=== PATIENT | female | born 1960 | race Caucasian/White ===

== ENCOUNTER 2017-04-22 14:30 | Outpatient (RCR) | payer MEDICARE, SELFPAY ==
[2017-03-31 00:57] VITALS: BP 109/81; PULSE 81; RESP 18; TEMP 36.2; BMI 41.1
[2017-04-01 14:43] VITALS: BP 139/79; PULSE 80; RESP 18; TEMP 36.9; BMI 41.1
--- NOTE | 2017-04-01 16:13 | PCM.WC.PN ---
(1) Non-pressure chronic ulcer of other part of right foot with necrosis of bone Status: Acute Current Visit: Yes Code(s): L97.514 - Non-pressure chronic ulcer of other part of right foot with necrosis of bone (2) Type 2 diabetes mellitus with foot ulcer Status: Acute Current Visit: Yes Qualifiers: Diabetes mellitus equipment operator intermodal yard insulin use: unspecified equipment operator intermodal yard insulin use status Code(s): E11.621 - Type 2 diabetes mellitus with foot ulcer; L97.509 - Non-pressure chronic ulcer of other part of unspecified foot with unspecified severity (3) Type 2 diabetes mellitus with diabetic peripheral angiopathy with gangrene Status: Chronic Current Visit: Yes Qualifiers: Diabetes mellitus equipment operator intermodal yard insulin use: unspecified equipment operator intermodal yard insulin use status Code(s): E11.52 - Type 2 diabetes mellitus with diabetic peripheral angiopathy with gangrene (4) Type 2 diabetes mellitus with diabetic polyneuropathy Status: Acute Current Visit: Yes Qualifiers: Diabetes mellitus half-way insulin use: unspecified equipment operator intermodal yard insulin use status Qualified Code(s): E11.42 - Type 2 diabetes mellitus with diabetic polyneuropathy Code(s): E11.42 - Type 2 diabetes mellitus with diabetic polyneuropathy Type of Wound Date of Service: 04/01/17 Chief Complaint: Ulcer R 5th toe, Arizmendi grade 4 History of Wound: Has been applying collagen hydrogel BID. Had angiogram with intervention by Dr. Robbins on , 01/09. She continues to smoke >1 pack of cigarettes per day, but states she is trying to reduce how much she smokes. Will not wear an open-toed shoe, but states she is offloading with a loose-fitting moccasin. Notes improvement. Saw infectious disease physician, he started her on clindamycin, but she has stopped taking it due to yeast infection. She has not yet followed up with vascular surgery or ID--vascular surgery f/u scheduled for March. Still did not notify ID that she stopped taking clindamycin, and states she is not going back to his office. Cultures from last visit revealed staph epi only--no atbx given. Improved with no s/s of acute bacterial infection noted today. Progress of Wound: Improved. - Physical Exam Vital Signs Temp Pulse Resp BP 98.4 F 80 18 139/79 H 04/01/17 14:43 04/01/17 14:43 04/01/17 14:43 04/01/17 14:43 General: Alert, Oriented x3, Cooperative, No apparent distress Skin: Ulcer/ Wound - Tip of R 5th toe with no erythema, no malodor, no pus, no calor, no TTP. No clinical signs of acute bacterial infection noted. See nurse's wound assessment. Wound Measurements and Assessment - Nurse 1 - General Ulcer Measurement Start: 04/01/17 14:43 Freq: Status: Active Protocol: Activity Type Activity Date Activity User E-Sign Co-Sign Detail Recorded Client Recorded Date Recorded By Document 04/01/17 14:43 DL [id number] 04/01/17 14:47 DL 04/01/17 14:43 Wound Center Nurse 1 [Ulcer Assessment Protocol: WC.WD.LOC] #1 Right 5th Toe -Current Size (cm) - Length 0.2 -Current Size (cm) - Width 0.2 -Current Size (cm) - Depth 0.1 -Total Square Cm 0.04 -Photo Taken No -Exudate Amt None Present (0 %) -Wound Margin Thickened -Granulation Amt Small (1-33%) -Granulation Quality [place] -Necrosis Amt Large (67-100%) -Necrotic Tissue Type Adherent Slough -Structure Exposed N/A -Texture (Loly-wound Skin Appearance) No Abnormality -Moisture (Loly-wound Skin Appearance No Abnormality ) Dry/Scaly -Color (Loly-wound Skin Appearance) No Abnormality -Temperature (Loly-wound Skin No Abnormality Appearance) (Pt Warm) -Ulcer Cleansing Rinsed/ Irrigated with Saline -Foul Odor after Cleansing No -Anesthetic Used 4% Lidocaine Solution - Nurse 2 - General Ulcer CM Notes Start: 04/01/17 14:43 Freq: Status: Active Protocol: Activity Type Activity Date Activity User E-Sign Co-Sign Detail Recorded Client Recorded Date Recorded By Document 04/01/17 15:23 MW [id number] 04/01/17 15:25 MW 04/01/17 15:23 Wound Center Nurse 2 [Procedure/Treatment] -Time 15:23 -Correct Patient Yes -Correct Side, Site, Position Yes -Correct Procedure Yes -Procedure Performed Yes -Type of Procedure Debridement -Clinical Debridement Subcutaneous -Post Debridement Size (cm) - Length 0.3 -Post Debridement Size (cm) - Width 0.3 -Post Debridement Size (cm) - Depth 0.1 -Total Square Cm 0.09 -Wound/Ulcer Outcome Not Healed -Ulcer Cleansing Rinsed/ Irrigated with Saline -Foul Odor after Cleansing No -Bioengineered Tissue No -Cetacaine [place] No -Bleeding Controlled with Pressure -Treatment Response Procedure Tolerated Well [See Physician Procedure note for Specifics] Pain Scale: 0-10 Numeric [Pain] -Is Patient Pain Free? Yes Debridement Note Post-Debridement Measurements/Treatment WC - Nurse 2 - General Ulcer CM Notes Start: 04/01/17 14:43 Freq: Status: Active Protocol: Activity Type Activity Date Activity User E-Sign Co-Sign Detail Recorded Client Recorded Date Recorded By Document 04/01/17 15:23 MW [id number] 04/01/17 15:25 MW 04/01/17 15:23 Wound Center Nurse 2 #1 Right 5th Toe -Time 15:23 -Correct Patient Yes -Correct Side, Site, Position Yes -Correct Procedure Yes -Procedure Performed Yes -Type of Procedure Debridement -Clinical Debridement Subcutaneous -Post Debridement Size (cm) - Length 0.3 -Post Debridement Size (cm) - Width 0.3 -Post Debridement Size (cm) - Depth 0.1 -Total Square Cm 0.09 -Wound/Ulcer Outcome Not Healed -Ulcer Cleansing Rinsed/ Irrigated with Saline -Foul Odor after Cleansing No -Bioengineered Tissue No -Cetacaine [place] No -Bleeding Controlled with Pressure -Treatment Response Procedure Tolerated Well Pain Scale: 0-10 Numeric Is Patient Pain Free? Yes Wound debrided: R 5th toe Laterality: Right Wound Grade/Stage: Arizmendi grade 4 DFU Type of Debridement: Excisional debridement Anesthesia Used: 4% Lidocaine Solution Depth: Down to and including healthy tissue, in the subcutaneous layer Percentage of wound debrided: 100 Instrument Used: #15 blade Tissue Removed: fibrous slough, hyperkeratotic tissue Severity: Fat Layer Exposed Amount of bleeding with debridement: Mild Bleeding Controlled with: Pressure, Compression and gauze Patient tolerated procedure well Assessment/Plan Active Problems 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) Type 2 diabetes mellitus with foot ulcer (Acute) Non-pressure chronic ulcer of other part of right foot with necrosis of bone (Acute) Type 2 diabetes mellitus with diabetic polyneuropathy (Acute) Assessment: See diagnoses. Plan: SQ/Excisional debridement R 5th toe ulcer performed today as above. Advised that she notify Dr. Trammell's office that she stopped taking atbx. Smoking cessation has been recommended. Weight loss has been recommended. She has been advised to collaborate with her primary care physician to discuss weight loss options as well as quitting smoking. Referral to rotary cutter/dietitan provided previously--pt has heard from them, but states she did not schedule an appointment yet due to money concerns. Underwent revascularization procedure by Dr. Robbins (01/09). Improved. Cont collagen hydrogel BID followed by dry gauze dressing. Recommend offloading with open-toed surgical shoe, but pt refuses to do this.
--- NOTE | 2017-04-01 16:18 | PN.PCM_ITS ---
(1) Non-pressure chronic ulcer of other part of right foot with necrosis of bone Status: Acute Current Visit: Yes Code(s): L97.514 - Non-pressure chronic ulcer of other part of right foot with necrosis of bone (2) Type 2 diabetes mellitus with foot ulcer Status: Acute Current Visit: Yes Qualifiers: Diabetes mellitus ferry terminal agent insulin use: unspecified [place] insulin use status Code(s): E11.621 - Type 2 diabetes mellitus with foot ulcer; L97.509 - Non- pressure chronic ulcer of other part of unspecified foot with unspecified severity (3) Type 2 diabetes mellitus with diabetic peripheral angiopathy with gangrene Status: Chronic Current Visit: Yes Qualifiers: Diabetes mellitus detention insulin use: unspecified detention insulin use status Code(s): E11.52 - Type 2 diabetes mellitus with diabetic peripheral angiopathy with gangrene (4) Type 2 diabetes mellitus with diabetic polyneuropathy Status: Acute Current Visit: Yes Qualifiers: Diabetes mellitus ferry terminal agent insulin use: unspecified detention insulin use status Qualified Code(s): E11.42 - Type 2 diabetes mellitus with diabetic polyneuropathy Code(s): E11.42 - Type 2 diabetes mellitus with diabetic polyneuropathy Type of Wound Date of Service: 04/01/17 Chief Complaint: Ulcer R 5th toe, Arizmendi grade 4 History of Wound: Has been applying collagen hydrogel BID. Had angiogram with intervention by Dr. Robbins on , 01/09. She continues to smoke >1 pack of cigarettes per day, but states she is trying to reduce how much she smokes. Will not wear an open-toed shoe, but states she is offloading with a loose- fitting moccasin. Notes improvement. Saw infectious disease physician, he started her on clindamycin, but she has stopped taking it due to yeast infection. She has not yet followed up with vascular surgery or ID--vascular surgery f/u scheduled for March. Still did not notify ID that she stopped taking clindamycin, and states she is not going back to his office. Cultures from last visit revealed staph epi only--no atbx given. Improved with no s/s of acute bacterial infection noted today. Progress of Wound: Improved. - Physical Exam Vital Signs Temp Pulse Resp BP 98.4 F 80 18 139/79 H 04/01/17 14:43 04/01/17 14:43 04/01/17 14:43 04/01/17 14:43 General: Alert, Oriented x3, Cooperative, No apparent distress Skin: Ulcer/ Wound - Tip of R 5th toe with no erythema, no malodor, no pus, no calor, no TTP. No clinical signs of acute bacterial infection noted. See nurse 's wound assessment. Wound Measurements and Assessment - Nurse 1 - General Ulcer Measurement Start: 04/01/17 14:43 Freq: Status: Active Protocol: Activity Type Activity Date Activity User E-Sign Co-Sign Detail Recorded Client Recorded Date Recorded By Document 04/01/17 14:43 DL [id number] 04/01/17 14:47 DL 04/01/17 14:43 Wound Center Nurse 1 [Ulcer Assessment Protocol: WC.WD.LOC] #1 Right 5th Toe -Current Size (cm) - Length 0.2 -Current Size (cm) - Width 0.2 -Current Size (cm) - Depth 0.1 -Total Square Cm 0.04 -Photo Taken No -Exudate Amt None Present (0 %) -Wound Margin Thickened -Granulation Amt Small (1-33%) -Granulation Quality [place] -Necrosis Amt Large (67-100%) -Necrotic Tissue Type Adherent Slough -Structure Exposed N/A -Texture (Loly-wound Skin Appearance) No Abnormality -Moisture (Loly-wound Skin Appearance No Abnormality ) Dry/Scaly -Color (Loly-wound Skin Appearance) No Abnormality -Temperature (Loly-wound Skin No Abnormality Appearance) (Pt Warm) -Ulcer Cleansing Rinsed/ Irrigated with Saline -Foul Odor after Cleansing No -Anesthetic Used 4% Lidocaine Solution - Nurse 2 - General Ulcer CM Notes Start: 04/01/17 14:43 Freq: Status: Active Protocol: Activity Type Activity Date Activity User E-Sign Co-Sign Detail Recorded Client Recorded Date Recorded By Document 04/01/17 15:23 MW [id number] 04/01/17 15:25 MW 04/01/17 15:23 Wound Center Nurse 2 [Procedure/Treatment] -Time 15:23 -Correct Patient Yes -Correct Side, Site, Position Yes -Correct Procedure Yes -Procedure Performed Yes -Type of Procedure Debridement -Clinical Debridement Subcutaneous -Post Debridement Size (cm) - Length 0.3 -Post Debridement Size (cm) - Width 0.3 -Post Debridement Size (cm) - Depth 0.1 -Total Square Cm 0.09 -Wound/Ulcer Outcome Not Healed -Ulcer Cleansing Rinsed/ Irrigated with Saline -Foul Odor after Cleansing No -Bioengineered Tissue No -Cetacaine [place] No -Bleeding Controlled with Pressure -Treatment Response Procedure Tolerated Well [See Physician Procedure note for Specifics] Pain Scale: 0-10 Numeric [Pain] -Is Patient Pain Free? Yes Debridement Note Post-Debridement Measurements/Treatment WC - Nurse 2 - General Ulcer CM Notes Start: 04/01/17 14:43 Freq: Status: Active Protocol: Activity Type Activity Date Activity User E-Sign Co-Sign Detail Recorded Client Recorded Date Recorded By Document 04/01/17 15:23 MW [id number] 04/01/17 15:25 MW 04/01/17 15:23 Wound Center Nurse 2 #1 Right 5th Toe -Time 15:23 -Correct Patient Yes -Correct Side, Site, Position Yes -Correct Procedure Yes -Procedure Performed Yes -Type of Procedure Debridement -Clinical Debridement Subcutaneous -Post Debridement Size (cm) - Length 0.3 -Post Debridement Size (cm) - Width 0.3 -Post Debridement Size (cm) - Depth 0.1 -Total Square Cm 0.09 -Wound/Ulcer Outcome Not Healed -Ulcer Cleansing Rinsed/ Irrigated with Saline -Foul Odor after Cleansing No -Bioengineered Tissue No -Cetacaine [place] No -Bleeding Controlled with Pressure -Treatment Response Procedure Tolerated Well Pain Scale: 0-10 Numeric Is Patient Pain Free? Yes Wound debrided: R 5th toe Laterality: Right Wound Grade/Stage: Arizmendi grade 4 DFU Type of Debridement: Excisional debridement Anesthesia Used: 4% Lidocaine Solution Depth: Down to and including healthy tissue, in the subcutaneous layer Percentage of wound debrided: 100 Instrument Used: #15 blade Tissue Removed: fibrous slough, hyperkeratotic tissue Severity: Fat Layer Exposed Amount of bleeding with debridement: Mild Bleeding Controlled with: Pressure, Compression and gauze Patient tolerated procedure well Assessment/Plan Active Problems Type 2 diabetes mellitus with diabetic peripheral angiopathy with gangrene ( Chronic) Type 2 diabetes mellitus with foot ulcer (Acute) Non-pressure chronic ulcer of other part of right foot with necrosis of bone ( Acute) Type 2 diabetes mellitus with diabetic polyneuropathy (Acute) Assessment: See diagnoses. Plan: SQ/Excisional debridement R 5th toe ulcer performed today as above. Advised that she notify Dr. Trammell's office that she stopped taking atbx. Smoking cessation has been recommended. Weight loss has been recommended. She has been advised to collaborate with her primary care physician to discuss weight loss options as well as quitting smoking. Referral to safety technician/ [facility]itan provided previously--pt has heard from them, but states she did not schedule an appointment yet due to money concerns. Underwent revascularization procedure by Dr. Robbins (01/09). Improved. Cont collagen hydrogel BID followed by dry gauze dressing. Recommend offloading with open-toed surgical shoe, but pt refuses to do this.
[2017-04-08 14:18] VITALS: BP 109/74; PULSE 90; RESP 16; TEMP 36; BMI 41.1
--- NOTE | 2017-04-08 16:07 | PCM.WC.PN ---
(1) Non-pressure chronic ulcer of other part of right foot with necrosis of bone Status: Acute Current Visit: Yes Code(s): L97.514 - Non-pressure chronic ulcer of other part of right foot with necrosis of bone (2) Type 2 diabetes mellitus with foot ulcer Status: Acute Current Visit: Yes Qualifiers: Diabetes mellitus intermodal truck driver insulin use: unspecified intermodal truck driver insulin use status Code(s): E11.621 - Type 2 diabetes mellitus with foot ulcer; L97.509 - Non-pressure chronic ulcer of other part of unspecified foot with unspecified severity (3) Type 2 diabetes mellitus with diabetic peripheral angiopathy with gangrene Status: Chronic Current Visit: Yes Qualifiers: Diabetes mellitus intermodal truck driver insulin use: unspecified intermodal truck driver insulin use status Code(s): E11.52 - Type 2 diabetes mellitus with diabetic peripheral angiopathy with gangrene (4) Type 2 diabetes mellitus with diabetic polyneuropathy Status: Acute Current Visit: Yes Qualifiers: Diabetes mellitus penitentiary insulin use: unspecified intermodal truck driver insulin use status Qualified Code(s): E11.42 - Type 2 diabetes mellitus with diabetic polyneuropathy Code(s): E11.42 - Type 2 diabetes mellitus with diabetic polyneuropathy Type of Wound Date of Service: 04/08/17 Chief Complaint: Ulcer R 5th toe, Arizmendi grade 4 History of Wound: Has been applying collagen hydrogel BID. Had angiogram with intervention by Dr. Robbins on , 01/09. She continues to smoke >1 pack of cigarettes per day, but states she is trying to reduce how much she smokes. Will not wear an open-toed shoe, but states she is offloading with a loose-fitting moccasin. Notes no improvement this week. Saw infectious disease physician, he started her on clindamycin, but she has stopped taking it due to yeast infection. She has not yet followed up with vascular surgery or ID--vascular surgery f/u scheduled for March. Still did not notify ID that she stopped taking clindamycin, and states she is not going back to his office. Re-apply jaden, gently pack into wound, change 3 times weekly. Continue to apply collagen hydrogel BID. Progress of Wound: Stable. - Physical Exam Vital Signs Temp Pulse Resp BP 96.8 F L 90 16 109/74 04/08/17 14:18 04/08/17 14:18 04/08/17 14:18 04/08/17 14:18 Wound Measurements and Assessment - Nurse 1 - General Ulcer Measurement Start: 04/01/17 14:43 Freq: Status: Active Protocol: Activity Type Activity Date Activity User E-Sign Co-Sign Detail Recorded Client Recorded Date Recorded By Document 04/08/17 14:18 JF [id number] 04/08/17 14:19 JF 04/08/17 14:18 Wound Center Nurse 1 [Ulcer Assessment Protocol: IRON.WD.LOC] #1 Right 5th Toe -Combined with other wound No -Current Size (cm) - Length 0.3 -Current Size (cm) - Width 0.5 -Current Size (cm) - Depth 0.2 -Total Square Cm 0.15 -Photo Taken No -Epithelialization Medium 34-66% -Tunneling No -Undermining/Tunneling No -Circular Undermining No -Exudate Amt None Present (0 %) -Wound Margin Flat & Intact -Granulation Amt Medium (34-66%) -Granulation Quality [place] -Slough/Fibrin Yes -Necrosis Amt Small (1-33%) -Necrotic Tissue Type Adherent Slough -Structure Exposed N/A -Texture (Loly-wound Skin Appearance) Assessed Scarring -Moisture (Loly-wound Skin Appearance Assessed ) Dry/Scaly -Color (Loly-wound Skin Appearance) Assessed -Temperature (Loly-wound Skin No Abnormality Appearance) (Pt Warm) -Tenderness on Palpation (Loly-wound No Skin Appearance) -Ulcer Cleansing Rinsed/ Irrigated with Saline -Foul Odor after Cleansing No -Anesthetic Used 4% Lidocaine Solution [Edema Assessment] -Lower Limb Edema Present NA - Nurse 2 - General Ulcer CM Notes Start: 04/01/17 14:43 Freq: Status: Active Protocol: Activity Type Activity Date Activity User E-Sign Co-Sign Detail Recorded Client Recorded Date Recorded By Document 04/08/17 14:55 MW [id number] 04/08/17 14:56 MW 04/08/17 14:55 Wound Center Nurse 2 [Procedure/Treatment] #1 Right 5th Toe -Time 14:55 -Correct Patient Yes -Correct Side, Site, Position Yes -Correct Procedure Yes -Procedure Performed Yes -Type of Procedure Debridement -Clinical Debridement Subcutaneous -Post Debridement Size (cm) - Length 0.3 -Post Debridement Size (cm) - Width 0.3 -Post Debridement Size (cm) - Depth 0.1 -Total Square Cm 0.09 -Wound/Ulcer Outcome Not Healed -Ulcer Cleansing Rinsed/ Irrigated with Saline -Foul Odor after Cleansing No -Bioengineered Tissue No -Cetacaine [place] No -Bleeding Controlled with Pressure -Treatment Response Procedure Tolerated Well [See Physician Procedure note for Specifics] Pain Scale: 0-10 Numeric [Pain] -Is Patient Pain Free? No Debridement Note Post-Debridement Measurements/Treatment WC - Nurse 2 - General Ulcer CM Notes Start: 04/01/17 14:43 Freq: Status: Active Protocol: Activity Type Activity Date Activity User E-Sign Co-Sign Detail Recorded Client Recorded Date Recorded By Document 04/01/17 15:23 MW [id number] 04/01/17 15:25 MW Document 04/08/17 14:55 MW [id number] 04/08/17 14:56 MW 04/01/17 04/08/17 15:23 14:55 Wound Center Nurse 2 #1 Right 5th Toe -Time 15:23 14:55 -Correct Patient Yes Yes -Correct Side, Site, Position Yes Yes -Correct Procedure Yes Yes -Procedure Performed Yes Yes -Type of Procedure Debridement Debridement -Clinical Debridement Subcutaneous Subcutaneous -Post Debridement Size (cm) - Length 0.3 0.3 -Post Debridement Size (cm) - Width 0.3 0.3 -Post Debridement Size (cm) - Depth 0.1 0.1 -Total Square Cm 0.09 0.09 -Wound/Ulcer Outcome Not Healed Not Healed -Ulcer Cleansing Rinsed/ Rinsed/ Irrigated with Irrigated with Saline Saline -Foul Odor after Cleansing No No -Bioengineered Tissue No No -Cetacaine [place] No No -Bleeding Controlled with Pressure Pressure -Treatment Response Procedure Procedure Tolerated Well Tolerated Well Pain Scale: 0-10 Numeric Is Patient Pain Free? Yes No Assessment/Plan Active Problems 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) Type 2 diabetes mellitus with foot ulcer (Acute) Non-pressure chronic ulcer of other part of right foot with necrosis of bone (Acute) Type 2 diabetes mellitus with diabetic polyneuropathy (Acute) Assessment: See diagnoses. Plan: SQ/Excisional debridement R 5th toe ulcer performed today as above. Advised that she notify Dr. Trammell's office that she stopped taking atbx. Smoking cessation has been recommended. Weight loss has been recommended. She has been advised to collaborate with her primary care physician to discuss weight loss options as well as quitting smoking. Referral to screen vent binder/dietitan provided previously--pt has heard from them, but states she did not schedule an appointment yet due to money concerns. Underwent revascularization procedure by Dr. Robbins (01/09). Improved. Cont collagen hydrogel BID followed by dry gauze dressing. Recommend offloading with open-toed surgical shoe, but pt refuses to do this.
[2017-04-15 14:35] VITALS: BP 127/69; PULSE 79; RESP 20; TEMP 36.3; BMI 41.1
--- NOTE | 2017-04-15 15:31 | PN.PCM_ITS ---
(1) Non-pressure chronic ulcer of other part of right foot with necrosis of bone Status: Acute Current Visit: Yes Code(s): L97.514 - Non-pressure chronic ulcer of other part of right foot with necrosis of bone (2) Type 2 diabetes mellitus with foot ulcer Status: Acute Current Visit: Yes Qualifiers: Diabetes mellitus exterminator helper insulin use: unspecified half-way insulin use status Code(s): E11.621 - Type 2 diabetes mellitus with foot ulcer; L97.509 - Non- pressure chronic ulcer of other part of unspecified foot with unspecified severity (3) Type 2 diabetes mellitus with diabetic peripheral angiopathy with gangrene Status: Chronic Current Visit: Yes Qualifiers: Diabetes mellitus half-way insulin use: unspecified half-way insulin use status Code(s): E11.52 - Type 2 diabetes mellitus with diabetic peripheral angiopathy with gangrene (4) Type 2 diabetes mellitus with diabetic polyneuropathy Status: Acute Current Visit: Yes Qualifiers: Diabetes mellitus exterminator helper insulin use: unspecified half-way insulin use status Qualified Code(s): E11.42 - Type 2 diabetes mellitus with diabetic polyneuropathy Code(s): E11.42 - Type 2 diabetes mellitus with diabetic polyneuropathy Type of Wound Date of Service: 04/15/17 Chief Complaint: Ulcer R 5th toe, Arizmendi grade 4 History of Wound: Has been applying collagen hydrogel BID. Had angiogram with intervention by Dr. Robbins on , 01/09. She continues to smoke >1 pack of cigarettes per day, but states she is trying to reduce how much she smokes. Will not wear an open-toed shoe, but states she is offloading with a loose- fitting moccasin. Notes improvement this week. Saw infectious disease physician, he started her on clindamycin, but she has stopped taking it due to yeast infection. She has not yet followed up with vascular surgery or ID-- vascular surgery f/u scheduled for March. Still did not notify ID that she stopped taking clindamycin, and states she is not going back to his office despite my advice to do so. Re-apply jaden, gently pack into wound, change 3 times weekly. Continue to apply collagen hydrogel BID. Progress of Wound: Improved. - Physical Exam Vital Signs Temp Pulse Resp BP 97.3 F L 79 20 H 127/69 H 04/15/17 14:35 04/15/17 14:35 04/15/17 14:35 04/15/17 14:35 General: Alert, Oriented x3, Cooperative, No apparent distress Skin: Ulcer/ Wound - R 5th toe with no erythema, no calor, no purulent drainage , no malodor, no TTP of ulcer or rick-ulcer area. No clinical signs of acute bacterial infection noted. See wound/edema assessment below. Wound Measurements and Assessment WC - Nurse 1 - General Ulcer Measurement Start: 04/01/17 14:43 Freq: Status: Active Protocol: Activity Type Activity Date Activity User E-Sign Co-Sign Detail Recorded Client Recorded Date Recorded By Document 04/15/17 14:35 JF [id number] 04/15/17 14:42 JF 04/15/17 14:35 Wound Center Nurse 1 [Ulcer Assessment Protocol: IRON.WD.LOC] #1 Right 5th Toe -Combined with other wound No -Current Size (cm) - Length 0.1 -Current Size (cm) - Width 0.1 -Current Size (cm) - Depth 0.1 -Total Square Cm 0.01 -Photo Taken No -Epithelialization Large 67-100% -Tunneling No -Undermining/Tunneling No -Circular Undermining No -Exudate Amt None Present (0 %) -Wound Margin Flat & Intact -Granulation Amt Medium (34-66%) -Granulation Quality Red -Slough/Fibrin Yes -Necrosis Amt Small (1-33%) -Necrotic Tissue Type Adherent Slough -Structure Exposed N/A -Texture (Rick-wound Skin Appearance) Assessed -Moisture (Rick-wound Skin Appearance Assessed ) Dry/Scaly -Color (Rick-wound Skin Appearance) Not Assessed -Temperature (Rick-wound Skin No Abnormality Appearance) (Pt Warm) -Tenderness on Palpation (Rick-wound No Skin Appearance) -Ulcer Cleansing Rinsed/ Irrigated with Saline -Foul Odor after Cleansing No -Anesthetic Used 4% Lidocaine Solution [Edema Assessment] -Lower Limb Edema Present Yes -Right Calf (cm) 39.3 -Right Ankle (cm) 23.6 - Nurse 2 - General Ulcer CM Notes Start: 04/01/17 14:43 Freq: Status: Active Protocol: Activity Type Activity Date Activity User E-Sign Co-Sign Detail Recorded Client Recorded Date Recorded By Document 04/15/17 15:07 MW [id number] 04/15/17 15:08 MW 04/15/17 15:07 Wound Center Nurse 2 [Procedure/Treatment] #1 Right 5th Toe -Time 15:07 -Correct Patient Yes -Correct Side, Site, Position Yes -Correct Procedure Yes -Procedure Performed Yes -Type of Procedure Debridement -Clinical Debridement Subcutaneous -Post Debridement Size (cm) - Length 0.2 -Post Debridement Size (cm) - Width 0.2 -Post Debridement Size (cm) - Depth 0.1 -Total Square Cm 0.04 -Wound/Ulcer Outcome Not Healed -Ulcer Cleansing Rinsed/ Irrigated with Saline -Foul Odor after Cleansing No -Bioengineered Tissue No -Cetacaine [place] No -Bleeding Controlled with Pressure -Treatment Response Procedure Tolerated Well [See Physician Procedure note for Specifics] Pain Scale: 0-10 Numeric [Pain] -Is Patient Pain Free? Yes Debridement Note Post-Debridement Measurements/Treatment WC - Nurse 2 - General Ulcer CM Notes Start: 04/01/17 14:43 Freq: Status: Active Protocol: Activity Type Activity Date Activity User E-Sign Co-Sign Detail Recorded Client Recorded Date Recorded By Document 04/01/17 15:23 MW [id number] 04/01/17 15:25 MW Document 04/08/17 14:55 MW [id number] 04/08/17 14:56 MW Document 04/15/17 15:07 MW [id number] 04/15/17 15:08 MW 04/01/17 04/08/17 04/15/17 15:23 14:55 15:07 Wound Center Nurse 2 #1 Right 5th Toe -Time 15:23 14:55 15:07 -Correct Patient Yes Yes Yes -Correct Side, Site, Position Yes Yes Yes -Correct Procedure Yes Yes Yes -Procedure Performed Yes Yes Yes -Type of Procedure Debridement Debridement Debridement -Clinical Debridement Subcutaneous Subcutaneous Subcutaneous -Post Debridement Size (cm) - Length 0.3 0.3 0.2 -Post Debridement Size (cm) - Width 0.3 0.3 0.2 -Post Debridement Size (cm) - Depth 0.1 0.1 0.1 -Total Square Cm 0.09 0.09 0.04 -Wound/Ulcer Outcome Not Healed Not Healed Not Healed -Ulcer Cleansing Rinsed/ Rinsed/ Rinsed/ Irrigated with Irrigated with Irrigated with Saline Saline Saline -Foul Odor after Cleansing No No No -Bioengineered Tissue No No No -Cetacaine [place] No No No -Bleeding Controlled with Pressure Pressure Pressure -Treatment Response Procedure Procedure Procedure Tolerated Well Tolerated Well Tolerated Well Pain Scale: 0-10 Numeric Is Patient Pain Free? Yes No Yes Wound debrided: R 5th toe Laterality: Right Wound Grade/Stage: Arizmendi grade 4 DFU Type of Debridement: Selective debridement Anesthesia Used: 4% Lidocaine Solution Depth: Down to and including healthy tissue Percentage of wound debrided: 100 Instrument Used: 3mm curette Tissue Removed: fibrous slough Severity: Limited To Skin Breakdown Amount of bleeding with debridement: None Bleeding Controlled with: Pressure, Compression and gauze Patient tolerated procedure well Assessment/Plan Active Problems Type 2 diabetes mellitus with diabetic peripheral angiopathy with gangrene ( Chronic) Type 2 diabetes mellitus with foot ulcer (Acute) Non-pressure chronic ulcer of other part of right foot with necrosis of bone ( Acute) Type 2 diabetes mellitus with diabetic polyneuropathy (Acute) Assessment: See diagnoses. Plan: Selective/medical debridement R 5th toe ulcer performed today as above. Advised that she notify Dr. Trammell's office that she stopped taking atbx. Smoking cessation has been recommended. Weight loss has been recommended. She has been advised to collaborate with her primary care physician to discuss weight loss options as well as quitting smoking. Referral to auditor tax/ dietitan provided previously--pt has heard from them, but states she did not schedule an appointment yet due to money concerns. Underwent revascularization procedure by Dr. Robbins (01/09). Improved overall and improved this week. Cont collagen hydrogel BID followed by dry gauze dressing. Cont jaden to wound bed 3x/week as able. Recommend offloading with open-toed surgical shoe, but pt refuses to do this.
[2017-04-22 14:33] VITALS: BP 137/70; PULSE 77; RESP 20; TEMP 36.3; BMI 41.1
--- NOTE | 2017-04-22 15:45 | PCM.WC.PN ---
(1) Non-pressure chronic ulcer of other part of right foot with necrosis of bone Status: Acute Current Visit: Yes Code(s): L97.514 - Non-pressure chronic ulcer of other part of right foot with necrosis of bone (2) Type 2 diabetes mellitus with foot ulcer Status: Acute Current Visit: Yes Qualifiers: Diabetes mellitus care home insulin use: unspecified care home insulin use status Code(s): E11.621 - Type 2 diabetes mellitus with foot ulcer; L97.509 - Non-pressure chronic ulcer of other part of unspecified foot with unspecified severity (3) Type 2 diabetes mellitus with diabetic peripheral angiopathy with gangrene Status: Chronic Current Visit: Yes Qualifiers: Diabetes mellitus care home insulin use: unspecified intermediate card tender insulin use status Code(s): E11.52 - Type 2 diabetes mellitus with diabetic peripheral angiopathy with gangrene (4) Type 2 diabetes mellitus with diabetic polyneuropathy Status: Acute Current Visit: Yes Qualifiers: Diabetes mellitus care home insulin use: unspecified intermediate card tender insulin use status Qualified Code(s): E11.42 - Type 2 diabetes mellitus with diabetic polyneuropathy Code(s): E11.42 - Type 2 diabetes mellitus with diabetic polyneuropathy Type of Wound Date of Service: 04/22/17 Chief Complaint: Ulcer R 5th toe, Arizmendi grade 4 History of Wound: Has been applying collagen hydrogel BID. Had angiogram with intervention by Dr. Robbins on , 01/09. She continues to smoke >1 pack of cigarettes per day, but states she is trying to reduce how much she smokes. Will not wear an open-toed shoe, but states she is offloading with a loose-fitting moccasin. Notes ulcer appears to have healed this week. Saw infectious disease physician, he started her on clindamycin, but she has stopped taking it due to yeast infection. She has not yet followed up with ID--did see Dr. Robbins last week and he is not going to see her for 6 months, and noted at that time that her toe appeared healed. Still did not notify ID that she stopped taking clindamycin, and states she is not going back to his office despite my advice to do so. Progress of Wound: Healed. - Physical Exam Vital Signs Temp Pulse Resp BP 97.3 F L 77 20 H 137/70 H 04/22/17 14:33 04/22/17 14:33 04/22/17 14:33 04/22/17 14:33 General: Alert, Oriented x3, Cooperative, No apparent distress Skin: No breakdown, Ulcer/ Wound - previous ulceration R 5th toe covered with epithelial tissue and has healed. No redness, drainage, malodor, warmth, pain, or swelling. Wound Measurements and Assessment - Nurse 1 - General Ulcer Measurement Start: 04/01/17 14:43 Freq: Status: Active Protocol: Activity Type Activity Date Activity User E-Sign Co-Sign Detail Recorded Client Recorded Date Recorded By Document 04/22/17 14:33 DL [id number] 04/22/17 14:42 DL 04/22/17 14:33 Wound Center Nurse 1 [Ulcer Assessment Protocol: IRON.WD.LOC] #1 Right 5th Toe -Current Size (cm) - Length 0 -Current Size (cm) - Width 0 -Current Size (cm) - Depth 0 -Total Square Cm 0 -Photo Taken Yes -Exudate Amt None Present (0 %) -Wound Margin Flat & Intact -Granulation Amt Large (67-100%) -Granulation Quality Pale [place] -Necrosis Amt None Present (0 %) -Structure Exposed N/A -Texture (Loly-wound Skin Appearance) Scarring -Moisture (Loly-wound Skin Appearance Dry/Scaly ) -Color (Loly-wound Skin Appearance) No Abnormality -Temperature (Loly-wound Skin No Abnormality Appearance) (Pt Warm) -Tenderness on Palpation (Loly-wound No Skin Appearance) -Ulcer Cleansing Wound Cleanser -Foul Odor after Cleansing No -Anesthetic Used 4% Lidocaine Solution - Nurse 2 - General Ulcer CM Notes Start: 04/01/17 14:43 Freq: Status: Active Protocol: Activity Type Activity Date Activity User E-Sign Co-Sign Detail Recorded Client Recorded Date Recorded By Document 04/22/17 15:14 MW [id number] 04/22/17 15:16 MW 04/22/17 15:14 Wound Center Nurse 2 [Procedure/Treatment] -Time 15:14 -Correct Patient Yes -Correct Side, Site, Position Yes -Correct Procedure Yes -Procedure Performed No -Post Debridement Size (cm) - Length 0 -Post Debridement Size (cm) - Width 0 -Post Debridement Size (cm) - Depth 0 -Total Square Cm 0 -Wound/Ulcer Outcome Healed- Epithelialized -Ulcer Cleansing Not Cleansed -Foul Odor after Cleansing No -Bioengineered Tissue No -Cetacaine [place] No -Bleeding Controlled with NA -Treatment Response Procedure Tolerated Well [See Physician Procedure note for Specifics] Pain Scale: 0-10 Numeric [Pain] -Is Patient Pain Free? Yes Debridement Note Post-Debridement Measurements/Treatment WC - Nurse 2 - General Ulcer CM Notes Start: 04/01/17 14:43 Freq: Status: Active Protocol: Activity Type Activity Date Activity User E-Sign Co-Sign Detail Recorded Client Recorded Date Recorded By Document 04/01/17 15:23 MW [id number] 04/01/17 15:25 MW Document 04/08/17 14:55 MW [id number] 04/08/17 14:56 MW Document 04/15/17 15:07 MW [id number] 04/15/17 15:08 MW Document 04/22/17 15:14 MW [id number] 04/22/17 15:16 MW 04/01/17 04/08/17 04/15/17 15:23 14:55 15:07 Wound Center Nurse 2 #1 Right 5th Toe -Time 15:23 14:55 15:07 -Correct Patient Yes Yes Yes -Correct Side, Site, Position Yes Yes Yes -Correct Procedure Yes Yes Yes -Procedure Performed Yes Yes Yes -Type of Procedure Debridement Debridement Debridement -Clinical Debridement Subcutaneous Subcutaneous Subcutaneous -Post Debridement Size (cm) - Length 0.3 0.3 0.2 -Post Debridement Size (cm) - Width 0.3 0.3 0.2 -Post Debridement Size (cm) - Depth 0.1 0.1 0.1 -Total Square Cm 0.09 0.09 0.04 -Wound/Ulcer Outcome Not Healed Not Healed Not Healed -Ulcer Cleansing Rinsed/ Rinsed/ Rinsed/ Irrigated with Irrigated with Irrigated with Saline Saline Saline -Foul Odor after Cleansing No No No -Bioengineered Tissue No No No -Cetacaine [place] No No No -Bleeding Controlled with Pressure Pressure Pressure -Treatment Response Procedure Procedure Procedure Tolerated Well Tolerated Well Tolerated Well Pain Scale: 0-10 Numeric Is Patient Pain Free? Yes No Yes 04/22/17 15:14 Wound Center Nurse 2 #1 Right 5th Toe -Time 15:14 -Correct Patient Yes -Correct Side, Site, Position Yes -Correct Procedure Yes -Procedure Performed No -Type of Procedure -Clinical Debridement -Post Debridement Size (cm) - Length 0 -Post Debridement Size (cm) - Width 0 -Post Debridement Size (cm) - Depth 0 -Total Square Cm 0 -Wound/Ulcer Outcome Healed- Epithelialized -Ulcer Cleansing Not Cleansed -Foul Odor after Cleansing No -Bioengineered Tissue No -Cetacaine [place] No -Bleeding Controlled with NA -Treatment Response Procedure Tolerated Well Pain Scale: 0-10 Numeric Is Patient Pain Free? Yes No debridement was completed today Assessment/Plan Active Problems 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) Type 2 diabetes mellitus with foot ulcer (Acute) Non-pressure chronic ulcer of other part of right foot with necrosis of bone (Acute) Type 2 diabetes mellitus with diabetic polyneuropathy (Acute) Assessment: See diagnoses. Plan: Exam. A total of 15 minutes was spent [id number] with the patient, and over half of that time was spent on counseling, coordination of care, and discussing her diagnoses. Smoking cessation has been recommended. Weight loss has been recommended. She has been advised to collaborate with her primary care physician to discuss weight loss options as well as quitting smoking. Referral to railroad car cleaning supervisor/dietitan provided previously--pt has heard from them, but states she will no schedule an appointment due to money concerns. Underwent revascularization procedure by Dr. Robbins (01/09). Ulcer has healed. Stop previous dressings. Start protective ointment such as aquaphor BID to healed ulcer indefinitely. D/w pt that healed ulcers are fragile and prone to re-ulceration so she needs to protect the area well. F/u with community veterinary laboratory diagnostician for periodic diabetic foot exams, pt states she is going to see Dr. Weldon or Fascichristy. No wounds on the lower extremities, return here prn. Call wound center with questions regarding this healed ulcer.
--- NOTE | 2017-04-22 15:51 | PN.PCM_ITS ---
(1) Non-pressure chronic ulcer of other part of right foot with necrosis of bone Status: Acute Current Visit: Yes Code(s): L97.514 - Non-pressure chronic ulcer of other part of right foot with necrosis of bone (2) Type 2 diabetes mellitus with foot ulcer Status: Acute Current Visit: Yes Qualifiers: Diabetes mellitus jail insulin use: unspecified jail insulin use status Code(s): E11.621 - Type 2 diabetes mellitus with foot ulcer; L97.509 - Non- pressure chronic ulcer of other part of unspecified foot with unspecified severity (3) Type 2 diabetes mellitus with diabetic peripheral angiopathy with gangrene Status: Chronic Current Visit: Yes Qualifiers: Diabetes mellitus jail insulin use: unspecified jail insulin use status Code(s): E11.52 - Type 2 diabetes mellitus with diabetic peripheral angiopathy with gangrene (4) Type 2 diabetes mellitus with diabetic polyneuropathy Status: Acute Current Visit: Yes Qualifiers: Diabetes mellitus jail insulin use: unspecified jail insulin use status Qualified Code(s): E11.42 - Type 2 diabetes mellitus with diabetic polyneuropathy Code(s): E11.42 - Type 2 diabetes mellitus with diabetic polyneuropathy Type of Wound Date of Service: 04/22/17 Chief Complaint: Ulcer R 5th toe, Arizmendi grade 4 History of Wound: Has been applying collagen hydrogel BID. Had angiogram with intervention by Dr. Robbins on , 01/09. She continues to smoke >1 pack of cigarettes per day, but states she is trying to reduce how much she smokes. Will not wear an open-toed shoe, but states she is offloading with a loose- fitting moccasin. Notes ulcer appears to have healed this week. Saw infectious disease physician, he started her on clindamycin, but she has stopped taking it due to yeast infection. She has not yet followed up with ID-- did see Dr. Robbins last week and he is not going to see her for 6 months, and noted at that time that her toe appeared healed. Still did not notify ID that she stopped taking clindamycin, and states she is not going back to his office despite my advice to do so. Progress of Wound: Healed. - Physical Exam Vital Signs Temp Pulse Resp BP 97.3 F L 77 20 H 137/70 H 04/22/17 14:33 04/22/17 14:33 04/22/17 14:33 04/22/17 14:33 General: Alert, Oriented x3, Cooperative, No apparent distress Skin: No breakdown, Ulcer/ Wound - previous ulceration R 5th toe covered with epithelial tissue and has healed. No redness, drainage, malodor, warmth, pain, or swelling. Wound Measurements and Assessment - Nurse 1 - General Ulcer Measurement Start: 04/01/17 14:43 Freq: Status: Active Protocol: Activity Type Activity Date Activity User E-Sign Co-Sign Detail Recorded Client Recorded Date Recorded By Document 04/22/17 14:33 DL [id number] 04/22/17 14:42 DL 04/22/17 14:33 Wound Center Nurse 1 [Ulcer Assessment Protocol: IRON.WD.LOC] #1 Right 5th Toe -Current Size (cm) - Length 0 -Current Size (cm) - Width 0 -Current Size (cm) - Depth 0 -Total Square Cm 0 -Photo Taken Yes -Exudate Amt None Present (0 %) -Wound Margin Flat & Intact -Granulation Amt Large (67-100%) -Granulation Quality Pale [place] -Necrosis Amt None Present (0 %) -Structure Exposed N/A -Texture (Loly-wound Skin Appearance) Scarring -Moisture (Loly-wound Skin Appearance Dry/Scaly ) -Color (Loly-wound Skin Appearance) No Abnormality -Temperature (Loly-wound Skin No Abnormality Appearance) (Pt Warm) -Tenderness on Palpation (Loly-wound No Skin Appearance) -Ulcer Cleansing Wound Cleanser -Foul Odor after Cleansing No -Anesthetic Used 4% Lidocaine Solution - Nurse 2 - General Ulcer CM Notes Start: 04/01/17 14:43 Freq: Status: Active Protocol: Activity Type Activity Date Activity User E-Sign Co-Sign Detail Recorded Client Recorded Date Recorded By Document 04/22/17 15:14 MW [id number] 04/22/17 15:16 MW 04/22/17 15:14 Wound Center Nurse 2 [Procedure/Treatment] -Time 15:14 -Correct Patient Yes -Correct Side, Site, Position Yes -Correct Procedure Yes -Procedure Performed No -Post Debridement Size (cm) - Length 0 -Post Debridement Size (cm) - Width 0 -Post Debridement Size (cm) - Depth 0 -Total Square Cm 0 -Wound/Ulcer Outcome Healed- Epithelialized -Ulcer Cleansing Not Cleansed -Foul Odor after Cleansing No -Bioengineered Tissue No -Cetacaine [place] No -Bleeding Controlled with NA -Treatment Response Procedure Tolerated Well [See Physician Procedure note for Specifics] Pain Scale: 0-10 Numeric [Pain] -Is Patient Pain Free? Yes Debridement Note Post-Debridement Measurements/Treatment WC - Nurse 2 - General Ulcer CM Notes Start: 04/01/17 14:43 Freq: Status: Active Protocol: Activity Type Activity Date Activity User E-Sign Co-Sign Detail Recorded Client Recorded Date Recorded By Document 04/01/17 15:23 MW [id number] 04/01/17 15:25 MW Document 04/08/17 14:55 MW [id number] 04/08/17 14:56 MW Document 04/15/17 15:07 MW [id number] 04/15/17 15:08 MW Document 04/22/17 15:14 MW [id number] 04/22/17 15:16 MW 04/01/17 04/08/17 04/15/17 15:23 14:55 15:07 Wound Center Nurse 2 #1 Right 5th Toe -Time 15:23 14:55 15:07 -Correct Patient Yes Yes Yes -Correct Side, Site, Position Yes Yes Yes -Correct Procedure Yes Yes Yes -Procedure Performed Yes Yes Yes -Type of Procedure Debridement Debridement Debridement -Clinical Debridement Subcutaneous Subcutaneous Subcutaneous -Post Debridement Size (cm) - Length 0.3 0.3 0.2 -Post Debridement Size (cm) - Width 0.3 0.3 0.2 -Post Debridement Size (cm) - Depth 0.1 0.1 0.1 -Total Square Cm 0.09 0.09 0.04 -Wound/Ulcer Outcome Not Healed Not Healed Not Healed -Ulcer Cleansing Rinsed/ Rinsed/ Rinsed/ Irrigated with Irrigated with Irrigated with Saline Saline Saline -Foul Odor after Cleansing No No No -Bioengineered Tissue No No No -Cetacaine [place] No No No -Bleeding Controlled with Pressure Pressure Pressure -Treatment Response Procedure Procedure Procedure Tolerated Well Tolerated Well Tolerated Well Pain Scale: 0-10 Numeric Is Patient Pain Free? Yes No Yes 04/22/17 15:14 Wound Center Nurse 2 #1 Right 5th Toe -Time 15:14 -Correct Patient Yes -Correct Side, Site, Position Yes -Correct Procedure Yes -Procedure Performed No -Type of Procedure -Clinical Debridement -Post Debridement Size (cm) - Length 0 -Post Debridement Size (cm) - Width 0 -Post Debridement Size (cm) - Depth 0 -Total Square Cm 0 -Wound/Ulcer Outcome Healed- Epithelialized -Ulcer Cleansing Not Cleansed -Foul Odor after Cleansing No -Bioengineered Tissue No -Cetacaine [place] No -Bleeding Controlled with NA -Treatment Response Procedure Tolerated Well Pain Scale: 0-10 Numeric Is Patient Pain Free? Yes No debridement was completed today Assessment/Plan Active Problems Type 2 diabetes mellitus with diabetic peripheral angiopathy with gangrene ( Chronic) Type 2 diabetes mellitus with foot ulcer (Acute) Non-pressure chronic ulcer of other part of right foot with necrosis of bone ( Acute) Type 2 diabetes mellitus with diabetic polyneuropathy (Acute) Assessment: See diagnoses. Plan: Exam. A total of 15 minutes was spent [id number] with the patient, and over half of that time was spent on counseling, coordination of care, and discussing her diagnoses. Smoking cessation has been recommended. Weight loss has been recommended. She has been advised to collaborate with her primary care physician to discuss weight loss options as well as quitting smoking. Referral to insole tacker/dietitan provided previously--pt has heard from them, but states she will no schedule an appointment due to money concerns. Underwent revascularization procedure by Dr. Robbins (01/09). Ulcer has healed. Stop previous dressings. Start protective ointment such as aquaphor BID to healed ulcer indefinitely. D/w pt that healed ulcers are fragile and prone to re-ulceration so she needs to protect the area well. F/u with community advertising assistant for periodic diabetic foot exams, pt states she is going to see Dr. Weldon or Fascichristy. No wounds on the lower extremities, return here prn. Call wound center with questions regarding this healed ulcer.
== END 2017-04-30 23:59 ==
LOC: WC 14:30
PROVIDERS: Family Provider Internal Medicine; PCP Internal Medicine; Visit Provider Podiatrist Foot & Ankle Surgery
DX: E11.621 Type 2 diabetes mellitus with foot ulcer (principal); E11.52 Type 2 diabetes mellitus with diabetic peripheral angiopathy with gangrene; E11.42 Type 2 diabetes mellitus with diabetic polyneuropathy; F17.210 Nicotine dependence, cigarettes, uncomplicated; L97.511 Non-pressure chronic ulcer of other part of right foot limited to breakdown of skin
CPT/HCPCS: 11042; 97597; 99212; G0463

== ENCOUNTER → 2017-05-06 14:03 | Outpatient (CLI) | payer MEDICARE, SELFPAY ==
[2017-04-22 14:33] VITALS: BP 137/70; BMI 41.1
[2017-05-06 15:29] LABS: Absolute Lymphocyte Count 2.31 X10^3/ul (0.83-4.51); Absolute Neutrophil Count 5.4 X10^3/uL (2.0-7.7); Basophil# 0.03 X10^3/uL; Basophil% 0.3 % (0-1); Eosinophil# 0.23 X10^3/uL; Eosinophils% 2.6 % (0-5); Hemoglobin 13.6 g/dl (12.0-15.0); Lymphocyte # 2.31 X10^3/ul (4.0); Lymphocyte % 26.1 % (19-41); Mean Corp Hgb Conc 33.2 g/gl (32-36); Mean Corpuscular Hgb 29.6 pg (27.0-32.0); Mean Corpuscular Volume 89.1 fL (81-99); Mean Platelet Vol. 10.1 fl (6.2-12.0); Monocyte# 0.75 X10^3/uL; Monocyte% 8.5 % (0-10); Neutrophil # 5.44 X10^3/uL (2.7-7.7); Neutrophil % 61.6 % (47-70); Platelet Count 216 K/mm3 (150-450); RBC Distribution Width CV 14.7 % (11.6-14.6); RBC Distribution Width SD 47.6 fl (35.1-43.9); White Blood Count 8.8 K/mm3 (4.4-11.0)
[2017-05-06 15:30] LABS: POSITIVE COUNT NO; POSITIVE DIFFERENTIAL NO; POSITIVE MORPHOLOGY NO
[2017-05-06 15:43] LABS: ALB/GLOB Ratio 0.8 RATIO (0.9-2.4); AST(SGOT) 19 U/L (15-37); Alanine Aminotransfer ALT/SGPT 25 U/L (13-56); Albumin, Serum 3.5 g/dL (3.2-5.0); Alkaline Phosphatase 106 U/L (45-117); Anion Gap 11 (5-15); BUN 58 mg/dL (7-18); BUN/Creat Ratio 27.1 RATIO (10-20); Chloride 103 mmol/L (98-107); Creatinine, Serum 2.14 mg/dL (0.55-1.02); EST Glomerular Filtration Rate 25 mL/min (>60); Est Glom Filt Rate - Afr Amer 30 mL/min (>60); Globulin 4.2 g/dL (2.2-4.2); Glucose 193 mg/dL (74-106); Potassium 4.9 mmol/L (3.5-5.1); Protein, Total 7.7 g/dL (6.4-8.2); Sodium Level 133 mmol/L (136-145); Uric Acid 5.3 mg/dL (2.6-6.0)
== END ==
PROVIDERS: Family Provider Internal Medicine; PCP Internal Medicine; Visit Provider Internal Medicine Rheumatology
DX: M06.4 Inflammatory polyarthropathy (principal); M79.7 Fibromyalgia; M32.9 Systemic lupus erythematosus, unspecified; M10.9 Gout, unspecified; K76.0 Fatty (change of) liver, not elsewhere classified; I12.9 Hypertensive chronic kidney disease with stage 1 through stage 4 chronic kidney disease, or unspecified chronic kidney disease; E11.22 Type 2 diabetes mellitus with diabetic chronic kidney disease; N18.9 Chronic kidney disease, unspecified; G47.33 Obstructive sleep apnea (adult) (pediatric); I10 Essential (primary) hypertension; E78.5 Hyperlipidemia, unspecified; J44.9 Chronic obstructive pulmonary disease, unspecified
CPT/HCPCS: 36415; 80053; 84550; 85025

== ENCOUNTER → 2017-05-29 08:43 | Outpatient (CLI) | payer MEDICARE, SELFPAY ==
[2017-05-29 10:54] LABS: Cholesterol 266 mg/dL (200); High Density Lipoprotein 32 mg/dL; Triglycerides 650 mg/dL
[2017-05-29 11:07] LABS: Hemoglobin A1c 7.6 % (4.2-6.3)
== END ==
PROVIDERS: Family Provider Internal Medicine; PCP Internal Medicine; Visit Provider Internal Medicine
DX: E11.42 Type 2 diabetes mellitus with diabetic polyneuropathy (principal); E11.52 Type 2 diabetes mellitus with diabetic peripheral angiopathy with gangrene
CPT/HCPCS: 36415; 80061; 82043; 82570; 83036

== ENCOUNTER → 2017-06-09 14:25 | Outpatient (CLI) | payer MEDICARE, SELFPAY ==
[2017-06-09 15:57] LABS: Albumin, Serum 3.2 g/dL (3.2-5.0); BUN 42 mg/dL (7-18); BUN/Creat Ratio 23.2 RATIO (10-20); Chloride 106 mmol/L (98-107); Creatinine, Serum 1.81 mg/dL (0.55-1.02); EST Glomerular Filtration Rate 30 mL/min (>60); Est Glom Filt Rate - Afr Amer 37 mL/min (>60); Glucose 209 mg/dL (74-106); Magnesium 1.9 mg/dL (1.6-2.6); Phosphorus 4.3 mg/dL (2.5-4.9); Potassium 4.9 mmol/L (3.5-5.1); Sodium Level 138 mmol/L (136-145)
[2017-06-09 15:59] LABS: Hemoglobin A1c 7.7 % (4.2-6.3)
[2017-06-09 16:02] LABS: Vitamin D,25 Hydroxy 7.9 ng/mL (29.95-100.01)
[2017-06-09 16:17] LABS: PTHIN 127.6 pg/mL (18.4-80.1)
== END ==
PROVIDERS: Family Provider Internal Medicine; PCP Internal Medicine; Visit Provider Internal Medicine Nephrology
DX: E11.22 Type 2 diabetes mellitus with diabetic chronic kidney disease (principal); N18.3 Chronic kidney disease, stage 3 (moderate); E55.9 Vitamin D deficiency, unspecified
CPT/HCPCS: 36415; 80069; 82306; 83036; 83735; 83970

== ENCOUNTER → 2017-06-10 11:24 | Outpatient (CLI) | payer MEDICARE, SELFPAY ==
[2017-06-10 12:56] LABS: Protein, Urine (Random) 125.5 mg/dL (<11.9); Protein:Creat Ratio 2577 mg/g CRE (0-200)
== END ==
PROVIDERS: Family Provider Internal Medicine; PCP Internal Medicine; Visit Provider Internal Medicine Nephrology
DX: N18.3 Chronic kidney disease, stage 3 (moderate) (principal)
CPT/HCPCS: 82570; 84156

== ENCOUNTER 2017-06-24 13:30 | Outpatient (RCR) | payer MEDICARE, SELFPAY ==
[2017-06-10 15:28] VITALS: BP 133/70; PULSE 81; RESP 18; TEMP 37; BMI 38.7
--- NOTE | 2017-06-10 16:56 | PCM.WC.PN ---
(1) Non-pressure chronic ulcer of right heel and midfoot with fat layer exposed Status: Acute Current Visit: Yes Code(s): L97.412 - Non-pressure chronic ulcer of right heel and midfoot with fat layer exposed (2) Non-pressure chronic ulcer of left heel and midfoot with fat layer exposed Status: Acute Current Visit: Yes Code(s): L97.422 - Non-pressure chronic ulcer of left heel and midfoot with fat layer exposed (3) Diabetic foot ulcer associated with type 2 diabetes mellitus Status: Acute Current Visit: Yes Code(s): E11.621 - Type 2 diabetes mellitus with foot ulcer; L97.509 - Non-pressure chronic ulcer of other part of unspecified foot with unspecified severity (4) Type 2 diabetes mellitus with diabetic polyneuropathy Status: Chronic Current Visit: Yes Qualifiers: Diabetes mellitus group home insulin use: unspecified group home insulin use status Qualified Code(s): E11.42 - Type 2 diabetes mellitus with diabetic polyneuropathy Code(s): E11.42 - Type 2 diabetes mellitus with diabetic polyneuropathy Type of Wound Date of Service: 06/10/17 Chief Complaint: Bilateral heel ulcers History of Wound: 57 year old woman with recently healed R 5th toe ulceration presents with new ulcerations on both heels present for about 3 weeks. She is unsure how they started. She has avoided coming here due to medical bills. Denies pus, malodor, warmth, pain, swelling. Admits to peeling skin off of her right heel after the ulcer started. Denies N/V/F/C. C/o chest pain today, and we recommended an ambulance, but the patient adamately refused. She states she has been having similar chest pain since last night, and she will go to the ED after she leaves here. Progress of Wound: new ulcers - Physical Exam Vital Signs Temp Pulse Resp BP 98.6 F 81 18 133/70 H 06/10/17 15:28 06/10/17 15:28 06/10/17 15:28 06/10/17 15:28 General: Alert, Oriented x3, Cooperative, No apparent distress Abdomen: Obese Extremities: No clubbing, No cyanosis, No edema, Capillary Refill Less than 3 Seconds, No Calf Tenderness, Diminished Peripheral Pulses Skin: Ulcer/ Wound - R plantar and posterior heel and L plantar midfoot just distal to the heel with no erythema, no malodor, no pus, no calor. No clinical signs of acute bacterial infection noted. See nurses wound/edema assessment below. Wound Measurements and Assessment WC - Nurse 1 - General Ulcer Measurement Start: 06/10/17 15:28 Freq: Status: Active Protocol: Activity Type Activity Date Activity User E-Sign Co-Sign Detail Recorded Client Recorded Date Recorded By Document 06/10/17 15:28 DV [id number] 06/10/17 15:39 DV 06/10/17 15:28 Wound Center Nurse 1 [Ulcer Assessment] #4 LEFT MEDIAL HEEL -Combined with other wound No -Current Size (cm) - Length 0.5 -Current Size (cm) - Width 1.0 -Current Size (cm) - Depth 0.4 -Total Square Cm 0.50 -Date of Last Picture (Recall this 06/10/17 field) -Photo Taken Yes -Epithelialization None Present -Tunneling No -Undermining/Tunneling No -Circular Undermining No -Classification - Arizmendi Grading ( Grade 1 Diabetic Ulcer) -Change in Wound Grade/Stage No Query Text:If change please identify the Stage/Grade in the comment (ie. S2 G3) -Exudate Amt None Present (0 %) -Wound Margin Distinct, Outline Attached -Granulation Amt None Present (0 %) -Granulation Quality N/A -Slough/Fibrin Yes -Necrosis Amt Large (67-100%) -Necrotic Tissue Type Adherent Slough -Structure Exposed None/Limited to Skin Breakdown -Texture (Loly-wound Skin Appearance) Assessed Callus Scarring -Moisture (Loly-wound Skin Appearance No Abnormality ) Assessed -Color (Loly-wound Skin Appearance) Assessed -Temperature (Loly-wound Skin No Abnormality Appearance) (Pt Warm) -Tenderness on Palpation (Loly-wound No Skin Appearance) -Ulcer Cleansing Wound Cleanser -Foul Odor after Cleansing No -Anesthetic Used 4% Lidocaine Solution #3 RIGHT HEEL -Combined with other wound No -Current Size (cm) - Length 3.0 -Current Size (cm) - Width 3.0 -Current Size (cm) - Depth 0.2 -Total Square Cm 9.00 -Date of Last Picture (Recall this 06/10/17 field) -Photo Taken Yes -Epithelialization None Present -Tunneling No -Undermining/Tunneling No -Circular Undermining No -Classification - Arizmendi Grading ( Grade 1 Diabetic Ulcer) -Exudate Amt None Present (0 %) -Wound Margin Distinct, Outline Attached -Granulation Amt None Present (0 %) -Granulation Quality N/A -Slough/Fibrin Yes -Necrosis Amt Large (67-100%) -Necrotic Tissue Type Adherent Slough -Structure Exposed None/Limited to Skin Breakdown -Texture (Loly-wound Skin Appearance) Assessed Scarring -Moisture (Loly-wound Skin Appearance Assessed ) Dry/Scaly -Color (Loly-wound Skin Appearance) Assessed Erythema -Temperature (Loly-wound Skin No Abnormality Appearance) (Pt Warm) -Tenderness on Palpation (Loly-wound No Skin Appearance) -Ulcer Cleansing Wound Cleanser -Foul Odor after Cleansing No -Anesthetic Used 4% Lidocaine Solution [Edema Assessment] -Lower Limb Edema Present No WC - Nurse 2 - General Ulcer CM Notes Start: 06/10/17 15:28 Freq: Status: Active Protocol: Activity Type Activity Date Activity User E-Sign Co-Sign Detail Recorded Client Recorded Date Recorded By Document 06/10/17 16:11 MW [id number] 06/10/17 16:19 MW 06/10/17 16:11 Wound Center Nurse 2 [Procedure/Treatment] #4 LEFT MEDIAL HEEL -Time 16:12 -Correct Patient Yes -Correct Side, Site, Position Yes -Correct Procedure Yes -Procedure Performed Yes -Type of Procedure Debridement -Clinical Debridement Subcutaneous -Post Debridement Size (cm) - Length 0.7 -Post Debridement Size (cm) - Width 1.0 -Post Debridement Size (cm) - Depth 0.2 -Total Square Cm 0.70 -Wound/Ulcer Outcome Not Healed -Ulcer Cleansing Rinsed/ Irrigated with Saline -Foul Odor after Cleansing No -Bioengineered Tissue No -Bleeding Controlled with Pressure -Treatment Response Procedure Tolerated Well #3 RIGHT HEEL -Time 16:13 -Correct Patient Yes -Correct Side, Site, Position Yes -Correct Procedure Yes -Procedure Performed Yes -Type of Procedure Debridement -Clinical Debridement Subcutaneous -Post Debridement Size (cm) - Length 5.5 -Post Debridement Size (cm) - Width 3.0 -Post Debridement Size (cm) - Depth 0.2 -Total Square Cm 16.50 -Wound/Ulcer Outcome Not Healed -Ulcer Cleansing Rinsed/ Irrigated with Saline -Foul Odor after Cleansing No -Bioengineered Tissue No -Bleeding Controlled with Pressure -Treatment Response Procedure Tolerated Well [See Physician Procedure note for Specifics] Pain Scale: 0-10 Numeric [Pain] -Is Patient Pain Free? No Debridement Note Post-Debridement Measurements/Treatment WC - Nurse 2 - General Ulcer CM Notes Start: 06/10/17 15:28 Freq: Status: Active Protocol: Activity Type Activity Date Activity User E-Sign Co-Sign Detail Recorded Client Recorded Date Recorded By Document 06/10/17 16:11 MW [id number] 06/10/17 16:19 MW 06/10/17 16:11 Wound Center Nurse 2 #4 LEFT MEDIAL HEEL -Time 16:12 -Correct Patient Yes -Correct Side, Site, Position Yes -Correct Procedure Yes -Procedure Performed Yes -Type of Procedure Debridement -Clinical Debridement Subcutaneous -Post Debridement Size (cm) - Length 0.7 -Post Debridement Size (cm) - Width 1.0 -Post Debridement Size (cm) - Depth 0.2 -Total Square Cm 0.70 -Wound/Ulcer Outcome Not Healed -Ulcer Cleansing Rinsed/ Irrigated with Saline -Foul Odor after Cleansing No -Bioengineered Tissue No -Bleeding Controlled with Pressure -Treatment Response Procedure Tolerated Well #3 RIGHT HEEL -Time 16:13 -Correct Patient Yes -Correct Side, Site, Position Yes -Correct Procedure Yes -Procedure Performed Yes -Type of Procedure Debridement -Clinical Debridement Subcutaneous -Post Debridement Size (cm) - Length 5.5 -Post Debridement Size (cm) - Width 3.0 -Post Debridement Size (cm) - Depth 0.2 -Total Square Cm 16.50 -Wound/Ulcer Outcome Not Healed -Ulcer Cleansing Rinsed/ Irrigated with Saline -Foul Odor after Cleansing No -Bioengineered Tissue No -Bleeding Controlled with Pressure -Treatment Response Procedure Tolerated Well Pain Scale: 0-10 Numeric Is Patient Pain Free? No Wound debrided: R heel Laterality: Right Wound Grade/Stage: Arizmendi grade 1 DFU Type of Debridement: Excisional debridement Anesthesia Used: 4% Lidocaine Solution Depth: Down to and including healthy tissue, in the subcutaneous layer Percentage of wound debrided: 100 Instrument Used: #15 blade Tissue Removed: fibrous slough, surrouding hyperkeratotic tissue Severity: Fat Layer Exposed Amount of bleeding with debridement: Mild Bleeding Controlled with: Pressure, Compression and gauze Patient tolerated procedure well - Additional Wound Wound debrided: Plantar L heel ulcer Laterality: Left Wound Grade/Stage: Arizmendi grade 1 DFU Type of Debridement: Excisional debridement Anesthesia Used: 4% Lidocaine Solution Depth: Down to and including healthy tissue, in the subcutaneous layer Percentage of wound debrided: 100 Instrument Used: #15 blade Tissue Removed: fibrous slough, surrouding hyperkeratotic tissue Severity: Fat Layer Exposed Amount of bleeding with debridement: Mild Bleeding Controlled with: Pressure, Compression and gauze Patient tolerated procedure: Patient tolerated procedure well Assessment/Plan Active Problems (Last Updated 05/27/17 @ 11:14 by Pamela Cantu) Non-pressure chronic ulcer of right heel and midfoot with fat layer exposed (Acute) Non-pressure chronic ulcer of left heel and midfoot with fat layer exposed (Acute) Diabetic foot ulcer associated with type 2 diabetes mellitus (Acute) Type 2 diabetes mellitus with diabetic polyneuropathy (Chronic) Assessment: See diagnoses. Plan: Exam. A total of 25 minutes was spent [id number] with the patient, and over half of that time was spent on counseling, coordination of care, and discussing her diagnoses. Smoking cessation has been recommended. Weight loss has been recommended. She has been advised to collaborate with her primary care physician to discuss weight loss options as well as quitting smoking. Referral to lock and dam equipment repairer/dietitan provided previously--pt has heard from them, but states she will no schedule an appointment due to money concerns. Underwent revascularization procedure by Dr. Robbins (01/09). Has new ulcerations on both heels. Pt states she will not pay for Santyl. Did well with jaden to the 5th toe previously--start jaden moistened with saline and gauze 3x/week. Rx rearfoot offloading shoe to be worn on RLE during ambulation, Rx prevalon heel offloading boot for RLE to be worn while resting or sleeping. Monitor for redness, pus, malodor, warmth, pain, swelling as well as N/V/F/C and go to the ED with these. Pt is going to the ED for chest pain after leaving wound care today. Discussed risk of infection which could lead to amputation in diabetics with open wounds on the lower extremities--pt states she is aware of this risk.
--- NOTE | 2017-06-10 17:03 | PN.PCM_ITS ---
(1) Non-pressure chronic ulcer of right heel and midfoot with fat layer exposed Status: Acute Current Visit: Yes Code(s): L97.412 - Non-pressure chronic ulcer of right heel and midfoot with fat layer exposed (2) Non-pressure chronic ulcer of left heel and midfoot with fat layer exposed Status: Acute Current Visit: Yes Code(s): L97.422 - Non-pressure chronic ulcer of left heel and midfoot with fat layer exposed (3) Diabetic foot ulcer associated with type 2 diabetes mellitus Status: Acute Current Visit: Yes Code(s): E11.621 - Type 2 diabetes mellitus with foot ulcer; L97.509 - Non-pressure chronic ulcer of other part of unspecified foot with unspecified severity (4) Type 2 diabetes mellitus with diabetic polyneuropathy Status: Chronic Current Visit: Yes Qualifiers: Diabetes mellitus correction insulin use: unspecified correction insulin use status Qualified Code(s): E11.42 - Type 2 diabetes mellitus with diabetic polyneuropathy Code(s): E11.42 - Type 2 diabetes mellitus with diabetic polyneuropathy Type of Wound Date of Service: 06/10/17 Chief Complaint: Bilateral heel ulcers History of Wound: 57 year old woman with recently healed R 5th toe ulceration presents with new ulcerations on both heels present for about 3 weeks. She is unsure how they started. She has avoided coming here due to medical bills. Denies pus, malodor, warmth, pain, swelling. Admits to peeling skin off of her right heel after the ulcer started. Denies N/V/F/C. C/o chest pain today, and we recommended an ambulance, but the patient adamately refused. She states she has been having similar chest pain since last night, and she will go to the ED after she leaves here. Progress of Wound: new ulcers - Physical Exam Vital Signs Temp Pulse Resp BP 98.6 F 81 18 133/70 H 06/10/17 15:28 06/10/17 15:28 06/10/17 15:28 06/10/17 15:28 General: Alert, Oriented x3, Cooperative, No apparent distress Abdomen: Obese Extremities: No clubbing, No cyanosis, No edema, Capillary Refill Less than 3 Seconds, No Calf Tenderness, Diminished Peripheral Pulses Skin: Ulcer/ Wound - R plantar and posterior heel and L plantar midfoot just distal to the heel with no erythema, no malodor, no pus, no calor. No clinical signs of acute bacterial infection noted. See nurse?s wound/edema assessment below. Wound Measurements and Assessment WC - Nurse 1 - General Ulcer Measurement Start: 06/10/17 15:28 Freq: Status: Active Protocol: Activity Type Activity Date Activity User E-Sign Co-Sign Detail Recorded Client Recorded Date Recorded By Document 06/10/17 15:28 DV [id number] 06/10/17 15:39 DV 06/10/17 15:28 Wound Center Nurse 1 [Ulcer Assessment] #4 LEFT MEDIAL HEEL -Combined with other wound No -Current Size (cm) - Length 0.5 -Current Size (cm) - Width 1.0 -Current Size (cm) - Depth 0.4 -Total Square Cm 0.50 -Date of Last Picture (Recall this 06/10/17 field) -Photo Taken Yes -Epithelialization None Present -Tunneling No -Undermining/Tunneling No -Circular Undermining No -Classification - Arizmendi Grading ( Grade 1 Diabetic Ulcer) -Change in Wound Grade/Stage No Query Text:If change please identify the Stage/Grade in the comment (ie. S2 G3) -Exudate Amt None Present (0 %) -Wound Margin Distinct, Outline Attached -Granulation Amt None Present (0 %) -Granulation Quality N/A -Slough/Fibrin Yes -Necrosis Amt Large (67-100%) -Necrotic Tissue Type Adherent Slough -Structure Exposed None/Limited to Skin Breakdown -Texture (Loly-wound Skin Appearance) Assessed Callus Scarring -Moisture (Loly-wound Skin Appearance No Abnormality ) Assessed -Color (Loly-wound Skin Appearance) Assessed -Temperature (Loly-wound Skin No Abnormality Appearance) (Pt Warm) -Tenderness on Palpation (Loly-wound No Skin Appearance) -Ulcer Cleansing Wound Cleanser -Foul Odor after Cleansing No -Anesthetic Used 4% Lidocaine Solution #3 RIGHT HEEL -Combined with other wound No -Current Size (cm) - Length 3.0 -Current Size (cm) - Width 3.0 -Current Size (cm) - Depth 0.2 -Total Square Cm 9.00 -Date of Last Picture (Recall this 06/10/17 field) -Photo Taken Yes -Epithelialization None Present -Tunneling No -Undermining/Tunneling No -Circular Undermining No -Classification - Arizmendi Grading ( Grade 1 Diabetic Ulcer) -Exudate Amt None Present (0 %) -Wound Margin Distinct, Outline Attached -Granulation Amt None Present (0 %) -Granulation Quality N/A -Slough/Fibrin Yes -Necrosis Amt Large (67-100%) -Necrotic Tissue Type Adherent Slough -Structure Exposed None/Limited to Skin Breakdown -Texture (Loly-wound Skin Appearance) Assessed Scarring -Moisture (Loly-wound Skin Appearance Assessed ) Dry/Scaly -Color (Loly-wound Skin Appearance) Assessed Erythema -Temperature (Loly-wound Skin No Abnormality Appearance) (Pt Warm) -Tenderness on Palpation (Loly-wound No Skin Appearance) -Ulcer Cleansing Wound Cleanser -Foul Odor after Cleansing No -Anesthetic Used 4% Lidocaine Solution [Edema Assessment] -Lower Limb Edema Present No WC - Nurse 2 - General Ulcer CM Notes Start: 06/10/17 15:28 Freq: Status: Active Protocol: Activity Type Activity Date Activity User E-Sign Co-Sign Detail Recorded Client Recorded Date Recorded By Document 06/10/17 16:11 MW [id number] 06/10/17 16:19 MW 06/10/17 16:11 Wound Center Nurse 2 [Procedure/Treatment] #4 LEFT MEDIAL HEEL -Time 16:12 -Correct Patient Yes -Correct Side, Site, Position Yes -Correct Procedure Yes -Procedure Performed Yes -Type of Procedure Debridement -Clinical Debridement Subcutaneous -Post Debridement Size (cm) - Length 0.7 -Post Debridement Size (cm) - Width 1.0 -Post Debridement Size (cm) - Depth 0.2 -Total Square Cm 0.70 -Wound/Ulcer Outcome Not Healed -Ulcer Cleansing Rinsed/ Irrigated with Saline -Foul Odor after Cleansing No -Bioengineered Tissue No -Bleeding Controlled with Pressure -Treatment Response Procedure Tolerated Well #3 RIGHT HEEL -Time 16:13 -Correct Patient Yes -Correct Side, Site, Position Yes -Correct Procedure Yes -Procedure Performed Yes -Type of Procedure Debridement -Clinical Debridement Subcutaneous -Post Debridement Size (cm) - Length 5.5 -Post Debridement Size (cm) - Width 3.0 -Post Debridement Size (cm) - Depth 0.2 -Total Square Cm 16.50 -Wound/Ulcer Outcome Not Healed -Ulcer Cleansing Rinsed/ Irrigated with Saline -Foul Odor after Cleansing No -Bioengineered Tissue No -Bleeding Controlled with Pressure -Treatment Response Procedure Tolerated Well [See Physician Procedure note for Specifics] Pain Scale: 0-10 Numeric [Pain] -Is Patient Pain Free? No Debridement Note Post-Debridement Measurements/Treatment WC - Nurse 2 - General Ulcer CM Notes Start: 06/10/17 15:28 Freq: Status: Active Protocol: Activity Type Activity Date Activity User E-Sign Co-Sign Detail Recorded Client Recorded Date Recorded By Document 06/10/17 16:11 MW [id number] 06/10/17 16:19 MW 06/10/17 16:11 Wound Center Nurse 2 #4 LEFT MEDIAL HEEL -Time 16:12 -Correct Patient Yes -Correct Side, Site, Position Yes -Correct Procedure Yes -Procedure Performed Yes -Type of Procedure Debridement -Clinical Debridement Subcutaneous -Post Debridement Size (cm) - Length 0.7 -Post Debridement Size (cm) - Width 1.0 -Post Debridement Size (cm) - Depth 0.2 -Total Square Cm 0.70 -Wound/Ulcer Outcome Not Healed -Ulcer Cleansing Rinsed/ Irrigated with Saline -Foul Odor after Cleansing No -Bioengineered Tissue No -Bleeding Controlled with Pressure -Treatment Response Procedure Tolerated Well #3 RIGHT HEEL -Time 16:13 -Correct Patient Yes -Correct Side, Site, Position Yes -Correct Procedure Yes -Procedure Performed Yes -Type of Procedure Debridement -Clinical Debridement Subcutaneous -Post Debridement Size (cm) - Length 5.5 -Post Debridement Size (cm) - Width 3.0 -Post Debridement Size (cm) - Depth 0.2 -Total Square Cm 16.50 -Wound/Ulcer Outcome Not Healed -Ulcer Cleansing Rinsed/ Irrigated with Saline -Foul Odor after Cleansing No -Bioengineered Tissue No -Bleeding Controlled with Pressure -Treatment Response Procedure Tolerated Well Pain Scale: 0-10 Numeric Is Patient Pain Free? No Wound debrided: R heel Laterality: Right Wound Grade/Stage: Arizmendi grade 1 DFU Type of Debridement: Excisional debridement Anesthesia Used: 4% Lidocaine Solution Depth: Down to and including healthy tissue, in the subcutaneous layer Percentage of wound debrided: 100 Instrument Used: #15 blade Tissue Removed: fibrous slough, surrouding hyperkeratotic tissue Severity: Fat Layer Exposed Amount of bleeding with debridement: Mild Bleeding Controlled with: Pressure, Compression and gauze Patient tolerated procedure well - Additional Wound Wound debrided: Plantar L heel ulcer Laterality: Left Wound Grade/Stage: Arizmendi grade 1 DFU Type of Debridement: Excisional debridement Anesthesia Used: 4% Lidocaine Solution Depth: Down to and including healthy tissue, in the subcutaneous layer Percentage of wound debrided: 100 Instrument Used: #15 blade Tissue Removed: fibrous slough, surrouding hyperkeratotic tissue Severity: Fat Layer Exposed Amount of bleeding with debridement: Mild Bleeding Controlled with: Pressure, Compression and gauze Patient tolerated procedure: Patient tolerated procedure well Assessment/Plan Active Problems (Last Updated 05/27/17 @ 11:14 by Pamela Cantu) Non-pressure chronic ulcer of right heel and midfoot with fat layer exposed ( Acute) Non-pressure chronic ulcer of left heel and midfoot with fat layer exposed ( Acute) Diabetic foot ulcer associated with type 2 diabetes mellitus (Acute) Type 2 diabetes mellitus with diabetic polyneuropathy (Chronic) Assessment: See diagnoses. Plan: Exam. A total of 25 minutes was spent [id number] with the patient, and over half of that time was spent on counseling, coordination of care, and discussing her diagnoses. Smoking cessation has been recommended. Weight loss has been recommended. She has been advised to collaborate with her primary care physician to discuss weight loss options as well as quitting smoking. Referral to program technician/dietitan provided previously--pt has heard from them, but states she will no schedule an appointment due to money concerns. Underwent revascularization procedure by Dr. Robbins (01/09). Has new ulcerations on both heels. Pt states she will not pay for Santyl. Did well with jaden to the 5th toe previously--start jaden moistened with saline and gauze 3x/week. Rx rearfoot offloading shoe to be worn on RLE during ambulation, Rx prevalon heel offloading boot for RLE to be worn while resting or sleeping. Monitor for redness, pus, malodor, warmth, pain, swelling as well as N/V/F/C and go to the ED with these. Pt is going to the ED for chest pain after leaving wound care today. Discussed risk of infection which could lead to amputation in diabetics with open wounds on the lower extremities--pt states she is aware of this risk.
[2017-06-17 13:27] VITALS: BP 122/69; PULSE 74; RESP 18; TEMP 37; BMI 38.7
--- NOTE | 2017-06-17 14:10 | PCM.WC.PN ---
(1) Non-pressure chronic ulcer of right heel and midfoot with fat layer exposed Status: Acute Current Visit: Yes Code(s): L97.412 - Non-pressure chronic ulcer of right heel and midfoot with fat layer exposed (2) Non-pressure chronic ulcer of left heel and midfoot with fat layer exposed Status: Acute Current Visit: Yes Code(s): L97.422 - Non-pressure chronic ulcer of left heel and midfoot with fat layer exposed (3) Diabetic foot ulcer associated with type 2 diabetes mellitus Status: Acute Current Visit: Yes Code(s): E11.621 - Type 2 diabetes mellitus with foot ulcer; L97.509 - Non-pressure chronic ulcer of other part of unspecified foot with unspecified severity (4) Type 2 diabetes mellitus with diabetic polyneuropathy Status: Chronic Current Visit: Yes Qualifiers: Diabetes mellitus senior care insulin use: unspecified senior care insulin use status Qualified Code(s): E11.42 - Type 2 diabetes mellitus with diabetic polyneuropathy Code(s): E11.42 - Type 2 diabetes mellitus with diabetic polyneuropathy Type of Wound Date of Service: 06/17/17 Chief Complaint: Bilateral heel ulcers History of Wound: 57 year old woman with recently healed R 5th toe ulceration presents with new ulcerations on both heels present for about 3 weeks. She is unsure how they started. She has avoided coming here due to medical bills. Denies pus, malodor, warmth, pain, swelling. Admits to peeling skin off of her right heel after the ulcer started. Denies N/V/F/C. C/o chest pain today, and we recommended an ambulance, but the patient adamately refused. She states she has been having similar chest pain since last night, and she will go to the ED after she leaves here. 06/17--Applying jaden and dry dressing every other day. Denies pus, malodor, warmth, pain. Denies N/V/F/C. Did not yet get CAM boot due to cost. She is wearing slippers, so we will fashion an offloading shoe made out of a surgical shoe today for her to wear until she is able to get the CAM boot. She continues to smoke tobacco against advice. Progress of Wound: R heel improved, L heel slightly larger - Physical Exam Vital Signs Temp Pulse Resp BP 98.6 F 74 18 122/69 H 06/17/17 13:27 06/17/17 13:27 06/17/17 13:27 06/17/17 13:27 General: Alert, Oriented x3, Cooperative, No apparent distress Skin: Ulcer/ Wound - R and L heels with no erythema, no malodor, no pus, no calor. No clinical signs of acute bacterial infection noted. See nurses wound/edema assessment below. Wound Measurements and Assessment WC - Nurse 1 - General Ulcer Measurement Start: 06/10/17 15:28 Freq: Status: Active Protocol: Activity Type Activity Date Activity User E-Sign Co-Sign Detail Recorded Client Recorded Date Recorded By Document 06/17/17 13:27 DL [id number] 06/17/17 13:37 DL 06/17/17 13:27 Wound Center Nurse 1 [Ulcer Assessment] #4 LEFT MEDIAL HEEL -Current Size (cm) - Length 0.9 -Current Size (cm) - Width 0.8 -Current Size (cm) - Depth 0.2 -Total Square Cm 0.72 -Photo Taken No -Exudate Amt None Present (0 %) -Wound Margin Thickened -Granulation Amt None Present (0 %) -Necrosis Amt Large (67-100%) -Necrotic Tissue Type Eschar -Structure Exposed N/A -Texture (Loly-wound Skin Appearance) Callus -Moisture (Loly-wound Skin Appearance Dry/Scaly ) -Color (Loly-wound Skin Appearance) No Abnormality -Temperature (Loly-wound Skin No Abnormality Appearance) (Pt Warm) -Ulcer Cleansing Wound Cleanser -Foul Odor after Cleansing No -Anesthetic Used 4% Lidocaine Solution #3 RIGHT HEEL -Current Size (cm) - Length 2.9 -Current Size (cm) - Width 2.8 -Current Size (cm) - Depth 0.1 -Total Square Cm 8.12 -Photo Taken No -Exudate Amt Medium (34-66%) -Exudate Type Serosanguineous -Wound Margin Thickened -Granulation Amt Small (1-33%) -Granulation Quality [place] -Necrosis Amt Large (67-100%) -Necrotic Tissue Type Adherent Slough -Structure Exposed N/A -Texture (Loly-wound Skin Appearance) Callus -Moisture (Loly-wound Skin Appearance Dry/Scaly ) -Color (Loly-wound Skin Appearance) No Abnormality -Temperature (Loly-wound Skin No Abnormality Appearance) (Pt Warm) -Ulcer Cleansing Wound Cleanser -Foul Odor after Cleansing No -Anesthetic Used 4% Lidocaine Solution [Edema Assessment] -Right Calf (cm) 39.6 -Right Ankle (cm) 25.2 -Left Calf (cm) 40 -Left Ankle (cm) 22.7 WC - Nurse 2 - General Ulcer CM Notes Start: 06/10/17 15:28 Freq: Status: Active Protocol: Activity Type Activity Date Activity User E-Sign Co-Sign Detail Recorded Client Recorded Date Recorded By Document 06/17/17 13:48 MW [id number] 06/17/17 13:53 MW 06/17/17 13:48 Wound Center Nurse 2 [Procedure/Treatment] #4 LEFT MEDIAL HEEL -Time 13:49 -Correct Patient Yes -Correct Side, Site, Position Yes -Correct Procedure Yes -Procedure Performed Yes -Type of Procedure Debridement -Clinical Debridement Subcutaneous -Post Debridement Size (cm) - Length 1.0 -Post Debridement Size (cm) - Width 1.1 -Post Debridement Size (cm) - Depth 0.2 -Total Square Cm 1.10 -Wound/Ulcer Outcome Not Healed -Ulcer Cleansing Rinsed/ Irrigated with Saline -Foul Odor after Cleansing No -Bioengineered Tissue No -Bleeding Controlled with Pressure -Treatment Response Procedure Tolerated Well #3 RIGHT HEEL -Time 13:49 -Correct Patient Yes -Correct Side, Site, Position Yes -Correct Procedure Yes -Procedure Performed Yes -Type of Procedure Debridement -Clinical Debridement Subcutaneous -Post Debridement Size (cm) - Length 2.1 -Post Debridement Size (cm) - Width 2.4 -Post Debridement Size (cm) - Depth 0.1 -Total Square Cm 5.04 -Wound/Ulcer Outcome Not Healed -Ulcer Cleansing Rinsed/ Irrigated with Saline -Foul Odor after Cleansing No -Bioengineered Tissue No -Bleeding Controlled with Pressure -Treatment Response Procedure Tolerated Well [See Physician Procedure note for Specifics] Pain Scale: 0-10 Numeric [Pain] -Is Patient Pain Free? Yes Debridement Note Post-Debridement Measurements/Treatment WC - Nurse 2 - General Ulcer CM Notes Start: 06/10/17 15:28 Freq: Status: Active Protocol: Activity Type Activity Date Activity User E-Sign Co-Sign Detail Recorded Client Recorded Date Recorded By Document 06/10/17 16:11 MW [id number] 06/10/17 16:19 MW Document 06/17/17 13:48 MW [id number] 06/17/17 13:53 MW 06/10/17 06/17/17 16:11 13:48 Wound Center Nurse 2 #4 LEFT MEDIAL HEEL -Time 16:12 13:49 -Correct Patient Yes Yes -Correct Side, Site, Position Yes Yes -Correct Procedure Yes Yes -Procedure Performed Yes Yes -Type of Procedure Debridement Debridement -Clinical Debridement Subcutaneous Subcutaneous -Post Debridement Size (cm) - Length 0.7 1.0 -Post Debridement Size (cm) - Width 1.0 1.1 -Post Debridement Size (cm) - Depth 0.2 0.2 -Total Square Cm 0.70 1.10 -Wound/Ulcer Outcome Not Healed Not Healed -Ulcer Cleansing Rinsed/ Rinsed/ Irrigated with Irrigated with Saline Saline -Foul Odor after Cleansing No No -Bioengineered Tissue No No -Bleeding Controlled with Pressure Pressure -Treatment Response Procedure Procedure Tolerated Well Tolerated Well #3 RIGHT HEEL -Time 16:13 13:49 -Correct Patient Yes Yes -Correct Side, Site, Position Yes Yes -Correct Procedure Yes Yes -Procedure Performed Yes Yes -Type of Procedure Debridement Debridement -Clinical Debridement Subcutaneous Subcutaneous -Post Debridement Size (cm) - Length 5.5 2.1 -Post Debridement Size (cm) - Width 3.0 2.4 -Post Debridement Size (cm) - Depth 0.2 0.1 -Total Square Cm 16.50 5.04 -Wound/Ulcer Outcome Not Healed Not Healed -Ulcer Cleansing Rinsed/ Rinsed/ Irrigated with Irrigated with Saline Saline -Foul Odor after Cleansing No No -Bioengineered Tissue No No -Bleeding Controlled with Pressure Pressure -Treatment Response Procedure Procedure Tolerated Well Tolerated Well Pain Scale: 0-10 Numeric Is Patient Pain Free? No Yes Wound debrided: R heel ulcer Laterality: Right Wound Grade/Stage: Arizmendi grade 1 full thickness DFU Type of Debridement: Excisional debridement Anesthesia Used: 4% Lidocaine Solution Depth: Down to and including healthy tissue, in the subcutaneous layer Percentage of wound debrided: 100 Instrument Used: 3mm curette Tissue Removed: fibrous slough, surrounding hyperkeratotic rim Severity: Fat Layer Exposed Amount of bleeding with debridement: Mild Bleeding Controlled with: Pressure, Compression and gauze Patient tolerated procedure well - Additional Wound Wound debrided: L heel Laterality: Left Wound Grade/Stage: Arizmendi grade 1 full thickness DFU Type of Debridement: Excisional debridement Anesthesia Used: 4% Lidocaine Solution Depth: Down to and including healthy tissue, in the subcutaneous layer Percentage of wound debrided: 100 Instrument Used: 3mm curette Tissue Removed: fibrous slough, surrounding hyperkeratotic rim Severity: Fat Layer Exposed Amount of bleeding with debridement: Mild Bleeding Controlled with: Pressure, Compression and gauze Patient tolerated procedure: Patient tolerated procedure well Assessment/Plan Active Problems (Last Updated 05/27/17 @ 11:14 by Pamela Cantu) Non-pressure chronic ulcer of right heel and midfoot with fat layer exposed (Acute) Non-pressure chronic ulcer of left heel and midfoot with fat layer exposed (Acute) Diabetic foot ulcer associated with type 2 diabetes mellitus (Acute) Type 2 diabetes mellitus with diabetic polyneuropathy (Chronic) Assessment: See diagnoses. Plan: SQ/excisional debridement of L and R heel ulcers as above. Smoking cessation has been recommended. Weight loss has been recommended. She has been advised to collaborate with her primary care physician to discuss weight loss options as well as quitting smoking. Referral to [facility] provided previously--pt has heard from them, but states she will no schedule an appointment due to money concerns. Underwent revascularization procedure by Dr. Robbins (01/09). Has new ulcerations on both heels. Pt states she will not pay for [facility]. Did well with jaden to the 5th toe previously--cont jaden moistened with saline and gauze 3x/week. Rx rearfoot offloading shoe to be worn on RLE during ambulation, Rx prevalon heel offloading boot for RLE to be worn while resting or sleeping. Made an offloading shoe for her today out of a regular surgical shoe with padding to be worn until she can get the offloading shoe or CAM boot. Monitor for redness, pus, malodor, warmth, pain, swelling as well as N/V/F/C and go to the ED with these. Pt is going to the ED for chest pain after leaving wound care today. Discussed risk of infection which could lead to amputation in diabetics with open wounds on the lower extremities--pt states she is aware of this risk.
--- NOTE | 2017-06-17 14:15 | PN.PCM_ITS ---
(1) Non-pressure chronic ulcer of right heel and midfoot with fat layer exposed Status: Acute Current Visit: Yes Code(s): L97.412 - Non-pressure chronic ulcer of right heel and midfoot with fat layer exposed (2) Non-pressure chronic ulcer of left heel and midfoot with fat layer exposed Status: Acute Current Visit: Yes Code(s): L97.422 - Non-pressure chronic ulcer of left heel and midfoot with fat layer exposed (3) Diabetic foot ulcer associated with type 2 diabetes mellitus Status: Acute Current Visit: Yes Code(s): E11.621 - Type 2 diabetes mellitus with foot ulcer; L97.509 - Non-pressure chronic ulcer of other part of unspecified foot with unspecified severity (4) Type 2 diabetes mellitus with diabetic polyneuropathy Status: Chronic Current Visit: Yes Qualifiers: Diabetes mellitus assisted insulin use: unspecified assisted insulin use status Qualified Code(s): E11.42 - Type 2 diabetes mellitus with diabetic polyneuropathy Code(s): E11.42 - Type 2 diabetes mellitus with diabetic polyneuropathy Type of Wound Date of Service: 06/17/17 Chief Complaint: Bilateral heel ulcers History of Wound: 57 year old woman with recently healed R 5th toe ulceration presents with new ulcerations on both heels present for about 3 weeks. She is unsure how they started. She has avoided coming here due to medical bills. Denies pus, malodor, warmth, pain, swelling. Admits to peeling skin off of her right heel after the ulcer started. Denies N/V/F/C. C/o chest pain today, and we recommended an ambulance, but the patient adamately refused. She states she has been having similar chest pain since last night, and she will go to the ED after she leaves here. 06/17--Applying jaden and dry dressing every other day. Denies pus, malodor, warmth, pain. Denies N/V/F/C. Did not yet get CAM boot due to cost. She is wearing slippers, so we will fashion an offloading shoe made out of a surgical shoe today for her to wear until she is able to get the CAM boot. She continues to smoke tobacco against advice. Progress of Wound: R heel improved, L heel slightly larger - Physical Exam Vital Signs Temp Pulse Resp BP 98.6 F 74 18 122/69 H 06/17/17 13:27 06/17/17 13:27 06/17/17 13:27 06/17/17 13:27 General: Alert, Oriented x3, Cooperative, No apparent distress Skin: Ulcer/ Wound - R and L heels with no erythema, no malodor, no pus, no calor. No clinical signs of acute bacterial infection noted. See nurse?s wound /edema assessment below. Wound Measurements and Assessment WC - Nurse 1 - General Ulcer Measurement Start: 06/10/17 15:28 Freq: Status: Active Protocol: Activity Type Activity Date Activity User E-Sign Co-Sign Detail Recorded Client Recorded Date Recorded By Document 06/17/17 13:27 DL [id number] 06/17/17 13:37 DL 06/17/17 13:27 Wound Center Nurse 1 [Ulcer Assessment] #4 LEFT MEDIAL HEEL -Current Size (cm) - Length 0.9 -Current Size (cm) - Width 0.8 -Current Size (cm) - Depth 0.2 -Total Square Cm 0.72 -Photo Taken No -Exudate Amt None Present (0 %) -Wound Margin Thickened -Granulation Amt None Present (0 %) -Necrosis Amt Large (67-100%) -Necrotic Tissue Type Eschar -Structure Exposed N/A -Texture (Loly-wound Skin Appearance) Callus -Moisture (Loly-wound Skin Appearance Dry/Scaly ) -Color (Loly-wound Skin Appearance) No Abnormality -Temperature (Loly-wound Skin No Abnormality Appearance) (Pt Warm) -Ulcer Cleansing Wound Cleanser -Foul Odor after Cleansing No -Anesthetic Used 4% Lidocaine Solution #3 RIGHT HEEL -Current Size (cm) - Length 2.9 -Current Size (cm) - Width 2.8 -Current Size (cm) - Depth 0.1 -Total Square Cm 8.12 -Photo Taken No -Exudate Amt Medium (34-66%) -Exudate Type Serosanguineous -Wound Margin Thickened -Granulation Amt Small (1-33%) -Granulation Quality [place] -Necrosis Amt Large (67-100%) -Necrotic Tissue Type Adherent Slough -Structure Exposed N/A -Texture (Loly-wound Skin Appearance) Callus -Moisture (Loly-wound Skin Appearance Dry/Scaly ) -Color (Loly-wound Skin Appearance) No Abnormality -Temperature (Loly-wound Skin No Abnormality Appearance) (Pt Warm) -Ulcer Cleansing Wound Cleanser -Foul Odor after Cleansing No -Anesthetic Used 4% Lidocaine Solution [Edema Assessment] -Right Calf (cm) 39.6 -Right Ankle (cm) 25.2 -Left Calf (cm) 40 -Left Ankle (cm) 22.7 IRON - Nurse 2 - General Ulcer CM Notes Start: 06/10/17 15:28 Freq: Status: Active Protocol: Activity Type Activity Date Activity User E-Sign Co-Sign Detail Recorded Client Recorded Date Recorded By Document 06/17/17 13:48 MW [id number] 06/17/17 13:53 MW 06/17/17 13:48 Wound Center Nurse 2 [Procedure/Treatment] #4 LEFT MEDIAL HEEL -Time 13:49 -Correct Patient Yes -Correct Side, Site, Position Yes -Correct Procedure Yes -Procedure Performed Yes -Type of Procedure Debridement -Clinical Debridement Subcutaneous -Post Debridement Size (cm) - Length 1.0 -Post Debridement Size (cm) - Width 1.1 -Post Debridement Size (cm) - Depth 0.2 -Total Square Cm 1.10 -Wound/Ulcer Outcome Not Healed -Ulcer Cleansing Rinsed/ Irrigated with Saline -Foul Odor after Cleansing No -Bioengineered Tissue No -Bleeding Controlled with Pressure -Treatment Response Procedure Tolerated Well #3 RIGHT HEEL -Time 13:49 -Correct Patient Yes -Correct Side, Site, Position Yes -Correct Procedure Yes -Procedure Performed Yes -Type of Procedure Debridement -Clinical Debridement Subcutaneous -Post Debridement Size (cm) - Length 2.1 -Post Debridement Size (cm) - Width 2.4 -Post Debridement Size (cm) - Depth 0.1 -Total Square Cm 5.04 -Wound/Ulcer Outcome Not Healed -Ulcer Cleansing Rinsed/ Irrigated with Saline -Foul Odor after Cleansing No -Bioengineered Tissue No -Bleeding Controlled with Pressure -Treatment Response Procedure Tolerated Well [See Physician Procedure note for Specifics] Pain Scale: 0-10 Numeric [Pain] -Is Patient Pain Free? Yes Debridement Note Post-Debridement Measurements/Treatment WC - Nurse 2 - General Ulcer CM Notes Start: 06/10/17 15:28 Freq: Status: Active Protocol: Activity Type Activity Date Activity User E-Sign Co-Sign Detail Recorded Client Recorded Date Recorded By Document 06/10/17 16:11 MW [id number] 06/10/17 16:19 MW Document 06/17/17 13:48 MW [id number] 06/17/17 13:53 MW 06/10/17 06/17/17 16:11 13:48 Wound Center Nurse 2 #4 LEFT MEDIAL HEEL -Time 16:12 13:49 -Correct Patient Yes Yes -Correct Side, Site, Position Yes Yes -Correct Procedure Yes Yes -Procedure Performed Yes Yes -Type of Procedure Debridement Debridement -Clinical Debridement Subcutaneous Subcutaneous -Post Debridement Size (cm) - Length 0.7 1.0 -Post Debridement Size (cm) - Width 1.0 1.1 -Post Debridement Size (cm) - Depth 0.2 0.2 -Total Square Cm 0.70 1.10 -Wound/Ulcer Outcome Not Healed Not Healed -Ulcer Cleansing Rinsed/ Rinsed/ Irrigated with Irrigated with Saline Saline -Foul Odor after Cleansing No No -Bioengineered Tissue No No -Bleeding Controlled with Pressure Pressure -Treatment Response Procedure Procedure Tolerated Well Tolerated Well #3 RIGHT HEEL -Time 16:13 13:49 -Correct Patient Yes Yes -Correct Side, Site, Position Yes Yes -Correct Procedure Yes Yes -Procedure Performed Yes Yes -Type of Procedure Debridement Debridement -Clinical Debridement Subcutaneous Subcutaneous -Post Debridement Size (cm) - Length 5.5 2.1 -Post Debridement Size (cm) - Width 3.0 2.4 -Post Debridement Size (cm) - Depth 0.2 0.1 -Total Square Cm 16.50 5.04 -Wound/Ulcer Outcome Not Healed Not Healed -Ulcer Cleansing Rinsed/ Rinsed/ Irrigated with Irrigated with Saline Saline -Foul Odor after Cleansing No No -Bioengineered Tissue No No -Bleeding Controlled with Pressure Pressure -Treatment Response Procedure Procedure Tolerated Well Tolerated Well Pain Scale: 0-10 Numeric Is Patient Pain Free? No Yes Wound debrided: R heel ulcer Laterality: Right Wound Grade/Stage: Arizmendi grade 1 full thickness DFU Type of Debridement: Excisional debridement Anesthesia Used: 4% Lidocaine Solution Depth: Down to and including healthy tissue, in the subcutaneous layer Percentage of wound debrided: 100 Instrument Used: 3mm curette Tissue Removed: fibrous slough, surrounding hyperkeratotic rim Severity: Fat Layer Exposed Amount of bleeding with debridement: Mild Bleeding Controlled with: Pressure, Compression and gauze Patient tolerated procedure well - Additional Wound Wound debrided: L heel Laterality: Left Wound Grade/Stage: Arizmendi grade 1 full thickness DFU Type of Debridement: Excisional debridement Anesthesia Used: 4% Lidocaine Solution Depth: Down to and including healthy tissue, in the subcutaneous layer Percentage of wound debrided: 100 Instrument Used: 3mm curette Tissue Removed: fibrous slough, surrounding hyperkeratotic rim Severity: Fat Layer Exposed Amount of bleeding with debridement: Mild Bleeding Controlled with: Pressure, Compression and gauze Patient tolerated procedure: Patient tolerated procedure well Assessment/Plan Active Problems (Last Updated 05/27/17 @ 11:14 by Pamela Cantu) Non-pressure chronic ulcer of right heel and midfoot with fat layer exposed ( Acute) Non-pressure chronic ulcer of left heel and midfoot with fat layer exposed ( Acute) Diabetic foot ulcer associated with type 2 diabetes mellitus (Acute) Type 2 diabetes mellitus with diabetic polyneuropathy (Chronic) Assessment: See diagnoses. Plan: SQ/excisional debridement of L and R heel ulcers as above. Smoking cessation has been recommended. Weight loss has been recommended. She has been advised to collaborate with her primary care physician to discuss weight loss options as well as quitting smoking. Referral to [facility] provided previously--pt has heard from them, but states she will no schedule an appointment due to money concerns. Underwent revascularization procedure by Dr. Robbins (01/09). Has new ulcerations on both heels. Pt states she will not pay for [place]. Did well with jaden to the 5th toe previously--cont jaden moistened with saline and gauze 3x/week. Rx rearfoot offloading shoe to be worn on RLE during ambulation, Rx prevalon heel offloading boot for RLE to be worn while resting or sleeping. Made an offloading shoe for her today out of a regular surgical shoe with padding to be worn until she can get the offloading shoe or CAM boot. Monitor for redness, pus, malodor, warmth, pain, swelling as well as N/V/F/C and go to the ED with these. Pt is going to the ED for chest pain after leaving wound care today. Discussed risk of infection which could lead to amputation in diabetics with open wounds on the lower extremities--pt states she is aware of this risk.
[2017-06-24 13:48] VITALS: BP 124/70; PULSE 74; RESP 18; TEMP 36.1; BMI 38.7
--- NOTE | 2017-06-24 15:19 | PCM.WC.PN ---
(1) Non-pressure chronic ulcer of right heel and midfoot with fat layer exposed Status: Acute Current Visit: Yes Code(s): L97.412 - Non-pressure chronic ulcer of right heel and midfoot with fat layer exposed (2) Non-pressure chronic ulcer of left heel and midfoot with fat layer exposed Status: Acute Current Visit: Yes Code(s): L97.422 - Non-pressure chronic ulcer of left heel and midfoot with fat layer exposed (3) Diabetic foot ulcer associated with type 2 diabetes mellitus Status: Acute Current Visit: Yes Code(s): E11.621 - Type 2 diabetes mellitus with foot ulcer; L97.509 - Non-pressure chronic ulcer of other part of unspecified foot with unspecified severity (4) Type 2 diabetes mellitus with diabetic polyneuropathy Status: Chronic Current Visit: Yes Qualifiers: Diabetes mellitus assisted insulin use: unspecified assisted insulin use status Qualified Code(s): E11.42 - Type 2 diabetes mellitus with diabetic polyneuropathy Code(s): E11.42 - Type 2 diabetes mellitus with diabetic polyneuropathy Type of Wound Date of Service: 06/24/17 Chief Complaint: Bilateral heel ulcers History of Wound: 57 year old woman with recently healed R 5th toe ulceration presents with new ulcerations on both heels present for about 3 weeks. She is unsure how they started. She has avoided coming here due to medical bills. Denies pus, malodor, warmth, pain, swelling. Admits to peeling skin off of her right heel after the ulcer started. Denies N/V/F/C. C/o chest pain today, and we recommended an ambulance, but the patient adamately refused. She states she has been having similar chest pain since last night, and she will go to the ED after she leaves here. 06/17--Applying jaden and dry dressing every other day. Denies pus, malodor, warmth, pain. Denies N/V/F/C. Did not yet get CAM boot due to cost. She is wearing slippers, so we will fashion an offloading shoe made out of a surgical shoe today for her to wear until she is able to get the CAM boot. She continues to smoke tobacco against advice. 06/24--Applying jaden and dry dressing every other day. Denies pus, malodor, warmth, pain. Denies N/V/F/C. Did not yet get CAM boot due to cost. She is wearing slippers with cutout paddin she made herself until she is able to get the CAM boot. She continues to smoke tobacco against advice. Progress of Wound: R heel improved in appearance, though measuring longer but narrower, L heel improved - Physical Exam Vital Signs Temp Pulse Resp BP 96.9 F L 74 18 124/70 H 06/24/17 13:48 06/24/17 13:48 06/24/17 13:48 06/24/17 13:48 General: Alert, Oriented x3, Cooperative, No apparent distress Skin: Ulcer/ Wound - R and L heels with no erythema, no pus, no malodor, no calor, no pain. No clinical signs of acute bacterial infection noted. See wound/edema assessment below. Wound Measurements and Assessment WC - Nurse 1 - General Ulcer Measurement Start: 06/10/17 15:28 Freq: Status: Active Protocol: Activity Type Activity Date Activity User E-Sign Co-Sign Detail Recorded Client Recorded Date Recorded By Document 06/24/17 13:48 [id number] 06/24/17 13:50 TM 06/24/17 13:48 Wound Center Nurse 1 [Ulcer Assessment] #4 LEFT MEDIAL HEEL -Combined with other wound No -Current Size (cm) - Length 0.5 -Current Size (cm) - Width 0.5 -Current Size (cm) - Depth 0.2 -Total Square Cm 0.25 -Photo Taken No -Epithelialization None Present -Tunneling No -Undermining/Tunneling No -Circular Undermining No -Classification - Thickness Full Thickness without Exposed Support Structure -Exudate Amt Small (1-33%) -Exudate Type Serosanguineous -Wound Margin Distinct, Outline Attached -Granulation Amt Large (67-100%) -Granulation Quality Pale -Slough/Fibrin Yes -Necrosis Amt Small (1-33%) -Necrotic Tissue Type Adherent Slough -Structure Exposed Fascia Fat Layer Exposed -Texture (Loly-wound Skin Appearance) Callus -Moisture (Loly-wound Skin Appearance Maceration ) -Color (Loly-wound Skin Appearance) Erythema -Temperature (Loly-wound Skin No Abnormality Appearance) (Pt Warm) -Tenderness on Palpation (Loly-wound No Skin Appearance) -Ulcer Cleansing Rinsed/ Irrigated with Saline -Foul Odor after Cleansing No -Anesthetic Used 4% Lidocaine Solution #3 RIGHT HEEL -Combined with other wound No -Current Size (cm) - Length 3.0 -Current Size (cm) - Width 2.6 -Current Size (cm) - Depth 0.2 -Total Square Cm 7.80 -Photo Taken No -Epithelialization None Present -Undermining/Tunneling No -Circular Undermining No -Classification - Thickness Full Thickness without Exposed Support Structure -Exudate Amt Medium (34-66%) -Exudate Type Serosanguineous -Wound Margin Distinct, Outline Attached -Granulation Amt Large (67-100%) -Granulation Quality Pale -Slough/Fibrin Yes -Necrosis Amt Small (1-33%) -Necrotic Tissue Type Adherent Slough -Structure Exposed Fascia Fat Layer Exposed -Texture (Loly-wound Skin Appearance) Callus Scarring -Moisture (Loly-wound Skin Appearance Maceration ) -Color (Loly-wound Skin Appearance) Erythema -Temperature (Loly-wound Skin No Abnormality Appearance) (Pt Warm) -Tenderness on Palpation (Loly-wound No Skin Appearance) -Ulcer Cleansing Rinsed/ Irrigated with Saline -Foul Odor after Cleansing No -Anesthetic Used 4% Lidocaine Solution [Edema Assessment] -Lower Limb Edema Present Yes -Right Calf (cm) 39.5 -Right Ankle (cm) 25.0 -Left Calf (cm) 39.0 -Left Ankle (cm) 22.0 WC - Nurse 2 - General Ulcer CM Notes Start: 06/10/17 15:28 Freq: Status: Active Protocol: Activity Type Activity Date Activity User E-Sign Co-Sign Detail Recorded Client Recorded Date Recorded By Document 06/24/17 14:07 MW [id number] 06/24/17 14:10 MW 06/24/17 14:07 Wound Center Nurse 2 [Procedure/Treatment] #4 LEFT MEDIAL HEEL -Time 14:07 -Correct Patient Yes -Correct Side, Site, Position Yes -Correct Procedure Yes -Procedure Performed Yes -Type of Procedure Debridement -Clinical Debridement Subcutaneous -Post Debridement Size (cm) - Length 0.6 -Post Debridement Size (cm) - Width 0.6 -Post Debridement Size (cm) - Depth 0.2 -Total Square Cm 0.36 -Wound/Ulcer Outcome Not Healed -Ulcer Cleansing Rinsed/ Irrigated with Saline -Foul Odor after Cleansing No -Bioengineered Tissue No -Bleeding Controlled with Pressure -Treatment Response Procedure Tolerated Well #3 RIGHT HEEL -Time 14:08 -Correct Patient Yes -Correct Side, Site, Position Yes -Correct Procedure Yes -Procedure Performed Yes -Type of Procedure Debridement -Clinical Debridement Subcutaneous -Post Debridement Size (cm) - Length 2.8 -Post Debridement Size (cm) - Width 2.3 -Post Debridement Size (cm) - Depth 0.1 -Total Square Cm 6.44 -Wound/Ulcer Outcome Not Healed -Ulcer Cleansing Rinsed/ Irrigated with Saline -Foul Odor after Cleansing No -Bioengineered Tissue No -Bleeding Controlled with Pressure -Treatment Response Procedure Tolerated Well [See Physician Procedure note for Specifics] Pain Scale: 0-10 Numeric [Pain] -Is Patient Pain Free? Yes Debridement Note Post-Debridement Measurements/Treatment WC - Nurse 2 - General Ulcer CM Notes Start: 06/10/17 15:28 Freq: Status: Active Protocol: Activity Type Activity Date Activity User E-Sign Co-Sign Detail Recorded Client Recorded Date Recorded By Document 06/10/17 16:11 MW [id number] 06/10/17 16:19 MW Document 06/17/17 13:48 MW [id number] 06/17/17 13:53 MW Document 06/24/17 14:07 MW [id number] 06/24/17 14:10 MW 06/10/17 06/17/17 06/24/17 16:11 13:48 14:07 Wound Center Nurse 2 #4 LEFT MEDIAL HEEL -Time 16:12 13:49 14:07 -Correct Patient Yes Yes Yes -Correct Side, Site, Position Yes Yes Yes -Correct Procedure Yes Yes Yes -Procedure Performed Yes Yes Yes -Type of Procedure Debridement Debridement Debridement -Clinical Debridement Subcutaneous Subcutaneous Subcutaneous -Post Debridement Size (cm) - Length 0.7 1.0 0.6 -Post Debridement Size (cm) - Width 1.0 1.1 0.6 -Post Debridement Size (cm) - Depth 0.2 0.2 0.2 -Total Square Cm 0.70 1.10 0.36 -Wound/Ulcer Outcome Not Healed Not Healed Not Healed -Ulcer Cleansing Rinsed/ Rinsed/ Rinsed/ Irrigated with Irrigated with Irrigated with Saline Saline Saline -Foul Odor after Cleansing No No No -Bioengineered Tissue No No No -Bleeding Controlled with Pressure Pressure Pressure -Treatment Response Procedure Procedure Procedure Tolerated Well Tolerated Well Tolerated Well #3 RIGHT HEEL -Time 16:13 13:49 14:08 -Correct Patient Yes Yes Yes -Correct Side, Site, Position Yes Yes Yes -Correct Procedure Yes Yes Yes -Procedure Performed Yes Yes Yes -Type of Procedure Debridement Debridement Debridement -Clinical Debridement Subcutaneous Subcutaneous Subcutaneous -Post Debridement Size (cm) - Length 5.5 2.1 2.8 -Post Debridement Size (cm) - Width 3.0 2.4 2.3 -Post Debridement Size (cm) - Depth 0.2 0.1 0.1 -Total Square Cm 16.50 5.04 6.44 -Wound/Ulcer Outcome Not Healed Not Healed Not Healed -Ulcer Cleansing Rinsed/ Rinsed/ Rinsed/ Irrigated with Irrigated with Irrigated with Saline Saline Saline -Foul Odor after Cleansing No No No -Bioengineered Tissue No No No -Bleeding Controlled with Pressure Pressure Pressure -Treatment Response Procedure Procedure Procedure Tolerated Well Tolerated Well Tolerated Well Pain Scale: 0-10 Numeric Is Patient Pain Free? No Yes Yes Wound debrided: R heel Laterality: Right Wound Grade/Stage: arizmendi grade 1 full thickness DFU Type of Debridement: Excisional debridement Anesthesia Used: 4% Lidocaine Solution Depth: Down to and including healthy tissue, in the subcutaneous layer Percentage of wound debrided: 100 Instrument Used: #15 blade Tissue Removed: fibrous slough, surrounding hyperkeratotic tissue Severity: Fat Layer Exposed Amount of bleeding with debridement: Mild Bleeding Controlled with: Pressure, Compression and gauze Patient tolerated procedure well - Additional Wound Wound debrided: L heel Laterality: Left Wound Grade/Stage: Arizmendi grade 1 full thickness DFU Type of Debridement: Excisional debridement Anesthesia Used: 4% Lidocaine Solution Depth: Down to and including healthy tissue, in the subcutaneous layer Percentage of wound debrided: 100 Instrument Used: #15 blade Tissue Removed: fibrous slough, surrounding hyperkeratotic tissue Severity: Fat Layer Exposed Amount of bleeding with debridement: Mild Bleeding Controlled with: Pressure, Compression and gauze Patient tolerated procedure: Patient tolerated procedure well Assessment/Plan Active Problems (Last Reviewed 06/24/17 @ 11:41 by Pamela Cantu) Non-pressure chronic ulcer of right heel and midfoot with fat layer exposed (Acute) Non-pressure chronic ulcer of left heel and midfoot with fat layer exposed (Acute) Diabetic foot ulcer associated with type 2 diabetes mellitus (Acute) Type 2 diabetes mellitus with diabetic polyneuropathy (Chronic) Assessment: See diagnoses. Plan: SQ/excisional debridement of L and R heel ulcers as above. Smoking cessation has been recommended. Weight loss has been recommended. She has been advised to collaborate with her primary care physician to discuss weight loss options as well as quitting smoking. Referral to [facility] provided previously--pt has heard from them, but states she will no schedule an appointment due to money concerns. Underwent revascularization procedure by Dr. Robbins (01/09). Has new ulcerations on both heels. Pt states she will not pay for [employer]. Did well with jaden to the 5th toe previously--cont jaden moistened with saline and gauze 3x/week. Rx rearfoot offloading shoe as well as CAM boot previously (whichever is less expensive) to be worn on RLE during ambulation, Rx prevalon heel offloading boot for RLE to be worn while resting or sleeping. Made an offloading shoe for her today out of a regular surgical shoe with padding to be worn until she can get the offloading shoe or CAM boot. Monitor for redness, pus, malodor, warmth, pain, swelling as well as N/V/F/C and go to the ED with these. Pt is going to the ED for chest pain after leaving wound care today. Discussed risk of infection which could lead to amputation in diabetics with open wounds on the lower extremities--pt states she is aware of this risk.
--- NOTE | 2017-06-24 15:29 | PN.PCM_ITS ---
(1) Non-pressure chronic ulcer of right heel and midfoot with fat layer exposed Status: Acute Current Visit: Yes Code(s): L97.412 - Non-pressure chronic ulcer of right heel and midfoot with fat layer exposed (2) Non-pressure chronic ulcer of left heel and midfoot with fat layer exposed Status: Acute Current Visit: Yes Code(s): L97.422 - Non-pressure chronic ulcer of left heel and midfoot with fat layer exposed (3) Diabetic foot ulcer associated with type 2 diabetes mellitus Status: Acute Current Visit: Yes Code(s): E11.621 - Type 2 diabetes mellitus with foot ulcer; L97.509 - Non-pressure chronic ulcer of other part of unspecified foot with unspecified severity (4) Type 2 diabetes mellitus with diabetic polyneuropathy Status: Chronic Current Visit: Yes Qualifiers: Diabetes mellitus fci insulin use: unspecified fci insulin use status Qualified Code(s): E11.42 - Type 2 diabetes mellitus with diabetic polyneuropathy Code(s): E11.42 - Type 2 diabetes mellitus with diabetic polyneuropathy Type of Wound Date of Service: 06/24/17 Chief Complaint: Bilateral heel ulcers History of Wound: 57 year old woman with recently healed R 5th toe ulceration presents with new ulcerations on both heels present for about 3 weeks. She is unsure how they started. She has avoided coming here due to medical bills. Denies pus, malodor, warmth, pain, swelling. Admits to peeling skin off of her right heel after the ulcer started. Denies N/V/F/C. C/o chest pain today, and we recommended an ambulance, but the patient adamately refused. She states she has been having similar chest pain since last night, and she will go to the ED after she leaves here. 06/17--Applying jaden and dry dressing every other day. Denies pus, malodor, warmth, pain. Denies N/V/F/C. Did not yet get CAM boot due to cost. She is wearing slippers, so we will fashion an offloading shoe made out of a surgical shoe today for her to wear until she is able to get the CAM boot. She continues to smoke tobacco against advice. 06/24--Applying jaden and dry dressing every other day. Denies pus, malodor, warmth, pain. Denies N/V/F/C. Did not yet get CAM boot due to cost. She is wearing slippers with cutout paddin she made herself until she is able to get the CAM boot. She continues to smoke tobacco against advice. Progress of Wound: R heel improved in appearance, though measuring longer but narrower, L heel improved - Physical Exam Vital Signs Temp Pulse Resp BP 96.9 F L 74 18 124/70 H 06/24/17 13:48 06/24/17 13:48 06/24/17 13:48 06/24/17 13:48 General: Alert, Oriented x3, Cooperative, No apparent distress Skin: Ulcer/ Wound - R and L heels with no erythema, no pus, no malodor, no calor, no pain. No clinical signs of acute bacterial infection noted. See wound/edema assessment below. Wound Measurements and Assessment WC - Nurse 1 - General Ulcer Measurement Start: 06/10/17 15:28 Freq: Status: Active Protocol: Activity Type Activity Date Activity User E-Sign Co-Sign Detail Recorded Client Recorded Date Recorded By Document 06/24/17 13:48 [id number] 06/24/17 13:50 TM 06/24/17 13:48 Wound Center Nurse 1 [Ulcer Assessment] #4 LEFT MEDIAL HEEL -Combined with other wound No -Current Size (cm) - Length 0.5 -Current Size (cm) - Width 0.5 -Current Size (cm) - Depth 0.2 -Total Square Cm 0.25 -Photo Taken No -Epithelialization None Present -Tunneling No -Undermining/Tunneling No -Circular Undermining No -Classification - Thickness Full Thickness without Exposed Support Structure -Exudate Amt Small (1-33%) -Exudate Type Serosanguineous -Wound Margin Distinct, Outline Attached -Granulation Amt Large (67-100%) -Granulation Quality Pale -Slough/Fibrin Yes -Necrosis Amt Small (1-33%) -Necrotic Tissue Type Adherent Slough -Structure Exposed Fascia Fat Layer Exposed -Texture (Loly-wound Skin Appearance) Callus -Moisture (Loly-wound Skin Appearance Maceration ) -Color (Loly-wound Skin Appearance) Erythema -Temperature (Loly-wound Skin No Abnormality Appearance) (Pt Warm) -Tenderness on Palpation (Loly-wound No Skin Appearance) -Ulcer Cleansing Rinsed/ Irrigated with Saline -Foul Odor after Cleansing No -Anesthetic Used 4% Lidocaine Solution #3 RIGHT HEEL -Combined with other wound No -Current Size (cm) - Length 3.0 -Current Size (cm) - Width 2.6 -Current Size (cm) - Depth 0.2 -Total Square Cm 7.80 -Photo Taken No -Epithelialization None Present -Undermining/Tunneling No -Circular Undermining No -Classification - Thickness Full Thickness without Exposed Support Structure -Exudate Amt Medium (34-66%) -Exudate Type Serosanguineous -Wound Margin Distinct, Outline Attached -Granulation Amt Large (67-100%) -Granulation Quality Pale -Slough/Fibrin Yes -Necrosis Amt Small (1-33%) -Necrotic Tissue Type Adherent Slough -Structure Exposed Fascia Fat Layer Exposed -Texture (Loly-wound Skin Appearance) Callus Scarring -Moisture (Loly-wound Skin Appearance Maceration ) -Color (Loly-wound Skin Appearance) Erythema -Temperature (Loly-wound Skin No Abnormality Appearance) (Pt Warm) -Tenderness on Palpation (Loly-wound No Skin Appearance) -Ulcer Cleansing Rinsed/ Irrigated with Saline -Foul Odor after Cleansing No -Anesthetic Used 4% Lidocaine Solution [Edema Assessment] -Lower Limb Edema Present Yes -Right Calf (cm) 39.5 -Right Ankle (cm) 25.0 -Left Calf (cm) 39.0 -Left Ankle (cm) 22.0 WC - Nurse 2 - General Ulcer CM Notes Start: 06/10/17 15:28 Freq: Status: Active Protocol: Activity Type Activity Date Activity User E-Sign Co-Sign Detail Recorded Client Recorded Date Recorded By Document 06/24/17 14:07 MW [id number] 06/24/17 14:10 MW 06/24/17 14:07 Wound Center Nurse 2 [Procedure/Treatment] #4 LEFT MEDIAL HEEL -Time 14:07 -Correct Patient Yes -Correct Side, Site, Position Yes -Correct Procedure Yes -Procedure Performed Yes -Type of Procedure Debridement -Clinical Debridement Subcutaneous -Post Debridement Size (cm) - Length 0.6 -Post Debridement Size (cm) - Width 0.6 -Post Debridement Size (cm) - Depth 0.2 -Total Square Cm 0.36 -Wound/Ulcer Outcome Not Healed -Ulcer Cleansing Rinsed/ Irrigated with Saline -Foul Odor after Cleansing No -Bioengineered Tissue No -Bleeding Controlled with Pressure -Treatment Response Procedure Tolerated Well #3 RIGHT HEEL -Time 14:08 -Correct Patient Yes -Correct Side, Site, Position Yes -Correct Procedure Yes -Procedure Performed Yes -Type of Procedure Debridement -Clinical Debridement Subcutaneous -Post Debridement Size (cm) - Length 2.8 -Post Debridement Size (cm) - Width 2.3 -Post Debridement Size (cm) - Depth 0.1 -Total Square Cm 6.44 -Wound/Ulcer Outcome Not Healed -Ulcer Cleansing Rinsed/ Irrigated with Saline -Foul Odor after Cleansing No -Bioengineered Tissue No -Bleeding Controlled with Pressure -Treatment Response Procedure Tolerated Well [See Physician Procedure note for Specifics] Pain Scale: 0-10 Numeric [Pain] -Is Patient Pain Free? Yes Debridement Note Post-Debridement Measurements/Treatment WC - Nurse 2 - General Ulcer CM Notes Start: 06/10/17 15:28 Freq: Status: Active Protocol: Activity Type Activity Date Activity User E-Sign Co-Sign Detail Recorded Client Recorded Date Recorded By Document 06/10/17 16:11 MW [id number] 06/10/17 16:19 MW Document 06/17/17 13:48 MW [id number] 06/17/17 13:53 MW Document 06/24/17 14:07 MW [id number] 06/24/17 14:10 MW 06/10/17 06/17/17 06/24/17 16:11 13:48 14:07 Wound Center Nurse 2 #4 LEFT MEDIAL HEEL -Time 16:12 13:49 14:07 -Correct Patient Yes Yes Yes -Correct Side, Site, Position Yes Yes Yes -Correct Procedure Yes Yes Yes -Procedure Performed Yes Yes Yes -Type of Procedure Debridement Debridement Debridement -Clinical Debridement Subcutaneous Subcutaneous Subcutaneous -Post Debridement Size (cm) - Length 0.7 1.0 0.6 -Post Debridement Size (cm) - Width 1.0 1.1 0.6 -Post Debridement Size (cm) - Depth 0.2 0.2 0.2 -Total Square Cm 0.70 1.10 0.36 -Wound/Ulcer Outcome Not Healed Not Healed Not Healed -Ulcer Cleansing Rinsed/ Rinsed/ Rinsed/ Irrigated with Irrigated with Irrigated with Saline Saline Saline -Foul Odor after Cleansing No No No -Bioengineered Tissue No No No -Bleeding Controlled with Pressure Pressure Pressure -Treatment Response Procedure Procedure Procedure Tolerated Well Tolerated Well Tolerated Well #3 RIGHT HEEL -Time 16:13 13:49 14:08 -Correct Patient Yes Yes Yes -Correct Side, Site, Position Yes Yes Yes -Correct Procedure Yes Yes Yes -Procedure Performed Yes Yes Yes -Type of Procedure Debridement Debridement Debridement -Clinical Debridement Subcutaneous Subcutaneous Subcutaneous -Post Debridement Size (cm) - Length 5.5 2.1 2.8 -Post Debridement Size (cm) - Width 3.0 2.4 2.3 -Post Debridement Size (cm) - Depth 0.2 0.1 0.1 -Total Square Cm 16.50 5.04 6.44 -Wound/Ulcer Outcome Not Healed Not Healed Not Healed -Ulcer Cleansing Rinsed/ Rinsed/ Rinsed/ Irrigated with Irrigated with Irrigated with Saline Saline Saline -Foul Odor after Cleansing No No No -Bioengineered Tissue No No No -Bleeding Controlled with Pressure Pressure Pressure -Treatment Response Procedure Procedure Procedure Tolerated Well Tolerated Well Tolerated Well Pain Scale: 0-10 Numeric Is Patient Pain Free? No Yes Yes Wound debrided: R heel Laterality: Right Wound Grade/Stage: arizmendi grade 1 full thickness DFU Type of Debridement: Excisional debridement Anesthesia Used: 4% Lidocaine Solution Depth: Down to and including healthy tissue, in the subcutaneous layer Percentage of wound debrided: 100 Instrument Used: #15 blade Tissue Removed: fibrous slough, surrounding hyperkeratotic tissue Severity: Fat Layer Exposed Amount of bleeding with debridement: Mild Bleeding Controlled with: Pressure, Compression and gauze Patient tolerated procedure well - Additional Wound Wound debrided: L heel Laterality: Left Wound Grade/Stage: Arizmendi grade 1 full thickness DFU Type of Debridement: Excisional debridement Anesthesia Used: 4% Lidocaine Solution Depth: Down to and including healthy tissue, in the subcutaneous layer Percentage of wound debrided: 100 Instrument Used: #15 blade Tissue Removed: fibrous slough, surrounding hyperkeratotic tissue Severity: Fat Layer Exposed Amount of bleeding with debridement: Mild Bleeding Controlled with: Pressure, Compression and gauze Patient tolerated procedure: Patient tolerated procedure well Assessment/Plan Active Problems (Last Reviewed 06/24/17 @ 11:41 by Pamela Cantu) Non-pressure chronic ulcer of right heel and midfoot with fat layer exposed ( Acute) Non-pressure chronic ulcer of left heel and midfoot with fat layer exposed ( Acute) Diabetic foot ulcer associated with type 2 diabetes mellitus (Acute) Type 2 diabetes mellitus with diabetic polyneuropathy (Chronic) Assessment: See diagnoses. Plan: SQ/excisional debridement of L and R heel ulcers as above. Smoking cessation has been recommended. Weight loss has been recommended. She has been advised to collaborate with her primary care physician to discuss weight loss options as well as quitting smoking. Referral to [facility] provided previously--pt has heard from them, but states she will no schedule an appointment due to money concerns. Underwent revascularization procedure by Dr. Robbins (01/09). Has new ulcerations on both heels. Pt states she will not pay for [employer]. Did well with jaden to the 5th toe previously--cont jaden moistened with saline and gauze 3x/week. Rx rearfoot offloading shoe as well as CAM boot previously (whichever is less expensive) to be worn on RLE during ambulation, Rx prevalon heel offloading boot for RLE to be worn while resting or sleeping. Made an offloading shoe for her today out of a regular surgical shoe with padding to be worn until she can get the offloading shoe or CAM boot. Monitor for redness, pus, malodor, warmth, pain, swelling as well as N/V/F/C and go to the ED with these. Pt is going to the ED for chest pain after leaving wound care today. Discussed risk of infection which could lead to amputation in diabetics with open wounds on the lower extremities--pt states she is aware of this risk.
== END 2017-06-28 23:59 ==
LOC: WC 13:30
PROVIDERS: Family Provider Internal Medicine; PCP Internal Medicine; Visit Provider Podiatrist Foot & Ankle Surgery
DX: E11.621 Type 2 diabetes mellitus with foot ulcer (principal); L97.422 Non-pressure chronic ulcer of left heel and midfoot with fat layer exposed; L97.412 Non-pressure chronic ulcer of right heel and midfoot with fat layer exposed; E11.42 Type 2 diabetes mellitus with diabetic polyneuropathy; F17.200 Nicotine dependence, unspecified, uncomplicated
CPT/HCPCS: 11042; 82570; 84156

== ENCOUNTER 2017-07-22 14:00 | Outpatient (RCR) | payer MEDICARE, SELFPAY ==
[2017-06-29 01:15] VITALS: PULSE 74; RESP 18; TEMP 36.1
[2017-07-01 14:14] VITALS: BP 123/72; PULSE 80; RESP 19; TEMP 35.8
--- NOTE | 2017-07-01 14:46 | PCM.WC.PN ---
(1) Non-pressure chronic ulcer of right heel and midfoot with fat layer exposed Status: Acute Current Visit: Yes Code(s): L97.412 - Non-pressure chronic ulcer of right heel and midfoot with fat layer exposed (2) Non-pressure chronic ulcer of left heel and midfoot with fat layer exposed Status: Acute Current Visit: Yes Code(s): L97.422 - Non-pressure chronic ulcer of left heel and midfoot with fat layer exposed (3) Diabetic foot ulcer associated with type 2 diabetes mellitus Status: Acute Current Visit: Yes Code(s): E11.621 - Type 2 diabetes mellitus with foot ulcer; L97.509 - Non-pressure chronic ulcer of other part of unspecified foot with unspecified severity (4) Type 2 diabetes mellitus with diabetic polyneuropathy Status: Chronic Current Visit: Yes Qualifiers: Diabetes mellitus custodial insulin use: unspecified custodial insulin use status Code(s): E11.42 - Type 2 diabetes mellitus with diabetic polyneuropathy Type of Wound Date of Service: 07/01/17 Chief Complaint: Bilateral heel ulcers History of Wound: 57 year old woman with recently healed R 5th toe ulceration presents with new ulcerations on both heels present for about 3 weeks. She is unsure how they started. She has avoided coming here due to medical bills. Denies pus, malodor, warmth, pain, swelling. Admits to peeling skin off of her right heel after the ulcer started. Denies N/V/F/C. C/o chest pain today, and we recommended an ambulance, but the patient adamately refused. She states she has been having similar chest pain since last night, and she will go to the ED after she leaves here. 06/17--Applying jaden and dry dressing every other day. Denies pus, malodor, warmth, pain. Denies N/V/F/C. Did not yet get CAM boot due to cost. She is wearing slippers, so we will fashion an offloading shoe made out of a surgical shoe today for her to wear until she is able to get the CAM boot. She continues to smoke tobacco against advice. 06/24--Applying jaden and dry dressing every other day. Denies pus, malodor, warmth, pain. Denies N/V/F/C. Did not yet get CAM boot due to cost. She is wearing slippers with cutout paddin she made herself until she is able to get the CAM boot. She continues to smoke tobacco against advice. 07/01--Applying jaden and dry dressing every other day. Denies pus, malodor, warmth, pain. Denies N/V/F/C. Still did not yet get CAM boot due to cost. She is wearing slippers with cutout padding she made herself until she is able to get the CAM boot. She continues to smoke tobacco against advice. Progress of Wound: R heel improved, L heel improved - Physical Exam Vital Signs Temp Pulse Resp BP 96.5 F L 80 19 H 123/72 H 07/01/17 14:14 07/01/17 14:14 07/01/17 14:14 07/01/17 14:14 General: Alert, Oriented x3, Cooperative, No apparent distress Skin: Ulcer/ Wound - R and L heel with no erythema, no pus, no malodor, no warmth, no pain. No clinical signs of acute bacterial infection noted. See wound/edema assessment below. Wound Measurements and Assessment WC - Nurse 1 - General Ulcer Measurement Start: 07/01/17 13:59 Freq: Status: Active Protocol: Activity Type Activity Date Activity User E-Sign Co-Sign Detail Recorded Client Recorded Date Recorded By Document 07/01/17 14:14 ROCIO [id number] 07/01/17 14:17 TN 07/01/17 14:14 Wound Center Nurse 1 [Ulcer Assessment] #4 LEFT MEDIAL HEEL -Combined with other wound No -Current Size (cm) - Length 1.7 -Current Size (cm) - Width 0.5 -Current Size (cm) - Depth 0.2 -Total Square Cm 0.85 -Photo Taken No -Epithelialization None Present -Tunneling No -Undermining/Tunneling No -Circular Undermining No -Classification - Thickness Full Thickness without Exposed Support Structure -Change in Wound Grade/Stage No Query Text:If change please identify the Stage/Grade in the comment (ie. S2 G3) -Exudate Amt None Present (0 %) -Wound Margin Thickened -Granulation Amt None Present (0 %) -Slough/Fibrin Yes -Necrosis Amt Medium (34-66%) -Necrotic Tissue Type Eschar -Structure Exposed None/Limited to Skin Breakdown -Texture (Loly-wound Skin Appearance) Assessed Callus Scarring -Moisture (Loly-wound Skin Appearance Assessed ) Dry/Scaly -Color (Loly-wound Skin Appearance) Assessed Palor -Temperature (Loly-wound Skin No Abnormality Appearance) (Pt Warm) -Tenderness on Palpation (Loly-wound No Skin Appearance) -Ulcer Cleansing Wound Cleanser -Foul Odor after Cleansing No -Anesthetic Used 5% Lidocaine Gel #3 RIGHT HEEL -Combined with other wound No -Current Size (cm) - Length 2.2 -Current Size (cm) - Width 2.5 -Current Size (cm) - Depth 0.2 -Total Square Cm 5.50 -Photo Taken No -Epithelialization None Present -Tunneling No -Undermining/Tunneling No -Circular Undermining No -Classification - Thickness Full Thickness without Exposed Support Structure -Change in Wound Grade/Stage No Query Text:If change please identify the Stage/Grade in the comment (ie. S2 G3) -Exudate Amt Small (1-33%) -Exudate Type Yellow/Green -Wound Margin Thickened -Granulation Amt Medium (34-66%) -Granulation Quality [place] -Slough/Fibrin Yes -Necrosis Amt Small (1-33%) -Necrotic Tissue Type Adherent Slough -Structure Exposed None/Limited to Skin Breakdown -Texture (Loly-wound Skin Appearance) Assessed Callus -Moisture (Loly-wound Skin Appearance Assessed ) Dry/Scaly -Color (Loly-wound Skin Appearance) Assessed Palor -Temperature (Loly-wound Skin No Abnormality Appearance) (Pt Warm) -Tenderness on Palpation (Loly-wound No Skin Appearance) -Ulcer Cleansing Wound Cleanser -Foul Odor after Cleansing No -Anesthetic Used 5% Lidocaine Gel [Edema Assessment] -Lower Limb Edema Present No Debridement Note Wound debrided: R heel Laterality: Right Wound Grade/Stage: amaya grade 1 DFU Type of Debridement: Excisional debridement Anesthesia Used: 4% Lidocaine Solution Depth: Down to and including healthy tissue, in the subcutaneous layer Percentage of wound debrided: 100 Instrument Used: 3mm curette Tissue Removed: fibrous slough, surrounding hyperkeratotic tissue Severity: Fat Layer Exposed Amount of bleeding with debridement: Mild Bleeding Controlled with: Pressure, Compression and gauze Patient tolerated procedure well - Additional Wound Wound debrided: L heel Laterality: Left Wound Grade/Stage: amaya grade 1 DFU Type of Debridement: Excisional debridement Anesthesia Used: 4% Lidocaine Solution Depth: Down to and including healthy tissue, in the subcutaneous layer Percentage of wound debrided: 100 Instrument Used: 3mm curette Tissue Removed: fibrous slough, surrounding hyperkeratotic tissue Severity: Fat Layer Exposed Amount of bleeding with debridement: Mild Bleeding Controlled with: Pressure, Compression and gauze Patient tolerated procedure: Patient tolerated procedure well Assessment/Plan Active Problems (Last Reviewed 06/24/17 @ 11:41 by Pamela Cantu) Non-pressure chronic ulcer of right heel and midfoot with fat layer exposed (Acute) Non-pressure chronic ulcer of left heel and midfoot with fat layer exposed (Acute) Diabetic foot ulcer associated with type 2 diabetes mellitus (Acute) Type 2 diabetes mellitus with diabetic polyneuropathy (Chronic) Assessment: See diagnoses. Plan: SQ/excisional debridement of L and R heel ulcers as above. Smoking cessation has been recommended. Weight loss has been recommended. She has been advised to collaborate with her primary care physician to discuss weight loss options as well as quitting smoking. Referral to supervisor public health nursing/dietitan provided previously--pt states she will not schedule an appointment due to money concerns. Underwent revascularization procedure by Dr. Robbins (01/09). Has new ulcerations on both heels. Pt states she will not pay for [facility]. Did well with jaden to the 5th toe previously--cont jaden moistened with saline and gauze 3x/week. Rx rearfoot offloading shoe as well as CAM boot previously (whichever is less expensive) to be worn on RLE during ambulation, Rx prevalon heel offloading boot for RLE to be worn while resting or sleeping. Monitor for redness, pus, malodor, warmth, pain, swelling as well as N/V/F/C and go to the ED with these. Discussed risk of infection which could lead to amputation in diabetics with open wounds on the lower extremities--pt states she is aware of this risk. Ulcers continue to slowly improve, so continue current treatment for now--except I did reiterate the importance of offloading and advised her to get either the rearfoot offloading shoe or CAM boot JAIMIE.
--- NOTE | 2017-07-01 14:50 | PN.PCM_ITS ---
(1) Non-pressure chronic ulcer of right heel and midfoot with fat layer exposed Status: Acute Current Visit: Yes Code(s): L97.412 - Non-pressure chronic ulcer of right heel and midfoot with fat layer exposed (2) Non-pressure chronic ulcer of left heel and midfoot with fat layer exposed Status: Acute Current Visit: Yes Code(s): L97.422 - Non-pressure chronic ulcer of left heel and midfoot with fat layer exposed (3) Diabetic foot ulcer associated with type 2 diabetes mellitus Status: Acute Current Visit: Yes Code(s): E11.621 - Type 2 diabetes mellitus with foot ulcer; L97.509 - Non-pressure chronic ulcer of other part of unspecified foot with unspecified severity (4) Type 2 diabetes mellitus with diabetic polyneuropathy Status: Chronic Current Visit: Yes Qualifiers: Diabetes mellitus senior care insulin use: unspecified senior care insulin use status Code(s): E11.42 - Type 2 diabetes mellitus with diabetic polyneuropathy Type of Wound Date of Service: 07/01/17 Chief Complaint: Bilateral heel ulcers History of Wound: 57 year old woman with recently healed R 5th toe ulceration presents with new ulcerations on both heels present for about 3 weeks. She is unsure how they started. She has avoided coming here due to medical bills. Denies pus, malodor, warmth, pain, swelling. Admits to peeling skin off of her right heel after the ulcer started. Denies N/V/F/C. C/o chest pain today, and we recommended an ambulance, but the patient adamately refused. She states she has been having similar chest pain since last night, and she will go to the ED after she leaves here. 06/17--Applying jaden and dry dressing every other day. Denies pus, malodor, warmth, pain. Denies N/V/F/C. Did not yet get CAM boot due to cost. She is wearing slippers, so we will fashion an offloading shoe made out of a surgical shoe today for her to wear until she is able to get the CAM boot. She continues to smoke tobacco against advice. 06/24--Applying jaden and dry dressing every other day. Denies pus, malodor, warmth, pain. Denies N/V/F/C. Did not yet get CAM boot due to cost. She is wearing slippers with cutout paddin she made herself until she is able to get the CAM boot. She continues to smoke tobacco against advice. 07/01--Applying jaden and dry dressing every other day. Denies pus, malodor, warmth, pain. Denies N/V/F/C. Still did not yet get CAM boot due to cost. She is wearing slippers with cutout padding she made herself until she is able to get the CAM boot. She continues to smoke tobacco against advice. Progress of Wound: R heel improved, L heel improved - Physical Exam Vital Signs Temp Pulse Resp BP 96.5 F L 80 19 H 123/72 H 07/01/17 14:14 07/01/17 14:14 07/01/17 14:14 07/01/17 14:14 General: Alert, Oriented x3, Cooperative, No apparent distress Skin: Ulcer/ Wound - R and L heel with no erythema, no pus, no malodor, no warmth, no pain. No clinical signs of acute bacterial infection noted. See wound/edema assessment below. Wound Measurements and Assessment WC - Nurse 1 - General Ulcer Measurement Start: 07/01/17 13:59 Freq: Status: Active Protocol: Activity Type Activity Date Activity User E-Sign Co-Sign Detail Recorded Client Recorded Date Recorded By Document 07/01/17 14:14 ROCIO [id number] 07/01/17 14:17 TN 07/01/17 14:14 Wound Center Nurse 1 [Ulcer Assessment] #4 LEFT MEDIAL HEEL -Combined with other wound No -Current Size (cm) - Length 1.7 -Current Size (cm) - Width 0.5 -Current Size (cm) - Depth 0.2 -Total Square Cm 0.85 -Photo Taken No -Epithelialization None Present -Tunneling No -Undermining/Tunneling No -Circular Undermining No -Classification - Thickness Full Thickness without Exposed Support Structure -Change in Wound Grade/Stage No Query Text:If change please identify the Stage/Grade in the comment (ie. S2 G3) -Exudate Amt None Present (0 %) -Wound Margin Thickened -Granulation Amt None Present (0 %) -Slough/Fibrin Yes -Necrosis Amt Medium (34-66%) -Necrotic Tissue Type Eschar -Structure Exposed None/Limited to Skin Breakdown -Texture (Loly-wound Skin Appearance) Assessed Callus Scarring -Moisture (Loly-wound Skin Appearance Assessed ) Dry/Scaly -Color (Loly-wound Skin Appearance) Assessed Palor -Temperature (Loly-wound Skin No Abnormality Appearance) (Pt Warm) -Tenderness on Palpation (Loly-wound No Skin Appearance) -Ulcer Cleansing Wound Cleanser -Foul Odor after Cleansing No -Anesthetic Used 5% Lidocaine Gel #3 RIGHT HEEL -Combined with other wound No -Current Size (cm) - Length 2.2 -Current Size (cm) - Width 2.5 -Current Size (cm) - Depth 0.2 -Total Square Cm 5.50 -Photo Taken No -Epithelialization None Present -Tunneling No -Undermining/Tunneling No -Circular Undermining No -Classification - Thickness Full Thickness without Exposed Support Structure -Change in Wound Grade/Stage No Query Text:If change please identify the Stage/Grade in the comment (ie. S2 G3) -Exudate Amt Small (1-33%) -Exudate Type Yellow/Green -Wound Margin Thickened -Granulation Amt Medium (34-66%) -Granulation Quality [place] -Slough/Fibrin Yes -Necrosis Amt Small (1-33%) -Necrotic Tissue Type Adherent Slough -Structure Exposed None/Limited to Skin Breakdown -Texture (Loly-wound Skin Appearance) Assessed Callus -Moisture (Loly-wound Skin Appearance Assessed ) Dry/Scaly -Color (Loly-wound Skin Appearance) Assessed Palor -Temperature (Loly-wound Skin No Abnormality Appearance) (Pt Warm) -Tenderness on Palpation (Loly-wound No Skin Appearance) -Ulcer Cleansing Wound Cleanser -Foul Odor after Cleansing No -Anesthetic Used 5% Lidocaine Gel [Edema Assessment] -Lower Limb Edema Present No Debridement Note Wound debrided: R heel Laterality: Right Wound Grade/Stage: amaya grade 1 DFU Type of Debridement: Excisional debridement Anesthesia Used: 4% Lidocaine Solution Depth: Down to and including healthy tissue, in the subcutaneous layer Percentage of wound debrided: 100 Instrument Used: 3mm curette Tissue Removed: fibrous slough, surrounding hyperkeratotic tissue Severity: Fat Layer Exposed Amount of bleeding with debridement: Mild Bleeding Controlled with: Pressure, Compression and gauze Patient tolerated procedure well - Additional Wound Wound debrided: L heel Laterality: Left Wound Grade/Stage: amaya grade 1 DFU Type of Debridement: Excisional debridement Anesthesia Used: 4% Lidocaine Solution Depth: Down to and including healthy tissue, in the subcutaneous layer Percentage of wound debrided: 100 Instrument Used: 3mm curette Tissue Removed: fibrous slough, surrounding hyperkeratotic tissue Severity: Fat Layer Exposed Amount of bleeding with debridement: Mild Bleeding Controlled with: Pressure, Compression and gauze Patient tolerated procedure: Patient tolerated procedure well Assessment/Plan Active Problems (Last Reviewed 06/24/17 @ 11:41 by Pamela Cantu) Non-pressure chronic ulcer of right heel and midfoot with fat layer exposed ( Acute) Non-pressure chronic ulcer of left heel and midfoot with fat layer exposed ( Acute) Diabetic foot ulcer associated with type 2 diabetes mellitus (Acute) Type 2 diabetes mellitus with diabetic polyneuropathy (Chronic) Assessment: See diagnoses. Plan: SQ/excisional debridement of L and R heel ulcers as above. Smoking cessation has been recommended. Weight loss has been recommended. She has been advised to collaborate with her primary care physician to discuss weight loss options as well as quitting smoking. Referral to street vendor/dietitan provided previously--pt states she will not schedule an appointment due to money concerns. Underwent revascularization procedure by Dr. Robbins (01/09). Has new ulcerations on both heels. Pt states she will not pay for [facility]. Did well with jaden to the 5th toe previously--cont jaden moistened with saline and gauze 3x/week. Rx rearfoot offloading shoe as well as CAM boot previously ( whichever is less expensive) to be worn on RLE during ambulation, Rx prevalon heel offloading boot for RLE to be worn while resting or sleeping. Monitor for redness, pus, malodor, warmth, pain, swelling as well as N/V/F/C and go to the ED with these. Discussed risk of infection which could lead to amputation in diabetics with open wounds on the lower extremities--pt states she is aware of this risk. Ulcers continue to slowly improve, so continue current treatment for now--except I did reiterate the importance of offloading and advised her to get either the rearfoot offloading shoe or CAM boot JAIMIE.
[2017-07-08 13:54] VITALS: BP 139/76; PULSE 78; RESP 20; TEMP 36.3
--- NOTE | 2017-07-08 15:08 | PCM.WC.PN ---
(1) Non-pressure chronic ulcer of right heel and midfoot with fat layer exposed Status: Acute Current Visit: Yes Code(s): L97.412 - Non-pressure chronic ulcer of right heel and midfoot with fat layer exposed (2) Non-pressure chronic ulcer of left heel and midfoot with fat layer exposed Status: Acute Current Visit: Yes Code(s): L97.422 - Non-pressure chronic ulcer of left heel and midfoot with fat layer exposed (3) Diabetic foot ulcer associated with type 2 diabetes mellitus Status: Acute Current Visit: Yes Code(s): E11.621 - Type 2 diabetes mellitus with foot ulcer; L97.509 - Non-pressure chronic ulcer of other part of unspecified foot with unspecified severity (4) Type 2 diabetes mellitus with diabetic polyneuropathy Status: Chronic Current Visit: Yes Qualifiers: Diabetes mellitus long-term insulin use: unspecified long-term insulin use status Code(s): E11.42 - Type 2 diabetes mellitus with diabetic polyneuropathy Type of Wound Date of Service: 07/08/17 Chief Complaint: Bilateral heel ulcers History of Wound: 57 year old woman with recently healed R 5th toe ulceration presents with new ulcerations on both heels present for about 3 weeks. She is unsure how they started. She has avoided coming here due to medical bills. Denies pus, malodor, warmth, pain, swelling. Admits to peeling skin off of her right heel after the ulcer started. Denies N/V/F/C. C/o chest pain today, and we recommended an ambulance, but the patient adamately refused. She states she has been having similar chest pain since last night, and she will go to the ED after she leaves here. 06/17--Applying jaden and dry dressing every other day. Denies pus, malodor, warmth, pain. Denies N/V/F/C. Did not yet get CAM boot due to cost. She is wearing slippers, so we will fashion an offloading shoe made out of a surgical shoe today for her to wear until she is able to get the CAM boot. She continues to smoke tobacco against advice. 06/24--Applying jaden and dry dressing every other day. Denies pus, malodor, warmth, pain. Denies N/V/F/C. Did not yet get CAM boot due to cost. She is wearing slippers with cutout paddin she made herself until she is able to get the CAM boot. She continues to smoke tobacco against advice. 07/01--Applying jaden and dry dressing every other day. Denies pus, malodor, warmth, pain. Denies N/V/F/C. Still did not yet get CAM boot due to cost. She is wearing slippers with cutout padding she made herself until she is able to get the CAM boot. She continues to smoke tobacco against advice. 07/08--Applying jaden and dry dressing every other day. Denies pus, malodor, warmth, pain. Denies N/V/F/C. Still did not yet get CAM boot due to cost. She is wearing slippers with cutout padding she made herself until she is able to get the CAM boot. Conitnues to improve, but she continues to smoke tobacco against advice. Progress of Wound: R heel improved, L heel improved - Physical Exam Vital Signs Temp Pulse Resp BP 97.3 F L 78 20 H 139/76 H 07/08/17 13:54 07/08/17 13:54 07/08/17 13:54 07/08/17 13:54 General: Alert, Oriented x3, Cooperative, No apparent distress Skin: Ulcer/ Wound - R and L heel with no erythema, no pus, no malodor, no increased warmth. No clinical signs of acute bacterial infection noted. See wound/edema assessment below. Wound Measurements and Assessment WC - Nurse 1 - General Ulcer Measurement Start: 07/01/17 13:59 Freq: Status: Active Protocol: Activity Type Activity Date Activity User E-Sign Co-Sign Detail Recorded Client Recorded Date Recorded By Document 07/08/17 13:54 DL [id number] 07/08/17 14:02 DL 07/08/17 13:54 Wound Center Nurse 1 [Ulcer Assessment] #4 LEFT MEDIAL HEEL -Current Size (cm) - Length 0.5 -Current Size (cm) - Width 0.5 -Current Size (cm) - Depth 0.3 -Total Square Cm 0.25 -Photo Taken No -Exudate Amt None Present (0 %) -Wound Margin Thickened -Granulation Amt Small (1-33%) -Granulation Quality Pale -Necrosis Amt Small (1-33%) -Necrotic Tissue Type Adherent Slough -Structure Exposed N/A -Moisture (Loly-wound Skin Appearance Dry/Scaly ) -Color (Loly-wound Skin Appearance) No Abnormality -Temperature (Loly-wound Skin No Abnormality Appearance) (Pt Warm) -Tenderness on Palpation (Loly-wound Yes Skin Appearance) -Ulcer Cleansing Rinsed/ Irrigated with Saline -Foul Odor after Cleansing No -Anesthetic Used 4% Lidocaine Solution #3 RIGHT HEEL -Current Size (cm) - Length 2.6 -Current Size (cm) - Width 1.8 -Current Size (cm) - Depth 0.2 -Total Square Cm 4.68 -Photo Taken No -Exudate Amt None Present (0 %) -Wound Margin Thickened -Granulation Amt Medium (34-66%) -Granulation Quality [place] -Necrosis Amt Medium (34-66%) -Necrotic Tissue Type Adherent Slough -Structure Exposed N/A -Texture (Loly-wound Skin Appearance) Callus -Moisture (Loly-wound Skin Appearance Dry/Scaly ) -Color (Loly-wound Skin Appearance) Rubor -Temperature (Loly-wound Skin No Abnormality Appearance) (Pt Warm) -Tenderness on Palpation (Loly-wound Yes Skin Appearance) -Ulcer Cleansing Wound Cleanser -Foul Odor after Cleansing No -Anesthetic Used 4% Lidocaine Solution [Edema Assessment] -Right Calf (cm) 38 -Right Ankle (cm) 22.5 -Left Calf (cm) 38 -Left Ankle (cm) 21.5 WC - Nurse 2 - General Ulcer CM Notes Start: 07/01/17 13:59 Freq: Status: Active Protocol: Activity Type Activity Date Activity User E-Sign Co-Sign Detail Recorded Client Recorded Date Recorded By Document 07/08/17 14:22 MW [id number] 07/08/17 14:26 MW 07/08/17 14:22 Wound Center Nurse 2 [Procedure/Treatment] #4 LEFT MEDIAL HEEL -Time 14:23 -Correct Patient Yes -Correct Side, Site, Position Yes -Correct Procedure Yes -Procedure Performed Yes -Type of Procedure Debridement -Clinical Debridement Subcutaneous -Post Debridement Size (cm) - Length 0.6 -Post Debridement Size (cm) - Width 0.6 -Post Debridement Size (cm) - Depth 0.3 -Total Square Cm 0.36 -Wound/Ulcer Outcome Not Healed -Ulcer Cleansing Rinsed/ Irrigated with Saline -Foul Odor after Cleansing No -Bioengineered Tissue No -Bleeding Controlled with Pressure -Treatment Response Procedure Tolerated Well #3 RIGHT HEEL -Time 14:23 -Correct Patient Yes -Correct Side, Site, Position Yes -Correct Procedure Yes -Procedure Performed Yes -Type of Procedure Debridement -Clinical Debridement Subcutaneous -Post Debridement Size (cm) - Length 2.7 -Post Debridement Size (cm) - Width 1.8 -Post Debridement Size (cm) - Depth 0.2 -Total Square Cm 4.86 -Wound/Ulcer Outcome Not Healed -Ulcer Cleansing Rinsed/ Irrigated with Saline -Foul Odor after Cleansing No -Bioengineered Tissue No -Bleeding Controlled with Pressure -Treatment Response Procedure Tolerated Well [See Physician Procedure note for Specifics] Pain Scale: 0-10 Numeric [Pain] -Is Patient Pain Free? Yes Debridement Note Post-Debridement Measurements/Treatment WC - Nurse 2 - General Ulcer CM Notes Start: 07/01/17 13:59 Freq: Status: Active Protocol: Activity Type Activity Date Activity User E-Sign Co-Sign Detail Recorded Client Recorded Date Recorded By Document 07/01/17 14:42 MW [id number] 07/01/17 14:47 MW Document 07/08/17 14:22 MW [id number] 07/08/17 14:26 MW 07/01/17 07/08/17 14:42 14:22 Wound Center Nurse 2 #4 LEFT MEDIAL HEEL -Time 14:42 14:23 -Correct Patient Yes Yes -Correct Side, Site, Position Yes Yes -Correct Procedure Yes Yes -Procedure Performed Yes Yes -Type of Procedure Debridement Debridement -Clinical Debridement Subcutaneous Subcutaneous -Post Debridement Size (cm) - Length 0.5 0.6 -Post Debridement Size (cm) - Width 0.7 0.6 -Post Debridement Size (cm) - Depth 0.2 0.3 -Total Square Cm 0.35 0.36 -Wound/Ulcer Outcome Not Healed Not Healed -Ulcer Cleansing Rinsed/ Rinsed/ Irrigated with Irrigated with Saline Saline -Foul Odor after Cleansing No No -Bioengineered Tissue No No -Bleeding Controlled with Pressure Pressure -Treatment Response Procedure Procedure Tolerated Well Tolerated Well #3 RIGHT HEEL -Time 14:43 14:23 -Correct Patient Yes Yes -Correct Side, Site, Position Yes Yes -Correct Procedure Yes Yes -Procedure Performed Yes Yes -Type of Procedure Debridement Debridement -Clinical Debridement Subcutaneous Subcutaneous -Post Debridement Size (cm) - Length 2.5 2.7 -Post Debridement Size (cm) - Width 2.2 1.8 -Post Debridement Size (cm) - Depth 0.2 0.2 -Total Square Cm 5.50 4.86 -Wound/Ulcer Outcome Not Healed Not Healed -Ulcer Cleansing Rinsed/ Rinsed/ Irrigated with Irrigated with Saline Saline -Foul Odor after Cleansing No No -Bioengineered Tissue No No -Bleeding Controlled with Pressure Pressure -Treatment Response Procedure Not Procedure Tolerated Well Tolerated Well Pain Scale: 0-10 Numeric Is Patient Pain Free? Yes Yes Wound debrided: R heel Laterality: Right Wound Grade/Stage: Arizmendi grade 1 full thickness DFU Type of Debridement: Excisional debridement Anesthesia Used: 4% Lidocaine Solution Depth: Down to and including healthy tissue, in the subcutaneous layer Percentage of wound debrided: 100 Instrument Used: 5mm curette Tissue Removed: fibrous slough, surrounding hyperkeratotic tissue Severity: Fat Layer Exposed Amount of bleeding with debridement: Mild Bleeding Controlled with: Pressure, Compression and gauze Patient tolerated procedure well - Additional Wound Wound debrided: L heel Laterality: Left Wound Grade/Stage: fibrous slough Type of Debridement: Excisional debridement Anesthesia Used: 4% Lidocaine Solution Depth: Down to and including healthy tissue, in the subcutaneous layer Percentage of wound debrided: 100 Instrument Used: 5mm curette Tissue Removed: fibrous slough, surrounding hyperkeratotic tissue Severity: Fat Layer Exposed Amount of bleeding with debridement: Mild Bleeding Controlled with: Pressure, Compression and gauze Patient tolerated procedure: Patient tolerated procedure well Assessment/Plan Active Problems (Last Reviewed 06/24/17 @ 11:41 by Pamela Cantu) Non-pressure chronic ulcer of right heel and midfoot with fat layer exposed (Acute) Non-pressure chronic ulcer of left heel and midfoot with fat layer exposed (Acute) Diabetic foot ulcer associated with type 2 diabetes mellitus (Acute) Type 2 diabetes mellitus with diabetic polyneuropathy (Chronic) Assessment: See diagnoses. Plan: SQ/excisional debridement of L and R heel ulcers as above. Smoking cessation has been recommended. Weight loss has been recommended. She has been advised to collaborate with her primary care physician to discuss weight loss options as well as quitting smoking. Referral to airport utility worker/dietitan provided previously--pt states she will not schedule an appointment due to money concerns. Underwent revascularization procedure by Dr. Robbins (01/09). Has new ulcerations on both heels. Pt states she will not pay for [employer]. Did well with jaden to the 5th toe previously--cont jaden moistened with saline and gauze 3x/week. Rx rearfoot offloading shoe as well as CAM boot previously (whichever is less expensive) to be worn on RLE during ambulation, Rx prevalon heel offloading boot for RLE to be worn while resting or sleeping. Monitor for redness, pus, malodor, warmth, pain, swelling as well as N/V/F/C and go to the ED with these. Discussed risk of infection which could lead to amputation in diabetics with open wounds on the lower extremities--pt states she is aware of this risk. Ulcers continue to slowly improve, so continue current treatment for now--except I did reiterate the importance of offloading and advised her to get either the rearfoot offloading shoe or CAM boot JAIMIE.
--- NOTE | 2017-07-08 15:13 | PN.PCM_ITS ---
(1) Non-pressure chronic ulcer of right heel and midfoot with fat layer exposed Status: Acute Current Visit: Yes Code(s): L97.412 - Non-pressure chronic ulcer of right heel and midfoot with fat layer exposed (2) Non-pressure chronic ulcer of left heel and midfoot with fat layer exposed Status: Acute Current Visit: Yes Code(s): L97.422 - Non-pressure chronic ulcer of left heel and midfoot with fat layer exposed (3) Diabetic foot ulcer associated with type 2 diabetes mellitus Status: Acute Current Visit: Yes Code(s): E11.621 - Type 2 diabetes mellitus with foot ulcer; L97.509 - Non-pressure chronic ulcer of other part of unspecified foot with unspecified severity (4) Type 2 diabetes mellitus with diabetic polyneuropathy Status: Chronic Current Visit: Yes Qualifiers: Diabetes mellitus retirement insulin use: unspecified retirement insulin use status Code(s): E11.42 - Type 2 diabetes mellitus with diabetic polyneuropathy Type of Wound Date of Service: 07/08/17 Chief Complaint: Bilateral heel ulcers History of Wound: 57 year old woman with recently healed R 5th toe ulceration presents with new ulcerations on both heels present for about 3 weeks. She is unsure how they started. She has avoided coming here due to medical bills. Denies pus, malodor, warmth, pain, swelling. Admits to peeling skin off of her right heel after the ulcer started. Denies N/V/F/C. C/o chest pain today, and we recommended an ambulance, but the patient adamately refused. She states she has been having similar chest pain since last night, and she will go to the ED after she leaves here. 06/17--Applying jaden and dry dressing every other day. Denies pus, malodor, warmth, pain. Denies N/V/F/C. Did not yet get CAM boot due to cost. She is wearing slippers, so we will fashion an offloading shoe made out of a surgical shoe today for her to wear until she is able to get the CAM boot. She continues to smoke tobacco against advice. 06/24--Applying jaden and dry dressing every other day. Denies pus, malodor, warmth, pain. Denies N/V/F/C. Did not yet get CAM boot due to cost. She is wearing slippers with cutout paddin she made herself until she is able to get the CAM boot. She continues to smoke tobacco against advice. 07/01--Applying jaden and dry dressing every other day. Denies pus, malodor, warmth, pain. Denies N/V/F/C. Still did not yet get CAM boot due to cost. She is wearing slippers with cutout padding she made herself until she is able to get the CAM boot. She continues to smoke tobacco against advice. 07/08--Applying jaden and dry dressing every other day. Denies pus, malodor, warmth, pain. Denies N/V/F/C. Still did not yet get CAM boot due to cost. She is wearing slippers with cutout padding she made herself until she is able to get the CAM boot. Conitnues to improve, but she continues to smoke tobacco against advice. Progress of Wound: R heel improved, L heel improved - Physical Exam Vital Signs Temp Pulse Resp BP 97.3 F L 78 20 H 139/76 H 07/08/17 13:54 07/08/17 13:54 07/08/17 13:54 07/08/17 13:54 General: Alert, Oriented x3, Cooperative, No apparent distress Skin: Ulcer/ Wound - R and L heel with no erythema, no pus, no malodor, no increased warmth. No clinical signs of acute bacterial infection noted. See wound/edema assessment below. Wound Measurements and Assessment WC - Nurse 1 - General Ulcer Measurement Start: 07/01/17 13:59 Freq: Status: Active Protocol: Activity Type Activity Date Activity User E-Sign Co-Sign Detail Recorded Client Recorded Date Recorded By Document 07/08/17 13:54 DL [id number] 07/08/17 14:02 DL 07/08/17 13:54 Wound Center Nurse 1 [Ulcer Assessment] #4 LEFT MEDIAL HEEL -Current Size (cm) - Length 0.5 -Current Size (cm) - Width 0.5 -Current Size (cm) - Depth 0.3 -Total Square Cm 0.25 -Photo Taken No -Exudate Amt None Present (0 %) -Wound Margin Thickened -Granulation Amt Small (1-33%) -Granulation Quality Pale -Necrosis Amt Small (1-33%) -Necrotic Tissue Type Adherent Slough -Structure Exposed N/A -Moisture (Loly-wound Skin Appearance Dry/Scaly ) -Color (Loly-wound Skin Appearance) No Abnormality -Temperature (Loly-wound Skin No Abnormality Appearance) (Pt Warm) -Tenderness on Palpation (Loly-wound Yes Skin Appearance) -Ulcer Cleansing Rinsed/ Irrigated with Saline -Foul Odor after Cleansing No -Anesthetic Used 4% Lidocaine Solution #3 RIGHT HEEL -Current Size (cm) - Length 2.6 -Current Size (cm) - Width 1.8 -Current Size (cm) - Depth 0.2 -Total Square Cm 4.68 -Photo Taken No -Exudate Amt None Present (0 %) -Wound Margin Thickened -Granulation Amt Medium (34-66%) -Granulation Quality [place] -Necrosis Amt Medium (34-66%) -Necrotic Tissue Type Adherent Slough -Structure Exposed N/A -Texture (Loly-wound Skin Appearance) Callus -Moisture (Loly-wound Skin Appearance Dry/Scaly ) -Color (Loly-wound Skin Appearance) Rubor -Temperature (Loly-wound Skin No Abnormality Appearance) (Pt Warm) -Tenderness on Palpation (Loly-wound Yes Skin Appearance) -Ulcer Cleansing Wound Cleanser -Foul Odor after Cleansing No -Anesthetic Used 4% Lidocaine Solution [Edema Assessment] -Right Calf (cm) 38 -Right Ankle (cm) 22.5 -Left Calf (cm) 38 -Left Ankle (cm) 21.5 WC - Nurse 2 - General Ulcer CM Notes Start: 07/01/17 13:59 Freq: Status: Active Protocol: Activity Type Activity Date Activity User E-Sign Co-Sign Detail Recorded Client Recorded Date Recorded By Document 07/08/17 14:22 MW [id number] 07/08/17 14:26 MW 07/08/17 14:22 Wound Center Nurse 2 [Procedure/Treatment] #4 LEFT MEDIAL HEEL -Time 14:23 -Correct Patient Yes -Correct Side, Site, Position Yes -Correct Procedure Yes -Procedure Performed Yes -Type of Procedure Debridement -Clinical Debridement Subcutaneous -Post Debridement Size (cm) - Length 0.6 -Post Debridement Size (cm) - Width 0.6 -Post Debridement Size (cm) - Depth 0.3 -Total Square Cm 0.36 -Wound/Ulcer Outcome Not Healed -Ulcer Cleansing Rinsed/ Irrigated with Saline -Foul Odor after Cleansing No -Bioengineered Tissue No -Bleeding Controlled with Pressure -Treatment Response Procedure Tolerated Well #3 RIGHT HEEL -Time 14:23 -Correct Patient Yes -Correct Side, Site, Position Yes -Correct Procedure Yes -Procedure Performed Yes -Type of Procedure Debridement -Clinical Debridement Subcutaneous -Post Debridement Size (cm) - Length 2.7 -Post Debridement Size (cm) - Width 1.8 -Post Debridement Size (cm) - Depth 0.2 -Total Square Cm 4.86 -Wound/Ulcer Outcome Not Healed -Ulcer Cleansing Rinsed/ Irrigated with Saline -Foul Odor after Cleansing No -Bioengineered Tissue No -Bleeding Controlled with Pressure -Treatment Response Procedure Tolerated Well [See Physician Procedure note for Specifics] Pain Scale: 0-10 Numeric [Pain] -Is Patient Pain Free? Yes Debridement Note Post-Debridement Measurements/Treatment WC - Nurse 2 - General Ulcer CM Notes Start: 07/01/17 13:59 Freq: Status: Active Protocol: Activity Type Activity Date Activity User E-Sign Co-Sign Detail Recorded Client Recorded Date Recorded By Document 07/01/17 14:42 MW [id number] 07/01/17 14:47 MW Document 07/08/17 14:22 MW [id number] 07/08/17 14:26 MW 07/01/17 07/08/17 14:42 14:22 Wound Center Nurse 2 #4 LEFT MEDIAL HEEL -Time 14:42 14:23 -Correct Patient Yes Yes -Correct Side, Site, Position Yes Yes -Correct Procedure Yes Yes -Procedure Performed Yes Yes -Type of Procedure Debridement Debridement -Clinical Debridement Subcutaneous Subcutaneous -Post Debridement Size (cm) - Length 0.5 0.6 -Post Debridement Size (cm) - Width 0.7 0.6 -Post Debridement Size (cm) - Depth 0.2 0.3 -Total Square Cm 0.35 0.36 -Wound/Ulcer Outcome Not Healed Not Healed -Ulcer Cleansing Rinsed/ Rinsed/ Irrigated with Irrigated with Saline Saline -Foul Odor after Cleansing No No -Bioengineered Tissue No No -Bleeding Controlled with Pressure Pressure -Treatment Response Procedure Procedure Tolerated Well Tolerated Well #3 RIGHT HEEL -Time 14:43 14:23 -Correct Patient Yes Yes -Correct Side, Site, Position Yes Yes -Correct Procedure Yes Yes -Procedure Performed Yes Yes -Type of Procedure Debridement Debridement -Clinical Debridement Subcutaneous Subcutaneous -Post Debridement Size (cm) - Length 2.5 2.7 -Post Debridement Size (cm) - Width 2.2 1.8 -Post Debridement Size (cm) - Depth 0.2 0.2 -Total Square Cm 5.50 4.86 -Wound/Ulcer Outcome Not Healed Not Healed -Ulcer Cleansing Rinsed/ Rinsed/ Irrigated with Irrigated with Saline Saline -Foul Odor after Cleansing No No -Bioengineered Tissue No No -Bleeding Controlled with Pressure Pressure -Treatment Response Procedure Not Procedure Tolerated Well Tolerated Well Pain Scale: 0-10 Numeric Is Patient Pain Free? Yes Yes Wound debrided: R heel Laterality: Right Wound Grade/Stage: Arizmendi grade 1 full thickness DFU Type of Debridement: Excisional debridement Anesthesia Used: 4% Lidocaine Solution Depth: Down to and including healthy tissue, in the subcutaneous layer Percentage of wound debrided: 100 Instrument Used: 5mm curette Tissue Removed: fibrous slough, surrounding hyperkeratotic tissue Severity: Fat Layer Exposed Amount of bleeding with debridement: Mild Bleeding Controlled with: Pressure, Compression and gauze Patient tolerated procedure well - Additional Wound Wound debrided: L heel Laterality: Left Wound Grade/Stage: fibrous slough Type of Debridement: Excisional debridement Anesthesia Used: 4% Lidocaine Solution Depth: Down to and including healthy tissue, in the subcutaneous layer Percentage of wound debrided: 100 Instrument Used: 5mm curette Tissue Removed: fibrous slough, surrounding hyperkeratotic tissue Severity: Fat Layer Exposed Amount of bleeding with debridement: Mild Bleeding Controlled with: Pressure, Compression and gauze Patient tolerated procedure: Patient tolerated procedure well Assessment/Plan Active Problems (Last Reviewed 06/24/17 @ 11:41 by Pamela Cantu) Non-pressure chronic ulcer of right heel and midfoot with fat layer exposed ( Acute) Non-pressure chronic ulcer of left heel and midfoot with fat layer exposed ( Acute) Diabetic foot ulcer associated with type 2 diabetes mellitus (Acute) Type 2 diabetes mellitus with diabetic polyneuropathy (Chronic) Assessment: See diagnoses. Plan: SQ/excisional debridement of L and R heel ulcers as above. Smoking cessation has been recommended. Weight loss has been recommended. She has been advised to collaborate with her primary care physician to discuss weight loss options as well as quitting smoking. Referral to ladies attendant/dietitan provided previously--pt states she will not schedule an appointment due to money concerns. Underwent revascularization procedure by Dr. Robbins (01/09). Has new ulcerations on both heels. Pt states she will not pay for [employer]. Did well with jaden to the 5th toe previously--cont jaden moistened with saline and gauze 3x/week. Rx rearfoot offloading shoe as well as CAM boot previously ( whichever is less expensive) to be worn on RLE during ambulation, Rx prevalon heel offloading boot for RLE to be worn while resting or sleeping. Monitor for redness, pus, malodor, warmth, pain, swelling as well as N/V/F/C and go to the ED with these. Discussed risk of infection which could lead to amputation in diabetics with open wounds on the lower extremities--pt states she is aware of this risk. Ulcers continue to slowly improve, so continue current treatment for now--except I did reiterate the importance of offloading and advised her to get either the rearfoot offloading shoe or CAM boot JAIMIE.
[2017-07-22 13:51] VITALS: BP 140/81; PULSE 81; RESP 18; TEMP 36.2
--- NOTE | 2017-07-22 14:52 | PCM.WC.PN ---
(1) Non-pressure chronic ulcer of right heel and midfoot with fat layer exposed Status: Acute Current Visit: Yes Code(s): L97.412 - Non-pressure chronic ulcer of right heel and midfoot with fat layer exposed (2) Non-pressure chronic ulcer of left heel and midfoot with fat layer exposed Status: Resolved Current Visit: No Code(s): L97.422 - Non-pressure chronic ulcer of left heel and midfoot with fat layer exposed (3) Diabetic foot ulcer associated with type 2 diabetes mellitus Status: Acute Current Visit: Yes Code(s): E11.621 - Type 2 diabetes mellitus with foot ulcer; L97.509 - Non-pressure chronic ulcer of other part of unspecified foot with unspecified severity (4) Type 2 diabetes mellitus with diabetic polyneuropathy Status: Chronic Current Visit: Yes 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 She is unsure how they started. She has avoided coming here due to medical bills. Denies pus, malodor, warmth, pain, swelling. Admits to peeling skin off of her right heel after the ulcer started. Denies N/V/F/C. C/o chest pain today, and we recommended an ambulance, but the patient adamately refused. She states she has been having similar chest pain since last night, and she will go to the ED after she leaves here. 06/17--Applying jaden and dry dressing every other day. Denies pus, malodor, warmth, pain. Denies N/V/F/C. Did not yet get CAM boot due to cost. She is wearing slippers, so we will fashion an offloading shoe made out of a surgical shoe today for her to wear until she is able to get the CAM boot. She continues to smoke tobacco against advice. 06/24--Applying jaden and dry dressing every other day. Denies pus, malodor, warmth, pain. Denies N/V/F/C. Did not yet get CAM boot due to cost. She is wearing slippers with cutout paddin she made herself until she is able to get the CAM boot. She continues to smoke tobacco against advice. 07/01--Applying jaden and dry dressing every other day. Denies pus, malodor, warmth, pain. Denies N/V/F/C. Still did not yet get CAM boot due to cost. She is wearing slippers with cutout padding she made herself until she is able to get the CAM boot. She continues to smoke tobacco against advice. 07/08--Applying jaden and dry dressing every other day. Denies pus, malodor, warmth, pain. Denies N/V/F/C. Still did not yet get CAM boot due to cost. She is wearing slippers with cutout padding she made herself until she is able to get the CAM boot. Conitnues to improve, but she continues to smoke tobacco against advice. 07/22--Applying jaden and dry dressing every other day. Denies pus, malodor, warmth, pain. Denies N/V/F/C. Still did not yet get CAM boot due to cost. She is wearing slippers with cutout padding she made herself until she is able to get the CAM boot. Ulcers continue to improve, but she also continues to smoke tobacco against advice. Her left heel ulceration is covered with epithelial tissue and has healed today. Progress of Wound: R heel improved, L heel healed - Physical Exam Vital Signs Temp Pulse Resp BP 97.1 F L 81 18 140/81 H 07/22/17 13:51 07/22/17 13:51 07/22/17 13:51 07/22/17 13:51 General: Alert, Oriented x3, Cooperative, No apparent distress Skin: Ulcer/ Wound - R plantar heel with no erythema, no calor, no purulent drainage, no malodor, minimal pain. No clinical signs of acute bacterial infection noted. See wound/edema assessment below. Left heel ulcer covered with epithelial tissue and has healed. Wound Measurements and Assessment WC - Nurse 1 - General Ulcer Measurement Start: 07/01/17 13:59 Freq: Status: Active Protocol: Activity Type Activity Date Activity User E-Sign Co-Sign Detail Recorded Client Recorded Date Recorded By Document 07/22/17 13:51 [id number] 07/22/17 14:00 07/22/17 13:51 Wound Center Nurse 1 [Ulcer Assessment] #4 LEFT MEDIAL HEEL -Combined with other wound No -Current Size (cm) - Length 0.1 -Current Size (cm) - Width 0.1 -Current Size (cm) - Depth 0.1 -Total Square Cm 0.01 -Photo Taken Yes -Epithelialization Small 1-33% -Tunneling No -Undermining/Tunneling No -Circular Undermining No -Exudate Amt None Present (0 %) -Wound Margin Flat & Intact -Granulation Amt None Present (0 %) -Slough/Fibrin Yes -Necrosis Amt Large (67-100%) -Necrotic Tissue Type Adherent Slough -Structure Exposed N/A -Texture (Loly-wound Skin Appearance) Assessed Callus -Moisture (Loly-wound Skin Appearance Assessed ) Dry/Scaly -Color (Loly-wound Skin Appearance) Assessed -Temperature (Loly-wound Skin No Abnormality Appearance) (Pt Warm) -Tenderness on Palpation (Loly-wound No Skin Appearance) -Ulcer Cleansing Rinsed/ Irrigated with Saline -Foul Odor after Cleansing No -Anesthetic Used 4% Lidocaine Solution #3 RIGHT HEEL -Combined with other wound No -Current Size (cm) - Length 1.8 -Current Size (cm) - Width 2.0 -Current Size (cm) - Depth 0.2 -Total Square Cm 3.60 -Photo Taken Yes -Epithelialization None Present -Tunneling No -Undermining/Tunneling No -Circular Undermining No -Exudate Amt Medium (34-66%) -Exudate Type Serosanguineous -Wound Margin Flat & Intact -Granulation Amt Medium (34-66%) -Granulation Quality Red -Slough/Fibrin Yes -Necrosis Amt Small (1-33%) -Necrotic Tissue Type Adherent Slough -Structure Exposed N/A -Texture (Loly-wound Skin Appearance) Assessed Callus -Moisture (Loly-wound Skin Appearance Assessed ) Dry/Scaly -Color (Loly-wound Skin Appearance) Assessed -Temperature (Loly-wound Skin No Abnormality Appearance) (Pt Warm) -Tenderness on Palpation (Loly-wound No Skin Appearance) -Ulcer Cleansing Rinsed/ Irrigated with Saline -Foul Odor after Cleansing No -Anesthetic Used 4% Lidocaine Solution [Edema Assessment] -Lower Limb Edema Present Yes -Right Calf (cm) 38.5 -Right Ankle (cm) 23.6 -Left Calf (cm) 39.4 -Left Ankle (cm) 21.7 WC - Nurse 2 - General Ulcer CM Notes Start: 07/01/17 13:59 Freq: Status: Active Protocol: Activity Type Activity Date Activity User E-Sign Co-Sign Detail Recorded Client Recorded Date Recorded By Document 07/22/17 14:40 [id number] 07/22/17 14:44 07/22/17 14:40 Wound Center Nurse 2 [Procedure/Treatment] #4 LEFT MEDIAL HEEL -Correct Patient No -Correct Side, Site, Position No -Correct Procedure No -Procedure Performed No -Post Debridement Size (cm) - Length 0 -Post Debridement Size (cm) - Width 0 -Post Debridement Size (cm) - Depth 0 -Total Square Cm 0 -Wound/Ulcer Outcome Healed- Epithelialized #3 RIGHT HEEL -Time 14:41 -Correct Patient Yes -Correct Side, Site, Position Yes -Correct Procedure Yes -Procedure Performed Yes -Type of Procedure Debridement -Clinical Debridement Subcutaneous -Post Debridement Size (cm) - Length 1.8 -Post Debridement Size (cm) - Width 2.1 -Post Debridement Size (cm) - Depth 0.2 -Total Square Cm 3.78 -Wound/Ulcer Outcome Not Healed -Ulcer Cleansing Rinsed/ Irrigated with Saline -Foul Odor after Cleansing No -Bioengineered Tissue No -Bleeding Controlled with Pressure -Treatment Response Procedure Tolerated Well [See Physician Procedure note for Specifics] Pain Scale: 0-10 Numeric [Pain] -Is Patient Pain Free? Yes Debridement Note Post-Debridement Measurements/Treatment IRON - Nurse 2 - General Ulcer CM Notes Start: 07/01/17 13:59 Freq: Status: Active Protocol: Activity Type Activity Date Activity User E-Sign Co-Sign Detail Recorded Client Recorded Date Recorded By Document 07/01/17 14:42 MW [id number] 07/01/17 14:47 MW Document 07/08/17 14:22 MW [id number] 07/08/17 14:26 MW Document 07/22/17 14:40 [id number] 07/22/17 14:44 07/01/17 07/08/17 07/22/17 14:42 14:22 14:40 Wound Center Nurse 2 #4 LEFT MEDIAL HEEL -Time 14:42 14:23 -Correct Patient Yes Yes No -Correct Side, Site, Position Yes Yes No -Correct Procedure Yes Yes No -Procedure Performed Yes Yes No -Type of Procedure Debridement Debridement -Clinical Debridement Subcutaneous Subcutaneous -Post Debridement Size (cm) - Length 0.5 0.6 0 -Post Debridement Size (cm) - Width 0.7 0.6 0 -Post Debridement Size (cm) - Depth 0.2 0.3 0 -Total Square Cm 0.35 0.36 0 -Wound/Ulcer Outcome Not Healed Not Healed Healed- Epithelialized -Ulcer Cleansing Rinsed/ Rinsed/ Irrigated with Irrigated with Saline Saline -Foul Odor after Cleansing No No -Bioengineered Tissue No No -Bleeding Controlled with Pressure Pressure -Treatment Response Procedure Procedure Tolerated Well Tolerated Well #3 RIGHT HEEL -Time 14:43 14:23 14:41 -Correct Patient Yes Yes Yes -Correct Side, Site, Position Yes Yes Yes -Correct Procedure Yes Yes Yes -Procedure Performed Yes Yes Yes -Type of Procedure Debridement Debridement Debridement -Clinical Debridement Subcutaneous Subcutaneous Subcutaneous -Post Debridement Size (cm) - Length 2.5 2.7 1.8 -Post Debridement Size (cm) - Width 2.2 1.8 2.1 -Post Debridement Size (cm) - Depth 0.2 0.2 0.2 -Total Square Cm 5.50 4.86 3.78 -Wound/Ulcer Outcome Not Healed Not Healed Not Healed -Ulcer Cleansing Rinsed/ Rinsed/ Rinsed/ Irrigated with Irrigated with Irrigated with Saline Saline Saline -Foul Odor after Cleansing No No No -Bioengineered Tissue No No No -Bleeding Controlled with Pressure Pressure Pressure -Treatment Response Procedure Not Procedure Procedure Tolerated Well Tolerated Well Tolerated Well Pain Scale: 0-10 Numeric Is Patient Pain Free? Yes Yes Yes Wound debrided: R heel Laterality: Right Wound Grade/Stage: Arizmendi grade 1 full thickness DFU Type of Debridement: Excisional debridement Anesthesia Used: 4% Lidocaine Solution Depth: Down to and including healthy tissue, in the subcutaneous layer Percentage of wound debrided: 100 Instrument Used: #15 blade Tissue Removed: fibrous slough, surrounding hyperkeratotic rim Severity: Fat Layer Exposed Amount of bleeding with debridement: Mild Bleeding Controlled with: Pressure, Compression and gauze Patient tolerated procedure well Assessment/Plan Active Problems (Last Reviewed 06/24/17 @ 11:41 by Velvet Cantu) Non-pressure chronic ulcer of right heel and midfoot with fat layer exposed (Acute) Diabetic foot ulcer associated with type 2 diabetes mellitus (Acute) Type 2 diabetes mellitus with diabetic polyneuropathy (Chronic) Assessment: See diagnoses. Plan: SQ/excisional debridement of R heel ulcer as above. L heel has healed. Smoking cessation has been recommended. Weight loss has been recommended. She has been advised to collaborate with her primary care physician to discuss weight loss options as well as quitting smoking. Referral to life insurance underwriter/dietitan provided previously--pt states she will not schedule an appointment due to money concerns. Underwent revascularization procedure by Dr. Robbins (01/09). Improving--cont jaden moistened with saline and gauze 3x/week. Rx rearfoot offloading shoe as well as CAM boot previously (whichever is less expensive) to be worn on RLE during ambulation, Rx (previously) prevalon heel offloading boot for RLE to be worn while resting or sleeping. Monitor for redness, pus, malodor, warmth, pain, swelling as well as N/V/F/C and go to the ED with these. Discussed risk of infection which could lead to amputation in diabetics with open wounds on the lower extremities--pt states she is aware of this risk. Ulcers continue to slowly improve, so continue current treatment for now--except I did reiterate the importance of offloading and advised her to get either the rearfoot offloading shoe or CAM boot JAIMIE. Pt is aware today is my last day at the wound center. Return in 1 week. Call wound center with questions or problems prior to f/u appt.
--- NOTE | 2017-07-22 14:57 | PN.PCM_ITS ---
(1) Non-pressure chronic ulcer of right heel and midfoot with fat layer exposed Status: Acute Current Visit: Yes Code(s): L97.412 - Non-pressure chronic ulcer of right heel and midfoot with fat layer exposed (2) Non-pressure chronic ulcer of left heel and midfoot with fat layer exposed Status: Resolved Current Visit: No Code(s): L97.422 - Non-pressure chronic ulcer of left heel and midfoot with fat layer exposed (3) Diabetic foot ulcer associated with type 2 diabetes mellitus Status: Acute Current Visit: Yes Code(s): E11.621 - Type 2 diabetes mellitus with foot ulcer; L97.509 - Non-pressure chronic ulcer of other part of unspecified foot with unspecified severity (4) Type 2 diabetes mellitus with diabetic polyneuropathy Status: Chronic Current Visit: Yes 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 She is unsure how they started. She has avoided coming here due to medical bills. Denies pus, malodor, warmth, pain, swelling. Admits to peeling skin off of her right heel after the ulcer started. Denies N/V/F/C. C/o chest pain today, and we recommended an ambulance, but the patient adamately refused. She states she has been having similar chest pain since last night, and she will go to the ED after she leaves here. 06/17--Applying jaden and dry dressing every other day. Denies pus, malodor, warmth, pain. Denies N/V/F/C. Did not yet get CAM boot due to cost. She is wearing slippers, so we will fashion an offloading shoe made out of a surgical shoe today for her to wear until she is able to get the CAM boot. She continues to smoke tobacco against advice. 06/24--Applying jaden and dry dressing every other day. Denies pus, malodor, warmth, pain. Denies N/V/F/C. Did not yet get CAM boot due to cost. She is wearing slippers with cutout paddin she made herself until she is able to get the CAM boot. She continues to smoke tobacco against advice. 07/01--Applying jaden and dry dressing every other day. Denies pus, malodor, warmth, pain. Denies N/V/F/C. Still did not yet get CAM boot due to cost. She is wearing slippers with cutout padding she made herself until she is able to get the CAM boot. She continues to smoke tobacco against advice. 07/08--Applying jaden and dry dressing every other day. Denies pus, malodor, warmth, pain. Denies N/V/F/C. Still did not yet get CAM boot due to cost. She is wearing slippers with cutout padding she made herself until she is able to get the CAM boot. Conitnues to improve, but she continues to smoke tobacco against advice. 07/22-- Applying jaden and dry dressing every other day. Denies pus, malodor, warmth, pain. Denies N/V/F/C. Still did not yet get CAM boot due to cost. She is wearing slippers with cutout padding she made herself until she is able to get the CAM boot. Ulcers continue to improve, but she also continues to smoke tobacco against advice. Her left heel ulceration is covered with epithelial tissue and has healed today. Progress of Wound: R heel improved, L heel healed - Physical Exam Vital Signs Temp Pulse Resp BP 97.1 F L 81 18 140/81 H 07/22/17 13:51 07/22/17 13:51 07/22/17 13:51 07/22/17 13:51 General: Alert, Oriented x3, Cooperative, No apparent distress Skin: Ulcer/ Wound - R plantar heel with no erythema, no calor, no purulent drainage, no malodor, minimal pain. No clinical signs of acute bacterial infection noted. See wound/edema assessment below. Left heel ulcer covered with epithelial tissue and has healed. Wound Measurements and Assessment WC - Nurse 1 - General Ulcer Measurement Start: 07/01/17 13:59 Freq: Status: Active Protocol: Activity Type Activity Date Activity User E-Sign Co-Sign Detail Recorded Client Recorded Date Recorded By Document 07/22/17 13:51 [id number] 07/22/17 14:00 07/22/17 13:51 Wound Center Nurse 1 [Ulcer Assessment] #4 LEFT MEDIAL HEEL -Combined with other wound No -Current Size (cm) - Length 0.1 -Current Size (cm) - Width 0.1 -Current Size (cm) - Depth 0.1 -Total Square Cm 0.01 -Photo Taken Yes -Epithelialization Small 1-33% -Tunneling No -Undermining/Tunneling No -Circular Undermining No -Exudate Amt None Present (0 %) -Wound Margin Flat & Intact -Granulation Amt None Present (0 %) -Slough/Fibrin Yes -Necrosis Amt Large (67-100%) -Necrotic Tissue Type Adherent Slough -Structure Exposed N/A -Texture (Loly-wound Skin Appearance) Assessed Callus -Moisture (Loly-wound Skin Appearance Assessed ) Dry/Scaly -Color (Loly-wound Skin Appearance) Assessed -Temperature (Loly-wound Skin No Abnormality Appearance) (Pt Warm) -Tenderness on Palpation (Loly-wound No Skin Appearance) -Ulcer Cleansing Rinsed/ Irrigated with Saline -Foul Odor after Cleansing No -Anesthetic Used 4% Lidocaine Solution #3 RIGHT HEEL -Combined with other wound No -Current Size (cm) - Length 1.8 -Current Size (cm) - Width 2.0 -Current Size (cm) - Depth 0.2 -Total Square Cm 3.60 -Photo Taken Yes -Epithelialization None Present -Tunneling No -Undermining/Tunneling No -Circular Undermining No -Exudate Amt Medium (34-66%) -Exudate Type Serosanguineous -Wound Margin Flat & Intact -Granulation Amt Medium (34-66%) -Granulation Quality Red -Slough/Fibrin Yes -Necrosis Amt Small (1-33%) -Necrotic Tissue Type Adherent Slough -Structure Exposed N/A -Texture (Loly-wound Skin Appearance) Assessed Callus -Moisture (Loly-wound Skin Appearance Assessed ) Dry/Scaly -Color (Loly-wound Skin Appearance) Assessed -Temperature (Loly-wound Skin No Abnormality Appearance) (Pt Warm) -Tenderness on Palpation (Loly-wound No Skin Appearance) -Ulcer Cleansing Rinsed/ Irrigated with Saline -Foul Odor after Cleansing No -Anesthetic Used 4% Lidocaine Solution [Edema Assessment] -Lower Limb Edema Present Yes -Right Calf (cm) 38.5 -Right Ankle (cm) 23.6 -Left Calf (cm) 39.4 -Left Ankle (cm) 21.7 WC - Nurse 2 - General Ulcer CM Notes Start: 07/01/17 13:59 Freq: Status: Active Protocol: Activity Type Activity Date Activity User E-Sign Co-Sign Detail Recorded Client Recorded Date Recorded By Document 07/22/17 14:40 [id number] 07/22/17 14:44 07/22/17 14:40 Wound Center Nurse 2 [Procedure/Treatment] #4 LEFT MEDIAL HEEL -Correct Patient No -Correct Side, Site, Position No -Correct Procedure No -Procedure Performed No -Post Debridement Size (cm) - Length 0 -Post Debridement Size (cm) - Width 0 -Post Debridement Size (cm) - Depth 0 -Total Square Cm 0 -Wound/Ulcer Outcome Healed- Epithelialized #3 RIGHT HEEL -Time 14:41 -Correct Patient Yes -Correct Side, Site, Position Yes -Correct Procedure Yes -Procedure Performed Yes -Type of Procedure Debridement -Clinical Debridement Subcutaneous -Post Debridement Size (cm) - Length 1.8 -Post Debridement Size (cm) - Width 2.1 -Post Debridement Size (cm) - Depth 0.2 -Total Square Cm 3.78 -Wound/Ulcer Outcome Not Healed -Ulcer Cleansing Rinsed/ Irrigated with Saline -Foul Odor after Cleansing No -Bioengineered Tissue No -Bleeding Controlled with Pressure -Treatment Response Procedure Tolerated Well [See Physician Procedure note for Specifics] Pain Scale: 0-10 Numeric [Pain] -Is Patient Pain Free? Yes Debridement Note Post-Debridement Measurements/Treatment IRON - Nurse 2 - General Ulcer CM Notes Start: 07/01/17 13:59 Freq: Status: Active Protocol: Activity Type Activity Date Activity User E-Sign Co-Sign Detail Recorded Client Recorded Date Recorded By Document 07/01/17 14:42 MW [id number] 07/01/17 14:47 MW Document 07/08/17 14:22 MW [id number] 07/08/17 14:26 MW Document 07/22/17 14:40 [id number] 07/22/17 14:44 07/01/17 07/08/17 07/22/17 14:42 14:22 14:40 Wound Center Nurse 2 #4 LEFT MEDIAL HEEL -Time 14:42 14:23 -Correct Patient Yes Yes No -Correct Side, Site, Position Yes Yes No -Correct Procedure Yes Yes No -Procedure Performed Yes Yes No -Type of Procedure Debridement Debridement -Clinical Debridement Subcutaneous Subcutaneous -Post Debridement Size (cm) - Length 0.5 0.6 0 -Post Debridement Size (cm) - Width 0.7 0.6 0 -Post Debridement Size (cm) - Depth 0.2 0.3 0 -Total Square Cm 0.35 0.36 0 -Wound/Ulcer Outcome Not Healed Not Healed Healed- Epithelialized -Ulcer Cleansing Rinsed/ Rinsed/ Irrigated with Irrigated with Saline Saline -Foul Odor after Cleansing No No -Bioengineered Tissue No No -Bleeding Controlled with Pressure Pressure -Treatment Response Procedure Procedure Tolerated Well Tolerated Well #3 RIGHT HEEL -Time 14:43 14:23 14:41 -Correct Patient Yes Yes Yes -Correct Side, Site, Position Yes Yes Yes -Correct Procedure Yes Yes Yes -Procedure Performed Yes Yes Yes -Type of Procedure Debridement Debridement Debridement -Clinical Debridement Subcutaneous Subcutaneous Subcutaneous -Post Debridement Size (cm) - Length 2.5 2.7 1.8 -Post Debridement Size (cm) - Width 2.2 1.8 2.1 -Post Debridement Size (cm) - Depth 0.2 0.2 0.2 -Total Square Cm 5.50 4.86 3.78 -Wound/Ulcer Outcome Not Healed Not Healed Not Healed -Ulcer Cleansing Rinsed/ Rinsed/ Rinsed/ Irrigated with Irrigated with Irrigated with Saline Saline Saline -Foul Odor after Cleansing No No No -Bioengineered Tissue No No No -Bleeding Controlled with Pressure Pressure Pressure -Treatment Response Procedure Not Procedure Procedure Tolerated Well Tolerated Well Tolerated Well Pain Scale: 0-10 Numeric Is Patient Pain Free? Yes Yes Yes Wound debrided: R heel Laterality: Right Wound Grade/Stage: Arizmendi grade 1 full thickness DFU Type of Debridement: Excisional debridement Anesthesia Used: 4% Lidocaine Solution Depth: Down to and including healthy tissue, in the subcutaneous layer Percentage of wound debrided: 100 Instrument Used: #15 blade Tissue Removed: fibrous slough, surrounding hyperkeratotic rim Severity: Fat Layer Exposed Amount of bleeding with debridement: Mild Bleeding Controlled with: Pressure, Compression and gauze Patient tolerated procedure well Assessment/Plan Active Problems (Last Reviewed 06/24/17 @ 11:41 by Velvet Cantu) Non-pressure chronic ulcer of right heel and midfoot with fat layer exposed ( Acute) Diabetic foot ulcer associated with type 2 diabetes mellitus (Acute) Type 2 diabetes mellitus with diabetic polyneuropathy (Chronic) Assessment: See diagnoses. Plan: SQ/excisional debridement of R heel ulcer as above. L heel has healed. Smoking cessation has been recommended. Weight loss has been recommended. She has been advised to collaborate with her primary care physician to discuss weight loss options as well as quitting smoking. Referral to senior master scheduler/ dietitan provided previously--pt states she will not schedule an appointment due to money concerns. Underwent revascularization procedure by Dr. Robbins (). Improving--cont jaden moistened with saline and gauze 3x/week. Rx rearfoot offloading shoe as well as CAM boot previously (whichever is less expensive) to be worn on RLE during ambulation, Rx (previously) prevalon heel offloading boot for RLE to be worn while resting or sleeping. Monitor for redness, pus, malodor, warmth, pain, swelling as well as N/V/F/C and go to the ED with these. Discussed risk of infection which could lead to amputation in diabetics with open wounds on the lower extremities--pt states she is aware of this risk. Ulcers continue to slowly improve, so continue current treatment for now--except I did reiterate the importance of offloading and advised her to get either the rearfoot offloading shoe or CAM boot JAIMIE. Pt is aware today is my last day at the wound center. Return in 1 week. Call wound center with questions or problems prior to f/u appt.
== END 2017-07-28 23:59 ==
LOC: WC 14:00
PROVIDERS: Family Provider Internal Medicine; PCP Internal Medicine; Visit Provider Nurse Practitioner
DX: E11.621 Type 2 diabetes mellitus with foot ulcer (principal); L97.422 Non-pressure chronic ulcer of left heel and midfoot with fat layer exposed; L97.412 Non-pressure chronic ulcer of right heel and midfoot with fat layer exposed; E11.42 Type 2 diabetes mellitus with diabetic polyneuropathy; F17.200 Nicotine dependence, unspecified, uncomplicated
CPT/HCPCS: 11042

== ENCOUNTER → 2017-08-12 12:52 | Outpatient (CLI) | payer MEDICARE, SELFPAY ==
--- NOTE | 2017-08-12 12:56 | ADUL_ITS ---
Reason For Study: atherosclerosis with gangrene Right Velocities Common Femoral Artery, dist = 151 cm./sec. Supf Femoral Artery, prox = 107 cm./sec. Supf Femoral Artery, mid = 171 cm./sec. Supf Femoral Artery, dist. = 95.3 cm./sec. Profunda Femoral Artery = 134 cm./sec. Popliteal Artery, mid = 77.8 cm./sec. Popliteal Artery, dist = 135 cm./sec. Post. Tibial Artery, prox = 116 cm./sec. Post. Tibial Artery, mid = 84.9 cm./sec. Post. Tibial Artery, dist = 105 cm./sec. Peroneal Artery,dist = 30.5 cm./sec. Ant. Tibial Artery, prox = 62.1 cm./sec. Ant. Tibial Artery, mid = 62.1 cm./sec. Ant. Tibial Artery, dist = 111 cm./sec. Interpretation Summary 1. right leg patent with no significant stenosis seen. Triphasic flow through anterior tibial and more biphasic on posterior tibial and near mono in peroneal. Ordering Physician: Arslan Robbins Referring Physician: Arslan Robbins Performed By: Abdoul Porter, RVT
--- NOTE | 2017-08-13 08:06 | LEAS ---
Arterial Study - Arterial Study Arterial Study: Date of scan 08/12/[address] Robbins History: Patient with history gangrene and atherosclerosis Interpretation: Right lower extremity with normal pulsatile flow down from the ankle up through the digits ankle-brachial pressure with 1.18 of the posterior tibial 0.99 of the dorsalis pedis with both having triphasic flow. Digital brachial index of 1.04. Left lower extremity again also with normal pulsatile flow from the ankle out through the digits ROSETTA 1.16 of the posterior tibial 1.1 to the dorsalis pedis. Both vessels again with triphasic flow noted. Impression: 1. Bilateral lower extremities with no evidence of significant arterial occlusive disease at rest with an ROSETTA 1.18 on the right 1.16 on the left with triphasic flow
== END ==
PROVIDERS: Family Provider Internal Medicine; PCP Internal Medicine; Visit Provider Surgery Vascular Surgery
DX: I70.261 Atherosclerosis of native arteries of extremities with gangrene, right leg (principal); N28.9 Disorder of kidney and ureter, unspecified; E78.00 Pure hypercholesterolemia, unspecified; I10 Essential (primary) hypertension; E11.9 Type 2 diabetes mellitus without complications; M35.9 Systemic involvement of connective tissue, unspecified; J45.909 Unspecified asthma, uncomplicated; M19.90 Unspecified osteoarthritis, unspecified site; F41.9 Anxiety disorder, unspecified
CPT/HCPCS: 93922; 93926

== ENCOUNTER 2017-08-15 10:45 | Outpatient (RCR) | payer MEDICARE, SELFPAY ==
[2017-07-29 00:56] VITALS: PULSE 81; RESP 18; TEMP 36.2
[2017-08-01 10:24] VITALS: BP 117/64; PULSE 76; RESP 18; TEMP 35.9
--- NOTE | 2017-08-04 14:15 | PCM.WC.PN ---
(1) Diabetic foot ulcer associated with type 2 diabetes mellitus Status: Acute Current Visit: No Qualifiers: Diabetic foot ulcer location: heel Laterality: right Non-pressure ulcer stage: limited to breakdown of skin Qualified Code(s): E11.621 - Type 2 diabetes mellitus with foot ulcer; L97.411 - Non-pressure chronic ulcer of right heel and midfoot limited to breakdown of skin Code(s): E11.621 - Type 2 diabetes mellitus with foot ulcer; L97.509 - Non-pressure chronic ulcer of other part of unspecified foot with unspecified severity (2) Type 2 diabetes mellitus with foot ulcer Status: Chronic Current Visit: No Code(s): E11.621 - Type 2 diabetes mellitus with foot ulcer; L97.509 - Non-pressure chronic ulcer of other part of unspecified foot with unspecified severity (3) COPD (chronic obstructive pulmonary disease) Status: Chronic Current Visit: No Code(s): J44.9 - Chronic obstructive pulmonary disease, unspecified (4) History of gout Status: Chronic Current Visit: No Code(s): Z87.39 - Personal history of other diseases of the musculoskeletal system and connective tissue (5) Type 2 diabetes mellitus with diabetic polyneuropathy Status: Chronic Current Visit: No Qualifiers: Code(s): E11.42 - Type 2 diabetes mellitus with diabetic polyneuropathy Type of Wound Date of Service: 08/15/17 Chief Complaint: R foot DFU History of Wound: 57 year old woman with r DFU heel willy 1. Hx of many feet ulcers that heal well Progress of Wound: today the DFU is small than last seen by Dr Worley in July 22 - Physical Exam Vital Signs Temp Pulse Resp BP 96.6 F L 76 18 117/64 08/01/17 10:24 08/01/17 10:24 08/01/17 10:24 08/01/17 10:24 General: Oriented x3, Cooperative, Well developed HEENT: Atraumatic, PERRLA Oral: Moist Mucosa Neck: Supple, No JVD Lungs: Clear to auscultation, Normal air movement Cardiovascular: Regular rate, Regular Rhythm Abdomen: Bowel Sounds Present, Soft, Non Tender, No Hepato-splenomegaly Extremities: No clubbing, No edema, - - r heel ulcer Skin: Ulcer/ Wound - R Musculoskeletal: No Tenderness to Palpation of Joints or Extremities Lymphatic: No Cervical, Supraclavicular, or Inguinal Adenopathy Neurological: Cranial nerves II-XII grossly intact, Neuro grossly intact Psych/Mental Status: Normal Affect, Appropriate Debridement Note Post-Debridement Measurements/Treatment WC - Nurse 2 - General Ulcer CM Notes Start: 08/01/17 10:24 Freq: Status: Active Protocol: Activity Type Activity Date Activity User E-Sign Co-Sign Detail Recorded Client Recorded Date Recorded By Document 08/01/17 11:53 [id number] 08/01/17 12:09 08/01/17 11:53 Wound Center Nurse 2 #3 RIGHT HEEL -Time 11:53 -Correct Patient Yes -Correct Side, Site, Position Yes -Correct Procedure Yes -Procedure Performed Yes -Type of Procedure Debridement -Clinical Debridement Subcutaneous -Post Debridement Size (cm) - Length 1.8 -Post Debridement Size (cm) - Width 1.8 -Post Debridement Size (cm) - Depth 0.2 -Total Square Cm 3.24 -Wound/Ulcer Outcome Not Healed -Ulcer Cleansing Rinsed/ Irrigated with Saline -Foul Odor after Cleansing No -Bioengineered Tissue No -Topical Lidocaine (%) 5 -Bleeding Controlled with Pressure -Treatment Response Procedure Tolerated Well Pain Scale: 0-10 Numeric Is Patient Pain Free? Yes Wound debrided: r hel ulcer Type of Debridement: Excisional debridement Anesthesia Used: 5% Lidocaine Gel Depth: Down to and including healthy tissue, in the subcutaneous layer Instrument Used: 5mm curette, #15 blade, Forceps Tissue Removed: fibrin and callus Severity: Limited To Skin Breakdown Amount of bleeding with debridement: Moderate Bleeding Controlled with: Compression and gauze Patient tolerated procedure well Assessment/Plan Assessment: See diagnoses. Plan: SQ/excisional debridement of R heel ulcer as above. L heel has healed. Smoking cessation has been recommended. Weight loss has been recommended. She has been advised to collaborate with her primary care physician to discuss weight loss options as well as quitting smoking. Referral to developer programmer analyst/dietitan provided previously--pt states she will not schedule an appointment due to money concerns. Underwent revascularization procedure by Dr. Robbins (01/09). Improving--cont jaden moistened with saline and gauze 3x/week. Rx rearfoot offloading shoe as well as CAM boot previously (whichever is less expensive) to be worn on RLE during ambulation, Rx (previously) prevalon heel offloading boot for RLE to be worn while resting or sleeping. Monitor for redness, pus, malodor, warmth, pain, swelling as well as N/V/F/C and go to the ED with these. Discussed risk of infection which could lead to amputation in diabetics with open wounds on the lower extremities--pt states she is aware of this risk. Ulcers continue to slowly improve, so continue current treatment for now--except I did reiterate the importance of offloading and advised her to get either the rearfoot offloading shoe or CAM boot JAIMIE. Return in 1 week. Call wound center with questions or problems prior to f/u appt.
--- NOTE | 2017-08-04 14:24 | PN.PCM_ITS ---
(1) Diabetic foot ulcer associated with type 2 diabetes mellitus Status: Acute Current Visit: No Qualifiers: Diabetic foot ulcer location: heel Laterality: right Non-pressure ulcer stage: limited to breakdown of skin Qualified Code(s): E11.621 - Type 2 diabetes mellitus with foot ulcer; L97.411 - Non-pressure chronic ulcer of right heel and midfoot limited to breakdown of skin Code(s): E11.621 - Type 2 diabetes mellitus with foot ulcer; L97.509 - Non- pressure chronic ulcer of other part of unspecified foot with unspecified severity (2) Type 2 diabetes mellitus with foot ulcer Status: Chronic Current Visit: No Code(s): E11.621 - Type 2 diabetes mellitus with foot ulcer; L97.509 - Non-pressure chronic ulcer of other part of unspecified foot with unspecified severity (3) COPD (chronic obstructive pulmonary disease) Status: Chronic Current Visit: No Code(s): J44.9 - Chronic obstructive pulmonary disease, unspecified (4) History of gout Status: Chronic Current Visit: No Code(s): Z87.39 - Personal history of other diseases of the musculoskeletal system and connective tissue (5) Type 2 diabetes mellitus with diabetic polyneuropathy Status: Chronic Current Visit: No Qualifiers: Code(s): E11.42 - Type 2 diabetes mellitus with diabetic polyneuropathy Type of Wound Date of Service: 08/15/17 Chief Complaint: R foot DFU History of Wound: 57 year old woman with r DFU heel willy 1. Hx of many feet ulcers that heal well Progress of Wound: today the DFU is small than last seen by Dr Worley in July 22 - Physical Exam Vital Signs Temp Pulse Resp BP 96.6 F L 76 18 117/64 08/01/17 10:24 08/01/17 10:24 08/01/17 10:24 08/01/17 10:24 General: Oriented x3, Cooperative, Well developed HEENT: Atraumatic, PERRLA Oral: Moist Mucosa Neck: Supple, No JVD Lungs: Clear to auscultation, Normal air movement Cardiovascular: Regular rate, Regular Rhythm Abdomen: Bowel Sounds Present, Soft, Non Tender, No Hepato-splenomegaly Extremities: No clubbing, No edema, - - r heel ulcer Skin: Ulcer/ Wound - R Musculoskeletal: No Tenderness to Palpation of Joints or Extremities Lymphatic: No Cervical, Supraclavicular, or Inguinal Adenopathy Neurological: Cranial nerves II-XII grossly intact, Neuro grossly intact Psych/Mental Status: Normal Affect, Appropriate Debridement Note Post-Debridement Measurements/Treatment WC - Nurse 2 - General Ulcer CM Notes Start: 08/01/17 10:24 Freq: Status: Active Protocol: Activity Type Activity Date Activity User E-Sign Co-Sign Detail Recorded Client Recorded Date Recorded By Document 08/01/17 11:53 [id number] 08/01/17 12:09 08/01/17 11:53 Wound Center Nurse 2 #3 RIGHT HEEL -Time 11:53 -Correct Patient Yes -Correct Side, Site, Position Yes -Correct Procedure Yes -Procedure Performed Yes -Type of Procedure Debridement -Clinical Debridement Subcutaneous -Post Debridement Size (cm) - Length 1.8 -Post Debridement Size (cm) - Width 1.8 -Post Debridement Size (cm) - Depth 0.2 -Total Square Cm 3.24 -Wound/Ulcer Outcome Not Healed -Ulcer Cleansing Rinsed/ Irrigated with Saline -Foul Odor after Cleansing No -Bioengineered Tissue No -Topical Lidocaine (%) 5 -Bleeding Controlled with Pressure -Treatment Response Procedure Tolerated Well Pain Scale: 0-10 Numeric Is Patient Pain Free? Yes Wound debrided: r hel ulcer Type of Debridement: Excisional debridement Anesthesia Used: 5% Lidocaine Gel Depth: Down to and including healthy tissue, in the subcutaneous layer Instrument Used: 5mm curette, #15 blade, Forceps Tissue Removed: fibrin and callus Severity: Limited To Skin Breakdown Amount of bleeding with debridement: Moderate Bleeding Controlled with: Compression and gauze Patient tolerated procedure well Assessment/Plan Assessment: See diagnoses. Plan: SQ/excisional debridement of R heel ulcer as above. L heel has healed. Smoking cessation has been recommended. Weight loss has been recommended. She has been advised to collaborate with her primary care physician to discuss weight loss options as well as quitting smoking. Referral to x ray physician/ dietitan provided previously--pt states she will not schedule an appointment due to money concerns. Underwent revascularization procedure by Dr. Robbins (). Improving--cont jaden moistened with saline and gauze 3x/week. Rx rearfoot offloading shoe as well as CAM boot previously (whichever is less expensive) to be worn on RLE during ambulation, Rx (previously) prevalon heel offloading boot for RLE to be worn while resting or sleeping. Monitor for redness, pus, malodor, warmth, pain, swelling as well as N/V/F/C and go to the ED with these. Discussed risk of infection which could lead to amputation in diabetics with open wounds on the lower extremities--pt states she is aware of this risk. Ulcers continue to slowly improve, so continue current treatment for now--except I did reiterate the importance of offloading and advised her to get either the rearfoot offloading shoe or CAM boot JAIMIE. Return in 1 week. Call wound center with questions or problems prior to f/u appt.
[2017-08-15 11:20] VITALS: BP 118/71; PULSE 68; RESP 20; TEMP 36
--- NOTE | 2017-08-15 13:55 | PCM.WC.PN ---
(1) Diabetic foot ulcer associated with type 2 diabetes mellitus Status: Acute Current Visit: No Qualifiers: Diabetic foot ulcer location: heel Laterality: right Non-pressure ulcer stage: limited to breakdown of skin Qualified Code(s): E11.621 - Type 2 diabetes mellitus with foot ulcer; L97.411 - Non-pressure chronic ulcer of right heel and midfoot limited to breakdown of skin Code(s): E11.621 - Type 2 diabetes mellitus with foot ulcer; L97.509 - Non-pressure chronic ulcer of other part of unspecified foot with unspecified severity (2) Type 2 diabetes mellitus with foot ulcer Status: Chronic Current Visit: No Code(s): E11.621 - Type 2 diabetes mellitus with foot ulcer; L97.509 - Non-pressure chronic ulcer of other part of unspecified foot with unspecified severity (3) COPD (chronic obstructive pulmonary disease) Status: Chronic Current Visit: Yes Code(s): J44.9 - Chronic obstructive pulmonary disease, unspecified (4) History of gout Status: Chronic Current Visit: Yes Code(s): Z87.39 - Personal history of other diseases of the musculoskeletal system and connective tissue (5) Type 2 diabetes mellitus with diabetic polyneuropathy Status: Chronic Current Visit: Yes Qualifiers: Code(s): E11.42 - Type 2 diabetes mellitus with diabetic polyneuropathy Type of Wound Date of Service: 08/15/17 Chief Complaint: R foot DFU History of Wound: 57 year old woman with r DFU heel willy 1. Hx of many feet ulcers that heal well Progress of Wound: today the DFU is sllightly smaller. still has alot of callus around the edge that is debrided weekly with sharps. Patient still not real compliant with off loading and has refused anything like a special shoe or cast or anything because of her balance - Physical Exam Vital Signs Temp Pulse Resp BP 96.8 F L 68 20 H 118/71 08/15/17 11:20 08/15/17 11:20 08/15/17 11:20 08/15/17 11:20 General: Oriented x3, Cooperative, Well developed HEENT: Atraumatic, PERRLA Oral: Moist Mucosa Neck: Supple, No JVD Lungs: Clear to auscultation, Normal air movement Cardiovascular: Regular rate, Regular Rhythm Abdomen: Bowel Sounds Present, Soft, Non Tender, No Hepato-splenomegaly Extremities: No clubbing, No edema, Edema - Right heel DFU Wound Measurements and Assessment WC - Nurse 1 - General Ulcer Measurement Start: 08/01/17 10:24 Freq: Status: Active Protocol: Activity Type Activity Date Activity User E-Sign Co-Sign Detail Recorded Client Recorded Date Recorded By Document 08/15/17 11:20 DL [id number] 08/15/17 11:26 DL 08/15/17 11:20 Wound Center Nurse 1 [Ulcer Assessment] #3 RIGHT HEEL -Current Size (cm) - Length 1.3 -Current Size (cm) - Width 1.6 -Current Size (cm) - Depth 0.2 -Total Square Cm 2.08 -Photo Taken No -Undermining/Tunneling Starts (O' 10 clock) -Undermining/Tunneling Ends (O'clock) 2 -Maximum Distance (cm) 0.2 -Exudate Amt Small (1-33%) -Exudate Type Serosanguineous -Wound Margin Thickened -Granulation Amt Large (67-100%) -Granulation Quality [place] -Necrosis Amt Small (1-33%) -Necrotic Tissue Type Adherent Slough -Structure Exposed N/A -Texture (Loly-wound Skin Appearance) Callus -Moisture (Loly-wound Skin Appearance Dry/Scaly ) -Color (Loly-wound Skin Appearance) No Abnormality -Temperature (Loly-wound Skin No Abnormality Appearance) (Pt Warm) -Ulcer Cleansing Rinsed/ Irrigated with Saline -Foul Odor after Cleansing No -Anesthetic Used 4% Lidocaine Solution [Edema Assessment] -Right Calf (cm) 38.5 -Right Ankle (cm) 23 WC - Nurse 2 - General Ulcer CM Notes Start: 08/01/17 10:24 Freq: Status: Active Protocol: Activity Type Activity Date Activity User E-Sign Co-Sign Detail Recorded Client Recorded Date Recorded By Document 08/15/17 11:55 [email or web address] [id number] 08/15/17 12:10 08/15/17 11:55 Wound Center Nurse 2 [Procedure/Treatment] #3 RIGHT HEEL -Time 11:55 -Correct Patient Yes -Correct Side, Site, Position Yes -Correct Procedure Yes -Procedure Performed Yes -Type of Procedure Debridement -Clinical Debridement Subcutaneous -Post Debridement Size (cm) - Length 1.5 -Post Debridement Size (cm) - Width 1.7 -Post Debridement Size (cm) - Depth 0.3 -Total Square Cm 2.55 -Wound/Ulcer Outcome Converted -Ulcer Cleansing Rinsed/ Irrigated with Saline -Foul Odor after Cleansing No -Bioengineered Tissue No -Topical Lidocaine (%) 4 -Lidocaine (ml) 5 -Bleeding Controlled with NA -Treatment Response Procedure Tolerated Well [See Physician Procedure note for Specifics] Pain Scale: 0-10 Numeric [Pain] -Is Patient Pain Free? Yes Musculoskeletal: No Tenderness to Palpation of Joints or Extremities Lymphatic: No Cervical, Supraclavicular, or Inguinal Adenopathy Neurological: Cranial nerves II-XII grossly intact, Neuro grossly intact Psych/Mental Status: Normal Affect, Appropriate, Alert and oriented to time, place, person, mood and affect Debridement Note Post-Debridement Measurements/Treatment WC - Nurse 2 - General Ulcer CM Notes Start: 08/01/17 10:24 Freq: Status: Active Protocol: Activity Type Activity Date Activity User E-Sign Co-Sign Detail Recorded Client Recorded Date Recorded By Document 08/01/17 11:53 [id number] 08/01/17 12:09 Document 08/15/17 11:55 [id number] 08/15/17 12:10 08/01/17 08/15/17 11:53 11:55 Wound Center Nurse 2 #3 RIGHT HEEL -Time 11:53 11:55 -Correct Patient Yes Yes -Correct Side, Site, Position Yes Yes -Correct Procedure Yes Yes -Procedure Performed Yes Yes -Type of Procedure Debridement Debridement -Clinical Debridement Subcutaneous Subcutaneous -Post Debridement Size (cm) - Length 1.8 1.5 -Post Debridement Size (cm) - Width 1.8 1.7 -Post Debridement Size (cm) - Depth 0.2 0.3 -Total Square Cm 3.24 2.55 -Wound/Ulcer Outcome Not Healed Converted -Ulcer Cleansing Rinsed/ Rinsed/ Irrigated with Irrigated with Saline Saline -Foul Odor after Cleansing No No -Bioengineered Tissue No No -Topical Lidocaine (%) 5 4 -Lidocaine (ml) 5 -Bleeding Controlled with Pressure NA -Treatment Response Procedure Procedure Tolerated Well Tolerated Well Pain Scale: 0-10 Numeric Is Patient Pain Free? Yes Yes Wound debrided: Right heel DFU Wound Grade/Stage: Scott 2 Type of Debridement: Excisional debridement Anesthesia Used: 5% Lidocaine Gel Depth: Down to and including healthy tissue, in the subcutaneous layer, to muscle Percentage of wound debrided: 100 Instrument Used: 5mm curette, #15 blade Tissue Removed: Callus and fibrin Amount of bleeding with debridement: Moderate Bleeding Controlled with: Compression and gauze Patient tolerated procedure well Assessment/Plan Active Problems (Last Reviewed 06/24/17 @ 11:41 by Pamela Cantu) Type 2 diabetes mellitus with diabetic polyneuropathy (Chronic) History of gout (Chronic) COPD (chronic obstructive pulmonary disease) (Chronic) Assessment: Type II diabetic. Tobacco abuser. DFU Scott to right foot heel Plan: Wash the foot with Hibiclens continue to apply Kim moistened with Adaptic gauze and tape. Offload as much as possible. Follow up in 1 week
--- NOTE | 2017-08-15 15:26 | PN.PCM_ITS ---
(1) Diabetic foot ulcer associated with type 2 diabetes mellitus Status: Acute Current Visit: No Qualifiers: Diabetic foot ulcer location: heel Laterality: right Non-pressure ulcer stage: limited to breakdown of skin Qualified Code(s): E11.621 - Type 2 diabetes mellitus with foot ulcer; L97.411 - Non-pressure chronic ulcer of right heel and midfoot limited to breakdown of skin Code(s): E11.621 - Type 2 diabetes mellitus with foot ulcer; L97.509 - Non- pressure chronic ulcer of other part of unspecified foot with unspecified severity (2) Type 2 diabetes mellitus with foot ulcer Status: Chronic Current Visit: No Code(s): E11.621 - Type 2 diabetes mellitus with foot ulcer; L97.509 - Non-pressure chronic ulcer of other part of unspecified foot with unspecified severity (3) COPD (chronic obstructive pulmonary disease) Status: Chronic Current Visit: Yes Code(s): J44.9 - Chronic obstructive pulmonary disease, unspecified (4) History of gout Status: Chronic Current Visit: Yes Code(s): Z87.39 - Personal history of other diseases of the musculoskeletal system and connective tissue (5) Type 2 diabetes mellitus with diabetic polyneuropathy Status: Chronic Current Visit: Yes Qualifiers: Code(s): E11.42 - Type 2 diabetes mellitus with diabetic polyneuropathy Type of Wound Date of Service: 08/15/17 Chief Complaint: R foot DFU History of Wound: 57 year old woman with r DFU heel willy 1. Hx of many feet ulcers that heal well Progress of Wound: today the DFU is sllightly smaller. still has alot of callus around the edge that is debrided weekly with sharps. Patient still not real compliant with off loading and has refused anything like a special shoe or cast or anything because of her balance - Physical Exam Vital Signs Temp Pulse Resp BP 96.8 F L 68 20 H 118/71 08/15/17 11:20 08/15/17 11:20 08/15/17 11:20 08/15/17 11:20 General: Oriented x3, Cooperative, Well developed HEENT: Atraumatic, PERRLA Oral: Moist Mucosa Neck: Supple, No JVD Lungs: Clear to auscultation, Normal air movement Cardiovascular: Regular rate, Regular Rhythm Abdomen: Bowel Sounds Present, Soft, Non Tender, No Hepato-splenomegaly Extremities: No clubbing, No edema, Edema - Right heel DFU Wound Measurements and Assessment WC - Nurse 1 - General Ulcer Measurement Start: 08/01/17 10:24 Freq: Status: Active Protocol: Activity Type Activity Date Activity User E-Sign Co-Sign Detail Recorded Client Recorded Date Recorded By Document 08/15/17 11:20 DL [id number] 08/15/17 11:26 DL 08/15/17 11:20 Wound Center Nurse 1 [Ulcer Assessment] #3 RIGHT HEEL -Current Size (cm) - Length 1.3 -Current Size (cm) - Width 1.6 -Current Size (cm) - Depth 0.2 -Total Square Cm 2.08 -Photo Taken No -Undermining/Tunneling Starts (O' 10 clock) -Undermining/Tunneling Ends (O'clock) 2 -Maximum Distance (cm) 0.2 -Exudate Amt Small (1-33%) -Exudate Type Serosanguineous -Wound Margin Thickened -Granulation Amt Large (67-100%) -Granulation Quality Retsof -Necrosis Amt Small (1-33%) -Necrotic Tissue Type Adherent Slough -Structure Exposed N/A -Texture (Loly-wound Skin Appearance) Callus -Moisture (Loly-wound Skin Appearance Dry/Scaly ) -Color (Loly-wound Skin Appearance) No Abnormality -Temperature (Loly-wound Skin No Abnormality Appearance) (Pt Warm) -Ulcer Cleansing Rinsed/ Irrigated with Saline -Foul Odor after Cleansing No -Anesthetic Used 4% Lidocaine Solution [Edema Assessment] -Right Calf (cm) 38.5 -Right Ankle (cm) 23 WC - Nurse 2 - General Ulcer CM Notes Start: 08/01/17 10:24 Freq: Status: Active Protocol: Activity Type Activity Date Activity User E-Sign Co-Sign Detail Recorded Client Recorded Date Recorded By Document 08/15/17 11:55 DESTINEY [id number] 08/15/17 12:10 08/15/17 11:55 Wound Center Nurse 2 [Procedure/Treatment] #3 RIGHT HEEL -Time 11:55 -Correct Patient Yes -Correct Side, Site, Position Yes -Correct Procedure Yes -Procedure Performed Yes -Type of Procedure Debridement -Clinical Debridement Subcutaneous -Post Debridement Size (cm) - Length 1.5 -Post Debridement Size (cm) - Width 1.7 -Post Debridement Size (cm) - Depth 0.3 -Total Square Cm 2.55 -Wound/Ulcer Outcome Converted -Ulcer Cleansing Rinsed/ Irrigated with Saline -Foul Odor after Cleansing No -Bioengineered Tissue No -Topical Lidocaine (%) 4 -Lidocaine (ml) 5 -Bleeding Controlled with NA -Treatment Response Procedure Tolerated Well [See Physician Procedure note for Specifics] Pain Scale: 0-10 Numeric [Pain] -Is Patient Pain Free? Yes Musculoskeletal: No Tenderness to Palpation of Joints or Extremities Lymphatic: No Cervical, Supraclavicular, or Inguinal Adenopathy Neurological: Cranial nerves II-XII grossly intact, Neuro grossly intact Psych/Mental Status: Normal Affect, Appropriate, Alert and oriented to time, place, person, mood and affect Debridement Note Post-Debridement Measurements/Treatment WC - Nurse 2 - General Ulcer CM Notes Start: 08/01/17 10:24 Freq: Status: Active Protocol: Activity Type Activity Date Activity User E-Sign Co-Sign Detail Recorded Client Recorded Date Recorded By Document 08/01/17 11:53 [email or web address] 08/01/17 12:09 Document 08/15/17 11:55 [id number] 08/15/17 12:10 08/01/17 08/15/17 11:53 11:55 Wound Center Nurse 2 #3 RIGHT HEEL -Time 11:53 11:55 -Correct Patient Yes Yes -Correct Side, Site, Position Yes Yes -Correct Procedure Yes Yes -Procedure Performed Yes Yes -Type of Procedure Debridement Debridement -Clinical Debridement Subcutaneous Subcutaneous -Post Debridement Size (cm) - Length 1.8 1.5 -Post Debridement Size (cm) - Width 1.8 1.7 -Post Debridement Size (cm) - Depth 0.2 0.3 -Total Square Cm 3.24 2.55 -Wound/Ulcer Outcome Not Healed Converted -Ulcer Cleansing Rinsed/ Rinsed/ Irrigated with Irrigated with Saline Saline -Foul Odor after Cleansing No No -Bioengineered Tissue No No -Topical Lidocaine (%) 5 4 -Lidocaine (ml) 5 -Bleeding Controlled with Pressure NA -Treatment Response Procedure Procedure Tolerated Well Tolerated Well Pain Scale: 0-10 Numeric Is Patient Pain Free? Yes Yes Wound debrided: Right heel DFU Wound Grade/Stage: Scott 2 Type of Debridement: Excisional debridement Anesthesia Used: 5% Lidocaine Gel Depth: Down to and including healthy tissue, in the subcutaneous layer, to muscle Percentage of wound debrided: 100 Instrument Used: 5mm curette, #15 blade Tissue Removed: Callus and fibrin Amount of bleeding with debridement: Moderate Bleeding Controlled with: Compression and gauze Patient tolerated procedure well Assessment/Plan Active Problems (Last Reviewed 06/24/17 @ 11:41 by Pamela Cantu) Type 2 diabetes mellitus with diabetic polyneuropathy (Chronic) History of gout (Chronic) COPD (chronic obstructive pulmonary disease) (Chronic) Assessment: Type II diabetic. Tobacco abuser. DFU Scott to right foot heel Plan: Wash the foot with Hibiclens continue to apply Kim moistened with Adaptic gauze and tape. Offload as much as possible. Follow up in 1 week
== END 2017-08-28 23:59 ==
LOC: WC 10:45
PROVIDERS: Family Provider Internal Medicine; PCP Internal Medicine; Visit Provider Nurse Practitioner
DX: E11.621 Type 2 diabetes mellitus with foot ulcer (principal); L97.411 Non-pressure chronic ulcer of right heel and midfoot limited to breakdown of skin; J44.9 Chronic obstructive pulmonary disease, unspecified; Z87.39 Personal history of other diseases of the musculoskeletal system and connective tissue; E11.42 Type 2 diabetes mellitus with diabetic polyneuropathy
CPT/HCPCS: 11042; 87070; 87075; 87077; 87186; 87205

== ENCOUNTER 2017-09-01 15:00 | Outpatient (RCR) | payer MEDICARE, SELFPAY ==
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
--- NOTE | 2017-09-01 15:00 | DT_ITS ---
This patient was seen during an EMR downtime September 01, 2017 - September 08, 2017. This patient may have a combination of paper and electronic documentation or all paper documentation. All documentation is viewable within the e-chart portion of [facility] for each patient visit.
--- NOTE | 2017-09-27 17:39 | HP.PTDCNRP_ITS ---
HP - Discharge Summary (1) - Patient Information ALEAH BARKER was seen in my office for initial evaluation on 08/27/17. The following Plan of Care was established for this patient: Initial Frequency: 2-3x /Week Initial Duration: 4-6 Weeks - Anticipated Interventions Patient/Client Instruction: Educate patient on: Condition, Plan of Care, Risk Factors, Benefits of Fitness Program For the Purpose of:: To improve self management Therapeutic Exercise to Include: Strength training, Endurance training, Balance training, Body mechanics, Postural training, Flexibilty training, Gait and locomotor training, Active ROM, Dynamic Lumbar Stabilization For the Purpose of:: To improve muscle performance and motor function, To increase tolerance to activity/condition/position, To improve performance and independence with ADL's, To improve ability of physical actions for home/ community/work/leisure, To improve gait and locomotor functions, To improve safety with gait This patient was last seen in our office 09/01/17. Pertinent comments regarding their Physical therapy will appear below: This patient has not returned to Physical Therapy and is appropriate to return to MD for further follow-up as needed. At this point I will be discontinuing this patient from physical therapy. I would be happy to see this patient again in the future if found appropriate by the physician. Thank you! Meghan Pruett
== END 2017-09-01 19:00 | disposition home or self-care (01) ==
LOC: PT 15:00
PROVIDERS: Family Provider Internal Medicine; PCP Internal Medicine; Visit Provider Internal Medicine
DX: M54.17 Radiculopathy, lumbosacral region (principal)
CPT/HCPCS: 97110; 97163

== ENCOUNTER 2017-09-26 09:30 | Outpatient (RCR) | payer MEDICARE, SELFPAY ==
[2017-08-29 00:48] VITALS: BP 118/71; PULSE 68; RESP 20; TEMP 36
[2017-08-29 08:37] VITALS: BP 143/80; PULSE 62; RESP 18; TEMP 36
--- NOTE | 2017-08-29 10:01 | PN.PCM_ITS ---
(1) Decubitus ulcer of right heel, stage 3 Status: Acute Current Visit: Yes Code(s): L89.613 - Pressure ulcer of right heel, stage 3 (2) Diabetic foot ulcer associated with type 2 diabetes mellitus Status: Acute Current Visit: No Qualifiers: Diabetic foot ulcer location: midfoot Non-pressure ulcer stage: limited to breakdown of skin Code(s): E11.621 - Type 2 diabetes mellitus with foot ulcer; L97.509 - Non- pressure chronic ulcer of other part of unspecified foot with unspecified severity (3) Tobacco abuse counseling Status: Acute Current Visit: No Code(s): Z71.6 - Tobacco abuse counseling (4) Arthritis Status: Chronic Current Visit: No Code(s): M19.90 - Unspecified osteoarthritis, unspecified site (5) Hypertension Status: Chronic Current Visit: No Code(s): I10 - Essential (primary) hypertension (6) Non-pressure chronic ulcer of other part of right foot limited to breakdown of skin Status: Chronic Current Visit: Yes Code(s): L97.511 - Non-pressure chronic ulcer of other part of right foot limited to breakdown of skin Type of Wound Date of Service: 08/29/17 Chief Complaint: R foot DFU History of Wound: 57 year old woman with r DFU heel willy 1. Hx of many feet ulcers that heal well Progress of Wound: today the first metatarsal ulcer of the left foot DFU is sllightly smaller . Still has alot of callus around the edge that is debrided weekly with sharps. Patient still not real compliant with off loading and has refused anything like a special shoe or cast or anything because of her balance and money. She still refuses to stop smoking. Today patient developed a new ulcer on her right heel. Again a lot of callus that had to be debrided around the ulcer which made it a little bit bigger. Patient's left leg infection goes redness with cellulitis up the mid calf patient is currently taking clindamycin 300 mg 3 times daily and will leave her on it continuously for now. She develops a lot of yeast infections and cannot afford a good probiotics so Diflucan was given to her 100 mg p.o. daily. Patient was also encouraged to eat Dannon yogurt. - Physical Exam Vital Signs Temp Pulse Resp BP 96.8 F L 62 18 143/80 H 08/29/17 08:37 06/01/18 08:37 08/29/17 08:37 08/29/17 08:37 General: Oriented x3, Cooperative, Well developed HEENT: Atraumatic, PERRLA Oral: Moist Mucosa Neck: Supple, No JVD Lungs: Clear to auscultation, Normal air movement Cardiovascular: Regular rate, Regular Rhythm Abdomen: Bowel Sounds Present, Soft, Non Tender, No Hepato-splenomegaly Extremities: No clubbing, No edema Skin: Ulcer/ Wound - Right heel ulcer stage III and left foot first metatarsal head ulcer on foot Wound Measurements and Assessment WC - Nurse 1 - General Ulcer Measurement Start: 08/29/17 08:36 Freq: Status: Active Protocol: Activity Type Activity Date Activity User E-Sign Co-Sign Detail Recorded Client Recorded Date Recorded By Document 08/29/17 08:37 DESTINEY [id number] 08/29/17 08:53 DESTINEY 08/29/17 08:37 Wound Center Nurse 1 [Ulcer Assessment] #5 LEFT PLANTAR GREAT TOE (Base) -Combined with other wound No -Current Size (cm) - Length 1.3 -Current Size (cm) - Width 2.5 -Current Size (cm) - Depth 0.3 -Total Square Cm 3.25 -Date of Last Picture (Recall this 08/29/17 field) -Photo Taken Yes -Epithelialization None Present -Tunneling No -Undermining/Tunneling No -Circular Undermining No -Classification - Thickness Full Thickness without Exposed Support Structure -Classification - Arizmendi Grading ( Grade 1 Diabetic Ulcer) -Exudate Amt Medium (34-66%) -Exudate Type Serosanguineous -Wound Margin Distinct, Outline Attached -Granulation Amt None Present (0 %) -Granulation Quality N/A -Slough/Fibrin Yes -Necrosis Amt None Present (0 %) -Necrotic Tissue Type Adherent Slough -Structure Exposed None/Limited to Skin Breakdown -Texture (Loly-wound Skin Appearance) Callus -Moisture (Loly-wound Skin Appearance No Abnormality ) -Color (Loly-wound Skin Appearance) No Abnormality -Temperature (Loly-wound Skin No Abnormality Appearance) (Pt Warm) -Tenderness on Palpation (Loly-wound No Skin Appearance) -Ulcer Cleansing Rinsed/ Irrigated with Saline -Foul Odor after Cleansing No -Anesthetic Used 4% Lidocaine Solution #3 RIGHT HEEL -Combined with other wound No -Current Size (cm) - Length 1.4 -Current Size (cm) - Width 1.3 -Current Size (cm) - Depth 0.3 -Total Square Cm 1.82 -Date of Last Picture (Recall this 08/29/17 field) -Photo Taken Yes -Epithelialization None Present -Tunneling No -Undermining/Tunneling No -Circular Undermining No -Classification - Thickness Full Thickness without Exposed Support Structure -Classification - Arizmendi Grading ( Grade 1 Diabetic Ulcer) -Change in Wound Grade/Stage No Query Text:If change please identify the Stage/Grade in the comment (ie. S2 G3) -Exudate Amt None Present (0 %) -Wound Margin Distinct, Outline Attached -Granulation Amt None Present (0 %) -Granulation Quality N/A -Slough/Fibrin Yes -Necrosis Amt None Present (0 %) -Necrotic Tissue Type Adherent Slough -Structure Exposed N/A -Texture (Loly-wound Skin Appearance) Callus -Moisture (Loly-wound Skin Appearance No Abnormality ) -Color (Loly-wound Skin Appearance) No Abnormality -Temperature (Loly-wound Skin No Abnormality Appearance) (Pt Warm) -Tenderness on Palpation (Loly-wound No Skin Appearance) -Ulcer Cleansing Rinsed/ Irrigated with Saline -Foul Odor after Cleansing No -Anesthetic Used 4% Lidocaine Solution [Edema Assessment] -Lower Limb Edema Present Yes -Right Calf (cm) 40.0 -Right Ankle (cm) 25.5 -Left Calf (cm) 41.0 -Left Ankle (cm) 27.0 WC - Nurse 2 - General Ulcer CM Notes Start: 08/29/17 08:36 Freq: Status: Active Protocol: Activity Type Activity Date Activity User E-Sign Co-Sign Detail Recorded Client Recorded Date Recorded By Document 08/29/17 09:07 SHAREE [id number] 08/29/17 09:16 SHAREE 08/29/17 09:07 Wound Center Nurse 2 [Procedure/Treatment] #5 LEFT PLANTAR GREAT TOE (Base) -Time 09:08 -Correct Patient Yes -Correct Side, Site, Position Yes -Correct Procedure Yes -Procedure Performed Yes -Type of Procedure Debridement -Clinical Debridement Subcutaneous -Post Debridement Size (cm) - Length 1.2 -Post Debridement Size (cm) - Width 1.6 -Post Debridement Size (cm) - Depth 0.2 -Total Square Cm 1.92 -Wound/Ulcer Outcome Not Healed -Ulcer Cleansing Rinsed/ Irrigated with Saline -Foul Odor after Cleansing No -Bioengineered Tissue No -Bleeding Controlled with Pressure -Treatment Response Procedure Tolerated Well #3 RIGHT HEEL -Time 09:08 -Correct Patient Yes -Correct Side, Site, Position Yes -Correct Procedure Yes -Procedure Performed Yes -Type of Procedure Debridement -Clinical Debridement Subcutaneous -Post Debridement Size (cm) - Length 1.9 -Post Debridement Size (cm) - Width 1.9 -Post Debridement Size (cm) - Depth 0.2 -Total Square Cm 3.61 -Wound/Ulcer Outcome Not Healed -Ulcer Cleansing Rinsed/ Irrigated with Saline -Foul Odor after Cleansing No -Bioengineered Tissue No -Bleeding Controlled with Pressure -Treatment Response Procedure Tolerated Well [See Physician Procedure note for Specifics] Pain Scale: 0-10 Numeric [Pain] -Is Patient Pain Free? Yes Musculoskeletal: No Tenderness to Palpation of Joints or Extremities Lymphatic: No Cervical, Supraclavicular, or Inguinal Adenopathy Neurological: Cranial nerves II-XII grossly intact, Neuro grossly intact Psych/Mental Status: Normal Affect, Appropriate Debridement Note Post-Debridement Measurements/Treatment WC - Nurse 2 - General Ulcer CM Notes Start: 08/29/17 08:36 Freq: Status: Active Protocol: Activity Type Activity Date Activity User E-Sign Co-Sign Detail Recorded Client Recorded Date Recorded By Document 18 09:07 SHAREE [id number] 08/29/17 09:16 SHAREE 08/29/17 09:07 Wound Center Nurse 2 #5 LEFT PLANTAR GREAT TOE (Base) -Time 09:08 -Correct Patient Yes -Correct Side, Site, Position Yes -Correct Procedure Yes -Procedure Performed Yes -Type of Procedure Debridement -Clinical Debridement Subcutaneous -Post Debridement Size (cm) - Length 1.2 -Post Debridement Size (cm) - Width 1.6 -Post Debridement Size (cm) - Depth 0.2 -Total Square Cm 1.92 -Wound/Ulcer Outcome Not Healed -Ulcer Cleansing Rinsed/ Irrigated with Saline -Foul Odor after Cleansing No -Bioengineered Tissue No -Bleeding Controlled with Pressure -Treatment Response Procedure Tolerated Well #3 RIGHT HEEL -Time 09:08 -Correct Patient Yes -Correct Side, Site, Position Yes -Correct Procedure Yes -Procedure Performed Yes -Type of Procedure Debridement -Clinical Debridement Subcutaneous -Post Debridement Size (cm) - Length 1.9 -Post Debridement Size (cm) - Width 1.9 -Post Debridement Size (cm) - Depth 0.2 -Total Square Cm 3.61 -Wound/Ulcer Outcome Not Healed -Ulcer Cleansing Rinsed/ Irrigated with Saline -Foul Odor after Cleansing No -Bioengineered Tissue No -Bleeding Controlled with Pressure -Treatment Response Procedure Tolerated Well Pain Scale: 0-10 Numeric Is Patient Pain Free? Yes Wound debrided: Left first metatarsal head Type of Debridement: Excisional debridement Anesthesia Used: 5% Lidocaine Gel Depth: in the subcutaneous layer Percentage of wound debrided: 100 Instrument Used: 7mm curette, - - scissors Tissue Removed: Callus and fibrin Amount of bleeding with debridement: Mild Bleeding Controlled with: Compression and gauze Patient tolerated procedure well - Additional Wound Wound debrided: Right heel ulcer Wound Grade/Stage: Stage III Type of Debridement: Excisional debridement Anesthesia Used: 5% Lidocaine Gel Depth: Down to and including healthy tissue, in the subcutaneous layer Percentage of wound debrided: 100 Instrument Used: 7mm curette, - - Scissors Tissue Removed: Callus and fibrin Severity: Limited To Skin Breakdown Amount of bleeding with debridement: Mild Bleeding Controlled with: Compression and gauze Patient tolerated procedure: Patient tolerated procedure well Assessment/Plan Active Problems (Last Updated 08/19/17 @ 09:45 by Patricia Hanks) Decubitus ulcer of right heel, stage 3 (Acute) Non-pressure chronic ulcer of other part of right foot limited to breakdown of skin (Chronic) Assessment: Type II diabetic. Tobacco abuser. DFU Scott 2 to right foot heel Plan: Wash the foot with Hibiclens continue to apply Kim moistened with Adaptic gauze and tape qd dressijng changes. Offload as much as possible. continue the clindamycin 300 mg orally tid continuously. Follow up in 1 week
[2017-09-12 08:39] VITALS: BP 129/68; PULSE 69; RESP 22; TEMP 36.6
--- NOTE | 2017-09-12 09:36 | PN.PCM_ITS ---
(1) Decubitus ulcer of right heel, stage 3 Status: Acute Current Visit: Yes Code(s): L89.613 - Pressure ulcer of right heel, stage 3 (2) Diabetic foot ulcer associated with type 2 diabetes mellitus Status: Acute Current Visit: No Qualifiers: Diabetic foot ulcer location: midfoot Non-pressure ulcer stage: limited to breakdown of skin Code(s): E11.621 - Type 2 diabetes mellitus with foot ulcer; L97.509 - Non- pressure chronic ulcer of other part of unspecified foot with unspecified severity (3) Tobacco abuse counseling Status: Acute Current Visit: No Code(s): Z71.6 - Tobacco abuse counseling (4) Arthritis Status: Chronic Current Visit: No Code(s): M19.90 - Unspecified osteoarthritis, unspecified site (5) Hypertension Status: Chronic Current Visit: No Code(s): I10 - Essential (primary) hypertension (6) Non-pressure chronic ulcer of other part of right foot limited to breakdown of skin Status: Chronic Current Visit: Yes Code(s): L97.511 - Non-pressure chronic ulcer of other part of right foot limited to breakdown of skin Type of Wound Date of Service: 09/12/17 Chief Complaint: R foot DFU History of Wound: 57 year old woman with r DFU heel willy 1. Hx of many feet ulcers that heal well Progress of Wound: today the first metatarsal ulcer of the left foot DFU is sllightly smaller . Still has alot of callus around the edge that is debrided weekly with sharps. 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 She has refused anything like a special shoe or cast or anything because of her balance and money. She still refuses to stop smoking. Today patient developed a new ulcer on her right heel. Again a lot of callus that had to be debrided around the ulcer which made it a little bit bigger. Patient's left leg infection goes redness with cellulitis up the mid calf patient is currently taking clindamycin 300 mg 3 times daily and will leave her on it continuously for now. She develops a lot of yeast infections and cannot afford a good probiotics so Diflucan was given to her 100 mg p.o. daily. Patient was also encouraged to eat Dannon yogurt. Patient continues to take clindamycin 3 times a day has a few days left. We will week culture her next week. Order antibiotic for a Velcro shoe without a heel to offload that right foot. - Physical Exam Vital Signs Temp Pulse Resp BP 98 F 69 22 H 129/68 H 09/12/17 08:39 09/12/17 08:39 09/12/17 08:39 09/12/17 08:39 General: Oriented x3, Cooperative, Well developed HEENT: Atraumatic, PERRLA Oral: Moist Mucosa Neck: Supple, No JVD Lungs: Clear to auscultation, Normal air movement Cardiovascular: Regular rate, Regular Rhythm Abdomen: Bowel Sounds Present, Soft, Non Tender, No Hepato-splenomegaly Extremities: No clubbing, No edema, - - Left foot first metatarsal head ulcer and right heel decubitus ulcer Wound Measurements and Assessment WC - Nurse 1 - General Ulcer Measurement Start: 08/29/17 08:36 Freq: Status: Active Protocol: Activity Type Activity Date Activity User E-Sign Co-Sign Detail Recorded Client Recorded Date Recorded By Document 09/12/17 08:39 DL [id number] 09/12/17 08:49 DL 09/12/17 08:39 Wound Center Nurse 1 [Ulcer Assessment] #5 LEFT PLANTAR GREAT TOE (Base) -Current Size (cm) - Length 0.8 -Current Size (cm) - Width 1.2 -Current Size (cm) - Depth 0.1 -Total Square Cm 0.96 -Photo Taken No -Exudate Amt Small (1-33%) -Exudate Type Serosanguineous -Wound Margin Thickened -Granulation Amt Medium (34-66%) -Granulation Quality [place] [facility] [place] -Necrosis Amt Medium (34-66%) -Necrotic Tissue Type Adherent Slough -Structure Exposed N/A -Texture (Loly-wound Skin Appearance) Callus -Moisture (Loly-wound Skin Appearance Maceration ) -Color (Loly-wound Skin Appearance) No Abnormality -Temperature (Loly-wound Skin No Abnormality Appearance) (Pt Warm) -Tenderness on Palpation (Loly-wound No Skin Appearance) -Ulcer Cleansing Rinsed/ Irrigated with Saline -Foul Odor after Cleansing No -Anesthetic Used 4% Lidocaine Solution #3 RIGHT HEEL -Current Size (cm) - Length 1.3 -Current Size (cm) - Width 1.3 -Current Size (cm) - Depth 0.5 -Total Square Cm 1.69 -Photo Taken No -Exudate Amt Small (1-33%) -Exudate Type Serosanguineous -Wound Margin Thickened & Rolled Under -Granulation Amt Small (1-33%) -Granulation Quality [place] [facility] [place] -Necrosis Amt Large (67-100%) -Necrotic Tissue Type Adherent Slough -Structure Exposed N/A -Texture (Loly-wound Skin Appearance) Callus -Moisture (Loly-wound Skin Appearance Maceration ) -Color (Loly-wound Skin Appearance) No Abnormality -Temperature (Loly-wound Skin No Abnormality Appearance) (Pt Warm) -Tenderness on Palpation (Loly-wound No Skin Appearance) -Ulcer Cleansing Rinsed/ Irrigated with Saline -Foul Odor after Cleansing No -Anesthetic Used 4% Lidocaine Solution [Edema Assessment] -Right Calf (cm) 37.5 -Right Ankle (cm) 23.4 -Left Calf (cm) 37.7 -Left Ankle (cm) 23 WC - Nurse 2 - General Ulcer CM Notes Start: 08/29/17 08:36 Freq: Status: Active Protocol: Activity Type Activity Date Activity User E-Sign Co-Sign Detail Recorded Client Recorded Date Recorded By Document 09/12/17 09:13 DV [id number] 09/12/17 09:18 DV 09/12/17 09:13 Wound Center Nurse 2 [Procedure/Treatment] #5 LEFT PLANTAR GREAT TOE (Base) -Time 09:14 -Correct Patient Yes -Correct Side, Site, Position Yes -Correct Procedure Yes -Procedure Performed Yes -Type of Procedure Debridement -Clinical Debridement Subcutaneous -Post Debridement Size (cm) - Length 1.2 -Post Debridement Size (cm) - Width 1.5 -Post Debridement Size (cm) - Depth 0.2 -Total Square Cm 1.80 -Wound/Ulcer Outcome Not Healed -Ulcer Cleansing Rinsed/ Irrigated with Saline -Foul Odor after Cleansing No -Bioengineered Tissue No -Bleeding Controlled with Pressure -Treatment Response Procedure Tolerated Well #3 RIGHT HEEL -Time 09:15 -Correct Patient Yes -Correct Side, Site, Position Yes -Correct Procedure Yes -Procedure Performed Yes -Type of Procedure Debridement -Clinical Debridement Subcutaneous -Post Debridement Size (cm) - Length 1.8 -Post Debridement Size (cm) - Width 2.0 -Post Debridement Size (cm) - Depth 0.3 -Total Square Cm 3.60 -Wound/Ulcer Outcome Not Healed -Ulcer Cleansing Rinsed/ Irrigated with Saline -Foul Odor after Cleansing No -Bioengineered Tissue No -Bleeding Controlled with Pressure -Treatment Response Procedure Tolerated Well [See Physician Procedure note for Specifics] Pain Scale: 0-10 Numeric [Pain] -Is Patient Pain Free? Yes Musculoskeletal: No Tenderness to Palpation of Joints or Extremities Lymphatic: No Cervical, Supraclavicular, or Inguinal Adenopathy Neurological: Cranial nerves II-XII grossly intact, Neuro grossly intact Psych/Mental Status: Normal Affect, Appropriate Debridement Note Post-Debridement Measurements/Treatment WC - Nurse 2 - General Ulcer CM Notes Start: 08/29/17 08:36 Freq: Status: Active Protocol: Activity Type Activity Date Activity User E-Sign Co-Sign Detail Recorded Client Recorded Date Recorded By Document 08/29/17 09:07 SHAREE [id number] 08/29/17 09:16 JF Document 09/12/17 09:13 DV [id number] 09/12/17 09:18 DV 08/29/17 09/12/17 09:07 09:13 Wound Center Nurse 2 #5 LEFT PLANTAR GREAT TOE (Base) -Time 09:08 09:14 -Correct Patient Yes Yes -Correct Side, Site, Position Yes Yes -Correct Procedure Yes Yes -Procedure Performed Yes Yes -Type of Procedure Debridement Debridement -Clinical Debridement Subcutaneous Subcutaneous -Post Debridement Size (cm) - Length 1.2 1.2 -Post Debridement Size (cm) - Width 1.6 1.5 -Post Debridement Size (cm) - Depth 0.2 0.2 -Total Square Cm 1.92 1.80 -Wound/Ulcer Outcome Not Healed Not Healed -Ulcer Cleansing Rinsed/ Rinsed/ Irrigated with Irrigated with Saline Saline -Foul Odor after Cleansing No No -Bioengineered Tissue No No -Bleeding Controlled with Pressure Pressure -Treatment Response Procedure Procedure Tolerated Well Tolerated Well #3 RIGHT HEEL -Time 09:08 09:15 -Correct Patient Yes Yes -Correct Side, Site, Position Yes Yes -Correct Procedure Yes Yes -Procedure Performed Yes Yes -Type of Procedure Debridement Debridement -Clinical Debridement Subcutaneous Subcutaneous -Post Debridement Size (cm) - Length 1.9 1.8 -Post Debridement Size (cm) - Width 1.9 2.0 -Post Debridement Size (cm) - Depth 0.2 0.3 -Total Square Cm 3.61 3.60 -Wound/Ulcer Outcome Not Healed Not Healed -Ulcer Cleansing Rinsed/ Rinsed/ Irrigated with Irrigated with Saline Saline -Foul Odor after Cleansing No No -Bioengineered Tissue No No -Bleeding Controlled with Pressure Pressure -Treatment Response Procedure Procedure Tolerated Well Tolerated Well Pain Scale: 0-10 Numeric Is Patient Pain Free? Yes Yes Wound debrided: Left foot first metatarsal head ulcer Type of Debridement: Excisional debridement Anesthesia Used: 5% Lidocaine Gel Depth: Down to and including healthy tissue, in the subcutaneous layer Percentage of wound debrided: 100 Instrument Used: 7mm curette, #10 blade Tissue Removed: Callus fibrin Severity: Limited To Skin Breakdown Amount of bleeding with debridement: Mild Bleeding Controlled with: Compression and gauze Patient tolerated procedure well - Additional Wound Wound debrided: Right DFU ulcer Type of Debridement: Excisional debridement Anesthesia Used: 5% Lidocaine Gel Depth: Down to and including healthy tissue, in the subcutaneous layer Percentage of wound debrided: 100 Instrument Used: 7mm curette, #10 blade Tissue Removed: Fibrin callus Severity: Limited To Skin Breakdown Amount of bleeding with debridement: Mild Bleeding Controlled with: Compression and gauze Patient tolerated procedure: Patient tolerated procedure well Assessment/Plan Active Problems (Last Updated 08/19/17 @ 09:45 by Patricia Hanks) Decubitus ulcer of right heel, stage 3 (Acute) Non-pressure chronic ulcer of other part of right foot limited to breakdown of skin (Chronic) Assessment: Type II diabetic. Tobacco abuser. DFU Scott 2 to right foot heel Plan: Wash the right and left foot with Hibiclens continue to apply fibricol moistened with Adaptic gauze and tape qd dressijng changes. Offload as much as possible follow-up with you and keep bionics for new shoe. continue the clindamycin 300 mg orally tid continuously. Follow up in 1 week
[2017-09-19 09:23] VITALS: BP 126/64; PULSE 68; RESP 18; TEMP 36.1
--- NOTE | 2017-09-19 13:29 | PCM.WC.PN ---
(1) Decubitus ulcer of right heel, stage 3 Status: Acute Current Visit: Yes Code(s): L89.613 - Pressure ulcer of right heel, stage 3 (2) Diabetic foot ulcer associated with type 2 diabetes mellitus Status: Acute Current Visit: Yes Qualifiers: Diabetic foot ulcer location: midfoot Non-pressure ulcer stage: limited to breakdown of skin Code(s): E11.621 - Type 2 diabetes mellitus with foot ulcer; L97.509 - Non-pressure chronic ulcer of other part of unspecified foot with unspecified severity (3) Tobacco abuse counseling Status: Acute Current Visit: Yes Code(s): Z71.6 - Tobacco abuse counseling (4) Arthritis Status: Chronic Current Visit: Yes Code(s): M19.90 - Unspecified osteoarthritis, unspecified site (5) Hypertension Status: Chronic Current Visit: Yes Code(s): I10 - Essential (primary) hypertension (6) Non-pressure chronic ulcer of other part of right foot limited to breakdown of skin Status: Chronic Current Visit: Yes Code(s): L97.511 - Non-pressure chronic ulcer of other part of right foot limited to breakdown of skin (7) Infected decubitus ulcer Status: Acute Current Visit: Yes Code(s): L89.90 - Pressure ulcer of unspecified site, unspecified stage; L08.9 - Local infection of the skin and subcutaneous tissue, unspecified Type of Wound Date of Service: 09/19/17 Chief Complaint: R foot DFU History of Wound: 57 year old woman with r DFU heel willy 1. Hx of many feet ulcers that heal well Progress of Wound: today the first metatarsal ulcer of the left foot DFU is sllightly smaller . Still has alot of callus around the edge that is debrided weekly with sharps. 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 She has refused anything like a special shoe or cast or anything because of her balance and money. She still refuses to stop smoking. Patient other ulcer on her right heel has slightly increased in size are about the same and appears infected we will reculture today. Patient was approved for epi fix and we split epi fix between the toe and the heel today #1 applied. Again a lot of callus that had to be debrided around the ulcer which made it a little bit bigger. Patient was also encouraged to eat Dannon yogurt. We cultured today the right heel. Patient has an appointment with [facility] September 23 for new shoes offload that right foot and left foot. - Physical Exam Vital Signs Temp Pulse Resp BP 97 F L 68 18 126/64 H 09/19/17 09:23 09/19/17 09:23 09/19/17 09:23 09/19/17 09:23 General: Oriented x3, Cooperative, Well developed HEENT: Atraumatic, PERRLA Oral: Moist Mucosa Neck: Supple, No JVD Lungs: Clear to auscultation, Normal air movement Cardiovascular: Regular rate, Regular Rhythm Abdomen: Bowel Sounds Present, Soft, Non Tender, No Hepato-splenomegaly Extremities: No clubbing, No edema Skin: Ulcer/ Wound - Left foot first metatarsal head right heel ulcer Wound Measurements and Assessment WC - Nurse 1 - General Ulcer Measurement Start: 08/29/17 08:36 Freq: Status: Active Protocol: Activity Type Activity Date Activity User E-Sign Co-Sign Detail Recorded Client Recorded Date Recorded By Document 09/19/17 09:23 [id number] 09/19/17 09:27 DL 09/19/17 09:23 Wound Center Nurse 1 [Ulcer Assessment] #5 LEFT PLANTAR GREAT TOE (Base) -Current Size (cm) - Length 0.8 -Current Size (cm) - Width 0.7 -Current Size (cm) - Depth 0.2 -Total Square Cm 0.56 -Photo Taken No -Exudate Amt Small (1-33%) -Exudate Type Serosanguineous -Wound Margin Thickened -Granulation Amt Large (67-100%) -Granulation Quality [place] -Necrosis Amt Small (1-33%) -Necrotic Tissue Type Adherent Slough -Structure Exposed N/A -Texture (Loly-wound Skin Appearance) Callus -Moisture (Loly-wound Skin Appearance Maceration ) -Color (Loly-wound Skin Appearance) No Abnormality -Temperature (Loly-wound Skin No Abnormality Appearance) (Pt Warm) -Ulcer Cleansing Wound Cleanser -Foul Odor after Cleansing No -Anesthetic Used 4% Lidocaine Solution #3 RIGHT HEEL -Current Size (cm) - Length 1.2 -Current Size (cm) - Width 1.4 -Current Size (cm) - Depth 0.5 -Total Square Cm 1.68 -Photo Taken No -Undermining/Tunneling Starts (O' 10 clock) -Undermining/Tunneling Ends (O'clock) 3 -Maximum Distance (cm) 0.2 -Exudate Amt Medium (34-66%) -Exudate Type Serosanguineous -Wound Margin Thickened -Granulation Amt Medium (34-66%) -Granulation Quality Pale [place] -Necrosis Amt Medium (34-66%) -Necrotic Tissue Type Adherent Slough -Structure Exposed N/A -Texture (Loly-wound Skin Appearance) Callus -Moisture (Loly-wound Skin Appearance Maceration ) -Color (Loly-wound Skin Appearance) No Abnormality -Temperature (Loly-wound Skin No Abnormality Appearance) (Pt Warm) -Tenderness on Palpation (Loly-wound No Skin Appearance) -Ulcer Cleansing Wound Cleanser -Foul Odor after Cleansing No -Anesthetic Used 4% Lidocaine Solution [Edema Assessment] -Right Calf (cm) 36 -Right Ankle (cm) 22.2 -Left Calf (cm) 37 -Left Ankle (cm) 21.8 WC - Nurse 2 - General Ulcer CM Notes Start: 08/29/17 08:36 Freq: Status: Active Protocol: Activity Type Activity Date Activity User E-Sign Co-Sign Detail Recorded Client Recorded Date Recorded By Document 09/19/17 10:49 [id number] 09/19/17 11:08 09/19/17 10:49 Wound Center Nurse 2 [Procedure/Treatment] #5 LEFT PLANTAR GREAT TOE (Base) -Time 10:49 -Correct Patient Yes -Correct Side, Site, Position Yes -Correct Procedure Yes -Procedure Performed Yes -Type of Procedure Debridement -Clinical Debridement Subcutaneous -Post Debridement Size (cm) - Length 1.5 -Post Debridement Size (cm) - Width 1.4 -Post Debridement Size (cm) - Depth 0.2 -Total Square Cm 2.10 -Wound/Ulcer Outcome Not Healed -Ulcer Cleansing Rinsed/ Irrigated with Saline -Foul Odor after Cleansing No -Bioengineered Tissue Yes -Type of bioengineered Tissue EPIFIX -Expiration Date 05/29/22 -Product Lot Number [id number] -Percent Used 50 -Topical Lidocaine (%) 4 -Bleeding Controlled with NA -Other HYDROGEL -Treatment Response Procedure Tolerated Well #3 RIGHT HEEL -Time 10:55 -Correct Patient Yes -Correct Side, Site, Position Yes -Correct Procedure Yes -Procedure Performed Yes -Type of Procedure Debridement -Clinical Debridement Subcutaneous -Post Debridement Size (cm) - Length 1.7 -Post Debridement Size (cm) - Width 1.7 -Post Debridement Size (cm) - Depth 0.3 -Total Square Cm 2.89 -Wound/Ulcer Outcome Not Healed -Ulcer Cleansing Rinsed/ Irrigated with Saline -Foul Odor after Cleansing No -Bioengineered Tissue Yes -Type of bioengineered Tissue EPIFIX -Expiration Date 05/29/22 -Product Lot Number [id number] -Percent Used 50 -Topical Lidocaine (%) 4 -Bleeding Controlled with NA -Other HYDROGEL -Treatment Response Procedure Tolerated Well [See Physician Procedure note for Specifics] Pain Scale: 0-10 Numeric [Pain] -Is Patient Pain Free? Yes Musculoskeletal: No Tenderness to Palpation of Joints or Extremities Lymphatic: No Cervical, Supraclavicular, or Inguinal Adenopathy Neurological: Cranial nerves II-XII grossly intact, Neuro grossly intact Psych/Mental Status: Normal Affect, Appropriate Debridement Note Post-Debridement Measurements/Treatment WC - Nurse 2 - General Ulcer CM Notes Start: 08/29/17 08:36 Freq: Status: Active Protocol: Activity Type Activity Date Activity User E-Sign Co-Sign Detail Recorded Client Recorded Date Recorded By Document 08/29/17 09:07 [id number] 08/29/17 09:16 Document 09/12/17 09:13 DV [id number] 09/12/17 09:18 DV Document 09/19/17 10:49 [id number] 09/19/17 11:08 08/29/17 09/12/17 09/19/17 09:07 09:13 10:49 Wound Center Nurse 2 #5 LEFT PLANTAR GREAT TOE (Base) -Time 09:08 09:14 10:49 -Correct Patient Yes Yes Yes -Correct Side, Site, Position Yes Yes Yes -Correct Procedure Yes Yes Yes -Procedure Performed Yes Yes Yes -Type of Procedure Debridement Debridement Debridement -Clinical Debridement Subcutaneous Subcutaneous Subcutaneous -Post Debridement Size (cm) - Length 1.2 1.2 1.5 -Post Debridement Size (cm) - Width 1.6 1.5 1.4 -Post Debridement Size (cm) - Depth 0.2 0.2 0.2 -Total Square Cm 1.92 1.80 2.10 -Wound/Ulcer Outcome Not Healed Not Healed Not Healed -Ulcer Cleansing Rinsed/ Rinsed/ Rinsed/ Irrigated with Irrigated with Irrigated with Saline Saline Saline -Foul Odor after Cleansing No No No -Bioengineered Tissue No No Yes -Type of bioengineered Tissue EPIFIX -Expiration Date 05/29/22 -Product Lot Number [id number] -Percent Used 50 -Topical Lidocaine (%) 4 -Bleeding Controlled with Pressure Pressure NA -Other HYDROGEL -Treatment Response Procedure Procedure Procedure Tolerated Well Tolerated Well Tolerated Well #3 RIGHT HEEL -Time 09:08 09:15 10:55 -Correct Patient Yes Yes Yes -Correct Side, Site, Position Yes Yes Yes -Correct Procedure Yes Yes Yes -Procedure Performed Yes Yes Yes -Type of Procedure Debridement Debridement Debridement -Clinical Debridement Subcutaneous Subcutaneous Subcutaneous -Post Debridement Size (cm) - Length 1.9 1.8 1.7 -Post Debridement Size (cm) - Width 1.9 2.0 1.7 -Post Debridement Size (cm) - Depth 0.2 0.3 0.3 -Total Square Cm 3.61 3.60 2.89 -Wound/Ulcer Outcome Not Healed Not Healed Not Healed -Ulcer Cleansing Rinsed/ Rinsed/ Rinsed/ Irrigated with Irrigated with Irrigated with Saline Saline Saline -Foul Odor after Cleansing No No No -Bioengineered Tissue No No Yes -Type of bioengineered Tissue EPIFIX -Expiration Date 05/29/22 -Product Lot Number [id number] -Percent Used 50 -Topical Lidocaine (%) 4 -Bleeding Controlled with Pressure Pressure NA -Other HYDROGEL -Treatment Response Procedure Procedure Procedure Tolerated Well Tolerated Well Tolerated Well Pain Scale: 0-10 Numeric Is Patient Pain Free? Yes Yes Yes Wound debrided: First metatarsal head left foot Type of Debridement: Excisional debridement Anesthesia Used: 5% Lidocaine Gel Depth: Down to and including healthy tissue, in the subcutaneous layer Percentage of wound debrided: 100 Instrument Used: 5mm curette, #15 blade Tissue Removed: Fibrin callus Severity: Limited To Skin Breakdown Amount of bleeding with debridement: Moderate Bleeding Controlled with: Compression and gauze Patient tolerated procedure well - Additional Wound Wound debrided: Right heel Type of Debridement: Excisional debridement Anesthesia Used: 5% Lidocaine Gel Depth: Down to and including healthy tissue, in the subcutaneous layer Percentage of wound debrided: 100 Instrument Used: 5mm curette Tissue Removed: Callus fibrin slough Severity: Limited To Skin Breakdown Amount of bleeding with debridement: Moderate Bleeding Controlled with: Compression and gauze Patient tolerated procedure: Patient tolerated procedure well Assessment/Plan Active Problems (Last Updated 08/19/17 @ 09:45 by Patricia Hanks) Decubitus ulcer of right heel, stage 3 (Acute) Infected decubitus ulcer (Acute) Arthritis (Chronic) Hypertension (Chronic) Diabetic foot ulcer associated with type 2 diabetes mellitus (Acute) Non-pressure chronic ulcer of other part of right foot limited to breakdown of skin (Chronic) Tobacco abuse counseling (Acute) Assessment: Type II diabetic. Tobacco abuser. DFU Scott 2 to right foot heel. First metatarsal head ulcer left foot Plan: Applied #1 epi fix between the 2 ulcers covered with hydrogel veil Steri-Strips and protective padded gauze dressings. Offload as much as possible follow-up with you and keep bionics for new shoe. All with culture results. Follow up in 1 week
--- NOTE | 2017-09-19 13:39 | PN.PCM_ITS ---
(1) Decubitus ulcer of right heel, stage 3 Status: Acute Current Visit: Yes Code(s): L89.613 - Pressure ulcer of right heel, stage 3 (2) Diabetic foot ulcer associated with type 2 diabetes mellitus Status: Acute Current Visit: Yes Qualifiers: Diabetic foot ulcer location: midfoot Non-pressure ulcer stage: limited to breakdown of skin Code(s): E11.621 - Type 2 diabetes mellitus with foot ulcer; L97.509 - Non- pressure chronic ulcer of other part of unspecified foot with unspecified severity (3) Tobacco abuse counseling Status: Acute Current Visit: Yes Code(s): Z71.6 - Tobacco abuse counseling (4) Arthritis Status: Chronic Current Visit: Yes Code(s): M19.90 - Unspecified osteoarthritis, unspecified site (5) Hypertension Status: Chronic Current Visit: Yes Code(s): I10 - Essential (primary) hypertension (6) Non-pressure chronic ulcer of other part of right foot limited to breakdown of skin Status: Chronic Current Visit: Yes Code(s): L97.511 - Non-pressure chronic ulcer of other part of right foot limited to breakdown of skin (7) Infected decubitus ulcer Status: Acute Current Visit: Yes Code(s): L89.90 - Pressure ulcer of unspecified site, unspecified stage; L08.9 - Local infection of the skin and subcutaneous tissue, unspecified Type of Wound Date of Service: 09/19/17 Chief Complaint: R foot DFU History of Wound: 57 year old woman with r DFU heel willy 1. Hx of many feet ulcers that heal well Progress of Wound: today the first metatarsal ulcer of the left foot DFU is sllightly smaller . Still has alot of callus around the edge that is debrided weekly with sharps. 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 She has refused anything like a special shoe or cast or anything because of her balance and money. She still refuses to stop smoking. Patient other ulcer on her right heel has slightly increased in size are about the same and appears infected we will reculture today. Patient was approved for epi fix and we split epi fix between the toe and the heel today #1 applied. Again a lot of callus that had to be debrided around the ulcer which made it a little bit bigger. Patient was also encouraged to eat Dannon yogurt. We cultured today the right heel. Patient has an appointment with [facility] September 23 for new shoes offload that right foot and left foot. - Physical Exam Vital Signs Temp Pulse Resp BP 97 F L 68 18 126/64 H 09/19/17 09:23 09/19/17 09:23 09/19/17 09:23 09/19/17 09:23 General: Oriented x3, Cooperative, Well developed HEENT: Atraumatic, PERRLA Oral: Moist Mucosa Neck: Supple, No JVD Lungs: Clear to auscultation, Normal air movement Cardiovascular: Regular rate, Regular Rhythm Abdomen: Bowel Sounds Present, Soft, Non Tender, No Hepato-splenomegaly Extremities: No clubbing, No edema Skin: Ulcer/ Wound - Left foot first metatarsal head right heel ulcer Wound Measurements and Assessment WC - Nurse 1 - General Ulcer Measurement Start: 08/29/17 08:36 Freq: Status: Active Protocol: Activity Type Activity Date Activity User E-Sign Co-Sign Detail Recorded Client Recorded Date Recorded By Document 09/19/17 09:23 [id number] 09/19/17 09:27 DL 09/19/17 09:23 Wound Center Nurse 1 [Ulcer Assessment] #5 LEFT PLANTAR GREAT TOE (Base) -Current Size (cm) - Length 0.8 -Current Size (cm) - Width 0.7 -Current Size (cm) - Depth 0.2 -Total Square Cm 0.56 -Photo Taken No -Exudate Amt Small (1-33%) -Exudate Type Serosanguineous -Wound Margin Thickened -Granulation Amt Large (67-100%) -Granulation Quality Lorton -Necrosis Amt Small (1-33%) -Necrotic Tissue Type Adherent Slough -Structure Exposed N/A -Texture (Loly-wound Skin Appearance) Callus -Moisture (Loly-wound Skin Appearance Maceration ) -Color (Loly-wound Skin Appearance) No Abnormality -Temperature (Loly-wound Skin No Abnormality Appearance) (Pt Warm) -Ulcer Cleansing Wound Cleanser -Foul Odor after Cleansing No -Anesthetic Used 4% Lidocaine Solution #3 RIGHT HEEL -Current Size (cm) - Length 1.2 -Current Size (cm) - Width 1.4 -Current Size (cm) - Depth 0.5 -Total Square Cm 1.68 -Photo Taken No -Undermining/Tunneling Starts (O' 10 clock) -Undermining/Tunneling Ends (O'clock) 3 -Maximum Distance (cm) 0.2 -Exudate Amt Medium (34-66%) -Exudate Type Serosanguineous -Wound Margin Thickened -Granulation Amt Medium (34-66%) -Granulation Quality Pale Lorton -Necrosis Amt Medium (34-66%) -Necrotic Tissue Type Adherent Slough -Structure Exposed N/A -Texture (Loly-wound Skin Appearance) Callus -Moisture (Loly-wound Skin Appearance Maceration ) -Color (Loly-wound Skin Appearance) No Abnormality -Temperature (Loly-wound Skin No Abnormality Appearance) (Pt Warm) -Tenderness on Palpation (Loly-wound No Skin Appearance) -Ulcer Cleansing Wound Cleanser -Foul Odor after Cleansing No -Anesthetic Used 4% Lidocaine Solution [Edema Assessment] -Right Calf (cm) 36 -Right Ankle (cm) 22.2 -Left Calf (cm) 37 -Left Ankle (cm) 21.8 WC - Nurse 2 - General Ulcer CM Notes Start: 08/29/17 08:36 Freq: Status: Active Protocol: Activity Type Activity Date Activity User E-Sign Co-Sign Detail Recorded Client Recorded Date Recorded By Document 09/19/17 10:49 [id number] 09/19/17 11:08 09/19/17 10:49 Wound Center Nurse 2 [Procedure/Treatment] #5 LEFT PLANTAR GREAT TOE (Base) -Time 10:49 -Correct Patient Yes -Correct Side, Site, Position Yes -Correct Procedure Yes -Procedure Performed Yes -Type of Procedure Debridement -Clinical Debridement Subcutaneous -Post Debridement Size (cm) - Length 1.5 -Post Debridement Size (cm) - Width 1.4 -Post Debridement Size (cm) - Depth 0.2 -Total Square Cm 2.10 -Wound/Ulcer Outcome Not Healed -Ulcer Cleansing Rinsed/ Irrigated with Saline -Foul Odor after Cleansing No -Bioengineered Tissue Yes -Type of bioengineered Tissue EPIFIX -Expiration Date 05/29/22 -Product Lot Number [id number] -Percent Used 50 -Topical Lidocaine (%) 4 -Bleeding Controlled with NA -Other HYDROGEL -Treatment Response Procedure Tolerated Well #3 RIGHT HEEL -Time 10:55 -Correct Patient Yes -Correct Side, Site, Position Yes -Correct Procedure Yes -Procedure Performed Yes -Type of Procedure Debridement -Clinical Debridement Subcutaneous -Post Debridement Size (cm) - Length 1.7 -Post Debridement Size (cm) - Width 1.7 -Post Debridement Size (cm) - Depth 0.3 -Total Square Cm 2.89 -Wound/Ulcer Outcome Not Healed -Ulcer Cleansing Rinsed/ Irrigated with Saline -Foul Odor after Cleansing No -Bioengineered Tissue Yes -Type of bioengineered Tissue EPIFIX -Expiration Date 05/29/22 -Product Lot Number [id number] -Percent Used 50 -Topical Lidocaine (%) 4 -Bleeding Controlled with NA -Other HYDROGEL -Treatment Response Procedure Tolerated Well [See Physician Procedure note for Specifics] Pain Scale: 0-10 Numeric [Pain] -Is Patient Pain Free? Yes Musculoskeletal: No Tenderness to Palpation of Joints or Extremities Lymphatic: No Cervical, Supraclavicular, or Inguinal Adenopathy Neurological: Cranial nerves II-XII grossly intact, Neuro grossly intact Psych/Mental Status: Normal Affect, Appropriate Debridement Note Post-Debridement Measurements/Treatment WC - Nurse 2 - General Ulcer CM Notes Start: 08/29/17 08:36 Freq: Status: Active Protocol: Activity Type Activity Date Activity User E-Sign Co-Sign Detail Recorded Client Recorded Date Recorded By Document 08/29/17 09:07 [id number] 08/29/17 09:16 Document 09/12/17 09:13 DV [id number] 09/12/17 09:18 DV Document 09/19/17 10:49 [id number] 09/19/17 11:08 08/29/17 09/12/17 09/19/17 09:07 09:13 10:49 Wound Center Nurse 2 #5 LEFT PLANTAR GREAT TOE (Base) -Time 09:08 09:14 10:49 -Correct Patient Yes Yes Yes -Correct Side, Site, Position Yes Yes Yes -Correct Procedure Yes Yes Yes -Procedure Performed Yes Yes Yes -Type of Procedure Debridement Debridement Debridement -Clinical Debridement Subcutaneous Subcutaneous Subcutaneous -Post Debridement Size (cm) - Length 1.2 1.2 1.5 -Post Debridement Size (cm) - Width 1.6 1.5 1.4 -Post Debridement Size (cm) - Depth 0.2 0.2 0.2 -Total Square Cm 1.92 1.80 2.10 -Wound/Ulcer Outcome Not Healed Not Healed Not Healed -Ulcer Cleansing Rinsed/ Rinsed/ Rinsed/ Irrigated with Irrigated with Irrigated with Saline Saline Saline -Foul Odor after Cleansing No No No -Bioengineered Tissue No No Yes -Type of bioengineered Tissue EPIFIX -Expiration Date 05/29/22 -Product Lot Number [id number] -Percent Used 50 -Topical Lidocaine (%) 4 -Bleeding Controlled with Pressure Pressure NA -Other HYDROGEL -Treatment Response Procedure Procedure Procedure Tolerated Well Tolerated Well Tolerated Well #3 RIGHT HEEL -Time 09:08 09:15 10:55 -Correct Patient Yes Yes Yes -Correct Side, Site, Position Yes Yes Yes -Correct Procedure Yes Yes Yes -Procedure Performed Yes Yes Yes -Type of Procedure Debridement Debridement Debridement -Clinical Debridement Subcutaneous Subcutaneous Subcutaneous -Post Debridement Size (cm) - Length 1.9 1.8 1.7 -Post Debridement Size (cm) - Width 1.9 2.0 1.7 -Post Debridement Size (cm) - Depth 0.2 0.3 0.3 -Total Square Cm 3.61 3.60 2.89 -Wound/Ulcer Outcome Not Healed Not Healed Not Healed -Ulcer Cleansing Rinsed/ Rinsed/ Rinsed/ Irrigated with Irrigated with Irrigated with Saline Saline Saline -Foul Odor after Cleansing No No No -Bioengineered Tissue No No Yes -Type of bioengineered Tissue EPIFIX -Expiration Date 05/29/22 -Product Lot Number [id number] -Percent Used 50 -Topical Lidocaine (%) 4 -Bleeding Controlled with Pressure Pressure NA -Other HYDROGEL -Treatment Response Procedure Procedure Procedure Tolerated Well Tolerated Well Tolerated Well Pain Scale: 0-10 Numeric Is Patient Pain Free? Yes Yes Yes Wound debrided: First metatarsal head left foot Type of Debridement: Excisional debridement Anesthesia Used: 5% Lidocaine Gel Depth: Down to and including healthy tissue, in the subcutaneous layer Percentage of wound debrided: 100 Instrument Used: 5mm curette, #15 blade Tissue Removed: Fibrin callus Severity: Limited To Skin Breakdown Amount of bleeding with debridement: Moderate Bleeding Controlled with: Compression and gauze Patient tolerated procedure well - Additional Wound Wound debrided: Right heel Type of Debridement: Excisional debridement Anesthesia Used: 5% Lidocaine Gel Depth: Down to and including healthy tissue, in the subcutaneous layer Percentage of wound debrided: 100 Instrument Used: 5mm curette Tissue Removed: Callus fibrin slough Severity: Limited To Skin Breakdown Amount of bleeding with debridement: Moderate Bleeding Controlled with: Compression and gauze Patient tolerated procedure: Patient tolerated procedure well Assessment/Plan Active Problems (Last Updated 08/19/17 @ 09:45 by Patricia Hanks) Decubitus ulcer of right heel, stage 3 (Acute) Infected decubitus ulcer (Acute) Arthritis (Chronic) Hypertension (Chronic) Diabetic foot ulcer associated with type 2 diabetes mellitus (Acute) Non-pressure chronic ulcer of other part of right foot limited to breakdown of skin (Chronic) Tobacco abuse counseling (Acute) Assessment: Type II diabetic. Tobacco abuser. DFU Scott 2 to right foot heel. First metatarsal head ulcer left foot Plan: Applied #1 epi fix between the 2 ulcers covered with hydrogel veil Steri- Strips and protective padded gauze dressings. Offload as much as possible follow-up with you and keep [employer] for new shoe. All with culture results. Follow up in 1 week
[2017-09-26 09:34] VITALS: BP 101/49; PULSE 75; RESP 18; TEMP 36.5
--- NOTE | 2017-09-26 11:46 | PCM.WC.PN ---
(1) Decubitus ulcer of right heel, stage 3 Status: Acute Current Visit: Yes Code(s): L89.613 - Pressure ulcer of right heel, stage 3 (2) Diabetic foot ulcer associated with type 2 diabetes mellitus Status: Acute Current Visit: Yes Qualifiers: Diabetic foot ulcer location: midfoot Non-pressure ulcer stage: limited to breakdown of skin Code(s): E11.621 - Type 2 diabetes mellitus with foot ulcer; L97.509 - Non-pressure chronic ulcer of other part of unspecified foot with unspecified severity (3) Tobacco abuse counseling Status: Acute Current Visit: Yes Code(s): Z71.6 - Tobacco abuse counseling (4) Arthritis Status: Chronic Current Visit: Yes Code(s): M19.90 - Unspecified osteoarthritis, unspecified site (5) Hypertension Status: Chronic Current Visit: Yes Code(s): I10 - Essential (primary) hypertension (6) Non-pressure chronic ulcer of other part of right foot limited to breakdown of skin Status: Chronic Current Visit: Yes Code(s): L97.511 - Non-pressure chronic ulcer of other part of right foot limited to breakdown of skin (7) Infected decubitus ulcer Status: Acute Current Visit: Yes Code(s): L89.90 - Pressure ulcer of unspecified site, unspecified stage; L08.9 - Local infection of the skin and subcutaneous tissue, unspecified Type of Wound Date of Service: 09/26/17 Chief Complaint: R foot DFU History of Wound: 57 year old woman with r DFU heel willy 1. Hx of many feet ulcers that heal well Progress of Wound: today the first metatarsal ulcer of the left foot DFU is sllightly smaller . Still has alot of maceration around the edge that is debrided weekly with sharps. 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 Patient states cannot afford the antibiotics. She has refused anything like a special shoe or cast or anything because of her balance and money. She still refuses to stop smoking. Patient other ulcer on her right heel has slightly increased in size culture came back positive and patient will be started on ciprofloxacin today 500 mg twice a day. Patient was approved for epi fix and we split epi fix between the toe and the heel today #2 applied. The epi fix is medically necessary because of poor noncompliance with usual treatment patterns has really increase the ability to heal this ulcer on her metatarsal head and her heel .Patient is falling more and more because she states she has low blood pressure and cannot get in to see her regular doctor. Again a lot of callus that had to be debrided around the ulcer which made it a little bit bigger. Patient was also encouraged to eat Dannon yogurt. We cultured today the right heel. Patient has an appointment with [facility] September 23 for new shoes offload that right foot and left foot. - Physical Exam Vital Signs Temp Pulse Resp BP 97.7 F L 75 18 101/49 L 09/26/17 09:34 09/26/17 09:34 09/26/17 09:34 09/26/17 09:34 General: Oriented x3, Cooperative, Well developed HEENT: Atraumatic, PERRLA Oral: Moist Mucosa Neck: Supple, No JVD Lungs: Clear to auscultation, Normal air movement Cardiovascular: Regular rate, Regular Rhythm Abdomen: Bowel Sounds Present, Soft, Non Tender, No Hepato-splenomegaly Extremities: No clubbing, No edema Skin: Ulcer/ Wound - Left metatarsal head right heel Wound Measurements and Assessment WC - Nurse 1 - General Ulcer Measurement Start: 08/29/17 08:36 Freq: Status: Active Protocol: Activity Type Activity Date Activity User E-Sign Co-Sign Detail Recorded Client Recorded Date Recorded By Document 09/26/17 09:34 [id number] 09/26/17 09:44 09/26/17 09:34 Wound Center Nurse 1 [Ulcer Assessment] #5 LEFT PLANTAR GREAT TOE (Base) -Combined with other wound No -Current Size (cm) - Length 0.5 -Current Size (cm) - Width 0.8 -Current Size (cm) - Depth 0.2 -Total Square Cm 0.40 -Photo Taken No -Exudate Amt Small (1-33%) -Exudate Type Serous -Wound Margin Distinct, Outline Attached -Granulation Amt Small (1-33%) -Granulation Quality N/A [place] -Slough/Fibrin No -Texture (Loly-wound Skin Appearance) Callus -Moisture (Loly-wound Skin Appearance Maceration ) Dry/Scaly -Color (Loly-wound Skin Appearance) No Abnormality Assessed -Temperature (Loly-wound Skin No Abnormality Appearance) (Pt Warm) -Tenderness on Palpation (Loly-wound No Skin Appearance) -Ulcer Cleansing soap/water -Foul Odor after Cleansing No -Anesthetic Used 4% Lidocaine Solution #3 RIGHT HEEL -Combined with other wound No -Current Size (cm) - Length 1.3 -Current Size (cm) - Width 1.4 -Current Size (cm) - Depth 0.2 -Total Square Cm 1.82 -Photo Taken No -Epithelialization None Present -Exudate Amt Small (1-33%) -Exudate Type Serous -Wound Margin Distinct, Outline Attached -Granulation Amt Small (1-33%) -Granulation Quality [place] -Slough/Fibrin No -Necrosis Amt None Present (0 %) -Necrotic Tissue Type Adherent Slough -Structure Exposed None/Limited to Skin Breakdown -Texture (Loly-wound Skin Appearance) Callus -Moisture (Loly-wound Skin Appearance Maceration ) Dry/Scaly -Color (Loly-wound Skin Appearance) No Abnormality Assessed -Temperature (Loly-wound Skin No Abnormality Appearance) (Pt Warm) -Tenderness on Palpation (Loly-wound No Skin Appearance) -Ulcer Cleansing soap/water -Foul Odor after Cleansing Yes, Due to Product Use -Anesthetic Used 4% Lidocaine Solution [Edema Assessment] -Lower Limb Edema Present Yes -Right Calf (cm) 37.2 -Right Ankle (cm) 23.1 -Left Calf (cm) 37.4 -Left Ankle (cm) 23.3 WC - Nurse 2 - General Ulcer CM Notes Start: 08/29/17 08:36 Freq: Status: Active Protocol: Activity Type Activity Date Activity User E-Sign Co-Sign Detail Recorded Client Recorded Date Recorded By Document 09/26/17 10:03 DESTINEY [id number] 09/26/17 10:26 DESTINEY 09/26/17 10:03 Wound Center Nurse 2 [Procedure/Treatment] #5 LEFT PLANTAR GREAT TOE (Base) -Time 10:04 -Correct Patient Yes -Correct Side, Site, Position Yes -Correct Procedure Yes -Procedure Performed Yes -Type of Procedure Debridement -Clinical Debridement Subcutaneous -Post Debridement Size (cm) - Length 0.7 -Post Debridement Size (cm) - Width 0.8 -Post Debridement Size (cm) - Depth 0.2 -Total Square Cm 0.56 -Wound/Ulcer Outcome Not Healed -Ulcer Cleansing Rinsed/ Irrigated with Saline -Foul Odor after Cleansing No -Bioengineered Tissue Yes -Type of bioengineered Tissue EPIFIX -Expiration Date 06/29/22 -Product Lot Number [id number] -Percent Used 100 -Saline Lot Number HYDROG -Topical Lidocaine (%) 4 -Lidocaine (ml) 10 -Bleeding Controlled with NA -Treatment Response Procedure Tolerated Well #3 RIGHT HEEL -Time 10:04 -Correct Patient Yes -Correct Side, Site, Position Yes -Correct Procedure Yes -Procedure Performed Yes -Type of Procedure Debridement -Clinical Debridement Subcutaneous -Post Debridement Size (cm) - Length 1.5 -Post Debridement Size (cm) - Width 1.4 -Post Debridement Size (cm) - Depth 0.3 -Total Square Cm 2.10 -Wound/Ulcer Outcome Not Healed -Ulcer Cleansing Rinsed/ Irrigated with Saline -Foul Odor after Cleansing No -Expiration Date 06/29/22 -Product Lot Number [id number] -Percent Used 100 -Saline Lot Number HYDROG -Topical Lidocaine (%) 4 -Lidocaine (ml) 10 -Bleeding Controlled with NA -Treatment Response Procedure Tolerated Well [See Physician Procedure note for Specifics] Pain Scale: 0-10 Numeric [Pain] -Is Patient Pain Free? Yes Musculoskeletal: No Tenderness to Palpation of Joints or Extremities Lymphatic: No Cervical, Supraclavicular, or Inguinal Adenopathy Neurological: Cranial nerves II-XII grossly intact, Neuro grossly intact Psych/Mental Status: Normal Affect, Appropriate, Alert and oriented to time, place, person, mood and affect Debridement Note Post-Debridement Measurements/Treatment WC - Nurse 2 - General Ulcer CM Notes Start: 08/29/17 08:36 Freq: Status: Active Protocol: Activity Type Activity Date Activity User E-Sign Co-Sign Detail Recorded Client Recorded Date Recorded By Document 08/29/17 09:07 JF [id number] 08/29/17 09:16 JF Document 09/12/17 09:13 DV [id number] 09/12/17 09:18 DV Document 09/19/17 10:49 CS [id number] 09/19/17 11:08 CS Document 09/26/17 10:03 JS [id number] 09/26/17 10:26 JS 08/29/17 09/12/17 09/19/17 09:07 09:13 10:49 Wound Center Nurse 2 #5 LEFT PLANTAR GREAT TOE (Base) -Time 09:08 09:14 10:49 -Correct Patient Yes Yes Yes -Correct Side, Site, Position Yes Yes Yes -Correct Procedure Yes Yes Yes -Procedure Performed Yes Yes Yes -Type of Procedure Debridement Debridement Debridement -Clinical Debridement Subcutaneous Subcutaneous Subcutaneous -Post Debridement Size (cm) - Length 1.2 1.2 1.5 -Post Debridement Size (cm) - Width 1.6 1.5 1.4 -Post Debridement Size (cm) - Depth 0.2 0.2 0.2 -Total Square Cm 1.92 1.80 2.10 -Wound/Ulcer Outcome Not Healed Not Healed Not Healed -Ulcer Cleansing Rinsed/ Rinsed/ Rinsed/ Irrigated with Irrigated with Irrigated with Saline Saline Saline -Foul Odor after Cleansing No No No -Bioengineered Tissue No No Yes -Type of bioengineered Tissue EPIFIX -Expiration Date 05/29/22 -Product Lot Number [id number] -Percent Used 50 -Saline Lot Number -Topical Lidocaine (%) 4 -Lidocaine (ml) -Bleeding Controlled with Pressure Pressure NA -Other HYDROGEL -Treatment Response Procedure Procedure Procedure Tolerated Well Tolerated Well Tolerated Well #3 RIGHT HEEL -Time 09:08 09:15 10:55 -Correct Patient Yes Yes Yes -Correct Side, Site, Position Yes Yes Yes -Correct Procedure Yes Yes Yes -Procedure Performed Yes Yes Yes -Type of Procedure Debridement Debridement Debridement -Clinical Debridement Subcutaneous Subcutaneous Subcutaneous -Post Debridement Size (cm) - Length 1.9 1.8 1.7 -Post Debridement Size (cm) - Width 1.9 2.0 1.7 -Post Debridement Size (cm) - Depth 0.2 0.3 0.3 -Total Square Cm 3.61 3.60 2.89 -Wound/Ulcer Outcome Not Healed Not Healed Not Healed -Ulcer Cleansing Rinsed/ Rinsed/ Rinsed/ Irrigated with Irrigated with Irrigated with Saline Saline Saline -Foul Odor after Cleansing No No No -Bioengineered Tissue No No Yes -Type of bioengineered Tissue EPIFIX -Expiration Date 05/29/22 -Product Lot Number [id number] -Percent Used 50 -Saline Lot Number -Topical Lidocaine (%) 4 -Lidocaine (ml) -Bleeding Controlled with Pressure Pressure NA -Other HYDROGEL -Treatment Response Procedure Procedure Procedure Tolerated Well Tolerated Well Tolerated Well Pain Scale: 0-10 Numeric Is Patient Pain Free? Yes Yes Yes 09/26/17 10:03 Wound Center Nurse 2 #5 LEFT PLANTAR GREAT TOE (Base) -Time 10:04 -Correct Patient Yes -Correct Side, Site, Position Yes -Correct Procedure Yes -Procedure Performed Yes -Type of Procedure Debridement -Clinical Debridement Subcutaneous -Post Debridement Size (cm) - Length 0.7 -Post Debridement Size (cm) - Width 0.8 -Post Debridement Size (cm) - Depth 0.2 -Total Square Cm 0.56 -Wound/Ulcer Outcome Not Healed -Ulcer Cleansing Rinsed/ Irrigated with Saline -Foul Odor after Cleansing No -Bioengineered Tissue Yes -Type of bioengineered Tissue EPIFIX -Expiration Date 06/29/22 -Product Lot Number [id number] -Percent Used 100 -Saline Lot Number HYDROG -Topical Lidocaine (%) 4 -Lidocaine (ml) 10 -Bleeding Controlled with NA -Other -Treatment Response Procedure Tolerated Well #3 RIGHT HEEL -Time 10:04 -Correct Patient Yes -Correct Side, Site, Position Yes -Correct Procedure Yes -Procedure Performed Yes -Type of Procedure Debridement -Clinical Debridement Subcutaneous -Post Debridement Size (cm) - Length 1.5 -Post Debridement Size (cm) - Width 1.4 -Post Debridement Size (cm) - Depth 0.3 -Total Square Cm 2.10 -Wound/Ulcer Outcome Not Healed -Ulcer Cleansing Rinsed/ Irrigated with Saline -Foul Odor after Cleansing No -Bioengineered Tissue -Type of bioengineered Tissue -Expiration Date 06/29/22 -Product Lot Number [id number] -Percent Used 100 -Saline Lot Number HYDROG -Topical Lidocaine (%) 4 -Lidocaine (ml) 10 -Bleeding Controlled with NA -Other -Treatment Response Procedure Tolerated Well Pain Scale: 0-10 Numeric Is Patient Pain Free? Yes Wound debrided: First metatarsal head left foot Type of Debridement: Excisional debridement Anesthesia Used: 5% Lidocaine Gel Depth: Down to and including healthy tissue, in the subcutaneous layer, to muscle Instrument Used: 5mm curette Tissue Removed: Fibrin and some devitalized tissue Severity: Limited To Skin Breakdown Amount of bleeding with debridement: None Bleeding Controlled with: Pressure Patient tolerated procedure well - Additional Wound Wound debrided: Right heel ulcer Type of Debridement: Excisional debridement Anesthesia Used: 5% Lidocaine Gel Depth: Down to and including healthy tissue, in the subcutaneous layer Percentage of wound debrided: 100 Instrument Used: 7mm curette, #15 blade Tissue Removed: Callus and fibrin Amount of bleeding with debridement: Mild Bleeding Controlled with: Pressure Patient tolerated procedure: Patient tolerated procedure well Assessment/Plan Active Problems (Last Updated 08/19/17 @ 09:45 by Patricia Hanks) Decubitus ulcer of right heel, stage 3 (Acute) Infected decubitus ulcer (Acute) Arthritis (Chronic) Hypertension (Chronic) Diabetic foot ulcer associated with type 2 diabetes mellitus (Acute) Non-pressure chronic ulcer of other part of right foot limited to breakdown of skin (Chronic) Tobacco abuse counseling (Acute) Assessment: Type II diabetic. Tobacco abuser. DFU Scott 2 to right foot heel. First metatarsal head ulcer left foot Plan: Applied #2 epi fix between the 2 ulcers covered with hydrogel veil Steri-Strips and protective padded gauze dressings. Offload as much as possible follow-up with you and keep bionics for new shoe. Start ciprofloxacin 500 mg 1 p.o. twice daily for 14 days #28. Also start Diflucan 100 mg 1 p.o. daily for 30 days. Follow up in 1 week
--- NOTE | 2017-09-26 11:52 | PN.PCM_ITS ---
(1) Decubitus ulcer of right heel, stage 3 Status: Acute Current Visit: Yes Code(s): L89.613 - Pressure ulcer of right heel, stage 3 (2) Diabetic foot ulcer associated with type 2 diabetes mellitus Status: Acute Current Visit: Yes Qualifiers: Diabetic foot ulcer location: midfoot Non-pressure ulcer stage: limited to breakdown of skin Code(s): E11.621 - Type 2 diabetes mellitus with foot ulcer; L97.509 - Non- pressure chronic ulcer of other part of unspecified foot with unspecified severity (3) Tobacco abuse counseling Status: Acute Current Visit: Yes Code(s): Z71.6 - Tobacco abuse counseling (4) Arthritis Status: Chronic Current Visit: Yes Code(s): M19.90 - Unspecified osteoarthritis, unspecified site (5) Hypertension Status: Chronic Current Visit: Yes Code(s): I10 - Essential (primary) hypertension (6) Non-pressure chronic ulcer of other part of right foot limited to breakdown of skin Status: Chronic Current Visit: Yes Code(s): L97.511 - Non-pressure chronic ulcer of other part of right foot limited to breakdown of skin (7) Infected decubitus ulcer Status: Acute Current Visit: Yes Code(s): L89.90 - Pressure ulcer of unspecified site, unspecified stage; L08.9 - Local infection of the skin and subcutaneous tissue, unspecified Type of Wound Date of Service: 09/26/17 Chief Complaint: R foot DFU History of Wound: 57 year old woman with r DFU heel willy 1. Hx of many feet ulcers that heal well Progress of Wound: today the first metatarsal ulcer of the left foot DFU is sllightly smaller . Still has alot of maceration around the edge that is debrided weekly with sharps. 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 Patient states cannot afford the antibiotics. She has refused anything like a special shoe or cast or anything because of her balance and money. She still refuses to stop smoking. Patient other ulcer on her right heel has slightly increased in size culture came back positive and patient will be started on ciprofloxacin today 500 mg twice a day. Patient was approved for epi fix and we split epi fix between the toe and the heel today #2 applied. The epi fix is medically necessary because of poor noncompliance with usual treatment patterns has really increase the ability to heal this ulcer on her metatarsal head and her heel .Patient is falling more and more because she states she has low blood pressure and cannot get in to see her regular doctor. Again a lot of callus that had to be debrided around the ulcer which made it a little bit bigger. Patient was also encouraged to eat Dannon yogurt. We cultured today the right heel. Patient has an appointment with [employer] September 23 for new shoes offload that right foot and left foot. - Physical Exam Vital Signs Temp Pulse Resp BP 97.7 F L 75 18 101/49 L 09/26/17 09:34 09/26/17 09:34 09/26/17 09:34 09/26/17 09:34 General: Oriented x3, Cooperative, Well developed HEENT: Atraumatic, PERRLA Oral: Moist Mucosa Neck: Supple, No JVD Lungs: Clear to auscultation, Normal air movement Cardiovascular: Regular rate, Regular Rhythm Abdomen: Bowel Sounds Present, Soft, Non Tender, No Hepato-splenomegaly Extremities: No clubbing, No edema Skin: Ulcer/ Wound - Left metatarsal head right heel Wound Measurements and Assessment WC - Nurse 1 - General Ulcer Measurement Start: 08/29/17 08:36 Freq: Status: Active Protocol: Activity Type Activity Date Activity User E-Sign Co-Sign Detail Recorded Client Recorded Date Recorded By Document 09/26/17 09:34 [id number] 09/26/17 09:44 09/26/17 09:34 Wound Center Nurse 1 [Ulcer Assessment] #5 LEFT PLANTAR GREAT TOE (Base) -Combined with other wound No -Current Size (cm) - Length 0.5 -Current Size (cm) - Width 0.8 -Current Size (cm) - Depth 0.2 -Total Square Cm 0.40 -Photo Taken No -Exudate Amt Small (1-33%) -Exudate Type Serous -Wound Margin Distinct, Outline Attached -Granulation Amt Small (1-33%) -Granulation Quality N/A Pale [place] -Slough/Fibrin No -Texture (Loly-wound Skin Appearance) Callus -Moisture (Loly-wound Skin Appearance Maceration ) Dry/Scaly -Color (Loly-wound Skin Appearance) No Abnormality Assessed -Temperature (Loly-wound Skin No Abnormality Appearance) (Pt Warm) -Tenderness on Palpation (Loly-wound No Skin Appearance) -Ulcer Cleansing soap/water -Foul Odor after Cleansing No -Anesthetic Used 4% Lidocaine Solution #3 RIGHT HEEL -Combined with other wound No -Current Size (cm) - Length 1.3 -Current Size (cm) - Width 1.4 -Current Size (cm) - Depth 0.2 -Total Square Cm 1.82 -Photo Taken No -Epithelialization None Present -Exudate Amt Small (1-33%) -Exudate Type Serous -Wound Margin Distinct, Outline Attached -Granulation Amt Small (1-33%) -Granulation Quality Pale [place] -Slough/Fibrin No -Necrosis Amt None Present (0 %) -Necrotic Tissue Type Adherent Slough -Structure Exposed None/Limited to Skin Breakdown -Texture (Loly-wound Skin Appearance) Callus -Moisture (Loly-wound Skin Appearance Maceration ) Dry/Scaly -Color (Loly-wound Skin Appearance) No Abnormality Assessed -Temperature (Loly-wound Skin No Abnormality Appearance) (Pt Warm) -Tenderness on Palpation (Loly-wound No Skin Appearance) -Ulcer Cleansing soap/water -Foul Odor after Cleansing Yes, Due to Product Use -Anesthetic Used 4% Lidocaine Solution [Edema Assessment] -Lower Limb Edema Present Yes -Right Calf (cm) 37.2 -Right Ankle (cm) 23.1 -Left Calf (cm) 37.4 -Left Ankle (cm) 23.3 WC - Nurse 2 - General Ulcer CM Notes Start: 08/29/17 08:36 Freq: Status: Active Protocol: Activity Type Activity Date Activity User E-Sign Co-Sign Detail Recorded Client Recorded Date Recorded By Document 09/26/17 10:03 DESTINEY [id number] 09/26/17 10:26 DESTINEY 09/26/17 10:03 Wound Center Nurse 2 [Procedure/Treatment] #5 LEFT PLANTAR GREAT TOE (Base) -Time 10:04 -Correct Patient Yes -Correct Side, Site, Position Yes -Correct Procedure Yes -Procedure Performed Yes -Type of Procedure Debridement -Clinical Debridement Subcutaneous -Post Debridement Size (cm) - Length 0.7 -Post Debridement Size (cm) - Width 0.8 -Post Debridement Size (cm) - Depth 0.2 -Total Square Cm 0.56 -Wound/Ulcer Outcome Not Healed -Ulcer Cleansing Rinsed/ Irrigated with Saline -Foul Odor after Cleansing No -Bioengineered Tissue Yes -Type of bioengineered Tissue EPIFIX -Expiration Date 06/29/22 -Product Lot Number [id number] -Percent Used 100 -Saline Lot Number HYDROG -Topical Lidocaine (%) 4 -Lidocaine (ml) 10 -Bleeding Controlled with NA -Treatment Response Procedure Tolerated Well #3 RIGHT HEEL -Time 10:04 -Correct Patient Yes -Correct Side, Site, Position Yes -Correct Procedure Yes -Procedure Performed Yes -Type of Procedure Debridement -Clinical Debridement Subcutaneous -Post Debridement Size (cm) - Length 1.5 -Post Debridement Size (cm) - Width 1.4 -Post Debridement Size (cm) - Depth 0.3 -Total Square Cm 2.10 -Wound/Ulcer Outcome Not Healed -Ulcer Cleansing Rinsed/ Irrigated with Saline -Foul Odor after Cleansing No -Expiration Date 06/29/22 -Product Lot Number [id number] -Percent Used 100 -Saline Lot Number HYDROG -Topical Lidocaine (%) 4 -Lidocaine (ml) 10 -Bleeding Controlled with NA -Treatment Response Procedure Tolerated Well [See Physician Procedure note for Specifics] Pain Scale: 0-10 Numeric [Pain] -Is Patient Pain Free? Yes Musculoskeletal: No Tenderness to Palpation of Joints or Extremities Lymphatic: No Cervical, Supraclavicular, or Inguinal Adenopathy Neurological: Cranial nerves II-XII grossly intact, Neuro grossly intact Psych/Mental Status: Normal Affect, Appropriate, Alert and oriented to time, place, person, mood and affect Debridement Note Post-Debridement Measurements/Treatment WC - Nurse 2 - General Ulcer CM Notes Start: 08/29/17 08:36 Freq: Status: Active Protocol: Activity Type Activity Date Activity User E-Sign Co-Sign Detail Recorded Client Recorded Date Recorded By Document 08/29/17 09:07 JF [id number] 08/29/17 09:16 JF Document 09/12/17 09:13 DV [id number] 09/12/17 09:18 DV Document 09/19/17 10:49 CS [id number] 09/19/17 11:08 CS Document 09/26/17 10:03 JS [id number] 09/26/17 10:26 JS 08/29/17 09/12/17 09/19/17 09:07 09:13 10:49 Wound Center Nurse 2 #5 LEFT PLANTAR GREAT TOE (Base) -Time 09:08 09:14 10:49 -Correct Patient Yes Yes Yes -Correct Side, Site, Position Yes Yes Yes -Correct Procedure Yes Yes Yes -Procedure Performed Yes Yes Yes -Type of Procedure Debridement Debridement Debridement -Clinical Debridement Subcutaneous Subcutaneous Subcutaneous -Post Debridement Size (cm) - Length 1.2 1.2 1.5 -Post Debridement Size (cm) - Width 1.6 1.5 1.4 -Post Debridement Size (cm) - Depth 0.2 0.2 0.2 -Total Square Cm 1.92 1.80 2.10 -Wound/Ulcer Outcome Not Healed Not Healed Not Healed -Ulcer Cleansing Rinsed/ Rinsed/ Rinsed/ Irrigated with Irrigated with Irrigated with Saline Saline Saline -Foul Odor after Cleansing No No No -Bioengineered Tissue No No Yes -Type of bioengineered Tissue EPIFIX -Expiration Date 05/29/22 -Product Lot Number [id number] -Percent Used 50 -Saline Lot Number -Topical Lidocaine (%) 4 -Lidocaine (ml) -Bleeding Controlled with Pressure Pressure NA -Other HYDROGEL -Treatment Response Procedure Procedure Procedure Tolerated Well Tolerated Well Tolerated Well #3 RIGHT HEEL -Time 09:08 09:15 10:55 -Correct Patient Yes Yes Yes -Correct Side, Site, Position Yes Yes Yes -Correct Procedure Yes Yes Yes -Procedure Performed Yes Yes Yes -Type of Procedure Debridement Debridement Debridement -Clinical Debridement Subcutaneous Subcutaneous Subcutaneous -Post Debridement Size (cm) - Length 1.9 1.8 1.7 -Post Debridement Size (cm) - Width 1.9 2.0 1.7 -Post Debridement Size (cm) - Depth 0.2 0.3 0.3 -Total Square Cm 3.61 3.60 2.89 -Wound/Ulcer Outcome Not Healed Not Healed Not Healed -Ulcer Cleansing Rinsed/ Rinsed/ Rinsed/ Irrigated with Irrigated with Irrigated with Saline Saline Saline -Foul Odor after Cleansing No No No -Bioengineered Tissue No No Yes -Type of bioengineered Tissue EPIFIX -Expiration Date 05/29/22 -Product Lot Number [id number] -Percent Used 50 -Saline Lot Number -Topical Lidocaine (%) 4 -Lidocaine (ml) -Bleeding Controlled with Pressure Pressure NA -Other HYDROGEL -Treatment Response Procedure Procedure Procedure Tolerated Well Tolerated Well Tolerated Well Pain Scale: 0-10 Numeric Is Patient Pain Free? Yes Yes Yes 09/26/17 10:03 Wound Center Nurse 2 #5 LEFT PLANTAR GREAT TOE (Base) -Time 10:04 -Correct Patient Yes -Correct Side, Site, Position Yes -Correct Procedure Yes -Procedure Performed Yes -Type of Procedure Debridement -Clinical Debridement Subcutaneous -Post Debridement Size (cm) - Length 0.7 -Post Debridement Size (cm) - Width 0.8 -Post Debridement Size (cm) - Depth 0.2 -Total Square Cm 0.56 -Wound/Ulcer Outcome Not Healed -Ulcer Cleansing Rinsed/ Irrigated with Saline -Foul Odor after Cleansing No -Bioengineered Tissue Yes -Type of bioengineered Tissue EPIFIX -Expiration Date 06/29/22 -Product Lot Number [id number] -Percent Used 100 -Saline Lot Number HYDROG -Topical Lidocaine (%) 4 -Lidocaine (ml) 10 -Bleeding Controlled with NA -Other -Treatment Response Procedure Tolerated Well #3 RIGHT HEEL -Time 10:04 -Correct Patient Yes -Correct Side, Site, Position Yes -Correct Procedure Yes -Procedure Performed Yes -Type of Procedure Debridement -Clinical Debridement Subcutaneous -Post Debridement Size (cm) - Length 1.5 -Post Debridement Size (cm) - Width 1.4 -Post Debridement Size (cm) - Depth 0.3 -Total Square Cm 2.10 -Wound/Ulcer Outcome Not Healed -Ulcer Cleansing Rinsed/ Irrigated with Saline -Foul Odor after Cleansing No -Bioengineered Tissue -Type of bioengineered Tissue -Expiration Date 06/29/22 -Product Lot Number [id number] -Percent Used 100 -Saline Lot Number HYDROG -Topical Lidocaine (%) 4 -Lidocaine (ml) 10 -Bleeding Controlled with NA -Other -Treatment Response Procedure Tolerated Well Pain Scale: 0-10 Numeric Is Patient Pain Free? Yes Wound debrided: First metatarsal head left foot Type of Debridement: Excisional debridement Anesthesia Used: 5% Lidocaine Gel Depth: Down to and including healthy tissue, in the subcutaneous layer, to muscle Instrument Used: 5mm curette Tissue Removed: Fibrin and some devitalized tissue Severity: Limited To Skin Breakdown Amount of bleeding with debridement: None Bleeding Controlled with: Pressure Patient tolerated procedure well - Additional Wound Wound debrided: Right heel ulcer Type of Debridement: Excisional debridement Anesthesia Used: 5% Lidocaine Gel Depth: Down to and including healthy tissue, in the subcutaneous layer Percentage of wound debrided: 100 Instrument Used: 7mm curette, #15 blade Tissue Removed: Callus and fibrin Amount of bleeding with debridement: Mild Bleeding Controlled with: Pressure Patient tolerated procedure: Patient tolerated procedure well Assessment/Plan Active Problems (Last Updated 08/19/17 @ 09:45 by Patricia Hanks) Decubitus ulcer of right heel, stage 3 (Acute) Infected decubitus ulcer (Acute) Arthritis (Chronic) Hypertension (Chronic) Diabetic foot ulcer associated with type 2 diabetes mellitus (Acute) Non-pressure chronic ulcer of other part of right foot limited to breakdown of skin (Chronic) Tobacco abuse counseling (Acute) Assessment: Type II diabetic. Tobacco abuser. DFU Scott 2 to right foot heel. First metatarsal head ulcer left foot Plan: Applied #2 epi fix between the 2 ulcers covered with hydrogel veil Steri- Strips and protective padded gauze dressings. Offload as much as possible follow-up with you and keep [employer] for new shoe. Start ciprofloxacin 500 mg 1 p.o. twice daily for 14 days #28. Also start Diflucan 100 mg 1 p.o. daily for 30 days. Follow up in 1 week
== END 2017-09-27 23:59 ==
LOC: WC 09:30
PROVIDERS: Family Provider Internal Medicine; PCP Internal Medicine; Visit Provider Nurse Practitioner
DX: E11.621 Type 2 diabetes mellitus with foot ulcer (principal); L89.613 Pressure ulcer of right heel, stage 3; M19.90 Unspecified osteoarthritis, unspecified site; I10 Essential (primary) hypertension; L97.521 Non-pressure chronic ulcer of other part of left foot limited to breakdown of skin; Z72.0 Tobacco use; L84 Corns and callosities; Z91.19 Patient's noncompliance with other medical treatment and regimen
CPT/HCPCS: 11042; 15271; 15275; 87070; 87075; 87077; 87186; 87205; 99212; Q4131; G0463

== ENCOUNTER → 2017-10-23 14:32 | Outpatient (CLI) | payer MEDICARE, SELFPAY ==
[2017-10-23 15:44] LABS: Absolute Lymphocyte Count 2.05 X10^3/ul (0.83-4.51); Absolute Neutrophil Count 5.4 X10^3/uL (2.0-7.7); Basophil# 0.04 X10^3/uL; Basophil% 0.5 % (0-1); Eosinophil# 0.27 X10^3/uL; Eosinophils% 3.2 % (0-5); Hematocrit 36.4 % (37-47); Hemoglobin 11.7 g/dl (12.0-15.0); Lymphocyte # 2.05 X10^3/ul (4.0); Lymphocyte % 24.1 % (19-41); Mean Corp Hgb Conc 32.1 g/gl (32-36); Mean Corpuscular Hgb 29.1 pg (27.0-32.0); Mean Corpuscular Volume 90.5 fL (81-99); Mean Platelet Vol. 9.8 fl (6.2-12.0); Monocyte# 0.65 X10^3/uL; Monocyte% 7.7 % (0-10); Neutrophil % 63.6 % (47-70); Platelet Count 271 K/mm3 (150-450); RBC Distribution Width CV 16.1 % (11.6-14.6); RBC Distribution Width SD 52.6 fl (35.1-43.9); Red Blood Count 4.02 M/mm3 (4.2-5.4); White Blood Count 8.5 K/mm3 (4.4-11.0)
[2017-10-23 15:55] LABS: POSITIVE COUNT NO; POSITIVE DIFFERENTIAL NO; POSITIVE MORPHOLOGY NO
[2017-10-23 16:18] LABS: Color, Urine Yellow (Yellow); Glucose, Dipstick Normal (Normal); Ketone-Dipstick Negative (Negative); Leukocyte Esterase-Dipstick 100 /ul (Negative); Nitrite-Dipstick Negative (Negative); Occult Blood-Urine 10 /ul (Negative); Protein-Dipstick 100 mg/dl (Negative); Specific Gravity, Urine 1.015 (1.002-1.030); Urine Bilirubin Dipstick Negative (Negative); Urine Clarity Clear (Clear); Urine Urobilinogen Normal (Normal)
[2017-10-23 16:26] LABS: ALB/GLOB Ratio 0.8 RATIO (0.9-2.4); AST(SGOT) 13 U/L (15-37); Alanine Aminotransfer ALT/SGPT 23 U/L (13-56); Albumin, Serum 3.5 g/dL (3.2-5.0); Alkaline Phosphatase 113 U/L (45-117); Anion Gap 10 (5-15); BUN 61 mg/dL (7-18); BUN/Creat Ratio 23.8 RATIO (10-20); Calcium,Total 9.2 mg/dL (8.5-10.1); Chloride 107 mmol/L (98-107); Creatinine, Serum 2.56 mg/dL (0.55-1.02); EST Glomerular Filtration Rate 20 mL/min (>60); Est Glom Filt Rate - Afr Amer 25 mL/min (>60); Globulin 4.2 g/dL (2.2-4.2); Glucose 149 mg/dL (74-106); Potassium 5.2 mmol/L (3.5-5.1); Protein, Total 7.7 g/dL (6.4-8.2); Sodium Level 137 mmol/L (136-145); Uric Acid 4.9 mg/dL (2.6-6.0)
[2017-10-23 16:27] LABS: Protein, Urine (Random) 103.8 mg/dL (<11.9); Protein:Creat Ratio 1622 mg/g CRE (0-200)
== END ==
PROVIDERS: Family Provider Internal Medicine; PCP Internal Medicine; Visit Provider Internal Medicine Rheumatology
DX: M06.4 Inflammatory polyarthropathy (principal); M79.7 Fibromyalgia; M32.9 Systemic lupus erythematosus, unspecified; M10.9 Gout, unspecified; K76.0 Fatty (change of) liver, not elsewhere classified; G47.33 Obstructive sleep apnea (adult) (pediatric); E11.22 Type 2 diabetes mellitus with diabetic chronic kidney disease; I12.9 Hypertensive chronic kidney disease with stage 1 through stage 4 chronic kidney disease, or unspecified chronic kidney disease; N18.9 Chronic kidney disease, unspecified; E78.5 Hyperlipidemia, unspecified; J44.9 Chronic obstructive pulmonary disease, unspecified
CPT/HCPCS: 36415; 80053; 81002; 82570; 84156; 84550; 85025

== ENCOUNTER 2017-10-24 10:00 | Outpatient (RCR) | payer MEDICARE, SELFPAY ==
[2017-09-28 00:42] VITALS: BP 101/49; PULSE 75; RESP 18; TEMP 36.5
[2017-10-03 09:30] VITALS: BP 104/64; PULSE 78; RESP 20; TEMP 36.4
--- NOTE | 2017-10-03 14:20 | PCM.WC.PN ---
(1) Decubitus ulcer of right heel, stage 3 Status: Acute Current Visit: Yes Code(s): L89.613 - Pressure ulcer of right heel, stage 3 (2) Tobacco abuse counseling Status: Acute Current Visit: Yes Code(s): Z71.6 - Tobacco abuse counseling (3) History of diabetes mellitus, type II Status: Chronic Current Visit: Yes Code(s): Z86.39 - Personal history of other endocrine, nutritional and metabolic disease (4) Hypertension Status: Chronic Current Visit: Yes Code(s): I10 - Essential (primary) hypertension (5) Non-pressure chronic ulcer of other part of right foot limited to breakdown of skin Status: Chronic Current Visit: Yes Code(s): L97.511 - Non-pressure chronic ulcer of other part of right foot limited to breakdown of skin Type of Wound Date of Service: 10/03/17 Chief Complaint: R foot DFU History of Wound: 57 year old woman with r DFU heel willy 1. Hx of many feet ulcers that heal well Progress of Wound: today the first metatarsal ulcer of the left foot DFU is most healed on epi fix #2. 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 She has been taking her Levaquin antibiotic and tolerating it well. She has refused anything like a special shoe or cast or anything because of her balance and money. She still refuses to stop smoking. Patient was approved for epi fix and we split epi fix between the toe and the heel today #3 applied. The epi fix is medically necessary because of poor noncompliance with usual treatment patterns has really increase the ability to heal this ulcer on her metatarsal head and her heel .Patient is falling more and more because she states she has low blood pressure and cannot get in to see her regular doctor. Again a lot of callus that had to be debrided around the ulcer which made it a little bit bigger. Patient was also encouraged to eat Dannon yogurt. We cultured today the right heel. - Physical Exam Vital Signs Temp Pulse Resp BP 97.5 F L 78 20 H 104/64 10/03/17 09:30 10/03/17 09:30 10/03/17 09:30 10/03/17 09:30 General: Oriented x3, Cooperative, Well developed HEENT: Atraumatic, PERRLA Oral: Moist Mucosa Neck: Supple, No JVD Lungs: Clear to auscultation, Normal air movement Cardiovascular: Regular rate, Regular Rhythm Abdomen: Bowel Sounds Present, Soft, Non Tender, No Hepato-splenomegaly Extremities: No clubbing, No edema Skin: Ulcer/ Wound - Right heel ulcer stage III and left first metatarsal head ulcer Wound Measurements and Assessment WC - Nurse 1 - General Ulcer Measurement Start: 10/03/17 09:29 Freq: Status: Active Protocol: Activity Type Activity Date Activity User E-Sign Co-Sign Detail Recorded Client Recorded Date Recorded By Document 10/03/17 09:30 TN [id number] 10/03/17 09:47 TN 10/03/17 09:30 Wound Center Nurse 1 [Ulcer Assessment] #5 LEFT PLANTAR GREAT TOE (Base) -Combined with other wound No -Current Size (cm) - Length 0.5 -Current Size (cm) - Width 1.1 -Current Size (cm) - Depth 0.2 -Total Square Cm 0.55 -Date of Last Picture (Recall this 10/03/17 field) -Photo Taken Yes -Tunneling No -Undermining/Tunneling No -Circular Undermining No -Classification - Thickness Full Thickness without Exposed Support Structure -Change in Wound Grade/Stage No Query Text:If change please identify the Stage/Grade in the comment (ie. S2 G3) -Exudate Amt Small (1-33%) -Exudate Type Serous -Wound Margin Distinct, Outline Attached -Granulation Amt Small (1-33%) -Granulation Quality [place] -Slough/Fibrin Yes -Necrotic Tissue Type Adherent Slough -Structure Exposed None/Limited to Skin Breakdown -Texture (Loly-wound Skin Appearance) Assessed Callus -Color (Loly-wound Skin Appearance) No Abnormality Assessed -Temperature (Loly-wound Skin No Abnormality Appearance) (Pt Warm) -Tenderness on Palpation (Loly-wound No Skin Appearance) -Ulcer Cleansing Wound Cleanser -Foul Odor after Cleansing No -Anesthetic Used 5% Lidocaine Gel #3 RIGHT HEEL -Combined with other wound No -Current Size (cm) - Length 1.2 -Current Size (cm) - Width 1.3 -Current Size (cm) - Depth 0.3 -Total Square Cm 1.56 -Date of Last Picture (Recall this 10/03/17 field) -Photo Taken Yes -Epithelialization None Present -Tunneling No -Undermining/Tunneling No -Circular Undermining No -Classification - Thickness Full Thickness without Exposed Support Structure -Change in Wound Grade/Stage No Query Text:If change please identify the Stage/Grade in the comment (ie. S2 G3) -Exudate Amt Small (1-33%) -Exudate Type Serous -Wound Margin Distinct, Outline Attached -Granulation Amt Medium (34-66%) -Granulation Quality [place] -Slough/Fibrin Yes -Necrosis Amt Small (1-33%) -Necrotic Tissue Type Adherent Slough -Structure Exposed None/Limited to Skin Breakdown -Texture (Loly-wound Skin Appearance) Assessed Callus -Moisture (Loly-wound Skin Appearance Assessed ) Dry/Scaly -Color (Loly-wound Skin Appearance) No Abnormality Assessed -Temperature (Loly-wound Skin No Abnormality Appearance) (Pt Warm) -Tenderness on Palpation (Loly-wound No Skin Appearance) -Ulcer Cleansing Wound Cleanser -Foul Odor after Cleansing No -Anesthetic Used 5% Lidocaine Gel [Edema Assessment] -Lower Limb Edema Present No -Right Calf (cm) 38.9 -Right Ankle (cm) 23.6 -Left Calf (cm) 39.8 -Left Ankle (cm) 22.6 WC - Nurse 2 - General Ulcer CM Notes Start: 10/03/17 09:29 Freq: Status: Active Protocol: Activity Type Activity Date Activity User E-Sign Co-Sign Detail Recorded Client Recorded Date Recorded By Document 10/03/17 11:12 DESTINEY [id number] 10/03/17 11:22 DESTINEY 10/03/17 11:12 Wound Center Nurse 2 [Procedure/Treatment] #5 LEFT PLANTAR GREAT TOE (Base) -Time 11:12 -Correct Patient Yes -Correct Side, Site, Position Yes -Correct Procedure Yes -Procedure Performed Yes -Type of Procedure Debridement -Clinical Debridement Subcutaneous -Post Debridement Size (cm) - Length 0.3 -Post Debridement Size (cm) - Width 0.3 -Post Debridement Size (cm) - Depth 0.1 -Total Square Cm 0.09 -Wound/Ulcer Outcome Not Healed -Ulcer Cleansing Rinsed/ Irrigated with Saline -Foul Odor after Cleansing No -Bioengineered Tissue Yes -Type of bioengineered Tissue EPIFIX -Expiration Date 06/29/22 -Product Lot Number [id number] -Percent Used 100 -Saline Lot Number [id number] -Topical Lidocaine (%) 4 -Lidocaine (ml) 5 -Bleeding Controlled with NA -Treatment Response Procedure Tolerated Well #3 RIGHT HEEL -Time 11:13 -Correct Patient Yes -Correct Side, Site, Position Yes -Correct Procedure Yes -Procedure Performed Yes -Type of Procedure Debridement -Clinical Debridement Subcutaneous -Post Debridement Size (cm) - Length 1.0 -Post Debridement Size (cm) - Width 1.3 -Post Debridement Size (cm) - Depth 0.3 -Total Square Cm 1.30 -Wound/Ulcer Outcome Not Healed -Ulcer Cleansing Rinsed/ Irrigated with Saline -Foul Odor after Cleansing No -Bioengineered Tissue Yes -Type of bioengineered Tissue EPIFIX -Expiration Date 06/29/22 -Product Lot Number [id number] -Percent Used 100 -Saline Lot Number [id number] -Topical Lidocaine (%) 4 -Lidocaine (ml) 5 -Bleeding Controlled with NA -Treatment Response Procedure Tolerated Well [See Physician Procedure note for Specifics] Pain Scale: 0-10 Numeric [Pain] -Is Patient Pain Free? Yes Musculoskeletal: No Tenderness to Palpation of Joints or Extremities Lymphatic: No Cervical, Supraclavicular, or Inguinal Adenopathy Neurological: Cranial nerves II-XII grossly intact, Neuro grossly intact Psych/Mental Status: Normal Affect, Appropriate Debridement Note Post-Debridement Measurements/Treatment WC - Nurse 2 - General Ulcer CM Notes Start: 10/03/17 09:29 Freq: Status: Active Protocol: Activity Type Activity Date Activity User E-Sign Co-Sign Detail Recorded Client Recorded Date Recorded By Document 10/03/17 11:12 [email or web address] 10/03/17 11:22 DESTINEY 10/03/17 11:12 Wound Center Nurse 2 #5 LEFT PLANTAR GREAT TOE (Base) -Time 11:12 -Correct Patient Yes -Correct Side, Site, Position Yes -Correct Procedure Yes -Procedure Performed Yes -Type of Procedure Debridement -Clinical Debridement Subcutaneous -Post Debridement Size (cm) - Length 0.3 -Post Debridement Size (cm) - Width 0.3 -Post Debridement Size (cm) - Depth 0.1 -Total Square Cm 0.09 -Wound/Ulcer Outcome Not Healed -Ulcer Cleansing Rinsed/ Irrigated with Saline -Foul Odor after Cleansing No -Bioengineered Tissue Yes -Type of bioengineered Tissue EPIFIX -Expiration Date 06/29/22 -Product Lot Number [id number] -Percent Used 100 -Saline Lot Number [id number] -Topical Lidocaine (%) 4 -Lidocaine (ml) 5 -Bleeding Controlled with NA -Treatment Response Procedure Tolerated Well #3 RIGHT HEEL -Time 11:13 -Correct Patient Yes -Correct Side, Site, Position Yes -Correct Procedure Yes -Procedure Performed Yes -Type of Procedure Debridement -Clinical Debridement Subcutaneous -Post Debridement Size (cm) - Length 1.0 -Post Debridement Size (cm) - Width 1.3 -Post Debridement Size (cm) - Depth 0.3 -Total Square Cm 1.30 -Wound/Ulcer Outcome Not Healed -Ulcer Cleansing Rinsed/ Irrigated with Saline -Foul Odor after Cleansing No -Bioengineered Tissue Yes -Type of bioengineered Tissue EPIFIX -Expiration Date 06/29/22 -Product Lot Number [id number] -Percent Used 100 -Saline Lot Number [id number] -Topical Lidocaine (%) 4 -Lidocaine (ml) 5 -Bleeding Controlled with NA -Treatment Response Procedure Tolerated Well Pain Scale: 0-10 Numeric Is Patient Pain Free? Yes Wound debrided: Heel ulcer Wound Grade/Stage: Stage III Type of Debridement: Excisional debridement Anesthesia Used: 5% Lidocaine Gel Depth: Down to and including healthy tissue, in the subcutaneous layer Instrument Used: 7mm curette, - - Nippers Tissue Removed: Callus and fibrin Severity: Limited To Skin Breakdown Amount of bleeding with debridement: Mild Bleeding Controlled with: Pressure, Compression and gauze Patient tolerated procedure well - Additional Wound Wound debrided: Left first metatarsal head Type of Debridement: Excisional debridement Anesthesia Used: 5% Lidocaine Gel Depth: Down to and including healthy tissue, in the subcutaneous layer Instrument Used: 5mm curette Tissue Removed: Fibrin Severity: Limited To Skin Breakdown Assessment/Plan Active Problems (Last Updated 08/19/17 @ 09:45 by Patricia Hanks) Decubitus ulcer of right heel, stage 3 (Acute) Hypertension (Chronic) Non-pressure chronic ulcer of other part of right foot limited to breakdown of skin (Chronic) Tobacco abuse counseling (Acute) History of diabetes mellitus, type II (Chronic) Assessment: Type II diabetic. Tobacco abuser. DFU Scott 2 to right foot heel. First metatarsal head ulcer left foot Plan: Applied #3 epi fix between the 2 ulcers covered with hydrogel veil Steri-Strips and protective padded gauze dressings. Offload as much as possible follow-up with you and keep bionics for new shoe. Finish ciprofloxacin 500 mg 1 p.o. twice daily for 14 days #28. Also start Diflucan 100 mg 1 p.o. daily for 30 days. Follow up in 1 week
--- NOTE | 2017-10-03 14:25 | PN.PCM_ITS ---
(1) Decubitus ulcer of right heel, stage 3 Status: Acute Current Visit: Yes Code(s): L89.613 - Pressure ulcer of right heel, stage 3 (2) Tobacco abuse counseling Status: Acute Current Visit: Yes Code(s): Z71.6 - Tobacco abuse counseling (3) History of diabetes mellitus, type II Status: Chronic Current Visit: Yes Code(s): Z86.39 - Personal history of other endocrine, nutritional and metabolic disease (4) Hypertension Status: Chronic Current Visit: Yes Code(s): I10 - Essential (primary) hypertension (5) Non-pressure chronic ulcer of other part of right foot limited to breakdown of skin Status: Chronic Current Visit: Yes Code(s): L97.511 - Non-pressure chronic ulcer of other part of right foot limited to breakdown of skin Type of Wound Date of Service: 10/03/17 Chief Complaint: R foot DFU History of Wound: 57 year old woman with r DFU heel willy 1. Hx of many feet ulcers that heal well Progress of Wound: today the first metatarsal ulcer of the left foot DFU is most healed on epi fix #2. 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 She has been taking her Levaquin antibiotic and tolerating it well. She has refused anything like a special shoe or cast or anything because of her balance and money. She still refuses to stop smoking. Patient was approved for epi fix and we split epi fix between the toe and the heel today #3 applied. The epi fix is medically necessary because of poor noncompliance with usual treatment patterns has really increase the ability to heal this ulcer on her metatarsal head and her heel .Patient is falling more and more because she states she has low blood pressure and cannot get in to see her regular doctor. Again a lot of callus that had to be debrided around the ulcer which made it a little bit bigger. Patient was also encouraged to eat Dannon yogurt. We cultured today the right heel. - Physical Exam Vital Signs Temp Pulse Resp BP 97.5 F L 78 20 H 104/64 10/03/17 09:30 10/03/17 09:30 10/03/17 09:30 10/03/17 09:30 General: Oriented x3, Cooperative, Well developed HEENT: Atraumatic, PERRLA Oral: Moist Mucosa Neck: Supple, No JVD Lungs: Clear to auscultation, Normal air movement Cardiovascular: Regular rate, Regular Rhythm Abdomen: Bowel Sounds Present, Soft, Non Tender, No Hepato-splenomegaly Extremities: No clubbing, No edema Skin: Ulcer/ Wound - Right heel ulcer stage III and left first metatarsal head ulcer Wound Measurements and Assessment WC - Nurse 1 - General Ulcer Measurement Start: 10/03/17 09:29 Freq: Status: Active Protocol: Activity Type Activity Date Activity User E-Sign Co-Sign Detail Recorded Client Recorded Date Recorded By Document 10/03/17 09:30 TN [id number] 10/03/17 09:47 TN 10/03/17 09:30 Wound Center Nurse 1 [Ulcer Assessment] #5 LEFT PLANTAR GREAT TOE (Base) -Combined with other wound No -Current Size (cm) - Length 0.5 -Current Size (cm) - Width 1.1 -Current Size (cm) - Depth 0.2 -Total Square Cm 0.55 -Date of Last Picture (Recall this 10/03/17 field) -Photo Taken Yes -Tunneling No -Undermining/Tunneling No -Circular Undermining No -Classification - Thickness Full Thickness without Exposed Support Structure -Change in Wound Grade/Stage No Query Text:If change please identify the Stage/Grade in the comment (ie. S2 G3) -Exudate Amt Small (1-33%) -Exudate Type Serous -Wound Margin Distinct, Outline Attached -Granulation Amt Small (1-33%) -Granulation Quality [place] -Slough/Fibrin Yes -Necrotic Tissue Type Adherent Slough -Structure Exposed None/Limited to Skin Breakdown -Texture (Loly-wound Skin Appearance) Assessed Callus -Color (Loly-wound Skin Appearance) No Abnormality Assessed -Temperature (Loly-wound Skin No Abnormality Appearance) (Pt Warm) -Tenderness on Palpation (Loly-wound No Skin Appearance) -Ulcer Cleansing Wound Cleanser -Foul Odor after Cleansing No -Anesthetic Used 5% Lidocaine Gel #3 RIGHT HEEL -Combined with other wound No -Current Size (cm) - Length 1.2 -Current Size (cm) - Width 1.3 -Current Size (cm) - Depth 0.3 -Total Square Cm 1.56 -Date of Last Picture (Recall this 10/03/17 field) -Photo Taken Yes -Epithelialization None Present -Tunneling No -Undermining/Tunneling No -Circular Undermining No -Classification - Thickness Full Thickness without Exposed Support Structure -Change in Wound Grade/Stage No Query Text:If change please identify the Stage/Grade in the comment (ie. S2 G3) -Exudate Amt Small (1-33%) -Exudate Type Serous -Wound Margin Distinct, Outline Attached -Granulation Amt Medium (34-66%) -Granulation Quality [place] -Slough/Fibrin Yes -Necrosis Amt Small (1-33%) -Necrotic Tissue Type Adherent Slough -Structure Exposed None/Limited to Skin Breakdown -Texture (Loly-wound Skin Appearance) Assessed Callus -Moisture (Loly-wound Skin Appearance Assessed ) Dry/Scaly -Color (Loly-wound Skin Appearance) No Abnormality Assessed -Temperature (Loly-wound Skin No Abnormality Appearance) (Pt Warm) -Tenderness on Palpation (Loly-wound No Skin Appearance) -Ulcer Cleansing Wound Cleanser -Foul Odor after Cleansing No -Anesthetic Used 5% Lidocaine Gel [Edema Assessment] -Lower Limb Edema Present No -Right Calf (cm) 38.9 -Right Ankle (cm) 23.6 -Left Calf (cm) 39.8 -Left Ankle (cm) 22.6 WC - Nurse 2 - General Ulcer CM Notes Start: 10/03/17 09:29 Freq: Status: Active Protocol: Activity Type Activity Date Activity User E-Sign Co-Sign Detail Recorded Client Recorded Date Recorded By Document 10/03/17 11:12 DESTINEY [id number] 10/03/17 11:22 DESTINEY 10/03/17 11:12 Wound Center Nurse 2 [Procedure/Treatment] #5 LEFT PLANTAR GREAT TOE (Base) -Time 11:12 -Correct Patient Yes -Correct Side, Site, Position Yes -Correct Procedure Yes -Procedure Performed Yes -Type of Procedure Debridement -Clinical Debridement Subcutaneous -Post Debridement Size (cm) - Length 0.3 -Post Debridement Size (cm) - Width 0.3 -Post Debridement Size (cm) - Depth 0.1 -Total Square Cm 0.09 -Wound/Ulcer Outcome Not Healed -Ulcer Cleansing Rinsed/ Irrigated with Saline -Foul Odor after Cleansing No -Bioengineered Tissue Yes -Type of bioengineered Tissue EPIFIX -Expiration Date 06/29/22 -Product Lot Number [id number] -Percent Used 100 -Saline Lot Number [id number] -Topical Lidocaine (%) 4 -Lidocaine (ml) 5 -Bleeding Controlled with NA -Treatment Response Procedure Tolerated Well #3 RIGHT HEEL -Time 11:13 -Correct Patient Yes -Correct Side, Site, Position Yes -Correct Procedure Yes -Procedure Performed Yes -Type of Procedure Debridement -Clinical Debridement Subcutaneous -Post Debridement Size (cm) - Length 1.0 -Post Debridement Size (cm) - Width 1.3 -Post Debridement Size (cm) - Depth 0.3 -Total Square Cm 1.30 -Wound/Ulcer Outcome Not Healed -Ulcer Cleansing Rinsed/ Irrigated with Saline -Foul Odor after Cleansing No -Bioengineered Tissue Yes -Type of bioengineered Tissue EPIFIX -Expiration Date 06/29/22 -Product Lot Number [id number] -Percent Used 100 -Saline Lot Number [id number] -Topical Lidocaine (%) 4 -Lidocaine (ml) 5 -Bleeding Controlled with NA -Treatment Response Procedure Tolerated Well [See Physician Procedure note for Specifics] Pain Scale: 0-10 Numeric [Pain] -Is Patient Pain Free? Yes Musculoskeletal: No Tenderness to Palpation of Joints or Extremities Lymphatic: No Cervical, Supraclavicular, or Inguinal Adenopathy Neurological: Cranial nerves II-XII grossly intact, Neuro grossly intact Psych/Mental Status: Normal Affect, Appropriate Debridement Note Post-Debridement Measurements/Treatment WC - Nurse 2 - General Ulcer CM Notes Start: 10/03/17 09:29 Freq: Status: Active Protocol: Activity Type Activity Date Activity User E-Sign Co-Sign Detail Recorded Client Recorded Date Recorded By Document 10/03/17 11:12 [id number] 10/03/17 11:22 DESTINEY 10/03/17 11:12 Wound Center Nurse 2 #5 LEFT PLANTAR GREAT TOE (Base) -Time 11:12 -Correct Patient Yes -Correct Side, Site, Position Yes -Correct Procedure Yes -Procedure Performed Yes -Type of Procedure Debridement -Clinical Debridement Subcutaneous -Post Debridement Size (cm) - Length 0.3 -Post Debridement Size (cm) - Width 0.3 -Post Debridement Size (cm) - Depth 0.1 -Total Square Cm 0.09 -Wound/Ulcer Outcome Not Healed -Ulcer Cleansing Rinsed/ Irrigated with Saline -Foul Odor after Cleansing No -Bioengineered Tissue Yes -Type of bioengineered Tissue EPIFIX -Expiration Date 06/29/22 -Product Lot Number [id number] -Percent Used 100 -Saline Lot Number [id number] -Topical Lidocaine (%) 4 -Lidocaine (ml) 5 -Bleeding Controlled with NA -Treatment Response Procedure Tolerated Well #3 RIGHT HEEL -Time 11:13 -Correct Patient Yes -Correct Side, Site, Position Yes -Correct Procedure Yes -Procedure Performed Yes -Type of Procedure Debridement -Clinical Debridement Subcutaneous -Post Debridement Size (cm) - Length 1.0 -Post Debridement Size (cm) - Width 1.3 -Post Debridement Size (cm) - Depth 0.3 -Total Square Cm 1.30 -Wound/Ulcer Outcome Not Healed -Ulcer Cleansing Rinsed/ Irrigated with Saline -Foul Odor after Cleansing No -Bioengineered Tissue Yes -Type of bioengineered Tissue EPIFIX -Expiration Date 06/29/22 -Product Lot Number [id number] -Percent Used 100 -Saline Lot Number [id number] -Topical Lidocaine (%) 4 -Lidocaine (ml) 5 -Bleeding Controlled with NA -Treatment Response Procedure Tolerated Well Pain Scale: 0-10 Numeric Is Patient Pain Free? Yes Wound debrided: Heel ulcer Wound Grade/Stage: Stage III Type of Debridement: Excisional debridement Anesthesia Used: 5% Lidocaine Gel Depth: Down to and including healthy tissue, in the subcutaneous layer Instrument Used: 7mm curette, - - Nippers Tissue Removed: Callus and fibrin Severity: Limited To Skin Breakdown Amount of bleeding with debridement: Mild Bleeding Controlled with: Pressure, Compression and gauze Patient tolerated procedure well - Additional Wound Wound debrided: Left first metatarsal head Type of Debridement: Excisional debridement Anesthesia Used: 5% Lidocaine Gel Depth: Down to and including healthy tissue, in the subcutaneous layer Instrument Used: 5mm curette Tissue Removed: Fibrin Severity: Limited To Skin Breakdown Assessment/Plan Active Problems (Last Updated 08/19/17 @ 09:45 by Patricia Hanks) Decubitus ulcer of right heel, stage 3 (Acute) Hypertension (Chronic) Non-pressure chronic ulcer of other part of right foot limited to breakdown of skin (Chronic) Tobacco abuse counseling (Acute) History of diabetes mellitus, type II (Chronic) Assessment: Type II diabetic. Tobacco abuser. DFU Scott 2 to right foot heel. First metatarsal head ulcer left foot Plan: Applied #3 epi fix between the 2 ulcers covered with hydrogel veil Steri- Strips and protective padded gauze dressings. Offload as much as possible follow-up with you and keep bionics for new shoe. Finish ciprofloxacin 500 mg 1 p.o. twice daily for 14 days #28. Also start Diflucan 100 mg 1 p.o. daily for 30 days. Follow up in 1 week
[2017-10-10 10:05] VITALS: BP 100/63; PULSE 74; RESP 18; TEMP 36.3
--- NOTE | 2017-10-10 11:03 | PCM.WC.PN ---
(1) Decubitus ulcer of right heel, stage 3 Status: Acute Current Visit: Yes Code(s): L89.613 - Pressure ulcer of right heel, stage 3 (2) Tobacco abuse counseling Status: Acute Current Visit: Yes Code(s): Z71.6 - Tobacco abuse counseling (3) History of diabetes mellitus, type II Status: Chronic Current Visit: Yes Code(s): Z86.39 - Personal history of other endocrine, nutritional and metabolic disease (4) Hypertension Status: Chronic Current Visit: Yes Code(s): I10 - Essential (primary) hypertension (5) Non-pressure chronic ulcer of other part of right foot limited to breakdown of skin Status: Chronic Current Visit: Yes Code(s): L97.511 - Non-pressure chronic ulcer of other part of right foot limited to breakdown of skin Type of Wound Date of Service: 10/10/17 Chief Complaint: R foot DFU History of Wound: 57 year old woman with r DFU heel willy 1. Hx of many feet ulcers that heal well Progress of Wound: today the first metatarsal ulcer of the left foot DFU is healed on epi fix #3. 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 She has finished taking her Levaquin antibiotic . She has refused anything like a special shoe or cast or anything because of her balance and money. She still refuses to stop smoking. The epi fix is medically necessary because of poor noncompliance with usual treatment patterns has healed ulcer on her metatarsal head and her heel is improving.Patient is falling more and more because she states she has low blood pressure and cannot get in to see her regular doctor. Again a lot of callus that had to be debrided around the ulcer which made it a little bit bigger. Patient was also encouraged to eat Dannon yogurt. - Physical Exam Vital Signs Temp Pulse Resp BP 97.3 F L 74 18 100/63 10/10/17 10:05 10/10/17 10:05 10/10/17 10:05 10/10/17 10:05 General: Oriented x3, Cooperative, Well developed HEENT: Atraumatic, PERRLA Oral: Moist Mucosa Neck: Supple, No JVD Lungs: Clear to auscultation, Normal air movement Cardiovascular: Regular rate, Regular Rhythm Abdomen: Bowel Sounds Present, Soft, Non Tender, No Hepato-splenomegaly Extremities: No clubbing, No edema Skin: Ulcer/ Wound - DFU first metatarsal head left foot and right heel Wound Measurements and Assessment WC - Nurse 1 - General Ulcer Measurement Start: 10/03/17 09:29 Freq: Status: Active Protocol: Activity Type Activity Date Activity User E-Sign Co-Sign Detail Recorded Client Recorded Date Recorded By Document 10/10/17 10:05 DL [id number] 10/10/17 10:11 DL 10/10/17 10:05 Wound Center Nurse 1 [Ulcer Assessment] #5 LEFT PLANTAR GREAT TOE (Base) -Current Size (cm) - Length 0.2 -Current Size (cm) - Width 0.2 -Current Size (cm) - Depth 0.1 -Total Square Cm 0.04 -Photo Taken No -Exudate Amt Small (1-33%) -Exudate Type Serosanguineous -Wound Margin Thickened -Granulation Amt Large (67-100%) -Granulation Quality Pale [place] -Necrosis Amt None Present (0 %) -Structure Exposed N/A -Texture (Loly-wound Skin Appearance) Callus -Moisture (Lloy-wound Skin Appearance Dry/Scaly ) -Color (Loly-wound Skin Appearance) Hemosiderin Staining -Temperature (Loly-wound Skin No Abnormality Appearance) (Pt Warm) -Tenderness on Palpation (Loly-wound No Skin Appearance) -Ulcer Cleansing Rinsed/ Irrigated with Saline -Foul Odor after Cleansing No -Anesthetic Used 4% Lidocaine Solution #3 RIGHT HEEL -Current Size (cm) - Length 1 -Current Size (cm) - Width 1.4 -Current Size (cm) - Depth 0.2 -Total Square Cm 1.4 -Photo Taken No -Exudate Amt Small (1-33%) -Exudate Type Serosanguineous -Wound Margin Thickened -Granulation Amt Medium (34-66%) -Granulation Quality [place] -Necrosis Amt Medium (34-66%) -Necrotic Tissue Type Adherent Slough -Structure Exposed N/A -Texture (Loly-wound Skin Appearance) Callus -Moisture (Loly-wound Skin Appearance Dry/Scaly ) -Color (Loly-wound Skin Appearance) No Abnormality Hemosiderin Staining -Temperature (Loly-wound Skin No Abnormality Appearance) (Pt Warm) -Tenderness on Palpation (Loly-wound No Skin Appearance) -Ulcer Cleansing Wound Cleanser -Foul Odor after Cleansing No -Anesthetic Used 4% Lidocaine Solution [Edema Assessment] -Right Calf (cm) 36.5 -Right Ankle (cm) 21.7 Musculoskeletal: No Tenderness to Palpation of Joints or Extremities Lymphatic: No Cervical, Supraclavicular, or Inguinal Adenopathy Neurological: Cranial nerves II-XII grossly intact, Neuro grossly intact Psych/Mental Status: Normal Affect, Appropriate Debridement Note Post-Debridement Measurements/Treatment WC - Nurse 2 - General Ulcer CM Notes Start: 10/03/17 09:29 Freq: Status: Active Protocol: Activity Type Activity Date Activity User E-Sign Co-Sign Detail Recorded Client Recorded Date Recorded By Document 10/03/17 11:12 DESTINEY [id number] 10/03/17 11:22 DESTINEY 10/03/17 11:12 Wound Center Nurse 2 #5 LEFT PLANTAR GREAT TOE (Base) -Time 11:12 -Correct Patient Yes -Correct Side, Site, Position Yes -Correct Procedure Yes -Procedure Performed Yes -Type of Procedure Debridement -Clinical Debridement Subcutaneous -Post Debridement Size (cm) - Length 0.3 -Post Debridement Size (cm) - Width 0.3 -Post Debridement Size (cm) - Depth 0.1 -Total Square Cm 0.09 -Wound/Ulcer Outcome Not Healed -Ulcer Cleansing Rinsed/ Irrigated with Saline -Foul Odor after Cleansing No -Bioengineered Tissue Yes -Type of bioengineered Tissue EPIFIX -Expiration Date 06/29/22 -Product Lot Number [id number] -Percent Used 100 -Saline Lot Number [id number] -Topical Lidocaine (%) 4 -Lidocaine (ml) 5 -Bleeding Controlled with NA -Treatment Response Procedure Tolerated Well #3 RIGHT HEEL -Time 11:13 -Correct Patient Yes -Correct Side, Site, Position Yes -Correct Procedure Yes -Procedure Performed Yes -Type of Procedure Debridement -Clinical Debridement Subcutaneous -Post Debridement Size (cm) - Length 1.0 -Post Debridement Size (cm) - Width 1.3 -Post Debridement Size (cm) - Depth 0.3 -Total Square Cm 1.30 -Wound/Ulcer Outcome Not Healed -Ulcer Cleansing Rinsed/ Irrigated with Saline -Foul Odor after Cleansing No -Bioengineered Tissue Yes -Type of bioengineered Tissue EPIFIX -Expiration Date 06/29/22 -Product Lot Number [id number] -Percent Used 100 -Saline Lot Number [id number] -Topical Lidocaine (%) 4 -Lidocaine (ml) 5 -Bleeding Controlled with NA -Treatment Response Procedure Tolerated Well Pain Scale: 0-10 Numeric Is Patient Pain Free? Yes Wound debrided: Right heel ulcer Type of Debridement: Excisional debridement Anesthesia Used: 5% Lidocaine Gel Depth: Down to and including healthy tissue, in the subcutaneous layer, to muscle Percentage of wound debrided: 100 Instrument Used: 5mm curette Tissue Removed: Callus and fibrin Severity: Limited To Skin Breakdown Amount of bleeding with debridement: Mild Bleeding Controlled with: Compression and gauze Patient tolerated procedure well Assessment/Plan Active Problems (Last Updated 08/19/17 @ 09:45 by Patricia Hanks) Decubitus ulcer of right heel, stage 3 (Acute) Hypertension (Chronic) Non-pressure chronic ulcer of other part of right foot limited to breakdown of skin (Chronic) Tobacco abuse counseling (Acute) History of diabetes mellitus, type II (Chronic) Assessment: Type II diabetic. Tobacco abuser. DFU Scott 2 to right foot heel. First metatarsal head ulcer left foot resolved Plan: Applied #4 epi fix between the 1 heel ulcers covered with hydrogel Adaptic Steri-Strips and protective padded gauze dressings. Offload as much as possible follow-up with you and keep bionics for new shoe. Also start Diflucan 100 mg 1 p.o. daily for 30 days. Follow up in 1 week
--- NOTE | 2017-10-10 11:08 | PN.PCM_ITS ---
(1) Decubitus ulcer of right heel, stage 3 Status: Acute Current Visit: Yes Code(s): L89.613 - Pressure ulcer of right heel, stage 3 (2) Tobacco abuse counseling Status: Acute Current Visit: Yes Code(s): Z71.6 - Tobacco abuse counseling (3) History of diabetes mellitus, type II Status: Chronic Current Visit: Yes Code(s): Z86.39 - Personal history of other endocrine, nutritional and metabolic disease (4) Hypertension Status: Chronic Current Visit: Yes Code(s): I10 - Essential (primary) hypertension (5) Non-pressure chronic ulcer of other part of right foot limited to breakdown of skin Status: Chronic Current Visit: Yes Code(s): L97.511 - Non-pressure chronic ulcer of other part of right foot limited to breakdown of skin Type of Wound Date of Service: 10/10/17 Chief Complaint: R foot DFU History of Wound: 57 year old woman with r DFU heel willy 1. Hx of many feet ulcers that heal well Progress of Wound: today the first metatarsal ulcer of the left foot DFU is healed on epi fix #3. 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 She has finished taking her Levaquin antibiotic . She has refused anything like a special shoe or cast or anything because of her balance and money. She still refuses to stop smoking. The epi fix is medically necessary because of poor noncompliance with usual treatment patterns has healed ulcer on her metatarsal head and her heel is improving.Patient is falling more and more because she states she has low blood pressure and cannot get in to see her regular doctor. Again a lot of callus that had to be debrided around the ulcer which made it a little bit bigger. Patient was also encouraged to eat Dannon yogurt. - Physical Exam Vital Signs Temp Pulse Resp BP 97.3 F L 74 18 100/63 10/10/17 10:05 10/10/17 10:05 10/10/17 10:05 10/10/17 10:05 General: Oriented x3, Cooperative, Well developed HEENT: Atraumatic, PERRLA Oral: Moist Mucosa Neck: Supple, No JVD Lungs: Clear to auscultation, Normal air movement Cardiovascular: Regular rate, Regular Rhythm Abdomen: Bowel Sounds Present, Soft, Non Tender, No Hepato-splenomegaly Extremities: No clubbing, No edema Skin: Ulcer/ Wound - DFU first metatarsal head left foot and right heel Wound Measurements and Assessment WC - Nurse 1 - General Ulcer Measurement Start: 10/03/17 09:29 Freq: Status: Active Protocol: Activity Type Activity Date Activity User E-Sign Co-Sign Detail Recorded Client Recorded Date Recorded By Document 10/10/17 10:05 DL [id number] 10/10/17 10:11 DL 10/10/17 10:05 Wound Center Nurse 1 [Ulcer Assessment] #5 LEFT PLANTAR GREAT TOE (Base) -Current Size (cm) - Length 0.2 -Current Size (cm) - Width 0.2 -Current Size (cm) - Depth 0.1 -Total Square Cm 0.04 -Photo Taken No -Exudate Amt Small (1-33%) -Exudate Type Serosanguineous -Wound Margin Thickened -Granulation Amt Large (67-100%) -Granulation Quality Pale [place] -Necrosis Amt None Present (0 %) -Structure Exposed N/A -Texture (Loly-wound Skin Appearance) Callus -Moisture (Loly-wound Skin Appearance Dry/Scaly ) -Color (Loly-wound Skin Appearance) Hemosiderin Staining -Temperature (Loly-wound Skin No Abnormality Appearance) (Pt Warm) -Tenderness on Palpation (Loly-wound No Skin Appearance) -Ulcer Cleansing Rinsed/ Irrigated with Saline -Foul Odor after Cleansing No -Anesthetic Used 4% Lidocaine Solution #3 RIGHT HEEL -Current Size (cm) - Length 1 -Current Size (cm) - Width 1.4 -Current Size (cm) - Depth 0.2 -Total Square Cm 1.4 -Photo Taken No -Exudate Amt Small (1-33%) -Exudate Type Serosanguineous -Wound Margin Thickened -Granulation Amt Medium (34-66%) -Granulation Quality [place] -Necrosis Amt Medium (34-66%) -Necrotic Tissue Type Adherent Slough -Structure Exposed N/A -Texture (Loly-wound Skin Appearance) Callus -Moisture (Loly-wound Skin Appearance Dry/Scaly ) -Color (Loly-wound Skin Appearance) No Abnormality Hemosiderin Staining -Temperature (Loly-wound Skin No Abnormality Appearance) (Pt Warm) -Tenderness on Palpation (Loly-wound No Skin Appearance) -Ulcer Cleansing Wound Cleanser -Foul Odor after Cleansing No -Anesthetic Used 4% Lidocaine Solution [Edema Assessment] -Right Calf (cm) 36.5 -Right Ankle (cm) 21.7 Musculoskeletal: No Tenderness to Palpation of Joints or Extremities Lymphatic: No Cervical, Supraclavicular, or Inguinal Adenopathy Neurological: Cranial nerves II-XII grossly intact, Neuro grossly intact Psych/Mental Status: Normal Affect, Appropriate Debridement Note Post-Debridement Measurements/Treatment WC - Nurse 2 - General Ulcer CM Notes Start: 10/03/17 09:29 Freq: Status: Active Protocol: Activity Type Activity Date Activity User E-Sign Co-Sign Detail Recorded Client Recorded Date Recorded By Document 10/03/17 11:12 DESTINEY [id number] 10/03/17 11:22 DESTINEY 10/03/17 11:12 Wound Center Nurse 2 #5 LEFT PLANTAR GREAT TOE (Base) -Time 11:12 -Correct Patient Yes -Correct Side, Site, Position Yes -Correct Procedure Yes -Procedure Performed Yes -Type of Procedure Debridement -Clinical Debridement Subcutaneous -Post Debridement Size (cm) - Length 0.3 -Post Debridement Size (cm) - Width 0.3 -Post Debridement Size (cm) - Depth 0.1 -Total Square Cm 0.09 -Wound/Ulcer Outcome Not Healed -Ulcer Cleansing Rinsed/ Irrigated with Saline -Foul Odor after Cleansing No -Bioengineered Tissue Yes -Type of bioengineered Tissue EPIFIX -Expiration Date 06/29/22 -Product Lot Number [id number] -Percent Used 100 -Saline Lot Number [id number] -Topical Lidocaine (%) 4 -Lidocaine (ml) 5 -Bleeding Controlled with NA -Treatment Response Procedure Tolerated Well #3 RIGHT HEEL -Time 11:13 -Correct Patient Yes -Correct Side, Site, Position Yes -Correct Procedure Yes -Procedure Performed Yes -Type of Procedure Debridement -Clinical Debridement Subcutaneous -Post Debridement Size (cm) - Length 1.0 -Post Debridement Size (cm) - Width 1.3 -Post Debridement Size (cm) - Depth 0.3 -Total Square Cm 1.30 -Wound/Ulcer Outcome Not Healed -Ulcer Cleansing Rinsed/ Irrigated with Saline -Foul Odor after Cleansing No -Bioengineered Tissue Yes -Type of bioengineered Tissue EPIFIX -Expiration Date 06/29/22 -Product Lot Number [id number] -Percent Used 100 -Saline Lot Number [id number] -Topical Lidocaine (%) 4 -Lidocaine (ml) 5 -Bleeding Controlled with NA -Treatment Response Procedure Tolerated Well Pain Scale: 0-10 Numeric Is Patient Pain Free? Yes Wound debrided: Right heel ulcer Type of Debridement: Excisional debridement Anesthesia Used: 5% Lidocaine Gel Depth: Down to and including healthy tissue, in the subcutaneous layer, to muscle Percentage of wound debrided: 100 Instrument Used: 5mm curette Tissue Removed: Callus and fibrin Severity: Limited To Skin Breakdown Amount of bleeding with debridement: Mild Bleeding Controlled with: Compression and gauze Patient tolerated procedure well Assessment/Plan Active Problems (Last Updated 08/19/17 @ 09:45 by Patricia Hanks) Decubitus ulcer of right heel, stage 3 (Acute) Hypertension (Chronic) Non-pressure chronic ulcer of other part of right foot limited to breakdown of skin (Chronic) Tobacco abuse counseling (Acute) History of diabetes mellitus, type II (Chronic) Assessment: Type II diabetic. Tobacco abuser. DFU Scott 2 to right foot heel. First metatarsal head ulcer left foot resolved Plan: Applied #4 epi fix between the 1 heel ulcers covered with hydrogel Adaptic Steri-Strips and protective padded gauze dressings. Offload as much as possible follow-up with you and keep bionics for new shoe. Also start Diflucan 100 mg 1 p.o. daily for 30 days. Follow up in 1 week
[2017-10-17 10:37] VITALS: BP 111/65; PULSE 72; RESP 18; TEMP 36.4
--- NOTE | 2017-10-17 11:46 | PCM.WC.PN ---
(1) Decubitus ulcer of right heel, stage 3 Status: Acute Current Visit: Yes Code(s): L89.613 - Pressure ulcer of right heel, stage 3 (2) Tobacco abuse counseling Status: Acute Current Visit: Yes Code(s): Z71.6 - Tobacco abuse counseling (3) History of diabetes mellitus, type II Status: Chronic Current Visit: Yes Code(s): Z86.39 - Personal history of other endocrine, nutritional and metabolic disease (4) Hypertension Status: Chronic Current Visit: Yes Code(s): I10 - Essential (primary) hypertension (5) Non-pressure chronic ulcer of other part of right foot limited to breakdown of skin Status: Chronic Current Visit: No Code(s): L97.511 - Non-pressure chronic ulcer of other part of right foot limited to breakdown of skin Type of Wound Date of Service: 10/17/17 Chief Complaint: R foot DFU History of Wound: 57 year old woman with r DFU heel willy 1. Hx of many feet ulcers that heal well Progress of Wound: The right heel ulcer is open but filling in with new tissue. Epi fix #5 applied to the ulcer base. 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 She has finished taking her Levaquin antibiotic . She has refused anything like a special shoe or cast or anything because of her balance and money. She still refuses to stop smoking. The epi fix is medically necessary because of poor noncompliance with usual treatment patterns has healed ulcer on her metatarsal head and her heel is improving.Patient is falling more and more because she states she has low blood pressure and cannot get in to see her regular doctor. Again a lot of callus that had to be debrided around the ulcer which made it a little bit bigger. Patient was also encouraged to eat Dannon yogurt. - Physical Exam Vital Signs Temp Pulse Resp BP 97.5 F L 72 18 111/65 10/17/17 10:37 10/17/17 10:37 10/17/17 10:37 10/17/17 10:37 General: Oriented x3, Cooperative, Well developed HEENT: Atraumatic, PERRLA Oral: Moist Mucosa Neck: Supple, No JVD Lungs: Clear to auscultation, Normal air movement Cardiovascular: Regular rate, Regular Rhythm Abdomen: Bowel Sounds Present, Soft, Non Tender, No Hepato-splenomegaly Extremities: No clubbing, No edema Skin: Ulcer/ Wound - Right heel ulcer Wound Measurements and Assessment WC - Nurse 1 - General Ulcer Measurement Start: 10/03/17 09:29 Freq: Status: Active Protocol: Activity Type Activity Date Activity User E-Sign Co-Sign Detail Recorded Client Recorded Date Recorded By Document 10/17/17 10:37 [id number] 10/17/17 10:42 10/17/17 10:37 Wound Center Nurse 1 [Ulcer Assessment] #3 RIGHT HEEL -Combined with other wound No -Current Size (cm) - Length 0.9 -Current Size (cm) - Width 1.4 -Current Size (cm) - Depth 0.3 -Total Square Cm 1.26 -Photo Taken No -Epithelialization None Present -Tunneling No -Undermining/Tunneling No -Circular Undermining No -Classification - Thickness Full Thickness without Exposed Support Structure -Exudate Amt Small (1-33%) -Exudate Type Serosanguineous -Wound Margin Distinct, Outline Attached -Granulation Amt Large (67-100%) -Granulation Quality [place] -Slough/Fibrin Yes -Necrosis Amt Small (1-33%) -Necrotic Tissue Type Adherent Slough -Structure Exposed Fascia Fat Layer Exposed -Texture (Loly-wound Skin Appearance) Assessed Callus -Moisture (Loly-wound Skin Appearance No Abnormality ) -Color (Loly-wound Skin Appearance) No Abnormality Assessed -Temperature (Loly-wound Skin No Abnormality Appearance) (Pt Warm) -Tenderness on Palpation (Loly-wound No Skin Appearance) -Ulcer Cleansing Rinsed/ Irrigated with Saline -Foul Odor after Cleansing No -Anesthetic Used 5% Lidocaine Gel [Edema Assessment] -Lower Limb Edema Present Yes -Right Calf (cm) 39.0 -Right Ankle (cm) 23.5 WC - Nurse 2 - General Ulcer CM Notes Start: 10/03/17 09:29 Freq: Status: Active Protocol: Activity Type Activity Date Activity User E-Sign Co-Sign Detail Recorded Client Recorded Date Recorded By Document 10/17/17 11:28 [id number] 10/17/17 11:30 10/17/17 11:28 Wound Center Nurse 2 [Procedure/Treatment] #3 RIGHT HEEL -Time 11:28 -Correct Patient Yes -Correct Side, Site, Position Yes -Correct Procedure Yes -Procedure Performed Yes -Type of Procedure Debridement -Clinical Debridement Subcutaneous -Post Debridement Size (cm) - Length 1.0 -Post Debridement Size (cm) - Width 1.1 -Post Debridement Size (cm) - Depth 0.3 -Total Square Cm 1.10 -Wound/Ulcer Outcome Not Healed -Ulcer Cleansing Rinsed/ Irrigated with Saline -Foul Odor after Cleansing No -Bioengineered Tissue Yes -Type of bioengineered Tissue EPIFIX -Expiration Date 07/29/22 -Product Lot Number [id number] -Percent Used 100 -Saline Lot Number [id number] -Topical Lidocaine (%) 4 -Lidocaine (ml) 5 -Bleeding Controlled with NA [See Physician Procedure note for Specifics] Pain Scale: 0-10 Numeric [Pain] -Is Patient Pain Free? Yes Musculoskeletal: No Tenderness to Palpation of Joints or Extremities Lymphatic: No Cervical, Supraclavicular, or Inguinal Adenopathy Neurological: Cranial nerves II-XII grossly intact, Neuro grossly intact Psych/Mental Status: Normal Affect, Appropriate Debridement Note Post-Debridement Measurements/Treatment WC - Nurse 2 - General Ulcer CM Notes Start: 10/03/17 09:29 Freq: Status: Active Protocol: Activity Type Activity Date Activity User E-Sign Co-Sign Detail Recorded Client Recorded Date Recorded By Document 10/03/17 11:12 [id number] 10/03/17 11:22 Document 10/10/17 11:02 [id number] 10/10/17 11:05 Document 10/17/17 11:28 [id number] 10/17/17 11:30 10/03/17 10/10/17 10/17/17 11:12 11:02 11:28 Wound Center Nurse 2 #5 LEFT PLANTAR GREAT TOE (Base) -Time 11:12 11:03 -Correct Patient Yes Yes -Correct Side, Site, Position Yes Yes -Correct Procedure Yes Yes -Procedure Performed Yes No -Type of Procedure Debridement -Clinical Debridement Subcutaneous -Post Debridement Size (cm) - Length 0.3 0 -Post Debridement Size (cm) - Width 0.3 0 -Post Debridement Size (cm) - Depth 0.1 0 -Total Square Cm 0.09 0 -Wound/Ulcer Outcome Not Healed Healed- Epithelialized -Ulcer Cleansing Rinsed/ Irrigated with Saline -Foul Odor after Cleansing No -Bioengineered Tissue Yes -Type of bioengineered Tissue EPIFIX -Expiration Date 06/29/22 -Product Lot Number [id number] -Percent Used 100 -Saline Lot Number [id number] -Topical Lidocaine (%) 4 -Lidocaine (ml) 5 -Bleeding Controlled with NA -Treatment Response Procedure Tolerated Well #3 RIGHT HEEL -Time 11:13 11:03 11:28 -Correct Patient Yes Yes Yes -Correct Side, Site, Position Yes Yes Yes -Correct Procedure Yes Yes Yes -Procedure Performed Yes Yes Yes -Type of Procedure Debridement Debridement Debridement -Clinical Debridement Subcutaneous Subcutaneous Subcutaneous -Post Debridement Size (cm) - Length 1.0 1.0 1.0 -Post Debridement Size (cm) - Width 1.3 1.4 1.1 -Post Debridement Size (cm) - Depth 0.3 0.3 0.3 -Total Square Cm 1.30 1.40 1.10 -Wound/Ulcer Outcome Not Healed Not Healed Not Healed -Ulcer Cleansing Rinsed/ Rinsed/ Rinsed/ Irrigated with Irrigated with Irrigated with Saline Saline Saline -Foul Odor after Cleansing No No No -Bioengineered Tissue Yes Yes Yes -Type of bioengineered Tissue EPIFIX EPIFIX EPIFIX -Expiration Date 06/29/22 07/29/22 07/29/22 -Product Lot Number [id number] -Percent Used 100 100 100 -Saline Lot Number [id number] -Topical Lidocaine (%) 4 4 4 -Lidocaine (ml) 5 5 5 -Bleeding Controlled with NA NA NA -Treatment Response Procedure Procedure Tolerated Well Tolerated Well Pain Scale: 0-10 Numeric Is Patient Pain Free? Yes Yes Yes Wound debrided: Right heel ulcer Type of Debridement: Excisional debridement Anesthesia Used: 5% Lidocaine Gel Depth: Down to and including healthy tissue, in the subcutaneous layer Percentage of wound debrided: 100 Instrument Used: 5mm curette Tissue Removed: Callus and fibrin Severity: Limited To Skin Breakdown Amount of bleeding with debridement: None Bleeding Controlled with: Pressure Patient tolerated procedure well Assessment/Plan Active Problems (Last Updated 08/19/17 @ 09:45 by aPtricia Hanks) Decubitus ulcer of right heel, stage 3 (Acute) Hypertension (Chronic) Tobacco abuse counseling (Acute) History of diabetes mellitus, type II (Chronic) Assessment: Type II diabetic. Tobacco abuser. DFU Scott 2 to right foot heel. First metatarsal head ulcer left foot resolved Plan: Applied #5 epi fix between the 1 heel ulcers covered with hydrogel Adaptic Steri-Strips and protective padded gauze dressings. Offload as much as possible follow-up with you and keep bionics for new shoe. Also start Diflucan 100 mg 1 p.o. daily for 30 days. Follow up in 1 week
--- NOTE | 2017-10-24 12:07 | PCM.WC.PN ---
(1) Decubitus ulcer of right heel, stage 3 Status: Acute Current Visit: Yes Code(s): L89.613 - Pressure ulcer of right heel, stage 3 (2) Tobacco abuse counseling Status: Acute Current Visit: Yes Code(s): Z71.6 - Tobacco abuse counseling (3) History of diabetes mellitus, type II Status: Chronic Current Visit: Yes Code(s): Z86.39 - Personal history of other endocrine, nutritional and metabolic disease (4) Hypertension Status: Chronic Current Visit: Yes Code(s): I10 - Essential (primary) hypertension (5) Non-pressure chronic ulcer of other part of right foot limited to breakdown of skin Status: Chronic Current Visit: No Code(s): L97.511 - Non-pressure chronic ulcer of other part of right foot limited to breakdown of skin Type of Wound Date of Service: 10/24/17 Chief Complaint: R foot DFU History of Wound: 57 year old woman with r DFU heel willy 1. Hx of many feet ulcers that heal well Progress of Wound: The right heel ulcer is open but filling in with new tissue. Epi fix #6 applied to the ulcer base. 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 She has finished taking her Levaquin antibiotic . She has refused anything like a special shoe or cast or anything because of her balance and money. She still refuses to stop smoking. The epi fix is medically necessary because of poor noncompliance with usual treatment patterns has healed ulcer on her metatarsal head and her heel is improving.Patient is falling more and more because she states she has low blood pressure and cannot get in to see her regular doctor. Again a lot of callus that had to be debrided around the ulcer which made it a little bit bigger. Patient was also encouraged to eat Dannon yogurt. - Physical Exam Vital Signs Temp Pulse Resp BP 97.5 F L 72 18 111/65 10/17/17 10:37 10/17/17 10:37 10/17/17 10:37 10/17/17 10:37 General: Oriented x3, Cooperative, Well developed HEENT: Atraumatic, PERRLA Oral: Moist Mucosa Neck: Supple, No JVD Lungs: Clear to auscultation, Normal air movement Cardiovascular: Regular rate, Regular Rhythm Abdomen: Bowel Sounds Present, Soft, Non Tender, No Hepato-splenomegaly Extremities: No clubbing, No edema Skin: Ulcer/ Wound - Right heel ulcer Wound Measurements and Assessment - Nurse 2 - General Ulcer CM Notes Start: 10/03/17 09:29 Freq: Status: Active Protocol: Activity Type Activity Date Activity User E-Sign Co-Sign Detail Recorded Client Recorded Date Recorded By Document 10/24/17 10:54 [id number] 10/24/17 11:01 10/24/17 10:54 Wound Center Nurse 2 [Procedure/Treatment] #3 RIGHT HEEL -Time 10:54 -Correct Patient Yes -Correct Side, Site, Position Yes -Correct Procedure Yes -Procedure Performed Yes -Type of Procedure Debridement -Clinical Debridement Subcutaneous -Post Debridement Size (cm) - Length 0.9 -Post Debridement Size (cm) - Width 1.0 -Post Debridement Size (cm) - Depth 0.3 -Total Square Cm 0.90 -Wound/Ulcer Outcome Not Healed -Ulcer Cleansing Rinsed/ Irrigated with Saline -Foul Odor after Cleansing No -Bioengineered Tissue Yes -Type of bioengineered Tissue EPIFIX -Expiration Date 06/29/22 -Product Lot Number [id number] -Percent Used 100 -Saline Lot Number [id number] -Topical Lidocaine (%) 4 -Lidocaine (ml) 5 -Bleeding Controlled with NA -Treatment Response Procedure Tolerated Well [See Physician Procedure note for Specifics] Musculoskeletal: No Tenderness to Palpation of Joints or Extremities Lymphatic: No Cervical, Supraclavicular, or Inguinal Adenopathy Neurological: Cranial nerves II-XII grossly intact, Neuro grossly intact Psych/Mental Status: Normal Affect, Appropriate, Alert and oriented to time, place, person, mood and affect Debridement Note Post-Debridement Measurements/Treatment - Nurse 2 - General Ulcer CM Notes Start: 10/03/17 09:29 Freq: Status: Active Protocol: Activity Type Activity Date Activity User E-Sign Co-Sign Detail Recorded Client Recorded Date Recorded By Document 10/03/17 11:12 [id number] 10/03/17 11:22 JS Document 10/10/17 11:02 [id number] 10/10/17 11:05 JS Document 10/17/17 11:28 JS [id number] 10/17/17 11:30 JS Document 10/24/17 10:54 [id number] 10/24/17 11:01 JS 10/03/17 10/10/17 10/17/17 11:12 11:02 11:28 Wound Center Nurse 2 #5 LEFT PLANTAR GREAT TOE (Base) -Time 11:12 11:03 -Correct Patient Yes Yes -Correct Side, Site, Position Yes Yes -Correct Procedure Yes Yes -Procedure Performed Yes No -Type of Procedure Debridement -Clinical Debridement Subcutaneous -Post Debridement Size (cm) - Length 0.3 0 -Post Debridement Size (cm) - Width 0.3 0 -Post Debridement Size (cm) - Depth 0.1 0 -Total Square Cm 0.09 0 -Wound/Ulcer Outcome Not Healed Healed- Epithelialized -Ulcer Cleansing Rinsed/ Irrigated with Saline -Foul Odor after Cleansing No -Bioengineered Tissue Yes -Type of bioengineered Tissue EPIFIX -Expiration Date 06/29/22 -Product Lot Number [id number] -Percent Used 100 -Saline Lot Number [id number] -Topical Lidocaine (%) 4 -Lidocaine (ml) 5 -Bleeding Controlled with NA -Treatment Response Procedure Tolerated Well #3 RIGHT HEEL -Time 11:13 11:03 11:28 -Correct Patient Yes Yes Yes -Correct Side, Site, Position Yes Yes Yes -Correct Procedure Yes Yes Yes -Procedure Performed Yes Yes Yes -Type of Procedure Debridement Debridement Debridement -Clinical Debridement Subcutaneous Subcutaneous Subcutaneous -Post Debridement Size (cm) - Length 1.0 1.0 1.0 -Post Debridement Size (cm) - Width 1.3 1.4 1.1 -Post Debridement Size (cm) - Depth 0.3 0.3 0.3 -Total Square Cm 1.30 1.40 1.10 -Wound/Ulcer Outcome Not Healed Not Healed Not Healed -Ulcer Cleansing Rinsed/ Rinsed/ Rinsed/ Irrigated with Irrigated with Irrigated with Saline Saline Saline -Foul Odor after Cleansing No No No -Bioengineered Tissue Yes Yes Yes -Type of bioengineered Tissue EPIFIX EPIFIX EPIFIX -Expiration Date 06/29/22 07/29/22 07/29/22 -Product Lot Number [id number] -Percent Used 100 100 100 -Saline Lot Number [id number] [id number] -Topical Lidocaine (%) 4 4 4 -Lidocaine (ml) 5 5 5 -Bleeding Controlled with NA NA NA -Treatment Response Procedure Procedure Tolerated Well Tolerated Well Pain Scale: 0-10 Numeric Is Patient Pain Free? Yes Yes Yes 10/24/17 10:54 Wound Center Nurse 2 #5 LEFT PLANTAR GREAT TOE (Base) -Time -Correct Patient -Correct Side, Site, Position -Correct Procedure -Procedure Performed -Type of Procedure -Clinical Debridement -Post Debridement Size (cm) - Length -Post Debridement Size (cm) - Width -Post Debridement Size (cm) - Depth -Total Square Cm -Wound/Ulcer Outcome -Ulcer Cleansing -Foul Odor after Cleansing -Bioengineered Tissue -Type of bioengineered Tissue -Expiration Date -Product Lot Number -Percent Used -Saline Lot Number -Topical Lidocaine (%) -Lidocaine (ml) -Bleeding Controlled with -Treatment Response #3 RIGHT HEEL -Time 10:54 -Correct Patient Yes -Correct Side, Site, Position Yes -Correct Procedure Yes -Procedure Performed Yes -Type of Procedure Debridement -Clinical Debridement Subcutaneous -Post Debridement Size (cm) - Length 0.9 -Post Debridement Size (cm) - Width 1.0 -Post Debridement Size (cm) - Depth 0.3 -Total Square Cm 0.90 -Wound/Ulcer Outcome Not Healed -Ulcer Cleansing Rinsed/ Irrigated with Saline -Foul Odor after Cleansing No -Bioengineered Tissue Yes -Type of bioengineered Tissue EPIFIX -Expiration Date 06/29/22 -Product Lot Number [id number] -Percent Used 100 -Saline Lot Number [id number] -Topical Lidocaine (%) 4 -Lidocaine (ml) 5 -Bleeding Controlled with NA -Treatment Response Procedure Tolerated Well Pain Scale: 0-10 Numeric Is Patient Pain Free? Wound debrided: Right heel ulcer Wound Grade/Stage: Stage III Type of Debridement: Excisional debridement Depth: Down to and including healthy tissue, in the subcutaneous layer Instrument Used: 7mm curette Tissue Removed: Callus and fibrin Severity: Limited To Skin Breakdown Amount of bleeding with debridement: Mild Bleeding Controlled with: Compression and gauze Patient tolerated procedure well Assessment/Plan Active Problems (Last Updated 08/19/17 @ 09:45 by Patricia Hanks) Decubitus ulcer of right heel, stage 3 (Acute) Hypertension (Chronic) Tobacco abuse counseling (Acute) History of diabetes mellitus, type II (Chronic) Assessment: Type II diabetic. Tobacco abuser. DFU Scott 2 to right foot heel. First metatarsal head ulcer left foot resolved Plan: Applied #6 epi fix between the 1 heel ulcers covered with hydrogel Adaptic Steri-Strips and protective padded gauze dressings. Offload as much as possible follow-up with you and keep bionics for new shoe. Follow up in 1 week
--- NOTE | 2017-10-24 12:10 | PN.PCM_ITS ---
(1) Decubitus ulcer of right heel, stage 3 Status: Acute Current Visit: Yes Code(s): L89.613 - Pressure ulcer of right heel, stage 3 (2) Tobacco abuse counseling Status: Acute Current Visit: Yes Code(s): Z71.6 - Tobacco abuse counseling (3) History of diabetes mellitus, type II Status: Chronic Current Visit: Yes Code(s): Z86.39 - Personal history of other endocrine, nutritional and metabolic disease (4) Hypertension Status: Chronic Current Visit: Yes Code(s): I10 - Essential (primary) hypertension (5) Non-pressure chronic ulcer of other part of right foot limited to breakdown of skin Status: Chronic Current Visit: No Code(s): L97.511 - Non-pressure chronic ulcer of other part of right foot limited to breakdown of skin Type of Wound Date of Service: 10/24/17 Chief Complaint: R foot DFU History of Wound: 57 year old woman with r DFU heel willy 1. Hx of many feet ulcers that heal well Progress of Wound: The right heel ulcer is open but filling in with new tissue. Epi fix #6 applied to the ulcer base. 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 She has finished taking her Levaquin antibiotic . She has refused anything like a special shoe or cast or anything because of her balance and money. She still refuses to stop smoking. The epi fix is medically necessary because of poor noncompliance with usual treatment patterns has healed ulcer on her metatarsal head and her heel is improving.Patient is falling more and more because she states she has low blood pressure and cannot get in to see her regular doctor. Again a lot of callus that had to be debrided around the ulcer which made it a little bit bigger. Patient was also encouraged to eat Dannon yogurt. - Physical Exam Vital Signs Temp Pulse Resp BP 97.5 F L 72 18 111/65 10/17/17 10:37 10/17/17 10:37 10/17/17 10:37 10/17/17 10:37 General: Oriented x3, Cooperative, Well developed HEENT: Atraumatic, PERRLA Oral: Moist Mucosa Neck: Supple, No JVD Lungs: Clear to auscultation, Normal air movement Cardiovascular: Regular rate, Regular Rhythm Abdomen: Bowel Sounds Present, Soft, Non Tender, No Hepato-splenomegaly Extremities: No clubbing, No edema Skin: Ulcer/ Wound - Right heel ulcer Wound Measurements and Assessment - Nurse 2 - General Ulcer CM Notes Start: 10/03/17 09:29 Freq: Status: Active Protocol: Activity Type Activity Date Activity User E-Sign Co-Sign Detail Recorded Client Recorded Date Recorded By Document 10/24/17 10:54 [id number] 10/24/17 11:01 10/24/17 10:54 Wound Center Nurse 2 [Procedure/Treatment] #3 RIGHT HEEL -Time 10:54 -Correct Patient Yes -Correct Side, Site, Position Yes -Correct Procedure Yes -Procedure Performed Yes -Type of Procedure Debridement -Clinical Debridement Subcutaneous -Post Debridement Size (cm) - Length 0.9 -Post Debridement Size (cm) - Width 1.0 -Post Debridement Size (cm) - Depth 0.3 -Total Square Cm 0.90 -Wound/Ulcer Outcome Not Healed -Ulcer Cleansing Rinsed/ Irrigated with Saline -Foul Odor after Cleansing No -Bioengineered Tissue Yes -Type of bioengineered Tissue EPIFIX -Expiration Date 06/29/22 -Product Lot Number [id number] -Percent Used 100 -Saline Lot Number [id number] -Topical Lidocaine (%) 4 -Lidocaine (ml) 5 -Bleeding Controlled with NA -Treatment Response Procedure Tolerated Well [See Physician Procedure note for Specifics] Musculoskeletal: No Tenderness to Palpation of Joints or Extremities Lymphatic: No Cervical, Supraclavicular, or Inguinal Adenopathy Neurological: Cranial nerves II-XII grossly intact, Neuro grossly intact Psych/Mental Status: Normal Affect, Appropriate, Alert and oriented to time, place, person, mood and affect Debridement Note Post-Debridement Measurements/Treatment - Nurse 2 - General Ulcer CM Notes Start: 10/03/17 09:29 Freq: Status: Active Protocol: Activity Type Activity Date Activity User E-Sign Co-Sign Detail Recorded Client Recorded Date Recorded By Document 10/03/17 11:12 [id number] 10/03/17 11:22 JS Document 10/10/17 11:02 [id number] 10/10/17 11:05 JS Document 10/17/17 11:28 JS [id number] 10/17/17 11:30 JS Document 10/24/17 10:54 [id number] 10/24/17 11:01 JS 10/03/17 10/10/17 10/17/17 11:12 11:02 11:28 Wound Center Nurse 2 #5 LEFT PLANTAR GREAT TOE (Base) -Time 11:12 11:03 -Correct Patient Yes Yes -Correct Side, Site, Position Yes Yes -Correct Procedure Yes Yes -Procedure Performed Yes No -Type of Procedure Debridement -Clinical Debridement Subcutaneous -Post Debridement Size (cm) - Length 0.3 0 -Post Debridement Size (cm) - Width 0.3 0 -Post Debridement Size (cm) - Depth 0.1 0 -Total Square Cm 0.09 0 -Wound/Ulcer Outcome Not Healed Healed- Epithelialized -Ulcer Cleansing Rinsed/ Irrigated with Saline -Foul Odor after Cleansing No -Bioengineered Tissue Yes -Type of bioengineered Tissue EPIFIX -Expiration Date 06/29/22 -Product Lot Number [id number] -Percent Used 100 -Saline Lot Number [id number] -Topical Lidocaine (%) 4 -Lidocaine (ml) 5 -Bleeding Controlled with NA -Treatment Response Procedure Tolerated Well #3 RIGHT HEEL -Time 11:13 11:03 11:28 -Correct Patient Yes Yes Yes -Correct Side, Site, Position Yes Yes Yes -Correct Procedure Yes Yes Yes -Procedure Performed Yes Yes Yes -Type of Procedure Debridement Debridement Debridement -Clinical Debridement Subcutaneous Subcutaneous Subcutaneous -Post Debridement Size (cm) - Length 1.0 1.0 1.0 -Post Debridement Size (cm) - Width 1.3 1.4 1.1 -Post Debridement Size (cm) - Depth 0.3 0.3 0.3 -Total Square Cm 1.30 1.40 1.10 -Wound/Ulcer Outcome Not Healed Not Healed Not Healed -Ulcer Cleansing Rinsed/ Rinsed/ Rinsed/ Irrigated with Irrigated with Irrigated with Saline Saline Saline -Foul Odor after Cleansing No No No -Bioengineered Tissue Yes Yes Yes -Type of bioengineered Tissue EPIFIX EPIFIX EPIFIX -Expiration Date 06/29/22 07/29/22 07/29/22 -Product Lot Number [id number] -Percent Used 100 100 100 -Saline Lot Number [id number] HYDROG [id number] -Topical Lidocaine (%) 4 4 4 -Lidocaine (ml) 5 5 5 -Bleeding Controlled with NA NA NA -Treatment Response Procedure Procedure Tolerated Well Tolerated Well Pain Scale: 0-10 Numeric Is Patient Pain Free? Yes Yes Yes 10/24/17 10:54 Wound Center Nurse 2 #5 LEFT PLANTAR GREAT TOE (Base) -Time -Correct Patient -Correct Side, Site, Position -Correct Procedure -Procedure Performed -Type of Procedure -Clinical Debridement -Post Debridement Size (cm) - Length -Post Debridement Size (cm) - Width -Post Debridement Size (cm) - Depth -Total Square Cm -Wound/Ulcer Outcome -Ulcer Cleansing -Foul Odor after Cleansing -Bioengineered Tissue -Type of bioengineered Tissue -Expiration Date -Product Lot Number -Percent Used -Saline Lot Number -Topical Lidocaine (%) -Lidocaine (ml) -Bleeding Controlled with -Treatment Response #3 RIGHT HEEL -Time 10:54 -Correct Patient Yes -Correct Side, Site, Position Yes -Correct Procedure Yes -Procedure Performed Yes -Type of Procedure Debridement -Clinical Debridement Subcutaneous -Post Debridement Size (cm) - Length 0.9 -Post Debridement Size (cm) - Width 1.0 -Post Debridement Size (cm) - Depth 0.3 -Total Square Cm 0.90 -Wound/Ulcer Outcome Not Healed -Ulcer Cleansing Rinsed/ Irrigated with Saline -Foul Odor after Cleansing No -Bioengineered Tissue Yes -Type of bioengineered Tissue EPIFIX -Expiration Date 06/29/22 -Product Lot Number [id number] -Percent Used 100 -Saline Lot Number [id number] -Topical Lidocaine (%) 4 -Lidocaine (ml) 5 -Bleeding Controlled with NA -Treatment Response Procedure Tolerated Well Pain Scale: 0-10 Numeric Is Patient Pain Free? Wound debrided: Right heel ulcer Wound Grade/Stage: Stage III Type of Debridement: Excisional debridement Depth: Down to and including healthy tissue, in the subcutaneous layer Instrument Used: 7mm curette Tissue Removed: Callus and fibrin Severity: Limited To Skin Breakdown Amount of bleeding with debridement: Mild Bleeding Controlled with: Compression and gauze Patient tolerated procedure well Assessment/Plan Active Problems (Last Updated 08/19/17 @ 09:45 by Patricia Hanks) Decubitus ulcer of right heel, stage 3 (Acute) Hypertension (Chronic) Tobacco abuse counseling (Acute) History of diabetes mellitus, type II (Chronic) Assessment: Type II diabetic. Tobacco abuser. DFU Scott 2 to right foot heel. First metatarsal head ulcer left foot resolved Plan: Applied #6 epi fix between the 1 heel ulcers covered with hydrogel Adaptic Steri-Strips and protective padded gauze dressings. Offload as much as possible follow-up with you and keep bionics for new shoe. Follow up in 1 week
== END 2017-10-28 23:59 ==
LOC: WC 10:00
PROVIDERS: Family Provider Internal Medicine; PCP Internal Medicine; Visit Provider Nurse Practitioner
DX: E11.621 Type 2 diabetes mellitus with foot ulcer (principal); L89.613 Pressure ulcer of right heel, stage 3; I10 Essential (primary) hypertension; L97.511 Non-pressure chronic ulcer of other part of right foot limited to breakdown of skin; Z72.0 Tobacco use; Z91.19 Patient's noncompliance with other medical treatment and regimen
CPT/HCPCS: 11042; 15275; Q4131

== ENCOUNTER 2017-10-31 09:00 | Outpatient (RCR) | payer MEDICARE, MEDICAID, SELFPAY ==
[2017-10-29 00:44] VITALS: BP 111/65; PULSE 72; RESP 18; TEMP 36.4
[2017-10-31 09:21] VITALS: BP 122/71; PULSE 76; RESP 18; TEMP 36.4
--- NOTE | 2017-10-31 09:56 | PCM.WC.PN ---
(1) Decubitus ulcer of right heel, stage 3 Status: Acute Current Visit: No Code(s): L89.613 - Pressure ulcer of right heel, stage 3 (2) Diabetic foot ulcer associated with type 2 diabetes mellitus Status: Acute Current Visit: No Code(s): E11.621 - Type 2 diabetes mellitus with foot ulcer; L97.509 - Non-pressure chronic ulcer of other part of unspecified foot with unspecified severity (3) Non-pressure chronic ulcer of other part of right foot with fat layer exposed Status: Acute Current Visit: No Code(s): L97.512 - Non-pressure chronic ulcer of other part of right foot with fat layer exposed (4) Blister (nonthermal), right great toe, initial encounter Status: Acute Current Visit: Yes Code(s): S90.421A - Blister (nonthermal), right great toe, initial encounter Type of Wound Date of Service: 10/31/17 Chief Complaint: R foot DFU History of Wound: 57 year old woman with r DFU heel willy 1. Hx of many feet ulcers that heal well Progress of Wound: The right heel ulcer is open but filling in with new tissue. Epi fix #7 applied to the ulcer base. Patient developed a blood blister on right great toe. Removed skin and fluid has a big contusion on the lateral inner aspect of the right toe Heel is getting smaller despite no offloading or anything on it. 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 She has finished taking her Levaquin antibiotic . She has refused anything like a special shoe or cast or anything because of her balance and money. She still refuses to stop smoking. The epi fix is medically necessary because of poor noncompliance with usual treatment patterns has healed ulcer on her metatarsal head and her heel is improving.Patient is falling more and more because she states she has low blood pressure and cannot get in to see her regular doctor. Again a lot of callus that had to be debrided around the ulcer which made it a little bit bigger. Patient was also encouraged to eat Dannon yogurt. - Physical Exam Vital Signs Temp Pulse Resp BP 97.5 F L 76 18 122/71 H 10/31/17 09:21 10/31/17 09:21 10/31/17 09:21 10/31/17 09:21 General: Oriented x3, Cooperative, Well developed HEENT: Atraumatic, PERRLA Oral: Moist Mucosa Neck: Supple, No JVD Lungs: Clear to auscultation, Normal air movement Cardiovascular: Regular rate, Regular Rhythm Abdomen: Bowel Sounds Present, Soft, Non Tender, No Hepato-splenomegaly Extremities: No clubbing, No edema Skin: Ulcer/ Wound - Right heel and right great toe blister Wound Measurements and Assessment WC - Nurse 1 - General Ulcer Measurement Start: 10/31/17 09:13 Freq: Status: Active Protocol: Activity Type Activity Date Activity User E-Sign Co-Sign Detail Recorded Client Recorded Date Recorded By Document 10/31/17 09:14 [id number] 10/31/17 09:19 10/31/17 09:14 Wound Center Nurse 1 [Ulcer Assessment] #6 RIGHT GREAT TOE -Combined with other wound No -Current Size (cm) - Length 0.1 -Current Size (cm) - Width 0.1 -Current Size (cm) - Depth 0.1 -Total Square Cm 0.01 -Date of Last Picture (Recall this 10/31/17 field) -Photo Taken Yes -Epithelialization None Present -Tunneling No -Undermining/Tunneling No -Circular Undermining No -Exudate Amt None Present (0 %) -Wound Margin Thickened -Slough/Fibrin Yes -Necrosis Amt None Present (0 %) -Necrotic Tissue Type Adherent Slough -Texture (Loly-wound Skin Appearance) Callus -Moisture (Loly-wound Skin Appearance No Abnormality ) Assessed -Color (Loly-wound Skin Appearance) No Abnormality Assessed -Temperature (Loly-wound Skin No Abnormality Appearance) (Pt Warm) -Tenderness on Palpation (Loly-wound No Skin Appearance) -Ulcer Cleansing Rinsed/ Irrigated with Saline -Foul Odor after Cleansing No -Anesthetic Used 4% Lidocaine Solution #3 RIGHT HEEL -Combined with other wound No -Current Size (cm) - Length 0.7 -Current Size (cm) - Width 0.9 -Current Size (cm) - Depth 0.2 -Total Square Cm 0.63 -Date of Last Picture (Recall this 10/31/17 field) -Photo Taken Yes -Epithelialization None Present -Tunneling No -Undermining/Tunneling No -Circular Undermining No -Exudate Amt Small (1-33%) -Exudate Type Serosanguineous -Wound Margin Distinct, Outline Attached -Granulation Amt Small (1-33%) -Granulation Quality [place] Red -Slough/Fibrin Yes -Necrosis Amt None Present (0 %) -Necrotic Tissue Type Adherent Slough -Structure Exposed None/Limited to Skin Breakdown -Texture (Loly-wound Skin Appearance) No Abnormality Assessed -Moisture (Loly-wound Skin Appearance No Abnormality ) Assessed -Color (Loly-wound Skin Appearance) No Abnormality Assessed -Temperature (Loly-wound Skin No Abnormality Appearance) (Pt Warm) -Tenderness on Palpation (Loly-wound No Skin Appearance) -Ulcer Cleansing Rinsed/ Irrigated with Saline -Foul Odor after Cleansing No -Anesthetic Used 4% Lidocaine Solution [Edema Assessment] -Lower Limb Edema Present No -Right Calf (cm) 38.5 -Right Ankle (cm) 29.9 -Left Calf (cm) 39.2 -Left Ankle (cm) 29.2 WC - Nurse 2 - General Ulcer CM Notes Start: 10/31/17 09:13 Freq: Status: Active Protocol: Activity Type Activity Date Activity User E-Sign Co-Sign Detail Recorded Client Recorded Date Recorded By Document 10/31/17 09:27 MW [id number] 10/31/17 09:44 MW 10/31/17 09:27 Wound Center Nurse 2 [Procedure/Treatment] #6 RIGHT GREAT TOE -Time 09:29 -Correct Patient Yes -Correct Side, Site, Position Yes -Correct Procedure Yes -Procedure Performed Yes -Type of Procedure Debridement -Clinical Debridement Subcutaneous -Post Debridement Size (cm) - Length 1.0 -Post Debridement Size (cm) - Width 3.0 -Post Debridement Size (cm) - Depth 0.1 -Total Square Cm 3.00 -Wound/Ulcer Outcome Not Healed -Ulcer Cleansing Rinsed/ Irrigated with Saline -Foul Odor after Cleansing No -Bioengineered Tissue No -Bleeding Controlled with Pressure -Treatment Response Procedure Tolerated Well #3 RIGHT HEEL -Time 09:27 -Correct Patient Yes -Correct Side, Site, Position Yes -Correct Procedure Yes -Procedure Performed Yes -Type of Procedure Debridement -Clinical Debridement Subcutaneous -Post Debridement Size (cm) - Length 0.9 -Post Debridement Size (cm) - Width 0.9 -Post Debridement Size (cm) - Depth 0.2 -Total Square Cm 0.81 -Wound/Ulcer Outcome Not Healed -Ulcer Cleansing Rinsed/ Irrigated with Saline -Foul Odor after Cleansing No -Bioengineered Tissue Yes -Type of bioengineered Tissue EPIFIX -Expiration Date 07/29/22 -Product Lot Number [id number] -Percent Used 100 -Saline Lot Number [id number] -Bleeding Controlled with Pressure -Treatment Response Procedure Tolerated Well [See Physician Procedure note for Specifics] Pain Scale: 0-10 Numeric [Pain] -Is Patient Pain Free? Yes Musculoskeletal: No Tenderness to Palpation of Joints or Extremities Lymphatic: No Cervical, Supraclavicular, or Inguinal Adenopathy Neurological: Cranial nerves II-XII grossly intact, Neuro grossly intact Psych/Mental Status: Normal Affect, Appropriate Debridement Note Post-Debridement Measurements/Treatment WC - Nurse 2 - General Ulcer CM Notes Start: 10/31/17 09:13 Freq: Status: Active Protocol: Activity Type Activity Date Activity User E-Sign Co-Sign Detail Recorded Client Recorded Date Recorded By Document 10/31/17 09:27 MW [id number] 10/31/17 09:44 MW 10/31/17 09:27 Wound Center Nurse 2 #6 RIGHT GREAT TOE -Time 09:29 -Correct Patient Yes -Correct Side, Site, Position Yes -Correct Procedure Yes -Procedure Performed Yes -Type of Procedure Debridement -Clinical Debridement Subcutaneous -Post Debridement Size (cm) - Length 1.0 -Post Debridement Size (cm) - Width 3.0 -Post Debridement Size (cm) - Depth 0.1 -Total Square Cm 3.00 -Wound/Ulcer Outcome Not Healed -Ulcer Cleansing Rinsed/ Irrigated with Saline -Foul Odor after Cleansing No -Bioengineered Tissue No -Bleeding Controlled with Pressure -Treatment Response Procedure Tolerated Well #3 RIGHT HEEL -Time 09:27 -Correct Patient Yes -Correct Side, Site, Position Yes -Correct Procedure Yes -Procedure Performed Yes -Type of Procedure Debridement -Clinical Debridement Subcutaneous -Post Debridement Size (cm) - Length 0.9 -Post Debridement Size (cm) - Width 0.9 -Post Debridement Size (cm) - Depth 0.2 -Total Square Cm 0.81 -Wound/Ulcer Outcome Not Healed -Ulcer Cleansing Rinsed/ Irrigated with Saline -Foul Odor after Cleansing No -Bioengineered Tissue Yes -Type of bioengineered Tissue EPIFIX -Expiration Date 07/29/22 -Product Lot Number [id number] -Percent Used 100 -Saline Lot Number [id number] -Bleeding Controlled with Pressure -Treatment Response Procedure Tolerated Well Pain Scale: 0-10 Numeric Is Patient Pain Free? Yes Wound debrided: Right heel Type of Debridement: Excisional debridement Anesthesia Used: 5% Lidocaine Gel Depth: Down to and including healthy tissue, in the subcutaneous layer Percentage of wound debrided: 100 Instrument Used: 5mm curette Tissue Removed: Fibrin Severity: Limited To Skin Breakdown Amount of bleeding with debridement: Mild - Additional Wound Wound debrided: Right great toe Type of Debridement: Excisional debridement Anesthesia Used: 5% Lidocaine Gel Depth: Down to and including healthy tissue Percentage of wound debrided: 100 Instrument Used: 5mm curette Tissue Removed: Fibrin Amount of bleeding with debridement: None Bleeding Controlled with: Compression and gauze Patient tolerated procedure: Patient tolerated procedure well Assessment/Plan Active Problems (Last Updated 08/19/17 @ 09:45 by Patricia Hanks) Blister (nonthermal), right great toe, initial encounter (Acute) Assessment: Type II diabetic. Tobacco abuser. DFU Scott 2 to right foot heel. First metatarsal head ulcer left foot resolved. Blister right great toe Plan: Applied #7 epi fix between the right heel ulcers covered with hydrogel [place] Steri-Strips and protective padded gauze dressings. Gauze dressing to right great toe. Offload as much as possible follow-up with you and keep bionics for new shoe. Follow up in 1 week
--- NOTE | 2017-10-31 10:00 | PN.PCM_ITS ---
(1) Decubitus ulcer of right heel, stage 3 Status: Acute Current Visit: No Code(s): L89.613 - Pressure ulcer of right heel, stage 3 (2) Diabetic foot ulcer associated with type 2 diabetes mellitus Status: Acute Current Visit: No Code(s): E11.621 - Type 2 diabetes mellitus with foot ulcer; L97.509 - Non-pressure chronic ulcer of other part of unspecified foot with unspecified severity (3) Non-pressure chronic ulcer of other part of right foot with fat layer exposed Status: Acute Current Visit: No Code(s): L97.512 - Non-pressure chronic ulcer of other part of right foot with fat layer exposed (4) Blister (nonthermal), right great toe, initial encounter Status: Acute Current Visit: Yes Code(s): S90.421A - Blister (nonthermal), right great toe, initial encounter Type of Wound Date of Service: 10/31/17 Chief Complaint: R foot DFU History of Wound: 57 year old woman with r DFU heel willy 1. Hx of many feet ulcers that heal well Progress of Wound: The right heel ulcer is open but filling in with new tissue. Epi fix #7 applied to the ulcer base. Patient developed a blood blister on right great toe. Removed skin and fluid has a big contusion on the lateral inner aspect of the right toe Heel is getting smaller despite no offloading or anything on it. 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 She has finished taking her Levaquin antibiotic . She has refused anything like a special shoe or cast or anything because of her balance and money. She still refuses to stop smoking. The epi fix is medically necessary because of poor noncompliance with usual treatment patterns has healed ulcer on her metatarsal head and her heel is improving.Patient is falling more and more because she states she has low blood pressure and cannot get in to see her regular doctor. Again a lot of callus that had to be debrided around the ulcer which made it a little bit bigger. Patient was also encouraged to eat Dannon yogurt. - Physical Exam Vital Signs Temp Pulse Resp BP 97.5 F L 76 18 122/71 H 10/31/17 09:21 10/31/17 09:21 10/31/17 09:21 10/31/17 09:21 General: Oriented x3, Cooperative, Well developed HEENT: Atraumatic, PERRLA Oral: Moist Mucosa Neck: Supple, No JVD Lungs: Clear to auscultation, Normal air movement Cardiovascular: Regular rate, Regular Rhythm Abdomen: Bowel Sounds Present, Soft, Non Tender, No Hepato-splenomegaly Extremities: No clubbing, No edema Skin: Ulcer/ Wound - Right heel and right great toe blister Wound Measurements and Assessment WC - Nurse 1 - General Ulcer Measurement Start: 10/31/17 09:13 Freq: Status: Active Protocol: Activity Type Activity Date Activity User E-Sign Co-Sign Detail Recorded Client Recorded Date Recorded By Document 10/31/17 09:14 [id number] 10/31/17 09:19 10/31/17 09:14 Wound Center Nurse 1 [Ulcer Assessment] #6 RIGHT GREAT TOE -Combined with other wound No -Current Size (cm) - Length 0.1 -Current Size (cm) - Width 0.1 -Current Size (cm) - Depth 0.1 -Total Square Cm 0.01 -Date of Last Picture (Recall this 10/31/17 field) -Photo Taken Yes -Epithelialization None Present -Tunneling No -Undermining/Tunneling No -Circular Undermining No -Exudate Amt None Present (0 %) -Wound Margin Thickened -Slough/Fibrin Yes -Necrosis Amt None Present (0 %) -Necrotic Tissue Type Adherent Slough -Texture (Loly-wound Skin Appearance) Callus -Moisture (Loly-wound Skin Appearance No Abnormality ) Assessed -Color (Loly-wound Skin Appearance) No Abnormality Assessed -Temperature (Loly-wound Skin No Abnormality Appearance) (Pt Warm) -Tenderness on Palpation (Loly-wound No Skin Appearance) -Ulcer Cleansing Rinsed/ Irrigated with Saline -Foul Odor after Cleansing No -Anesthetic Used 4% Lidocaine Solution #3 RIGHT HEEL -Combined with other wound No -Current Size (cm) - Length 0.7 -Current Size (cm) - Width 0.9 -Current Size (cm) - Depth 0.2 -Total Square Cm 0.63 -Date of Last Picture (Recall this 10/31/17 field) -Photo Taken Yes -Epithelialization None Present -Tunneling No -Undermining/Tunneling No -Circular Undermining No -Exudate Amt Small (1-33%) -Exudate Type Serosanguineous -Wound Margin Distinct, Outline Attached -Granulation Amt Small (1-33%) -Granulation Quality [place] Red -Slough/Fibrin Yes -Necrosis Amt None Present (0 %) -Necrotic Tissue Type Adherent Slough -Structure Exposed None/Limited to Skin Breakdown -Texture (Loly-wound Skin Appearance) No Abnormality Assessed -Moisture (Loly-wound Skin Appearance No Abnormality ) Assessed -Color (Loly-wound Skin Appearance) No Abnormality Assessed -Temperature (Loly-wound Skin No Abnormality Appearance) (Pt Warm) -Tenderness on Palpation (Loly-wound No Skin Appearance) -Ulcer Cleansing Rinsed/ Irrigated with Saline -Foul Odor after Cleansing No -Anesthetic Used 4% Lidocaine Solution [Edema Assessment] -Lower Limb Edema Present No -Right Calf (cm) 38.5 -Right Ankle (cm) 29.9 -Left Calf (cm) 39.2 -Left Ankle (cm) 29.2 WC - Nurse 2 - General Ulcer CM Notes Start: 10/31/17 09:13 Freq: Status: Active Protocol: Activity Type Activity Date Activity User E-Sign Co-Sign Detail Recorded Client Recorded Date Recorded By Document 10/31/17 09:27 MW [id number] 10/31/17 09:44 MW 10/31/17 09:27 Wound Center Nurse 2 [Procedure/Treatment] #6 RIGHT GREAT TOE -Time 09:29 -Correct Patient Yes -Correct Side, Site, Position Yes -Correct Procedure Yes -Procedure Performed Yes -Type of Procedure Debridement -Clinical Debridement Subcutaneous -Post Debridement Size (cm) - Length 1.0 -Post Debridement Size (cm) - Width 3.0 -Post Debridement Size (cm) - Depth 0.1 -Total Square Cm 3.00 -Wound/Ulcer Outcome Not Healed -Ulcer Cleansing Rinsed/ Irrigated with Saline -Foul Odor after Cleansing No -Bioengineered Tissue No -Bleeding Controlled with Pressure -Treatment Response Procedure Tolerated Well #3 RIGHT HEEL -Time 09:27 -Correct Patient Yes -Correct Side, Site, Position Yes -Correct Procedure Yes -Procedure Performed Yes -Type of Procedure Debridement -Clinical Debridement Subcutaneous -Post Debridement Size (cm) - Length 0.9 -Post Debridement Size (cm) - Width 0.9 -Post Debridement Size (cm) - Depth 0.2 -Total Square Cm 0.81 -Wound/Ulcer Outcome Not Healed -Ulcer Cleansing Rinsed/ Irrigated with Saline -Foul Odor after Cleansing No -Bioengineered Tissue Yes -Type of bioengineered Tissue EPIFIX -Expiration Date 07/29/22 -Product Lot Number [id number] -Percent Used 100 -Saline Lot Number [id number] -Bleeding Controlled with Pressure -Treatment Response Procedure Tolerated Well [See Physician Procedure note for Specifics] Pain Scale: 0-10 Numeric [Pain] -Is Patient Pain Free? Yes Musculoskeletal: No Tenderness to Palpation of Joints or Extremities Lymphatic: No Cervical, Supraclavicular, or Inguinal Adenopathy Neurological: Cranial nerves II-XII grossly intact, Neuro grossly intact Psych/Mental Status: Normal Affect, Appropriate Debridement Note Post-Debridement Measurements/Treatment WC - Nurse 2 - General Ulcer CM Notes Start: 10/31/17 09:13 Freq: Status: Active Protocol: Activity Type Activity Date Activity User E-Sign Co-Sign Detail Recorded Client Recorded Date Recorded By Document 10/31/17 09:27 MW [id number] 10/31/17 09:44 MW 10/31/17 09:27 Wound Center Nurse 2 #6 RIGHT GREAT TOE -Time 09:29 -Correct Patient Yes -Correct Side, Site, Position Yes -Correct Procedure Yes -Procedure Performed Yes -Type of Procedure Debridement -Clinical Debridement Subcutaneous -Post Debridement Size (cm) - Length 1.0 -Post Debridement Size (cm) - Width 3.0 -Post Debridement Size (cm) - Depth 0.1 -Total Square Cm 3.00 -Wound/Ulcer Outcome Not Healed -Ulcer Cleansing Rinsed/ Irrigated with Saline -Foul Odor after Cleansing No -Bioengineered Tissue No -Bleeding Controlled with Pressure -Treatment Response Procedure Tolerated Well #3 RIGHT HEEL -Time 09:27 -Correct Patient Yes -Correct Side, Site, Position Yes -Correct Procedure Yes -Procedure Performed Yes -Type of Procedure Debridement -Clinical Debridement Subcutaneous -Post Debridement Size (cm) - Length 0.9 -Post Debridement Size (cm) - Width 0.9 -Post Debridement Size (cm) - Depth 0.2 -Total Square Cm 0.81 -Wound/Ulcer Outcome Not Healed -Ulcer Cleansing Rinsed/ Irrigated with Saline -Foul Odor after Cleansing No -Bioengineered Tissue Yes -Type of bioengineered Tissue EPIFIX -Expiration Date 07/29/22 -Product Lot Number [id number] -Percent Used 100 -Saline Lot Number [id number] -Bleeding Controlled with Pressure -Treatment Response Procedure Tolerated Well Pain Scale: 0-10 Numeric Is Patient Pain Free? Yes Wound debrided: Right heel Type of Debridement: Excisional debridement Anesthesia Used: 5% Lidocaine Gel Depth: Down to and including healthy tissue, in the subcutaneous layer Percentage of wound debrided: 100 Instrument Used: 5mm curette Tissue Removed: Fibrin Severity: Limited To Skin Breakdown Amount of bleeding with debridement: Mild - Additional Wound Wound debrided: Right great toe Type of Debridement: Excisional debridement Anesthesia Used: 5% Lidocaine Gel Depth: Down to and including healthy tissue Percentage of wound debrided: 100 Instrument Used: 5mm curette Tissue Removed: Fibrin Amount of bleeding with debridement: None Bleeding Controlled with: Compression and gauze Patient tolerated procedure: Patient tolerated procedure well Assessment/Plan Active Problems (Last Updated 08/19/17 @ 09:45 by Patricia Hanks) Blister (nonthermal), right great toe, initial encounter (Acute) Assessment: Type II diabetic. Tobacco abuser. DFU Scott 2 to right foot heel. First metatarsal head ulcer left foot resolved. Blister right great toe Plan: Applied #7 epi fix between the right heel ulcers covered with hydrogel [place] Steri-Strips and protective padded gauze dressings. Gauze dressing to right great toe. Offload as much as possible follow-up with you and keep bionics for new shoe. Follow up in 1 week
== END 2017-11-28 23:59 ==
LOC: WC 09:00
PROVIDERS: Family Provider Internal Medicine; PCP Internal Medicine; Visit Provider Nurse Practitioner
DX: E11.621 Type 2 diabetes mellitus with foot ulcer (principal); L89.613 Pressure ulcer of right heel, stage 3; Z91.19 Patient's noncompliance with other medical treatment and regimen; L84 Corns and callosities; F17.200 Nicotine dependence, unspecified, uncomplicated; S90.421A Blister (nonthermal), right great toe, initial encounter; X58.XXXA Exposure to other specified factors, initial encounter
CPT/HCPCS: 11042; 15275; Q4131

== ENCOUNTER 2017-11-05 12:16 | Emergency (ER) | payer MEDICARE, MEDICAID, SELFPAY ==
[2017-11-05 12:17] VITALS: BP 122/110; PULSE 82; RESP 18; TEMP 36.8; O2SAT 97; BMI 37.8
[2017-11-05] MEDS: Diphth,Pertuss(Acell),Tet Vac 0.5 ML Vial IM (12:58)
[2017-11-05] MEDS: Cefazolin 1 GM/50 ML BAG IV (12:58)
[2017-11-05] MEDS: Morphine 4 MG/ML Syringe IV (12:59)
[2017-11-05 13:04] VITALS: BP 120/63; PULSE 84; RESP 14; O2SAT 98
[2017-11-05 13:12] LABS: Absolute Lymphocyte Count 2.08 X10^3/ul (0.83-4.51); Absolute Neutrophil Count 20.4 X10^3/uL (2.0-7.7); Basophil# 0.03 X10^3/uL; Basophil% 0.1 % (0-1); Eosinophil# 0.02 X10^3/uL; Eosinophils% 0.1 % (0-5); Hematocrit 39.8 % (37-47); Hemoglobin 12.6 g/dl (12.0-15.0); Lymphocyte # 2.08 X10^3/ul (4.0); Lymphocyte % 8.9 % (19-41); Mean Corp Hgb Conc 31.7 g/gl (32-36); Mean Corpuscular Volume 91.5 fL (81-99); Mean Platelet Vol. 9.9 fl (6.2-12.0); Monocyte# 0.78 X10^3/uL; Monocyte% 3.3 % (0-10); Neutrophil # 20.38 X10^3/uL (2.7-7.7); Platelet Count 217 K/mm3 (150-450); RBC Distribution Width CV 16.4 % (11.6-14.6); RBC Distribution Width SD 55.1 fl (35.1-43.9); Red Blood Count 4.35 M/mm3 (4.2-5.4); White Blood Count 23.4 K/mm3 (4.4-11.0)
[2017-11-05 13:14] LABS: Differential Indicated SCAN CRITERIA MET; POSITIVE COUNT NO; POSITIVE DIFFERENTIAL YES; POSITIVE MORPHOLOGY YES
--- NOTE | 2017-11-05 13:18 | RAD_ITS ---
STUDY: X-RAY - LEFT ANKLE REASON FOR EXAM: Fall. TECHNIQUE: 2 view(s) of the ankle. COMPARISON: None. FINDINGS: There is a displaced fracture of the distal fibula, a displaced fracture of the medial malleolus and lateral dislocation of the tibiotalar articulation. Normal visualized talus and calcaneus. There is a soft tissue defect of the medial aspect of the ankle. RAD/Ankle 2 Views IMPRESSION: Left ankle fracture dislocation. Electronically Signed: Jason Fernandez MD at 14:07 EDT Tel , Service support ,
[2017-11-05 13:19] LABS: Anion Gap 13 (5-15); BUN 71 mg/dL (7-18); BUN/Creat Ratio 19.1 RATIO (10-20); Calcium,Total 9.5 mg/dL (8.5-10.1); Chloride 106 mmol/L (98-107); Creatinine, Serum 3.72 mg/dL (0.55-1.02); EST Glomerular Filtration Rate 13 mL/min (>60); Est Glom Filt Rate - Afr Amer 16 mL/min (>60); Estimated Creatinine Clearance 15.24 ml/min; Glucose 195 mg/dL (74-106); Potassium 5.8 mmol/L (3.5-5.1); Sodium Level 136 mmol/L (136-145)
[2017-11-05 13:21] LABS: International Normalized Ratio 1.2; Prothrombin Time (Protime)PT. 14.7 SECONDS (11.7-14.9)
[2017-11-05] MEDS: 0.9% Normal Saline 1,000 ML 999 ML IV (13:43)
--- NOTE | 2017-11-05 13:50 | ED.DCSUM_ITS ---
- ER Visit Summary Date of Service: 11/05/17 Chief Complaint: Left ankle injury History of Present Illness: The patient is a 57 F who presents with a left ankle injury. She had a fall at home. She states he has been having diarrhea all night and she may have slipped in some diarrhea on the floor. She sustained an open fracture per EMS. She has a history of neuropathy and did not realize that she had a bone sticking out of her skin. She has a history of rheumatoid arthritis. EMS cover the open fracture. She had good pulses in the left foot during transport. Physical Examination: Signs reviewed. Heart is regular rate and rhythm. Lungs are clear. Abdomen soft. Left ankle exam reveals an open dislocation of the left ankle with the distal tibia exposed. There is hair located on the distal tibia, likely from a PET. Pulses in the foot are palpable. Her foot is warm. She is able to move her toes. Test Results: White blood cell count 23.4. Hemoglobin 12.6. Potassium 5.8, BUN 41, creatinine 3.72. FOBT negative. Left ankle x-ray reveals an open fracture dislocation Emergency Department Course and Treatment: Patient had Ancef and tetanus updated. She is given morphine and normal saline. Patient is dehydrated along with her open fracture dislocation. Patient will require transferred due to the open fracture. She requested to go to [place]. I spoke with Dr. Robbins in the emergency department there and the patient will be transferred did I did not relocate the ankle because she has good distal pulses and the fact that she has gross contamination of the distal tibia that I do not want to introduce into the joint space. We will put a wet-to-dry bulky dressing before transport. Treatment Plan: [] Disposition: Transfer Impression: Open fracture dislocation left ankle Acute kidney injury, dehydration This note was generated with [employer] dictation software. It may contain incorrect words, spelling, and punctuation that were not noted in review of the chart prior to signing ED Disposition - Plan for ED Patient: Chief Complaint: Fall Referrals: Pia Newton MD [Primary Care Provider] -
[2017-11-05 14:05] VITALS: BP 137/64; PULSE 81; RESP 16; O2SAT 94
[2017-11-05 14:10] VITALS: BP 137/64; PULSE 80; RESP 16; O2SAT 96
== END 2017-11-05 14:42 | disposition short-term general hospital (02) ==
PROVIDERS: Emergency Provider Emergency Medicine; Family Provider Internal Medicine; PCP Internal Medicine
DX: S82.892B Other fracture of left lower leg, initial encounter for open fracture type I or II (principal); W19.XXXA Unspecified fall, initial encounter; Y93.9 Activity, unspecified; Y92.009 Unspecified place in unspecified non-institutional (private) residence as the place of occurrence of the external cause; N17.9 Acute kidney failure, unspecified; E86.0 Dehydration; R19.7 Diarrhea, unspecified; J44.9 Chronic obstructive pulmonary disease, unspecified; E11.40 Type 2 diabetes mellitus with diabetic neuropathy, unspecified; M06.9 Rheumatoid arthritis, unspecified; Z79.84 Long term (current) use of oral hypoglycemic drugs; Z79.899 Other long term (current) drug therapy; Z72.0 Tobacco use
CPT/HCPCS: 73600; 80048; 82274; 85025; 85610; 90715; 96365; 96375; 99284

== ENCOUNTER → 2017-12-25 08:29 | Outpatient (CLI) | payer SELFPAY ==
[2017-12-25 08:41] VITALS: BP 90/45; PULSE 76; RESP 15; TEMP 36.4; O2SAT 100; BMI 34.0
[2017-12-25 10:21] VITALS: BP 105/58; PULSE 62; RESP 14; TEMP 36.6; O2SAT 100
[2017-12-25 11:21] VITALS: BP 136/72; PULSE 80; RESP 16; TEMP 36.2; O2SAT 100
[2017-12-25 12:06] VITALS: BP 128/75; PULSE 80; RESP 16; TEMP 36.2; O2SAT 100
[2017-12-25] MEDS: Furosemide 20 MG/2 ML VIAL IV (12:08)
[2017-12-25 12:33] VITALS: BP 120/62; PULSE 81; RESP 16; TEMP 36.4; O2SAT 99
[2017-12-25 13:33] VITALS: BP 111/63; PULSE 76; RESP 16; TEMP 36.7; O2SAT 100
== END ==
PROVIDERS: Family Provider Internal Medicine; PCP Internal Medicine; Referring Provider Nurse Practitioner Adult Health; Visit Provider Nurse Practitioner Adult Health
DX: D64.9 Anemia, unspecified (principal)
CPT/HCPCS: 36415; 36430; 86850; 86900; 86920; 86922; J7040; P9016; A4216; J1940

== ENCOUNTER 2018-01-13 15:20 | Emergency (ER) | payer MEDICARE, MEDICAID, SELFPAY ==
[2018-01-13 15:21] VITALS: BP 163/77; PULSE 114; RESP 16; TEMP 37.9; O2SAT 96; BMI 35.0
--- NOTE | 2018-01-13 15:44 | ED.VISSUMM ---
- ER Visit Summary Date of Service: 01/13/18 Chief Complaint: Left ankle and foot wound History of Present Illness: The patient is a 57 F presenting with left ankle and foot infection. Patient states that she was discharged from rehab a week ago. When she was in rehab she had a wound VAC. She was sent home without a wound VAC and she has been unable to obtain this. She finished antibiotics yesterday. She states she had surgery at [facility] she believes in October for fracture dislocation left ankle. She states she was admitted to [facility] for 1 month and had multiple surgeries. She was sent to rehab. She developed C. difficile. She was sent back to [place]. She was then discharged again to rehab. Her C. difficile has cleared. She was discharged from rehab 1 week ago. She is a poor historian. Physical Examination: Vitals are stable. Temperature 100.3 Alert no acute distress. HEENT exam is unremarkable. Neck is supple. Lungs are clear and equal bilaterally. Heart is regular rate and rhythm. Abdomen is soft nontender nondistended. Extremities deep wound to medial and lateral left ankle with bone exposed. Foul smelling, purlunet discharge. Dopplerable pulse Skin is warm and dry. No focal neurologic deficit. Remainder of exam is unremarkable. Emergency Department Course and Treatment: CBC showed a white count of 14.0, hemoglobin 8.2, platelets 459. Chemistry shows sodium 135, glucose 135, BUN 50, creatinine 2.16. Lactic acid is normal. Wound culture was sent. ESR 92, CRP 359. Patient was given morphine, Zofran. She was given vancomycin and Zosyn IV. Left ankle x-ray shows patient has undergone ORIF of the distal tibia/fibular fractures since previous study with a lateral metal sideplate along the distal fibula, secured by numerous screws. A few of these screws passed across into the tibia, but have since become disengaged and/or displaced, as described. A persistent fracture at the base of the medial malleolus shows significant displacement, and there is one half shaft widths anterolateral displacement of the dome of the talus relative to the distal tibial plafond, as well as widening of the space between the distal tibia and fibula. The anteromedial margin of the distal tibial metaphysis appears to extend through an open wound, and there is loss of cortical integrity consistent with osteomyelitis. There are additional osseous changes of osteomyelitis involving the distal fibular diaphysis, as described. There is notable anterolateral soft tissue swelling at the ankle, consistent with concomitant cellulitis. Patient was discussed with Dr. Douglas from [facility] and will be transferred to [facility]. Disposition: Transfer at [facility] Impression: Left ankle wound with bone exposure with osteomyelitis/cellulitis This note was generated with [employer] dictation software. It may contain incorrect words, spelling, and punctuation that were not noted in review of the chart prior to signing ED Disposition - Plan for ED Patient: Chief Complaint: Lower Extremity Injury Referrals: Pia Newton MD [Primary Care Provider] -
--- NOTE | 2018-01-13 15:48 | RAD_ITS ---
STUDY: X-RAY - LEFT FOOT CLINICAL: Female, 57 years old. Left foot infection. TECHNIQUE: 3 view(s) of the foot. COMPARISON: None. FINDINGS: The patient has undergone ORIF of distal tibial and talar fractures with metal hardware along the lateral margin of the distal fibula. However, there are additional changes of osteomyelitis, and a few of the fixation screws that extend across into the distal tibia have become dislodged. See report of ankle films also done today. There is mottled density at the mid body of the calcaneus, but no discrete destructive lesion to indicate osteomyelitis. On the oblique view, the inferolateral cortical margin of the talus is indistinct. Focal areas of decreased density also noted in the cuneiforms, and it is difficult to exclude the presence of osteomyelitis at these sites. There is an enthesophyte involving the posterior superior calcaneus at the site of insertion of the Achilles tendon. There is a plantar calcaneal spur. There is anterior periventricular spurring at the distal margin of the navicular. Normal remaining tarsal bones. Normal visualized subtalar, talonavicular, calcaneocuboid, tarsal and tarsometatarsal articulations. There is a 1 cm erosive lesion in the medial mid diaphysis of the first metatarsal, consistent with the site of osteomyelitis. Body demineralization in the bases of the second and third metatarsals raise question of additional infectious foci at these sites. Normal metatarsophalangeal joint of the great toe. Normal tibial and fibular sesamoid bones. Normal interphalangeal joint of the great toe. Normal phalanges of the great toe. Normal second through fifth metatarsophalangeal joints. Normal interphalangeal joints and phalanges of the lesser toes. There is a soft tissue defect at the medial aspect of ankle, and the medial cortical margin of the distal tibia protrudes into this site. There is anteromedial soft tissue swelling of the foot. Focal soft tissue ulceration seen in the medial aspect of the foot at the level of the lytic defect in the first metatarsal. RAD/Foot min 3 Views IMPRESSION: 1. See report of ankle films also done today regarding chronic fracture deformities and changes of osteomyelitis involving the distal tibia and fibula, now status post attempted ORIF with metal hardware. 2. There is an open wound at the medial aspect of the ankle, and the distal tibial metaphysis protrudes into this site. Soft tissue swelling also noted in the foot, and there is ulceration in the medial aspect of the midfoot. 3. There is a lytic defect in the medial cortical margin of the mid diaphysis of the first metatarsal at the level of the soft tissue ulceration, consistent with osteomyelitis. 4. The inferolateral cortical margin of the talus is not well seen in the oblique view, and there is patchy demineralization in the mid body of the calcaneus. Spotty demineralization seen and a few other tarsal bones as well as the bases of the second and third metatarsals. Other foci of active osteomyelitis difficult to exclude. 5. There are plantar and Achilles spurs of the calcaneus. Electronically Signed: Parrish Morillo MD at 17:34 EDT , Service support ,
[2018-01-13] MEDS: Morphine 4 MG/ML Syringe IV (15:56)
[2018-01-13] MEDS: Ondansetron 4 MG/2 ML Vial IV (15:56)
--- NOTE | 2018-01-13 16:10 | RAD_ITS ---
STUDY: X-RAY - LEFT ANKLE REASON FOR EXAM: Female, 57 years old. Left ankle infection. TECHNIQUE: 3 view(s) of the ankle. COMPARISON: 2 views of the left ankle November 05, 2017 FINDINGS: Since the prior study, the patient has undergone ORIF of the distal fibular and tibial fractures. A metal sideplate with an 18.5 degree bend at its midpoint seen along the lateral margin of the distal fibula, fixed by numerous screws. The third screw from the bottom extends across to pass into the distal tibia, but also projects 5-6 mm lateral to the metal plate. The screw just above this extend 14 mm lateral to the metal plate. Its distal and may have been engaged in the tibia at some point as well -a faint tract is visualized - but is not today. Similarly, the second screw from the bottom extends 5 mm from the metal plate. Its tip abuts the lateral cortical margin of the distal tibia, but is not engaged in the tibia itself. There is a mildly moth-eaten appearance of the distal tibial diaphysis surrounding the 3 mildly displaced screws as noted above with additional loss of the medial cortical margin. The distal fibula has an angulated contour that matches that of a metal plate, but a discrete fracture line is no longer apparent. Fracture through the base of the medial malleolus persists, and there is 10-12 mm medial displacement of the medial malleolar fracture fragment relative to the distal tibia. There is one half shaft widths anterolateral subluxation of the dome of the talus relative to the distal tibial plafond, as well as 13.5 mm distance between the distal tibia and fibula. The anteromedial margin of the distal tibial metaphysis appears to extend through an open wound at the ankle, and there is corresponding loss of cortical integrity consistent with active osteomyelitis. Serial reaction noted along the medial distal diaphysis of the tibia. There is cortical irregularity at the lateral margin of the tibial plafond and neck could reflect a small cortical avulsion fracture fragment, site of cortical healing, or other soft tissue calcification. Normal visualized talus. Mildly mottled density at the plantar mid body of the calcaneus, but no discrete destructive lesion. There is an enthesophyte involving the posterior superior calcaneus at the site of insertion of the Achilles tendon. There is a plantar calcaneal spur. There is anterior periarticular cortical spurring at the distal margin of the navicular. The visualized subtalar, talonavicular, calcaneocuboid and tarsal articulations are normal. There is anterolateral soft tissue swelling. Atherosclerotic vascular calcifications again identified. RAD/Ankle min 3 Views IMPRESSION: 1. Patient has undergone ORIF of the distal tibia/fibular fractures since previous study with a lateral metal sideplate along the distal fibula, secured by numerous screws. A few of these screws passed across into the tibia, but have since become disengaged and/or displaced, as described. A persistent fracture at the base of the medial malleolus shows significant displacement, and there is one half shaft widths anterolateral displacement of the dome of the talus relative to the distal tibial plafond, as well as widening of the space between the distal tibia and fibula. 2. The anteromedial margin of the distal tibial metaphysis appears to extend through an open wound, and there is loss of cortical integrity consistent with osteomyelitis. There are additional osseous changes of osteomyelitis involving the distal fibular diaphysis, as described. There is notable anterolateral soft tissue swelling at the ankle, consistent with concomitant cellulitis. 3. Atherosclerotic vascular calcifications present. 4. There are plantar and Achilles spurs of the calcaneus. There is mottled density at the mid body of the calcaneus, but no discrete destructive lesion. The talus also appears intact. Electronically Signed: Parrish Morillo MD at 17:26 EDT , Service support ,
[2018-01-13 16:13] LABS: Absolute Lymphocyte Count 1.86 X10^3/ul (0.83-4.51); Absolute Neutrophil Count 10.4 X10^3/uL (2.0-7.7); Basophil# 0.04 X10^3/uL; Basophil% 0.3 % (0-1); Eosinophil# 0.07 X10^3/uL; Eosinophils% 0.5 % (0-5); Hematocrit 26.2 % (37-47); Hemoglobin 8.2 g/dl (12.0-15.0); Lymphocyte # 1.86 X10^3/ul (4.0); Lymphocyte % 13.3 % (19-41); Mean Corp Hgb Conc 31.3 g/gl (32-36); Mean Corpuscular Hgb 27.2 pg (27.0-32.0); Monocyte# 1.48 X10^3/uL; Monocyte% 10.6 % (0-10); Neutrophil # 10.39 X10^3/uL (2.7-7.7); Neutrophil % 74.5 % (47-70); Platelet Count 459 K/mm3 (150-450); RBC Distribution Width CV 15.7 % (11.6-14.6); RBC Distribution Width SD 48.9 fl (35.1-43.9); Red Blood Count 3.01 M/mm3 (4.2-5.4)
[2018-01-13 16:18] LABS: POSITIVE COUNT NO; POSITIVE DIFFERENTIAL NO; POSITIVE MORPHOLOGY NO
[2018-01-13 16:24] LABS: Erythrocyte Sedimentation Rate 92 mm/hr (0-30)
[2018-01-13 16:37] LABS: Lactic Acid 1.2 mmol/L (0.4-2.0)
--- NOTE | 2018-01-13 16:43 | CHAPLAIN ---
Type of Pastoral Visit ___ Initial Visit ___ Follow-up Visit ___ On-call Visit ___ General Patient Visit ___ Spiritual Assessment ___ Family Conference ___ Bereavement ___ Rapid Response ___ Code Blue _x__ Other (describe below) Pastoral Care Referral From _x__ Patient ___ Family _x__ Nurse ___ Physician ___ Social Service Manager ___ Acid Tender ___ Other (describe below) Sacrament/Intervention _x__ Active listening ___ Anointing ___ Oriental Orthodox ___ Bereavement ___ Communion _x__ Kaylie exploration ___ _x__ Life review _x__ Prayer ___ Reconciliation ___ Sacrament of Sick _x__ Supportive presence ___ Wedding ___ Other (describe below) Pastoral Comments rounding in ED and was asked by RN to talk with this patient after she gave consent
[2018-01-13 17:21] LABS: Anion Gap 10 (5-15); BUN 50 mg/dL (7-18); BUN/Creat Ratio 23.1 RATIO (10-20); Calcium,Total 8.9 mg/dL (8.5-10.1); Chloride 104 mmol/L (98-107); Creatinine, Serum 2.16 mg/dL (0.55-1.02); EST Glomerular Filtration Rate 25 mL/min (>60); Est Glom Filt Rate - Afr Amer 30 mL/min (>60); Estimated Creatinine Clearance 26.25 ml/min; Glucose 135 mg/dL (74-106); Potassium 4.9 mmol/L (3.5-5.1); Sodium Level 135 mmol/L (136-145)
[2018-01-13 18:01] VITALS: BP 118/58; PULSE 101; RESP 12; O2SAT 95
[2018-01-13] MEDS: Piperacil/Tazobactam 3.375 GM/50 ML ML IV (18:01)
[2018-01-13 19:50] VITALS: BP 124/64; PULSE 94; RESP 19; TEMP 37.3; O2SAT 96
[2018-01-13 21:05] VITALS: BP 112/60; PULSE 94; RESP 24; O2SAT 99
--- NOTE | 2018-01-14 13:31 | ED.RN ---
Faxed prelim blood culture results to Charlene at [facility]. [phone]
== END 2018-01-13 21:05 | disposition short-term general hospital (02) ==
LOC: ED 16:03
PROVIDERS: Emergency Provider Emergency Medicine; Family Provider Internal Medicine; PCP Internal Medicine
DX: S91.002A Unspecified open wound, left ankle, initial encounter (principal); M86.8X7 Other osteomyelitis, ankle and foot; L03.116 Cellulitis of left lower limb; X58.XXXA Exposure to other specified factors, initial encounter; Y93.9 Activity, unspecified; Y92.9 Unspecified place or not applicable; I25.10 Atherosclerotic heart disease of native coronary artery without angina pectoris; E11.9 Type 2 diabetes mellitus without complications; I10 Essential (primary) hypertension; E78.00 Pure hypercholesterolemia, unspecified; M19.90 Unspecified osteoarthritis, unspecified site; M06.9 Rheumatoid arthritis, unspecified; Z86.19 Personal history of other infectious and parasitic diseases; Z96.9 Presence of functional implant, unspecified; Z79.899 Other long term (current) drug therapy; Z72.0 Tobacco use
CPT/HCPCS: 73610; 73630; 80048; 83605; 85025; 85652; 86140; 87040; 87070; 87077; 87186; 87205; 96365; 96366; 96367; 96374; 96375; 99285; J7030; J7040; J7050; A4216; J2405

== ENCOUNTER 2018-01-16 17:45 | Inpatient (IN) | payer MEDICARE, MEDICAID, SELFPAY ==
[2018-01-16 17:46] VITALS: BP 127/55; PULSE 101; RESP 18; TEMP 37.2; O2SAT 98; BMI 35.5
--- NOTE | 2018-01-16 18:23 | EKG12_ITS ---
Test Reason : LOWER EXTREM PAIN Blood Pressure : / mmHG Vent. Rate : 094 BPM Atrial Rate : 094 BPM P-R Int : 152 ms QRS Dur : 098 ms QT Int : 380 ms P-R-T Axes : 021 031 057 degrees QTc Int : 475 ms Sinus rhythm with occasional Premature ventricular complexes Low voltage QRS Nonspecific T wave abnormality Prolonged QT Abnormal ECG Confirmed by TOÑA SKINNER, RODGER ([id number]), editor sound ANA ROSA BAEZA ([id number]) on 01/19/2018 12:25:21 PM Referred By: Juan Tavarez Confirmed By:RODGER DING MD
--- NOTE | 2018-01-16 18:23 | RAD_ITS ---
STUDY: X-RAY CHEST REASON FOR EXAM: Female, 57 years old. Cough. TECHNIQUE: PA and lateral views of the chest. # of Images: 2 COMPARISON: 10/19/2012 FINDINGS: Interstitial prominence is noted throughout suggesting pulmonary edema. There is no demonstrated pleural abnormality. There is mild cardiac enlargement. Normal mediastinum and josie. Normal visualized pulmonary arteries. Normal visualized aortic arch and descending thoracic aorta. Normal visualized thoracic spine. Normal visualized ribs, clavicles, and shoulders. There is no demonstrated abnormality of the visualized soft tissue structures of the upper abdomen. RAD/Chest PA and Lateral IMPRESSION: Mild cardiomegaly and probable early pulmonary edema/CHF Electronically Signed: Rodger Torres DO at 19:20 EDT Tel , Service support ,
--- NOTE | 2018-01-16 18:58 | RAD_ITS ---
STUDY: X-RAY - LEFT ANKLE REASON FOR EXAM: Female, 57 years old. Left ankle pain. Possible skin infection TECHNIQUE: 3 view(s) of the ankle. # of Images: 3 COMPARISON: None. FINDINGS: Extensive plate and screw fixation of the ankle is noted. However, there is ankle mortise dislocation with medial malleolus fracture. Hardware appears intact. There is some healing of distal fibular fracture however, there appears to be osseous destruction which could represent infectious process such as osteomyelitis. This appears to involve the distal fibula as well as the lateral aspect of the distal tibia. Extensive soft tissue swelling. Soft tissue ulceration is noted. RAD/Ankle min 3 Views IMPRESSION: Medial malleolus fracture with ankle mortise dislocation. Osseous destruction suggesting osteomyelitis. Extensive soft tissue swelling with soft tissue ulceration. Electronically Signed: Rodger Torres DO at 19:21 EDT Tel , Service support ,
[2018-01-16 20:00] LABS: Absolute Lymphocyte Count 2.26 X10^3/ul (0.83-4.51); Absolute Neutrophil Count 7.6 X10^3/uL (2.0-7.7); Basophil# 0.04 X10^3/uL; Basophil% 0.4 % (0-1); Eosinophil# 0.12 X10^3/uL; Eosinophils% 1.1 % (0-5); Hematocrit 23.5 % (37-47); Hemoglobin 7.3 g/dl (12.0-15.0); Lymphocyte # 2.26 X10^3/ul (4.0); Mean Corp Hgb Conc 31.1 g/gl (32-36); Mean Corpuscular Hgb 26.4 pg (27.0-32.0); Mean Corpuscular Volume 85.1 fL (81-99); Monocyte# 1.17 X10^3/uL; Monocyte% 10.3 % (0-10); Neutrophil # 7.61 X10^3/uL (2.7-7.7); Neutrophil % 67.2 % (47-70); Platelet Count 400 K/mm3 (150-450); RBC Distribution Width CV 16.1 % (11.6-14.6); RBC Distribution Width SD 49.8 fl (35.1-43.9); Red Blood Count 2.76 M/mm3 (4.2-5.4); White Blood Count 11.3 K/mm3 (4.4-11.0)
[2018-01-16 20:02] LABS: POSITIVE COUNT NO; POSITIVE DIFFERENTIAL NO; POSITIVE MORPHOLOGY NO
[2018-01-16 20:21] LABS: Erythrocyte Sedimentation Rate 69 mm/hr (0-30)
[2018-01-16 20:34] LABS: Anion Gap 8 (5-15); BUN 36 mg/dL (7-18); BUN/Creat Ratio 20.5 RATIO (10-20); Calcium,Total 8.6 mg/dL (8.5-10.1); Chloride 106 mmol/L (98-107); Creatinine, Serum 1.76 mg/dL (0.55-1.02); EST Glomerular Filtration Rate 31 mL/min (>60); Est Glom Filt Rate - Afr Amer 38 mL/min (>60); Estimated Creatinine Clearance 32.22 ml/min; Glucose 141 mg/dL (74-106); Potassium 4.2 mmol/L (3.5-5.1); Sodium Level 137 mmol/L (136-145)
[2018-01-16 20:46] VITALS: BP 133/55; PULSE 94; RESP 18; O2SAT 97
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
[2018-01-16 23:26] VITALS: PULSE 101
[2018-01-16 23:31] VITALS: BMI 35.2
[2018-01-16 23:35] VITALS: O2SAT 98
--- NOTE | 2018-01-16 23:46 | ECHOCS_ITS ---
Reason For Study: Pre Op Procedure This was a 2D Doppler, Color Flow transthoracic echocardiogram. Techncially difficult study, patient was sitting upright in bed due to pain. The study was technically difficult. Contrast injection was performed. Exam performed portable in patient room. Left Ventricle Normal LV size. Left ventricular systolic function is normal. The estimated ejection fraction is 55 %. Unable to assess diastolic dysfunction. No regional wall motion abnormalities noted. Right Ventricle Normal RV size. Normal systolic function. Atria The left atrium is mildly enlarged. Normal right atrium. No doppler evidence for ASD. Mitral Valve There is moderate mitral annular calcification. Extension of the mitral annular calcification onto the posterior mitral valve leaflet. The mitral valve chordae are thickened and/or calcified. Trivial mitral valve insufficiency. Tricuspid Valve Normal tricuspid valve. Trivial tricuspid valve insufficiency. Unable to estimate RV systolic pressure/pulmonary artery pressure due to technically difficult study. Aortic Valve Trisinus/trileaflet aortic valve. Mild diffuse aortic valve thickening. Pulmonic Valve The pulmonic valve is not well visualized. Trivial pulmonic valve insufficiency. Great Vessels Normal sized aortic root. Pericardium/Pleural No pericardial effusion. Medication Diluted definity 2ml given slow IV push to enhance endocardial definition. MMode/2D Measurements & Calculations LVIDd: 5.5 cm IVSd: 1.2 cm LVOT diam: 2.0 cm LVIDs: 4.0 cm LVPWd: 1.1 cm LVOT area: 3.0 cm2 FS: 27.3 % Ao root diam: 3.5 cm LAV(MOD-sp4): 67.6 ml LA A4 area: 21.0 cm2 ACS: 1.7 cm RA A4 area: 16.1 cm2 Doppler Measurements & Calculations MV E max leonor: 161.5 cm/sec Ao V2 max: 194.1 cm/sec LV V1 max: 110.8 cm/sec Ao max P.1 mmHg LV V1 max P.9 mmHg Ao V2 mean: 115.7 cm/sec LV V1 mean P.1 mmHg Ao mean P.5 mmHg LV V1 mean: 65.1 cm/sec Ao V2 VTI: 41.3 cm LV V1 VTI: 25.6 cm BONNIE(I,D): 1.9 cm2 BONNIE(V,D): 1.7 cm2 SV(LVOT): 76.5 ml PA V2 max: 102.1 cm/sec Interpretation Summary The study was technically difficult. Contrast injection was performed. Left ventricular systolic function is normal. The estimated ejection fraction is 55 %. The left atrium is mildly enlarged. There is moderate mitral annular calcification. Extension of the mitral annular calcification onto the posterior mitral valve leaflet. The mitral valve chordae are thickened and/or calcified. Trivial mitral valve insufficiency. Trivial tricuspid valve insufficiency. Mild diffuse aortic valve thickening. Trivial pulmonic valve insufficiency. Unable to estimate RV systolic pressure/pulmonary artery pressure due to technically difficult study. Unable to assess diastolic dysfunction. Ordering Physician: Darwin Lema Referring Physician: Juan Tavarez Performed By: Pa Pennington RCS
[2018-01-16 23:51] VITALS: BMI 35.2
[2018-01-17] VITALS (18 sets, daily range): BP systolic 121–146; BP diastolic 56–96; PULSE 74–102; RESP 14–18; TEMP 36.6–37.1; O2SAT 94–98
[2018-01-17 00:34] LABS: Lactic Acid 0.8 mmol/L (0.4-2.0)
[2018-01-17] MEDS: Heparin Injection (Vial) 5,000 UNIT/ML VIAL 5000 UNIT SC ×4 (00:38→22:41)
[2018-01-17 00:57] LABS: Ferritin 1009 ng/mL (8-252); Iron 12 ug/dL (50-170); Iron Binding Capacity,Total 111 ug/dL (250-450); LDH 132 U/L (84-246); PERCENT IRON SATURATION 10.8 % (15.0-55.0)
--- NOTE | 2018-01-17 01:19 | PCM.RX.CS ---
Consult Pharmacy has been consulted to manage selected antiobiotic: Vancomycin Type of Consult: New start Suspected Infection: Osteomyelitis Prior Doses of Antibiotics Received/Current Regimen: Medications Vancomycin HCl 1,500 mg/ (Dextrose) 530 mls @ 250 mls/hr IV Q24H [place] Vancomycin HCl 1,500 mg/ (Dextrose) 530 mls @ 250 mls/hr IV X1 ONE Stop: 01/17/18 01:37 Last Admin: 01/17/18 01:12 Dose: 250 mls/hr Labs: Sodium 137 mmol/L (136-145) 01/16/18 19:40 Potassium 4.2 mmol/L (3.5-5.1) 01/16/18 19:40 Chloride 106 mmol/L (98-107) 01/16/18 19:40 Carbon Dioxide 23.0 mmol/L (21.0-32.0) 01/16/18 19:40 Anion Gap 8 (5-15) 01/16/18 19:40 BUN 36 mg/dL (7-18) H 01/16/18 19:40 Creatinine 1.76 mg/dL (0.55-1.02) H 01/16/18 19:40 Est GFR (MDRD) Af Amer 38 mL/min (>60) L 01/16/18 19:40 Est GFR (MDRD) Non-Af 31 mL/min (>60) L 01/16/18 19:40 BUN/Creatinine Ratio 20.5 RATIO (10-20) H 01/16/18 19:40 Glucose 141 mg/dL (74-106) H 01/16/18 19:40 Weight used for dosin.8 kg Estimated Creatinine Clearance: 32 Goal Trough: 15-20 mcg/mL Pharmacy Plan for Drug Dosing: Pharmacy Service will continue to monitor and adjust dosing as required. Follow-Up Labs: Trough Vancomycin Labs to be done on [date and time ordered]: 01/19/18 @0030
[2018-01-17 03:09] LABS: Absolute Lymphocyte Count 2.26 X10^3/ul (0.83-4.51); Absolute Neutrophil Count 6.7 X10^3/uL (2.0-7.7); Basophil# 0.04 X10^3/uL; Basophil% 0.4 % (0-1); Eosinophil# 0.16 X10^3/uL; Eosinophils% 1.6 % (0-5); Hematocrit 24.3 % (37-47); Hemoglobin 7.5 g/dl (12.0-15.0); Lymphocyte # 2.26 X10^3/ul (4.0); Lymphocyte % 22.2 % (19-41); Mean Corp Hgb Conc 30.9 g/gl (32-36); Mean Corpuscular Hgb 26.5 pg (27.0-32.0); Mean Corpuscular Volume 85.9 fL (81-99); Mean Platelet Vol. 8.3 fl (6.2-12.0); Monocyte# 0.89 X10^3/uL; Monocyte% 8.7 % (0-10); Neutrophil # 6.72 X10^3/uL (2.7-7.7); Neutrophil % 65.9 % (47-70); Platelet Count 411 K/mm3 (150-450); RBC Distribution Width CV 15.9 % (11.6-14.6); RBC Distribution Width SD 50.2 fl (35.1-43.9); Red Blood Count 2.83 M/mm3 (4.2-5.4); White Blood Count 10.2 K/mm3 (4.4-11.0)
[2018-01-17 03:42] LABS: Anion Gap 11 (5-15); BUN 34 mg/dL (7-18); Calcium,Total 8.8 mg/dL (8.5-10.1); Chloride 104 mmol/L (98-107); Creatinine, Serum 1.62 mg/dL (0.55-1.02); EST Glomerular Filtration Rate 35 mL/min (>60); Est Glom Filt Rate - Afr Amer 42 mL/min (>60); Glucose 167 mg/dL (74-106); Potassium 4.1 mmol/L (3.5-5.1); Sodium Level 137 mmol/L (136-145)
[2018-01-17 04:01] LABS: POSITIVE COUNT NO; POSITIVE DIFFERENTIAL NO; POSITIVE MORPHOLOGY NO
[2018-01-17 06:56] LABS: Hematocrit 27.3 % (37-47); Hemoglobin 8.5 g/dl (12.0-15.0)
[2018-01-17 07:06] LABS: Bedside Glucose 120 mg/dL (70-110)
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
[2018-01-17 08:44] LABS: Hemoglobin A1c 6.1 % (4.2-6.3)
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
[2018-01-17] MEDS: Omega-3 Acid Ethyl Esters 1 GM Capsule PO (09:18)
[2018-01-17] MEDS: Multivitamins,Ther W-Minerals Tablet 1 TABLET PO (09:18)
[2018-01-17] MEDS: Atenolol 50 MG Tablet PO (09:19)
[2018-01-17] MEDS: Allopurinol 300 MG Tablet PO (09:19)
[2018-01-17] MEDS: Gabapentin 300 MG Capsule PO ×3 (09:19→16:51)
[2018-01-17] MEDS: Lisinopril 40 MG Tablet PO ×2 (09:24→22:42)
[2018-01-17] MEDS: Hydroxychloroquine 200 MG Tablet PO (09:24)
[2018-01-17] MEDS: Fluticasone 0.05% 1 SPRAY NASAL.SRY 2 SPRAY NASAL (09:25)
[2018-01-17] MEDS: dilTIAZem CD 180 MG Capsule PO (09:26)
[2018-01-17] MEDS: 0.9% NaCl Peripheral Flush Adult/Peds IV ×3 (09:34→20:00)
[2018-01-17] MEDS: Morphine 2 MG/ML Syringe IV ×2 (10:36→20:00)
[2018-01-17 11:56] LABS: Bedside Glucose 163 mg/dL (70-110)
[2018-01-17] MEDS: Insulin Lispro 100 UNIT/ML INSULN.PEN SQ ×2 (12:21→16:51)
--- NOTE | 2018-01-17 13:02 | CASEMGMT ---
Social Work Note Referral Date: 01/17/18 Date of Intervention: 01/17/18 Informant: Self-Referral; PUJA Reason for Consult: Foot injury Dual insurance; Medicare and Medicaid Information obtained from: Medical record and pt. Pt was alert and oriented. Pt had a blunted affect throughout assessment with very short range of emotions expressed, and no change in tone of voice throughout conversation. Living Arrangements: Pt is presently residing with her mother in one-story handicap accessible home. DME consists of a walker, cane, wheelchair, transfer chair and hospital bed. She reports to be independent with ADLs and is still able to drive. Reports that her son comes out daily to check on her and her mother and assists them with packaging line attendant such as mowing, taking the trash out, grabbing the mail, and changing the cat litter box. Financial: Pt declines financial insecurity and denies needs for education or resources. Education: Pt reports ability to read and write and denies comprehension issues. Social and/or Family Stressors: Presently denies stressors. Makes mention of her son having schizophrenia, but states he is helpful. She would like to return home, but understands she may need to go somewhere at discharge depending on needs. She has been to [facility] and [facility] in the past and does not want to return to either. Would prefer to return home if able. Supports: Pt identifies her mother and her son has her primary supports. Mental Health Hx: Denies diagnoses or symptoms of anxiety/depression. Substance Use Hx: Denies substance use. ASSESSMENT: Pt was pleasant and coherent during assessment. Able to provide necessary information to aid in discharge planning. Confirmed that her PCP is Dr. Newton. She also sees Dr. Diaz and Dr. Martin. Her preferred pharmacy is [facility] in [place]. She has been in SNFs in the past and would prefer to go home at discharge if able. If she needs placement she requested TCU. Placed pt's name on list in the event that this will be needed. SW on Friday to f/ with pt and TCU to confirm. No further needs at this time. PLAN: HANSEL Chow, MANAGER PLAN, LICENSED MENTAL HEALTH COUNSELOR
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
[2018-01-17 17:06] LABS: Bedside Glucose 168 mg/dL (70-110)
[2018-01-17] MEDS: Amitriptyline 25 MG Tablet 75 MG PO (22:40)
[2018-01-17] MEDS: Atorvastatin Calcium 40 MG Tablet PO (22:42)
[2018-01-17] MEDS: traMADol 50 MG Tablet PO (22:48)
[2018-01-17] MEDS: Acetaminophen 325 MG Tablet 650 MG PO (22:48)
[2018-01-17 22:56] LABS: Bedside Glucose 133 mg/dL (70-110)
[2018-01-18] VITALS (12 sets, daily range): BP systolic 117–126; BP diastolic 62–83; PULSE 70–81; RESP 14–20; TEMP 36.7–37; O2SAT 97–100
[2018-01-18 05:51] LABS: Absolute Lymphocyte Count 2.12 X10^3/ul (0.83-4.51); Absolute Neutrophil Count 5.2 X10^3/uL (2.0-7.7); Basophil% 1.1 % (0-1); Eosinophil# 0.25 X10^3/uL; Eosinophils% 2.8 % (0-5); Hematocrit 28.4 % (37-47); Hemoglobin 8.9 g/dl (12.0-15.0); Lymphocyte # 2.12 X10^3/ul (4.0); Lymphocyte % 23.4 % (19-41); Mean Corp Hgb Conc 31.3 g/gl (32-36); Mean Corpuscular Hgb 27.1 pg (27.0-32.0); Mean Corpuscular Volume 86.6 fL (81-99); Mean Platelet Vol. 8.7 fl (6.2-12.0); Monocyte# 1.11 X10^3/uL; Monocyte% 12.3 % (0-10); Neutrophil # 5.22 X10^3/uL (2.7-7.7); Neutrophil % 57.6 % (47-70); Platelet Count 387 K/mm3 (150-450); RBC Distribution Width CV 15.8 % (11.6-14.6); RBC Distribution Width SD 50.3 fl (35.1-43.9); Red Blood Count 3.28 M/mm3 (4.2-5.4); White Blood Count 9.1 K/mm3 (4.4-11.0)
[2018-01-18 06:06] LABS: Anion Gap 11 (5-15); BUN 28 mg/dL (7-18); BUN/Creat Ratio 18.8 RATIO (10-20); Calcium,Total 8.5 mg/dL (8.5-10.1); Chloride 107 mmol/L (98-107); Creatinine, Serum 1.49 mg/dL (0.55-1.02); EST Glomerular Filtration Rate 38 mL/min (>60); Est Glom Filt Rate - Afr Amer 46 mL/min (>60); Estimated Creatinine Clearance 38.06 ml/min; Glucose 111 mg/dL (74-106); Potassium 4.5 mmol/L (3.5-5.1); Sodium Level 136 mmol/L (136-145)
[2018-01-18 06:07] LABS: POSITIVE COUNT NO; POSITIVE DIFFERENTIAL NO; POSITIVE MORPHOLOGY NO
[2018-01-18] MEDS: Heparin Injection (Vial) 5,000 UNIT/ML VIAL 5000 UNIT SC ×3 (06:39→22:19)
[2018-01-18 07:00] LABS: Bedside Glucose 111 mg/dL (70-110)
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
[2018-01-18 08:27] LABS: Haptoglobin 557 mg/dL (34-200)
[2018-01-18] MEDS: Gabapentin 300 MG Capsule PO ×3 (08:57→16:26)
[2018-01-18] MEDS: Allopurinol 300 MG Tablet PO (08:57)
[2018-01-18] MEDS: Multivitamins,Ther W-Minerals Tablet 1 TABLET PO (08:58)
[2018-01-18] MEDS: Omega-3 Acid Ethyl Esters 1 GM Capsule PO (08:58)
[2018-01-18] MEDS: Atenolol 50 MG Tablet PO (08:59)
[2018-01-18] MEDS: dilTIAZem CD 180 MG Capsule PO (08:59)
[2018-01-18] MEDS: Lisinopril 40 MG Tablet PO ×2 (09:00→22:20)
[2018-01-18] MEDS: Hydroxychloroquine 200 MG Tablet PO (09:00)
[2018-01-18] MEDS: Fluticasone 0.05% 1 SPRAY NASAL.SRY 2 SPRAY NASAL (09:00)
[2018-01-18] MEDS: 0.9% NaCl Peripheral Flush Adult/Peds IV ×2 (09:06→22:25)
[2018-01-18 11:31] LABS: Bedside Glucose 110 mg/dL (70-110)
[2018-01-18] MEDS: traMADol 50 MG Tablet PO (12:35)
[2018-01-18 16:31] LABS: Bedside Glucose 117 mg/dL (70-110)
[2018-01-18] MEDS: Amitriptyline 25 MG Tablet 75 MG PO (22:18)
[2018-01-18] MEDS: Atorvastatin Calcium 40 MG Tablet PO (22:19)
[2018-01-18] MEDS: Insulin Lispro 100 UNIT/ML INSULN.PEN SQ (22:19)
[2018-01-19] VITALS (10 sets, daily range): BP systolic 127–135; BP diastolic 61–69; PULSE 68–76; RESP 16–18; TEMP 36.6–36.9; O2SAT 95–97
[2018-01-19 00:31] LABS: Bedside Glucose 158 mg/dL (70-110)
[2018-01-19 01:22] LABS: Vancomycin, Trough Level 18.2 ug/mL (5.0-15.0)
--- NOTE | 2018-01-19 01:49 | PCM.RX.CS ---
Consult Pharmacy has been consulted to manage selected antiobiotic: Vancomycin Type of Consult: Follow-up Suspected Infection: Osteomyelitis Prior Doses of Antibiotics Received/Current Regimen: Medications Vancomycin HCl 1,500 mg/ (Dextrose) 530 mls @ 250 mls/hr IV Q24H [facility] Last Admin: 01/18/18 01:25 Dose: 250 mls/hr Labs: Sodium 136 mmol/L (136-145) 01/18/18 05:15 Potassium 4.5 mmol/L (3.5-5.1) 01/18/18 05:15 Chloride 107 mmol/L (98-107) 01/18/18 05:15 Carbon Dioxide 18.0 mmol/L (21.0-32.0) L 01/18/18 05:15 Anion Gap 11 (5-15) 01/18/18 05:15 BUN 28 mg/dL (7-18) H 01/18/18 05:15 Creatinine 1.49 mg/dL (0.55-1.02) H 01/18/18 05:15 Est GFR (MDRD) Af Amer 46 mL/min (>60) L 01/18/18 05:15 Est GFR (MDRD) Non-Af 38 mL/min (>60) L 01/18/18 05:15 BUN/Creatinine Ratio 18.8 RATIO (10-20) 01/18/18 05:15 Glucose 111 mg/dL (74-106) H 01/18/18 05:15 Vancomycin Trough 18.2 ug/mL (5.0-15.0) H 01/19/18 00:22 Microbiology: Microbiology 01/16/18 23:15 Wound - Ankle Gram Stain - Final 01/16/18 23:15 Wound - Ankle Wound Culture - Preliminary Staphylococcus aureus 01/17/18 11:40 Stool Stool Occult Blood (KHARI) - Final Occult Blood Positive Weight used for dosin.8 kg Estimated Creatinine Clearance: 38 Goal Trough: 15-20 mcg/mL Pharmacy Plan for Drug Dosing: Trough level was 18.2, within target range of 15-20. Continuing with current order, and will redraw trough in four days. Pharmacy Service will continue to monitor and adjust dosing as required. Follow-Up Labs: Trough Vancomycin Labs to be done on [date and time ordered]: 01/23/18 @0030
[2018-01-19] MEDS: traMADol 50 MG Tablet PO ×3 (02:31→21:49)
[2018-01-19] MEDS: 0.9% NaCl Peripheral Flush Adult/Peds IV (02:31)
[2018-01-19] MEDS: Heparin Injection (Vial) 5,000 UNIT/ML VIAL 5000 UNIT SC ×2 (05:32→21:51)
[2018-01-19 06:58] LABS: Anion Gap 8 (5-15); BUN 29 mg/dL (7-18); BUN/Creat Ratio 18.1 RATIO (10-20); Calcium,Total 8.5 mg/dL (8.5-10.1); Chloride 105 mmol/L (98-107); EST Glomerular Filtration Rate 35 mL/min (>60); Est Glom Filt Rate - Afr Amer 42 mL/min (>60); Estimated Creatinine Clearance 35.44 ml/min; Glucose 133 mg/dL (74-106); Potassium 4.6 mmol/L (3.5-5.1); Sodium Level 137 mmol/L (136-145)
[2018-01-19 07:00] LABS: Magnesium 1.6 mg/dL (1.6-2.6)
[2018-01-19 07:06] LABS: Bedside Glucose 127 mg/dL (70-110)
[2018-01-19] MEDS: Allopurinol 300 MG Tablet PO (08:30)
[2018-01-19] MEDS: Gabapentin 300 MG Capsule PO ×3 (08:30→16:53)
[2018-01-19] MEDS: Multivitamins,Ther W-Minerals Tablet 1 TABLET PO (08:30)
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
[2018-01-19] MEDS: dilTIAZem CD 180 MG Capsule PO (10:00)
[2018-01-19] MEDS: Omega-3 Acid Ethyl Esters 1 GM Capsule PO (10:01)
[2018-01-19] MEDS: Hydroxychloroquine 200 MG Tablet PO (10:01)
[2018-01-19] MEDS: Atenolol 50 MG Tablet PO (10:02)
[2018-01-19] MEDS: Lisinopril 40 MG Tablet PO ×2 (10:02→21:50)
[2018-01-19] MEDS: Acetaminophen 325 MG Tablet 650 MG PO (10:03)
[2018-01-19 10:56] LABS: Vitamin B12 578 pg/mL (211-911)
--- NOTE | 2018-01-19 10:57 | CASEMGMT ---
Social Work Phone call to [facility] and they do have a bed available and can accept pt when medically ready. Pt scheduled for surgery today. SW met with pt in room and informed pt that TCU can accept pt. Pt is agreeable to TCU when medically ready. SW to follow for SNF placement. Plan: TCU, when medically ready JULIA Shane
[2018-01-19 11:20] LABS: Bedside Glucose 136 mg/dL (70-110)
--- NOTE | 2018-01-19 12:32 | CON.PCM_ITS ---
Problem List (1) Acute osteomyelitis involving ankle and foot Status: Acute Reason for Consult: osteo Consulted by: Dr. Lema History of Present Illness: The patient is a 57 year old F with DM, had L ankle fracture in October, taken to OR 10/2017, required multiple surgeries after that, now hardware in place. Treated by ID at [facility] 11/2017 for PsA infection with cipro and for cdiff, treated with po vanc. Has been off abx for a few weeks now. Came to hospital with 1-2 weeks of increased LLE pain, redness, swelling, and purulent discharge. Admitted back to [facility], refused BKA. Had Bcx done 01/13, now (+) for MRSA. Admitted here 01/16, surgery planned. Some chills. Full ROS performed and neg except as noted above. - Medical History Past Medical History (Chronic Problems): Chronic Problems (Last Reviewed 01/16/18 @ 23:21 by Darwin Lema MD) Peripheral neuropathy (Chronic) Arthritis (Chronic) Hypertension (Chronic) High cholesterol (Chronic) Hypertension (Chronic) Hyperlipidemia (Chronic) Type 2 diabetes mellitus (Chronic) 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) Uncontrolled type 2 diabetes mellitus (Chronic) Non-pressure chronic ulcer of other part of right foot limited to breakdown of skin (Chronic) Tobacco use disorder (Chronic) Pure hypercholesterolemia (Chronic) History of hypertension (Chronic) Type 2 diabetes mellitus with diabetic polyneuropathy (Chronic) History of gout (Chronic) Obesity (Chronic) COPD (chronic obstructive pulmonary disease) (Chronic) Chronic renal insufficiency, stage III (moderate) (Chronic) Type 2 diabetes mellitus with foot ulcer (Chronic) History of diabetes mellitus, type II (Chronic) Allergies/Adverse Reactions: Allergies aspirin Allergy (Verified 01/13/18 15:24) Hives latex Allergy (Verified 01/13/18 15:24) Hives Penicillins Allergy (Verified 01/16/18 17:49) Hives naproxen [From Aleve] Adverse Reaction (Severe, Verified 01/13/18 15:24) Kidney disease Stage 3 Home Medications: Ambulatory Orders Medication Instructions Recorded Allopurinol 300 mg PO DAILY 12/03/16 Amitriptyline HCl 75 mg PO QHS 12/03/16 Atenolol 50 mg PO DAILY 12/03/16 liraglutide 0.6 mg/0.1 mL (18 mg/3 1.2 mg SC QDAY #9 ml 03/13/ mL) subcutaneous pen injector cholecalciferol (vitamin D3) 2,000 2,000 unit PO DAILY 05/27/17 unit capsule diltiazem CD 180 mg 180 mg PO ONCE 05/27/17 capsule,extended release 24 hr hydroxychloroquine 200 mg tablet 200 mg PO QDAY 05/27/17 lisinopril 40 mg tablet 40 mg PO BID 05/27/17 omega-3 fatty acids 1,000 mg 1,000 mg PO QDAY 05/27/17 capsule sitagliptin 100 mg tablet 100 mg PO QDAY 05/27/17 gabapentin 300 mg capsule 300 mg PO TID cap 08/19/17 ipratropium 20 mcg-albuterol 100 1 inh INHALATION Q6H PRN #4 g 08/22/17 mcg/actuation mist for inhalation mometasone 50 mcg/actuation nasal 2 spray INTRANASAL QDAY #17 g 09/23/17 spray Acetaminophen [Tylenol Arthritis] 1,300 mg PO PRN PRN 01/13/18 Atorvastatin Calcium [Lipitor] 40 mg PO QDAY 01/13/18 Cyclobenzaprine HCl 10 mg PO TID PRN PRN 01/13/18 Multivit-Min/Iron/Folic/Lutein 1 tab PO DAILY 01/13/18 [Centrum Silver Women Tablet] traMADol [Ultram] 50 mg PO TID PRN PRN 01/13/18 - Social History SMOKING STATUS:: Former smoker Vital Signs Temp Pulse Resp BP Pulse Ox 97.8 F 74 16 135/64 H 97 01/19/18 09:52 01/19/18 09:52 01/19/18 09:52 01/19/18 09:52 01/19/18 09:52 Oxygen Delivery Method Room Air Weight: 99 kg Body Mass Index (BMI) 35.2 Microbiology Past 72 Hours 01/16/18 23:15 Gram Stain - Final Wound - Ankle Wound Culture - Final Meth. resistant Staph. aureus 01/16/18 23:45 Blood Culture - Preliminary Blood Culture (Wb) - Left Hand No growth in 48 hours. 01/17/18 11:40 Stool Occult Blood (KHARI) - Final Stool Occult Blood Positive Laboratory Tests Past 24 Hrs 01/16/18 01/19/18 01/19/18 07:15 00:22 05:55 Sodium 137 Potassium 4.6 Chloride 105 Carbon Dioxide 24.0 Anion Gap 8 BUN 29 H Creatinine 1.60 H Estim Creat Clear Calc 35.44 Est GFR (MDRD) Af Amer 42 L Est GFR (MDRD) Non-Af 35 L BUN/Creatinine Ratio 18.1 Glucose 133 H Calcium 8.5 Magnesium Vitamin B12 578 Vancomycin Trough 18.2 H 01/19/18 05:55 Sodium Potassium Chloride Carbon Dioxide Anion Gap BUN Creatinine Estim Creat Clear Calc Est GFR (MDRD) Af Amer Est GFR (MDRD) Non-Af BUN/Creatinine Ratio Glucose Calcium Magnesium 1.6 Vitamin B12 Vancomycin Trough - Other Studies Radiology: [] reviewed Other Studies: [] Route of nutrition/ use of supplements: [] Nutritional Intake: [] IV Site: [] Gardner Catheter: [] - Physical Exam General: Alert, Oriented x3, Cooperative, No apparent distress HEENT: Atraumatic, PERRLA, EOMI Neck: Supple, No Nodes Lungs: Clear to auscultation, Normal air movement Cardiovascular: Regular rate, Regular Rhythm Abdomen: Soft, Non Tender, Non-Distended Extremities: Edema Skin: Incision - foot wrapped IV Site: Peripheral, without redness Musculoskeletal: No Tenderness to Palpation of Joints or Extremities - other than ankle Neurological: Cranial nerves II-XII grossly intact - Assessment/Plan Antibiotics: [] Assessment/Plan: [] Active and Suspected Problems (Last Reviewed 01/16/18 @ 23:21 by Darwin Lema MD) Acute osteomyelitis involving ankle and foot (Acute) 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 No sign of endocarditis on finger/toenails. No spine tenderness. Bcx from 01/16 is neg. Repeat bcx today. Question if anemia could be explained by endocarditis. TTE was done, likely will need YEIMY. Surgery consulted and planning on extensive surgery. BKA may be necessary. Continue vanc. Has nausea with PCN, tolerates cefazolin, amoxicillin with no issue. Narrow meropenem to cefepime given past cx here and at [facility] with Pseudomonas spp. Cr at baseline. Will follow, thank you.
[2018-01-19 17:41] LABS: Bedside Glucose 126 mg/dL (70-110)
[2018-01-19] MEDS: Amitriptyline 25 MG Tablet 75 MG PO (21:50)
[2018-01-19] MEDS: Atorvastatin Calcium 40 MG Tablet PO (21:50)
[2018-01-19] MEDS: Insulin Lispro 100 UNIT/ML INSULN.PEN SQ (22:01)
[2018-01-19 22:16] LABS: Bedside Glucose 160 mg/dL (70-110)
[2018-01-20] VITALS (16 sets, daily range): BP systolic 115–133; BP diastolic 49–91; PULSE 66–87; RESP 16–18; TEMP 36.3–37; O2SAT 94–100; BMI 35.2
--- NOTE | 2018-01-20 | BON_PTH ---
PATIENT: ALEAH BARKER LOC: [facility]#:[id number] AGE/SX: 57/F ROOM: [facility] RE01/16/[address]: Dr. Everett Hillman MD : 1960 BED: 1 DIS: 01/21/2018 SPEC #: [id number] RECD: 01/20/18 14:18 STATUS: ENRICO REPawan #: [id number] ELIAS: 01/20/18 00:[address]: Candi Covington DEPT: SURGICAL PATHOLOGY RECD BY: Demetrius Sparks ENTERED: 01/20/18 14:22 SP TYPE: Bone OTHR DR: Dr. Candi Covington, DPM MD Dr. Pia Barroso MD Dr. Joseph Agyepong, MD Dr. Joshua Blanton, MD Dr. Nicholas F Kotsonis, MD Dr. Robert Leininger, MD Tissues: A - Tibia, NOS B - Bone of ankle, NOS C - Bone of ankle, NOS D - Leg, NOS Procedures: Decalcification bone/plaque Surgery Specimen Level III Comments: @ Ordering doctor for DEC edited from to @ by MARILEE at 01/21/18911 @ Ordering doctor for SUIII edited from to @ bridget HUNT at 01/21/18911 @ Submitting doctor edited from to @ bridget HUNT at 01/21/18911 HEADER OPERATION: Wash out, bone debridement, bone biopsy, left ankle PRE-OP DIAGNOSIS: Acute osteomyelitis, left ankle open fracture status post failed EX FIX and ORIF TISSUE SUBMITTED: A - Bone biopsy left distal tibia, B - Bone biopsy left talus, C - Bone biopsy left medial malleolus, D - Bone biopsy left distal fibula MICROSCOPIC DIAGNOSIS A. Left distal tibia bone, core biopsy: A piece of bone, negative for acute osteomyelitis. B. Left talus bone, core biopsy: A piece of bone, negative for acute osteomyelitis. C. Left medial malleolus bone, biopsy: Pieces of bone with chronic inflammation and reactive changes. Negative for acute osteomyelitis. D. Left distal fibula bone, core biopsy: A piece of bone with acute osteomyelitis. JOSE LUIS:jason 01/23/18 MICROSCOPIC DESCRIPTION Slides are reviewed. GROSS DESCRIPTION A - Received in fixative is one container labeled with the patient's name and designated left distal tibia bone biopsy. The specimen consists of a core biopsy of pérez bone measuring 0.4 cm in length and 0.1 cm in diameter. The specimen is totally submitted in one cassette after decalcification. B - Received in fixative is one container labeled with the patient's name and designated left talus bone biopsy. The specimen consists of a core biopsy of pérez bone measuring 0.5 cm in length and 0.1 cm in diameter. The specimen is totally submitted in one cassette after decalcification. C - Received in fixative is one container labeled with the patient's name and designated bone biopsy left medial malleolus. The specimen consists of two pieces of pérez-pink bone that in aggregate measure 1 x 0.7 x 0.3 cm. The entire specimen is submitted in one cassette after decalcification. D - Received in fixative is one container labeled with the patient's name and designated bone biopsy left distal fibula. The specimen consists of a core biopsy of pérez-white bone measuring 0.5 cm in length and 0.1 cm in diameter. The entire specimen is submitted in one cassette after decalcification. / SJ:rg 01/20/18 TC:2 CPT: 13016 x4, 59597 x4
[2018-01-20 05:45] LABS: Hematocrit 26.6 % (37-47); Hemoglobin 8.4 g/dl (12.0-15.0); Mean Corp Hgb Conc 31.6 g/gl (32-36); Mean Corpuscular Hgb 27.5 pg (27.0-32.0); Mean Corpuscular Volume 87.2 fL (81-99); Mean Platelet Vol. 8.5 fl (6.2-12.0); Platelet Count 465 K/mm3 (150-450); RBC Distribution Width CV 15.4 % (11.6-14.6); RBC Distribution Width SD 47.7 fl (35.1-43.9); Red Blood Count 3.05 M/mm3 (4.2-5.4); White Blood Count 10.2 K/mm3 (4.4-11.0)
--- NOTE | 2018-01-20 05:55 | EKG12_ITS ---
Test Reason : AM EKG Blood Pressure : / mmHG Vent. Rate : 075 BPM Atrial Rate : 075 BPM P-R Int : 166 ms QRS Dur : 100 ms QT Int : 418 ms P-R-T Axes : 027 046 064 degrees QTc Int : 466 ms Sinus rhythm with occasional Premature ventricular complexes Cannot rule out Anterior infarct , age undetermined Abnormal ECG When compared with ECG of 16-JAN-2018 18:44, No significant change was found Confirmed by DAVID HUMPHREY ([id number]), assignment editor BUTCH PATTERSON ([id number]) on 01/27/2018 11:43:54 AM Referred By: Juan Tavarez Confirmed By:DAVID HUMPHREY
[2018-01-20 06:07] LABS: International Normalized Ratio 1.1; Prothrombin Time (Protime)PT. 14.1 SECONDS (11.7-14.9)
[2018-01-20 06:09] LABS: Partial Thromboplast Time 45.6 Seconds (24.1-36.2)
[2018-01-20 06:12] LABS: Anion Gap 9 (5-15); BUN 33 mg/dL (7-18); Calcium,Total 8.7 mg/dL (8.5-10.1); Chloride 105 mmol/L (98-107); Creatinine, Serum 1.74 mg/dL (0.55-1.02); EST Glomerular Filtration Rate 32 mL/min (>60); Est Glom Filt Rate - Afr Amer 38 mL/min (>60); Estimated Creatinine Clearance 32.59 ml/min; Glucose 117 mg/dL (74-106); Sodium Level 137 mmol/L (136-145)
[2018-01-20 06:25] LABS: Scan Indicated on CBC? Y/N NO
[2018-01-20 06:56] LABS: Bedside Glucose 120 mg/dL (70-110)
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
[2018-01-20] MEDS: Atenolol 50 MG Tablet PO (08:29)
--- NOTE | 2018-01-20 09:15 | RAD_ITS ---
STUDY: X-RAY - LEFT ANKLE REASON FOR EXAM: Female, 57 years old. Intraoperative ankle debridement. TECHNIQUE: 1 coned-down intraoperative view(s) of the ankle. COMPARISON: None. FINDINGS: A single view was obtained intraoperatively for debridement. RAD/Ankle 2 Views IMPRESSION: Intraoperative imaging. Electronically Signed: Mahesh Olivia MD at 14:53 EDT Tel [phone], Service support ,
--- NOTE | 2018-01-20 10:55 | PCM.IMDPSTOP ---
Immediate Post-Op Note Date of Procedure: 01/20/18 Primary Surgeon/Physician: Candi Covington DPM policy checker: None Pre-Operative Diagnosis: L ankle open fracture, nonunion, Osteomyelitis vs Charcot Post-Operative Diagnosis: L ankle open fracture, nonunion, Osteomyelitis vs Charcot Surgery/Procedure Performed:: Left ankle wound sharp debridement, excisional to bone. Left tibia bone biopsy. Left talus bone biopsy. Left fibula bone biopsy. Left medial malleolus bone biopsy, debridement Description of Surgical Findings:: see dictation Estimated Blood Loss: minimal Specimen's removed: Left ankle soft tissue and bone - Admit VTE Documentation VTE Present on Admission: No VTE Pharm Prophylaxis ordered?: Yes
--- NOTE | 2018-01-20 10:58 | OP.PN_ITS ---
Immediate Post-Op Note Date of Procedure: 01/20/18 Primary Surgeon/Physician: Candi Covington DPM lay up operator: None Pre-Operative Diagnosis: L ankle open fracture, nonunion, Osteomyelitis vs Charcot Post-Operative Diagnosis: L ankle open fracture, nonunion, Osteomyelitis vs Charcot Surgery/Procedure Performed:: Left ankle wound sharp debridement, excisional to bone. Left tibia bone biopsy. Left talus bone biopsy. Left fibula bone biopsy. Left medial malleolus bone biopsy, debridement Description of Surgical Findings:: see dictation Estimated Blood Loss: minimal Specimen's removed: Left ankle soft tissue and bone - Admit VTE Documentation VTE Present on Admission: No VTE Pharm Prophylaxis ordered?: Yes
--- NOTE | 2018-01-20 11:00 | PCM.OPRPT ---
Report of Operation Date of Procedure: 01/20/18 Pre-Operative Diagnosis: L ankle open fracture, nonunion, Osteomyelitis vs Charcot Post-Operative Diagnosis: L ankle open fracture, nonunion, Osteomyelitis vs Charcot Surgery/Procedure Performed:: Left ankle wound sharp debridement, excisional to bone. Left tibia bone biopsy. Left talus bone biopsy. Left fibula bone biopsy. Left medial malleolus bone biopsy, debridement Description of Surgical Findings:: see dictation Specimen's removed: Left ankle soft tissue and bone Estimated Blood Loss (mL): minimal Description of Procedure: PT is a 57 yo F with multiple medical problems who fell in early October and sustained an open ankle fracture. At an OSH she underwent several washouts, external fixation and ORIF. Her anteromedial wound has not healed. She has had a difficult post operative course that was complicated by c diff and inability to remain NWB LLE. She presented to my office last Friday for a second opinion of BKA vs Limb salvage. After extensive discussion with the patient about the high risk she is for limb loss and what the potential course of limb salvage would be. She agreeed to proceed with limb salvage. She was sent from my office to the ER at [facility] for medical evaluation as she was febrile and shivering in clinic. She was admitted and after informed consent was given we proceeded to the the OR today for Left ankle washout, debridement of soft tissue and bone biopsy. Patient was again seen in the pre-operative area. All risks, complications and alternatives were discussed with the patient. sHe wishes to proceed with the proposed surgery. On December patient was visually and verbally identified in the pre operative holding area. Consent was again reviewed.The left lower extremity was marked as the correct operative leg. The patient was brought to the operating roomand placed on the operating table in normal supine position. After the patient was comfortably sedated by anesthesia a time out was performed and all present were in agreement. The Left lower leg was prepped in the normal sterile fashion. At this time attention was directed to the left anteromedial wound, it was noted to be 9 cm x 6 cm and deep to exposed tibia. The TA tendon was exposed and intact, and surrounded by hypergranular tissue and slight maceration to the wound edges. the erythema and edema had mildly improved since clinic. Using a combination of #15 blade and curettes the wound was sharply excisionally debrided to remove on non-viable and necrotic tissue. Good bleeding tissue was observed. 3L of NSS was used as pulse lavage in the ankle joint and wound. Using a jamshidi needle a bone biopsy was obtained of the left distal tibia of bone that was not exposed and instead accessed through the ankle joint. This was sent for both pathology and micro. Using a fresh jamshidi bone biopsy was then obtained of the left talus and again sent for pathology and micro. Under fluoroscopy the distal fibula fracture fragment was noted as it has loosened hardware and a bent plate., a fresh jamshidi needle was again used for a bone biopsy and sent to pathology and micro. This alllowed for no cross contamination of the specimens. Next the medial malleolar fragment was located on fluoroscopy, using a #15 blade and ronguers this piece was partially excised and sent for pathology and micro. The ankle was then again flushed with NSS. Electrocautery was used to control all bleeders. the wound was dressed with betadine soaked guaze, DSD with a well padded anterior ankle, kerlix and light compression with an macario bandage. The patient's pneumatic cam walker was reapplied. Pt tolerated the procedure and anesthesia well. She was transported by myself and a member of the anesthesia team to the PACU with AVSS and cap refill to all digits of the LLE < 3 seconds. PT will remain in-house for further medical evaluation and iv abx as we await the intraoperative pathology and cultures. PT is to remain in cam walker at all times with strict NWB LLE. Continue QD to BID dressings changes of betadine soaked 4x4, DSD, kerlix and light compression. At the end of the case all needle, sponge and instrument counts were found to be correct. - Admit VTE Documentation VTE Present on Admission: No VTE Pharm Prophylaxis ordered?: Yes
--- NOTE | 2018-01-20 11:35 | CASEMGMT ---
PUJA spoke with Cami in TCU and patient cannot take Victoza while in TCU due to cost. PUJA spoke with physician and patient does not have to be on Victoza and her blood sugars can be monitored with insulin. PUJA left a message for Cami letting her know this information. Plan: TCU when ready. Amanda MONTALVO MSW
[2018-01-20] MEDS: Allopurinol 300 MG Tablet PO (11:36)
[2018-01-20] MEDS: dilTIAZem CD 180 MG Capsule PO (11:36)
[2018-01-20] MEDS: Gabapentin 300 MG Capsule PO ×2 (11:36→16:21)
[2018-01-20] MEDS: Multivitamins,Ther W-Minerals Tablet 1 TABLET PO (11:36)
[2018-01-20] MEDS: Hydroxychloroquine 200 MG Tablet PO (11:36)
[2018-01-20] MEDS: 0.9% Normal Saline 1,000 ML 125 ML IV ×2 (11:37→22:29)
[2018-01-20] MEDS: Omega-3 Acid Ethyl Esters 1 GM Capsule PO (11:38)
[2018-01-20] MEDS: Bupivacaine 0.5% PF 10 ML VIAL (11:49)
[2018-01-20 11:56] LABS: Bedside Glucose 110 mg/dL (70-110)
[2018-01-20] MEDS: traMADol 50 MG Tablet PO ×2 (12:10→20:38)
[2018-01-20 15:09] LABS: Pathologist Review Reviewed
[2018-01-20 15:10] LABS: Pathologist Review Reviewed
[2018-01-20] MEDS: Morphine 2 MG/ML Syringe IV (16:15)
[2018-01-20] MEDS: Insulin Lispro 100 UNIT/ML INSULN.PEN SQ ×2 (16:18→20:44)
[2018-01-20 16:31] LABS: Bedside Glucose 153 mg/dL (70-110)
[2018-01-20] MEDS: Heparin Injection (Vial) 5,000 UNIT/ML VIAL 5000 UNIT SC (20:37)
[2018-01-20] MEDS: Atorvastatin Calcium 40 MG Tablet PO (20:38)
[2018-01-20] MEDS: Amitriptyline 25 MG Tablet 75 MG PO (20:38)
[2018-01-20 20:55] LABS: Bedside Glucose 178 mg/dL (70-110)
[2018-01-21] VITALS (7 sets, daily range): BP systolic 116–142; BP diastolic 59–98; PULSE 74–78; RESP 16–18; TEMP 35.9–36.3; O2SAT 96–98
[2018-01-21 06:54] LABS: Anion Gap 9 (5-15); BUN 30 mg/dL (7-18); Calcium,Total 8.6 mg/dL (8.5-10.1); Chloride 106 mmol/L (98-107); Creatinine, Serum 1.67 mg/dL (0.55-1.02); EST Glomerular Filtration Rate 33 mL/min (>60); Est Glom Filt Rate - Afr Amer 40 mL/min (>60); Estimated Creatinine Clearance 33.96 ml/min; Glucose 133 mg/dL (74-106); Potassium 4.9 mmol/L (3.5-5.1); Sodium Level 135 mmol/L (136-145)
[2018-01-21] MEDS: Heparin Injection (Vial) 5,000 UNIT/ML VIAL 5000 UNIT SC (06:58)
[2018-01-21 07:01] LABS: Hemoglobin 8.6 g/dl (12.0-15.0); Mean Corp Hgb Conc 30.7 g/gl (32-36); Mean Corpuscular Hgb 26.9 pg (27.0-32.0); Mean Corpuscular Volume 87.5 fL (81-99); Mean Platelet Vol. 8.5 fl (6.2-12.0); Platelet Count 456 K/mm3 (150-450); RBC Distribution Width CV 15.4 % (11.6-14.6); RBC Distribution Width SD 48.2 fl (35.1-43.9); White Blood Count 10.6 K/mm3 (4.4-11.0)
[2018-01-21 07:03] LABS: Differential Indicated MANUAL DIFF; POSITIVE COUNT YES; POSITIVE DIFFERENTIAL NO; POSITIVE MORPHOLOGY YES
[2018-01-21 07:05] LABS: Bedside Glucose 137 mg/dL (70-110)
[2018-01-21 07:43] LABS: Basophil 1 % (0-1); Eosinophil 1 % (0-5); Lymphocyte 10 % (19-41); Monocyte 8 % (0-10); Neutrophil-Segmented 80 % (47-70); Platelet Estimate SLT INC (ADEQ); Red Cell Morphology NORM C+C NORMAL (NORM C&C); Total Cells Counted 100 (MANUAL DIFF)
[2018-01-21 07:44] LABS: Absolute Lymphocyte Count 1.06 X10^3/ul (0.83-4.51); Absolute Neutrophil Count 8.5 X10^3/uL (2.0-7.7); Lymphocyte # 1.06 X10^3/ul (4.0); Neutrophil # 8.48 X10^3/uL (2.7-7.7)
[2018-01-21] MEDS: 0.9% Normal Saline 1,000 ML 125 ML IV (08:19)
[2018-01-21] MEDS: traMADol 50 MG Tablet PO (08:39)
[2018-01-21] MEDS: Allopurinol 300 MG Tablet PO (08:41)
[2018-01-21] MEDS: Multivitamins,Ther W-Minerals Tablet 1 TABLET PO (08:41)
[2018-01-21] MEDS: Gabapentin 300 MG Capsule PO ×2 (08:41→13:36)
--- NOTE | 2018-01-21 09:43 | CASEMGMT ---
Patient is ready for d/c to TCU today. SW called Cami and notified her of plan. Amanda MONTALVO MSW
[2018-01-21] MEDS: dilTIAZem CD 180 MG Capsule PO (10:25)
[2018-01-21] MEDS: Atenolol 50 MG Tablet PO (10:25)
[2018-01-21] MEDS: Hydroxychloroquine 200 MG Tablet PO (10:25)
[2018-01-21] MEDS: Morphine 2 MG/ML Syringe IV (10:31)
[2018-01-21] MEDS: 0.9% NaCl Peripheral Flush Adult/Peds IV (10:32)
--- NOTE | 2018-01-21 11:22 | DCINST_ITS ---
- Discharge Diagnoses Current Active Problems: Current Active and Chronic Problems (Last Reviewed 01/16/18 @ 23:21 by Darwin Lema MD) Acute osteomyelitis involving ankle and foot (Acute) You will use the following diet at home:: Calorie/Carbohydrate Controlled (specify 1200, 1400, etc) - 1800 castillo / day, Cardiac Allergies/Adverse Reactions: Allergies aspirin Allergy (Verified 01/13/18 15:24) Hives latex Allergy (Verified 01/13/18 15:24) Hives Penicillins Allergy (Verified 01/16/18 17:49) Hives naproxen [From Aleve] Adverse Reaction (Severe, Verified 01/13/18 15:24) Kidney disease Stage 3 Medications to take at Discharge Allopurinol 300 mg PO DAILY 12/03/16 Amitriptyline HCl 75 mg PO QHS 12/03/16 Atenolol 50 mg PO DAILY 12/03/16 cholecalciferol (vitamin D3) 2,000 unit capsule 2,000 unit PO DAILY 05/27/17 diltiazem CD 180 mg capsule,extended release 24 hr 180 mg PO ONCE 05/27/17 hydroxychloroquine 200 mg tablet 200 mg PO QDAY 05/27/17 lisinopril 40 mg tablet 40 mg PO BID 05/27/17 omega-3 fatty acids 1,000 mg capsule 1,000 mg PO QDAY 05/27/17 sitagliptin 100 mg tablet 100 mg PO QDAY 05/27/17 gabapentin 300 mg capsule 300 mg PO TID cap 08/19/17 ipratropium 20 mcg-albuterol 100 mcg/actuation mist for inhalation 1 inh INHALATION Q6H PRN #4 g 08/22/17 mometasone 50 mcg/actuation nasal spray 2 spray INTRANASAL QDAY #17 g 09/23/17 Atorvastatin Calcium [Lipitor] 40 mg PO QDAY 01/13/18 Cyclobenzaprine HCl 10 mg PO TID PRN PRN 01/13/18 Multivit-Min/Iron/Folic/Lutein [Centrum Silver Women Tablet] 1 tab PO DAILY 01/13/18 Acetaminophen [Tylenol Tablet] 650 mg PO Q6H PRN PRN tablet 01/21/18 Cefepime HCl [Maxipime] 2 gm IV Q12 vial 01/21/18 Insulin Lispro [Humalog KwikPen] See Protocol SQ ACHS #1 insuln.pen 01/21/18 Magnesium Hydroxide [Milk Of Magnesia] 30 ml PO DAILY PRN PRN udc 01/21/18 Vancomycin IV 1,500 mg IV Q24H vial 01/21/18 traMADol [Ultram] 50 mg PO TID PRN PRN 3 Days #9 tab 01/21/18 The following prescriptions were given: Insulin Lispro [Humalog KwikPen] See Protocol SQ ACHS #1 insuln.pen traMADol [Ultram] 50 mg PO TID PRN PRN 3 Days #9 tab PRN Reason: Pain Primary Care Physician: Pia Newton MD [Primary Care Provider] - Please follow up with your Primary Care Physician in: 1-2 weeks Test Results: Test results from this visit will be discussed in further detail at your follow- up appointment, if applicable. Please Follow Up With: Candi Covington DPM When: as directed Please Follow Up With: Leny Jimenez MD When: 3-4 weeks
--- NOTE | 2018-01-21 11:25 | TREXTCAR_ITS ---
Addendum entered and electronically signed by YANIRA ePres 01/21/18 11:38: Code Visit Discharge Diagnoses/Problem List: 1. 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 T2DM, obesity 3. Anemia 4. RA/Lupus 5. HGN 6. Depression 7. Gout 8. COPD 9. CKDIII Original Note: - Diet 01/20/18 11:27 Diet: Calorie Controlled, cardiac Is pt able to select menu?: Yes Diet Comments: No concentrated sweets How many daily calories?: 1800 calorie - Routine Orders/Code Status Suppository Type: Dulcolax 10mg Suppository Frequency: Daily PRN Routine Lab Work: CBC - 3 days, BMP - 3 days Code Status: Full Code - Wound(s) LEFT ANKLE Wound Type: Surgical Incision - Therapies Weight Bearing: Per Podiatry: PT is to remain in cam walker at all times with strict NWB LLE. Continue QD to BID dressings changes of betadine soaked 4x4, DSD, kerlix and light compression. Physical Therapy: Eval and Treat Occupational Therapy: Eval and Treat - Allergies/Procedures Done in Hospital Allergies/Adverse Reactions: Allergies aspirin Allergy (Verified 01/13/18 15:24) Hives latex Allergy (Verified 01/13/18 15:24) Hives Penicillins Allergy (Verified 01/16/18 17:49) Hives naproxen [From Aleve] Adverse Reaction (Severe, Verified 01/13/18 15:24) Kidney disease Stage 3 - Type of Care/Length of Stay Estimated LOS: Convalescent Care Less Than 30 days Type of Care Needed: Skilled Rehab Potential: Fair Prognosis: Fair - Additional Orders/Day of Discharge Day of Discharge: 01/21/18 - Dietary and Speech Recommendations Dietitian Recommendations/Changes: Rec 1 packet Pancho BID for wound healing- order from pharmacy. Continue 1800 calorie controlled diet. Encourage intake of protein at meals. Will add 120 mL Glucerna w/ trays for additional protein. - Follow Up Care Primary Care Physician: Pia Newton MD [Primary Care Provider] - Please follow up with your Primary Care Physician in: 2 weeks Please Follow Up With: Candi Covington DPM When: as directed Please Follow Up With: Leny Jimenez MD When: 2-3 weeks Please Follow Up With: Shimon Bejarano MD When: 1 week
[2018-01-21] MEDS: Omega-3 Acid Ethyl Esters 1 GM Capsule PO (11:38)
[2018-01-21 11:46] LABS: Bedside Glucose 114 mg/dL (70-110)
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
--- NOTE | 2018-01-21 12:53 | PCM.PN.ID ---
Patient Problems: Active and Suspected Problems (Last Reviewed 01/21/18 @ 12:13 by Arslan Robbins MD) Acute osteomyelitis involving ankle and foot (Acute) Subjective: Feeling ok s/p OR. No fever, no n/v/d. - Physical Exam General: Alert, Cooperative, No apparent distress Lungs: Clear to auscultation, Normal air movement Cardiovascular: Regular rate, Regular Rhythm Abdomen: Soft, Non Tender, Non-Distended Skin: Ulcer/ Wound - L ankle, exposed bone Vital Signs Temp Pulse Resp BP Pulse Ox 96.6 F L 75 18 136/98 H 98 01/21/18 10:20 01/21/18 11:13 01/21/18 10:20 01/21/18 10:20 01/21/18 10:20 Oxygen Delivery Method Room Air Weight: 99 kg Body Mass Index (BMI) 35.2 Intake and Output for Last 24 Hours 01/19/18 01/20/18 01/21/18 23:59 23:59 23:59 Intake Total 2047 / 2047 2642 / 2642 1190 / 1190 Output Total 1002 / 1002 1125 / 1125 1100 / 1100 Balance 1045 / 1045 1517 / 1517 90 / 90 Microbiology Past 72 Hours 01/20/18 10:56 Gram Stain - Final Biopsy - Ankle Wound Culture - Preliminary Staphylococcus aureus 01/20/18 10:55 Gram Stain - Final Biopsy - Ankle Wound Culture - Preliminary Gram positive organism 01/20/18 10:53 Gram Stain - Final Biopsy - Ankle Wound Culture - Preliminary No growth-Final to follow 01/20/18 10:51 Gram Stain - Final Biopsy - Ankle Wound Culture - Preliminary Gram Positive Cocci 01/19/18 12:55 Blood Culture - Preliminary Blood Culture (Wb) - Right Hand No growth in 48 hours. 01/16/18 23:15 Gram Stain - Final Wound - Ankle Wound Culture - Final Meth. resistant Staph. aureus 01/16/18 23:45 Blood Culture - Preliminary Blood Culture (Wb) - Left Hand No growth in 48 hours. Laboratory Tests Past 24 Hrs 01/17/18 01/18/18 01/21/18 02:58 05:15 05:10 WBC 10.6 RBC 3.20 L Hgb 8.6 L Hct 28.0 L MCV 87.5 MCH 26.9 L MCHC 30.7 L RDW 15.4 H RDW Differential 48.2 H Plt Count 456 H MPV 8.5 Neut % (Auto) Not Reportable Absolute Neuts (auto) 8.5 H Absolute Lymphs (auto) 1.06 Total Counted 100 Neutrophils % (Manual) 80 H Lymphocytes % (Manual) 10 L Monocytes % (Manual) 8 Eosinophils % (Manual) 1 Basophils % (Manual) 1 Diff Path Review Reviewed Reviewed July foll Platelet Estimate SLT INC RBC Morphology NORM C+C Sodium Potassium Chloride Carbon Dioxide Anion Gap BUN Creatinine Estim Creat Clear Calc Est GFR (MDRD) Af Amer Est GFR (MDRD) Non-Af BUN/Creatinine Ratio Glucose Calcium 01/21/18 05:10 WBC RBC Hgb Hct MCV MCH MCHC RDW RDW Differential Plt Count MPV Neut % (Auto) Absolute Neuts (auto) Absolute Lymphs (auto) Total Counted Neutrophils % (Manual) Lymphocytes % (Manual) Monocytes % (Manual) Eosinophils % (Manual) Basophils % (Manual) Diff Path Review Platelet Estimate RBC Morphology Sodium 135 L Potassium 4.9 Chloride 106 Carbon Dioxide 20.0 L Anion Gap 9 BUN 30 H Creatinine 1.67 H Estim Creat Clear Calc 33.96 Est GFR (MDRD) Af Amer 40 L Est GFR (MDRD) Non-Af 33 L BUN/Creatinine Ratio 18.0 Glucose 133 H Calcium 8.6 POC Glucose 01/21/18 01/21/18 01/20/18 11:37 06:55 20:43 POC Glucose 114 H 137 H 178 H 01/20/18 16:18 POC Glucose 153 H Medical Necessity - Tobacco Use Smoking Status: Former smoker Route of nutrition/ use of supplements: [] Nutritional Intake: [] IV Site: [] Gardner Catheter: [] - Assessment/Plan Antibiotics: [] Assessment/Plan: [] Active and Suspected Problems (Last Reviewed 01/16/18 @ 23:21 by Darwin Lema MD) Acute osteomyelitis involving ankle and foot (Acute) 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 No sign of endocarditis on finger/toenails. No spine tenderness. Bcx from 01/16 is neg. TTE done, no need for YEIMY at this time. Taken to OR for debridement by Dr. Covington 01/20. BKA may be necessary. Continue vanc. Has nausea with PCN, tolerates cefazolin, amoxicillin with no issue. Narrowed meropenem to cefepime given past cx here and at [place] with Pseudomonas spp. Cr at baseline. Plan on at least 6 week course of abx. Will follow.
--- NOTE | 2018-01-21 13:04 | CASEMGMT ---
Patient is ready for d/c to [facility]. SW copied orders. SW spoke with patient and she did not need SW to call anyone for her. Plan: [facility] under skilled level of care. Amanda PATTERSON
--- NOTE | 2018-01-21 13:09 | NURSING ---
student nurse charting reviewed by this rn.
--- NOTE | 2018-01-21 13:41 | DS.PCM_ITS ---
<Cuco Webber - Last Filed: 01/21/18 13:50> Discharge Date and Diagnosis - Problem List Patient Problems: Active and Suspected Problems (Last Reviewed 01/21/18 @ 12:13 by Arslan Robbins MD) Acute osteomyelitis involving ankle and foot (Acute) Date of Admission: 01/16/18 Date of Discharge: 01/21/18 - Primary Discharge Diagnosis Active and Suspected Problems (Last Reviewed 01/21/18 @ 12:13 by Arslan Robbins MD) Acute osteomyelitis involving ankle and foot (Acute) s/p excision/debridement/biopsy 01.20.2018 Charot foot T2DM COPD chronic pain syndrome RA/Lupus HTN HLD Obesity Gout - Secondary Discharge Diagnosis Chronic Problems (Last Reviewed 01/21/18 @ 12:13 by Arslan Robbins MD) Peripheral neuropathy (Chronic) Arthritis (Chronic) Hypertension (Chronic) High cholesterol (Chronic) Hypertension (Chronic) Hyperlipidemia (Chronic) Type 2 diabetes mellitus (Chronic) 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) Uncontrolled type 2 diabetes mellitus (Chronic) Non-pressure chronic ulcer of other part of right foot limited to breakdown of skin (Chronic) Tobacco use disorder (Chronic) Pure hypercholesterolemia (Chronic) History of hypertension (Chronic) Type 2 diabetes mellitus with diabetic polyneuropathy (Chronic) History of gout (Chronic) Obesity (Chronic) COPD (chronic obstructive pulmonary disease) (Chronic) Chronic renal insufficiency, stage III (moderate) (Chronic) Type 2 diabetes mellitus with foot ulcer (Chronic) History of diabetes mellitus, type II (Chronic) Hospital Course and Treatment Imaging Results: RAD/Chest PA and Lateral IMPRESSION: Mild cardiomegaly and probable early pulmonary edema/CHF RAD/Ankle min 3 Views IMPRESSION: Medial malleolus fracture with ankle mortise dislocation. Osseous destruction suggesting osteomyelitis. Extensive soft tissue swelling with soft tissue ulceration. Echo: Interpretation Summary The study was technically difficult. Contrast injection was performed. Left ventricular systolic function is normal. The estimated ejection fraction is 55 %. The left atrium is mildly enlarged. There is moderate mitral annular calcification. Extension of the mitral annular calcification onto the posterior mitral valve leaflet. The mitral valve chordae are thickened and/or calcified. Trivial mitral valve insufficiency. Trivial tricuspid valve insufficiency. Mild diffuse aortic valve thickening. Trivial pulmonic valve insufficiency. Unable to estimate RV systolic pressure/pulmonary artery pressure due to technically difficult study. Unable to assess diastolic dysfunction. RAD/Ankle 2 Views IMPRESSION: Intraoperative imaging. Left leg arterial study: Left leg with no stenosis but mild elevated velocities throughout and all appears to be biphasic flow. Consultations 01/16/18 23:13 Consult: Onc/Wound/associate juvenile court judge Routine Comment: Operations: - - Left ankle excision, debridement, biopsy Procedures: 2-D Echocardiogram Summary of Care Provided: Hospital course: The patient is a 57 year old F past medical history of type 2 diabetes, hypertension, PAD prior right leg stent, hyperlipidemia who presents to the ER with worsening of left lower extremity wound located at the fracture site of the medial malleolus where there was subsequent hardware placement. She presented to podiatry and was sent to the hospital. Patient was reportedly weightbearing in the leg that was she was not supposed to be. The patient had initially gone [facility] and an amputation had been recommended and the patient refused. Podiatry-Dr. Covington was consulted for management of suspected osteomyelitis. She had known history of Pseudomonas and MRSA. She was placed on vancomycin and meropenem. She is admitted to the PCU. Dr. Robbins was consulted for peripheral artery disease, and arterial study was done with findings as above. Patient then underwent a excision, debridement, and biopsy of the affected extremity.Meropenem was narrowed to cefepime. Preliminary cultures show MRSA. Vascular surgery does not recommend any intervention at this time. Following surgery she was advised to be nonweightbearing in her boot. podiatry recommended PT is to remain in cam walker at all times with strict NWB LLE. Continue QD to BID dressings changes of betadine soaked 4x4, DSD, kerlix and light compression. She will continue Vanco and cefepime. She will likely need 6 weeks of antibiotic therapy. She needs shelter for rehabilitation. Infectious disease will follow the patient and as final cultures are obtained antibiotics can be further narrowed. At this time the toes is held and she is placed on sliding scale insulin instead as she cannot have this at shelter facility. Blood cultures are negative. She will need close follow-up with podiatry, and infectious disease. She should also follow-up with her global creative chairman Dr. Rivas. She was discharged to shelter in stable condition. This patient was seen by Cuco Webber PA-C under the supervision of Doctor Rafy. [] Patient Problems: Active and Suspected Problems (Last Reviewed 01/21/18 @ 12:13 by Arslan Robbins MD) Acute osteomyelitis involving ankle and foot (Acute) - Physical Exam General: Alert, Oriented x3, Cooperative HEENT: Atraumatic, PERRLA, EOMI, Normocephalic Neck: Supple, No JVD, Negative Carotid Bruits Lungs: Clear to auscultation, Normal air movement Cardiovascular: Regular rate, No murmurs Abdomen: Bowel Sounds Present, Soft, Non Tender, Obese Extremities: No edema, Capillary Refill Less than 3 Seconds, - - in boot, wound photos reviewed. Skin: No rashes, No breakdown Musculoskeletal: No Tenderness to Palpation of Joints or Extremities Neurological: Cranial nerves II-XII grossly intact Psych/Mental Status: Normal Affect, Appropriate, Alert and oriented to time, place, person, mood and affect Vital Signs Temp Pulse Resp BP Pulse Ox 96.6 F L 75 18 136/98 H 98 01/21/18 10:20 01/21/18 11:13 01/21/18 10:20 01/21/18 10:20 01/21/18 10:20 Oxygen Delivery Method Room Air Weight: 218 lb 4.122 oz Body Mass Index (BMI) 35.2 Intake and Output for Last 24 Hours 01/19/18 01/20/18 01/21/18 23:59 23:59 23:59 Intake Total 7 / 2047 2642 / 2642 2618 / 2618 Output Total 1002 / 1002 1125 / 1125 2024 / 202 Balance 1045 / 1045 1517 / 1517 593 / 593 Microbiology Past 72 Hours 01/20/18 10:56 Gram Stain - Final Biopsy - Ankle Wound Culture - Preliminary Staphylococcus aureus 01/20/18 10:55 Gram Stain - Final Biopsy - Ankle Wound Culture - Preliminary Gram positive organism 01/20/18 10:53 Gram Stain - Final Biopsy - Ankle Wound Culture - Preliminary No growth-Final to follow 01/20/18 10:51 Gram Stain - Final Biopsy - Ankle Wound Culture - Preliminary Gram Positive Cocci 01/19/18 12:55 Blood Culture - Preliminary Blood Culture (Wb) - Right Hand No growth in 48 hours. 01/16/18 23:15 Gram Stain - Final Wound - Ankle Wound Culture - Final Meth. resistant Staph. aureus 01/16/18 23:45 Blood Culture - Preliminary Blood Culture (Wb) - Left Hand No growth in 48 hours. Laboratory Tests Past 24 Hrs 01/17/18 01/18/18 01/21/18 02:58 05:15 05:10 WBC 10.6 RBC 3.20 L Hgb 8.6 L Hct 28.0 L MCV 87.5 MCH 26.9 L MCHC 30.7 L RDW 15.4 H RDW Differential 48.2 H Plt Count 456 H MPV 8.5 Neut % (Auto) Not Reportable Absolute Neuts (auto) 8.5 H Absolute Lymphs (auto) 1.06 Total Counted 100 Neutrophils % (Manual) 80 H Lymphocytes % (Manual) 10 L Monocytes % (Manual) 8 Eosinophils % (Manual) 1 Basophils % (Manual) 1 Diff Path Review Reviewed Reviewed July foll Platelet Estimate SLT INC RBC Morphology NORM C+C Sodium Potassium Chloride Carbon Dioxide Anion Gap BUN Creatinine Estim Creat Clear Calc Est GFR (MDRD) Af Amer Est GFR (MDRD) Non-Af BUN/Creatinine Ratio Glucose Calcium 01/21/18 05:10 WBC RBC Hgb Hct MCV MCH MCHC RDW RDW Differential Plt Count MPV Neut % (Auto) Absolute Neuts (auto) Absolute Lymphs (auto) Total Counted Neutrophils % (Manual) Lymphocytes % (Manual) Monocytes % (Manual) Eosinophils % (Manual) Basophils % (Manual) Diff Path Review Platelet Estimate RBC Morphology Sodium 135 L Potassium 4.9 Chloride 106 Carbon Dioxide 20.0 L Anion Gap 9 BUN 30 H Creatinine 1.67 H Estim Creat Clear Calc 33.96 Est GFR (MDRD) Af Amer 40 L Est GFR (MDRD) Non-Af 33 L BUN/Creatinine Ratio 18.0 Glucose 133 H Calcium 8.6 POC Glucose 01/21/18 01/21/18 01/20/18 11:37 06:55 20:43 POC Glucose 114 H 137 H 178 H 01/20/18 16:18 POC Glucose 153 H Discharge Diet: 1800 Calorie Control Diet Discharge Activity: Use Walker, - - PT is to remain in cam walker at all times with strict NWB LLE. Continue QD to BID dressings changes of betadine soaked 4x4, DSD, kerlix and light compression. Home Medications: Medications to take at Discharge Allopurinol 300 mg PO DAILY 12/03/16 Amitriptyline HCl 75 mg PO QHS 12/03/16 Atenolol 50 mg PO DAILY 12/03/16 cholecalciferol (vitamin D3) 2,000 unit capsule 2,000 unit PO DAILY 05/27/17 diltiazem CD 180 mg capsule,extended release 24 hr 180 mg PO ONCE 05/27/17 hydroxychloroquine 200 mg tablet 200 mg PO QDAY 05/27/17 omega-3 fatty acids 1,000 mg capsule 1,000 mg PO QDAY 05/27/17 sitagliptin 100 mg tablet 100 mg PO QDAY 05/27/17 gabapentin 300 mg capsule 300 mg PO TID cap 08/19/17 ipratropium 20 mcg-albuterol 100 mcg/actuation mist for inhalation 1 inh INHALATION Q6H PRN #4 g 08/22/17 mometasone 50 mcg/actuation nasal spray 2 spray INTRANASAL QDAY #17 g 09/23/17 Atorvastatin Calcium [Lipitor] 40 mg PO QDAY 01/13/18 Cyclobenzaprine HCl 10 mg PO TID PRN PRN 01/13/18 Multivit-Min/Iron/Folic/Lutein [Centrum Silver Women Tablet] 1 tab PO DAILY 01/13/18 Acetaminophen [Tylenol Tablet] 650 mg PO Q6H PRN PRN tablet 01/21/18 Cefepime HCl [Maxipime] 2 gm IV Q12 vial 01/21/18 Insulin Lispro [Humalog KwikPen] See Protocol SQ ACHS #1 insuln.pen 01/21/18 Magnesium Hydroxide [Milk Of Magnesia] 30 ml PO DAILY PRN PRN udc 01/21/18 Vancomycin IV 1,500 mg IV Q24H vial 01/21/18 traMADol [Ultram] 50 mg PO TID PRN PRN 3 Days #9 tab 01/21/18 Following Prescrptions Were Given to Patient: Insulin Lispro [Humalog KwikPen] See Protocol SQ ACHS #1 insuln.pen traMADol [Ultram] 50 mg PO TID PRN PRN 3 Days #9 tab PRN Reason: Pain Primary Care Physician: Pia Newton MD [Primary Care Provider] - Please follow up with your Primary Care Physician in: 2 weeks Please Follow Up With: Candi Covington DPM When: as directed Please Follow Up With: Leny Jimenez MD When: 2-3 weeks Please Follow Up With: Shimon Bejarano MD When: 1 week Disposition: Alf facility Minutes spent on discharge:: 35 Patient Condition:: Stable Medical Necessity - Tobacco Use Smoking Status: Former smoker Meaningful Use Info Meaningful Use Diagnoses (Choose all that apply): None applicable <WendyhilaryEverett Martinez - Last Filed: 01/21/18 15:09> Discharge Date and Diagnosis - Primary Discharge Diagnosis Active and Suspected Problems (Last Reviewed 01/21/18 @ 12:13 by Arslan Robbins MD) Acute osteomyelitis involving ankle and foot (Acute) - Secondary Discharge Diagnosis Chronic Problems (Last Reviewed 01/21/18 @ 12:13 by Arslan Robbins MD) Peripheral neuropathy (Chronic) Arthritis (Chronic) Hypertension (Chronic) High cholesterol (Chronic) Hypertension (Chronic) Hyperlipidemia (Chronic) Type 2 diabetes mellitus (Chronic) 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) Uncontrolled type 2 diabetes mellitus (Chronic) Non-pressure chronic ulcer of other part of right foot limited to breakdown of skin (Chronic) Tobacco use disorder (Chronic) Pure hypercholesterolemia (Chronic) History of hypertension (Chronic) Type 2 diabetes mellitus with diabetic polyneuropathy (Chronic) History of gout (Chronic) Obesity (Chronic) COPD (chronic obstructive pulmonary disease) (Chronic) Chronic renal insufficiency, stage III (moderate) (Chronic) Type 2 diabetes mellitus with foot ulcer (Chronic) History of diabetes mellitus, type II (Chronic) Hospital Course and Treatment Consultations 01/16/18 23:13 Consult: Onc/Wound/associate juvenile court judge Routine Comment: Summary of Care Provided: The patient is a 57 year old F [] - Physical Exam Vital Signs Temp Pulse Resp BP Pulse Ox 96.6 F L 75 18 136/98 H 98 01/21/18 10:20 01/21/18 11:13 01/21/18 10:20 01/21/18 10:20 01/21/18 10:20 Oxygen Delivery Method Room Air Weight: 218 lb 4.122 oz Body Mass Index (BMI) 35.2 Intake and Output for Last 24 Hours 01/19/18 01/20/18 01/21/18 23:59 23:59 23:59 Intake Total 2046 2642 / 2642 2618 / 2618 Output Total 1002 / 1002 1125 / 1125 2024 Balance 1045 / 1045 1517 / 1517 593 / 593 Microbiology Past 72 Hours 01/20/18 10:56 Gram Stain - Final Biopsy - Ankle Wound Culture - Preliminary Staphylococcus aureus 01/20/18 10:55 Gram Stain - Final Biopsy - Ankle Wound Culture - Preliminary Gram positive organism 01/20/18 10:53 Gram Stain - Final Biopsy - Ankle Wound Culture - Preliminary No growth-Final to follow 01/20/18 10:51 Gram Stain - Final Biopsy - Ankle Wound Culture - Preliminary Gram Positive Cocci 01/19/18 12:55 Blood Culture - Preliminary Blood Culture (Wb) - Right Hand No growth in 48 hours. 01/16/18 23:15 Gram Stain - Final Wound - Ankle Wound Culture - Final Meth. resistant Staph. aureus 01/16/18 23:45 Blood Culture - Preliminary Blood Culture (Wb) - Left Hand No growth in 48 hours. Laboratory Tests Past 24 Hrs 01/17/18 01/18/18 01/21/18 02:58 05:15 05:10 WBC 10.6 RBC 3.20 L Hgb 8.6 L Hct 28.0 L MCV 87.5 MCH 26.9 L MCHC 30.7 L RDW 15.4 H RDW Differential 48.2 H Plt Count 456 H MPV 8.5 Neut % (Auto) Not Reportable Absolute Neuts (auto) 8.5 H Absolute Lymphs (auto) 1.06 Total Counted 100 Neutrophils % (Manual) 80 H Lymphocytes % (Manual) 10 L Monocytes % (Manual) 8 Eosinophils % (Manual) 1 Basophils % (Manual) 1 Diff Path Review Reviewed Reviewed July Platelet Estimate SLT INC RBC Morphology NORM C+C Sodium Potassium Chloride Carbon Dioxide Anion Gap BUN Creatinine Estim Creat Clear Calc Est GFR (MDRD) Af Amer Est GFR (MDRD) Non-Af BUN/Creatinine Ratio Glucose Calcium 01/21/18 05:10 WBC RBC Hgb Hct MCV MCH MCHC RDW RDW Differential Plt Count MPV Neut % (Auto) Absolute Neuts (auto) Absolute Lymphs (auto) Total Counted Neutrophils % (Manual) Lymphocytes % (Manual) Monocytes % (Manual) Eosinophils % (Manual) Basophils % (Manual) Diff Path Review Platelet Estimate RBC Morphology Sodium 135 L Potassium 4.9 Chloride 106 Carbon Dioxide 20.0 L Anion Gap 9 BUN 30 H Creatinine 1.67 H Estim Creat Clear Calc 33.96 Est GFR (MDRD) Af Amer 40 L Est GFR (MDRD) Non-Af 33 L BUN/Creatinine Ratio 18.0 Glucose 133 H Calcium 8.6 POC Glucose 01/21/18 01/21/18 01/20/18 11:37 06:55 20:43 POC Glucose 114 H 137 H 178 H 01/20/18 16:18 POC Glucose 153 H Code Visit Addendum: Dr. Hillman I personally examined the patient and reviewed the chart. I agree with the above. 57-year-old female has medical history significant for diabetes, hypertension, and hyperlipidemia presenting with worsening of her left ankle wound which she had fractured about a month and a half prior and had hardware placed. On admission she was found to have osteomyelitis based on ankle x-ray. Wound cultures were growing MRSA and she was started on Vanco and Zosyn on admission. She is disease was consulted and changed antibiotics to vancomycin and cefepime pending further culture data from intraoperative biopsies. She did have surgery on Friday for washout and biopsy. She is to be discharged to the transitional care unit for further physical therapy. Per Dr. Covington, she is to remain in cam walker at all times and strict nonweightbearing of left lower extremity. She is to continue daily to twice daily dressing changes of Betadine soaked 4 x 4's, DST, Kerlix and light compression. Inpatient E&M: [id number] Disch Hosp
--- NOTE | 2018-01-21 15:25 | NURSING ---
wound photo: left medial ankle
[2018-01-22 13:25] LABS: Pathologist Review Reviewed
== END 2018-01-21 15:26 | disposition skilled nursing facility (03) | DRG 463 ==
LOC: ED 21:52 → MS3 22:00 → PCU 01-17 07:22
PROVIDERS: Anesthesiology; Podiatrist Foot & Ankle Surgery; Admitting Provider Hospitalist; Emergency Provider Emergency Medicine; Family Provider Internal Medicine; PCP Internal Medicine; Referring Provider Emergency Medicine; Visit Provider Family Medicine
PROC: 0JBR0ZZ Excision of Left Foot Subcutaneous Tissue and Fascia, Open Approach (ICD-10-PCS; principal; 2018-01-20 09:00)
DX: M86.172 Other acute osteomyelitis, left ankle and foot (principal); L89.613 Pressure ulcer of right heel, stage 3; S82.52XB Displaced fracture of medial malleolus of left tibia, initial encounter for open fracture type I or II; T84.127A Displacement of internal fixation device of bone of left lower leg, initial encounter; L03.116 Cellulitis of left lower limb; E11.69 Type 2 diabetes mellitus with other specified complication; B95.62 Methicillin resistant Staphylococcus aureus infection as the cause of diseases classified elsewhere; E78.5 Hyperlipidemia, unspecified; W19.XXXA Unspecified fall, initial encounter; E11.22 Type 2 diabetes mellitus with diabetic chronic kidney disease; I12.9 Hypertensive chronic kidney disease with stage 1 through stage 4 chronic kidney disease, or unspecified chronic kidney disease; N18.3 Chronic kidney disease, stage 3 (moderate); E66.9 Obesity, unspecified; D64.9 Anemia, unspecified; E11.42 Type 2 diabetes mellitus with diabetic polyneuropathy; J44.9 Chronic obstructive pulmonary disease, unspecified; M10.9 Gout, unspecified; G89.4 Chronic pain syndrome; M06.9 Rheumatoid arthritis, unspecified; F32.9 Major depressive disorder, single episode, unspecified; M14.672 Charcot's joint, left ankle and foot; E11.610 Type 2 diabetes mellitus with diabetic neuropathic arthropathy; E11.51 Type 2 diabetes mellitus with diabetic peripheral angiopathy without gangrene; Z87.891 Personal history of nicotine dependence; Z89.421 Acquired absence of other right toe(s); Z68.35 Body mass index [BMI] 35.0-35.9, adult; Z95.828 Presence of other vascular implants and grafts; Z79.899 Other long term (current) drug therapy; S91.002A Unspecified open wound, left ankle, initial encounter; I25.10 Atherosclerotic heart disease of native coronary artery without angina pectoris; E11.9 Type 2 diabetes mellitus without complications; E78.00 Pure hypercholesterolemia, unspecified; M19.90 Unspecified osteoarthritis, unspecified site; Z86.19 Personal history of other infectious and parasitic diseases; Z96.9 Presence of functional implant, unspecified; X58.XXXA Exposure to other specified factors, initial encounter
CPT/HCPCS: 36415; 71046; 73600; 73610; 73630; 76000; 80048; 80202; 82274; 82607; 82728; 82746; 82962; 83010; 83036; 83540; 83550; 83605; 83615; 83735; 84484; 85014; 85018; 85025; 85027; 85610; 85652; 85730; 86140; 86850; 86900; 86920; 86922; 87015; 87040; 87070; 87075; 87077; 87102; 87116; 87186; 87205; 87206; 88304; 88311; 93005; 93306; 93926; 96365; 96366; 96367; 96374; 96375; 97162; 97165; 97530; 97803; 99281; 99285; J2185; J7030; J7040; P9016; Q9957; A4216; C8929; J2405

== ENCOUNTER 2018-01-21 15:28 | Inpatient (IN) | payer MEDICARE, MEDICAID, SELFPAY ==
[2018-01-21 15:32] VITALS: BP 141/69; PULSE 78; RESP 16; RESP 20; TEMP 36.8; O2SAT 99; BMI 37.3; BMI 37.4
--- NOTE | 2018-01-21 15:32 | NURSING ---
pt arrived from PCU via bed
[2018-01-21 17:00] LABS: Bedside Glucose 112 mg/dL (70-110)
[2018-01-21] MEDS: traMADol 50 MG Tablet PO (18:56)
[2018-01-21 19:35] VITALS: O2SAT 97
[2018-01-21] MEDS: Gabapentin 300 MG Capsule PO (20:00)
[2018-01-21] MEDS: Amitriptyline 25 MG Tablet 75 MG PO (20:00)
[2018-01-21] MEDS: Atorvastatin Calcium 40 MG Tablet PO (20:00)
--- NOTE | 2018-01-21 20:18 | NURSING ---
Pt stating dressing change to Lt foot was only changed once a day on the acute side and it was already changed by wound nurse today. Order states to be changed BID. Pt not wanting dressing changed again this evening d/t being to painful. Dressing remains intact with boot on. Pt resting in bed with call light in reach.
[2018-01-21 20:51] LABS: Bedside Glucose 184 mg/dL (70-110)
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
[2018-01-21] MEDS: 0.9% NaCl PICC Flush 10 ML IV (21:21)
[2018-01-21] MEDS: 0.9% NaCl IVPB Med Flush (250 mL) 15 ML IV (21:22)
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
[2018-01-21] MEDS: Insulin Lispro 100 UNIT/ML INSULN.PEN SC (21:38)
[2018-01-21] MEDS: oxyCODONE 5 MG Tablet PO (23:01)
[2018-01-22] MEDS: dilTIAZem CD 180 MG Capsule PO (05:23)
[2018-01-22] MEDS: Menthol/Lanolin/Calamine/Znox 113 GM Tube 1 APPLIC TOPICAL ×2 (05:23→21:20)
[2018-01-22] MEDS: Atenolol 50 MG Tablet PO (05:23)
[2018-01-22] MEDS: Omega-3 Acid Ethyl Esters 1 GM Capsule PO (05:23)
[2018-01-22] MEDS: LINAGLIPTIN 5 MG TABLET PO (05:23)
[2018-01-22] MEDS: Enoxaparin 30 MG/0.3 ML Syringe SC (05:24)
[2018-01-22] MEDS: oxyCODONE 5 MG Tablet PO ×4 (05:33→23:05)
[2018-01-22] MEDS: Nystatin Powder 15gm Bottle 1 APPLIC TOPICAL ×2 (05:58→21:21)
[2018-01-22 06:12] LABS: Absolute Lymphocyte Count 2.44 X10^3/ul (0.83-4.51); Absolute Neutrophil Count 6.8 X10^3/uL (2.0-7.7); Basophil# 0.06 X10^3/uL; Basophil% 0.5 % (0-1); Eosinophil# 0.28 X10^3/uL; Eosinophils% 2.6 % (0-5); Hematocrit 26.1 % (37-47); Hemoglobin 8.2 g/dl (12.0-15.0); Lymphocyte # 2.44 X10^3/ul (4.0); Lymphocyte % 22.2 % (19-41); Mean Corp Hgb Conc 31.4 g/gl (32-36); Mean Corpuscular Volume 85.9 fL (81-99); Mean Platelet Vol. 8.2 fl (6.2-12.0); Monocyte# 1.19 X10^3/uL; Monocyte% 10.8 % (0-10); Neutrophil # 6.77 X10^3/uL (2.7-7.7); Neutrophil % 61.7 % (47-70); Platelet Count 395 K/mm3 (150-450); RBC Distribution Width CV 15.7 % (11.6-14.6); RBC Distribution Width SD 49.5 fl (35.1-43.9); Red Blood Count 3.04 M/mm3 (4.2-5.4)
[2018-01-22 06:26] LABS: POSITIVE COUNT YES; POSITIVE DIFFERENTIAL NO; POSITIVE MORPHOLOGY YES
[2018-01-22 06:34] LABS: Anion Gap 10 (5-15); BUN 39 mg/dL (7-18); BUN/Creat Ratio 23.2 RATIO (10-20); Calcium,Total 8.7 mg/dL (8.5-10.1); Chloride 107 mmol/L (98-107); Creatinine, Serum 1.68 mg/dL (0.55-1.02); EST Glomerular Filtration Rate 33 mL/min (>60); Est Glom Filt Rate - Afr Amer 40 mL/min (>60); Estimated Creatinine Clearance 33.75 ml/min; Glucose 122 mg/dL (74-106); Potassium 5.2 mmol/L (3.5-5.1); Sodium Level 137 mmol/L (136-145)
[2018-01-22 07:01] LABS: Bedside Glucose 108 mg/dL (70-110)
[2018-01-22] MEDS: Glucerna Shake 120 ML LIQUID PO ×3 (09:24→16:49)
[2018-01-22] MEDS: Multivitamins,Ther W-Minerals Tablet 1 TABLET PO (09:33)
[2018-01-22] MEDS: Hydroxychloroquine 200 MG Tablet PO (09:33)
[2018-01-22] MEDS: Allopurinol 300 MG Tablet PO (09:33)
[2018-01-22] MEDS: Gabapentin 300 MG Capsule PO ×3 (09:33→16:49)
--- NOTE | 2018-01-22 11:01 | PN.ID_ITS ---
Patient Problems: Active and Suspected Problems (Last Reviewed 01/21/18 @ 12:13 by Arslan Robbins MD) Open left ankle fracture (Acute) Anemia (Acute) Subjective: Pt with new severe L shoulder and elbow pain. No trauma. Has h/o inflammatory arthritis but not in shoulder. No fever. - Physical Exam General: Alert, Cooperative, - - in pain Lungs: Clear to auscultation, Normal air movement Cardiovascular: Tachycardic Abdomen: Soft, Non Tender, Non-Distended Extremities: - - Moderate L shoulder and elbow pain, mild swelling/warmth. Very limited ability to move LUE due to pain. Skin: Ulcer/ Wound - L ankle wrapped Vital Signs Temp Pulse Resp BP Pulse Ox 98.3 F 78 16 141/69 H 97 01/21/18 15:32 01/21/18 15:32 01/21/18 15:32 01/21/18 15:32 01/21/18 19:35 Oxygen Delivery Method Room Air Weight: 105.1 kg Body Mass Index (BMI) 37.3 Intake and Output for Last 24 Hours 01/20/18 01/21/18 01/22/18 23:59 23:59 23:59 Intake Total 360 / 360 240 / 240 Balance 360 / 360 240 / 240 Laboratory Tests Past 24 Hrs 01/22/18 01/22/18 05:20 05:20 WBC 11.0 RBC 3.04 L Hgb 8.2 L Hct 26.1 L MCV 85.9 MCH 27.0 MCHC 31.4 L RDW 15.7 H RDW Differential 49.5 H Plt Count 395 MPV 8.2 Immature Gran % (Auto) 2.200 H Neut % (Auto) 61.7 Lymph % (Auto) 22.2 Metcalfe % (Auto) 10.8 H Eos % (Auto) 2.6 Baso % (Auto) 0.5 Absolute Neuts (auto) 6.8 Absolute Lymphs (auto) 2.44 Total Counted Not Reportable Diff Path Review July Sodium 137 Potassium 5.2 H Chloride 107 Carbon Dioxide 20.0 L Anion Gap 10 BUN 39 H Creatinine 1.68 H Estim Creat Clear Calc 33.75 Est GFR (MDRD) Af Amer 40 L Est GFR (MDRD) Non-Af 33 L BUN/Creatinine Ratio 23.2 H Glucose 122 H Calcium 8.7 POC Glucose 01/22/18 01/21/18 01/21/18 06:31 20:43 16:51 POC Glucose 108 184 H 112 H Medical Necessity - Tobacco Use Smoking Status: Former smoker Tobacco Use: Non-smoker Route of nutrition/ use of supplements: [] Nutritional Intake: [] IV Site: [] Gardner Catheter: [] - Assessment/Plan Antibiotics: [] Assessment/Plan: [] Active and Suspected Problems (Last Reviewed 01/21/18 @ 12:13 by Arslan Robbins MD) Open left ankle fracture (Acute) Anemia (Acute) 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 No sign of endocarditis on finger/toenails. No spine tenderness. Bcx from 01/16 is neg. TTE done, no need for YEIMY at this time. Taken to OR for debridement by Dr. Covington 01/20. BKA may be necessary. Continue vanc. Has nausea with PCN, tolerates cefazolin, amoxicillin with no issue. Narrowed meropenem to cefepime given past cx here and at [place] with Pseudomonas spp. Cr at baseline. Plan on at least 6 week course of abx. Could consider adding rifampin, but it would interact with several of her medications. She will need picc, will order for RUE. New severe L shoulder and elbow pain - septic arthritis would seem less likely to develop after almost a week of negative bcx. Will order xrays and consult ortho for eval. Will follow. D/w nursing.
[2018-01-22 11:16] LABS: Bedside Glucose 209 mg/dL (70-110)
[2018-01-22] MEDS: Tuberculin,Purif.prot.deriv. 50 TU/ML Vial 5 ML ID (11:26)
--- NOTE | 2018-01-22 12:01 | RAD_ITS ---
STUDY: X-RAY - LEFT ELBOW REASON FOR EXAM: Female, 57 years old. Elbow pain. TECHNIQUE: AP and lateral view(s) of the elbow. COMPARISON: None. FINDINGS: Normal visualized humerus, radius and ulna. Normal radiocapitellar and ulnotrochlear articulations. Joint effusion. RAD/Elbow 2 Views IMPRESSION: Joint effusion. Electronically Signed: Mahesh Olivia MD at 14:40 EDT Tel [phone], Service support ,
--- NOTE | 2018-01-22 12:01 | RAD_ITS ---
STUDY: X-RAY - LEFT SHOULDER REASON FOR EXAM: Female, 57 years old. Pain. Limited range of motion. TECHNIQUE: 2 view(s) of the shoulder. COMPARISON: None. FINDINGS: Normal glenohumeral articulation. There is degenerative arthrosis of the acromioclavicular joint without inferior osseous spur formation. Normal acromion. Normal humeral head and visualized proximal humerus. The soft tissue structures are unremarkable. Normal visualized pulmonary apex. RAD/Shoulder min 2 Views IMPRESSION: Arthrosis of the acromioclavicular joint. Electronically Signed: Mahesh Olivia MD at 14:40 EDT Tel [phone], Service support ,
[2018-01-22 13:32] LABS: Pathologist Review Reviewed
[2018-01-22] MEDS: Sodium Polystyrene Sulfonate 15 GM/60 ML UDC 30 GM PO (14:38)
[2018-01-22 15:38] VITALS: BP 109/72; PULSE 76; RESP 14; TEMP 36.9; O2SAT 94
--- NOTE | 2018-01-22 16:19 | NURSING ---
wound photo: left medial ankle
[2018-01-22] MEDS: Senna/Docusate Sodium 1 Tablet 2 TABLET PO (16:50)
[2018-01-22 17:16] LABS: Bedside Glucose 164 mg/dL (70-110)
[2018-01-22 21:16] LABS: Bedside Glucose 166 mg/dL (70-110)
[2018-01-22] MEDS: Amitriptyline 25 MG Tablet 75 MG PO (21:20)
[2018-01-22] MEDS: Atorvastatin Calcium 40 MG Tablet PO (21:20)
[2018-01-22] MEDS: 0.9% NaCl IVPB Med Flush (250 mL) 15 ML IV (23:10)
[2018-01-22] MEDS: 0.9% NaCl PICC Flush 10 ML IV (23:10)
--- NOTE | 2018-01-23 02:08 | NURSING ---
Pt remains in contact precautions this shift due to MRSA in wound. All care provided in room.
[2018-01-23] MEDS: Menthol/Lanolin/Calamine/Znox 113 GM Tube 1 APPLIC TOPICAL ×2 (05:53→21:24)
[2018-01-23] MEDS: dilTIAZem CD 180 MG Capsule PO (05:53)
[2018-01-23] MEDS: Omega-3 Acid Ethyl Esters 1 GM Capsule PO (05:54)
[2018-01-23] MEDS: Nystatin Powder 15gm Bottle 1 APPLIC TOPICAL ×2 (05:54→21:24)
[2018-01-23] MEDS: LINAGLIPTIN 5 MG TABLET PO (05:55)
[2018-01-23] MEDS: Atenolol 50 MG Tablet PO (05:55)
[2018-01-23] MEDS: Enoxaparin 30 MG/0.3 ML Syringe SC (05:57)
[2018-01-23 06:24] LABS: Anion Gap 11 (5-15); BUN 48 mg/dL (7-18); BUN/Creat Ratio 28.2 RATIO (10-20); Calcium,Total 8.7 mg/dL (8.5-10.1); Chloride 105 mmol/L (98-107); EST Glomerular Filtration Rate 33 mL/min (>60); Est Glom Filt Rate - Afr Amer 39 mL/min (>60); Estimated Creatinine Clearance 33.36 ml/min; Glucose 111 mg/dL (74-106); Potassium 4.5 mmol/L (3.5-5.1); Sodium Level 136 mmol/L (136-145)
[2018-01-23 06:35] LABS: Bedside Glucose 119 mg/dL (70-110)
[2018-01-23] MEDS: traMADol 50 MG Tablet PO ×2 (09:18→17:14)
[2018-01-23] MEDS: Acetaminophen 500 MG Tablet 1000 MG PO (09:19)
[2018-01-23] MEDS: Gabapentin 300 MG Capsule PO ×3 (09:20→17:14)
[2018-01-23] MEDS: Multivitamins,Ther W-Minerals Tablet 1 TABLET PO (09:20)
[2018-01-23] MEDS: Iron Polysaccharide Complex 150 MG CAPSULE PO (09:20)
[2018-01-23] MEDS: Hydroxychloroquine 200 MG Tablet PO (09:21)
[2018-01-23] MEDS: Allopurinol 300 MG Tablet PO (09:22)
[2018-01-23] MEDS: Glucerna Shake 120 ML LIQUID PO ×3 (09:25→17:14)
[2018-01-23] MEDS: 0.9% NaCl PICC Flush 10 ML IV ×2 (11:15→21:27)
[2018-01-23 11:26] LABS: Bedside Glucose 113 mg/dL (70-110)
--- NOTE | 2018-01-23 13:02 | PN.ID_ITS ---
Patient Problems: Active and Suspected Problems (Last Reviewed 01/21/18 @ 12:13 by Arslan Robbins MD) Open left ankle fracture (Acute) Anemia (Acute) Subjective: LUE feeling better back on colchicine. Overall doing well, no fever. - Physical Exam General: Alert, Cooperative, No apparent distress Lungs: Clear to auscultation, Normal air movement Cardiovascular: Regular rate, Regular Rhythm Abdomen: Soft, Non Tender, Non-Distended Extremities: - - Much improved L shoulder and elbow pain Skin: Ulcer/ Wound - L ankle wrapped Vital Signs Temp Pulse Resp BP Pulse Ox 98.4 F 76 14 109/72 94 01/22/18 15:38 01/22/18 15:38 01/22/18 15:38 01/22/18 15:38 01/22/18 15:38 Oxygen Delivery Method Room Air Weight: 105.1 kg Body Mass Index (BMI) 37.3 Intake and Output for Last 24 Hours 01/21/18 01/22/18 01/23/18 23:59 23:59 23:59 Intake Total 360 / 360 900 / 900 440 / 440 Balance 360 / 360 900 / 900 440 / 440 Laboratory Tests Past 24 Hrs 01/22/18 01/23/18 05:20 05:42 Diff Path Review Reviewed Sodium 136 Potassium 4.5 Chloride 105 Carbon Dioxide 20.0 L Anion Gap 11 BUN 48 H Creatinine 1.70 H Estim Creat Clear Calc 33.36 Est GFR (MDRD) Af Amer 39 L Est GFR (MDRD) Non-Af 33 L BUN/Creatinine Ratio 28.2 H Glucose 111 H Calcium 8.7 POC Glucose 01/23/18 01/23/18 01/22/18 11:19 06:29 21:03 POC Glucose 113 H 119 H 166 H 01/22/18 16:55 POC Glucose 164 H Medical Necessity - Tobacco Use Smoking Status: Former smoker Tobacco Use: Non-smoker Route of nutrition/ use of supplements: [] Nutritional Intake: [] IV Site: [] Gardner Catheter: [] - Assessment/Plan Antibiotics: [] Assessment/Plan: [] Active and Suspected Problems (Last Reviewed 01/21/18 @ 12:13 by Arslan Robbins MD) Open left ankle fracture (Acute) Anemia (Acute) 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 No sign of endocarditis on finger/toenails. No spine tenderness. Bcx from 01/16 is neg. TTE done, no need for YEIMY at this time. Taken to OR for debridement by Dr. Covington 01/20. BKA may be necessary. Continue vanc. Has nausea with PCN, tolerates cefazolin, amoxicillin with no issue. Narrowed jonathan penem to cefepime given past cx here and at [place] with Pseudomonas spp. Cr at baseline. Plan on at least 6 week course of iv abx and then indefinite course with po given infected hardware. Could consider adding rifampin, but it would interact with several of her medications. New severe L shoulder and elbow pain - septic arthritis would seem less likely to develop after almost a week of negative bcx. Reviewed xrays. Much improved today with colchicine. Will cancel ortho eval for now. Will follow.
[2018-01-23 16:00] VITALS: BP 152/79; PULSE 62; RESP 20; TEMP 36; O2SAT 99
[2018-01-23 17:11] LABS: Bedside Glucose 99 mg/dL (70-110)
[2018-01-23] MEDS: Senna/Docusate Sodium 1 Tablet 2 TABLET PO (17:15)
[2018-01-23] MEDS: 0.9% NaCl IVPB Med Flush (250 mL) 15 ML IV (21:26)
[2018-01-23] MEDS: Amitriptyline 25 MG Tablet 75 MG PO (21:26)
[2018-01-23] MEDS: Atorvastatin Calcium 40 MG Tablet PO (21:26)
[2018-01-23 21:56] LABS: Bedside Glucose 150 mg/dL (70-110)
[2018-01-24 00:24] LABS: Vancomycin, Trough Level 33.9 ug/mL (5.0-15.0)
--- NOTE | 2018-01-24 01:39 | NURSING ---
Pt remains in contact precautions this shift due to MRSA in wound. All care provided in room.
--- NOTE | 2018-01-24 04:54 | PCM.RX.CS ---
Consult Pharmacy has been consulted to manage selected antiobiotic: Vancomycin Type of Consult: Follow-up Suspected Infection: Skin/Soft tissue Labs: Sodium 136 mmol/L (136-145) 01/23/18 05:42 Potassium 4.5 mmol/L (3.5-5.1) 01/23/18 05:42 Chloride 105 mmol/L (98-107) 01/23/18 05:42 Carbon Dioxide 20.0 mmol/L (21.0-32.0) L 01/23/18 05:42 Anion Gap 11 (5-15) 01/23/18 05:42 BUN 48 mg/dL (7-18) H 01/23/18 05:42 Creatinine 1.70 mg/dL (0.55-1.02) H 01/23/18 05:42 Est GFR (MDRD) Af Amer 39 mL/min (>60) L 01/23/18 05:42 Est GFR (MDRD) Non-Af 33 mL/min (>60) L 01/23/18 05:42 BUN/Creatinine Ratio 28.2 RATIO (10-20) H 01/23/18 05:42 Glucose 111 mg/dL (74-106) H 01/23/18 05:42 Vancomycin Trough 33.9 ug/mL (5.0-15.0) H 01/23/18 23:38 Goal Trough: 15-20 mcg/mL Pharmacy Plan for Drug Dosing: Pharmacy Service will continue to monitor and adjust dosing as required. TROUGH 33.9, HOLD DOSE AND DRAW RANDOM TROUGH ON 01/24 AND REVIEW BY PHARMACY AT THAT TIME Follow-Up Labs: Trough Vancomycin Labs to be done on [date and time ordered]: 01/24 @ 7525
[2018-01-24] MEDS: Menthol/Lanolin/Calamine/Znox 113 GM Tube 1 APPLIC TOPICAL ×2 (06:01→20:12)
[2018-01-24] MEDS: Nystatin Powder 15gm Bottle 1 APPLIC TOPICAL ×2 (06:03→20:12)
[2018-01-24] MEDS: Omega-3 Acid Ethyl Esters 1 GM Capsule PO (06:05)
[2018-01-24] MEDS: LINAGLIPTIN 5 MG TABLET PO (06:05)
[2018-01-24] MEDS: Atenolol 50 MG Tablet PO (06:05)
[2018-01-24] MEDS: dilTIAZem CD 180 MG Capsule PO (06:05)
[2018-01-24] MEDS: Enoxaparin 30 MG/0.3 ML Syringe SC (06:05)
[2018-01-24 07:06] LABS: Bedside Glucose 101 mg/dL (70-110)
[2018-01-24] MEDS: Glucerna Shake 120 ML LIQUID PO ×3 (08:31→17:10)
[2018-01-24] MEDS: Multivitamins,Ther W-Minerals Tablet 1 TABLET PO (08:35)
[2018-01-24] MEDS: Iron Polysaccharide Complex 150 MG CAPSULE PO (08:35)
[2018-01-24] MEDS: Gabapentin 300 MG Capsule PO ×3 (08:35→17:11)
[2018-01-24] MEDS: Hydroxychloroquine 200 MG Tablet PO (08:35)
[2018-01-24] MEDS: Allopurinol 300 MG Tablet PO (08:35)
[2018-01-24] MEDS: 0.9% NaCl PICC Flush 10 ML IV ×3 (09:30→21:00)
--- NOTE | 2018-01-24 09:31 | NURSING ---
pt remains in isolation for MRSA in wound, all treatments provided in room
[2018-01-24 09:53] VITALS: PULSE 66; O2SAT 97
[2018-01-24] MEDS: oxyCODONE 5 MG Tablet PO ×2 (10:16→20:20)
[2018-01-24 11:21] LABS: Bedside Glucose 118 mg/dL (70-110)
[2018-01-24 15:24] VITALS: BP 120/72; PULSE 74; RESP 20; TEMP 35.6; O2SAT 100
[2018-01-24 16:55] LABS: Bedside Glucose 124 mg/dL (70-110)
[2018-01-24] MEDS: Senna/Docusate Sodium 1 Tablet 2 TABLET PO (17:12)
[2018-01-24] MEDS: Atorvastatin Calcium 40 MG Tablet PO (20:11)
[2018-01-24] MEDS: Amitriptyline 25 MG Tablet 75 MG PO (20:11)
[2018-01-24 20:41] LABS: Bedside Glucose 152 mg/dL (70-110)
[2018-01-24] MEDS: 0.9% NaCl IVPB Med Flush (250 mL) 15 ML IV (21:01)
--- NOTE | 2018-01-24 23:31 | NURSING ---
All care provided in room d/t pt remains in precautions.
[2018-01-25 00:01] LABS: Vancomycin, Random Level 27.1 ug/mL (0.0-15.0)
[2018-01-25] MEDS: Enoxaparin 30 MG/0.3 ML Syringe SC (05:29)
[2018-01-25] MEDS: Omega-3 Acid Ethyl Esters 1 GM Capsule PO (05:29)
[2018-01-25] MEDS: dilTIAZem CD 180 MG Capsule PO (05:30)
[2018-01-25] MEDS: Atenolol 50 MG Tablet PO (05:30)
[2018-01-25] MEDS: LINAGLIPTIN 5 MG TABLET PO (05:30)
[2018-01-25] MEDS: oxyCODONE 5 MG Tablet PO ×2 (05:32→17:47)
[2018-01-25] MEDS: Menthol/Lanolin/Calamine/Znox 113 GM Tube 1 APPLIC TOPICAL ×2 (05:36→19:55)
[2018-01-25] MEDS: Nystatin Powder 15gm Bottle 1 APPLIC TOPICAL ×2 (05:36→19:55)
[2018-01-25 06:55] LABS: Bedside Glucose 110 mg/dL (70-110)
[2018-01-25] MEDS: Allopurinol 300 MG Tablet PO (07:54)
[2018-01-25] MEDS: Multivitamins,Ther W-Minerals Tablet 1 TABLET PO (07:55)
[2018-01-25] MEDS: Gabapentin 300 MG Capsule PO ×3 (07:55→16:38)
[2018-01-25] MEDS: Hydroxychloroquine 200 MG Tablet PO (07:55)
[2018-01-25] MEDS: Iron Polysaccharide Complex 150 MG CAPSULE PO (07:55)
[2018-01-25] MEDS: Glucerna Shake 120 ML LIQUID PO ×3 (07:56→16:39)
[2018-01-25] MEDS: 0.9% NaCl PICC Flush 10 ML IV ×3 (09:37→21:21)
--- NOTE | 2018-01-25 09:38 | NURSING ---
Pt remains in isolation, all treatments provided in room
[2018-01-25 09:58] VITALS: PULSE 68; RESP 18
[2018-01-25 15:50] VITALS: BP 134/62; PULSE 70; RESP 20; TEMP 36.4; O2SAT 99
[2018-01-25] MEDS: Atorvastatin Calcium 40 MG Tablet PO (19:53)
[2018-01-25] MEDS: Amitriptyline 25 MG Tablet 75 MG PO (19:53)
[2018-01-25] MEDS: 0.9% NaCl IVPB Med Flush (250 mL) 15 ML IV (21:21)
[2018-01-25 23:43] LABS: Vancomycin, Random Level 21.2 ug/mL (0.0-15.0)
[2018-01-26] MEDS: Atenolol 50 MG Tablet PO (04:38)
[2018-01-26] MEDS: Omega-3 Acid Ethyl Esters 1 GM Capsule PO (04:38)
[2018-01-26] MEDS: dilTIAZem CD 180 MG Capsule PO (04:38)
[2018-01-26] MEDS: LINAGLIPTIN 5 MG TABLET PO (04:38)
[2018-01-26] MEDS: Enoxaparin 30 MG/0.3 ML Syringe SC (04:38)
[2018-01-26] MEDS: Menthol/Lanolin/Calamine/Znox 113 GM Tube 1 APPLIC TOPICAL ×2 (04:39→21:18)
[2018-01-26] MEDS: Nystatin Powder 15gm Bottle 1 APPLIC TOPICAL ×2 (04:39→21:18)
[2018-01-26 06:36] LABS: Bedside Glucose 108 mg/dL (70-110)
[2018-01-26] MEDS: Gabapentin 300 MG Capsule PO ×3 (09:09→17:41)
[2018-01-26] MEDS: Hydroxychloroquine 200 MG Tablet PO (09:10)
[2018-01-26] MEDS: Multivitamins,Ther W-Minerals Tablet 1 TABLET PO (09:10)
[2018-01-26] MEDS: Iron Polysaccharide Complex 150 MG CAPSULE PO (09:10)
[2018-01-26] MEDS: Allopurinol 300 MG Tablet PO (09:11)
[2018-01-26] MEDS: Glucerna Shake 120 ML LIQUID PO ×3 (09:14→17:40)
[2018-01-26] MEDS: oxyCODONE 5 MG Tablet PO (09:19)
--- NOTE | 2018-01-26 09:48 | NURSING ---
Per Infection control, okay for patient to be in modified contact precautions. Housekeeping notified to deep clean room.
--- NOTE | 2018-01-26 09:56 | NURSING ---
NO for podiatry consult.
--- NOTE | 2018-01-26 13:39 | NURSING ---
wound photo: left medial ankle
--- NOTE | 2018-01-26 15:02 | NURSING ---
Appt with Dr. Covington at [facility] rescheduled for Tuesday 01/30 at 1045, patient to find own transportation.
--- NOTE | 2018-01-26 15:07 | PN.ID_ITS ---
Patient Problems: Active and Suspected Problems (Last Reviewed 01/21/18 @ 12:13 by Arslan Robbins MD) Open left ankle fracture (Acute) Anemia (Acute) Subjective: LUE feeling better. L ankle sore, no fever, no n/v/d - Physical Exam General: Alert, Cooperative, No apparent distress Lungs: Clear to auscultation, Normal air movement Cardiovascular: Regular rate, Regular Rhythm Abdomen: Soft, Non Tender, Non-Distended Skin: Ulcer/ Wound - L ankle, reviewed photo Vital Signs Temp Pulse Resp BP Pulse Ox 97.5 F L 70 20 H 134/62 H 99 01/25/18 15:50 01/25/18 15:50 01/25/18 15:50 01/25/18 15:50 01/25/18 15:50 Oxygen Delivery Method Room Air Weight: 105.1 kg Body Mass Index (BMI) 37.3 Intake and Output for Last 24 Hours 01/24/18 01/25/18 01/26/18 23:59 23:59 23:59 Intake Total 880 / 880 840 / 840 480 / 480 Balance 880 / 880 840 / 840 480 / 480 Laboratory Tests Past 24 Hrs 01/25/18 22:47 Random Vancomycin 21.2 H POC Glucose 01/26/18 06:18 POC Glucose 108 Medical Necessity - Tobacco Use Smoking Status: Former smoker Tobacco Use: Non-smoker Route of nutrition/ use of supplements: [] Nutritional Intake: [] IV Site: [] Gardner Catheter: [] - Assessment/Plan Antibiotics: [] Assessment/Plan: [] Active and Suspected Problems (Last Reviewed 01/21/18 @ 12:13 by Arslan Robbins MD) Open left ankle fracture (Acute) Anemia (Acute) 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 No sign of endocarditis on finger/toenails. No spine tenderness. Bcx from 01/16 is neg. TTE done, no need for YEIMY at this time. Taken to OR for debridement by Dr. Covington 01/20. BKA may be necessary. Continue vanc. Has nausea with PCN, tolerates cefazolin, amoxicillin with no issue. Narrowed meropenem to cefepime given past cx here and at [place] with Pseudomonas spp. Cr at baseline. Plan on at least 6 week course of iv abx and then indefinite course with po given infected hardware. Could consider adding rifampin, but it would interact with several of her medications. Will follow.
--- NOTE | 2018-01-26 15:11 | NURSING ---
Linens changed at this time and pt assisted onto BSC. Pt made phone call to family to see about transport for appointment on Friday.
[2018-01-26 15:12] VITALS: BP 123/61; PULSE 77; RESP 18; TEMP 35.2; O2SAT 94
--- NOTE | 2018-01-26 18:39 | NURSING ---
Pt has c/o RLS, Dr. Elziondo notified, NO for requip 0.5mg PO daily PRN.
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
[2018-01-26] MEDS: Amitriptyline 25 MG Tablet 75 MG PO (21:17)
[2018-01-26] MEDS: Atorvastatin Calcium 40 MG Tablet PO (21:17)
[2018-01-26] MEDS: 0.9% NaCl IVPB Med Flush (250 mL) 15 ML IV (21:19)
[2018-01-26] MEDS: 0.9% NaCl PICC Flush 10 ML IV (21:19)
[2018-01-26 23:45] LABS: Vancomycin, Random Level 14.7 ug/mL (0.0-15.0)
--- NOTE | 2018-01-27 00:18 | PCM.RX.CS ---
Consult Pharmacy has been consulted to manage selected antiobiotic: Vancomycin Type of Consult: Follow-up Suspected Infection: Skin/Soft tissue Labs: Sodium 136 mmol/L (136-145) 01/23/18 05:42 Potassium 4.5 mmol/L (3.5-5.1) 01/23/18 05:42 Chloride 105 mmol/L (98-107) 01/23/18 05:42 Carbon Dioxide 20.0 mmol/L (21.0-32.0) L 01/23/18 05:42 Anion Gap 11 (5-15) 01/23/18 05:42 BUN 48 mg/dL (7-18) H 01/23/18 05:42 Creatinine 1.70 mg/dL (0.55-1.02) H 01/23/18 05:42 Est GFR (MDRD) Af Amer 39 mL/min (>60) L 01/23/18 05:42 Est GFR (MDRD) Non-Af 33 mL/min (>60) L 01/23/18 05:42 BUN/Creatinine Ratio 28.2 RATIO (10-20) H 01/23/18 05:42 Glucose 111 mg/dL (74-106) H 01/23/18 05:42 Vancomycin Trough 33.9 ug/mL (5.0-15.0) H 01/23/18 23:38 Random Vancomycin 14.7 ug/mL (0.0-15.0) 01/26/18 23:00 Goal Trough: 15-20 mcg/mL Pharmacy Plan for Drug Dosing: Pharmacy Service will continue to monitor and adjust dosing as required. START NEW DOSE 750MG Q24 HOURS BASED ON RANDOM VANCO LEVEL OF 14.7 Follow-Up Labs: Trough Vancomycin Labs to be done on [date and time ordered]: 01/29 @ 7959
[2018-01-27] MEDS: oxyCODONE 5 MG Tablet PO (00:41)
[2018-01-27] MEDS: dilTIAZem CD 180 MG Capsule PO (05:45)
[2018-01-27] MEDS: Enoxaparin 30 MG/0.3 ML Syringe SC (05:45)
[2018-01-27] MEDS: LINAGLIPTIN 5 MG TABLET PO (05:45)
[2018-01-27] MEDS: Omega-3 Acid Ethyl Esters 1 GM Capsule PO (05:45)
[2018-01-27] MEDS: Atenolol 50 MG Tablet PO (05:45)
[2018-01-27] MEDS: Nystatin Powder 15gm Bottle 1 APPLIC TOPICAL ×2 (05:47→21:27)
[2018-01-27] MEDS: Menthol/Lanolin/Calamine/Znox 113 GM Tube 1 APPLIC TOPICAL ×2 (05:48→21:25)
[2018-01-27 06:45] LABS: Bedside Glucose 138 mg/dL (70-110)
[2018-01-27] MEDS: Gabapentin 300 MG Capsule PO ×3 (07:43→17:17)
[2018-01-27] MEDS: Glucerna Shake 120 ML LIQUID PO ×3 (07:43→17:17)
[2018-01-27] MEDS: Allopurinol 300 MG Tablet PO (07:43)
[2018-01-27] MEDS: Hydroxychloroquine 200 MG Tablet PO (07:43)
[2018-01-27] MEDS: Iron Polysaccharide Complex 150 MG CAPSULE PO (07:43)
[2018-01-27] MEDS: Multivitamins,Ther W-Minerals Tablet 1 TABLET PO (07:43)
--- NOTE | 2018-01-27 09:12 | PCM.RX.CS ---
Consult Pharmacy has been consulted to manage selected antiobiotic: Vancomycin Type of Consult: Follow-up Suspected Infection: Osteomyelitis Prior Doses of Antibiotics Received/Current Regimen: vancomycin 750mg given at 01/27/18 at 0036 Labs: Sodium 136 mmol/L (136-145) 01/23/18 05:42 Potassium 4.5 mmol/L (3.5-5.1) 01/23/18 05:42 Chloride 105 mmol/L (98-107) 01/23/18 05:42 Carbon Dioxide 20.0 mmol/L (21.0-32.0) L 01/23/18 05:42 Anion Gap 11 (5-15) 01/23/18 05:42 BUN 48 mg/dL (7-18) H 01/23/18 05:42 Creatinine 1.70 mg/dL (0.55-1.02) H 01/23/18 05:42 Est GFR (MDRD) Af Amer 39 mL/min (>60) L 01/23/18 05:42 Est GFR (MDRD) Non-Af 33 mL/min (>60) L 01/23/18 05:42 BUN/Creatinine Ratio 28.2 RATIO (10-20) H 01/23/18 05:42 Glucose 111 mg/dL (74-106) H 01/23/18 05:42 Vancomycin Trough 33.9 ug/mL (5.0-15.0) H 01/23/18 23:38 Random Vancomycin 14.7 ug/mL (0.0-15.0) 01/26/18 23:00 Goal Trough: 15-20 mcg/mL Pharmacy Plan for Drug Dosing: Vancomycin levels were elevated with random level down to 14.7 mg/L on 01/26 at 2300. Given that elevated vancomycin level took several days to return to therapeutic range, will d/c q24 hour vancomycin order and dose based on random levels for now. Will check random vanc level 01/28 at 0030 (~24 hours after dose given on 01/27) to determine if dose needed at 24 hours. Will also check BMP with random vanc level. Since vancomycin level took several days to come down to therapeutic range, will check status of renal function as last serum creatinine is from 01/23/18. Pharmacy Service will continue to monitor and adjust dosing as required. Follow-Up Labs: Trough Vancomycin - random level 01/28 0030, Trough Other - BMP
[2018-01-27 16:00] VITALS: BP 130/67; PULSE 72; RESP 20; TEMP 36.3; O2SAT 98
--- NOTE | 2018-01-27 17:04 | CHAPLAIN ---
Type of Pastoral Visit ___ Initial Visit _x__ Follow-up Visit ___ On-call Visit ___ General Patient Visit ___ Spiritual Assessment ___ Family Conference ___ Bereavement ___ Rapid Response ___ Code Blue ___ Other (describe below) Pastoral Care Referral From _x__ Patient ___ Family ___ Nurse ___ Physician ___ Field Geologist ___ Order Clerk ___ Other (describe below) Sacrament/Intervention _x__ Active listening ___ Anointing ___ Scientologist ___ Bereavement ___ Communion _x__ Kaylie exploration ___ _x__ Life review _x__ Prayer ___ Reconciliation ___ Sacrament of Sick _x__ Supportive presence ___ Wedding ___ Other (describe below) Pastoral Comments patient has concerns for her son with mental health issues; pt is also concerned about an elderly mother; pt has some hope for improvement in her foot but is also considering what she might have to undergo with an amputation; pt was expressive and talkative; pt given time to talk, process, and consider her needs and options for care
[2018-01-27] MEDS: 0.9% NaCl PICC Flush 10 ML IV (21:27)
[2018-01-27] MEDS: Amitriptyline 25 MG Tablet 75 MG PO (21:27)
[2018-01-27] MEDS: Atorvastatin Calcium 40 MG Tablet PO (21:27)
[2018-01-28 01:27] LABS: Vancomycin, Trough Level 18.5 ug/mL (5.0-15.0)
[2018-01-28 05:08] LABS: Anion Gap 11 (5-15); BUN 74 mg/dL (7-18); BUN/Creat Ratio 43.8 RATIO (10-20); Calcium,Total 8.9 mg/dL (8.5-10.1); Chloride 107 mmol/L (98-107); Creatinine, Serum 1.69 mg/dL (0.55-1.02); EST Glomerular Filtration Rate 33 mL/min (>60); Est Glom Filt Rate - Afr Amer 40 mL/min (>60); Estimated Creatinine Clearance 33.55 ml/min; Glucose 141 mg/dL (74-106); Potassium 5.1 mmol/L (3.5-5.1); Sodium Level 139 mmol/L (136-145)
[2018-01-28] MEDS: Atenolol 50 MG Tablet PO (05:51)
[2018-01-28] MEDS: dilTIAZem CD 180 MG Capsule PO (05:51)
[2018-01-28] MEDS: LINAGLIPTIN 5 MG TABLET PO (05:51)
[2018-01-28] MEDS: Omega-3 Acid Ethyl Esters 1 GM Capsule PO (05:51)
[2018-01-28] MEDS: Nystatin Powder 15gm Bottle 1 APPLIC TOPICAL ×2 (05:51→20:52)
[2018-01-28] MEDS: Menthol/Lanolin/Calamine/Znox 113 GM Tube 1 APPLIC TOPICAL ×2 (05:51→20:51)
[2018-01-28] MEDS: Enoxaparin 30 MG/0.3 ML Syringe SC (05:52)
[2018-01-28] MEDS: Senna/Docusate Sodium 1 Tablet 2 TABLET PO ×2 (05:52→17:45)
[2018-01-28] MEDS: Polyethylene Glycol 3350 17 GM PACKET PO (05:52)
[2018-01-28 06:31] LABS: Bedside Glucose 130 mg/dL (70-110)
[2018-01-28] MEDS: oxyCODONE 5 MG Tablet PO (06:40)
[2018-01-28] MEDS: Allopurinol 300 MG Tablet PO (07:53)
[2018-01-28] MEDS: Multivitamins,Ther W-Minerals Tablet 1 TABLET PO (07:53)
[2018-01-28] MEDS: Hydroxychloroquine 200 MG Tablet PO (07:53)
[2018-01-28] MEDS: Gabapentin 300 MG Capsule PO ×3 (07:54→17:45)
[2018-01-28] MEDS: Iron Polysaccharide Complex 150 MG CAPSULE PO (07:54)
[2018-01-28] MEDS: Glucerna Shake 120 ML LIQUID PO ×3 (07:54→17:45)
--- NOTE | 2018-01-28 08:37 | PCM.RX.CS ---
Consult Pharmacy has been consulted to manage selected antiobiotic: Vancomycin Type of Consult: Follow-up Suspected Infection: Osteomyelitis Prior Doses of Antibiotics Received/Current Regimen: 8 Labs: Sodium 139 mmol/L (136-145) 01/28/18 00:40 Potassium 5.1 mmol/L (3.5-5.1) 01/28/18 00:40 Chloride 107 mmol/L (98-107) 01/28/18 00:40 Carbon Dioxide 21.0 mmol/L (21.0-32.0) 01/28/18 00:40 Anion Gap 11 (5-15) 01/28/18 00:40 BUN 74 mg/dL (7-18) H 01/28/18 00:40 Creatinine 1.69 mg/dL (0.55-1.02) H 01/28/18 00:40 Est GFR (MDRD) Af Amer 40 mL/min (>60) L 01/28/18 00:40 Est GFR (MDRD) Non-Af 33 mL/min (>60) L 01/28/18 00:40 BUN/Creatinine Ratio 43.8 RATIO (10-20) H 01/28/18 00:40 Glucose 141 mg/dL (74-106) H 01/28/18 00:40 Vancomycin Trough 18.5 ug/mL (5.0-15.0) H 01/28/18 00:40 Random Vancomycin 14.7 ug/mL (0.0-15.0) 01/26/18 23:00 Weight used for dosin.4 kg Estimated Creatinine Clearance: 33.5 Goal Trough: 15-20 mcg/mL - BASED ON TROUGH OF 18.5, 1X DOSE OF 750MG AND REDRAW RANDOM LEVEL IN 24HRS Pharmacy Plan for Drug Dosing: Pharmacy Service will continue to monitor and adjust dosing as required.
[2018-01-28] MEDS: 0.9% NaCl PICC Flush 10 ML IV ×2 (08:51→10:21)
--- NOTE | 2018-01-28 09:22 | CASEMGMT ---
Addendum entered by Diana Cantu 01/28/18 09:29: Resident also currently pending PASSPORT approval. Original Note: Plan of care meeting held. Resident present, no support person present at this time. Resident plans to discharge to home with mother and son at time of discharge. No discharge date set at this time. Resident to continue with further care and treatment on the Transitional Care Unit at this time. Resident declining for this child protective services social worker to contact resident family in regards to team meeting. Support given. Will continue to follow. Diana DUMONT, CAR RUNNER
[2018-01-28 10:27] VITALS: PULSE 62
[2018-01-28 10:51] LABS: Hemoglobin A1c 5.6 % (4.2-6.3)
[2018-01-28 15:53] VITALS: BP 143/70; PULSE 74; RESP 20; TEMP 36; O2SAT 99
--- NOTE | 2018-01-28 16:37 | PCM.PN.ID ---
Patient Problems: Active and Suspected Problems (Last Reviewed 01/21/18 @ 12:13 by Arslan Robbins MD) Open left ankle fracture (Acute) Anemia (Acute) Subjective: Feeling ok, no fever, pain controlled - Physical Exam General: Alert, Cooperative, No apparent distress Lungs: Normal air movement Cardiovascular: Regular rate, Regular Rhythm Abdomen: Soft, Non-Distended Skin: Ulcer/ Wound - L ankle wrapped Vital Signs Temp Pulse Resp BP Pulse Ox 96.8 F L 74 20 H 143/70 H 99 01/28/18 15:53 01/28/18 15:53 01/28/18 15:53 01/28/18 15:53 01/28/18 15:53 Oxygen Delivery Method Room Air Weight: 105.4 kg Body Mass Index (BMI) 37.3 Intake and Output for Last 24 Hours 01/26/18 01/27/18 01/28/18 23:59 23:59 23:59 Intake Total 1320 / 1320 360 / 360 480 / 480 Balance 1320 / 1320 360 / 360 480 / 480 Laboratory Tests Past 24 Hrs 01/22/18 01/28/18 01/28/18 05:20 00:40 00:40 Sodium 139 Potassium 5.1 Chloride 107 Carbon Dioxide 21.0 Anion Gap 11 BUN 74 H Creatinine 1.69 H Estim Creat Clear Calc 33.55 Est GFR (MDRD) Af Amer 40 L Est GFR (MDRD) Non-Af 33 L BUN/Creatinine Ratio 43.8 H Glucose 141 H Hemoglobin A1c 5.6 Calcium 8.9 Vancomycin Trough 18.5 H Blood Type Antibody Screen 01/28/18 13:10 Sodium Potassium Chloride Carbon Dioxide Anion Gap BUN Creatinine Estim Creat Clear Calc Est GFR (MDRD) Af Amer Est GFR (MDRD) Non-Af BUN/Creatinine Ratio Glucose Hemoglobin A1c Calcium Vancomycin Trough Blood Type O NEGATIVE Antibody Screen NEGATIVE POC Glucose 01/28/18 06:15 POC Glucose 130 H Medical Necessity - Tobacco Use Smoking Status: Former smoker Tobacco Use: Non-smoker Route of nutrition/ use of supplements: [] Nutritional Intake: [] IV Site: [] Gardner Catheter: [] - Assessment/Plan Antibiotics: [] Assessment/Plan: [] Active and Suspected Problems (Last Reviewed 01/21/18 @ 12:13 by Arslan Robbins MD) Open left ankle fracture (Acute) Anemia (Acute) 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 No sign of endocarditis on finger/toenails. No spine tenderness. Bcx from 01/16 is neg. TTE done, no need for YEIMY at this time. Taken to OR for debridement by Dr. Covington 01/20. BKA may be necessary. Continue vanc. Has nausea with PCN, tolerates cefazolin, amoxicillin with no issue. Narrowed meropenem to cefepime given past cx here and at [place] with Pseudomonas spp. Cr at baseline. Plan on at least 6 week course of iv abx and then indefinite course with po given infected hardware. Stop date for vanc/cefepime planned for 03/03/18. Weekly bmp, cbc, esr, and vanc trough while on iv abx. After finishing iv abx, plan will be for indefinite course of po doxy 100mg bid. Will follow.
--- NOTE | 2018-01-28 16:53 | CASEMGMT ---
Brief interview for mental status (BIMS) and resident mood interview (PHQ-9) completed on this day. BIMS score 14/15. PHQ-9 score 09/24
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
[2018-01-28] MEDS: Amitriptyline 25 MG Tablet 75 MG PO (20:51)
[2018-01-28] MEDS: Atorvastatin Calcium 40 MG Tablet PO (20:51)
[2018-01-28] MEDS: Pramipexole Di-HCl 0.25 MG Tablet PO (20:52)
--- NOTE | 2018-01-28 20:55 | NURSING ---
Pt given prn mirapex 0.25mg per request for c/o restless legs. Dr. Goode in this evening and spoke to pt for awhile. Pt very pleased with this and with care received. Continuing to monitor.
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
--- NOTE | 2018-01-28 21:19 | NURSING ---
Dr Covington on unit at this time. Labs ordered for morning at this time.
--- NOTE | 2018-01-28 22:07 | NURSING ---
Addendum entered by Kathy Turk 01/29/18 01:33: Cathflo unsuccessful. Glassworker Dayami RN started IV to R william. Original Note: This RN entered to give evening IV maxipime. PICC line unable to flush. Dr Elizondo notified. N.O. for cathflo. Okay per Dr Elizondo to repeat if first dose ineffective.
[2018-01-28] MEDS: Alteplase 2 MG/2 ML Vial IV (22:44)
[2018-01-29] MEDS: 0.9% NaCl PICC Flush 10 ML IV (01:21)
[2018-01-29] MEDS: Atenolol 50 MG Tablet PO (04:32)
[2018-01-29] MEDS: dilTIAZem CD 180 MG Capsule PO (04:32)
[2018-01-29 06:12] LABS: Anion Gap 9 (5-15); BUN 74 mg/dL (7-18); BUN/Creat Ratio 43.3 RATIO (10-20); Calcium,Total 9.1 mg/dL (8.5-10.1); Chloride 108 mmol/L (98-107); Creatinine, Serum 1.71 mg/dL (0.55-1.02); EST Glomerular Filtration Rate 32 mL/min (>60); Est Glom Filt Rate - Afr Amer 39 mL/min (>60); Estimated Creatinine Clearance 33.16 ml/min; Glucose 115 mg/dL (74-106); Potassium 5.1 mmol/L (3.5-5.1); Sodium Level 139 mmol/L (136-145)
[2018-01-29 06:16] LABS: International Normalized Ratio 1.2; Prothrombin Time (Protime)PT. 15.2 SECONDS (11.7-14.9)
[2018-01-29 06:25] LABS: Absolute Lymphocyte Count 2.28 X10^3/ul (0.83-4.51); Absolute Neutrophil Count 4.4 X10^3/uL (2.0-7.7); Basophil# 0.08 X10^3/uL; Eosinophil# 0.27 X10^3/uL; Eosinophils% 3.4 % (0-5); Hematocrit 25.3 % (37-47); Hemoglobin 7.7 g/dl (12.0-15.0); Lymphocyte # 2.28 X10^3/ul (4.0); Lymphocyte % 28.6 % (19-41); Mean Corp Hgb Conc 30.4 g/gl (32-36); Mean Corpuscular Hgb 26.1 pg (27.0-32.0); Mean Corpuscular Volume 85.8 fL (81-99); Mean Platelet Vol. 8.7 fl (6.2-12.0); Monocyte# 0.83 X10^3/uL; Monocyte% 10.4 % (0-10); Neutrophil # 4.42 X10^3/uL (2.7-7.7); Neutrophil % 55.3 % (47-70); Platelet Count 305 K/mm3 (150-450); RBC Distribution Width CV 15.5 % (11.6-14.6); RBC Distribution Width SD 48.2 fl (35.1-43.9); Red Blood Count 2.95 M/mm3 (4.2-5.4)
[2018-01-29 06:34] LABS: POSITIVE COUNT NO; POSITIVE DIFFERENTIAL NO; POSITIVE MORPHOLOGY NO
[2018-01-29 06:56] LABS: Bedside Glucose 136 mg/dL (70-110)
--- NOTE | 2018-01-29 07:30 | NURSING ---
pt taken to surgery
[2018-01-29 08:37] LABS: Vancomycin, Random Level 19.2 ug/mL (0.0-15.0)
--- NOTE | 2018-01-29 10:18 | PCM.RX.CS ---
Consult Pharmacy has been consulted to manage selected antiobiotic: Vancomycin Type of Consult: Follow-up Suspected Infection: Osteomyelitis Prior Doses of Antibiotics Received/Current Regimen: VANCOMYCIN 750MG IV X1 01/28/18 @0851 Labs: Sodium 139 mmol/L (136-145) 01/29/18 05:30 Potassium 5.1 mmol/L (3.5-5.1) 01/29/18 05:30 Chloride 108 mmol/L (98-107) H 01/29/18 05:30 Carbon Dioxide 22.0 mmol/L (21.0-32.0) 01/29/18 05:30 Anion Gap 9 (5-15) 01/29/18 05:30 BUN 74 mg/dL (7-18) H 01/29/18 05:30 Creatinine 1.71 mg/dL (0.55-1.02) H 01/29/18 05:30 Est GFR (MDRD) Af Amer 39 mL/min (>60) L 01/29/18 05:30 Est GFR (MDRD) Non-Af 32 mL/min (>60) L 01/29/18 05:30 BUN/Creatinine Ratio 43.3 RATIO (10-20) H 01/29/18 05:30 Glucose 115 mg/dL (74-106) H 01/29/18 05:30 Vancomycin Trough 18.5 ug/mL (5.0-15.0) H 01/28/18 00:40 Random Vancomycin 19.2 ug/mL (0.0-15.0) H 01/29/18 08:00 Goal Trough: 15-20 mcg/mL Pharmacy Plan for Drug Dosing: A random vancomycin trough was drawn 01/29/18 @0800, which resulted in a value of 19.2 (23hrs from last dose given). Since the patient had a random trough <20, will plan on a 1x dose of vancomycin today. Although the random level is <20, it is on the upper end, likely the patient is beginning to accumulate again. Will give a reduced dose of 500mg x1 today, and assess the level tomorrow. The patient may qualify for 500mg Q24hrs depending on her trough trends. For now, will continue to dose vancomycin based on random levels. PLAN/RECOMMENDATIONS 1. Vancomycin 500mg IV x1 2. Random trough scheduled for 01/30/18 @1100 3. Pharmacy Service will continue to monitor and adjust dosing as required.
--- NOTE | 2018-01-29 15:51 | PCM.IMDPSTOP ---
Immediate Post-Op Note Date of Procedure: 01/29/18 Primary Surgeon/Physician: Candi Covington DPM finishing operator: Ashutosh Gutierrez Pre-Operative Diagnosis: Left ankle open fracture; painful/broken hardware; acute osteomyelitis left distal fibula Post-Operative Diagnosis: same Surgery/Procedure Performed:: Left ankle hardware removal, debridement of soft tissue to bone, debridement fibula bone, bone biopsy fibula, debridement and bone biopsy of medial tibia, application of external fixation Description of Surgical Findings:: see dictation Estimated Blood Loss: 300mL Specimen's removed: L distal fibula (path and cx); L fibula clearing fragment (path and cx); L exposed medial tibia (path and cx); hardware explanted in total Drains: daniel L lateral ankle Type of Anesthesia:: Spinal General Anesthesia - Spinal converted to LMA - Admit VTE Documentation VTE Present on Admission: No VTE Mechan Device Prophylaxis: SCD's, Knee High MARLYS Velasquez
--- NOTE | 2018-01-29 15:55 | OP.PN_ITS ---
Immediate Post-Op Note Date of Procedure: 01/29/18 Primary Surgeon/Physician: Candi Covington DPM voice over artist: Ashutosh Gutierrez Pre-Operative Diagnosis: Left ankle open fracture; painful/broken hardware; acute osteomyelitis left distal fibula Post-Operative Diagnosis: same Surgery/Procedure Performed:: Left ankle hardware removal, debridement of soft tissue to bone, debridement fibula bone, bone biopsy fibula, debridement and bone biopsy of medial tibia, application of external fixation Description of Surgical Findings:: see dictation Estimated Blood Loss: 300mL Specimen's removed: L distal fibula (path and cx); L fibula clearing fragment (path and cx); L exposed medial tibia (path and cx); hardware explanted in total Drains: daniel L lateral ankle Type of Anesthesia:: Spinal General Anesthesia - Spinal converted to LMA - Admit VTE Documentation VTE Present on Admission: No VTE Mechan Device Prophylaxis: SCD's, Knee High MARLYS Velasquez
[2018-01-29 17:34] VITALS: BP 160/72; PULSE 64; RESP 20; TEMP 36.6; O2SAT 100
--- NOTE | 2018-01-29 17:41 | NURSING ---
PT BACK FROM SURGERY AT 1730. GROGGY, ABLE TO ANSWER QUESTIONS APPROP. EXTERNAL FIXATOR INTACT, WRAPPED WITH MIGUEL WRAP. PT RESTING IN BED, CALL LIGHT IN REACH.
[2018-01-29] MEDS: oxyCODONE 5 MG Tablet PO (17:53)
[2018-01-29] MEDS: Senna/Docusate Sodium 1 Tablet 2 TABLET PO (18:19)
[2018-01-29] MEDS: Gabapentin 300 MG Capsule PO (18:19)
--- NOTE | 2018-01-29 18:42 | NURSING ---
LLE wit external fixator in place, acewrap D/I. [place] drain under wrap
[2018-01-29 21:30] VITALS: BP 150/71; PULSE 75; RESP 20; TEMP 37.1; O2SAT 95
[2018-01-29] MEDS: Tuberculin,Purif.prot.deriv. 50 TU/ML Vial 5 ML ID (21:59)
[2018-01-29] MEDS: Amitriptyline 25 MG Tablet 75 MG PO (22:09)
[2018-01-29] MEDS: Menthol/Lanolin/Calamine/Znox 113 GM Tube 1 APPLIC TOPICAL (22:10)
[2018-01-29] MEDS: Nystatin Powder 15gm Bottle 1 APPLIC TOPICAL (22:10)
[2018-01-29] MEDS: Atorvastatin Calcium 40 MG Tablet PO (22:10)
[2018-01-30 01:30] VITALS: BP 155/80; PULSE 78; TEMP 36.5; O2SAT 98
[2018-01-30] MEDS: oxyCODONE 5 MG Tablet PO ×3 (04:54→16:30)
[2018-01-30] MEDS: LINAGLIPTIN 5 MG TABLET PO (04:56)
[2018-01-30] MEDS: Senna/Docusate Sodium 1 Tablet 2 TABLET PO (04:56)
[2018-01-30] MEDS: Atenolol 50 MG Tablet PO (04:56)
[2018-01-30] MEDS: Enoxaparin 30 MG/0.3 ML Syringe SC (04:57)
[2018-01-30] MEDS: Omega-3 Acid Ethyl Esters 1 GM Capsule PO (04:57)
[2018-01-30] MEDS: Polyethylene Glycol 3350 17 GM PACKET PO (04:57)
[2018-01-30] MEDS: dilTIAZem CD 180 MG Capsule PO (04:57)
[2018-01-30] MEDS: Menthol/Lanolin/Calamine/Znox 113 GM Tube 1 APPLIC TOPICAL ×2 (04:58→21:24)
[2018-01-30] MEDS: Nystatin Powder 15gm Bottle 1 APPLIC TOPICAL ×2 (04:58→21:24)
[2018-01-30] MEDS: 0.9% NaCl PICC Flush 10 ML IV ×3 (04:58→22:36)
[2018-01-30 05:30] VITALS: BP 144/81; PULSE 77; RESP 20; TEMP 37; O2SAT 98
[2018-01-30 05:34] LABS: Hematocrit 25.6 % (37-47); Hemoglobin 7.9 g/dl (12.0-15.0)
--- NOTE | 2018-01-30 07:15 | NURSING ---
PER DAY SHIFT RNS (BEA) ON 01/29, VANC AND MAXIPINE WERE TRANSFERRED TO AC W/PT. PER WRITTEN OR/PACU CHARTING, MAXIPIME WAS GIVEN AT 0937. THERE IS NO DOCUMENTATION TO INDICATE VANC WAS GIVEN. EMAR DOES NOT INDICATE VANC WAS ADMINISTERED. WILL CONTINUE TO RESEARCH AND MONITOR PT'S CONDITION VIA VANC TROUGHS.
[2018-01-30] MEDS: traMADol 50 MG Tablet PO (08:36)
[2018-01-30] MEDS: Gabapentin 300 MG Capsule PO ×3 (08:37→17:18)
[2018-01-30] MEDS: Multivitamins,Ther W-Minerals Tablet 1 TABLET PO (08:37)
[2018-01-30] MEDS: Allopurinol 300 MG Tablet PO (08:38)
[2018-01-30] MEDS: Iron Polysaccharide Complex 150 MG CAPSULE PO (08:38)
[2018-01-30] MEDS: Hydroxychloroquine 200 MG Tablet PO (08:38)
[2018-01-30] MEDS: Glucerna Shake 120 ML LIQUID PO ×3 (08:40→17:17)
[2018-01-30] MEDS: Vancomycin IV 500 MG/100 ML BAG 100 MG IV (08:45)
--- NOTE | 2018-01-30 08:56 | NURSING ---
Pt sitting up in bed eating breakfast. Vitals 160/84, 77, 98% RA, 18, 98.1. Circ checks WNL, pulse 2+ to BL feet. Lower extremities pink and warm. Pt medicated for pain of 8/10 to surgical site. Will continue to monitor.
--- NOTE | 2018-01-30 13:17 | NURSING ---
Wound culture from surgery positive for MRSA, per Christian in infection control, okay to remain in modified contact precautions.
[2018-01-30 13:58] VITALS: BP 130/78; PULSE 80; RESP 16; TEMP 37; O2SAT 94
--- NOTE | 2018-01-30 14:05 | NURSING ---
Dr Mcintyre in to see resident. Toes to Rt leg with no N/T voiced by patient. [place] and warm. Able to wiggle toes.
--- NOTE | 2018-01-30 15:04 | PN.ID_ITS ---
Patient Problems: Active and Suspected Problems (Last Reviewed 01/21/18 @ 12:13 by Arslan Robbins MD) Open left ankle fracture (Acute) Anemia (Acute) Subjective: Feeling ok, now s/p OR yesterday. Pain controlled, no fever. - Physical Exam General: Alert, Cooperative, No apparent distress Lungs: Clear to auscultation, Normal air movement Cardiovascular: Regular rate, Regular Rhythm Abdomen: Soft, Non Tender, Non-Distended Skin: Incision - LLE with external fixator in place Vital Signs Temp Pulse Resp BP Pulse Ox 98.6 F 80 16 130/78 H 94 01/30/18 13:58 01/30/18 13:58 01/30/18 13:58 01/30/18 13:58 01/30/18 13:58 Oxygen Delivery Method Room Air Weight: 105.4 kg Body Mass Index (BMI) 37.3 Intake and Output for Last 24 Hours 01/28/18 01/29/18 01/30/18 23:59 23:59 23:59 Intake Total 660 / 660 240 / 240 600 / 600 Output Total 700 / 700 1000 / 1000 Balance 660 / 660 -460 / -460 -400 / -400 Laboratory Tests Past 24 Hrs 01/30/18 04:40 Hgb 7.9 L Hct 25.6 L Medical Necessity - Tobacco Use Smoking Status: Former smoker Tobacco Use: Non-smoker Route of nutrition/ use of supplements: [] Nutritional Intake: [] IV Site: [] Gardner Catheter: [] - Assessment/Plan Antibiotics: [] Assessment/Plan: [] Active and Suspected Problems (Last Reviewed 01/21/18 @ 12:13 by Arslan Robbins MD) Open left ankle fracture (Acute) Anemia (Acute) 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 No sign of endocarditis on finger/toenails. No spine tenderness. Bcx from 01/16 is neg. TTE done, no need for YEIMY at this time. Taken to OR for debridement by Dr. Covington 01/20. BKA may be necessary. Continue vanc. Has nausea with PCN, tolerates cefazolin, amoxicillin with no issue. Narrowed meropenem to cefepime given past cx here and at [facility] with Pseudomonas spp. Cr at baseline. Plan on at least 6 week course of iv abx and then indefinite course with po given infected hardware. Stop date for vanc/cefepime planned for 03/03/18. Weekly bmp, cbc, esr, and vanc trough while on iv abx. After finishi ng iv abx, plan will be for indefinite course of po doxy 100mg bid. Now taken to OR 01/29 for hardware removal and external fixator placement. Will follow.
[2018-01-30] MEDS: Acetaminophen 500 MG Tablet 1000 MG PO (16:30)
[2018-01-30 22:00] VITALS: BP 149/78; PULSE 66; RESP 20; TEMP 36.1; O2SAT 93
[2018-01-30] MEDS: Amitriptyline 25 MG Tablet 75 MG PO (22:36)
[2018-01-30] MEDS: Atorvastatin Calcium 40 MG Tablet PO (22:36)
[2018-01-31] MEDS: Polyethylene Glycol 3350 17 GM PACKET PO (05:06)
[2018-01-31] MEDS: LINAGLIPTIN 5 MG TABLET PO (05:09)
[2018-01-31] MEDS: Atenolol 50 MG Tablet PO (05:09)
[2018-01-31] MEDS: Omega-3 Acid Ethyl Esters 1 GM Capsule PO (05:10)
[2018-01-31] MEDS: dilTIAZem CD 180 MG Capsule PO (05:10)
[2018-01-31] MEDS: Enoxaparin 30 MG/0.3 ML Syringe SC (05:10)
[2018-01-31] MEDS: Senna/Docusate Sodium 1 Tablet 2 TABLET PO (05:10)
[2018-01-31] MEDS: Nystatin Powder 15gm Bottle 1 APPLIC TOPICAL ×2 (05:13→21:04)
[2018-01-31] MEDS: Menthol/Lanolin/Calamine/Znox 113 GM Tube 1 APPLIC TOPICAL ×2 (05:13→21:03)
[2018-01-31 05:15] VITALS: BP 146/91; PULSE 70; RESP 16; TEMP 36.5; O2SAT 100
[2018-01-31] MEDS: oxyCODONE 5 MG Tablet PO ×3 (06:06→21:08)
[2018-01-31 08:45] LABS: Anion Gap 8 (5-15); BUN 67 mg/dL (7-18); BUN/Creat Ratio 39.6 RATIO (10-20); Calcium,Total 8.4 mg/dL (8.5-10.1); Chloride 109 mmol/L (98-107); Creatinine, Serum 1.69 mg/dL (0.55-1.02); EST Glomerular Filtration Rate 33 mL/min (>60); Est Glom Filt Rate - Afr Amer 40 mL/min (>60); Estimated Creatinine Clearance 33.55 ml/min; Glucose 98 mg/dL (74-106); Potassium 4.3 mmol/L (3.5-5.1); Sodium Level 140 mmol/L (136-145)
[2018-01-31] MEDS: Iron Polysaccharide Complex 150 MG CAPSULE PO (08:58)
[2018-01-31] MEDS: traMADol 50 MG Tablet PO (08:58)
[2018-01-31] MEDS: Allopurinol 300 MG Tablet PO (08:59)
[2018-01-31] MEDS: Glucerna Shake 120 ML LIQUID PO ×3 (08:59→16:11)
[2018-01-31] MEDS: Gabapentin 300 MG Capsule PO ×3 (08:59→16:11)
[2018-01-31] MEDS: Acetaminophen 500 MG Tablet 1000 MG PO (08:59)
[2018-01-31] MEDS: Hydroxychloroquine 200 MG Tablet PO (08:59)
[2018-01-31] MEDS: Multivitamins,Ther W-Minerals Tablet 1 TABLET PO (08:59)
[2018-01-31 09:09] LABS: Vancomycin, Random Level 15.1 ug/mL (0.0-15.0)
[2018-01-31 15:45] VITALS: BP 147/67; PULSE 41; RESP 16; TEMP 36.2; O2SAT 97
--- NOTE | 2018-01-31 16:09 | PCM.RX.CS ---
Consult Pharmacy has been consulted to manage selected antiobiotic: Vancomycin Type of Consult: Follow-up Suspected Infection: Osteomyelitis Prior Doses of Antibiotics Received/Current Regimen: Patient received 500mg iv x 1 on 01.31.18 @0845. Labs: Sodium 140 mmol/L (136-145) 01/31/18 08:00 Potassium 4.3 mmol/L (3.5-5.1) 01/31/18 08:00 Chloride 109 mmol/L (98-107) H 01/31/18 08:00 Carbon Dioxide 23.0 mmol/L (21.0-32.0) 01/31/18 08:00 Anion Gap 8 (5-15) 01/31/18 08:00 BUN 67 mg/dL (7-18) H 01/31/18 08:00 Creatinine 1.69 mg/dL (0.55-1.02) H 01/31/18 08:00 Est GFR (MDRD) Af Amer 40 mL/min (>60) L 01/31/18 08:00 Est GFR (MDRD) Non-Af 33 mL/min (>60) L 01/31/18 08:00 BUN/Creatinine Ratio 39.6 RATIO (10-20) H 01/31/18 08:00 Glucose 98 mg/dL (74-106) 01/31/18 08:00 Vancomycin Trough 18.5 ug/mL (5.0-15.0) H 01/28/18 00:40 Random Vancomycin 15.1 ug/mL (0.0-15.0) H 01/31/18 08:00 Weight used for dosin.4 kg Estimated Creatinine Clearance: 34 ml/min Goal Trough: 15-20 mcg/mL Pharmacy Plan for Drug Dosing: Random level prior to this AM dose 01.31.18 was 15.1 (within goal range of 15-20 mcg/ml). Will order 1 x dose of 750mg iv for AM 02.01.18 and get repeat random level on 02.02.18 @0800. Renal function today Cr 1.69 with CrCl ~34 ml/min, roughly unchanged from 01.29.18. Pharmacy Service will continue to monitor and adjust dosing as required. Follow-Up Labs: Trough Other - vancomycin random level 02.02.18 @0800
[2018-01-31] MEDS: Amitriptyline 25 MG Tablet 75 MG PO (21:04)
[2018-01-31] MEDS: Atorvastatin Calcium 40 MG Tablet PO (21:04)
[2018-01-31] MEDS: 0.9% NaCl IVPB Med Flush (250 mL) 15 ML IV (22:01)
[2018-01-31] MEDS: 0.9% NaCl PICC Flush 10 ML IV (22:02)
[2018-02-01] MEDS: Menthol/Lanolin/Calamine/Znox 113 GM Tube 1 APPLIC TOPICAL ×2 (04:57→20:41)
[2018-02-01] MEDS: dilTIAZem CD 180 MG Capsule PO (04:59)
[2018-02-01] MEDS: Omega-3 Acid Ethyl Esters 1 GM Capsule PO (04:59)
[2018-02-01] MEDS: Enoxaparin 30 MG/0.3 ML Syringe SC (04:59)
[2018-02-01] MEDS: Nystatin Powder 15gm Bottle 1 APPLIC TOPICAL ×2 (04:59→20:42)
[2018-02-01] MEDS: Atenolol 50 MG Tablet PO (04:59)
[2018-02-01] MEDS: LINAGLIPTIN 5 MG TABLET PO (04:59)
[2018-02-01 05:08] LABS: Hematocrit 23.2 % (37-47); Hemoglobin 7.3 g/dl (12.0-15.0)
[2018-02-01] MEDS: Iron Polysaccharide Complex 150 MG CAPSULE PO (09:49)
[2018-02-01] MEDS: Acetaminophen 500 MG Tablet 1000 MG PO ×2 (09:49→22:11)
[2018-02-01] MEDS: Gabapentin 300 MG Capsule PO ×3 (09:49→20:41)
[2018-02-01] MEDS: Multivitamins,Ther W-Minerals Tablet 1 TABLET PO (09:49)
[2018-02-01] MEDS: Allopurinol 300 MG Tablet PO (09:49)
[2018-02-01] MEDS: oxyCODONE 5 MG Tablet PO (09:49)
[2018-02-01] MEDS: Hydroxychloroquine 200 MG Tablet PO (09:49)
[2018-02-01] MEDS: Glucerna Shake 120 ML LIQUID PO ×2 (09:54→10:41)
[2018-02-01] MEDS: traMADol 50 MG Tablet PO (13:35)
[2018-02-01] MEDS: 0.9% NaCl PICC Flush 10 ML IV ×2 (13:40→22:09)
[2018-02-01 16:00] VITALS: BP 148/67; PULSE 73; RESP 16; TEMP 36.7; O2SAT 99
--- NOTE | 2018-02-01 16:24 | NURSING ---
trouble lineman informed this RN that the pt complained that she was left on the bedpan for over 50 minutes during 1&2 shift change. this RN went to the pt, she states she hit the call button 3 times before anyone came to take her off of the bedpan. I apologized and pt accepted apology, stating I know things happen, but it is just uncomfortable. she was very pleasant and cooperative during the whole exchange. her buttocks did show a slight redness from the bedpan but no other skin breakdown. will continue to monitor
--- NOTE | 2018-02-01 19:31 | OP.PCM_ITS ---
Report of Operation Date of Procedure: 01/29/18 Pre-Operative Diagnosis: Left ankle open fracture; painful/broken hardware; acute osteomyelitis left distal fibula Post-Operative Diagnosis: same Surgery/Procedure Performed:: Left ankle hardware removal, debridement of soft tissue to bone, debridement fibula bone, bone biopsy fibula, debridement and bone biopsy of medial tibia, application of external fixation Description of Surgical Findings:: see dictation shift mgr: Ashutosh Gutierrez Type of Anesthesia:: Spinal General Anesthesia - Spinal converted to LMA Specimen's removed: L distal fibula (path and cx); L fibula clearing fragment (path and cx); L exposed medial tibia (path and cx); hardware explanted in total Drains: daniel L lateral ankle Estimated Blood Loss (mL): 300mL Description of Procedure: Indications: Pt is a 57 yo F left limb salvage candidate 2/2 an open ankle fracture that subsequently became infected. She is s/p bone biopsies of L open ankle fracture on 01/20/2018. She presents today for the next step in her limb salvage: explant of hardware, soft tissue and bone debridement and biopsies, application of multiplanar external fixation device. All risks, complications, and alternatives were discussed with the patient, and the patient signed an informed consent. No guarantees were given. Procedure: On January 29, 2018, melida lauren was visually and verbally identified in the preoperative holding area. The consent form was again reviewed with the patient, as were all risks, complications, and alternatives and the patient wished to proceed with the proposed surgery. The left lower leg was marked as the correct operative extremity. Anesthesia elected to proceed with spinal anesthesia given her COPD hx. This was done successfully The patient was brought to the operating room and placed on the operating room table in the normal SUPINE position. A time out was performed and all present were in agreement. a pneumatic thigh tourniquet was then placed. At this time the left lower extremity was prepped and draped in the usual sterile fashion. At this time attention was directed to the left lateral ankle. Using a #15 blade, a longitudinal incision was made along the previous surgical scar. The incision was bluntly carried deep through the subcutaneous tissues with careful attention paid to all bleeders, which were clamped and tied or bovied as necessary. All vital neurovascular structures were retracted. The loosened, b roken and bent hardware was visualized. Given the blood in the field I decided at this time to elevate her left lower extremity and inflate the tourniquet to 300mmHg. We then returned to the left lateral ankle and the screws and plate were removed in total without incident using intra-operative fluoroscopy. The distal fibula fracture fragments were then excised using a #15 blade and sent for pathology and culture. It was noted to be soft. The soft tissues were debrided with a #15 blade and currette. The distal fibular fragment was then debrided using ronguers and noted to still be soft. All soft bone was removed and using a combination of osteotomes and ronguers bone biopsies of the distal residual fibula were taken. This was sent for separate pathology and culture as the distal clearing fragment of the fibula. Attention was then directed to the medial ankle wound. Using a fresh #15 blade and currettes the soft tissue was excisionally debrided of all non-viable and necrotic and fibrotic tissue until bleeding granular tissue was noted. No purulence was noted. Using a fresh osteotome and ronguers the exposed distal medial tibia was debrided and sent for pathology and culture. Bleeding bone was noted and the bone was not noted to be soft. At this time 3L of NSS was used via pulse lavage to irrigate the medial and lateral wounds. The medial ankle wound measured 9 cm x 6.5 cm deep to bone/ankle joint after sharp, excisional debridement. At this time we began application of the Orthofix multiplanar external fixation. Intra operative fluoroscopy was utilized throughout the application which took greater than one hour of the total case time. Two tibial half pins were placed for the most proximal ring which measured 160mm. These were bicortical and confirmed on fluoroscopy. The next circular ring was placed proximal to the ankle joint with 2 opposing olive wires under intra operative fluoroscopy. care was taken to place the lateral to medial olive wire without placing it in the residual fibula as we are awaiting distal fibula clearing fragment results, a 5/8th ring was placed at the level of talus with two opposing olives wires for stability and intra operative fluoroscopy was used to guide this placement as well as direct visualized of the lateral talus, a foot plate was then placed with two opposing olive wires in the calcaneus and two opposing olive wires in the forefoot. All wires in the foot plate were placed with intra operative fluoroscopy guidance. Patient's previous pin/wire placement from her initial external fixation device were noted on intra operative fluoroscopy at both the tibia and in the metatarsals and care was taken to avoid previous sites. All wires were tensioned per deputy sheriff building guard guidelines. The medial and lateral wounds were then again flushed with NSS. The lateral incision was then closed with 2-0 prolene distally and proximally leaving the central incision open and a 1/4 inch daniel drain was placed. The medial wound was dressed with adaptic and DSD. The pin and wires sites were each dressed with xeroform and DSD. An macario bandage was then applied to the LLE. Total tourniquet time was 120minutes. Immediate capillary refill was noted to all digits upon deflation of the tourniquet. The patient tolerated the procedure and anesthesia well. Of note the patient was converted to an LMA as the spinal anesthesia wore off during the procedure. The patient was then transported to the postanesthesia care unit by a member of the anesthesia team and myself with all vital signs stable and neurovascular status of the left lower extremity equal to pre-operative levels. A intra operative Hemoglobin was obtained as the patient was 7.7 prior to surgery and subsequently transfused 1 upRBCs. The intraoperative hemoglobin result was >8 so no further transfusion was done. It will be closely monitored by the medical team in the TCU. PT will likely return to the operating room in one week for further washout and debridement with possible application of skin substitute. Until then, pt will remain in the TCU NWB LLE at all times. At the end of the case all sponge, needle and instrument counts were found to be correct. Intraoperative fluoroscopy was utilized for the majority of the operating room time, > 1 hour. It was essential to my decision making for hardware removal and external fixation application. Grafts/Implants Used: Orthofix External fixation, daniel drain - Complications none - Admit VTE Documentation VTE Present on Admission: No VTE Mechan Device Prophylaxis: SCD's, Knee High MARLYS Hose VTE Pharm Prophylaxis ordered?: Yes
[2018-02-01] MEDS: Amitriptyline 25 MG Tablet 75 MG PO (20:41)
[2018-02-01] MEDS: Atorvastatin Calcium 40 MG Tablet PO (20:41)
[2018-02-01] MEDS: 0.9% NaCl IVPB Med Flush (250 mL) 15 ML IV (22:27)
--- NOTE | 2018-02-02 05:16 | NURSING ---
Addendum entered by Kathy Turk 02/02/18 06:30: Dr Elizondo notified of hgb 7.2. N.O. for type and cross and 2 units PRBCs with 40mg Lasix IV between. Original Note: Pt c/o of SOB this morning. 99% on room air, BP 150/80, T 97.7 temporal, HR 73. Hbg noted to be 7.3. Dr Elizondo notified. N.O. for CBC and duoneb.
[2018-02-02] MEDS: Menthol/Lanolin/Calamine/Znox 113 GM Tube 1 APPLIC TOPICAL ×2 (05:20→22:00)
[2018-02-02] MEDS: Atenolol 50 MG Tablet PO (05:21)
[2018-02-02] MEDS: Omega-3 Acid Ethyl Esters 1 GM Capsule PO (05:21)
[2018-02-02] MEDS: dilTIAZem CD 180 MG Capsule PO (05:21)
[2018-02-02] MEDS: Nystatin Powder 15gm Bottle 1 APPLIC TOPICAL ×2 (05:21→22:10)
[2018-02-02] MEDS: LINAGLIPTIN 5 MG TABLET PO (05:22)
[2018-02-02] MEDS: Ipratropium/Albuterol Sulfate 3 ML AMPUL.NEB INHALATION (05:50)
[2018-02-02 05:52] LABS: Absolute Lymphocyte Count 2.46 X10^3/ul (0.83-4.51); Absolute Neutrophil Count 3.7 X10^3/uL (2.0-7.7); Basophil# 0.06 X10^3/uL; Basophil% 0.8 % (0-1); Eosinophil# 0.25 X10^3/uL; Eosinophils% 3.4 % (0-5); Hematocrit 23.3 % (37-47); Hemoglobin 7.2 g/dl (12.0-15.0); Lymphocyte # 2.46 X10^3/ul (4.0); Lymphocyte % 33.4 % (19-41); Mean Corp Hgb Conc 30.9 g/gl (32-36); Mean Corpuscular Hgb 27.4 pg (27.0-32.0); Mean Corpuscular Volume 88.6 fL (81-99); Mean Platelet Vol. 9.4 fl (6.2-12.0); Monocyte# 0.83 X10^3/uL; Monocyte% 11.3 % (0-10); Neutrophil # 3.68 X10^3/uL (2.7-7.7); Platelet Count 255 K/mm3 (150-450); RBC Distribution Width CV 15.9 % (11.6-14.6); RBC Distribution Width SD 48.8 fl (35.1-43.9); Red Blood Count 2.63 M/mm3 (4.2-5.4); White Blood Count 7.4 K/mm3 (4.4-11.0)
[2018-02-02 05:54] LABS: POSITIVE COUNT NO; POSITIVE DIFFERENTIAL NO; POSITIVE MORPHOLOGY NO
[2018-02-02 06:09] VITALS: PULSE 74; RESP 18
[2018-02-02] MEDS: Enoxaparin 30 MG/0.3 ML Syringe SC (07:06)
[2018-02-02 07:57] LABS: Vancomycin, Random Level 15.9 ug/mL (0.0-15.0)
[2018-02-02] MEDS: Gabapentin 300 MG Capsule PO ×2 (08:07→16:50)
[2018-02-02] MEDS: Multivitamins,Ther W-Minerals Tablet 1 TABLET PO (08:07)
[2018-02-02] MEDS: Allopurinol 300 MG Tablet PO (08:07)
[2018-02-02] MEDS: Hydroxychloroquine 200 MG Tablet PO (08:07)
[2018-02-02] MEDS: Iron Polysaccharide Complex 150 MG CAPSULE PO (08:11)
[2018-02-02] MEDS: oxyCODONE 5 MG Tablet PO ×2 (08:13→22:15)
[2018-02-02 08:17] VITALS: PULSE 73; O2SAT 97
[2018-02-02] MEDS: 0.9% NaCl PICC Flush 10 ML IV ×2 (09:11→22:00)
[2018-02-02] MEDS: Ondansetron ODT 4 MG Tablet PO (10:15)
--- NOTE | 2018-02-02 10:18 | NURSING ---
pt off unit to infusion suite for blood. zofran given for nausea. Pt going down in bed d/t external fixator device on LLE
--- NOTE | 2018-02-02 10:39 | PCM.RX.CS ---
Consult Pharmacy has been consulted to manage selected antiobiotic: Vancomycin Type of Consult: Follow-up Suspected Infection: Osteomyelitis Prior Doses of Antibiotics Received/Current Regimen: VANCOMYCIN 750MG IV X1 02/01/18 @1038 Labs: Sodium 140 mmol/L (136-145) 01/31/18 08:00 Potassium 4.3 mmol/L (3.5-5.1) 01/31/18 08:00 Chloride 109 mmol/L (98-107) H 01/31/18 08:00 Carbon Dioxide 23.0 mmol/L (21.0-32.0) 01/31/18 08:00 Anion Gap 8 (5-15) 01/31/18 08:00 BUN 67 mg/dL (7-18) H 01/31/18 08:00 Creatinine 1.69 mg/dL (0.55-1.02) H 01/31/18 08:00 Est GFR (MDRD) Af Amer 40 mL/min (>60) L 01/31/18 08:00 Est GFR (MDRD) Non-Af 33 mL/min (>60) L 01/31/18 08:00 BUN/Creatinine Ratio 39.6 RATIO (10-20) H 01/31/18 08:00 Glucose 98 mg/dL (74-106) 01/31/18 08:00 Vancomycin Trough 18.5 ug/mL (5.0-15.0) H 01/28/18 00:40 Random Vancomycin 15.9 ug/mL (0.0-15.0) H 02/02/18 07:04 Goal Trough: 15-20 mcg/mL Pharmacy Plan for Drug Dosing: The patient had a random level 02/02/18 @0704 which resulted in a value of 15.9 (~21hrs from last administered dose). The patient has been dosed based on random levels, and has not been on a normalized dosing schedule due to renal function/ surgeries/ etc. Will plan on getting the patient on Vancomycin 1g IV Q48hrs. Will give 1g IV x1 today, check one more random level on 02/04. If the patient is within therapeutic range of 15-20 after the 1g dose, will plan on putting the patient on a Q48hr schedule. Stop date 03/03/18 per ID progress notes. PLAN/RECOMMENDATIONS 1. Vancomycin 1g IV x1 11/8/18 @1100 2. Random vancomycin level ordered 02/04/18 @1030 3.Pharmacy Service will continue to monitor and adjust dosing as required.
--- NOTE | 2018-02-02 11:39 | PCM.PN.RX ---
<Jose Luis Quinones D - Last Filed: 02/02/18 11:39> Progress Note - Pharmacy Subjective: TCU Admission Objective: Allergies aspirin Allergy (Verified 01/28/18 09:07) Hives latex Allergy (Verified 01/28/18 09:07) Hives Penicillins Allergy (Verified 01/28/18 09:07) Hives naproxen [From Aleve] Adverse Reaction (Severe, Verified 01/28/18 09:07) Kidney disease Stage 3 Current Medications Generic Name Dose Route Start Last Admin Trade Name Freq PRN Reason Stop Dose Admin Acetaminophen 1,000 mg 01/21/18 21:46 02/01/18 22:11 Tylenol PO 1,000 mg Q6H PRN PRN Administration MILD PAIN (1-310) Albuterol Sulfate 2.5 mg 01/23/18 07:09 Ventolin Aerosols INHALATION Q4H PRN PRN WHEEZING Allopurinol 300 mg 01/22/18 08:00 02/02/18 08:07 Zyloprim PO 300 mg DAILYCM [facility] Administration Amitriptyline HCl 75 mg 01/21/18 22:00 02/01/18 20:41 Elavil PO 75 mg QHS [facility] Administration Atenolol 50 mg 01/22/18 06:00 02/02/18 05:21 Tenormin (Beta Jona) PO 50 mg DAILY [facility] Administration Atorvastatin Calcium 40 mg 01/21/18 22:00 02/01/18 20:41 Lipitor PO 40 mg QHS [facility] Administration Bisacodyl 10 mg 01/21/18 21:45 Dulcolax PO DAILY PRN Constipation Calamine/Phenol 1 applic 01/22/18 06:00 02/02/18 05:20 Calmoseptine Ointment TOPICAL 1 applicatio 0600,2200 [facility] Administration Protocol Cholecalciferol 2,000 unit 01/22/18 06:00 02/02/18 05:22 Vitamin D PO 2,000 unit DAILY [facility] Administration Colchicine 0.6 mg 01/22/18 14:00 02/01/18 09:49 Colchicine PO 0.6 mg QODAY@0800 [facility] Administration Cyclobenzaprine HCl 10 mg 01/21/18 15:45 01/31/18 08:59 Flexeril PO 10 mg TID PRN PRN Administration muscle spasm Diltiazem HCl 180 mg 01/22/18 06:00 02/02/18 05:21 Cardizem Cd PO 180 mg DAILY [facility] Administration Enoxaparin Sodium 30 mg 01/22/18 06:00 02/02/18 07:06 Lovenox SC 30 mg DAILY@0600 [facility] Administration Fluticasone Propionate 2 spray 01/27/18 05:34 Flonase Nasal [place] NASAL DAILY PRN PRN NASAL DRYNESS Gabapentin 300 mg 01/21/18 17:45 02/02/18 08:07 Neurontin PO 300 mg TIDCM [facility] Administration Hydroxychloroquine Sulfate 200 mg 01/22/18 08:00 02/02/18 08:07 Plaquenil PO 200 mg DAILYCM [facility] Administration Cefepime HCl 2 gm/ Sodium 100 mls @ 200 mls/hr 01/21/18 22:00 02/02/18 09:11 Chloride IV 200 mls/hr Q12@1000,2200 [facility] Administration Vancomycin IV Pharmacy to Dose 500 mls @ 250 mls/hr 01/22/18 10:00 1,250 ea/ Sodium Chloride IV PRN PRN Protocol Sodium Chloride 250 mls @ 15 mls/hr 01/21/18 19:55 02/01/18 22:27 IV 15 mls/hr .[id number] PRN Administration SALINE FLUSH Vancomycin HCl 1,000 mg in 200 mls @ 200 mls/hr 02/02/18 11:00 Vancomycin IV 02/02/18 11:59 X1 ONE Linagliptin 5 mg 01/22/18 06:00 02/02/18 05:22 Tradjenta PO 5 mg DAILY [facility] Administration Multivitamins/Minerals 1 tablet 01/22/18 08:00 02/02/18 08:07 Multivitamin With Minerals PO 1 tablet DAILY@0800 [facility] Administration Nutritional Formula 1 packet 01/21/18 17:00 02/02/18 08:07 Pancho - [place] Flavor PO 1 packet BIDCM [facility] Administration Nutritional Formula (Lactose Free) 120 ml 01/22/18 07:45 02/02/18 08:07 Glucerna Shake PO Not Given TIDCM [facility] Nystatin 1 applic 01/22/18 06:00 02/02/18 05:21 Mycostatin Powder TOPICAL 1 applicatio 0600,2200 [facility] Administration Protocol [id number] Ethyl Esters 1 gm 01/22/18 06:00 11/05/18 05:21 Lovaza PO 1 gm DAILY [facility] Administration Ondansetron HCl 4 mg 02/02/18 09:44 02/02/18 10:15 Zofran Odt PO 4 mg Q6H PRN PRN Administration NAUSEA Oxycodone HCl 5 mg 01/21/18 21:45 02/02/18 08:13 Oxyir PO 5 mg Q4H PRN PRN Administration SEVERE PAIN (6-10/10) Polyethylene Glycol 17 gm 01/22/18 06:00 02/02/18 05:21 Miralax PO Not Given DAILY [facility] Polysaccharide Iron Complex 150 mg 01/23/18 08:00 02/02/18 08:11 Ferrex 150 PO 150 mg DAILYCM [facility] Administration Pramipexole Dihydrochloride 0.25 mg 01/26/18 18:38 01/28/18 20:52 Mirapex PO 0.25 mg DAILY PRN Administration RESTLESSNESS Senna/Docusate Sodium 2 tablet 01/22/18 06:00 02/02/18 05:21 Senokot-S, Loly-Colace PO Not Given BID [facility] Sodium Chloride 10 ml 01/21/18 19:55 02/02/18 09:11 IV 10 ml UD PRN Administration PICC FLUSH Tramadol HCl 50 mg 01/21/18 21:46 02/01/18 13:35 Ultram PO 50 mg TID PRN PRN Administration MODERATE PAIN (4-5/10) Problem List (Last Reviewed 01/21/18 @ 12:13 by Arslan Robbins MD) Open left ankle fracture (Acute) Anemia (Acute) Rheumatoid arthritis (Chronic) Gout (Chronic) Tinea unguium (Chronic) Type 2 diabetes mellitus with diabetic polyneuropathy (Chronic) Vital Signs Temp Pulse Resp BP Pulse Ox 98.0 F 73 18 148/67 H 97 02/01/18 16:00 02/02/18 08:17 02/02/18 06:09 02/01/18 16:00 02/02/18 08:17 Oxygen Delivery Method Room Air Weight: 105.4 kg Body Mass Index (BMI) 37.3 Sodium 140 mmol/L (136-145) 01/31/18 08:00 Potassium 4.3 mmol/L (3.5-5.1) 01/31/18 08:00 Chloride 109 mmol/L (98-107) H 01/31/18 08:00 Carbon Dioxide 23.0 mmol/L (21.0-32.0) 01/31/18 08:00 Anion Gap 8 (5-15) 01/31/18 08:00 BUN 67 mg/dL (7-18) H 01/31/18 08:00 Creatinine 1.69 mg/dL (0.55-1.02) H 01/31/18 08:00 Est GFR (MDRD) Af Amer 40 mL/min (>60) L 01/31/18 08:00 Est GFR (MDRD) Non-Af 33 mL/min (>60) L 01/31/18 08:00 BUN/Creatinine Ratio 39.6 RATIO (10-20) H 01/31/18 08:00 Glucose 98 mg/dL (74-106) 01/31/18 08:00 Vancomycin Trough 18.5 ug/mL (5.0-15.0) H 01/28/18 00:40 Random Vancomycin 15.9 ug/mL (0.0-15.0) H 02/02/18 07:04 Assessment/Plan: 1) Pain APAP for mild pain, tramadol for moderate pain, oxycodone for severe pain, cyclobenzaprine for spasm, gabapentin, hydroxychloroquine, amitriptyline art class model use at current dose with effective relief of neuropathy. Continue to monitor daily pain scores, prn medication use. 2) ID Vancomycin & cefepime for osteomyelitis until 03/03. Pharmacy monitoring and dosing vancomycin for 15-20 goal trough. Continue to monitor renal function, vanc levels, s/s infection. 3) HTN Atenolol diltiazem. Continue to monitor BP/HR. 4) HLD Atorvastatin daily. Continue to monitor lipids. 5) DM2 Linagliptin daily. Continue to monitor BGT. 6) RLS Pramipexole as needed. Continue to monitor prn medication use. 7) DVT PPx Enoxaparin daily. Continue to monitor s/s bleeding/clot. 8) Gout Colchicine, allopurinol. Continue to monitor for gout symptoms. 9) Nutrition D, Glucerna, multivitamin, Pancho, Fe, omega 3. Continue to monitor clinically. Psychotropic Medications: None Unnecessary Medications: None Bowel Regimen: 10) Senna/s, PEG, prn bisacodyl. Continue to monitor prn medication use, for constipation/diarrhea. Date of Note:: 02/02/18 - Provider Comments Provider responsibility: Provider responsible to enter orders to implement recommendations <Gerson Elizondo Chi - Last Filed: 02/02/18 12:57> Progress Note - Pharmacy Subjective: [] Objective: Allergies aspirin Allergy (Verified 01/28/18 09:07) Hives latex Allergy (Verified 01/28/18 09:07) Hives Penicillins Allergy (Verified 01/28/18 09:07) Hives naproxen [From Aleve] Adverse Reaction (Severe, Verified 01/28/18 09:07) Kidney disease Stage 3 Current Medications Generic Name Dose Route Start Last Admin Trade Name Freq PRN Reason Stop Dose Admin Acetaminophen 1,000 mg 01/21/18 21:46 02/01/18 22:11 Tylenol PO 1,000 mg Q6H PRN PRN Administration MILD PAIN (1-3/10) Albuterol Sulfate 2.5 mg 01/23/18 07:09 Ventolin Aerosols INHALATION Q4H PRN PRN WHEEZING Allopurinol 300 mg 01/22/18 08:00 02/02/18 08:07 Zyloprim PO 300 mg DAILYCM [facility] Administration Amitriptyline HCl 75 mg 01/21/18 22:00 02/01/18 20:41 Elavil PO 75 mg QHS [facility] Administration Atenolol 50 mg 01/22/18 06:00 02/02/18 05:21 Tenormin (Beta Jona) PO 50 mg DAILY [facility] Administration Atorvastatin Calcium 40 mg 01/21/18 22:00 02/01/18 20:41 Lipitor PO 40 mg QHS [facility] Administration Bisacodyl 10 mg 01/21/18 21:45 Dulcolax PO DAILY PRN Constipation Calamine/Phenol 1 applic 01/22/18 06:00 02/02/18 05:20 Calmoseptine Ointment TOPICAL 1 applicatio 0600,2200 [facility] Administration Protocol Cholecalciferol 2,000 unit 01/22/18 06:00 02/02/18 05:22 Vitamin D PO 2,000 unit DAILY [facility] Administration Colchicine 0.6 mg 01/22/18 14:00 02/01/18 09:49 Colchicine PO 0.6 mg QODAY@0800 [facility] Administration Cyclobenzaprine HCl 10 mg 01/21/18 15:45 01/31/18 08:59 Flexeril PO 10 mg TID PRN PRN Administration muscle spasm Diltiazem HCl 180 mg 01/22/18 06:00 02/02/18 05:21 Cardizem Cd PO 180 mg DAILY [facility] Administration Enoxaparin Sodium 30 mg 01/22/18 06:00 02/02/18 07:06 Lovenox SC 30 mg DAILY@0600 [facility] Administration Fluticasone Propionate 2 spray 01/27/18 05:34 Flonase Nasal [place] NASAL DAILY PRN PRN NASAL DRYNESS Gabapentin 300 mg 01/21/18 17:45 02/02/18 08:07 Neurontin PO 300 mg TIDCM [facility] Administration Hydroxychloroquine Sulfate 200 mg 01/22/18 08:00 02/02/18 08:07 Plaquenil PO 200 mg DAILYCM [facility] Administration Cefepime HCl 2 gm/ Sodium 100 mls @ 200 mls/hr 01/21/18 22:00 02/02/18 09:11 Chloride IV 200 mls/hr Q12@1000,2200 [facility] Administration Vancomycin IV Pharmacy to Dose 500 mls @ 250 mls/hr 01/22/18 10:00 1,250 ea/ Sodium Chloride IV PRN PRN Protocol Sodium Chloride 250 mls @ 15 mls/hr 01/21/18 19:55 02/01/18 22:27 IV 15 mls/hr .[id number] PRN Administration SALINE FLUSH Linagliptin 5 mg 01/22/18 06:00 02/02/18 05:22 Tradjenta PO 5 mg DAILY [facility] Administration Multivitamins/Minerals 1 tablet 01/22/18 08:00 02/02/18 08:07 Multivitamin With Minerals PO 1 tablet DAILY@0800 [facility] Administration Nutritional Formula 1 packet 01/21/18 17:00 02/02/18 08:07 Pancho - [place] Flavor PO 1 packet BIDCM [facility] Administration Nutritional Formula (Lactose Free) 120 ml 01/22/18 07:45 02/02/18 08:07 Glucerna Shake PO Not Given TIDCM [facility] Nystatin 1 applic 01/22/18 06:00 02/02/18 05:21 Mycostatin Powder TOPICAL 1 applicatio 0600,2200 [facility] Administration Protocol [id number] Ethyl Esters 1 gm 01/22/18 06:00 02/02/18 05:21 Lovaza PO 1 gm DAILY [facility] Administration Ondansetron HCl 4 mg 02/02/18 09:44 02/02/18 10:15 Zofran Odt PO 4 mg Q6H PRN PRN Administration NAUSEA Oxycodone HCl 5 mg 01/21/18 21:45 02/02/18 08:13 Oxyir PO 5 mg Q4H PRN PRN Administration SEVERE PAIN (6-10/10) Polyethylene Glycol 17 gm 01/22/18 06:00 02/02/18 05:21 Miralax PO Not Given DAILY [facility] Polysaccharide Iron Complex 150 mg 01/23/18 08:00 02/02/18 08:11 Ferrex 150 PO 150 mg DAILYCM [facility] Administration Pramipexole Dihydrochloride 0.25 mg 01/26/18 18:38 01/28/18 20:52 Mirapex PO 0.25 mg DAILY PRN Administration RESTLESSNESS Senna/Docusate Sodium 2 tablet 01/22/18 06:00 02/02/18 05:21 Senokot-S, Loly-Colace PO Not Given BID [facility] Sodium Chloride 10 ml 01/21/18 19:55 02/02/18 09:11 IV 10 ml UD PRN Administration PICC FLUSH Tramadol HCl 50 mg 01/21/18 21:46 02/01/18 13:35 Ultram PO 50 mg TID PRN PRN Administration MODERATE PAIN (4-5/10) Problem List (Last Reviewed 01/21/18 @ 12:13 by Arslan Robbins MD) Open left ankle fracture (Acute) Anemia (Acute) Rheumatoid arthritis (Chronic) Gout (Chronic) Tinea unguium (Chronic) Type 2 diabetes mellitus with diabetic polyneuropathy (Chronic) Vital Signs Temp Pulse Resp BP Pulse Ox 98.0 F 73 18 148/67 H 97 02/01/18 16:00 02/02/18 08:17 02/02/18 06:09 02/01/18 16:00 02/02/18 08:17 Oxygen Delivery Method Room Air Weight: 105.4 kg Body Mass Index (BMI) 37.3 Sodium 140 mmol/L (136-145) 01/31/18 08:00 Potassium 4.3 mmol/L (3.5-5.1) 01/31/18 08:00 Chloride 109 mmol/L (98-107) H 01/31/18 08:00 Carbon Dioxide 23.0 mmol/L (21.0-32.0) 01/31/18 08:00 Anion Gap 8 (5-15) 01/31/18 08:00 BUN 67 mg/dL (7-18) H 01/31/18 08:00 Creatinine 1.69 mg/dL (0.55-1.02) H 01/31/18 08:00 Est GFR (MDRD) Af Amer 40 mL/min (>60) L 01/31/18 08:00 Est GFR (MDRD) Non-Af 33 mL/min (>60) L 01/31/18 08:00 BUN/Creatinine Ratio 39.6 RATIO (10-20) H 01/31/18 08:00 Glucose 98 mg/dL (74-106) 01/31/18 08:00 Vancomycin Trough 18.5 ug/mL (5.0-15.0) H 01/28/18 00:40 Random Vancomycin 15.9 ug/mL (0.0-15.0) H 02/02/18 07:04 Assessment/Plan: Psychotropic Medications: Unnecessary Medications: Bowel Regimen: - Provider Comments Provider responsibility: Provider responsible to enter orders to implement recommendations Provider Comments to Recommendations by Pharmacy: Agree
--- NOTE | 2018-02-02 11:49 | PHA.CONS_ITS ---
<Jose Luis Quinones D - Last Filed: 02/02/18 11:39> Progress Note - Pharmacy Subjective: [facility]CU Admission Objective: Allergies aspirin Allergy (Verified 01/28/18 09:07) Hives latex Allergy (Verified 01/28/18 09:07) Hives Penicillins Allergy (Verified 01/28/18 09:07) Hives naproxen [From Aleve] Adverse Reaction (Severe, Verified 01/28/18 09:07) Kidney disease Stage 3 Current Medications Generic Name Dose Route Start Last Admin Trade Name Freq PRN Reason Stop Dose Admin Acetaminophen 1,000 mg 01/21/18 21:46 02/01/18 22:11 Tylenol PO 1,000 mg Q6H PRN PRN Administration MILD PAIN (1-310) Albuterol Sulfate 2.5 mg 01/23/18 07:09 Ventolin Aerosols INHALATION Q4H PRN PRN WHEEZING Allopurinol 300 mg 01/22/18 08:00 02/02/18 08:07 Zyloprim PO 300 mg DAILYCM [facility] Administration Amitriptyline HCl 75 mg 01/21/18 22:00 02/01/18 20:41 Elavil PO 75 mg QHS [facility] Administration Atenolol 50 mg 01/22/18 06:00 02/02/18 05:21 Tenormin (Beta Jona) PO 50 mg DAILY [facility] Administration Atorvastatin Calcium 40 mg 01/21/18 22:00 02/01/18 20:41 Lipitor PO 40 mg QHS [facility] Administration Bisacodyl 10 mg 01/21/18 21:45 Dulcolax PO DAILY PRN Constipation Calamine/Phenol 1 applic 01/22/18 06:00 02/02/18 05:20 Calmoseptine Ointment TOPICAL 1 applicatio 0600,2200 [facility] Administration Protocol Cholecalciferol 2,000 unit 01/22/18 06:00 02/02/18 05:22 Vitamin D PO 2,000 unit DAILY [facility] Administration Colchicine 0.6 mg 01/22/18 14:00 02/01/18 09:49 Colchicine PO 0.6 mg QODAY@0800 [facility] Administration Cyclobenzaprine HCl 10 mg 01/21/18 15:45 01/31/18 08:59 Flexeril PO 10 mg TID PRN PRN Administration muscle spasm Diltiazem HCl 180 mg 01/22/18 06:00 02/02/18 05:21 Cardizem Cd PO 180 mg DAILY [facility] Administration Enoxaparin Sodium 30 mg 01/22/18 06:00 02/02/18 07:06 Lovenox SC 30 mg DAILY@0600 [facility] Administration Fluticasone Propionate 2 spray 01/27/18 05:34 Flonase Nasal [place] NASAL DAILY PRN PRN NASAL DRYNESS Gabapentin 300 mg 01/21/18 17:45 02/02/18 08:07 Neurontin PO 300 mg TIDCM [facility] Administration Hydroxychloroquine Sulfate 200 mg 01/22/18 08:00 02/02/18 08:07 Plaquenil PO 200 mg DAILYCM [facility] Administration Cefepime HCl 2 gm/ Sodium 100 mls @ 200 mls/hr 01/21/18 22:00 02/02/18 09:11 Chloride IV 200 mls/hr Q12@1000,2200 [facility] Administration Vancomycin IV Pharmacy to Dose 500 mls @ 250 mls/hr 01/22/18 10:00 1,250 ea/ Sodium Chloride IV PRN PRN Protocol Sodium Chloride 250 mls @ 15 mls/hr 01/21/18 19:55 02/01/18 22:27 IV 15 mls/hr .[id number] PRN Administration SALINE FLUSH Vancomycin HCl 1,000 mg in 200 mls @ 200 mls/hr 02/02/18 11:00 Vancomycin IV 02/02/18 11:59 X1 ONE Linagliptin 5 mg 01/22/18 06:00 02/02/18 05:22 Tradjenta PO 5 mg DAILY [facility] Administration Multivitamins/Minerals 1 tablet 01/22/18 08:00 02/02/18 08:07 Multivitamin With Minerals PO 1 tablet DAILY@0800 [facility] Administration Nutritional Formula 1 packet 01/21/18 17:00 02/02/18 08:07 Pancho - [place] Flavor PO 1 packet BIDCM [facility] Administration Nutritional Formula (Lactose Free) 120 ml 01/22/18 07:45 02/02/18 08:07 Glucerna Shake PO Not Given TIDCM [facility] Nystatin 1 applic 01/22/18 06:00 02/02/18 05:21 Mycostatin Powder TOPICAL 1 applicatio 0600,2200 [facility] Administration Protocol [id number] Ethyl Esters 1 gm 01/22/18 06:00 11/05/18 05:21 Lovaza PO 1 gm DAILY [facility] Administration Ondansetron HCl 4 mg 02/02/18 09:44 02/02/18 10:15 Zofran Odt PO 4 mg Q6H PRN PRN Administration NAUSEA Oxycodone HCl 5 mg 01/21/18 21:45 02/02/18 08:13 Oxyir PO 5 mg Q4H PRN PRN Administration SEVERE PAIN (6-10/10) Polyethylene Glycol 17 gm 01/22/18 06:00 02/02/18 05:21 Miralax PO Not Given DAILY [facility] Polysaccharide Iron Complex 150 mg 01/23/18 08:00 02/02/18 08:11 Ferrex 150 PO 150 mg DAILYCM [facility] Administration Pramipexole Dihydrochloride 0.25 mg 01/26/18 18:38 01/28/18 20:52 Mirapex PO 0.25 mg DAILY PRN Administration RESTLESSNESS Senna/Docusate Sodium 2 tablet 01/22/18 06:00 02/02/18 05:21 Senokot-S, Loly-Colace PO Not Given BID [facility] Sodium Chloride 10 ml 01/21/18 19:55 02/02/18 09:11 IV 10 ml UD PRN Administration PICC FLUSH Tramadol HCl 50 mg 01/21/18 21:46 02/01/18 13:35 Ultram PO 50 mg TID PRN PRN Administration MODERATE PAIN (4-5/10) Problem List (Last Reviewed 01/21/18 @ 12:13 by Arslan Robbins MD) Open left ankle fracture (Acute) Anemia (Acute) Rheumatoid arthritis (Chronic) Gout (Chronic) Tinea unguium (Chronic) Type 2 diabetes mellitus with diabetic polyneuropathy (Chronic) Vital Signs Temp Pulse Resp BP Pulse Ox 98.0 F 73 18 148/67 H 97 02/01/18 16:00 02/02/18 08:17 02/02/18 06:09 02/01/18 16:00 02/02/18 08:17 Oxygen Delivery Method Room Air Weight: 105.4 kg Body Mass Index (BMI) 37.3 Sodium 140 mmol/L (136-145) 01/31/18 08:00 Potassium 4.3 mmol/L (3.5-5.1) 01/31/18 08:00 Chloride 109 mmol/L (98-107) H 01/31/18 08:00 Carbon Dioxide 23.0 mmol/L (21.0-32.0) 01/31/18 08:00 Anion Gap 8 (5-15) 01/31/18 08:00 BUN 67 mg/dL (7-18) H 01/31/18 08:00 Creatinine 1.69 mg/dL (0.55-1.02) H 01/31/18 08:00 Est GFR (MDRD) Af Amer 40 mL/min (>60) L 01/31/18 08:00 Est GFR (MDRD) Non-Af 33 mL/min (>60) L 01/31/18 08:00 BUN/Creatinine Ratio 39.6 RATIO (10-20) H 01/31/18 08:00 Glucose 98 mg/dL (74-106) 01/31/18 08:00 Vancomycin Trough 18.5 ug/mL (5.0-15.0) H 01/28/18 00:40 Random Vancomycin 15.9 ug/mL (0.0-15.0) H 02/02/18 07:04 Assessment/Plan: 1) Pain APAP for mild pain, tramadol for moderate pain, oxycodone for severe pain, cyclobenzaprine for spasm, gabapentin, hydroxychloroquine, 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 Continue to monitor daily pain scores, prn medication use. 2) ID Vancomycin & cefepime for osteomyelitis until 03/03. Pharmacy monitoring and dosing vancomycin for 15-20 goal trough. Continue to monitor renal function, vanc levels, s/s infection. 3) HTN Atenolol diltiazem. Continue to monitor BP/HR. 4) HLD Atorvastatin daily. Continue to monitor lipids. 5) DM2 Linagliptin daily. Continue to monitor BGT. 6) RLS Pramipexole as needed. Continue to monitor prn medication use. 7) DVT PPx Enoxaparin daily. Continue to monitor s/s bleeding/clot. 8) Gout Colchicine, allopurinol. Continue to monitor for gout symptoms. 9) Nutrition D, Glucerna, multivitamin, Pancho, Fe, omega 3. Continue to monitor clinically. Psychotropic Medications: None Unnecessary Medications: None Bowel Regimen: 10) Senna/s, PEG, prn bisacodyl. Continue to monitor prn medication use, for constipation/diarrhea. Date of Note:: 02/02/18 - Provider Comments Provider responsibility: Provider responsible to enter orders to implement recommendations <Gerson Elizondo Chi - Last Filed: 02/02/18 12:57> Progress Note - Pharmacy Subjective: [] Objective: Allergies aspirin Allergy (Verified 01/28/18 09:07) Hives latex Allergy (Verified 01/28/18 09:07) Hives Penicillins Allergy (Verified 01/28/18 09:07) Hives naproxen [From Aleve] Adverse Reaction (Severe, Verified 01/28/18 09:07) Kidney disease Stage 3 Current Medications Generic Name Dose Route Start Last Admin Trade Name Freq PRN Reason Stop Dose Admin Acetaminophen 1,000 mg 01/21/18 21:46 02/01/18 22:11 Tylenol PO 1,000 mg Q6H PRN PRN Administration MILD PAIN (1-3/10) Albuterol Sulfate 2.5 mg 01/23/18 07:09 Ventolin Aerosols INHALATION Q4H PRN PRN WHEEZING Allopurinol 300 mg 01/22/18 08:00 02/02/18 08:07 Zyloprim PO 300 mg DAILYCM [facility] Administration Amitriptyline HCl 75 mg 01/21/18 22:00 02/01/18 20:41 Elavil PO 75 mg QHS [facility] Administration Atenolol 50 mg 01/22/18 06:00 02/02/18 05:21 Tenormin (Beta Jona) PO 50 mg DAILY [facility] Administration Atorvastatin Calcium 40 mg 01/21/18 22:00 02/01/18 20:41 Lipitor PO 40 mg QHS [facility] Administration Bisacodyl 10 mg 01/21/18 21:45 Dulcolax PO DAILY PRN Constipation Calamine/Phenol 1 applic 01/22/18 06:00 02/02/18 05:20 Calmoseptine Ointment TOPICAL 1 applicatio 0600,2200 [facility] Administration Protocol Cholecalciferol 2,000 unit 01/22/18 06:00 02/02/18 05:22 Vitamin D PO 2,000 unit DAILY [facility] Administration Colchicine 0.6 mg 01/22/18 14:00 02/01/18 09:49 Colchicine PO 0.6 mg QODAY@0800 [facility] Administration Cyclobenzaprine HCl 10 mg 01/21/18 15:45 01/31/18 08:59 Flexeril PO 10 mg TID PRN PRN Administration muscle spasm Diltiazem HCl 180 mg 01/22/18 06:00 02/02/18 05:21 Cardizem Cd PO 180 mg DAILY [facility] Administration Enoxaparin Sodium 30 mg 01/22/18 06:00 02/02/18 07:06 Lovenox SC 30 mg DAILY@0600 [facility] Administration Fluticasone Propionate 2 spray 01/27/18 05:34 Flonase Nasal [place] NASAL DAILY PRN PRN NASAL DRYNESS Gabapentin 300 mg 01/21/18 17:45 02/02/18 08:07 Neurontin PO 300 mg TIDCM [facility] Administration Hydroxychloroquine Sulfate 200 mg 01/22/18 08:00 02/02/18 08:07 Plaquenil PO 200 mg DAILYCM [facility] Administration Cefepime HCl 2 gm/ Sodium 100 mls @ 200 mls/hr 01/21/18 22:00 02/02/18 09:11 Chloride IV 200 mls/hr Q12@1000,2200 [facility] Administration Vancomycin IV Pharmacy to Dose 500 mls @ 250 mls/hr 01/22/18 10:00 1,250 ea/ Sodium Chloride IV PRN PRN Protocol Sodium Chloride 250 mls @ 15 mls/hr 01/21/18 19:55 02/01/18 22:27 IV 15 mls/hr .[id number] PRN Administration SALINE FLUSH Linagliptin 5 mg 01/22/18 06:00 02/02/18 05:22 Tradjenta PO 5 mg DAILY [facility] Administration Multivitamins/Minerals 1 tablet 01/22/18 08:00 02/02/18 08:07 Multivitamin With Minerals PO 1 tablet DAILY@0800 [facility] Administration Nutritional Formula 1 packet 01/21/18 17:00 02/02/18 08:07 Pancho - [place] Flavor PO 1 packet BIDCM [facility] Administration Nutritional Formula (Lactose Free) 120 ml 01/22/18 07:45 02/02/18 08:07 Glucerna Shake PO Not Given TIDCM [facility] Nystatin 1 applic 01/22/18 06:00 02/02/18 05:21 Mycostatin Powder TOPICAL 1 applicatio 0600,2200 [facility] Administration Protocol [id number] Ethyl Esters 1 gm 01/22/18 06:00 02/02/18 05:21 Lovaza PO 1 gm DAILY [facility] Administration Ondansetron HCl 4 mg 02/02/18 09:44 02/02/18 10:15 Zofran Odt PO 4 mg Q6H PRN PRN Administration NAUSEA Oxycodone HCl 5 mg 01/21/18 21:45 02/02/18 08:13 Oxyir PO 5 mg Q4H PRN PRN Administration SEVERE PAIN (6-10/10) Polyethylene Glycol 17 gm 01/22/18 06:00 02/02/18 05:21 Miralax PO Not Given DAILY [facility] Polysaccharide Iron Complex 150 mg 01/23/18 08:00 02/02/18 08:11 Ferrex 150 PO 150 mg DAILYCM [facility] Administration Pramipexole Dihydrochloride 0.25 mg 01/26/18 18:38 01/28/18 20:52 Mirapex PO 0.25 mg DAILY PRN Administration RESTLESSNESS Senna/Docusate Sodium 2 tablet 01/22/18 06:00 02/02/18 05:21 Senokot-S, Loly-Colace PO Not Given BID [facility] Sodium Chloride 10 ml 01/21/18 19:55 02/02/18 09:11 IV 10 ml UD PRN Administration PICC FLUSH Tramadol HCl 50 mg 01/21/18 21:46 02/01/18 13:35 Ultram PO 50 mg TID PRN PRN Administration MODERATE PAIN (4-5/10) Problem List (Last Reviewed 01/21/18 @ 12:13 by Arslan Robbins MD) Open left ankle fracture (Acute) Anemia (Acute) Rheumatoid arthritis (Chronic) Gout (Chronic) Tinea unguium (Chronic) Type 2 diabetes mellitus with diabetic polyneuropathy (Chronic) Vital Signs Temp Pulse Resp BP Pulse Ox 98.0 F 73 18 148/67 H 97 02/01/18 16:00 02/02/18 08:17 02/02/18 06:09 02/01/18 16:00 02/02/18 08:17 Oxygen Delivery Method Room Air Weight: 105.4 kg Body Mass Index (BMI) 37.3 Sodium 140 mmol/L (136-145) 01/31/18 08:00 Potassium 4.3 mmol/L (3.5-5.1) 01/31/18 08:00 Chloride 109 mmol/L (98-107) H 01/31/18 08:00 Carbon Dioxide 23.0 mmol/L (21.0-32.0) 01/31/18 08:00 Anion Gap 8 (5-15) 01/31/18 08:00 BUN 67 mg/dL (7-18) H 01/31/18 08:00 Creatinine 1.69 mg/dL (0.55-1.02) H 01/31/18 08:00 Est GFR (MDRD) Af Amer 40 mL/min (>60) L 01/31/18 08:00 Est GFR (MDRD) Non-Af 33 mL/min (>60) L 01/31/18 08:00 BUN/Creatinine Ratio 39.6 RATIO (10-20) H 01/31/18 08:00 Glucose 98 mg/dL (74-106) 01/31/18 08:00 Vancomycin Trough 18.5 ug/mL (5.0-15.0) H 01/28/18 00:40 Random Vancomycin 15.9 ug/mL (0.0-15.0) H 02/02/18 07:04 Assessment/Plan: Psychotropic Medications: Unnecessary Medications: Bowel Regimen: - Provider Comments Provider responsibility: Provider responsible to enter orders to implement recommendations Provider Comments to Recommendations by Pharmacy: Agree
[2018-02-02 16:00] VITALS: BP 170/74; PULSE 69; RESP 20; TEMP 35.7; O2SAT 99
--- NOTE | 2018-02-02 16:04 | NURSING ---
pt back from infusion center at this time. will administer vanc as ordered.
[2018-02-02] MEDS: Vancomycin IV 1,000 MG/200 ML BAG 200 MG IV (16:48)
[2018-02-02] MEDS: Acetaminophen 500 MG Tablet 1000 MG PO (16:49)
[2018-02-02] MEDS: Glucerna Shake 120 ML LIQUID PO (16:49)
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
[2018-02-02] MEDS: 0.9% NaCl IVPB Med Flush (250 mL) 15 ML IV (21:59)
[2018-02-02] MEDS: Amitriptyline 25 MG Tablet 75 MG PO (22:15)
[2018-02-02] MEDS: Atorvastatin Calcium 40 MG Tablet PO (22:15)
[2018-02-03] MEDS: Enoxaparin 30 MG/0.3 ML Syringe SC (05:52)
[2018-02-03] MEDS: dilTIAZem CD 180 MG Capsule PO (05:52)
[2018-02-03] MEDS: Omega-3 Acid Ethyl Esters 1 GM Capsule PO (05:52)
[2018-02-03] MEDS: Atenolol 50 MG Tablet PO (05:52)
[2018-02-03] MEDS: LINAGLIPTIN 5 MG TABLET PO (05:52)
[2018-02-03] MEDS: traMADol 50 MG Tablet PO ×2 (05:56→21:36)
[2018-02-03] MEDS: Acetaminophen 500 MG Tablet 1000 MG PO (05:56)
[2018-02-03] MEDS: Menthol/Lanolin/Calamine/Znox 113 GM Tube 1 APPLIC TOPICAL ×2 (05:59→21:38)
[2018-02-03] MEDS: Nystatin Powder 15gm Bottle 1 APPLIC TOPICAL ×2 (05:59→21:37)
[2018-02-03] MEDS: Glucerna Shake 120 ML LIQUID PO ×3 (08:23→17:02)
[2018-02-03] MEDS: Gabapentin 300 MG Capsule PO ×3 (08:25→17:00)
[2018-02-03] MEDS: Allopurinol 300 MG Tablet PO (08:25)
[2018-02-03] MEDS: Multivitamins,Ther W-Minerals Tablet 1 TABLET PO (08:25)
[2018-02-03] MEDS: Hydroxychloroquine 200 MG Tablet PO (08:25)
[2018-02-03] MEDS: Iron Polysaccharide Complex 150 MG CAPSULE PO (08:25)
[2018-02-03] MEDS: 0.9% NaCl PICC Flush 10 ML IV (09:42)
--- NOTE | 2018-02-03 11:01 | PN.ID_ITS ---
Patient Problems: Active and Suspected Problems (Last Reviewed 01/21/18 @ 12:13 by Arslan Robbins MD) Open left ankle fracture (Acute) Anemia (Acute) Subjective: Feeling good, no fever, no n/v/d. - Physical Exam General: Alert, Cooperative, No apparent distress Lungs: Clear to auscultation, Normal air movement Cardiovascular: Regular rate, Regular Rhythm Abdomen: Soft, Non Tender, Non-Distended Skin: Ulcer/ Wound - LLE wrapped, external hardware in place Vital Signs Temp Pulse Resp BP Pulse Ox 96.2 F L 69 20 H 170/74 H 99 02/02/18 16:00 02/02/18 16:00 02/02/18 16:00 02/02/18 16:00 02/02/18 16:00 Oxygen Delivery Method Room Air Weight: 105.4 kg Body Mass Index (BMI) 37.3 Intake and Output for Last 24 Hours 02/01/18 02/02/18 02/03/18 23:59 23:59 23:59 Intake Total 800 / 800 340 / 340 Output Total 3700 / 3700 1850 / 1850 Balance -2900 / -2900 -1510 / -1510 Laboratory Tests Past 24 Hrs 02/02/18 07:04 Blood Type Cancelled Antibody Screen Cancelled Crossmatch See Detail Medical Necessity - Tobacco Use Smoking Status: Former smoker Tobacco Use: Non-smoker Route of nutrition/ use of supplements: [] Nutritional Intake: [] IV Site: [] [place] Catheter: [] - Assessment/Plan Antibiotics: [] Assessment/Plan: [] Active and Suspected Problems (Last Reviewed 01/21/18 @ 12:13 by Arslan Robbins MD) Open left ankle fracture (Acute) Anemia (Acute) 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 No sign of endocarditis on finger/toenails. No spine tenderness. Bcx from 01/16 is neg. TTE done, no need for YEIMY at this time. Taken to OR for debridement by Dr. Covington 01/20. BKA may be necessary. Continue vanc. Has nausea with PCN, tolerates cefazolin, amoxicillin with no issue. Narrowed meropenem to cefepime given past cx here and at [place] with Pseudomonas spp. Cr at baseline. Plan on at least 6 week course of iv abx and then indefinite course with po given infected hardware. Stop date for vanc/cefepime planned for 03/03/18. Weekly bmp, cbc, esr, and vanc trough while on iv abx. After finishing iv abx, plan will be for indefinite course of po doxy 100mg bid. Now taken to OR 01/29 for hardware removal and external fixator placement. Bone cx from that surgery (+) for mRSA. Repeat surgery planned for 01/05. Stop date will be pushed back based on need for ongoing debridement and ongoing infection. Will follow.
--- NOTE | 2018-02-03 11:38 | MDS.RN ---
Addendum entered by Mary Cummins 02/03/18 11:46: resident was non-ambulatory during lookback period d/t unable to maintain NWB status LLE Original Note: Information for the mds was obtained from review of the clinical record, interview of resident, staff, and direct observation of resident's care.
[2018-02-03] MEDS: oxyCODONE 5 MG Tablet PO (11:50)
--- NOTE | 2018-02-03 14:19 | NURSING ---
Dressing remains D&I to the LLE as ordered. Dr Covington performing dressing changes. external fixator in place. no breakthrough drainage noted. will monitor as needed.
[2018-02-03 16:00] VITALS: BP 143/99; PULSE 70; RESP 20; TEMP 36.6; O2SAT 100
--- NOTE | 2018-02-03 16:26 | CASEMGMT ---
Brief interview for mental status (BIMS) and resident mood interview (PHQ-9) completed on this day. BIMS score 13/15. PHQ-9 score 07/25
[2018-02-03] MEDS: 0.9% NaCl IVPB Med Flush (250 mL) 15 ML IV (21:24)
[2018-02-03] MEDS: Amitriptyline 25 MG Tablet 75 MG PO (21:36)
[2018-02-03] MEDS: Atorvastatin Calcium 40 MG Tablet PO (21:37)
[2018-02-04] MEDS: traMADol 50 MG Tablet PO ×2 (04:35→17:02)
[2018-02-04] MEDS: Atenolol 50 MG Tablet PO (04:36)
[2018-02-04] MEDS: Enoxaparin 30 MG/0.3 ML Syringe SC (04:36)
[2018-02-04] MEDS: LINAGLIPTIN 5 MG TABLET PO (04:36)
[2018-02-04] MEDS: Omega-3 Acid Ethyl Esters 1 GM Capsule PO (04:36)
[2018-02-04] MEDS: dilTIAZem CD 180 MG Capsule PO (04:37)
[2018-02-04 04:38] LABS: Hemoglobin 9.6 g/dl (12.0-15.0)
[2018-02-04] MEDS: Menthol/Lanolin/Calamine/Znox 113 GM Tube 1 APPLIC TOPICAL ×2 (04:41→22:43)
[2018-02-04] MEDS: Nystatin Powder 15gm Bottle 1 APPLIC TOPICAL ×2 (04:42→22:44)
[2018-02-04] MEDS: Glucerna Shake 120 ML LIQUID PO ×3 (09:06→16:58)
[2018-02-04] MEDS: Gabapentin 300 MG Capsule PO ×3 (09:07→16:58)
[2018-02-04] MEDS: Iron Polysaccharide Complex 150 MG CAPSULE PO (09:07)
[2018-02-04] MEDS: Hydroxychloroquine 200 MG Tablet PO (09:08)
[2018-02-04] MEDS: Allopurinol 300 MG Tablet PO (09:08)
[2018-02-04] MEDS: Multivitamins,Ther W-Minerals Tablet 1 TABLET PO (09:08)
[2018-02-04] MEDS: 0.9% NaCl PICC Flush 10 ML IV (09:58)
[2018-02-04] MEDS: 0.9% NaCl IVPB Med Flush (250 mL) 15 ML IV ×2 (09:58→20:50)
--- NOTE | 2018-02-04 10:52 | NURSING ---
Dressing is D&I to the left foot/ankle. pt is scheduled for further bone debridement and possible skin substitute on 02/05/[address] Covington. this nurse is available as needed to assist with wound care. Dr Covington has been changing dressings currently.
[2018-02-04] MEDS: oxyCODONE 5 MG Tablet PO ×2 (11:25→22:42)
[2018-02-04 16:00] VITALS: BP 155/81; PULSE 67; RESP 20; TEMP 36.6; O2SAT 98
[2018-02-04 17:18] LABS: Vancomycin, Random Level 13.7 ug/mL (0.0-15.0)
--- NOTE | 2018-02-04 19:28 | PCM.RX.CS ---
Consult Pharmacy has been consulted to manage selected antiobiotic: Vancomycin Type of Consult: Follow-up Suspected Infection: Osteomyelitis Prior Doses of Antibiotics Received/Current Regimen: Medications Discontinued Medications Vancomycin HCl () 500 mg in 100 mls @ 100 mls/hr IV X1 ONE Stop: 01/30/18 08:59 Last Admin: 01/30/18 08:45 Dose: 100 mls/hr Vancomycin HCl (Vancomycin) 1,000 mg in 200 mls @ 200 mls/hr IV X1 ONE Stop: 02/02/18 17:29 Last Admin: 02/02/18 16:48 Dose: 200 mls/hr Vancomycin HCl 750 mg/ Sodium (Chloride) 265 mls @ 250 mls/hr IV X1 ONE Stop: 02/01/18 09:33 Last Admin: 02/01/18 10:38 Dose: 250 mls/hr Labs: Sodium 140 mmol/L (136-145) 01/31/18 08:00 Potassium 4.3 mmol/L (3.5-5.1) 01/31/18 08:00 Chloride 109 mmol/L (98-107) H 01/31/18 08:00 Carbon Dioxide 23.0 mmol/L (21.0-32.0) 01/31/18 08:00 Anion Gap 8 (5-15) 01/31/18 08:00 BUN 67 mg/dL (7-18) H 01/31/18 08:00 Creatinine 1.69 mg/dL (0.55-1.02) H 01/31/18 08:00 Est GFR (MDRD) Af Amer 40 mL/min (>60) L 01/31/18 08:00 Est GFR (MDRD) Non-Af 33 mL/min (>60) L 01/31/18 08:00 BUN/Creatinine Ratio 39.6 RATIO (10-20) H 01/31/18 08:00 Glucose 98 mg/dL (74-106) 01/31/18 08:00 Vancomycin Trough 18.5 ug/mL (5.0-15.0) H 01/28/18 00:40 Random Vancomycin 13.7 ug/mL (0.0-15.0) 02/04/18 16:30 Weight used for dosin kg Goal Trough: 15-20 mcg/mL Pharmacy Plan for Drug Dosing: Patient likely at steady-state at this time. Recommend vancomycin 500mg IV q24h based on previous levels. With patient's large BMI and slowly improving renal function, may likely require further adjustments but q24h schedule will allow for quicker changes based on current trough being quite a bit lower than expected. 500mg q24h dosing estimated trough is 17 mcg/mL. Trough before the 3rd dose per nomogram. Pharmacy Service will continue to monitor and adjust dosing as required. Follow-Up Labs: Trough Vancomycin - 02/06 @ 1930
--- NOTE | 2018-02-04 20:11 | NURSING ---
Dr. Covington in to see pt. Pt to go to surgery at 10am 02/04.
[2018-02-04] MEDS: Vancomycin IV 500 MG/100 ML BAG 100 MG IV (20:50)
[2018-02-04] MEDS: Amitriptyline 25 MG Tablet 75 MG PO (22:40)
[2018-02-04] MEDS: Atorvastatin Calcium 40 MG Tablet PO (22:40)
[2018-02-05] MEDS: 0.9% NaCl PICC Flush 10 ML IV ×2 (05:13→20:05)
[2018-02-05] MEDS: dilTIAZem CD 180 MG Capsule PO (05:13)
[2018-02-05] MEDS: Omega-3 Acid Ethyl Esters 1 GM Capsule PO (05:13)
[2018-02-05] MEDS: Atenolol 50 MG Tablet PO (05:13)
[2018-02-05] MEDS: traMADol 50 MG Tablet PO ×2 (05:13→21:33)
[2018-02-05 05:23] LABS: Absolute Lymphocyte Count 2.63 X10^3/ul (0.83-4.51); Absolute Neutrophil Count 3.5 X10^3/uL (2.0-7.7); Basophil# 0.04 X10^3/uL; Basophil% 0.5 % (0-1); Eosinophil# 0.41 X10^3/uL; Eosinophils% 5.4 % (0-5); Hematocrit 31.1 % (37-47); Hemoglobin 9.8 g/dl (12.0-15.0); Lymphocyte # 2.63 X10^3/ul (4.0); Lymphocyte % 34.8 % (19-41); Mean Corp Hgb Conc 31.5 g/gl (32-36); Mean Corpuscular Hgb 27.4 pg (27.0-32.0); Mean Corpuscular Volume 86.9 fL (81-99); Mean Platelet Vol. 9.1 fl (6.2-12.0); Monocyte% 11.9 % (0-10); Neutrophil # 3.52 X10^3/uL (2.7-7.7); Neutrophil % 46.7 % (47-70); POSITIVE COUNT NO; POSITIVE DIFFERENTIAL NO; POSITIVE MORPHOLOGY NO; Platelet Count 202 K/mm3 (150-450); RBC Distribution Width CV 15.9 % (11.6-14.6); RBC Distribution Width SD 50.5 fl (35.1-43.9); Red Blood Count 3.58 M/mm3 (4.2-5.4); White Blood Count 7.6 K/mm3 (4.4-11.0)
[2018-02-05 05:27] LABS: Erythrocyte Sedimentation Rate 71 mm/hr (0-30)
[2018-02-05 05:32] LABS: Anion Gap 7 (5-15); BUN 70 mg/dL (7-18); BUN/Creat Ratio 42.9 RATIO (10-20); Calcium,Total 9.2 mg/dL (8.5-10.1); Chloride 105 mmol/L (98-107); Creatinine, Serum 1.63 mg/dL (0.55-1.02); EST Glomerular Filtration Rate 34 mL/min (>60); Est Glom Filt Rate - Afr Amer 41 mL/min (>60); Estimated Creatinine Clearance 34.79 ml/min; Glucose 108 mg/dL (74-106); Potassium 4.3 mmol/L (3.5-5.1); Sodium Level 139 mmol/L (136-145)
[2018-02-05 09:41] LABS: Bedside Glucose 97 mg/dL (70-110)
[2018-02-05 12:50] LABS: Bedside Glucose 132 mg/dL (70-110)
--- NOTE | 2018-02-05 13:01 | NURSING ---
recieved pt from PACU at this time. pt A+Ox3, VSS, see orders
[2018-02-05] MEDS: Gabapentin 300 MG Capsule PO ×2 (14:08→17:06)
[2018-02-05] MEDS: Glucerna Shake 120 ML LIQUID PO ×2 (14:08→17:06)
[2018-02-05 15:38] VITALS: BP 136/71; PULSE 68; RESP 16; TEMP 36.8; O2SAT 98
[2018-02-05] MEDS: Vancomycin IV 500 MG/100 ML BAG 100 MG IV (20:03)
[2018-02-05] MEDS: 0.9% NaCl IVPB Med Flush (250 mL) 15 ML IV (20:03)
[2018-02-05] MEDS: Amitriptyline 25 MG Tablet 75 MG PO (21:33)
[2018-02-05] MEDS: Atorvastatin Calcium 40 MG Tablet PO (21:33)
[2018-02-05] MEDS: Nystatin Powder 15gm Bottle 1 APPLIC TOPICAL (21:43)
[2018-02-05] MEDS: Menthol/Lanolin/Calamine/Znox 113 GM Tube 1 APPLIC TOPICAL (21:43)
[2018-02-05 21:53] LABS: Glucose, Dipstick 50 mg/dl (Normal); Ketone-Dipstick 5 mg/dl (Negative); Leukocyte Esterase-Dipstick 25 /ul (Negative); Nitrite-Dipstick Negative (Negative); Occult Blood-Urine 250 /ul (Negative); Protein-Dipstick 500 mg/dl (Negative); Specific Gravity, Urine 1.015 (1.002-1.030); Urine Bilirubin Dipstick Negative (Negative); Urine Urobilinogen Normal (Normal)
[2018-02-05 21:57] LABS: Color, Urine Yellow (Yellow); Urine Clarity Sl Cloudy (Clear)
[2018-02-05 22:02] LABS: Bacteria RARE /hpf (None Seen); Mucous, Urine RARE /hpf (<or=2+); Red Blood Cells-Urine > 100 SEEN /hpf (0-5); Squamous Epithelial Cells - UA 0-5 SEEN /hpf (5-10); White Blood Cells 0-5 SEEN /hpf (0-5)
[2018-02-06] MEDS: oxyCODONE 5 MG Tablet PO ×3 (03:07→16:49)
[2018-02-06] MEDS: Enoxaparin 30 MG/0.3 ML Syringe SC (04:55)
[2018-02-06] MEDS: LINAGLIPTIN 5 MG TABLET PO (04:55)
[2018-02-06] MEDS: Atenolol 50 MG Tablet PO (04:55)
[2018-02-06] MEDS: Omega-3 Acid Ethyl Esters 1 GM Capsule PO (04:55)
[2018-02-06] MEDS: dilTIAZem CD 180 MG Capsule PO (04:56)
[2018-02-06] MEDS: Menthol/Lanolin/Calamine/Znox 113 GM Tube 1 APPLIC TOPICAL ×2 (04:56→20:38)
[2018-02-06] MEDS: Nystatin Powder 15gm Bottle 1 APPLIC TOPICAL ×2 (04:57→20:38)
[2018-02-06] MEDS: Glucerna Shake 120 ML LIQUID PO ×3 (08:06→16:46)
[2018-02-06] MEDS: Multivitamins,Ther W-Minerals Tablet 1 TABLET PO (08:07)
[2018-02-06] MEDS: Gabapentin 300 MG Capsule PO ×3 (08:07→16:46)
[2018-02-06] MEDS: Hydroxychloroquine 200 MG Tablet PO (08:07)
[2018-02-06] MEDS: Allopurinol 300 MG Tablet PO (08:07)
[2018-02-06] MEDS: Iron Polysaccharide Complex 150 MG CAPSULE PO (08:07)
[2018-02-06 08:36] LABS: Bedside Glucose 182 mg/dL (70-110)
[2018-02-06] MEDS: 0.9% NaCl PICC Flush 10 ML IV ×2 (10:40→20:34)
--- NOTE | 2018-02-06 13:58 | PCM.PN.ID ---
Patient Problems: Active and Suspected Problems (Last Reviewed 01/21/18 @ 12:13 by Arslan Robbins MD) Open left ankle fracture (Acute) Anemia (Acute) Subjective: Feeling ok, pain controlled, no fever, no issues with picc, no n/v/d. - Physical Exam General: Alert, Cooperative, No apparent distress Lungs: Clear to auscultation, Normal air movement Cardiovascular: Regular rate, Regular Rhythm Abdomen: Soft, Non Tender, Non-Distended Skin: Ulcer/ Wound - leg wrapped Vital Signs Temp Pulse Resp BP Pulse Ox 98.2 F 68 16 136/71 H 98 02/05/18 15:38 02/05/18 15:38 02/05/18 15:38 02/05/18 15:38 02/05/18 15:38 Oxygen Delivery Method Room Air Weight: 105.4 kg Body Mass Index (BMI) 37.3 Intake and Output for Last 24 Hours 02/04/18 02/05/18 02/06/18 23:59 23:59 23:59 Intake Total 1592 / 1592 240 / 240 600 / 600 Output Total 4000 / 4000 1775 / 1775 1700 / 1700 Balance -2408 / -2408 -1535 / -1535 -1100 / -1100 Laboratory Tests Past 24 Hrs 02/05/18 21:35 Urine Color Yellow Urine Clarity Sl Cloudy Urine pH 6.0 Ur Specific [place] 1.015 Urine Protein 500 H Urine Glucose (UA) 50 H Urine Ketones 5 H Urine Occult Blood 250 H Urine Nitrite Negative Urine Bilirubin Negative Urine Urobilinogen Normal Ur Leukocyte Esterase 25 H Urine RBC > 100 SEEN Urine WBC 0-5 SEEN Ur Squamous Epith Cells 0-5 SEEN Urine Bacteria RARE Urine Mucus RARE POC Glucose 02/06/18 06:46 POC Glucose 182 H Medical Necessity - Tobacco Use Smoking Status: Former smoker Tobacco Use: Non-smoker Route of nutrition/ use of supplements: [] Nutritional Intake: [] IV Site: [] Gardner Catheter: [] - Assessment/Plan Antibiotics: [] Assessment/Plan: [] Active and Suspected Problems (Last Reviewed 01/21/18 @ 12:13 by Arslan Robbins MD) Open left ankle fracture (Acute) Anemia (Acute) 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 No sign of endocarditis on finger/toenails. No spine tenderness. Bcx from 01/16 is neg. TTE done, no need for YEIMY at this time. Taken to OR for debridement by Dr. Covington 01/20. BKA may be necessary. Continue vanc. Has nausea with PCN, tolerates cefazolin, amoxicillin with no issue. Narrowed meropenem to cefepime given past cx here and at [place] with Pseudomonas spp. Cr at baseline. Plan on at least 6 week course of iv abx and then indefinite course with po given infected hardware. Stop date for vanc/cefepime planned for 03/03/18. Weekly bmp, cbc, esr, and vanc trough while on iv abx. After finishing iv abx, plan will be for indefinite course of po doxy 100mg bid. Taken to OR 01/29 for hardware removal and external fixator placement. Bone cx from that surgery (+) for mRSA. Repeat surgery again on 01/05. Stop date will be pushed back based on need for ongoing debridement and ongoing infection. Will follow.
--- NOTE | 2018-02-06 15:16 | NURSING ---
Dr Covington had taken patient back to surgery on 02/05/18. orders to leave dressing in place and just reinforce as needed. Podiatry has been changing the dressings. will assist with wound care as needed.
[2018-02-06 16:00] VITALS: BP 140/75; PULSE 72; RESP 20; TEMP 36.6; O2SAT 95
[2018-02-06] MEDS: Acetaminophen 500 MG Tablet 1000 MG PO (16:50)
[2018-02-06] MEDS: Vancomycin IV 500 MG/100 ML BAG 100 MG IV (20:31)
[2018-02-06] MEDS: 0.9% NaCl IVPB Med Flush (250 mL) 15 ML IV (20:31)
--- NOTE | 2018-02-06 21:14 | PCM.RX.CS ---
Consult Pharmacy has been consulted to manage selected antiobiotic: Vancomycin Type of Consult: Follow-up Prior Doses of Antibiotics Received/Current Regimen: Vancomycin 500mg IV q24h Labs: Sodium 139 mmol/L (136-145) 02/05/18 05:05 Potassium 4.3 mmol/L (3.5-5.1) 02/05/18 05:05 Chloride 105 mmol/L (98-107) 02/05/18 05:05 Carbon Dioxide 27.0 mmol/L (21.0-32.0) 02/05/18 05:05 Anion Gap 7 (5-15) 02/05/18 05:05 BUN 70 mg/dL (7-18) H 02/05/18 05:05 Creatinine 1.63 mg/dL (0.55-1.02) H 02/05/18 05:05 Est GFR (MDRD) Af Amer 41 mL/min (>60) L 02/05/18 05:05 Est GFR (MDRD) Non-Af 34 mL/min (>60) L 02/05/18 05:05 BUN/Creatinine Ratio 42.9 RATIO (10-20) H 02/05/18 05:05 Glucose 108 mg/dL (74-106) H 02/05/18 05:05 Vancomycin Trough 13.0 ug/mL (5.0-15.0) 02/06/18 19:57 Random Vancomycin 13.7 ug/mL (0.0-15.0) 02/04/18 16:30 Estimated Creatinine Clearance: 34ml/min Goal Trough: 15-20 mcg/mL Pharmacy Plan for Drug Dosing: Pt's trough resulted at 13.0. Recommend continuing current dose of Vancomycin 500mg q24h and rechecking trough before the 3rd dose due to recent high lab values. Pharmacy Service will continue to monitor and adjust dosing as required. Follow-Up Labs: Trough Vancomycin - 02/09/18 at 1930 Labs to be done on [date and time ordered]: trough level 02/09/18 at 1930
--- NOTE | 2018-02-06 21:43 | NURSING ---
Dr Covington here to see pt
[2018-02-06] MEDS: Atorvastatin Calcium 40 MG Tablet PO (22:00)
[2018-02-06] MEDS: Amitriptyline 25 MG Tablet 75 MG PO (22:00)
[2018-02-07] MEDS: Atenolol 50 MG Tablet PO (05:31)
[2018-02-07] MEDS: Omega-3 Acid Ethyl Esters 1 GM Capsule PO (05:31)
[2018-02-07] MEDS: LINAGLIPTIN 5 MG TABLET PO (05:31)
[2018-02-07] MEDS: Menthol/Lanolin/Calamine/Znox 113 GM Tube 1 APPLIC TOPICAL ×2 (05:32→20:08)
[2018-02-07] MEDS: Nystatin Powder 15gm Bottle 1 APPLIC TOPICAL ×2 (05:32→20:11)
[2018-02-07] MEDS: dilTIAZem CD 180 MG Capsule PO (05:32)
[2018-02-07] MEDS: Enoxaparin 30 MG/0.3 ML Syringe SC (05:33)
[2018-02-07] MEDS: Hydroxychloroquine 200 MG Tablet PO (09:35)
[2018-02-07] MEDS: Gabapentin 300 MG Capsule PO ×3 (09:35→17:32)
[2018-02-07] MEDS: Multivitamins,Ther W-Minerals Tablet 1 TABLET PO (09:35)
[2018-02-07] MEDS: Allopurinol 300 MG Tablet PO (09:35)
[2018-02-07] MEDS: Iron Polysaccharide Complex 150 MG CAPSULE PO (09:35)
[2018-02-07] MEDS: oxyCODONE 5 MG Tablet PO ×2 (09:39→20:26)
[2018-02-07] MEDS: Glucerna Shake 120 ML LIQUID PO ×2 (11:55→17:32)
[2018-02-07] MEDS: traMADol 50 MG Tablet PO (15:36)
[2018-02-07 16:00] VITALS: BP 142/76; PULSE 69; RESP 22; TEMP 36.9; O2SAT 99
[2018-02-07] MEDS: Senna/Docusate Sodium 1 Tablet 2 TABLET PO (17:33)
[2018-02-07] MEDS: 0.9% NaCl PICC Flush 10 ML IV ×2 (20:19→23:22)
[2018-02-07] MEDS: Vancomycin IV 500 MG/100 ML BAG 100 MG IV (20:19)
[2018-02-07] MEDS: Amitriptyline 25 MG Tablet 75 MG PO (21:15)
[2018-02-07] MEDS: Atorvastatin Calcium 40 MG Tablet PO (21:15)
[2018-02-07] MEDS: Pramipexole Di-HCl 0.25 MG Tablet PO (21:16)
[2018-02-07] MEDS: 0.9% NaCl IVPB Med Flush (250 mL) 15 ML IV (23:22)
[2018-02-08] MEDS: Menthol/Lanolin/Calamine/Znox 113 GM Tube 1 APPLIC TOPICAL ×2 (05:28→21:18)
[2018-02-08] MEDS: dilTIAZem CD 180 MG Capsule PO (05:29)
[2018-02-08] MEDS: Atenolol 50 MG Tablet PO (05:30)
[2018-02-08] MEDS: Omega-3 Acid Ethyl Esters 1 GM Capsule PO (05:30)
[2018-02-08] MEDS: Enoxaparin 30 MG/0.3 ML Syringe SC (05:30)
[2018-02-08] MEDS: Nystatin Powder 15gm Bottle 1 APPLIC TOPICAL ×2 (05:30→21:19)
[2018-02-08] MEDS: LINAGLIPTIN 5 MG TABLET PO (05:31)
[2018-02-08] MEDS: Iron Polysaccharide Complex 150 MG CAPSULE PO (07:46)
[2018-02-08] MEDS: Glucerna Shake 120 ML LIQUID PO ×3 (07:46→17:00)
[2018-02-08] MEDS: Allopurinol 300 MG Tablet PO (07:47)
[2018-02-08] MEDS: Multivitamins,Ther W-Minerals Tablet 1 TABLET PO (07:47)
[2018-02-08] MEDS: Gabapentin 300 MG Capsule PO ×3 (07:47→16:58)
[2018-02-08] MEDS: Hydroxychloroquine 200 MG Tablet PO (07:47)
[2018-02-08] MEDS: 0.9% NaCl PICC Flush 10 ML IV ×3 (09:01→22:31)
[2018-02-08 12:05] LABS: Bedside Glucose 126 mg/dL (70-110)
--- NOTE | 2018-02-08 12:21 | EKG12_ITS ---
Test Reason : ANXIETY Blood Pressure : / mmHG Vent. Rate : 066 BPM Atrial Rate : 066 BPM P-R Int : 154 ms QRS Dur : 096 ms QT Int : 422 ms P-R-T Axes : 026 035 046 degrees QTc Int : 442 ms Normal sinus rhythm Normal ECG When compared with ECG of 20-JAN-2018 04:45, Premature ventricular complexes are no longer Present Confirmed by SIMIN SKINNER, ERIN ([id number]), state editor BUTCH PATTERSON ([id number] on 02/11/2018 11:40:17 AM Referred By: Gerson Elizondo Confirmed By:ERIN DUVAL MD
--- NOTE | 2018-02-08 12:23 | NURSING ---
Addendum entered by Diandra Aviles 02/08/18 13:57: Dr. Elizondo reviewed EKG and labs, NO for 1 liter bolus of NS. BP down to 145/80, patient's states she feels better. Will continue to monitor. Original Note: Pt has c/o something not feeling right states she feels anxious. LSCTA, HR irregular, bowel sounds active, abdomen nontender, pulses 2+ to BL feet, circ checks WNL, small, hard, nontender lump to fold of left leg, behind knee, no bruising, PERRL. BLLE warm and pink. Vitals 186/88, 66, 99% RA, 20, 97.2. Denies increased pain, SOB or chest pain. Dr. Elizondo updated, NO for EKG, CBC, BMP and apply warm compress to lump qshift.
[2018-02-08 12:46] LABS: Absolute Lymphocyte Count 2.14 X10^3/ul (0.83-4.51); Absolute Neutrophil Count 3.2 X10^3/uL (2.0-7.7); Basophil# 0.04 X10^3/uL; Basophil% 0.6 % (0-1); Eosinophil# 0.35 X10^3/uL; Eosinophils% 5.2 % (0-5); Hematocrit 32.4 % (37-47); Hemoglobin 10.1 g/dl (12.0-15.0); Lymphocyte # 2.14 X10^3/ul (4.0); Lymphocyte % 31.8 % (19-41); Mean Corp Hgb Conc 31.2 g/gl (32-36); Mean Corpuscular Hgb 27.5 pg (27.0-32.0); Mean Corpuscular Volume 88.3 fL (81-99); Mean Platelet Vol. 9.3 fl (6.2-12.0); Monocyte# 0.98 X10^3/uL; Monocyte% 14.5 % (0-10); Neutrophil # 3.18 X10^3/uL (2.7-7.7); Neutrophil % 47.2 % (47-70); Platelet Count 190 K/mm3 (150-450); RBC Distribution Width CV 16.5 % (11.6-14.6); RBC Distribution Width SD 52.9 fl (35.1-43.9); Red Blood Count 3.67 M/mm3 (4.2-5.4); White Blood Count 6.7 K/mm3 (4.4-11.0)
[2018-02-08 12:47] LABS: POSITIVE COUNT NO; POSITIVE DIFFERENTIAL NO; POSITIVE MORPHOLOGY NO
[2018-02-08 12:55] LABS: Anion Gap 6 (5-15); BUN 69 mg/dL (7-18); BUN/Creat Ratio 50.4 RATIO (10-20); Calcium,Total 9.2 mg/dL (8.5-10.1); Chloride 104 mmol/L (98-107); Creatinine, Serum 1.37 mg/dL (0.55-1.02); EST Glomerular Filtration Rate 42 mL/min (>60); Est Glom Filt Rate - Afr Amer 51 mL/min (>60); Estimated Creatinine Clearance 41.39 ml/min; Glucose 163 mg/dL (74-106); Potassium 4.8 mmol/L (3.5-5.1); Sodium Level 137 mmol/L (136-145)
[2018-02-08] MEDS: 0.9% Normal Saline 1,000 ML 999 ML IV (14:45)
[2018-02-08 15:37] VITALS: BP 156/87; PULSE 67; RESP 18; TEMP 36.9; O2SAT 99
[2018-02-08] MEDS: traMADol 50 MG Tablet PO (17:03)
[2018-02-08 19:40] VITALS: BP 142/77; PULSE 74; RESP 18; TEMP 37.2; O2SAT 98
--- NOTE | 2018-02-08 19:46 | NURSING ---
Addendum entered by Kathy Turk 02/08/18 22:50: Dr Elizondo aware of pt still c/o not feeling right this evening, and c/o ^numbness to bilateral hands. NNO, continue to monitor. Original Note: Addendum entered by Kathy Turk 02/08/18 20:53: Dr Elizondo updated on pt's chest heaviness going away and pain to chest coming down with nitro and Milk of Magnesia. N.O. for dose of Protonix 40mg now, then make daily. Original Note: Pt continues to c/o chest pain and heaviness this evening, rating it 7/10. BP 142/77, pulse ox 98%, HR 74, T 98.9. Chest pain does not hurt with palpation. Dr Elizondo notified. N.O. for x1 dose Nitro 0.4mg.
[2018-02-08 20:10] VITALS: BP 140/73; PULSE 75
[2018-02-08] MEDS: Magnesium Hydroxide 30 ML UDC PO (20:11)
[2018-02-08] MEDS: 0.9% NaCl IVPB Med Flush (250 mL) 15 ML IV (20:17)
[2018-02-08] MEDS: Vancomycin IV 500 MG/100 ML BAG 100 MG IV (20:17)
[2018-02-08] MEDS: Pantoprazole Sodium 40 MG Tablet PO (21:18)
[2018-02-08] MEDS: Amitriptyline 25 MG Tablet 75 MG PO (21:19)
[2018-02-08] MEDS: Atorvastatin Calcium 40 MG Tablet PO (21:19)
[2018-02-09] MEDS: Menthol/Lanolin/Calamine/Znox 113 GM Tube 1 APPLIC TOPICAL ×2 (05:22→22:26)
[2018-02-09] MEDS: Enoxaparin 30 MG/0.3 ML Syringe SC (05:24)
[2018-02-09] MEDS: Nystatin Powder 15gm Bottle 1 APPLIC TOPICAL ×2 (05:24→22:26)
[2018-02-09] MEDS: dilTIAZem CD 180 MG Capsule PO (05:24)
[2018-02-09] MEDS: Omega-3 Acid Ethyl Esters 1 GM Capsule PO (05:24)
[2018-02-09] MEDS: LINAGLIPTIN 5 MG TABLET PO (05:25)
[2018-02-09] MEDS: Pantoprazole Sodium 40 MG Tablet PO (05:25)
[2018-02-09] MEDS: Atenolol 50 MG Tablet PO (05:25)
[2018-02-09] MEDS: Iron Polysaccharide Complex 150 MG CAPSULE PO (09:31)
[2018-02-09] MEDS: Gabapentin 300 MG Capsule PO ×3 (09:31→17:14)
[2018-02-09] MEDS: Hydroxychloroquine 200 MG Tablet PO (09:31)
[2018-02-09] MEDS: Multivitamins,Ther W-Minerals Tablet 1 TABLET PO (09:31)
[2018-02-09] MEDS: Allopurinol 300 MG Tablet PO (09:31)
[2018-02-09] MEDS: Glucerna Shake 120 ML LIQUID PO ×3 (09:32→17:13)
[2018-02-09] MEDS: Acetaminophen 500 MG Tablet 1000 MG PO ×2 (09:39→20:54)
[2018-02-09] MEDS: 0.9% NaCl PICC Flush 10 ML IV ×2 (09:44→20:58)
--- NOTE | 2018-02-09 13:49 | PN.ID_ITS ---
Patient Problems: Active and Suspected Problems (Last Reviewed 01/21/18 @ 12:13 by Arslan Robbins MD) Open left ankle fracture (Acute) Anemia (Acute) Subjective: Feeling ok but c/o anxiety. No fever, no n/v. - Physical Exam General: Alert, Cooperative, No apparent distress Lungs: Clear to auscultation, Normal air movement Cardiovascular: Regular rate, Regular Rhythm Abdomen: Soft, Non Tender, Non-Distended Skin: Ulcer/ Wound - LLE with external fixation Vital Signs Temp Pulse Resp BP Pulse Ox 98.9 F 75 18 140/73 H 98 02/08/18 19:40 02/08/18 20:10 02/08/18 19:40 02/08/18 20:10 02/08/18 19:40 Oxygen Delivery Method Room Air Weight: 105.4 kg Body Mass Index (BMI) 37.3 Intake and Output for Last 24 Hours 02/07/18 02/08/18 02/09/18 23:59 23:59 23:59 Intake Total 960 / 960 800 / 800 600 / 600 Output Total 5450 / 5450 4100 / 4100 2400 / 2400 Balance -4490 / -4490 -3300 / -3300 -1800 / -1800 Microbiology Past 72 Hours 02/05/18 21:35 Urine Culture - Final Urine Catheter - Gardner Culture exhibits no growth. 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 No sign of endocarditis on finger/toenails. No spine tenderness. Bcx from 01/16 is neg. TTE done, no need for YEIMY at this time. Taken to OR for debridement by Dr. Covington 01/20. BKA may be necessary. Continue vanc. Has nausea with PCN, tolerates cefazolin, amoxicillin with no issue. Narrowed meropenem to cefepime given past cx here and at [employer] with Pseudomonas spp. Cr at baseline. Plan on at least 6 week course of iv abx and then indefinite course with po given infected hardware. Stop date for vanc/cefepime planned for 03/03/18. Weekly bmp, cbc, esr, and vanc trough while on iv abx. After finishing iv abx, plan will be for indefinite course of po doxy 100mg bid. Taken to OR 01/29 for hardware removal and external fixator placement. Bone cx from that surgery (+) for mRSA. Repeat surgery again on 01/05. Stop date will be pushed back based on need for ongoing debridement and ongoing infection. Will follow.
[2018-02-09 16:00] VITALS: BP 146/78; PULSE 74; RESP 16; TEMP 35.5; O2SAT 99
[2018-02-09] MEDS: traMADol 50 MG Tablet PO (20:54)
[2018-02-09] MEDS: Amitriptyline 25 MG Tablet 75 MG PO (20:54)
[2018-02-09] MEDS: Atorvastatin Calcium 40 MG Tablet PO (20:56)
[2018-02-09] MEDS: 0.9% NaCl IVPB Med Flush (250 mL) 15 ML IV (20:58)
[2018-02-09] MEDS: Vancomycin IV 500 MG/100 ML BAG 100 MG IV (20:58)
[2018-02-09 20:59] LABS: Vancomycin, Trough Level 13.4 ug/mL (5.0-15.0)
[2018-02-09] MEDS: oxyCODONE 5 MG Tablet PO (23:35)
[2018-02-10] MEDS: Nystatin Powder 15gm Bottle 1 APPLIC TOPICAL ×2 (04:53→21:33)
[2018-02-10] MEDS: Hydroxychloroquine 200 MG Tablet PO (04:53)
[2018-02-10] MEDS: Omega-3 Acid Ethyl Esters 1 GM Capsule PO (04:53)
[2018-02-10] MEDS: Atenolol 50 MG Tablet PO (04:53)
[2018-02-10] MEDS: Pantoprazole Sodium 40 MG Tablet PO (04:53)
[2018-02-10] MEDS: dilTIAZem CD 180 MG Capsule PO (04:53)
[2018-02-10] MEDS: LINAGLIPTIN 5 MG TABLET PO (04:53)
[2018-02-10] MEDS: traMADol 50 MG Tablet PO ×2 (04:53→17:03)
[2018-02-10] MEDS: Enoxaparin 30 MG/0.3 ML Syringe SC (04:53)
[2018-02-10] MEDS: Menthol/Lanolin/Calamine/Znox 113 GM Tube 1 APPLIC TOPICAL ×2 (04:54→21:33)
[2018-02-10 05:00] VITALS: PULSE 75; O2SAT 98
[2018-02-10] MEDS: Glucerna Shake 120 ML LIQUID PO ×3 (07:53→17:09)
[2018-02-10] MEDS: Gabapentin 300 MG Capsule PO ×4 (07:54→21:32)
[2018-02-10] MEDS: Iron Polysaccharide Complex 150 MG CAPSULE PO (07:54)
[2018-02-10] MEDS: Allopurinol 300 MG Tablet PO (07:54)
[2018-02-10] MEDS: Multivitamins,Ther W-Minerals Tablet 1 TABLET PO (07:54)
--- NOTE | 2018-02-10 08:09 | PCM.RX.CS ---
Consult Pharmacy has been consulted to manage selected antiobiotic: Vancomycin Type of Consult: Follow-up Suspected Infection: Osteomyelitis Prior Doses of Antibiotics Received/Current Regimen: Medications Vancomycin HCl () 500 mg in 100 mls @ 100 mls/hr IV Q24H [facility] Last Admin: 02/09/18 20:58 Dose: 100 mls/hr Labs: Sodium 137 mmol/L (136-145) 02/08/18 12:33 Potassium 4.8 mmol/L (3.5-5.1) 02/08/18 12:33 Chloride 104 mmol/L (98-107) 02/08/18 12:33 Carbon Dioxide 27.0 mmol/L (21.0-32.0) 02/08/18 12:33 Anion Gap 6 (5-15) 02/08/18 12:33 BUN 69 mg/dL (7-18) H 02/08/18 12:33 Creatinine 1.37 mg/dL (0.55-1.02) H 02/08/18 12:33 Est GFR (MDRD) Af Amer 51 mL/min (>60) L 02/08/18 12:33 Est GFR (MDRD) Non-Af 42 mL/min (>60) L 02/08/18 12:33 BUN/Creatinine Ratio 50.4 RATIO (10-20) H 02/08/18 12:33 Glucose 163 mg/dL (74-106) H 02/08/18 12:33 Vancomycin Trough 13.4 ug/mL (5.0-15.0) 02/09/18 19:35 Random Vancomycin 13.7 ug/mL (0.0-15.0) 02/04/18 16:30 Microbiology: Microbiology 02/05/18 21:35 Urine Catheter - Gardner Urine Culture - Final Culture exhibits no growth. Weight used for dosin kg Goal Trough: 15-20 mcg/mL Pharmacy Plan for Drug Dosing: Patient with 2 consecutive levels similarly below goal. Recommend to increase vancomycin to 750mg IV q24h with trough prior to 3rd dose per nomogram. Pharmacy Service will continue to monitor and adjust dosing as required. Follow-Up Labs: Trough Vancomycin - 02/12 @ 1730
[2018-02-10] MEDS: 0.9% NaCl PICC Flush 10 ML IV (10:35)
[2018-02-10 16:00] VITALS: BP 160/76; PULSE 73; RESP 20; TEMP 36.9; O2SAT 98
[2018-02-10] MEDS: Senna/Docusate Sodium 1 Tablet 2 TABLET PO (17:00)
[2018-02-10] MEDS: Acetaminophen 500 MG Tablet 1000 MG PO (17:03)
[2018-02-10] MEDS: 0.9% Saline Lock 10 ML Syringe IV ×2 (17:05→21:28)
[2018-02-10] MEDS: 0.9% NaCl IVPB Med Flush (250 mL) 15 ML IV (21:27)
[2018-02-10] MEDS: Amitriptyline 25 MG Tablet 75 MG PO (21:32)
[2018-02-10] MEDS: Atorvastatin Calcium 40 MG Tablet PO (21:32)
[2018-02-11] MEDS: dilTIAZem CD 180 MG Capsule PO (04:11)
[2018-02-11] MEDS: LINAGLIPTIN 5 MG TABLET PO (04:11)
[2018-02-11] MEDS: Omega-3 Acid Ethyl Esters 1 GM Capsule PO (04:11)
[2018-02-11] MEDS: Pantoprazole Sodium 40 MG Tablet PO (04:11)
[2018-02-11] MEDS: oxyCODONE 5 MG Tablet PO ×2 (04:11→18:15)
[2018-02-11] MEDS: Enoxaparin 30 MG/0.3 ML Syringe SC (04:12)
[2018-02-11] MEDS: Atenolol 50 MG Tablet PO (04:12)
[2018-02-11] MEDS: Menthol/Lanolin/Calamine/Znox 113 GM Tube 1 APPLIC TOPICAL ×2 (04:16→22:02)
[2018-02-11] MEDS: Nystatin Powder 15gm Bottle 1 APPLIC TOPICAL ×2 (04:16→22:02)
[2018-02-11 06:46] LABS: Bedside Glucose 131 mg/dL (70-110)
[2018-02-11] MEDS: Iron Polysaccharide Complex 150 MG CAPSULE PO (07:51)
[2018-02-11] MEDS: Glucerna Shake 120 ML LIQUID PO ×3 (07:51→16:49)
[2018-02-11] MEDS: Hydroxychloroquine 200 MG Tablet PO (07:52)
[2018-02-11] MEDS: Allopurinol 300 MG Tablet PO (07:52)
[2018-02-11] MEDS: Multivitamins,Ther W-Minerals Tablet 1 TABLET PO (07:52)
[2018-02-11] MEDS: Gabapentin 300 MG Capsule PO ×4 (07:52→21:59)
[2018-02-11] MEDS: 0.9% Saline Lock 10 ML Syringe IV ×2 (10:18→21:58)
[2018-02-11 10:22] VITALS: PULSE 72; RESP 20; O2SAT 97
--- NOTE | 2018-02-11 11:02 | CASEMGMT ---
Brief interview for mental status (BIMS) and resident mood interview (PHQ-9) completed on this day. BIMS score 15/15. PHQ-9 score 09/24.
[2018-02-11 15:54] VITALS: BP 142/70; PULSE 74; RESP 20; TEMP 35.8; O2SAT 99
[2018-02-11] MEDS: 0.9% NaCl PICC Flush IV (16:55)
[2018-02-11] MEDS: 0.9% NaCl IVPB Med Flush (250 mL) 15 ML IV (21:51)
[2018-02-11] MEDS: Atorvastatin Calcium 40 MG Tablet PO (21:59)
[2018-02-11] MEDS: Amitriptyline 25 MG Tablet 75 MG PO (22:00)
[2018-02-12] MEDS: oxyCODONE 5 MG Tablet PO ×3 (00:01→21:25)
--- NOTE | 2018-02-12 00:04 | NURSING ---
Patient rang for nursing. Patient found to be agitated and upset because patient states that her leg hurts and that the dressings are too tight. Patient had partially unwrapped dressing to right leg demanding that scissors be given so she can cut off the rest of dressing. This nurse explained to patient the importance of her dressing and that patient does not want to get an infection by unwrapping dressing. Also explained to patient that Dr. Covington will be in tomorrow for see her. Patient much more calm and allowed this nurse to reinforce dressing. Patient medicated with pain meds at this time as well.
[2018-02-12 05:47] VITALS: BP 158/77; PULSE 83
[2018-02-12] MEDS: dilTIAZem CD 180 MG Capsule PO ×2 (05:47→08:34)
[2018-02-12] MEDS: Pantoprazole Sodium 40 MG Tablet PO (05:48)
[2018-02-12] MEDS: Omega-3 Acid Ethyl Esters 1 GM Capsule PO (05:48)
[2018-02-12] MEDS: Atenolol 50 MG Tablet PO (05:48)
[2018-02-12] MEDS: Enoxaparin 30 MG/0.3 ML Syringe SC (05:48)
[2018-02-12] MEDS: LINAGLIPTIN 5 MG TABLET PO (05:49)
[2018-02-12] MEDS: Menthol/Lanolin/Calamine/Znox 113 GM Tube 1 APPLIC TOPICAL ×2 (05:59→21:22)
[2018-02-12] MEDS: Nystatin Powder 15gm Bottle 1 APPLIC TOPICAL ×2 (05:59→21:22)
[2018-02-12 06:51] LABS: Bedside Glucose 124 mg/dL (70-110)
[2018-02-12 06:57] LABS: Absolute Lymphocyte Count 1.22 X10^3/ul (0.83-4.51); Absolute Neutrophil Count 0.1 X10^3/uL (2.0-7.7); Basophil# 0.04 X10^3/uL; Basophil% 1.8 % (0-1); Eosinophil# 0.12 X10^3/uL; Eosinophils% 5.4 % (0-5); Hematocrit 29.8 % (37-47); Hemoglobin 9.4 g/dl (12.0-15.0); Lymphocyte # 1.22 X10^3/ul (4.0); Lymphocyte % 55.2 % (19-41); Mean Corp Hgb Conc 31.5 g/gl (32-36); Mean Corpuscular Hgb 27.6 pg (27.0-32.0); Mean Corpuscular Volume 87.6 fL (81-99); Mean Platelet Vol. 9.3 fl (6.2-12.0); Monocyte# 0.72 X10^3/uL; Monocyte% 32.6 % (0-10); Neutrophil % 4.5 % (47-70); Platelet Count 139 K/mm3 (150-450); RBC Distribution Width CV 16.9 % (11.6-14.6); RBC Distribution Width SD 52.7 fl (35.1-43.9); White Blood Count 2.2 K/mm3 (4.4-11.0)
[2018-02-12 07:00] LABS: Differential Indicated SCAN CRITERIA MET; POSITIVE COUNT NO; POSITIVE DIFFERENTIAL YES; POSITIVE MORPHOLOGY NO
[2018-02-12 07:09] LABS: Anion Gap 9 (5-15); BUN 73 mg/dL (7-18); BUN/Creat Ratio 45.3 RATIO (10-20); Calcium,Total 8.7 mg/dL (8.5-10.1); Chloride 105 mmol/L (98-107); Creatinine, Serum 1.61 mg/dL (0.55-1.02); EST Glomerular Filtration Rate 35 mL/min (>60); Est Glom Filt Rate - Afr Amer 42 mL/min (>60); Estimated Creatinine Clearance 35.22 ml/min; Glucose 130 mg/dL (74-106); Potassium 4.3 mmol/L (3.5-5.1); Sodium Level 137 mmol/L (136-145)
[2018-02-12 07:18] LABS: Erythrocyte Sedimentation Rate 91 mm/hr (0-30)
[2018-02-12] MEDS: Allopurinol 300 MG Tablet PO (08:34)
[2018-02-12] MEDS: Iron Polysaccharide Complex 150 MG CAPSULE PO (08:34)
[2018-02-12] MEDS: Multivitamins,Ther W-Minerals Tablet 1 TABLET PO (08:34)
[2018-02-12] MEDS: Hydroxychloroquine 200 MG Tablet PO (08:34)
[2018-02-12] MEDS: Gabapentin 300 MG Capsule PO ×4 (08:34→21:26)
[2018-02-12] MEDS: Glucerna Shake 120 ML LIQUID PO ×3 (08:37→17:21)
--- NOTE | 2018-02-12 08:57 | NURSING ---
No blood return noted to PICC. Heparin not effective. Dr Mikhail mcgarry N.Geoff diaz.
--- NOTE | 2018-02-12 08:59 | NURSING ---
Dr Elizondo reviewed labs N.N.O.
[2018-02-12] MEDS: traMADol 50 MG Tablet PO (10:23)
[2018-02-12] MEDS: Acetaminophen 500 MG Tablet 1000 MG PO (10:23)
[2018-02-12] MEDS: 0.9% Saline Lock 10 ML Syringe IV ×2 (10:25→21:21)
[2018-02-12] MEDS: Alteplase 2 MG/2 ML Vial IV (11:27)
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
--- NOTE | 2018-02-12 13:12 | RAD_ITS ---
STUDY: X-RAY - LEFT TIBIA AND FIBULA REASON FOR EXAM: Female, 57 years old. Pain. No new injury. TECHNIQUE: Frontal and lateral view(s) of the tibia and fibula were obtained. COMPARISON: Frontal and lateral views of the left lower leg January 29, 2018. FINDINGS: External fixation device is again seen connected to metal pins entering the mid tibial diaphysis. There are also old pin tracts in the mid and distal diaphysis of the tibia. Prior resection of the distal fibula metaphysis is unchanged. Angulated, mildly displaced fracture of the medial malleolus seen on previous exams is not fully included in the [id number] tear. There is persistent 50% lateral subluxation and moderate lateral angulation of the tibiotalar articulation. New skin cristian project along the anterior and medial aspect of the left ankle. There is slightly worsened superficial soft tissue swelling in the mid to distal third of the lower leg. Atherosclerotic vascular calcifications also again noted. RAD/Tibia & Fibula 2 Views IMPRESSION: Closely stable x-ray examination of the left tibia and fibula, including prior resection of the distal fibula, displaced, angulated fracture of medial malleolus, and lateral subluxation of the ankle joint. Fixation pins in the mid tibial diaphysis are again seen connected to an external fixation device. There is mild increased superficial soft tissue swelling of the mid to distal third of the lower leg. Atherosclerotic vascular calcifications again noted. Electronically Signed: Parrish Morillo MD at 17:54 EST , Service support ,
--- NOTE | 2018-02-12 13:12 | RAD_ITS ---
STUDY: X-RAY - LEFT ANKLE REASON FOR EXAM: Female, 57 years old. Pain, no new injury. TECHNIQUE: 2 view(s) of the ankle. COMPARISON: 3 views of the left ankle January 29, 2018. FINDINGS: The lower leg and foot are secured by an external fixation device which extends across and moderately obscures detail of the ankle. Again seen is resection of the distal fibular metadiaphysis. There is an angulated, mildly displaced transverse intra-articular fracture at the base of the medial malleolus. Additional lucencies in the distal tibial metaphysis may reflect fracture or old pin tracks. There is 50% lateral subluxation of the tibiotalar articulation, slightly worsened from prior study. The talus and calcaneus are poorly visualized. Limited visualization of the subtalar, talonavicular, calcaneocuboid and tarsal articulations. There is persistent soft tissue swelling at the ankle. A number of metal skin cristian now project along the anteromedial aspect of the ankle. RAD/Ankle 2 Views IMPRESSION: X-ray examination of the ankle limited by the presence of a large metal external fixation device. Grossly, resection of the distal fibula as well as angulated, displaced fracture of the medial malleolus again noted. There is slight worsened lateral subluxation of the tibiotalar articulation. Electronically Signed: Parrish Morillo MD at 17:47 EST , Service support ,
--- NOTE | 2018-02-12 13:13 | RAD_ITS ---
STUDY: X-RAY - LEFT FOOT CLINICAL: Female, 57 years old. Pain, no known injury. TECHNIQUE: 3 view(s) of the foot. COMPARISON: 2 views of the left foot January 29, 2018 FINDINGS: Again seen is an external fixation device connected to the metal rods passing through the posterior calcaneus, anterior talus, and bases of one or more metatarsals. This significantly obscures detail. Limited visualization of the talus, calcaneus, and tarsal bones. Mostly normal visualized talonavicular, calcaneocuboid, tarsal and tarsometatarsal articulations. Subtalar articulations are not well seen Again seen is a moderately defined, rounded cortical defect in the medial proximal diaphysis of the first metatarsal. The 2-5 metatarsals are grossly unremarkable. Normal metatarsophalangeal joint of the great toe. Normal tibial and fibular sesamoid bones. Normal interphalangeal joint of the great toe. Deformity of the proximal to midportion of the fifth proximal phalanx may be an old healed fracture but otherwise, normal phalanges of the great toe. Normal second through fifth metatarsophalangeal joints. Normal interphalangeal joints and phalanges of the lesser toes. There is stable soft tissue swelling of the left foot. There is no demonstrated acute osseous abnormality from the prior study. RAD/Foot min 3 Views IMPRESSION: Stable, limited x-ray examination of the foot, as described above. Electronically Signed: Parrish Morillo MD at 17:51 EST , Service support ,
[2018-02-12 16:00] VITALS: BP 125/71; PULSE 75; RESP 20; TEMP 36.3; O2SAT 97
--- NOTE | 2018-02-12 16:43 | NURSING ---
Patient had positive blood return from PICC line after cathflo.
[2018-02-12] MEDS: Senna/Docusate Sodium 1 Tablet 2 TABLET PO (17:22)
[2018-02-12 18:57] LABS: Vancomycin, Trough Level 15.7 ug/mL (5.0-15.0)
--- NOTE | 2018-02-12 20:09 | PCM.RX.CS ---
Consult Pharmacy has been consulted to manage selected antiobiotic: Vancomycin Type of Consult: Follow-up Suspected Infection: Osteomyelitis Prior Doses of Antibiotics Received/Current Regimen: Medications Vancomycin HCl 750 mg/ Sodium (Chloride) 265 mls @ 250 mls/hr IV Q24H [facility] Stop: 03/12/18 23:59 Last Admin: 02/12/18 19:04 Dose: 250 mls/hr Labs: Sodium 137 mmol/L (136-145) 02/12/18 06:40 Potassium 4.3 mmol/L (3.5-5.1) 02/12/18 06:40 Chloride 105 mmol/L (98-107) 02/12/18 06:40 Carbon Dioxide 23.0 mmol/L (21.0-32.0) 02/12/18 06:40 Anion Gap 9 (5-15) 02/12/18 06:40 BUN 73 mg/dL (7-18) H 02/12/18 06:40 Creatinine 1.61 mg/dL (0.55-1.02) H 02/12/18 06:40 Est GFR (MDRD) Af Amer 42 mL/min (>60) L 02/12/18 06:40 Est GFR (MDRD) Non-Af 35 mL/min (>60) L 02/12/18 06:40 BUN/Creatinine Ratio 45.3 RATIO (10-20) H 02/12/18 06:40 Glucose 130 mg/dL (74-106) H 02/12/18 06:40 Vancomycin Trough 15.7 ug/mL (5.0-15.0) H 02/12/18 18:05 Random Vancomycin 13.7 ug/mL (0.0-15.0) 02/04/18 16:30 Microbiology: Microbiology 02/05/18 21:35 Urine Catheter - Gardner Urine Culture - Final Culture exhibits no growth. Weight used for dosin.8 kg Estimated Creatinine Clearance: 35.22 ml/m Goal Trough: 15-20 mcg/mL Pharmacy Plan for Drug Dosing: Vancomycin trough reported 02/12/18 1800 is 15.7 and within goal range. Current regimen will be continued. Pharmacy Service will continue to monitor and adjust dosing as required. Follow-Up Labs: Trough Vancomycin - 02/14/181729 Labs to be done on [date and time ordered]: 02/14/181729
[2018-02-12] MEDS: 0.9% NaCl IVPB Med Flush (250 mL) 15 ML IV (21:16)
[2018-02-12] MEDS: Amitriptyline 25 MG Tablet 75 MG PO (21:22)
[2018-02-12] MEDS: Atorvastatin Calcium 40 MG Tablet PO (21:26)
[2018-02-12] MEDS: Pramipexole Di-HCl 0.25 MG Tablet PO (21:27)
[2018-02-13] MEDS: oxyCODONE 5 MG Tablet PO (01:27)
[2018-02-13] MEDS: Senna/Docusate Sodium 1 Tablet 2 TABLET PO ×2 (06:26→17:29)
[2018-02-13] MEDS: Enoxaparin 30 MG/0.3 ML Syringe SC (06:27)
[2018-02-13] MEDS: dilTIAZem CD 180 MG Capsule PO (06:27)
[2018-02-13] MEDS: Pantoprazole Sodium 40 MG Tablet PO (06:27)
[2018-02-13] MEDS: Omega-3 Acid Ethyl Esters 1 GM Capsule PO (06:28)
[2018-02-13] MEDS: LINAGLIPTIN 5 MG TABLET PO (06:28)
[2018-02-13] MEDS: Atenolol 50 MG Tablet PO (06:28)
[2018-02-13] MEDS: Menthol/Lanolin/Calamine/Znox 113 GM Tube 1 APPLIC TOPICAL ×2 (06:30→21:16)
[2018-02-13] MEDS: Nystatin Powder 15gm Bottle 1 APPLIC TOPICAL ×2 (06:32→21:23)
[2018-02-13 06:56] LABS: Bedside Glucose 150 mg/dL (70-110)
--- NOTE | 2018-02-13 09:13 | RAD_ITS ---
STUDY: X-RAY CHEST REASON FOR EXAM: Female, 57 years old. Mental status change. TECHNIQUE: Single AP portable upright view of the chest. COMPARISON: PA and lateral chest x-ray January 16, 2018. FINDINGS: Right PICC line tip is at the confluence of the brachiocephalic and azygos veins to the superior vena cava. The lungs are clear, although not as fully expanded today. There is no demonstrated pleural abnormality. Normal size heart. Normal mediastinum and josie. Normal visualized pulmonary arteries. There is stable atherosclerotic calcification of the aortic arch. There are stable multilevel degenerative changes of the visualized thoracic spine. There is stable degenerative osteoarthritis of the bilateral shoulders. Stable tapered deformity of the distal right clavicle, which may represent postsurgical change. There is no demonstrated abnormality of the visualized soft tissue structures of the upper abdomen. RAD/Chest 1 View (Portable) IMPRESSION: No acute cardiopulmonary disease. Right PICC line tip is in the upper superior vena cava. Electronically Signed: Parrish Morillo MD at 11:01 EST , Service support ,
--- NOTE | 2018-02-13 09:13 | RAD_ITS ---
STUDY: X-RAY - ABDOMEN/PELVIS REASON FOR EXAM: Female, 57 years old. Mental status change. TECHNIQUE: AP supine view of the abdomen / pelvis on 5 films. COMPARISON: None. FINDINGS: Normal visualized lung bases. There is a nonspecific pattern of gas in nondistended segments of small bowel and colon. There is moderate fecal material in the colon.. There is no demonstrated free abdominal air. The visualized liver, spleen and kidneys are grossly normal in size and morphology. There is atherosclerotic calcific plaquing of the abdominal aorta and proximal femoral arteries. There are a few calcified phleboliths in the pelvis. There are diffuse degenerative changes of the visualized spine and degenerative arthrosis of right sacroiliac joint. RAD/Abdomen Single View (Portable) IMPRESSION: 1. Nonspecific bowel gas pattern. No free gas. 2. Atherosclerotic calcific plaquing of the abdominal aorta without overt aneurysm. However, this portends moderately significant risk for future cardiovascular event, Abdominal Aortic Calcific Deposits Are an Important Predictor of Vascular Morbidity and Mortality; José Miguel Mcmullen et al. Circulation, May 2000;[id number]. 3. 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 Electronically Signed: Parrish Morillo MD at 11:17 EST , Service support ,
[2018-02-13 10:02] LABS: Basophil# 0.04 X10^3/uL; Eosinophil# 0.07 X10^3/uL; Hematocrit 28.1 % (37-47); Hemoglobin 8.8 g/dl (12.0-15.0); Mean Corp Hgb Conc 31.3 g/gl (32-36); Mean Corpuscular Hgb 27.2 pg (27.0-32.0); Mean Corpuscular Volume 86.7 fL (81-99); Mean Platelet Vol. 9.3 fl (6.2-12.0); Monocyte# 1.47 X10^3/uL; Platelet Count 150 K/mm3 (150-450); RBC Distribution Width SD 53.9 fl (35.1-43.9); Red Blood Count 3.24 M/mm3 (4.2-5.4)
[2018-02-13 10:03] LABS: Differential Indicated SCAN CRITERIA MET; POSITIVE COUNT NO; POSITIVE DIFFERENTIAL YES; POSITIVE MORPHOLOGY YES
[2018-02-13 10:23] LABS: ALB/GLOB Ratio 0.4 RATIO (0.9-2.4); AST(SGOT) 10 U/L (15-37); Alanine Aminotransfer ALT/SGPT 15 U/L (13-56); Albumin, Serum 2.2 g/dL (3.2-5.0); Alkaline Phosphatase 100 U/L (45-117); Anion Gap 9 (5-15); BUN 71 mg/dL (7-18); BUN/Creat Ratio 44.1 RATIO (10-20); Calcium,Total 8.6 mg/dL (8.5-10.1); Chloride 104 mmol/L (98-107); Creatinine, Serum 1.61 mg/dL (0.55-1.02); EST Glomerular Filtration Rate 35 mL/min (>60); Est Glom Filt Rate - Afr Amer 42 mL/min (>60); Estimated Creatinine Clearance 35.22 ml/min; Globulin 5.3 g/dL (2.2-4.2); Glucose 212 mg/dL (74-106); Potassium 4.2 mmol/L (3.5-5.1); Protein, Total 7.5 g/dL (6.4-8.2); Sodium Level 136 mmol/L (136-145)
[2018-02-13 11:31] LABS: Color, Urine Yellow (Yellow); Glucose, Dipstick Normal (Normal); Ketone-Dipstick Negative (Negative); Leukocyte Esterase-Dipstick Negative /ul (Negative); Mucous, Urine 0 SEEN /hpf (<or=2+); Nitrite-Dipstick Negative (Negative); Occult Blood-Urine 50 /ul (Negative); Protein-Dipstick 500 mg/dl (Negative); Urine Bilirubin Dipstick Negative (Negative); Urine Clarity Sl. Cloudy (Clear); Urine Urobilinogen Normal (Normal); White Blood Cells 0 SEEN /hpf (0-5)
[2018-02-13 11:47] LABS: Red Blood Cells-Urine 0-5 SEEN /hpf (0-5); Squamous Epithelial Cells - UA 0-5 SEEN /hpf (5-10)
[2018-02-13 11:48] LABS: Bacteria 1+ /hpf (None Seen); Yeast-Urine 1+ /hpf (None Seen)
--- NOTE | 2018-02-13 11:59 | PN.ID_ITS ---
Patient Problems: Active and Suspected Problems (Last Reviewed 01/21/18 @ 12:13 by Arslan Robbins MD) Open left ankle fracture (Acute) Anemia (Acute) Subjective: No events overnight, no fever - Physical Exam General: Cooperative, No apparent distress Lungs: Clear to auscultation, Normal air movement Cardiovascular: Regular rate, Regular Rhythm Skin: Ulcer/ Wound - LLE with external hardware Vital Signs Temp Pulse Resp BP Pulse Ox 97.4 F L 75 20 H 125/71 H 97 02/12/18 16:00 02/12/18 16:00 02/12/18 16:00 02/12/18 16:00 02/12/18 16:00 Oxygen Delivery Method Room Air Weight: 104.326 kg Body Mass Index (BMI) 37.3 Intake and Output for Last 24 Hours 02/11/18 02/12/18 02/13/18 23:59 23:59 23:59 Intake Total 720 / 720 780 / 780 Output Total 3650 / 3650 4050 / 4050 1200 / 1200 Balance -2930 / -2930 -3270 / -3270 -1200 / -1200 Laboratory Tests Past 24 Hrs 02/12/18 02/13/18 02/13/18 18:05 09:45 09:45 WBC 3.0 L RBC 3.24 L Hgb 8.8 L Hct 28.1 L MCV 86.7 MCH 27.2 MCHC 31.3 L RDW 17.0 H RDW Differential 53.9 H Plt Count 150 MPV 9.3 Immature Gran % (Auto) 0.000 Neut % (Auto) 0.0 L Lymph % (Auto) 47.6 H [place] % (Auto) 48.8 H Eos % (Auto) 2.3 Baso % (Auto) 1.3 H Absolute Neuts (auto) 0.0 L Absolute Lymphs (auto) 1.43 Total Counted Pending Sodium 136 Potassium 4.2 Chloride 104 Carbon Dioxide 23.0 Anion Gap 9 BUN 71 H Creatinine 1.61 H Estim Creat Clear Calc 35.22 Est GFR (MDRD) Af Amer 42 L Est GFR (MDRD) Non-Af 35 L BUN/Creatinine Ratio 44.1 H Glucose 212 H Calcium 8.6 Total Bilirubin 0.30 AST 10 L ALT 15 Alkaline Phosphatase 100 Ammonia Total Protein 7.5 Albumin 2.2 L Globulin 5.3 H Albumin/Globulin Ratio 0.4 L Urine Color Urine Clarity Urine pH Ur Specific [place] Urine Protein Urine Glucose (UA) Urine Ketones Urine Occult Blood Urine Nitrite Urine Bilirubin Urine Urobilinogen Ur Leukocyte Esterase Urine RBC Urine WBC Ur Squamous Epith Cells Urine Bacteria Urine Mucus Urine Yeast Vancomycin Trough 15.7 H 02/13/18 02/13/18 09:45 11:16 WBC RBC Hgb Hct MCV MCH MCHC RDW RDW Differential Plt Count MPV Immature Gran % (Auto) Neut % (Auto) Lymph % (Auto) [place] % (Auto) Eos % (Auto) Baso % (Auto) Absolute Neuts (auto) Absolute Lymphs (auto) Total Counted Sodium Potassium Chloride Carbon Dioxide Anion Gap BUN Creatinine Estim Creat Clear Calc Est GFR (MDRD) Af Amer Est GFR (MDRD) Non-Af BUN/Creatinine Ratio Glucose Calcium Total Bilirubin AST ALT Alkaline Phosphatase Ammonia 12.0 Total Protein Albumin Globulin Albumin/Globulin Ratio Urine Color Yellow Urine Clarity Sl. Cloudy Urine pH 6.0 Ur Specific [place] 1.010 Urine Protein 500 H Urine Glucose (UA) Normal Urine Ketones Negative Urine Occult Blood 50 H Urine Nitrite Negative Urine Bilirubin Negative Urine Urobilinogen Normal Ur Leukocyte Esterase Negative Urine RBC 0-5 SEEN Urine WBC 0 SEEN Ur Squamous Epith Cells 0-5 SEEN Urine Bacteria 1+ Urine Mucus 0 SEEN Urine Yeast 1+ Vancomycin Trough POC Glucose 02/13/18 06:30 POC Glucose 150 H Medical Necessity - Tobacco Use Smoking Status: Former smoker Tobacco Use: Non-smoker Route of nutrition/ use of supplements: [] Nutritional Intake: [] IV Site: [] Gardner Catheter: [] - Assessment/Plan Antibiotics: [] Assessment/Plan: [] Active and Suspected Problems (Last Reviewed 01/21/18 @ 12:13 by Arslan Robbins MD) Open left ankle fracture (Acute) Anemia (Acute) 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 No sign of endocarditis on finger/toenails. No spine tenderness. Bcx from 01/16 is neg. TTE done, no need for YEIMY at this time. Taken to OR for debridement by Dr. Covington 01/20. BKA may be necessary. Continue vanc. Has nausea with PCN, tolerates cefazolin, amoxicillin with no issue. Narrowed meropenem to cefepime given past cx here and at [facility] with Pseudomonas spp. Cr at baseline. Plan on at least 6 week course of iv abx and then indefinite course with po given infected hardware. Stop date for vanc/cefepime planned for 03/03/18. Weekly bmp, cbc, esr, and vanc trough while on iv abx. After finishing iv abx, plan will be for indefinite course of po doxy 100mg bid. Wbc improved today. Taken to OR 01/29 for hardware removal and external fixator placement. Bone cx from that surgery (+) for MRSA. Repeat surgery again on 01/05, again (+) for MRSA. Stop date will be pushed back based on need for ongoing debridement and ongoing infection. Will follow.
[2018-02-13 13:31] LABS: Atypical Lymphocyte 1+ %; Lymphocyte 48 % (19-41); Metamyelocyte 2 % (0-1); Monocyte 24 % (0-10); Myelocyte 2 (0-0); Neutrophil-Band 16 % (0-5); Neutrophil-Segmented 8 % (47-70); Total Cells Counted 100 (MANUAL DIFF)
[2018-02-13 13:32] LABS: Anisocytosis 1+; Platelet Estimate ADEQUATE (ADEQ); Red Cell Morphology N CHROM NORMAL (NORM C&C)
[2018-02-13] MEDS: Acetaminophen 500 MG Tablet 1000 MG PO ×2 (13:56→21:21)
[2018-02-13] MEDS: Gabapentin 300 MG Capsule PO ×2 (14:37→21:24)
[2018-02-13 16:00] VITALS: BP 122/62; PULSE 69; RESP 18; TEMP 35.6; O2SAT 96
[2018-02-13] MEDS: Glucerna Shake 120 ML LIQUID PO (17:32)
[2018-02-13] MEDS: traMADol 50 MG Tablet PO ×2 (17:33→22:37)
[2018-02-13] MEDS: 0.9% Saline Lock 10 ML Syringe IV ×3 (17:37→21:17)
[2018-02-13] MEDS: Atorvastatin Calcium 40 MG Tablet PO (21:16)
[2018-02-13] MEDS: Amitriptyline 25 MG Tablet 75 MG PO (21:16)
[2018-02-14] MEDS: Pantoprazole Sodium 40 MG Tablet PO (05:07)
[2018-02-14] MEDS: LINAGLIPTIN 5 MG TABLET PO (05:07)
[2018-02-14] MEDS: Enoxaparin 30 MG/0.3 ML Syringe SC (05:07)
[2018-02-14] MEDS: Atenolol 50 MG Tablet PO (05:07)
[2018-02-14] MEDS: Senna/Docusate Sodium 1 Tablet 2 TABLET PO ×2 (05:07→16:14)
[2018-02-14] MEDS: dilTIAZem CD 180 MG Capsule PO (05:08)
[2018-02-14] MEDS: Polyethylene Glycol 3350 17 GM PACKET PO (05:08)
[2018-02-14] MEDS: Gabapentin 300 MG Capsule PO ×3 (05:08→21:16)
[2018-02-14] MEDS: Menthol/Lanolin/Calamine/Znox 113 GM Tube 1 APPLIC TOPICAL ×2 (05:08→21:18)
[2018-02-14] MEDS: Nystatin Powder 15gm Bottle 1 APPLIC TOPICAL ×2 (05:08→21:18)
[2018-02-14] MEDS: Omega-3 Acid Ethyl Esters 1 GM Capsule PO (05:10)
[2018-02-14 06:51] LABS: Bedside Glucose 135 mg/dL (70-110)
[2018-02-14] MEDS: Iron Polysaccharide Complex 150 MG CAPSULE PO (08:05)
[2018-02-14] MEDS: Multivitamins,Ther W-Minerals Tablet 1 TABLET PO (08:05)
[2018-02-14] MEDS: Hydroxychloroquine 200 MG Tablet PO (08:05)
[2018-02-14] MEDS: Allopurinol 300 MG Tablet PO (08:05)
[2018-02-14] MEDS: Glucerna Shake 120 ML LIQUID PO ×3 (08:07→16:14)
[2018-02-14] MEDS: 0.9% NaCl IVPB Med Flush (250 mL) 15 ML IV ×2 (10:21→21:22)
[2018-02-14] MEDS: 0.9% NaCl PICC Flush IV (10:22)
[2018-02-14] MEDS: oxyCODONE 5 MG Tablet PO (12:13)
[2018-02-14 15:24] VITALS: BP 137/72; PULSE 88; RESP 18; TEMP 37.4; O2SAT 96
[2018-02-14] MEDS: 0.9% Saline Lock 10 ML Syringe IV ×2 (17:57→21:09)
[2018-02-14 18:40] LABS: Vancomycin, Trough Level 17.9 ug/mL (5.0-15.0)
--- NOTE | 2018-02-14 18:48 | PCM.RX.CS ---
Consult Pharmacy has been consulted to manage selected antiobiotic: Vancomycin Type of Consult: Follow-up Suspected Infection: Osteomyelitis Prior Doses of Antibiotics Received/Current Regimen: VANCOMYCIN 750MG IV q24HR: 02/13 @1737, 02/14 @1757 Labs: Sodium 136 mmol/L (136-145) 02/13/18 09:45 Potassium 4.2 mmol/L (3.5-5.1) 02/13/18 09:45 Chloride 104 mmol/L (98-107) 02/13/18 09:45 Carbon Dioxide 23.0 mmol/L (21.0-32.0) 02/13/18 09:45 Anion Gap 9 (5-15) 02/13/18 09:45 BUN 71 mg/dL (7-18) H 02/13/18 09:45 Creatinine 1.61 mg/dL (0.55-1.02) H 02/13/18 09:45 Est GFR (MDRD) Af Amer 42 mL/min (>60) L 02/13/18 09:45 Est GFR (MDRD) Non-Af 35 mL/min (>60) L 02/13/18 09:45 BUN/Creatinine Ratio 44.1 RATIO (10-20) H 02/13/18 09:45 Glucose 212 mg/dL (74-106) H 02/13/18 09:45 Vancomycin Trough 17.9 ug/mL (5.0-15.0) H 02/14/18 17:24 Random Vancomycin 13.7 ug/mL (0.0-15.0) 02/04/18 16:30 Microbiology: Microbiology 02/05/18 21:35 Urine Catheter - Gardner Urine Culture - Final Culture exhibits no growth. Goal Trough: 15-20 mcg/mL Pharmacy Plan for Drug Dosing: Trough drawn which resulted in a value of 17.9 (~24hrs from last administered dose). This is within goal range, will recheck in 4 more days to evaluate dosing. PLAN/RECOMMENDATIONS 1. Continue vancomycin 750mg IV Q24hrs 2. Trough ordered 02/18/18 @1730 3. Pharmacy Service will continue to monitor and adjust dosing as required.
[2018-02-14] MEDS: traMADol 50 MG Tablet PO (19:44)
[2018-02-14] MEDS: Amitriptyline 25 MG Tablet 75 MG PO (21:16)
[2018-02-14] MEDS: Atorvastatin Calcium 40 MG Tablet PO (21:16)
[2018-02-14] MEDS: Acetaminophen 500 MG Tablet 1000 MG PO (21:18)
[2018-02-15] MEDS: oxyCODONE 5 MG Tablet PO ×2 (00:12→18:12)
[2018-02-15] MEDS: traMADol 50 MG Tablet PO ×2 (06:48→23:17)
[2018-02-15] MEDS: Atenolol 50 MG Tablet PO (06:48)
[2018-02-15] MEDS: Pantoprazole Sodium 40 MG Tablet PO (06:48)
[2018-02-15] MEDS: Enoxaparin 30 MG/0.3 ML Syringe SC (06:48)
[2018-02-15] MEDS: Acetaminophen 500 MG Tablet 1000 MG PO ×3 (06:48→23:17)
[2018-02-15] MEDS: LINAGLIPTIN 5 MG TABLET PO (06:49)
[2018-02-15] MEDS: Senna/Docusate Sodium 1 Tablet 2 TABLET PO ×2 (06:49→18:08)
[2018-02-15] MEDS: Omega-3 Acid Ethyl Esters 1 GM Capsule PO (06:49)
[2018-02-15] MEDS: dilTIAZem CD 180 MG Capsule PO (06:51)
[2018-02-15] MEDS: Gabapentin 300 MG Capsule PO ×3 (06:51→22:10)
[2018-02-15] MEDS: Menthol/Lanolin/Calamine/Znox 113 GM Tube 1 APPLIC TOPICAL ×2 (06:52→22:09)
[2018-02-15] MEDS: Nystatin Powder 15gm Bottle 1 APPLIC TOPICAL ×2 (06:53→22:10)
[2018-02-15 06:55] LABS: Bedside Glucose 153 mg/dL (70-110)
[2018-02-15 06:59] VITALS: O2SAT 99
--- NOTE | 2018-02-15 07:06 | NURSING ---
Gardner cath removed this AM per order. Pt tolerated well.
[2018-02-15] MEDS: Glucerna Shake 120 ML LIQUID PO ×3 (08:31→19:07)
[2018-02-15] MEDS: Iron Polysaccharide Complex 150 MG CAPSULE PO (08:33)
[2018-02-15] MEDS: Multivitamins,Ther W-Minerals Tablet 1 TABLET PO (08:33)
[2018-02-15] MEDS: Allopurinol 300 MG Tablet PO (08:33)
[2018-02-15] MEDS: Hydroxychloroquine 200 MG Tablet PO (08:33)
[2018-02-15] MEDS: 0.9% Saline Lock 10 ML Syringe IV (09:46)
--- NOTE | 2018-02-15 15:24 | NURSING ---
Temp 99.7 c/o chills tylenol given, pt continues to void on BSC without difficulty
[2018-02-15 16:00] VITALS: BP 146/110; PULSE 79; RESP 18; TEMP 37.6; O2SAT 95
[2018-02-15] MEDS: Amitriptyline 25 MG Tablet 75 MG PO (22:09)
[2018-02-15] MEDS: Atorvastatin Calcium 40 MG Tablet PO (22:09)
[2018-02-15 23:22] VITALS: TEMP 38.1
--- NOTE | 2018-02-15 23:23 | NURSING ---
Addendum entered by Hue Mortensen 02/16/18 01:22: Temp rechecked orally 98.8. Original Note: Pt complaint of feeling cold with very vague symptoms. Temp 100.6 orally. Tylenol provided.
--- NOTE | 2018-02-16 00:07 | NURSING ---
PICC line dressing changed d/t peeling off around edges. Line observed at 1cm before dressing was removed. Dressing removed and PICC line migrated outward to 2cm immediately. Skin tear occurred proximal to site while removing dressing. Site observed to be red, edematous and slightly peeling from insertion site. Small amount of purulent drainage noted at insertion site and on PICC line. Site and line was cleansed with chloraprep, new stat lock applied with Tegaderm with CHG applied. Sterile technique maintained throughout dressing change. PICC line to be noted at 2cm after dressing was secured. PICC cap changed. Line flushed without difficulty and with positive blood return. Pt denied discomfort to site. Will continue to monitor. Will report at shift change and will update Dr. Elizondo.
[2018-02-16] MEDS: oxyCODONE 5 MG Tablet PO (01:20)
[2018-02-16 01:30] VITALS: TEMP 37.1
[2018-02-16] MEDS: Senna/Docusate Sodium 1 Tablet 2 TABLET PO ×2 (05:30→17:45)
[2018-02-16] MEDS: dilTIAZem CD 180 MG Capsule PO (05:30)
[2018-02-16] MEDS: Atenolol 50 MG Tablet PO (05:30)
[2018-02-16] MEDS: LINAGLIPTIN 5 MG TABLET PO (05:30)
[2018-02-16] MEDS: Omega-3 Acid Ethyl Esters 1 GM Capsule PO (05:30)
[2018-02-16] MEDS: Pantoprazole Sodium 40 MG Tablet PO (05:30)
[2018-02-16] MEDS: Gabapentin 300 MG Capsule PO ×3 (05:30→21:04)
[2018-02-16] MEDS: Enoxaparin 30 MG/0.3 ML Syringe SC (05:31)
[2018-02-16] MEDS: Nystatin Powder 15gm Bottle 1 APPLIC TOPICAL ×2 (05:31→21:14)
[2018-02-16] MEDS: Menthol/Lanolin/Calamine/Znox 113 GM Tube 1 APPLIC TOPICAL ×2 (05:36→21:10)
[2018-02-16] MEDS: traMADol 50 MG Tablet PO (05:40)
[2018-02-16] MEDS: Acetaminophen 500 MG Tablet 1000 MG PO ×2 (05:44→18:08)
[2018-02-16 06:46] LABS: Bedside Glucose 126 mg/dL (70-110)
[2018-02-16] MEDS: Glucerna Shake 120 ML LIQUID PO ×3 (08:15→17:45)
[2018-02-16] MEDS: Multivitamins,Ther W-Minerals Tablet 1 TABLET PO (08:16)
[2018-02-16] MEDS: Allopurinol 300 MG Tablet PO (08:16)
[2018-02-16] MEDS: Iron Polysaccharide Complex 150 MG CAPSULE PO (08:16)
[2018-02-16] MEDS: Hydroxychloroquine 200 MG Tablet PO (08:16)
[2018-02-16] MEDS: 0.9% NaCl PICC Flush IV (09:52)
--- NOTE | 2018-02-16 10:58 | NURSING ---
New order to change PICC line d/t redness and drainage, microwave engineer notified at this time.
--- NOTE | 2018-02-16 11:47 | NURSING ---
Dr. Bejarano updated on redness, drainage at PICC line site. NO for PICC blood culture and peripheral blood culture, culture of PICC catheter tip and MRSA culture of drainage from PICC line insertion site. Okay to insert peripheral line for 48 hours and then reinsert new PICC line.
[2018-02-16 12:56] LABS: Pathologist Review Reviewed
[2018-02-16 13:20] LABS: Scan Smear per Review Criteria MANUAL DIFF
[2018-02-16 13:23] LABS: Neutrophil # 0.72 X10^3/uL (2.7-7.7)
[2018-02-16 13:24] LABS: Absolute Lymphocyte Count 1.44 X10^3/ul (0.83-4.51); Absolute Neutrophil Count 0.7 X10^3/uL (2.0-7.7); Lymphocyte # 1.44 X10^3/ul (4.0)
--- NOTE | 2018-02-16 14:03 | PCM.PN.ID ---
Patient Problems: Active and Suspected Problems (Last Reviewed 01/21/18 @ 12:13 by Arslan Robbins MD) Open left ankle fracture (Acute) Anemia (Acute) Subjective: Some fever and chills last night. Picc site with some redness, nursing reports some drainage. Foot feels ok. - Physical Exam General: Alert, Cooperative, No apparent distress Lungs: Clear to auscultation, Normal air movement Cardiovascular: Regular rate, Regular Rhythm Abdomen: Soft, Non Tender, Non-Distended Skin: Ulcer/ Wound - foot wrapped, Rash Present - small redness at RUE picc site Vital Signs Temp Pulse Resp BP Pulse Ox 98.8 F 79 18 146/110 H 95 02/16/18 01:30 02/15/18 16:00 02/15/18 16:00 02/15/18 16:00 02/15/18 16:00 Oxygen Delivery Method Room Air Weight: 104.326 kg Body Mass Index (BMI) 37.3 Intake and Output for Last 24 Hours 02/14/18 02/15/18 02/16/18 23:59 23:59 23:59 Intake Total 840 / 840 1040 / 1040 780 / 780 Output Total 2250 / 2250 250 / 250 Balance -1410 / -1410 790 / 790 780 / 780 Laboratory Tests Past 24 Hrs 02/13/18 09:45 Immature Gran % (Auto) [employer]ER Neut % (Auto) [employer]ER Lymph % (Auto) [employer]ER [place] % (Auto) [employer]ARY [employer]YER Eos % (Auto) [employer]YER Baso % (Auto) [employer]ER Absolute Neuts (auto) 0.7 L Absolute Lymphs (auto) 1.44 Diff Path Review Reviewed POC Glucose 02/16/18 06:34 POC Glucose 126 H Medical Necessity - Tobacco Use Smoking Status: Former smoker Tobacco Use: Non-smoker Route of nutrition/ use of supplements: [] Nutritional Intake: [] IV Site: [] Gardner Catheter: [] - Assessment/Plan Antibiotics: [] Assessment/Plan: [] Active and Suspected Problems (Last Reviewed 01/21/18 @ 12:13 by Arslan Robbins MD) Open left ankle fracture (Acute) Anemia (Acute) 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 No sign of endocarditis on finger/toenails. No spine tenderness. Bcx from 01/16 is neg. TTE done, no need for YEIMY at this time. Taken to OR for debridement by Dr. Covington 01/20. BKA may be necessary. Continue vanc. Has nausea with PCN, tolerates cefazolin, amoxicillin with no issue. Narrowed meropenem to cefepime given past cx here and at [place] with Pseudomonas spp. Cr at baseline. Plan on at least 6 week course of iv abx and then indefinite course with po given infected hardware. Stop date for vanc/cefepime planned for 03/03/18. Weekly bmp, cbc, esr, and vanc trough while on iv abx. After finishing iv abx, plan will be for indefinite course of po doxy 100mg bid. Wbc improved today. Taken to OR 01/29 for hardware removal and external fixator placement. Bone cx from that surgery (+) for MRSA. Repeat surgery again on 01/05, again (+) for MRSA. Stop date will be pushed back based on need for ongoing debridement and ongoing infection. Chills with picc redness - send bcx of picc and periphery. Cx drainage and do mRSA pcr. Pull picc and send tip for cx. Will follow.
--- NOTE | 2018-02-16 14:18 | NURSING ---
PICC line d/c'd per order. Patient tolerated well. Instructed to stay in bed for 30 minutes. Pressure dressing applied. Will continue to monitor.
[2018-02-16 15:34] VITALS: BP 178/87; PULSE 94; RESP 20; TEMP 36.4; O2SAT 97
[2018-02-16 16:45] LABS: M R Staph aureus DNA By PCR Negative (Negative); Probe Check PASS; Specimen Processing Control PASS; Staph aureus DNA By PCR NEGATIVE (Negative)
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
--- NOTE | 2018-02-16 18:25 | NURSING ---
Patient having jerking like movements, restlessness and running temp of 101.3. Dr. Elizondo notified. Given PRN tylenol. Will continue to monitor.
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
--- NOTE | 2018-02-16 18:56 | NURSING ---
NO to consult Dr. Covington to discuss options for left leg, patient agreeable to having LBKA if necessary.
[2018-02-16 20:00] VITALS: TEMP 38.1
[2018-02-16 21:00] VITALS: TEMP 37.3
[2018-02-16] MEDS: Amitriptyline 25 MG Tablet 75 MG PO (21:04)
[2018-02-16] MEDS: Atorvastatin Calcium 40 MG Tablet PO (21:04)
[2018-02-17 05:35] VITALS: BP 140/76; PULSE 96; TEMP 37.5; O2SAT 95
[2018-02-17] MEDS: Acetaminophen 500 MG Tablet 1000 MG PO (05:39)
[2018-02-17] MEDS: Nystatin Powder 15gm Bottle 1 APPLIC TOPICAL ×2 (05:39→21:38)
[2018-02-17] MEDS: Gabapentin 300 MG Capsule PO ×2 (05:40→21:38)
[2018-02-17] MEDS: dilTIAZem CD 180 MG Capsule PO (05:40)
[2018-02-17] MEDS: LINAGLIPTIN 5 MG TABLET PO (05:40)
[2018-02-17] MEDS: Polyethylene Glycol 3350 17 GM PACKET PO (05:40)
[2018-02-17] MEDS: Pantoprazole Sodium 40 MG Tablet PO (05:41)
[2018-02-17] MEDS: Senna/Docusate Sodium 1 Tablet 2 TABLET PO (05:41)
[2018-02-17] MEDS: Omega-3 Acid Ethyl Esters 1 GM Capsule PO (05:42)
[2018-02-17] MEDS: Enoxaparin 30 MG/0.3 ML Syringe SC (05:42)
[2018-02-17] MEDS: Atenolol 50 MG Tablet PO (05:42)
[2018-02-17] MEDS: Menthol/Lanolin/Calamine/Znox 113 GM Tube 1 APPLIC TOPICAL ×2 (05:44→21:36)
[2018-02-17 06:45] LABS: Bedside Glucose 142 mg/dL (70-110)
[2018-02-17 07:53] VITALS: TEMP 37.1
[2018-02-17] MEDS: Glucerna Shake 120 ML LIQUID PO ×2 (07:56→11:59)
[2018-02-17] MEDS: Iron Polysaccharide Complex 150 MG CAPSULE PO (07:57)
[2018-02-17] MEDS: Multivitamins,Ther W-Minerals Tablet 1 TABLET PO (07:57)
[2018-02-17] MEDS: Hydroxychloroquine 200 MG Tablet PO (07:57)
[2018-02-17] MEDS: Allopurinol 300 MG Tablet PO (07:57)
[2018-02-17] MEDS: traMADol 50 MG Tablet PO (08:04)
[2018-02-17] MEDS: 0.9% Saline Lock 10 ML Syringe IV (10:26)
[2018-02-17] MEDS: 0.9% NaCl IVPB Med Flush (250 mL) 15 ML IV (10:30)
--- NOTE | 2018-02-17 10:33 | NURSING ---
Dr Bejarano here, this comic book writer asked pt about possible Urinary infection. pt did c/o difficulty voiding and some burning with urination. new order to check UA.
--- NOTE | 2018-02-17 10:41 | PN.ID_ITS ---
Patient Problems: Active and Suspected Problems (Last Reviewed 01/21/18 @ 12:13 by Arslan Robbins MD) Open left ankle fracture (Acute) Anemia (Acute) Subjective: Picc out, feeling sleepy, still some low grade temps. Gardner out since 02/15, having some trouble urinating, mild dysuria. - Physical Exam General: Alert, Cooperative, No apparent distress Lungs: Clear to auscultation, Normal air movement Cardiovascular: Regular rate, Regular Rhythm Abdomen: Soft, Non Tender, Non-Distended Skin: Incision - leg wrapped Vital Signs Temp Pulse Resp BP Pulse Ox 98.8 F 96 20 H 140/76 H 95 02/17/18 07:53 02/17/18 05:35 02/16/18 15:34 02/17/18 05:35 02/17/18 05:35 Oxygen Delivery Method Room Air Weight: 104.326 kg Body Mass Index (BMI) 37.3 Intake and Output for Last 24 Hours 02/15/18 02/16/18 02/17/18 23:59 23:59 23:59 Intake Total 1040 / 1040 1100 / 1100 120 / 120 Output Total 250 / 250 Balance 790 / 790 1100 / 1100 120 / 120 Microbiology Past 72 Hours 02/16/18 14:00 Body Fluid Culture - Preliminary Fluid - Other No growth-Final to follow Laboratory Tests Past 24 Hrs 02/13/18 02/16/18 09:45 14:00 Immature Gran % (Auto) FLASK CLEANER Neut % (Auto) FLASK CLEANER Lymph % (Auto) FLASK CLEANER [place] % (Auto) FLASK CLEANER Eos % (Auto) FLASK CLEANER Baso % (Auto) FLASK CLEANER Absolute Neuts (auto) 0.7 L Absolute Lymphs (auto) 1.44 Diff Path Review Reviewed S.aureus Protein A PCR NEGATIVE MRSA (PCR) Negative POC Glucose 02/17/18 06:28 POC Glucose 142 H Medical Necessity - Tobacco Use Smoking Status: Former smoker Tobacco Use: Non-smoker Route of nutrition/ use of supplements: [] Nutritional Intake: [] IV Site: [] Gardner Catheter: [] - Assessment/Plan Antibiotics: [] Assessment/Plan: [] Active and Suspected Problems (Last Reviewed 01/21/18 @ 12:13 by Arslan Robbins MD) Open left ankle fracture (Acute) Anemia (Acute) 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 No sign of endocarditis on finger/toenails. No spine tenderness. Bcx from 01/16 is neg. TTE done, no need for YEIMY at this time. Taken to OR for debridement by Dr. Covington 01/20. BKA may be necessary. Continue vanc. Has nausea with PCN, tolerates cefazolin, amoxicillin with no issue. Narrowed meropenem to cefepime given past cx here and at [place] with Pseudomonas spp. Cr at baseline. Plan on at least 6 week course of iv abx and then indefinite course with po given infected hardware. Stop date for vanc/cefepime planned for 03/03/18. Weekly bmp, cbc, esr, and vanc trough while on iv abx. After finishing iv abx, plan will be for indefinite course of po doxy 100mg bid. Taken to OR 01/29 for hardware removal and external fixator placement. Bone cx from that surgery (+) for MRSA. Repeat surgery again on 01/05, again (+) for MRSA. Stop date will be pushed back based on need for ongoing debridement and ongoing infection. Chills with picc redness - sent bcx of picc and periphery. Cx drainage and do mRSA pcr. Pulled picc 02/16 and pending tip for cx. Will also order UA/Ucx. Will follow.
--- NOTE | 2018-02-17 11:08 | NURSING ---
Jerky and sleeping. Awakens briefly to talk with this nurse and when care is provided. Urine specimen collected at this time per straight catheter specimen.
[2018-02-17 11:10] LABS: Mucous, Urine 0 SEEN /hpf (<or=2+); White Blood Cells 0 SEEN /hpf (0-5)
[2018-02-17 11:12] LABS: Color, Urine Yellow (Yellow); Glucose, Dipstick Normal (Normal); Ketone-Dipstick Negative (Negative); Leukocyte Esterase-Dipstick Negative /ul (Negative); Nitrite-Dipstick Negative (Negative); Occult Blood-Urine 10 /ul (Negative); Protein-Dipstick 100 mg/dl (Negative); Urine Bilirubin Dipstick Negative (Negative); Urine Clarity Sl. Cloudy (Clear); Urine Urobilinogen Normal (Normal)
[2018-02-17 11:21] LABS: Bacteria 1+ /hpf (None Seen); Red Blood Cells-Urine 0-5 SEEN /hpf (0-5); Squamous Epithelial Cells - UA 0-5 SEEN /hpf (5-10)
--- NOTE | 2018-02-17 12:36 | NURSING ---
Addendum entered by Katina Whyte 02/17/18 16:49: PT SENT TO SURGERY @ 1615 VIA BED. Original Note: Dr Houston calls in and orders received to this RN. Dr Houston states she will be in to see resident after her surgery is complete.
--- NOTE | 2018-02-17 12:38 | RAD_ITS ---
STUDY: X-RAY CHEST REASON FOR EXAM: Female, 58 years old. Fever. TECHNIQUE: AP and lateral views of the chest. COMPARISON: Comparison is made with prior examination dated February 13, 2018. FINDINGS: The PICC line catheter is not seen at this time. Mild degree of vascular congestion. There is no demonstrated pleural abnormality. There is mild cardiac enlargement. Normal mediastinum and josie. Normal visualized pulmonary arteries. There is atherosclerotic calcification of the aortic arch with tortuosity. There are diffuse degenerative changes of the visualized thoracic spine. There is degenerative osteoarthritis of the bilateral shoulders. There is no demonstrated abnormality of the visualized soft tissue structures of the upper abdomen. RAD/Chest PA and Lateral IMPRESSION: Mild cardiomegaly. Mild degree of vascular congestion. Electronically Signed: Mahesh Olivia MD at 13:36 EST Tel [phone], Service support ,
--- NOTE | 2018-02-17 12:39 | RAD_ITS ---
STUDY: X-RAY - LEFT TIBIA AND FIBULA REASON FOR EXAM: Female, 58 years old. Pain. External fixation device. TECHNIQUE: AP and lateral view(s) of the tibia and fibula were obtained. COMPARISON: Comparison is made with prior study February 12, 2018. FINDINGS: An external fixation device is seen. There is been essentially no change since prior study. RAD/Tibia & Fibula 2 Views IMPRESSION: Stable examination. Electronically Signed: Mahesh Olivia MD at 14:05 EST Tel [phone], Service support ,
--- NOTE | 2018-02-17 12:40 | RAD_ITS ---
STUDY: X-RAY - LEFT FOOT CLINICAL: Female, 58 years old. External fixation device. TECHNIQUE: 3 view(s) of the foot. COMPARISON: Comparison is made with prior study dated February 12, 2018. FINDINGS: An external fixation device is seen. Multiple metal rods and screws are seen. A new fixation device is seen at the base of the metatarsals. RAD/Foot min 3 Views IMPRESSION: External fixation device. Electronically Signed: Mahesh Olivia MD at 14:03 EST Tel [phone], Service support ,
--- NOTE | 2018-02-17 13:00 | RAD_ITS ---
STUDY: X-RAY - LEFT ANKLE REASON FOR EXAM: Female, 58 years old. An external fixation device. TECHNIQUE: 3 view(s) of the ankle. COMPARISON: Comparison is made with prior examination dated February 12, 2018. FINDINGS: Stable appearance of the external fixation device. There is evidence of resection of the distal fibula. There appears to be erosive changes of the dome of the talus. Stable avulsion fracture of the medial malleolus. Stable lateral subluxation of the tibial talar articulation. RAD/Ankle min 3 Views IMPRESSION: Stable examination. Electronically Signed: Mahesh Olivia MD at 14:04 EST Tel [phone], Service support ,
[2018-02-17 14:18] LABS: Absolute Lymphocyte Count 1.44 X10^3/ul (0.83-4.51); Absolute Neutrophil Count 0.9 X10^3/uL (2.0-7.7); Basophil# 0.05 X10^3/uL; Basophil% 1.1 % (0-1); Differential Indicated SCAN CRITERIA MET; Eosinophil# 0.15 X10^3/uL; Eosinophils% 3.3 % (0-5); Hematocrit 26.8 % (37-47); Hemoglobin 8.4 g/dl (12.0-15.0); Lymphocyte # 1.44 X10^3/ul (4.0); Lymphocyte % 32.1 % (19-41); Mean Corp Hgb Conc 31.3 g/gl (32-36); Mean Corpuscular Hgb 26.9 pg (27.0-32.0); Mean Corpuscular Volume 85.9 fL (81-99); Mean Platelet Vol. 9.4 fl (6.2-12.0); Monocyte# 1.92 X10^3/uL; Monocyte% 42.9 % (0-10); Neutrophil # 0.88 X10^3/uL (2.7-7.7); Neutrophil % 19.7 % (47-70); POSITIVE COUNT NO; POSITIVE DIFFERENTIAL YES; POSITIVE MORPHOLOGY NO; Platelet Count 233 K/mm3 (150-450); RBC Distribution Width CV 16.9 % (11.6-14.6); RBC Distribution Width SD 53.6 fl (35.1-43.9); Red Blood Count 3.12 M/mm3 (4.2-5.4); White Blood Count 4.5 K/mm3 (4.4-11.0)
--- NOTE | 2018-02-17 14:31 | MDS.RN ---
Information for the mds was obtained from review of the clinical record, interview of resident, staff, and direct observation of resident's care.
--- NOTE | 2018-02-17 15:41 | VDLE_ITS ---
Reason For Study: LEG SWELLING RIGHT LEFT CFV is compressible, spontaneous, phasic, GSV is normal. competent and demonstrates normal CFV is compressible, spontaneous, phasic, augmentation. competent, and demonstrates normal Procedure augmentation. Exam performed portable in patient room. FV is compressible, spontaneous, phasic, A preliminary report was called and/or faxed competent and demonstrates normal to Dr. Covington. augmentation. POP V is compressible, spontaneous, phasic, competent and demonstrates normal augmentation. T/P Trunk is compressible. PTV is compressible. LT PerV is compressible. <> Interpretation Summary Deep veins of the left lower extremity are patent and compressible segmentally. There is no evidence of left lower extremity deep vein thrombosis. Valvular competence appears intact within the proximal deep venous system on the left . The left greater saphenous vein appears patent and compressible segmentally. Ordering Physician: Candi Covington Referring Physician: Gerson Elizondo Chi Performed By: Fariha Akbar RVT
--- NOTE | 2018-02-17 17:10 | NURSING ---
off unit at this time in OR.
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
--- NOTE | 2018-02-17 18:14 | NURSING ---
dr moe notified of UA results, no new orders.
--- NOTE | 2018-02-17 21:00 | NURSING ---
Patient back on the unit at this time from OR. Per report from OR Dr. Covington pleased with how leg looks. Dr. Covington to take patient into surgery again in 1- 2 weeks. Dressing is to remain intact per Dr. Covington. Left lower extremity is supposed to be elevated at all times.
[2018-02-17] MEDS: Amitriptyline 25 MG Tablet 75 MG PO (21:38)
[2018-02-17] MEDS: Atorvastatin Calcium 40 MG Tablet PO (21:38)
[2018-02-17 21:41] VITALS: BP 99/53; PULSE 74; RESP 20; TEMP 36.4; O2SAT 98
[2018-02-17] MEDS: 0.9% NaCl PICC Flush IV (21:43)
[2018-02-17 23:30] VITALS: BP 136/62; PULSE 88; RESP 19; TEMP 37.5; O2SAT 95
[2018-02-18] MEDS: Acetaminophen 500 MG Tablet 1000 MG PO (00:35)
--- NOTE | 2018-02-18 01:38 | NURSING ---
Pt bladder scanned for 860cc. Dr Elizondo notified. N.O. for Flomax 0.4mg and reinsert Gardner catheter.
--- NOTE | 2018-02-18 01:50 | NURSING ---
Gardner catheter 18FR inserted at this time. 1000cc of clear, yellow urine flowed into Gardner catheter bag. Pt tolerated procedure well. Will continue to monitor.
[2018-02-18 05:10] LABS: Bedside Glucose 156 mg/dL (70-110)
[2018-02-18] MEDS: Menthol/Lanolin/Calamine/Znox 113 GM Tube 1 APPLIC TOPICAL ×2 (05:20→20:50)
[2018-02-18] MEDS: dilTIAZem CD 180 MG Capsule PO (05:24)
[2018-02-18] MEDS: Gabapentin 300 MG Capsule PO ×3 (05:25→20:47)
[2018-02-18] MEDS: Omega-3 Acid Ethyl Esters 1 GM Capsule PO (05:25)
[2018-02-18] MEDS: Senna/Docusate Sodium 1 Tablet 2 TABLET PO ×2 (05:25→17:38)
[2018-02-18] MEDS: Enoxaparin 30 MG/0.3 ML Syringe SC (05:25)
[2018-02-18] MEDS: Pantoprazole Sodium 40 MG Tablet PO (05:25)
[2018-02-18] MEDS: Atenolol 50 MG Tablet PO (05:25)
[2018-02-18] MEDS: Nystatin Powder 15gm Bottle 1 APPLIC TOPICAL ×2 (05:25→20:53)
[2018-02-18] MEDS: LINAGLIPTIN 5 MG TABLET PO (05:26)
[2018-02-18 06:50] LABS: Bedside Glucose 123 mg/dL (70-110)
[2018-02-18] MEDS: Allopurinol 300 MG Tablet PO (07:37)
[2018-02-18] MEDS: Glucerna Shake 120 ML LIQUID PO ×3 (07:37→17:37)
[2018-02-18] MEDS: Iron Polysaccharide Complex 150 MG CAPSULE PO (07:37)
[2018-02-18] MEDS: Multivitamins,Ther W-Minerals Tablet 1 TABLET PO (07:37)
[2018-02-18] MEDS: Hydroxychloroquine 200 MG Tablet PO (07:37)
[2018-02-18] MEDS: 0.9% Saline Lock 10 ML Syringe IV ×2 (11:00→21:33)
[2018-02-18] MEDS: 0.9% NaCl IVPB Med Flush (250 mL) 15 ML IV (11:01)
[2018-02-18 11:13] VITALS: PULSE 81; RESP 18; O2SAT 93
[2018-02-18] MEDS: traMADol 50 MG Tablet PO (13:06)
--- NOTE | 2018-02-18 13:39 | CASEMGMT ---
Addendum entered by Diana Cantu 02/18/18 13:39: Correction: PHQ-9 score is 09/24 Original Note: Brief interview for mental status (BIMS) and resident mood interview (PHQ-9) completed on this day. BIMS score . PHQ-9 score 06/24
--- NOTE | 2018-02-18 13:41 | PCM.PN.ID ---
Patient Problems: Active and Suspected Problems (Last Reviewed 01/21/18 @ 12:13 by Arslan Robbins MD) Open left ankle fracture (Acute) Anemia (Acute) Subjective: Not feeling well s/p OR last night. No fever. - Physical Exam General: Cooperative, No apparent distress Lungs: Clear to auscultation, Normal air movement Cardiovascular: Regular rate, Regular Rhythm Abdomen: Soft, Non Tender, Non-Distended Skin: Ulcer/ Wound - LLE external hardware Vital Signs Temp Pulse Resp BP Pulse Ox 99.5 F H 81 18 136/62 H 93 02/17/18 23:30 02/18/18 11:13 02/18/18 11:13 02/17/18 23:30 02/18/18 11:13 Oxygen Delivery Method Room Air Weight: 110.28 kg Body Mass Index (BMI) 37.3 Intake and Output for Last 24 Hours 02/16/18 02/17/18 02/18/18 23:59 23:59 23:59 Intake Total 1100 / 1100 360 / 360 360 / 360 Output Total 1700 / 1700 Balance 1100 / 1100 360 / 360 -1340 / -1340 Microbiology Past 72 Hours 02/17/18 11:00 Urine Culture - Preliminary Urine, Catheterized Culture exhibits no growth. 02/16/18 14:00 Gram Stain - Final Fluid - Other Body Fluid Culture - Preliminary No growth-Final to follow Anaerobic Culture - Preliminary No growth in 48 hours. 02/16/18 14:00 Gram Stain - Final Catheter tip - Iv Cath Tip Laboratory Tests Past 24 Hrs 02/17/18 13:45 WBC 4.5 RBC 3.12 L Hgb 8.4 L Hct 26.8 L MCV 85.9 MCH 26.9 L MCHC 31.3 L RDW 16.9 H RDW Differential 53.6 H Plt Count 233 MPV 9.4 Immature Gran % (Auto) 0.900 Neut % (Auto) 19.7 L Lymph % (Auto) 32.1 [place] % (Auto) 42.9 H Eos % (Auto) 3.3 Baso % (Auto) 1.1 H Absolute Neuts (auto) 0.9 L Absolute Lymphs (auto) 1.44 Total Counted Not Reportable Differential Comment COMMENT POC Glucose 02/18/18 02/17/18 06:27 16:56 POC Glucose 123 H 156 H Medical Necessity - Tobacco Use Smoking Status: Former smoker Tobacco Use: Non-smoker Route of nutrition/ use of supplements: [] Nutritional Intake: [] IV Site: [] Gardner Catheter: [] - Assessment/Plan Antibiotics: [] Assessment/Plan: [] Active and Suspected Problems (Last Reviewed 01/21/18 @ 12:13 by Arslan Robbins MD) Open left ankle fracture (Acute) Anemia (Acute) 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 No sign of endocarditis on finger/toenails. No spine tenderness. Bcx from 01/16 is neg. TTE done, no need for YEIMY at this time. Taken to OR for debridement by Dr. Covington 01/20. BKA may be necessary. Continue vanc. Has nausea with PCN, tolerates cefazolin, amoxicillin with no issue. Narrowed meropenem to cefepime given past cx here and at [place] with Pseudomonas spp. Cr at baseline. Plan on at least 6 week course of iv abx and then indefinite course with po given infected hardware. Stop date for vanc/cefepime planned for 03/03/18. Weekly bmp, cbc, esr, and vanc trough while on iv abx. After finishing iv abx, plan will be for indefinite course of po doxy 100mg bid. Taken to OR 01/29 for hardware removal and external fixator placement. Bone cx from that surgery (+) for MRSA. Repeat surgery again on 01/05, again (+) for MRSA. Stop date will be pushed back based on need for ongoing debridement and ongoing infection. Chills with picc redness - sent bcx of picc and periphery. Cx drainage and do mRSA pcr. Pulled picc 02/16 and tip for cx. UA and Ucx neg so far. Bcx, tip cx, and drainage cx also neg. Taken back to OR as foot is the other likely nidus of infection. Will follow.
[2018-02-18] MEDS: NYSTATIN 500,000 UNIT/5 ML UDC 500000 UNIT PO ×3 (14:44→20:47)
[2018-02-18] MEDS: oxyCODONE 5 MG Tablet PO ×2 (15:28→20:50)
[2018-02-18 16:00] VITALS: BP 147/79; PULSE 78; RESP 20; TEMP 36.9; O2SAT 98
--- NOTE | 2018-02-18 17:23 | NURSING ---
dr guillen here to see pt, no removal of rt side scalp cyst until 3 months after DC from TCU
--- NOTE | 2018-02-18 17:26 | NURSING ---
pt LT LE has been elevated most of day while resting in bed. tolerating pretty well.
[2018-02-18] MEDS: Tamsulosin HCl 0.4 MG Capsule PO (17:38)
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
[2018-02-18] MEDS: Atorvastatin Calcium 40 MG Tablet PO (20:47)
[2018-02-18] MEDS: Amitriptyline 25 MG Tablet 75 MG PO (20:47)
[2018-02-18 21:48] LABS: Vancomycin, Trough Level 21.6 ug/mL (5.0-15.0)
[2018-02-19] MEDS: traMADol 50 MG Tablet PO (02:02)
[2018-02-19] MEDS: Acetaminophen 500 MG Tablet 1000 MG PO (02:02)
[2018-02-19] MEDS: NYSTATIN 500,000 UNIT/5 ML UDC 500000 UNIT PO ×2 (05:05→11:53)
[2018-02-19] MEDS: dilTIAZem CD 180 MG Capsule PO (05:06)
[2018-02-19] MEDS: Pantoprazole Sodium 40 MG Tablet PO (05:06)
[2018-02-19] MEDS: Omega-3 Acid Ethyl Esters 1 GM Capsule PO (05:06)
[2018-02-19] MEDS: Atenolol 50 MG Tablet PO (05:06)
[2018-02-19] MEDS: LINAGLIPTIN 5 MG TABLET PO (05:06)
[2018-02-19] MEDS: Gabapentin 300 MG Capsule PO (05:06)
[2018-02-19] MEDS: Senna/Docusate Sodium 1 Tablet 2 TABLET PO (05:06)
[2018-02-19] MEDS: Nystatin Powder 15gm Bottle 1 APPLIC TOPICAL (05:08)
[2018-02-19] MEDS: Enoxaparin 30 MG/0.3 ML Syringe SC (05:09)
[2018-02-19] MEDS: Menthol/Lanolin/Calamine/Znox 113 GM Tube 1 APPLIC TOPICAL (05:12)
[2018-02-19 06:35] LABS: Bedside Glucose 121 mg/dL (70-110)
[2018-02-19 07:01] LABS: Absolute Lymphocyte Count 1.18 X10^3/ul (0.83-4.51); Absolute Neutrophil Count 2.9 X10^3/uL (2.0-7.7); Basophil# 0.03 X10^3/uL; Basophil% 0.5 % (0-1); Eosinophil# 0.15 X10^3/uL; Eosinophils% 2.6 % (0-5); Hematocrit 21.4 % (37-47); Hemoglobin 6.7 g/dl (12.0-15.0); Lymphocyte # 1.18 X10^3/ul (4.0); Lymphocyte % 20.8 % (19-41); Mean Corp Hgb Conc 31.3 g/gl (32-36); Mean Corpuscular Hgb 26.9 pg (27.0-32.0); Mean Corpuscular Volume 85.9 fL (81-99); Mean Platelet Vol. 9.5 fl (6.2-12.0); Monocyte# 1.35 X10^3/uL; Monocyte% 23.8 % (0-10); Neutrophil # 2.94 X10^3/uL (2.7-7.7); Neutrophil % 51.8 % (47-70); Platelet Count 232 K/mm3 (150-450); RBC Distribution Width CV 17.1 % (11.6-14.6); RBC Distribution Width SD 53.6 fl (35.1-43.9); Red Blood Count 2.49 M/mm3 (4.2-5.4); White Blood Count 5.7 K/mm3 (4.4-11.0)
[2018-02-19 07:06] LABS: Anion Gap 11 (5-15); BUN 83 mg/dL (7-18); BUN/Creat Ratio 42.1 RATIO (10-20); Calcium,Total 8.6 mg/dL (8.5-10.1); Chloride 108 mmol/L (98-107); Creatinine, Serum 1.97 mg/dL (0.55-1.02); EST Glomerular Filtration Rate 28 mL/min (>60); Est Glom Filt Rate - Afr Amer 33 mL/min (>60); Estimated Creatinine Clearance 28.43 ml/min; Glucose 125 mg/dL (74-106); Potassium 4.1 mmol/L (3.5-5.1); Sodium Level 140 mmol/L (136-145)
[2018-02-19 07:13] LABS: POSITIVE COUNT NO; POSITIVE DIFFERENTIAL NO; POSITIVE MORPHOLOGY NO
[2018-02-19 07:20] LABS: Erythrocyte Sedimentation Rate 58 mm/hr (0-30)
[2018-02-19] MEDS: Glucerna Shake 120 ML LIQUID PO ×2 (08:00→11:53)
[2018-02-19] MEDS: Multivitamins,Ther W-Minerals Tablet 1 TABLET PO (08:00)
[2018-02-19] MEDS: Allopurinol 300 MG Tablet PO (08:00)
[2018-02-19] MEDS: Hydroxychloroquine 200 MG Tablet PO (08:01)
[2018-02-19] MEDS: Iron Polysaccharide Complex 150 MG CAPSULE PO (08:01)
[2018-02-19] MEDS: oxyCODONE 5 MG Tablet PO (08:07)
--- NOTE | 2018-02-19 08:11 | NURSING ---
Pt very irritable this morning. States I am just so tired of being here and I want to go home. Support offered. Patient having pain to ankle, medicated with PRN oxyir. Will continue to monitor.
[2018-02-19] MEDS: 0.9% NaCl PICC Flush IV (09:11)
[2018-02-19] MEDS: 0.9% Normal Saline 1,000 ML 60 ML IV (10:56)
--- NOTE | 2018-02-19 14:58 | NURSING ---
Dr. Elizondo reviewed labs, NO for 2 u PRBC with 20mg lasix in between, recheck CBC and BMP tomorrow. d/c oxyir, ventolin, zofran, zyloprim, vitamin D, colchicine, flexeril, plaquinel, tradjenta, mvi, fish oil caps, mirapex, ultram, tylenol. Decrease elavil to 50mg x5 days then 25mg x 5 days, decrease neurontin to 300mg BID x 5 days then 300mg daily x 5 days. start melatonin 10mg PO QHS, norco , II tabs PO [id number] PRN, IV NS @ 60mL/hr. Patient made aware.
--- NOTE | 2018-02-19 21:15 | NURSING ---
Pt arrived back to floor via bed.
[2018-02-19] MEDS: HYDROcodone Bitartrate/Apap 5/325 Tablet PO (21:20)
[2018-02-19 21:34] VITALS: BP 136/85; PULSE 61; RESP 22; TEMP 36.9; O2SAT 91
--- NOTE | 2018-02-19 21:50 | NURSING ---
Addendum entered by Larissa Holman 02/20/18 02:06: Pt refused ativan along with all HS medications. IV DC'd d/t not flushing. Pt refusing new IV stating I want to wait a few days for my veins to heal. Dr. Elizondo aware. Original Note: Pt very anxious and restless since returning to floor. Dr. Elizondo aware, and new order for ativan 0.5mg X1.
[2018-02-19 22:27] LABS: Vancomycin, Trough Level 22.5 ug/mL (5.0-15.0)
[2018-02-20] MEDS: Menthol/Lanolin/Calamine/Znox 113 GM Tube 1 APPLIC TOPICAL (03:25)
[2018-02-20] MEDS: HYDROcodone Bitartrate/Apap 5/325 Tablet PO ×2 (03:25→09:55)
[2018-02-20] MEDS: Nystatin Powder 15gm Bottle 1 APPLIC TOPICAL (03:25)
--- NOTE | 2018-02-20 05:52 | PCM.RX.CS ---
Consult Pharmacy has been consulted to manage selected antiobiotic: Vancomycin Suspected Infection: Osteomyelitis Labs: Sodium 140 mmol/L (136-145) 02/19/18 05:52 Potassium 4.1 mmol/L (3.5-5.1) 02/19/18 05:52 Chloride 108 mmol/L (98-107) H 02/19/18 05:52 Carbon Dioxide 21.0 mmol/L (21.0-32.0) 02/19/18 05:52 Anion Gap 11 (5-15) 02/19/18 05:52 BUN 83 mg/dL (7-18) H 02/19/18 05:52 Creatinine 1.97 mg/dL (0.55-1.02) H 02/19/18 05:52 Est GFR (MDRD) Af Amer 33 mL/min (>60) L 02/19/18 05:52 Est GFR (MDRD) Non-Af 28 mL/min (>60) L 02/19/18 05:52 BUN/Creatinine Ratio 42.1 RATIO (10-20) H 02/19/18 05:52 Glucose 125 mg/dL (74-106) H 02/19/18 05:52 Vancomycin Trough 22.5 ug/mL (5.0-15.0) H 02/19/18 21:15 Random Vancomycin 13.7 ug/mL (0.0-15.0) 02/04/18 16:30 Microbiology: Microbiology 02/17/18 11:00 Urine, Catheterized Urine Culture - Final Culture exhibits no growth. 02/16/18 14:00 Fluid - Other Gram Stain - Final 02/16/18 14:00 Fluid - Other Body Fluid Culture - Final No growth aerobically. 02/16/18 14:00 Fluid - Other Anaerobic Culture - Preliminary No growth in 48 hours. 02/16/18 14:00 Catheter tip - Iv Cath Tip Gram Stain - Final 02/16/18 14:00 Catheter tip - Iv Cath Tip Wound Culture - Final Staphylococcus epidermidis 02/16/18 14:00 Blood Culture (Wb) - Pic Blood Culture - Preliminary No growth in 48 hours. 02/16/18 12:15 Blood Culture (Wb) - Anticubital Left Blood Culture - Preliminary No growth in 48 hours. 02/05/18 21:35 Urine Catheter - [place] Urine Culture - Final Culture exhibits no growth. Goal Trough: 15-20 mcg/mL Pharmacy Plan for Drug Dosing: Pharmacy Service will continue to monitor and adjust dosing as required. TROUGH 22.5 HOLD DOSE AND DRAW RANDOM VANCO LEVEL 02/20 @ 1100 Follow-Up Labs: Trough Vancomycin Labs to be done on [date and time ordered]: 02/20 @ 1100
[2018-02-20] MEDS: Atenolol 50 MG Tablet PO (05:53)
[2018-02-20] MEDS: dilTIAZem CD 180 MG Capsule PO (05:53)
[2018-02-20] MEDS: Pantoprazole Sodium 40 MG Tablet PO (05:53)
[2018-02-20] MEDS: Enoxaparin 30 MG/0.3 ML Syringe SC (05:53)
[2018-02-20 06:05] LABS: Absolute Lymphocyte Count 1.32 X10^3/ul (0.83-4.51); Absolute Neutrophil Count 4.1 X10^3/uL (2.0-7.7); Basophil# 0.03 X10^3/uL; Basophil% 0.4 % (0-1); Eosinophil# 0.19 X10^3/uL; Eosinophils% 2.7 % (0-5); Hematocrit 26.9 % (37-47); Hemoglobin 8.6 g/dl (12.0-15.0); Lymphocyte # 1.32 X10^3/ul (4.0); Lymphocyte % 19.1 % (19-41); Mean Corpuscular Hgb 27.1 pg (27.0-32.0); Mean Corpuscular Volume 84.9 fL (81-99); Mean Platelet Vol. 9.7 fl (6.2-12.0); Monocyte# 1.25 X10^3/uL; Monocyte% 18.1 % (0-10); Neutrophil # 4.06 X10^3/uL (2.7-7.7); Neutrophil % 58.8 % (47-70); Platelet Count 272 K/mm3 (150-450); RBC Distribution Width CV 16.2 % (11.6-14.6); RBC Distribution Width SD 48.4 fl (35.1-43.9); Red Blood Count 3.17 M/mm3 (4.2-5.4); White Blood Count 6.9 K/mm3 (4.4-11.0)
[2018-02-20 06:13] LABS: POSITIVE COUNT NO; POSITIVE DIFFERENTIAL NO; POSITIVE MORPHOLOGY NO
[2018-02-20 06:50] LABS: Anion Gap 13 (5-15); BUN 80 mg/dL (7-18); BUN/Creat Ratio 38.3 RATIO (10-20); Calcium,Total 9.1 mg/dL (8.5-10.1); Chloride 105 mmol/L (98-107); Creatinine, Serum 2.09 mg/dL (0.55-1.02); EST Glomerular Filtration Rate 26 mL/min (>60); Est Glom Filt Rate - Afr Amer 31 mL/min (>60); Glucose 123 mg/dL (74-106); Potassium 3.8 mmol/L (3.5-5.1); Sodium Level 136 mmol/L (136-145)
[2018-02-20 07:51] LABS: Bedside Glucose 121 mg/dL (70-110)
[2018-02-20] MEDS: Glucerna Shake 120 ML LIQUID PO ×2 (09:34→12:33)
[2018-02-20] MEDS: Iron Polysaccharide Complex 150 MG CAPSULE PO (09:35)
[2018-02-20] MEDS: NYSTATIN 500,000 UNIT/5 ML UDC 500000 UNIT PO ×2 (09:36→12:32)
[2018-02-20 11:51] LABS: Vancomycin, Random Level 19.3 ug/mL (0.0-15.0)
[2018-02-20 15:38] VITALS: BP 131/79; PULSE 61; RESP 18; TEMP 35.8; O2SAT 98
--- NOTE | 2018-02-20 16:44 | PCM.RX.CS ---
Consult Pharmacy has been consulted to manage selected antiobiotic: Vancomycin Type of Consult: Follow-up Suspected Infection: Osteomyelitis Labs: Sodium 136 mmol/L (136-145) 02/20/18 05:30 Potassium 3.8 mmol/L (3.5-5.1) 02/20/18 05:30 Chloride 105 mmol/L (98-107) 02/20/18 05:30 Carbon Dioxide 18.0 mmol/L (21.0-32.0) L 02/20/18 05:30 Anion Gap 13 (5-15) 02/20/18 05:30 BUN 80 mg/dL (7-18) H 02/20/18 05:30 Creatinine 2.09 mg/dL (0.55-1.02) H 02/20/18 05:30 Est GFR (MDRD) Af Amer 31 mL/min (>60) L 02/20/18 05:30 Est GFR (MDRD) Non-Af 26 mL/min (>60) L 02/20/18 05:30 BUN/Creatinine Ratio 38.3 RATIO (10-20) H 02/20/18 05:30 Glucose 123 mg/dL (74-106) H 02/20/18 05:30 Vancomycin Trough 22.5 ug/mL (5.0-15.0) H 02/19/18 21:15 Random Vancomycin 19.3 ug/mL (0.0-15.0) H 02/20/18 11:00 Microbiology: Microbiology 02/17/18 11:00 Urine, Catheterized Urine Culture - Final Culture exhibits no growth. 02/16/18 14:00 Fluid - Other Gram Stain - Final 02/16/18 14:00 Fluid - Other Body Fluid Culture - Final No growth aerobically. 02/16/18 14:00 Fluid - Other Anaerobic Culture - Preliminary No growth in 48 hours. 02/16/18 14:00 Catheter tip - Iv Cath Tip Gram Stain - Final 02/16/18 14:00 Catheter tip - Iv Cath Tip Wound Culture - Final Staphylococcus epidermidis 02/16/18 14:00 Blood Culture (Wb) - Pic Blood Culture - Preliminary No growth in 48 hours. 02/16/18 12:15 Blood Culture (Wb) - Anticubital Left Blood Culture - Preliminary No growth in 48 hours. 02/05/18 21:35 Urine Catheter - Gardner Urine Culture - Final Culture exhibits no growth. Goal Trough: 15-20 mcg/mL Pharmacy Plan for Drug Dosing: Pt has had several doses held due to having a trough above 20. Current trough came back 02/20/18 at 19.7. Recommend holding dose 02/20/18 and drawing a random level at 0600 on 02/21/18. Pharmacy Service will continue to monitor and adjust dosing as required. Follow-Up Labs: Trough Vancomycin - random Labs to be done on [date and time ordered]: random vanc level 0600 02/21/18
[2018-02-20] MEDS: Acetaminophen 500 MG Tablet 1000 MG PO (18:32)
--- NOTE | 2018-02-20 19:50 | NURSING ---
pt states I wish i was I should just . and gesturing holding a gun to her head, pt placed in suicide precautions, physician notified, nursing belt and link assembly supervisor notified, crisis notified, but pt must be more medically stable per crisis counselor
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
--- NOTE | 2018-02-20 21:24 | NURSING ---
Pt yelling out, screaming and cussing. Refusing any meds and stating You guys are going to treat me like shit Im going to treat you like shit and act fucking crazy! Sitter present in room. 1:1 provided. Education provided on importance of meds and why they are ordered. Pt stating Im sick of listening to this shit and Im not listening to your fucking lecture. Pt complaint of mouth being sore. This nurse tried to explain that BMX solution was ordered. Pt interrupting this nurse numerous times cussing and stating I don't trust this [facility] and those [facility]! Pt remains in suicide precautions with sitter at bedside.
[2018-02-20] MEDS: BMX LIQUID 180 ML 10 ML PO (22:30)
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
[2018-02-21] MEDS: Acetaminophen 500 MG Tablet 1000 MG PO ×3 (02:24→20:56)
--- NOTE | 2018-02-21 03:51 | NURSING ---
Pt sitting on the edge of the bed with rt leg hanging down over the edge refusing for side rail to be up. Lt leg elevated on bed. Pt drifting off to sleep while sitting up and leaning off to the right. Pt refusing to slide over in the bed or lie down. Pt drifting off numerous times almost falling out of the bed. Pt stating Just tie a God damn rope around my neck and then tie to the bed. I wont fall out then!' Numerous interventions were attempted. This nurse and sitter attempted to redirected pt but were not able. Pt drowsy, restless and agitated. Sitter remains in room.
[2018-02-21 04:36] LABS: Bedside Glucose 102 mg/dL (70-110)
[2018-02-21] MEDS: dilTIAZem CD 180 MG Capsule PO (06:50)
[2018-02-21] MEDS: Atenolol 50 MG Tablet PO (06:50)
[2018-02-21] MEDS: Iron Polysaccharide Complex 150 MG CAPSULE PO (06:51)
[2018-02-21] MEDS: Gabapentin 300 MG Capsule PO ×2 (06:51→17:37)
[2018-02-21] MEDS: Pantoprazole Sodium 40 MG Tablet PO (06:54)
[2018-02-21 07:01] LABS: Bedside Glucose 117 mg/dL (70-110)
[2018-02-21 07:53] LABS: Vancomycin, Random Level 17.5 ug/mL (0.0-15.0)
--- NOTE | 2018-02-21 09:17 | PCM.RX.CS ---
Consult Pharmacy has been consulted to manage selected antiobiotic: Vancomycin Type of Consult: Follow-up Suspected Infection: Osteomyelitis Labs: Sodium 136 mmol/L (136-145) 02/20/18 05:30 Potassium 3.8 mmol/L (3.5-5.1) 02/20/18 05:30 Chloride 105 mmol/L (98-107) 02/20/18 05:30 Carbon Dioxide 18.0 mmol/L (21.0-32.0) L 02/20/18 05:30 Anion Gap 13 (5-15) 02/20/18 05:30 BUN 80 mg/dL (7-18) H 02/20/18 05:30 Creatinine 2.09 mg/dL (0.55-1.02) H 02/20/18 05:30 Est GFR (MDRD) Af Amer 31 mL/min (>60) L 02/20/18 05:30 Est GFR (MDRD) Non-Af 26 mL/min (>60) L 02/20/18 05:30 BUN/Creatinine Ratio 38.3 RATIO (10-20) H 02/20/18 05:30 Glucose 123 mg/dL (74-106) H 02/20/18 05:30 Vancomycin Trough 22.5 ug/mL (5.0-15.0) H 02/19/18 21:15 Random Vancomycin 17.5 ug/mL (0.0-15.0) H 02/21/18 07:00 Microbiology: Microbiology 02/16/18 14:00 Fluid - Other Gram Stain - Final 02/16/18 14:00 Fluid - Other Body Fluid Culture - Final No growth aerobically. 02/16/18 14:00 Fluid - Other Anaerobic Culture - Final No growth in 5 days. 02/17/18 11:00 Urine, Catheterized Urine Culture - Final Culture exhibits no growth. 02/16/18 14:00 Catheter tip - Iv Cath Tip Gram Stain - Final 02/16/18 14:00 Catheter tip - Iv Cath Tip Wound Culture - Final Staphylococcus epidermidis 02/16/18 14:00 Blood Culture (Wb) - Pic Blood Culture - Preliminary No growth in 48 hours. 02/16/18 12:15 Blood Culture (Wb) - Anticubital Left Blood Culture - Preliminary No growth in 48 hours. 02/05/18 21:35 Urine Catheter - Gardner Urine Culture - Final Culture exhibits no growth. Weight used for dosin.2 kg Estimated Creatinine Clearance: ~27 ml/min Goal Trough: 15-20 mcg/mL Pharmacy Plan for Drug Dosing: Vancomycin random level this am 17.5 (goal range 15-20 mcg/ml). Cr 2.09 and CrCl ~27 ml/min. Will repeat random level 02.22.18 for follow up dosing. Pharmacy Service will continue to monitor and adjust dosing as required. Follow-Up Labs: Trough Other - vanco random level 02.22.18 @0600
[2018-02-21] MEDS: Glucerna Shake 120 ML LIQUID PO ×3 (09:23→17:36)
[2018-02-21] MEDS: Divalproex Sodium 250 MG Tablet 500 MG PO ×3 (09:23→17:36)
[2018-02-21] MEDS: Bisacodyl 5 MG Tablet 10 MG PO (12:48)
[2018-02-21 16:00] VITALS: BP 166/81; PULSE 63; RESP 22; TEMP 36.9; O2SAT 98
[2018-02-21] MEDS: Tamsulosin HCl 0.4 MG Capsule PO (17:36)
--- NOTE | 2018-02-21 20:23 | NURSING ---
Pt requesting Flexeril at this time for restless legs. Dr Elizondo notified. N.O. for x1 dose Flexeril 10mg ordered.
[2018-02-21] MEDS: Amitriptyline 25 MG Tablet 50 MG PO (20:51)
[2018-02-21] MEDS: Atorvastatin Calcium 40 MG Tablet PO (20:51)
[2018-02-21] MEDS: MELATONIN 10 MG TABLET PO (20:52)
[2018-02-21 21:00] VITALS: PULSE 69; O2SAT 96
--- NOTE | 2018-02-21 22:28 | NURSING ---
Attempted to flush IV this evening for IV medication administration. IV infiltrated. Attempted to insert new IV; unsuccessful. Mine Motor Operator notified; also unsuccessful with venipuncture. Dr Elizondo notified; per Dr Elizondo IV medication not given. poultry veterinarian to be notified tomorrow for PICC line insertion.
--- NOTE | 2018-02-21 22:49 | NURSING ---
Addendum entered by Kathy Turk 02/21/18 23:41: Pt LLE elevated at this time. Original Note: Pt encouraged many times this evening to keep LLE elevated in chair per order. Pt attempted to keep LLE up, but c/o spasms to bilateral legs. x1 dose of Flexeril previously given. Rosita ZULETA at bedside as sitter, pt continues to refuse to keep LLE elevated. Pt swatted at sitter. Pt left alone at this time. Will continue to monitor.
--- NOTE | 2018-02-21 23:51 | NURSING ---
Dr. Elizondo notified of patient's increased pain and that she is requesting ultram. New order given for tramadol 100 mg x 1.
[2018-02-22] MEDS: traMADol 50 MG Tablet 100 MG PO (00:07)
[2018-02-22 04:59] VITALS: BP 139/75; PULSE 56
[2018-02-22] MEDS: Atenolol 50 MG Tablet PO (05:00)
[2018-02-22] MEDS: Pantoprazole Sodium 40 MG Tablet PO (05:00)
[2018-02-22] MEDS: Gabapentin 300 MG Capsule PO ×2 (05:01→16:15)
[2018-02-22] MEDS: dilTIAZem CD 180 MG Capsule PO (05:01)
[2018-02-22 06:40] LABS: Vancomycin, Random Level 13.5 ug/mL (0.0-15.0)
[2018-02-22 06:45] LABS: Bedside Glucose 86 mg/dL (70-110)
--- NOTE | 2018-02-22 07:23 | PHA.PHARE_ITS ---
Consult Pharmacy has been consulted to manage selected antiobiotic: Vancomycin Type of Consult: Follow-up Suspected Infection: Other Prior Doses of Antibiotics Received/Current Regimen: Medications Discontinued Medications Vancomycin HCl 750 mg/ Sodium (Chloride) 265 mls @ 250 mls/hr IV Q24H COLUMBA Stop: 03/12/18 22:35 Last Admin: 02/19/18 23:13 Dose: Not Given Labs: Sodium 136 mmol/L (136-145) 02/20/18 05:30 Potassium 3.8 mmol/L (3.5-5.1) 02/20/18 05:30 Chloride 105 mmol/L (98-107) 02/20/18 05:30 Carbon Dioxide 18.0 mmol/L (21.0-32.0) L 02/20/18 05:30 Anion Gap 13 (5-15) 02/20/18 05:30 BUN 80 mg/dL (7-18) H 02/20/18 05:30 Creatinine 2.09 mg/dL (0.55-1.02) H 02/20/18 05:30 Est GFR (MDRD) Af Amer 31 mL/min (>60) L 02/20/18 05:30 Est GFR (MDRD) Non-Af 26 mL/min (>60) L 02/20/18 05:30 BUN/Creatinine Ratio 38.3 RATIO (10-20) H 02/20/18 05:30 Glucose 123 mg/dL (74-106) H 02/20/18 05:30 Vancomycin Trough 22.5 ug/mL (5.0-15.0) H 02/19/18 21:15 Random Vancomycin 13.5 ug/mL (0.0-15.0) 02/22/18 06:00 Microbiology: Microbiology 02/16/18 14:00 Blood Culture (Wb) - Pic Blood Culture - Final No growth in 5 days. 02/16/18 12:15 Blood Culture (Wb) - Anticubital Left Blood Culture - Final No growth in 5 days. 02/16/18 14:00 Fluid - Other Gram Stain - Final 02/16/18 14:00 Fluid - Other Body Fluid Culture - Final No growth aerobically. 02/16/18 14:00 Fluid - Other Anaerobic Culture - Final No growth in 5 days. 02/17/18 11:00 Urine, Catheterized Urine Culture - Final Culture exhibits no growth. 02/16/18 14:00 Catheter tip - Iv Cath Tip Gram Stain - Final 02/16/18 14:00 Catheter tip - Iv Cath Tip Wound Culture - Final Staphylococcus epidermidis 02/05/18 21:35 Urine Catheter - Gardner Urine Culture - Final Culture exhibits no growth. Weight used for dosin kg Estimated Creatinine Clearance: 26 mL/min Goal Trough: 15-20 mcg/mL Pharmacy Plan for Drug Dosing: Patient's kinetics mostly unchanged for past few days, has been stable with a calculated recommend dose of 750mg IV q24h or 1250mg IV q36h. Patient likely just needed time to clear vanco after being on q12h dosing. Recommend to re- start vancomycin 1250mg IV q36h to allow for adequate dosing at 110kg as well as sufficient time for clearance. Trough prior to next dose. Pharmacy Service will continue to monitor and adjust dosing as required. Follow-Up Labs: Trough Vancomycin - 02/23 @ 2100
[2018-02-22] MEDS: Iron Polysaccharide Complex 150 MG CAPSULE PO (09:10)
[2018-02-22] MEDS: Glucerna Shake 120 ML LIQUID PO ×3 (09:10→16:14)
[2018-02-22] MEDS: Divalproex Sodium 250 MG Tablet 500 MG PO ×2 (09:10→12:35)
[2018-02-22] MEDS: Acetaminophen 500 MG Tablet 1000 MG PO ×3 (09:45→22:18)
[2018-02-22 15:56] VITALS: BP 171/81; PULSE 63; RESP 18; TEMP 36.9; O2SAT 98
[2018-02-22] MEDS: Tamsulosin HCl 0.4 MG Capsule PO (16:12)
--- NOTE | 2018-02-22 20:00 | NURSING ---
credit or loans officer in room
--- NOTE | 2018-02-22 21:00 | NURSING ---
Pt c/o pain and upset her flexeril was DC'd. Pt requesting flexeril at this time. Dr. Elizondo aware, and new order for 10mg flexeril X1.
[2018-02-22] MEDS: Atorvastatin Calcium 40 MG Tablet PO (21:08)
[2018-02-22] MEDS: Amitriptyline 25 MG Tablet 50 MG PO (21:08)
[2018-02-22] MEDS: 0.9% NaCl PICC Flush IV (21:29)
--- NOTE | 2018-02-22 22:00 | NURSING ---
IV DC'd from left hand per pts request.
[2018-02-23] MEDS: Acetaminophen 500 MG Tablet 1000 MG PO ×3 (05:14→22:11)
[2018-02-23] MEDS: Polyethylene Glycol 3350 17 GM PACKET PO (05:17)
[2018-02-23] MEDS: Enoxaparin 30 MG/0.3 ML Syringe SC (05:17)
[2018-02-23] MEDS: Gabapentin 300 MG Capsule PO ×2 (05:17→16:34)
[2018-02-23] MEDS: dilTIAZem CD 180 MG Capsule PO (05:17)
[2018-02-23 06:51] LABS: Bedside Glucose 120 mg/dL (70-110)
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
[2018-02-23] MEDS: Glucerna Shake 120 ML LIQUID PO ×3 (09:11→16:33)
[2018-02-23] MEDS: Iron Polysaccharide Complex 150 MG CAPSULE PO (09:12)
[2018-02-23] MEDS: BMX LIQUID 180 ML 10 ML PO (09:14)
--- NOTE | 2018-02-23 09:44 | NURSING ---
Dr Elizondo in to speak with pt this AM. Ok to remove pt from suicide precautions. Cami, manager quality compliance notified. Pt resting in bed with eyes closed on lt side. Depakote dc'd and elavil increased at HS
[2018-02-23] MEDS: 0.9% NaCl PICC Flush IV ×3 (10:09→21:54)
--- NOTE | 2018-02-23 11:06 | NURSING ---
R' UPDATED ON ALL NEW ORDERS FROM THIS AM. R' AGREEABLE.
--- NOTE | 2018-02-23 11:20 | CASEMGMT ---
Social Work Nursing communicating that resident frustration with being in suicide precautions along with concerns of missing items. This web content & social media manager meeting with resident in room. When this web content & social media manager entered the room resident presented as physically upset as seen through rummaging through bags sitting on bed and voicing frustration with not having my stuff. This web content & social media manager clarifying with resident on what resident meant as stuff. Resident reporting to have been missing some mail items. This web content & social media manager inquiring if resident was agreeable to this web content & social media manager looking in resident draw and closet for the mail, resident is agreeable. This web content & social media manager noting that nothing was in the draws but found a bag of mail in the closet. This web content & social media manager giving the mail to the resident, resident reporting that that was what resident was looking for. Resident then went into frustration with why resident was put into suicide precautions over the weekend. This web content & social media manager communicating that resident stated suicidal thoughts, intentions and a plan. Resident then stating that resident has a sense of humor that clearly no one gets on this floor. This web content & social media manager educating resident on reasons why all statements of suicidal thoughts, intentions and plans must be taken seriously. Resident continues to state frustration with suicide precautions, this web content & social media manager attempting multiple times to communicate reasons for suicide concern in residents specific case, resident then changing subject to questions about medications and what medications resident is currently taking. This web content & social media manager referring to nursing/medical staff in regards to residents medication questions. Resident also reporting to not trust staff to provide resident with correct medication, this web content & social media manager empowering resident by communicating that resident is able to ask what medications resident is taking prior to resident taking them, resident voicing understanding. Resident denies any suicidal thoughts, ideations, or plans at this time. Dr. Covington then entering the room and discussing resident medical status with resident. Resident able to manage emotions while finishing speaking with this web content & social media manager and then talking further with Dr. Covington. Resident presenting as less frustrated at this time. Support given. Will continue to follow as needed. Diana Cantu, LEAD PHARMACY TECHNICIAN, J2EE SOFTWARE ENGINEER
--- NOTE | 2018-02-23 11:37 | NURSING ---
Addendum entered by Katina Whyte 02/23/18 16:29: JULIA Ortiz found rest of pts mail in pt closet. Original Note: pt c/o missing personal items, like hairbrush, checkbook, & mail. 2 bags of personal items returned to pt from locked med room. Shoe box with mail and checkbook in one bag and then personal items like toothbrush, hairbrush, basin, lotion etc in other bag returned to her. Pt stating that she is still missing mail, JULIA Ortiz notified and in speaking with pt now.
[2018-02-23 15:23] VITALS: BP 152/81; PULSE 69; RESP 14; TEMP 36.5; O2SAT 98
[2018-02-23] MEDS: Tamsulosin HCl 0.4 MG Capsule PO (16:34)
--- NOTE | 2018-02-23 16:39 | PN.ID_ITS ---
Patient Problems: Active and Suspected Problems (Last Reviewed 01/21/18 @ 12:13 by Arslan Robbins MD) Open left ankle fracture (Acute) Anemia (Acute) Subjective: Feeling ok, mouth slightly less sore, determined to get better. - Physical Exam General: Alert, Cooperative, No apparent distress Lungs: Clear to auscultation, Normal air movement Cardiovascular: Regular rate, Regular Rhythm Abdomen: Soft, Non Tender, Non-Distended Skin: Ulcer/ Wound - external hardware on LLE Vital Signs Temp Pulse Resp BP Pulse Ox 97.7 F L 69 14 152/81 H 98 02/23/18 15:23 02/23/18 15:23 02/23/18 15:23 02/23/18 15:23 02/23/18 15:23 Oxygen Flow Rate (L/min) 2 Oxygen Delivery Method Room Air Weight: 110.28 kg Body Mass Index (BMI) 37.3 Intake and Output for Last 24 Hours 02/21/18 02/22/18 02/23/18 23:59 23:59 23:59 Intake Total 360 / 360 970 / 970 Output Total 4750 / 4750 2650 / 2650 4025 / 4025 Balance -4750 / -4750 -2290 / -2290 -3055 / -3055 Microbiology Past 72 Hours 02/16/18 14:00 Blood Culture - Final Blood Culture (Wb) - Pic No growth in 5 days. 02/16/18 12:15 Blood Culture - Final Blood Culture (Wb) - Anticubital Left No growth in 5 days. 02/16/18 14:00 Gram Stain - Final Fluid - Other Body Fluid Culture - Final No growth aerobically. Anaerobic Culture - Final No growth in 5 days. 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 No sign of endocarditis on finger/toenails. No spine tenderness. Bcx from 01/16 is neg. TTE done, no need for YEIMY at this time. Taken to OR for lenny ridement by Dr. Covington 01/20. BKA may be necessary. Continue vanc. Has nausea with PCN, tolerates cefazolin, amoxicillin with no issue. Narrowed meropenem to cefepime given past cx here and at [place] with Pseudomonas spp. Cr at baseline. Plan on at least 6 week course of iv abx and then indefinite course with po given infected hardware. Stop date for vanc/cefepime planned for 03/03/18. Weekly bmp, cbc, esr, and vanc trough while on iv abx. After finishing iv abx, plan will be for indefinite course of po doxy 100mg bid. Taken to OR 01/29 for hardware removal and external fixator placement. Bone cx from that surgery (+) for MRSA. Repeat surgery again on 01/05, again (+) for MRSA. Stop date will be pushed back based on need for ongoing debridement and ongoing infection. Developed some fever and chills with picc redness - sent bcx of picc and periphery. Pulled picc 02/16 and tip for cx. UA and Ucx neg so far. Bcx, tip cx, and drainage cx also neg. Taken back to OR 02/17, and then again planned for 02/26. Has slight rise in Cr, monitoring while on iv abx. Will follow.
[2018-02-23] MEDS: Atorvastatin Calcium 40 MG Tablet PO (21:16)
[2018-02-23] MEDS: Amitriptyline 25 MG Tablet 50 MG PO (21:16)
[2018-02-23 21:27] LABS: Vancomycin, Trough Level 17.6 ug/mL (5.0-15.0)
--- NOTE | 2018-02-24 03:33 | PCM.RX.CS ---
Consult Pharmacy has been consulted to manage selected antiobiotic: Vancomycin Type of Consult: Follow-up Suspected Infection: Osteomyelitis Labs: Sodium 136 mmol/L (136-145) 02/20/18 05:30 Potassium 3.8 mmol/L (3.5-5.1) 02/20/18 05:30 Chloride 105 mmol/L (98-107) 02/20/18 05:30 Carbon Dioxide 18.0 mmol/L (21.0-32.0) L 02/20/18 05:30 Anion Gap 13 (5-15) 02/20/18 05:30 BUN 80 mg/dL (7-18) H 02/20/18 05:30 Creatinine 2.09 mg/dL (0.55-1.02) H 02/20/18 05:30 Est GFR (MDRD) Af Amer 31 mL/min (>60) L 02/20/18 05:30 Est GFR (MDRD) Non-Af 26 mL/min (>60) L 02/20/18 05:30 BUN/Creatinine Ratio 38.3 RATIO (10-20) H 02/20/18 05:30 Glucose 123 mg/dL (74-106) H 02/20/18 05:30 Vancomycin Trough 17.6 ug/mL (5.0-15.0) H 02/23/18 20:41 Random Vancomycin 13.5 ug/mL (0.0-15.0) 02/22/18 06:00 Microbiology: Microbiology 02/23/18 20:15 Interface Orders Stool Occult Blood (KHARI) - Final Occult Blood Positive 02/16/18 14:00 Blood Culture (Wb) - Pic Blood Culture - Final No growth in 5 days. 02/16/18 12:15 Blood Culture (Wb) - Anticubital Left Blood Culture - Final No growth in 5 days. 02/16/18 14:00 Fluid - Other Gram Stain - Final 02/16/18 14:00 Fluid - Other Body Fluid Culture - Final No growth aerobically. 02/16/18 14:00 Fluid - Other Anaerobic Culture - Final No growth in 5 days. 02/17/18 11:00 Urine, Catheterized Urine Culture - Final Culture exhibits no growth. 02/16/18 14:00 Catheter tip - Iv Cath Tip Gram Stain - Final 02/16/18 14:00 Catheter tip - Iv Cath Tip Wound Culture - Final Staphylococcus epidermidis 02/05/18 21:35 Urine Catheter - Gardner Urine Culture - Final Culture exhibits no growth. Estimated Creatinine Clearance: 26.8 Goal Trough: 15-20 mcg/mL Pharmacy Plan for Drug Dosing: Pharmacy Service will continue to monitor and adjust dosing as required. Medications Vancomycin HCl 1,250 mg/ (Sodium Chloride) 275 mls @ 167 mls/hr IV Q36H [facility] Stop: 03/12/18 10:39 Last Admin: 02/23/18 21:53 Dose: 167 mls/hr TROUGH 17.6 IN RANGE NO CHANGES. NEXT TROUGH 02/26 @ 2100 DUE TO RECENT CHANGES
[2018-02-24] MEDS: Polyethylene Glycol 3350 17 GM PACKET PO (04:58)
[2018-02-24] MEDS: dilTIAZem CD 180 MG Capsule PO (04:58)
[2018-02-24] MEDS: Enoxaparin 30 MG/0.3 ML Syringe SC (04:58)
[2018-02-24] MEDS: Gabapentin 300 MG Capsule PO ×2 (04:59→18:09)
[2018-02-24] MEDS: Acetaminophen 500 MG Tablet 1000 MG PO ×2 (05:29→18:11)
[2018-02-24] MEDS: Iron Polysaccharide Complex 150 MG CAPSULE PO (07:50)
[2018-02-24] MEDS: Glucerna Shake 120 ML LIQUID PO ×3 (07:51→18:07)
[2018-02-24] MEDS: 0.9% NaCl PICC Flush IV ×2 (10:21→21:23)
[2018-02-24 16:00] VITALS: BP 159/77; PULSE 77; RESP 20; TEMP 36.8; O2SAT 98
[2018-02-24] MEDS: Tamsulosin HCl 0.4 MG Capsule PO (18:09)
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
--- NOTE | 2018-02-24 20:31 | NURSING ---
Patient c/o muscle spasm and requesting flexril. States that she takes it at night when she gets muscle cramps really bad. Dr. Elizondo notified. New order given.
[2018-02-24] MEDS: Atorvastatin Calcium 40 MG Tablet PO (21:18)
[2018-02-24] MEDS: Amitriptyline 25 MG Tablet 50 MG PO (21:18)
[2018-02-25] MEDS: Acetaminophen 500 MG Tablet 1000 MG PO ×3 (02:48→21:12)
[2018-02-25] MEDS: Enoxaparin 30 MG/0.3 ML Syringe SC (05:29)
[2018-02-25] MEDS: dilTIAZem CD 180 MG Capsule PO (05:29)
[2018-02-25] MEDS: Gabapentin 300 MG Capsule PO (05:30)
[2018-02-25 06:09] LABS: International Normalized Ratio 1.2; Prothrombin Time (Protime)PT. 15.6 SECONDS (11.7-14.9)
[2018-02-25 06:14] LABS: Absolute Lymphocyte Count 2.24 X10^3/ul (0.83-4.51); Absolute Neutrophil Count 4.1 X10^3/uL (2.0-7.7); Basophil# 0.04 X10^3/uL; Basophil% 0.5 % (0-1); Eosinophil# 0.24 X10^3/uL; Eosinophils% 3.2 % (0-5); Hematocrit 33.2 % (37-47); Hemoglobin 10.4 g/dl (12.0-15.0); Lymphocyte # 2.24 X10^3/ul (4.0); Lymphocyte % 30.3 % (19-41); Mean Corp Hgb Conc 31.3 g/gl (32-36); Mean Corpuscular Hgb 26.7 pg (27.0-32.0); Mean Corpuscular Volume 85.1 fL (81-99); Mean Platelet Vol. 9.1 fl (6.2-12.0); Monocyte# 0.71 X10^3/uL; Monocyte% 9.6 % (0-10); Neutrophil # 4.14 X10^3/uL (2.7-7.7); Platelet Count 213 K/mm3 (150-450); RBC Distribution Width CV 16.3 % (11.6-14.6); RBC Distribution Width SD 50.2 fl (35.1-43.9); White Blood Count 7.4 K/mm3 (4.4-11.0)
[2018-02-25 06:25] LABS: POSITIVE COUNT NO; POSITIVE DIFFERENTIAL NO; POSITIVE MORPHOLOGY NO
[2018-02-25 06:27] LABS: ALB/GLOB Ratio 0.4 RATIO (0.9-2.4); AST(SGOT) 26 U/L (15-37); Alanine Aminotransfer ALT/SGPT 28 U/L (13-56); Albumin, Serum 2.2 g/dL (3.2-5.0); Alkaline Phosphatase 137 U/L (45-117); Anion Gap 8 (5-15); BUN 52 mg/dL (7-18); BUN/Creat Ratio 37.1 RATIO (10-20); Calcium,Total 9.1 mg/dL (8.5-10.1); Chloride 107 mmol/L (98-107); EST Glomerular Filtration Rate 41 mL/min (>60); Est Glom Filt Rate - Afr Amer 49 mL/min (>60); Globulin 5.1 g/dL (2.2-4.2); Glucose 104 mg/dL (74-106); Protein, Total 7.3 g/dL (6.4-8.2); Sodium Level 141 mmol/L (136-145)
[2018-02-25 07:40] LABS: Bedside Glucose 108 mg/dL (70-110)
[2018-02-25] MEDS: Iron Polysaccharide Complex 150 MG CAPSULE PO (09:00)
[2018-02-25] MEDS: Glucerna Shake 120 ML LIQUID PO (09:00)
--- NOTE | 2018-02-25 09:12 | NURSING ---
PA in from Dr. Ty's office, Patient to have EGD and colonoscopy possibly tomorrow. Will call unit with time and orders, have to discuss with Dr. Covington to see when ankle surgery scheduled.
--- NOTE | 2018-02-25 09:25 | CON.PCM_ITS ---
<Shimon Ty - Last Filed: 02/25/18 09:49> Reason for Consult History of Present Illness: The patient is a 58 year old F [] Past Medical History Past Medical History (Chronic Problems): Chronic Problems (Last Reviewed 02/25/18 @ 11:58 by Viviane Aranda PA-C) Alopecia (Chronic) alopecia overlying soft tissue mass right temporal parietal scalp Head mass (Chronic) 8 cm soft tissue mass right temporal parietal scalp with overlying alopecia Rheumatoid arthritis (Chronic) Gout (Chronic) Tinea unguium (Chronic) Type 2 diabetes mellitus with diabetic polyneuropathy (Chronic) Peripheral neuropathy (Chronic) Arthritis (Chronic) Hypertension (Chronic) High cholesterol (Chronic) Hypertension (Chronic) Hyperlipidemia (Chronic) Type 2 diabetes mellitus (Chronic) 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) Uncontrolled type 2 diabetes mellitus (Chronic) Non-pressure chronic ulcer of other part of right foot limited to breakdown of skin (Chronic) Tobacco use disorder (Chronic) Pure hypercholesterolemia (Chronic) History of hypertension (Chronic) Type 2 diabetes mellitus with diabetic polyneuropathy (Chronic) History of gout (Chronic) Obesity (Chronic) COPD (chronic obstructive pulmonary disease) (Chronic) Chronic renal insufficiency, stage III (moderate) (Chronic) Type 2 diabetes mellitus with foot ulcer (Chronic) History of diabetes mellitus, type II (Chronic) Medical History: Medical History (Last Reviewed 01/21/18 @ 12:13 by Arslan Robbins MD) Arthritis (Chronic) M19.90 Hypertension (Chronic) I10 High cholesterol (Chronic) E78.00 Clostridium difficile infection B96.89 Gout M10.9 Heart disease I51.9 Inflammatory arthritis M19.90 Lupus L93.0 Rheumatoid arthritis M06.9 Diabetes E11.9 Allergies aspirin Allergy (Verified 02/24/18 10:24) Hives latex Allergy (Verified 02/24/18 10:24) Hives Penicillins Allergy (Verified 02/24/18 10:24) Hives naproxen [From Aleve] Adverse Reaction (Severe, Verified 02/24/18 10:24) Kidney disease Stage 3 Home Medications: Ambulatory Orders Medication Instructions Recorded Allopurinol 300 mg PO DAILY 12/03/16 Amitriptyline HCl 75 mg PO QHS 12/03/16 Atenolol 50 mg PO DAILY 09/05/17 cholecalciferol (vitamin D3) 2,000 2,000 unit PO DAILY 05/27/17 unit capsule diltiazem CD 180 mg 180 mg PO DAILY 05/27/17 capsule,extended release 24 hr hydroxychloroquine 200 mg tablet 200 mg PO QDAY 05/27/17 omega-3 fatty acids 1,000 mg 1,000 mg PO QDAY 05/27/17 capsule sitagliptin 100 mg tablet 100 mg PO QDAY 05/27/17 gabapentin 300 mg capsule 300 mg PO TID cap 08/19/17 ipratropium 20 mcg-albuterol 100 1 inh INHALATION Q6H PRN #4 g 08/22/17 mcg/actuation mist for inhalation Atorvastatin Calcium [Lipitor] 40 mg PO QDAY 01/13/18 Cyclobenzaprine HCl 10 mg PO TID PRN PRN 01/13/18 Multivit-Min/Iron/Folic/Lutein 1 tab PO DAILY 01/13/18 [Centrum Silver Women Tablet] Acetaminophen [Tylenol Tablet] 650 mg PO Q6H PRN PRN tablet 01/21/18 Cefepime HCl [Maxipime] 2 gm IV Q12 01/21/18 Insulin Lispro [Humalog KwikPen] See Protocol SQ ACHS 01/21/18 Magnesium Hydroxide [Milk Of 30 ml PO DAILY PRN PRN udc 01/21/18 Magnesia] Mometasone Furoate [Nasonex] 2 spray INTRANASAL QDAY 01/21/18 Vancomycin IV 1,500 mg IV Q24H 01/21/18 Surgical History: Surgical History (Last Reviewed 01/21/18 @ 12:13 by Arslan Robbins MD) History of carpal tunnel release Z98.890 History of hysterectomy Z98.890, Z90.710 amputation of right pinke toe history of 2 back sugeries history of right femoral stent history of right shoulder surgery - *Family History Maternal Family History: Family History (Last Reviewed 01/21/18 @ 12:14 by Arslan Robbins MD) Mother Diabetes Hypertension CVA (cerebral vascular accident) Brother Alcoholism Sister Cancer Father Heart disease Respiratory disease Paternal Family History: Family History (Last Reviewed 01/21/18 @ 12:14 by Arslan Robbins MD) Mother Diabetes Hypertension CVA (cerebral vascular accident) Brother Alcoholism Sister Cancer Father Heart disease Respiratory disease Patient Problems: Active and Suspected Problems (Last Reviewed 02/25/18 @ 11:58 by Viviane bello PA-C) Open left ankle fracture (Acute) Anemia (Acute) - Physical Exam Vital Signs Temp Pulse Resp BP Pulse Ox 98.2 F 77 20 H 159/77 H 98 02/24/18 16:00 02/24/18 16:00 02/24/18 16:00 02/24/18 16:00 02/24/18 16:00 Oxygen Flow Rate (L/min) 2 Oxygen Delivery Method Room Air Weight: 220 lb 3 oz Body Mass Index (BMI) 37.3 Intake and Output for Last 24 Hours 02/23/18 02/24/18 02/25/18 23:59 23:59 23:59 Intake Total 1070 / 1070 1920 / 1920 120 / 120 Output Total 4825 / 4825 2600 / 2600 650 / 650 Balance -3755 / -3755 -680 / -680 -530 / -530 Microbiology Past 72 Hours 02/23/18 20:15 Stool Occult Blood (KHARI) - Final Interface Orders Occult Blood Positive 02/16/18 14:00 Blood Culture - Final Blood Culture (Wb) - Pic No growth in 5 days. Laboratory Tests Past 24 Hrs 02/25/18 02/25/18 02/25/18 05:30 05:30 05:30 WBC 7.4 RBC 3.90 L Hgb 10.4 L Hct 33.2 L MCV 85.1 MCH 26.7 L MCHC 31.3 L RDW 16.3 H RDW Differential 50.2 H Plt Count 213 MPV 9.1 Immature Gran % (Auto) 0.400 Neut % (Auto) 56.0 Lymph % (Auto) 30.3 [place] % (Auto) 9.6 Eos % (Auto) 3.2 Baso % (Auto) 0.5 Absolute Neuts (auto) 4.1 Absolute Lymphs (auto) 2.24 Total Counted Not Reportable PT 15.6 H INR 1.2 Sodium 141 Potassium 4.0 Chloride 107 Carbon Dioxide 26.0 Anion Gap 8 BUN 52 H Creatinine 1.40 H Estim Creat Clear Calc 40.00 Est GFR (MDRD) Af Amer 49 L Est GFR (MDRD) Non-Af 41 L BUN/Creatinine Ratio 37.1 H Glucose 104 Calcium 9.1 Total Bilirubin 0.40 AST 26 ALT 28 Alkaline Phosphatase 137 H Total Protein 7.3 Albumin 2.2 L Globulin 5.1 H Albumin/Globulin Ratio 0.4 L Vit D 1,25-Dihydroxy 02/25/18 05:30 WBC RBC Hgb Hct MCV MCH MCHC RDW RDW Differential Plt Count MPV Immature Gran % (Auto) Neut % (Auto) Lymph % (Auto) [place] % (Auto) Eos % (Auto) Baso % (Auto) Absolute Neuts (auto) Absolute Lymphs (auto) Total Counted PT INR Sodium Potassium Chloride Carbon Dioxide Anion Gap BUN Creatinine Estim Creat Clear Calc Est GFR (MDRD) Af Amer Est GFR (MDRD) Non-Af BUN/Creatinine Ratio Glucose Calcium Total Bilirubin AST ALT Alkaline Phosphatase Total Protein Albumin Globulin Albumin/Globulin Ratio Vit D 1,25-Dihydroxy Pending POC Glucose 02/25/18 07:31 POC Glucose 108 Assessment/Plan All Active Problems (Last Reviewed 02/25/18 @ 11:58 by Viviane Aranda PA-C) Acute osteomyelitis involving ankle and foot (Acute) Open left ankle fracture (Acute) Anemia (Acute) Decubitus ulcer of right heel, stage 3 (Acute) Infected decubitus ulcer (Acute) Blister (nonthermal), right great toe, initial encounter (Acute) Non-pressure chronic ulcer of right heel and midfoot with fat layer exposed (Acute) Non-pressure chronic ulcer of left heel and midfoot with fat layer exposed (Resolved) Diabetic foot ulcer associated with type 2 diabetes mellitus (Acute) Struck statnry object w/o fall (Acute) Non-pressure chronic ulcer of other part of right foot with fat layer exposed (Acute) Non-pressure chronic ulcer of other part of right foot with necrosis of bone (Acute) Visual disturbance (Acute) Gangrene of toe of right foot (Acute) Tobacco abuse counseling (Acute) 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 I believe that proceeding with a esophagogastroduodenoscopy and colonoscopy tomorrow under monitored anesthesia care with a bowel prep provided in a controlled setting would be the best opportunity to evaluate the patient's situation. She continues to describe ongoing need for blood transfusion with a source of blood loss as yet not identified. Pending the results of the endoscopy she might benefit from a small bowel follow-through. She might need future camera endoscopy of the small bowel. She is aware of the technique, benefits, risks, alternatives. She is at higher risk. I would anticipate utilizing an adult colonoscope. I will request monitored anesthesia care. Shimon Ty M.D., F.A.C.S. <Viviane Aranda - Last Filed: 02/25/18 12:10> Problem List (1) Anemia Status: Acute Reason for Consult Date of Consultation: 02/25/18 Reason for Consultation: Anemia. Positive occult blood test. History of Present Illness: The patient is a 58 year old F who had fallen in her bathroom in early October and had a compound fracture of the left distal tibia. Patient had initial surgery at [facility] which was complicated by an infected hardware which had to be removed. 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 She noted being discharged to a skilled nursing in [place] which then she developed C Diff and had fallen again at the skilled nursing. Patient was transferred back up to [place]. Where she was treated for the C Diff. She had a colonoscopy at that time which per patient there was no source of bleeding identified. Patient notes since this whole process started she has had 15 units of blood approximately. Patient states she was discharged to home for 1 week where yet again she fell. Patient has had multiple surgeries for this specific break. She was taken to surgery more recently by Dr. Covington. Patient notes she was taking large amounts of OxyContin at [facility]. She notes currently she is taking Tylenol. Patient notes the narcotic pain medication had made her sick to her stomach. She notes intermittent melanotic stools. She notes recent intentional weight loss. She notes occasional bright red blood per rectum however she notes hemorrhoids. She denies abdominal pain. She notes a sister with Crohn's. She denies personal history of inflammatory bowel disease, colon cancer. She denies family history of colon cancer. She has been receiving IV antibiotics. She is [facility] with Dr. Covington. She notes having panic attacks. Patient currently has a gaytan secondary to being bed bound. She is non-weight bearing on the left lower extremity. She notes history of multiple orthopedic surgeries, right femoral stent placement by Dr. Robbins, total hysterectomy. Today her hgb has increased to 10.4 which is her highest. Her lowest Hgb was 6.7. She has had 1 unit of red blood cells since being admitted to TCU. She denies previous myocardial infarction, stroke or blood clot. Past Medical History Medical History: Medical History (Last Reviewed 02/25/18 @ 11:58 by Viviane Aranda PA-C) Arthritis (Chronic) M19.90 Hypertension (Chronic) I10 High cholesterol (Chronic) E78.00 Clostridium difficile infection B96.89 Gout M10.9 Heart disease I51.9 Inflammatory arthritis M19.90 Lupus L93.0 Rheumatoid arthritis M06.9 Diabetes E11.9 Allergies aspirin Allergy (Verified 02/24/18 10:24) Hives latex Allergy (Verified 02/24/18 10:24) Hives Penicillins Allergy (Verified 02/24/18 10:24) Hives naproxen [From Aleve] Adverse Reaction (Severe, Verified 02/24/18 10:24) Kidney disease Stage 3 Surgical History: Surgical History (Last Reviewed 02/25/18 @ 11:58 by Viviane Aranda PA-C) History of carpal tunnel release Z98.890 History of hysterectomy Z98.890, Z90.710 amputation of right pinke toe history of 2 back sugeries history of right femoral stent history of right shoulder surgery Surgical History: - - The patient has a history of lumbar disc surgery ?2. She is undergone total abdominal hysterectomy. She is undergone right carpal tunnel release. She has had right shoulder surgery. Patient is a Ab2, having had 2 abortions. 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 Lives: Alone Smoking Status: Former smoker Tobacco Use: Non-smoker Alcohol: Rare Drugs: None - *Family History Maternal Family History: Family History (Last Reviewed 02/25/18 @ 11:58 by Viviane Aranda PA-C) Mother Diabetes Hypertension CVA (cerebral vascular accident) Brother Alcoholism Sister Cancer Father Heart disease Respiratory disease History Items: - - Patient's mother at the age of 80 with a history of myocardial infarction, cerebrovascular accident, and polio Paternal Family History: Family History (Last Reviewed 02/25/18 @ 11:58 by Viviane Aranda PA-C) Mother Diabetes Hypertension CVA (cerebral vascular accident) Brother Alcoholism Sister Cancer Father Heart disease Respiratory disease History Items: - - The patient's father at the age of 64 with a history of lung cancer. Review of Systems Constitutional: Reports: Anorexia, Weight Change - intentional, Fatigue HEENT: Denies: Head Aches, Sinus Congestion, Sinus Drainage Cardiovascular: Denies: Chest Pain, Palpitations Respiratory: Denies: Cough, Shortness of breath at rest, Sputum production Gastrointestinal: Reports: Hematochezia, Melena. Denies: Abdominal Pain, Hematemesis, Nausea, Vomiting Genitourinary: Denies: Dysuria Musculoskeletal: Reports: Foot Pain Skin: Reports: Wounds - decubitus ulcer Neurological: Denies: Numbness, Tingling, Focal weakness Psychiatric: Reports: Anxiety Hematologic/ Lymphatic: Reports: Anemia, Easy Bruising, Easy Bleeding, Hx of blood transfusion - Physical Exam General: Alert, Oriented x3, Cooperative HEENT: Atraumatic, PERRLA, EOMI, Normocephalic Neck: Supple, No JVD, Negative Carotid Bruits Lungs: Clear to auscultation, Normal air movement Cardiovascular: Regular rate, No murmurs Abdomen: Bowel Sounds Present, Soft, Non Tender, Non-Distended, Obese Extremities: - - Left lower extremity with external fixation brace intact. No swelling or pitting edema noted Skin: Ulcer/ Wound - buttock Musculoskeletal: Tenderness Neurological: Neuro grossly intact Psych/Mental Status: Appropriate, Anxious Vital Signs Temp Pulse Resp BP Pulse Ox 98.2 F 77 20 H 159/77 H 98 02/24/18 16:00 02/24/18 16:00 02/24/18 16:00 02/24/18 16:00 02/24/18 16:00 Oxygen Flow Rate (L/min) 2 Oxygen Delivery Method Room Air Weight: 220 lb 3 oz Body Mass Index (BMI) 37.3 Intake and Output for Last 24 Hours 02/23/18 02/24/18 02/25/18 23:59 23:59 23:59 Intake Total 1070 / 1070 1920 / 1920 120 / 120 Output Total 4825 / 4825 2600 / 2600 650 / 650 Balance -3755 / -3755 -680 / -680 -530 / -530 Microbiology Past 72 Hours 02/23/18 20:15 Stool Occult Blood (KHARI) - Final Interface Orders Occult Blood Positive 02/16/18 14:00 Blood Culture - Final Blood Culture (Wb) - Pic No growth in 5 days. Laboratory Tests Past 24 Hrs 02/25/18 02/25/18 02/25/18 05:30 05:30 05:30 WBC 7.4 RBC 3.90 L Hgb 10.4 L Hct 33.2 L MCV 85.1 MCH 26.7 L MCHC 31.3 L RDW 16.3 H RDW Differential 50.2 H Plt Count 213 MPV 9.1 Immature Gran % (Auto) 0.400 Neut % (Auto) 56.0 Lymph % (Auto) 30.3 [place] % (Auto) 9.6 Eos % (Auto) 3.2 Baso % (Auto) 0.5 Absolute Neuts (auto) 4.1 Absolute Lymphs (auto) 2.24 Total Counted Not Reportable PT 15.6 H INR 1.2 Sodium 141 Potassium 4.0 Chloride 107 Carbon Dioxide 26.0 Anion Gap 8 BUN 52 H Creatinine 1.40 H Estim Creat Clear Calc 40.00 Est GFR (MDRD) Af Amer 49 L Est GFR (MDRD) Non-Af 41 L BUN/Creatinine Ratio 37.1 H Glucose 104 Calcium 9.1 Total Bilirubin 0.40 AST 26 ALT 28 Alkaline Phosphatase 137 H Total Protein 7.3 Albumin 2.2 L Globulin 5.1 H Albumin/Globulin Ratio 0.4 L Vit D 1,25-Dihydroxy 02/25/18 05:30 WBC RBC Hgb Hct MCV MCH MCHC RDW RDW Differential Plt Count MPV Immature Gran % (Auto) Neut % (Auto) Lymph % (Auto) [place] % (Auto) Eos % (Auto) Baso % (Auto) Absolute Neuts (auto) Absolute Lymphs (auto) Total Counted PT INR Sodium Potassium Chloride Carbon Dioxide Anion Gap BUN Creatinine Estim Creat Clear Calc Est GFR (MDRD) Af Amer Est GFR (MDRD) Non-Af BUN/Creatinine Ratio Glucose Calcium Total Bilirubin AST ALT Alkaline Phosphatase Total Protein Albumin Globulin Albumin/Globulin Ratio Vit D 1,25-Dihydroxy Pending POC Glucose 02/25/18 07:31 POC Glucose 108 Assessment/Plan I have been consulted in conjunction with Dr. Ty. He will independently evaluate this patient. Impression: Anemia. Heme positive stools. Melena. Recent hx of left lower extremity compound fracture. Plan: Patient was discussed with Dr. Ty. Dr. Ty will plan to perform an upper and lower endoscopy with possible biopsies tomorrow under MAC. Procedure details, risks and benefits have been explained to the patient. Patient has had the opportunity to ask and have questions answered Patient verbally understands and agrees with the plan. Will plan for Golyt[place] for bowel prep. Clear liquids all day today. NPO after midnight tonight. Of note, patient has been refusing daily Protonix for her last 3 doses. Thank you for allowing us to participate in this patient's care. My recommendations will be available via electronic medical records. Code Visit Office Visits / Consults: [id number] IP Consult L3
--- NOTE | 2018-02-25 10:10 | NURSING ---
Dr. Ty in to see patient, NO for clear liquid diet today and start NPO status at midnight, alden bowel prep for scope, patient aware.
[2018-02-25] MEDS: 0.9% NaCl PICC Flush IV ×2 (11:05→22:13)
--- NOTE | 2018-02-25 14:16 | PN.ID_ITS ---
Patient Problems: Active and Suspected Problems (Last Reviewed 02/25/18 @ 11:58 by Viviane Aranda PA-C) Open left ankle fracture (Acute) Anemia (Acute) Subjective: Feeling ok, scope and surgery planned for tomorrow. No fever. - Physical Exam General: Alert, Cooperative, No apparent distress Lungs: Clear to auscultation, Normal air movement Cardiovascular: Regular rate, Regular Rhythm Abdomen: Soft, Non Tender, Non-Distended Skin: Ulcer/ Wound - wrapped Vital Signs Temp Pulse Resp BP Pulse Ox 98.2 F 77 20 H 159/77 H 98 02/24/18 16:00 02/24/18 16:00 02/24/18 16:00 02/24/18 16:00 02/24/18 16:00 Oxygen Flow Rate (L/min) 2 Oxygen Delivery Method Room Air Weight: 99.875 kg Body Mass Index (BMI) 37.3 Intake and Output for Last 24 Hours 02/23/18 02/24/18 02/25/18 23:59 23:59 23:59 Intake Total 1070 / 1070 1920 / 1920 120 / 120 Output Total 4825 / 4825 2600 / 2600 650 / 650 Balance -3755 / -3755 -680 / -680 -530 / -530 Microbiology Past 72 Hours 02/23/18 20:15 Stool Occult Blood (KHARI) - Final Interface Orders Occult Blood Positive Laboratory Tests Past 24 Hrs 02/25/18 02/25/18 02/25/18 05:30 05:30 05:30 WBC 7.4 RBC 3.90 L Hgb 10.4 L Hct 33.2 L MCV 85.1 MCH 26.7 L MCHC 31.3 L RDW 16.3 H RDW Differential 50.2 H Plt Count 213 MPV 9.1 Immature Gran % (Auto) 0.400 Neut % (Auto) 56.0 Lymph % (Auto) 30.3 [place] % (Auto) 9.6 Eos % (Auto) 3.2 Baso % (Auto) 0.5 Absolute Neuts (auto) 4.1 Absolute Lymphs (auto) 2.24 Total Counted Not Reportable PT 15.6 H INR 1.2 Sodium 141 Potassium 4.0 Chloride 107 Carbon Dioxide 26.0 Anion Gap 8 BUN 52 H Creatinine 1.40 H Estim Creat Clear Calc 40.00 Est GFR (MDRD) Af Amer 49 L Est GFR (MDRD) Non-Af 41 L BUN/Creatinine Ratio 37.1 H Glucose 104 Calcium 9.1 Total Bilirubin 0.40 AST 26 ALT 28 Alkaline Phosphatase 137 H Total Protein 7.3 Albumin 2.2 L Globulin 5.1 H Albumin/Globulin Ratio 0.4 L Vit D 1,25-Dihydroxy 02/25/18 05:30 WBC RBC Hgb Hct MCV MCH MCHC RDW RDW Differential Plt Count MPV Immature Gran % (Auto) Neut % (Auto) Lymph % (Auto) [place] % (Auto) Eos % (Auto) Baso % (Auto) Absolute Neuts (auto) Absolute Lymphs (auto) Total Counted PT INR Sodium Potassium Chloride Carbon Dioxide Anion Gap BUN Creatinine Estim Creat Clear Calc Est GFR (MDRD) Af Amer Est GFR (MDRD) Non-Af BUN/Creatinine Ratio Glucose Calcium Total Bilirubin AST ALT Alkaline Phosphatase Total Protein Albumin Globulin Albumin/Globulin Ratio Vit D 1,25-Dihydroxy Pending POC Glucose 02/25/18 07:31 POC Glucose 108 Medical Necessity - Tobacco Use Smoking Status: Former smoker Tobacco Use: Non-smoker Route of nutrition/ use of supplements: [] Nutritional Intake: [] IV Site: [] Gardner Catheter: [] - Assessment/Plan Antibiotics: [] Assessment/Plan: [] Active and Suspected Problems (Last Reviewed 01/21/18 @ 12:13 by Arslan Robbins MD) Open left ankle fracture (Acute) Anemia (Acute) 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 No sign of endocarditis on finger/toenails. No spine tenderness. Bcx from 01/16 is neg. TTE done, no need for YEIMY at this time. Taken to OR for debridement by Dr. Covington 01/20. BKA may be necessary. Continue vanc. Has nausea with PCN, tolerates cefazolin, amoxicillin with no issue. Narrowed meropenem to cefepime given past cx here and at [place] with Pseudomonas spp. Cr at baseline. Plan on at least 6 week course of iv abx and then indefinite course with po given infected hardware. Stop date for vanc/cefepime planned for 03/03/18. Weekly bmp, cbc, esr, and vanc trough while on iv abx. After finishing iv abx, plan will be for indefinite course of po doxy 100mg bid. Taken to OR 01/29 for hardware removal and external fixator placement. Bone cx from that surgery (+) for MRSA. Repeat surgery again on 01/05, again (+) for MRSA. Stop date will be pushed back based on need for ongoing debridement and ongoing infection. Developed some fever and chills with picc redness - sent bcx of picc and periphery. Pulled picc 02/16 and tip for cx. UA and Ucx neg so far. Bcx, tip cx, and drainage cx also neg. Taken back to OR 02/17, and then again planned for 02/26. Cr doing better now. Will follow.
--- NOTE | 2018-02-25 15:50 | CHAPLAIN ---
Type of Pastoral Visit ___ Initial Visit ___ Follow-up Visit ___ On-call Visit _x__ General Patient Visit ___ Spiritual Assessment ___ Family Conference ___ Bereavement ___ Rapid Response ___ Code Blue ___ Other (describe below) Pastoral Care Referral From _x__ Patient ___ Family ___ Nurse ___ Physician ___ Cake Icer ___ Director Digital Catalogue ___ Other (describe below) Sacrament/Intervention _x__ Active listening ___ Anointing ___ Congregation ___ Bereavement ___ Communion ___ Kaylie exploration ___ ___ Life review ___ Prayer ___ Reconciliation ___ Sacrament of Sick ___ Supportive presence ___ Wedding ___ Other (describe below) Pastoral Comments talked with the patient after the [employer] game in activity time; pt speaks of her surgery approaching tomorrow and how she is accepting that event; pt speaks of relief at having her health issues addressed;
[2018-02-25 16:00] VITALS: BP 142/83; PULSE 82; RESP 18; TEMP 36; O2SAT 98
[2018-02-25] MEDS: Electrolyte Solution/Peg's 4000 ML PO (17:46)
[2018-02-25] MEDS: Tamsulosin HCl 0.4 MG Capsule PO (21:01)
[2018-02-25] MEDS: Atorvastatin Calcium 40 MG Tablet PO (21:07)
[2018-02-25] MEDS: Amitriptyline 25 MG Tablet 50 MG PO (21:07)
[2018-02-25] MEDS: CHLORHEXIDINE GLUC 2% CLOTH 1 EACH TOWELETTE TOPICAL (22:41)
--- NOTE | 2018-02-25 23:50 | NURSING ---
Pt encouraged to drink bowel prep for EGD tomorrow throughout shift. Pt states I couldn't drink all that. Pt drank 700cc of bowel prep. Pt NPO at midnight.
[2018-02-26] MEDS: Sodium Chloride 0.65% 1 SPRAY SPRAY.BTL NASAL ×2 (04:06→22:01)
[2018-02-26] MEDS: dilTIAZem CD 180 MG Capsule PO (04:10)
[2018-02-26] MEDS: Pantoprazole Sodium 40 MG Tablet PO (04:10)
[2018-02-26] MEDS: Gabapentin 300 MG Capsule PO (04:10)
[2018-02-26 04:29] LABS: Erythrocyte Sedimentation Rate 89 mm/hr (0-30)
[2018-02-26 04:31] LABS: Absolute Lymphocyte Count 1.79 X10^3/ul (0.83-4.51); Basophil# 0.05 X10^3/uL; Basophil% 0.9 % (0-1); Eosinophil# 0.22 X10^3/uL; Eosinophils% 3.9 % (0-5); Hematocrit 32.6 % (37-47); Hemoglobin 10.4 g/dl (12.0-15.0); Lymphocyte # 1.79 X10^3/ul (4.0); Lymphocyte % 31.3 % (19-41); Mean Corp Hgb Conc 31.9 g/gl (32-36); Mean Corpuscular Hgb 27.7 pg (27.0-32.0); Mean Corpuscular Volume 86.7 fL (81-99); Mean Platelet Vol. 9.3 fl (6.2-12.0); Monocyte# 0.66 X10^3/uL; Monocyte% 11.6 % (0-10); Neutrophil # 2.96 X10^3/uL (2.7-7.7); Neutrophil % 51.8 % (47-70); Platelet Count 203 K/mm3 (150-450); RBC Distribution Width SD 49.1 fl (35.1-43.9); Red Blood Count 3.76 M/mm3 (4.2-5.4); White Blood Count 5.7 K/mm3 (4.4-11.0)
[2018-02-26 04:32] LABS: POSITIVE COUNT NO; POSITIVE DIFFERENTIAL NO; POSITIVE MORPHOLOGY NO
[2018-02-26 04:44] LABS: BUN 50 mg/dL (7-18); BUN/Creat Ratio 35.7 RATIO (10-20); EST Glomerular Filtration Rate 41 mL/min (>60); Est Glom Filt Rate - Afr Amer 49 mL/min (>60); Glucose 95 mg/dL (74-106)
[2018-02-26 04:45] LABS: Anion Gap 7 (5-15); Calcium,Total 9.2 mg/dL (8.5-10.1); Chloride 109 mmol/L (98-107); Potassium 3.8 mmol/L (3.5-5.1); Sodium Level 143 mmol/L (136-145)
[2018-02-26] MEDS: CHLORHEXIDINE GLUC 2% CLOTH 1 EACH TOWELETTE TOPICAL (05:44)
--- NOTE | 2018-02-26 05:55 | NURSING ---
Pt off unit for surgery at this time.
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
[2018-02-26 07:01] LABS: Bedside Glucose 102 mg/dL (70-110)
[2018-02-26] MEDS: Glucerna Shake 120 ML LIQUID PO (17:17)
[2018-02-26] MEDS: Tamsulosin HCl 0.4 MG Capsule PO (17:18)
[2018-02-26] MEDS: Acetaminophen 500 MG Tablet 1000 MG PO (17:27)
[2018-02-26 21:40] LABS: Vancomycin, Trough Level 22.2 ug/mL (5.0-15.0)
[2018-02-26] MEDS: 0.9% NaCl PICC Flush IV (21:53)
[2018-02-26] MEDS: Atorvastatin Calcium 40 MG Tablet PO (22:08)
[2018-02-26] MEDS: Amitriptyline 25 MG Tablet 50 MG PO (22:08)
[2018-02-26] MEDS: Nystatin Powder 15gm Bottle 1 APPLIC TOPICAL (22:11)
--- NOTE | 2018-02-26 22:29 | PCM.RX.CS ---
Consult Pharmacy has been consulted to manage selected antiobiotic: Vancomycin Type of Consult: Follow-up Suspected Infection: Osteomyelitis Prior Doses of Antibiotics Received/Current Regimen: Medications Discontinued Medications Vancomycin HCl 1,250 mg/ (Sodium Chloride) 275 mls @ 167 mls/hr IV Q36H [facility] Stop: 03/12/18 10:39 Last Admin: 02/26/18 21:46 Dose: Not Given Labs: Sodium 143 mmol/L (136-145) 02/26/18 04:05 Potassium 3.8 mmol/L (3.5-5.1) 02/26/18 04:05 Chloride 109 mmol/L (98-107) H 02/26/18 04:05 Carbon Dioxide 27.0 mmol/L (21.0-32.0) 02/26/18 04:05 Anion Gap 7 (5-15) 02/26/18 04:05 BUN 50 mg/dL (7-18) H 02/26/18 04:05 Creatinine 1.40 mg/dL (0.55-1.02) H 02/26/18 04:05 Est GFR (MDRD) Af Amer 49 mL/min (>60) L 02/26/18 04:05 Est GFR (MDRD) Non-Af 41 mL/min (>60) L 02/26/18 04:05 BUN/Creatinine Ratio 35.7 RATIO (10-20) H 02/26/18 04:05 Glucose 95 mg/dL (74-106) 02/26/18 04:05 Vancomycin Trough 22.2 ug/mL (5.0-15.0) H 02/26/18 20:39 Random Vancomycin 13.5 ug/mL (0.0-15.0) 02/22/18 06:00 Microbiology: Microbiology 02/23/18 20:15 Interface Orders Stool Occult Blood (KHARI) - Final Occult Blood Positive 02/16/18 14:00 Blood Culture (Wb) - Pic Blood Culture - Final No growth in 5 days. 02/16/18 12:15 Blood Culture (Wb) - Anticubital Left Blood Culture - Final No growth in 5 days. 02/16/18 14:00 Fluid - Other Gram Stain - Final 02/16/18 14:00 Fluid - Other Body Fluid Culture - Final No growth aerobically. 02/16/18 14:00 Fluid - Other Anaerobic Culture - Final No growth in 5 days. 02/17/18 11:00 Urine, Catheterized Urine Culture - Final Culture exhibits no growth. 02/16/18 14:00 Catheter tip - Iv Cath Tip Gram Stain - Final 02/16/18 14:00 Catheter tip - Iv Cath Tip Wound Culture - Final Staphylococcus epidermidis 02/05/18 21:35 Urine Catheter - Gardner Urine Culture - Final Culture exhibits no growth. Weight used for dosin.8 kg Estimated Creatinine Clearance: 40 Goal Trough: 15-20 mcg/mL Pharmacy Plan for Drug Dosing: Trough level was high (22.2), so held the scheduled 02/26/18 dose. Will re-draw a random trough level 02/27/18 @2100 and re-evaluate dosing at that point. Pharmacy Service will continue to monitor and adjust dosing as required. Follow-Up Labs: Trough Vancomycin - random Labs to be done on [date and time ordered]: 02/27/18 @2100
--- NOTE | 2018-02-26 22:34 | NURSING ---
Pt requesting Ultram back. Dr. Elizondo updated. Order entered and order to restart Lovenox.
[2018-02-27] MEDS: Acetaminophen 500 MG Tablet 1000 MG PO ×3 (01:09→16:22)
[2018-02-27] MEDS: traMADol 50 MG Tablet PO ×3 (01:10→22:30)
--- NOTE | 2018-02-27 01:11 | NURSING ---
Pt requesting pain medication. Ultram offered, pt accepted. Pt notified Ultram can alter pt's metal status, pt stated, I don't care. That is fine I am in a lot of pain. Pt' LLE elevated, ice applied. Will continue to monitor.
[2018-02-27] MEDS: 0.9% NaCl IVPB Med Flush (250 mL) 15 ML IV ×2 (02:40→10:52)
[2018-02-27] MEDS: dilTIAZem CD 180 MG Capsule PO (04:28)
[2018-02-27] MEDS: Pantoprazole Sodium 40 MG Tablet PO (04:29)
[2018-02-27] MEDS: Gabapentin 300 MG Capsule PO ×3 (04:29→22:19)
[2018-02-27] MEDS: Sodium Chloride 0.65% 1 SPRAY SPRAY.BTL NASAL (04:30)
[2018-02-27] MEDS: Enoxaparin 30 MG/0.3 ML Syringe SC (04:32)
--- NOTE | 2018-02-27 06:12 | PCM.PN.BLA ---
Progress Note Plan for EGD/colonoscopy on Friday Will start bowel prep on Friday and re-assess pt on Friday.
[2018-02-27 06:55] LABS: Bedside Glucose 95 mg/dL (70-110)
[2018-02-27] MEDS: Glucerna Shake 120 ML LIQUID PO ×3 (08:47→16:23)
[2018-02-27] MEDS: Iron Polysaccharide Complex 150 MG CAPSULE PO (08:47)
[2018-02-27] MEDS: 0.9% NaCl PICC Flush IV (10:02)
--- NOTE | 2018-02-27 11:51 | NURSING ---
Addendum entered by Katina Whyte 02/27/18 11:53: correction: LT leg and LT foot, not right as stated below. Original Note: pt tired of laying in bed, offered to assist pt to recliner chair so leg can be elevated. Pt agreeable. pt resting in recliner chair, rt leg elevated and secured in place with rolled up blankets to each side of rt foot and pillow under leg to prevent internal and external rotation. call [facility] and clinict in reach. eating lunch.
--- NOTE | 2018-02-27 13:02 | PN.ID_ITS ---
Patient Problems: Active and Suspected Problems (Last Reviewed 02/25/18 @ 11:58 by Viviane Aranda PA-C) Open left ankle fracture (Acute) Anemia (Acute) Subjective: Foot sore. Still a little groggy since OR last night. No fever. - Physical Exam General: Alert, Cooperative, No apparent distress Lungs: Clear to auscultation, Normal air movement Cardiovascular: Regular rate, Regular Rhythm Abdomen: Soft, Non Tender, Non-Distended Skin: Ulcer/ Wound - L foot external fixator Vital Signs Temp Pulse Resp BP Pulse Ox 96.8 F L 82 18 142/83 H 98 02/25/18 16:00 02/25/18 16:00 02/25/18 16:00 02/25/18 16:00 02/25/18 16:00 Oxygen Flow Rate (L/min) 2 Oxygen Delivery Method Room Air Weight: 99.875 kg Body Mass Index (BMI) 37.3 Intake and Output for Last 24 Hours 02/25/18 02/26/18 02/27/18 23:59 23:59 23:59 Intake Total 120 / 120 420 / 420 1228 / 1228 Output Total 2100 / 2100 2800 / 2800 1850 / 1850 Balance -1980 / -1980 -2380 / -2380 -622 / -622 Laboratory Tests Past 24 Hrs 02/26/18 20:39 Vancomycin Trough 22.2 H POC Glucose 02/27/18 06:49 POC Glucose 95 Medical Necessity - Tobacco Use Smoking Status: Former smoker Tobacco Use: Non-smoker Route of nutrition/ use of supplements: [] Nutritional Intake: [] IV Site: [] Gardner Catheter: [] - Assessment/Plan Antibiotics: [] Assessment/Plan: [] Active and Suspected Problems (Last Reviewed 01/21/18 @ 12:13 by Arslan Robbins MD) Open left ankle fracture (Acute) Anemia (Acute) 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 No sign of endocarditis on finger/toenails. No spine tenderness. Bcx from 01/16 is neg. TTE done, no need for YEIMY at this time. Taken to OR for debridement by Dr. Covington 01/20. BKA may be necessary. Continue vanc. Has nausea with PCN, tolerates cefazolin, amoxicillin with no issue. Narrowed meropenem to cefepime given past cx here and at [place] with Pseudomonas spp. Cr at baseline. Plan on at least 6 week course of iv abx and then indefinite course with po given infected hardware. Stop date for vanc/cefepime planned for 03/03/18. Weekly bmp, cbc, esr, and vanc trough while on iv abx. After finishing iv abx, plan will be for indefinite course of po doxy 100mg bid. Taken to OR 01/29 for hardware removal and external fixator placement. Bone cx from that surgery (+) for MRSA. Repeat surgery again on 01/05, again (+) for MRS A. Stop date will be pushed back based on need for ongoing debridement and ongoing infection. Developed some fever and chills with picc redness - sent bcx of picc and periphery. Pulled picc 02/16 and tip for cx. UA and Ucx neg so far. Bcx, tip cx, and drainage cx also neg. Taken back to OR 02/17, and again planned for 02/26. Cr doing better now. Surg cx from 02/26 pending. Will follow.
[2018-02-27 14:09] LABS: Vitamin D 1,25-Dihydroxy 7.9 pg/mL (19.9-79.3)
--- NOTE | 2018-02-27 14:20 | NURSING ---
R; UPDATED ON NEW ORDER FOR FLEXERIL TID PER HER REQUEST. AGREEABLE AND TAKEN AT THIS TIME.
[2018-02-27 15:33] VITALS: BP 135/84; PULSE 104; RESP 22; TEMP 36.9; O2SAT 98
[2018-02-27] MEDS: Tamsulosin HCl 0.4 MG Capsule PO (16:23)
[2018-02-27] MEDS: Amitriptyline 25 MG Tablet 50 MG PO (22:19)
[2018-02-27] MEDS: Atorvastatin Calcium 40 MG Tablet PO (22:19)
[2018-02-27] MEDS: MELATONIN 10 MG TABLET PO (22:20)
[2018-02-27 22:52] LABS: Vancomycin, Random Level 15.8 ug/mL (0.0-15.0)
--- NOTE | 2018-02-27 23:00 | NURSING ---
pt c/o left left leg hurting and the ultram was not helping w the pain, call placed to dr. moe and oxyir order obtained.
[2018-02-27] MEDS: oxyCODONE 5 MG Tablet PO (23:19)
[2018-02-28] MEDS: Acetaminophen 500 MG Tablet 1000 MG PO (05:23)
[2018-02-28] MEDS: Pantoprazole Sodium 40 MG Tablet PO (05:30)
[2018-02-28] MEDS: Gabapentin 300 MG Capsule PO ×3 (05:31→22:10)
[2018-02-28] MEDS: Enoxaparin 30 MG/0.3 ML Syringe SC (05:36)
[2018-02-28] MEDS: dilTIAZem CD 180 MG Capsule PO (05:42)
[2018-02-28 05:44] VITALS: BP 159/83; PULSE 84; RESP 16; O2SAT 96
[2018-02-28] MEDS: Glucerna Shake 120 ML LIQUID PO ×3 (09:36→16:46)
[2018-02-28] MEDS: Iron Polysaccharide Complex 150 MG CAPSULE PO (09:40)
[2018-02-28] MEDS: traMADol 50 MG Tablet PO (11:17)
[2018-02-28] MEDS: oxyCODONE 5 MG Tablet PO ×2 (14:52→20:07)
[2018-02-28 16:00] VITALS: BP 146/67; PULSE 92; RESP 16; TEMP 36.8; O2SAT 96
[2018-02-28] MEDS: Tamsulosin HCl 0.4 MG Capsule PO (16:43)
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
--- NOTE | 2018-02-28 19:36 | NURSING ---
Dr. Covington in to see patient today, NNO.
[2018-02-28] MEDS: Amitriptyline 25 MG Tablet 50 MG PO (22:09)
[2018-02-28] MEDS: Atorvastatin Calcium 40 MG Tablet PO (22:10)
[2018-02-28] MEDS: MELATONIN 10 MG TABLET PO (22:10)
[2018-02-28] MEDS: 0.9% NaCl IVPB Med Flush (250 mL) 15 ML IV (22:16)
[2018-02-28] MEDS: 0.9% NaCl PICC Flush IV (22:16)
[2018-03-01] MEDS: Enoxaparin 30 MG/0.3 ML Syringe SC (06:07)
[2018-03-01] MEDS: dilTIAZem CD 180 MG Capsule PO (06:07)
[2018-03-01] MEDS: Pantoprazole Sodium 40 MG Tablet PO (06:08)
[2018-03-01] MEDS: Gabapentin 300 MG Capsule PO ×3 (06:08→21:31)
[2018-03-01] MEDS: Glucerna Shake 120 ML LIQUID PO ×3 (07:47→17:43)
[2018-03-01] MEDS: Iron Polysaccharide Complex 150 MG CAPSULE PO (07:48)
[2018-03-01] MEDS: oxyCODONE 5 MG Tablet PO ×3 (07:53→23:37)
[2018-03-01 07:56] LABS: Bedside Glucose 99 mg/dL (70-110)
--- NOTE | 2018-03-01 10:55 | NURSING ---
pt voided around 10am this am and scanned for 0, no complaints of pain or discomfort
[2018-03-01] MEDS: 0.9% NaCl PICC Flush IV ×3 (11:39→22:33)
--- NOTE | 2018-03-01 13:27 | NURSING ---
Patient has c/o burning and discomfort r/t gaytan catheter. Requesting it be d/c'd. Gaytan removed, 10mL removed from ballon, gaytan removed, balloon intact. Patient tolerated well. Patient urinating without difficulty. Bladder scan showing no residual after urinating.
[2018-03-01] MEDS: Tamsulosin HCl 0.4 MG Capsule PO (15:54)
[2018-03-01 16:00] VITALS: BP 141/80; PULSE 99; RESP 16; TEMP 37.3; O2SAT 99
[2018-03-01 17:28] VITALS: PULSE 96; RESP 16
[2018-03-01] MEDS: 0.9% NaCl IVPB Med Flush (250 mL) 15 ML IV (20:07)
[2018-03-01] MEDS: Atorvastatin Calcium 40 MG Tablet PO (21:30)
[2018-03-01] MEDS: Amitriptyline 25 MG Tablet 50 MG PO (21:30)
[2018-03-01] MEDS: MELATONIN 10 MG TABLET PO (21:30)
--- NOTE | 2018-03-02 04:45 | NURSING ---
Pt bladder scanned at this time for 41cc. Void at 0400. Denies discomfort or difficulty urinating. Will continue to monitor.
[2018-03-02] MEDS: dilTIAZem CD 180 MG Capsule PO (06:41)
[2018-03-02] MEDS: Enoxaparin 30 MG/0.3 ML Syringe SC (06:41)
[2018-03-02] MEDS: Pantoprazole Sodium 40 MG Tablet PO (06:42)
[2018-03-02] MEDS: Gabapentin 300 MG Capsule PO ×3 (06:42→21:54)
[2018-03-02 06:46] LABS: Bedside Glucose 109 mg/dL (70-110)
[2018-03-02] MEDS: Iron Polysaccharide Complex 150 MG CAPSULE PO (07:48)
[2018-03-02] MEDS: Glucerna Shake 120 ML LIQUID PO (07:48)
--- NOTE | 2018-03-02 09:45 | PCM.PN.BLA ---
Progress Note Patient evaluated sitting on the side of the bed. She is recovering very well from recent ortho surgery. We will attempt a 2 day bowel prep with Golytely. Patient is scheduled for upper/lower scope on Friday. Code Visit Inpatient E&M: 49210 Subs Hosp L1
--- NOTE | 2018-03-02 09:48 | PN_ITS ---
Progress Note Patient evaluated sitting on the side of the bed. She is recovering very well from recent ortho surgery. We will attempt a 2 day bowel prep with Golytely. Patient is scheduled for upper/lower scope on Friday. Code Visit Inpatient E&M: 66019 Subs Hosp L1
[2018-03-02] MEDS: 0.9% NaCl PICC Flush IV ×2 (10:25→21:50)
--- NOTE | 2018-03-02 10:59 | NURSING ---
Bladder scanned for 0ml at this time. Denies any pain or pressure or urge to void at this time. Will continue to monitor.
[2018-03-02] MEDS: oxyCODONE 5 MG Tablet PO ×2 (11:04→21:57)
[2018-03-02] MEDS: Electrolyte Solution/Peg's 4000 ML 2000 ML PO (12:38)
[2018-03-02] MEDS: Acetaminophen 500 MG Tablet 1000 MG PO (13:21)
[2018-03-02] MEDS: Polyethylene Glycol 3350 17 GM PACKET PO (13:24)
--- NOTE | 2018-03-02 14:23 | MDS.RN ---
Addendum entered by [facility] Survey 2 04/03/18 08:03: Original Note: Information for the mds was obtained from review of the clinical record, interview of resident, staff, and direct observation of resident's care.
[2018-03-02 15:53] VITALS: BP 145/80; PULSE 74; RESP 14; TEMP 36.8; O2SAT 94
[2018-03-02] MEDS: Tamsulosin HCl 0.4 MG Capsule PO (17:44)
--- NOTE | 2018-03-02 18:08 | NURSING ---
Bladder scanned at this time for 0 ml of urine. Resident was just up to [facility] to urinate and have large BM. Taking clear liquids at this time.
--- NOTE | 2018-03-02 21:31 | PCA ---
Sarina patient expressed frustration about upcoming scope she is having on Friday. Patient expressed she feels like she is never going to go home and that she is going to fall behind on her bills because she is here. Patient is worried because she is having difficulty getting family members to bring her mails so she can keep on her payments. 1x1 time spent with patient listening to her concerns. Told patient I would let the social science research assistant know she would like to discuss plans for making her home ready for her when she is discharged. Patient in a better mood at the end of our conversation.
[2018-03-02] MEDS: 0.9% NaCl IVPB Med Flush (250 mL) 15 ML IV (21:44)
[2018-03-02] MEDS: Amitriptyline 25 MG Tablet 50 MG PO (21:51)
[2018-03-02] MEDS: Atorvastatin Calcium 40 MG Tablet PO (21:53)
[2018-03-03] MEDS: dilTIAZem CD 180 MG Capsule PO (06:11)
[2018-03-03] MEDS: Enoxaparin 30 MG/0.3 ML Syringe SC (06:12)
[2018-03-03] MEDS: Gabapentin 300 MG Capsule PO ×3 (06:13→21:21)
[2018-03-03] MEDS: Pantoprazole Sodium 40 MG Tablet PO (06:13)
[2018-03-03 06:46] LABS: Bedside Glucose 103 mg/dL (70-110)
[2018-03-03] MEDS: 0.9% NaCl PICC Flush IV ×3 (08:04→21:10)
[2018-03-03] MEDS: Iron Polysaccharide Complex 150 MG CAPSULE PO (08:06)
[2018-03-03 08:11] LABS: Vancomycin, Trough Level 18.9 ug/mL (5.0-15.0)
[2018-03-03] MEDS: Electrolyte Solution/Peg's 4000 ML 2000 ML PO (10:09)
[2018-03-03] MEDS: oxyCODONE 5 MG Tablet PO ×2 (10:20→14:19)
[2018-03-03] MEDS: Acetaminophen 500 MG Tablet 1000 MG PO ×2 (10:20→16:53)
[2018-03-03] MEDS: 0.9% NaCl IVPB Med Flush (250 mL) 15 ML IV ×2 (10:21→21:11)
[2018-03-03] MEDS: Bisacodyl 5 MG Tablet 40 MG PO (12:18)
--- NOTE | 2018-03-03 12:23 | NURSING ---
PVR 0cc AT THIS TIME. WILL CONTINUE TO MONITOR.
--- NOTE | 2018-03-03 13:16 | NURSING ---
CALLED YANIRA DAY TO VERIFY MIRALAX ORDER FOR BOWEL PREP. STATED SINCE NULYTLEY WAS ORDERED THERE IS NO NEED FOR THE MIRALAX THAT WAS TO BE GIVEN IN [facility]. MAY D/C MIRALAX FOR BOWEL PREP.
--- NOTE | 2018-03-03 15:27 | PCM.RX.CS ---
Consult Pharmacy has been consulted to manage selected antiobiotic: Vancomycin Type of Consult: Follow-up Suspected Infection: Sepsis Prior Doses of Antibiotics Received/Current Regimen: Vancomycin 1250mg IV q36h x3 doses Labs: Sodium 143 mmol/L (136-145) 02/26/18 04:05 Potassium 3.8 mmol/L (3.5-5.1) 02/26/18 04:05 Chloride 109 mmol/L (98-107) H 02/26/18 04:05 Carbon Dioxide 27.0 mmol/L (21.0-32.0) 02/26/18 04:05 Anion Gap 7 (5-15) 02/26/18 04:05 BUN 50 mg/dL (7-18) H 02/26/18 04:05 Creatinine 1.40 mg/dL (0.55-1.02) H 02/26/18 04:05 Est GFR (MDRD) Af Amer 49 mL/min (>60) L 02/26/18 04:05 Est GFR (MDRD) Non-Af 41 mL/min (>60) L 02/26/18 04:05 BUN/Creatinine Ratio 35.7 RATIO (10-20) H 02/26/18 04:05 Glucose 95 mg/dL (74-106) 02/26/18 04:05 Vancomycin Trough 18.9 ug/mL (5.0-15.0) H 03/03/18 07:15 Random Vancomycin 15.8 ug/mL (0.0-15.0) H 02/27/18 21:15 Microbiology: Microbiology 02/23/18 20:15 Interface Orders Stool Occult Blood (KHARI) - Final Occult Blood Positive 02/16/18 14:00 Blood Culture (Wb) - Pic Blood Culture - Final No growth in 5 days. 02/16/18 12:15 Blood Culture (Wb) - Anticubital Left Blood Culture - Final No growth in 5 days. 02/16/18 14:00 Fluid - Other Gram Stain - Final 02/16/18 14:00 Fluid - Other Body Fluid Culture - Final No growth aerobically. 02/16/18 14:00 Fluid - Other Anaerobic Culture - Final No growth in 5 days. 02/17/18 11:00 Urine, Catheterized Urine Culture - Final Culture exhibits no growth. 02/16/18 14:00 Catheter tip - Iv Cath Tip Gram Stain - Final 02/16/18 14:00 Catheter tip - Iv Cath Tip Wound Culture - Final Staphylococcus epidermidis 02/05/18 21:35 Urine Catheter - Gardner Urine Culture - Final Culture exhibits no growth. Goal Trough: 15-20 mcg/mL Pharmacy Plan for Drug Dosing: Recent trough level was 18.9. Recommend keeping same dose of Vancomycin 1250mg IV q36h and drawing another trough before the 3rd dose Pharmacy Service will continue to monitor and adjust dosing as required. Follow-Up Labs: Trough Vancomycin Labs to be done on [date and time ordered]: trough level 03/07/18 at 1930
[2018-03-03 16:00] VITALS: BP 171/84; PULSE 98; RESP 20; TEMP 36.7; O2SAT 98
[2018-03-03] MEDS: Tamsulosin HCl 0.4 MG Capsule PO (16:50)
[2018-03-03] MEDS: traMADol 50 MG Tablet PO (16:53)
--- NOTE | 2018-03-03 16:55 | NURSING ---
NULYTELY GIVEN AT 1000. R' FINISHED AT THIS TIME AFTER MUCH ENCOURAGEMENT T/O THE DAY. WILL ADMINISTER MIRALAX PER ORDER. ALL MIRALAX HAS BEEN BEEN MIXED IN [facility] BUT HALF IS DUE AT THIS TIME.
[2018-03-03] MEDS: Polyethylene Glycol 3350 17 GM PACKET 136 GM PO (17:01)
[2018-03-03] MEDS: Amitriptyline 25 MG Tablet 50 MG PO (21:21)
[2018-03-03] MEDS: Atorvastatin Calcium 40 MG Tablet PO (21:21)
[2018-03-04] MEDS: traMADol 50 MG Tablet PO ×2 (00:41→17:46)
[2018-03-04] MEDS: Acetaminophen 500 MG Tablet 1000 MG PO ×2 (00:41→17:46)
[2018-03-04 06:55] LABS: Bedside Glucose 87 mg/dL (70-110)
--- NOTE | 2018-03-04 07:22 | NURSING ---
Pt finished Miralax at this time. Stool clear with brown flakes.
--- NOTE | 2018-03-04 08:16 | MDS.RN ---
Information for the mds was obtained from review of the clinical record, interview of resident, staff, and direct observation of resident's care.
[2018-03-04] MEDS: Pantoprazole Sodium 40 MG Tablet PO (13:14)
[2018-03-04] MEDS: dilTIAZem CD 180 MG Capsule PO (13:14)
[2018-03-04] MEDS: Iron Polysaccharide Complex 150 MG CAPSULE PO (13:14)
[2018-03-04] MEDS: Enoxaparin 30 MG/0.3 ML Syringe SC (13:14)
[2018-03-04] MEDS: Gabapentin 300 MG Capsule PO ×2 (13:14→20:15)
[2018-03-04 16:00] VITALS: BP 162/91; PULSE 125; RESP 22; TEMP 37; O2SAT 99
[2018-03-04] MEDS: Glucerna Shake 120 ML LIQUID PO (16:37)
[2018-03-04] MEDS: Tamsulosin HCl 0.4 MG Capsule PO (16:38)
[2018-03-04] MEDS: oxyCODONE 5 MG Tablet PO (16:43)
[2018-03-04] MEDS: Atorvastatin Calcium 40 MG Tablet PO (20:15)
[2018-03-04] MEDS: Amitriptyline 25 MG Tablet 50 MG PO (20:15)
[2018-03-04] MEDS: Nystatin Powder 15gm Bottle 1 APPLIC TOPICAL (20:16)
[2018-03-05] MEDS: Acetaminophen 500 MG Tablet 1000 MG PO ×3 (02:08→21:37)
[2018-03-05] MEDS: traMADol 50 MG Tablet PO ×2 (02:08→21:38)
[2018-03-05] MEDS: Alteplase 2 MG/2 ML Vial IV (04:18)
[2018-03-05] MEDS: Pantoprazole Sodium 40 MG Tablet PO (04:26)
[2018-03-05] MEDS: Enoxaparin 30 MG/0.3 ML Syringe SC (04:26)
[2018-03-05] MEDS: dilTIAZem CD 180 MG Capsule PO (04:27)
[2018-03-05] MEDS: Gabapentin 300 MG Capsule PO ×3 (04:27→21:36)
[2018-03-05] MEDS: Fluconazole 100 MG Tablet PO (04:27)
[2018-03-05 05:50] LABS: Absolute Lymphocyte Count 1.61 X10^3/ul (0.83-4.51); Absolute Neutrophil Count 2.1 X10^3/uL (2.0-7.7); Basophil# 0.05 X10^3/uL; Eosinophil# 0.14 X10^3/uL; Eosinophils% 2.8 % (0-5); Hemoglobin 8.5 g/dl (12.0-15.0); Lymphocyte # 1.61 X10^3/ul (4.0); Lymphocyte % 32.3 % (19-41); Mean Corp Hgb Conc 31.5 g/gl (32-36); Mean Corpuscular Hgb 27.7 pg (27.0-32.0); Mean Corpuscular Volume 87.9 fL (81-99); Mean Platelet Vol. 9.9 fl (6.2-12.0); Monocyte# 1.12 X10^3/uL; Monocyte% 22.5 % (0-10); Neutrophil # 2.05 X10^3/uL (2.7-7.7); Neutrophil % 41.2 % (47-70); Platelet Count 173 K/mm3 (150-450); RBC Distribution Width CV 16.3 % (11.6-14.6); RBC Distribution Width SD 51.2 fl (35.1-43.9); Red Blood Count 3.07 M/mm3 (4.2-5.4)
[2018-03-05 05:51] LABS: POSITIVE COUNT NO; POSITIVE DIFFERENTIAL NO; POSITIVE MORPHOLOGY NO
[2018-03-05 05:52] LABS: Erythrocyte Sedimentation Rate 61 mm/hr (0-30)
[2018-03-05 05:53] LABS: Anion Gap 10 (5-15); BUN 57 mg/dL (7-18); BUN/Creat Ratio 34.3 RATIO (10-20); Calcium,Total 8.5 mg/dL (8.5-10.1); Chloride 110 mmol/L (98-107); Creatinine, Serum 1.66 mg/dL (0.55-1.02); EST Glomerular Filtration Rate 34 mL/min (>60); Est Glom Filt Rate - Afr Amer 41 mL/min (>60); Estimated Creatinine Clearance 33.74 ml/min; Glucose 130 mg/dL (74-106); Potassium 4.2 mmol/L (3.5-5.1); Sodium Level 142 mmol/L (136-145)
[2018-03-05 06:46] LABS: Bedside Glucose 131 mg/dL (70-110)
[2018-03-05] MEDS: oxyCODONE 5 MG Tablet PO (09:00)
[2018-03-05] MEDS: Iron Polysaccharide Complex 150 MG CAPSULE PO (09:00)
[2018-03-05] MEDS: Glucerna Shake 120 ML LIQUID PO ×3 (09:00→16:41)
[2018-03-05 16:00] VITALS: BP 178/83; PULSE 101; RESP 16; TEMP 36.4; O2SAT 95
[2018-03-05] MEDS: Tamsulosin HCl 0.4 MG Capsule PO (16:42)
--- NOTE | 2018-03-05 18:25 | NURSING ---
Dr. Atwood notified of increased bleeding through macario wrap to lower medial side of ankle, order for reinforce with abd and macario wrap and she will be in tomorrow to see pt.
[2018-03-05] MEDS: 0.9% NaCl PICC Flush IV (19:54)
[2018-03-05] MEDS: Atorvastatin Calcium 40 MG Tablet PO (21:36)
[2018-03-05] MEDS: Amitriptyline 25 MG Tablet 50 MG PO (21:36)
[2018-03-05] MEDS: Menthol/Lanolin/Calamine/Znox 113 GM Tube 1 APPLIC TOPICAL (21:38)
[2018-03-06] MEDS: Polyethylene Glycol 3350 17 GM PACKET PO (05:32)
[2018-03-06] MEDS: 0.9% NaCl PICC Flush IV (05:33)
[2018-03-06] MEDS: Fluconazole 100 MG Tablet PO (05:33)
[2018-03-06] MEDS: dilTIAZem CD 180 MG Capsule PO (05:33)
[2018-03-06] MEDS: Gabapentin 300 MG Capsule PO ×3 (05:33→21:53)
[2018-03-06] MEDS: Pantoprazole Sodium 40 MG Tablet PO (05:33)
[2018-03-06] MEDS: Enoxaparin 30 MG/0.3 ML Syringe SC (05:34)
[2018-03-06 06:16] LABS: Hematocrit 27.9 % (37-47); Hemoglobin 8.7 g/dl (12.0-15.0)
[2018-03-06 07:01] LABS: Bedside Glucose 129 mg/dL (70-110)
[2018-03-06] MEDS: Iron Polysaccharide Complex 150 MG CAPSULE PO (07:58)
[2018-03-06] MEDS: Glucerna Shake 120 ML LIQUID PO ×3 (07:58→17:28)
[2018-03-06] MEDS: traMADol 50 MG Tablet PO (08:02)
[2018-03-06] MEDS: Acetaminophen 500 MG Tablet 1000 MG PO (08:03)
[2018-03-06] MEDS: 0.9% NaCl IVPB Med Flush (250 mL) 15 ML IV (08:13)
[2018-03-06] MEDS: oxyCODONE 5 MG Tablet PO (13:05)
[2018-03-06 16:00] VITALS: BP 156/86; PULSE 96; RESP 20; TEMP 36.7; O2SAT 99
[2018-03-06] MEDS: Tamsulosin HCl 0.4 MG Capsule PO (17:30)
--- NOTE | 2018-03-06 19:45 | NURSING ---
Dr Covington in to see pt at this time.
--- NOTE | 2018-03-06 19:51 | RAD_ITS ---
STUDY: X-RAY - LEFT TIBIA AND FIBULA REASON FOR EXAM: Female, 58 years old. There is delayed with external fixator. May have reinjured leg. TECHNIQUE: 4 view(s) of the tibia and fibula were obtained. COMPARISON: Tibia-fibula, February 26, 2018 FINDINGS: There is markedly limited visualization of the ankle secondary to the overlying external fixator. Question lateral subluxation of the ankle. The tibia and fibula appear unchanged in appearance. No evidence of acute fracture. RAD/Tibia & Fibula 2 Views IMPRESSION: Certain numbering questionable lateral subluxation of the ankle. The remainder of the findings appear grossly unchanged. Electronically Signed: Indra Calhoun DO at 21:15 EST Tel [phone], Service support ,
--- NOTE | 2018-03-06 20:30 | RAD_ITS ---
STUDY: X-RAY - LEFT ANKLE REASON FOR EXAM: Female, 58 years old. Left ankle pain. Lifted leg with external fixator on a period may have reinjured leg. TECHNIQUE: 4 view(s) of the ankle. COMPARISON: Ankle, February 26, 2018. FINDINGS: Is limited visualization due to the surrounding external fixator. On the AP film there appears to be lateral subluxation of the talus in relationship to the tibia. This cannot be ascertained with complete certainty as positioning is not exactly when compared to the prior study. RAD/Ankle min 3 Views IMPRESSION: Questionable lateral subluxation of the ankle when compared to the prior exam. Electronically Signed: Indra Calhoun DO at 20:51 EST Tel [phone], Service support ,
[2018-03-06] MEDS: Amitriptyline 25 MG Tablet 50 MG PO (21:52)
[2018-03-06] MEDS: Atorvastatin Calcium 40 MG Tablet PO (21:53)
[2018-03-06] MEDS: MELATONIN 10 MG TABLET PO (21:53)
[2018-03-06 21:55] VITALS: PULSE 101; O2SAT 99
[2018-03-07] MEDS: oxyCODONE 5 MG Tablet PO ×3 (00:14→21:19)
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
[2018-03-07] MEDS: traMADol 50 MG Tablet PO ×3 (03:11→16:29)
--- NOTE | 2018-03-07 03:14 | NURSING ---
Addendum entered by Kathy Turk 03/07/18 04:10: In to pt's room for 0400 rounds. Noted that pt had tied ice pack around external fixator device; untied at this time and pt educated on importance of keeping halo device and pins free to keep them in place, keeping LLE elevated and bandage intact. Continue to monitor. Original Note: Pt c/o at this time of pain to Left [place] stating my bandage is too tight. Dr Covington in this earlier this evening and redressed LLE. Pt educated on importance of keeping bandage intact. Medicated with prn Ultram. Pt stating I can't promise you I won't rip this off. Again, pt educated on keeping dressing and MIGUEL wraps on. Ice pack applied to LLE. 1:1 given. Will continue to monitor.
[2018-03-07] MEDS: Enoxaparin 30 MG/0.3 ML Syringe SC (05:29)
[2018-03-07] MEDS: dilTIAZem CD 180 MG Capsule PO (05:29)
[2018-03-07] MEDS: Polyethylene Glycol 3350 17 GM PACKET PO (05:29)
[2018-03-07] MEDS: Fluconazole 100 MG Tablet PO (05:29)
[2018-03-07] MEDS: Gabapentin 300 MG Capsule PO ×3 (05:29→21:19)
[2018-03-07] MEDS: Pantoprazole Sodium 40 MG Tablet PO (05:29)
[2018-03-07] MEDS: 0.9% NaCl PICC Flush IV ×3 (05:32→21:18)
[2018-03-07 06:51] LABS: Bedside Glucose 135 mg/dL (70-110)
[2018-03-07] MEDS: Glucerna Shake 120 ML LIQUID PO ×3 (08:22→16:20)
[2018-03-07] MEDS: Iron Polysaccharide Complex 150 MG CAPSULE PO (08:23)
[2018-03-07] MEDS: Acetaminophen 500 MG Tablet 1000 MG PO ×2 (10:31→21:30)
--- NOTE | 2018-03-07 11:30 | NURSING ---
pt not maintaining WB status to LLE, When pt gets back in to bed, she flings her leg and grabs the fixator. hyperextension noted of knee when pt flings leg around in bed and up into bed or OOB. When assisting [place] back [place] [facility] [place] noted to have strikethrough bleeding at inner ankle, Dr Covington notified. New order to bedpan and pt to maintain bedrest for now. will try to have pt in surgery Friday evening. ABD applied and secured with soform gauze. pt also pointed out a nut laying on floor next to bed.
[2018-03-07 15:32] VITALS: BP 146/59; PULSE 87; RESP 20; TEMP 36.4; O2SAT 96
[2018-03-07] MEDS: Tamsulosin HCl 0.4 MG Capsule PO (16:21)
--- NOTE | 2018-03-07 18:52 | NURSING ---
Dr Covington here trying to adjust fixator until surgery.
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
[2018-03-07 20:55] VITALS: PULSE 98; O2SAT 95
[2018-03-07 21:15] LABS: Vancomycin, Trough Level 17.8 ug/mL (5.0-15.0)
[2018-03-07] MEDS: 0.9% NaCl IVPB Med Flush (250 mL) 15 ML IV (21:18)
[2018-03-07] MEDS: Amitriptyline 25 MG Tablet 50 MG PO (21:19)
[2018-03-07] MEDS: Bisacodyl 5 MG Tablet 10 MG PO (21:19)
[2018-03-07] MEDS: Atorvastatin Calcium 40 MG Tablet PO ×2 (21:19→21:20)
[2018-03-07] MEDS: Nystatin Powder 15gm Bottle 1 APPLIC TOPICAL (21:20)
[2018-03-08] MEDS: traMADol 50 MG Tablet PO ×3 (00:46→21:03)
[2018-03-08] MEDS: dilTIAZem CD 180 MG Capsule PO (05:02)
[2018-03-08] MEDS: Fluconazole 100 MG Tablet PO (05:02)
[2018-03-08] MEDS: Polyethylene Glycol 3350 17 GM PACKET PO (05:02)
[2018-03-08] MEDS: Pantoprazole Sodium 40 MG Tablet PO (05:02)
[2018-03-08] MEDS: Gabapentin 300 MG Capsule PO ×3 (05:02→21:06)
[2018-03-08] MEDS: Enoxaparin 30 MG/0.3 ML Syringe SC (05:03)
[2018-03-08] MEDS: oxyCODONE 5 MG Tablet PO (05:11)
[2018-03-08 06:51] LABS: Bedside Glucose 140 mg/dL (70-110)
[2018-03-08] MEDS: Iron Polysaccharide Complex 150 MG CAPSULE PO (08:17)
[2018-03-08] MEDS: Glucerna Shake 120 ML LIQUID PO ×3 (08:17→16:09)
[2018-03-08 15:39] VITALS: BP 129/77; PULSE 99; RESP 20; TEMP 36.4; O2SAT 93
[2018-03-08] MEDS: Bisacodyl 5 MG Tablet 10 MG PO (16:09)
[2018-03-08] MEDS: Tamsulosin HCl 0.4 MG Capsule PO (16:09)
[2018-03-08] MEDS: Acetaminophen 500 MG Tablet 1000 MG PO (21:03)
[2018-03-08] MEDS: 0.9% NaCl PICC Flush IV (21:04)
[2018-03-08] MEDS: Amitriptyline 25 MG Tablet 50 MG PO (21:06)
[2018-03-09 03:10] LABS: Basophil# 0.04 X10^3/uL; Eosinophil# 0.13 X10^3/uL; Eosinophils% 3.3 % (0-5); Hematocrit 25.5 % (37-47); Lymphocyte % 43.7 % (19-41); Mean Corp Hgb Conc 31.4 g/gl (32-36); Mean Corpuscular Hgb 27.7 pg (27.0-32.0); Mean Corpuscular Volume 88.2 fL (81-99); Mean Platelet Vol. 9.1 fl (6.2-12.0); Monocyte# 0.95 X10^3/uL; Monocyte% 24.4 % (0-10); Neutrophil # 1.04 X10^3/uL (2.7-7.7); Neutrophil % 26.8 % (47-70); Platelet Count 192 K/mm3 (150-450); RBC Distribution Width CV 16.6 % (11.6-14.6); RBC Distribution Width SD 52.4 fl (35.1-43.9); Red Blood Count 2.89 M/mm3 (4.2-5.4); White Blood Count 3.9 K/mm3 (4.4-11.0)
[2018-03-09 03:20] LABS: POSITIVE COUNT NO; POSITIVE DIFFERENTIAL NO; POSITIVE MORPHOLOGY NO
[2018-03-09 03:28] LABS: International Normalized Ratio 1.1; Prothrombin Time (Protime)PT. 14.1 SECONDS (11.7-14.9)
[2018-03-09 03:36] LABS: ALB/GLOB Ratio 0.4 RATIO (0.9-2.4); AST(SGOT) 10 U/L (15-37); Alanine Aminotransfer ALT/SGPT 11 U/L (13-56); Albumin, Serum 2.1 g/dL (3.2-5.0); Alkaline Phosphatase 116 U/L (45-117); Anion Gap 9 (5-15); BUN 62 mg/dL (7-18); BUN/Creat Ratio 37.6 RATIO (10-20); Calcium,Total 8.9 mg/dL (8.5-10.1); Chloride 106 mmol/L (98-107); Creatinine, Serum 1.65 mg/dL (0.55-1.02); EST Glomerular Filtration Rate 34 mL/min (>60); Est Glom Filt Rate - Afr Amer 41 mL/min (>60); Estimated Creatinine Clearance 33.94 ml/min; Globulin 4.9 g/dL (2.2-4.2); Glucose 147 mg/dL (74-106); Potassium 5.1 mmol/L (3.5-5.1); Sodium Level 141 mmol/L (136-145)
[2018-03-09] MEDS: dilTIAZem CD 180 MG Capsule PO (05:24)
[2018-03-09] MEDS: Pantoprazole Sodium 40 MG Tablet PO (05:24)
[2018-03-09] MEDS: Polyethylene Glycol 3350 17 GM PACKET PO (05:24)
[2018-03-09] MEDS: Enoxaparin 30 MG/0.3 ML Syringe SC (05:24)
[2018-03-09] MEDS: Gabapentin 300 MG Capsule PO ×3 (05:24→21:00)
[2018-03-09] MEDS: Bisacodyl 10 MG Suppository RECTAL (05:31)
[2018-03-09] MEDS: oxyCODONE 5 MG Tablet PO (05:32)
[2018-03-09 06:46] LABS: Bedside Glucose 128 mg/dL (70-110)
[2018-03-09] MEDS: Glucerna Shake 120 ML LIQUID PO ×3 (08:19→17:01)
[2018-03-09] MEDS: Iron Polysaccharide Complex 150 MG CAPSULE PO (08:20)
--- NOTE | 2018-03-09 12:16 | NURSING ---
Dr. Covington called, patient to have surgery tomorrow at 0710, to be taken down to OR at 0530. NPO after midnight. Dr. Covington would like patient to have 2 units of PRBC in OR. AC nurse called and notified. Patient updated.
--- NOTE | 2018-03-09 12:56 | NURSING ---
TERESITA CALLED FROM FOR PRE-SURGICAL ORDERS. R' MAY TAKE PROTONIX, CARDIZEM, AND PAIN MEDS IF NEEDED MORNING OF SURGERY. NO LOVENOX.
--- NOTE | 2018-03-09 13:24 | PN.ID_ITS ---
Patient Problems: Active and Suspected Problems (Last Reviewed 02/25/18 @ 11:58 by Viviane Arnada PA-C) Recurrent dislocation of left ankle (Acute) Localized edema (Acute) Breakdown (mechanical) of other bone devices, implants and grafts, initial encounter (Acute) Open left ankle fracture (Acute) Anemia (Acute) Subjective: Pt rewrapping some of her MIGUEL wrap. No fever, no further bleeding, no n/v/d. - Physical Exam General: Alert, Cooperative, No apparent distress Lungs: Clear to auscultation, Normal air movement Cardiovascular: Regular rate, Regular Rhythm Abdomen: Soft, Non Tender, Non-Distended Skin: - - external fixator on lower LLE Vital Signs Temp Pulse Resp BP Pulse Ox 97.5 F L 99 20 H 129/77 H 93 03/08/18 15:39 03/08/18 15:39 03/08/18 15:39 03/08/18 15:39 03/08/18 15:39 Oxygen Flow Rate (L/min) 2 Oxygen Delivery Method Room Air Weight: 104.837 kg Body Mass Index (BMI) 37.3 Intake and Output for Last 24 Hours 03/07/18 03/08/18 03/09/18 23:59 23:59 23:59 Intake Total 680 / 680 1320 / 1320 1236 / 1236 Output Total 550 / 550 Balance 680 / 680 770 / 770 1236 / 1236 Laboratory Tests Past 24 Hrs 03/09/18 03/09/18 03/09/18 02:55 02:55 02:55 WBC 3.9 L RBC 2.89 L Hgb 8.0 L Hct 25.5 L MCV 88.2 MCH 27.7 MCHC 31.4 L RDW 16.6 H RDW Differential 52.4 H Plt Count 192 MPV 9.1 Immature Gran % (Auto) 0.800 Neut % (Auto) 26.8 L Lymph % (Auto) 43.7 H [place] % (Auto) 24.4 H Eos % (Auto) 3.3 Baso % (Auto) 1.0 Absolute Neuts (auto) 1.0 L Absolute Lymphs (auto) 1.70 Total Counted Not Reportable PT 14.1 INR 1.1 Sodium 141 Potassium 5.1 Chloride 106 Carbon Dioxide 26.0 Anion Gap 9 BUN 62 H Creatinine 1.65 H Estim Creat Clear Calc 33.94 Est GFR (MDRD) Af Amer 41 L Est GFR (MDRD) Non-Af 34 L BUN/Creatinine Ratio 37.6 H Glucose 147 H Calcium 8.9 Total Bilirubin 0.30 AST 10 L ALT 11 L Alkaline Phosphatase 116 Total Protein 7.0 Albumin 2.1 L Globulin 4.9 H Albumin/Globulin Ratio 0.4 L Blood Type Antibody Screen 03/09/18 02:55 WBC RBC Hgb Hct MCV MCH MCHC RDW RDW Differential Plt Count MPV Immature Gran % (Auto) Neut % (Auto) Lymph % (Auto) [place] % (Auto) Eos % (Auto) Baso % (Auto) Absolute Neuts (auto) Absolute Lymphs (auto) Total Counted PT INR Sodium Potassium Chloride Carbon Dioxide Anion Gap BUN Creatinine Estim Creat Clear Calc Est GFR (MDRD) Af Amer Est GFR (MDRD) Non-Af BUN/Creatinine Ratio Glucose Calcium Total Bilirubin AST ALT Alkaline Phosphatase Total Protein Albumin Globulin Albumin/Globulin Ratio Blood Type O NEGATIVE Antibody Screen NEGATIVE POC Glucose 03/09/18 06:30 POC Glucose 128 H Medical Necessity - Tobacco Use Smoking Status: Former smoker Tobacco Use: Non-smoker Route of nutrition/ use of supplements: [] Nutritional Intake: [] IV Site: [] Gardner Catheter: [] - Assessment/Plan Antibiotics: [] Assessment/Plan: [] Active and Suspected Problems (Last Reviewed 01/21/18 @ 12:13 by Arslan Robbins MD) Open left ankle fracture (Acute) Anemia (Acute) 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 No sign of endocarditis on finger/toenails. No spine tenderness. Bcx from 01/16 is neg. TTE done, no need for YEIMY at this time. Taken to OR for debridement by Dr. Covington 01/20. BKA may be necessary. Continue vanc. Has nausea with PCN, tolerates cefazolin, amoxicillin with no issue. Narrowed meropenem to cefepime given past cx here and at [place] with Pseudomonas spp. Cr at baseline. Plan on at least 6 week course of iv abx and then indefinite course with po given infected hardware. Stop date for vanc/cefepime planned for 03/03/18. Weekly bmp, cbc, esr, and vanc trough while on iv abx. After finishi ng iv abx, plan will be for indefinite course of po doxy 100mg bid. Taken to OR 01/29 for hardware removal and external fixator placement. Bone cx from that surgery (+) for MRSA. Repeat surgery again on 01/05, again (+) for MRSA. Stop date will be pushed back based on need for ongoing debridement and ongoing infection. Developed some fever and chills with picc redness - sent bcx of picc and pe riphery. Pulled picc 02/16 and tip for cx. UA and Ucx neg so far. Bcx, tip cx, and drainage cx also neg. Taken back to OR 02/17 and 02/26. Surg cx from 02/26 with MRSA again. OR planned for tomorrow. Cr stable. Will follow.
--- NOTE | 2018-03-09 13:40 | NURSING ---
Addendum entered by Rissa Guzman 03/09/18 17:04: R' CONT' TO BE COMPLIANT T/O DAY. LE'S HAVE BEEN ELEVATED IN BED T/O SHIFT. Original Note: R' HAS BEEN COMPLIANT T/O SHIFT SO FAR WITH ELEVATING LE'S IN BED AND STAYING IN BED. HAVE NOT WITNESSED R' TOUCHING FIXATOR. HAS BEEN COMPLIANT WITH CALLING FOR ASSISTANCE TO USE BEDPAN. WILL CONT' TO MONITOR.
[2018-03-09 15:32] VITALS: BP 155/72; PULSE 97; RESP 20; TEMP 36.7; O2SAT 94
[2018-03-09 15:34] VITALS: BP 155/72; PULSE 97; RESP 20; TEMP 36.7; O2SAT 20
[2018-03-09] MEDS: Tamsulosin HCl 0.4 MG Capsule PO (17:01)
[2018-03-09] MEDS: CHLORHEXIDINE GLUC 2% CLOTH 1 EACH TOWELETTE TOPICAL (20:58)
[2018-03-09] MEDS: Atorvastatin Calcium 40 MG Tablet PO (21:00)
[2018-03-09] MEDS: Amitriptyline 25 MG Tablet 50 MG PO (21:00)
[2018-03-09] MEDS: 0.9% NaCl PICC Flush IV (21:01)
[2018-03-09] MEDS: traMADol 50 MG Tablet PO (21:08)
[2018-03-09] MEDS: Acetaminophen 500 MG Tablet 1000 MG PO (21:08)
[2018-03-10] MEDS: CHLORHEXIDINE GLUC 2% CLOTH 1 EACH TOWELETTE TOPICAL (04:26)
[2018-03-10] MEDS: Pantoprazole Sodium 40 MG Tablet PO (04:27)
[2018-03-10] MEDS: dilTIAZem CD 180 MG Capsule PO (04:27)
--- NOTE | 2018-03-10 05:40 | NURSING ---
Report provided to OR at this time
[2018-03-10] MEDS: oxyCODONE 5 MG Tablet PO ×2 (15:51→21:30)
--- NOTE | 2018-03-10 15:59 | NURSING ---
Patient returned from PACU via bed. Patient awake, alert and oriented. Vitals 146/78, 84, 98% RA, 18, 96.6. LSCTA, S1S2 present and normal. BL pedal pulses palpable. Circulation checks WNL. Lower extremities warm and pink. Bowel sounds active. Patient medicated for pain. Gardner catheter intact, draining yellow, clear urine. External fixator intact, patient educated on importance of keeping leg elevated in bed and not bearing weight to LLE. Will continue to monitor.
[2018-03-10 16:00] VITALS: BP 172/80; PULSE 59; RESP 18; TEMP 35.8; O2SAT 95
[2018-03-10] MEDS: Tamsulosin HCl 0.4 MG Capsule PO (17:35)
[2018-03-10] MEDS: Iron Polysaccharide Complex 150 MG CAPSULE PO (17:36)
[2018-03-10] MEDS: Glucerna Shake 120 ML LIQUID PO (17:38)
[2018-03-10] MEDS: Acetaminophen 500 MG Tablet 1000 MG PO (19:57)
[2018-03-10] MEDS: traMADol 50 MG Tablet PO (19:58)
[2018-03-10] MEDS: 0.9% NaCl PICC Flush IV (20:03)
[2018-03-10] MEDS: Amitriptyline 25 MG Tablet 50 MG PO (21:30)
[2018-03-10] MEDS: Atorvastatin Calcium 40 MG Tablet PO (21:30)
[2018-03-10] MEDS: Gabapentin 300 MG Capsule PO (21:30)
[2018-03-11] MEDS: traMADol 50 MG Tablet PO ×2 (03:35→20:16)
[2018-03-11] MEDS: Acetaminophen 500 MG Tablet 1000 MG PO ×2 (03:35→11:32)
[2018-03-11] MEDS: 0.9% NaCl PICC Flush IV ×2 (05:10→16:53)
[2018-03-11] MEDS: Polyethylene Glycol 3350 17 GM PACKET PO (05:15)
[2018-03-11] MEDS: oxyCODONE 5 MG Tablet PO ×3 (05:19→16:52)
[2018-03-11] MEDS: Pantoprazole Sodium 40 MG Tablet PO (05:19)
[2018-03-11] MEDS: Enoxaparin 30 MG/0.3 ML Syringe SC (05:19)
[2018-03-11] MEDS: dilTIAZem CD 180 MG Capsule PO (05:20)
[2018-03-11] MEDS: Gabapentin 300 MG Capsule PO ×3 (05:21→20:17)
[2018-03-11 05:28] LABS: Hematocrit 26.4 % (37-47); Hemoglobin 8.3 g/dl (12.0-15.0)
[2018-03-11 07:06] LABS: Bedside Glucose 133 mg/dL (70-110)
[2018-03-11] MEDS: Glucerna Shake 120 ML LIQUID PO ×3 (09:07→16:49)
[2018-03-11] MEDS: Iron Polysaccharide Complex 150 MG CAPSULE PO (09:08)
--- NOTE | 2018-03-11 12:56 | PN.ID_ITS ---
Patient Problems: Active and Suspected Problems (Last Reviewed 02/25/18 @ 11:58 by Viviane Aranda PA-C) Open left ankle fracture (Acute) Anemia (Acute) Subjective: Feeling ok s/p OR. Leg is sore. No fever. - Physical Exam General: Alert, Cooperative, No apparent distress Lungs: Clear to auscultation, Normal air movement Cardiovascular: Regular rate, Regular Rhythm Abdomen: Soft, Non Tender, Non-Distended Skin: No rashes Vital Signs Temp Pulse Resp BP Pulse Ox 96.5 F L 59 L 18 172/80 H 95 03/10/18 16:00 03/10/18 16:00 03/10/18 16:00 03/10/18 16:00 03/10/18 16:00 Oxygen Flow Rate (L/min) 2 Oxygen Delivery Method Room Air Weight: 104.837 kg Body Mass Index (BMI) 37.3 Intake and Output for Last 24 Hours 03/09/18 03/10/18 03/11/18 23:59 23:59 23:59 Intake Total 2075 240 / 240 400 / 400 Output Total 1999 1550 / 1550 Balance 2075 -1760 / -1760 -1150 / -1150 Laboratory Tests Past 24 Hrs 03/09/18 03/11/18 02:55 05:15 Hgb 8.3 L Hct 26.4 L Crossmatch See Detail POC Glucose 03/11/18 06:35 POC Glucose 133 H Medical Necessity - Tobacco Use Smoking Status: Former smoker Tobacco Use: Non-smoker Route of nutrition/ use of supplements: [] Nutritional Intake: [] IV Site: [] Gardner Catheter: [] - Assessment/Plan Antibiotics: [] Assessment/Plan: [] Active and Suspected Problems (Last Reviewed 01/21/18 @ 12:13 by Arslan Robbins MD) Open left ankle fracture (Acute) Anemia (Acute) 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 No sign of endocarditis on finger/toenails. No spine tenderness. Bcx from 01/16 is neg. TTE done, no need for YEIMY at this time. Taken to OR for debridement by Dr. Covington 01/20. BKA may be necessary. Continue vanc. Has nausea with PCN, tolerates cefazolin, amoxicillin with no issue. Narrowed meropenem to cefepime given past cx here and at [place] with Pseudomonas spp. Cr at baseline. Plan on at least 6 week course of iv abx and then indefinite course with po given infected hardware. Completed cefepime. Weekly bmp, cbc, esr, and vanc trough while on iv abx. After finishing iv abx, plan will be for indefinite course of po doxy 100mg bid starting 03/13. Taken to OR 01/29 for hardware removal and external fixator placement. Bone cx from that surgery (+) for MRSA. Repeat surgery again on 01/05, again (+) for MRSA. Stop date will be pushed back based on need for ongoing debridement and ongoing infection. Developed some fever and chills with picc redness - sent bcx of picc and periphery. Pulled picc 02/16 and tip for cx. UA and Ucx neg so far. Bcx, tip cx, and drainage cx also neg. Taken back to OR 02/17, 02/26, and 03/10. Surg cx from 02/26 with MRSA again. Cr stable. Will follow.
--- NOTE | 2018-03-11 14:55 | PCA ---
Brooke, the activities lady needs to start asking us who is allowed to go out of their rooms for activities, and not just go in and take them out. She has taken people that have been in isolation and now she has taken Tracy out and she is to be on strict bed rest. And the doctors are upset because this stuff is happening.
[2018-03-11 16:00] VITALS: BP 161/83; PULSE 97; RESP 20; TEMP 36.4; O2SAT 100
[2018-03-11] MEDS: Tamsulosin HCl 0.4 MG Capsule PO (16:47)
[2018-03-11] MEDS: Atorvastatin Calcium 40 MG Tablet PO (20:17)
[2018-03-11] MEDS: Amitriptyline 25 MG Tablet 50 MG PO (20:17)
[2018-03-12] MEDS: Polyethylene Glycol 3350 17 GM PACKET PO (05:15)
[2018-03-12] MEDS: Enoxaparin 30 MG/0.3 ML Syringe SC (05:15)
[2018-03-12] MEDS: Pantoprazole Sodium 40 MG Tablet PO (05:16)
[2018-03-12] MEDS: dilTIAZem CD 180 MG Capsule PO (05:16)
[2018-03-12] MEDS: Gabapentin 300 MG Capsule PO ×3 (05:16→20:37)
--- NOTE | 2018-03-12 06:20 | NURSING ---
unable to get any blood from picline. notified. cathflow ordered.
[2018-03-12] MEDS: Alteplase 2 MG/2 ML Vial IV (06:30)
[2018-03-12 06:56] LABS: Bedside Glucose 145 mg/dL (70-110)
[2018-03-12] MEDS: 0.9% NaCl PICC Flush IV ×3 (07:16→08:00)
[2018-03-12 07:31] LABS: Erythrocyte Sedimentation Rate 72 mm/hr (0-30)
[2018-03-12 07:32] LABS: Absolute Lymphocyte Count 1.51 X10^3/ul (0.83-4.51); Basophil# 0.04 X10^3/uL; Basophil% 1.1 % (0-1); Eosinophil# 0.13 X10^3/uL; Eosinophils% 3.5 % (0-5); Hematocrit 26.3 % (37-47); Hemoglobin 8.4 g/dl (12.0-15.0); Lymphocyte # 1.51 X10^3/ul (4.0); Lymphocyte % 40.6 % (19-41); Mean Corp Hgb Conc 31.9 g/gl (32-36); Mean Corpuscular Hgb 27.7 pg (27.0-32.0); Mean Corpuscular Volume 86.8 fL (81-99); Monocyte# 0.99 X10^3/uL; Monocyte% 26.6 % (0-10); Neutrophil # 1.01 X10^3/uL (2.7-7.7); Neutrophil % 27.1 % (47-70); Platelet Count 198 K/mm3 (150-450); Red Blood Count 3.03 M/mm3 (4.2-5.4); White Blood Count 3.7 K/mm3 (4.4-11.0)
[2018-03-12 07:33] LABS: POSITIVE COUNT NO; POSITIVE DIFFERENTIAL NO; POSITIVE MORPHOLOGY NO
[2018-03-12 07:36] LABS: Anion Gap 7 (5-15); BUN 55 mg/dL (7-18); BUN/Creat Ratio 29.1 RATIO (10-20); Calcium,Total 8.8 mg/dL (8.5-10.1); Chloride 104 mmol/L (98-107); Creatinine, Serum 1.89 mg/dL (0.55-1.02); EST Glomerular Filtration Rate 29 mL/min (>60); Est Glom Filt Rate - Afr Amer 35 mL/min (>60); Estimated Creatinine Clearance 29.63 ml/min; Glucose 142 mg/dL (74-106); Potassium 4.7 mmol/L (3.5-5.1); Sodium Level 136 mmol/L (136-145)
[2018-03-12] MEDS: Glucerna Shake 120 ML LIQUID PO ×3 (07:55→17:16)
[2018-03-12] MEDS: 0.9% NaCl IVPB Med Flush (250 mL) 15 ML IV (07:58)
[2018-03-12] MEDS: Iron Polysaccharide Complex 150 MG CAPSULE PO (07:59)
[2018-03-12] MEDS: oxyCODONE 5 MG Tablet PO ×2 (09:22→20:42)
[2018-03-12] MEDS: 0.9% Normal Saline 1,000 ML 60 ML IV (11:36)
--- NOTE | 2018-03-12 11:37 | NURSING ---
Per therapy request notified Dr Covington regarding therapy restrictions, pt is to be strict NWB to LLE.
[2018-03-12 15:41] VITALS: BP 148/75; PULSE 99; RESP 18; TEMP 36.6; O2SAT 96
[2018-03-12] MEDS: Tamsulosin HCl 0.4 MG Capsule PO (17:17)
[2018-03-12] MEDS: traMADol 50 MG Tablet PO (19:27)
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
[2018-03-12] MEDS: Amitriptyline 25 MG Tablet 50 MG PO (20:38)
[2018-03-12] MEDS: Atorvastatin Calcium 40 MG Tablet PO (20:38)
[2018-03-13] MEDS: 0.9% Normal Saline 1,000 ML 60 ML IV ×2 (01:33→17:58)
[2018-03-13] MEDS: oxyCODONE 5 MG Tablet PO ×2 (04:56→13:09)
[2018-03-13] MEDS: Gabapentin 300 MG Capsule PO ×3 (04:57→20:18)
[2018-03-13] MEDS: Pantoprazole Sodium 40 MG Tablet PO (04:57)
[2018-03-13] MEDS: dilTIAZem CD 180 MG Capsule PO (04:57)
[2018-03-13] MEDS: Polyethylene Glycol 3350 17 GM PACKET PO (04:57)
[2018-03-13] MEDS: Doxycycline 100 MG CAPSULE PO ×2 (04:57→16:53)
[2018-03-13] MEDS: Enoxaparin 30 MG/0.3 ML Syringe SC (04:58)
[2018-03-13] MEDS: 0.9% NaCl PICC Flush IV (05:00)
[2018-03-13 05:11] LABS: Anion Gap 9 (5-15); BUN 60 mg/dL (7-18); BUN/Creat Ratio 30.6 RATIO (10-20); Calcium,Total 8.6 mg/dL (8.5-10.1); Chloride 106 mmol/L (98-107); Creatinine, Serum 1.96 mg/dL (0.55-1.02); EST Glomerular Filtration Rate 28 mL/min (>60); Est Glom Filt Rate - Afr Amer 33 mL/min (>60); Estimated Creatinine Clearance 28.57 ml/min; Glucose 163 mg/dL (74-106); Potassium 4.6 mmol/L (3.5-5.1); Sodium Level 139 mmol/L (136-145)
[2018-03-13 06:51] LABS: Bedside Glucose 133 mg/dL (70-110)
--- NOTE | 2018-03-13 07:17 | MDS.RN ---
Information for the mds was obtained from review of the clinical record, interview of resident, staff, and direct observation of resident's care.
[2018-03-13] MEDS: Glucerna Shake 120 ML LIQUID PO ×3 (07:45→16:51)
[2018-03-13] MEDS: Iron Polysaccharide Complex 150 MG CAPSULE PO (07:45)
--- NOTE | 2018-03-13 11:08 | PN.ID_ITS ---
Patient Problems: Active and Suspected Problems (Last Reviewed 02/25/18 @ 11:58 by Viviane Aranda PA-C) Open left ankle fracture (Acute) Anemia (Acute) Subjective: No fever, no events overnight. - Physical Exam General: Cooperative, No apparent distress Lungs: Clear to auscultation, Normal air movement Cardiovascular: Regular rate, Regular Rhythm Abdomen: Soft, Non Tender, Non-Distended Skin: Ulcer/ Wound - leg wrapped with hardware in place Vital Signs Temp Pulse Resp BP Pulse Ox 97.8 F 99 18 148/75 H 96 03/12/18 15:41 03/12/18 15:41 03/12/18 15:41 03/12/18 15:41 03/12/18 15:41 Oxygen Flow Rate (L/min) 2 Oxygen Delivery Method Room Air Weight: 104.837 kg Body Mass Index (BMI) 37.3 Intake and Output for Last 24 Hours 03/11/18 03/12/18 03/13/18 23:59 23:59 23:59 Intake Total 1250 / 1250 1700 / 1700 480 / 480 Output Total 3000 / 3000 6600 / 6600 2200 / 2200 Balance -1750 / -1750 -4900 / -4900 -1720 / -1720 Laboratory Tests Past 24 Hrs 03/13/18 04:55 Sodium 139 Potassium 4.6 Chloride 106 Carbon Dioxide 24.0 Anion Gap 9 BUN 60 H Creatinine 1.96 H Estim Creat Clear Calc 28.57 Est GFR (MDRD) Af Amer 33 L Est GFR (MDRD) Non-Af 28 L BUN/Creatinine Ratio 30.6 H Glucose 163 H Calcium 8.6 POC Glucose 03/13/18 06:35 POC Glucose 133 H Medical Necessity - Tobacco Use Smoking Status: Former smoker Tobacco Use: Non-smoker Route of nutrition/ use of supplements: [] Nutritional Intake: [] IV Site: [] Gardner Catheter: [] - Assessment/Plan Antibiotics: [] Assessment/Plan: [] Active and Suspected Problems (Last Reviewed 01/21/18 @ 12:13 by Arslan Robbins MD) Open left ankle fracture (Acute) Anemia (Acute) 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 No sign of endocarditis on finger/toenails. No spine tenderness. Bcx from 01/16 is neg. TTE done, no need for YEIMY at this time. Taken to OR for debridement by Dr. Covington 01/20. BKA may be necessary. Has nausea with PCN, tolerates cefazolin, amoxicillin with no issue. Narrowed meropenem to cefepime given past cx here and at [place] with Pseudomonas spp. Cr at baseline. Given 6 week course of iv abx and then indefinite course with po given infected hardware. Completed cefepime. Completed vanc. Now on doxy. Taken to OR 01/29 for hardware removal and external fixator placement. Bone cx from that surgery (+) for MRSA. Repeat surgery again on 01/05, again (+) for MRSA. Stop date will be pushed back based on need for ongoing debridement and ongoing infection. Developed some fever and chills with picc redness - sent bcx of picc and periphery. Pulled picc 02/16 and tip for cx. UA and Ucx neg so far. Bcx, tip cx, and drainage cx also neg. Taken back to OR 02/17, 02/26, and 03/10. Surg cx from 02/26 with MRSA again. Cr stable. Now on po doxy. Will follow.
--- NOTE | 2018-03-13 14:13 | CASEMGMT ---
Social Work Spoke with resident in room. This social service assistant collaborating with resident on setting up ramp to enter the home. Resident agreeable to completing application for [facility]. Resident aware and agreeable to having a car sales representative from [facility] can look at the home for the ramp. Support given. Notified [facility] they plan to stop by and do an estimate on the ramp, then application can be completed. Will continue to follow. Dimitrios Cantu, LINE WELDER, ASSISTED LIVING HOME DIRECTOR
[2018-03-13 15:43] VITALS: BP 144/79; PULSE 94; RESP 16; TEMP 36.2; O2SAT 98
[2018-03-13] MEDS: Tamsulosin HCl 0.4 MG Capsule PO (16:51)
[2018-03-13] MEDS: Amitriptyline 25 MG Tablet 50 MG PO (20:18)
[2018-03-13] MEDS: Atorvastatin Calcium 40 MG Tablet PO (20:19)
[2018-03-13] MEDS: Acetaminophen 500 MG Tablet 1000 MG PO (20:22)
[2018-03-14] MEDS: 0.9% NaCl PICC Flush IV (05:05)
[2018-03-14] MEDS: Enoxaparin 30 MG/0.3 ML Syringe SC (05:12)
[2018-03-14] MEDS: dilTIAZem CD 180 MG Capsule PO (05:12)
[2018-03-14] MEDS: Pantoprazole Sodium 40 MG Tablet PO (05:12)
[2018-03-14] MEDS: Doxycycline 100 MG CAPSULE PO ×2 (05:12→16:49)
[2018-03-14] MEDS: Polyethylene Glycol 3350 17 GM PACKET PO (05:12)
[2018-03-14] MEDS: Gabapentin 300 MG Capsule PO ×3 (05:13→20:23)
[2018-03-14] MEDS: Acetaminophen 500 MG Tablet 1000 MG PO (05:17)
[2018-03-14] MEDS: traMADol 50 MG Tablet PO (05:19)
[2018-03-14 05:26] LABS: Anion Gap 7 (5-15); BUN 63 mg/dL (7-18); BUN/Creat Ratio 32.1 RATIO (10-20); Chloride 108 mmol/L (98-107); Creatinine, Serum 1.96 mg/dL (0.55-1.02); EST Glomerular Filtration Rate 28 mL/min (>60); Est Glom Filt Rate - Afr Amer 33 mL/min (>60); Estimated Creatinine Clearance 28.57 ml/min; Glucose 152 mg/dL (74-106); Potassium 4.7 mmol/L (3.5-5.1); Sodium Level 140 mmol/L (136-145)
[2018-03-14 06:51] LABS: Bedside Glucose 150 mg/dL (70-110)
[2018-03-14] MEDS: Glucerna Shake 120 ML LIQUID PO ×3 (07:56→16:50)
[2018-03-14] MEDS: Iron Polysaccharide Complex 150 MG CAPSULE PO (07:56)
[2018-03-14] MEDS: oxyCODONE 5 MG Tablet PO ×2 (10:33→20:28)
[2018-03-14] MEDS: 0.9% Normal Saline 1,000 ML 60 ML IV (10:33)
[2018-03-14 16:00] VITALS: BP 156/67; PULSE 88; RESP 18; TEMP 36.2; O2SAT 97
[2018-03-14] MEDS: Tamsulosin HCl 0.4 MG Capsule PO (16:48)
--- NOTE | 2018-03-14 18:02 | NURSING ---
dr moe notified of redness to PICC line, no new orders, will continue to monitor
[2018-03-14] MEDS: Amitriptyline 25 MG Tablet 50 MG PO (20:22)
[2018-03-14] MEDS: Atorvastatin Calcium 40 MG Tablet PO (20:23)
[2018-03-15] MEDS: 0.9% Normal Saline 1,000 ML 60 ML IV (03:05)
[2018-03-15 03:52] LABS: Anion Gap 8 (5-15); BUN 65 mg/dL (7-18); Chloride 108 mmol/L (98-107); Creatinine, Serum 2.03 mg/dL (0.55-1.02); EST Glomerular Filtration Rate 27 mL/min (>60); Est Glom Filt Rate - Afr Amer 32 mL/min (>60); Estimated Creatinine Clearance 27.59 ml/min; Glucose 120 mg/dL (74-106); Potassium 4.8 mmol/L (3.5-5.1); Sodium Level 141 mmol/L (136-145)
[2018-03-15] MEDS: oxyCODONE 5 MG Tablet PO ×2 (05:24→21:01)
[2018-03-15] MEDS: dilTIAZem CD 180 MG Capsule PO (05:25)
[2018-03-15] MEDS: Doxycycline 100 MG CAPSULE PO ×2 (05:25→16:53)
[2018-03-15] MEDS: Polyethylene Glycol 3350 17 GM PACKET PO (05:25)
[2018-03-15] MEDS: Enoxaparin 30 MG/0.3 ML Syringe SC (05:26)
[2018-03-15] MEDS: Pantoprazole Sodium 40 MG Tablet PO (05:26)
[2018-03-15] MEDS: Gabapentin 300 MG Capsule PO ×3 (05:26→21:01)
[2018-03-15 06:46] LABS: Bedside Glucose 150 mg/dL (70-110)
[2018-03-15] MEDS: Iron Polysaccharide Complex 150 MG CAPSULE PO (07:52)
[2018-03-15] MEDS: Glucerna Shake 120 ML LIQUID PO ×3 (07:52→16:56)
[2018-03-15] MEDS: traMADol 50 MG Tablet PO (15:05)
[2018-03-15] MEDS: Acetaminophen 500 MG Tablet 1000 MG PO (15:05)
[2018-03-15 16:00] VITALS: BP 183/93; PULSE 100; RESP 14; TEMP 37; O2SAT 98
[2018-03-15] MEDS: Tamsulosin HCl 0.4 MG Capsule PO (16:53)
[2018-03-15] MEDS: 0.9% Normal Saline 1,000 ML 125 ML IV (17:35)
[2018-03-15] MEDS: Amitriptyline 25 MG Tablet 50 MG PO (21:01)
[2018-03-15] MEDS: Atorvastatin Calcium 40 MG Tablet PO (21:01)
[2018-03-16] MEDS: 0.9% Normal Saline 1,000 ML 125 ML IV ×3 (02:57→19:54)
[2018-03-16] MEDS: Polyethylene Glycol 3350 17 GM PACKET PO (05:08)
[2018-03-16] MEDS: Doxycycline 100 MG CAPSULE PO ×2 (05:08→17:57)
[2018-03-16] MEDS: Gabapentin 300 MG Capsule PO ×3 (05:08→19:58)
[2018-03-16] MEDS: Pantoprazole Sodium 40 MG Tablet PO (05:08)
[2018-03-16] MEDS: dilTIAZem CD 180 MG Capsule PO (05:08)
[2018-03-16] MEDS: 0.9% NaCl PICC Flush IV ×2 (05:08→12:17)
[2018-03-16] MEDS: Enoxaparin 30 MG/0.3 ML Syringe SC (05:09)
[2018-03-16 05:15] VITALS: BP 194/78; PULSE 97
[2018-03-16 05:38] LABS: Anion Gap 10 (5-15); BUN 65 mg/dL (7-18); BUN/Creat Ratio 33.7 RATIO (10-20); Calcium,Total 8.9 mg/dL (8.5-10.1); Chloride 109 mmol/L (98-107); Creatinine, Serum 1.93 mg/dL (0.55-1.02); EST Glomerular Filtration Rate 28 mL/min (>60); Est Glom Filt Rate - Afr Amer 34 mL/min (>60); Estimated Creatinine Clearance 29.02 ml/min; Glucose 138 mg/dL (74-106); Potassium 4.4 mmol/L (3.5-5.1); Sodium Level 143 mmol/L (136-145)
[2018-03-16 06:51] VITALS: BP 189/88; PULSE 102
[2018-03-16 07:16] LABS: Bedside Glucose 131 mg/dL (70-110)
[2018-03-16] MEDS: Iron Polysaccharide Complex 150 MG CAPSULE PO (07:54)
[2018-03-16] MEDS: Glucerna Shake 120 ML LIQUID PO ×3 (07:54→17:56)
--- NOTE | 2018-03-16 09:00 | NURSING ---
pt BP's elevated, Dr moe reviewed, new order for vasopressor iv and lopressor 25mg BID d/t diabetes insipidus.
--- NOTE | 2018-03-16 10:31 | NURSING ---
patient was observed with her both legs off of the bed while eating breakfast pt states that she needed to wash and bed linens changed states that she wants to have gaytan put back in states that she gets the bed wet every time she uses bed escudero pt was observed putting weight on left leg while bed linens where being changed pt states that she wants to use BSC and not the bed escudero pt was also asked if she would like a green pad on her bed pt agreed to green pad but then stated that she was not able to move up in the bed pt has been observed mutiple times with her left leg down on the floor and standing up to adjust herself in the bed
[2018-03-16] MEDS: oxyCODONE 5 MG Tablet PO ×2 (11:33→20:00)
[2018-03-16 11:36] VITALS: BP 156/88; PULSE 98
[2018-03-16] MEDS: Metoprolol Tartrate 25 MG Tablet PO ×2 (11:36→18:00)
--- NOTE | 2018-03-16 11:38 | NURSING ---
Talked to pt about gaytan, pt insisting that her catheter be put back in, refusing to use bedpan anymore. Explained to pt the reason she is on bedrest and danger of putting any weight on her lt leg. Spoke to therapy about [place] [facility], pt unwilling to try. I asked her why her gaytan was taken out yesterday, she states because I wanted it out, because it was hurting me, but now I want it back in , I'll just deal with the pain before I use the bedpan all the time. Explained to pt we could try the slide board but pt refused. Pt tearing up, states she is about ready to check myself out of here, I want to go home. I asked her how she would get around at home and she stated that she has a wheelchair at home, she would get around just fine, stated I think I should have just cut my damn leg off, I'd be home by now. Sat with pt and listened to her talk, reassured her that we are here to help, if she wants the gaytan back in I can call the and ask but that it is her choice. Pt states put the catheter in. Dr. Elizondo notified, order obtained.
[2018-03-16] MEDS: Desmopressin Acetate 40 MCG/10 ML Vial IV (12:17)
[2018-03-16 13:11] VITALS: BP 143/75; PULSE 85
[2018-03-16 15:59] VITALS: BP 145/66; PULSE 84; RESP 16; TEMP 36.5; O2SAT 98
[2018-03-16] MEDS: Tamsulosin HCl 0.4 MG Capsule PO (17:57)
[2018-03-16 18:00] VITALS: BP 145/66; PULSE 84
[2018-03-16] MEDS: Amitriptyline 25 MG Tablet 50 MG PO (19:58)
[2018-03-16] MEDS: Atorvastatin Calcium 40 MG Tablet PO (19:58)
--- NOTE | 2018-03-16 20:49 | PN_ITS ---
Subjective: Resident seen in room. Kandy Anton has been having large volume polyuria, up to 6 liters per day, I asked her if the large volume urination is new, and she states she has urinated like this all of her life. Unfortunately, her diuresis is causing her to have prerenal azotemia with worsening renal function. She is now on NS 125ML/hour, and she was given one time dose of DDAVP 1MCG IV for treatment of diabetes insipidus, will monitor sodium closely. Vitals/I&O's: Vital Signs Temp Pulse Resp BP Pulse Ox 97.7 F L 84 16 145/66 H 98 03/16/18 15:59 03/16/18 18:00 03/16/18 15:59 03/16/18 18:00 03/16/18 15:59 Oxygen Flow Rate (L/min) 2 Oxygen Delivery Method Room Air Weight: 104.837 kg Body Mass Index (BMI) 37.3 Intake and Output for Last 24 Hours 03/14/18 03/15/18 03/16/18 23:59 23:59 23:59 Intake Total 2863 / 2863 2833 / 2833 2363 / 2363 Output Total 3350 / 3350 3950 / 3950 3000 / 3000 Balance -487 / -487 -1117 / -1117 -637 / -637 Laboratory Results 03/16/18 05:15: Sodium 143, Potassium 4.4, Chloride 109 H, Carbon Dioxide 24.0, Anion Gap 10, BUN 65 H, Creatinine 1.93 H, Estim Creat Clear Calc 29.02, Est GFR (MDRD) Af Amer 34 L, Est GFR (MDRD) Non-Af 28 L, BUN/Creatinine Ratio 33.7 H, Glucose 138 H, Calcium 8.9 03/16/18 06:57: POC Glucose 131 H Past Medical History Past Medical History (Chronic Problems): Chronic Problems (Last Reviewed 02/25/18 @ 11:58 by Viviane Aranda PA-C) Alopecia (Chronic) alopecia overlying soft tissue mass right temporal parietal scalp Head mass (Chronic) 8 cm soft tissue mass right temporal parietal scalp with overlying alopecia Rheumatoid arthritis (Chronic) Gout (Chronic) Tinea unguium (Chronic) Type 2 diabetes mellitus with diabetic polyneuropathy (Chronic) Peripheral neuropathy (Chronic) Arthritis (Chronic) Hypertension (Chronic) High cholesterol (Chronic) Hypertension (Chronic) Hyperlipidemia (Chronic) Type 2 diabetes mellitus (Chronic) 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) Uncontrolled type 2 diabetes mellitus (Chronic) Non-pressure chronic ulcer of other part of right foot limited to breakdown of skin (Chronic) Tobacco use disorder (Chronic) Pure hypercholesterolemia (Chronic) History of hypertension (Chronic) Type 2 diabetes mellitus with diabetic polyneuropathy (Chronic) History of gout (Chronic) Obesity (Chronic) COPD (chronic obstructive pulmonary disease) (Chronic) Chronic renal insufficiency, stage III (moderate) (Chronic) Type 2 diabetes mellitus with foot ulcer (Chronic) History of diabetes mellitus, type II (Chronic) Medical History: Medical History (Last Reviewed 02/25/18 @ 11:58 by Viviane Aranda PA-C) Arthritis (Chronic) M19.90 Hypertension (Chronic) I10 High cholesterol (Chronic) E78.00 Clostridium difficile infection B96.89 Gout M10.9 Heart disease I51.9 Inflammatory arthritis M19.90 Lupus L93.0 Rheumatoid arthritis M06.9 Diabetes E11.9 Allergies aspirin Allergy (Verified 03/09/18 09:34) Hives latex Allergy (Verified 03/09/18 09:34) Hives Penicillins Allergy (Verified 03/09/18 09:34) Hives naproxen [From Aleve] Adverse Reaction (Severe, Verified 03/09/18 09:34) Kidney disease Stage 3 Home Medications: Ambulatory Orders Medication Instructions Recorded Allopurinol 300 mg PO DAILY 12/03/16 Amitriptyline HCl 75 mg PO QHS 12/03/16 Atenolol 50 mg PO DAILY 12/03/16 cholecalciferol (vitamin D3) 2,000 2,000 unit PO DAILY 05/27/17 unit capsule diltiazem CD 180 mg 180 mg PO DAILY 05/27/17 capsule,extended release 24 hr hydroxychloroquine 200 mg tablet 200 mg PO QDAY 05/27/17 omega-3 fatty acids 1,000 mg 1,000 mg PO QDAY 05/27/17 capsule sitagliptin 100 mg tablet 100 mg PO QDAY 05/27/17 gabapentin 300 mg capsule 300 mg PO TID cap 08/19/17 ipratropium 20 mcg-albuterol 100 1 inh INHALATION Q6H PRN #4 g 08/22/17 mcg/actuation mist for inhalation Atorvastatin Calcium [Lipitor] 40 mg PO QDAY 01/13/18 Cyclobenzaprine HCl 10 mg PO TID PRN PRN 01/13/18 Multivit-Min/Iron/Folic/Lutein 1 tab PO DAILY 01/13/18 [Centrum Silver Women Tablet] Acetaminophen [Tylenol Tablet] 650 mg PO Q6H PRN PRN tablet 01/21/18 Cefepime HCl [Maxipime] 2 gm IV Q12 01/21/18 Insulin Lispro [Humalog KwikPen] See Protocol SQ ACHS 01/21/18 Magnesium Hydroxide [Milk Of 30 ml PO DAILY PRN PRN udc 01/21/18 Magnesia] Mometasone Furoate [Nasonex] 2 spray INTRANASAL QDAY 01/21/18 Vancomycin IV 1,500 mg IV Q24H 01/21/18 traMADol [Ultram (G)] 50 mg PO Q4H PRN PRN 03/04/18 Pantoprazole Sodium [Protonix] 40 mg PO DAILY 03/10/18 Surgical History: Surgical History (Last Reviewed 02/25/18 @ 11:58 by Viviane Aranda PA-C) History of carpal tunnel release Z98.890 History of hysterectomy Z98.890, Z90.710 amputation of right pinke toe history of 2 back sugeries history of right femoral stent history of right shoulder surgery Surgical History: - - The patient has a history of lumbar disc surgery ?2. She is undergone total abdominal hysterectomy. She is undergone right carpal tunnel release. She has had right shoulder surgery. Patient is a Ab2, having had 2 abortions. 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 Lives: Alone Smoking Status: Former smoker Tobacco Use: Non-smoker Alcohol: Rare Drugs: None - *Family History Maternal Family History: Family History (Last Reviewed 02/25/18 @ 11:58 by Viviane Aranda PA-C) Mother Diabetes Hypertension CVA (cerebral vascular accident) Brother Alcoholism Sister Cancer Father Heart disease Respiratory disease History Items: - - Patient's mother at the age of 80 with a history of myocardial infarction, cerebrovascular accident, and polio Paternal Family History: Family History (Last Reviewed 02/25/18 @ 11:58 by Viviane Aranda PA-C) Mother Diabetes Hypertension CVA (cerebral vascular accident) Brother Alcoholism Sister Cancer Father Heart disease Respiratory disease History Items: - - The patient's father at the age of 64 with a history of lung cancer. Review of Systems Constitutional: Denies: Chills, Fever, Weight Change HEENT: Denies: Head Aches, Sinus Congestion, Sinus Drainage Cardiovascular: Denies: Chest Pain, Palpitations Respiratory: Denies: Cough, Shortness of breath at rest, Sputum production Gastrointestinal: Denies: Abdominal Pain, Nausea, Vomiting Genitourinary: Reports: Frequency. Denies: Dysuria Musculoskeletal: Denies: Joint Pain, Joint Tenderness Skin: Denies: Rash, Wounds Neurological: Denies: Numbness, Tingling, Focal weakness Psychiatric: Denies: Anxiety, Depression, Homicidal Ideations, Suicidal Ideations Hematologic/ Lymphatic: Denies: Easy Bruising, Easy Bleeding Patient Problems: Active and Suspected Problems (Last Reviewed 02/25/18 @ 11:58 by Viviane Aranda PA-C) Open left ankle fracture (Acute) Anemia (Acute) - Physical Exam General: Alert, Oriented x3, Cooperative HEENT: Atraumatic, PERRLA, EOMI, Normocephalic Neck: Supple, No JVD, Negative Carotid Bruits Lungs: Clear to auscultation, Normal air movement Cardiovascular: Regular rate, No murmurs Abdomen: Bowel Sounds Present, Soft, Non Tender Extremities: No edema, Capillary Refill Less than 3 Seconds, - - Left lower extremity with external fixator. Skin: No rashes, No breakdown Musculoskeletal: No Tenderness to Palpation of Joints or Extremities Neurological: Cranial nerves II-XII grossly intact Psych/Mental Status: Normal Affect, Appropriate Vital Signs Temp Pulse Resp BP Pulse Ox 97.7 F L 84 16 145/66 H 98 03/16/18 15:59 03/16/18 18:00 03/16/18 15:59 03/16/18 18:00 03/16/18 15:59 Oxygen Flow Rate (L/min) 2 Oxygen Delivery Method Room Air Weight: 104.837 kg Body Mass Index (BMI) 37.3 Intake and Output for Last 24 Hours 03/14/18 03/15/18 03/16/18 23:59 23:59 23:59 Intake Total 2863 / 2863 2833 / 2833 2363 / 2363 Output Total 3350 / 3350 3950 / 3950 3000 / 3000 Balance -487 / -487 -1117 / -1117 -637 / -637 Laboratory Tests Past 24 Hrs 03/16/18 05:15 Sodium 143 Potassium 4.4 Chloride 109 H Carbon Dioxide 24.0 Anion Gap 10 BUN 65 H Creatinine 1.93 H Estim Creat Clear Calc 29.02 Est GFR (MDRD) Af Amer 34 L Est GFR (MDRD) Non-Af 28 L BUN/Creatinine Ratio 33.7 H Glucose 138 H Calcium 8.9 POC Glucose 03/16/18 06:57 POC Glucose 131 H Assessment/Plan All Active Problems (Last Reviewed 02/25/18 @ 11:58 by Viviane Aranda PA-C) Recurrent dislocation of left ankle (Acute) Localized edema (Acute) Breakdown (mechanical) of other bone devices, implants and grafts, initial encounter (Acute) Acute osteomyelitis involving ankle and foot (Acute) Open left ankle fracture (Acute) Anemia (Acute) Decubitus ulcer of right heel, stage 3 (Acute) Infected decubitus ulcer (Acute) Blister (nonthermal), right great toe, initial encounter (Acute) Non-pressure chronic ulcer of right heel and midfoot with fat layer exposed (Acute) Non-pressure chronic ulcer of left heel and midfoot with fat layer exposed (Resolved) Diabetic foot ulcer associated with type 2 diabetes mellitus (Acute) Struck statnry object w/o fall (Acute) Non-pressure chronic ulcer of other part of right foot with fat layer exposed (Acute) Non-pressure chronic ulcer of other part of right foot with necrosis of bone (Acute) Visual disturbance (Acute) Gangrene of toe of right foot (Acute) Tobacco abuse counseling (Acute) 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 Covington 01/20/2018, admitted to TCU with debility, here for rehabilitation, strengthening, intravenous antibiotics, prior to left below the knee amputation. Resident has pain all over, consistent with pain of subacute infection. 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
[2018-03-17] MEDS: 0.9% Normal Saline 1,000 ML 125 ML IV ×3 (03:37→20:09)
[2018-03-17 06:40] LABS: Bedside Glucose 122 mg/dL (70-110)
[2018-03-17 06:41] VITALS: BP 161/72; PULSE 87
[2018-03-17] MEDS: dilTIAZem CD 180 MG Capsule PO (06:41)
[2018-03-17] MEDS: Metoprolol Tartrate 25 MG Tablet PO ×2 (06:41→17:54)
[2018-03-17] MEDS: Pantoprazole Sodium 40 MG Tablet PO (06:41)
[2018-03-17] MEDS: Enoxaparin 30 MG/0.3 ML Syringe SC (06:41)
[2018-03-17] MEDS: Gabapentin 300 MG Capsule PO ×3 (06:41→20:12)
[2018-03-17] MEDS: Doxycycline 100 MG CAPSULE PO ×2 (06:41→17:54)
[2018-03-17] MEDS: Polyethylene Glycol 3350 17 GM PACKET PO (06:41)
[2018-03-17] MEDS: oxyCODONE 5 MG Tablet PO ×2 (06:42→12:17)
[2018-03-17 06:56] LABS: Anion Gap 11 (5-15); BUN 62 mg/dL (7-18); BUN/Creat Ratio 33.9 RATIO (10-20); Chloride 108 mmol/L (98-107); Creatinine, Serum 1.83 mg/dL (0.55-1.02); EST Glomerular Filtration Rate 30 mL/min (>60); Est Glom Filt Rate - Afr Amer 36 mL/min (>60); Glucose 125 mg/dL (74-106); Potassium 4.4 mmol/L (3.5-5.1); Sodium Level 142 mmol/L (136-145)
[2018-03-17] MEDS: Iron Polysaccharide Complex 150 MG CAPSULE PO (08:34)
[2018-03-17] MEDS: Glucerna Shake 120 ML LIQUID PO ×3 (08:35→17:53)
--- NOTE | 2018-03-17 12:05 | CASEMGMT ---
Social Work Met with resident in room. Resident expressing concerns of being able to qualify for PIPP program through [employer] as resident has not be able to reapply while on the skilled unit. Resident is open to this social welfare administrator contacting [employer] to see if something could be faxed to this skilled unit to have resident complete. Telephone call to [facility] Anh Estrada. Anh faxing application to this social welfare administrator. This social welfare administrator then meeting with resident and completing application, resident also had supportive documentation. This social welfare administrator faxing application back to [employer]. Anh to contact this social welfare administrator if any further information is needed. Resident now expressing less concern with PIPP and thanking this social welfare administrator. Support given. Pending response from Asher bradshaw on ramp estimate for the [facility] application. Will continue to follow. CHEYENNE HanW, ELEVATOR OPERATOR
--- NOTE | 2018-03-17 12:22 | VDLE_ITS ---
Reason For Study: pain Procedure LEFT Exam performed portable in patient room. GSV is normal. The exam was diagnostic. CFV is compressible, spontaneous, phasic, Limited views of calf veins due to external competent, and demonstrates normal fixation device. augmentation. A preliminary report was called and/or faxed FV is compressible, spontaneous, phasic, to the pt's RN. competent and demonstrates normal augmentation. POP V is compressible, spontaneous, phasic, competent and demonstrates normal augmentation. T/P Trunk is compressible. PTV is compressible. LT PerV is compressible. Interpretation Summary Deep veins of the left lower extremity are patent and compressible segmentally. There is no evidence of left lower extremity deep vein thrombosis. Valvular competence appears intact within the proximal deep venous system on the left . The left greater saphenous vein appears patent and compressible segmentally. Ordering Physician: Gerson Elizondo Performed By: Abdoul Porter RVT
--- NOTE | 2018-03-17 12:23 | RAD_ITS ---
STUDY: X-RAY - LEFT KNEE REASON FOR EXAM: Female, 58 years old. Lower leg pain. TECHNIQUE: 2 view(s) of the knee. COMPARISON: None. FINDINGS: Normal visualized distal femur. Normal visualized proximal tibia and fibula. Normal proximal tibiofibular articulation. There is no demonstrated fracture. Normal medial femorotibial compartment. Normal lateral femorotibial compartment. Normal patellofemoral articulation. There is a soft tissue prominence in the suprapatellar region suggesting a small volume joint effusion. There are atherosclerotic calcifications. RAD/Knee 1 or 2 Views IMPRESSION: Limited two-view study of the knee shows a small effusion and is otherwise negative. Electronically Signed: David Garcia MD at 17:16 EST , Service support ,
--- NOTE | 2018-03-17 12:25 | NURSING ---
Patient has c/o sharp, throbbing pain behind left knee that is new for her. pedal pulse palpable, popliteal pulse palpable. Extremity warm and pink, Dr. Elizondo updated. NO for LLE doppler and left knee xray. Dr. Covington also updated.
--- NOTE | 2018-03-17 13:01 | RAD_ITS ---
STUDY: X-RAY - LEFT TIBIA AND FIBULA REASON FOR EXAM: Female, 58 years old. Lower leg pain. TECHNIQUE: 2 view(s) of the tibia and fibula were obtained. COMPARISON: 03/10/2018. FINDINGS: Limited by marked overlying metal artifact. See separate report for discussion of the ankle. Proximal and mid tibial shafts show no acute abnormalities. Screw holes are seen of the mid tibial shaft. Postsurgical and fracture changes of the distal tibia and fibula as discussed separately. RAD/Tibia & Fibula 2 Views IMPRESSION: Extreme degree of overlying metal artifact. No acute abnormality of the proximal to mid tibial and fibular shafts. Electronically Signed: David Garcia MD at 17:19 EST , Service support ,
--- NOTE | 2018-03-17 13:02 | RAD_ITS ---
STUDY: X-RAY - LEFT ANKLE REASON FOR EXAM: Female, 58 years old. Lower leg pain. TECHNIQUE: 3 view(s) of the ankle. COMPARISON: 03/10/2018. FINDINGS: This exam is markedly limited because of an extreme degree of metal artifact from external fixator device. Grossly stable alignment of the tibial and fibular shafts with the foot. Stable displaced fracture of the medial malleolus. Stable appearance of what appears to be bone graft material around the distal tibia especially laterally, where there appears to have been resection of the lateral malleolus. It appears that since prior exam, a soft tissue drain has been removed from the lateral aspect of the ankle. No definite bony fusion is seen across the ankle joint. RAD/Ankle min 3 Views IMPRESSION: Extremely limited by marked overlying metal artifact. The alignment between the distal tibia and fibula and the foot remain satisfactory. However, no evidence for fusion as of yet. Electronically Signed: David Garcia MD at 16:52 EST , Service support ,
--- NOTE | 2018-03-17 13:03 | RAD_ITS ---
STUDY: X-RAY - LEFT FOOT CLINICAL: Female, 58 years old. Lower leg pain TECHNIQUE: 3 view(s) of the foot. COMPARISON: None. FINDINGS: Large external fixator device is noted about the lower leg and left foot. This limits detail evaluation. There is cortical irregularity of the medial aspect of the mid shaft first metatarsal, likely from prior partial fixator device. No evidence of left foot fracture otherwise. Soft tissue swelling is noted RAD/Foot min 3 Views IMPRESSION: Limited exam as above. Cortical irregularity of the medial aspect of the mid shaft first metatarsal, likely from prior fixator placement. Soft tissue swelling Electronically Signed: Rodger Torres DO at 13:35 EST Tel , Service support ,
--- NOTE | 2018-03-17 13:05 | NURSING ---
Dr. Covington in to see patient, dressing changed. Order for tib/fib, ankle and left foot xray.
--- NOTE | 2018-03-17 13:54 | CASEMGMT ---
Brief interview for mental status (BIMS) and resident mood interview (PHQ-9) completed on this day. BIMS score 15. PHQ-9 score 08/24
--- NOTE | 2018-03-17 14:24 | PN.ORTHO_ITS ---
Patient Problems: Active and Suspected Problems (Last Reviewed 02/25/18 @ 11:58 by Viviane Aranda PA-C) Open left ankle fracture (Acute) Anemia (Acute) Subjective: Pt evaluated at bedside. Has new c/o of medial calf pain that developed today. feels her edema is better, states she is getting antsy to go home but understands she is not ready. Denies f/c/n/v/sob/cp. no new injuries Objective: LLE: Vasc: mild edema diffusely to the LLE, improved in some areas; crf < 3 seconds, warm to warm, mild tenderness with medial calf compression Neuro: light touch sensation diminished MS: external fixator intact with all nuts/bolts firmly attached and covered, wires all appear appropriately tensioned Derm: pinsites no SOI; lateral incision with sutures intact-drain removed, central incision remained open 2 cm x 0.5 cm x 2 cm deep, no drainage; anteromedial ankle wound: fibrogranular base, mild maceration to the rim, no drainage, no hematoma, no purulence; red granular base after sharp debridement no bone exposed measures 7 cm x 3 cm x 1.5 cm at deepest LLE duplex: negative for dvt Radiographs: L tib fib, ankle and foot: hardware intact no broken wires or haloing of tibial pins, improved alignment and compression of the tibiotalar joint with residual bone graft in LLE, no new fractures - Physical Exam Vital Signs Temp Pulse Resp BP Pulse Ox 97.7 F L 87 16 161/72 H 98 03/16/18 15:59 03/17/18 06:41 03/16/18 15:59 03/17/18 06:41 03/16/18 15:59 Oxygen Flow Rate (L/min) 2 Oxygen Delivery Method Room Air Weight: 231 lb 2 oz Body Mass Index (BMI) 37.3 Intake and Output for Last 24 Hours 03/15/18 03/16/18 03/17/18 23:59 23:59 23:59 Intake Total 2833 / 2833 4138 / 4138 2481 / 2481 Output Total 3950 / 3950 3000 / 3000 2100 / 2100 Balance -1117 / -1117 1138 / 1138 381 / 381 Laboratory Tests Past 24 Hrs 03/17/18 06:30 Sodium 142 Potassium 4.4 Chloride 108 H Carbon Dioxide 23.0 Anion Gap 11 BUN 62 H Creatinine 1.83 H Estim Creat Clear Calc 30.60 Est GFR (MDRD) Af Amer 36 L Est GFR (MDRD) Non-Af 30 L BUN/Creatinine Ratio 33.9 H Glucose 125 H Calcium 9.0 POC Glucose 03/17/18 06:27 POC Glucose 122 H Medical Necessity - Tobacco Use Smoking Status: Former smoker Tobacco Use: Non-smoker Assessment/Plan All Active Problems (Last Reviewed 02/25/18 @ 11:58 by Viviane Aranda PA-C) Recurrent dislocation of left ankle (Acute) Localized edema (Acute) Breakdown (mechanical) of other bone devices, implants and grafts, initial encounter (Acute) Acute osteomyelitis involving ankle and foot (Acute) Open left ankle fracture (Acute) Anemia (Acute) Decubitus ulcer of right heel, stage 3 (Acute) Infected decubitus ulcer (Acute) Blister (nonthermal), right great toe, initial encounter (Acute) Non-pressure chronic ulcer of right heel and midfoot with fat layer exposed (Acute) Non-pressure chronic ulcer of left heel and midfoot with fat layer exposed (Resolved) Diabetic foot ulcer associated with type 2 diabetes mellitus (Acute) Struck statnry object w/o fall (Acute) Non-pressure chronic ulcer of other part of right foot with fat layer exposed (Acute) Non-pressure chronic ulcer of other part of right foot with necrosis of bone (Acute) Visual disturbance (Acute) Gangrene of toe of right foot (Acute) Tobacco abuse counseling (Acute) 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 Post strut adjustment radiographs confirm improved alignment and compression. -Sharp debridement of all nonviable, fibrotic tissue of the anteromedial wound was performed. Red granular base with bleeding tissue was noted, post debridement. Betadine was applied to the edge of the wound. No bone was exposed. Adaptic, [employer] extra double layer was applied to the wound. DSD and light compression applied. -Lateral incision: sutures left intact, light debridement with packing DSD and adaptic DSD applied. -Pin sites dressed with xeroform and DSD, light compression dressing to the LLE applied -Continue iv abx per ID and previous cultures. Would like to do Integra/STSG with wound vac application in 2 weeks pending progress of the fusion and ex fix and dressing changes -Strict NWB LLE, do not grab the ex fix from rings, may assist with lifting leg from posterior heel ring. Will advance weightbearing pending stability of ex fix and radiographs. -Continue dvt prophylaxis, transfuse prn Hgb < 8, Vitamin D and Ca++ supplementation, protein/nutrition support for healing. -t/c compression wrapping or eber hose for RLE if she continues to have swelling/abrasions/blisters. -Please call with questions or concerns.
[2018-03-17] MEDS: Acetaminophen 500 MG Tablet 1000 MG PO (14:34)
[2018-03-17 15:28] VITALS: BP 167/87; PULSE 88; RESP 18; TEMP 36.9; O2SAT 100
[2018-03-17 17:54] VITALS: PULSE 88
[2018-03-17] MEDS: Tamsulosin HCl 0.4 MG Capsule PO (17:54)
[2018-03-17] MEDS: Atorvastatin Calcium 40 MG Tablet PO (20:10)
[2018-03-17] MEDS: Amitriptyline 25 MG Tablet 50 MG PO (20:11)
[2018-03-18] MEDS: 0.9% Normal Saline 1,000 ML 125 ML IV ×3 (03:53→21:36)
[2018-03-18] MEDS: dilTIAZem CD 180 MG Capsule PO (05:54)
[2018-03-18] MEDS: Doxycycline 100 MG CAPSULE PO ×2 (05:54→16:40)
[2018-03-18 05:55] VITALS: BP 162/85; PULSE 97
[2018-03-18] MEDS: Enoxaparin 30 MG/0.3 ML Syringe SC (05:55)
[2018-03-18] MEDS: Metoprolol Tartrate 25 MG Tablet PO ×2 (05:55→16:41)
[2018-03-18] MEDS: Polyethylene Glycol 3350 17 GM PACKET PO (05:55)
[2018-03-18] MEDS: Gabapentin 300 MG Capsule PO ×3 (05:56→20:47)
[2018-03-18] MEDS: Pantoprazole Sodium 40 MG Tablet PO (05:56)
[2018-03-18] MEDS: Sodium Chloride 0.65% 1 SPRAY SPRAY.BTL NASAL (05:59)
[2018-03-18 06:23] LABS: Anion Gap 8 (5-15); BUN 62 mg/dL (7-18); BUN/Creat Ratio 34.3 RATIO (10-20); Calcium,Total 8.8 mg/dL (8.5-10.1); Chloride 111 mmol/L (98-107); Creatinine, Serum 1.81 mg/dL (0.55-1.02); EST Glomerular Filtration Rate 30 mL/min (>60); Est Glom Filt Rate - Afr Amer 37 mL/min (>60); Estimated Creatinine Clearance 30.94 ml/min; Glucose 144 mg/dL (74-106); Potassium 4.7 mmol/L (3.5-5.1); Sodium Level 144 mmol/L (136-145)
[2018-03-18 06:41] LABS: Bedside Glucose 141 mg/dL (70-110)
[2018-03-18] MEDS: Iron Polysaccharide Complex 150 MG CAPSULE PO (07:43)
[2018-03-18] MEDS: Glucerna Shake 120 ML LIQUID PO ×3 (07:43→16:39)
--- NOTE | 2018-03-18 09:11 | NURSING ---
dr moe order amiloride for elevated Bp's today. pharmacy notified.
--- NOTE | 2018-03-18 12:52 | PCM.PN.ID ---
Patient Problems: Active and Suspected Problems (Last Updated 03/17/18 @ 14:59 by Candi Covington DPM) Open left ankle fracture (Acute) Anemia (Acute) Subjective: Feeling better overall. No issues with po abx. No fever, no n/v/d. - Physical Exam General: Alert, Cooperative, No apparent distress Lungs: Clear to auscultation, Normal air movement Cardiovascular: Regular rate, Regular Rhythm Abdomen: Soft, Non Tender, Non-Distended Skin: Ulcer/ Wound - foot wrapped, external hardware in place Vital Signs Temp Pulse Resp BP Pulse Ox 98.4 F 97 18 162/85 H 100 03/17/18 15:28 03/18/18 05:55 03/17/18 15:28 03/18/18 05:55 03/17/18 15:28 Oxygen Flow Rate (L/min) 2 Oxygen Delivery Method Room Air Weight: 104.837 kg Body Mass Index (BMI) 37.3 Intake and Output for Last 24 Hours 03/16/18 03/17/18 03/18/18 23:59 23:59 23:59 Intake Total 4138 / 4138 2981 / 2981 480 / 480 Output Total 3000 / 3000 4875 / 4875 3100 / 3100 Balance 1138 / 1138 -1894 / -1894 -2620 / -2620 Laboratory Tests Past 24 Hrs 03/18/18 06:00 Sodium 144 Potassium 4.7 Chloride 111 H Carbon Dioxide 25.0 Anion Gap 8 BUN 62 H Creatinine 1.81 H Estim Creat Clear Calc 30.94 Est GFR (MDRD) Af Amer 37 L Est GFR (MDRD) Non-Af 30 L BUN/Creatinine Ratio 34.3 H Glucose 144 H Calcium 8.8 POC Glucose 03/18/18 06:20 POC Glucose 141 H Medical Necessity - Tobacco Use Smoking Status: Former smoker Tobacco Use: Non-smoker Route of nutrition/ use of supplements: [] Nutritional Intake: [] IV Site: [] Gardner Catheter: [] - Assessment/Plan Antibiotics: [] Assessment/Plan: [] Active and Suspected Problems (Last Reviewed 01/21/18 @ 12:13 by Arslan Robbins MD) Open left ankle fracture (Acute) Anemia (Acute) 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 No sign of endocarditis on finger/toenails. No spine tenderness. Bcx from 01/16 is neg. TTE done, no need for YEIMY at this time. Taken to OR for debridement by Dr. Covington 01/20. BKA may be necessary. Has nausea with PCN, tolerates cefazolin, amoxicillin with no issue. Narrowed meropenem to cefepime given past cx here and at [place] with Pseudomonas spp. Cr at baseline. Given 6 week course of iv abx and then indefinite course with po given infected hardware. Completed cefepime. Completed vanc. Now on doxy. Taken to OR 01/29 for hardware removal and external fixator placement. Bone cx from that surgery (+) for MRSA. Repeat surgery again on 01/05, again (+) for MRSA. Stop date will be pushed back based on need for ongoing debridement and ongoing infection. Developed some fever and chills with picc redness - sent bcx of picc and periphery. Pulled picc 02/16 and tip for cx. UA and Ucx neg so far. Bcx, tip cx, and drainage cx also neg. Taken back to OR 02/17, 02/26, and 03/10. Surg cx from 02/26 with MRSA again. Cr stable. Now on po doxy indefinitely. Will follow.
[2018-03-18] MEDS: oxyCODONE 5 MG Tablet PO ×2 (13:19→21:41)
[2018-03-18 15:15] VITALS: BP 148/78; PULSE 89; RESP 20; TEMP 35.6; O2SAT 99
[2018-03-18] MEDS: Tamsulosin HCl 0.4 MG Capsule PO (16:40)
[2018-03-18 16:41] VITALS: BP 148/78; PULSE 89
[2018-03-18] MEDS: Amitriptyline 25 MG Tablet 50 MG PO (20:45)
[2018-03-18] MEDS: Atorvastatin Calcium 40 MG Tablet PO (20:46)
[2018-03-18 20:50] VITALS: PULSE 87; O2SAT 97
[2018-03-19] MEDS: Polyethylene Glycol 3350 17 GM PACKET PO (04:56)
[2018-03-19 04:57] VITALS: BP 126/88; PULSE 98
[2018-03-19] MEDS: dilTIAZem CD 180 MG Capsule PO (04:57)
[2018-03-19] MEDS: Metoprolol Tartrate 25 MG Tablet PO ×2 (04:57→17:10)
[2018-03-19] MEDS: Doxycycline 100 MG CAPSULE PO ×2 (04:57→17:09)
[2018-03-19] MEDS: Enoxaparin 30 MG/0.3 ML Syringe SC (04:58)
[2018-03-19] MEDS: Pantoprazole Sodium 40 MG Tablet PO (04:58)
[2018-03-19] MEDS: Gabapentin 300 MG Capsule PO ×3 (04:58→20:42)
[2018-03-19] MEDS: 0.9% Normal Saline 1,000 ML 125 ML IV ×3 (05:30→20:55)
[2018-03-19] MEDS: Acetaminophen 500 MG Tablet 1000 MG PO (05:34)
[2018-03-19] MEDS: traMADol 50 MG Tablet PO (05:34)
[2018-03-19 06:41] LABS: Bedside Glucose 146 mg/dL (70-110)
[2018-03-19] MEDS: Iron Polysaccharide Complex 150 MG CAPSULE PO (08:42)
[2018-03-19] MEDS: Glucerna Shake 120 ML LIQUID PO ×3 (08:45→17:08)
[2018-03-19] MEDS: Desmopressin Acetate 40 MCG/10 ML Vial IV (10:34)
[2018-03-19] MEDS: oxyCODONE 5 MG Tablet PO (11:02)
[2018-03-19 12:59] VITALS: BP 137/71; PULSE 84
[2018-03-19] MEDS: AMILORIDE HCL 5 MG TABLET PO (13:25)
[2018-03-19 16:00] VITALS: BP 139/64; PULSE 78; RESP 16; TEMP 35.9; O2SAT 99
--- NOTE | 2018-03-19 16:05 | CASEMGMT ---
Social Work Spoke with resident in room. Resident reporting that resident mobile security architect would need to be contacted in regards to the ramp placement. manager background is Sh[facility] - [phone]. Park phone: [phone]. This social media content manager contacting park in regards to placement of ramp. Shlomo reporting to need the measurements, rough drawing of ramp placement and who would be putting in the ramp in order to approve the placement. Shlomo would need this information faxed to: [phone]. This social media content manager contacting Shimon Parks (who is getting measurements and making estimate for ramp through [facility]). This social media content manager communicating above information to Robert. Hernandez to get back to this social media content manager. Resident also inquiring about returning to home. This social media content manager collaborating with surgeon, Dr. Covington. Dr. Covington recommending for resident to continue with stay, at least until after the skin graph. Dr. Covington reporting to be planning on skin graft on 2018. Spoke with resident in room. This social media content manager communicating Dr. Covington recommendation. Resident planning to continue with stay at this time and is also concerned about returning to home too soon but wanted to see what the DrMed would recommend at this time. This social media content manager inquiring about resident current emotional status, resident becoming tearful and stating this is hard. This social media content manager offering emotional support and normalizing resident emotions. Resident reporting to know that it is a process. Resident not opening to moving to other room to help change the environment. Resident identifying no needs for emotional support. This social media content manager and team to keep offering resident support and continue to follow with resident. Support given. Will continue to follow. Dimitrios Cantu, SPRAY CEMENTER, COUNTERPERSON
[2018-03-19] MEDS: Tamsulosin HCl 0.4 MG Capsule PO (17:09)
[2018-03-19 17:10] VITALS: PULSE 78
[2018-03-19] MEDS: Atorvastatin Calcium 40 MG Tablet PO (20:42)
[2018-03-19] MEDS: Amitriptyline 25 MG Tablet 50 MG PO (20:42)
[2018-03-20] MEDS: Acetaminophen 500 MG Tablet 1000 MG PO (04:20)
[2018-03-20] MEDS: traMADol 50 MG Tablet PO (04:21)
--- NOTE | 2018-03-20 04:25 | RAD_ITS ---
STUDY: X-RAY - LEFT FOOT CLINICAL: Female, 58 years old. Increased drainage in the region of the ankle. TECHNIQUE: 3 view(s) of the foot. COMPARISON: Radiographs of the left ankle dated March 20, 2018. FINDINGS: There is limited visualization of the bones in general because of the external fixator. The visualized bones appear osteopenic. There are defects within the first metatarsal that may be the result of previous trauma and/or surgery. There is obscuration of several of the metatarsals. Normal metatarsophalangeal joint of the great toe. Normal tibial and fibular sesamoid bones. Normal interphalangeal joint of the great toe. Normal phalanges of the great toe. Normal second through fifth metatarsophalangeal joints. Normal interphalangeal joints and phalanges of the lesser toes. There is soft tissue swelling particularly at the ankle. RAD/Foot min 3 Views IMPRESSION: 1. Technically limited study due to external fixator. 2. Deformity of the first metatarsal is presumably related to previous surgery or trauma. Electronically Signed: Sunshine Lopez MD at 5:51 EST , Service support ,
--- NOTE | 2018-03-20 04:25 | RAD_ITS ---
STUDY: X-RAY - LEFT TIBIA AND FIBULA REASON FOR EXAM: Female, 58 years old. Increased drainage from left ankle. TECHNIQUE: 4 view(s) of the tibia and fibula were obtained. COMPARISON: 3 radiographs of the left ankle dated March 17, 2018. FINDINGS: There is limited visualization of the bones of the leg and ankle secondary to external fixator. There is osteolysis of the distal fibula and lateral malleolus. There is ununited fracture of the medial malleolus. There are lucencies within the tibia that are probably related to previous location of the external fixator. There is severe soft tissue swelling of the leg and ankle. Soft tissue emphysema is visible within the soft tissues of the ankle suggesting sequela of severe soft tissue infection. Vascular calcifications are visible at the knee and proximal calf. RAD/Tibia & Fibula 2 Views IMPRESSION: 1. Osteolysis of the distal fibula and possibly the medial malleolus as well may be the result of osteomyelitis. The appearance is similar to radiographs dated March 10, 2018. 2. Severe soft tissue swelling with soft tissue emphysema consistent with severe soft tissue infection. 3. Technically limited study due to external fixator. Electronically Signed: Sunshine Lopez MD at 6:04 EST , Service support ,
--- NOTE | 2018-03-20 04:27 | NURSING ---
RN entered room to find pt rolling left lower extremity back and forth in bed on external fixator. Increased drainage noted to medial ankle at pin site. Dr Covington notified immediately. N.O. xrays and reinforce dressing. Dr Covington informed this nurse she will be into see pt today. Pt educated on the importance on not rolling left lower extremity back and forth. Pt medicated for pain. Will continue to monitor and asses.
[2018-03-20] MEDS: 0.9% Normal Saline 1,000 ML 125 ML IV ×3 (04:50→21:51)
[2018-03-20] MEDS: 0.9% NaCl PICC Flush IV ×2 (04:55→13:15)
--- NOTE | 2018-03-20 05:05 | RAD_ITS ---
STUDY: X-RAY - LEFT ANKLE REASON FOR EXAM: Female, 58 years old. Increasing purulent drainage and left ankle, distal leg and foot. TECHNIQUE: 3 view(s) of the ankle. COMPARISON: Radiographs of the left ankle dated March 17, 2018. FINDINGS: There is significant limited visualization of the ankle secondary to the external fixator. The distal fibula appears to have undergone osteolysis and is not present. This may be the result of osteomyelitis. There is abnormal heterogeneous attenuation of distal tibia that may be the result of previous fracture. Appears to be ununited fracture of the medial malleolus with possible osteolysis. There is limited visualization of the tarsal bones. There is limited visualization metatarsals. There is severe soft tissue swelling at the ankle with soft tissue emphysema visible of the medial ankle presumably related to infection. RAD/Ankle min 3 Views IMPRESSION: 1. Severe soft tissue swelling of the ankle with soft tissue emphysema presumably related to known soft tissue infection. 2. There is questionable osteolysis of the medial malleolus as well as osteolysis of the distal fibula and lateral malleolus. These findings could be the result of osteomyelitis. 3. Technically limited study due to obscuration by external fixator. Electronically Signed: Sunshine Lopez MD at 5:55 EST , Service support ,
[2018-03-20 05:17] VITALS: BP 167/88; PULSE 98
[2018-03-20] MEDS: Doxycycline 100 MG CAPSULE PO ×2 (05:17→17:02)
[2018-03-20] MEDS: Gabapentin 300 MG Capsule PO ×3 (05:17→21:52)
[2018-03-20] MEDS: Metoprolol Tartrate 25 MG Tablet PO ×2 (05:17→17:02)
[2018-03-20] MEDS: dilTIAZem CD 180 MG Capsule PO (05:17)
[2018-03-20] MEDS: Polyethylene Glycol 3350 17 GM PACKET PO (05:18)
[2018-03-20] MEDS: Pantoprazole Sodium 40 MG Tablet PO (05:18)
[2018-03-20 05:22] LABS: Anion Gap 11 (5-15); BUN 58 mg/dL (7-18); BUN/Creat Ratio 31.4 RATIO (10-20); Calcium,Total 8.7 mg/dL (8.5-10.1); Chloride 107 mmol/L (98-107); Creatinine, Serum 1.85 mg/dL (0.55-1.02); EST Glomerular Filtration Rate 30 mL/min (>60); Est Glom Filt Rate - Afr Amer 36 mL/min (>60); Estimated Creatinine Clearance 30.27 ml/min; Glucose 139 mg/dL (74-106); Potassium 4.7 mmol/L (3.5-5.1); Sodium Level 140 mmol/L (136-145)
[2018-03-20] MEDS: AMILORIDE HCL 5 MG TABLET PO (05:26)
[2018-03-20 06:56] LABS: Bedside Glucose 132 mg/dL (70-110)
[2018-03-20] MEDS: Iron Polysaccharide Complex 150 MG CAPSULE PO (08:59)
[2018-03-20] MEDS: Glucerna Shake 120 ML LIQUID PO ×3 (08:59→17:04)
[2018-03-20] MEDS: oxyCODONE 5 MG Tablet PO ×2 (09:05→21:55)
[2018-03-20] MEDS: Desmopressin Acetate 40 MCG/10 ML Vial IV (13:12)
[2018-03-20 16:00] VITALS: BP 140/64; PULSE 81; RESP 18; TEMP 36.9; O2SAT 96
[2018-03-20 17:02] VITALS: BP 140/64; PULSE 81
[2018-03-20] MEDS: Tamsulosin HCl 0.4 MG Capsule PO (17:02)
--- NOTE | 2018-03-20 20:33 | RAD_ITS ---
STUDY: X-RAY - LEFT TIBIA AND FIBULA REASON FOR EXAM: Female, 58 years old. Documentation of adjustment of external fixator. TECHNIQUE: AP and lateral view(s) of the tibia and fibula were obtained. COMPARISON: Radiographs of the left leg dated March 20, 2018. FINDINGS: External fixator obscures much of the anatomy of the leg. The proximal prongs of the fixator are visible in the proximal tibial diaphysis. The patient apparently has had surgical resection of the distal fibula. There is some bone formation near the distal fibula. There is diffuse soft tissue swelling. RAD/Tibia & Fibula 2 Views IMPRESSION: Documentation of readjustment of the external fixator. Electronically Signed: Sunshine Lopez MD at 3:12 EST , Service support ,
--- NOTE | 2018-03-20 20:33 | RAD_ITS ---
STUDY: X-RAY - LEFT FOOT CLINICAL: Female, 58 years old. Documentation of strut adjustment of external fixator. TECHNIQUE: 3 view(s) of the foot. COMPARISON: Radiographs of the left foot dated March 20, 2018. FINDINGS: External fixator obscures most of the anatomy of the foot. There is a bipartite tibial sesamoid. There is deformity of the first metatarsal which may be the result of previous surgery or fracture. RAD/Foot min 3 Views IMPRESSION: Documentation of readjustment of the Ilizar[place] external fixator. Electronically Signed: Sunshine Lopez MD at 3:16 EST , Service support ,
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
--- NOTE | 2018-03-20 21:22 | RAD_ITS ---
STUDY: X-RAY - LEFT ANKLE REASON FOR EXAM: Female, 58 years old. Follow-up after readjustment of external fixator. TECHNIQUE: 4 view(s) of the ankle. COMPARISON: Radiographs of the left ankle dated March 20, 2018 time stamped 5:01 AM. FINDINGS: Anatomic detail is limited secondary to overlying external fixator. The patient apparently has had partial resection of the distal fibula. There is residual deformity of the distal tibia probably the sequela of fracture. There is a displaced medial malleolar fracture. There is soft tissue swelling. RAD/Ankle min 3 Views IMPRESSION: Documentation of adjustment of external fixator. Electronically Signed: Sunshine Lopez MD at 3:06 EST , Service support ,
[2018-03-20] MEDS: Amitriptyline 25 MG Tablet 50 MG PO (21:52)
[2018-03-20] MEDS: Atorvastatin Calcium 40 MG Tablet PO (21:52)
[2018-03-20] MEDS: Menthol/Lanolin/Calamine/Znox 113 GM Tube 1 APPLIC TOPICAL (21:56)
[2018-03-21] MEDS: 0.9% Normal Saline 1,000 ML 125 ML IV ×3 (06:11→23:12)
[2018-03-21 06:12] VITALS: BP 178/95; PULSE 100
[2018-03-21] MEDS: dilTIAZem CD 180 MG Capsule PO (06:12)
[2018-03-21] MEDS: Metoprolol Tartrate 25 MG Tablet PO ×2 (06:12→17:41)
[2018-03-21] MEDS: Doxycycline 100 MG CAPSULE PO ×2 (06:13→17:41)
[2018-03-21] MEDS: Enoxaparin 30 MG/0.3 ML Syringe SC (06:13)
[2018-03-21] MEDS: Pantoprazole Sodium 40 MG Tablet PO (06:13)
[2018-03-21] MEDS: Gabapentin 300 MG Capsule PO ×3 (06:13→21:22)
[2018-03-21] MEDS: oxyCODONE 5 MG Tablet PO ×2 (06:14→21:21)
[2018-03-21 07:16] LABS: Bedside Glucose 140 mg/dL (70-110)
[2018-03-21 10:17] LABS: Anion Gap 9 (5-15); BUN 51 mg/dL (7-18); BUN/Creat Ratio 37.2 RATIO (10-20); Calcium,Total 7.1 mg/dL (8.5-10.1); Chloride 116 mmol/L (98-107); Creatinine, Serum 1.37 mg/dL (0.55-1.02); EST Glomerular Filtration Rate 42 mL/min (>60); Est Glom Filt Rate - Afr Amer 51 mL/min (>60); Estimated Creatinine Clearance 40.88 ml/min; Glucose 161 mg/dL (74-106); Sodium Level 142 mmol/L (136-145)
[2018-03-21] MEDS: Glucerna Shake 120 ML LIQUID PO ×2 (11:11→17:40)
[2018-03-21] MEDS: Iron Polysaccharide Complex 150 MG CAPSULE PO (11:12)
[2018-03-21] MEDS: 0.9% NaCl PICC Flush IV (11:17)
[2018-03-21] MEDS: Desmopressin Acetate 40 MCG/10 ML Vial IV (11:17)
[2018-03-21] MEDS: Acetaminophen 500 MG Tablet 1000 MG PO (12:09)
[2018-03-21 16:00] VITALS: BP 148/71; PULSE 85; RESP 20; TEMP 36.6; O2SAT 98
[2018-03-21 17:41] VITALS: BP 148/71; PULSE 85
[2018-03-21] MEDS: Tamsulosin HCl 0.4 MG Capsule PO (17:41)
[2018-03-21] MEDS: Amitriptyline 25 MG Tablet 50 MG PO (21:21)
[2018-03-21] MEDS: Atorvastatin Calcium 40 MG Tablet PO (21:22)
[2018-03-21] MEDS: traMADol 50 MG Tablet PO (23:22)
[2018-03-22] MEDS: Doxycycline 100 MG CAPSULE PO ×2 (05:16→17:44)
[2018-03-22] MEDS: dilTIAZem CD 180 MG Capsule PO (05:16)
[2018-03-22 05:17] VITALS: BP 146/78; PULSE 87
[2018-03-22] MEDS: Pantoprazole Sodium 40 MG Tablet PO (05:17)
[2018-03-22] MEDS: Gabapentin 300 MG Capsule PO ×3 (05:17→21:12)
[2018-03-22] MEDS: Metoprolol Tartrate 25 MG Tablet PO ×2 (05:17→17:46)
[2018-03-22] MEDS: Enoxaparin 30 MG/0.3 ML Syringe SC (05:17)
[2018-03-22 06:50] LABS: Anion Gap 9 (5-15); BUN 60 mg/dL (7-18); BUN/Creat Ratio 33.9 RATIO (10-20); Calcium,Total 8.8 mg/dL (8.5-10.1); Chloride 108 mmol/L (98-107); Creatinine, Serum 1.77 mg/dL (0.55-1.02); EST Glomerular Filtration Rate 31 mL/min (>60); Est Glom Filt Rate - Afr Amer 38 mL/min (>60); Estimated Creatinine Clearance 31.64 ml/min; Glucose 135 mg/dL (74-106); Potassium 4.4 mmol/L (3.5-5.1); Sodium Level 138 mmol/L (136-145)
[2018-03-22 07:00] LABS: Bedside Glucose 106 mg/dL (70-110)
[2018-03-22] MEDS: 0.9% Normal Saline 1,000 ML 125 ML IV ×2 (07:14→15:52)
--- NOTE | 2018-03-22 07:57 | NURSING ---
Addendum entered by Diandra Aviles 03/22/18 12:30: NO for ambien 5mg Original Note: Pt has c/o not sleeping well. States she feels like she never gets into a deep sleep. and never feels rested. Requesting medication to help with sleep.
[2018-03-22] MEDS: Glucerna Shake 120 ML LIQUID PO ×3 (09:12→17:45)
[2018-03-22] MEDS: Iron Polysaccharide Complex 150 MG CAPSULE PO (09:13)
[2018-03-22] MEDS: oxyCODONE 5 MG Tablet PO ×2 (09:16→20:08)
--- NOTE | 2018-03-22 09:28 | NURSING ---
Pt very frustrated this morning. States she wants to take the dressing off of her leg because it is driving her crazy. Explained to patient that dressing needs to remain intact in order to protect the surgical site, patient understands. Patient moving left leg all over the bed, educated on importance of keeping leg still and when moving leg, to move slowly and gently to prevent displacement of external fixator. Patient upset about missing family Jesica and concerned about her pets. Support offered. Will continue to monitor.
[2018-03-22] MEDS: Desmopressin Acetate 40 MCG/10 ML Vial IV (13:55)
[2018-03-22 15:43] VITALS: BP 145/62; PULSE 80; RESP 20; TEMP 37.2; O2SAT 100
[2018-03-22] MEDS: Tamsulosin HCl 0.4 MG Capsule PO (17:44)
[2018-03-22 17:46] VITALS: BP 173/94; PULSE 97
[2018-03-22] MEDS: Zolpidem Tartrate 5 MG Tablet PO (21:11)
[2018-03-22] MEDS: Atorvastatin Calcium 40 MG Tablet PO (21:12)
[2018-03-22] MEDS: Amitriptyline 25 MG Tablet 50 MG PO (21:12)
[2018-03-23] MEDS: 0.9% Normal Saline 1,000 ML 125 ML IV ×3 (00:31→16:53)
[2018-03-23] MEDS: Doxycycline 100 MG CAPSULE PO ×2 (05:18→16:42)
[2018-03-23] MEDS: dilTIAZem CD 180 MG Capsule PO (05:18)
[2018-03-23] MEDS: Pantoprazole Sodium 40 MG Tablet PO (05:19)
[2018-03-23] MEDS: Enoxaparin 30 MG/0.3 ML Syringe SC (05:19)
[2018-03-23] MEDS: Gabapentin 300 MG Capsule PO ×3 (05:19→21:11)
[2018-03-23 05:20] VITALS: BP 148/68; PULSE 93
[2018-03-23] MEDS: Metoprolol Tartrate 25 MG Tablet PO ×2 (05:20→16:43)
[2018-03-23 05:35] LABS: Anion Gap 9 (5-15); BUN 61 mg/dL (7-18); BUN/Creat Ratio 35.5 RATIO (10-20); Calcium,Total 8.4 mg/dL (8.5-10.1); Chloride 110 mmol/L (98-107); Creatinine, Serum 1.72 mg/dL (0.55-1.02); EST Glomerular Filtration Rate 32 mL/min (>60); Est Glom Filt Rate - Afr Amer 39 mL/min (>60); Estimated Creatinine Clearance 32.56 ml/min; Glucose 127 mg/dL (74-106); Potassium 4.7 mmol/L (3.5-5.1); Sodium Level 140 mmol/L (136-145)
[2018-03-23 07:10] LABS: Bedside Glucose 125 mg/dL (70-110)
[2018-03-23] MEDS: Iron Polysaccharide Complex 150 MG CAPSULE PO (08:20)
[2018-03-23] MEDS: Glucerna Shake 120 ML LIQUID PO ×3 (08:22→16:41)
[2018-03-23] MEDS: 0.9% NaCl PICC Flush IV (12:06)
[2018-03-23] MEDS: Desmopressin Acetate 40 MCG/10 ML Vial IV (12:12)
[2018-03-23] MEDS: oxyCODONE 5 MG Tablet PO (15:11)
[2018-03-23 15:36] VITALS: BP 137/90; PULSE 89; RESP 18; TEMP 36.4; O2SAT 99
[2018-03-23 16:43] VITALS: BP 137/90; PULSE 89
[2018-03-23] MEDS: Tamsulosin HCl 0.4 MG Capsule PO (16:44)
--- NOTE | 2018-03-23 17:08 | CASEMGMT ---
Social Work Shimon Deleon from [facility] contacting this social service technician and inquiring in regards to placing an elevated lift versus a ramp. Spoke with resident in room, resident is agreeable to this. Shimon to get back to this social service technician on estimate. Will continue to follow. Dimitrios Cantu, CONSERVATION PLANNER, PIANO TEACHER
[2018-03-23] MEDS: Atorvastatin Calcium 40 MG Tablet PO (21:11)
[2018-03-23] MEDS: Amitriptyline 25 MG Tablet 50 MG PO (21:11)
[2018-03-24] MEDS: oxyCODONE 5 MG Tablet PO (00:57)
[2018-03-24] MEDS: 0.9% Normal Saline 1,000 ML 125 ML IV ×3 (00:59→19:50)
[2018-03-24 05:29] VITALS: PULSE 84
[2018-03-24] MEDS: Gabapentin 300 MG Capsule PO ×3 (05:29→21:56)
[2018-03-24] MEDS: Polyethylene Glycol 3350 17 GM PACKET PO (05:29)
[2018-03-24] MEDS: dilTIAZem CD 180 MG Capsule PO (05:29)
[2018-03-24] MEDS: Metoprolol Tartrate 25 MG Tablet PO ×2 (05:29→17:32)
[2018-03-24] MEDS: Doxycycline 100 MG CAPSULE PO ×2 (05:29→17:32)
[2018-03-24] MEDS: Pantoprazole Sodium 40 MG Tablet PO (05:29)
[2018-03-24] MEDS: Enoxaparin 30 MG/0.3 ML Syringe SC (05:30)
[2018-03-24 06:12] LABS: Anion Gap 10 (5-15); BUN 59 mg/dL (7-18); BUN/Creat Ratio 38.6 RATIO (10-20); Calcium,Total 8.5 mg/dL (8.5-10.1); Chloride 108 mmol/L (98-107); Creatinine, Serum 1.53 mg/dL (0.55-1.02); EST Glomerular Filtration Rate 37 mL/min (>60); Est Glom Filt Rate - Afr Amer 45 mL/min (>60); Glucose 129 mg/dL (74-106); Potassium 4.5 mmol/L (3.5-5.1); Sodium Level 138 mmol/L (136-145)
[2018-03-24 07:01] LABS: Bedside Glucose 132 mg/dL (70-110)
[2018-03-24] MEDS: Iron Polysaccharide Complex 150 MG CAPSULE PO (08:54)
[2018-03-24] MEDS: Glucerna Shake 120 ML LIQUID PO ×3 (08:54→17:30)
[2018-03-24] MEDS: Desmopressin Acetate 40 MCG/10 ML Vial IV (09:53)
[2018-03-24] MEDS: 0.9% NaCl PICC Flush IV (09:56)
[2018-03-24] MEDS: Acetaminophen 500 MG Tablet 1000 MG PO ×2 (14:12→23:29)
[2018-03-24 14:57] VITALS: BP 150/72; PULSE 83; RESP 16; TEMP 36.7; O2SAT 99
--- NOTE | 2018-03-24 16:29 | NURSING ---
Primary IV line unscrewed from PICC line and blood noted coming from line. New primary line in place. PICC insertion site ok. Resident complaining of feeling constipated. This RN offers dulcolax suppository but resident wanting to just drink prune juice at this time instead.
[2018-03-24 17:32] VITALS: PULSE 84
[2018-03-24] MEDS: Tamsulosin HCl 0.4 MG Capsule PO (17:32)
[2018-03-24] MEDS: Amitriptyline 25 MG Tablet 50 MG PO (21:56)
[2018-03-24] MEDS: Atorvastatin Calcium 40 MG Tablet PO (21:56)
[2018-03-24] MEDS: traMADol 50 MG Tablet PO (23:30)
[2018-03-25] MEDS: oxyCODONE 5 MG Tablet PO ×2 (01:06→20:27)
[2018-03-25] MEDS: 0.9% Normal Saline 1,000 ML 125 ML IV ×3 (03:55→20:23)
[2018-03-25] MEDS: Polyethylene Glycol 3350 17 GM PACKET PO (05:18)
[2018-03-25] MEDS: Pantoprazole Sodium 40 MG Tablet PO (05:18)
[2018-03-25] MEDS: dilTIAZem CD 180 MG Capsule PO (05:18)
[2018-03-25] MEDS: Doxycycline 100 MG CAPSULE PO ×2 (05:18→16:57)
[2018-03-25] MEDS: Enoxaparin 30 MG/0.3 ML Syringe SC (05:19)
[2018-03-25] MEDS: Gabapentin 300 MG Capsule PO ×3 (05:19→20:24)
[2018-03-25 05:21] VITALS: BP 166/87; PULSE 76
[2018-03-25] MEDS: Metoprolol Tartrate 25 MG Tablet PO ×2 (05:21→16:58)
[2018-03-25 05:40] LABS: Anion Gap 11 (5-15); BUN 65 mg/dL (7-18); BUN/Creat Ratio 30.5 RATIO (10-20); Calcium,Total 8.8 mg/dL (8.5-10.1); Chloride 110 mmol/L (98-107); Creatinine, Serum 2.13 mg/dL (0.55-1.02); EST Glomerular Filtration Rate 25 mL/min (>60); Est Glom Filt Rate - Afr Amer 30 mL/min (>60); Estimated Creatinine Clearance 26.29 ml/min; Glucose 127 mg/dL (74-106); Potassium 4.6 mmol/L (3.5-5.1); Sodium Level 142 mmol/L (136-145)
[2018-03-25 06:40] LABS: Bedside Glucose 136 mg/dL (70-110)
[2018-03-25] MEDS: Glucerna Shake 120 ML LIQUID PO ×3 (08:55→17:05)
[2018-03-25] MEDS: Iron Polysaccharide Complex 150 MG CAPSULE PO (08:55)
[2018-03-25 10:00] VITALS: PULSE 86; RESP 18
[2018-03-25] MEDS: Desmopressin Acetate 40 MCG/10 ML Vial IV (12:02)
[2018-03-25] MEDS: Acetaminophen 500 MG Tablet 1000 MG PO (12:17)
[2018-03-25 14:20] LABS: Absolute Lymphocyte Count 1.98 X10^3/ul (0.83-4.51); Absolute Neutrophil Count 8.1 X10^3/uL (2.0-7.7); Basophil# 0.02 X10^3/uL; Basophil% 0.2 % (0-1); Eosinophils% 1.8 % (0-5); Hematocrit 26.3 % (37-47); Hemoglobin 8.5 g/dl (12.0-15.0); Lymphocyte # 1.98 X10^3/ul (4.0); Lymphocyte % 17.6 % (19-41); Mean Corp Hgb Conc 32.3 g/gl (32-36); Mean Corpuscular Hgb 27.3 pg (27.0-32.0); Mean Corpuscular Volume 84.6 fL (81-99); Mean Platelet Vol. 8.7 fl (6.2-12.0); Monocyte# 0.96 X10^3/uL; Monocyte% 8.5 % (0-10); Neutrophil # 8.05 X10^3/uL (2.7-7.7); Neutrophil % 71.4 % (47-70); POSITIVE COUNT NO; POSITIVE DIFFERENTIAL NO; POSITIVE MORPHOLOGY NO; Platelet Count 211 K/mm3 (150-450); RBC Distribution Width CV 16.5 % (11.6-14.6); RBC Distribution Width SD 50.4 fl (35.1-43.9); Red Blood Count 3.11 M/mm3 (4.2-5.4); White Blood Count 11.3 K/mm3 (4.4-11.0)
--- NOTE | 2018-03-25 14:38 | PCM.PN.ID ---
Patient Problems: Active and Suspected Problems (Last Updated 03/17/18 @ 14:59 by Candi Covington DPM) Open left ankle fracture (Acute) Anemia (Acute) Subjective: Feeling well, no fever, no n/v/d. - Physical Exam General: Alert, Cooperative, No apparent distress Lungs: Clear to auscultation, Normal air movement Cardiovascular: Regular rate, Regular Rhythm Abdomen: Soft, Non Tender, Non-Distended Skin: No rashes Vital Signs Temp Pulse Resp BP Pulse Ox 98.1 F 86 18 166/87 H 99 03/24/18 14:57 03/25/18 10:00 03/25/18 10:00 03/25/18 05:21 03/24/18 14:57 Oxygen Flow Rate (L/min) 2 Oxygen Delivery Method Room Air Weight: 104.837 kg Body Mass Index (BMI) 37.3 Intake and Output for Last 24 Hours 03/23/18 03/24/18 03/25/18 23:59 23:59 23:59 Intake Total 1959 / 1959 4167 / 4167 840 / 840 Output Total 6850 / 6850 5400 / 5400 4000 / 4000 Balance -4891 / -4891 -1233 / -1233 -3160 / -3160 Laboratory Tests Past 24 Hrs 03/25/18 03/25/18 05:16 14:04 WBC 11.3 H RBC 3.11 L Hgb 8.5 L Hct 26.3 L MCV 84.6 MCH 27.3 MCHC 32.3 RDW 16.5 H RDW Differential 50.4 H Plt Count 211 MPV 8.7 Immature Gran % (Auto) 0.500 Neut % (Auto) 71.4 H Lymph % (Auto) 17.6 L [place] % (Auto) 8.5 Eos % (Auto) 1.8 Baso % (Auto) 0.2 Absolute Neuts (auto) 8.1 H Absolute Lymphs (auto) 1.98 Total Counted Not Reportable Sodium 142 Potassium 4.6 Chloride 110 H Carbon Dioxide 21.0 Anion Gap 11 BUN 65 H Creatinine 2.13 H Estim Creat Clear Calc 26.29 Est GFR (MDRD) Af Amer 30 L Est GFR (MDRD) Non-Af 25 L BUN/Creatinine Ratio 30.5 H Glucose 127 H Calcium 8.8 POC Glucose 03/25/18 06:30 POC Glucose 136 H Medical Necessity - Tobacco Use Smoking Status: Former smoker Tobacco Use: Non-smoker Route of nutrition/ use of supplements: [] Nutritional Intake: [] IV Site: [] Gardner Catheter: [] - Assessment/Plan Antibiotics: [] Assessment/Plan: [] Active and Suspected Problems (Last Reviewed 01/21/18 @ 12:13 by Arslan Robbins MD) Open left ankle fracture (Acute) Anemia (Acute) 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 No sign of endocarditis on finger/toenails. No spine tenderness. Bcx from 01/16 is neg. TTE done, no need for YEIMY at this time. Taken to OR for debridement by Dr. Covington 01/20. BKA may be necessary. Has nausea with PCN, tolerates cefazolin, amoxicillin with no issue. Narrowed meropenem to cefepime given past cx here and at [place] with Pseudomonas spp. Cr at baseline. Given 6 week course of iv abx and then indefinite course with po given infected hardware. Completed cefepime. Completed vanc. Now on doxy. Taken to OR 01/29 for hardware removal and external fixator placement. Bone cx from that surgery (+) for MRSA. Repeat surgery again on 01/05, again (+) for MRSA. Stop date will be pushed back based on need for ongoing debridement and ongoing infection. Developed some fever and chills with picc redness - sent bcx of picc and periphery. Pulled picc 02/16 and tip for cx. UA and Ucx neg so far. Bcx, tip cx, and drainage cx also neg. Taken back to OR 02/17, 02/26, and 03/10. Surg cx from 02/26 with MRSA again. Cr stable. Now on po doxy indefinitely. Will follow.
[2018-03-25 15:45] VITALS: BP 148/77; PULSE 89; RESP 20; TEMP 35.8; O2SAT 100
[2018-03-25] MEDS: Tamsulosin HCl 0.4 MG Capsule PO (16:57)
[2018-03-25 16:58] VITALS: BP 155/90; PULSE 92
[2018-03-25] MEDS: Senna Tablet 2 TABLET PO (17:05)
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
[2018-03-25] MEDS: Amitriptyline 25 MG Tablet 50 MG PO (20:24)
[2018-03-25] MEDS: Atorvastatin Calcium 40 MG Tablet PO (20:25)
[2018-03-25] MEDS: Sodium Chloride 0.65% 1 SPRAY SPRAY.BTL NASAL (20:28)
[2018-03-26] MEDS: 0.9% Normal Saline 1,000 ML 125 ML IV ×3 (03:58→20:18)
[2018-03-26 05:01] VITALS: BP 166/94; PULSE 96
[2018-03-26] MEDS: oxyCODONE 5 MG Tablet PO ×3 (05:01→20:19)
[2018-03-26] MEDS: Metoprolol Tartrate 25 MG Tablet PO ×2 (05:01→16:59)
[2018-03-26] MEDS: dilTIAZem CD 180 MG Capsule PO (05:02)
[2018-03-26] MEDS: Pantoprazole Sodium 40 MG Tablet PO (05:02)
[2018-03-26] MEDS: Senna Tablet 2 TABLET PO ×2 (05:02→16:59)
[2018-03-26] MEDS: Gabapentin 300 MG Capsule PO ×3 (05:03→20:19)
[2018-03-26] MEDS: Polyethylene Glycol 3350 17 GM PACKET PO (05:03)
[2018-03-26] MEDS: Enoxaparin 30 MG/0.3 ML Syringe SC (05:03)
[2018-03-26] MEDS: Doxycycline 100 MG CAPSULE PO ×2 (05:04→16:59)
[2018-03-26] MEDS: 0.9% NaCl PICC Flush IV (05:21)
[2018-03-26 05:45] LABS: Anion Gap 9 (5-15); BUN 62 mg/dL (7-18); BUN/Creat Ratio 34.4 RATIO (10-20); Calcium,Total 8.8 mg/dL (8.5-10.1); Chloride 108 mmol/L (98-107); EST Glomerular Filtration Rate 31 mL/min (>60); Est Glom Filt Rate - Afr Amer 37 mL/min (>60); Estimated Creatinine Clearance 31.11 ml/min; Glucose 139 mg/dL (74-106); Potassium 4.5 mmol/L (3.5-5.1); Sodium Level 138 mmol/L (136-145)
[2018-03-26 06:31] LABS: Bedside Glucose 133 mg/dL (70-110)
[2018-03-26] MEDS: Glucerna Shake 120 ML LIQUID PO ×3 (07:59→16:58)
[2018-03-26] MEDS: Iron Polysaccharide Complex 150 MG CAPSULE PO (08:00)
[2018-03-26] MEDS: Desmopressin Acetate 40 MCG/10 ML Vial IV (10:29)
[2018-03-26] MEDS: Sodium Chloride 0.65% 1 SPRAY SPRAY.BTL NASAL (10:41)
[2018-03-26 16:00] VITALS: BP 152/72; PULSE 90; RESP 18; TEMP 37.2; O2SAT 99
[2018-03-26 16:59] VITALS: BP 152/72; PULSE 90
[2018-03-26] MEDS: Tamsulosin HCl 0.4 MG Capsule PO (16:59)
[2018-03-26] MEDS: Amitriptyline 25 MG Tablet 50 MG PO (20:19)
[2018-03-26] MEDS: Atorvastatin Calcium 40 MG Tablet PO (20:20)
[2018-03-27] MEDS: oxyCODONE 5 MG Tablet PO ×3 (03:48→18:24)
[2018-03-27] MEDS: 0.9% Normal Saline 1,000 ML 125 ML IV ×3 (03:48→20:00)
[2018-03-27 03:52] VITALS: BP 146/84; PULSE 94
[2018-03-27] MEDS: Metoprolol Tartrate 25 MG Tablet PO ×2 (03:52→16:37)
[2018-03-27] MEDS: Pantoprazole Sodium 40 MG Tablet PO (03:52)
[2018-03-27] MEDS: Doxycycline 100 MG CAPSULE PO ×2 (03:52→16:38)
[2018-03-27] MEDS: Gabapentin 300 MG Capsule PO ×3 (03:53→20:01)
[2018-03-27] MEDS: Enoxaparin 30 MG/0.3 ML Syringe SC (03:53)
[2018-03-27] MEDS: Senna Tablet 2 TABLET PO ×2 (03:53→16:37)
[2018-03-27] MEDS: Polyethylene Glycol 3350 17 GM PACKET PO (03:53)
[2018-03-27] MEDS: dilTIAZem CD 180 MG Capsule PO (03:54)
[2018-03-27] MEDS: 0.9% NaCl PICC Flush IV ×2 (04:15→10:33)
[2018-03-27 04:52] LABS: Anion Gap 11 (5-15); BUN 61 mg/dL (7-18); BUN/Creat Ratio 39.1 RATIO (10-20); Calcium,Total 8.8 mg/dL (8.5-10.1); Chloride 106 mmol/L (98-107); Creatinine, Serum 1.56 mg/dL (0.55-1.02); EST Glomerular Filtration Rate 36 mL/min (>60); Est Glom Filt Rate - Afr Amer 44 mL/min (>60); Glucose 140 mg/dL (74-106); Potassium 4.5 mmol/L (3.5-5.1); Sodium Level 137 mmol/L (136-145)
[2018-03-27 06:40] LABS: Bedside Glucose 145 mg/dL (70-110)
[2018-03-27] MEDS: Glucerna Shake 120 ML LIQUID PO ×3 (07:37→16:36)
[2018-03-27] MEDS: Iron Polysaccharide Complex 150 MG CAPSULE PO (07:37)
[2018-03-27] MEDS: Acetaminophen 500 MG Tablet 1000 MG PO (07:41)
[2018-03-27] MEDS: Desmopressin Acetate 40 MCG/10 ML Vial IV (10:33)
--- NOTE | 2018-03-27 11:02 | MDS.RN ---
Information for the mds was obtained from review of the clinical record, interview of resident, staff, and direct observation of resident's care.
--- NOTE | 2018-03-27 13:11 | PHA.CONS_ITS ---
<JoniJose Luis Villaseñor - Last Filed: 03/27/18 13:03> Progress Note - Pharmacy Subjective: TCU Admission Objective: Allergies aspirin Allergy (Verified 03/09/18 09:34) Hives latex Allergy (Verified 03/09/18 09:34) Hives Penicillins Allergy (Verified 03/09/18 09:34) Hives naproxen [From Aleve] Adverse Reaction (Severe, Verified 03/09/18 09:34) Kidney disease Stage 3 Current Medications Generic Name Dose Route Start Last Admin Trade Name Freq PRN Reason Stop Dose Admin Acetaminophen 1,000 mg 02/20/18 18:20 03/27/18 07:41 Tylenol PO 1,000 mg Q6H PRN PRN Administration PAIN Amitriptyline HCl 50 mg 02/19/18 22:00 03/26/18 20:19 Elavil PO 50 mg QHS [facility] Administration Atorvastatin Calcium 40 mg 01/21/18 22:00 03/26/18 20:20 Lipitor PO 40 mg QHS [facility] Administration Bisacodyl 10 mg 03/09/18 00:13 03/09/18 05:31 Dulcolax RECTAL 10 mg DAILY PRN Administration Constipation Calamine/Phenol 1 applic 03/04/18 00:38 03/20/18 21:56 Calmoseptine Ointment TOPICAL 1 applicatio BID PRN PRN Administration Redness Protocol Cholecalciferol 2,000 unit 02/24/18 06:00 03/27/18 03:52 Vitamin D PO 2,000 unit DAILY [facility] Administration Cyclobenzaprine HCl 10 mg 02/27/18 14:15 03/27/18 03:52 Flexeril PO 10 mg TID [facility] Administration Desmopressin Acetate 1 mcg 03/19/18 10:00 03/27/18 10:33 Ddavp Md Vial IV 1 mcg QAM [facility] Administration Diltiazem HCl 180 mg 01/22/18 06:00 03/27/18 03:54 Cardizem Cd PO 180 mg DAILY [facility] Administration Doxycycline Monohydrate 100 mg 03/13/18 06:00 03/27/18 03:52 Doxycycline PO 100 mg BID [facility] Administration Enoxaparin Sodium 30 mg 02/27/18 06:00 03/27/18 03:53 Lovenox SC 30 mg DAILY [facility] Administration Gabapentin 300 mg 02/27/18 14:00 03/27/18 03:53 Neurontin PO 300 mg TID [facility] Administration Heparin Sodium (Beef Lung) 50 units 02/11/18 11:10 02/11/18 11:44 IV 50 units UD PRN Administration HEPARIN FLUSH Sodium Chloride 250 mls @ 15 mls/hr 02/27/18 02:35 03/12/18 07:58 IV 15 mls/hr .[id number] PRN Administration SALINE FLUSH Sodium Chloride 1,000 mls @ 125 mls/hr 03/15/18 17:25 03/27/18 12:00 IV 125 mls/hr .Q8H [facility] Administration Lidocaine/Diphenhydr/Alum/Mg/Simeth 10 ml 02/20/18 20:08 02/23/18 09:14 PO 10 ml Q3H PRN PRN Administration MOUTH IRRITATION Metoprolol Tartrate 25 mg 03/16/18 18:00 03/27/18 03:52 Lopressor (Beta Jona) PO 25 mg BID [facility] Administration Multi-Ingredient Cream 1 applic 02/05/18 22:00 03/27/18 03:56 Eucerin TOPICAL 1 applicatio 0600,2200 [facility] Administration Protocol Nutritional Formula 1 packet 01/21/18 17:00 03/27/18 07:37 Pancho - [place] Flavor PO 1 packet BIDCM [facility] Administration Nutritional Formula (Lactose Free) 120 ml 01/22/18 07:45 03/27/18 10:48 Glucerna Shake PO 120 ml TIDCM [facility] Administration Nystatin 1 applic 03/04/18 00:39 03/07/18 21:20 Mycostatin Powder TOPICAL 1 applicatio BID PRN PRN Administration Redness Protocol Oxycodone HCl 5 mg 02/27/18 23:02 03/27/18 07:42 Oxyir PO 5 mg Q4H PRN PRN Administration MOD-SEVERE PAIN (4-10/10) Pantoprazole Sodium 40 mg 02/09/18 06:00 03/27/18 03:52 Protonix PO 40 mg DAILY [facility] Administration Polyethylene Glycol 17 gm 01/22/18 06:00 03/27/18 03:53 Miralax PO 17 gm DAILY [facility] Administration Polysaccharide Iron Complex 150 mg 01/23/18 08:00 03/27/18 07:37 Ferrex 150 PO 150 mg DAILYCM [facility] Administration Senna 2 tablet 03/25/18 18:00 03/27/18 03:53 Senokot PO 2 tablet BID [facility] Administration Sodium Chloride 10 - 20 ml 02/11/18 11:10 03/27/18 10:33 IV 10 ml UD PRN Administration PICC FLUSH Sodium Chloride 1 spray 02/25/18 18:19 03/26/18 10:41 [place] Nasal [place] NASAL 1 spray TID PRN PRN Administration NASAL DRYNESS Tamsulosin HCl 0.4 mg 02/18/18 17:30 03/26/18 16:59 Flomax PO 0.4 mg DAILY@1730 [facility] Administration Tramadol HCl 50 mg 02/26/18 22:32 03/24/18 23:30 Ultram PO 50 mg TID PRN PRN Administration MODERATE PAIN (4-5/10) Zolpidem Tartrate 5 mg 03/22/18 12:29 03/22/18 21:11 Ambien (Generic) PO 5 mg QHS PRN PRN Administration sleep Problem List (Last Updated 03/17/18 @ 14:59 by Candi Covington DPM) Alopecia (Chronic) Head mass (Chronic) Open left ankle fracture (Acute) Anemia (Acute) Rheumatoid arthritis (Chronic) Gout (Chronic) Tinea unguium (Chronic) Type 2 diabetes mellitus with diabetic polyneuropathy (Chronic) Vital Signs Temp Pulse Resp BP Pulse Ox 98.9 F 94 18 146/84 H 99 03/26/18 16:00 03/27/18 03:52 03/26/18 16:00 03/27/18 03:52 03/26/18 16:00 Oxygen Flow Rate (L/min) 2 Oxygen Delivery Method Room Air Weight: 105.8 kg Body Mass Index (BMI) 37.3 Sodium 137 mmol/L (136-145) 03/27/18 04:18 Potassium 4.5 mmol/L (3.5-5.1) 03/27/18 04:18 Chloride 106 mmol/L (98-107) 03/27/18 04:18 Carbon Dioxide 20.0 mmol/L (21.0-32.0) L 03/27/18 04:18 Anion Gap 11 (5-15) 03/27/18 04:18 BUN 61 mg/dL (7-18) H 03/27/18 04:18 Creatinine 1.56 mg/dL (0.55-1.02) H 03/27/18 04:18 Est GFR (MDRD) Af Amer 44 mL/min (>60) L 03/27/18 04:18 Est GFR (MDRD) Non-Af 36 mL/min (>60) L 03/27/18 04:18 BUN/Creatinine Ratio 39.1 RATIO (10-20) H 03/27/18 04:18 Glucose 140 mg/dL (74-106) H 03/27/18 04:18 Vancomycin Trough 17.8 ug/mL (5.0-15.0) H 03/07/18 19:35 Random Vancomycin 15.8 ug/mL (0.0-15.0) H 02/27/18 21:15 Assessment/Plan: 1) Pain APAP for pain, tramadol for moderate pain, oxycodone for moderate-severe pain, cyclobenzaprine, gabapentin, BMX prn, hydroxychloroquine, 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 Continue to monitor daily pain scores, prn medication use. * Please update APAP and oxycodone instructions so as not to overlap with other pain medications. Thank you. 2) ID Doxycycline indefinitely for osteomyelitis. Continue to monitor s/s infection. 3) HTN Metoprolol, diltiazem. Continue to monitor BP/HR. 4) HLD Atorvastatin daily. Continue to monitor lipids. 5) DVT PPx Enoxaparin daily. Continue to monitor s/s bleeding/clot. 6) Nutrition D, Glucerna, multivitamin, Pancho, Fe, omega 3. Continue to monitor clinically. 7) Tamsulosin. Continue to monitor for symptoms. 8) GI Pantoprazole daily. Continue to monitor s/s GI distress. 9) DI Desmopressin daily. Continue to monitor electrolytes, urine output. Psychotropic Medications: 10) Insomnia Zolpidem as needed. Continue to monitor for insomnia. Unnecessary Medications: None Bowel Regimen: 11) Senna/s, PEG, prn bisacodyl. Continue to monitor prn medication use, for constipation/diarrhea. Date of Note:: 03/27/18 - Provider Comments Provider responsibility: Provider responsible to enter orders to implement recommendations <Gerson Elizondo Chi - Last Filed: 03/28/18 00:41> Progress Note - Pharmacy Subjective: [] Objective: Allergies aspirin Allergy (Verified 03/09/18 09:34) Hives latex Allergy (Verified 03/09/18 09:34) Hives Penicillins Allergy (Verified 03/09/18 09:34) Hives naproxen [From Aleve] Adverse Reaction (Severe, Verified 03/09/18 09:34) Kidney disease Stage 3 Current Medications Generic Name Dose Route Start Last Admin Trade Name Freq PRN Reason Stop Dose Admin Acetaminophen 1,000 mg 02/20/18 18:20 03/27/18 07:41 Tylenol PO 1,000 mg Q6H PRN PRN Administration PAIN Amitriptyline HCl 50 mg 02/19/18 22:00 03/27/18 20:04 Elavil PO 50 mg QHS [facility] Administration Atorvastatin Calcium 40 mg 01/21/18 22:00 03/27/18 20:02 Lipitor PO 40 mg QHS [facility] Administration Bisacodyl 10 mg 03/09/18 00:13 03/09/18 05:31 Dulcolax RECTAL 10 mg DAILY PRN Administration Constipation Calamine/Phenol 1 applic 03/04/18 00:38 03/20/18 21:56 Calmoseptine Ointment TOPICAL 1 applicatio BID PRN PRN Administration Redness Protocol Cholecalciferol 2,000 unit 02/24/18 06:00 03/27/18 03:52 Vitamin D PO 2,000 unit DAILY [facility] Administration Cyclobenzaprine HCl 10 mg 02/27/18 14:15 03/27/18 20:03 Flexeril PO 10 mg TID [facility] Administration Desmopressin Acetate 1 mcg 03/19/18 10:00 03/27/18 10:33 Ddavp Md Vial IV 1 mcg QAM [facility] Administration Diltiazem HCl 180 mg 01/22/18 06:00 03/27/18 03:54 Cardizem Cd PO 180 mg DAILY [facility] Administration Doxycycline Monohydrate 100 mg 03/13/18 06:00 03/27/18 16:38 Doxycycline PO 100 mg BID [facility] Administration Enoxaparin Sodium 30 mg 02/27/18 06:00 03/27/18 03:53 Lovenox SC 30 mg DAILY [facility] Administration Gabapentin 300 mg 02/27/18 14:00 03/27/18 20:01 Neurontin PO 300 mg TID [facility] Administration Heparin Sodium (Beef Lung) 50 units 02/11/18 11:10 02/11/18 11:44 IV 50 units UD PRN Administration HEPARIN FLUSH Sodium Chloride 250 mls @ 15 mls/hr 02/27/18 02:35 03/12/18 07:58 IV 15 mls/hr .[id number] PRN Administration SALINE FLUSH Sodium Chloride 1,000 mls @ 125 mls/hr 03/15/18 17:25 03/27/18 20:00 IV 125 mls/hr .Q8H [facility] Administration Lidocaine/Diphenhydr/Alum/Mg/Simeth 10 ml 02/20/18 20:08 02/23/18 09:14 PO 10 ml Q3H PRN PRN Administration MOUTH IRRITATION Metoprolol Tartrate 25 mg 03/16/18 18:00 03/27/18 16:37 Lopressor (Beta Jona) PO 25 mg BID [facility] Administration Multi-Ingredient Cream 1 applic 02/05/18 22:00 03/27/18 20:05 Eucerin TOPICAL 1 applicatio 0600,2200 [facility] Administration Protocol Nutritional Formula 1 packet 01/21/18 17:00 03/27/18 16:36 Panch[place] - [place] Flavor PO 1 packet BIDCM [facility] Administration Nutritional Formula (Lactose Free) 120 ml 01/22/18 07:45 03/27/18 16:36 Glucerna Shake PO 120 ml TIDCM [facility] Administration Nystatin 1 applic 03/04/18 00:39 03/07/18 21:20 Mycostatin Powder TOPICAL 1 applicatio BID PRN PRN Administration Redness Protocol Oxycodone HCl 5 mg 02/27/18 23:02 03/27/18 18:24 Oxyir PO 5 mg Q4H PRN PRN Administration MOD-SEVERE PAIN (4-10/10) Pantoprazole Sodium 40 mg 02/09/18 06:00 03/27/18 03:52 Protonix PO 40 mg DAILY [facility] Administration Polyethylene Glycol 17 gm 01/22/18 06:00 03/27/18 03:53 Miralax PO 17 gm DAILY [facility] Administration Polysaccharide Iron Complex 150 mg 01/23/18 08:00 03/27/18 07:37 Ferrex 150 PO 150 mg DAILYCM [facility] Administration Senna 2 tablet 03/25/18 18:00 03/27/18 16:37 Senokot PO 2 tablet BID [facility] Administration Sodium Chloride 10 - 20 ml 02/11/18 11:10 03/27/18 10:33 IV 10 ml UD PRN Administration PICC FLUSH Sodium Chloride 1 spray 02/25/18 18:19 03/26/18 10:41 [place] Nasal [place] NASAL 1 spray TID PRN PRN Administration NASAL DRYNESS Tamsulosin HCl 0.4 mg 02/18/18 17:30 03/27/18 16:38 Flomax PO 0.4 mg DAILY@1730 [facility] Administration Tramadol HCl 50 mg 02/26/18 22:32 03/24/18 23:30 Ultram PO 50 mg TID PRN PRN Administration MODERATE PAIN (4-5/10) Zolpidem Tartrate 5 mg 03/22/18 12:29 03/22/18 21:11 Ambien (Generic) PO 5 mg QHS PRN PRN Administration sleep Problem List (Last Updated 03/17/18 @ 14:59 by Candi Covington DPM) Alopecia (Chronic) Head mass (Chronic) Open left ankle fracture (Acute) Anemia (Acute) Rheumatoid arthritis (Chronic) Gout (Chronic) Tinea unguium (Chronic) Type 2 diabetes mellitus with diabetic polyneuropathy (Chronic) Vital Signs Temp Pulse Resp BP Pulse Ox 96.6 F L 88 14 137/72 H 99 03/27/18 15:11 03/27/18 16:37 03/27/18 15:11 03/27/18 16:37 03/27/18 15:11 Oxygen Flow Rate (L/min) 2 Oxygen Delivery Method Room Air Weight: 109.911 kg Body Mass Index (BMI) 37.3 Sodium 137 mmol/L (136-145) 03/27/18 04:18 Potassium 4.5 mmol/L (3.5-5.1) 03/27/18 04:18 Chloride 106 mmol/L (98-107) 03/27/18 04:18 Carbon Dioxide 20.0 mmol/L (21.0-32.0) L 03/27/18 04:18 Anion Gap 11 (5-15) 03/27/18 04:18 BUN 61 mg/dL (7-18) H 03/27/18 04:18 Creatinine 1.56 mg/dL (0.55-1.02) H 03/27/18 04:18 Est GFR (MDRD) Af Amer 44 mL/min (>60) L 03/27/18 04:18 Est GFR (MDRD) Non-Af 36 mL/min (>60) L 03/27/18 04:18 BUN/Creatinine Ratio 39.1 RATIO (10-20) H 03/27/18 04:18 Glucose 140 mg/dL (74-106) H 03/27/18 04:18 Vancomycin Trough 17.8 ug/mL (5.0-15.0) H 03/07/18 19:35 Random Vancomycin 15.8 ug/mL (0.0-15.0) H 02/27/18 21:15 Assessment/Plan: Psychotropic Medications: Unnecessary Medications: Bowel Regimen: - Provider Comments Provider responsibility: Provider responsible to enter orders to implement recommendations Provider Comments to Recommendations by Pharmacy: Agree
[2018-03-27 15:11] VITALS: BP 137/72; PULSE 88; RESP 14; TEMP 35.9; O2SAT 99
[2018-03-27 16:37] VITALS: BP 137/72; PULSE 88
[2018-03-27] MEDS: Tamsulosin HCl 0.4 MG Capsule PO (16:38)
[2018-03-27] MEDS: Atorvastatin Calcium 40 MG Tablet PO (20:02)
[2018-03-27] MEDS: Amitriptyline 25 MG Tablet 50 MG PO (20:04)
[2018-03-28] MEDS: 0.9% Normal Saline 1,000 ML 125 ML IV ×3 (03:55→20:19)
[2018-03-28] MEDS: oxyCODONE 5 MG Tablet PO ×2 (05:00→18:45)
[2018-03-28] MEDS: Enoxaparin 30 MG/0.3 ML Syringe SC (05:01)
[2018-03-28] MEDS: Gabapentin 300 MG Capsule PO ×3 (05:01→20:29)
[2018-03-28 05:02] VITALS: BP 160/88; PULSE 101
[2018-03-28] MEDS: Metoprolol Tartrate 25 MG Tablet PO ×2 (05:02→17:48)
[2018-03-28] MEDS: Senna Tablet 2 TABLET PO ×2 (05:02→17:48)
[2018-03-28] MEDS: Polyethylene Glycol 3350 17 GM PACKET PO (05:02)
[2018-03-28] MEDS: dilTIAZem CD 180 MG Capsule PO (05:03)
[2018-03-28] MEDS: Pantoprazole Sodium 40 MG Tablet PO (05:03)
[2018-03-28] MEDS: Doxycycline 100 MG CAPSULE PO ×2 (05:03→17:48)
[2018-03-28] MEDS: 0.9% NaCl PICC Flush IV (05:12)
[2018-03-28 05:39] LABS: Anion Gap 9 (5-15); BUN 61 mg/dL (7-18); Calcium,Total 8.9 mg/dL (8.5-10.1); Chloride 108 mmol/L (98-107); Creatinine, Serum 1.65 mg/dL (0.55-1.02); EST Glomerular Filtration Rate 34 mL/min (>60); Est Glom Filt Rate - Afr Amer 41 mL/min (>60); Estimated Creatinine Clearance 33.94 ml/min; Glucose 137 mg/dL (74-106); Potassium 4.4 mmol/L (3.5-5.1); Sodium Level 139 mmol/L (136-145)
[2018-03-28 06:50] LABS: Bedside Glucose 141 mg/dL (70-110)
[2018-03-28] MEDS: Glucerna Shake 120 ML LIQUID PO ×3 (07:45→17:47)
[2018-03-28] MEDS: Iron Polysaccharide Complex 150 MG CAPSULE PO (07:57)
[2018-03-28 10:00] VITALS: PULSE 83; RESP 18
[2018-03-28] MEDS: Desmopressin Acetate 40 MCG/10 ML Vial IV (10:54)
[2018-03-28 15:34] VITALS: BP 146/68; PULSE 81; RESP 16; TEMP 36.4; O2SAT 99
[2018-03-28 17:48] VITALS: PULSE 81
[2018-03-28] MEDS: Tamsulosin HCl 0.4 MG Capsule PO (17:48)
[2018-03-28] MEDS: Acetaminophen 500 MG Tablet 1000 MG PO (20:25)
[2018-03-28] MEDS: Atorvastatin Calcium 40 MG Tablet PO (20:29)
[2018-03-28] MEDS: Amitriptyline 25 MG Tablet 50 MG PO (20:30)
[2018-03-29] MEDS: 0.9% Normal Saline 1,000 ML 125 ML IV ×3 (04:45→21:29)
[2018-03-29] MEDS: dilTIAZem CD 180 MG Capsule PO (05:22)
[2018-03-29] MEDS: Doxycycline 100 MG CAPSULE PO ×2 (05:22→17:00)
[2018-03-29] MEDS: Pantoprazole Sodium 40 MG Tablet PO (05:22)
[2018-03-29] MEDS: Gabapentin 300 MG Capsule PO ×3 (05:22→21:29)
[2018-03-29] MEDS: Enoxaparin 30 MG/0.3 ML Syringe SC (05:23)
[2018-03-29] MEDS: Polyethylene Glycol 3350 17 GM PACKET PO (05:23)
[2018-03-29] MEDS: Senna Tablet 2 TABLET PO ×2 (05:23→17:05)
[2018-03-29 05:24] VITALS: BP 154/75; PULSE 87
[2018-03-29] MEDS: Metoprolol Tartrate 25 MG Tablet PO ×2 (05:24→17:13)
[2018-03-29 05:36] LABS: Anion Gap 9 (5-15); BUN 57 mg/dL (7-18); BUN/Creat Ratio 34.3 RATIO (10-20); Calcium,Total 8.7 mg/dL (8.5-10.1); Chloride 108 mmol/L (98-107); Creatinine, Serum 1.66 mg/dL (0.55-1.02); EST Glomerular Filtration Rate 34 mL/min (>60); Est Glom Filt Rate - Afr Amer 41 mL/min (>60); Estimated Creatinine Clearance 33.74 ml/min; Glucose 162 mg/dL (74-106); Potassium 4.4 mmol/L (3.5-5.1); Sodium Level 138 mmol/L (136-145)
[2018-03-29 06:46] LABS: Bedside Glucose 127 mg/dL (70-110)
[2018-03-29] MEDS: Iron Polysaccharide Complex 150 MG CAPSULE PO (07:46)
[2018-03-29] MEDS: Glucerna Shake 120 ML LIQUID PO ×3 (07:46→17:11)
[2018-03-29] MEDS: Desmopressin Acetate 40 MCG/10 ML Vial IV (11:26)
[2018-03-29] MEDS: oxyCODONE 5 MG Tablet PO ×2 (13:35→21:30)
[2018-03-29] MEDS: Acetaminophen 500 MG Tablet 1000 MG PO (13:36)
[2018-03-29 15:57] VITALS: BP 158/77; PULSE 90; RESP 16; TEMP 36.7; O2SAT 99
[2018-03-29] MEDS: Tamsulosin HCl 0.4 MG Capsule PO (17:00)
[2018-03-29 17:13] VITALS: BP 131/75; PULSE 86
[2018-03-29] MEDS: Amitriptyline 25 MG Tablet 50 MG PO (21:29)
[2018-03-29] MEDS: Atorvastatin Calcium 40 MG Tablet PO (21:29)
[2018-03-30 04:59] VITALS: BP 162/84; PULSE 99
[2018-03-30] MEDS: Metoprolol Tartrate 25 MG Tablet PO ×2 (04:59→16:37)
[2018-03-30] MEDS: Polyethylene Glycol 3350 17 GM PACKET PO (05:00)
[2018-03-30] MEDS: Senna Tablet 2 TABLET PO ×2 (05:00→16:38)
[2018-03-30] MEDS: Pantoprazole Sodium 40 MG Tablet PO (05:00)
[2018-03-30] MEDS: Gabapentin 300 MG Capsule PO ×3 (05:00→21:02)
[2018-03-30] MEDS: dilTIAZem CD 180 MG Capsule PO (05:00)
[2018-03-30] MEDS: Enoxaparin 30 MG/0.3 ML Syringe SC (05:01)
[2018-03-30] MEDS: 0.9% Normal Saline 1,000 ML 125 ML IV ×3 (05:01→21:56)
[2018-03-30] MEDS: Doxycycline 100 MG CAPSULE PO ×2 (05:01→16:38)
[2018-03-30 06:42] LABS: Bedside Glucose 122 mg/dL (70-110)
[2018-03-30] MEDS: Glucerna Shake 120 ML LIQUID PO ×3 (08:22→16:37)
[2018-03-30] MEDS: Iron Polysaccharide Complex 150 MG CAPSULE PO (08:23)
[2018-03-30] MEDS: Acetaminophen 500 MG Tablet 1000 MG PO ×2 (08:26→21:05)
[2018-03-30] MEDS: traMADol 50 MG Tablet PO ×2 (08:27→21:05)
[2018-03-30] MEDS: Desmopressin Acetate 40 MCG/10 ML Vial IV (11:00)
[2018-03-30] MEDS: 0.9% NaCl PICC Flush IV (11:03)
[2018-03-30 11:22] VITALS: RESP 16
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
[2018-03-30 16:00] VITALS: BP 148/87; PULSE 79; RESP 16; TEMP 35.3; O2SAT 98
[2018-03-30 16:37] VITALS: BP 148/87; PULSE 79
[2018-03-30] MEDS: Tamsulosin HCl 0.4 MG Capsule PO (16:38)
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
[2018-03-30] MEDS: Amitriptyline 25 MG Tablet 50 MG PO (21:02)
[2018-03-30] MEDS: Atorvastatin Calcium 40 MG Tablet PO (21:02)
[2018-03-31] MEDS: Polyethylene Glycol 3350 17 GM PACKET PO (05:20)
[2018-03-31] MEDS: 0.9% Normal Saline 1,000 ML 125 ML IV ×3 (05:20→20:51)
[2018-03-31] MEDS: Senna Tablet 2 TABLET PO ×2 (05:20→16:42)
[2018-03-31] MEDS: Gabapentin 300 MG Capsule PO ×3 (05:20→20:53)
[2018-03-31 05:21] VITALS: BP 160/79; PULSE 97
[2018-03-31] MEDS: Enoxaparin 30 MG/0.3 ML Syringe SC (05:21)
[2018-03-31] MEDS: Pantoprazole Sodium 40 MG Tablet PO (05:21)
[2018-03-31] MEDS: Metoprolol Tartrate 25 MG Tablet PO ×2 (05:21→16:42)
[2018-03-31] MEDS: dilTIAZem CD 180 MG Capsule PO (05:21)
[2018-03-31] MEDS: Doxycycline 100 MG CAPSULE PO ×2 (05:21→16:41)
[2018-03-31] MEDS: Sodium Chloride 0.65% 1 SPRAY SPRAY.BTL NASAL (05:23)
[2018-03-31] MEDS: traMADol 50 MG Tablet PO (05:26)
[2018-03-31 05:53] LABS: Absolute Lymphocyte Count 1.81 X10^3/ul (0.83-4.51); Absolute Neutrophil Count 3.6 X10^3/uL (2.0-7.7); Basophil# 0.02 X10^3/uL; Basophil% 0.3 % (0-1); Eosinophil# 0.23 X10^3/uL; Eosinophils% 3.7 % (0-5); Hematocrit 25.4 % (37-47); Hemoglobin 8.3 g/dl (12.0-15.0); Lymphocyte # 1.81 X10^3/ul (4.0); Mean Corp Hgb Conc 32.7 g/gl (32-36); Mean Corpuscular Hgb 27.9 pg (27.0-32.0); Mean Corpuscular Volume 85.5 fL (81-99); Mean Platelet Vol. 9.3 fl (6.2-12.0); Monocyte# 0.57 X10^3/uL; Monocyte% 9.1 % (0-10); Neutrophil # 3.57 X10^3/uL (2.7-7.7); Neutrophil % 57.1 % (47-70); Platelet Count 231 K/mm3 (150-450); RBC Distribution Width CV 15.9 % (11.6-14.6); RBC Distribution Width SD 48.2 fl (35.1-43.9); Red Blood Count 2.97 M/mm3 (4.2-5.4); White Blood Count 6.3 K/mm3 (4.4-11.0)
[2018-03-31 06:29] LABS: International Normalized Ratio 1.1; Prothrombin Time (Protime)PT. 13.8 SECONDS (11.7-14.9)
[2018-03-31 06:30] LABS: Partial Thromboplast Time 39.9 Seconds (24.1-36.2)
[2018-03-31 06:35] LABS: Anion Gap 12 (5-15); BUN 60 mg/dL (7-18); BUN/Creat Ratio 35.5 RATIO (10-20); Calcium,Total 8.7 mg/dL (8.5-10.1); Chloride 106 mmol/L (98-107); Creatinine, Serum 1.69 mg/dL (0.55-1.02); EST Glomerular Filtration Rate 33 mL/min (>60); Est Glom Filt Rate - Afr Amer 40 mL/min (>60); Estimated Creatinine Clearance 33.14 ml/min; Glucose 135 mg/dL (74-106); Potassium 4.2 mmol/L (3.5-5.1); Sodium Level 140 mmol/L (136-145)
[2018-03-31 06:36] LABS: Bedside Glucose 141 mg/dL (70-110)
[2018-03-31 07:01] LABS: POSITIVE COUNT NO; POSITIVE DIFFERENTIAL NO; POSITIVE MORPHOLOGY NO
[2018-03-31] MEDS: Glucerna Shake 120 ML LIQUID PO ×3 (07:49→16:41)
[2018-03-31] MEDS: Iron Polysaccharide Complex 150 MG CAPSULE PO (07:50)
--- NOTE | 2018-03-31 09:44 | NURSING ---
dr Elizondo aware of nephrology note, no new orders
[2018-03-31] MEDS: Desmopressin Acetate 40 MCG/10 ML Vial IV (10:38)
[2018-03-31] MEDS: 0.9% NaCl PICC Flush IV (10:38)
[2018-03-31 16:00] VITALS: BP 155/86; PULSE 82; RESP 20; TEMP 35.8; O2SAT 100
[2018-03-31 16:42] VITALS: BP 155/86; PULSE 82
[2018-03-31] MEDS: Tamsulosin HCl 0.4 MG Capsule PO (16:43)
[2018-03-31] MEDS: Amitriptyline 25 MG Tablet 50 MG PO (20:53)
[2018-03-31] MEDS: Atorvastatin Calcium 40 MG Tablet PO (20:53)
[2018-03-31] MEDS: oxyCODONE 5 MG Tablet PO (20:54)
[2018-04-01] MEDS: 0.9% Normal Saline 1,000 ML 125 ML IV ×3 (04:57→21:09)
[2018-04-01] MEDS: Senna Tablet 2 TABLET PO ×2 (06:24→17:34)
[2018-04-01] MEDS: Pantoprazole Sodium 40 MG Tablet PO (06:24)
[2018-04-01 06:25] VITALS: BP 170/84; PULSE 94
[2018-04-01] MEDS: dilTIAZem CD 180 MG Capsule PO (06:25)
[2018-04-01] MEDS: Gabapentin 300 MG Capsule PO ×3 (06:25→21:12)
[2018-04-01] MEDS: Metoprolol Tartrate 25 MG Tablet PO ×2 (06:25→17:33)
[2018-04-01] MEDS: Doxycycline 100 MG CAPSULE PO ×2 (06:25→17:34)
[2018-04-01] MEDS: Enoxaparin 30 MG/0.3 ML Syringe SC (06:25)
[2018-04-01 06:46] LABS: Bedside Glucose 133 mg/dL (70-110)
[2018-04-01] MEDS: Iron Polysaccharide Complex 150 MG CAPSULE PO (09:25)
[2018-04-01] MEDS: Acetaminophen 500 MG Tablet 1000 MG PO (09:35)
[2018-04-01] MEDS: oxyCODONE 5 MG Tablet PO ×2 (09:35→20:19)
[2018-04-01] MEDS: Sodium Chloride 0.65% 1 SPRAY SPRAY.BTL NASAL (09:38)
[2018-04-01] MEDS: Desmopressin Acetate 40 MCG/10 ML Vial IV (09:40)
[2018-04-01] MEDS: Glucerna Shake 120 ML LIQUID PO ×3 (09:46→17:32)
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
[2018-04-01 11:34] LABS: Mucous, Urine 0 SEEN /hpf (<or=2+); Squamous Epithelial Cells - UA 0 SEEN /hpf (5-10)
[2018-04-01 11:39] LABS: Color, Urine Yellow (Yellow); Glucose, Dipstick 100 mg/dl (Normal); Ketone-Dipstick Negative (Negative); Leukocyte Esterase-Dipstick 25 /ul (Negative); Nitrite-Dipstick Negative (Negative); Occult Blood-Urine 10 /ul (Negative); Protein-Dipstick 100 mg/dl (Negative); Urine Bilirubin Dipstick Negative (Negative); Urine Clarity Sl. Cloudy (Clear); Urine Urobilinogen Normal (Normal)
[2018-04-01 11:44] LABS: Bacteria 2+ /hpf (None Seen); Red Blood Cells-Urine 0-5 SEEN /hpf (0-5); White Blood Cells 0-5 SEEN /hpf (0-5); Yeast-Urine 2+ /hpf (None Seen)
[2018-04-01 11:52] LABS: Osmolality, Urine 385 mOsm/KG
[2018-04-01 11:55] LABS: Osmolality, Serum 301 mOsm/KG (275-295)
--- NOTE | 2018-04-01 15:12 | NURSING ---
Message left with Dr. Bejarano's clinical staff regarding redness, crusting to PICC site. Area with mild redness today, no crusting or drainage.
[2018-04-01 15:41] VITALS: BP 154/98; PULSE 91; RESP 20; TEMP 35.7; O2SAT 99
[2018-04-01 17:33] VITALS: BP 154/98; PULSE 91
[2018-04-01] MEDS: Tamsulosin HCl 0.4 MG Capsule PO (17:34)
[2018-04-01] MEDS: Amitriptyline 25 MG Tablet 50 MG PO (21:11)
[2018-04-01] MEDS: Atorvastatin Calcium 40 MG Tablet PO (21:12)
[2018-04-01] MEDS: 0.9% NaCl PICC Flush IV (21:33)
[2018-04-01] MEDS: traMADol 50 MG Tablet PO (23:51)
[2018-04-02 04:50] LABS: BUN 53 mg/dL (7-18); Creatinine, Serum 1.69 mg/dL (0.55-1.02); Glucose 124 mg/dL (74-106)
[2018-04-02 04:51] LABS: Anion Gap 10 (5-15); BUN/Creat Ratio 31.4 RATIO (10-20); Calcium,Total 8.8 mg/dL (8.5-10.1); Chloride 104 mmol/L (98-107); EST Glomerular Filtration Rate 33 mL/min (>60); Est Glom Filt Rate - Afr Amer 40 mL/min (>60); Estimated Creatinine Clearance 33.14 ml/min; Potassium 4.3 mmol/L (3.5-5.1); Sodium Level 137 mmol/L (136-145)
[2018-04-02 04:55] VITALS: BP 137/71; PULSE 90
[2018-04-02] MEDS: Pantoprazole Sodium 40 MG Tablet PO (04:55)
[2018-04-02] MEDS: Gabapentin 300 MG Capsule PO ×2 (04:55→21:57)
[2018-04-02] MEDS: Metoprolol Tartrate 25 MG Tablet PO ×2 (04:55→17:29)
[2018-04-02] MEDS: dilTIAZem CD 180 MG Capsule PO (04:55)
[2018-04-02] MEDS: 0.9% Normal Saline 1,000 ML 125 ML IV ×2 (05:36→18:34)
[2018-04-02 06:31] LABS: Bedside Glucose 117 mg/dL (70-110)
[2018-04-02] MEDS: CHLORHEXIDINE GLUC 2% CLOTH 1 EACH TOWELETTE TOPICAL (08:48)
--- NOTE | 2018-04-02 10:06 | NURSING ---
Addendum entered by Rissa Guzman 04/02/18 17:35: R' RESTING IN BED AT THIS TIME. WARM BLANKET PROVIDED. TOOK MEDS W/O DIFFICULTY. LLE ELEVATED IN BED. DENIES NEEDS AT THIS TIME. Original Note: Addendum entered by Rissa Guzman 04/02/18 16:38: R' BACK TO UNIT AT THIS TIME. Original Note: Pt taken down to AC by surgical staff at 0930, report called to MERLYN Rubio.
[2018-04-02 16:00] VITALS: BP 140/54; PULSE 70; RESP 14; TEMP 36.2; O2SAT 95
[2018-04-02] MEDS: Glucerna Shake 120 ML LIQUID PO (17:28)
[2018-04-02] MEDS: Doxycycline 100 MG CAPSULE PO (17:28)
[2018-04-02 17:29] VITALS: PULSE 70
[2018-04-02] MEDS: Senna Tablet 2 TABLET PO (17:29)
[2018-04-02] MEDS: Tamsulosin HCl 0.4 MG Capsule PO (17:30)
--- NOTE | 2018-04-02 18:06 | NURSING ---
ASKED DR. VERGARA IF IVF WERE TO BE CONTINUED. DR. VERGARA WANTS NS 125CC/HR TO BE CONTINUED.
[2018-04-02] MEDS: 0.9% NaCl PICC Flush IV (18:34)
[2018-04-02] MEDS: Amitriptyline 25 MG Tablet 50 MG PO (21:57)
[2018-04-02] MEDS: Atorvastatin Calcium 40 MG Tablet PO (21:57)
[2018-04-03] MEDS: 0.9% Normal Saline 1,000 ML 125 ML IV ×3 (02:25→18:22)
[2018-04-03 04:46] LABS: Absolute Lymphocyte Count 1.41 X10^3/ul (0.83-4.51); Basophil# 0.02 X10^3/uL; Basophil% 0.3 % (0-1); Eosinophil# 0.17 X10^3/uL; Eosinophils% 2.4 % (0-5); Hematocrit 25.3 % (37-47); Hemoglobin 8.2 g/dl (12.0-15.0); Lymphocyte # 1.41 X10^3/ul (4.0); Lymphocyte % 19.6 % (19-41); Mean Corp Hgb Conc 32.4 g/gl (32-36); Mean Corpuscular Hgb 27.7 pg (27.0-32.0); Mean Corpuscular Volume 85.5 fL (81-99); Mean Platelet Vol. 9.1 fl (6.2-12.0); Monocyte# 0.56 X10^3/uL; Monocyte% 7.8 % (0-10); Neutrophil # 4.99 X10^3/uL (2.7-7.7); Neutrophil % 69.3 % (47-70); POSITIVE COUNT NO; POSITIVE DIFFERENTIAL NO; POSITIVE MORPHOLOGY NO; Platelet Count 238 K/mm3 (150-450); RBC Distribution Width CV 15.9 % (11.6-14.6); RBC Distribution Width SD 47.6 fl (35.1-43.9); Red Blood Count 2.96 M/mm3 (4.2-5.4); White Blood Count 7.2 K/mm3 (4.4-11.0)
[2018-04-03 04:56] LABS: Anion Gap 10 (5-15); BUN 48 mg/dL (7-18); BUN/Creat Ratio 30.6 RATIO (10-20); Calcium,Total 8.7 mg/dL (8.5-10.1); Chloride 108 mmol/L (98-107); Creatinine, Serum 1.57 mg/dL (0.55-1.02); EST Glomerular Filtration Rate 36 mL/min (>60); Est Glom Filt Rate - Afr Amer 43 mL/min (>60); Estimated Creatinine Clearance 35.67 ml/min; Glucose 134 mg/dL (74-106); Potassium 4.5 mmol/L (3.5-5.1); Sodium Level 141 mmol/L (136-145)
[2018-04-03 06:25] VITALS: BP 174/91; PULSE 110
[2018-04-03] MEDS: Doxycycline 100 MG CAPSULE PO ×2 (06:25→16:38)
[2018-04-03] MEDS: Gabapentin 300 MG Capsule PO ×3 (06:25→21:19)
[2018-04-03] MEDS: Metoprolol Tartrate 25 MG Tablet PO ×2 (06:25→16:37)
[2018-04-03] MEDS: Senna Tablet 2 TABLET PO ×2 (06:25→16:37)
[2018-04-03] MEDS: Enoxaparin 30 MG/0.3 ML Syringe SC (06:26)
[2018-04-03] MEDS: Pantoprazole Sodium 40 MG Tablet PO (06:26)
[2018-04-03] MEDS: dilTIAZem CD 180 MG Capsule PO ×2 (06:26→16:38)
[2018-04-03 06:36] LABS: Bedside Glucose 146 mg/dL (70-110)
--- NOTE | 2018-04-03 06:45 | NURSING ---
Per pt request, gaytan was removed d/t pt c/o gaytan being irritating and uncomfortable.
[2018-04-03] MEDS: Iron Polysaccharide Complex 150 MG CAPSULE PO (07:37)
[2018-04-03] MEDS: Glucerna Shake 120 ML LIQUID PO ×3 (07:37→16:38)
[2018-04-03] MEDS: Acetaminophen 500 MG Tablet 1000 MG PO (13:16)
[2018-04-03 15:24] VITALS: BP 147/72; PULSE 59; RESP 16; TEMP 36.4; O2SAT 99
[2018-04-03 16:37] VITALS: BP 147/72; PULSE 59
[2018-04-03] MEDS: Tamsulosin HCl 0.4 MG Capsule PO (16:38)
[2018-04-03] MEDS: oxyCODONE 5 MG Tablet PO (16:41)
[2018-04-03] MEDS: Amitriptyline 25 MG Tablet 50 MG PO (21:19)
[2018-04-03] MEDS: Atorvastatin Calcium 40 MG Tablet PO (21:19)
[2018-04-03] MEDS: Menthol/Lanolin/Calamine/Znox 113 GM Tube 1 APPLIC TOPICAL (21:20)
[2018-04-03] MEDS: Nystatin Powder 15gm Bottle 1 APPLIC TOPICAL (21:20)
--- NOTE | 2018-04-03 23:35 | PCA ---
res to bsc, when assisting res. back to bed she lifted her leg with the external fixator, to put it into the bed, reported to rn
[2018-04-04] MEDS: oxyCODONE 5 MG Tablet PO ×2 (01:28→21:43)
--- NOTE | 2018-04-04 02:20 | NURSING ---
Pt refusing to have a new bag of NS hung at this time. Pt stating I have to sleep at sometime, I can't be up peeing all night. Educated pt on the importance of why they are ordered. Pt still refusing. Pt agreeable to have them hooked up in the AM after she gets some sleep. Pt assisted to the BSC with call light in reach.
[2018-04-04] MEDS: dilTIAZem CD 180 MG Capsule PO ×2 (05:26→18:18)
[2018-04-04] MEDS: Gabapentin 300 MG Capsule PO ×3 (05:26→21:40)
[2018-04-04] MEDS: Enoxaparin 30 MG/0.3 ML Syringe SC (05:26)
[2018-04-04] MEDS: Senna Tablet 2 TABLET PO ×2 (05:26→18:17)
[2018-04-04] MEDS: Pantoprazole Sodium 40 MG Tablet PO (05:26)
[2018-04-04] MEDS: Doxycycline 100 MG CAPSULE PO ×2 (05:26→18:17)
[2018-04-04 05:34] VITALS: BP 158/81; PULSE 96
[2018-04-04] MEDS: Metoprolol Tartrate 25 MG Tablet PO ×2 (05:34→18:17)
[2018-04-04] MEDS: Menthol/Lanolin/Calamine/Znox 113 GM Tube 1 APPLIC TOPICAL (05:35)
[2018-04-04] MEDS: Nystatin Powder 15gm Bottle 1 APPLIC TOPICAL (05:36)
[2018-04-04] MEDS: Polyethylene Glycol 3350 17 GM PACKET PO (05:37)
[2018-04-04 06:31] LABS: Bedside Glucose 190 mg/dL (70-110)
[2018-04-04] MEDS: 0.9% Normal Saline 1,000 ML 125 ML IV ×3 (07:00→23:15)
[2018-04-04] MEDS: Iron Polysaccharide Complex 150 MG CAPSULE PO (08:30)
[2018-04-04] MEDS: Glucerna Shake 120 ML LIQUID PO ×3 (08:30→18:17)
[2018-04-04] MEDS: traMADol 50 MG Tablet PO (14:44)
[2018-04-04] MEDS: Acetaminophen 500 MG Tablet 1000 MG PO (14:45)
[2018-04-04 16:00] VITALS: BP 154/72; PULSE 79; RESP 20; TEMP 35.8; O2SAT 98
[2018-04-04 18:17] VITALS: BP 154/72; PULSE 79
[2018-04-04] MEDS: Tamsulosin HCl 0.4 MG Capsule PO (18:18)
[2018-04-04] MEDS: Amitriptyline 25 MG Tablet 50 MG PO (21:40)
[2018-04-04] MEDS: Atorvastatin Calcium 40 MG Tablet PO (21:41)
[2018-04-05] MEDS: Senna Tablet 2 TABLET PO ×2 (06:09→17:03)
[2018-04-05] MEDS: Doxycycline 100 MG CAPSULE PO ×2 (06:09→17:04)
[2018-04-05] MEDS: dilTIAZem CD 180 MG Capsule PO ×2 (06:09→17:04)
[2018-04-05 06:10] VITALS: BP 144/78; PULSE 81
[2018-04-05] MEDS: Enoxaparin 30 MG/0.3 ML Syringe SC (06:10)
[2018-04-05] MEDS: Pantoprazole Sodium 40 MG Tablet PO (06:10)
[2018-04-05] MEDS: Gabapentin 300 MG Capsule PO ×3 (06:10→21:27)
[2018-04-05] MEDS: Metoprolol Tartrate 25 MG Tablet PO ×2 (06:10→17:03)
[2018-04-05] MEDS: Polyethylene Glycol 3350 17 GM PACKET PO (06:11)
[2018-04-05] MEDS: 0.9% NaCl PICC Flush IV (06:15)
[2018-04-05] MEDS: 0.9% Normal Saline 1,000 ML 125 ML IV ×3 (06:22→21:23)
[2018-04-05 06:46] LABS: Bedside Glucose 172 mg/dL (70-110)
[2018-04-05 07:08] LABS: Anion Gap 9 (5-15); BUN 50 mg/dL (7-18); BUN/Creat Ratio 30.5 RATIO (10-20); Calcium,Total 8.8 mg/dL (8.5-10.1); Chloride 108 mmol/L (98-107); Creatinine, Serum 1.64 mg/dL (0.55-1.02); EST Glomerular Filtration Rate 34 mL/min (>60); Est Glom Filt Rate - Afr Amer 41 mL/min (>60); Estimated Creatinine Clearance 34.15 ml/min; Glucose 138 mg/dL (74-106); Potassium 4.5 mmol/L (3.5-5.1); Sodium Level 140 mmol/L (136-145)
[2018-04-05] MEDS: Glucerna Shake 120 ML LIQUID PO ×3 (08:09→17:03)
[2018-04-05] MEDS: Iron Polysaccharide Complex 150 MG CAPSULE PO (08:10)
--- NOTE | 2018-04-05 09:57 | PCA ---
Patient was observed transfering from C without assist and baring weight to left foot and leg patient was also observed lifting left leg into bed by lifting leg by external fixator
--- NOTE | 2018-04-05 14:43 | NURSING ---
pt instructed and encouraged again not to put weight to LLE or pull on external fixator
[2018-04-05 15:35] VITALS: BP 147/68; PULSE 81; RESP 18; TEMP 35.6; O2SAT 99
[2018-04-05 17:03] VITALS: PULSE 81
[2018-04-05] MEDS: Tamsulosin HCl 0.4 MG Capsule PO (17:04)
[2018-04-05] MEDS: oxyCODONE 5 MG Tablet PO (21:26)
[2018-04-05] MEDS: Amitriptyline 25 MG Tablet 50 MG PO (21:27)
[2018-04-05] MEDS: Atorvastatin Calcium 40 MG Tablet PO (21:28)
[2018-04-06] MEDS: 0.9% Normal Saline 1,000 ML 125 ML IV (05:47)
[2018-04-06] MEDS: 0.9% NaCl PICC Flush IV ×2 (05:52→21:02)
[2018-04-06] MEDS: Gabapentin 300 MG Capsule PO ×3 (05:56→20:57)
[2018-04-06] MEDS: Senna Tablet 2 TABLET PO ×2 (05:56→17:23)
[2018-04-06] MEDS: Enoxaparin 30 MG/0.3 ML Syringe SC (05:56)
[2018-04-06 05:57] VITALS: BP 133/95; PULSE 88
[2018-04-06] MEDS: Pantoprazole Sodium 40 MG Tablet PO (05:57)
[2018-04-06] MEDS: Metoprolol Tartrate 25 MG Tablet PO ×2 (05:57→17:23)
[2018-04-06] MEDS: Doxycycline 100 MG CAPSULE PO ×2 (05:58→17:23)
[2018-04-06] MEDS: dilTIAZem CD 180 MG Capsule PO ×2 (05:58→17:23)
[2018-04-06] MEDS: Polyethylene Glycol 3350 17 GM PACKET PO (05:58)
[2018-04-06 06:33] LABS: Anion Gap 10 (5-15); BUN 50 mg/dL (7-18); BUN/Creat Ratio 29.6 RATIO (10-20); Calcium,Total 8.8 mg/dL (8.5-10.1); Chloride 108 mmol/L (98-107); Creatinine, Serum 1.69 mg/dL (0.55-1.02); EST Glomerular Filtration Rate 33 mL/min (>60); Est Glom Filt Rate - Afr Amer 40 mL/min (>60); Estimated Creatinine Clearance 33.14 ml/min; Glucose 143 mg/dL (74-106); Potassium 4.2 mmol/L (3.5-5.1); Sodium Level 140 mmol/L (136-145)
[2018-04-06 06:45] LABS: Bedside Glucose 130 mg/dL (70-110)
[2018-04-06] MEDS: Glucerna Shake 120 ML LIQUID PO ×3 (08:15→17:24)
[2018-04-06] MEDS: Acetaminophen 500 MG Tablet 1000 MG PO ×2 (08:20→21:02)
[2018-04-06] MEDS: Iron Polysaccharide Complex 150 MG CAPSULE PO (09:31)
[2018-04-06] MEDS: traMADol 50 MG Tablet PO ×2 (09:33→17:29)
--- NOTE | 2018-04-06 11:02 | NURSING ---
dressing to skin graft harvest site to right thigh coming loose. Dr. Covington updated. NO to cover site with ABD pad and cover with MIGUEL wrap. Dr. Covington will be in to patient tomorrow.
--- NOTE | 2018-04-06 13:13 | CASEMGMT ---
Social Work Spoke with resident in room. This social sciences chair communicating that discharge date has been set for 04/09/18. Resident is agreeable to discharge date and plans to discharge to home with mom at time of discharge. Team is recommending for patient to discharge to home with continued physical and occupational therapy as well as chcf and a social sciences chair. Resident requesting for home health care to be set up through [facility] ([facility]). Resident reporting to have a wheelchair, walker, and bedside commode already set up within the home. Resident requesting for transportation to be set up through a wheelchair van on day of discharge. Resident planning to notifying family in regards to discharge date/plan. Resident now current with [employer] services and has a meeting with Deyanira on 04/08/18. [facility] are meeting this month to discuss whether or not resident will be approved the vertical lift to enter resident's home. Resident becoming tearful while discussing discharge date, reporting I am just happy to be going home. Emotional support and active listening provided to resident during conversation. Support given. [facility] This socia worker making referral for physical and occupational therapy as well as chcf and a social sciences chair. Order to be completed. Telephone call to [facility]. Transportation set up for 04/09/18 at 12:30pm. Transportation form completed and placed with resident discharge information. Proposed discharge date: 04/09/18 PLAN: Discharge to home with family and home health care. JULIA Han, FAMILY CONSUMER SCIENCE TEACHER
--- NOTE | 2018-04-06 13:45 | CASEMGMT ---
Brief interview for mental status (BIMS) and resident mood interview (PHQ-9) completed on this day. BIMS score 15/15. PHQ-9 score .
[2018-04-06 16:00] VITALS: BP 152/96; PULSE 88; RESP 14; TEMP 36.6; O2SAT 99
[2018-04-06 17:23] VITALS: PULSE 88
[2018-04-06] MEDS: Tamsulosin HCl 0.4 MG Capsule PO (17:23)
--- NOTE | 2018-04-06 18:09 | NURSING ---
NO to d/c IVF.
--- NOTE | 2018-04-06 20:42 | PCM.DC ---
- Discharge Diagnoses Current Active Problems: Current Active and Chronic Problems (Last Updated 03/17/18 @ 14:59 by Candi Covington DPM) Alopecia (Chronic) alopecia overlying soft tissue mass right temporal parietal scalp Head mass (Chronic) 8 cm soft tissue mass right temporal parietal scalp with overlying alopecia Open left ankle fracture (Acute) Anemia (Acute) Rheumatoid arthritis (Chronic) Gout (Chronic) Tinea unguium (Chronic) Type 2 diabetes mellitus with diabetic polyneuropathy (Chronic) You will use the following diet at home:: No restrictions, Regular Your food should be the consistency of: Regular Your liquids should be the consistency of: Regular/Thin Weight Bearing Status: No weight bearing - Left lower extremity. Call your doctor if you observe: Fever of 101 or Higher, Inability to urinate, Inability to have a bowel movement, Shortness of breath, Chest pain, Uncontrolled pain Allergies/Adverse Reactions: Allergies aspirin Allergy (Verified 03/09/18 09:34) Hives latex Allergy (Verified 03/09/18 09:34) Hives Penicillins Allergy (Verified 03/09/18 09:34) Hives naproxen [From Aleve] Adverse Reaction (Severe, Verified 03/09/18 09:34) Kidney disease Stage 3 Medications to take at Discharge Amitriptyline HCl 75 mg PO QHS 12/03/16 cholecalciferol (vitamin D3) 2,000 unit capsule 2,000 unit PO DAILY 05/27/17 hydroxychloroquine 200 mg tablet 200 mg PO QDAY 05/27/17 omega-3 fatty acids 1,000 mg capsule 1,000 mg PO QDAY 05/27/17 gabapentin 300 mg capsule 300 mg PO TID cap 08/19/17 ipratropium 20 mcg-albuterol 100 mcg/actuation mist for inhalation 1 inh INHALATION Q6H PRN #4 g 08/22/17 Atorvastatin Calcium [Lipitor] 40 mg PO QDAY 01/13/18 Cyclobenzaprine HCl 10 mg PO TID PRN PRN 01/13/18 Multivit-Min/Iron/Folic/Lutein [Centrum Silver Women Tablet] 1 tab PO DAILY 01/13/18 traMADol [Ultram] 50 mg PO Q4H PRN PRN 03/04/18 Pantoprazole Sodium [Protonix] 40 mg PO DAILY 03/10/18 Acetaminophen [Tylenol] 1,000 mg PO Q6H PRN PRN tablet 04/06/18 Cholecalciferol (VIT D3) [Vitamin D3] 2,000 unit PO DAILY tablet 04/06/18 Cyclobenzaprine [Flexeril] 10 mg PO TID tablet 04/06/18 Diltiazem CD [Cardizem CD] 180 mg PO Q12 #60 capsule 04/06/18 Doxycycline 100 mg PO BID #60 capsule 04/06/18 Gabapentin [Neurontin] 300 mg PO TID capsule 04/06/18 Iron Polysaccharide Complex [Ferrex 150] 150 mg PO DAILYCM #30 capsule 04/06/18 Menthol/Lanolin/Calamine/Znox [Calmoseptine Ointment] 1 applic TOPICAL BID PRN PRN tube 04/06/18 Metoprolol Tartrate [Lopressor (beta feliberto)] 25 mg PO BID #60 tablet 04/06/18 Mineral Oil/Petrolatum,White [Eucerin] 1 applic TOPICAL 0600,2200 jar 04/06/18 Nutritional Supplement [Pancho - [place]ANGE FLAVOR] 1 packet PO BIDCM #60 packet 04/06/18 Nystatin Powder [Mycostatin Powder] 1 applic TOPICAL BID PRN PRN bottle 04/06/18 Oxycodone [Oxyir] 5 mg PO Q4H PRN PRN 5 Days #30 tab 04/06/18 Pantoprazole Sodium [Protonix] 40 mg PO DAILY #30 tablet 04/06/18 Polyethylene Glycol 3350 [Miralax] 17 gm PO DAILY #30 packet 04/06/18 Senna [Senokot] 2 tablet PO BID #120 tablet 04/06/18 Sodium Chloride 0.65% [[place] Nasal [place]] 1 spray NASAL TID PRN PRN spray.btl 04/06/18 Tamsulosin HCl [Flomax] 0.4 mg PO DAILY@1730 #30 capsule 04/06/18 Zolpidem Tartrate [Ambien] 5 mg PO QHS PRN PRN #30 tab 04/06/18 traMADol [Ultram] 50 mg PO TID PRN PRN 5 Days #30 tab 04/06/18 The following prescriptions were given: Oxycodone [Oxyir] 5 mg PO Q4H PRN PRN 5 Days #30 tab PRN Reason: Moderate Pain (4-5/10) Diltiazem CD [Cardizem CD] 180 mg PO Q12 #60 capsule Iron Polysaccharide Complex [Ferrex 150] 150 mg PO DAILYCM #30 capsule Pantoprazole Sodium [Protonix] 40 mg PO DAILY #30 tablet Polyethylene Glycol 3350 [Miralax] 17 gm PO DAILY #30 packet Tamsulosin HCl [Flomax] 0.4 mg PO DAILY@1730 #30 capsule traMADol [Ultram] 50 mg PO TID PRN PRN 5 Days #30 tab PRN Reason: Moderate Pain (4-08/07) Zolpidem Tartrate [Ambien] 5 mg PO QHS PRN PRN #30 tab PRN Reason: sleep Doxycycline 100 mg PO BID #60 capsule Metoprolol Tartrate [Lopressor (beta feliberto)] 25 mg PO BID #60 tablet Nutritional Supplement [Pancho - [place] FLAVOR] 1 packet PO BIDCM #60 packet Senna [Senokot] 2 tablet PO BID #120 tablet Orders to be completed after discharge: Ankle min 3 Views [RAD] Location: None Selected Foot 2 Views [RAD] Location: None Selected Tibia & Fibula 2 Views [RAD] Location: None Selected Primary Care Physician: Pia Newton MD [Primary Care Provider] - Please follow up with your Primary Care Physician in: 1 week. Test Results: Test results from this visit will be discussed in further detail at your follow-up appointment, if applicable. Please Follow Up With: Candi Covington DPM When: 1 week. Please Follow Up With: Leny Jimenez MD When: 1 week. Please Follow Up With: Dr Bejarano When: 1 week. Please Follow Up With: Tony Ray MD When: 1 week. Please Follow Up With: Milton Tompkins MD When: 1 week. Proposed Discharge Date: 04/09/18
--- NOTE | 2018-04-06 20:44 | PCM.DC.SUM ---
Discharge Date and Diagnosis - Problem List Patient Problems: Active and Suspected Problems (Last Updated 03/17/18 @ 14:59 by Candi Covington DPM) Open left ankle fracture (Acute) Anemia (Acute) Date of Admission: 01/21/18 Date of Discharge: 04/09/18 - Primary Discharge Diagnosis Active and Suspected Problems (Last Updated 03/17/18 @ 14:59 by Candi Covington DPM) Open left ankle fracture (Acute) Anemia (Acute) - Secondary Discharge Diagnosis Chronic Problems (Last Updated 03/17/18 @ 14:59 by Candi Covington DPM) Alopecia (Chronic) alopecia overlying soft tissue mass right temporal parietal scalp Head mass (Chronic) 8 cm soft tissue mass right temporal parietal scalp with overlying alopecia Rheumatoid arthritis (Chronic) Gout (Chronic) Tinea unguium (Chronic) Type 2 diabetes mellitus with diabetic polyneuropathy (Chronic) Peripheral neuropathy (Chronic) Arthritis (Chronic) Hypertension (Chronic) High cholesterol (Chronic) Hypertension (Chronic) Hyperlipidemia (Chronic) Type 2 diabetes mellitus (Chronic) 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) Uncontrolled type 2 diabetes mellitus (Chronic) Non-pressure chronic ulcer of other part of right foot limited to breakdown of skin (Chronic) Tobacco use disorder (Chronic) Pure hypercholesterolemia (Chronic) History of hypertension (Chronic) Type 2 diabetes mellitus with diabetic polyneuropathy (Chronic) History of gout (Chronic) Obesity (Chronic) COPD (chronic obstructive pulmonary disease) (Chronic) Chronic renal insufficiency, stage III (moderate) (Chronic) Type 2 diabetes mellitus with foot ulcer (Chronic) History of diabetes mellitus, type II (Chronic) Hospital Course and Treatment Imaging Results: 04/02/18 17:04 Diet: Regular Diet Is pt able to select menu?: Yes Clinical Impression(s) from Imaging Studies Elbow X-Ray 01/22/18 12:01 IMPRESSION: Joint effusion. Electronically Signed: Mahesh Olivia MD at 14:40 EDT Tel [phone], Service support , Shoulder X-Ray 01/22/18 12:01 IMPRESSION: Arthrosis of the acromioclavicular joint. Electronically Signed: Mahesh Olivia MD at 14:40 EDT Tel [phone], Service support , KUB X-Ray 02/13/18 09:13 IMPRESSION: 1. Nonspecific bowel gas pattern. No free gas. 2. Atherosclerotic calcific plaquing of the abdominal aorta without overt aneurysm. However, this portends moderately significant risk for future cardiovascular event, Abdominal Aortic Calcific Deposits Are an Important Predictor of Vascular Morbidity and Mortality; José Miguel Mcmullen, et al. Circulation, May 2000;103:0510-0468. 3. 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 Electronically Signed: Parrish Morillo MD at 11:17 EST , Service support , Chest X-Ray 02/17/18 12:38 IMPRESSION: Mild cardiomegaly. Mild degree of vascular congestion. Electronically Signed: Mahesh Olivia MD at 13:36 EST Tel [phone], Service support , Knee X-Ray 03/17/18 12:23 IMPRESSION: Limited two-view study of the knee shows a small effusion and is otherwise negative. Electronically Signed: David Garcia MD at 17:16 EST , Service support , Foot X-Ray 03/20/18 20:33 IMPRESSION: Documentation of readjustment of the Ilizarov external fixator. Electronically Signed: Sunshine Lopez MD at 3:16 EST , Service support , Tibia/Fibula X-Ray 03/20/18 20:33 IMPRESSION: Documentation of readjustment of the external fixator. Electronically Signed: Sunshine Lopez MD at 3:12 EST , Service support , Ankle X-Ray 03/20/18 21:22 IMPRESSION: Documentation of adjustment of external fixator. Electronically Signed: Sunshine Lopez MD at 3:06 EST , Service support , Labs (Last 48 Hours) 04/05/18 04/05/18 04/06/18 06:15 06:31 05:50 Sodium 140 140 Potassium 4.5 4.2 Chloride 108 H 108 H Carbon Dioxide 23.0 22.0 Anion Gap 9 10 BUN 50 H 50 H Creatinine 1.64 H 1.69 H Estim Creat Clear Calc 34.15 33.14 Est GFR (MDRD) Af Amer 41 L 40 L Est GFR (MDRD) Non-Af 34 L 33 L BUN/Creatinine Ratio 30.5 H 29.6 H Glucose 138 H 143 H Calcium 8.8 8.8 POC Glucose 172 H 04/06/18 06:32 Sodium Potassium Chloride Carbon Dioxide Anion Gap BUN Creatinine Estim Creat Clear Calc Est GFR (MDRD) Af Amer Est GFR (MDRD) Non-Af BUN/Creatinine Ratio Glucose Calcium POC Glucose 130 H Operations: - - See operative notes. Summary of Care Provided: The patient is a 58 year old Female with below past medical history hospitalized for osteomyelitis of left ankle after left ankle fracture, ORIF, underwent debridement per Dr. Covington 01/20/2018, admitted to TCU with debility, here for rehabilitation, strengthening, intravenous antibiotics, prior to discharge home. Discharge home with family, and Home Health Care. Patient Problems: Active and Suspected Problems (Last Updated 03/17/18 @ 14:59 by Candi Covington DPM) Open left ankle fracture (Acute) Anemia (Acute) - Physical Exam Vital Signs Temp Pulse Resp BP Pulse Ox 97.9 F 88 14 152/96 H 99 04/06/18 16:00 04/06/18 17:23 04/06/18 16:00 04/06/18 16:00 04/06/18 16:00 Oxygen Flow Rate (L/min) 2 Oxygen Delivery Method Room Air Weight: 109.032 kg Body Mass Index (BMI) 37.3 Intake and Output for Last 24 Hours 04/04/18 04/05/18 04/06/18 23:59 23:59 23:59 Intake Total 1959 / 1959 5005 / 5005 3841 / 3841 Output Total 4850 / 4850 6275 / 6275 3900 / 3900 Balance -2890 / -2890 -1270 / -1270 -59 / -59 Laboratory Tests Past 24 Hrs 04/06/18 05:50 Sodium 140 Potassium 4.2 Chloride 108 H Carbon Dioxide 22.0 Anion Gap 10 BUN 50 H Creatinine 1.69 H Estim Creat Clear Calc 33.14 Est GFR (MDRD) Af Amer 40 L Est GFR (MDRD) Non-Af 33 L BUN/Creatinine Ratio 29.6 H Glucose 143 H Calcium 8.8 POC Glucose 04/06/18 06:32 POC Glucose 130 H Discharge Diet: No Restrictions Weight Bearing Status: No weight bearing - Left lower extremity. Keep extremity elevated above heart level: Left Leg Call your doctor if you observe: Fever of 101 or Higher, Inability to urinate, Inability to have a bowel movement, Shortness of breath, Chest pain, Uncontrolled pain Home Medications: Medications to take at Discharge Amitriptyline HCl 75 mg PO QHS 12/03/16 cholecalciferol (vitamin D3) 2,000 unit capsule 2,000 unit PO DAILY 05/27/17 hydroxychloroquine 200 mg tablet 200 mg PO QDAY 05/27/17 omega-3 fatty acids 1,000 mg capsule 1,000 mg PO QDAY 05/27/17 gabapentin 300 mg capsule 300 mg PO TID cap 08/19/17 ipratropium 20 mcg-albuterol 100 mcg/actuation mist for inhalation 1 inh INHALATION Q6H PRN #4 g 08/22/17 Atorvastatin Calcium [Lipitor] 40 mg PO QDAY 01/13/18 Cyclobenzaprine HCl 10 mg PO TID PRN PRN 01/13/18 Multivit-Min/Iron/Folic/Lutein [Centrum Silver Women Tablet] 1 tab PO DAILY 01/13/18 traMADol [Ultram] 50 mg PO Q4H PRN PRN 03/04/18 Pantoprazole Sodium [Protonix] 40 mg PO DAILY 03/10/18 Acetaminophen [Tylenol] 1,000 mg PO Q6H PRN PRN tablet 04/06/18 Cholecalciferol (VIT D3) [Vitamin D3] 2,000 unit PO DAILY tablet 04/06/18 Cyclobenzaprine [Flexeril] 10 mg PO TID tablet 04/06/18 Diltiazem CD [Cardizem CD] 180 mg PO Q12 #60 capsule 04/06/18 Doxycycline 100 mg PO BID #60 capsule 04/06/18 Gabapentin [Neurontin] 300 mg PO TID capsule 04/06/18 Iron Polysaccharide Complex [Ferrex 150] 150 mg PO DAILYCM #30 capsule 04/06/18 Menthol/Lanolin/Calamine/Znox [Calmoseptine Ointment] 1 applic TOPICAL BID PRN PRN tube 04/06/18 Metoprolol Tartrate [Lopressor (beta feliberto)] 25 mg PO BID #60 tablet 04/06/18 Mineral Oil/Petrolatum,White [Eucerin] 1 applic TOPICAL 0600,2200 jar 04/06/18 Nutritional Supplement [Pancho - ORANGE FLAVOR] 1 packet PO BIDCM #60 packet 04/06/18 Nystatin Powder [Mycostatin Powder] 1 applic TOPICAL BID PRN PRN bottle 04/06/18 Oxycodone [Oxyir] 5 mg PO Q4H PRN PRN 5 Days #30 tab 04/06/18 Pantoprazole Sodium [Protonix] 40 mg PO DAILY #30 tablet 04/06/18 Polyethylene Glycol 3350 [Miralax] 17 gm PO DAILY #30 packet 04/06/18 Senna [Senokot] 2 tablet PO BID #120 tablet 04/06/18 Sodium Chloride 0.65% [[place] Nasal [place]] 1 spray NASAL TID PRN PRN spray.btl 04/06/18 Tamsulosin HCl [Flomax] 0.4 mg PO DAILY@1730 #30 capsule 04/06/18 Zolpidem Tartrate [Ambien] 5 mg PO QHS PRN PRN #30 tab 04/06/18 traMADol [Ultram] 50 mg PO TID PRN PRN 5 Days #30 tab 04/06/18 Following Prescrptions Were Given to Patient: Oxycodone [Oxyir] 5 mg PO Q4H PRN PRN 5 Days #30 tab PRN Reason: Moderate Pain (4-5/10) Diltiazem CD [Cardizem CD] 180 mg PO Q12 #60 capsule Iron Polysaccharide Complex [Ferrex 150] 150 mg PO DAILYCM #30 capsule Pantoprazole Sodium [Protonix] 40 mg PO DAILY #30 tablet Polyethylene Glycol 3350 [Miralax] 17 gm PO DAILY #30 packet Tamsulosin HCl [Flomax] 0.4 mg PO DAILY@1730 #30 capsule traMADol [Ultram] 50 mg PO TID PRN PRN 5 Days #30 tab PRN Reason: Moderate Pain (4-5/10) Zolpidem Tartrate [Ambien] 5 mg PO QHS PRN PRN #30 tab PRN Reason: sleep Doxycycline 100 mg PO BID #60 capsule Metoprolol Tartrate [Lopressor (beta feliberto)] 25 mg PO BID #60 tablet Nutritional Supplement [Pancho - ORANGE FLAVOR] 1 packet PO BIDCM #60 packet Senna [Senokot] 2 tablet PO BID #120 tablet Other Amb Orders: Ankle min 3 Views [RAD] Location: None Selected Foot 2 Views [RAD] Location: None Selected Tibia & Fibula 2 Views [RAD] Location: None Selected Primary Care Physician: Pia Newton MD [Primary Care Provider] - Please follow up with your Primary Care Physician in: 1 week. Please Follow Up With: Candi Covington DPM When: 1 week. Please Follow Up With: Leny Jimenez MD When: 1 week. Please Follow Up With: Dr Bejarano When: 1 week. Please Follow Up With: Tony Ray MD When: 1 week. Please Follow Up With: Milton Tompkins MD When: 1 week. Disposition: Home with Home Health Minutes spent on discharge:: 35 Patient Condition:: Stable Medical Necessity - Tobacco Use Smoking Status: Former smoker Tobacco Use: Non-smoker Meaningful Use Info Meaningful Use Diagnoses (Choose all that apply): None applicable
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
--- NOTE | 2018-04-06 20:47 | DS.PCM_ITS ---
Discharge Date and Diagnosis - Problem List Patient Problems: Active and Suspected Problems (Last Updated 03/17/18 @ 14:59 by Candi Covington DPM) Open left ankle fracture (Acute) Anemia (Acute) Date of Admission: 01/21/18 Date of Discharge: 04/09/18 - Primary Discharge Diagnosis Active and Suspected Problems (Last Updated 03/17/18 @ 14:59 by Candi Covington DPM) Open left ankle fracture (Acute) Anemia (Acute) - Secondary Discharge Diagnosis Chronic Problems (Last Updated 03/17/18 @ 14:59 by Candi Covington DPM) Alopecia (Chronic) alopecia overlying soft tissue mass right temporal parietal scalp Head mass (Chronic) 8 cm soft tissue mass right temporal parietal scalp with overlying alopecia Rheumatoid arthritis (Chronic) Gout (Chronic) Tinea unguium (Chronic) Type 2 diabetes mellitus with diabetic polyneuropathy (Chronic) Peripheral neuropathy (Chronic) Arthritis (Chronic) Hypertension (Chronic) High cholesterol (Chronic) Hypertension (Chronic) Hyperlipidemia (Chronic) Type 2 diabetes mellitus (Chronic) 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) Uncontrolled type 2 diabetes mellitus (Chronic) Non-pressure chronic ulcer of other part of right foot limited to breakdown of skin (Chronic) Tobacco use disorder (Chronic) Pure hypercholesterolemia (Chronic) History of hypertension (Chronic) Type 2 diabetes mellitus with diabetic polyneuropathy (Chronic) History of gout (Chronic) Obesity (Chronic) COPD (chronic obstructive pulmonary disease) (Chronic) Chronic renal insufficiency, stage III (moderate) (Chronic) Type 2 diabetes mellitus with foot ulcer (Chronic) History of diabetes mellitus, type II (Chronic) Hospital Course and Treatment Imaging Results: 04/02/18 17:04 Diet: Regular Diet Is pt able to select menu?: Yes Clinical Impression(s) from Imaging Studies Elbow X-Ray 01/22/18 12:01 IMPRESSION: Joint effusion. Electronically Signed: Mahesh Olivia MD at 14:40 EDT Tel [phone], Service support , Shoulder X-Ray 01/22/18 12:01 IMPRESSION: Arthrosis of the acromioclavicular joint. Electronically Signed: Mahesh Olivia MD at 14:40 EDT Tel [phone], Service support , KUB X-Ray 02/13/18 09:13 IMPRESSION: 1. Nonspecific bowel gas pattern. No free gas. 2. Atherosclerotic calcific plaquing of the abdominal aorta without overt aneurysm. However, this portends moderately significant risk for future cardiovascular event, Abdominal Aortic Calcific Deposits Are an Important Predictor of Vascular Morbidity and Mortality; José Miguel Mcmullen, et al. Circulation, May 2000;103:1351-0561. 3. 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 Electronically Signed: Parrish Morillo MD at 11:17 EST , Service support , Chest X-Ray 02/17/18 12:38 IMPRESSION: Mild cardiomegaly. Mild degree of vascular congestion. Electronically Signed: Mahesh Olivia MD at 13:36 EST Tel [phone], Service support , Knee X-Ray 03/17/18 12:23 IMPRESSION: Limited two-view study of the knee shows a small effusion and is otherwise negative. Electronically Signed: David Garcia MD at 17:16 EST , Service support , Foot X-Ray 03/20/18 20:33 IMPRESSION: Documentation of readjustment of the Ilizarov external fixator. Electronically Signed: Sunshine Lopez MD at 3:16 EST , Service support , Tibia/Fibula X-Ray 03/20/18 20:33 IMPRESSION: Documentation of readjustment of the external fixator. Electronically Signed: Sunshine Lopez MD at 3:12 EST , Service support , Ankle X-Ray 03/20/18 21:22 IMPRESSION: Documentation of adjustment of external fixator. Electronically Signed: Sunshine Lopez MD at 3:06 EST , Service support , Labs (Last 48 Hours) 04/05/18 04/05/18 04/06/18 06:15 06:31 05:50 Sodium 140 140 Potassium 4.5 4.2 Chloride 108 H 108 H Carbon Dioxide 23.0 22.0 Anion Gap 9 10 BUN 50 H 50 H Creatinine 1.64 H 1.69 H Estim Creat Clear Calc 34.15 33.14 Est GFR (MDRD) Af Amer 41 L 40 L Est GFR (MDRD) Non-Af 34 L 33 L BUN/Creatinine Ratio 30.5 H 29.6 H Glucose 138 H 143 H Calcium 8.8 8.8 POC Glucose 172 H 04/06/18 06:32 Sodium Potassium Chloride Carbon Dioxide Anion Gap BUN Creatinine Estim Creat Clear Calc Est GFR (MDRD) Af Amer Est GFR (MDRD) Non-Af BUN/Creatinine Ratio Glucose Calcium POC Glucose 130 H Operations: - - See operative notes. Summary of Care Provided: The patient is a 58 year old Female with below past medical history hospitalized for osteomyelitis of left ankle after left ankle fracture, ORIF, underwent debridement per Dr. Covington 01/20/2018, admitted to TCU with debility, here for rehabilitation, strengthening, intravenous antibiotics, prior to discharge home. Discharge home with family, and Home Health Care. Patient Problems: Active and Suspected Problems (Last Updated 03/17/18 @ 14:59 by Candi Covington DPM) Open left ankle fracture (Acute) Anemia (Acute) - Physical Exam Vital Signs Temp Pulse Resp BP Pulse Ox 97.9 F 88 14 152/96 H 99 04/06/18 16:00 04/06/18 17:23 04/06/18 16:00 04/06/18 16:00 04/06/18 16:00 Oxygen Flow Rate (L/min) 2 Oxygen Delivery Method Room Air Weight: 109.032 kg Body Mass Index (BMI) 37.3 Intake and Output for Last 24 Hours 04/04/18 04/05/18 04/06/18 23:59 23:59 23:59 Intake Total 1959 / 1959 5005 / 5005 3841 / 3841 Output Total 4850 / 4850 6275 / 6275 3900 / 3900 Balance -2890 / -2890 -1270 / -1270 -59 / -59 Laboratory Tests Past 24 Hrs 04/06/18 05:50 Sodium 140 Potassium 4.2 Chloride 108 H Carbon Dioxide 22.0 Anion Gap 10 BUN 50 H Creatinine 1.69 H Estim Creat Clear Calc 33.14 Est GFR (MDRD) Af Amer 40 L Est GFR (MDRD) Non-Af 33 L BUN/Creatinine Ratio 29.6 H Glucose 143 H Calcium 8.8 POC Glucose 04/06/18 06:32 POC Glucose 130 H Discharge Diet: No Restrictions Weight Bearing Status: No weight bearing - Left lower extremity. Keep extremity elevated above heart level: Left Leg Call your doctor if you observe: Fever of 101 or Higher, Inability to urinate, Inability to have a bowel movement, Shortness of breath, Chest pain, Uncontrolled pain Home Medications: Medications to take at Discharge Amitriptyline HCl 75 mg PO QHS 12/03/16 cholecalciferol (vitamin D3) 2,000 unit capsule 2,000 unit PO DAILY 05/27/17 hydroxychloroquine 200 mg tablet 200 mg PO QDAY 05/27/17 omega-3 fatty acids 1,000 mg capsule 1,000 mg PO QDAY 05/27/17 gabapentin 300 mg capsule 300 mg PO TID cap 08/19/17 ipratropium 20 mcg-albuterol 100 mcg/actuation mist for inhalation 1 inh INHALATION Q6H PRN #4 g 08/22/17 Atorvastatin Calcium [Lipitor] 40 mg PO QDAY 01/13/18 Cyclobenzaprine HCl 10 mg PO TID PRN PRN 01/13/18 Multivit-Min/Iron/Folic/Lutein [Centrum Silver Women Tablet] 1 tab PO DAILY 01/13/18 traMADol [Ultram] 50 mg PO Q4H PRN PRN 03/04/18 Pantoprazole Sodium [Protonix] 40 mg PO DAILY 03/10/18 Acetaminophen [Tylenol] 1,000 mg PO Q6H PRN PRN tablet 04/06/18 Cholecalciferol (VIT D3) [Vitamin D3] 2,000 unit PO DAILY tablet 04/06/18 Cyclobenzaprine [Flexeril] 10 mg PO TID tablet 04/06/18 Diltiazem CD [Cardizem CD] 180 mg PO Q12 #60 capsule 04/06/18 Doxycycline 100 mg PO BID #60 capsule 04/06/18 Gabapentin [Neurontin] 300 mg PO TID capsule 04/06/18 Iron Polysaccharide Complex [Ferrex 150] 150 mg PO DAILYCM #30 capsule 04/06/18 Menthol/Lanolin/Calamine/Znox [Calmoseptine Ointment] 1 applic TOPICAL BID PRN PRN tube 04/06/18 Metoprolol Tartrate [Lopressor (beta feliberto)] 25 mg PO BID #60 tablet 04/06/18 Mineral Oil/Petrolatum,White [Eucerin] 1 applic TOPICAL 0600,2200 jar 04/06/18 Nutritional Supplement [Pancho - ORANGE FLAVOR] 1 packet PO BIDCM #60 packet 04/06/18 Nystatin Powder [Mycostatin Powder] 1 applic TOPICAL BID PRN PRN bottle 04/06/18 Oxycodone [Oxyir] 5 mg PO Q4H PRN PRN 5 Days #30 tab 04/06/18 Pantoprazole Sodium [Protonix] 40 mg PO DAILY #30 tablet 04/06/18 Polyethylene Glycol 3350 [Miralax] 17 gm PO DAILY #30 packet 04/06/18 Senna [Senokot] 2 tablet PO BID #120 tablet 04/06/18 Sodium Chloride 0.65% [Rock Nasal [place]] 1 spray NASAL TID PRN PRN spray.btl 04/06/18 Tamsulosin HCl [Flomax] 0.4 mg PO DAILY@1730 #30 capsule 04/06/18 Zolpidem Tartrate [Ambien] 5 mg PO QHS PRN PRN #30 tab 04/06/18 traMADol [Ultram] 50 mg PO TID PRN PRN 5 Days #30 tab 04/06/18 Following Prescrptions Were Given to Patient: Oxycodone [Oxyir] 5 mg PO Q4H PRN PRN 5 Days #30 tab PRN Reason: Moderate Pain (4-5/10) Diltiazem CD [Cardizem CD] 180 mg PO Q12 #60 capsule Iron Polysaccharide Complex [Ferrex 150] 150 mg PO DAILYCM #30 capsule Pantoprazole Sodium [Protonix] 40 mg PO DAILY #30 tablet Polyethylene Glycol 3350 [Miralax] 17 gm PO DAILY #30 packet Tamsulosin HCl [Flomax] 0.4 mg PO DAILY@1730 #30 capsule traMADol [Ultram] 50 mg PO TID PRN PRN 5 Days #30 tab PRN Reason: Moderate Pain (4-5/10) Zolpidem Tartrate [Ambien] 5 mg PO QHS PRN PRN #30 tab PRN Reason: sleep Doxycycline 100 mg PO BID #60 capsule Metoprolol Tartrate [Lopressor (beta feliberto)] 25 mg PO BID #60 tablet Nutritional Supplement [Pancho - ORANGE FLAVOR] 1 packet PO BIDCM #60 packet Senna [Senokot] 2 tablet PO BID #120 tablet Other Amb Orders: Ankle min 3 Views [RAD] Location: None Selected Foot 2 Views [RAD] Location: None Selected Tibia & Fibula 2 Views [RAD] Location: None Selected Primary Care Physician: Pia Newton MD [Primary Care Provider] - Please follow up with your Primary Care Physician in: 1 week. Please Follow Up With: Candi Covington DPM When: 1 week. Please Follow Up With: Leny Jimenez MD When: 1 week. Please Follow Up With: Dr Bejarano When: 1 week. Please Follow Up With: Tony Ray MD When: 1 week. Please Follow Up With: Milton Tompkins MD When: 1 week. Disposition: Home with Home Health Minutes spent on discharge:: 35 Patient Condition:: Stable Medical Necessity - Tobacco Use Smoking Status: Former smoker Tobacco Use: Non-smoker Meaningful Use Info Meaningful Use Diagnoses (Choose all that apply): None applicable
[2018-04-06] MEDS: Amitriptyline 25 MG Tablet 50 MG PO (20:56)
[2018-04-06] MEDS: Atorvastatin Calcium 40 MG Tablet PO (20:56)
[2018-04-07] MEDS: dilTIAZem CD 180 MG Capsule PO ×2 (05:46→16:48)
[2018-04-07] MEDS: Gabapentin 300 MG Capsule PO ×3 (05:46→21:38)
[2018-04-07] MEDS: Enoxaparin 30 MG/0.3 ML Syringe SC (05:46)
[2018-04-07] MEDS: Doxycycline 100 MG CAPSULE PO ×2 (05:47→16:49)
[2018-04-07] MEDS: Pantoprazole Sodium 40 MG Tablet PO (05:47)
[2018-04-07] MEDS: Senna Tablet 2 TABLET PO ×2 (05:47→16:49)
[2018-04-07] MEDS: traMADol 50 MG Tablet PO ×2 (05:50→20:03)
[2018-04-07 05:52] VITALS: BP 168/90; PULSE 84
[2018-04-07] MEDS: Metoprolol Tartrate 25 MG Tablet PO ×2 (05:52→16:49)
[2018-04-07 06:09] LABS: Anion Gap 9 (5-15); BUN 56 mg/dL (7-18); BUN/Creat Ratio 31.5 RATIO (10-20); Calcium,Total 9.4 mg/dL (8.5-10.1); Chloride 106 mmol/L (98-107); Creatinine, Serum 1.78 mg/dL (0.55-1.02); EST Glomerular Filtration Rate 31 mL/min (>60); Est Glom Filt Rate - Afr Amer 37 mL/min (>60); Estimated Creatinine Clearance 31.46 ml/min; Glucose 130 mg/dL (74-106); Potassium 4.6 mmol/L (3.5-5.1); Sodium Level 139 mmol/L (136-145)
[2018-04-07 06:41] LABS: Bedside Glucose 136 mg/dL (70-110)
[2018-04-07] MEDS: Glucerna Shake 120 ML LIQUID PO ×3 (08:08→16:47)
[2018-04-07] MEDS: Iron Polysaccharide Complex 150 MG CAPSULE PO (08:08)
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
[2018-04-07 16:00] VITALS: BP 153/83; PULSE 85; RESP 20; TEMP 36.4; O2SAT 97
[2018-04-07] MEDS: Tamsulosin HCl 0.4 MG Capsule PO (16:48)
[2018-04-07 16:49] VITALS: BP 153/83; PULSE 85
[2018-04-07] MEDS: Atorvastatin Calcium 40 MG Tablet PO (21:38)
[2018-04-07] MEDS: Acetaminophen 500 MG Tablet 1000 MG PO (21:40)
[2018-04-07] MEDS: Amitriptyline 25 MG Tablet 50 MG PO (22:16)
[2018-04-07] MEDS: 0.9% NaCl PICC Flush IV (22:16)
[2018-04-08] MEDS: oxyCODONE 5 MG Tablet PO (01:41)
[2018-04-08] MEDS: Doxycycline 100 MG CAPSULE PO ×2 (05:22→17:04)
[2018-04-08] MEDS: dilTIAZem CD 180 MG Capsule PO ×2 (05:22→17:04)
[2018-04-08 05:23] VITALS: BP 140/67; PULSE 80
[2018-04-08] MEDS: Metoprolol Tartrate 25 MG Tablet PO ×2 (05:23→17:04)
[2018-04-08] MEDS: Enoxaparin 30 MG/0.3 ML Syringe SC (05:23)
[2018-04-08] MEDS: Pantoprazole Sodium 40 MG Tablet PO (05:24)
[2018-04-08] MEDS: Gabapentin 300 MG Capsule PO ×3 (05:24→21:00)
[2018-04-08] MEDS: Senna Tablet 2 TABLET PO ×2 (05:24→17:04)
[2018-04-08 06:31] LABS: Anion Gap 10 (5-15); BUN 65 mg/dL (7-18); BUN/Creat Ratio 30.4 RATIO (10-20); Chloride 105 mmol/L (98-107); Creatinine, Serum 2.14 mg/dL (0.55-1.02); EST Glomerular Filtration Rate 25 mL/min (>60); Est Glom Filt Rate - Afr Amer 30 mL/min (>60); Estimated Creatinine Clearance 26.17 ml/min; Glucose 128 mg/dL (74-106); Potassium 4.6 mmol/L (3.5-5.1); Sodium Level 140 mmol/L (136-145)
[2018-04-08 07:21] LABS: Bedside Glucose 138 mg/dL (70-110)
[2018-04-08] MEDS: Iron Polysaccharide Complex 150 MG CAPSULE PO (08:11)
[2018-04-08] MEDS: Glucerna Shake 120 ML LIQUID PO ×3 (08:11→17:04)
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
[2018-04-08 14:14] VITALS: RESP 16
[2018-04-08 15:53] VITALS: BP 140/66; PULSE 89; RESP 20; TEMP 36; O2SAT 97
[2018-04-08 17:04] VITALS: PULSE 89
[2018-04-08] MEDS: Tamsulosin HCl 0.4 MG Capsule PO (17:04)
[2018-04-08] MEDS: Amitriptyline 25 MG Tablet 50 MG PO (21:00)
[2018-04-08] MEDS: Atorvastatin Calcium 40 MG Tablet PO (21:00)
[2018-04-08] MEDS: Acetaminophen 500 MG Tablet 1000 MG PO (21:05)
[2018-04-08] MEDS: traMADol 50 MG Tablet PO (21:05)
[2018-04-09] MEDS: oxyCODONE 5 MG Tablet PO (00:04)
[2018-04-09] MEDS: Doxycycline 100 MG CAPSULE PO (05:17)
[2018-04-09] MEDS: dilTIAZem CD 180 MG Capsule PO (05:17)
[2018-04-09] MEDS: Senna Tablet 2 TABLET PO (05:17)
[2018-04-09] MEDS: Enoxaparin 30 MG/0.3 ML Syringe SC (05:17)
[2018-04-09] MEDS: Pantoprazole Sodium 40 MG Tablet PO (05:18)
[2018-04-09] MEDS: Gabapentin 300 MG Capsule PO ×2 (05:18→12:38)
[2018-04-09 05:21] VITALS: BP 131/82; PULSE 94
[2018-04-09] MEDS: Metoprolol Tartrate 25 MG Tablet PO (05:21)
[2018-04-09 06:37] LABS: Anion Gap 12 (5-15); BUN 74 mg/dL (7-18); BUN/Creat Ratio 33.3 RATIO (10-20); Calcium,Total 9.1 mg/dL (8.5-10.1); Chloride 105 mmol/L (98-107); Creatinine, Serum 2.22 mg/dL (0.55-1.02); EST Glomerular Filtration Rate 24 mL/min (>60); Est Glom Filt Rate - Afr Amer 29 mL/min (>60); Estimated Creatinine Clearance 25.23 ml/min; Glucose 133 mg/dL (74-106); Potassium 4.2 mmol/L (3.5-5.1); Sodium Level 139 mmol/L (136-145)
[2018-04-09 06:40] LABS: Bedside Glucose 142 mg/dL (70-110)
[2018-04-09] MEDS: Iron Polysaccharide Complex 150 MG CAPSULE PO (09:24)
[2018-04-09] MEDS: Glucerna Shake 120 ML LIQUID PO ×2 (09:24→12:38)
[2018-04-09 12:49] VITALS: BP 130/73; PULSE 67; RESP 15; TEMP 36.8; O2SAT 97
== END 2018-04-09 12:40 | disposition home health service (06) | DRG 949 ==
PROVIDERS: Internal Medicine Infectious Disease; Internal Medicine Nephrology; Podiatrist; Podiatrist Foot & Ankle Surgery; Admitting Provider Family Medicine Geriatric Medicine; Family Provider Internal Medicine; PCP Internal Medicine; Referring Provider Family Medicine Geriatric Medicine; Visit Provider Family Medicine Geriatric Medicine
DX: T84.69XD Infection and inflammatory reaction due to internal fixation device of other site, subsequent encounter (principal); L89.613 Pressure ulcer of right heel, stage 3; L89.223 Pressure ulcer of left hip, stage 3; M86.172 Other acute osteomyelitis, left ankle and foot; E11.52 Type 2 diabetes mellitus with diabetic peripheral angiopathy with gangrene; I96 Gangrene, not elsewhere classified; T82.898A Other specified complication of vascular prosthetic devices, implants and grafts, initial encounter; N17.9 Acute kidney failure, unspecified; S82.892E Other fracture of left lower leg, subsequent encounter for open fracture type I or II with routine healing; Y79.8 Miscellaneous orthopedic devices associated with adverse incidents, not elsewhere classified; E78.5 Hyperlipidemia, unspecified; B96.5 Pseudomonas (aeruginosa) (mallei) (pseudomallei) as the cause of diseases classified elsewhere; B95.62 Methicillin resistant Staphylococcus aureus infection as the cause of diseases classified elsewhere; J44.9 Chronic obstructive pulmonary disease, unspecified; M06.9 Rheumatoid arthritis, unspecified; E11.621 Type 2 diabetes mellitus with foot ulcer; E11.22 Type 2 diabetes mellitus with diabetic chronic kidney disease; I12.9 Hypertensive chronic kidney disease with stage 1 through stage 4 chronic kidney disease, or unspecified chronic kidney disease; N18.3 Chronic kidney disease, stage 3 (moderate); E11.42 Type 2 diabetes mellitus with diabetic polyneuropathy; E11.65 Type 2 diabetes mellitus with hyperglycemia; E66.9 Obesity, unspecified; Z68.37 Body mass index [BMI] 37.0-37.9, adult; Z71.3 Dietary counseling and surveillance; M10.9 Gout, unspecified; L97.511 Non-pressure chronic ulcer of other part of right foot limited to breakdown of skin; Z87.891 Personal history of nicotine dependence; Z23 Encounter for immunization; X58.XXXD Exposure to other specified factors, subsequent encounter; E11.622 Type 2 diabetes mellitus with other skin ulcer; B35.1 Tinea unguium; D64.9 Anemia, unspecified; Z89.421 Acquired absence of other right toe(s); R22.0 Localized swelling, mass and lump, head; L65.9 Nonscarring hair loss, unspecified; F32.9 Major depressive disorder, single episode, unspecified; M24.472 Recurrent dislocation, left ankle; Y82.8 Other medical devices associated with adverse incidents; Y92.129 Unspecified place in nursing home as the place of occurrence of the external cause; R35.8 Other polyuria
CPT/HCPCS: 36415; 36569; 71045; 71046; 73030; 73070; 73560; 73590; 73600; 73610; 73630; 74018; 80048; 80053; 80202; 81001; 82140; 82274; 82652; 82962; 83036; 83930; 83935; 85014; 85018; 85025; 85610; 85652; 85730; 86850; 86900; 86920; 86922; 87040; 87070; 87075; 87077; 87086; 87186; 87205; 87640; 93005; 93971; 94640; 97110; 97116; 97163; 97166; 97530; 97535; 97802; J2997; J7030; J7040; J7050; J7120; P9016; 90686; A4216; J1940; J2597

== ENCOUNTER → 2018-01-29 07:36 | Day surgery (SDC) | payer MEDICARE, MEDICAID, SELFPAY ==
[2018-01-29] VITALS (11 sets, daily range): BP systolic 108–153; BP diastolic 55–79; PULSE 58–73; RESP 16–18; TEMP 35.9–36.8; O2SAT 95–100; BMI 37.5
--- NOTE | 2018-01-29 08:45 | BON_PTH ---
PATIENT: ALEAH BARKER LOC: [facility] [place] U#:[id number] AGE/SX: 65/F ROOM: RE01/29/[address]: Dr. Candi Covington DPM : 1960 BED: DIS: SPEC #: [id number] RECD: 01/29/18 16:04 STATUS: ENRICO YANA #: [id number] ELIAS: 01/29/18 08:[address]: Candi Covington DEPT: SURGICAL PATHOLOGY RECD BY: Christopher Marcano ENTERED: 01/30/18 12:25 SP TYPE: Bone OTHR DR: Dr. Pia Newton MD Tissues: A - Bone of ankle, NOS B - Bone of ankle, NOS C - Tibia, NOS Procedures: Decalcification bone/plaque Surgery Specimen Level III HEADER OPERATION: Left ankle removal hardware, multiplanar external fixation PRE-OP DIAGNOSIS: Acute osteomyelitis involving left ankle and foot; open left ankle fracture; infected decubitus ulcer left ankle; diabetic foot ulcer associated with type 2 diabetes mellitus TISSUE SUBMITTED: A - Fibula bone, B - Distal fibula clearance fragment, C - Exposed tibial bone MICROSCOPIC DIAGNOSIS A. Fibula bone: A piece of bone with chronic inflammation and reactive changes. Adherent soft tissue with acute and chronic inflammation. B. Distal fibula bone clearance fragment: A piece of bone with chronic inflammation and reactive changes. Adherent soft tissue with acute and chronic inflammation and granulation tissue reaction. C. Exposed tibial bone: A piece of bone with acute osteomyelitis. SJ:jason 02/04/18 COMMENT Please make reference to previous specimen ([id number]) left distal tibia bone, core biopsy with diagnosis of negative for acute osteomyelitis, left talus bone, core biopsy with diagnosis of negative for acute osteomyelitis, left medial malleolus bone with diagnosis of pieces of bone with chronic inflammation and reactive changes and left distal fibula bone, core biopsy with diagnosis of a piece of bone with acute osteomyelitis. MICROSCOPIC DESCRIPTION Slides are reviewed. GROSS DESCRIPTION A - Received in fixative is one container labeled with the patient's name and designated fibula bone. The specimen consists of a fragment of bone with attached pérez soft tissue measuring 4 x 2.7 x 1.5 cm. [employer] Other Ranks sections are submitted in two cassettes after decalcification. B - Received in fixative is one container labeled with the patient's name and designated distal fibula clearance fragment. The specimen consists of multiple irregular fragments of pérez bone that in aggregate measure 2.5 x 2 x 0.2 cm. The specimen is totally submitted in one cassette after decalcification. C - Received in fixative is one container labeled with the patient's name and designated exposed tibial bone. The specimen consists of a discoid fragment of light pérez bone measuring 2.2 x 2 x 0.2 cm. The specimen is totally submitted in one cassette after decalcification. / AM:jason 01/30/18 TC:2 CPT: 50156 x3, 01584 x3
--- NOTE | 2018-01-29 08:45 | RAD_ITS ---
STUDY: X-RAY - LEFT ANKLE REASON FOR EXAM: Female, 57 years old. Fracture TECHNIQUE: 16 intraoperative spot view(s) of the ankle. COMPARISON: January 20, 2018 FINDINGS: Intraoperative fluoroscopy utilized for 117.9 SEC during hardware removal and external fixation placement. RAD/Ankle 2 Views IMPRESSION: Intraoperative fluoroscopy. Electronically Signed: Shahbaz Gtz MD at 23:40 EDT , Service support ,
[2018-01-29 14:15] LABS: Hemoglobin 8.3 g/dl (12.0-15.0)
[2018-01-29 15:51] LABS: Bedside Glucose 106 mg/dL (70-110)
--- NOTE | 2018-01-29 16:30 | RAD_ITS ---
STUDY: X-RAY - LEFT FOOT CLINICAL: Female, 57 years old. Postop left total TECHNIQUE: 2 view(s) of the foot. COMPARISON: 01/13/2018 FINDINGS: Significant superimposed metallic hardware limiting particularly lateral view. Generalized osteopenia. Obscured talus, calcaneus. Mild arthropathy of the visualized subtalar, talonavicular, calcaneocuboid, tarsal and tarsometatarsal articulations. Cortical thinning with a regular cortex and trabecular pattern involving the proximal first metatarsal metaphyses which appears larger when compared to previous examination and more indistinct. Otherwise normal metatarsi. There is degenerative arthrosis of the metatarsophalangeal joint of the hallux . Normal tibial and fibular sesamoid bones. Normal interphalangeal joint of the great toe. Normal phalanges of the great toe. Normal second through fifth metatarsophalangeal joints. Normal interphalangeal joints and phalanges of the lesser toes. The soft tissue structures are unremarkable. RAD/Foot 2 Views IMPRESSION: Osteoporosis, mild arthropathy. Extremely limited detail due to significant substantial superimposed hardware. Possible surgical intervention along the erosive destruction of the first proximal metatarsal metaphyses, ulceration is less well-defined on current exam. Osteomyelitis not excluded. Electronically Signed: Devika Lyons MD at 2:12 EDT , Service support ,
--- NOTE | 2018-01-29 16:30 | RAD_ITS ---
STUDY: X-RAY - LEFT TIBIA AND FIBULA REASON FOR EXAM: Female, 57 years old. Postop left leg TECHNIQUE: 2 view(s) of the tibia and fibula were obtained. Irritation limitation due to metallic densities/external fixator. COMPARISON: None. FINDINGS: Osseous defects most consistent with previous ORIF. There is osteopenia.. There is recent surgical resection of the distal fibula with adjacent soft tissue swelling and pockets of air. There is continued lateral subluxation of the tibiotalar joint. The surgical resection along the medial distal tibia noted on ankle views is obscured. There is atherosclerosis. RAD/Tibia & Fibula 2 Views IMPRESSION: Postsurgical resection of the distal fibula and side plate with recent surgical intervention, application of external fixator device. Electronically Signed: Devika Lyons MD at 2:27 EDT , Service support ,
--- NOTE | 2018-01-29 16:35 | RAD_ITS ---
STUDY: X-RAY - LEFT ANKLE REASON FOR EXAM: Female, 57 years old. Postop left ankle TECHNIQUE: 3 view(s) of the ankle. Possible superimposed metallic densities/external fixator limiting the detail. Interval removal distal fibular sideplates and screws. COMPARISON: 01/16/2018 FINDINGS: Resection of the distal fibula. Transverse fracture displacement of the medial malleolus, no acute fracture lines detected. Numerous osseous defect in the distal tibia and fibula from prior hardware. Likely surgical resection along the medial distal tibia/malleolus level.. There is subluxation laterally of the talus on the tibia, less pronounced when compared to previous exam. Intact dome of the talus and obscured calcaneus. Soft tissue lucency at the surgical site. RAD/Ankle min 3 Views IMPRESSION: Postsurgical changes status post resection distal fibula, medial distal tibia, continued lateral subluxation of the tibiotalar articulation. Soft tissue changes consistent with recent surgical intervention. Limited detail of calcaneus. Electronically Signed: Devika Lyons MD at 2:16 EDT , Service support ,
--- NOTE | 2018-01-29 16:40 | DCINST_ITS ---
Discharge Activity: May Not Drive, May Not Shower, Use Walker, Use Crutches Weight Bearing Status: No weight bearing - strict NWB LLE Keep extremity elevated above heart level: Operative Extremity Call your doctor if your incision/area has: Sudden Increased Bleeding, Increased Pain/ Swelling, Foul Smelling Discharge Call your doctor if you observe: Fever of 101 or Higher, Numbness or Tingling, Inability to urinate, Shortness of breath Cleanse incision/area with: Keep Dressing Clean & Dry Catheter: Gardner to leg bag - Remove in AM per RN protocol Additional Dressing/Incision Instructions:: Keep dressing clean and dry. If there is strikethrough you may reinforce with DSD. The proximal calf and the foot are wrapped separately to aid in dressing changes to the ankle. [place] drain to the lateral ankle incision, strikethrough is possible. Please call Dr. Covington if reinforcement x 1 fails. Xeroform is applied to the pinsites, adaptic to medial ankle wound and lateral ankle incision Allergies/Adverse Reactions: Allergies aspirin Allergy (Verified 01/28/18 09:07) Hives latex Allergy (Verified 01/28/18 09:07) Hives Penicillins Allergy (Verified 01/28/18 09:07) Hives naproxen [From Aleve] Adverse Reaction (Severe, Verified 01/28/18 09:07) Kidney disease Stage 3 Medications to take at Discharge Allopurinol 300 mg PO DAILY 12/03/16 Amitriptyline HCl 75 mg PO QHS 12/03/16 Atenolol 50 mg PO DAILY 12/03/16 cholecalciferol (vitamin D3) 2,000 unit capsule 2,000 unit PO DAILY 05/27/17 diltiazem CD 180 mg capsule,extended release 24 hr 180 mg PO DAILY 05/27/17 hydroxychloroquine 200 mg tablet 200 mg PO QDAY 05/27/17 omega-3 fatty acids 1,000 mg capsule 1,000 mg PO QDAY 05/27/17 sitagliptin 100 mg tablet 100 mg PO QDAY 05/27/17 gabapentin 300 mg capsule 300 mg PO TID cap 08/19/17 ipratropium 20 mcg-albuterol 100 mcg/actuation mist for inhalation 1 inh INHALATION Q6H PRN #4 g 08/22/17 Atorvastatin Calcium [Lipitor] 40 mg PO QDAY 01/13/18 Cyclobenzaprine HCl 10 mg PO TID PRN PRN 01/13/18 Multivit-Min/Iron/Folic/Lutein [Centrum Silver Women Tablet] 1 tab PO DAILY 01/13/18 Acetaminophen [Tylenol Tablet] 650 mg PO Q6H PRN PRN tablet 01/21/18 Cefepime HCl [Maxipime] 2 gm IV Q12 01/21/18 Insulin Lispro [Humalog KwikPen] See Protocol SQ ACHS 01/21/18 Magnesium Hydroxide [Milk Of Magnesia] 30 ml PO DAILY PRN PRN udc 01/21/18 Mometasone Furoate [Nasonex] 2 spray INTRANASAL QDAY 01/21/18 Vancomycin IV 1,500 mg IV Q24H 01/21/18 Primary Care Physician: Pia Newton MD [Primary Care Provider] - Test Results: Test results from this visit will be discussed in further detail at your follow- up appointment, if applicable. Proposed Discharge Date: 01/29/18 - Back to TCU, plan for OR next week
[2018-01-29 17:21] LABS: M R Staph aureus DNA By PCR Negative (Negative); M R Staph aureus DNA By PCR POSITIVE (Negative); Probe Check PASS; Specimen Processing Control PASS; Staph aureus DNA By PCR POSITIVE (Negative)
--- NOTE | 2018-02-04 18:56 | PCM.IMDPSTOP ---
Immediate Post-Op Note Date of Procedure: 01/29/18 Primary Surgeon/Physician: Candi Covington DPM dairy science teacher: Ashutosh Gutierrez Pre-Operative Diagnosis: left ankle open fracture; painful/broken hardware; acute osteomyelitis left distal fibula Post-Operative Diagnosis: same Surgery/Procedure Performed:: left ankle hardware removal, debridement of soft tissue to bone, debridement fibula bone, bone biopsy fibula, debridement and bone biopsy of medial tibia, application of external fixation Description of Surgical Findings:: see dictation Estimated Blood Loss: 300 mL Specimen's removed: L distal fibula (path and cx); L fibula clearing fragment (path and cx); L exposed medial tibia (path and cx); hardware explanted in total Drains: daniel left lateral ankle Type of Anesthesia:: Spinal General Anesthesia - spinal converted to LMA - Admit VTE Documentation VTE Present on Admission: No VTE Mechan Device Prophylaxis: SCD's, Knee High MARLYS Hose VTE Pharm Prophylaxis ordered?: Yes
--- NOTE | 2018-02-04 19:02 | OP.PN_ITS ---
Immediate Post-Op Note Date of Procedure: 01/29/18 Primary Surgeon/Physician: Candi Covington DPM clinical care manager: Ashutosh Gutierrez Pre-Operative Diagnosis: left ankle open fracture; painful/broken hardware; acute osteomyelitis left distal fibula Post-Operative Diagnosis: same Surgery/Procedure Performed:: left ankle hardware removal, debridement of soft tissue to bone, debridement fibula bone, bone biopsy fibula, debridement and bone biopsy of medial tibia, application of external fixation Description of Surgical Findings:: see dictation Estimated Blood Loss: 300 mL Specimen's removed: L distal fibula (path and cx); L fibula clearing fragment (path and cx); L exposed medial tibia (path and cx); hardware explanted in total Drains: daniel left lateral ankle Type of Anesthesia:: Spinal General Anesthesia - spinal converted to LMA - Admit VTE Documentation VTE Present on Admission: No VTE Mechan Device Prophylaxis: SCD's, Knee High MARLYS Hose VTE Pharm Prophylaxis ordered?: Yes
--- NOTE | 2018-02-04 19:02 | PCM.OPRPT ---
Report of Operation Date of Procedure: 01/29/18 Pre-Operative Diagnosis: left ankle open fracture; painful/broken hardware; acute osteomyelitis left distal fibula Post-Operative Diagnosis: same Surgery/Procedure Performed:: left ankle hardware removal, debridement of soft tissue to bone, debridement fibula bone, bone biopsy fibula, debridement and bone biopsy of medial tibia, application of external fixation Description of Surgical Findings:: see dictation community health counselor: Ashutosh Gutierrez Type of Anesthesia:: Spinal General Anesthesia - spinal converted to LMA Specimen's removed: L distal fibula (path and cx); L fibula clearing fragment (path and cx); L exposed medial tibia (path and cx); hardware explanted in total Drains: daniel left lateral ankle Estimated Blood Loss (mL): 300 mL Description of Procedure: Indications: Pt is a 57 yo F left limb salvage candidate 2/2 an open ankle fracture that subsequently became infected. She is s/p bone biopsies of L open ankle fracture on 01/20/2018. She presents today for the next step in her limb salvage: explant of hardware, soft tissue and bone debridement and biopsies, application of multiplanar external fixation device. All risks, complications, and alternatives were discussed with the patient, and the patient signed an informed consent. No guarantees were given. Procedure: On January 29, 2018, melida lauren was visually and verbally identified in the preoperative holding area. The consent form was again reviewed with the patient, as were all risks, complications, and alternatives and the patient wished to proceed with the proposed surgery. The left lower leg was marked as the correct operative extremity. Anesthesia elected to proceed with spinal anesthesia given her COPD hx. This was done successfully The patient was brought to the operating room and placed on the operating room table in the normal SUPINE position. A time out was performed and all present were in agreement. a pneumatic thigh tourniquet was then placed. At this time the left lower extremity was prepped and draped in the usual sterile fashion. At this time attention was directed to the left lateral ankle. Using a #15 blade, a longitudinal incision was made along the previous surgical scar. The incision was bluntly carried deep through the subcutaneous tissues with careful attention paid to all bleeders, which were clamped and tied or bovied as necessary. All vital neurovascular structures were retracted. The loosened, broken and bent hardware was visualized. Given the blood in the field I decided at this time to elevate her left lower extremity and inflate the tourniquet to 300mmHg. We then returned to the left lateral ankle and the screws and plate were removed in total without incident using intra-operative fluoroscopy. The distal fibula fracture fragments were then excised using a #15 blade and sent for pathology and culture. It was noted to be soft. The soft tissues were debrided with a #15 blade and currette. The distal fibular fragment was then debrided using ronguers and noted to still be soft. All soft bone was removed and using a combination of osteotomes and ronguers bone biopsies of the distal residual fibula were taken. This was sent for separate pathology and culture as the distal clearing fragment of the fibula. Attention was then directed to the medial ankle wound. Using a fresh #15 blade and currettes the soft tissue was excisionally debrided of all non-viable and necrotic and fibrotic tissue until bleeding granular tissue was noted. No purulence was noted. Using a fresh osteotome and ronguers the exposed distal medial tibia was debrided and sent for pathology and culture. Bleeding bone was noted and the bone was not noted to be soft. At this time 3L of NSS was used via pulse lavage to irrigate the medial and lateral wounds. The medial ankle wound measured 9 cm x 6.5 cm deep to bone/ankle joint after sharp, excisional debridement. At this time we began application of the Orthofix multiplanar external fixation. Intra operative fluoroscopy was utilized throughout the application which took greater than one hour of the total case time. Two tibial half pins were placed for the most proximal ring which measured 160mm. These were bicortical and confirmed on fluoroscopy. The next circular ring was placed proximal to the ankle joint with 2 opposing olive wires under intra operative fluoroscopy. care was taken to place the lateral to medial olive wire without placing it in the residual fibula as we are awaiting distal fibula clearing fragment results, a 5/8th ring was placed at the level of talus with two opposing olives wires for stability and intra operative fluoroscopy was used to guide this placement as well as direct visualized of the lateral talus, a foot plate was then placed with two opposing olive wires in the calcaneus and two opposing olive wires in the forefoot. All wires in the foot plate were placed with intra operative fluoroscopy guidance. Patient's previous pin/wire placement from her initial external fixation device were noted on intra operative fluoroscopy at both the tibia and in the metatarsals and care was taken to avoid previous sites. All wires were tensioned per software publisher guidelines. The medial and lateral wounds were then again flushed with NSS. The lateral incision was then closed with 2-0 prolene distally and proximally leaving the central incision open and a 1/4 inch daniel drain was placed. The medial wound was dressed with adaptic and DSD. The pin and wires sites were each dressed with xeroform and DSD. An macario bandage was then applied to the LLE. Total tourniquet time was 120minutes. Immediate capillary refill was noted to all digits upon deflation of the tourniquet. The patient tolerated the procedure and anesthesia well. Of note the patient was converted to an LMA as the spinal anesthesia wore off during the procedure. The patient was then transported to the postanesthesia care unit by a member of the anesthesia team and myself with all vital signs stable and neurovascular status of the left lower extremity equal to pre-operative levels. A intra operative Hemoglobin was obtained as the patient was 7.7 prior to surgery and subsequently transfused 1 upRBCs. The intraoperative hemoglobin result was >8 so no further transfusion was done. It will be closely monitored by the medical team in the TCU. PT will likely return to the operating room in one week for further washout and debridement with possible application of skin substitute. Until then, pt will remain in the TCU NWB LLE at all times. At the end of the case all sponge, needle and instrument counts were found to be correct. Intraoperative fluoroscopy was utilized for the majority of the operating room time, > 1 hour. It was essential to my decision making for hardware removal and external fixation application. Grafts/Implants Used: Orthofix External Fixation, daniel drain - Complications none - Admit VTE Documentation VTE Present on Admission: No VTE Mechan Device Prophylaxis: SCD's, Knee High MARLYS Hose VTE Pharm Prophylaxis ordered?: Yes
== END ==
PROVIDERS: Family Provider Internal Medicine; PCP Internal Medicine; Referring Provider Podiatrist Foot & Ankle Surgery; Visit Provider Podiatrist Foot & Ankle Surgery
PROC: (CPT 20245; principal; 2018-01-29 08:30)
DX: T84.84XA Pain due to internal orthopedic prosthetic devices, implants and grafts, initial encounter (principal); Y79.3 Surgical instruments, materials and orthopedic devices (including sutures) associated with adverse incidents; M86.162 Other acute osteomyelitis, left tibia and fibula; M06.9 Rheumatoid arthritis, unspecified; E11.42 Type 2 diabetes mellitus with diabetic polyneuropathy; E11.51 Type 2 diabetes mellitus with diabetic peripheral angiopathy without gangrene; E11.65 Type 2 diabetes mellitus with hyperglycemia; E11.22 Type 2 diabetes mellitus with diabetic chronic kidney disease; N18.3 Chronic kidney disease, stage 3 (moderate); I12.9 Hypertensive chronic kidney disease with stage 1 through stage 4 chronic kidney disease, or unspecified chronic kidney disease; E78.5 Hyperlipidemia, unspecified; Z79.4 Long term (current) use of insulin; Z79.899 Other long term (current) drug therapy; Z87.891 Personal history of nicotine dependence
CPT/HCPCS: 20245; 20680; 20692; 73590; 73600; 73610; 73620; 76000; 82962; 85014; 85018; 87015; 87070; 87075; 87077; 87102; 87116; 87186; 87205; 87206; 87640; 88304; 88311; C1713; J7120

== ENCOUNTER → 2018-02-02 10:36 | Outpatient (CLI) | payer MEDICARE, MEDICAID, SELFPAY ==
[2018-02-02] VITALS (7 sets, daily range): BP systolic 134–160; BP diastolic 70–81; PULSE 69–79; RESP 16; TEMP 36.3–36.7; O2SAT 97–100; BMI 36.8
[2018-02-02] MEDS: Furosemide 40 MG/4 ML Vial IV (13:11)
== END ==
PROVIDERS: Family Provider Internal Medicine; PCP Internal Medicine; Visit Provider Family Medicine Geriatric Medicine
DX: D64.9 Anemia, unspecified (principal)
CPT/HCPCS: 36430; 86644; 86850; 86900; 86920; 86922; J7040; P9016; P9040; A4216

== ENCOUNTER 2018-02-05 08:44 | Day surgery (SDC) | payer MEDICARE, MEDICAID, SELFPAY ==
--- NOTE | 2018-02-05 | BON_PTH ---
PATIENT: ALEAH BARKER LOC: [facility] [place] U#:[id number] AGE/SX: 57/F ROOM: RE02/05/[address]: Dr. Candi Covington DPM : 1960 BED: DIS: 02/05/2018 SPEC #: [id number] RECD: 02/05/18 15:02 STATUS: ENRICO REPawan #: [id number] ELIAS: 02/05/18 00:[address]: Candi Covington DEPT: SURGICAL PATHOLOGY RECD BY: Demetrius Sparks ENTERED: 02/05/18 15:03 KATHRINE TYPE: Bone OTHR DR: Dr. Pia Newton MD Tissues: Tibia, NOS Procedures: Decalcification bone/plaque Surgery Specimen Level III HEADER OPERATION: Soft tissue bone debridement PRE-OP DIAGNOSIS: Left ankle open fracture, osteomyelitis TISSUE SUBMITTED: Left tibial bone MICROSCOPIC DIAGNOSIS Left tibial bone: Piece of bone with fibrinous exudation and acute osteomyelitis. SJ:kathrine 02/11/18 MICROSCOPIC DESCRIPTION Slides are reviewed. GROSS DESCRIPTION Received in fixative is one container labeled with the patient's name and designated left tibial bone. The specimen consists of a piece of bone measuring 0.5 x 0.5 x 0.3 cm. The entire specimen is submitted in one cassette after decalcification. / JOSE LUIS:jason 02/05/18 TC: 2 CPT: 33991, 94259
[2018-02-05 09:09] VITALS: BP 160/64; PULSE 67; RESP 16; TEMP 36.1; O2SAT 94; BMI 36.8
[2018-02-05 12:07] VITALS: BP 130/67; BP 160/64; PULSE 63; RESP 18; TEMP 36.5; O2SAT 100
[2018-02-05 12:15] VITALS: BP 135/64; BP 160/64; PULSE 59; RESP 18; O2SAT 100
--- NOTE | 2018-02-05 12:16 | DCINST_ITS ---
Discharge Activity: May Not Drive, May not drive while taking narcotic pain medications., May Not Shower Weight Bearing Status: No weight bearing - NWB LLE Keep extremity elevated above heart level: Operative Extremity Call your doctor if your incision/area has: Sudden Increased Bleeding, Increased Pain/ Swelling, Foul Smelling Discharge Call your doctor if you observe: Fever of 101 or Higher, Coldness, Increased Pain, Shortness of breath, Chest pain, Calf discomfort Cleanse incision/area with: Keep Dressing Clean & Dry Catheter: Gardner to leg bag Additional Dressing/Incision Instructions:: Please keep LLE dressing clean/dry/intact. May reinforce with DSD x [address] Covington Additional Instructions: Continue IV abx per ID, new medial tibial bone cx and path taken today. Return to OR in 3 weeks or sooner if Integra fails and/or SOI. Ok to resume lovenox tomorrow am Allergies/Adverse Reactions: Allergies aspirin Allergy (Verified 02/05/18 09:07) Hives latex Allergy (Verified 02/05/18 09:07) Hives Penicillins Allergy (Verified 02/05/18 09:07) Hives naproxen [From Aleve] Adverse Reaction (Severe, Verified 02/05/18 09:07) Kidney disease Stage 3 Medications to take at Discharge Allopurinol 300 mg PO DAILY 12/03/16 Amitriptyline HCl 75 mg PO QHS 12/03/16 Atenolol 50 mg PO DAILY 12/03/16 cholecalciferol (vitamin D3) 2,000 unit capsule 2,000 unit PO DAILY 05/27/17 diltiazem CD 180 mg capsule,extended release 24 hr 180 mg PO DAILY 05/27/17 hydroxychloroquine 200 mg tablet 200 mg PO QDAY 05/27/17 omega-3 fatty acids 1,000 mg capsule 1,000 mg PO QDAY 05/27/17 sitagliptin 100 mg tablet 100 mg PO QDAY 05/27/17 gabapentin 300 mg capsule 300 mg PO TID cap 08/19/17 ipratropium 20 mcg-albuterol 100 mcg/actuation mist for inhalation 1 inh INHALATION Q6H PRN #4 g 08/22/17 Atorvastatin Calcium [Lipitor] 40 mg PO QDAY 01/13/18 Cyclobenzaprine HCl 10 mg PO TID PRN PRN 01/13/18 Multivit-Min/Iron/Folic/Lutein [Centrum Silver Women Tablet] 1 tab PO DAILY 01/13/18 Acetaminophen [Tylenol Tablet] 650 mg PO Q6H PRN PRN tablet 01/21/18 Cefepime HCl [Maxipime] 2 gm IV Q12 01/21/18 Insulin Lispro [Humalog KwikPen] See Protocol SQ ACHS 01/21/18 Magnesium Hydroxide [Milk Of Magnesia] 30 ml PO DAILY PRN PRN udc 01/21/18 Mometasone Furoate [Nasonex] 2 spray INTRANASAL QDAY 01/21/18 Vancomycin IV 1,500 mg IV Q24H 01/21/18 Primary Care Physician: Pia Newton MD [Primary Care Provider] - Test Results: Test results from this visit will be discussed in further detail at your follow- up appointment, if applicable.
--- NOTE | 2018-02-05 12:17 | PCM.IMDPSTOP ---
Immediate Post-Op Note Date of Procedure: 02/05/18 Primary Surgeon/Physician: Candi Covington DPM hired help: Anisha Hooper Pre-Operative Diagnosis: L open ankle fracture, osteomyelitis Post-Operative Diagnosis: same Surgery/Procedure Performed:: Left soft tissue excisional debridement to bone, L exposed tibia bone biopsy, L exposed tibia bone debridement, L ankle application of Integra skin substitute Description of Surgical Findings:: see dictation Estimated Blood Loss: minimal Specimen's removed: L exposed tibia bone (path and cx) Drains: none Type of Anesthesia:: General - Admit VTE Documentation VTE Present on Admission: No VTE Mechan Device Prophylaxis: SCD's, Knee High MARLYS Hose VTE Pharm Prophylaxis ordered?: Yes
--- NOTE | 2018-02-05 12:20 | OP.PN_ITS ---
Immediate Post-Op Note Date of Procedure: 02/05/18 Primary Surgeon/Physician: Candi Covington DPM director inpatient headache program: Anisha Hooper Pre-Operative Diagnosis: L open ankle fracture, osteomyelitis Post-Operative Diagnosis: same Surgery/Procedure Performed:: Left soft tissue excisional debridement to bone, L exposed tibia bone biopsy, L exposed tibia bone debridement, L ankle application of Integra skin substitute Description of Surgical Findings:: see dictation Estimated Blood Loss: minimal Specimen's removed: L exposed tibia bone (path and cx) Drains: none Type of Anesthesia:: General - Admit VTE Documentation VTE Present on Admission: No VTE Mechan Device Prophylaxis: SCD's, Knee High MARLYS Hose VTE Pharm Prophylaxis ordered?: Yes
--- NOTE | 2018-02-05 12:20 | PCM.OPRPT ---
Report of Operation Date of Procedure: 02/05/18 Pre-Operative Diagnosis: L open ankle fracture, osteomyelitis Post-Operative Diagnosis: same Surgery/Procedure Performed:: Left soft tissue excisional debridement to bone, L exposed tibia bone biopsy, L exposed tibia bone debridement, L ankle application of Integra skin substitute Description of Surgical Findings:: see dictation grails web application developer: Anisha Hooper grails web application developer: April Delacruz Type of Anesthesia:: General Specimen's removed: L exposed tibia bone (path and cx) Drains: none Estimated Blood Loss (mL): minimal Description of Procedure: Indications: Patient is a 57 yo F with complex medical hx who presents today for surgical intervention as part of left lower extremity limb salvage. All risks, complications, and alternatives were discussed with the patient, and the patient signed an informed consent. No guarantees were given. Procedure: On 02/05/2018 Kandy Young was visually and verbally identified in the preoperative holding area. The consent form was again reviewed with the patient, as were all risks, complications, and alternatives and the patient wished to proceed with the proposed surgery. The left ankle was marked as the correct operative extremity. The patient was brought to the operating room and placed on the operating room table in the normal supine position. Anesthesia intubated the patient. A time out was performed and all present were in agreement. At this time attention was directed to the Left anterior ankle. It was noted to have increased granular tissue with decreased tendon and bone exposure. No maceration was present. No purulence or malodor noted. Utilizing a #15 blade and currettes all necrotic and nonviable soft tissue was excisionally debrided until healthy, bleeding tissue was visualized. Utilizing ronguers a bone biopsy of the exposed tibia was sent for pathology and cultures. The bone was then further debrided with a fresh curettes and ronguer. Bone was noted to be firm and bled well. Attention was then turned to the lateral ankle where previous sutures remained in place with the central incision open from the previously placed daniel drain and packing. Utlizing the central incision the soft tissue was debrided with minimal amounts of hematoma removed. 3L of normal sterile saline was then used via pulse lavage to flush both the lateral and anterior ankle wounds. Electrocautery was then used for any bleeders that were noted. The post excisional anterior ankle wound measured 9 cm x 4.5 cm with minimal bone exposed. At this time I felt the wound was ready for application of Integra bilayer skin substitute. This was applied and then secured with cristian. I used a fresh #15 blade to pie crust it and allow for any drainage. There was some remaining Integra so I scraped the collagen from it to pack into the most medial part of the wound which is the deepest and secured that medial edge with cristian. Adaptic was placed along with a bolster dressing as a NPWT application would be difficult with the wires placement of her external fixation. The wires and pins of the ex fix were again dressed with xeroform and DSD, the lateral incision was packed centrally with a short wick of DSD and adaptic over the sutures, DSD was then placed surrounding the LLE with Carmen bandages over the ex fix. At the end of the case all needle, sponge and instrument counts were found to be correct. Pt tolerated the procedure and anesthesia well. She was transported to the PACU by a member of the anesthesia team and myself with AVSS and NV status of the LLE equal to pre-operative levels. We will await these most recent cx and pathology results and monitor the wound and Integra. Plan for return to the operating room pending results of today's case with plan for possible flap coverage, STSG, repeat Integra application, tibiotalar arthrodesis with external fixation adjustment. PT understands this continues to be a staged process. Continue IV abx per ID and cx/pathology. Grafts/Implants Used: Integra bilayer skin substitute - Complications none - Admit VTE Documentation VTE Present on Admission: No VTE Mechan Device Prophylaxis: SCD's, Knee High MARLYS Hose VTE Pharm Prophylaxis ordered?: Yes
[2018-02-05 12:31] VITALS: BP 148/68; BP 160/64; PULSE 62; RESP 18; TEMP 36.2; O2SAT 97
== END 2018-02-05 12:47 | disposition home or self-care (01) ==
LOC: SDC 08:45 → AC 08:45
PROVIDERS: Family Provider Internal Medicine; PCP Internal Medicine; Referring Provider Podiatrist Foot & Ankle Surgery; Visit Provider Podiatrist Foot & Ankle Surgery
PROC: (CPT 15002; principal; 2018-02-05 09:45)
DX: S82.842C Displaced bimalleolar fracture of left lower leg, initial encounter for open fracture type IIIA, IIIB, or IIIC (principal); W18.11XA Fall from or off toilet without subsequent striking against object, initial encounter; I10 Essential (primary) hypertension; M86.162 Other acute osteomyelitis, left tibia and fibula; E78.00 Pure hypercholesterolemia, unspecified; N18.3 Chronic kidney disease, stage 3 (moderate); G25.81 Restless legs syndrome; D64.9 Anemia, unspecified; Z79.899 Other long term (current) drug therapy; I12.9 Hypertensive chronic kidney disease with stage 1 through stage 4 chronic kidney disease, or unspecified chronic kidney disease; J44.9 Chronic obstructive pulmonary disease, unspecified; I25.10 Atherosclerotic heart disease of native coronary artery without angina pectoris; M79.7 Fibromyalgia; E11.22 Type 2 diabetes mellitus with diabetic chronic kidney disease; M19.90 Unspecified osteoarthritis, unspecified site; M10.9 Gout, unspecified; F17.210 Nicotine dependence, cigarettes, uncomplicated; T84.418A Breakdown (mechanical) of other internal orthopedic devices, implants and grafts, initial encounter; E11.40 Type 2 diabetes mellitus with diabetic neuropathy, unspecified; E11.51 Type 2 diabetes mellitus with diabetic peripheral angiopathy without gangrene; L03.116 Cellulitis of left lower limb
CPT/HCPCS: 01480; 15002; 15271; 20245; 87015; 87070; 87075; 87077; 87102; 87116; 87186; 87205; 87206; 88304; 88311; C1713; J7120; A4216; J2405

== ENCOUNTER → 2018-02-17 17:00 | Day surgery (SDC) | payer MEDICARE, MEDICAID, SELFPAY ==
--- NOTE | 2018-02-17 | BON_PTH ---
PATIENT: ALEAH BARKER LOC: [facility] [place] U#:[id number] AGE/SX: 65/F ROOM: RE02/17/[address]: Dr. Candi Covington DPM : 1960 BED: DIS: SPEC #: [id number] RECD: 02/18/18 09:19 STATUS: ENRICO YANA #: [id number] ELIAS: 02/17/18 00:[address]: Candi Covington DEPT: SURGICAL PATHOLOGY RECD BY: Demetrius Sparks ENTERED: 02/18/18 10:40 SP TYPE: Bone OTHR DR: Dr. Pia Newton MD Tissues: A - Bone of lower extremity, NOS B - Bone of lower extremity, NOS Procedures: Decalcification bone/plaque Surgery Specimen Level IV HEADER OPERATION: Left lower leg soft tissue and bone debridement PRE-OP DIAGNOSIS: Left leg cellulitis TISSUE SUBMITTED: A - Medial bone and soft tissue, B - Lateral bone and soft tissue MICROSCOPIC DIAGNOSIS A. 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 No evidence of acute osteomyelitis. B. Lateral bone and soft tissue, biopsy: Fragments of granulation tissue with associated fibrinoid material and organizing blood clot. See comment. AM:jason 02/25/18 COMMENT B. Bony tissue is not present in the biopsy. Clinical correlation is suggested. MICROSCOPIC DESCRIPTION Slides are reviewed. GROSS DESCRIPTION A - Received in fixative is one container labeled with the patient's name and designated medial bone and soft tissue. The specimen consists of two pieces of bone mixed with soft tissue measuring in aggregate 1 x 0.5 x 0.3 cm. The entire specimen is submitted in one cassette after decalcification. B - Received in fixative is one container labeled with the patient's name and designated lateral bone and soft tissue. The specimen consists of two pieces of hemorrhagic soft tissue measuring in aggregate 1.2 x 1 x 0.2 cm. The entire specimen is submitted in one cassette. / SJ:jason 02/18/18 TC:5 CPT: 23197 x2, 57511
[2018-02-17 17:10] VITALS: BP 109/52; PULSE 81; RESP 16; TEMP 37.1; O2SAT 100; BMI 39.0
[2018-02-17] MEDS: Vancomycin IV 1,000 MG/20 ML Vial 1000 MG OPERA.SITE (19:07)
[2018-02-17 20:16] VITALS: BP 109/52; BP 111/55; PULSE 78; RESP 16; TEMP 37.5; O2SAT 95
--- NOTE | 2018-02-17 20:21 | PCM.IMDPSTOP ---
Immediate Post-Op Note Date of Procedure: 02/17/18 Primary Surgeon/Physician: Candi Covington DPM conference service coordinator: NOT,DEFINED Pre-Operative Diagnosis: L leg cellulitis, open ankle fracture Post-Operative Diagnosis: same Surgery/Procedure Performed:: L ankle soft tissue excisional debridement, L ankle bone debridement, L ankle application of antibiotic beads Description of Surgical Findings:: see dictation, of note no joaquín purulence or signs of acute infection Estimated Blood Loss: minimal Specimen's removed: L medial ankle soft tissue and bone ( cx and path), L lateral ankle soft tissue/bone (cx path) Drains: TLS Type of Anesthesia:: General - Admit VTE Documentation VTE Present on Admission: No VTE Mechan Device Prophylaxis: SCD's VTE Pharm Prophylaxis ordered?: Yes
--- NOTE | 2018-02-17 20:25 | OP.PN_ITS ---
Immediate Post-Op Note Date of Procedure: 02/17/18 Primary Surgeon/Physician: Candi Covington DPM manufacturing area manager: NOT,DEFINED Pre-Operative Diagnosis: L leg cellulitis, open ankle fracture Post-Operative Diagnosis: same Surgery/Procedure Performed:: L ankle soft tissue excisional debridement, L ankle bone debridement, L ankle application of antibiotic beads Description of Surgical Findings:: see dictation, of note no joaquín purulence or signs of acute infection Estimated Blood Loss: minimal Specimen's removed: L medial ankle soft tissue and bone ( cx and path), L lateral ankle soft tissue/bone (cx path) Drains: TLS Type of Anesthesia:: General - Admit VTE Documentation VTE Present on Admission: No VTE Mechan Device Prophylaxis: SCD's VTE Pharm Prophylaxis ordered?: Yes
--- NOTE | 2018-02-17 20:29 | DCINST_ITS ---
Discharge Activity: May not drive while taking narcotic pain medications., May Not Shower, Use Walker, Use Crutches Weight Bearing Status: No weight bearing Keep extremity elevated above heart level: Operative Extremity Additional Activity Instructions:: Left Lower Leg must be elevated at all times, must be elevated in bed and must be elevated when in recliner Call your doctor if your incision/area has: Sudden Increased Bleeding, Foul Smelling Discharge Cleanse incision/area with: Keep Dressing Clean & Dry Drain: Suction Additional Dressing/Incision Instructions:: Please call Dr. Covington to change TLS drain. Allergies/Adverse Reactions: Allergies aspirin Allergy (Verified 02/05/18 09:07) Hives latex Allergy (Verified 02/05/18 09:07) Hives Penicillins Allergy (Verified 02/05/18 09:07) Hives naproxen [From Aleve] Adverse Reaction (Severe, Verified 02/05/18 09:07) Kidney disease Stage 3 Medications to take at Discharge Allopurinol 300 mg PO DAILY 12/03/16 Amitriptyline HCl 75 mg PO QHS 12/03/16 Atenolol 50 mg PO DAILY 12/03/16 cholecalciferol (vitamin D3) 2,000 unit capsule 2,000 unit PO DAILY 05/27/17 diltiazem CD 180 mg capsule,extended release 24 hr 180 mg PO DAILY 05/27/17 hydroxychloroquine 200 mg tablet 200 mg PO QDAY 05/27/17 omega-3 fatty acids 1,000 mg capsule 1,000 mg PO QDAY 05/27/17 sitagliptin 100 mg tablet 100 mg PO QDAY 05/27/17 gabapentin 300 mg capsule 300 mg PO TID cap 08/19/17 ipratropium 20 mcg-albuterol 100 mcg/actuation mist for inhalation 1 inh INHALATION Q6H PRN #4 g 08/22/17 Atorvastatin Calcium [Lipitor] 40 mg PO QDAY 01/13/18 Cyclobenzaprine HCl 10 mg PO TID PRN PRN 01/13/18 Multivit-Min/Iron/Folic/Lutein [Centrum Silver Women Tablet] 1 tab PO DAILY 01/13/18 Acetaminophen [Tylenol Tablet] 650 mg PO Q6H PRN PRN tablet 01/21/18 Cefepime HCl [Maxipime] 2 gm IV Q12 01/21/18 Insulin Lispro [Humalog KwikPen] See Protocol SQ ACHS 01/21/18 Magnesium Hydroxide [Milk Of Magnesia] 30 ml PO DAILY PRN PRN udc 01/21/18 Mometasone Furoate [Nasonex] 2 spray INTRANASAL QDAY 01/21/18 Vancomycin IV 1,500 mg IV Q24H 01/21/18 Primary Care Physician: Pia Newton MD [Primary Care Provider] - Test Results: Test results from this visit will be discussed in further detail at your follow- up appointment, if applicable. Proposed Discharge Date: 02/17/18
[2018-02-17 20:30] VITALS: BP 109/52; BP 114/54; PULSE 78; RESP 16; O2SAT 99
[2018-02-17 20:36] VITALS: BP 109/52; BP 112/54; PULSE 77; RESP 16; TEMP 37.4; O2SAT 100
[2018-02-17 20:36] LABS: Bedside Glucose 135 mg/dL (70-110)
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
== END ==
PROVIDERS: Family Provider Internal Medicine; PCP Internal Medicine; Referring Provider Podiatrist Foot & Ankle Surgery; Visit Provider Podiatrist Foot & Ankle Surgery
PROC: (CPT 11044; principal; 2018-02-17 08:35)
DX: M87.872 Other osteonecrosis, left ankle (principal); L03.116 Cellulitis of left lower limb; S82.892B Other fracture of left lower leg, initial encounter for open fracture type I or II; X58.XXXA Exposure to other specified factors, initial encounter; M06.9 Rheumatoid arthritis, unspecified; E11.42 Type 2 diabetes mellitus with diabetic polyneuropathy; M19.90 Unspecified osteoarthritis, unspecified site; E11.65 Type 2 diabetes mellitus with hyperglycemia; E11.52 Type 2 diabetes mellitus with diabetic peripheral angiopathy with gangrene; E78.5 Hyperlipidemia, unspecified; E11.22 Type 2 diabetes mellitus with diabetic chronic kidney disease; N18.3 Chronic kidney disease, stage 3 (moderate); I12.9 Hypertensive chronic kidney disease with stage 1 through stage 4 chronic kidney disease, or unspecified chronic kidney disease; M10.9 Gout, unspecified; Z79.899 Other long term (current) drug therapy; Z87.891 Personal history of nicotine dependence
CPT/HCPCS: 01480; 11044; 82962; 87070; 87075; 87102; 87205; 87206; 88305; 88311

== ENCOUNTER 2018-02-19 14:25 | Outpatient (CLI) | payer MEDICARE, MEDICAID, SELFPAY ==
[2018-02-17 17:10] VITALS: BMI 39.0
[2018-02-19] VITALS (10 sets, daily range): BP systolic 105–148; BP diastolic 52–100; PULSE 64–78; RESP 16–20; TEMP 36.5–37.1; O2SAT 96–100; BMI 39.0
--- NOTE | 2018-02-19 16:48 | NURSING ---
Pt is to have 2 units of PRBC and will have 20 mg ivp lasix in between blood transfusions. Pt was ordered dinner please follow up she is diabetic. Was placed on 2 l nc on admission after turning and repositioning. She is now back on room air. Pt has gaytan and left leg is elevated.
[2018-02-19] MEDS: Furosemide 20 MG/2 ML VIAL IV (18:04)
--- NOTE | 2018-02-19 20:39 | EKG12_ITS ---
Test Reason : CP Blood Pressure : / mmHG Vent. Rate : 076 BPM Atrial Rate : 076 BPM P-R Int : 162 ms QRS Dur : 092 ms QT Int : 388 ms P-R-T Axes : 004 061 046 degrees QTc Int : 436 ms Normal sinus rhythm Nonspecific T wave abnormality Abnormal ECG Confirmed by SIMIN SKINNER, ERIN ([id number]), publications editor ANA ROSA BAEZA ([id number] on 02/23/2018 2:26:07 PM Referred By: Gerson Elizondo Confirmed By:ERIN DUVAL MD
--- NOTE | 2018-02-19 20:42 | NURSING ---
Called pt is c/o of chest pain unable to lay back. VS are stable, applied 02 for comfort. Pt thinks might be anxiety did not want any Ativan just wanted her Tylenol arthritis and Flexirl.Then c/o being cold. Getting ABG if normal okay to go back. Called TCU RN to bring over her pain meds. Called to get Stat EKG.
--- NOTE | 2018-02-19 20:49 | NURSING ---
PT STATED, I'M HAVING CHEST PAIN. CHARGE NURSE NOTIFIED. STAT EKG ORDERED.
--- NOTE | 2018-02-19 21:00 | NURSING ---
TCU RN called back, pt no longer has Flexeril or Tylenol arthritis ordered d/t med changes. Pt will be medicated when she returns to TCU.
--- NOTE | 2018-02-19 21:02 | NURSING ---
Dr. Gilliam notified of ekg results
== END 2018-02-19 21:05 ==
LOC: MS3OUT 14:26 → MS3 14:27
PROVIDERS: Family Provider Internal Medicine; PCP Internal Medicine; Referring Provider Family Medicine Geriatric Medicine; Visit Provider Family Medicine Geriatric Medicine
DX: D64.9 Anemia, unspecified (principal)
CPT/HCPCS: 36415; 36430; 86850; 86900; 86920; 86922; 93005; P9016; A4216; J1940

== ENCOUNTER 2018-02-26 06:06 | Day surgery (SDC) | payer MEDICARE, MEDICAID, SELFPAY ==
[2018-02-17 17:10] VITALS: BMI 39.0
[2018-02-19 15:38] VITALS: BMI 39.0
[2018-02-26] VITALS (7 sets, daily range): BP systolic 125–172; BP diastolic 70–95; PULSE 78–97; RESP 16–18; TEMP 35.9–36.8; O2SAT 94–98; BMI 35.5
--- NOTE | 2018-02-26 | BON_PTH ---
PATIENT: ALEAH BARKER LOC: EN U#:[id number] AGE/SX: 58/F ROOM: RE02/26/[address]: Dr. Candi Covington DPM : 1960 BED: DIS: 02/26/2018 SPEC #: [id number] RECD: 02/26/18 13:57 STATUS: ENRICO REPawan #: [id number] ELIAS: 02/26/18 00:[address]: Candi Covington DEPT: SURGICAL PATHOLOGY RECD BY: Demetrius Sparks ENTERED: 02/26/18 13:58 SP TYPE: Bone OTHR DR: MD Dr. Shimon Greer MD Tissues: Ankle, NOS Procedures: Decalcification bone/plaque Surgery Specimen Level III HEADER OPERATION: Left lower extremity soft tissue and bone debridement PRE-OP DIAGNOSIS: Open left ankle fracture TISSUE SUBMITTED: Debrided bone and tissue left medial ankle MICROSCOPIC DIAGNOSIS Bone and soft tissue, left medial ankle, biopsy: A piece of bone with acute osteomyelitis. JOSE LUIS:jason 03/04/18 MICROSCOPIC DESCRIPTION Slides are reviewed. GROSS DESCRIPTION Received in fixative is one container labeled with the patient's name and designated debrided bone and tissue left medial ankle. The specimen consists of a piece of pérez bone measuring 0.6 x 0.5 x 0.2 cm. The entire specimen is submitted in one cassette after decalcification. / JOSE LUIS:jason 02/26/18 TC:2 CPT: 38684, 10193
--- NOTE | 2018-02-26 07:15 | RAD_ITS ---
STUDY: X-RAY - LEFT ANKLE REASON FOR EXAM: Female, 58 years old. Adjustment of external fixation devices TECHNIQUE: 10 limited C-arm films of the ankle. COMPARISON: 02/26/2018 FINDINGS: Limited C-arm films were performed as the patient has undergone adjustment of the external fixation devices around the left ankle. RAD/Ankle min 3 Views IMPRESSION: External fixation adjustment Electronically Signed: Parrish Ndiaye MD at 17:03 EST , Service support ,
--- NOTE | 2018-02-26 14:23 | RAD_ITS ---
STUDY: X-RAY - LEFT FOOT CLINICAL: Female, 58 years old. Was not external fixator adjustment. Tibiotalar fusion. TECHNIQUE: 3 view(s) of the foot. COMPARISON: Left ankle, February 26, 2018. Left foot, February 17, 2018. FINDINGS: Again seen is the external fixation device which limits evaluation of the hindfoot. The second through fourth metatarsals appear grossly normal. Again seen is mild irregularity about the mid shaft of the first metatarsal. Normal metatarsophalangeal joints. The phalanges and interphalangeal joints appear normal. RAD/Foot min 3 Views IMPRESSION: 1. External fixation device unchanged from prior study. Evaluation of the hindfoot is limited. 2. There is no interval change Electronically Signed: Indra Calhoun DO at 19:08 EST Tel [phone], Service support ,
--- NOTE | 2018-02-26 14:24 | RAD_ITS ---
STUDY: X-RAY - LEFT ANKLE REASON FOR EXAM: Female, 58 years old. Postop external fixator adjustment. Tibiotalar fusion. TECHNIQUE: 2 view(s) of the ankle. COMPARISON: February 17, 2018. FINDINGS: Again seen is the external fixation device which appears grossly unchanged in appearance from the previous examination. There is a lucency through the distal aspect of the tibia, unchanged from the prior exam.. There is poor visualization of the distal tibia with multiple small bony densities in the soft tissues in its expected position. The tibiotalar articulation appears intact. The talus, calcaneus and hindfoot are obscured by the overlying hardware. There are multiple surgical clips overlying the ankle. RAD/Ankle 2 Views IMPRESSION: External fixator. There is no major interval change when compared to February 17, 2018 Electronically Signed: Indra Calhoun DO at 16:33 EST Tel [phone], Service support ,
--- NOTE | 2018-02-26 14:25 | RAD_ITS ---
STUDY: X-RAY - LEFT TIBIA AND FIBULA REASON FOR EXAM: Female, 58 years old. Post external fixator adjustment. Tibiotalar fusion. TECHNIQUE: 2 view(s) of the tibia and fibula were obtained. COMPARISON: Left ankle, February 26, 2018. Left tibia fibula, February 17, 2018. FINDINGS: Again seen is external fixation device overlying the lower leg and ankle. No major change in the appearance of the tibia or fibula. Distal fibula is not clearly visualized and thought absent. There is no acute fracture. The knee and ankle are unchanged. Again seen is soft tissue swelling over the ankle with skin clips. RAD/Tibia & Fibula 2 Views IMPRESSION: External fixation device without major change from February 17, 2018. Electronically Signed: Inrda Calhoun DO at 16:36 EST Tel [phone], Service support ,
--- NOTE | 2018-02-26 14:27 | PCM.IMDPSTOP ---
Immediate Post-Op Note Date of Procedure: 02/26/18 Primary Surgeon/Physician: Candi Covington DPM butane compressor operator: Ashutosh Gutierrez Pre-Operative Diagnosis: L open ankle fracture, osteomyelitis Post-Operative Diagnosis: same Surgery/Procedure Performed:: R calcaneal bone graft harvest; Left lower leg external fixation application and adjustment, L lower leg soft tissue and bone debridement; L ankle bone biopsy, L tibiotalar arthrodesis, L medial ankle skin substitute application Description of Surgical Findings:: see dictation Estimated Blood Loss: 200 mL Specimen's removed: L ankle soft tissue and bone, medial Drains: daniel lateral ankle, Left Type of Anesthesia:: General - Admit VTE Documentation VTE Present on Admission: No VTE Mechan Device Prophylaxis: None VTE Pharm Prophylaxis ordered?: No Reason prophylaxis not ordered:: Medical Contraindication - recent + FOB, anemia, awaiting w/u
--- NOTE | 2018-02-26 14:32 | OP.PN_ITS ---
Immediate Post-Op Note Date of Procedure: 02/26/18 Primary Surgeon/Physician: Candi Covington DPM vault service mechanic: Ashutosh Gutierrez Pre-Operative Diagnosis: L open ankle fracture, osteomyelitis Post-Operative Diagnosis: same Surgery/Procedure Performed:: R calcaneal bone graft harvest; Left lower leg external fixation application and adjustment, L lower leg soft tissue and bone debridement; L ankle bone biopsy, L tibiotalar arthrodesis, L medial ankle skin substitute application Description of Surgical Findings:: see dictation Estimated Blood Loss: 200 mL Specimen's removed: L ankle soft tissue and bone, medial Drains: daniel lateral ankle, Left Type of Anesthesia:: General - Admit VTE Documentation VTE Present on Admission: No VTE Mechan Device Prophylaxis: None VTE Pharm Prophylaxis ordered?: No Reason prophylaxis not ordered:: Medical Contraindication - recent + FOB, anemia, awaiting w/u
--- NOTE | 2018-02-26 14:33 | RAD_ITS ---
STUDY: X-RAY - RIGHT FOOT CLINICAL: Female, 58 years old. Post calcaneus graft in the OR. TECHNIQUE: 3 view(s) of the foot. COMPARISON: Right foot, November 22, 2016. FINDINGS: There is generalized osteopenia of the osseous structures of the foot. Normal talus and tarsal bones. There are small enthesophytes at the insertions of the Achilles tendon and plantar aponeurosis upon an otherwise normal calcaneus. There is mild arthrosis of the visualized subtalar, talonavicular, calcaneocuboid, tarsal and tarsometatarsal articulations. Normal first through third metatarsi. Again seen are mild in amount of the fourth and fifth metatarsi, consistent with old healed fractures. Normal metatarsophalangeal joint of the great toe. Normal tibial and fibular sesamoid bones. Normal interphalangeal joint of the great toe. Normal phalanges of the great toe. Normal second through fifth metatarsophalangeal joints. There is now surgical absence of the fifth toe distal to the head of the proximal phalanx. Otherwise normal interphalangeal joints and phalanges of the lesser toes. The soft tissue structures are unremarkable. RAD/Foot min 3 Views IMPRESSION: Interval amputation of the fifth digit. The remainder the findings appear grossly unchanged. Electronically Signed: Indra Calhoun DO at 16:11 EST Tel [phone], Service support ,
--- NOTE | 2018-02-26 14:34 | DCINST_ITS ---
Discharge Activity: May Not Drive, May not drive while taking narcotic pain medications., May Not Shower, Use Walker, Use Crutches Ice area for (Minutes): 20 - behind knee 20 minutes of each hour while awake, b/l LE Weight Bearing Status: No weight bearing - LLE strict NWB LLE, RLE WBAT Keep extremity elevated above heart level: Operative Extremity Call your doctor if your incision/area has: Sudden Increased Bleeding Call your doctor if you observe: Fever of 101 or Higher, Shortness of breath, Chest pain, Increased palpitations (irregular heartbeat), Calf discomfort, Uncontrolled pain Cleanse incision/area with: Keep Dressing Clean & Dry Additional Dressing/Incision Instructions:: Please call Dr. Covington after reinforcement x 1 for either LE dressing. Allergies/Adverse Reactions: Allergies aspirin Allergy (Verified 02/24/18 10:24) Hives latex Allergy (Verified 02/24/18 10:24) Hives Penicillins Allergy (Verified 02/24/18 10:24) Hives naproxen [From Aleve] Adverse Reaction (Severe, Verified 02/24/18 10:24) Kidney disease Stage 3 Medications to take at Discharge Allopurinol 300 mg PO DAILY 12/03/16 Amitriptyline HCl 75 mg PO QHS 12/03/16 Atenolol 50 mg PO DAILY 12/03/16 cholecalciferol (vitamin D3) 2,000 unit capsule 2,000 unit PO DAILY 05/27/17 diltiazem CD 180 mg capsule,extended release 24 hr 180 mg PO DAILY 05/27/17 hydroxychloroquine 200 mg tablet 200 mg PO QDAY 05/27/17 omega-3 fatty acids 1,000 mg capsule 1,000 mg PO QDAY 05/27/17 sitagliptin 100 mg tablet 100 mg PO QDAY 05/27/17 gabapentin 300 mg capsule 300 mg PO TID cap 08/19/17 ipratropium 20 mcg-albuterol 100 mcg/actuation mist for inhalation 1 inh INHALATION Q6H PRN #4 g 08/22/17 Atorvastatin Calcium [Lipitor] 40 mg PO QDAY 01/13/18 Cyclobenzaprine HCl 10 mg PO TID PRN PRN 01/13/18 Multivit-Min/Iron/Folic/Lutein [Centrum Silver Women Tablet] 1 tab PO DAILY 01/13/18 Acetaminophen [Tylenol Tablet] 650 mg PO Q6H PRN PRN tablet 01/21/18 Cefepime HCl [Maxipime] 2 gm IV Q12 01/21/18 Insulin Lispro [Humalog KwikPen] See Protocol SQ ACHS 01/21/18 Magnesium Hydroxide [Milk Of Magnesia] 30 ml PO DAILY PRN PRN udc 01/21/18 Mometasone Furoate [Nasonex] 2 spray INTRANASAL QDAY 01/21/18 Vancomycin IV 1,500 mg IV Q24H 01/21/18 Primary Care Physician: Pia Newton MD [Primary Care Provider] - Test Results: Test results from this visit will be discussed in further detail at your follow- up appointment, if applicable. Please Follow Up With: Candi Covington DPM - I will round on her on the floor. Please call with questions or concerns Proposed Discharge Date: 02/26/18
--- NOTE | 2018-03-02 13:09 | OP.PCM_ITS ---
Report of Operation Date of Procedure: 02/26/18 Pre-Operative Diagnosis: L open ankle fracture, osteomyelitis Post-Operative Diagnosis: same Surgery/Procedure Performed:: R calcaneal bone graft harvest; Left lower leg external fixation application and adjustment, L lower leg soft tissue and bone debridement; L ankle bone biopsy, L tibiotalar arthrodesis, L medial ankle skin substitute application; complex closure L lateral incision Description of Surgical Findings:: Indications: Pt is a 58 yo F who presents for left leg limb salvage following an open fracture this summer. She has had numerous procedures and presents today for the next step in her recovery. She is currently in the TCU, receiving iv abx per ID and is being evaluated for her ongoing anemia and vitamin D deficiency by medicine and general surgery. All risks, complications, and alternatives were discussed with the patient, and the patient signed an informed consent. No guarantees were given. Pt understands this is a limb salvage attempt and if it fails she may need a below knee amputation. Procedure: On February 26, 2018, Kandy Young was visually and verbally identified in the preoperative holding area. The consent form was again reviewed with the patient, as were all risks, complications, and alternatives and the patient wished to proceed with the proposed surgery. The Left lower leg and right foot were marked as the correct operative extremities. The patient was brought to the operating room and placed on the operating room table in the lazy lateral position. After induction by anesthesia, A surgical time out was performed and all p resent were in agreement. a pneumatic thigh tourniquet was then placed to the left lower extremity. At this time the bilateral lower extremities were prepped and draped in the usual sterile fashion. after elevation of the left leg the tourniquet was inflated to 300 mmHg. At this time attention was directed to the Left leg. Since application of the external fixation her lower extremity edema has increased secondary to systemic processes, blood transfusions and inconsistent elevation of the LLE. I felt that at this point the ring needed to moved distally to protect her posterior calf. The Distal tibial pin was removed without incident. The ring was then slide distally. A fresh tibial pin was then placed parallel to the remaining tibial pin with bicortical purchase. 2 half rings were then attached to this tibial pin and the previous ring was also secured. appropriate spacing was noted circumferentially about the calf for both rings. The tibial pin placement and length was done under intraoperative fluoroscopy. All nuts and bolts were tightened appropriately. Large bolt cutters were used to shorten the post so that it did not impinge on her soft tissue and the remaining post was capped for her protection. . Attention was then directed to the medial wound and lateral incision, previously placed antibiotic beads were removed. Soft tissue that was nonviable and fibrotic of the lateral incision was sharply and excisionally debrided using curettes, ronguers and a #15 blade, Hematoma was evacuated. Soft tissue was then sent to pathology and for cultures. Tissue was noted to be healthy, with good bleeding. Using fresh instruments, a curette, ronguer and #15 blade were used to sharply and excisionally debride the nonviable and fibrotic tissue until healthy, bleeding bone was noted. The medial ankle wound was noted to be 8 cm x 4.5 cm x 0.5 cm at its deepest. A small medial area of tibial bone was exposed. This bone was also debrided with ronguers and soft tissue and bone was sent for pathology and cultures. Using 3L normal sterile saline in pulse lavage both the medial ankle wound and lateral ankle incision were thoroughly flushed. The medial ankle wound was then addressed. Integra bilayer skin substitute was applied to the wound with edges secured by cristian, The most medial wound with exposed bone was also deepest and packed with the remaining collagen from the extra Integra prior to securing the medial edges with cristian. The struts of the external fixator were then released from one end only to allow for a lateral approach to the ankle joint. The lateral incision was then extended both proximally and distally in a curvilinear fashion. The incision was bluntly carried deep through the subcutaneous tissues with careful attention paid to all bleeders, which were clamped and tied or bovied as necessary. All vital neurovascular structures were retracted. Under intraoperative fluoroscopy, the joint was distracted with lamina spreaders, the remaining cartilage of the tibial plafond and talar dome was resected utlizing a combination of jennifer, osteotomes, and curettes. A 0.045 k wire was then used to microfracture the resected joint. Good subchondral bleeding was noted from each bone. Secondary to the fracture, the tibia had a defect laterally. The struts were then reattached to the the external fixator and using the TL Hexapod prescription the struts were adjusted for the first stage of distraction and realignment of the tibiotalar joint. This was confirmed on intraoperative fluoroscopy. Improved alignment with distraction was noted. Attention was then turned to the lateral right calcaneal bone. A stab incision was made using a fresh #15 blade at the body of the calcaneus. Using a fresh curettes bone graft was harvested from the body of the calcaneus with care taken to avoid the peroneal tendons and sural nerve. . This was then added to cancellous bone chips and 20 cc of the patient's blood that was drawn by anesthesia. The stab incision was closed with 3.0 prolene. The bone graft was then placed at the tibiotalar arthrodesis site of the left leg. It was packed into the joint using a tamp and mallet. Good alignment was again confirmed on intraoperative fluoroscopy with bone graft in place. At this time, the second stage of the prescription for the TL Hexapod frame was performed. The struts were each adjusted accordingly to allow for compression of the tibiotalar joint. All nuts and bolts were tightened. Appropriate alignment and compression were confirmed on intraoperative fluoroscopy. I was pleased with the reduction and alignment of the tibiotalar joint as well as the bone to bone apposition. We will plan for further compression bedside in the near future. At this time closure was initiated. The lateral incision was closed using 1 prolene retention sutures as the adjustment put increased tension on the skin. the incision measured approximately 7 cm. Deep sutures were not feasible given the tissue. I considered a NPWT system for this site and that Integra however with pin and olive wire fixation I felt maintaining a seal would be difficult and would risk maceration of the tissues. To allow for drainage and to reduce strain of the central incision a daniel drain was placed. Dressings consisted of adaptic, DSD and light compression to the right foot. The left medial Integra site was dressed with adaptic and a bolster DSD dressing, the lateral incision was dressed with adaptic and DSD. Each pin site was dressed with xeroform and DSD. A light compressive bandage of aly and macario bandages was then applied. Total tourniquet time was 120 minutes with immediate capillary refill noted to all left digits upon deflation. Intra operative fluoroscopy was utilized throughout the case, > 1 hour, to aid in visualization and confirmation of fracture reduction and screw and plate fixations. Interpretation of the images was vital to my decision making process. The patient tolerated the procedure and anesthesia well. The patient was then transported to the postanesthesia care unit by a member of the anesthesia team and myself with all vital signs stable and neurovascular status of the bilateral lower extremities equal to pre-operative levels. At the end of the case all sponge, needle and instrument counts were found to be correct. polisher and buffer: Ashutosh Gutierrez Type of Anesthesia:: General Specimen's removed: L ankle soft tissue and bone, medial Drains: daniel lateral ankle, Left Estimated Blood Loss (mL): 200 mL Description of Procedure: Indications: Pt is a 58 yo F who presents for left leg limb salvage following an open fracture this summer. She has had numerous procedures and presents today for the next step in her recovery. She is currently in the TCU, receiving iv abx per ID and is being evaluated for her ongoing anemia and vitamin D deficiency by medicine and general surgery. All risks, complications, and alternatives were discussed with the patient, and the patient signed an informed consent. No guarantees were given. Pt understands this is a limb salvage attempt and if it fails she may need a below knee amputation. Procedure: On February 26, 2018, Kandy Young was visually and verbally identified in the preoperative holding area. The consent form was again reviewed with the patient, as were all risks, complications, and alternatives and the patient wished to proceed with the proposed surgery. The Left lower leg and right foot were marked as the correct operative extremities. The patient was brought to the operating room and placed on the operating room table in the lazy lateral position. After induction by anesthesia, A surgical time out was performed and all present were in agreement. a pneumatic thigh tourniquet was then placed to the left lower extremity. At this time the bilateral lower extremities were prepped and draped in the usual sterile fashion. after elevation of the left leg the tourniquet was inflated to 300 mmHg. At this time attention was directed to the Left leg. Since application of the external fixation her lower extremity edema has increased secondary to systemic processes, blood transfusions and inconsistent elevation of the LLE. I felt that at this point the ring needed to moved distally to protect her posterior calf. The Distal tibial pin was removed without incident. The ring was then slide distally. A fresh tibial pin was then placed parallel to the remaining tibial pin with bicortical purchase. 2 half rings were then attached to this tibial pin and the previous ring was also secured. appropriate spacing was noted circumferentially about the calf for both rings. The tibial pin placement and length was done under intraoperative fluoroscopy. All nuts and bolts were tightened appropriately. Large bolt cutters were used to shorten the post so that it did not impinge on her soft tissue and the remaining post was capped for her protection. . Attention was then directed to the medial wound and lateral incision, previously placed antibiotic beads were removed. Soft tissue that was nonviable and fibrotic of the lateral incision was sharply and excisionally debrided using curettes, ronguers and a #15 blade, Hematoma was evacuated. Soft tissue was then sent to pathology and for cultures. Tissue was noted to be healthy, with good bleeding. Using fresh instruments, a curette, ronguer and #15 blade were used to sharply and excisionally debride the nonviable and fibrotic tissue until healthy, bleeding bone was noted. The medial ankle wound was noted to be 8 cm x 4.5 cm x 0.5 cm at its deepest. A small medial area of tibial bone was exposed. This bone was also debrided with ronguers and soft tissue and bone was sent for pathology and cultures. Using 3L normal sterile saline in pulse lavage both the medial ankle wound and lateral ankle incision were thoroughly flushed. The medial ankle wound was then addressed. Integra bilayer skin substitute was applied to the wound with edges secured by cristian, The most medial wound with exposed bone was also deepest and packed with the remaining collagen from the extra Integra prior to securing the medial edges with cristian. The struts of the external fixator were then released from one end only to allow for a lateral approach to the ankle joint. The lateral incision was then extended both proximally and distally in a curvilinear fashion. The incision was bluntly carried deep through the subcutaneous tissues with careful attention paid to all bleeders, which were clamped and tied or bovied as necessary. All vital neurovascular structures were retracted. Under intraoperative fluoroscopy, the joint was distracted with lamina spreaders, the remaining cartilage of the tibial plafond and talar dome was resected utlizing a combination of jennifer, osteotomes, and curettes. A 0.045 k wire was then used to microfracture the resected joint. Good subchondral bleeding was noted from each bone. Secondary to the fracture, the tibia had a de fect laterally. The struts were then reattached to the the external fixator and using the TL Hexapod prescription the struts were adjusted for the first stage of distraction and realignment of the tibiotalar joint. This was confirmed on intraoperative fluoroscopy. Improved alignment with distraction was noted. Attention was then turned to the lateral right calcaneal bone. A stab incision was made using a fresh #15 blade at the body of the calcaneus. Using a fresh curettes bone graft was harvested from the body of the calcaneus with care taken to avoid the peroneal tendons and sural nerve. . This was then added to cancellous bone chips and 20 cc of the patient's blood that was drawn by anesthesia. The stab incision was closed with 3.0 prolene. The bone graft was then placed at the tibiotalar arthrodesis site of the left leg. It was packed into the joint using a tamp and mallet. Good alignment was again confirmed on intraoperative fluoroscopy with bone graft in place. At this time, the second stage of the prescription for the TL Hexapod frame was performed. The struts were each adjusted accordingly to allow for compression of the tibiotalar joint. All nuts and bolts were tightened. Appropriate alignment and compression were confirmed on intraoperative fluoroscopy. I was pleased with the reduction and alignment of the tibiotalar joint as well as the bone to bone apposition. We will plan for further compression bedside in the near future. At this time closure was initiated. The lateral incision was closed using 1 prolene retention sutures as the adjustment put increased tension on the skin. the incision measured approximately 7 cm. Deep sutures were not feasible given the tissue. I considered a NPWT system for this site and that Integra however with pin and olive wire fixation I felt maintaining a seal would be difficult and would risk maceration of the tissues. To allow for drainage and to reduce strain of the central incision a daniel drain was placed. Dressings consisted of adaptic, DSD and light compression to the right foot. The left medial Integra site was dressed with adaptic and a bolster DSD dressing, the lateral incision was dressed with adaptic and DSD. Each pin site was dressed with xeroform and DSD. A light compressive bandage of aly and macario bandages was then applied. Total tourniquet time was 120 minutes with immediate capillary refill noted to all left digits upon deflation. Intra operative fluoroscopy was utilized throughout the case, > 1 hour, to aid in visualization and confirmation of fracture reduction and screw and plate fixations. Interpretation of the images was vital to my decision making process. The patient tolerated the procedure and anesthesia well. The patient was then transported to the postanesthesia care unit by a member of the anesthesia team and myself with all vital signs stable and neurovascular status of the bilateral lower extremities equal to pre-operative levels. Grafts/Implants Used: Integra bilayer skin substitute,Orthofix TL Hexapod external fixation, - Complications none - Admit VTE Documentation VTE Present on Admission: No VTE Mechan Device Prophylaxis: None Reason prophylaxis not ordered:: Medical Contraindication - current anemia requiring transfusion and EGD, LGI scope
--- OUTSIDE RECORDS SUMMARY | 2018-04-23 06:24 | XMS RPT_ITS ---
:1960 Author Organization OHIP Support Name Relationship Address Phone D Unavailable Unavailable Unavailable TOMASSETTI, RANDOLPH Unavailable [address] + [place] [address] D Unavailable Unavailable Unavailable TOMASSETTI, RANDOLPH Unavailable [address] + [place] [address] D Unavailable Unavailable Unavailable TOMASSETTI, RANDOLPH Unavailable [address] + [place] [address] D Unavailable Unavailable Unavailable TOMASSETTI, RANDOLPH Unavailable [address] + [place] [address] D Unavailable Unavailable Unavailable TOMASSETTI, RANDOLPH Unavailable [address] + [place] [address] D Unavailable Unavailable Unavailable TOMASSETTI, RANDOLPH Unavailable [address] + [place] [address] D Unavailable Unavailable Unavailable TOMASSETTI, RANDOLPH Unavailable [address] + [place] [address] D Unavailable Unavailable Unavailable TOMASSETTI, RANDOLPH Unavailable [address] + [place] [address] D Unavailable Unavailable Unavailable TOMASSETTI, RANDOLPH Unavailable [address] + [place] [address] D Unavailable Unavailable Unavailable TOMASSETTI, RANDOLPH Unavailable [address] + [place] [address] D Unavailable Unavailable Unavailable TOMASSETTI, RANDOLPH Unavailable [address] + [place] [address] D Unavailable Unavailable Unavailable TOMASSETTI, RANDOLPH Unavailable [address] + [place] [address] D Unavailable Unavailable Unavailable TOMASSETTI, RANDOLPH Unavailable [address] + [place] [address] D Unavailable Unavailable Unavailable TOMASSETTI, RANDOLPH Unavailable [address] + [place] [address] D Unavailable Unavailable Unavailable TOMASSETTI, RANDOLPH Unavailable [address] + [place] [address] D Unavailable Unavailable Unavailable TOMASSETTI, RANDOLPH Unavailable [address] + [place] [address] D Unavailable Unavailable Unavailable TOMASSETTI, RANDOLPH Unavailable [phone] [place] [address] D Unavailable Unavailable Unavailable TOMASSETTI, RANDOLPH Unavailable [address] + [place] [address] D Unavailable Unavailable Unavailable TOMASSETTI, RANDOLPH Unavailable [address] + [place] [address] D Unavailable Unavailable Unavailable TOMASSETTI, RANDOLPH Unavailable [address] + [place] [address] D Unavailable Unavailable Unavailable TOMASSETTI, RANDOLPH Unavailable [phone] [place] [address] D Unavailable Unavailable Unavailable TOMASSETTI, RANDOLPH Unavailable [address] + [place] [address] D Unavailable Unavailable Unavailable TOMASSETTI, RANDOLPH Unavailable [address] + [place] [address] D Unavailable Unavailable Unavailable TOMASSETTI, RANDOLPH Unavailable [address] + [place] [address] D Unavailable Unavailable Unavailable TOMASSETTI, RANDOLPH Unavailable [phone] [place] [address] TOMASSETTI, FREDO Unavailable Unavailable + TOMASSETTI, RANDOLPH Unavailable Unavailable + TOMASSETTI, FREDO Unavailable Unavailable + TOMASSETTI, RANDOLPH Unavailable Unavailable + D Unavailable Unavailable Unavailable TOMASSETTI, RANDOLPH Unavailable [address] + [place] [address] D Unavailable Unavailable Unavailable TOMASSETTI, RANDOLPH Unavailable [phone] [place] [address] D Unavailable Unavailable Unavailable TOMASSETTI, RANDOLPH Unavailable [phone] [place] [address] TOMASSETTI, FREDO Unavailable Unavailable + TOMASSETTI, RANDOLPH Unavailable Unavailable + D Unavailable Unavailable Unavailable TOMASSETTI, RANDOLPH Unavailable [address] + [place] [address] TOMASSETTI, FREDO Unavailable Unavailable + TOMASSETTI, RANDOLPH Unavailable Unavailable + TOMASSETTI, FREDO Unavailable Unavailable + TOMASSETTI, RANDOLPH Unavailable Unavailable + TOMASSETTI, FREDO Unavailable Unavailable + TOMASSETTI, RANDOLPH Unavailable Unavailable + D Unavailable Unavailable Unavailable TOMASSETTI, RANDOLPH Unavailable [address] + [place] [address] D Unavailable Unavailable Unavailable TOMASSETTI, RANDOLPH Unavailable [address] + [place] [address] D Unavailable Unavailable Unavailable TOMASSETTI, RANDOLPH Unavailable [address] + [place] [address] D Unavailable Unavailable Unavailable TOMASSETTI, RANDOLPH Unavailable [address] + [place] [address] D Unavailable Unavailable Unavailable TOMASSETTI, RANDOLPH Unavailable [address] + [place] [address] D Unavailable Unavailable Unavailable TOMASSETTI, RANDOLPH Unavailable [address] + [place] [address] D Unavailable Unavailable Unavailable TOMASSETTI, RANDOLPH Unavailable [address] + [place] [address] D Unavailable Unavailable Unavailable TOMASSETTI, RANDOLPH Unavailable [address] + [place] [address] D Unavailable Unavailable Unavailable TOMASSETTI, RANDOLPH Unavailable [address] + [place] [address] D Unavailable Unavailable Unavailable TOMASSETTI, RANDOLPH Unavailable [address] + [place] [address] D Unavailable Unavailable Unavailable TOMASSETTI, RANDOLPH Unavailable [address] + [place] [address] D Unavailable Unavailable Unavailable TOMASSETTI, RANDOLPH Unavailable [address] + [place] [address] D Unavailable Unavailable Unavailable TOMASSETTI, RANDOLPH Unavailable [address] + [place] [address] D Unavailable Unavailable Unavailable TOMASSETTI, RANDOLPH Unavailable [address] + [place] [address] D Unavailable Unavailable Unavailable TOMASSETTI, RANDOLPH Unavailable [address] + [place] [address] D Unavailable Unavailable Unavailable TOMASSETTI, RANDOLPH Unavailable [address] + [place] [address] D Unavailable Unavailable Unavailable TOMASSETTI, RANDOLPH Unavailable [address] + [place] [address] D Unavailable Unavailable Unavailable TOMASSETTI, RANDOLPH Unavailable [address] + [place] [address] D Unavailable Unavailable Unavailable TOMASSETTI, RANDOLPH Unavailable [address] + [place] [address] D Unavailable Unavailable Unavailable TOMASSETTI, RANDOLPH Unavailable [address] + [place] [address] Care Team Providers Name Role Phone MD TRACEY MELGOZA Attending Unavailable MANNY CALVERT, DR. RBINK Consulting Unavailable VESNA SMITH MD Admitting Unavailable KENY NATH MD Consulting Unavailable RENATO GOMEZ, DR. BANDAR Murray Consulting Unavailable SANDY CALVERT, DR. STEPHANIE Vaz Consulting Unavailable VESNA SMITH MD Consulting Unavailable ZHANG MCKEON MD Consulting Unavailable MARQUIS OJ MD Consulting Unavailable LEONARDA CALVERT, DR. EVELIA Pugh Consulting Unavailable OCTAVIO CATALAN MD Consulting Unavailable WHITLEY YOUNG MD Consulting Unavailable GATAAJAY QUEEN DPM Consulting Unavailable MICAH CALVERT MD. YING Holm Admitting Unavailable MICAH CALVERT MD. YING Holm Attending Unavailable RAJAT GOMEZ, DR. DEO Burgos Consulting Unavailable MICAH CALVERT MD. YING Holm Consulting Unavailable MARY KAY BUTLER MD Consulting Unavailable VESNA SMITH MD Consulting Unavailable MICAH CALVERT MD. YING Holm Admitting Unavailable MICAH CALVERT MD. YING Holm Attending Unavailable LLUVIA HOLLIDAY MD Consulting Unavailable MANNY CALVERT, DR. BRINK Consulting Unavailable ZHANG WEINSTEIN MD Consulting Unavailable MARY KAY BUTLER MD Consulting Unavailable NIKKI SKINNER, [place] Consulting Unavailable MARQUIS JO MD Consulting Unavailable SERAFIN CALVERT, DR. PAZ Consulting Unavailable MANNY CALVERT, DR. BRINK Attending Unavailable NEETU GOMEZ, FATMATA Consulting Unavailable MICAH CALVERT, . YING Holm Attending Unavailable JOSE MARISCAL MD Admitting Unavailable JOSE MARISCAL MD Attending Unavailable EMANUEL ROMERO MD Consulting Unavailable MANNY CALVERT, DR. BRINK Consulting Unavailable SANTANA NAPIER DO Consulting Unavailable MICAH CALVERT MD. YING Holm Consulting Unavailable FranNathanael tesfaye Attending Unavailable Mikhail, Gerson Chi Referring Unavailable Livan Worley Attending Unavailable Oleghe, Efewongbe Primary Care Unavailable Livan Worley Attending Unavailable Oleghe, Efewongbe Primary Care Unavailable Livan Worley Attending Unavailable Oleghe, Efewongbe Primary Care Unavailable Vellanaustin, Leny Attending Unavailable Vellanki Leny Referring Unavailable Oleghe, Efewongbe Primary Care Unavailable Oleghe, Efewongbe Attending Unavailable Oleghe, Efewongbe Referring Unavailable Oleghe, Efewongbe Primary Care Unavailable Oleghe, Efewongbe Attending Unavailable Oleghe, Efewongbe Referring Unavailable Oleghe, Efewongbe Primary Care Unavailable Tanphaichitr, Natthavat Attending Unavailable Tanphaichitr, Natthavat Referring Unavailable Oleghe, Efewongbe Primary Care Unavailable Tanphaichitr, Natthavat Attending Unavailable Oleghe, Efewongbe Primary Care Unavailable Livan Worley Attending Unavailable Oleghe, Efewongbe Primary Care Unavailable Oleghe, Efewongbe Attending Unavailable Oleghe, Efewongbe Referring Unavailable Oleghe, Efewongbe Primary Care Unavailable Oleghe, Efewongbe Primary Care Unavailable Kathy Echavarria EDUCATION MANAGERS-C Attending Unavailable Kathy Echavarria EDUCATION MANAGERS-C Attending Unavailable Oleghe, Efewongbe Primary Care Unavailable Jose Robbins Attending Unavailable Jose Robbins Referring Unavailable Oleghe, Efewongbe Primary Care Unavailable Oleghe, Efewongbe Attending Unavailable Oleghe, Efewongbe Referring Unavailable Oleghe, Efewongbe Primary Care Unavailable Oleghe, Efewongbe Attending Unavailable Oleghe, Efewongbe Referring Unavailable Oleghe, Efewongbe Primary Care Unavailable Kathy Echavarria EDUCATION MANAGERS-C Attending Unavailable Oleghe, Efewongbe Primary Care Unavailable Kathy Echavarria EDUCATION MANAGERS-C Attending Unavailable Oleghe, Efewongbe Primary Care Unavailable Leny Jimenez Attending Unavailable Leny Jimenez Referring Unavailable Oleghe, Efewongbe Primary Care Unavailable Kathy Echavarria EDUCATION MANAGERS-C Attending Unavailable Oleghe, Efewongbe Primary Care Unavailable Oleghe, Efewongbe Primary Care Unavailable Rick Barcenas Attending Unavailable Kathy Echavarria EDUCATION MANAGERS-C Attending Unavailable Oleghe, Efewongbe Primary Care Unavailable Latosha Hargrove Attending Unavailable Latosha Hargrove Referring Unavailable Oleghe, Efewongbe Primary Care Unavailable Octavio Pulido Attending Unavailable Oleghe, Efewongbe Referring Unavailable Oleghe, Efewongbe Primary Care Unavailable Miguelina Salazar Attending Unavailable Oleghe, Efewongbe Primary Care Unavailable CorbyMary LouJuan Referring Unavailable Agyepong, Darwin Admitting Unavailable Everett Hillman Attending Unavailable Jose Robbins Consulting Unavailable Ying Bejarano Consulting Unavailable Candi Covington Consulting Unavailable Pita, Darwin Admitting Unavailable Agyewhitneyg, Darwin Attending Unavailable Corby, Juan Referring Unavailable Oleghe, Efewongbe Primary Care Unavailable Ying Bejarano Consulting Unavailable Jose Robbins Consulting Unavailable Candi Covington Consulting Unavailable Everett Hillman Consulting Unavailable Darwin Lema Admitting Unavailable Everett Hillman Attending Unavailable Corby, Juan Referring Unavailable Oleghe, Efewongbe Primary Care Unavailable Darci Ying Consulting Unavailable Jose Robbins A Consulting Unavailable Domitilak, Candi Consulting Unavailable Everett Hillman F Consulting Unavailable Agbelinda, Darwin Admitting Unavailable Everett Hillman F Attending Unavailable Corby, Juan Referring Unavailable Oleghe, Efewongbe Primary Care Unavailable Darci Ying Consulting Unavailable Jose Robbins Consulting Unavailable Domitilak, Candi Consulting Unavailable Everett Hillman Consulting Unavailable Agyepong, Darwin Admitting Unavailable Kotsonis, Everett F Attending Unavailable Corby, Juan Referring Unavailable Oleghe, Efewongbe Primary Care Unavailable Ying Bejarano Consulting Unavailable Jose Robbins Consulting Unavailable MycdeepalikCandi Consulting Unavailable Kotsonis, Everett F Consulting Unavailable Agyepong, Darwin Admitting Unavailable Kotsonis, Everett F Attending Unavailable Corby, Juan Referring Unavailable Oleghe, Efewongbe Primary Care Unavailable Ying Bejarano Consulting Unavailable Jose Robbins Consulting Unavailable Razahak, Candi Consulting Unavailable Kotsonis, Everett F Consulting Unavailable Kotsonis, Everett F Attending Unavailable Kurtisyepong, Darwin Admitting Unavailable Corby, Juan Referring Unavailable Oleghe, Efewongbe Primary Care Unavailable Jose Robbins Consulting Unavailable Ying Bejarano Consulting Unavailable DomitilakCandi Consulting Unavailable Kotsonis, Everett F Consulting Unavailable Mikhail, Gerson Chi Admitting Unavailable Mikhail, Gerson Chi Attending Unavailable Mikhail, Gerson Chi Referring Unavailable Oleghe, Efewongbe Primary Care Unavailable Ying Bejarano Consulting Unavailable Pilar, Nellie Consulting Unavailable Domitilak, Candi Consulting Unavailable Bandar Ray Consulting Unavailable Ying Ty Consulting Unavailable Krzysztof Sanchez Consulting Unavailable DomitilakJosueCandi Attending Unavailable Oleghe, Efewongbe Primary Care Unavailable Domitilak Candi Referring Unavailable Mikhail, Gerson Chi Attending Unavailable Oleghe, Efewongbe Primary Care Unavailable Candi Covington Attending Unavailable Mychak Candi Referring Unavailable Oleghe, Efewongbe Primary Care Unavailable Sravan James Attending Unavailable Kotsonis, Everett F Referring Unavailable Octavio Humphrey Attending Unavailable Kotsonis, Everett F Referring Unavailable Mychak Candi Attending Unavailable Mychak, Candi Referring Unavailable Oleghe, Efewongbe Primary Care Unavailable Mikhail, Gerson Chi Attending Unavailable Mikhail, Gerson Chi Referring Unavailable Oleghe, Efewongbe Primary Care Unavailable Mikhail, Gerson Chi Admitting Unavailable Bandar Ray Attending Unavailable Mikhail, Gerson Chi Referring Unavailable Oleghe, Efewongbe Primary Care Unavailable Ying Bejarano Consulting Unavailable Luisitoone, Nellie Consulting Unavailable Mychak, Candi Consulting Unavailable Slaby, Bandar Consulting Unavailable Mikhail, Gerson Chi Consulting Unavailable Mychak, Candi Attending Unavailable Mychak, Candi Referring Unavailable Oleghe, Efewongbe Primary Care Unavailable Cebul, Ying Consulting Unavailable Cebul, Ying Attending Unavailable Cebul, Ying Referring Unavailable Oleghe, Efewongbe Primary Care Unavailable Cebul, Ying Attending Unavailable Cebul, Ying Referring Unavailable Oleghe, Efewongbe Primary Care Unavailable Mikhail, Gerson Chi Admitting Unavailable Mikhail, Gerson Chi Referring Unavailable Oleghe, Efewongbe Primary Care Unavailable Ying Bejarano Consulting Unavailable Cebul, Ying Attending Unavailable Fascione, Nellie Consulting Unavailable Mychak, Candi Consulting Unavailable Slaby, Bandar Consulting Unavailable Cebul, Ying Consulting Unavailable Calabretta, Krzysztof Consulting Unavailable Mikhail, Gerson Chi Consulting Unavailable Mikhail, Gerson Chi Admitting Unavailable Viviane Aranda PA-C Attending Unavailable Mikhail, Gerson Chi Referring Unavailable Oleghe, Efewongbe Primary Care Unavailable Ying Bejarano Consulting Unavailable Fascione, Nellie Consulting Unavailable Mychak, Candi Consulting Unavailable Slaby, Bandar Consulting Unavailable Cebul, Ying Consulting Unavailable Calabretta, Krzysztof Consulting Unavailable Mikhail, Gerson Chi Consulting Unavailable Fran, [place] Attending Unavailable Mikhail, Gerson Chi Referring Unavailable Cebul, Ying Attending Unavailable Mychak, Candi Attending Unavailable Oleghe, Efewongbe Primary Care Unavailable Mychak, Candi Referring Unavailable PROBLEMS PROBLEMS DATE TYPE CONDITION / CODE ATTENDING STATUS SOURCE 03/13/2018 Unknown R94.31 - Abnormal Fran, Nathanael Active [place] electrocardiogram [facility] [ECG] [EKG] / Hospital R94.31(ICD-10) Repository 02/19/2018 Unknown E11.621 - Type 2 Mikhail, Gersno Chi Active [place] diabetes mellitus with Community foot ulcer / Hospital E11.621(ICD-10) Repository 02/19/2018 Unknown L97.509 - Non-pressure Mikhail, Gerson Chi Active [place] chronic ulcer of other Community part of unspecified Hospital foot with unspecified Repository severity / L97.509(ICD-10) 03/03/2018 Unknown I10 - Essential Fran, [place] Active [place] (primary) hypertension Community / I10(ICD-10) Hospital Repository 03/03/2018 Unknown I25.10 - Nathanael Peters Active [place] 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 Repository without angina pectoris / I25.10(ICD-10) 03/12/2018 Unknown E11.9 - Type 2 Ying Ty Active [place] diabetes mellitus Community without complications Hospital / E11.9(ICD-10) Repository 03/12/2018 Unknown R53.81 - Other malaise Ying Ty Active [place] / R53.81(ICD-10) [facility] Hospital Repository 02/24/2018 Unknown L08.9 - Local Southern, Active [place] infection of the skin [facility] and subcutaneous Hospital tissue, unspecified / Repository L08.9(ICD-10) 10/02/2017 Unknown M54.17 - Oleghe, Active [place] Radiculopathy, [facility] lumbosacral region / Hospital M54.17(ICD-10) Repository 08/19/2017 Unknown G62.9 - Oleghe, Active [place] Polyneuropathy, [facility] unspecified / Hospital G62.9(ICD-10) Repository 08/12/2017 Unknown I70.261 - Jose Robbins Active [place] Atherosclerosis of A [facility] [place] 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, right leg / I70.261(ICD-10) 06/24/2017 Unknown W19.XXXA - Unspecified Oleghe, Active [place] fall, initial [facility] encounter / Hospital W19.XXXA(ICD-10) Repository 06/24/2017 Unknown E66.9 - Obesity, Oleghe, Active [place] unspecified / [facility] E66.9(ICD-10) Hospital Repository 06/10/2017 Unknown N18.3 - Chronic kidney Tanphaichitr, Active [place] disease, stage 3 [facility] (moderate) / Hospital N18.3(ICD-10) Repository 05/29/2017 Unknown E11.52 - Type 2 Oleghe, Active [place] diabetes mellitus with [facility] diabetic peripheral Hospital angiopathy with Repository gangrene / E11.52(ICD-10) 05/29/2017 Unknown E11.42 - Type 2 Oleghe, Active [place] diabetes mellitus with [facility] diabetic Hospital polyneuropathy / Repository E11.42(ICD-10) 05/06/2017 Unknown M06.4 - Inflammatory Vellanki, Active [place] polyarthropathy / [facility] M06.4(ICD-10) Hospital Repository 05/06/2017 Unknown M79.7 - Fibromyalgia / Vellanki, Active [place] M79.7(ICD-10) [facility] Repository 05/06/2017 Unknown M32.9 - Systemic lupus Vellanki, Active [place] erythematosus, [facility] unspecified / Hospital M32.9(ICD-10) Repository 05/06/2017 Unknown M10.9 - Gout, Vellanki, Active [place] unspecified / [facility] Community M10.9(ICD-10) Hospital Repository 05/06/2017 Unknown K76.0 - Fatty (change Vellanki, Active [place] of) liver, not [facility] elsewhere classified / Hospital K76.0(ICD-10) Repository 05/06/2017 Unknown N18.9 - Chronic kidney Vellanki, Active [place] disease, unspecified / [facility] N18.9(ICD-10) Hospital Repository 05/06/2017 Unknown G47.33 - Obstructive Vellanki, Active [place] sleep apnea (adult) [facility] (pediatric) / Hospital G47.33(ICD-10) Repository 05/06/2017 Unknown E78.5 - Vellanki, Active [place] Hyperlipidemia, [facility] unspecified / Hospital E78.5(ICD-10) Repository 05/06/2017 Unknown J44.9 - Chronic Vellanki, Active [place] obstructive pulmonary [facility] disease, unspecified / Hospital J44.9(ICD-10) Repository PROCEDURES PROCEDURES No Procedure Records FoundRESULTS RESULTS VENOUS DUPLEX LOWER Observed: 03/17/2018 Status: F Source: [place] EXTREMITY 7:41 PM [facility] REPOSITORY [facility] Cardiovascular Services [address] [place] [address] Venous Duplex US, Unilateral 03/17/18 1233 MR#: [id number] Acct: [id number] Name: KANDY LAUREN Rep #: [id number] : 1960 58 From: Fidel Corona MD Attending Dr: Mikhail SKINNER,Gerson Watson Status: ADM IN Ordering Dr: Gerson Elizondo MD Date: 03/17/18 Location: U Sex: F C Admitted: 01/21/18 Reason For Study: pain Procedure LEFT Exam performed portable in patient room. GSV is normal. The exam was diagnostic. CFV is compressible, spontaneous, phasic, Limited views of calf veins due to external competent, and demonstrates normal fixation device. augmentation. A preliminary report was called and/or faxed FV is compressible, spontaneous, phasic, to the pt's RN. competent and demonstrates normal augmentation. POP V is compressible, spontaneous, phasic, competent and demonstrates normal augmentation. T/P Trunk is compressible. PTV is compressible. LT PerV is compressible. Interpretation Summary Deep veins of the left lower extremity are patent and compressible segmentally. There is no evidence of left lower extremity deep vein thrombosis. Valvular competence appears intact within the proximal deep venous system on the left . The left greater saphenous vein appears patent and compressible segmentally. Ordering Physician: Gerson Elizondo Performed By: Abdoul Porter RVT 03/17/181939 Date Fidel Corona MD CC: Pia Newton MD; Gerson Elizondo MD Date Dictated: 03/17/18 1233 Date Transcribed: 03/17/181939 Political Worker: Signed FOOT MIN 3 VIEWS Observed: 03/17/2018 Status: F Source: [place] 1:05 PM [facility] REPOSITORY [facility] Imaging Services [address] [place] [address] [place] [address] Foot min 3 Views MR#: [id number] Acct: [id number] Name: KANDY LAUREN ANN Rep #: [id number] : 1960 F 58 From: Rodger Torres DO PCP: Pia Newton MD Status: ADM IN Study: Foot min 3 Views Date of Exam: 03/17/18 Exam# [id number] Ordering Dr: Candi Covington DPM STUDY: X-RAY - LEFT FOOT CLINICAL: Female, 58 years old. Lower leg pain TECHNIQUE: 3 view(s) of the foot. COMPARISON: None. FINDINGS: Large external fixator device is noted about the lower leg and left foot. This limits detail evaluation. There is cortical irregularity of the medial aspect of the mid shaft first metatarsal, likely from prior partial fixator device. No evidence of left foot fracture otherwise. Soft tissue swelling is noted RAD/Foot min 3 Views IMPRESSION: Limited exam as above. Cortical irregularity of the medial aspect of the mid shaft first metatarsal, likely from prior fixator placement. Soft tissue swelling Electronically Signed: Rodger Torres DO at 13:35 EST Tel , Service support , CC: NORA Covington; Pia Newton MD Political Worker: Signed ANKLE MIN 3 VIEWS Observed: 03/17/2018 Status: F Source: [place] 1:05 PM [facility] REPOSITORY [facility] Imaging Services [address] [place] [address] Ankle min 3 Views MR#: [id number] Acct: [id number] Name: KANDY LAUREN ANN Rep #: [id number] : 1960 F 58 From: David Garcia MD PCP: Pia Newton MD Status: ADM IN Study: Ankle min 3 Views Date of Exam: 03/17/18 Exam# [id number] Ordering Dr: Candi Covington DPM STUDY: X-RAY - LEFT ANKLE REASON FOR EXAM: Female, 58 years old. Lower leg pain. TECHNIQUE: 3 view(s) of the ankle. COMPARISON: 03/10/2018. FINDINGS: This exam is markedly limited because of an extreme degree of metal artifact from external fixator device. Grossly stable alignment of the tibial and fibular shafts with the foot. Stable displaced fracture of the medial malleolus. Stable appearance of what appears to be bone graft material around the distal tibia especially laterally, where there appears to have been resection of the lateral malleolus. It appears that since prior exam, a soft tissue drain has been removed from the lateral aspect of the ankle. No definite bony fusion is seen across the ankle joint. RAD/Ankle min 3 Views IMPRESSION: Extremely limited by marked overlying metal artifact. The alignment between the distal tibia and fibula and the foot remain satisfactory. However, no evidence for fusion as of yet. Electronically Signed: David Garcia MD at 16:52 EST , Service support , CC: NORA Covington; Pia Newton MD Political Worker: Signed TIBIA AND FIBULA Observed: 03/17/2018 Status: F Source: GANTT 2 VIEWS 1:05 PM [facility] REPOSITORY [facility] Imaging Services [address] [place] [address] Tibia AND Fibula 2 Views MR#: [id number] Acct: [id number] Name: KANDY LAUREN Rep #: [id number] : 1960 F 58 From: David Garcia MD PCP: Pia Newton MD Status: ADM IN Study: Tibia AND Fibula 2 Views Date of Exam: 03/17/18 Exam# [id number] Ordering Dr: Candi [place] DPM STUDY: X-RAY - LEFT TIBIA AND FIBULA REASON FOR EXAM: Female, 58 years old. Lower leg pain. TECHNIQUE: 2 view(s) of the tibia and fibula were obtained. COMPARISON: 03/10/2018. FINDINGS: Limited by marked overlying metal artifact. See separate report for discussion of the ankle. Proximal and mid tibial shafts show no acute abnormalities. Screw holes are seen of the mid tibial shaft. Postsurgical and fracture changes of the distal tibia and fibula as discussed separately. RAD/Tibia AND Fibula 2 Views IMPRESSION: Extreme degree of overlying metal artifact. No acute abnormality of the proximal to mid tibial and fibular shafts. Electronically Signed: David Garcia MD at 17:19 EST , Service support , CC: NORA [place]; Pia Newton MD Political Worker: Signed KNEE 1 OR 2 VIEWS Observed: 03/17/2018 Status: F Source: GANTT 12:25 PM [facility] REPOSITORY [facility] Imaging Services [address] [place] [id number] Knee 1 or 2 Views MR#: [id number] Acct: [id number] Name: KANDY LAUREN Rep #: [id number] : 1960 F 58 From: David Garcia MD PCP: Pia Newton MD Status: ADM IN Study: Knee 1 or 2 Views Date of Exam: 03/17/18 Exam# [id number] Ordering Dr: Gerson Elizondo MD STUDY: X-RAY - LEFT KNEE REASON FOR EXAM: Female, 58 years old. Lower leg pain. TECHNIQUE: 2 view(s) of the knee. COMPARISON: None. FINDINGS: Normal visualized distal femur. Normal visualized proximal tibia and fibula. Normal proximal tibiofibular articulation. There is no demonstrated fracture. Normal medial femorotibial compartment. Normal lateral femorotibial compartment. Normal patellofemoral articulation. There is a soft tissue prominence in the suprapatellar region suggesting a small volume joint effusion. There are atherosclerotic calcifications. RAD/Knee 1 or 2 Views IMPRESSION: Limited two-view study of the knee shows a small effusion and is otherwise negative. Electronically Signed: David Garcia MD at 17:16 EST , Service support , CC: Pia Newton MD; Gerson Elizondo MD Political Worker: Signed BASIC METABOLIC Collected: 03/17/2018 Status: F Source: ANA PROFILE (BMP) 6:30 AM [facility] REPOSITORY TYPE CODE TESTS RESULT OUT OF RANGE REFERENCE UNITS LAB L501.0100 74-106 mg/dL High GLU 125 Result Comment: Fasting Glucose result from 100 to 125 mg/dL suggests IMPAIRED HOMEOSTASIS per A.D.A. criteria. Please note revised GLUCOSE reference range effective 2017. LAB L501.1000 7-18 mg/dL High BUN 62 LAB L501.1100 0.55-1.02 mg/dL High CREAT,SERUM 1.83 Result Comment: The validity of the calculated GFR AND GFRAA in patients over 70 years has not been determined. Clinical correlation is essential. LAB L501.1110 >60 mL/min Low EST GFR 30 Result Comment: Non- GFR Calc LAB L501.1115 >60 mL/min Low EST GFR - AA 36 Result Comment: GFR Calc LAB L501.1255 ml/min Normal Estimated CRCL 30.60 LAB L501.1300 10-20 RATIO High BUN/CRE 33.9 LAB L501.2200 8.5-10 mg/dL Normal .1 CA 9.0 LAB L501.5300 136-14 mmol/L Normal 5 NA 142 LAB L501.5600 3.5-5. mmol/L Normal 1 K 4.4 LAB L501.5900 98-107 mmol/L High CL 108 LAB L501.6100 21.0-3 mmol/L Normal 2.0 CO2 23.0 LAB L501.6200 5-15 Normal GAP 11 Performed By: #### L500.2500 #### [facility] [address] [place], [address] BEDSIDE GLUCOSE Collected: 03/17/2018 Status: F Source: ANA 6:27 AM [facility] REPOSITORY TYPE CODE TESTS RESULT OUT OF REFERENCE UNITS RANGE LAB L501.080 70-110 mg/dL High BEDSIDE GLU 122 Result Comment: MANAGEMENT OF PATIENT CARE PER NURSING PROTOCOL Performed By: #### L501.080 #### [facility] Point of Care [address] [place] [address] BEDSIDE GLUCOSE Collected: 03/16/2018 Status: F Source: ANA 6:57 AM [facility] REPOSITORY TYPE CODE TESTS RESULT OUT OF REFERENCE UNITS RANGE LAB L501.080 70-110 mg/dL High BEDSIDE GLU 131 Result Comment: MANAGEMENT OF PATIENT CARE PER NURSING PROTOCOL Performed By: #### L501.080 #### [facility] Point of Care [address] [place] [address] BASIC METABOLIC Collected: 03/16/2018 Status: F Source: ANA PROFILE (BMP) 5:15 AM [facility] REPOSITORY Order Comment: SPECIMEN OBTAINED FROM LINE DRAW TYPE CODE TESTS RESULT OUT OF RANGE REFERENCE UNITS LAB L501.0100 74-106 mg/dL High GLU 138 Result Comment: Fasting Glucose result greater than or equal to 126 mg/dL suggests DIABETES MELLITUS per A.D.A. criteria. Please note revised GLUCOSE reference range effective 2017. LAB L501.1000 7-18 mg/dL High BUN 65 LAB L501.1100 0.55-1.02 mg/dL High CREAT,SERUM 1.93 Result Comment: The validity of the calculated GFR AND GFRAA in patients over 70 years has not been determined. Clinical correlation is essential. LAB L501.1110 >60 mL/min Low EST GFR 28 Result Comment: Non- GFR Calc LAB L501.1115 >60 mL/min Low EST GFR - AA 34 Result Comment: GFR Calc LAB L501.1255 ml/min Normal Estimated CRCL 29.02 LAB L501.1300 10-20 RATIO High BUN/CRE 33.7 LAB L501.2200 8.5-10 mg/dL Normal .1 CA 8.9 LAB L501.5300 136-14 mmol/L Normal 5 NA 143 LAB L501.5600 3.5-5. mmol/L Normal 1 K 4.4 LAB L501.5900 98-107 mmol/L High CL 109 LAB L501.6100 21.0-3 mmol/L Normal 2.0 CO2 24.0 LAB L501.6200 5-15 Normal GAP 10 Performed By: #### L500.2500 #### [facility] [address] [place], [place], [address] BEDSIDE GLUCOSE Collected: 03/15/2018 Status: F Source: GANTT 6:23 AM [facility] REPOSITORY TYPE CODE TESTS RESULT OUT OF REFERENCE UNITS RANGE LAB L501.080 70-110 mg/dL High BEDSIDE GLU 150 Result Comment: MANAGEMENT OF PATIENT CARE PER NURSING PROTOCOL Performed By: #### L501.080 #### [facility] Point of Care [address] [facility] [place] [address] BASIC METABOLIC Collected: 03/15/2018 Status: F Source: GANTT PROFILE (BMP) 3:08 AM [facility] REPOSITORY Order Comment: SPECIMEN OBTAINED FROM LINE DRAW TYPE CODE TESTS RESULT OUT OF RANGE REFERENCE UNITS LAB L501.0100 74-106 mg/dL High GLU 120 Result Comment: Fasting Glucose result from 100 to 125 mg/dL suggests IMPAIRED HOMEOSTASIS per A.D.A. criteria. Please note revised GLUCOSE reference range effective 2017. LAB L501.1000 7-18 mg/dL High BUN 65 LAB L501.1100 0.55-1.02 mg/dL High CREAT,SERUM 2.03 Result Comment: The validity of the calculated GFR AND GFRAA in patients over 70 years has not been determined. Clinical correlation is essential. LAB L501.1110 >60 mL/min Low EST GFR 27 Result Comment: Non- GFR Calc LAB L501.1115 >60 mL/min Low EST GFR - AA 32 Result Comment: GFR Calc LAB L501.1255 ml/min Normal Estimated CRCL 27.59 LAB L501.1300 10-20 RATIO High BUN/CRE 32.0 LAB L501.2200 8.5-10 mg/dL Normal .1 CA 9.0 LAB L501.5300 136-14 mmol/L Normal 5 NA 141 LAB L501.5600 3.5-5. mmol/L Normal 1 K 4.8 LAB L501.5900 98-107 mmol/L High CL 108 LAB L501.6100 21.0-3 mmol/L Normal 2.0 CO2 25.0 LAB L501.6200 5-15 Normal GAP 8 Performed By: #### L500.2500 #### [facility] [address] [place], [place], [address] BEDSIDE GLUCOSE Collected: 03/14/2018 Status: F Source: GANTT 6:37 AM [facility] REPOSITORY TYPE CODE TESTS RESULT OUT OF REFERENCE UNITS RANGE LAB L501.080 70-110 mg/dL High BEDSIDE GLU 150 Result Comment: MANAGEMENT OF PATIENT CARE PER NURSING PROTOCOL Performed By: #### L501.080 #### [facility] Point of Care [address] [place] [address] BASIC METABOLIC Collected: 03/14/2018 Status: F Source: ANA PROFILE (BMP) 5:05 AM [facility] REPOSITORY TYPE CODE TESTS RESULT OUT OF RANGE REFERENCE UNITS LAB L501.0100 74-106 mg/dL High GLU 152 Result Comment: Fasting Glucose result greater than or equal to 126 mg/dL suggests DIABETES MELLITUS per A.D.A. criteria. Please note revised GLUCOSE reference range effective 2017. LAB L501.1000 7-18 mg/dL High BUN 63 LAB L501.1100 0.55-1.02 mg/dL High CREAT,SERUM 1.96 Result Comment: The validity of the calculated GFR AND GFRAA in patients over 70 years has not been determined. Clinical correlation is essential. LAB L501.1110 >60 mL/min Low EST GFR 28 Result Comment: Non- GFR Calc LAB L501.1115 >60 mL/min Low EST GFR - AA 33 Result Comment: GFR Calc LAB L501.1255 ml/min Normal Estimated CRCL 28.57 LAB L501.1300 10-20 RATIO High BUN/CRE 32.1 LAB L501.2200 8.5-10 mg/dL Normal .1 CA 9.0 LAB L501.5300 136-14 mmol/L Normal 5 NA 140 LAB L501.5600 3.5-5. mmol/L Normal 1 K 4.7 LAB L501.5900 98-107 mmol/L High CL 108 LAB L501.6100 21.0-3 mmol/L Normal 2.0 CO2 25.0 LAB L501.6200 5-15 Normal GAP 7 Performed By: #### L500.2500 #### [facility] [address] [place], [place], [address] BEDSIDE GLUCOSE Collected: 03/13/2018 Status: F Source: GANTT 6:35 AM [facility] REPOSITORY TYPE CODE TESTS RESULT OUT OF REFERENCE UNITS RANGE LAB L501.080 70-110 mg/dL High BEDSIDE GLU 133 Result Comment: MANAGEMENT OF PATIENT CARE PER NURSING PROTOCOL Performed By: #### L501.080 #### [facility] Point of Care [address] [facility] [place] [address] BASIC METABOLIC Collected: 03/13/2018 Status: F Source: GANTT PROFILE (BMP) 4:55 AM [facility] REPOSITORY Order Comment: SPECIMEN OBTAINED FROM LINE DRAW TYPE CODE TESTS RESULT OUT OF RANGE REFERENCE UNITS LAB L501.0100 74-106 mg/dL High GLU 163 Result Comment: Fasting Glucose result greater than or equal to 126 mg/dL suggests DIABETES MELLITUS per A.D.A. criteria. Please note revised GLUCOSE reference range effective 2017. LAB L501.1000 7-18 mg/dL High BUN 60 LAB L501.1100 0.55-1.02 mg/dL High CREAT,SERUM 1.96 Result Comment: The validity of the calculated GFR AND GFRAA in patients over 70 years has not been determined. Clinical correlation is essential. LAB L501.1110 >60 mL/min Low EST GFR 28 Result Comment: Non- GFR Calc LAB L501.1115 >60 mL/min Low EST GFR - AA 33 Result Comment: GFR Calc LAB L501.1255 ml/min Normal Estimated CRCL 28.57 LAB L501.1300 10-20 RATIO High BUN/CRE 30.6 LAB L501.2200 8.5-10 mg/dL Normal .1 CA 8.6 LAB L501.5300 136-14 mmol/L Normal 5 NA 139 LAB L501.5600 3.5-5. mmol/L Normal 1 K 4.6 LAB L501.5900 98-107 mmol/L Normal CL 106 LAB L501.6100 21.0-3 mmol/L Normal 2.0 CO2 24.0 LAB L501.6200 5-15 Normal GAP 9 Performed By: #### L500.2500 #### [facility] [address] [place], [address] OPERATIVE REPORT Observed: 03/12/2018 Status: F Source: GANTT 6:21 PM [facility] REPOSITORY [facility] Medical Records Department [address] [place] [address] Operative Report 03/12/18 1722 MR#: [id number] Acct: [id number] Name: KANDY LAUREN Rep #: [id number] : 1960 58 From: Candi [place] DPM PCP: Pia Newton MD Status: [facility] [place] [facility] [place] Date of Procedure: 03/10/18 Pre-Operative Diagnosis: L ankle recurrent dislocation, broken hardware, left ankle open fracture Post-Operative Diagnosis: same Surgery/Procedure Performed:: L lower leg adjustment and application of external fixation, revisional tibiotalar arthrodesis, debridement of soft tisse and bone, complex closure of surgical site 9 cm Description of Surgical Findings:: see dictation pharmaceutical representative: Ashutosh Gutierrez Type of Anesthesia:: General Specimen's removed: none Drains: yes, drain vessel in central lateral incision for passive drainage Estimated Blood Loss (mL): 300mL Description of Procedure: Indications: Pt is a 58 yo F well known to me for left lower extremity limb salvage following a L open ankle fracture this summer which was treated at OSH. She has had several procedures, most recently a L tibiotalar arthrodesis with external fixation adjustment and bone graft, with Integra placement to the medial ankle wound on 02/26/2018. She has been receiving IV abx per ID and cultures/pathology while in the [facility]. Since her previous surgery she developed LLE pain and edema with strikethrough bleeding noted to the dressing. I examined her at bedside on 03/07/2018 and 03/08/2018 and radiographs were performed. Her Left ankle had again dislocated and the tibiotalar arthrodesis was no longer aligned. Radiographs were obtained, no new fractures noted. Bedside evaluation revealed a 12 mm bolt was missing from her most proximal tibial ring. PT was unsure of when it became loose or when it was lost. She presents today for revision. She understands this setback is significant in her limb salvage. A compressive dressing was applied over the weekend and her edema has improved. All risks, complications, and alternatives were discussed with the patient, and the patient signed an informed consent. No guarantees were given. Procedure: On 03/10/2018, Kandy Lauren was visually and verbally identified in the preoperative holding area. The consent form was again reviewed with the patient, as were all risks, complications, and alternatives and the patient wished to proceed with the proposed surgery. The left lower leg and right foot was marked as the correct operative extremities. The patient was brought to the operating room and placed on the operating room table in the normal [SUPINE position. After induction by anesthesia, , A surgical time out was performed and all present were in agreement. a pneumatic thigh tourniquet was then placed to the left lower extremity. The dressings were removed, all sutures from the lateral incision of the left leg and the cristian and Integra were removed from the medial ankle, the right lateral heel suture was also removed. At this time the left lower extremity and right foot and ankle were prepped and draped in the usual sterile fashion. At this time attention was directed to the proximal tibial ring. The temporary bolt and rancho cube were removed. The ring was repositioned with two fingers space anteriorly, medially and laterally and 3 fingers posteriorly. The ring was set orthogonal to the tibia. This position was held as a rancho cube was placed over the tibial pins and a new bolt was used to connect this to the most proximal tibial ring. This was tightened by wrench. An olive wire was then placed in an axial direction from medial to lateral and parallel to the ring and secured to the ring. Two additional olive wires were then placed in the next tibia ring, one from medial to lateral and the other from lateral to medial and both parallel to the ring. They were the secured to the ring. These wires were all placed with intraoperative fluoroscopic guidance. All new olive wires were then tensioned appropriately per grinder set up operator guidelines. At this time it was noted that The anteromedial ankle wound was then sharply and excisionally debrided with a #15 blade and curette of all fibrotic, nonviable tissue, with bleeding tissue noted. All residual hematoma was removed. The wound measured 8.5 cm x 3.5 cm x 1 cm deep. Most medial wound had residual bone exposed of the distal tibia. This was also debrided with a ronguer. These instruments were then set aside to avoid cross contamination with the lateral incision. A new #15 blade was then used to re-incise the previous lateral incision extending to a length of 9 cm. The skin edges were freshened up and the incision was carried deep with careful attention to all bleeders which were bovied as needed. The previous bone graft to the arthrodesis site was throughout the lower leg, pieces of bone graft were removed from the lateral compartment and tibiotalar space. This incision was then flushed with copious amounts of normal sterile saline with the pulse lavage, this was then used on the medial ankle wound as well for a total of 3L. The compression struts were all then released to allow for better access to the arthrodesis site. This was distracted and using currettes and a rasp the distal tibia and proximal talus sites were freshened until good bleeding bone was noted of both. 20 cc of the patient's blood was drawn by anesthesia and mixed with cancellous bone chips. These were then placed into the tibiotalar arthrodesis site and impacted. The struts were then adjusted to the previous compression settings from the distraction settings and reattached and secured. The arthrodesis site was visualized on intraoperative fluoroscopy and it was decided we would obtain a new prescription for alignment and compression as more bone had been resected. At this time it was noticed the olive wires just proximal to the tibiotalar joint had broken. This was then confirmed on the radiographs I had taken on the floor the previous weekend. The broken olive wires were removed in total without incident. Two olive wires were then again positioned parallel to the ring with one thrown from medial to lateral and the other lateral to medial at the same angle as the previous wires. these were then secured to the ring and tensioned per manufacturor guidelines. The stability and integrity of all other wires was then again confirmed on intraoperative fluoroscopy and no other broken wires were observed. All nuts and bolts were then reexaimined for the entire frame. This was then repeated in total. The tibiotalar arthrodesis site was again visualized with improved reduction, and bone graft in place. We will fine tune this post operatively. The lateral ankle incision was then prepared for closure. It measured 9 cm long. Retention sutures were placed at the distal and proximal ends of the incision using 1 prolene. The tension on the central incision did not allow for closure with sutures. A ALIDA drain was initially placed however, the incomplete closure would not allow it to hold suction. The drain was then cut and placed without suction to the central incision to allow for passive drainage. The nuts and bolts were individually again checked and confirmed to be tight. An angulated strut was placed and secured to the posterior proximal ring and ring just distal to it. The nuts and bolts of this were tightened and rechecked. Dressings were then applied with adaptic to the anteromedial wound and over the incision. Each pin site was dressed with xeroform and DSD. DSD was then placed from the toes to the proximal lower leg with MACARIO bandage for compression. Coban was then wrapped around the proximal nuts and bolts and marked for positioning. Intra operative fluoroscopy was utilized throughout the case, > 1 hour, to aid in visualization and confirmation of fracture reduction and screw and plate fixations. Interpretation of the images was vital to my decision making process. The patient tolerated the procedure and anesthesia well. The patient was then transported to the postanesthesia care unit by a member of the anesthesia team and myself with all vital signs stable and neurovascular status of the left lower extremity equal to pre-operative levels. I did not make an incision or perform a procedure on the right foot as potentially planned. At the end of the case all sponge, needle and instrument counts were found to be correct. Grafts/Implants Used: Orthofix External Fixation-TL Hexapod - Complications none - Admit VTE Documentation VTE Present on Admission: No VTE Mechan Device Prophylaxis: None - piotential b/l LE procedures, both extremities were prepped. VTE Pharm Prophylaxis ordered?: Yes 03/12/18 010 <Electronically signed by Candi [place] DPM> Date Candi [place] DPM CC: NORA [place]; Pia Newton MD Signed CBC W/DIFF, AUTOMATED Collected: 03/12/2018 Status: F Source: ANA 7:15 AM [facility] REPOSITORY Order Comment: SPECIMEN OBTAINED FROM LINE DRAW TYPE CODE TESTS RESULT OUT OF RANGE REFERENCE UNITS LAB L100.1000 4.4-11.0 K/mm3 Low WBC 3.7 LAB L100.1200 4.2-5.4 M/mm3 Low RBC 3.03 LAB L100.1300 12.0-15.0 g/dl Low HGB 8.4 LAB L100.1400 37-47 % Low HCT 26.3 LAB L100.1500 81-99 fL Normal MCV 86.8 LAB L100.1600 27.0-32.0 pg Normal MCH 27.7 LAB L100.1700 32-36 g/gl Low MCHC 31.9 LAB L100.1810 11.6-14.6 % High RDW CV 16.0 LAB L100.1820 35.1-43.9 fl High RDW SD 50.0 LAB L100.1900 150-450 K/mm3 Normal PLT 198 LAB L100.2000 6.2-12.0 fl Normal MPV 9.0 LAB L100.2100 47-70 % Low NEUT% 27.1 LAB L100.2200 19-41 % Normal LY% 40.6 LAB L100.2300 0-10 % High MONO% 26.6 LAB L100.2400 0-5 % Normal EO% 3.5 LAB L100.2500 0-1 % High BASO% 1.1 LAB L100.2550 0.0-0.9 % High IM GRAN % 1.100 Result Comment: IG% - Immature Granulocytes (promyelocytes, myelocytes and metamyelocytes) > 1% indicates that a LEFT SHIFT is Present. LAB L100.2620 2.0-7.7 X10 3/uL Low Absolute Neut 1.0 LAB L100.2720 0.83-4.51 X10 3/ul Normal Absolute Lymph 1.51 Performed By: #### L100.0100, L101.9900 #### [facility] [address] [place], [address] ERYTHROCYTE SED RATE Collected: 03/12/2018 Status: F Source: ANA 7:15 AM [facility] REPOSITORY Order Comment: SPECIMEN OBTAINED FROM LINE DRAW TYPE CODE TESTS RESULT OUT OF RANGE REFERENCE UNITS LAB L102.0000 0-30 mm/hr High SED RATE 72 Performed By: #### L100.0100, L101.9900 #### [facility] [address] [place], [address] BASIC METABOLIC Collected: 03/12/2018 Status: F Source: ANA PROFILE (BMP) 7:15 AM [facility] REPOSITORY TYPE CODE TESTS RESULT OUT OF RANGE REFERENCE UNITS LAB L501.0100 74-106 mg/dL High GLU 142 Result Comment: Fasting Glucose result greater than or equal to 126 mg/dL suggests DIABETES MELLITUS per A.D.A. criteria. Please note revised GLUCOSE reference range effective 2017. LAB L501.1000 7-18 mg/dL High BUN 55 LAB L501.1100 0.55-1.02 mg/dL High CREAT,SERUM 1.89 Result Comment: The validity of the calculated GFR AND GFRAA in patients over 70 years has not been determined. Clinical correlation is essential. LAB L501.1110 >60 mL/min Low EST GFR 29 Result Comment: Non- GFR Calc LAB L501.1115 >60 mL/min Low EST GFR - AA 35 Result Comment: GFR Calc LAB L501.1255 ml/min Normal Estimated CRCL 29.63 LAB L501.1300 10-20 RATIO High BUN/CRE 29.1 LAB L501.2200 8.5-10 mg/dL Normal .1 CA 8.8 LAB L501.5300 136-14 mmol/L Normal 5 NA 136 LAB L501.5600 3.5-5. mmol/L Normal 1 K 4.7 LAB L501.5900 98-107 mmol/L Normal CL 104 LAB L501.6100 21.0-3 mmol/L Normal 2.0 CO2 25.0 LAB L501.6200 5-15 Normal GAP 7 Performed By: #### L500.2500 #### [facility] [address] [place], [address] BEDSIDE GLUCOSE Collected: 03/12/2018 Status: F Source: ANA 6:45 AM [facility] REPOSITORY TYPE CODE TESTS RESULT OUT OF REFERENCE UNITS RANGE LAB L501.080 70-110 mg/dL High BEDSIDE GLU 145 Result Comment: MANAGEMENT OF PATIENT CARE PER NURSING PROTOCOL Performed By: #### L501.080 #### [facility] Point of Care [address] [place], [place] [address] BEDSIDE GLUCOSE Collected: 03/11/2018 Status: F Source: ANA 6:35 AM [facility] REPOSITORY TYPE CODE TESTS RESULT OUT OF REFERENCE UNITS RANGE LAB L501.080 70-110 mg/dL High BEDSIDE GLU 133 Result Comment: MANAGEMENT OF PATIENT CARE PER NURSING PROTOCOL Performed By: #### L501.080 #### [facility] Point of Care [address] [place] [address] HH, HEMOGLOBIN AND Collected: 03/11/2018 Status: F Source: ANA HEMATOCRIT 5:15 AM [facility] REPOSITORY Order Comment: SPECIMEN OBTAINED FROM LINE DRAW TYPE CODE TESTS RESULT OUT OF RANGE REFERENCE UNITS LAB L100.1300 12.0-15.0 g/dl Low HGB 8.3 LAB L100.1400 37-47 % Low HCT 26.4 Performed By: #### L100.0600 #### [facility] [address] [place], [address] BEDSIDE GLUCOSE Collected: 03/10/2018 Status: F Source: ANA 12:20 PM [facility] REPOSITORY TYPE CODE TESTS RESULT OUT OF REFERENCE UNITS RANGE LAB L501.080 70-110 mg/dL High BEDSIDE GLU 127 Result Comment: MANAGEMENT OF PATIENT CARE PER NURSING PROTOCOL Performed By: #### L501.080 #### [facility] Laboratory Point of Care [address] [place] [address] HH, HEMOGLOBIN AND Collected: 03/10/2018 Status: F Source: ANA HEMATOCRIT 12:00 PM [facility] REPOSITORY Order Comment: Comments: in PACU TYPE CODE TESTS RESULT OUT OF RANGE REFERENCE UNITS LAB L100.1300 12.0-15.0 g/dl Low HGB 7.8 LAB L100.1400 37-47 % Low HCT 25.0 Performed By: #### L100.0600 #### [facility] [address] [place], [address] DISCHARGE INSTRUCTION Observed: 03/10/2018 Status: F Source: GANTT 11:58 AM [facility] REPOSITORY [facility] Medical Records Department [address] [place] [address] Instructions for Home/Discharge Instructions 03/10/18 1155 MR#: [id number] Acct: [id number] Name: KANDY LAUREN ANN Rep #: [id number] : 1960 58 From: Candi [place] DPM PCP: Pia Newton MD [place] [facility] [place]charge Activity: May Not Drive, May Not Shower, Use Walker, Use Crutches Weight Bearing Status: No weight bearing Keep extremity elevated above heart level: Operative Extremity Additional Activity Instructions:: strict nonweightbearing to the LLE at all times, keep elevated when seated or in bed at all times, do not use or have patient use frame to lift leg unless from behind the heel Call your doctor if your incision/area has: Sudden Increased Bleeding Call your doctor if you observe: Calf discomfort, Uncontrolled pain Cleanse incision/area with: Keep Dressing Clean AND Dry Additional Dressing/Incision Instructions:: reinforce one time with DSD and then call Dr. [place] please Allergies/Adverse Reactions: Allergies aspirin Allergy (Verified 03/09/18 09:34) Hives latex Allergy (Verified 03/09/18 09:34) Hives Penicillins Allergy (Verified 03/09/18 09:34) Hives naproxen [From Aleve] Adverse Reaction (Severe, Verified 03/09/18 09:34) Kidney disease Stage 3 Medications to take at Discharge Allopurinol 300 mg PO DAILY 12/03/16 Amitriptyline HCl 75 mg PO QHS 12/03/16 Atenolol 50 mg PO DAILY 12/03/16 cholecalciferol (vitamin D3) 2,000 unit capsule 2,000 unit PO DAILY 05/27/17 diltiazem CD 180 mg capsule,extended release 24 hr 180 mg PO DAILY 05/27/17 hydroxychloroquine 200 mg tablet 200 mg PO QDAY 05/27/17 omega-3 fatty acids 1,000 mg capsule 1,000 mg PO QDAY 05/27/17 sitagliptin 100 mg tablet 100 mg PO QDAY 05/27/17 gabapentin 300 mg capsule 300 mg PO TID cap 08/19/17 ipratropium 20 mcg-albuterol 100 mcg/actuation mist for inhalation 1 inh INHALATION Q6H PRN #4 g 08/22/17 Atorvastatin Calcium [Lipitor] 40 mg PO QDAY 01/13/18 Cyclobenzaprine HCl 10 mg PO TID PRN PRN 01/13/18 Multivit-Min/Iron/Folic/Lutein [Centrum Silver Women Tablet] 1 tab PO DAILY 01/13/18 Acetaminophen [Tylenol Tablet] 650 mg PO Q6H PRN PRN tablet 01/21/18 Cefepime HCl [Maxipime] 2 gm IV Q12 01/21/18 Insulin Lispro [Humalog KwikPen] See Protocol SQ ACHS 01/21/18 Magnesium Hydroxide [Milk Of Magnesia] 30 ml PO DAILY PRN PRN udc 01/21/18 Mometasone Furoate [Nasonex] 2 spray INTRANASAL QDAY 01/21/18 Vancomycin IV 1,500 mg IV Q24H 01/21/18 traMADol [Ultram (G)] 50 mg PO Q4H PRN PRN 03/04/18 Pantoprazole Sodium [Protonix] 40 mg PO DAILY 03/10/18 Primary Care Physician: Pia Newton MD [Primary Care Provider] - Test Results: Test results from this visit will be discussed in further detail at your follow-up appointment, if applicable. Please Follow Up With: Candi [place] DPM - will see her in TCU Proposed Discharge Date: 03/10/18 03/10/18 1158 <Electronically signed by Candi [place] DPM> Date Candi [place] DPM CC: Pia Newton MD ANKLE MIN 3 VIEWS Observed: 03/10/2018 Status: F Source: ANA 11:56 AM [facility] REPOSITORY [facility] Imaging Services [address] [place] [address] Ankle min 3 Views MR#: [id number] Acct: [id number] Name: KANDY LAUREN Rep #: [id number] : 1960 F 58 From: Audi Morillo MD PCP: Pia Newton MD [place] [facility] Study: Ankle min 3 Views Date of Exam: 03/10/18 Exam# [id number] Ordering Dr: Candi [place] DPM STUDY: X-RAY - LEFT ANKLE REASON FOR EXAM: Female, 58 years old. Post external fixator revision. TECHNIQUE: 3 view(s) of the ankle. COMPARISON: 3 views of the ankle March 06, 2018. FINDINGS: Extensive metal hardware of an external fixation device again overlaps the lower leg, ankle, and foot, obscuring detail. Prior resection of the distal fibula/lateral malleolus, displaced and angulated avulsion fracture of the medial malleolus and nondisplaced intra-articular fracture of the distal tibial metaphysis again noted. Status post revision, the overall tibiotalar alignment is improved, with some residual lateral subluxation of the dome of the talus although the distal tibial plafond. Dorsal subluxation grossly unchanged on the lateral view. Medial malleolar fragment remains distracted and rotated, but shows a significantly lesser degree of lateral subluxation. Relatively severe narrowing of the tibiotalar joint space also persists. A moderate amount of ill-defined ossific density again projects around the distal diaphysis and in the tissues lateral to the tibiotalar articulation. Poorly visualized talus and calcaneus. The visualized subtalar, talonavicular, calcaneocuboid and tarsal articulations are moderately obscured. A surgical drain projects within moderate swelling of the lateral soft tissues RAD/Ankle min 3 Views IMPRESSION: Improved lateral subluxation of tibiotalar alignment status post fixation and revision, including diminished lateral subluxation of the distracted/rotated medial malleolar fracture fragment. Dorsal subluxation is grossly unchanged. Prior resection of the distal fibula and nondisplaced, comminuted intra-articular fracture of the distal tibial metaphysis unchanged. There is stable severe narrowing of the tibiotalar joint space. A surgical drain is noted within moderate lateral soft tissue swelling. Electronically Signed: Parrish Morillo MD at 13:24 EST , Service support , CC: NORA [place]; Pia Newton MD Political Worker: Signed FOOT 2 VIEWS Observed: 03/10/2018 Status: F Source: GANTT 11:56 AM [facility] REPOSITORY [facility] Imaging Services [address] [place] [address] Foot 2 Views MR#: [id number] Acct: [id number] Name: KANDY LAUREN Rep #: [id number] : 1960 F 58 From: Audi Mroillo MD PCP: Pia Newton MD Status: [facility] [place]: Foot 2 Views Date of Exam: 03/10/18 Exam# [id number] Ordering Dr: Candi [place] DPM STUDY: X-RAY - LEFT FOOT CLINICAL: Female, 58 years old. Post external fixator revision. TECHNIQUE: 2 view(s) of the foot. COMPARISON: 3 views of the left foot February 26, 2018. FINDINGS: Evaluation of the ankle, hind and midfoot limited due to obscuration by overlapping metal hardware of the external fixation device. Fixation pins connected to the external hardware are again seen passing through the bases of the metatarsals. There is stable cortical defect along the medial aspect of the mid first metatarsal. Normal metatarsophalangeal joint of the great toe. Normal tibial and fibular sesamoid bones. Normal interphalangeal joint of the great toe. Normal phalanges of the great toe. Normal second through fifth metatarsophalangeal joints. Deformity of the fifth proximal phalanx may reflect old healed fracture. Otherwise, normal interphalangeal joints and phalanges of the lesser toes. Mild soft tissue swelling of the foot again suggested. Mild cutaneous irregularity at the site of the fixation pins at the medial lateral aspects of the mid to forefoot. RAD/Foot 2 Views IMPRESSION: Stable x-ray examination of the foot, as described. There is persistent defect in the medial aspect of the mid first metatarsal. Electronically Signed: Parrish Morillo MD at 13:33 EST , Service support , CC: NORA [place]; Pia Newton MD Political Worker: Signed TIBIA AND FIBULA Observed: 03/10/2018 Status: F Source: GANTT 2 VIEWS 11:56 AM [facility] REPOSITORY [facility] Imaging Services [address] [place] [address] Tibia AND Fibula 2 Views MR#: [id number] Acct: [id number] Name: KANDY LAUREN Rep #: [id number] : 1960 F 58 From: Audi Morillo MD PCP: Pia Newton MD Status: [facility] Study: Tibia AND Fibula 2 Views Date of Exam: 03/10/18 Exam# [id number] Ordering Dr: Candi [place] DPM STUDY: X-RAY - LEFT TIBIA AND FIBULA REASON FOR EXAM: Female, 58 years old. Post external fixator revision. TECHNIQUE: Frontal and lateral view(s) of the tibia and fibula were obtained on 4 films. COMPARISON: Frontal and lateral views of the left tibia and fibula on 4 films March 06, 2018 FINDINGS: Metal hardware of an external fixation device again noted, obscuring detail to varying degree in each view. Comminuted fracture of the distal tibial metaphysis again noted, better visualized on dedicated views of the ankle also done today. Prior resection of the distal fibula/lateral malleolus also again noted. There is moderate lobulated ossific density in the tissues around the distal tibial diaphysis and lateral to the tibiotalar articulation. The proximal tibia and fibula are intact. The improved lateral subluxation and persistent dorsal subluxation of the tibiotalar articulation today is also better seen in the dedicated views of the ankle. Soft tissue swelling present, but improved. Atherosclerotic vascular calcifications again noted. A surgical drain is present in the lateral soft tissue swelling near the ankle. Metal skin cristian seen along the anterior aspect of the ankle on prior study since been removed. RAD/Tibia AND Fibula 2 Views IMPRESSION: 1. External fixation device again present. Improved lateral subluxation of the tibiotalar articulation as well as fracture and postsurgical deformities of the distal tibia and fibula are better visualized on dedicated views of the ankle also done today and reported separately. 2. Soft tissue swelling of the left lower leg is improved. Surgical drain is present in the lateral soft tissue swelling at the ankle. Atherosclerotic vascular calcifications again noted. Electronically Signed: Parrish Morillo MD at 13:38 EST , Service support , CC: NORA [place]; Pia Newton MD Political Worker: Signed LIVER PROFILE Collected: 03/10/2018 Status: F Source: ANA 6:42 AM [facility] REPOSITORY Order Comment: Reason for Laboratory Test PRE-OP TYPE CODE TESTS RESULT OUT OF RANGE REFERENCE UNITS LAB L501.1500 6.4-8.2 g/dL Normal T PROT 7.0 LAB L501.1800 3.2-5.0 g/dL Low ALB 2.1 LAB L501.1950 2.2-4.2 g/dL High GLOB 4.9 LAB L501.4100 15-37 U/L Low AST 8 LAB L501.4305 45-117 U/L Normal ALK P 112 LAB L501.4405 13-56 U/L Low ALT 12 LAB L501.4600 0.20-1.00 mg/dL Normal T BILI 0.30 LAB L501.4700 0.00-0.30 mg/dL Normal D BILI 0.09 Performed By: #### L500.3400 #### [facility] [address] [place], [address] HEMOGLOBIN A1C Collected: 03/10/2018 Status: F Source: GANTT 6:42 AM [facility] REPOSITORY Order Comment: Reason for Laboratory Test PRE-OP TYPE CODE TESTS RESULT OUT OF RANGE REFERENCE UNITS LAB L501.9985 4.2-6.3 % Normal HGB A1C 5.2 Performed By: #### L501.9985 #### [facility] [address] [facility] [place], [address] BEDSIDE GLUCOSE Collected: 03/10/2018 Status: F Source: GANTT 5:56 AM [facility] REPOSITORY TYPE CODE TESTS RESULT OUT OF REFERENCE UNITS RANGE LAB L501.080 70-110 mg/dL High BEDSIDE GLU 137 Result Comment: MANAGEMENT OF PATIENT CARE PER NURSING PROTOCOL Performed By: #### L501.080 #### [facility] Point of Care [address] [facility] [place] [address] TIBIA AND FIBULA Observed: 03/10/2018 Status: F Source: GANTT 2 VIEWS 12:09 AM [facility] REPOSITORY [facility] Imaging Services [address] [place] [address] Tibia AND Fibula 2 Views MR#: [id number] Acct: [id number] Name: KANDY LAUREN ANN Rep #: [id number] : 1960 F 58 From: Mahesh Olivia MD PCP: Pia Newton MD Status: [facility] Study: Tibia AND Fibula 2 Views Date of Exam: 03/10/18 Exam# [id number] Ordering Dr: Candi [place] DPConnie STUDY: X-RAY - LEFT TIBIA AND FIBULA REASON FOR EXAM: Female, 58 years old. ReVision of the hardware overlying the left tibia. TECHNIQUE: Single coned-down intraoperative view(s) of the tibia and fibula were obtained. COMPARISON: None. FINDINGS: External fixation device is seen overlying the tibia. RAD/Tibia AND Fibula 2 Views IMPRESSION: Intraoperative imaging provided. External fixation device is seen overlying the tibia. Electronically Signed: Mahesh Olivia MD at 11:04 EST Tel [phone], Service support , CC: NORA [place]; Pia Newton MD Political Worker: Signed BEDSIDE GLUCOSE Collected: 03/09/2018 Status: F Source: GANTT 6:30 AM [facility] REPOSITORY TYPE CODE TESTS RESULT OUT OF REFERENCE UNITS RANGE LAB L501.080 70-110 mg/dL High BEDSIDE GLU 128 Result Comment: MANAGEMENT OF PATIENT CARE PER NURSING PROTOCOL Performed By: #### L501.080 #### [facility] [place] [place] [address] CBC W/DIFF, AUTOMATED Collected: 03/09/2018 Status: F Source: GANTT 2:55 AM [facility] REPOSITORY TYPE CODE TESTS RESULT OUT OF RANGE REFERENCE UNITS LAB L100.1000 4.4-11.0 K/mm3 Low WBC 3.9 LAB L100.1200 4.2-5.4 M/mm3 Low RBC 2.89 LAB L100.1300 12.0-15.0 g/dl Low HGB 8.0 LAB L100.1400 37-47 % Low HCT 25.5 LAB L100.1500 81-99 fL Normal MCV 88.2 LAB L100.1600 27.0-32.0 pg Normal MCH 27.7 LAB L100.1700 32-36 g/gl Low MCHC 31.4 LAB L100.1810 11.6-14.6 % High RDW CV 16.6 LAB L100.1820 35.1-43.9 fl High RDW SD 52.4 LAB L100.1900 150-450 K/mm3 Normal PLT 192 LAB L100.2000 6.2-12.0 fl Normal MPV 9.1 LAB L100.2100 47-70 % Low NEUT% 26.8 LAB L100.2200 19-41 % High LY% 43.7 LAB L100.2300 0-10 % High MONO% 24.4 LAB L100.2400 0-5 % Normal EO% 3.3 LAB L100.2500 0-1 % Normal BASO% 1.0 LAB L100.2550 0.0-0.9 % Normal IM GRAN % 0.800 Result Comment: IG% - Immature Granulocytes (promyelocytes, myelocytes and metamyelocytes) > 1% indicates that a LEFT SHIFT is Present. LAB L100.2620 2.0-7.7 X10 3/uL Low Absolute Neut 1.0 LAB L100.2720 0.83-4.51 X10 3/ul Normal Absolute Lymph 1.70 Performed By: #### L100.0100, L500.4050 #### [facility] [address] [place], [place], [address] COMPREHENSIVE METABOLIC Collected: 03/09/2018 Status: F Source: [facility] 2:55 AM [facility] REPOSITORY TYPE CODE TESTS RESULT OUT OF RANGE REFERENCE UNITS LAB L501.0100 74-106 mg/dL High GLU 147 Result Comment: Fasting Glucose result greater than or equal to 126 mg/dL suggests DIABETES MELLITUS per A.D.A. criteria. Please note revised GLUCOSE reference range effective 2017. LAB L501.1000 7-18 mg/dL High BUN 62 LAB L501.1100 0.55-1.02 mg/dL High CREAT,SERUM 1.65 Result Comment: The validity of the calculated GFR AND GFRAA in patients over 70 years has not been determined. Clinical correlation is essential. LAB L501.1110 >60 mL/min Low EST GFR 34 Result Comment: Non- GFR Calc LAB L501.1115 >60 mL/min Low EST GFR - AA 41 Result Comment: GFR Calc LAB L501.1255 ml/min Normal Estimated CRCL 33.94 LAB L501.1300 10-20 RATIO High BUN/CRE 37.6 LAB L501.1500 6.4-8. g/dL Normal 2 T PROT 7.0 LAB L501.1800 3.2-5. g/dL Low 0 ALB 2.1 LAB L501.1950 2.2-4. g/dL High 2 GLOB 4.9 LAB L501.2000 0.9-2. RATIO Low 4 A/G 0.4 LAB L501.2200 8.5-10 mg/dL Normal .1 CA 8.9 LAB L501.4100 15-37 U/L Low AST 10 LAB L501.4305 45-117 U/L Normal ALK P 116 LAB L501.4405 13-56 U/L Low ALT 11 LAB L501.4600 0.20-1 mg/dL Normal .00 T BILI 0.30 LAB L501.5300 136-14 mmol/L Normal 5 NA 141 LAB L501.5600 3.5-5. mmol/L Normal 1 K 5.1 LAB L501.5900 98-107 mmol/L Normal CL 106 LAB L501.6100 21.0-3 mmol/L Normal 2.0 CO2 26.0 LAB L501.6200 5-15 Normal GAP 9 Performed By: #### L100.0100, L500.4050 #### [facility] [address] [facility] [id number] PROTHROMBIN TIME W/INR Collected: 03/09/2018 Status: F Source: GANTT 2:55 AM [facility] REPOSITORY TYPE CODE TESTS RESULT OUT OF RANGE REFERENCE UNITS LAB L300.4150 11.7-14.9 SECONDS Normal PROTIME 14.1 LAB L300.4200 Normal INR 1.1 Performed By: #### L300.3900 #### [facility] [address] [place], [place], [id number] TYPE AND SCREEN Collected: 03/09/2018 Status: F Source: GANTT 2:55 AM [facility] REPOSITORY Order Comment: Reason for Type AND Screen/Red Cells: SURGERY Surgery Date: 03/09/18 Other - use comments: left ankle fx Type of Surgery: OTHER TYPE CODE TESTS RESULT OUT OF RANGE REFERENCE UNITS LAB B10.0800 O Normal BLOOD TYPE GEL NEGATIVE LAB B100.4000 Normal Antibody NEGATIVE Screen Performed By: #### B101.7450 #### [facility] [address] [place], [address] RC Collected: 03/09/2018 Status: F Source: ANA 2:55 AM [facility] REPOSITORY TYPE CODE TESTS RESULT OUT OF REFERENCE UNITS RANGE LAB U100.0000 [id number] TRANSFUSED PRODUCT: T AND S with Crossmatch, Red Cells COUNT: 1 Performed By: #### U100.0000 #### Non-[facility] - refer to report for specific site BEDSIDE GLUCOSE Collected: 03/08/2018 Status: F Source: GANTT 6:33 AM [facility] REPOSITORY TYPE CODE TESTS RESULT OUT OF REFERENCE UNITS RANGE LAB L501.080 70-110 mg/dL High BEDSIDE GLU 140 Result Comment: MANAGEMENT OF PATIENT CARE PER NURSING PROTOCOL Performed By: #### L501.080 #### [facility] Point of Care [address] [place], [place] [address] VANCOMYCIN, TROUGH Collected: 03/07/2018 Status: F Source: ANA LEVEL 7:35 PM [facility] REPOSITORY Order Comment: Time Medication is to be Given? 2000 TYPE CODE TESTS RESULT OUT OF REFERENCE UNITS RANGE LAB L501.8820 5.0-15.0 ug/mL High VANCO, TROUGH 17.8 Result Comment: VANCOMYCIN STANDARED DRUG THERAPY TROUGH LEVEL: 5.0 - 15.0 mg/L VANCOMYCIN HIGH INTENSITY THERAPY TROUGH LEVEL: 15.0 - 20.0 mg/L High Intensity therapy recommended for serious life threatening infections include: - Meningitis -Endocarditis -Pneumonia (Ventilator/Healtcare Associated) -Sepsis PLEASE CONTACT PHARMACY SERVICES (#[id number]) FOR INTERPRETATION OF RESULTS. Performed By: #### L501.8820 #### [facility] [address] [place], [address] BEDSIDE GLUCOSE Collected: 03/07/2018 Status: F Source: ANA 6:39 AM [facility] REPOSITORY TYPE CODE TESTS RESULT OUT OF REFERENCE UNITS RANGE LAB L501.080 70-110 mg/dL High BEDSIDE GLU 135 Result Comment: MANAGEMENT OF PATIENT CARE PER NURSING PROTOCOL Performed By: #### L501.080 #### [facility] Point of Care [address] [place] [address] ANKLE MIN 3 VIEWS Observed: 03/06/2018 Status: F Source: ANA 7:52 PM [facility] REPOSITORY [facility] Imaging Services [address] [place] [address] Ankle min 3 Views MR#: [id number] Acct: [id number] Name: KANDY LAUREN Rep #: [id number] : 1960 F 58 From: Indra Calhoun DO PCP: Pia Newton MD Status: ADM IN Study: Ankle min 3 Views Date of Exam: 03/06/18 Exam# [id number] Ordering Dr: Candi [place] DPM STUDY: X-RAY - LEFT ANKLE REASON FOR EXAM: Female, 58 years old. Left ankle pain. Lifted leg with external fixator on a period may have reinjured leg. TECHNIQUE: 4 view(s) of the ankle. COMPARISON: Ankle, February 26, 2018. FINDINGS: Is limited visualization due to the surrounding external fixator. On the AP film there appears to be lateral subluxation of the talus in relationship to the tibia. This cannot be ascertained with complete certainty as positioning is not exactly when compared to the prior study. RAD/Ankle min 3 Views IMPRESSION: Questionable lateral subluxation of the ankle when compared to the prior exam. Electronically Signed: Indra Calhoun DO at 20:51 EST Tel [phone], Service support , CC: NORA [place]; Pai Newton MD Political Worker: Signed TIBIA AND FIBULA Observed: 03/06/2018 Status: F Source: ANA 2 VIEWS 7:52 PM [facility] REPOSITORY [facility] Imaging Services [address] [place] [address] Tibia AND Fibula 2 Views MR#: [id number] Acct: [id number] Name: KANDY LAUREN ANN Rep #: [id number] : 1960 F 58 From: Indra Calhoun DO PCP: Pia Newton MD Status: ADM IN Study: Tibia AND Fibula 2 Views Date of Exam: 03/06/18 Exam# [id number] Ordering Dr: Candi [place] DPM STUDY: X-RAY - LEFT TIBIA AND FIBULA REASON FOR EXAM: Female, 58 years old. There is delayed with external fixator. May have reinjured leg. TECHNIQUE: 4 view(s) of the tibia and fibula were obtained. COMPARISON: Tibia-fibula, February 26, 2018 FINDINGS: There is markedly limited visualization of the ankle secondary to the overlying external fixator. Question lateral subluxation of the ankle. The tibia and fibula appear unchanged in appearance. No evidence of acute fracture. RAD/Tibia AND Fibula 2 Views IMPRESSION: Certain numbering questionable lateral subluxation of the ankle. The remainder of the findings appear grossly unchanged. Electronically Signed: Indra Calhoun DO at 21:15 EST Tel [phone], Service support , CC: NORA [place]; Pia Newton MD Political Worker: Signed PATIENT COMMUNICATION Observed: 03/06/2018 Status: F Source: GANTT 5:02 PM [facility] REPOSITORY [facility] Medical Services [address] [place] [address] PATIENT COMMUNICATION 03/06/18 MR#: [id number] Acct: [id number] Name: KANDY LAUREN ANN Rep #: [id number] : 1960 Provider: Ying Ty MD Age/Sex: 58/F Location: [facility] Patient Communication Details: Notify patient that upper endoscopy demonstrates Arango's and gastritis and benign colon polyp. I recommend follow-up esophagogastroduodenoscopy at 3 years. I recommend follow-up colonoscopy in 3 years. I recommend ongoing medical management of her reflux disease and gastritis. Ying Ty M.D., F.A.C.S. 03/06/18 1702 <Electronically signed by Ying Ty MD> Date Ying Ty MD Cosigner Signature: Date (if applicable) CC: Ying Ty MD 12 LEAD ELECTROCARDIOGRAM Observed: 03/06/2018 Status: F Source: [place] 3:19 PM [facility] REPOSITORY [facility] Cardiovascular Services [address] [place] [address] 12 Lead EKG 03/04/18 1103 MR#: [id number] Acct: [id number] Name: KANDY LAUREN Rep #: [id number] : 1960 58 From: Nathanael Peters MD Attending Dr: Ying Ty MD Status: [facility] Ordering Dr: Ying Ty MD Date: 03/04/18 Location: EN Sex: F C Admitted: Test Reason : CP Blood Pressure : / mmHG Vent. Rate : 101 BPM Atrial Rate : 101 BPM P-R Int : 150 ms QRS Dur : 096 ms QT Int : 372 ms P-R-T Axes : 071 037 016 degrees QTc Int : 482 ms Sinus tachycardia with occasional Premature ventricular complexes Nonspecific ST abnormality Abnormal ECG When compared with ECG of 19-FEB-2018 20:52, Premature ventricular complexes are now Present Confirmed by NATHANAEL PETERS MD ([id number]), state editor BUTCH PATTERSON ([id number]) on 03/06/2018 3:18:50 PM Referred By: Ying Ty Confirmed By:NATHANAEL PETERS MD 03/06/18 1518 Date Nathanael Peters MD CC: Pia Newton MD; Ying Ty MD Signed BEDSIDE GLUCOSE Collected: 03/06/2018 Status: F Source: ANA 6:52 AM [facility] REPOSITORY TYPE CODE TESTS RESULT OUT OF REFERENCE UNITS RANGE LAB L501.080 70-110 mg/dL High BEDSIDE GLU 129 Result Comment: MANAGEMENT OF PATIENT CARE PER NURSING PROTOCOL Performed By: #### L501.080 #### [facility] Point of Care [address] [place], [place] [id number] HH, HEMOGLOBIN AND Collected: 03/06/2018 Status: F Source: ANA HEMATOCRIT 6:00 AM [facility] REPOSITORY TYPE CODE TESTS RESULT OUT OF RANGE REFERENCE UNITS LAB L100.1300 12.0-15.0 g/dl Low HGB 8.7 LAB L100.1400 37-47 % Low HCT 27.9 Performed By: #### L100.0600 #### [facility] [address] [place], [place], [id number] BEDSIDE GLUCOSE Collected: 03/05/2018 Status: F Source: ANA 6:33 AM [facility] REPOSITORY TYPE CODE TESTS RESULT OUT OF REFERENCE UNITS RANGE LAB L501.080 70-110 mg/dL High BEDSIDE GLU 131 Result Comment: MANAGEMENT OF PATIENT CARE PER NURSING PROTOCOL Performed By: #### L501.080 #### [facility] Point of Care [address] [place] [address] BASIC METABOLIC Collected: 03/05/2018 Status: F Source: ANA PROFILE (BMP) 5:18 AM [facility] REPOSITORY Order Comment: SPECIMEN OBTAINED FROM LINE DRAW TYPE CODE TESTS RESULT OUT OF RANGE REFERENCE UNITS LAB L501.0100 74-106 mg/dL High GLU 130 Result Comment: Fasting Glucose result greater than or equal to 126 mg/dL suggests DIABETES MELLITUS per A.D.A. criteria. Please note revised GLUCOSE reference range effective 2017. LAB L501.1000 7-18 mg/dL High BUN 57 LAB L501.1100 0.55-1.02 mg/dL High CREAT,SERUM 1.66 Result Comment: The validity of the calculated GFR AND GFRAA in patients over 70 years has not been determined. Clinical correlation is essential. LAB L501.1110 >60 mL/min Low EST GFR 34 Result Comment: Non- GFR Calc LAB L501.1115 >60 mL/min Low EST GFR - AA 41 Result Comment: GFR Calc LAB L501.1255 ml/min Normal Estimated CRCL 33.74 LAB L501.1300 10-20 RATIO High BUN/CRE 34.3 LAB L501.2200 8.5-10 mg/dL Normal .1 CA 8.5 LAB L501.5300 136-14 mmol/L Normal 5 NA 142 LAB L501.5600 3.5-5. mmol/L Normal 1 K 4.2 LAB L501.5900 98-107 mmol/L High CL 110 LAB L501.6100 21.0-3 mmol/L Normal 2.0 CO2 22.0 LAB L501.6200 5-15 Normal GAP 10 Performed By: #### L500.2500 #### [facility] [address] [facility] [place], [address] OPERATIVE REPORT - Observed: 03/04/2018 Status: F Source: [facility] ENDOSCOPY 12:27 PM [facility] REPOSITORY [facility] Medical Records Department [address] [place] [address] Operative Report - Endoscopy MR#: [id number] Acct: [id number] Name: KANDY LAUREN ANN Rep #: [id number] : 1960 58 From: Ying Ty MD PCP: Pia Newton MD [place] [facility] Name: Kandy Lauren Procedure Date: 03/04/2018 11:46 AM Date of : 1960 Age: 58 Procedure: Colonoscopy Indications: Iron deficiency anemia secondary to chronic blood loss Providers: Ying Ty MD Referring MD: Pia Newton Md Medicines: See the Anesthesia note for documentation of the administered medications Patient Profile: Last Colonoscopy: date unknown. Last Colonoscopy: more than 10 years ago. Complications: No immediate complications. Procedure: Pre-Anesthesia Assessment: - Prior to the procedure, a History and Physical was performed, and patient medications and allergies were reviewed. The patient's tolerance of previous anesthesia was also reviewed. The risks and benefits of the procedure and the sedation options and risks were discussed with the patient. All questions were answered, and informed consent was obtained. Prior Anticoagulants: The patient has taken Lovenox (enoxaparin), last dose was 1 day prior to procedure. ASA Grade Assessment: III - A patient with severe systemic disease. After reviewing the risks and benefits, the patient was deemed in satisfactory condition to undergo the procedure. After I obtained informed consent, the scope was passed under direct vision. Throughout the procedure, the patient's blood pressure, pulse, and oxygen saturations were monitored continuously. The colonoscope was introduced through the anus and advanced to the cecum, identified by appendiceal orifice and ileocecal valve. The ileocecal valve and the appendiceal orifice were photographed. Scope In: 11:49:23 AM Scope Withdrawal Time 0 hours 14 minutes 3 seconds Scope Out: 12:10:28 PM Total Procedure Duration Time 0 hours 21 minutes 5 seconds Findings: Lax anal tone Hemorrhoids were found on perianal exam. Multiple diverticula were found in the entire colon. Two sessile polyps were found in the distal transverse colon. The polyps were small in size. These polyps were removed with a hot snare. Resection and retrieval were complete. Impression: - Hemorrhoids found on perianal exam. - Diverticulosis in the entire examined colon. - Two small polyps in the distal transverse colon, removed with a hot snare. Resected and retrieved. No evidence for acute or chronic blood loss. No bleeding from polyps Recommendation: - Repeat colonoscopy in 3 years for surveillance based on pathology results. - Telephone my office for pathology results in 1 week. - Continue present medications. Procedure Code(s): --- Professional --- 94604, Colonoscopy, flexible; with removal of tumor(s), polyp(s), or other lesion(s) by snare technique Diagnosis Code(s): --- Professional --- K64.9, Unspecified hemorrhoids D12.3, Benign neoplasm of transverse colon (hepatic flexure or splenic flexure) D50.0, Iron deficiency anemia secondary to blood loss (chronic) K57.30, Diverticulosis of large intestine without perforation or abscess without bleeding CPT copyright 2017 [employer]. All rights reserved. The codes documented in this report are preliminary and upon service engine repairer review may be revised to meet current compliance requirements. Ying Ty MD 03/04/2018 12:27:48 PM This report has been signed electronically. Number of Addenda: 0 Note Initiated On: 03/04/2018 11:46 AM 03/04/18 1227 Date Ying Ty MD Cosigner Signature: Date (if indicated) CC: Pia Newton MD; Ying Ty MD Date Dictated: 03/04/18 1146 Date Transcribed: Political Worker: PEGGY Signed OPERATIVE REPORT - Observed: 03/04/2018 Status: F Source: [facility] ENDOSCOPY 12:22 PM [facility] REPOSITORY [facility] Medical Records Department [address] [place] [address] Operative Report - Endoscopy MR#: [id number] Acct: [id number] Name: KANDY LAUREN ANN Rep #: [id number] : 1960 58 From: Ying Ty MD PCP: Pia Newton MD [place] [facility] [place] Patient Name: Kandy Lauren Procedure Date: 03/04/2018 10:49 AM Date of : 1960 Age: 58 Procedure: Upper GI endoscopy Indications: Iron deficiency anemia secondary to chronic blood loss Providers: Ying Ty MD Referring MD: Pia Newton Md Medicines: See the Anesthesia note for documentation of the administered medications Complications: No immediate complications. Procedure: Pre-Anesthesia Assessment: - Prior to the procedure, a History and Physical was performed, and patient medications and allergies were reviewed. The patient's tolerance of previous anesthesia was also reviewed. The risks and benefits of the procedure and the sedation options and risks were discussed with the patient. All questions were answered, and informed consent was obtained. Prior Anticoagulants: The patient has taken Lovenox (enoxaparin), last dose was 1 day prior to procedure. ASA Grade Assessment: III - A patient with severe systemic disease. After reviewing the risks and benefits, the patient was deemed in satisfactory condition to undergo the procedure. After obtaining informed consent, the endoscope was passed under direct vision. Throughout the procedure, the patient's blood pressure, pulse, and oxygen saturations were monitored continuously. The gastroscope was introduced through the mouth, and advanced to the second part of duodenum. The upper GI endoscopy was accomplished without difficulty. The patient tolerated the procedure well. Scope In: 11:37:46 AM Scope Out: 11:43:04 AM Total Procedure Duration Time 0 hours 5 minutes 18 seconds Findings: The Z-line was irregular and was found 39 cm from the incisors. LA Grade A (one or more mucosal breaks less than 5 mm, not extending between tops of 2 mucosal folds) esophagitis with no bleeding was found 39 cm from the incisors. Biopsies were taken with a cold forceps for histology. Exudate, sloughing lining noted Diffuse mildly erythematous mucosa without bleeding was found in the gastric antrum. Biopsies were taken with a cold forceps for histology. The examined duodenum was normal. A small hiatal hernia was present. Impression: - Z-line irregular, 39 cm from the incisors. - LA Grade A reflux esophagitis. Biopsied. Small hiatal hernia - Erythematous mucosa in the antrum. Biopsied. - Normal examined duodenum. No evidence for active blood loss Reflux esophagitis with small hiatal hernia and mild chronic gastritis. Patient is on pantoprazole. Await biopsy results for possible belén esophagitis Recommendation: - Resume previous diet. - Continue present medications. - Telephone my office for pathology results in 1 week. - Discharge patient to a intermediate. Procedure Code(s): --- Professional --- 41283, Esophagogastroduodenoscopy, flexible, transoral; with biopsy, single or multiple Diagnosis Code(s): --- Professional --- K22.8, Other specified diseases of esophagus K21.0, Gastro-esophageal reflux disease with esophagitis K31.89, Other diseases of stomach and duodenum D50.0, Iron deficiency anemia secondary to blood loss (chronic) CPT copyright 2017 [employer]. All rights reserved. The codes documented in this report are preliminary and upon service engine repairer review may be revised to meet current compliance requirements. Ying Ty MD 03/04/2018 12:21:51 PM This report has been signed electronically. Number of Addenda: 0 Note Initiated On: 03/04/2018 10:49 AM 03/04/18 1222 Date Ying Ty MD Cosigner Signature: Date (if indicated) CC: Pia Newton MD; Ying Ty MD Date Dictated: 03/04/18 1049 Date Transcribed: Political Worker: PEGGY Signed COLON BIOPSY (CHOOSE Observed: 03/04/2018 Status: F Source: [facility]) 11:00 AM [facility] REPOSITORY Patient: KANDY LAUREN : 1960 (58/F) Acct Num: [id number] Phys: Ying Ty MD Unit Num: [id number] Loc: EN Specimen: [id number] Received: 03/04/18 - 1517 Spec Type: COLON BX TISSUES 1 TISSUES: A. Gastric mucous membrane B. Esophageal mucous membrane C. Transverse colon COMMENT A. The results of immunohistochemistry for Helicobacter pylori will be reported separately ([id number]). B. Alcian blue/PAS stain with matched control is used in the evaluation of the specimen. GROSS DESCRIPTION A - Received in fixative is one container labeled with the patient's name and designated antrum biopsy for H. pylori and path. The specimen consists of one elongated fragment of light pérez soft tissue that measures 1 x 0.3 x 0.1 cm. The specimen is totally submitted in one cassette. B - Received in fixative is one container labeled with the patient's name and designated distal esophagus biopsy. The specimen consists of multiple irregular fragments of light pérez soft tissue that in aggregate measure 2 x 0.4 x 0.2 cm. The specimen is totally submitted in one cassette. C - Received in fixative is one container labeled with the patient's name and designated distal transverse polyp. The specimen consists of multiple irregular fragments of light pérez soft tissue that in aggregate measure 1.4 x 0.6 x 0.3 cm. The specimen is totally submitted in one cassette. / RY:jason 03/05/18 TC:1 CPT: 16201 x3, 01690, [address]1828 HEADER OPERATION: [place] DIAGNOSIS: Anemia, heme-positive stools, melena TISSUE SUBMITTED: A - Antrum biopsy for H. pylori and path, B - Distal esophagus biopsy, C - Distal transverse colon polyps MICROSCOPIC DESCRIPTION Slides are reviewed. A. The specimen shows fragments of gastric mucosa with chronic inflammatory cell infiltrates in the lamina propria consisting of lymphocytes and plasma cells, consistent with mild chronic gastritis. MICROSCOPIC DIAGNOSIS A. Antrum, biopsy: Mild gastritis. See microscopic description and comment. B. 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 Acute and chronic inflammation and changes consistent with gastroesophageal reflux disease. Negative for dysplasia. Special stain for fungi is negative for organisms; matched control is appropriate. See comment. C. Distal transverse colon polyp, biopsy: Fragments of tubular adenoma. SJ:jason 03/06/18 Signed Sid Holloway 03/06/18 <signature on file> Performed By: #### PCOLBX #### [facility] [address] [place], [address] IMMUNOHISTOCHEMISTRY Observed: 03/04/2018 Status: F Source: ANA 11:00 AM [facility] REPOSITORY Patient: KANDY LAUREN : 1960 (58/F) Acct Num: [id number] Phys: Melony SKINNER,Ying Unit Num: [id number] Loc: EN Specimen: [id number] Received: 03/05/1809 Spec Type: IMMUNO TISSUES 1 TISSUES: A. Stomach, NOS SPECIMEN INFORMATION: Tissue Source: A - Antrum biopsy Clinical Info: Anemia, heme-positive stools, melena Specimen Number: [id number] CPT code: 84904 METHODOLOGY: Deparaffinized sections of prefer/formalin-fixed tissue or PAP/DQ stained slides are incubated with monoclonal/polyclonal antibodies/oligonucleotide probes. Localization is made via biotin free immunoperoxidase method. Appropriate controls are performed and reacted as expected. Results on target cell population are indicated in the following table: RESULTS: ANTIBODY / CLONE RESULT Block A H Pylori (polyclonal) negative These tests were developed and their performance characteristics determined by [facility]. They may not have been cleared or approved by the U.S. Food and Drug Administration. The FDA has determined that such clearance or approval is not necessary. INTERPRETATION: A. Antrum, biopsy: Negative for Helicobacter pylori organisms. SJ:jason 03/09/18 [facility] [address] [address] Signed Sid Holloway 03/09/18 <signature on file> Performed By: #### PIMM #### [facility] [address] [place] [address], [address] BEDSIDE GLUCOSE Collected: 03/04/2018 Status: F Source: GANTT 10:43 AM [facility] REPOSITORY TYPE CODE TESTS RESULT OUT OF RANGE REFERENCE UNITS LAB L501.080 70-110 mg/dL Normal BEDSIDE GLU 93 Result Comment: MANAGEMENT OF PATIENT CARE PER NURSING PROTOCOL Performed By: #### L501.080 #### [facility] Point of Care [address] [place] [address] BEDSIDE GLUCOSE Collected: 03/04/2018 Status: F Source: GANTT 6:24 AM [facility] REPOSITORY TYPE CODE TESTS RESULT OUT OF RANGE REFERENCE UNITS LAB L501.080 70-110 mg/dL Normal BEDSIDE GLU 87 Result Comment: MANAGEMENT OF PATIENT CARE PER NURSING PROTOCOL Performed By: #### L501.080 #### [facility] Point of Care [address] [place] [address] VANCOMYCIN, TROUGH Collected: 03/03/2018 Status: F Source: ANA LEVEL 7:15 AM [facility] REPOSITORY Order Comment: Comments: Draw 30 min prior to vanco dose due @0800 Time Medication is to be Given? 0800 TYPE CODE TESTS RESULT OUT OF REFERENCE UNITS RANGE LAB L501.8820 5.0-15.0 ug/mL High VANCO, TROUGH 18.9 Result Comment: VANCOMYCIN STANDARED DRUG THERAPY TROUGH LEVEL: 5.0 - 15.0 mg/L VANCOMYCIN HIGH INTENSITY THERAPY TROUGH LEVEL: 15.0 - 20.0 mg/L High Intensity therapy recommended for serious life threatening infections include: - Meningitis -Endocarditis -Pneumonia (Ventilator/Healtcare Associated) -Sepsis PLEASE CONTACT PHARMACY SERVICES (#[id number]) FOR INTERPRETATION OF RESULTS. Performed By: #### L501.8820 #### [facility] [address] [place], [address] BEDSIDE GLUCOSE Collected: 03/03/2018 Status: F Source: ANA 6:34 AM [facility] REPOSITORY TYPE CODE TESTS RESULT OUT OF RANGE REFERENCE UNITS LAB L501.080 70-110 mg/dL Normal BEDSIDE GLU 103 Result Comment: MANAGEMENT OF PATIENT CARE PER NURSING PROTOCOL Performed By: #### L501.080 #### [facility] Point of Care [address] [place] [address] OPERATIVE REPORT Observed: 03/02/2018 Status: F Source: ANA 1:17 PM [facility] REPOSITORY [facility] Medical Records Department [address] [place] [address] Operative Report 03/02/18 1219 MR#: [id number] Acct: [id number] Name: KANDY LAUREN ANN Rep #: [id number] : 1960 58 From: Candi [place] DPM PCP: Pia Newton MD [place] [facility] Location: EN Report of Operation Date of Procedure: 02/26/18 Pre-Operative Diagnosis: L open ankle fracture, osteomyelitis Post-Operative Diagnosis: same Surgery/Procedure Performed:: R calcaneal bone graft harvest; Left lower leg external fixation application and adjustment, L lower leg soft tissue and bone debridement; L ankle bone biopsy, L tibiotalar arthrodesis, L medial ankle skin substitute application; complex closure L lateral incision Description of Surgical Findings:: Indications: Pt is a 58 yo F who presents for left leg limb salvage following an open fracture this summer. She has had numerous procedures and presents today for the next step in her recovery. She is currently in the TCU, receiving iv abx per ID and is being evaluated for her ongoing anemia and vitamin D deficiency by medicine and general surgery. All risks, complications, and alternatives were discussed with the patient, and the patient signed an informed consent. No guarantees were given. Pt understands this is a limb salvage attempt and if it fails she may need a below knee amputation. Procedure: On February 26, 2018, Kandy Lauren was visually and verbally identified in the preoperative holding area. The consent form was again reviewed with the patient, as were all risks, complications, and alternatives and the patient wished to proceed with the proposed surgery. The Left lower leg and right foot were marked as the correct operative extremities. The patient was brought to the operating room and placed on the operating room table in the lazy lateral position. After induction by anesthesia, A surgical time out was performed and all present were in agreement. a pneumatic thigh tourniquet was then placed to the left lower extremity. At this time the bilateral lower extremities were prepped and draped in the usual sterile fashion. after elevation of the left leg the tourniquet was inflated to 300 mmHg. At this time attention was directed to the Left leg. Since application of the external fixation her lower extremity edema has increased secondary to systemic processes, blood transfusions and inconsistent elevation of the LLE. I felt that at this point the ring needed to moved distally to protect her posterior calf. The Distal tibial pin was removed without incident. The ring was then slide distally. A fresh tibial pin was then placed parallel to the remaining tibial pin with bicortical purchase. 2 half rings were then attached to this tibial pin and the previous ring was also secured. appropriate spacing was noted circumferentially about the calf for both rings. The tibial pin placement and length was done under intraoperative fluoroscopy. All nuts and bolts were tightened appropriately. Large bolt cutters were used to shorten the post so that it did not impinge on her soft tissue and the remaining post was capped for her protection. . Attention was then directed to the medial wound and lateral incision, previously placed antibiotic beads were removed. Soft tissue that was nonviable and fibrotic of the lateral incision was sharply and excisionally debrided using curettes, ronguers and a #15 blade, Hematoma was evacuated. Soft tissue was then sent to pathology and for cultures. Tissue was noted to be healthy, with good bleeding. Using fresh instruments, a curette, ronguer and #15 blade were used to sharply and excisionally debride the nonviable and fibrotic tissue until healthy, bleeding bone was noted. The medial ankle wound was noted to be 8 cm x 4.5 cm x 0.5 cm at its deepest. A small medial area of tibial bone was exposed. This bone was also debrided with ronguers and soft tissue and bone was sent for pathology and cultures. Using 3L normal sterile saline in pulse lavage both the medial ankle wound and lateral ankle incision were thoroughly flushed. The medial ankle wound was then addressed. Integra bilayer skin substitute was applied to the wound with edges secured by cristian, The most medial wound with exposed bone was also deepest and packed with the remaining collagen from the extra Integra prior to securing the medial edges with cristian. The struts of the external fixator were then released from one end only to allow for a lateral approach to the ankle joint. The lateral incision was then extended both proximally and distally in a curvilinear fashion. The incision was bluntly carried deep through the subcutaneous tissues with careful attention paid to all bleeders, which were clamped and tied or bovied as necessary. All vital neurovascular structures were retracted. Under intraoperative fluoroscopy, the joint was distracted with lamina spreaders, the remaining cartilage of the tibial plafond and talar dome was resected utlizing a combination of jennifer, osteotomes, and curettes. A 0.045 k wire was then used to microfracture the resected joint. Good subchondral bleeding was noted from each bone. Secondary to the fracture, the tibia had a defect laterally. The struts were then reattached to the the external fixator and using the TL Hexapod prescription the struts were adjusted for the first stage of distraction and realignment of the tibiotalar joint. This was confirmed on intraoperative fluoroscopy. Improved alignment with distraction was noted. Attention was then turned to the lateral right calcaneal bone. A stab incision was made using a fresh #15 blade at the body of the calcaneus. Using a fresh curettes bone graft was harvested from the body of the calcaneus with care taken to avoid the peroneal tendons and sural nerve. . This was then added to cancellous bone chips and 20 cc of the patient's blood that was drawn by anesthesia. The stab incision was closed with 3.0 prolene. The bone graft was then placed at the tibiotalar arthrodesis site of the left leg. It was packed into the joint using a tamp and mallet. Good alignment was again confirmed on intraoperative fluoroscopy with bone graft in place. At this time, the second stage of the prescription for the TL Hexapod frame was performed. The struts were each adjusted accordingly to allow for compression of the tibiotalar joint. All nuts and bolts were tightened. Appropriate alignment and compression were confirmed on intraoperative fluoroscopy. I was pleased with the reduction and alignment of the tibiotalar joint as well as the bone to bone apposition. We will plan for further compression bedside in the near future. At this time closure was initiated. The lateral incision was closed using 1 prolene retention sutures as the adjustment put increased tension on the skin. the incision measured approximately 7 cm. Deep sutures were not feasible given the tissue. I considered a NPWT system for this site and that Integra however with pin and olive wire fixation I felt maintaining a seal would be difficult and would risk maceration of the tissues. To allow for drainage and to reduce strain of the central incision a daniel drain was placed. Dressings consisted of adaptic, DSD and light compression to the right foot. The left medial Integra site was dressed with adaptic and a bolster DSD dressing, the lateral incision was dressed with adaptic and DSD. Each pin site was dressed with xeroform and DSD. A light compressive bandage of aly and macario bandages was then applied. Total tourniquet time was 120 minutes with immediate capillary refill noted to all left digits upon deflation. Intra operative fluoroscopy was utilized throughout the case, > 1 hour, to aid in visualization and confirmation of fracture reduction and screw and plate fixations. Interpretation of the images was vital to my decision making process. The patient tolerated the procedure and anesthesia well. The patient was then transported to the postanesthesia care unit by a member of the anesthesia team and myself with all vital signs stable and neurovascular status of the bilateral lower extremities equal to pre-operative levels. At the end of the case all sponge, needle and instrument counts were found to be correct. pharmaceutical representative: Ashutosh Gutierrez Type of Anesthesia:: General Specimen's removed: L ankle soft tissue and bone, medial Drains: daniel lateral ankle, Left Estimated Blood Loss (mL): 200 mL Description of Procedure: Indications: Pt is a 58 yo F who presents for left leg limb salvage following an open fracture this summer. She has had numerous procedures and presents today for the next step in her recovery. She is currently in the TCU, receiving iv abx per ID and is being evaluated for her ongoing anemia and vitamin D deficiency by medicine and general surgery. All risks, complications, and alternatives were discussed with the patient, and the patient signed an informed consent. No guarantees were given. Pt understands this is a limb salvage attempt and if it fails she may need a below knee amputation. Procedure: On February 26, 2018, Kandy Lauren was visually and verbally identified in the preoperative holding area. The consent form was again reviewed with the patient, as were all risks, complications, and alternatives and the patient wished to proceed with the proposed surgery. The Left lower leg and right foot were marked as the correct operative extremities. The patient was brought to the operating room and placed on the operating room table in the lazy lateral position. After induction by anesthesia, A surgical time out was performed and all present were in agreement. a pneumatic thigh tourniquet was then placed to the left lower extremity. At this time the bilateral lower extremities were prepped and draped in the usual sterile fashion. after elevation of the left leg the tourniquet was inflated to 300 mmHg. At this time attention was directed to the Left leg. Since application of the external fixation her lower extremity edema has increased secondary to systemic processes, blood transfusions and inconsistent elevation of the LLE. I felt that at this point the ring needed to moved distally to protect her posterior calf. The Distal tibial pin was removed without incident. The ring was then slide distally. A fresh tibial pin was then placed parallel to the remaining tibial pin with bicortical purchase. 2 half rings were then attached to this tibial pin and the previous ring was also secured. appropriate spacing was noted circumferentially about the calf for both rings. The tibial pin placement and length was done under intraoperative fluoroscopy. All nuts and bolts were tightened appropriately. Large bolt cutters were used to shorten the post so that it did not impinge on her soft tissue and the remaining post was capped for her protection. . Attention was then directed to the medial wound and lateral incision, previously placed antibiotic beads were removed. Soft tissue that was nonviable and fibrotic of the lateral incision was sharply and excisionally debrided using curettes, ronguers and a #15 blade, Hematoma was evacuated. Soft tissue was then sent to pathology and for cultures. Tissue was noted to be healthy, with good bleeding. Using fresh instruments, a curette, ronguer and #15 blade were used to sharply and excisionally debride the nonviable and fibrotic tissue until healthy, bleeding bone was noted. The medial ankle wound was noted to be 8 cm x 4.5 cm x 0.5 cm at its deepest. A small medial area of tibial bone was exposed. This bone was also debrided with ronguers and soft tissue and bone was sent for pathology and cultures. Using 3L normal sterile saline in pulse lavage both the medial ankle wound and lateral ankle incision were thoroughly flushed. The medial ankle wound was then addressed. Integra bilayer skin substitute was applied to the wound with edges secured by cristian, The most medial wound with exposed bone was also deepest and packed with the remaining collagen from the extra Integra prior to securing the medial edges with cristian. The struts of the external fixator were then released from one end only to allow for a lateral approach to the ankle joint. The lateral incision was then extended both proximally and distally in a curvilinear fashion. The incision was bluntly carried deep through the subcutaneous tissues with careful attention paid to all bleeders, which were clamped and tied or bovied as necessary. All vital neurovascular structures were retracted. Under intraoperative fluoroscopy, the joint was distracted with lamina spreaders, the remaining cartilage of the tibial plafond and talar dome was resected utlizing a combination of jennifer, osteotomes, and curettes. A 0.045 k wire was then used to microfracture the resected joint. Good subchondral bleeding was noted from each bone. Secondary to the fracture, the tibia had a defect laterally. The struts were then reattached to the the external fixator and using the TL Hexapod prescription the struts were adjusted for the first stage of distraction and realignment of the tibiotalar joint. This was confirmed on intraoperative fluoroscopy. Improved alignment with distraction was noted. Attention was then turned to the lateral right calcaneal bone. A stab incision was made using a fresh #15 blade at the body of the calcaneus. Using a fresh curettes bone graft was harvested from the body of the calcaneus with care taken to avoid the peroneal tendons and sural nerve. . This was then added to cancellous bone chips and 20 cc of the patient's blood that was drawn by anesthesia. The stab incision was closed with 3.0 prolene. The bone graft was then placed at the tibiotalar arthrodesis site of the left leg. It was packed into the joint using a tamp and mallet. Good alignment was again confirmed on intraoperative fluoroscopy with bone graft in place. At this time, the second stage of the prescription for the TL Hexapod frame was performed. The struts were each adjusted accordingly to allow for compression of the tibiotalar joint. All nuts and bolts were tightened. Appropriate alignment and compression were confirmed on intraoperative fluoroscopy. I was pleased with the reduction and alignment of the tibiotalar joint as well as the bone to bone apposition. We will plan for further compression bedside in the near future. At this time closure was initiated. The lateral incision was closed using 1 prolene retention sutures as the adjustment put increased tension on the skin. the incision measured approximately 7 cm. Deep sutures were not feasible given the tissue. I considered a NPWT system for this site and that Integra however with pin and olive wire fixation I felt maintaining a seal would be difficult and would risk maceration of the tissues. To allow for drainage and to reduce strain of the central incision a daniel drain was placed. Dressings consisted of adaptic, DSD and light compression to the right foot. The left medial Integra site was dressed with adaptic and a bolster DSD dressing, the lateral incision was dressed with adaptic and DSD. Each pin site was dressed with xeroform and DSD. A light compressive bandage of aly and macario bandages was then applied. Total tourniquet time was 120 minutes with immediate capillary refill noted to all left digits upon deflation. Intra operative fluoroscopy was utilized throughout the case, > 1 hour, to aid in visualization and confirmation of fracture reduction and screw and plate fixations. Interpretation of the images was vital to my decision making process. The patient tolerated the procedure and anesthesia well. The patient was then transported to the postanesthesia care unit by a member of the anesthesia team and myself with all vital signs stable and neurovascular status of the bilateral lower extremities equal to pre-operative levels. Grafts/Implants Used: Integra bilayer skin substitute,Orthofix TL Hexapod external fixation, - Complications none - Admit VTE Documentation VTE Present on Admission: No VTE Mechan Device Prophylaxis: None Reason prophylaxis not ordered:: Medical Contraindication - current anemia requiring transfusion and EGD, LGI scope 03/02/18 1317 <Electronically signed by Candi [place] DPM> Date Candi [place] DPM CC: NORA [place]; Pia Newton MD; Ying Ty MD Signed BEDSIDE GLUCOSE Collected: 03/02/2018 Status: F Source: ANA 6:37 AM [facility] REPOSITORY TYPE CODE TESTS RESULT OUT OF RANGE REFERENCE UNITS LAB L501.080 70-110 mg/dL Normal BEDSIDE GLU 109 Result Comment: MANAGEMENT OF PATIENT CARE PER NURSING PROTOCOL Performed By: #### L501.080 #### [facility] Point of Care [address] [place] [address] BEDSIDE GLUCOSE Collected: 03/01/2018 Status: F Source: ANA 7:51 AM [facility] REPOSITORY TYPE CODE TESTS RESULT OUT OF RANGE REFERENCE UNITS LAB L501.080 70-110 mg/dL Normal BEDSIDE GLU 99 Result Comment: MANAGEMENT OF PATIENT CARE PER NURSING PROTOCOL Performed By: #### L501.080 #### [facility] Point of Care [address] [place] [address] VANCOMYCIN, RANDOM Collected: 02/27/2018 Status: F Source: ANA LEVEL 9:15 PM [facility] REPOSITORY TYPE CODE TESTS RESULT OUT OF REFERENCE UNITS RANGE LAB L501.8850 0.0-15.0 ug/mL High VANCO, RANDOM 15.8 Result Comment: VANCOMYCIN STANDARD DRUG THERAPY: CRITICAL VALUE IS > 15.0 mg/L VANCOMYCIN HIGH INTENSITY THERAPY: CRITICAL VALUE IS > 20.0 mg/L PLEASE CONTACT PHARMACY SERVICES (#[id number]) FOR INTERPRETATION OF RESULTS. THIS RESULT DOES NOT REPRESENT A PEAK OR TROUGH LEVEL FOR THIS DRUG. Performed By: #### L501.8850 #### [facility] [address] [facility] [place] [place], [address] 12 LEAD ELECTROCARDIOGRAM Observed: 02/27/2018 Status: F Source: ANA 9:23 AM [facility] REPOSITORY [facility] Cardiovascular Services [address] [place] [address] 12 Lead EKG 02/19/182051 MR#: [id number] Acct: [id number] Name: KANDY LAUREN ANN Rep #: [id number] : 1960 58 From: Nathanael Peters MD Attending Dr: Mikhail SKINNER,Gerson Watson Status: DEP CLI Ordering Dr: Tabitha Gilliam Date: 02/19/18 Location: [facility] Sex: F C Admitted: Test Reason : CP Blood Pressure : / mmHG Vent. Rate : 076 BPM Atrial Rate : 076 BPM P-R Int : 162 ms QRS Dur : 092 ms QT Int : 388 ms P-R-T Axes : 004 061 046 degrees QTc Int : 436 ms Normal sinus rhythm Nonspecific T wave abnormality Abnormal ECG Confirmed by NATHANAEL PETERS MD ([id number]), state editor ANA ROSA BAEZA ([id number]) on 02/23/2018 2:26:07 PM Referred By: Gerson Elizondo Confirmed By:NATHANAEL PETERS MD 02/23/18 1426 Date Nathanael Peters MD CC: Tabitha Gilliam; Pia Newton MD; Gerson Elizondo MD Signed BEDSIDE GLUCOSE Collected: 02/27/2018 Status: F Source: ANA 6:49 AM [facility] REPOSITORY TYPE CODE TESTS RESULT OUT OF RANGE REFERENCE UNITS LAB L501.080 70-110 mg/dL Normal BEDSIDE GLU 95 Result Comment: MANAGEMENT OF PATIENT CARE PER NURSING PROTOCOL Performed By: #### L501.080 #### [facility] Point of Care [address] [place] [address] VANCOMYCIN, TROUGH Collected: 02/26/2018 Status: F Source: ANA LEVEL 8:39 PM [facility] REPOSITORY Order Comment: Time Medication is to be Given? 2100 TYPE CODE TESTS RESULT OUT OF REFERENCE UNITS RANGE LAB L501.8820 5.0-15.0 ug/mL High VANCO, TROUGH 22.2 Result Comment: VANCOMYCIN STANDARED DRUG THERAPY TROUGH LEVEL: 5.0 - 15.0 mg/L VANCOMYCIN HIGH INTENSITY THERAPY TROUGH LEVEL: 15.0 - 20.0 mg/L High Intensity therapy recommended for serious life threatening infections include: - Meningitis -Endocarditis -Pneumonia (Ventilator/Healtcare Associated) -Sepsis PLEASE CONTACT PHARMACY SERVICES (#[id number]) FOR INTERPRETATION OF RESULTS. Performed By: #### L501.8820 #### [facility] [address] [place], [address] DISCHARGE INSTRUCTION Observed: 02/26/2018 Status: F Source: ANA 2:34 PM [facility] REPOSITORY [facility] Medical Records Department [address] [place] [address] Instructions for Home/Discharge Instructions 02/26/18 1432 MR#: [id number] Acct: [id number] Name: KANDY LAUREN ANN Rep #: [id number] : 1960 58 From: Candi [place] DPM PCP: Pia Newton MD [place] [facility] [place] Activity: May Not Drive, May not drive while taking narcotic pain medications., May Not Shower, Use Walker, Use Crutches Ice area for (Minutes): 20 - behind knee 20 minutes of each hour while awake, b/l LE Weight Bearing Status: No weight bearing - LLE strict NWB LLE, RLE WBAT Keep extremity elevated above heart level: Operative Extremity Call your doctor if your incision/area has: Sudden Increased Bleeding Call your doctor if you observe: Fever of 101 or Higher, Shortness of breath, Chest pain, Increased palpitations (irregular heartbeat), Calf discomfort, Uncontrolled pain Cleanse incision/area with: Keep Dressing Clean AND Dry Additional Dressing/Incision Instructions:: Please call Dr. [place] after reinforcement x 1 for either LE dressing. Allergies/Adverse Reactions: Allergies aspirin Allergy (Verified 02/24/18 10:24) Hives latex Allergy (Verified 02/24/18 10:24) Hives Penicillins Allergy (Verified 02/24/18 10:24) Hives naproxen [From Aleve] Adverse Reaction (Severe, Verified 02/24/18 10:24) Kidney disease Stage 3 Medications to take at Discharge Allopurinol 300 mg PO DAILY 12/03/16 Amitriptyline HCl 75 mg PO QHS 12/03/16 Atenolol 50 mg PO DAILY 12/03/16 cholecalciferol (vitamin D3) 2,000 unit capsule 2,000 unit PO DAILY 05/27/17 diltiazem CD 180 mg capsule,extended release 24 hr 180 mg PO DAILY 05/27/17 hydroxychloroquine 200 mg tablet 200 mg PO QDAY 05/27/17 omega-3 fatty acids 1,000 mg capsule 1,000 mg PO QDAY 05/27/17 sitagliptin 100 mg tablet 100 mg PO QDAY 05/27/17 gabapentin 300 mg capsule 300 mg PO TID cap 08/19/17 ipratropium 20 mcg-albuterol 100 mcg/actuation mist for inhalation 1 inh INHALATION Q6H PRN #4 g 08/22/17 Atorvastatin Calcium [Lipitor] 40 mg PO QDAY 01/13/18 Cyclobenzaprine HCl 10 mg PO TID PRN PRN 01/13/18 Multivit-Min/Iron/Folic/Lutein [Centrum Silver Women Tablet] 1 tab PO DAILY 01/13/18 Acetaminophen [Tylenol Tablet] 650 mg PO Q6H PRN PRN tablet 01/21/18 Cefepime HCl [Maxipime] 2 gm IV Q12 01/21/18 Insulin Lispro [Humalog KwikPen] See Protocol SQ ACHS 01/21/18 Magnesium Hydroxide [Milk Of Magnesia] 30 ml PO DAILY PRN PRN udc 01/21/18 Mometasone Furoate [Nasonex] 2 spray INTRANASAL QDAY 01/21/18 Vancomycin IV 1,500 mg IV Q24H 01/21/18 Primary Care Physician: Pia Newton MD [Primary Care Provider] - Test Results: Test results from this visit will be discussed in further detail at your follow-up appointment, if applicable. Please Follow Up With: Candi [place] DPM - I will round on her on the floor. Please call with questions or concerns Proposed Discharge Date: 02/26/18 02/26/18 4149 <Electronically signed by Candi [place] DPM> Date Candi [place] DPM CC: Pia Newton MD; Ying Ty MD CONSULTATION Observed: 02/26/2018 Status: F Source: GANTT 2:33 PM [facility] REPOSITORY [facility] Medical Records Department [address] [place] [address] Consultation 02/25/18920 MR#: [id number] Acct: [id number] Name: KANDY LAUREN ANN Rep #: [id number] : 1960 58 From: Viviane Aranda PA-C PCP: Pia Newton MD Status: ADM IN Location: [facility] TC4-1 <Ying Ty - Last Filed: 02/25/18 09:49> Reason for Consult History of Present Illness: The patient is a 58 year old F [] Past Medical History Past Medical History (Chronic Problems): Chronic Problems (Last Reviewed 02/25/18 @ 11:58 by Viviane Aranda PA-C) Alopecia (Chronic) alopecia overlying soft tissue mass right temporal parietal scalp Head mass (Chronic) 8 cm soft tissue mass right temporal parietal scalp with overlying alopecia Rheumatoid arthritis (Chronic) Gout (Chronic) Tinea unguium (Chronic) Type 2 diabetes mellitus with diabetic polyneuropathy (Chronic) Peripheral neuropathy (Chronic) Arthritis (Chronic) Hypertension (Chronic) High cholesterol (Chronic) Hypertension (Chronic) Hyperlipidemia (Chronic) Type 2 diabetes mellitus (Chronic) 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) Uncontrolled type 2 diabetes mellitus (Chronic) Non-pressure chronic ulcer of other part of right foot limited to breakdown of skin (Chronic) Tobacco use disorder (Chronic) Pure hypercholesterolemia (Chronic) History of hypertension (Chronic) Type 2 diabetes mellitus with diabetic polyneuropathy (Chronic) History of gout (Chronic) Obesity (Chronic) COPD (chronic obstructive pulmonary disease) (Chronic) Chronic renal insufficiency, stage III (moderate) (Chronic) Type 2 diabetes mellitus with foot ulcer (Chronic) History of diabetes mellitus, type II (Chronic) Medical History: Medical History (Last Reviewed 01/21/18 @ 12:13 by Jose Robbins MD) Arthritis (Chronic) M19.90 Hypertension (Chronic) I10 High cholesterol (Chronic) E78.00 Clostridium difficile infection B96.89 Gout M10.9 Heart disease I51.9 Inflammatory arthritis M19.90 Lupus L93.0 Rheumatoid arthritis M06.9 Diabetes E11.9 Allergies aspirin Allergy (Verified 02/24/18 10:24) Hives latex Allergy (Verified 02/24/18 10:24) Hives Penicillins Allergy (Verified 02/24/18 10:24) Hives naproxen [From Aleve] Adverse Reaction (Severe, Verified 02/24/18 10:24) Kidney disease Stage 3 Home Medications: Ambulatory Orders Medication Instructions Recorded Surgical History: Surgical History (Last Reviewed 01/21/18 @ 12:13 by Jose Robbins MD) History of carpal tunnel release Z98.890 History of hysterectomy Z98.890, Z90.710 amputation of right pinke toe history of 2 back sugeries history of right femoral stent history of right shoulder surgery - *Family History Maternal Family History: Family History (Last Reviewed 01/21/18 @ 12:14 by Jose Robbins MD) Mother Diabetes Hypertension CVA (cerebral vascular accident) Brother Alcoholism Sister Cancer Father Heart disease Respiratory disease Paternal Family History: Family History (Last Reviewed 01/21/18 @ 12:14 by Jose Robbins MD) Mother Diabetes Hypertension CVA (cerebral vascular accident) Brother Alcoholism Sister Cancer Father Heart disease Respiratory disease Patient Problems: Active and Suspected Problems (Last Reviewed 02/25/18 @ 11:58 by Viviane Aranda PA-C) Open left ankle fracture (Acute) Anemia (Acute) - Physical Exam Vital Signs Temp Pulse Resp BP Pulse Ox 98.2 F 77 20 H 159/77 H 98 02/24/18 16:00 02/24/18 16:00 02/24/18 16:00 02/24/18 16:00 02/24/18 16:00 Oxygen Flow Rate (L/min) 2 Oxygen Delivery Method Room Air Weight: 220 lb 3 oz Body Mass Index (BMI) 37.3 Intake and Output for Last 24 Hours Intake Total 1070 / 1070 1920 / 1920 120 / 120 Output Total 4825 / 4825 2600 / 2600 650 / 650 Balance -3755 / -3755 -680 / -680 -530 / -530 Microbiology Past 72 Hours 02/23/18 20:15 Stool Occult Blood (KHARI) - Final Interface Orders Occult Blood Positive 02/16/18 14:00 Blood Culture - Final Blood Culture (Wb) - Pic No growth in 5 days. Laboratory Tests Past 24 Hrs WBC RBC Hgb Hct MCV MCH MCHC RDW POC Glucose POC Glucose 108 Assessment/Plan All Active Problems (Last Reviewed 02/25/18 @ 11:58 by Viviane Aranda PA-C) Acute osteomyelitis involving ankle and foot (Acute) Open left ankle fracture (Acute) Anemia (Acute) Decubitus ulcer of right heel, stage 3 (Acute) Infected decubitus ulcer (Acute) Blister (nonthermal), right great toe, initial encounter (Acute) Non-pressure chronic ulcer of right heel and midfoot with fat layer exposed (Acute) Non-pressure chronic ulcer of left heel and midfoot with fat layer exposed (Resolved) Diabetic foot ulcer associated with type 2 diabetes mellitus (Acute) Struck statnry object w/o fall (Acute) Non-pressure chronic ulcer of other part of right foot with fat layer exposed (Acute) Non-pressure chronic ulcer of other part of right foot with necrosis of bone (Acute) Visual disturbance (Acute) Gangrene of toe of right foot (Acute) Tobacco abuse counseling (Acute) 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 I believe that proceeding with a esophagogastroduodenoscopy and colonoscopy tomorrow under monitored anesthesia care with a bowel prep provided in a controlled setting would be the best opportunity to evaluate the patient's situation. She continues to describe ongoing need for blood transfusion with a source of blood loss as yet not identified. Pending the results of the endoscopy she might benefit from a small bowel follow-through. She might need future camera endoscopy of the small bowel. She is aware of the technique, benefits, risks, alternatives. She is at higher risk. I would anticipate utilizing an adult colonoscope. I will request monitored anesthesia care. Ying Ty M.D., F.A.C.S. <RosiViviane - Last Filed: 02/25/18 12:10> Problem List (1) Anemia Status: Acute Reason for Consult Date of Consultation: 02/25/18 Reason for Consultation: Anemia. Positive occult blood test. History of Present Illness: The patient is a 58 year old F who had fallen in her bathroom in early October and had a compound fracture of the left distal tibia. Patient had initial surgery at [facility] which was complicated by an infected hardware which had to be removed. 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 She noted being discharged to a intermediate in [place] which then she developed C Diff and had fallen again at the intermediate. Patient was transferred back up to [place]. Where she was treated for the C Diff. She had a colonoscopy at that time which per patient there was no source of bleeding identified. Patient notes since this whole process started she has had 15 units of blood approximately. Patient states she was discharged to home for 1 week where yet again she fell. Patient has had multiple surgeries for this specific break. She was taken to surgery more recently by Dr. [place]. Patient notes she was taking large amounts of OxyContin at [facility]. She notes currently she is taking Tylenol. Patient notes the narcotic pain medication had made her sick to her stomach. She notes intermittent melanotic stools. She notes recent intentional weight loss. She notes occasional bright red blood per rectum however she notes hemorrhoids. She denies abdominal pain. She notes a sister with Crohn's. She denies personal history of inflammatory bowel disease, colon cancer. She denies family history of colon cancer. She has been receiving IV antibiotics. She is scheduled for surgery tomorrow with Dr. [place]. She notes having panic attacks. Patient currently has a gardner secondary to being bed bound. She is non-weight bearing on the left lower extremity. She notes history of multiple orthopedic surgeries, right femoral stent placement by Dr. Robbins, total hysterectomy. Today her hgb has increased to 10.4 which is her highest. Her lowest Hgb was 6.7. She has had 1 unit of red blood cells since being admitted to TCU. She denies previous myocardial infarction, stroke or blood clot. Past Medical History Medical History: Medical History (Last Reviewed 02/25/18 @ 11:58 by Viviane Aranda PA-C) Arthritis (Chronic) M19.90 Hypertension (Chronic) I10 High cholesterol (Chronic) E78.00 Clostridium difficile infection B96.89 Gout M10.9 Heart disease I51.9 Inflammatory arthritis M19.90 Lupus L93.0 Rheumatoid arthritis M06.9 Diabetes E11.9 Allergies aspirin Allergy (Verified 02/24/18 10:24) Hives latex Allergy (Verified 02/24/18 10:24) Hives Penicillins Allergy (Verified 02/24/18 10:24) Hives naproxen [From Aleve] Adverse Reaction (Severe, Verified 02/24/18 10:24) Kidney disease Stage 3 Surgical History: Surgical History (Last Reviewed 02/25/18 @ 11:58 by Viviane Aranda PA-C) History of carpal tunnel release Z98.890 History of hysterectomy Z98.890, Z90.710 amputation of right pinke toe history of 2 back sugeries history of right femoral stent history of right shoulder surgery Surgical History: - - The patient has a history of lumbar disc surgery 2. She is undergone total abdominal hysterectomy. She is undergone right carpal tunnel release. She has had right shoulder surgery. Patient is a Ab2, having had 2 abortions. 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 history Lives: Alone Smoking Status: Former smoker Tobacco Use: Non-smoker Alcohol: Rare Drugs: None - *Family History Maternal Family History: Family History (Last Reviewed 02/25/18 @ 11:58 by Viviane Aranda PA-C) Mother Diabetes Hypertension CVA (cerebral vascular accident) Brother Alcoholism Sister Cancer Father Heart disease Respiratory disease History Items: - - Patient's mother at the age of 80 with a history of myocardial infarction, cerebrovascular accident, and polio Paternal Family History: Family History (Last Reviewed 02/25/18 @ 11:58 by Viviane Aranda PA-C) Mother Diabetes Hypertension CVA (cerebral vascular accident) Brother Alcoholism Sister Cancer Father Heart disease Respiratory disease History Items: - - The patient's father at the age of 64 with a history of lung cancer. Review of Systems Constitutional: Reports: Anorexia, Weight Change - intentional, Fatigue HEENT: Denies: Head Aches, Sinus Congestion, Sinus Drainage Cardiovascular: Denies: Chest Pain, Palpitations Respiratory: Denies: Cough, Shortness of breath at rest, Sputum production Gastrointestinal: Reports: Hematochezia, Melena. Denies: Abdominal Pain, Hematemesis, Nausea, Vomiting Genitourinary: Denies: Dysuria Musculoskeletal: Reports: Foot Pain Skin: Reports: Wounds - decubitus ulcer Neurological: Denies: Numbness, Tingling, Focal weakness Psychiatric: Reports: Anxiety Hematologic/ Lymphatic: Reports: Anemia, Easy Bruising, Easy Bleeding, Hx of blood transfusion - Physical Exam General: Alert, Oriented x3, Cooperative HEENT: Atraumatic, PERRLA, EOMI, Normocephalic Neck: Supple, No JVD, Negative Carotid Bruits Lungs: Clear to auscultation, Normal air movement Cardiovascular: Regular rate, No murmurs Abdomen: Bowel Sounds Present, Soft, Non Tender, Non-Distended, Obese Extremities: - - Left lower extremity with external fixation brace intact. No swelling or pitting edema noted Skin: Ulcer/ Wound - buttock Musculoskeletal: Tenderness Neurological: Neuro grossly intact Psych/Mental Status: Appropriate, Anxious Vital Signs Temp Pulse Resp BP Pulse Ox 98.2 F 77 20 H 159/77 H 98 02/24/18 16:00 02/24/18 16:00 02/24/18 16:00 02/24/18 16:00 02/24/18 16:00 Oxygen Flow Rate (L/min) 2 Oxygen Delivery Method Room Air Weight: 220 lb 3 oz Body Mass Index (BMI) 37.3 Intake and Output for Last 24 Hours Intake Total 1070 / 1070 1920 / 1920 120 / 120 Output Total 4825 / 4825 2600 / 2600 650 / 650 Balance -3755 / -3755 -680 / -680 -530 / -530 Microbiology Past 72 Hours 02/23/18 20:15 Stool Occult Blood (KHARI) - Final Interface Orders Occult Blood Positive 02/16/18 14:00 Blood Culture - Final Blood Culture (Wb) - Pic No growth in 5 days. Laboratory Tests Past 24 Hrs WBC RBC Hgb Hct MCV MCH MCHC RDW POC Glucose POC Glucose 108 Assessment/Plan I have been consulted in conjunction with Dr. Ty. He will independently evaluate this patient. Impression: Anemia. Heme positive stools. Melena. Recent hx of left lower extremity compound fracture. Plan: Patient was discussed with Dr. Ty. Dr. Ty will plan to perform an upper and lower endoscopy with possible biopsies tomorrow under [facility]. Procedure details, risks and benefits have been explained to the patient. Patient has had the opportunity to ask and have questions answered Patient verbally understands and agrees with the plan. Will plan for Golytely for bowel prep. Clear liquids all day today. NPO after midnight tonight. Of note, patient has been refusing daily Protonix for her last 3 doses. Thank you for allowing us to participate in this patient's care. My recommendations will be available via electronic medical records. Code Visit Office Visits / Consults: [id number] IP Consult L3 02/25/18 1211 <Electronically signed by Viviane Aranda PA-C> Date Viviane Aranda PA-C 02/26/18 1433<Electronically signed by Ying Ty MD> Cosigner Signature (if applicable): Date Ying Ty MD CC: NORA [place]; Krzysztof Sanchez MD; Pia Newton MD; Bandar Ray MD; Nellie Quezada DPM; Ying Ty MD; Ying Bejarano MD; Gerson Elizondo MD Signed FOOT MIN 3 VIEWS Observed: 02/26/2018 Status: F Source: ANA 2:33 PM [facility] REPOSITORY [facility] Imaging Services [address] [place] [address] Foot min 3 Views MR#: [id number] Acct: [id number] Name: KANDY LAUREN Rep #: [id number] : 1960 F 58 From: Indra Calhoun DO PCP: Pia Newton MD Status: [facility] Study: Foot min 3 Views Date of Exam: 02/26/18 Exam# [id number] Ordering Dr: Candi [place] DPConnie STUDY: X-RAY - RIGHT FOOT CLINICAL: Female, 58 years old. Post calcaneus graft in the OR. TECHNIQUE: 3 view(s) of the foot. COMPARISON: Right foot, November 22, 2016. FINDINGS: There is generalized osteopenia of the osseous structures of the foot. Normal talus and tarsal bones. There are small enthesophytes at the insertions of the Achilles tendon and plantar aponeurosis upon an otherwise normal calcaneus. There is mild arthrosis of the visualized subtalar, talonavicular, calcaneocuboid, tarsal and tarsometatarsal articulations. Normal first through third metatarsi. Again seen are mild in amount of the fourth and fifth metatarsi, consistent with old healed fractures. Normal metatarsophalangeal joint of the great toe. Normal tibial and fibular sesamoid bones. Normal interphalangeal joint of the great toe. Normal phalanges of the great toe. Normal second through fifth metatarsophalangeal joints. There is now surgical absence of the fifth toe distal to the head of the proximal phalanx. Otherwise normal interphalangeal joints and phalanges of the lesser toes. The soft tissue structures are unremarkable. RAD/Foot min 3 Views IMPRESSION: Interval amputation of the fifth digit. The remainder the findings appear grossly unchanged. Electronically Signed: Indra Calhoun DO at 16:11 EST Tel [phone], Service support , CC: NORA [place] MD Political Worker: Signed ANKLE 2 VIEWS Observed: 02/26/2018 Status: F Source: ANA 2:28 PM [facility] REPOSITORY [facility] Imaging Services [address] [place] [address] Ankle 2 Views MR#: [id number] Acct: [id number] Name: KANDY LAUREN Rep #: [id number] : 1960 F 58 From: Indra Calhoun DO PCP: Pia Newton MD Status: [facility] Study: Ankle 2 Views Date of Exam: 02/26/18 Exam# [id number] Ordering Dr: Candi [place] DPM STUDY: X-RAY - LEFT ANKLE REASON FOR EXAM: Female, 58 years old. Postop external fixator adjustment. Tibiotalar fusion. TECHNIQUE: 2 view(s) of the ankle. COMPARISON: February 17, 2018. FINDINGS: Again seen is the external fixation device which appears grossly unchanged in appearance from the previous examination. There is a lucency through the distal aspect of the tibia, unchanged from the prior exam.. There is poor visualization of the distal tibia with multiple small bony densities in the soft tissues in its expected position. The tibiotalar articulation appears intact. The talus, calcaneus and hindfoot are obscured by the overlying hardware. There are multiple surgical clips overlying the ankle. RAD/Ankle 2 Views IMPRESSION: External fixator. There is no major interval change when compared to February 17, 2018 Electronically Signed: Indra Calhoun DO at 16:33 EST Tel [phone], Service support , CC: NORA [place] MD Political Worker: Signed TIBIA AND FIBULA Observed: 02/26/2018 Status: F Source: ANA 2 VIEWS 2:28 PM [facility] REPOSITORY [facility] Imaging Services [address] [place] [address] Tibia AND Fibula 2 Views MR#: [id number] Acct: [id number] Name: KANDY LAUREN Rep #: [id number] : 1960 F 58 From: Indra Calhoun DO PCP: Pia Newton MD Status: [facility] Study: Tibia AND Fibula 2 Views Date of Exam: 02/26/18 Exam# [id number] Ordering Dr: Candi [place] DPM STUDY: X-RAY - LEFT TIBIA AND FIBULA REASON FOR EXAM: Female, 58 years old. Post external fixator adjustment. Tibiotalar fusion. TECHNIQUE: 2 view(s) of the tibia and fibula were obtained. COMPARISON: Left ankle, February 26, 2018. Left tibia fibula, February 17, 2018. FINDINGS: Again seen is external fixation device overlying the lower leg and ankle. No major change in the appearance of the tibia or fibula. Distal fibula is not clearly visualized and thought absent. There is no acute fracture. The knee and ankle are unchanged. Again seen is soft tissue swelling over the ankle with skin clips. RAD/Tibia AND Fibula 2 Views IMPRESSION: External fixation device without major change from February 17, 2018. Electronically Signed: Indra Calhoun DO at 16:36 EST Tel [phone], Service support , CC: NORA [place]; Pia Newton MD Political Worker: Signed FOOT MIN 3 VIEWS Observed: 02/26/2018 Status: F Source: ANA 2:28 PM [facility] REPOSITORY [facility] Imaging Services [address] [place] [address] Foot min 3 Views MR#: [id number] Acct: [id number] Name: KANDY LAUREN Rep #: [id number] : 1960 F 58 From: Indra Calhoun DO PCP: Pia Newton MD Status: [facility] Study: Foot min 3 Views Date of Exam: 02/26/18 Exam# [id number] Ordering Dr: Candi [place] DPM STUDY: X-RAY - LEFT FOOT CLINICAL: Female, 58 years old. Was not external fixator adjustment. Tibiotalar fusion. TECHNIQUE: 3 view(s) of the foot. COMPARISON: Left ankle, February 26, 2018. Left foot, February 17, 2018. FINDINGS: Again seen is the external fixation device which limits evaluation of the hindfoot. The second through fourth metatarsals appear grossly normal. Again seen is mild irregularity about the mid shaft of the first metatarsal. Normal metatarsophalangeal joints. The phalanges and interphalangeal joints appear normal. RAD/Foot min 3 Views IMPRESSION: 1. External fixation device unchanged from prior study. Evaluation of the hindfoot is limited. 2. There is no interval change Electronically Signed: Indra Calhoun DO at 19:08 EST Tel [phone], Service support , CC: NORA [place]; Pia Newton MD Political Worker: Signed BEDSIDE GLUCOSE Collected: 02/26/2018 Status: F Source: ANA 6:55 AM [facility] REPOSITORY TYPE CODE TESTS RESULT OUT OF RANGE REFERENCE UNITS LAB L501.080 70-110 mg/dL Normal BEDSIDE GLU 102 Result Comment: MANAGEMENT OF PATIENT CARE PER NURSING PROTOCOL Performed By: #### L501.080 #### [facility] Point of Care [address] [place] [address] ANKLE MIN 3 VIEWS Observed: 02/26/2018 Status: F Source: ANA 4:21 AM [facility] REPOSITORY [facility] Imaging Services [address] [place] [address] Ankle min 3 Views MR#: [id number] Acct: [id number] Name: KANDY LAUREN Rep #: [id number] : 1960 F 58 From: Audi Ndiaye MD PCP: Pia Newton MD Status: [facility] Study: Ankle min 3 Views Date of Exam: 02/26/18 Exam# [id number] Ordering Dr: Candi [place] DPM STUDY: X-RAY - LEFT ANKLE REASON FOR EXAM: Female, 58 years old. Adjustment of external fixation devices TECHNIQUE: 10 limited C-arm films of the ankle. COMPARISON: 02/26/2018 FINDINGS: Limited C-arm films were performed as the patient has undergone adjustment of the external fixation devices around the left ankle. RAD/Ankle min 3 Views IMPRESSION: External fixation adjustment Electronically Signed: Parrish Ndiaye MD at 17:03 EST , Service support , CC: NORA [place]; Pia Newton MD Political Worker: Signed CBC W/DIFF, AUTOMATED Collected: 02/26/2018 Status: F Source: ANA 4:05 AM [facility] REPOSITORY TYPE CODE TESTS RESULT OUT OF RANGE REFERENCE UNITS LAB L100.1000 4.4-11.0 K/mm3 Normal WBC 5.7 LAB L100.1200 4.2-5.4 M/mm3 Low RBC 3.76 LAB L100.1300 12.0-15.0 g/dl Low HGB 10.4 LAB L100.1400 37-47 % Low HCT 32.6 LAB L100.1500 81-99 fL Normal MCV 86.7 LAB L100.1600 27.0-32.0 pg Normal MCH 27.7 LAB L100.1700 32-36 g/gl Low MCHC 31.9 LAB L100.1810 11.6-14.6 % High RDW CV 16.0 LAB L100.1820 35.1-43.9 fl High RDW SD 49.1 LAB L100.1900 150-450 K/mm3 Normal PLT 203 LAB L100.2000 6.2-12.0 fl Normal MPV 9.3 LAB L100.2100 47-70 % Normal NEUT% 51.8 LAB L100.2200 19-41 % Normal LY% 31.3 LAB L100.2300 0-10 % High MONO% 11.6 LAB L100.2400 0-5 % Normal EO% 3.9 LAB L100.2500 0-1 % Normal BASO% 0.9 LAB L100.2550 0.0-0.9 % Normal IM GRAN % 0.500 Result Comment: IG% - Immature Granulocytes (promyelocytes, myelocytes and metamyelocytes) > 1% indicates that a LEFT SHIFT is Present. LAB L100.2620 2.0-7.7 X10 3/uL Normal Absolute Neut 3.0 LAB L100.2720 0.83-4.51 X10 3/ul Normal Absolute Lymph 1.79 Performed By: #### L100.0100, L101.9900 #### [facility] [address] [facility] [place], [place], [address] ERYTHROCYTE SED RATE Collected: 02/26/2018 Status: F Source: ANA 4:05 AM [facility] REPOSITORY TYPE CODE TESTS RESULT OUT OF RANGE REFERENCE UNITS LAB L102.0000 0-30 mm/hr High SED RATE 89 Performed By: #### L100.0100, L101.9900 #### [facility] [address] [facility] [place] [place], [address] Observed: 02/26/2018 Status: F Source: ANA CULTURE, DEEP WOUND 12:00 AM [facility] REPOSITORY Order Date: 10/30/16 Results called on 03/02/18-899 by ROBIN GUTIERREZ AT [phone]. Comments: Debrided Bone and Tissue Left Medial Ankle Gram Stain Gram Stain 4+ Red Blood Cells 1+ White Blood Cells No organisms seen Wound Culture Copy of report sent to Infection Control Printer [id number] 03/02/18 9264 ROBIN. ORGANISM 1: Meth. resistant Staph. aureus Amount Growth Very Rare Meth. resistant Staph. aureus: REACTION Benzylpenicillin NF >=0.5 R Cefoxitin *NF + Clindamycin $$ >=8 R Inducable Clindamycin Resistan - Erythromycin $ >=8 R Gentamicin $ <=0.5 S Levofloxacin $ >=8 R Linezolid $$$$ 2 S Oxacillin NF >=4 R Tigecycline $$$$ 0.5 S Rifampin $$ <=0.5 S Tetracycline NF 2 S Trimethoprim/Sulfametho $ <=10 S Vancomycin $ 1 S (NF) indicates non-formulary drug at [facility]. Approval by Infectious Disease Specialist required before non-formulary drugs may be ordered and/or dispensed. * CLSI guidelines does not recommend testing of cephalosporins. This interpretation is deduced from Beta-lactam/penicillin results. Cult, Anaerobic No growth in 5 days. Performed By: #### M100.1500 #### [facility] [address] [place], [place], [address] BONE (FX/NONFRACTURE) Observed: 02/26/2018 Status: F Source: [place] 12:00 AM [facility] REPOSITORY Patient: KANDY LAUREN : 1960 (58/F) Acct Num: [id number] Phys: Candi [place] DPM Unit Num: [id number] Loc: EN Specimen: [id number] Received: 02/26/18 - 1667 Spec Type: Bone TISSUES 1 TISSUES: Ankle, NOS GROSS DESCRIPTION Received in fixative is one container labeled with the patient's name and designated debrided bone and tissue left medial ankle. The specimen consists of a piece of pérez bone measuring 0.6 x 0.5 x 0.2 cm. The entire specimen is submitted in one cassette after decalcification. / SJ:jason 02/26/18 TC:2 CPT: 73834, 22300 HEADER OPERATION: Left lower extremity soft tissue and bone debridement PRE-OP DIAGNOSIS: Open left ankle fracture TISSUE SUBMITTED: Debrided bone and tissue left medial ankle MICROSCOPIC DESCRIPTION Slides are reviewed. MICROSCOPIC DIAGNOSIS Bone and soft tissue, left medial ankle, biopsy: A piece of bone with acute osteomyelitis. SJ:jason 03/04/18 Signed Sid Holloway 03/04/18 <signature on file> Performed By: #### PBON #### [facility] [address] [facility] [place] [place], [address] TYPE AND SCREEN Collected: 02/25/2018 Status: F Source: [place] 8:56 PM [facility] REPOSITORY Order Comment: Reason for Type AND Screen/Red Cells: ANEMIA Surgery Date: 02/26/18 TYPE CODE TESTS RESULT OUT OF RANGE REFERENCE UNITS LAB B10.0800 O Normal BLOOD TYPE GEL NEGATIVE LAB B100.4000 Normal Antibody NEGATIVE Screen Performed By: #### L100.0100, B101.7450 #### [facility] [address] [facility] [place], [place], [address] BEDSIDE GLUCOSE Collected: 02/25/2018 Status: F Source: [place] 7:31 AM [facility] REPOSITORY TYPE CODE TESTS RESULT OUT OF RANGE REFERENCE UNITS LAB L501.080 70-110 mg/dL Normal BEDSIDE GLU 108 Result Comment: Orders Followed MANAGEMENT OF PATIENT CARE PER NURSING PROTOCOL Performed By: #### L501.080 #### [facility] Point of Care [address] [facility] [place] [address] PROTHROMBIN TIME W/INR Collected: 02/25/2018 Status: F Source: [place] 5:30 AM [facility] REPOSITORY Order Comment: SPECIMEN OBTAINED FROM LINE DRAW TYPE CODE TESTS RESULT OUT OF RANGE REFERENCE UNITS LAB L300.4150 11.7-14.9 SECONDS High PROTIME 15.6 LAB L300.4200 Normal INR 1.2 Performed By: #### L300.3900, L500.4050 #### [facility] [address] [place], [address] COMPREHENSIVE METABOLIC Collected: 02/25/2018 Status: F Source: ANA PROFIL 5:30 AM [facility] REPOSITORY Order Comment: SPECIMEN OBTAINED FROM LINE DRAW TYPE CODE TESTS RESULT OUT OF RANGE REFERENCE UNITS LAB L501.0100 74-106 mg/dL Normal GLU 104 Result Comment: Fasting Glucose result from 100 to 125 mg/dL suggests IMPAIRED HOMEOSTASIS per A.D.A. criteria. Please note revised GLUCOSE reference range effective 2017. LAB L501.1000 7-18 mg/dL High BUN 52 LAB L501.1100 0.55-1.02 mg/dL High CREAT,SERUM 1.40 Result Comment: The validity of the calculated GFR AND GFRAA in patients over 70 years has not been determined. Clinical correlation is essential. LAB L501.1110 >60 mL/min Low EST GFR 41 Result Comment: Non- GFR Calc LAB L501.1115 >60 mL/min Low EST GFR - AA 49 Result Comment: GFR Calc LAB L501.1255 ml/min Normal Estimated CRCL 40.00 LAB L501.1300 10-20 RATIO High BUN/CRE 37.1 LAB L501.1500 6.4-8. g/dL Normal 2 T PROT 7.3 LAB L501.1800 3.2-5. g/dL Low 0 ALB 2.2 LAB L501.1950 2.2-4. g/dL High 2 GLOB 5.1 LAB L501.2000 0.9-2. RATIO Low 4 A/G 0.4 LAB L501.2200 8.5-10 mg/dL Normal .1 CA 9.1 LAB L501.4100 15-37 U/L Normal AST 26 LAB L501.4305 45-117 U/L High ALK P 137 LAB L501.4405 13-56 U/L Normal ALT 28 LAB L501.4600 0.20-1 mg/dL Normal .00 T BILI 0.40 LAB L501.5300 136-14 mmol/L Normal 5 NA 141 LAB L501.5600 3.5-5. mmol/L Normal 1 K 4.0 LAB L501.5900 98-107 mmol/L Normal CL 107 LAB L501.6100 21.0-3 mmol/L Normal 2.0 CO2 26.0 LAB L501.6200 5-15 Normal GAP 8 Performed By: #### L300.3900, L500.4050 #### [facility] [address] [place], [place], [id number] CBC W/DIFF, AUTOMATED Collected: 02/25/2018 Status: F Source: ANA 5:30 AM [facility] REPOSITORY Order Comment: SPECIMEN OBTAINED FROM LINE DRAW TYPE CODE TESTS RESULT OUT OF RANGE REFERENCE UNITS LAB L100.1000 4.4-11.0 K/mm3 Normal WBC 7.4 LAB L100.1200 4.2-5.4 M/mm3 Low RBC 3.90 LAB L100.1300 12.0-15.0 g/dl Low HGB 10.4 LAB L100.1400 37-47 % Low HCT 33.2 LAB L100.1500 81-99 fL Normal MCV 85.1 LAB L100.1600 27.0-32.0 pg Low MCH 26.7 LAB L100.1700 32-36 g/gl Low MCHC 31.3 LAB L100.1810 11.6-14.6 % High RDW CV 16.3 LAB L100.1820 35.1-43.9 fl High RDW SD 50.2 LAB L100.1900 150-450 K/mm3 Normal PLT 213 LAB L100.2000 6.2-12.0 fl Normal MPV 9.1 LAB L100.2100 47-70 % Normal NEUT% 56.0 LAB L100.2200 19-41 % Normal LY% 30.3 LAB L100.2300 0-10 % Normal MONO% 9.6 LAB L100.2400 0-5 % Normal EO% 3.2 LAB L100.2500 0-1 % Normal BASO% 0.5 LAB L100.2550 0.0-0.9 % Normal IM GRAN % 0.400 Result Comment: IG% - Immature Granulocytes (promyelocytes, myelocytes and metamyelocytes) > 1% indicates that a LEFT SHIFT is Present. LAB L100.2620 2.0-7.7 X10 3/uL Normal Absolute Neut 4.1 LAB L100.2720 0.83-4.51 X10 3/ul Normal Absolute Lymph 2.24 Performed By: #### L100.0100, B101.6718 #### [facility] [address] [place], [address] VITAMIN D 1,25-DIHYDROXY Collected: 02/25/2018 Status: F Source: ANA 5:30 AM [facility] REPOSITORY Order Comment: SPECIMEN OBTAINED FROM LINE DRAW TYPE CODE TESTS RESULT OUT OF RANGE REFERENCE UNITS LAB L3300.0960 19.9-79.3 pg/mL Low VITD 1,25 7.9 17901 Result Comment: Performed at: [facility] [id number] Operations Business Partner: Elva Santamaria MD, Phone: [phone] Performed By: #### L3300.0960 #### [facility] (refer to report for specific site) refer to report for address and phone number VANCOMYCIN, TROUGH Collected: 02/23/2018 Status: F Source: ANA LEVEL 8:41 PM [facility] REPOSITORY Order Comment: Comments: Please draw 02/23 @ 2030 Time Medication is to be Given? 2100 TYPE CODE TESTS RESULT OUT OF REFERENCE UNITS RANGE LAB L501.8820 5.0-15.0 ug/mL High VANCO, TROUGH 17.6 Result Comment: VANCOMYCIN STANDARED DRUG THERAPY TROUGH LEVEL: 5.0 - 15.0 mg/L VANCOMYCIN HIGH INTENSITY THERAPY TROUGH LEVEL: 15.0 - 20.0 mg/L High Intensity therapy recommended for serious life threatening infections include: - Meningitis -Endocarditis -Pneumonia (Ventilator/Healtcare Associated) -Sepsis PLEASE CONTACT PHARMACY SERVICES (#[phone]) FOR INTERPRETATION OF RESULTS. Performed By: #### L501.8820 #### [facility] [address] [place], [address] Observed: 02/23/2018 Status: F Source: ANA STOOL OCCULT BLOOD 8:15 PM [facility] IFOB REPOSITORY STOB iFOB Occult Blood Positive ORGANISM 1: OCCULT BLOOD POSITIVE Performed By: #### M100.7900 #### [facility] [address] [place], [address] BEDSIDE GLUCOSE Collected: 02/23/2018 Status: F Source: ANA 6:29 AM [facility] REPOSITORY TYPE CODE TESTS RESULT OUT OF REFERENCE UNITS RANGE LAB L501.080 70-110 mg/dL High BEDSIDE GLU 120 Result Comment: MANAGEMENT OF PATIENT CARE PER NURSING PROTOCOL Performed By: #### L501.080 #### [facility] Point of Care [address] [place] [address] CONSULTATION Observed: 02/22/2018 Status: F Source: [place] 6:20 PM [facility] REPOSITORY [facility] Medical Records Department [address] [place] [address] Consultation 02/18/18 1855 MR#: [id number] Acct: [id number] Name: KANDY LAUREN ANN Rep #: [id number] : 1960 58 From: Bandar Ray MD PCP: Pia Newton MD Status: ADM IN Y Location: [place] [address] Reason for Consult Date of Consultation: 02/18/18 Reason for Consultation: Soft tissue mass right temporal parietal scalp. REFERRING PHYSICIAN: Dr. Elizondo. CHICKEN CATCHER: Dr. Ray. History of Present Illness: The patient is a 58 year old F who has been admitted for a complex left ankle fracture that has required placement of an external fixator. She is undergoing wound care and IV antibiotics in an effort for limb salvage. While here at [facility] it was noted she had a large soft tissue mass right temporal parietal scalp. Patient states she has had this mass for several years and it has increased in size over the last several months. She denies any trauma. She denies any recent infection in her scalp. She denies any drainage. She has noticed alopecia recently in the area of the enlarging soft tissue mass. I was asked to evaluate this patient for surgical options for treatment of this enlarging. soft tissue mass right temporal parietal scalp. Past Medical History Past Medical History (Chronic Problems): Chronic Problems (Last Reviewed 01/21/18 @ 12:13 by Jose Robbins MD) Alopecia (Chronic) alopecia overlying soft tissue mass right temporal parietal scalp Head mass (Chronic) 8 cm soft tissue mass right temporal parietal scalp with overlying alopecia Rheumatoid arthritis (Chronic) Gout (Chronic) Tinea unguium (Chronic) Type 2 diabetes mellitus with diabetic polyneuropathy (Chronic) Peripheral neuropathy (Chronic) Arthritis (Chronic) Hypertension (Chronic) High cholesterol (Chronic) Hypertension (Chronic) Hyperlipidemia (Chronic) Type 2 diabetes mellitus (Chronic) 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) Uncontrolled type 2 diabetes mellitus (Chronic) Non-pressure chronic ulcer of other part of right foot limited to breakdown of skin (Chronic) Tobacco use disorder (Chronic) Pure hypercholesterolemia (Chronic) History of hypertension (Chronic) Type 2 diabetes mellitus with diabetic polyneuropathy (Chronic) History of gout (Chronic) Obesity (Chronic) COPD (chronic obstructive pulmonary disease) (Chronic) Chronic renal insufficiency, stage III (moderate) (Chronic) Type 2 diabetes mellitus with foot ulcer (Chronic) History of diabetes mellitus, type II (Chronic) Medical History: Medical History (Last Reviewed 01/21/18 @ 12:13 by Jose Robbins MD) Arthritis (Chronic) M19.90 Hypertension (Chronic) I10 High cholesterol (Chronic) E78.00 Clostridium difficile infection B96.89 Gout M10.9 Heart disease I51.9 Inflammatory arthritis M19.90 Lupus L93.0 Rheumatoid arthritis M06.9 Diabetes E11.9 Allergies aspirin Allergy (Verified 02/05/18 09:07) Hives latex Allergy (Verified 02/05/18 09:07) Hives Penicillins Allergy (Verified 02/05/18 09:07) Hives naproxen [From Aleve] Adverse Reaction (Severe, Verified 02/05/18 09:07) Kidney disease Stage 3 Current Medications Acetaminophen (Tylenol) 1,000 mg PO Q6H PRN Albuterol Sulfate (Ventolin Aerosols) 2.5 mg INHALATION Q4H PRN Allopurinol (Zyloprim) 300 mg PO DAILYCM [facility] Amitriptyline HCl (Elavil) 75 mg PO QHS [facility] Atenolol (Tenormin (Beta Jona)) 50 mg PO DAILY [facility] Atorvastatin Calcium (Lipitor) 40 mg PO QHS [facility] Bisacodyl (Dulcolax) 10 mg PO DAILY PRN Calamine/Phenol (Calmoseptine Ointment) 1 applic TOPICAL 0600,2200 [facility]; Protocol Cholecalciferol (Vitamin D) 2,000 unit PO DAILY [facility] Colchicine (Colchicine) 0.6 mg PO QODAY@0800 [facility] Cyclobenzaprine HCl (Flexeril) 10 mg PO TID PRN Diltiazem HCl (Cardizem Cd) 180 mg PO DAILY [facility] Doxycycline Monohydrate (Doxycycline) 100 mg PO BID [facility] Enoxaparin Sodium (Lovenox) 30 mg SC DAILY@0600 [facility] Fluticasone Propionate (Flonase Nasal [place]) 2 spray NASAL DAILY PRN Gabapentin (Neurontin) 300 mg PO TID [facility] Heparin Sodium (Beef Lung) () 50 units IV UD PRN Hydroxychloroquine Sulfate (Plaquenil) 200 mg PO DAILYCM [facility] Cefepime HCl 2 gm/ Sodium (Chloride) 100 mls @ 200 mls/hr IV Q12@1000,2200 [facility] Vancomycin IV Pharmacy to Dose (1,250 ea/ Sodium Chloride) 500 mls @ 250 mls/hr IV PRN PRN; Protocol Vancomycin HCl 750 mg/ Sodium (Chloride) 265 mls @ 250 mls/hr IV Q24H [facility] Linagliptin (Tradjenta) 5 mg PO DAILY [facility] Multi-Ingredient Cream (Eucerin) 1 applic TOPICAL 0600,2200 [facility]; Protocol Multivitamins/Minerals (Multivitamin With Minerals) 1 tablet PO DAILY@0800 [facility] Nutritional Formula (Pancho - Kidder Flavor) 1 packet PO BIDCM [facility] Nutritional Formula (Lactose Free) (Glucerna Shake) 120 ml PO TIDCM [facility] Nystatin (Mycostatin Powder) 1 applic TOPICAL 0600,2200 [facility]; Protocol Nystatin (Nystatin) 500,000 unit PO 4X/DAY [facility] Urfiv-2-Kxbt Ethyl Esters (Lovaza) 1 gm PO DAILY [facility] Ondansetron HCl (Zofran Odt) 4 mg PO Q6H PRN Oxycodone HCl (Oxyir) 5 mg PO Q4H PRN Pantoprazole Sodium (Protonix) 40 mg PO DAILY [facility] Polyethylene Glycol (Miralax) 17 gm PO DAILY [facility] Polysaccharide Iron Complex (Ferrex 150) [facility] Pramipexole Dihydrochloride (Mirapex) 0.25 mg PO DAILY PRN Senna/Docusate Sodium (Senokot-S, Loly-Colace) 2 tablet PO BID [facility] Tamsulosin HCl (Flomax) 0.4 mg PO DAILY@1730 [facility] Tramadol HCl (Ultram) 50 mg PO TID PRN Home Medications: Ambulatory Orders Medication Instructions Recorded Surgical History: Surgical History (Last Reviewed 01/21/18 @ 12:13 by Jose Robbins MD) History of carpal tunnel release Z98.890 History of hysterectomy Z98.890, Z90.710 amputation of right pinke toe history of 2 back sugeries history of right femoral stent history of right shoulder surgery Surgical History: - - The patient has a history of lumbar disc surgery 2. She is undergone total abdominal hysterectomy. She is undergone right carpal tunnel release. She has had right shoulder surgery. Patient is a Ab2, having had 2 abortions. 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 history Lives: Alone Smoking Status: Former smoker Tobacco Use: Non-smoker Alcohol: Rare Drugs: None - *Family History Maternal Family History: Family History (Last Reviewed 01/21/18 @ 12:14 by Jose Robbins MD) Mother Diabetes Hypertension CVA (cerebral vascular accident) Brother Alcoholism Sister Cancer Father Heart disease Respiratory disease History Items: - - Patient's mother at the age of 80 with a history of myocardial infarction, cerebrovascular accident, and polio Paternal Family History: Family History (Last Reviewed 01/21/18 @ 12:14 by Jose Robbins MD) Mother Diabetes Hypertension CVA (cerebral vascular accident) Brother Alcoholism Sister Cancer Father Heart disease Respiratory disease History Items: - - The patient's father at the age of 64 with a history of lung cancer. Review of Systems Comment: Constitutional: Denies: Chills, Fever, Weight Change. HEENT: Denies: Head Aches, Sinus Congestion, Sinus Drainage. Cardiovascular: Denies: Chest Pain, Palpitations. Respiratory: Denies: Cough, Shortness of breath at rest, Sputum production. Gastrointestinal: Denies: Abdominal Pain, Nausea, Vomiting. Genitourinary: Denies: Dysuria. Musculoskeletal: Denies: Joint Pain, Joint Tenderness. Skin: Denies: Rash, Wounds. Neurological: Denies: Numbness, Tingling, Focal weakness. Psychiatric: Denies: Anxiety, Depression, Homicidal Ideations, Suicidal Ideations. Hematologic/ Lymphatic: Denies: Easy Bruising, Easy Bleeding Patient Problems: Active and Suspected Problems (Last Reviewed 01/21/18 @ 12:13 by Jose Robbins MD) Open left ankle fracture (Acute) Anemia (Acute) - Physical Exam General: Alert, Oriented x3, Cooperative HEENT: PERRLA, EOMI. On the right temporal parietal scalp is a soft tissue mass that measures 8 cm. Soft. Mobile. Overlying alopecia. No ulceration.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 (vitamin D3) 2,000 unit capsule 2,000 unit PO DAILY 05/27/17 diltiazem CD 180 mg capsule,extended release 24 hr 180 mg PO DAILY 05/27/17 hydroxychloroquine 200 mg tablet 200 mg PO QDAY 05/27/17 omega-3 fatty acids 1,000 mg capsule 1,000 mg PO QDAY 05/27/17 sitagliptin 100 mg tablet 100 mg PO QDAY 05/27/17 gabapentin 300 mg capsule 300 mg PO TID cap 08/19/17 ipratropium 20 mcg-albuterol 100 mcg/actuation mist for inhalation 1 inh INHALATION Q6H PRN #4 g 08/22/17 Atorvastatin Calcium [Lipitor] 40 mg PO QDAY 01/13/18 Cyclobenzaprine HCl 10 mg PO TID PRN PRN 01/13/18 Multivit-Min/Iron/Folic/Lutein [Centrum Silver Women Tablet] 1 tab PO DAILY 01/13/18 Acetaminophen [Tylenol Tablet] 650 mg PO Q6H PRN PRN tablet 01/21/18 Cefepime HCl [Maxipime] 2 gm IV Q12 01/21/18 Insulin Lispro [Humalog KwikPen] See Protocol SQ ACHS 01/21/18 Magnesium Hydroxide [Milk Of Magnesia] 30 ml PO DAILY PRN PRN udc 01/21/18 Mometasone Furoate [Nasonex] 2 spray INTRANASAL QDAY 01/21/18 Vancomycin IV 1,500 mg IV Q24H 01/21/18 Primary Care Physician: Pia Newton MD [Primary Care Provider] - Test Results: Test results from this visit will be discussed in further detail at your follow-up appointment, if applicable. Proposed Discharge Date: 02/17/18 02/17/182029 <Electronically signed by Candi [place] DPM> Date Candi [place] DPM CC: Pia Newton MD BEDSIDE GLUCOSE Collected: 02/17/2018 Status: F Source: ANA 8:29 PM [facility] REPOSITORY TYPE CODE TESTS RESULT OUT OF REFERENCE UNITS RANGE LAB L501.080 70-110 mg/dL High BEDSIDE GLU 135 Result Comment: MANAGEMENT OF PATIENT CARE PER NURSING PROTOCOL Performed By: #### L501.080 #### [facility] Point of Care [address] [place] [address]. [place] [address] Observed: 02/17/2018 Status: F Source: ANA CULTURE, DEEP WOUND 7:04 PM [facility] REPOSITORY Order Date: 10/30/16 Comments: MEDIAL BONE AND SOFT TISSUE Gram Stain Gram Stain No White Blood Cells No organisms seen Wound Culture No growth aerobically. Cult, Anaerobic No growth in 5 days. Performed By: #### M100.1500 #### [facility] [address] [facility] [place], [address] Observed: 02/17/2018 Status: F Source: ANA CULTURE, DEEP WOUND 7:04 PM [facility] REPOSITORY Order Date: 10/30/16 Comments: LATERAL BONE AND SOFT TISSUE Gram Stain Gram Stain No White Blood Cells No organisms seen Wound Culture No growth aerobically. Cult, Anaerobic No growth in 5 days. Performed By: #### M100.1500 #### [facility] [address] [place], [address] BEDSIDE GLUCOSE Collected: 02/17/2018 Status: F Source: ANA 4:56 PM [facility] REPOSITORY TYPE CODE TESTS RESULT OUT OF REFERENCE UNITS RANGE LAB L501.080 70-110 mg/dL High BEDSIDE GLU 156 Result Comment: MANAGEMENT OF PATIENT CARE PER NURSING PROTOCOL Performed By: #### L501.080 #### [facility] [place] [address] CBC W/DIFF, AUTOMATED Collected: 02/17/2018 Status: F Source: ANA 1:45 PM [facility] REPOSITORY TYPE CODE TESTS RESULT OUT OF RANGE REFERENCE UNITS LAB L100.1000 4.4-11.0 K/mm3 Normal WBC 4.5 LAB L100.1200 4.2-5.4 M/mm3 Low RBC 3.12 LAB L100.1300 12.0-15.0 g/dl Low HGB 8.4 LAB L100.1400 37-47 % Low HCT 26.8 LAB L100.1500 81-99 fL Normal MCV 85.9 LAB L100.1600 27.0-32.0 pg Low MCH 26.9 LAB L100.1700 32-36 g/gl Low MCHC 31.3 LAB L100.1810 11.6-14.6 % High RDW CV 16.9 LAB L100.1820 35.1-43.9 fl High RDW SD 53.6 LAB L100.1900 150-450 K/mm3 Normal PLT 233 LAB L100.2000 6.2-12.0 fl Normal MPV 9.4 LAB L100.2100 47-70 % Low NEUT% 19.7 LAB L100.2200 19-41 % Normal LY% 32.1 LAB L100.2300 0-10 % High MONO% 42.9 LAB L100.2400 0-5 % Normal EO% 3.3 LAB L100.2500 0-1 % High BASO% 1.1 LAB L100.2550 0.0-0.9 % Normal IM GRAN % 0.900 Result Comment: IG% - Immature Granulocytes (promyelocytes, myelocytes and metamyelocytes) > 1% indicates that a LEFT SHIFT is Present. LAB L100.2620 2.0-7.7 X10 3/uL Low Absolute Neut 0.9 LAB L100.2720 0.83-4.51 X10 3/ul Normal Absolute Lymph 1.44 LAB L100.4500 Normal SMEAR COMMENT COMMENT Result Comment: SLIDE SCANNED - MONOCYTOSIS, NEUTROPENIA. Performed By: #### L100.0100 #### [facility] [address] [place], [address] CHEST PA AND LATERAL Observed: 02/17/2018 Status: F Source: GANTT 12:42 PM [facility] REPOSITORY [facility] Imaging Services [address] [place] [address] Chest PA and Lateral MR#: [id number] Acct: [id number] Name: KANDY LAUREN ANN Rep #: [id number] : 1960 F 58 From: Mahesh Olivia MD PCP: Pia [place] MD Status: ADM IN Study: Chest PA and Lateral Date of Exam: 02/17/18 Exam# [id number] Ordering Dr: Candi [place] DPM STUDY: X-RAY CHEST REASON FOR EXAM: Female, 58 years old. Fever. TECHNIQUE: AP and lateral views of the chest. COMPARISON: Comparison is made with prior examination dated February 13, 2018. FINDINGS: The PICC line catheter is not seen at this time. Mild degree of vascular congestion. There is no demonstrated pleural abnormality. There is mild cardiac enlargement. Normal mediastinum and josie. Normal visualized pulmonary arteries. There is atherosclerotic calcification of the aortic arch with tortuosity. There are diffuse degenerative changes of the visualized thoracic spine. There is degenerative osteoarthritis of the bilateral shoulders. There is no demonstrated abnormality of the visualized soft tissue structures of the upper abdomen. RAD/Chest PA and Lateral IMPRESSION: Mild cardiomegaly. Mild degree of vascular congestion. Electronically Signed: Mahesh Olivia MD at 13:36 EST Tel [phone], Service support , CC: NORA [place]; Pia Newton MD Political Worker: Signed FOOT MIN 3 VIEWS Observed: 02/17/2018 Status: F Source: ANA 12:42 PM [facility] REPOSITORY [facility] Imaging Services [address] [place] [address] Foot min 3 Views MR#: [id number] Acct: [id number] Name: KANDY LAUREN ANN Rep #: [id number] : 1960 F 58 From: Mahesh Olivia MD PCP: Pia [place] MD Status: ADM IN Study: Foot min 3 Views Date of Exam: 02/17/18 Exam# [id number] Ordering Dr: Candi [place] DPM STUDY: X-RAY - LEFT FOOT CLINICAL: Female, 58 years old. External fixation device. TECHNIQUE: 3 view(s) of the foot. COMPARISON: Comparison is made with prior study dated February 12, 2018. FINDINGS: An external fixation device is seen. Multiple metal rods and screws are seen. A new fixation device is seen at the base of the metatarsals. RAD/Foot min 3 Views IMPRESSION: External fixation device. Electronically Signed: Mahesh Olivia MD at 14:03 EST Tel [phone], Service support , CC: NORA [place] MD Political Worker: Signed ANKLE MIN 3 VIEWS Observed: 02/17/2018 Status: F Source: ANA 12:42 PM [facility] REPOSITORY [facility] Imaging Services [address] [place] [address] Ankle min 3 Views MR#: [id number] Acct: [id number] Name: KANDY LAUREN ANN Rep #: [id number] : 1960 F 58 From: Mahesh Olivia MD PCP: Pia [place] MD Status: ADM IN Study: Ankle min 3 Views Date of Exam: 02/17/18 Exam# [id number] Ordering Dr: Candi [place] DPM STUDY: X-RAY - LEFT ANKLE REASON FOR EXAM: Female, 58 years old. An external fixation device. TECHNIQUE: 3 view(s) of the ankle. COMPARISON: Comparison is made with prior examination dated February 12, 2018. FINDINGS: Stable appearance of the external fixation device. There is evidence of resection of the distal fibula. There appears to be erosive changes of the dome of the talus. Stable avulsion fracture of the medial malleolus. Stable lateral subluxation of the tibial talar articulation. RAD/Ankle min 3 Views IMPRESSION: Stable examination. Electronically Signed: Mahesh Olivia MD at 14:04 EST Tel [phone], Service support , CC: NORA [place]; Pia Newton MD Political Worker: Signed TIBIA AND FIBULA Observed: 02/17/2018 Status: F Source: GANTT 2 VIEWS 12:42 PM [facility] REPOSITORY [facility] Imaging Services [address] [place] [address] Tibia AND Fibula 2 Views MR#: [id number] Acct: [id number] Name: KANDY LAUREN ANN Rep #: [id number] : 1960 F 58 From: Mahesh Olivia MD PCP: Pia [place] MD Status: ADM IN Study: Tibia AND Fibula 2 Views Date of Exam: 02/17/18 Exam# [id number] Ordering Dr: Candi [place] DPM STUDY: X-RAY - LEFT TIBIA AND FIBULA REASON FOR EXAM: Female, 58 years old. Pain. External fixation device. TECHNIQUE: AP and lateral view(s) of the tibia and fibula were obtained. COMPARISON: Comparison is made with prior study February 12, 2018. FINDINGS: An external fixation device is seen. There is been essentially no change since prior study. RAD/Tibia AND Fibula 2 Views IMPRESSION: Stable examination. Electronically Signed: Mahesh Olivia MD at 14:05 EST Tel [phone], Service support , CC: NORA [place]; Pia Newton MD Political Worker: Signed URINALYSIS, COMPLETE Collected: 02/17/2018 Status: F Source: ANA 11:00 AM [facility] REPOSITORY Order Comment: How was Urine Obtained? PEARL CUTTER TO SPECIFY TYPE CODE TESTS RESULT OUT OF RANGE REFERENCE UNITS LAB L400.3000 Yellow COLOR Normal Yellow LAB L400.3050 Clear Normal CLARITY Sl. Cloudy LAB L400.3200 Normal mg/dl Normal GLUCOSE, UR Normal LAB L400.3300 Negative mg/dL Normal BILIRUBIN URINE Negative LAB L400.3400 Negative mg/dl Normal KETONE UR Negative LAB L400.3465 1.002-1.030 Normal SP.GR. DIPSTX 1.010 LAB L400.3550 5.0 - 8.0 pH UR Normal 6.0 LAB L400.3600 Negative mg/dl High PROT DIPSTX 100 LAB L400.3700 Normal mg/dl Normal UROBILI Normal LAB L400.3750 Negative Normal NITRITE UR Negative LAB L400.3780 Negative /ul High 10 OCCULT BLOOD-UR LAB L400.3800 Negative /ul LEUK Normal ESTERASE Negative LAB L400.4050 0-5 /hpf WBC 0 Normal SEEN LAB L400.4100 0-5 /hpf Normal RBC-UA 0-5 SEEN LAB L400.4150 5-10 /hpf SQUAM Normal EPI 0-5 SEEN LAB L400.4300 None Seen /hpf 1+ Normal BACTERIA LAB L400.4350 <or=2+ /hpf 0 Normal MUCUS, URINE SEEN Performed By: #### L400.0001 #### [facility] [address] [place], [address] Observed: 02/17/2018 Status: F Source: ANA CULTURE, URINE 11:00 AM [facility] REPOSITORY Urine Culture Culture exhibits no growth. Performed By: #### M100.0650 #### [facility] [address] [place], [address] BEDSIDE GLUCOSE Collected: 02/17/2018 Status: F Source: ANA 6:28 AM [facility] REPOSITORY TYPE CODE TESTS RESULT OUT OF REFERENCE UNITS RANGE LAB L501.080 70-110 mg/dL High BEDSIDE GLU 142 Result Comment: MANAGEMENT OF PATIENT CARE PER NURSING PROTOCOL Performed By: #### L501.080 #### [facility] Point of Care [address] [place] [address] BONE (FX/NONFRACTURE) Observed: 02/17/2018 Status: F Source: ANA 12:00 AM [facility] REPOSITORY Patient: KANDY LAUREN : 1960 (58/F) Acct Num: [id number] Phys: Candi [place] DPM Unit Num: [id number] [place] [facility] [place]: [id number] Received: 02/18/18918 Spec Type: Bone TISSUES 1 TISSUES: A. Bone of lower extremity, NOS B. Bone of lower extremity, NOS COMMENT B. Bony tissue is not present in the biopsy. Clinical correlation is suggested. GROSS DESCRIPTION A - Received in fixative is one container labeled with the patient's name and designated medial bone and soft tissue. The specimen consists of two pieces of bone mixed with soft tissue measuring in aggregate 1 x 0.5 x 0.3 cm. The entire specimen is submitted in one cassette after decalcification. B - Received in fixative is one container labeled with the patient's name and designated lateral bone and soft tissue. The specimen consists of two pieces of hemorrhagic soft tissue measuring in aggregate 1.2 x 1 x 0.2 cm. The entire specimen is submitted in one cassette. / SJ:jason 02/18/18 TC:5 CPT: 69976 x2, 62956 HEADER OPERATION: Left lower leg soft tissue and bone debridement PRE-OP DIAGNOSIS: Left leg cellulitis TISSUE SUBMITTED: A - Medial bone and soft tissue, B - Lateral bone and soft tissue MICROSCOPIC DESCRIPTION Slides are reviewed. MICROSCOPIC DIAGNOSIS A. 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 No evidence of acute osteomyelitis. B. Lateral bone and soft tissue, biopsy: Fragments of granulation tissue with associated fibrinoid material and organizing blood clot. See comment. AM:jason 02/25/18 Signed [facility] 02/25/18 <signature on file> Performed By: #### PBON #### [facility] [address] MRSA WOUND DNA BY Collected: 2018 Status: F Source: GANTT PCR 2:00 PM [facility] REPOSITORY Order Comment: Interface Comments: drainage from PICC insertion site Order Date: 02/16/18 Has pt arrived? Y Specimen Source? drainage from PICC line insertion site TYPE CODE TESTS RESULT OUT OF RANGE REFERENCE UNITS LAB L8200.1100 Negative Normal MRSA Negative RESULT LAB L8200.1150 Negative Normal SA RESULT NEGATIVE Performed By: #### L8200.1075 #### [facility] [place], [address] Observed: 2018 Status: F Source: ANA CULTURE, BODY FLUID 2:00 PM [facility] REPOSITORY Interface Comments: drainage from PICC insertion site Order Date: 02/16/18 Has pt arrived? Y List Antibiotics Last 48 Hours? twan del angel Comments: Drainage from PICC line insertion site Gram Stain Gram Stain 3+ Red Blood Cells No organisms seen Body Fluid Cult No growth aerobically. Cult, Anaerobic No growth in 5 days. Performed By: #### M100.1300 #### [facility] [address] Observed: 2018 Status: F Source: ANA CULTURE, WOUND 2:00 PM [facility] REPOSITORY Order Date: 02/16/18 List Antibiotics Last 48 Hours? vanco, maxipine Has pt arrived? Y Comments: PICC line catheter tip Gram Stain Test not performed Wound Culture ORGANISM 1: Staphylococcus epidermidis Amount Growth Growth Staphylococcus epidermidis: REACTION Benzylpenicillin NF >=0.5 R Cefoxitin *NF + Clindamycin $$ >=8 R Inducable Clindamycin Resistan - Erythromycin $ >=8 R Gentamicin $ <=0.5 S Levofloxacin $ >=8 R Linezolid $$$$ 2 S Oxacillin NF >=4 R Tigecycline $$$$ <=0.12 S Rifampin $$ <=0.5 S Tetracycline NF 2 S Vancomycin $ 1 S (NF) indicates non-formulary drug at [facility]. Approval by Infectious Disease Specialist required before non-formulary drugs may be ordered and/or dispensed. * CLSI guidelines does not recommend testing of cephalosporins. This interpretation is deduced from Beta-lactam/penicillin results. Performed By: #### M100.1400 #### [facility] [address] [place], [address] Observed: 2018 Status: F Source: ANA CULTURE, BLOOD (WB) 2:00 PM [facility] REPOSITORY List Antibiotics Last 48 Hours? vanco, maxipine BC No growth in 5 days. Performed By: #### M200.1000 #### [facility] [address] [place], [address] Observed: 2018 Status: F Source: ANA CULTURE, BLOOD (WB) 12:15 PM [facility] REPOSITORY List Antibiotics Last 48 Hours? vanco, maxipine BC No growth in 5 days. Performed By: #### M200.1000 #### [facility] [address] [place], [address] BEDSIDE GLUCOSE Collected: 2018 Status: F Source: ANA 6:34 AM [facility] REPOSITORY TYPE CODE TESTS RESULT OUT OF REFERENCE UNITS RANGE LAB L501.080 70-110 mg/dL High BEDSIDE GLU 126 Result Comment: MANAGEMENT OF PATIENT CARE PER NURSING PROTOCOL Performed By: #### L501.080 #### [facility] Point of Care [address] [place], [place] [id number] BEDSIDE GLUCOSE Collected: 02/15/2018 Status: F Source: ANA 6:42 AM [facility] REPOSITORY TYPE CODE TESTS RESULT OUT OF REFERENCE UNITS RANGE LAB L501.080 70-110 mg/dL High BEDSIDE GLU 153 Result Comment: MANAGEMENT OF PATIENT CARE PER NURSING PROTOCOL Performed By: #### L501.080 #### [facility] Point of Care [address] [place], [place] [id number] VANCOMYCIN, TROUGH Collected: 02/14/2018 Status: F Source: ANA LEVEL 5:24 PM [facility] REPOSITORY Order Comment: Time Medication is to be Given? 1800 TYPE CODE TESTS RESULT OUT OF REFERENCE UNITS RANGE LAB L501.8820 5.0-15.0 ug/mL High VANCO, TROUGH 17.9 Result Comment: VANCOMYCIN STANDARED DRUG THERAPY TROUGH LEVEL: 5.0 - 15.0 mg/L VANCOMYCIN HIGH INTENSITY THERAPY TROUGH LEVEL: 15.0 - 20.0 mg/L High Intensity therapy recommended for serious life threatening infections include: - Meningitis -Endocarditis -Pneumonia (Ventilator/Healtcare Associated) -Sepsis PLEASE CONTACT PHARMACY SERVICES (#[id number]) FOR INTERPRETATION OF RESULTS. Performed By: #### L501.8820 #### [facility] [address] [place], [place], [address] BEDSIDE GLUCOSE Collected: 02/14/2018 Status: F Source: ANA 6:40 AM [facility] REPOSITORY TYPE CODE TESTS RESULT OUT OF REFERENCE UNITS RANGE LAB L501.080 70-110 mg/dL High BEDSIDE GLU 135 Result Comment: MANAGEMENT OF PATIENT CARE PER NURSING PROTOCOL Performed By: #### L501.080 #### [facility] Point of Care [address] [place], [place] [id number] URINALYSIS, COMPLETE Collected: 02/13/2018 Status: F Source: ANA 11:16 AM [facility] REPOSITORY Order Comment: How was Urine Obtained? CATHETER SPECIMEN TYPE CODE TESTS RESULT OUT OF RANGE REFERENCE UNITS LAB L400.3000 Yellow COLOR Normal Yellow LAB L400.3050 Clear Normal CLARITY Sl. Cloudy LAB L400.3200 Normal mg/dl Normal GLUCOSE, UR Normal LAB L400.3300 Negative mg/dL Normal BILIRUBIN URINE Negative LAB L400.3400 Negative mg/dl Normal KETONE UR Negative LAB L400.3465 1.002-1.030 Normal SP.GR. DIPSTX 1.010 LAB L400.3550 5.0 - 8.0 pH UR Normal 6.0 LAB L400.3600 Negative mg/dl High PROT DIPSTX 500 LAB L400.3700 Normal mg/dl Normal UROBILI Normal LAB L400.3750 Negative Normal NITRITE UR Negative LAB L400.3780 Negative /ul High 50 OCCULT BLOOD-UR LAB L400.3800 Negative /ul LEUK Normal ESTERASE Negative LAB L400.4050 0-5 /hpf WBC 0 Normal SEEN LAB L400.4100 0-5 /hpf Normal RBC-UA 0-5 SEEN LAB L400.4150 5-10 /hpf SQUAM Normal EPI 0-5 SEEN LAB L400.4300 None Seen /hpf 1+ Normal BACTERIA LAB L400.4350 <or=2+ /hpf 0 Normal MUCUS, URINE SEEN LAB L400.5200 None Seen /hpf 1+ Normal YEAST-URINE Performed By: #### L400.0001 #### [facility] [address] [place], [address] CBC W/DIFF, AUTOMATED Collected: 02/13/2018 Status: C Source: [place] 9:45 AM [facility] REPOSITORY TYPE CODE TESTS RESULT OUT OF RANGE REFERENCE UNITS LAB L100.1000 4.4-11.0 K/mm3 Low WBC 3.0 LAB L100.1200 4.2-5.4 M/mm3 Low RBC 3.24 LAB L100.1300 12.0-15.0 g/dl Low HGB 8.8 LAB L100.1400 37-47 % Low HCT 28.1 LAB L100.1500 81-99 fL Normal MCV 86.7 LAB L100.1600 27.0-32.0 pg Normal MCH 27.2 LAB L100.1700 32-36 g/gl Low MCHC 31.3 LAB L100.1810 11.6-14.6 % High RDW CV 17.0 LAB L100.1820 35.1-43.9 fl High RDW SD 53.9 LAB L100.1900 150-450 K/mm3 Normal PLT 150 LAB L100.2000 6.2-12.0 fl Normal MPV 9.3 LAB L100.2620 2.0-7.7 X10 3/uL Low Absolute Neut 0.7 Result Comment: AMENDED REPORT 02/16/18 207 Absolute Neut previously reported as: 0.0 L X10^3/uL LAB L100.2720 0.83-4.51 X10 3/ul Normal Absolute Lymph 1.44 Result Comment: AMENDED REPORT 02/16/18 468 Absolute Lymph previously reported as: 1.43 X10^3/ul LAB L100.3100 MANUAL DIFF Normal CELLS COUNTED 100 LAB L100.3200 47-70 % Low 8 SEGS LAB L100.3300 0-5 % 16 High BAND LAB L100.3400 0-1 % 2 High META LAB L100.3500 0-0 2 High MYELO LAB L100.3800 19-41 % 48 High LYMPH LAB L100.3900 0-10 % 24 High MONOCYTE LAB L100.4600 % 1+ Normal ATYPICAL LYMPH LAB L100.5500 ADEQ Normal PLT EST ADEQUATE LAB L100.7000 NORM C AND NORMAL C N Normal RED CELL MORPH CHROM LAB L100.7300 1+ Normal ANISO LAB L100.9900 Normal PATH REV Reviewed Result Comment: Leukopenia, neutropneia and Normocytic anemia. Clinical correlation necessary. Sid Holloway M.D. 02/16/18 AMENDED REPORT 02/16/18 3415 PATH REV previously reported as: July Performed By: #### L100.0100 #### [facility] [address] [place], [address] AMMONIA Collected: 02/13/2018 Status: F Source: ANA 9:45 AM [facility] REPOSITORY TYPE CODE TESTS RESULT OUT OF RANGE REFERENCE UNITS LAB L503.5510 11-32 umol/L Normal AMMONIA 12.0 Performed By: #### L503.5510 #### [facility] [place], [address] COMPREHENSIVE METABOLIC Collected: 02/13/2018 Status: F Source: ANA [place] 9:45 AM [facility] REPOSITORY TYPE CODE TESTS RESULT OUT OF RANGE REFERENCE UNITS LAB L501.0100 74-106 mg/dL High GLU 212 Result Comment: Glucose result greater than or equal to 200 mg/dL suggests DIABETES MELLITUS per A.D.A. criteria. Please note revised GLUCOSE reference range effective 2017. LAB L501.1000 7-18 mg/dL High BUN 71 LAB L501.1100 0.55-1.02 mg/dL High CREAT,SERUM 1.61 Result Comment: The validity of the calculated GFR AND GFRAA in patients over 70 years has not been determined. Clinical correlation is essential. LAB L501.1110 >60 mL/min Low EST GFR 35 Result Comment: Non- GFR Calc LAB L501.1115 >60 mL/min Low EST GFR - AA 42 Result Comment: GFR Calc LAB L501.1255 ml/min Normal Estimated CRCL 35.22 LAB L501.1300 10-20 RATIO High BUN/CRE 44.1 LAB L501.1500 6.4-8. g/dL Normal 2 T PROT 7.5 LAB L501.1800 3.2-5. g/dL Low 0 ALB 2.2 LAB L501.1950 2.2-4. g/dL High 2 GLOB 5.3 LAB L501.2000 0.9-2. RATIO Low 4 A/G 0.4 LAB L501.2200 8.5-10 mg/dL Normal .1 CA 8.6 LAB L501.4100 15-37 U/L Low AST 10 LAB L501.4305 45-117 U/L Normal ALK P 100 LAB L501.4405 13-56 U/L Normal ALT 15 LAB L501.4600 0.20-1 mg/dL Normal .00 T BILI 0.30 LAB L501.5300 136-14 mmol/L Normal 5 NA 136 LAB L501.5600 3.5-5. mmol/L Normal 1 K 4.2 LAB L501.5900 98-107 mmol/L Normal CL 104 LAB L501.6100 21.0-3 mmol/L Normal 2.0 CO2 23.0 LAB L501.6200 5-15 Normal GAP 9 Performed By: #### L500.4050 #### [facility] [address] [place], [address] CHEST 1 VIEW Observed: 02/13/2018 Status: F Source: [place] (PORTABLE) 9:17 AM [facility] REPOSITORY [facility] Imaging Services [address] [place] [address] Chest 1 View (Portable) MR#: [id number] Acct: [id number] Name: KANDY LAUREN ANN Rep #: [id number] : 1960 F 57 From: Audi Morillo MD PCP: Pia Newton MD Status: ADM IN Study: Chest 1 View (Portable) Date of Exam: 02/13/18 Exam# [id number] Ordering Dr: Gerson Elizondo MD STUDY: X-RAY CHEST REASON FOR EXAM: Female, 57 years old. Mental status change. TECHNIQUE: Single AP portable upright view of the chest. COMPARISON: PA and lateral chest x-ray January 16, 2018. FINDINGS: Right PICC line tip is at the confluence of the brachiocephalic and azygos veins to the superior vena cava. The lungs are clear, although not as fully expanded today. There is no demonstrated pleural abnormality. Normal size heart. Normal mediastinum and josie. Normal visualized pulmonary arteries. There is stable atherosclerotic calcification of the aortic arch. There are stable multilevel degenerative changes of the visualized thoracic spine. There is stable degenerative osteoarthritis of the bilateral shoulders. Stable tapered deformity of the distal right clavicle, which may represent postsurgical change. There is no demonstrated abnormality of the visualized soft tissue structures of the upper abdomen. RAD/Chest 1 View (Portable) IMPRESSION: No acute cardiopulmonary disease. Right PICC line tip is in the upper superior vena cava. Electronically Signed: Parrish Morillo MD at 11:01 EST , Service support , CC: Pia Newton MD; Gerson Elizondo MD Political Worker: Signed ABDOMEN SINGLE VIEW Observed: 02/13/2018 Status: F Source: [place] (PORTABLE) 9:17 AM [facility] REPOSITORY [facility] Imaging Services [address] [place], [place] [address] [address] Abdomen Single View (Portable) MR#: [id number] Acct: [id number] Name: KANDY LAUREN ANN Rep #: [id number] : 1960 F 57 From: Audi Morillo MD PCP: Pia Newton MD Status: ADM IN Study: Abdomen Single View (Portable) Date of Exam: 02/13/18 Exam# [id number] Ordering Dr: Gerson Elizondo MD STUDY: X-RAY - ABDOMEN/PELVIS REASON FOR EXAM: Female, 57 years old. Mental status change. TECHNIQUE: AP supine view of the abdomen / pelvis on 5 films. COMPARISON: None. FINDINGS: Normal visualized lung bases. There is a nonspecific pattern of gas in nondistended segments of small bowel and colon. There is moderate fecal material in the colon.. There is no demonstrated free abdominal air. The visualized liver, spleen and kidneys are grossly normal in size and morphology. There is atherosclerotic calcific plaquing of the abdominal aorta and proximal femoral arteries. There are a few calcified phleboliths in the pelvis. There are diffuse degenerative changes of the visualized spine and degenerative arthrosis of right sacroiliac joint. RAD/Abdomen Single View (Portable) IMPRESSION: 1. Nonspecific bowel gas pattern. No free gas. 2. Atherosclerotic calcific plaquing of the abdominal aorta without overt aneurysm. However, this portends moderately significant risk for future cardiovascular event, Abdominal Aortic Calcific Deposits Are an Important Predictor of Vascular Morbidity and Mortality; José Miguel Mcmullen et al. Circulation, May 2000;103:1999-9096. 3. 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 Electronically Signed: Parrish Morillo MD at 11:17 EST , Service support , CC: Pia Newton MD; Gerson Elizondo MD Political Worker: Signed BEDSIDE GLUCOSE Collected: 02/13/2018 Status: F Source: ANA 6:30 AM [facility] REPOSITORY TYPE CODE TESTS RESULT OUT OF REFERENCE UNITS RANGE LAB L501.080 70-110 mg/dL High BEDSIDE GLU 150 Result Comment: MANAGEMENT OF PATIENT CARE PER NURSING PROTOCOL Performed By: #### L501.080 #### [facility] Point of Care [address] [place], [place] [address] VANCOMYCIN, TROUGH Collected: 02/12/2018 Status: F Source: ANA LEVEL 6:05 PM [facility] REPOSITORY Order Comment: Comments: Please draw 02/12 @ 1730 Time Medication is to be Given? 1800 TYPE CODE TESTS RESULT OUT OF REFERENCE UNITS RANGE LAB L501.8820 5.0-15.0 ug/mL High VANCO, TROUGH 15.7 Result Comment: VANCOMYCIN STANDARED DRUG THERAPY TROUGH LEVEL: 5.0 - 15.0 mg/L VANCOMYCIN HIGH INTENSITY THERAPY TROUGH LEVEL: 15.0 - 20.0 mg/L High Intensity therapy recommended for serious life threatening infections include: - Meningitis -Endocarditis -Pneumonia (Ventilator/Healtcare Associated) -Sepsis PLEASE CONTACT PHARMACY SERVICES (#[id number]) FOR INTERPRETATION OF RESULTS. Performed By: #### L501.8820 #### [facility] [address] [place], [place], [id number] ANKLE 2 VIEWS Observed: 02/12/2018 Status: F Source: ANA 1:14 PM [facility] REPOSITORY [facility] Imaging Services [address] [place] [address] Ankle 2 Views MR#: [id number] Acct: [id number] Name: KANDY LAUREN ANN Rep #: [id number] : 1960 F 57 From: Audi Morillo MD PCP: Pia Newton MD Status: ADM IN Study: Ankle 2 Views Date of Exam: 02/12/18 Exam# [id number] Ordering Dr: Candi [place] DPM STUDY: X-RAY - LEFT ANKLE REASON FOR EXAM: Female, 57 years old. Pain, no new injury. TECHNIQUE: 2 view(s) of the ankle. COMPARISON: 3 views of the left ankle January 29, 2018. FINDINGS: The lower leg and foot are secured by an external fixation device which extends across and moderately obscures detail of the ankle. Again seen is resection of the distal fibular metadiaphysis. There is an angulated, mildly displaced transverse intra-articular fracture at the base of the medial malleolus. Additional lucencies in the distal tibial metaphysis may reflect fracture or old pin tracks. There is 50% lateral subluxation of the tibiotalar articulation, slightly worsened from prior study. The talus and calcaneus are poorly visualized. Limited visualization of the subtalar, talonavicular, calcaneocuboid and tarsal articulations. There is persistent soft tissue swelling at the ankle. A number of metal skin cristian now project along the anteromedial aspect of the ankle. RAD/Ankle 2 Views IMPRESSION: X-ray examination of the ankle limited by the presence of a large metal external fixation device. Grossly, resection of the distal fibula as well as angulated, displaced fracture of the medial malleolus again noted. There is slight worsened lateral subluxation of the tibiotalar articulation. Electronically Signed: Parrish Morillo MD at 17:47 EST , Service support , CC: NORA [place]; Pia Newton MD Political Worker: Signed FOOT MIN 3 VIEWS Observed: 02/12/2018 Status: F Source: ANA 1:14 PM [facility] REPOSITORY [facility] Imaging Services [address] [place] [address] Foot min 3 Views MR#: [id number] Acct: [id number] Name: KANDY LAUREN Rep #: [id number] : 1960 F 57 From: Audi Morillo MD PCP: Pia Newton MD Status: ADM IN Study: Foot min 3 Views Date of Exam: 02/12/18 Exam# [id number] Ordering Dr: Candi [place] DPM STUDY: X-RAY - LEFT FOOT CLINICAL: Female, 57 years old. Pain, no known injury. TECHNIQUE: 3 view(s) of the foot. COMPARISON: 2 views of the left foot January 29, 2018 FINDINGS: Again seen is an external fixation device connected to the metal rods passing through the posterior calcaneus, anterior talus, and bases of one or more metatarsals. This significantly obscures detail. Limited visualization of the talus, calcaneus, and tarsal bones. Mostly normal visualized talonavicular, calcaneocuboid, tarsal and tarsometatarsal articulations. Subtalar articulations are not well seen Again seen is a moderately defined, rounded cortical defect in the medial proximal diaphysis of the first metatarsal. The 2-5 metatarsals are grossly unremarkable. Normal metatarsophalangeal joint of the great toe. Normal tibial and fibular sesamoid bones. Normal interphalangeal joint of the great toe. Deformity of the proximal to midportion of the fifth proximal phalanx may be an old healed fracture but otherwise, normal phalanges of the great toe. Normal second through fifth metatarsophalangeal joints. Normal interphalangeal joints and phalanges of the lesser toes. There is stable soft tissue swelling of the left foot. There is no demonstrated acute osseous abnormality from the prior study. RAD/Foot min 3 Views IMPRESSION: Stable, limited x-ray examination of the foot, as described above. Electronically Signed: Parrish Morillo MD at 17:51 EST , Service support , CC: NORA [place]; Pia Newton MD Political Worker: Signed TIBIA AND FIBULA Observed: 02/12/2018 Status: F Source: [place] 2 VIEWS 1:14 PM [facility] REPOSITORY [facility] Imaging Services [address] [place] [address] Tibia AND Fibula 2 Views MR#: [id number] Acct: [id number] Name: KANDY LAUREN ANN Rep #: [id number] : 1960 F 57 From: Audi Morillo MD PCP: Pia Newton MD Status: ADM IN Study: Tibia AND Fibula 2 Views Date of Exam: 02/12/18 Exam# [id number] Ordering Dr: Candi [place] DPM STUDY: X-RAY - LEFT TIBIA AND FIBULA REASON FOR EXAM: Female, 57 years old. Pain. No new injury. TECHNIQUE: Frontal and lateral view(s) of the tibia and fibula were obtained. COMPARISON: Frontal and lateral views of the left lower leg January 29, 2018. FINDINGS: External fixation device is again seen connected to metal pins entering the mid tibial diaphysis. There are also old pin tracts in the mid and distal diaphysis of the tibia. Prior resection of the distal fibula metaphysis is unchanged. Angulated, mildly displaced fracture of the medial malleolus seen on previous exams is not fully included in the rtrjt-[id number] tear. There is persistent 50% lateral subluxation and moderate lateral angulation of the tibiotalar articulation. New skin cristian project along the anterior and medial aspect of the left ankle. There is slightly worsened superficial soft tissue swelling in the mid to distal third of the lower leg. Atherosclerotic vascular calcifications also again noted. RAD/Tibia AND Fibula 2 Views IMPRESSION: Closely stable x-ray examination of the left tibia and fibula, including prior resection of the distal fibula, displaced, angulated fracture of medial malleolus, and lateral subluxation of the ankle joint. Fixation pins in the mid tibial diaphysis are again seen connected to an external fixation device. There is mild increased superficial soft tissue swelling of the mid to distal third of the lower leg. Atherosclerotic vascular calcifications again noted. Electronically Signed: Parrish Morillo MD at 17:54 EST , Service support , CC: NORA [place]; Pia Newton MD Political Worker: Signed CBC W/DIFF, AUTOMATED Collected: 02/12/2018 Status: F Source: [place] 6:40 AM [facility] REPOSITORY TYPE CODE TESTS RESULT OUT OF RANGE REFERENCE UNITS LAB L100.1000 4.4-11.0 K/mm3 Low WBC 2.2 LAB L100.1200 4.2-5.4 M/mm3 Low RBC 3.40 LAB L100.1300 12.0-15.0 g/dl Low HGB 9.4 LAB L100.1400 37-47 % Low HCT 29.8 LAB L100.1500 81-99 fL Normal MCV 87.6 LAB L100.1600 27.0-32.0 pg Normal MCH 27.6 LAB L100.1700 32-36 g/gl Low MCHC 31.5 LAB L100.1810 11.6-14.6 % High RDW CV 16.9 LAB L100.1820 35.1-43.9 fl High RDW SD 52.7 LAB L100.1900 150-450 K/mm3 Low PLT 139 LAB L100.2000 6.2-12.0 fl Normal MPV 9.3 LAB L100.2100 47-70 % Low NEUT% 4.5 LAB L100.2200 19-41 % High LY% 55.2 LAB L100.2300 0-10 % High MONO% 32.6 LAB L100.2400 0-5 % High EO% 5.4 LAB L100.2500 0-1 % High BASO% 1.8 LAB L100.2550 0.0-0.9 % Normal IM GRAN % 0.500 Result Comment: IG% - Immature Granulocytes (promyelocytes, myelocytes and metamyelocytes) > 1% indicates that a LEFT SHIFT is Present. LAB L100.2620 2.0-7.7 X10 3/uL Low Absolute Neut 0.1 LAB L100.2720 0.83-4.51 X10 3/ul Normal Absolute Lymph 1.22 LAB L100.4500 Normal SMEAR COMMENT COMMENT Result Comment: SLIDE SCANNED - NEUTROPENIA. Performed By: #### L100.0100, L101.9900 #### [facility] [address] [place], [address] ERYTHROCYTE SED RATE Collected: 02/12/2018 Status: F Source: [place] 6:40 AM [facility] REPOSITORY TYPE CODE TESTS RESULT OUT OF RANGE REFERENCE UNITS LAB L102.0000 0-30 mm/hr High SED RATE 91 Performed By: #### L100.0100, L101.9900 #### [facility] [address] [place], [address] BEDSIDE GLUCOSE Collected: 02/12/2018 Status: F Source: [place] 6:28 AM [facility] REPOSITORY TYPE CODE TESTS RESULT OUT OF REFERENCE UNITS RANGE LAB L501.080 70-110 mg/dL High BEDSIDE GLU 124 Result Comment: MANAGEMENT OF PATIENT CARE PER NURSING PROTOCOL Performed By: #### L501.080 #### [facility] Point of Care [address] [facility] [place] [place] [address] 12 LEAD ELECTROCARDIOGRAM Observed: 02/11/2018 Status: F Source: [place] 11:40 AM [facility] REPOSITORY [facility] Cardiovascular Services [address] [place] [address] 12 Lead EKG 02/08/18 1233 MR#: [id number] Acct: [id number] Name: KANDY LAUREN ANN Rep #: [id number] : 1960 57 From: Nathanael Peters MD Attending Dr: Mikhail SKINNER,Gerson Walter Status: ADM IN Ordering Dr: Gerson Elizondo MD Date: 02/08/18 Location: U Sex: F C Admitted: 01/21/18 Test Reason : ANXIETY Blood Pressure : / mmHG Vent. Rate : 066 BPM Atrial Rate : 066 BPM P-R Int : 154 ms QRS Dur : 096 ms QT Int : 422 ms P-R-T Axes : 026 035 046 degrees QTc Int : 442 ms Normal sinus rhythm Normal ECG When compared with ECG of 20-JAN-2018 04:45, Premature ventricular complexes are no longer Present Confirmed by NATHANAEL PETERS MD ([id number]), state editor BUTCH PATTERSON ([id number]) on 02/11/2018 11:40:17 AM Referred By: Gerson Elizondo Confirmed By:NATHANAEL PETERS MD 02/11/18 1140 Date Nathanael Peters MD CC: Pia Newton MD; Gersno Elizondo MD Signed BEDSIDE GLUCOSE Collected: 02/11/2018 Status: F Source: [place] 6:36 AM [facility] REPOSITORY TYPE CODE TESTS RESULT OUT OF REFERENCE UNITS RANGE LAB L501.080 70-110 mg/dL High BEDSIDE GLU 131 Result Comment: MANAGEMENT OF PATIENT CARE PER NURSING PROTOCOL Performed By: #### L501.080 #### [facility] Point of Care [address] [place] [address] VANCOMYCIN, TROUGH Collected: 02/09/2018 Status: F Source: ANA LEVEL 7:35 PM [facility] REPOSITORY Order Comment: Time Medication is to be Given? 1999 TYPE CODE TESTS RESULT OUT OF RANGE REFERENCE UNITS LAB L501.8820 5.0-15.0 ug/mL Normal VANCO, TROUGH 13.4 Result Comment: VANCOMYCIN STANDARED DRUG THERAPY TROUGH LEVEL: 5.0 - 15.0 mg/L VANCOMYCIN HIGH INTENSITY THERAPY TROUGH LEVEL: 15.0 - 20.0 mg/L High Intensity therapy recommended for serious life threatening infections include: - Meningitis -Endocarditis -Pneumonia (Ventilator/Healtcare Associated) -Sepsis PLEASE CONTACT PHARMACY SERVICES (#[id number]) FOR INTERPRETATION OF RESULTS. Performed By: #### L501.8820 #### [facility] [address] [place], [address] OPERATIVE REPORT Observed: 02/08/2018 Status: F Source: ANA 2:24 PM [facility] REPOSITORY [facility] Medical Records Department [address] [place] [address] Operative Report 02/05/18 1220 MR#: [id number] Acct: [id number] Name: KANDY LAUREN Rep #: [id number] : 1960 57 From: Candi [place] DPM PCP: Pia Newton MD [place] [facility] [facility] [place] Operation Date of Procedure: 02/05/18 Pre-Operative Diagnosis: L open ankle fracture, osteomyelitis Post-Operative Diagnosis: same Surgery/Procedure Performed:: Left soft tissue excisional debridement to bone, L exposed tibia bone biopsy, L exposed tibia bone debridement, L ankle application of Integra skin substitute Description of Surgical Findings:: see dictation pharmaceutical representative: Anisha Hooper pharmaceutical representative: April Delacruz Type of Anesthesia:: General Specimen's removed: L exposed tibia bone (path and cx) Drains: none Estimated Blood Loss (mL): minimal Description of Procedure: Indications: Patient is a 57 yo F with complex medical hx who presents today for surgical intervention as part of left lower extremity limb salvage. All risks, complications, and alternatives were discussed with the patient, and the patient signed an informed consent. No guarantees were given. Procedure: On 02/05/2018 Kandy Lauren was visually and verbally identified in the preoperative holding area. The consent form was again reviewed with the patient, as were all risks, complications, and alternatives and the patient wished to proceed with the proposed surgery. The left ankle was marked as the correct operative extremity. The patient was brought to the operating room and placed on the operating room table in the normal supine position. Anesthesia intubated the patient. A time out was performed and all present were in agreement. At this time attention was directed to the Left anterior ankle. It was noted to have increased granular tissue with decreased tendon and bone exposure. No maceration was present. No purulence or malodor noted. Utilizing a #15 blade and currettes all necrotic and nonviable soft tissue was excisionally debrided until healthy, bleeding tissue was visualized. Utilizing ronguers a bone biopsy of the exposed tibia was sent for pathology and cultures. The bone was then further debrided with a fresh curettes and ronguer. Bone was noted to be firm and bled well. Attention was then turned to the lateral ankle where previous sutures remained in place with the central incision open from the previously placed daniel drain and packing. Utlizing the central incision the soft tissue was debrided with minimal amounts of hematoma removed. 3L of normal sterile saline was then used via pulse lavage to flush both the lateral and anterior ankle wounds. Electrocautery was then used for any bleeders that were noted. The post excisional anterior ankle wound measured 9 cm x 4.5 cm with minimal bone exposed. At this time I felt the wound was ready for application of Integra bilayer skin substitute. This was applied and then secured with cristian. I used a fresh #15 blade to pie crust it and allow for any drainage. There was some remaining Integra so I scraped the collagen from it to pack into the most medial part of the wound which is the deepest and secured that medial edge with cristian. Adaptic was placed along with a bolster dressing as a NPWT application would be difficult with the wires placement of her external fixation. The wires and pins of the ex fix were again dressed with xeroform and DSD, the lateral incision was packed centrally with a short wick of DSD and adaptic over the sutures, DSD was then placed surrounding the LLE with Macario bandages over the ex fix. At the end of the case all needle, sponge and instrument counts were found to be correct. Pt tolerated the procedure and anesthesia well. She was transported to the PACU by a member of the anesthesia team and myself with AVSS and NV status of the LLE equal to pre-operative levels. We will await these most recent cx and pathology results and monitor the wound and Integra. Plan for return to the operating room pending results of today's case with plan for possible flap coverage, STSG, repeat Integra application, tibiotalar arthrodesis with external fixation adjustment. PT understands this continues to be a staged process. Continue IV abx per ID and cx/pathology. Grafts/Implants Used: Integra bilayer skin substitute - Complications none - Admit VTE Documentation VTE Present on Admission: No VTE Mechan Device Prophylaxis: SCD's, Knee High MARLYS Hose VTE Pharm Prophylaxis ordered?: Yes 02/08/18 1424 <Electronically signed by Candi [place] DPM> Date Candi [place] DPM CC: NORA [place]; Pia Newton MD Signed CBC W/DIFF, AUTOMATED Collected: 02/08/2018 Status: F Source: ANA 12:33 PM [facility] REPOSITORY TYPE CODE TESTS RESULT OUT OF RANGE REFERENCE UNITS LAB L100.1000 4.4-11.0 K/mm3 Normal WBC 6.7 LAB L100.1200 4.2-5.4 M/mm3 Low RBC 3.67 LAB L100.1300 12.0-15.0 g/dl Low HGB 10.1 LAB L100.1400 37-47 % Low HCT 32.4 LAB L100.1500 81-99 fL Normal MCV 88.3 LAB L100.1600 27.0-32.0 pg Normal MCH 27.5 LAB L100.1700 32-36 g/gl Low MCHC 31.2 LAB L100.1810 11.6-14.6 % High RDW CV 16.5 LAB L100.1820 35.1-43.9 fl High RDW SD 52.9 LAB L100.1900 150-450 K/mm3 Normal PLT 190 LAB L100.2000 6.2-12.0 fl Normal MPV 9.3 LAB L100.2100 47-70 % Normal NEUT% 47.2 LAB L100.2200 19-41 % Normal LY% 31.8 LAB L100.2300 0-10 % High MONO% 14.5 LAB L100.2400 0-5 % High EO% 5.2 LAB L100.2500 0-1 % Normal BASO% 0.6 LAB L100.2550 0.0-0.9 % Normal IM GRAN % 0.700 Result Comment: IG% - Immature Granulocytes (promyelocytes, myelocytes and metamyelocytes) > 1% indicates that a LEFT SHIFT is Present. LAB L100.2620 2.0-7.7 X10 3/uL Normal Absolute Neut 3.2 LAB L100.2720 0.83-4.51 X10 3/ul Normal Absolute Lymph 2.14 Performed By: #### L100.0100 #### [facility] [address] [place], [address] BASIC METABOLIC Collected: 02/08/2018 Status: F Source: ANA PROFILE (BMP) 12:33 PM [facility] REPOSITORY TYPE CODE TESTS RESULT OUT OF RANGE REFERENCE UNITS LAB L501.0100 74-106 mg/dL High GLU 163 Result Comment: Fasting Glucose result greater than or equal to 126 mg/dL suggests DIABETES MELLITUS per A.D.A. criteria. Please note revised GLUCOSE reference range effective 2017. LAB L501.1000 7-18 mg/dL High BUN 69 LAB L501.1100 0.55-1.02 mg/dL High CREAT,SERUM 1.37 Result Comment: The validity of the calculated GFR AND GFRAA in patients over 70 years has not been determined. Clinical correlation is essential. LAB L501.1110 >60 mL/min Low EST GFR 42 Result Comment: Non- GFR Calc LAB L501.1115 >60 mL/min Low EST GFR - AA 51 Result Comment: GFR Calc LAB L501.1255 ml/min Normal Estimated CRCL 41.39 LAB L501.1300 10-20 RATIO High BUN/CRE 50.4 LAB L501.2200 8.5-10 mg/dL Normal .1 CA 9.2 LAB L501.5300 136-14 mmol/L Normal 5 NA 137 LAB L501.5600 3.5-5. mmol/L Normal 1 K 4.8 LAB L501.5900 98-107 mmol/L Normal CL 104 LAB L501.6100 21.0-3 mmol/L Normal 2.0 CO2 27.0 LAB L501.6200 5-15 Normal GAP 6 Performed By: #### L500.2500 #### [facility] [address] [facility] [place], [address] BEDSIDE GLUCOSE Collected: 02/08/2018 Status: F Source: ANA 11:52 AM [facility] REPOSITORY TYPE CODE TESTS RESULT OUT OF REFERENCE UNITS RANGE LAB L501.080 70-110 mg/dL High BEDSIDE GLU 126 Result Comment: MANAGEMENT OF PATIENT CARE PER NURSING PROTOCOL Performed By: #### L501.080 #### [facility] Point of Care [address] [place] [address] VANCOMYCIN, TROUGH Collected: 02/06/2018 Status: F Source: ANA LEVEL 7:57 PM [facility] REPOSITORY Order Comment: Comments: Please draw 02/06 @ 1930 Time Medication is to be Given? 2000 TYPE CODE TESTS RESULT OUT OF RANGE REFERENCE UNITS LAB L501.8820 5.0-15.0 ug/mL Normal VANCO, TROUGH 13.0 Result Comment: VANCOMYCIN STANDARED DRUG THERAPY TROUGH LEVEL: 5.0 - 15.0 mg/L VANCOMYCIN HIGH INTENSITY THERAPY TROUGH LEVEL: 15.0 - 20.0 mg/L High Intensity therapy recommended for serious life threatening infections include: - Meningitis -Endocarditis -Pneumonia (Ventilator/Healtcare Associated) -Sepsis PLEASE CONTACT PHARMACY SERVICES (#[phone]) FOR INTERPRETATION OF RESULTS. Performed By: #### L501.8820 #### [facility] [address] [place], [address] BEDSIDE GLUCOSE Collected: 02/06/2018 Status: F Source: ANA 6:46 AM [facility] REPOSITORY TYPE CODE TESTS RESULT OUT OF REFERENCE UNITS RANGE LAB L501.080 70-110 mg/dL High BEDSIDE GLU 182 Result Comment: MANAGEMENT OF PATIENT CARE PER NURSING PROTOCOL Performed By: #### L501.080 #### [facility] Point of Care [address] [place] [address] URINALYSIS, COMPLETE Collected: 02/05/2018 Status: F Source: ANA 9:35 PM [facility] REPOSITORY Order Comment: Order Date: 02/05/18 How was Urine Obtained? CATHETER SPECIMEN TYPE CODE TESTS RESULT OUT OF RANGE REFERENCE UNITS LAB L400.3000 Yellow COLOR Normal Yellow LAB L400.3050 Clear Sl Normal CLARITY Cloudy LAB L400.3200 Normal mg/dl High 50 GLUCOSE, UR LAB L400.3300 Negative mg/dL Normal BILIRUBIN URINE Negative LAB L400.3400 Negative mg/dl High 5 KETONE UR LAB L400.3465 1.002-1.030 Normal SP.GR. DIPSTX 1.015 LAB L400.3550 5.0 - 8.0 pH UR Normal 6.0 LAB L400.3600 Negative mg/dl High PROT DIPSTX 500 LAB L400.3700 Normal mg/dl Normal UROBILI Normal LAB L400.3750 Negative Normal NITRITE UR Negative LAB L400.3780 Negative /ul High OCCULT BLOOD-UR 250 LAB L400.3800 Negative /ul High LEUK 25 ESTERASE LAB L400.4050 0-5 /hpf WBC Normal 0-5 SEEN LAB L400.4100 0-5 /hpf > Normal RBC-UA 100 SEEN LAB L400.4150 5-10 /hpf SQUAM Normal EPI 0-5 SEEN LAB L400.4300 None Seen /hpf Normal BACTERIA RARE LAB L400.4350 <or=2+ /hpf Normal MUCUS, URINE RARE Performed By: #### L400.0001 #### [facility] [address] [place], [address] Observed: 02/05/2018 Status: F Source: GANTT CULTURE, URINE 9:35 PM [facility] REPOSITORY Order Date: 02/05/18 Urine Culture Culture exhibits no growth. Performed By: #### M100.0650 #### [facility] [place], [address] BEDSIDE GLUCOSE Collected: 02/05/2018 Status: F Source: GANTT 12:35 PM [facility] REPOSITORY TYPE CODE TESTS RESULT OUT OF REFERENCE UNITS RANGE LAB L501.080 70-110 mg/dL High BEDSIDE GLU 132 Result Comment: MANAGEMENT OF PATIENT CARE PER NURSING PROTOCOL Performed By: #### L501.080 #### [facility] Point of Care [address] [place] [address] DISCHARGE INSTRUCTION Observed: 02/05/2018 Status: F Source: GANTT 12:17 PM [facility] REPOSITORY [facility] Medical Records Department [address] [place] [address] Instructions for Home/Discharge Instructions 02/05/18 1212 MR#: [id number] Acct: [id number] Name: KANDY LAUREN Rep #: [id number] : 1960 57 From: Candi [place] DPConnie PCP: Pia Newton MD [place] [facility] [place] Activity: May Not Drive, May not drive while taking narcotic pain medications., May Not Shower Weight Bearing Status: No weight bearing - NWB LLE Keep extremity elevated above heart level: Operative Extremity Call your doctor if your incision/area has: Sudden Increased Bleeding, Increased Pain/ Swelling, Foul Smelling Discharge Call your doctor if you observe: Fever of 101 or Higher, Coldness, Increased Pain, Shortness of breath, Chest pain, Calf discomfort Cleanse incision/area with: Keep Dressing Clean AND Dry Catheter: Gardner to leg bag Additional Dressing/Incision Instructions:: Please keep LLE dressing clean/dry/intact. May reinforce with DSD x [address] [place] Additional Instructions: Continue IV abx per ID, new medial tibial bone cx and path taken today. Return to OR in 3 weeks or sooner if Integra fails and/or SOI. Ok to resume lovenox tomorrow am Allergies/Adverse Reactions: Allergies aspirin Allergy (Verified 02/05/18 09:07) Hives latex Allergy (Verified 02/05/18 09:07) Hives Penicillins Allergy (Verified 02/05/18 09:07) Hives naproxen [From Aleve] Adverse Reaction (Severe, Verified 02/05/18 09:07) Kidney disease Stage 3 Medications to take at Discharge Allopurinol 300 mg PO DAILY 12/03/16 Amitriptyline HCl 75 mg PO QHS 12/03/16 Atenolol 50 mg PO DAILY 12/03/16 cholecalciferol (vitamin D3) 2,000 unit capsule 2,000 unit PO DAILY 05/27/17 diltiazem CD 180 mg capsule,extended release 24 hr 180 mg PO DAILY 05/27/17 hydroxychloroquine 200 mg tablet 200 mg PO QDAY 05/27/17 omega-3 fatty acids 1,000 mg capsule 1,000 mg PO QDAY 05/27/17 sitagliptin 100 mg tablet 100 mg PO QDAY 05/27/17 gabapentin 300 mg capsule 300 mg PO TID cap 08/19/17 ipratropium 20 mcg-albuterol 100 mcg/actuation mist for inhalation 1 inh INHALATION Q6H PRN #4 g 08/22/17 Atorvastatin Calcium [Lipitor] 40 mg PO QDAY 01/13/18 Cyclobenzaprine HCl 10 mg PO TID PRN PRN 01/13/18 Multivit-Min/Iron/Folic/Lutein [Centrum Silver Women Tablet] 1 tab PO DAILY 01/13/18 Acetaminophen [Tylenol Tablet] 650 mg PO Q6H PRN PRN tablet 01/21/18 Cefepime HCl [Maxipime] 2 gm IV Q12 01/21/18 Insulin Lispro [Humalog KwikPen] See Protocol SQ ACHS 01/21/18 Magnesium Hydroxide [Milk Of Magnesia] 30 ml PO DAILY PRN PRN udc 01/21/18 Mometasone Furoate [Nasonex] 2 spray INTRANASAL QDAY 01/21/18 Vancomycin IV 1,500 mg IV Q24H 01/21/18 Primary Care Physician: Pia Newton MD [Primary Care Provider] - Test Results: Test results from this visit will be discussed in further detail at your follow-up appointment, if applicable. 02/05/18 1217 <Electronically signed by Candi [place] DPM> Date Candi [place] DPM CC: Pia Newton MD Observed: 02/05/2018 Status: F Source: ANA CULTURE, DEEP WOUND 12:12 PM [facility] REPOSITORY Order Date: 10/30/16 List Antibiotics Last 48 Hours? YES Comments: COLLECTED IN OR #1 LEFT TIBIAL BONE Gram Stain Gram Stain No White Blood Cells No organisms seen Wound Culture RESULTS FAXED TO OFFICE 02/08/18 2348 Emily Winston. Copy of report sent to Infection Control Printer [id number] 02/08/18 7344 ROBIN. ORGANISM 1: Meth. resistant Staph. aureus Amount Growth Very Rare Meth. resistant Staph. aureus: REACTION Benzylpenicillin NF >=0.5 R Cefoxitin *NF + Clindamycin $$ >=8 R Inducable Clindamycin Resistan - Erythromycin $ >=8 R Gentamicin $ <=0.5 S Levofloxacin $ >=8 R Linezolid $$$$ 2 S Oxacillin NF >=4 R Tigecycline $$$$ 0.25 S Rifampin $$ <=0.5 S Tetracycline NF 2 S Trimethoprim/Sulfametho $ <=10 S Vancomycin $ 1 S (NF) indicates non-formulary drug at [facility]. Approval by Infectious Disease Specialist required before non-formulary drugs may be ordered and/or dispensed. * CLSI guidelines does not recommend testing of cephalosporins. This interpretation is deduced from Beta-lactam/penicillin results. Cult, Anaerobic No growth in 5 days. Performed By: #### M100.1500 #### [facility] [address] [place], [address] BEDSIDE GLUCOSE Collected: 02/05/2018 Status: F Source: GANTT 9:17 AM [facility] REPOSITORY TYPE CODE TESTS RESULT OUT OF RANGE REFERENCE UNITS LAB L501.080 70-110 mg/dL Normal BEDSIDE GLU 97 Result Comment: MANAGEMENT OF PATIENT CARE PER NURSING PROTOCOL Performed By: #### L501.080 #### [facility] Point of Care [address] [facility] [place] [address] CBC W/DIFF, AUTOMATED Collected: 02/05/2018 Status: F Source: GANTT 5:05 AM [facility] REPOSITORY Order Comment: SPECIMEN OBTAINED FROM LINE DRAW TYPE CODE TESTS RESULT OUT OF RANGE REFERENCE UNITS LAB L100.1000 4.4-11.0 K/mm3 Normal WBC 7.6 LAB L100.1200 4.2-5.4 M/mm3 Low RBC 3.58 LAB L100.1300 12.0-15.0 g/dl Low HGB 9.8 LAB L100.1400 37-47 % Low HCT 31.1 LAB L100.1500 81-99 fL Normal MCV 86.9 LAB L100.1600 27.0-32.0 pg Normal MCH 27.4 LAB L100.1700 32-36 g/gl Low MCHC 31.5 LAB L100.1810 11.6-14.6 % High RDW CV 15.9 LAB L100.1820 35.1-43.9 fl High RDW SD 50.5 LAB L100.1900 150-450 K/mm3 Normal PLT 202 LAB L100.2000 6.2-12.0 fl Normal MPV 9.1 LAB L100.2100 47-70 % Low NEUT% 46.7 LAB L100.2200 19-41 % Normal LY% 34.8 LAB L100.2300 0-10 % High MONO% 11.9 LAB L100.2400 0-5 % High EO% 5.4 LAB L100.2500 0-1 % Normal BASO% 0.5 LAB L100.2550 0.0-0.9 % Normal IM GRAN % 0.700 Result Comment: IG% - Immature Granulocytes (promyelocytes, myelocytes and metamyelocytes) > 1% indicates that a LEFT SHIFT is Present. LAB L100.2620 2.0-7.7 X10 3/uL Normal Absolute Neut 3.5 LAB L100.2720 0.83-4.51 X10 3/ul Normal Absolute Lymph 2.63 Performed By: #### L100.0100, L101.9900 #### [facility] [address] [facility] [place], [place], [address] ERYTHROCYTE SED RATE Collected: 02/05/2018 Status: F Source: GANTT 5:05 AM [facility] REPOSITORY Order Comment: SPECIMEN OBTAINED FROM LINE DRAW TYPE CODE TESTS RESULT OUT OF RANGE REFERENCE UNITS LAB L102.0000 0-30 mm/hr High SED RATE 71 Performed By: #### L100.0100, L101.9900 #### [facility] [address] [facility] [place], [place], [address] BASIC METABOLIC Collected: 02/05/2018 Status: F Source: GANTT PROFILE (BMP) 5:05 AM [facility] REPOSITORY Order Comment: SPECIMEN OBTAINED FROM LINE DRAW TYPE CODE TESTS RESULT OUT OF RANGE REFERENCE UNITS LAB L501.0100 74-106 mg/dL High GLU 108 Result Comment: Fasting Glucose result from 100 to 125 mg/dL suggests IMPAIRED HOMEOSTASIS per A.D.A. criteria. Please note revised GLUCOSE reference range effective 2017. LAB L501.1000 7-18 mg/dL High BUN 70 LAB L501.1100 0.55-1.02 mg/dL High CREAT,SERUM 1.63 Result Comment: The validity of the calculated GFR AND GFRAA in patients over 70 years has not been determined. Clinical correlation is essential. LAB L501.1110 >60 mL/min Low EST GFR 34 Result Comment: Non- GFR Calc LAB L501.1115 >60 mL/min Low EST GFR - AA 41 Result Comment: GFR Calc LAB L501.1255 ml/min Normal Estimated CRCL 34.79 LAB L501.1300 10-20 RATIO High BUN/CRE 42.9 LAB L501.2200 8.5-10 mg/dL Normal .1 CA 9.2 LAB L501.5300 136-14 mmol/L Normal 5 NA 139 LAB L501.5600 3.5-5. mmol/L Normal 1 K 4.3 LAB L501.5900 98-107 mmol/L Normal CL 105 LAB L501.6100 21.0-3 mmol/L Normal 2.0 CO2 27.0 LAB L501.6200 5-15 Normal GAP 7 Performed By: #### L500.2500 #### [facility] [address] [place], [address] BONE (FX/NONFRACTURE) Observed: 02/05/2018 Status: F Source: GANTT 12:00 AM [facility] REPOSITORY Patient: KANDY LAUREN : 1960 (57/F) Acct Num: [id number] Phys: Candi [place] DPM Unit Num: [id number] [place] [facility] Specimen: [id number] Received: 02/05/18 - 1502 Spec Type: Bone TISSUES 1 TISSUES: Tibia, NOS GROSS DESCRIPTION Received in fixative is one container labeled with the patient's name and designated left tibial bone. The specimen consists of a piece of bone measuring 0.5 x 0.5 x 0.3 cm. The entire specimen is submitted in one cassette after decalcification. / Elissa 02/05/18 TC: 2 CPT: 81575, 47747 HEADER OPERATION: Soft tissue bone debridement PRE-OP DIAGNOSIS: Left ankle open fracture, osteomyelitis TISSUE SUBMITTED: Left tibial bone MICROSCOPIC DESCRIPTION Slides are reviewed. MICROSCOPIC DIAGNOSIS Left tibial bone: Piece of bone with fibrinous exudation and acute osteomyelitis. Angel 02/11/18 Signed Sid Jain 02/11/18 <signature on file> Performed By: #### PBON #### [facility] [address] [place], [address] OPERATIVE REPORT Observed: 02/04/2018 Status: F Source: GANTT 7:04 PM [facility] REPOSITORY [facility] Medical Records Department [address] [place] [address] Operative Report 02/04/18 1902 MR#: [id number] Acct: [id number] Name: KANDY LAUREN Rep #: [id number] : 1960 57 From: Candi [place] DPM PCP: Pia Newton MD Status: [place] [facility] [place] [facility] of Operation Date of Procedure: 01/29/18 Pre-Operative Diagnosis: left ankle open fracture; painful/broken hardware; acute osteomyelitis left distal fibula Post-Operative Diagnosis: same Surgery/Procedure Performed:: left ankle hardware removal, debridement of soft tissue to bone, debridement fibula bone, bone biopsy fibula, debridement and bone biopsy of medial tibia, application of external fixation Description of Surgical Findings:: see dictation pharmaceutical representative: Ashutosh Gutierrez Type of Anesthesia:: Spinal General Anesthesia - spinal converted to LMA Specimen's removed: L distal fibula (path and cx); L fibula clearing fragment (path and cx); L exposed medial tibia (path and cx); hardware explanted in total Drains: daniel left lateral ankle Estimated Blood Loss (mL): 300 mL Description of Procedure: Indications: Pt is a 57 yo F left limb salvage candidate 2/2 an open ankle fracture that subsequently became infected. She is s/p bone biopsies of L open ankle fracture on 01/20/2018. She presents today for the next step in her limb salvage: explant of hardware, soft tissue and bone debridement and biopsies, application of multiplanar external fixation device. All risks, complications, and alternatives were discussed with the patient, and the patient signed an informed consent. No guarantees were given. Procedure: On January 29, 2018, kandy lauren was visually and verbally identified in the preoperative holding area. The consent form was again reviewed with the patient, as were all risks, complications, and alternatives and the patient wished to proceed with the proposed surgery. The left lower leg was marked as the correct operative extremity. Anesthesia elected to proceed with spinal anesthesia given her COPD hx. This was done successfully The patient was brought to the operating room and placed on the operating room table in the normal SUPINE position. A time out was performed and all present were in agreement. a pneumatic thigh tourniquet was then placed. At this time the left lower extremity was prepped and draped in the usual sterile fashion. At this time attention was directed to the left lateral ankle. Using a #15 blade, a longitudinal incision was made along the previous surgical scar. The incision was bluntly carried deep through the subcutaneous tissues with careful attention paid to all bleeders, which were clamped and tied or bovied as necessary. All vital neurovascular structures were retracted. The loosened, broken and bent hardware was visualized. Given the blood in the field I decided at this time to elevate her left lower extremity and inflate the tourniquet to 300mmHg. We then returned to the left lateral ankle and the screws and plate were removed in total without incident using intra-operative fluoroscopy. The distal fibula fracture fragments were then excised using a #15 blade and sent for pathology and culture. It was noted to be soft. The soft tissues were debrided with a #15 blade and currette. The distal fibular fragment was then debrided using ronguers and noted to still be soft. All soft bone was removed and using a combination of osteotomes and ronguers bone biopsies of the distal residual fibula were taken. This was sent for separate pathology and culture as the distal clearing fragment of the fibula. Attention was then directed to the medial ankle wound. Using a fresh #15 blade and currettes the soft tissue was excisionally debrided of all non-viable and necrotic and fibrotic tissue until bleeding granular tissue was noted. No purulence was noted. Using a fresh osteotome and ronguers the exposed distal medial tibia was debrided and sent for pathology and culture. Bleeding bone was noted and the bone was not noted to be soft. At this time 3L of NSS was used via pulse lavage to irrigate the medial and lateral wounds. The medial ankle wound measured 9 cm x 6.5 cm deep to bone/ankle joint after sharp, excisional debridement. At this time we began application of the Orthofix multiplanar external fixation. Intra operative fluoroscopy was utilized throughout the application which took greater than one hour of the total case time. Two tibial half pins were placed for the most proximal ring which measured 160mm. These were bicortical and confirmed on fluoroscopy. The next circular ring was placed proximal to the ankle joint with 2 opposing olive wires under intra operative fluoroscopy. care was taken to place the lateral to medial olive wire without placing it in the residual fibula as we are awaiting distal fibula clearing fragment results, a 5/8th ring was placed at the level of talus with two opposing olives wires for stability and intra operative fluoroscopy was used to guide this placement as well as direct visualized of the lateral talus, a foot plate was then placed with two opposing olive wires in the calcaneus and two opposing olive wires in the forefoot. All wires in the foot plate were placed with intra operative fluoroscopy guidance. Patient's previous pin/wire placement from her initial external fixation device were noted on intra operative fluoroscopy at both the tibia and in the metatarsals and care was taken to avoid previous sites. All wires were tensioned per grinder set up operator guidelines. The medial and lateral wounds were then again flushed with NSS. The lateral incision was then closed with 2-0 prolene distally and proximally leaving the central incision open and a 1/4 inch daniel drain was placed. The medial wound was dressed with adaptic and DSD. The pin and wires sites were each dressed with xeroform and DSD. An macario bandage was then applied to the LLE. Total tourniquet time was 120minutes. Immediate capillary refill was noted to all digits upon deflation of the tourniquet. The patient tolerated the procedure and anesthesia well. Of note the patient was converted to an LMA as the spinal anesthesia wore off during the procedure. The patient was then transported to the postanesthesia care unit by a member of the anesthesia team and myself with all vital signs stable and neurovascular status of the left lower extremity equal to pre-operative levels. A intra operative Hemoglobin was obtained as the patient was 7.7 prior to surgery and subsequently transfused 1 upRBCs. The intraoperative hemoglobin result was >8 so no further transfusion was done. It will be closely monitored by the medical team in the TCU. PT will likely return to the operating room in one week for further washout and debridement with possible application of skin substitute. Until then, pt will remain in the TCU NWB LLE at all times. At the end of the case all sponge, needle and instrument counts were found to be correct. Intraoperative fluoroscopy was utilized for the majority of the operating room time, > 1 hour. It was essential to my decision making for hardware removal and external fixation application. Grafts/Implants Used: Orthofix External Fixation, daniel drain - Complications none - Admit VTE Documentation VTE Present on Admission: No VTE Mechan Device Prophylaxis: SCD's, Knee High MARLYS Hose VTE Pharm Prophylaxis ordered?: Yes 02/04/181903 <Electronically signed by Candi [place] DPM> Date Candi [place] DPM CC: NORA [place]; Pia Newton MD Signed VANCOMYCIN, RANDOM Collected: 02/04/2018 Status: F Source: ANA LEVEL 4:30 PM [facility] REPOSITORY TYPE CODE TESTS RESULT OUT OF RANGE REFERENCE UNITS LAB L501.8850 0.0-15.0 ug/mL Normal VANCO, RANDOM 13.7 Result Comment: VANCOMYCIN STANDARD DRUG THERAPY: CRITICAL VALUE IS > 15.0 mg/L VANCOMYCIN HIGH INTENSITY THERAPY: CRITICAL VALUE IS > 20.0 mg/L PLEASE CONTACT PHARMACY SERVICES (#[id number]) FOR INTERPRETATION OF RESULTS. THIS RESULT DOES NOT REPRESENT A PEAK OR TROUGH LEVEL FOR THIS DRUG. Performed By: #### L501.8850 #### [facility] [address] [place], [address] HEMOGLOBIN Collected: 02/04/2018 Status: F Source: ANA 4:32 AM [facility] REPOSITORY TYPE CODE TESTS RESULT OUT OF RANGE REFERENCE UNITS LAB L100.1300 12.0-15.0 g/dl Low HGB 9.6 Performed By: #### L100.1300 #### [facility] [address] [place], [address] VANCOMYCIN, RANDOM Collected: 02/02/2018 Status: F [facility] REPOSITORY TYPE CODE TESTS RESULT OUT OF REFERENCE UNITS RANGE LAB L501.8850 0.0-15.0 ug/mL High VANCO, RANDOM 15.9 Result Comment: VANCOMYCIN STANDARD DRUG THERAPY: CRITICAL VALUE IS > 15.0 mg/L VANCOMYCIN HIGH INTENSITY THERAPY: CRITICAL VALUE IS > 20.0 mg/L PLEASE CONTACT PHARMACY SERVICES (#[id number]) FOR INTERPRETATION OF RESULTS. THIS RESULT DOES NOT REPRESENT A PEAK OR TROUGH LEVEL FOR THIS DRUG. Performed By: #### L501.8850 #### [facility] [address] [place], [address] TYPE AND SCREEN Collected: 02/02/2018 Status: P Source: GANTT 7:04 AM [facility] REPOSITORY Order Comment: CMV NEG? N Number of units to transfuse: 2 Comments: Left Extrenal Fixator Is there a >20% drop in pt's BP? N Is the pt's CVP (central venous pressure) <3 cm/H2O? N Is the EBL >/= 1000ml in adults or >/= 12ml/kg in children? Y Is pt's HR > 100 bpm? N Reason for Ordering Blood: Acute Are the blood/blood products to be transfused? Y Is the patient having/had surgery? Y Give When? When Ready Irradiated? N Leukodepleted? Y Surgery Date: 01/29/18 Type of Surgery: OTHER TYPE CODE TESTS RESULT OUT OF RANGE REFERENCE UNITS LAB B10.0800 O Normal BLOOD TYPE GEL NEGATIVE LAB B100.4000 Normal Antibody NEGATIVE Screen Performed By: #### B101.7450 #### [facility] [address] [place], [address] TYPE AND SCREEN Collected: 02/02/2018 Status: F Source: GANTT 7:04 AM [facility] REPOSITORY Order Comment: CMV NEG? N Number of units to transfuse: 2 Comments: Left Extrenal Fixator Is there a >20% drop in pt's BP? N Is the pt's CVP (central venous pressure) <3 cm/H2O? N Is the EBL >/= 1000ml in adults or >/= 12ml/kg in children? Y Is pt's HR > 100 bpm? N Reason for Ordering Blood: Acute Are the blood/blood products to be transfused? Y Is the patient having/had surgery? Y Give When? When Ready Irradiated? N Leukodepleted? Y Surgery Date: 01/29/18 Type of Surgery: OTHER TYPE CODE TESTS RESULT OUT OF RANGE REFERENCE UNITS LAB B10.0800 O Normal BLOOD TYPE GEL NEGATIVE LAB B100.4000 Normal Antibody NEGATIVE Screen Performed By: #### B101.7450 #### [facility] [address] [place], [address] Collected: 02/02/2018 Status: F Source: GANTT 7:04 AM [facility] REPOSITORY TYPE CODE TESTS RESULT OUT OF REFERENCE UNITS RANGE LAB U100.0000 [id number] TRANSFUSED PRODUCT: T AND S with Crossmatch, Red Cells COUNT: 2 Performed By: #### U100.0000 #### [facility] - refer to report for specific site CBC W/DIFF, AUTOMATED Collected: 02/02/2018 Status: F Source: GANTT 5:30 AM [facility] REPOSITORY Order Comment: SPECIMEN OBTAINED FROM LINE DRAW TYPE CODE TESTS RESULT OUT OF RANGE REFERENCE UNITS LAB L100.1000 4.4-11.0 K/mm3 Normal WBC 7.4 LAB L100.1200 4.2-5.4 M/mm3 Low RBC 2.63 LAB L100.1300 12.0-15.0 g/dl Low HGB 7.2 LAB L100.1400 37-47 % Low HCT 23.3 LAB L100.1500 81-99 fL Normal MCV 88.6 LAB L100.1600 27.0-32.0 pg Normal MCH 27.4 LAB L100.1700 32-36 g/gl Low MCHC 30.9 LAB L100.1810 11.6-14.6 % High RDW CV 15.9 LAB L100.1820 35.1-43.9 fl High RDW SD 48.8 LAB L100.1900 150-450 K/mm3 Normal PLT 255 LAB L100.2000 6.2-12.0 fl Normal MPV 9.4 LAB L100.2100 47-70 % Normal NEUT% 50.0 LAB L100.2200 19-41 % Normal LY% 33.4 LAB L100.2300 0-10 % High MONO% 11.3 LAB L100.2400 0-5 % Normal EO% 3.4 LAB L100.2500 0-1 % Normal BASO% 0.8 LAB L100.2550 0.0-0.9 % High IM GRAN % 1.100 Result Comment: IG% - Immature Granulocytes (promyelocytes, myelocytes and metamyelocytes) > 1% indicates that a LEFT SHIFT is Present. LAB L100.2620 2.0-7.7 X10 3/uL Normal Absolute Neut 3.7 LAB L100.2720 0.83-4.51 X10 3/ul Normal Absolute Lymph 2.46 Performed By: #### L100.0100 #### [facility] [address] [facility] [place], [address] OPERATIVE REPORT Observed: 02/01/2018 Status: F Source: GANTT 7:33 PM [facility] REPOSITORY [facility] Medical Records Department [address] [place] [address] Operative Report 02/01/18 1855 MR#: [id number] Acct: [id number] Name: KNADY LAUREN ANN Rep #: [id number] : 1960 57 From: Candi [place] DPM PCP: Pia Newton MD Status: ADM IN Location: [place] [address] Report of Operation Date of Procedure: 01/29/18 Pre-Operative Diagnosis: Left ankle open fracture; painful/broken hardware; acute osteomyelitis left distal fibula Post-Operative Diagnosis: same Surgery/Procedure Performed:: Left ankle hardware removal, debridement of soft tissue to bone, debridement fibula bone, bone biopsy fibula, debridement and bone biopsy of medial tibia, application of external fixation Description of Surgical Findings:: see dictation pharmaceutical representative: Ashutosh Gutierrez Type of Anesthesia:: Spinal General Anesthesia - Spinal converted to LMA Specimen's removed: L distal fibula (path and cx); L fibula clearing fragment (path and cx); L exposed medial tibia (path and cx); hardware explanted in total Drains: daniel L lateral ankle Estimated Blood Loss (mL): 300mL Description of Procedure: Indications: Pt is a 57 yo F left limb salvage candidate 2/2 an open ankle fracture that subsequently became infected. She is s/p bone biopsies of L open ankle fracture on 01/20/2018. She presents today for the next step in her limb salvage: explant of hardware, soft tissue and bone debridement and biopsies, application of multiplanar external fixation device. All risks, complications, and alternatives were discussed with the patient, and the patient signed an informed consent. No guarantees were given. Procedure: On January 29, 2018, kandy lauren was visually and verbally identified in the preoperative holding area. The consent form was again reviewed with the patient, as were all risks, complications, and alternatives and the patient wished to proceed with the proposed surgery. The left lower leg was marked as the correct operative extremity. Anesthesia elected to proceed with spinal anesthesia given her COPD hx. This was done successfully The patient was brought to the operating room and placed on the operating room table in the normal SUPINE position. A time out was performed and all present were in agreement. a pneumatic thigh tourniquet was then placed. At this time the left lower extremity was prepped and draped in the usual sterile fashion. At this time attention was directed to the left lateral ankle. Using a #15 blade, a longitudinal incision was made along the previous surgical scar. The incision was bluntly carried deep through the subcutaneous tissues with careful attention paid to all bleeders, which were clamped and tied or bovied as necessary. All vital neurovascular structures were retracted. The loosened, broken and bent hardware was visualized. Given the blood in the field I decided at this time to elevate her left lower extremity and inflate the tourniquet to 300mmHg. We then returned to the left lateral ankle and the screws and plate were removed in total without incident using intra-operative fluoroscopy. The distal fibula fracture fragments were then excised using a #15 blade and sent for pathology and culture. It was noted to be soft. The soft tissues were debrided with a #15 blade and currette. The distal fibular fragment was then debrided using ronguers and noted to still be soft. All soft bone was removed and using a combination of osteotomes and ronguers bone biopsies of the distal residual fibula were taken. This was sent for separate pathology and culture as the distal clearing fragment of the fibula. Attention was then directed to the medial ankle wound. Using a fresh #15 blade and currettes the soft tissue was excisionally debrided of all non-viable and necrotic and fibrotic tissue until bleeding granular tissue was noted. No purulence was noted. Using a fresh osteotome and ronguers the exposed distal medial tibia was debrided and sent for pathology and culture. Bleeding bone was noted and the bone was not noted to be soft. At this time 3L of NSS was used via pulse lavage to irrigate the medial and lateral wounds. The medial ankle wound measured 9 cm x 6.5 cm deep to bone/ankle joint after sharp, excisional debridement. At this time we began application of the Orthofix multiplanar external fixation. Intra operative fluoroscopy was utilized throughout the application which took greater than one hour of the total case time. Two tibial half pins were placed for the most proximal ring which measured 160mm. These were bicortical and confirmed on fluoroscopy. The next circular ring was placed proximal to the ankle joint with 2 opposing olive wires under intra operative fluoroscopy. care was taken to place the lateral to medial olive wire without placing it in the residual fibula as we are awaiting distal fibula clearing fragment results, a 5/8th ring was placed at the level of talus with two opposing olives wires for stability and intra operative fluoroscopy was used to guide this placement as well as direct visualized of the lateral talus, a foot plate was then placed with two opposing olive wires in the calcaneus and two opposing olive wires in the forefoot. All wires in the foot plate were placed with intra operative fluoroscopy guidance. Patient's previous pin/wire placement from her initial external fixation device were noted on intra operative fluoroscopy at both the tibia and in the metatarsals and care was taken to avoid previous sites. All wires were tensioned per grinder set up operator guidelines. The medial and lateral wounds were then again flushed with NSS. The lateral incision was then closed with 2-0 prolene distally and proximally leaving the central incision open and a 1/4 inch daniel drain was placed. The medial wound was dressed with adaptic and DSD. The pin and wires sites were each dressed with xeroform and DSD. An macario bandage was then applied to the LLE. Total tourniquet time was 120minutes. Immediate capillary refill was noted to all digits upon deflation of the tourniquet. The patient tolerated the procedure and anesthesia well. Of note the patient was converted to an LMA as the spinal anesthesia wore off during the procedure. The patient was then transported to the postanesthesia care unit by a member of the anesthesia team and myself with all vital signs stable and neurovascular status of the left lower extremity equal to pre-operative levels. A intra operative Hemoglobin was obtained as the patient was 7.7 prior to surgery and subsequently transfused 1 upRBCs. The intraoperative hemoglobin result was >8 so no further transfusion was done. It will be closely monitored by the medical team in the TCU. PT will likely return to the operating room in one week for further washout and debridement with possible application of skin substitute. Until then, pt will remain in the TCU NWB LLE at all times. At the end of the case all sponge, needle and instrument counts were found to be correct. Intraoperative fluoroscopy was utilized for the majority of the operating room time, > 1 hour. It was essential to my decision making for hardware removal and external fixation application. Grafts/Implants Used: Orthofix External fixation, daniel drain - Complications none - Admit VTE Documentation VTE Present on Admission: No VTE Mechan Device Prophylaxis: SCD's, Knee High MARLYS Hose VTE Pharm Prophylaxis ordered?: Yes 02/01/181932 <Electronically signed by Candi [place] DPM> Date Candi [place] DPM CC: NORA [place]; Pia Newton MD; Nellie Quezada DPM; Ying Bejarano MD; Gerson Elizondo MD Signed HH, HEMOGLOBIN AND Collected: 02/01/2018 Status: F Source: GANTT HEMATOCRIT 4:52 AM [facility] REPOSITORY Order Comment: SPECIMEN OBTAINED FROM LINE DRAW TYPE CODE TESTS RESULT OUT OF RANGE REFERENCE UNITS LAB L100.1300 12.0-15.0 g/dl Low HGB 7.3 LAB L100.1400 37-47 % Low HCT 23.2 Performed By: #### L100.0600 #### [facility] [address] [place], [address] BASIC METABOLIC Collected: 01/31/2018 Status: F Source: ANA PROFILE (BMP) 8:00 AM [facility] REPOSITORY Order Comment: Comments: NEED SCR FOR VANC DOSING TYPE CODE TESTS RESULT OUT OF RANGE REFERENCE UNITS LAB L501.0100 74-106 mg/dL Normal GLU 98 Result Comment: Please note revised GLUCOSE reference range effective 2017. LAB L501.1000 7-18 mg/dL High BUN 67 LAB L501.1100 0.55-1.02 mg/dL High CREAT,SERUM 1.69 Result Comment: The validity of the calculated GFR AND GFRAA in patients over 70 years has not been determined. Clinical correlation is essential. LAB L501.1110 >60 mL/min Low EST GFR 33 Result Comment: Non- GFR Calc LAB L501.1115 >60 mL/min Low EST GFR - AA 40 Result Comment: GFR Calc LAB L501.1255 ml/min Normal Estimated CRCL 33.55 LAB L501.1300 10-20 RATIO High BUN/CRE 39.6 LAB L501.2200 8.5-10 mg/dL Low .1 CA 8.4 LAB L501.5300 136-14 mmol/L Normal 5 NA 140 LAB L501.5600 3.5-5. mmol/L Normal 1 K 4.3 LAB L501.5900 98-107 mmol/L High CL 109 LAB L501.6100 21.0-3 mmol/L Normal 2.0 CO2 23.0 LAB L501.6200 5-15 Normal GAP 8 Performed By: #### L500.2500 #### [facility] [address] [place], [place], [address] VANCOMYCIN, RANDOM Collected: 01/31/2018 Status: F Source: ANA LEVEL 8:00 AM [facility] REPOSITORY Order Comment: Comments: DRAW RANDOM LEVEL TYPE CODE TESTS RESULT OUT OF REFERENCE UNITS RANGE LAB L501.8850 0.0-15.0 ug/mL High VANCO, RANDOM 15.1 Result Comment: VANCOMYCIN STANDARD DRUG THERAPY: CRITICAL VALUE IS > 15.0 mg/L VANCOMYCIN HIGH INTENSITY THERAPY: CRITICAL VALUE IS > 20.0 mg/L PLEASE CONTACT PHARMACY SERVICES (#0197) FOR INTERPRETATION OF RESULTS. THIS RESULT DOES NOT REPRESENT A PEAK OR TROUGH LEVEL FOR THIS DRUG. Performed By: #### L501.8850 #### [facility] [address] [place], [address] HH, HEMOGLOBIN AND Collected: 01/30/2018 Status: F Source: ANA HEMATOCRIT 4:40 AM [facility] REPOSITORY Order Comment: Comments: please call Dr. [place] if < 8. TYPE CODE TESTS RESULT OUT OF RANGE REFERENCE UNITS LAB L100.1300 12.0-15.0 g/dl Low HGB 7.9 LAB L100.1400 37-47 % Low HCT 25.6 Performed By: #### L100.0600 #### [facility] [address] [place], [address] DISCHARGE INSTRUCTION Observed: 01/29/2018 Status: F Source: ANA 4:42 PM [facility] REPOSITORY [facility] Medical Records Department [address] [facility] [address] Instructions for Home/Discharge Instructions 01/29/18 1636 MR#: [id number] Acct: [id number] Name: KANDY LAUREN ANN Rep #: [id number] : 1960 57 From: Candi [place] DPM PCP: Pia Newton MD [place] [facility] [place] Activity: May Not Drive, May Not Shower, Use Walker, Use Crutches Weight Bearing Status: No weight bearing - strict NWB LLE Keep extremity elevated above heart level: Operative Extremity Call your doctor if your incision/area has: Sudden Increased Bleeding, Increased Pain/ Swelling, Foul Smelling Discharge Call your doctor if you observe: Fever of 101 or Higher, Numbness or Tingling, Inability to urinate, Shortness of breath Cleanse incision/area with: Keep Dressing Clean AND Dry Catheter: Gardner to leg bag - Remove in AM per RN protocol Additional Dressing/Incision Instructions:: Keep dressing clean and dry. If there is strikethrough you may reinforce with DSD. The proximal calf and the foot are wrapped separately to aid in dressing changes to the ankle. Daniel drain to the lateral ankle incision, strikethrough is possible. Please call Dr. [place] if reinforcement x 1 fails. Xeroform is applied to the pinsites, adaptic to medial ankle wound and lateral ankle incision Allergies/Adverse Reactions: Allergies aspirin Allergy (Verified 01/28/18 09:07) Hives latex Allergy (Verified 01/28/18 09:07) Hives Penicillins Allergy (Verified 01/28/18 09:07) Hives naproxen [From Aleve] Adverse Reaction (Severe, Verified 01/28/18 09:07) Kidney disease Stage 3 Medications to take at Discharge Allopurinol 300 mg PO DAILY 12/03/16 Amitriptyline HCl 75 mg PO QHS 12/03/16 Atenolol 50 mg PO DAILY 12/03/16 cholecalciferol (vitamin D3) 2,000 unit capsule 2,000 unit PO DAILY 05/27/17 diltiazem CD 180 mg capsule,extended release 24 hr 180 mg PO DAILY 05/27/17 hydroxychloroquine 200 mg tablet 200 mg PO QDAY 05/27/17 omega-3 fatty acids 1,000 mg capsule 1,000 mg PO QDAY 05/27/17 sitagliptin 100 mg tablet 100 mg PO QDAY 05/27/17 gabapentin 300 mg capsule 300 mg PO TID cap 08/19/17 ipratropium 20 mcg-albuterol 100 mcg/actuation mist for inhalation 1 inh INHALATION Q6H PRN #4 g 08/22/17 Atorvastatin Calcium [Lipitor] 40 mg PO QDAY 01/13/18 Cyclobenzaprine HCl 10 mg PO TID PRN PRN 01/13/18 Multivit-Min/Iron/Folic/Lutein [Centrum Silver Women Tablet] 1 tab PO DAILY 01/13/18 Acetaminophen [Tylenol Tablet] 650 mg PO Q6H PRN PRN tablet 01/21/18 Cefepime HCl [Maxipime] 2 gm IV Q12 01/21/18 Insulin Lispro [Humalog KwikPen] See Protocol SQ ACHS 01/21/18 Magnesium Hydroxide [Milk Of Magnesia] 30 ml PO DAILY PRN PRN udc 01/21/18 Mometasone Furoate [Nasonex] 2 spray INTRANASAL QDAY 01/21/18 Vancomycin IV 1,500 mg IV Q24H 01/21/18 Primary Care Physician: Pia Newton MD [Primary Care Provider] - Test Results: Test results from this visit will be discussed in further detail at your follow-up appointment, if applicable. Proposed Discharge Date: 01/29/18 - Back to [facility], plan for OR next week 01/29/18 1642 <Electronically signed by Candi [place] DPM> Date Candi [place] DPM CC: Pia Newton MD FOOT 2 VIEWS Observed: 01/29/2018 Status: F Source: ANA 4:31 PM [facility] REPOSITORY [facility] Imaging Services [address] [place] [address] Foot 2 Views MR#: [id number] Acct: [id number] Name: KANDY LAUREN ANN Rep #: [id number] : 1960 F 57 From: Devika Lyons MD PCP: Pia [place] MD [place] [facility] [place]: Foot 2 Views Date of Exam: 01/29/18 Exam# [id number] Ordering Dr: Candi [place] DPM STUDY: X-RAY - LEFT FOOT CLINICAL: Female, 57 years old. Postop left total TECHNIQUE: 2 view(s) of the foot. COMPARISON: 01/13/2018 FINDINGS: Significant superimposed metallic hardware limiting particularly lateral view. Generalized osteopenia. Obscured talus, calcaneus. Mild arthropathy of the visualized subtalar, talonavicular, calcaneocuboid, tarsal and tarsometatarsal articulations. Cortical thinning with a regular cortex and trabecular pattern involving the proximal first metatarsal metaphyses which appears larger when compared to previous examination and more indistinct. Otherwise normal metatarsi. There is degenerative arthrosis of the metatarsophalangeal joint of the hallux . Normal tibial and fibular sesamoid bones. Normal interphalangeal joint of the great toe. Normal phalanges of the great toe. Normal second through fifth metatarsophalangeal joints. Normal interphalangeal joints and phalanges of the lesser toes. The soft tissue structures are unremarkable. RAD/Foot 2 Views IMPRESSION: Osteoporosis, mild arthropathy. Extremely limited detail due to significant substantial superimposed hardware. Possible surgical intervention along the erosive destruction of the first proximal metatarsal metaphyses, ulceration is less well-defined on current exam. Osteomyelitis not excluded. Electronically Signed: Devika Lyons MD at 2:12 EDT , Service support , CC: NORA [place]; Pia Newton MD Political Worker: Signed ANKLE MIN 3 VIEWS Observed: 01/29/2018 Status: F Source: GANTT 4:31 PM [facility] REPOSITORY [facility] Imaging Services [address] [place] [address] Ankle min 3 Views MR#: [id number] Acct: [id number] Name: KANDY LAUREN Rep #: [id number] : 1960 F 57 From: Devika Lyons MD PCP: Pia Newton MD [place] [facility]: Ankle min 3 Views Date of Exam: 01/29/18 Exam# [id number] Ordering Dr: Candi [place] DPM STUDY: X-RAY - LEFT ANKLE REASON FOR EXAM: Female, 57 years old. Postop left ankle TECHNIQUE: 3 view(s) of the ankle. Possible superimposed metallic densities/external fixator limiting the detail. Interval removal distal fibular sideplates and screws. COMPARISON: 01/16/2018 FINDINGS: Resection of the distal fibula. Transverse fracture displacement of the medial malleolus, no acute fracture lines detected. Numerous osseous defect in the distal tibia and fibula from prior hardware. Likely surgical resection along the medial distal tibia/malleolus level.. There is subluxation laterally of the talus on the tibia, less pronounced when compared to previous exam. Intact dome of the talus and obscured calcaneus. Soft tissue lucency at the surgical site. RAD/Ankle min 3 Views IMPRESSION: Postsurgical changes status post resection distal fibula, medial distal tibia, continued lateral subluxation of the tibiotalar articulation. Soft tissue changes consistent with recent surgical intervention. Limited detail of calcaneus. Electronically Signed: Devika Lyons MD at 2:16 EDT , Service support , CC: NORA [place]; Pia Newton MD Political Worker: Signed TIBIA AND FIBULA Observed: 01/29/2018 Status: F Source: GANTT 2 VIEWS 4:31 PM [facility] REPOSITORY [facility] Imaging Services [address] [place] [address] Tibia AND Fibula 2 Views MR#: [id number] Acct: [id number] Name: KANDY LAUREN Rep #: [id number] : 1960 F 57 From: Devika Lyons MD PCP: Pia Newton MD Status: [facility] Study: Tibia AND Fibula 2 Views Date of Exam: 01/29/18 Exam# [id number] Ordering Dr: Candi [place] DPM STUDY: X-RAY - LEFT TIBIA AND FIBULA REASON FOR EXAM: Female, 57 years old. Postop left leg TECHNIQUE: 2 view(s) of the tibia and fibula were obtained. Irritation limitation due to metallic densities/external fixator. COMPARISON: None. FINDINGS: Osseous defects most consistent with previous ORIF. There is osteopenia.. There is recent surgical resection of the distal fibula with adjacent soft tissue swelling and pockets of air. There is continued lateral subluxation of the tibiotalar joint. The surgical resection along the medial distal tibia noted on ankle views is obscured. There is atherosclerosis. RAD/Tibia AND Fibula 2 Views IMPRESSION: Postsurgical resection of the distal fibula and side plate with recent surgical intervention, application of external fixator device. Electronically Signed: Devika Lyons MD at 2:27 EDT , Service support , CC: NORA [place]; Pia Newton MD Political Worker: Signed BEDSIDE GLUCOSE Collected: 01/29/2018 Status: F Source: ANA 2:58 PM [facility] REPOSITORY TYPE CODE TESTS RESULT OUT OF RANGE REFERENCE UNITS LAB L501.080 70-110 mg/dL Normal BEDSIDE GLU 106 Result Comment: MANAGEMENT OF PATIENT CARE PER NURSING PROTOCOL Performed By: #### L501.080 #### [facility] Point of Care [address] [facility] [place] [place] [address] HH, HEMOGLOBIN AND Collected: 01/29/2018 Status: F Source: ANA HEMATOCRIT 1:58 PM [facility] REPOSITORY TYPE CODE TESTS RESULT OUT OF RANGE REFERENCE UNITS LAB L100.1300 12.0-15.0 g/dl Low HGB 8.3 LAB L100.1400 37-47 % Low HCT 27.0 Performed By: #### L100.0600 #### [facility] [address] [place], [address] MRSA WOUND DNA BY Collected: 01/29/2018 Status: F Source: ANA PCR 10:25 AM [facility] REPOSITORY Order Comment: Comments: Collected in OR, Medial Left Ankle Wound TYPE CODE TESTS RESULT OUT OF RANGE REFERENCE UNITS LAB L8200.1100 Negative Normal MRSA Negative RESULT LAB L8200.1150 Negative High SA RESULT POSITIVE Performed By: #### L8200.1075 #### [facility] [address] [place], [address] MRSA WOUND DNA BY Collected: 01/29/2018 Status: F Source: ANA PCR 10:25 AM [facility] REPOSITORY Order Comment: Comments: Collected in OR, Medial Left Ankle Wound TYPE CODE TESTS RESULT OUT OF REFERENCE UNITS RANGE LAB L8200.1100 Negative High MRSA POSITIVE RESULT LAB L8200.1150 Negative High SA RESULT POSITIVE Performed By: #### L8200.1075 #### [facility] [address] [place], [address] Observed: 01/29/2018 Status: F Source: ANA CULTURE, DEEP WOUND 10:25 AM [facility] REPOSITORY Order Date: 10/30/16 Comments: Distal Fibula Clearance Fragment Collected in OR Gram Stain Gram Stain No White Blood Cells No organisms seen Wound Culture No growth aerobically. Cult, Anaerobic No growth in 5 days. Performed By: #### M100.1500, M100.3880 #### [facility] [address] [place], [address] [employer]B Observed: 01/29/2018 Status: F Source: ANA CULT/SMEAR [id number] 10:25 AM [facility] REPOSITORY Comments: Collected in OR, Distal Fibula Clearance Fragment AFB Smear/Fluor TESTING PERFORMED AT [facility]. ORIGINAL REPORT ON FILE IN LAB CONTAINS ADDITIONAL TEST SITE INFORMATION. Smear, Acid Fast Tissue Grinding Smear: Negative AFB Cult TESTING PERFORMED AT [facility]. ORIGINAL REPORT ON FILE IN LAB CONTAINS ADDITIONAL TEST SITE INFORMATION. Culture, Acid Fast NO ACID-FAST BACILLI ISOLATED AFTER 6 WEEKS. Performed By: #### M100.1500, M100.3880 #### [facility] [address] [place], [place], [address] Observed: 01/29/2018 Status: F Source: ANA CULTURE, DEEP WOUND 10:25 AM [facility] REPOSITORY Order Date: 10/30/16 Comments: Collected in OR, Exposed Tibial Bone Gram Stain Gram Stain No White Blood Cells No organisms seen Wound Culture Isolated from broth culture only. ORGANISM 1: Meth. resistant Staph. aureus Amount Growth Growth Meth. resistant Staph. aureus: REACTION Benzylpenicillin NF >=0.5 R Cefoxitin *NF + Clindamycin $$ >=8 R Inducable Clindamycin Resistan - Erythromycin $ >=8 R Gentamicin $ <=0.5 S Levofloxacin $ >=8 R Linezolid $$$$ 2 S Oxacillin NF >=4 R Tigecycline $$$$ 0.5 S Rifampin $$ <=0.5 S Tetracycline NF 2 S Trimethoprim/Sulfametho $ <=10 S Vancomycin $ 1 S (NF) indicates non-formulary drug at [facility]. Approval by Infectious Disease Specialist required before non-formulary drugs may be ordered and/or dispensed. * CLSI guidelines does not recommend testing of cephalosporins. This interpretation is deduced from Beta-lactam/penicillin results. Cult, Anaerobic No growth in 5 days. Performed By: #### M100.1500 #### [facility] [address] [place], [address] Observed: 01/29/2018 Status: F Source: ANA CULTURE, DEEP WOUND 10:25 AM [facility] REPOSITORY Order Date: 10/30/16 Comments: Collected in OR, Fibula Bone Gram Stain Gram Stain No White Blood Cells No organisms seen Wound Culture No growth aerobically. Cult, Anaerobic No growth in 5 days. Performed By: #### M100.1500 #### [facility] [address] [place], [address] Observed: 01/29/2018 Status: F Source: ANA CULTURE, FUNGUS W/ 10:25 [id number] [place]POS[place] Comments: Collected in OR, Distal Fibula Clearance Fragment Is this test to exclude patient from TB Isolation? N Cu,[id number] TESTING PERFORMED AT [facility]. ORIGINAL REPORT ON FILE IN LAB CONTAINS ADDITIONAL TEST SITE INFORMATION. CUF No yeast or mold isolated after [address] TESTING PERFORMED AT [facility]. ORIGINAL REPORT ON FILE IN LAB CONTAINS ADDITIONAL TEST SITE INFORMATION. Fungus Stain No yeast or mold observed. Performed By: #### M600.1900 #### [facility] [address] [place], [address] [employer]B Observed: 01/29/2018 Status: F Source: ANA CULT/SMEAR [id number] 10:25 [facility] [place] Comments: Collected in OR, Exposed Tibial Bone AFB Smear/Fluor TESTING PERFORMED AT [facility]. ORIGINAL REPORT ON FILE IN LAB CONTAINS ADDITIONAL TEST SITE INFORMATION. Smear, Acid Fast Tissue Grinding Smear: Negative AFB Cult TESTING PERFORMED AT [facility]. ORIGINAL REPORT ON FILE IN LAB CONTAINS ADDITIONAL TEST SITE INFORMATION. Culture, Acid Fast NO ACID-FAST BACILLI ISOLATED AFTER 6 WEEKS. Performed By: #### M100.3880 #### [facility] [address] [place], [address] Observed: 01/29/2018 Status: F Source: MAURI CHAMORRO W/ 10:25 [facility] [id number] [place]POSITORY Comments: Collected in OR, Exposed Tibial Bone Is this test to exclude patient from TB Isolation? N Clement,[id number] TESTING PERFORMED AT [facility]. ORIGINAL REPORT ON FILE IN LAB CONTAINS ADDITIONAL TEST SITE INFORMATION. CUF No yeast or mold isolated after [address] TESTING PERFORMED AT [facility]. ORIGINAL REPORT ON FILE IN LAB CONTAINS ADDITIONAL TEST SITE INFORMATION. Fungus Stain No yeast or mold observed. Performed By: #### M600.1900 #### [facility] [address] [place], [address] [employer] Observed: 01/29/2018 Status: F Source: ANA CULT/SMEAR [id number] 10:25 [facility] [place] Comments: Collected in OR, Fibula Bone AFB Smear/Fluor TESTING PERFORMED AT [facility]. ORIGINAL REPORT ON FILE IN LAB CONTAINS ADDITIONAL TEST SITE INFORMATION. Smear, Acid Fast Tissue Grinding Smear: Negative AFB Cult TESTING PERFORMED AT [facility]. ORIGINAL REPORT ON FILE IN LAB CONTAINS ADDITIONAL TEST SITE INFORMATION. Culture, Acid Fast NO ACID-FAST BACILLI ISOLATED AFTER 6 WEEKS. Performed By: #### M100.3880 #### [facility] [address] [facility] [address] [place], [address] Observed: 01/29/2018 Status: F Source: ANA POLA, FUNGUS W/ 10:25 AM [facility] [id number] REPOSITORY Comments: Collected in OR, Fibula Bone Is this test to exclude patient from TB Isolation? N Cu,[id number] TESTING PERFORMED AT [facility]. ORIGINAL REPORT ON FILE IN LAB CONTAINS ADDITIONAL TEST SITE INFORMATION. CUF No yeast or mold isolated after [address] TESTING PERFORMED AT [facility]. ORIGINAL REPORT ON FILE IN LAB CONTAINS ADDITIONAL TEST SITE INFORMATION. Fungus Stain No yeast or mold observed. Performed By: #### M600.1900 #### [facility] [address] [place], [place], [address] BONE (FX/NONFRACTURE) Observed: 01/29/2018 Status: F Source: ANA 8:45 AM [facility] REPOSITORY Patient: MJKANDYJUAN : 1960 (57/F) Acct Num: [id number] Phys: Candi [place] Unit Num: [id number] [place] [facility] [place]: [id number] Received: 01/29/181603 Spec Type: Bone TISSUES 1 TISSUES: A. Bone of ankle, NOS B. Bone of ankle, NOS C. Tibia, NOS COMMENT Please make reference to previous specimen ([id number]) left distal tibia bone, core biopsy with diagnosis of negative for acute osteomyelitis, left talus bone, core biopsy with diagnosis of negative for acute osteomyelitis, left medial malleolus bone with diagnosis of pieces of bone with chronic inflammation and reactive changes and left distal fibula bone, core biopsy with diagnosis of a piece of bone with acute osteomyelitis. GROSS DESCRIPTION A - Received in fixative is one container labeled with the patient's name and designated fibula bone. The specimen consists of a fragment of bone with attached pérez soft tissue measuring 4 x 2.7 x 1.5 cm. Bundle Shaker sections are submitted in two cassettes after decalcification. B - Received in fixative is one container labeled with the patient's name and designated distal fibula clearance fragment. The specimen consists of multiple irregular fragments of pérez bone that in aggregate measure 2.5 x 2 x 0.2 cm. The specimen is totally submitted in one cassette after decalcification. C - Received in fixative is one container labeled with the patient's name and designated exposed tibial bone. The specimen consists of a discoid fragment of light pérez bone measuring 2.2 x 2 x 0.2 cm. The specimen is totally submitted in one cassette after decalcification. / AM:jason 01/30/18 TC:2 CPT: 98876 x3, 18387 x3 HEADER OPERATION: Left ankle removal hardware, multiplanar external fixation PRE-OP DIAGNOSIS: Acute osteomyelitis involving left ankle and foot; open left ankle fracture; infected decubitus ulcer left ankle; diabetic foot ulcer associated with type 2 diabetes mellitus TISSUE SUBMITTED: A - Fibula bone, B - Distal fibula clearance fragment, C - Exposed tibial bone MICROSCOPIC DESCRIPTION Slides are reviewed. MICROSCOPIC DIAGNOSIS A. Fibula bone: A piece of bone with chronic inflammation and reactive changes. Adherent soft tissue with acute and chronic inflammation. B. Distal fibula bone clearance fragment: A piece of bone with chronic inflammation and reactive changes. Adherent soft tissue with acute and chronic inflammation and granulation tissue reaction. C. Exposed tibial bone: A piece of bone with acute osteomyelitis. SJ:jason 02/04/18 Signed Sid Holloway 02/04/18 <signature on file> Performed By: #### PBON #### [facility] [address] [place], [address] VANCOMYCIN, RANDOM Collected: 01/29/2018 Status: F Source: ANA LEVEL 8:00 AM [facility] REPOSITORY Order Comment: Comments: RANDOM LEVEL DUE AT 0900 TYPE CODE TESTS RESULT OUT OF REFERENCE UNITS RANGE LAB L501.8850 0.0-15.0 ug/mL High VANCO, RANDOM 19.2 Result Comment: VANCOMYCIN STANDARD DRUG THERAPY: CRITICAL VALUE IS > 15.0 mg/L VANCOMYCIN HIGH INTENSITY THERAPY: CRITICAL VALUE IS > 20.0 mg/L PLEASE CONTACT PHARMACY SERVICES (#[id number]) FOR INTERPRETATION OF RESULTS. THIS RESULT DOES NOT REPRESENT A PEAK OR TROUGH LEVEL FOR THIS DRUG. Performed By: #### L501.8850 #### [facility] [address] [place], [address] BEDSIDE GLUCOSE Collected: 01/29/2018 Status: F Source: ANA 6:42 AM [facility] REPOSITORY TYPE CODE TESTS RESULT OUT OF REFERENCE UNITS RANGE LAB L501.080 70-110 mg/dL High BEDSIDE GLU 136 Result Comment: MANAGEMENT OF PATIENT CARE PER NURSING PROTOCOL Performed By: #### L501.080 #### [facility] Point of Care [address] [facility] [place] [address] BASIC METABOLIC Collected: 01/29/2018 Status: F Source: ANA PROFILE (BMP) 5:30 AM [facility] REPOSITORY TYPE CODE TESTS RESULT OUT OF RANGE REFERENCE UNITS LAB L501.0100 74-106 mg/dL High GLU 115 Result Comment: Fasting Glucose result from 100 to 125 mg/dL suggests IMPAIRED HOMEOSTASIS per A.D.A. criteria. Please note revised GLUCOSE reference range effective 2017. LAB L501.1000 7-18 mg/dL High BUN 74 LAB L501.1100 0.55-1.02 mg/dL High CREAT,SERUM 1.71 Result Comment: The validity of the calculated GFR AND GFRAA in patients over 70 years has not been determined. Clinical correlation is essential. LAB L501.1110 >60 mL/min Low EST GFR 32 Result Comment: Non- GFR Calc LAB L501.1115 >60 mL/min Low EST GFR - AA 39 Result Comment: GFR Calc LAB L501.1255 ml/min Normal Estimated CRCL 33.16 LAB L501.1300 10-20 RATIO High BUN/CRE 43.3 LAB L501.2200 8.5-10 mg/dL Normal .1 CA 9.1 LAB L501.5300 136-14 mmol/L Normal 5 NA 139 LAB L501.5600 3.5-5. mmol/L Normal 1 K 5.1 LAB L501.5900 98-107 mmol/L High CL 108 LAB L501.6100 21.0-3 mmol/L Normal 2.0 CO2 22.0 LAB L501.6200 5-15 Normal GAP 9 Performed By: #### L500.2500 #### [facility] [address] [place], [place], [address] PROTHROMBIN TIME W/INR Collected: 01/29/2018 Status: F Source: GANTT 5:30 AM [facility] REPOSITORY TYPE CODE TESTS RESULT OUT OF RANGE REFERENCE UNITS LAB L300.4150 11.7-14.9 SECONDS High PROTIME 15.2 LAB L300.4200 Normal INR 1.2 Performed By: #### L300.3900 #### [facility] [address] [place], [address] CBC W/DIFF, AUTOMATED Collected: 01/29/2018 Status: F Source: GANTT 5:30 AM [facility] REPOSITORY TYPE CODE TESTS RESULT OUT OF RANGE REFERENCE UNITS LAB L100.1000 4.4-11.0 K/mm3 Normal WBC 8.0 LAB L100.1200 4.2-5.4 M/mm3 Low RBC 2.95 LAB L100.1300 12.0-15.0 g/dl Low HGB 7.7 LAB L100.1400 37-47 % Low HCT 25.3 LAB L100.1500 81-99 fL Normal MCV 85.8 LAB L100.1600 27.0-32.0 pg Low MCH 26.1 LAB L100.1700 32-36 g/gl Low MCHC 30.4 LAB L100.1810 11.6-14.6 % High RDW CV 15.5 LAB L100.1820 35.1-43.9 fl High RDW SD 48.2 LAB L100.1900 150-450 K/mm3 Normal PLT 305 LAB L100.2000 6.2-12.0 fl Normal MPV 8.7 LAB L100.2100 47-70 % Normal NEUT% 55.3 LAB L100.2200 19-41 % Normal LY% 28.6 LAB L100.2300 0-10 % High MONO% 10.4 LAB L100.2400 0-5 % Normal EO% 3.4 LAB L100.2500 0-1 % Normal BASO% 1.0 LAB L100.2550 0.0-0.9 % High IM GRAN % 1.300 Result Comment: IG% - Immature Granulocytes (promyelocytes, myelocytes and metamyelocytes) > 1% indicates that a LEFT SHIFT is Present. LAB L100.2620 2.0-7.7 X10 3/uL Normal Absolute Neut 4.4 LAB L100.2720 0.83-4.51 X10 3/ul Normal Absolute Lymph 2.28 Performed By: #### L100.0100 #### [facility] [address] [facility] [place] [place], [address] ANKLE 2 VIEWS Observed: 01/29/2018 Status: F Source: GANTT 5:06 AM [facility] REPOSITORY [facility] Imaging Services [address] [place] [address] Ankle 2 Views MR#: [id number] Acct: [id number] Name: KANDY LAUREN ANN Rep #: [id number] : 1960 F 57 From: Shahbaz Gtz MD PCP: Pia Newton MD Status: [facility] Study: Ankle 2 Views Date of Exam: 01/29/18 Exam# [id number] Ordering Dr: Candi [place] DPM STUDY: X-RAY - LEFT ANKLE REASON FOR EXAM: Female, 57 years old. Fracture TECHNIQUE: 16 intraoperative spot view(s) of the ankle. COMPARISON: January 20, 2018 FINDINGS: Intraoperative fluoroscopy utilized for 117.9 SEC during hardware removal and external fixation placement. RAD/Ankle 2 Views IMPRESSION: Intraoperative fluoroscopy. Electronically Signed: Shahbaz Gtz MD at 23:40 EDT , Service support , CC: NORA [place]; Pia Newton MD Political Worker: Signed CONSULTATION Observed: 01/28/2018 Status: F Source: GANTT 9:05 PM [facility] REPOSITORY [facility] Medical Records Department [address] [place] [address] Consultation 01/28/182049 MR#: [id number] Acct: [id number] Name: KANDY LAUREN ANN Rep #: [id number] : 1960 57 From: Candi [place] DPM PCP: Pia Newton MD Status: ADM IN Location: [place] [address] Reason for Consult Date of Consultation: 01/28/18 Reason for Consultation: LLE limb salvage History of Present Illness: The patient is a 57 year old F with MMP and candidate for LLE limb salvage [] Past Medical History Past Medical History (Chronic Problems): Chronic Problems (Last Reviewed 01/21/18 @ 12:13 by Jose oRbbins MD) Rheumatoid arthritis (Chronic) Gout (Chronic) Tinea unguium (Chronic) Type 2 diabetes mellitus with diabetic polyneuropathy (Chronic) Peripheral neuropathy (Chronic) Arthritis (Chronic) Hypertension (Chronic) High cholesterol (Chronic) Hypertension (Chronic) Hyperlipidemia (Chronic) Type 2 diabetes mellitus (Chronic) 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) Uncontrolled type 2 diabetes mellitus (Chronic) Non-pressure chronic ulcer of other part of right foot limited to breakdown of skin (Chronic) Tobacco use disorder (Chronic) Pure hypercholesterolemia (Chronic) History of hypertension (Chronic) Type 2 diabetes mellitus with diabetic polyneuropathy (Chronic) History of gout (Chronic) Obesity (Chronic) COPD (chronic obstructive pulmonary disease) (Chronic) Chronic renal insufficiency, stage III (moderate) (Chronic) Type 2 diabetes mellitus with foot ulcer (Chronic) History of diabetes mellitus, type II (Chronic) Medical History: Medical History (Last Reviewed 01/21/18 @ 12:13 by Jose Robbins MD) Arthritis (Chronic) M19.90 Hypertension (Chronic) I10 High cholesterol (Chronic) E78.00 Clostridium difficile infection B96.89 Gout M10.9 Heart disease I51.9 Inflammatory arthritis M19.90 Lupus L93.0 Rheumatoid arthritis M06.9 Diabetes E11.9 Allergies aspirin Allergy (Verified 01/28/18 09:07) Hives latex Allergy (Verified 01/28/18 09:07) Hives Penicillins Allergy (Verified 01/28/18 09:07) Hives naproxen [From Aleve] Adverse Reaction (Severe, Verified 01/28/18 09:07) Kidney disease Stage 3 Home Medications: Ambulatory Orders Medication Instructions Recorded Surgical History: Surgical History (Last Reviewed 01/21/18 @ 12:13 by Jose Robbins MD) History of carpal tunnel release Z98.890 History of hysterectomy Z98.890, Z90.710 amputation of right pinke toe history of 2 back sugeries history of right femoral stent history of right shoulder surgery Surgical History: - - The patient has a history of lumbar disc surgery 2. She is undergone total abdominal hysterectomy. She is undergone right carpal tunnel release. She has had right shoulder surgery. Patient is a Ab2, having had 2 abortions. 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 history Lives: Alone Smoking Status: Former smoker Tobacco Use: Non-smoker Alcohol: Rare Drugs: None - *Family History Maternal Family History: Family History (Last Reviewed 01/21/18 @ 12:14 by Jose Robbins MD) Mother Diabetes Hypertension CVA (cerebral vascular accident) Brother Alcoholism Sister Cancer Father Heart disease Respiratory disease History Items: - - Patient's mother at the age of 80 with a history of myocardial infarction, cerebrovascular accident, and polio Paternal Family History: Family History (Last Reviewed 01/21/18 @ 12:14 by Jose Robbins MD) Mother Diabetes Hypertension CVA (cerebral vascular accident) Brother Alcoholism Sister Cancer Father Heart disease Respiratory disease History Items: - - The patient's father at the age of 64 with a history of lung cancer. Patient Problems: Active and Suspected Problems (Last Reviewed 01/21/18 @ 12:13 by Jose Robbins MD) Open left ankle fracture (Acute) Anemia (Acute) Subjective: Pt evaluated at bedside. Says she feels well and is ready for the operating room tomorrow. Denies f/c/n/v. States she has been doing well without smoking and does not need or want a nicotine patch. Objective: LLE is wrapped with pneumatic cam walker in place. Deferred examination until OR tomorrow - Physical Exam General: Alert Vital Signs Temp Pulse Resp BP Pulse Ox 96.8 F L 74 20 H 143/70 H 99 01/28/18 15:53 01/28/18 15:53 01/28/18 15:53 01/28/18 15:53 01/28/18 15:53 Oxygen Delivery Method Room Air Weight: 232 lb 5.875 oz Body Mass Index (BMI) 37.3 Intake and Output for Last 24 Hours Intake Total 1320 / 1320 360 / 360 660 / 660 Balance 1320 / 1320 360 / 360 660 / 660 Laboratory Tests Past 24 Hrs Sodium Potassium Chloride Carbon Dioxide Anion Gap BUN Creatinine Estim Creat Clear Calc POC Glucose POC Glucose 130 H Assessment/Plan All Active Problems (Last Reviewed 01/21/18 @ 12:13 by Jose Robbins MD) Acute osteomyelitis involving ankle and foot (Acute) Open left ankle fracture (Acute) Anemia (Acute) Decubitus ulcer of right heel, stage 3 (Acute) Infected decubitus ulcer (Acute) Blister (nonthermal), right great toe, initial encounter (Acute) Non-pressure chronic ulcer of right heel and midfoot with fat layer exposed (Acute) Non-pressure chronic ulcer of left heel and midfoot with fat layer exposed (Resolved) Diabetic foot ulcer associated with type 2 diabetes mellitus (Acute) Struck statnry object w/o fall (Acute) Non-pressure chronic ulcer of other part of right foot with fat layer exposed (Acute) Non-pressure chronic ulcer of other 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 Was cared for at OSH. -pt evaluated at bedside-labs, studies, and notes reviewed Pathology from bone biopsy negative x 3 for OM, + acute OM of L distal fibula biopsy that is planned for removal -Plan for OR tomorrow for Left lower extremity soft tissue and bone debridement, hardware removal, application of multiplanar external fixation and NPWT. Staged limb salvage procedures. Agree with ID on shelter iv abx. Will plan for interval washouts, and pending labs and patient's stability will look to return to the OR in 1-2 weeks for additional washout. -Pt will likely need a flap-adiposfascial vs jona soleus, will need CTA angio for surgical planning if it can be done with CO2. Appreciate medicine and vascular recommendations. t/c mri time of flight with runoff if unable to use CO2. Please call with questions/concerns if we cannot obtain this in the next 1-2 weeks. - Pt will be NWB LLE and will need wound vac changes post operatively q3d. wound vac will likely be used extensively as we progress through limb salvage process for flap/STSG. -NPO at andrés carvajal, pre op labs to include cmp, cbc, coags, and active t AND s. If Hgb < 9 please have 2 units control panel operator crude unit to the OR. -Benefits and risks of surgery were discussed at length with the patient. She understands this is a multiple stage process. She understands she still may need a BKA if her LLE puts her health at risk. She agrees with plan. Risks include but are not limited to: pain bleeding infection, delayed nonunion, DVT/PE need for further surgery, fracture. No guarantees were given 01/28/18 0482 <Electronically signed by Candi [place] DPM> Date Candi [place] DPConnie Ambroseignpawel Signature (if applicable): Date CC: NORA [place]; Pia Newton MD; Nellie Quezada DPM; Ying Bejarano MD; Gerson Elizondo MD Signed TYPE AND SCREEN Collected: 01/28/2018 Status: F Source: ANA 1:10 PM [facility] REPOSITORY Order Comment: Reason for Type AND Screen/Red Cells: SURGERY Surgery Date: 12/29/17 Time: 0730 Other - use comments: hardware removal Type of Surgery: OTHER TYPE CODE TESTS RESULT OUT OF RANGE REFERENCE UNITS LAB B10.0800 O Normal BLOOD TYPE GEL NEGATIVE LAB B100.4000 Normal Antibody NEGATIVE Screen Performed By: #### B101.7450 #### [facility] [address] [place], [address] RC Collected: 01/28/2018 Status: F Source: ANA 1:10 PM [facility] REPOSITORY TYPE CODE TESTS RESULT OUT OF REFERENCE UNITS RANGE LAB U100.0000 [id number] TRANSFUSED PRODUCT: T AND S with Crossmatch, Red Cells COUNT: 1 Performed By: #### U100.0000 #### [facility] - refer to report for specific site BEDSIDE GLUCOSE Collected: 01/28/2018 Status: F Source: ANA 6:15 AM [facility] REPOSITORY TYPE CODE TESTS RESULT OUT OF REFERENCE UNITS RANGE LAB L501.080 70-110 mg/dL High BEDSIDE GLU 130 Result Comment: Dr Shannon Followed MANAGEMENT OF PATIENT CARE PER NURSING PROTOCOL Performed By: #### L501.080 #### [facility] Point of Care [address] [place], [place] [address] VANCOMYCIN, TROUGH Collected: 01/28/2018 Status: F Source: ANA LEVEL 12:40 AM [facility] REPOSITORY Order Comment: Comments: Please draw random level on 01/28 at 0030 Time Medication is to be Given? 0100 TYPE CODE TESTS RESULT OUT OF REFERENCE UNITS RANGE LAB L501.8820 5.0-15.0 ug/mL High VANCO, TROUGH 18.5 Result Comment: VANCOMYCIN STANDARED DRUG THERAPY TROUGH LEVEL: 5.0 - 15.0 mg/L VANCOMYCIN HIGH INTENSITY THERAPY TROUGH LEVEL: 15.0 - 20.0 mg/L High Intensity therapy recommended for serious life threatening infections include: - Meningitis -Endocarditis -Pneumonia (Ventilator/Healtcare Associated) -Sepsis PLEASE CONTACT PHARMACY SERVICES (#[id number]) FOR INTERPRETATION OF RESULTS. Performed By: #### L501.8867 #### [facility] [place], [address] BASIC METABOLIC Collected: 01/28/2018 Status: F Source: GANTT PROFILE (BMP) 12:40 AM [facility] REPOSITORY Order Comment: Comments: please draw BMP with random vancomycin level TYPE CODE TESTS RESULT OUT OF RANGE REFERENCE UNITS LAB L501.0100 74-106 mg/dL High GLU 141 Result Comment: Fasting Glucose result greater than or equal to 126 mg/dL suggests DIABETES MELLITUS per A.D.A. criteria. Please note revised GLUCOSE reference range effective 2017. LAB L501.1000 7-18 mg/dL High BUN 74 LAB L501.1100 0.55-1.02 mg/dL High CREAT,SERUM 1.69 Result Comment: The validity of the calculated GFR AND GFRAA in patients over 70 years has not been determined. Clinical correlation is essential. LAB L501.1110 >60 mL/min Low EST GFR 33 Result Comment: Non- GFR Calc LAB L501.1115 >60 mL/min Low EST GFR - AA 40 Result Comment: GFR Calc LAB L501.1255 ml/min Normal Estimated CRCL 33.55 LAB L501.1300 10-20 RATIO High BUN/CRE 43.8 LAB L501.2200 8.5-10 mg/dL Normal .1 CA 8.9 LAB L501.5300 136-14 mmol/L Normal 5 NA 139 LAB L501.5600 3.5-5. mmol/L Normal 1 K 5.1 LAB L501.5900 98-107 mmol/L Normal CL 107 LAB L501.6100 21.0-3 mmol/L Normal 2.0 CO2 21.0 LAB L501.6200 5-15 Normal GAP 11 Performed By: #### L500.9455 #### [facility] [address] [place], [address] 12 LEAD ELECTROCARDIOGRAM Observed: 01/27/2018 Status: F Source: ANA 11:44 AM [facility] REPOSITORY [facility] Cardiovascular Services [address] [place] [address] 12 Lead EKG 01/20/18 0445 MR#: [id number] Acct: [id number] Name: KANDY LAUREN Rep #: [id number] : 1960 57 From: Ocatvio Humphrey MD Attending Dr: Everett Hillman MD Status: DIS IN Ordering Dr: Lucas Farley MD Date: 01/20/18 Location: [facility] Sex: F C Admitted: 01/16/18 Test Reason : AM EKG Blood Pressure : / mmHG Vent. Rate : 075 BPM Atrial Rate : 075 BPM P-R Int : 166 ms QRS Dur : 100 ms QT Int : 418 ms P-R-T Axes : 027 046 064 degrees QTc Int : 466 ms Sinus rhythm with occasional Premature ventricular complexes Cannot rule out Anterior infarct , age undetermined Abnormal ECG When compared with ECG of 16-JAN-2018 18:44, No significant change was found Confirmed by OCTAVIO HUMPHREY ([id number]), state editor BUTCH PATTERSON ([id number]) on 01/27/2018 11:43:54 AM Referred By: Juan Tavarez Confirmed By:OCTAVIO HUMPHREY 01/27/18 1143 Date Octavio Humphrey MD CC: Pia Newton MD; Lucas Farley MD; Juan Tavarez MD; Everett Hillman MD Signed BEDSIDE GLUCOSE Collected: 01/27/2018 Status: F Source: ANA 6:31 AM [facility] REPOSITORY TYPE CODE TESTS RESULT OUT OF REFERENCE UNITS RANGE LAB L501.080 70-110 mg/dL High BEDSIDE GLU 138 Result Comment: MANAGEMENT OF PATIENT CARE PER NURSING PROTOCOL Performed By: #### L501.080 #### [facility] Point of Care [address] [place] [address] VANCOMYCIN, RANDOM Collected: 01/26/2018 Status: F Source: ANA LEVEL 11:00 PM [facility] REPOSITORY TYPE CODE TESTS RESULT OUT OF RANGE REFERENCE UNITS LAB L501.8850 0.0-15.0 ug/mL Normal VANCO, RANDOM 14.7 Result Comment: VANCOMYCIN STANDARD DRUG THERAPY: CRITICAL VALUE IS > 15.0 mg/L VANCOMYCIN HIGH INTENSITY THERAPY: CRITICAL VALUE IS > 20.0 mg/L PLEASE CONTACT PHARMACY SERVICES (#[id number]) FOR INTERPRETATION OF RESULTS. THIS RESULT DOES NOT REPRESENT A PEAK OR TROUGH LEVEL FOR THIS DRUG. Performed By: #### L501.8850 #### [facility] [address] [place], [address] CONSULTATION Observed: 01/26/2018 Status: F Source: ANA 10:09 PM [facility] REPOSITORY [facility] Medical Records Department [address] [place] [address] Consultation 01/26/18 1839 MR#: [id number] Acct: [id number] Name: KANDY LAUREN ANN Rep #: [id number] : 1960 57 From: Nellie Quezada DPM PCP: Pia Newton MD Status: ADM IN Location: [place] [address] Problem List (1) Tinea unguium Status: Chronic (2) Type 2 diabetes mellitus with diabetic polyneuropathy Status: Chronic Reason for Consult Date of Consultation: 01/26/18 Reason for Consultation: Long thick toenails that she cannot safely trimming her own History of Present Illness: The patient is a 57 year old F with multiple comorbidities was seen in the transitional care unit. She has for help trimming him on thick toenails that she cannot think of trauma on her own. She has diabetic neuropathy and has continued less paresthesias and lack of sensation. She also is in the transitional care unit and is status post open reduction internal fixation of open ankle fracture with subsequent MRSA infection. She recently had a bone biopsy and is being followed by infectious disease as well. I have been specifically consulted to help her with her toenails. 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) Uncontrolled type 2 diabetes mellitus (Chronic) Non-pressure chronic ulcer of other part of right foot limited to breakdown of skin (Chronic) Tobacco use disorder (Chronic) Pure hypercholesterolemia (Chronic) History of hypertension (Chronic) Type 2 diabetes mellitus with diabetic polyneuropathy (Chronic) History of gout (Chronic) Obesity (Chronic) COPD (chronic obstructive pulmonary disease) (Chronic) Chronic renal insufficiency, stage III (moderate) (Chronic) Type 2 diabetes mellitus with foot ulcer (Chronic) History of diabetes mellitus, type II (Chronic) Medical History: Medical History (Last Reviewed 01/21/18 @ 12:13 by Jose Robbins MD) Arthritis (Chronic) M19.90 Hypertension (Chronic) I10 High cholesterol (Chronic) E78.00 Clostridium difficile infection B96.89 Gout M10.9 Heart disease I51.9 Inflammatory arthritis M19.90 Lupus L93.0 Rheumatoid arthritis M06.9 Diabetes E11.9 Allergies aspirin Allergy (Verified 01/13/18 15:24) Hives latex Allergy (Verified 01/13/18 15:24) Hives Penicillins Allergy (Verified 01/16/18 17:49) Hives naproxen [From Aleve] Adverse Reaction (Severe, Verified 01/13/18 15:24) Kidney disease Stage 3 Home Medications: Ambulatory Orders Medication Instructions Recorded Surgical History: Surgical History (Last Reviewed 01/21/18 @ 12:13 by Jose Robbins MD) History of carpal tunnel release Z98.890 History of hysterectomy Z98.890, Z90.710 amputation of right pinke toe history of 2 back sugeries history of right femoral stent history of right shoulder surgery Surgical History: - - The patient has a history of lumbar disc surgery 2. She is undergone total abdominal hysterectomy. She is undergone right carpal tunnel release. She has had right shoulder surgery. Patient is a Ab2, having had 2 abortions. 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 history Lives: Alone Smoking Status: Former smoker Tobacco Use: Non-smoker Alcohol: Rare Drugs: None - *Family History Maternal Family History: Family History (Last Reviewed 01/21/18 @ 12:14 by Jose Robbins MD) Mother Diabetes Hypertension CVA (cerebral vascular accident) Brother Alcoholism Sister Cancer Father Heart disease Respiratory disease History Items: - - Patient's mother at the age of 80 with a history of myocardial infarction, cerebrovascular accident, and polio Paternal Family History: Family History (Last Reviewed 01/21/18 @ 12:14 by Jose Robbins MD) Mother Diabetes Hypertension CVA (cerebral vascular accident) Brother Alcoholism Sister Cancer Father Heart disease Respiratory disease History Items: - - The patient's father at the age of 64 with a history of lung cancer. Review of Systems Constitutional: Reports: Weakness. Denies: Chills, Fever Cardiovascular: Reports: Claudication. Denies: Chest Pain Respiratory: Denies: Pleuritic Pain Gastrointestinal: Denies: Nausea, Vomiting Musculoskeletal: Reports: Leg Pain. Denies: Foot Pain Skin: Reports: Skin Changes, Wounds Neurological: Reports: Balance problems, Incoordination, Numbness, Tingling Psychiatric: Reports: Depression Patient Problems: Active and Suspected Problems (Last Reviewed 01/21/18 @ 12:13 by Jose Robbins MD) Open left ankle fracture (Acute) Anemia (Acute) - Physical Exam General: Alert, Oriented x3, Cooperative HEENT: Atraumatic Extremities: Capillary Refill Less than 3 Seconds - Digits 1 2 3 4 for bilateral and 5 left, No Calf Tenderness - Negative Scott and Escalona sign bilateral, Diminished Peripheral Pulses - Palpable DP pulse right. Other DP pulse on the left and PTs are nonpalpable possibly secondary to edema or other vascular impairment, Edema - Bilateral lower extremity edema, - - Right fifth toe amputation noted Skin: - - Toenails long thick dystrophic with subungual debris 1, 2, 3, 4 bilateral and 5 left. A dressing to the left ankle is clean dry and intact without proximal erythema or purulence or odor. No interdigital maceration is noted Musculoskeletal: Muscle Wasting, Tenderness - Nail compression discomfort to thickened borders Neurological: - - Lack of epicritic sensation normal light touch bilateral foot Psych/Mental Status: Normal Affect, Appropriate, Anxious Vital Signs Temp Pulse Resp BP Pulse Ox 95.4 F L 77 18 123/61 H 94 01/26/18 15:12 01/26/18 15:12 01/26/18 15:12 01/26/18 15:12 01/26/18 15:12 Oxygen Delivery Method Room Air Weight: 105.1 kg Body Mass Index (BMI) 37.3 Intake and Output for Last 24 Hours Intake Total 880 / 880 840 / 840 1080 / 1080 Balance 880 / 880 840 / 840 1080 / 1080 Laboratory Tests Past 24 Hrs Random Vancomycin 21.2 H POC Glucose POC Glucose 108 Assessment/Plan All Active Problems (Last Reviewed 01/21/18 @ 12:13 by Jose Robbins MD) Acute osteomyelitis involving ankle and foot (Acute) Open left ankle fracture (Acute) Anemia (Acute) Decubitus ulcer of right heel, stage 3 (Acute) Infected decubitus ulcer (Acute) Blister (nonthermal), right great toe, initial encounter (Acute) Non-pressure chronic ulcer of right heel and midfoot with fat layer exposed (Acute) Non-pressure chronic ulcer of left heel and midfoot with fat layer exposed (Resolved) Diabetic foot ulcer associated with type 2 diabetes mellitus (Acute) Struck statnry object w/o fall (Acute) Non-pressure chronic ulcer of other part of right foot with fat layer exposed (Acute) Non-pressure chronic ulcer of other part of right foot with necrosis of bone (Acute) Visual disturbance (Acute) Gangrene of toe of right foot (Acute) Tobacco abuse counseling (Acute) 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 Her toenails were debrided with a nail nipper 1, 2, 3, 4 bilateral and 5 left without incident. She tolerated this well. She understands in no apparent today secondary to nail fungus or simply microtrauma. She elects to only proceed with palliative care at this time. Medical management per primary team is appreciated. It is also noted that her other fracture and wound issues are being managed by other care providers. Thank you for the consultation. Please not hesitate to call if you have any questions. She is advised to check her feet every day. She is advised to wear protective and supportive shoe gear. She will follow-up as needed. Nellie Quezada DPM, [facility] [phone] 01/26/182208 <Electronically signed by Nellie Quezada DPM> Date Nellie Quezada DPM Cosigner Signature (if applicable): Date CC: Pia Newton MD; Nellie Quezada DPM; Ying Bejarano MD; Gerson Elizondo MD Signed BEDSIDE GLUCOSE Collected: 01/26/2018 Status: F Source: ANA 6:18 AM [facility] REPOSITORY TYPE CODE TESTS RESULT OUT OF RANGE REFERENCE UNITS LAB L501.080 70-110 mg/dL Normal BEDSIDE GLU 108 Result Comment: MANAGEMENT OF PATIENT CARE PER NURSING PROTOCOL Performed By: #### L501.080 #### [facility] Point of Care [address] [place], [place] [address]. [place], [place] [address] VANCOMYCIN, RANDOM Collected: 01/25/2018 Status: F Source: ANA LEVEL 10:47 PM [facility] REPOSITORY TYPE CODE TESTS RESULT OUT OF REFERENCE UNITS RANGE LAB L501.8850 0.0-15.0 ug/mL High VANCO, RANDOM 21.2 Result Comment: VANCOMYCIN STANDARD DRUG THERAPY: CRITICAL VALUE IS > 15.0 mg/L VANCOMYCIN HIGH INTENSITY THERAPY: CRITICAL VALUE IS > 20.0 mg/L PLEASE CONTACT PHARMACY SERVICES (#[id number]) FOR INTERPRETATION OF RESULTS. THIS RESULT DOES NOT REPRESENT A PEAK OR TROUGH LEVEL FOR THIS DRUG. Performed By: #### L501.8850 #### [facility] [address] [place], [address] BEDSIDE GLUCOSE Collected: 01/25/2018 Status: F Source: ANA 6:37 AM [facility] REPOSITORY TYPE CODE TESTS RESULT OUT OF RANGE REFERENCE UNITS LAB L501.080 70-110 mg/dL Normal BEDSIDE GLU 110 Result Comment: MANAGEMENT OF PATIENT CARE PER NURSING PROTOCOL Performed By: #### L501.080 #### [facility] Point of Care [address] [place] [address] VANCOMYCIN, RANDOM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 L501.2200 8.5-10 mg/dL Normal .1 CA 8.6 LAB L501.5300 136-14 mmol/L Low 5 NA 135 LAB L501.5600 3.5-5. mmol/L Normal 1 K 4.9 LAB L501.5900 98-107 mmol/L Normal CL 106 LAB L501.6100 21.0-3 mmol/L Low 2.0 CO2 20.0 LAB L501.6200 5-15 Normal GAP 9 Performed By: #### L500.2500 #### [facility] [place], [address] CBC W/DIFF, AUTOMATED Collected: 01/21/2018 Status: C Source: ANA 5:10 AM [facility] REPOSITORY TYPE CODE TESTS RESULT OUT OF RANGE REFERENCE UNITS LAB L100.1000 4.4-11.0 K/mm3 Normal WBC 10.6 LAB L100.1200 4.2-5.4 M/mm3 Low RBC 3.20 LAB L100.1300 12.0-15.0 g/dl Low HGB 8.6 LAB L100.1400 37-47 % Low HCT 28.0 LAB L100.1500 81-99 fL Normal MCV 87.5 LAB L100.1600 27.0-32.0 pg Low MCH 26.9 LAB L100.1700 32-36 g/gl Low MCHC 30.7 LAB L100.1810 11.6-14.6 % High RDW CV 15.4 LAB L100.1820 35.1-43.9 fl High RDW SD 48.2 LAB L100.1900 150-450 K/mm3 High PLT 456 LAB L100.2000 6.2-12.0 fl Normal MPV 8.5 LAB L100.3100 MANUAL DIFF Normal CELLS COUNTED 100 LAB L100.3200 47-70 % High 80 SEGS LAB L100.3800 19-41 % Low 10 LYMPH LAB L100.3900 0-10 % 8 Normal MONOCYTE LAB L100.4000 0-5 % 1 Normal EOS LAB L100.4100 0-1 % 1 Normal BASOPHIL LAB L100.5500 ADEQ Normal PLT EST SLT INC LAB L100.7000 NORM C AND C NORMAL Normal RED CELL MORPH NORM C+C LAB L100.2620 2.0-7.7 X10 3/uL High Absolute Neut 8.5 LAB L100.2720 0.83-4.51 X10 3/ul Normal Absolute Lymph 1.06 LAB L100.9900 Normal PATH REV Reviewed Result Comment: Normocytic anemia. Clinical correlation necessary. Sid Holloway M.D. 01/22/18 AMENDED REPORT 01/22/18 1325 PATH REV previously reported as: May foll Performed By: #### L100.0100 #### [facility] [address] [place], [place], [address] BEDSIDE GLUCOSE Collected: 01/20/2018 Status: F Source: ANA 8:43 PM [facility] REPOSITORY TYPE CODE TESTS RESULT OUT OF REFERENCE UNITS RANGE LAB L501.080 70-110 mg/dL High BEDSIDE GLU 178 Result Comment: MANAGEMENT OF PATIENT CARE PER NURSING PROTOCOL Performed By: #### L501.080 #### [facility] Point of Care [address] [place] [address] BEDSIDE GLUCOSE Collected: 01/20/2018 Status: F Source: GANTT 4:18 PM [facility] REPOSITORY TYPE CODE TESTS RESULT OUT OF REFERENCE UNITS RANGE LAB L501.080 70-110 mg/dL High BEDSIDE GLU 153 Result Comment: MANAGEMENT OF PATIENT CARE PER NURSING PROTOCOL Performed By: #### L501.080 #### [facility] Point of Care [address] [place] [address] BEDSIDE GLUCOSE Collected: 01/20/2018 Status: F Source: [place] 11:40 AM [facility] REPOSITORY TYPE CODE TESTS RESULT OUT OF RANGE REFERENCE UNITS LAB L501.080 70-110 mg/dL Normal BEDSIDE GLU 110 Result Comment: MANAGEMENT OF PATIENT CARE PER NURSING PROTOCOL Performed By: #### L501.080 #### [facility] Point of Care [address] [place] [address] OPERATIVE REPORT Observed: 01/20/2018 Status: F Source: ANA 11:18 AM [facility] REPOSITORY [facility] Medical Records Department [address] [place] [address] Operative Report 01/20/18 1100 MR#: [id number] Acct: [id number] Name: KANDY LAUREN ANN Rep #: [id number] : 1960 57 From: Candi [place] DPM PCP: Pia Newton MD Status: ADM IN Location: [place] [address] Report of Operation Date of Procedure: 01/20/18 Pre-Operative Diagnosis: L ankle open fracture, nonunion, Osteomyelitis vs Charcot Post-Operative Diagnosis: L ankle open fracture, nonunion, Osteomyelitis vs Charcot Surgery/Procedure Performed:: Left ankle wound sharp debridement, excisional to bone. Left tibia bone biopsy. Left talus bone biopsy. Left fibula bone biopsy. Left medial malleolus bone biopsy, debridement Description of Surgical Findings:: see dictation Specimen's removed: Left ankle soft tissue and bone Estimated Blood Loss (mL): minimal Description of Procedure: PT is a 57 yo F with multiple medical problems who fell in early October and sustained an open ankle fracture. At an OSH she underwent several washouts, external fixation and ORIF. Her anteromedial wound has not healed. She has had a difficult post operative course that was complicated by c diff and inability to remain NWB LLE. She presented to my office last Friday for a second opinion of BKA vs Limb salvage. After extensive discussion with the patient about the high risk she is for limb loss and what the potential course of limb salvage would be. She agreeed to proceed with limb salvage. She was sent from my office to the ER at [facility] for medical evaluation as she was febrile and shivering in clinic. She was admitted and after informed consent was given we proceeded to the the OR today for Left ankle washout, debridement of soft tissue and bone biopsy. Patient was again seen in the pre- operative area. All risks, complications and alternatives were discussed with the patient. sHe wishes to proceed with the proposed surgery. On December patient was visually and verbally identified in the pre operative holding area. Consent was again reviewed.The left lower extremity was marked as the correct operative leg. The patient was brought to the operating roomand placed on the operating table in normal supine position. After the patient was comfortably sedated by anesthesia a time out was performed and all present were in agreement. The Left lower leg was prepped in the normal sterile fashion. At this time attention was directed to the left anteromedial wound, it was noted to be 9 cm x 6 cm and deep to exposed tibia. The TA tendon was exposed and intact, and surrounded by hypergranular tissue and slight maceration to the wound edges. the erythema and edema had mildly improved since clinic. Using a combination of #15 blade and curettes the wound was sharply excisionally debrided to remove on non-viable and necrotic tissue. Good bleeding tissue was observed. 3L of NSS was used as pulse lavage in the ankle joint and wound. Using a jamshidi needle a bone biopsy was obtained of the left distal tibia of bone that was not exposed and instead accessed through the ankle joint. This was sent for both pathology and micro. Using a fresh jamshidi bone biopsy was then obtained of the left talus and again sent for pathology and micro. Under fluoroscopy the distal fibula fracture fragment was noted as it has loosened hardware and a bent plate., a fresh jamshidi needle was again used for a bone biopsy and sent to pathology and micro. This alllowed for no cross contamination of the specimens. Next the medial malleolar fragment was located on fluoroscopy, using a #15 blade and ronguers this piece was partially excised and sent for pathology and micro. The ankle was then again flushed with NSS. Electrocautery was used to control all bleeders. the wound was dressed with betadine soaked guaze, DSD with a well padded anterior ankle, kerlix and light compression with an macario bandage. The patient's pneumatic cam walker was reapplied. Pt tolerated the procedure and anesthesia well. She was transported by myself and a member of the anesthesia team to the PACU with AVSS and cap refill to all digits of the LLE < 3 seconds. PT will remain in-house for further medical evaluation and iv abx as we await the intraoperative pathology and cultures. PT is to remain in cam walker at all times with strict NWB LLE. Continue QD to BID dressings changes of betadine soaked 4x4, DSD, kerlix and light compression. At the end of the case all needle, sponge and instrument counts were found to be correct. - Admit VTE Documentation VTE Present on Admission: No VTE Pharm Prophylaxis ordered?: Yes 01/20/18 1118 <Electronically signed by Candi [place] DPM> Date Candi [place] DPM CC: NORA [place]; Jose Robbins MD; Pia Newton MD; Juan Tavarez MD; Ying Bejarano MD Signed Observed: 01/20/2018 Status: F Source: ANA CULTURE, DEEP WOUND 10:56 AM [facility] REPOSITORY Order Date: 10/30/16 #4 BONE:LEFT DISTAL FIBULA Comments: BONE BX LEFT DISTAL FIBULA Gram Stain Gram Stain Rare White Blood Cells No organisms seen Wound Culture Copy of report sent to Infection Control Printer [id number] 01/22/18 0873 ROBIN. ORGANISM 1: Meth. resistant Staph. aureus Amount Growth 1+ Meth. resistant Staph. aureus: REACTION Benzylpenicillin NF >=0.5 R Cefoxitin *NF + Clindamycin $$ >=8 R Inducable Clindamycin Resistan - Erythromycin $ >=8 R Gentamicin $ <=0.5 S Levofloxacin $ >=8 R Linezolid $$$$ 2 S Oxacillin NF >=4 R Tigecycline $$$$ 0.25 S Rifampin $$ <=0.5 S Tetracycline NF 2 S Trimethoprim/Sulfametho $ <=10 S Vancomycin $ <=0.5 S (NF) indicates non-formulary drug at [facility]. Approval by Infectious Disease Specialist required before non-formulary drugs may be ordered and/or dispensed. * CLSI guidelines does not recommend testing of cephalosporins. This interpretation is deduced from Beta-lactam/penicillin results. Cult, Anaerobic No anaerobic bacteria isolated. Performed By: #### M100.1500 #### [facility] [address] [place], [address] AF[employer] Observed: 01/20/2018 Status: F Source: ANA CULT/SMEAR [id number] 10:56 AM [facility] REPOSITORY Comments: BONE BX LEFT DISTAL FIBULA Is this test to exclude patient from TB Isolation? N #4 BONE:LEFT DISTAL FIBULA AFB Smear/Fluor TESTING PERFORMED AT [facility]. ORIGINAL REPORT ON FILE IN LAB CONTAINS ADDITIONAL TEST SITE INFORMATION. Smear, Acid Fast Tissue Grinding Smear: Negative AFB Cult TESTING PERFORMED AT [facility]. ORIGINAL REPORT ON FILE IN LAB CONTAINS ADDITIONAL TEST SITE INFORMATION. Culture, Acid Fast NO ACID-FAST BACILLI ISOLATED AFTER 6 WEEKS. Performed By: #### M100.3880, M600.1900 #### [facility] [address] [place] [address]. [place], [address] Observed: 01/20/2018 Status: F Source: MAURI CHAMORRO W/ 10:56 [facility] [id number] [place]IT[place] Comments: BONE BX LEFT DISTAL FIBULA Is this test to exclude patient from TB Isolation? N #4 BONE:LEFT DISTAL FIBULA Cu,[id number] TESTING PERFORMED AT [facility]. ORIGINAL REPORT ON FILE IN LAB CONTAINS ADDITIONAL TEST SITE INFORMATION. CUF No yeast or mold isolated after [address] TESTING PERFORMED AT [facility]. ORIGINAL REPORT ON FILE IN LAB CONTAINS ADDITIONAL TEST SITE INFORMATION. Fungus Stain No yeast or mold observed. Performed By: #### M100.3880, M600.1900 #### [facility] [address], [address] Observed: 01/20/2018 Status: F Source: GANTT CULTURE, DEEP WOUND 10:55 AM [facility] REPOSITORY Order Date: 10/30/16 #3 BONE:LEFT MEDIAL MALLEOLUS Comments: BONE BX LEFT MEDIAL MALLEOLUS Gram Stain Gram Stain No White Blood Cells No organisms seen Wound Culture #2 There are no CLSI standards for interpretation of this Drug/Organism combination. Copy of report sent to Infection Control Printer [id number] 01/23/18 0840 DCANNON. ORGANISM 1: Meth. resistant Staph. aureus Amount Growth Very Rare ORGANISM 2: Corynebacterium striatum Amount Growth 1+ ORGANISM 3: Staphylococcus epidermidis Amount Growth Rare Meth. resistant Staph. aureus: REACTION Benzylpenicillin NF >=0.5 R Cefoxitin *NF + Clindamycin $$ >=8 R Inducable Clindamycin Resistan - Erythromycin $ >=8 R Gentamicin $ <=0.5 S Levofloxacin $ >=8 R Linezolid $$$$ 2 S Oxacillin NF >=4 R Tigecycline $$$$ 0.25 S Rifampin $$ <=0.5 S Tetracycline NF 2 S Trimethoprim/Sulfametho $ <=10 S Vancomycin $ 1 S (NF) indicates non-formulary drug at [facility]. Approval by Infectious Disease Specialist required before non-formulary drugs may be ordered and/or dispensed. * CLSI guidelines does not recommend testing of cephalosporins. This interpretation is deduced from Beta-lactam/penicillin results. Staphylococcus epidermidis: REACTION Benzylpenicillin NF >=0.5 R Cefoxitin *NF - Clindamycin $$ >=8 R Inducable Clindamycin Resistan - Erythromycin $ >=8 R Gentamicin $ <=0.5 S Levofloxacin $ >=8 R Linezolid $$$$ 1 S Oxacillin NF <=0.25 S Tigecycline $$$$ <=0.12 S Rifampin $$ <=0.5 S Tetracycline NF >=16 R Vancomycin $ 1 S (NF) indicates non-formulary drug at [facility]. Approval by Infectious Disease Specialist required before non-formulary drugs may be ordered and/or dispensed. * CLSI guidelines does not recommend testing of cephalosporins. This interpretation is deduced from Beta-lactam/penicillin results. Cult, Anaerobic No anaerobic bacteria isolated. Performed By: #### M100.1500 #### [facility] [address] [place], [address] AFB Observed: 01/20/2018 Status: F Source: ANA CULT/SMEAR [id number] 10:55 AM [facility] REPOSITORY Comments: BONE BX LEFT MEDIAL MALLEOLUS Is this test to exclude patient from TB Isolation? N #3 LEFT MEDIAL MALLEOLUS AFB Smear/Fluor TESTING PERFORMED AT [facility]. ORIGINAL REPORT ON FILE IN LAB CONTAINS ADDITIONAL TEST SITE INFORMATION. Smear, Acid Fast Tissue Grinding Smear: Negative AFB Cult TESTING PERFORMED AT [facility]. ORIGINAL REPORT ON FILE IN LAB CONTAINS ADDITIONAL TEST SITE INFORMATION. Culture, Acid Fast NO ACID-FAST BACILLI ISOLATED AFTER 6 WEEKS. Performed By: #### M100.3880, M6.0 #### [facility] [address] [place], [address] Observed: 01/20/2018 Status: F Source: ANA ESCALONA FUNGUS W/ 10:55 [facility] [id number] REPOSITORY Comments: BONE BX LEFT MEDIAL MALLEOLUS Is this test to exclude patient from TB Isolation? N #3 LEFT MEDIAL MALLEOLUS Cu,[id number] TESTING PERFORMED AT [facility]. ORIGINAL REPORT ON FILE IN LAB CONTAINS ADDITIONAL TEST SITE INFORMATION. CUF No yeast or mold isolated after [address] TESTING PERFORMED AT [facility]. ORIGINAL REPORT ON FILE IN LAB CONTAINS ADDITIONAL TEST SITE INFORMATION. Fungus Stain No yeast or mold observed. Performed By: #### M100.3880, M600.0 #### [facility] [address] [place], [address] Observed: 01/20/2018 Status: F Source: ANA CULTURE, DEEP WOUND 10:53 AM [facility] REPOSITORY Order Date: 10/30/16 #2 BONE:LEFT TALUS Comments: BONE BX LEFT TALUS Gram Stain Gram Stain No organisms seen No cells seen Wound Culture No growth aerobically. Cult, Anaerobic No growth in 5 days. Performed By: #### M100.1500 #### [facility] [address] [place], [place], [id number] AFB Observed: 01/20/2018 Status: F Source: ANA CULT/SMEAR [id number] 10:53 AM [facility] REPOSITORY Comments: BONE BX LEFT TALUS Is this test to exclude patient from TB Isolation? N #2 BONE:LEFT TALLUS AFB Smear[facility] ORIGINAL REPORT ON FILE IN LAB CONTAINS ADDITIONAL TEST SITE INFORMATION. Smear, Acid Fast Tissue Grinding Smear: Negative AFB Cult [facility] ORIGINAL REPORT ON FILE IN LAB CONTAINS ADDITIONAL TEST SITE INFORMATION. Culture, Acid Fast NO ACID-FAST BACILLI ISOLATED AFTER 6 WEEKS. Performed By: #### M100.3880, M600.1900 #### [facility] [address] [place], [place], [address] Observed: 01/20/2018 Status: F Source: ANA CULTURE, FUNGUS W/ 10:53 AM [facility] [id number] REPOSITORY Comments: BONE BX LEFT TALUS Is this test to exclude patient from TB Isolation? N #2 BONE:LEFT TALLUS Cu,[id number] TESTING PERFORMED AT [facility]. ORIGINAL REPORT ON FILE IN LAB CONTAINS ADDITIONAL TEST SITE INFORMATION. CUF No yeast or mold isolated after [address] TESTING PERFORMED AT [facility]. ORIGINAL REPORT ON FILE IN LAB CONTAINS ADDITIONAL TEST SITE INFORMATION. Fungus Stain No yeast or mold observed. Performed By: #### M100.3880, M600.1900 #### [facility] [address] [place], [address] Observed: 01/20/2018 Status: F Source: ANA CULTURE, DEEP WOUND 10:51 AM [facility] REPOSITORY Order Date: 10/30/16 #1 DISTAL LEFT TIBIA Comments: BONE BX LEFT DISTAL TIBIA Gram Stain Gram Stain No organisms seen No cells seen Wound Culture Copy of report sent to Infection Control Printer [id number] 01/23/18 0728 DCANNON. ORGANISM 1: Meth. resistant Staph. aureus Amount Growth Very Rare Meth. resistant Staph. aureus: REACTION Benzylpenicillin NF >=0.5 R Cefoxitin *NF + Clindamycin $$ >=8 R Inducable Clindamycin Resistan - Erythromycin $ >=8 R Gentamicin $ <=0.5 S Levofloxacin $ >=8 R Linezolid $$$$ 2 S Oxacillin NF >=4 R Tigecycline $$$$ 0.5 S Rifampin $$ <=0.5 S Tetracycline NF 2 S Trimethoprim/Sulfametho $ <=10 S Vancomycin $ 1 S (NF) indicates non-formulary drug at [facility]. Approval by Infectious Disease Specialist required before non-formulary drugs may be ordered and/or dispensed. * CLSI guidelines does not recommend testing of cephalosporins. This interpretation is deduced from Beta-lactam/penicillin results. Cult, Anaerobic No growth in 5 days. Performed By: #### M100.1500 #### [facility] [address] [place], [address] AFB Observed: 01/20/2018 Status: F Source: GANTT CULT/SMEAR [id number] 10:51 AM [facility] REPOSITORY Comments: BONE BX LEFT DISTAL TIBIA Is this test to exclude patient from TB Isolation? N #1 DISTAL LEFT TIBIA AFB Smear/Fluor TESTING PERFORMED AT [facility]. ORIGINAL REPORT ON FILE IN LAB CONTAINS ADDITIONAL TEST SITE INFORMATION. Smear, Acid Fast Tissue Grinding Smear: Negative AFB Cult TESTING PERFORMED AT [facility]. ORIGINAL REPORT ON FILE IN LAB CONTAINS ADDITIONAL TEST SITE INFORMATION. Culture, Acid Fast NO ACID-FAST BACILLI ISOLATED AFTER 6 WEEKS. Performed By: #### M100.3880, M6.0 #### [facility] [address] [place], [address] Observed: 01/20/2018 Status: F Source: ANA ESCALONA FUNGUS W/ 10:51 [facility] [place] [id number] [place]POSITORY Comments: BONE BX LEFT DISTAL TIBIA Is this test to exclude patient from TB Isolation? N #1 DISTAL LEFT TIBIA Cu,[id number] TESTING PERFORMED AT [facility]. ORIGINAL REPORT ON FILE IN LAB CONTAINS ADDITIONAL TEST SITE INFORMATION. CUF No yeast or mold isolated after [address] TESTING PERFORMED AT [facility]. ORIGINAL REPORT ON FILE IN LAB CONTAINS ADDITIONAL TEST SITE INFORMATION. Fungus Stain No yeast or mold observed. Performed By: #### M100.3880, .0 #### [facility] [address] [place], [address] BEDSIDE GLUCOSE Collected: 01/20/2018 Status: F Source: ANA 6:51 AM [facility] REPOSITORY TYPE CODE TESTS RESULT OUT OF REFERENCE UNITS RANGE LAB L501.080 70-110 mg/dL High BEDSIDE GLU 120 Result Comment: MANAGEMENT OF PATIENT CARE PER NURSING PROTOCOL Performed By: #### L501.080 #### [facility] Point of Care [address] [place] [address] BASIC METABOLIC Collected: 01/20/2018 Status: F Source: ANA PROFILE (BMP) 5:10 AM [facility] REPOSITORY TYPE CODE TESTS RESULT OUT OF RANGE REFERENCE UNITS LAB L501.0100 74-106 mg/dL High GLU 117 Result Comment: Fasting Glucose result from 100 to 125 mg/dL suggests IMPAIRED HOMEOSTASIS per A.D.A. criteria. Please note revised GLUCOSE reference range effective 2017. LAB L501.1000 7-18 mg/dL High BUN 33 LAB L501.1100 0.55-1.02 mg/dL High CREAT,SERUM 1.74 Result Comment: The validity of the calculated GFR AND GFRAA in patients over 70 years has not been determined. Clinical correlation is essential. LAB L501.1110 >60 mL/min Low EST GFR 32 Result Comment: Non- GFR Calc LAB L501.1115 >60 mL/min Low EST GFR - AA 38 Result Comment: GFR Calc LAB L501.1255 ml/min Normal Estimated CRCL 32.59 LAB L501.1300 10-20 RATIO Normal BUN/CRE 19.0 LAB L501.2200 8.5-10 mg/dL Normal .1 CA 8.7 LAB L501.5300 136-14 mmol/L Normal 5 NA 137 LAB L501.5600 3.5-5. mmol/L Normal 1 K 5.0 LAB L501.5900 98-107 mmol/L Normal CL 105 LAB L501.6100 21.0-3 mmol/L Normal 2.0 CO2 23.0 LAB L501.6200 5-15 Normal GAP 9 Performed By: #### L500.2500 #### [facility] [address] [place], [place], [id number] CBC-COMPLETE BLOOD CNT Collected: 01/20/2018 Status: F Source: ANA NO DIFF 5:10 AM [facility] REPOSITORY TYPE CODE TESTS RESULT OUT OF RANGE REFERENCE UNITS LAB L100.1000 4.4-11.0 K/mm3 Normal WBC 10.2 LAB L100.1200 4.2-5.4 M/mm3 Low RBC 3.05 LAB L100.1300 12.0-15.0 g/dl Low HGB 8.4 LAB L100.1400 37-47 % Low HCT 26.6 LAB L100.1500 81-99 fL Normal MCV 87.2 LAB L100.1600 27.0-32.0 pg Normal MCH 27.5 LAB L100.1700 32-36 g/gl Low MCHC 31.6 LAB L100.1810 11.6-14.6 % High RDW CV 15.4 LAB L100.1820 35.1-43.9 fl High RDW SD 47.7 LAB L100.1900 150-450 K/mm3 High PLT 465 LAB L100.2000 6.2-12.0 fl Normal MPV 8.5 Performed By: #### L100.0500, L300.3900, L300.4310 #### [facility] [address] [place], [address] PROTHROMBIN TIME W/INR Collected: 01/20/2018 Status: F Source: ANA 5:10 AM [facility] REPOSITORY TYPE CODE TESTS RESULT OUT OF RANGE REFERENCE UNITS LAB L300.4150 11.7-14.9 SECONDS Normal PROTIME 14.1 LAB L300.4200 Normal INR 1.1 Performed By: #### L100.0500, L300.3900, L300.4310 #### [facility] [address] [place], [address] PARTIAL THROMBOPLAST Collected: 01/20/2018 Status: F Source: ANA TIME 5:10 AM [facility] REPOSITORY TYPE CODE TESTS RESULT OUT OF REFERENCE UNITS RANGE LAB L300.4310 24.1-36.2 Seconds High PTT 45.6 Performed By: #### L100.0500, L300.3900, L300.4310 #### [facility] [address] [place], [address] BONE (FX/NONFRACTURE) Observed: 01/20/2018 Status: F Source: ANA 12:00 AM [facility] REPOSITORY Patient: KANDY LAUREN : 1960 (57/F) Acct Num: [id number] Phys: Everett Hillman MD Unit Num: [id number] Loc: [facility] [id number] Specimen: [id number] Received: 01/20/18 1418 Spec Type: Bone TISSUES 1 TISSUES: A. Tibia, NOS B. Bone of ankle, NOS C. Bone of ankle, NOS D. Leg, NOS GROSS DESCRIPTION A - Received in fixative is one container labeled with the patient's name and designated left distal tibia bone biopsy. The specimen consists of a core biopsy of pérez bone measuring 0.4 cm in length and 0.1 cm in diameter. The specimen is totally submitted in one cassette after decalcification. B - Received in fixative is one container labeled with the patient's name and designated left talus bone biopsy. The specimen consists of a core biopsy of pérez bone measuring 0.5 cm in length and 0.1 cm in diameter. The specimen is totally submitted in one cassette after decalcification. C - Received in fixative is one container labeled with the patient's name and designated bone biopsy left medial malleolus. The specimen consists of two pieces of pérez-pink bone that in aggregate measure 1 x 0.7 x 0.3 cm. The entire specimen is submitted in one cassette after decalcification. D - Received in fixative is one container labeled with the patient's name and designated bone biopsy left distal fibula. The specimen consists of a core biopsy of pérez-white bone measuring 0.5 cm in length and 0.1 cm in diameter. The entire specimen is submitted in one cassette after decalcification. / JOSE LUIS:jason TC:2 CPT: 94646 x4, 26612 x4 HEADER OPERATION: Wash out, bone debridement, bone biopsy, left ankle PRE-OP DIAGNOSIS: Acute osteomyelitis, left ankle open fracture status post failed EX FIX and ORIF TISSUE SUBMITTED: A - Bone biopsy left distal tibia, B - Bone biopsy left talus , C - Bone biopsy left medial malleolus, D - Bone biopsy left distal fibula MICROSCOPIC DESCRIPTION Slides are reviewed. MICROSCOPIC DIAGNOSIS A. Left distal tibia bone, core biopsy: A piece of bone, negative for acute osteomyelitis. B. Left talus bone, core biopsy: A piece of bone, negative for acute osteomyelitis. C. Left medial malleolus bone, biopsy: Pieces of bone with chronic inflammation and reactive changes. Negative for acute osteomyelitis. D. Left distal fibula bone, core biopsy: A piece of bone with acute osteomyelitis. SJ:jason 01/23/18 Signed Sid Holloway 01/23/18 <signature on file> Performed By: #### PBON #### [facility] [address] [facility] [place], [place], [id number] BEDSIDE GLUCOSE Collected: 01/19/2018 Status: F Source: ANA 9:44 PM [facility] REPOSITORY TYPE CODE TESTS RESULT OUT OF REFERENCE UNITS RANGE LAB L501.080 70-110 mg/dL High BEDSIDE GLU 160 Result Comment: MANAGEMENT OF PATIENT CARE PER NURSING PROTOCOL Performed By: #### L501.080 #### [facility] Point of Care [address] [facility] [place], [place] [id number] BEDSIDE GLUCOSE Collected: 01/19/2018 Status: F Source: ANA 4:50 PM [facility] REPOSITORY TYPE CODE TESTS RESULT OUT OF REFERENCE UNITS RANGE LAB L501.080 70-110 mg/dL High BEDSIDE GLU 126 Result Comment: MANAGEMENT OF PATIENT CARE PER NURSING PROTOCOL Performed By: #### L501.080 #### [facility] Point of Care [address] [facility] [place], [place] [id number] Observed: 01/19/2018 Status: F Source: ANA CULTURE, BLOOD (WB) 12:55 PM [facility] REPOSITORY BC No growth in 5 days. Performed By: #### M200.1000 #### [facility] [address] [facility] [place], [place], [id number] CONSULTATION Observed: 01/19/2018 Status: F Source: ANA 12:35 PM [facility] REPOSITORY [facility] Medical Records Department [address] [place] [address] Consultation 01/19/18 1227 MR#: [id number] Acct: [id number] Name: KANDY LAUREN Rep #: [id number] : 1960 57 From: Ying Bejarano MD PCP: Pia Newton MD Status: ADM IN Y Location: [place] [id number] Problem List (1) Acute osteomyelitis involving ankle and foot Status: Acute Reason for Consult: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 mitral valve leaflet. The mitral valve chordae are thickened and/or calcified. Trivial mitral valve insufficiency. Tricuspid Valve Normal tricuspid valve. Trivial tricuspid valve insufficiency. Unable to estimate RV systolic pressure/pulmonary artery pressure due to technically difficult study. Aortic Valve Trisinus/trileaflet aortic valve. Mild diffuse aortic valve thickening. Pulmonic Valve The pulmonic valve is not well visualized. Trivial pulmonic valve insufficiency. Great Vessels Normal sized aortic root. Pericardium/Pleural No pericardial effusion. Medication Diluted definity 2ml given slow IV push to enhance endocardial definition. MMode/2D Measurements AND Calculations LVIDd: 5.5 cm IVSd: 1.2 cm LVOT diam: 2.0 cm LVIDs: 4.0 cm LVPWd: 1.1 cm LVOT area: 3.0 cm2 FS: 27.3 % Ao root diam: 3.5 cm LAV(MOD-sp4): 67.6 ml LA A4 area: 21.0 cm2 ACS: 1.7 cm RA A4 area: 16.1 cm2 Doppler Measurements AND Calculations MV E max leonor: 161.5 cm/sec Ao V2 max: 194.1 cm/sec LV V1 max: 110.8 cm/sec Ao max P.1 mmHg LV V1 max P.9 mmHg Ao V2 mean: 115.7 cm/sec LV V1 mean P.1 mmHg Ao mean P.5 mmHg LV V1 mean: 65.1 cm/sec Ao V2 VTI: 41.3 cm LV V1 VTI: 25.6 cm BONNIE(I,D): 1.9 cm2 BONNIE(V,D): 1.7 cm2 SV(LVOT): 76.5 ml PA V2 max: 102.1 cm/sec Interpretation Summary The study was technically difficult. Contrast injection was performed. Left ventricular systolic function is normal. The estimated ejection fraction is 55 %. The left atrium is mildly enlarged. There is moderate mitral annular calcification. Extension of the mitral annular calcification onto the posterior mitral valve leaflet. The mitral valve chordae are thickened and/or calcified. Trivial mitral valve insufficiency. Trivial tricuspid valve insufficiency. Mild diffuse aortic valve thickening. Trivial pulmonic valve insufficiency. Unable to estimate RV systolic pressure/pulmonary artery pressure due to technically difficult study. Unable to assess diastolic dysfunction. Ordering Physician: Darwin Lema Referring Physician: Juan Tavarez Performed By: Pa [place] RCS 01/17/18 114 Date Sravan James MD CC: Pia Newton MD; Darwin Lema MD; Juan Tavarez MD; Everett Hillman MD Date Dictated: 01/17/18 0821 Date Transcribed: 01/17/181141 Political Worker: Signed Observed: 01/17/2018 Status: C Source: GANTT STOOL OCCULT BLOOD 11:40 AM [facility]OB REPOSITORY STOB iFOB Occult Blood Positive ORGANISM 1: OCCULT BLOOD POSITIVE Performed By: #### M100.7900 #### [facility] [address] [place], [address] BEDSIDE GLUCOSE Collected: 01/17/2018 Status: F Source: ANA 11:39 AM [facility] REPOSITORY TYPE CODE TESTS RESULT OUT OF REFERENCE UNITS RANGE LAB L501.080 70-110 mg/dL High BEDSIDE GLU 163 Result Comment: MANAGEMENT OF PATIENT CARE PER NURSING PROTOCOL Performed By: #### L501.080 #### [facility] Point of Care [address] [place] [address] HISTORY AND PHYSICAL Observed: 01/17/2018 Status: F Source: ANA EXAM 8:27 AM [facility] REPOSITORY [facility] Medical Records Department [address] [place] [address] History and Physical 01/16/183 MR#: [id number] Acct: [id number] Name: KANDY LAUREN ANN Rep #: [id number] : 1960 57 From: Darwin Lema MD PCP: Pai Newton MD Status: ADM IN Y Location: [place] [address]-1 Problem List (1) Acute osteomyelitis involving ankle and foot Status: Acute (2) COPD (chronic obstructive pulmonary disease) Status: Chronic (3) Chronic renal insufficiency, stage III (moderate) Status: Chronic (4) Type 2 diabetes mellitus with foot ulcer Status: Chronic History of Present Illness Date of Admission: 01/16/18 Chief Complaint: Worsening leg wound The patient is a 57 year old F with a significant history of diabetes mellitus hypertension, and hypercholesterolemia who presents with a worsening of her leg wound. Patient had a fracture of her medial malleolus with subsequent hardware placement. Patient went to an orthopedic doctor today and was sent to the ED for admission and possible salvage of her leg. Following fracture of the medial malleolus and subsequent hardware patient was told not to bear weight on her left leg. ED doctor reported that upon conversation with orthopedic doctor probably patient was bearing weight on her left leg. Because of worsening of her leg symptoms patient went to [facility]. She was diagnosed with osteoarthritis and amputation was recommended. However patient refused amputation and sought a second opinion with [facility]. The intent was to see whether her limp could be salvaged. Orthopedic recommend the patient be admitted to the hospital; and vascular surgeon as well as infectious disease consulted. Patient reported temperature of about 100.2 at the orthopedic doctor on the same day of admission. She reports chills. She reports the pain severity is 8/10 at her left foot. Her pain is nonradiating. She describes the pain as sharp, dull and throbbing. In the past patient saw Dr. Robbins for PAD and stent was placed in her right lower extremity. At emergency department patient was noted to have anemia of 7.3 and blood transfusion was ordered. Past Medical History Past Medical History (Chronic Problems): Chronic Problems (Last Reviewed 01/16/18 @ 23:21 by Darwin Leam MD) Peripheral neuropathy (Chronic) Arthritis (Chronic) Hypertension (Chronic) High cholesterol (Chronic) Hypertension (Chronic) Hyperlipidemia (Chronic) Type 2 diabetes mellitus (Chronic) 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) Uncontrolled type 2 diabetes mellitus (Chronic) Non-pressure chronic ulcer of other part of right foot limited to breakdown of skin (Chronic) Tobacco use disorder (Chronic) Pure hypercholesterolemia (Chronic) History of hypertension (Chronic) Type 2 diabetes mellitus with diabetic polyneuropathy (Chronic) History of gout (Chronic) Obesity (Chronic) COPD (chronic obstructive pulmonary disease) (Chronic) Chronic renal insufficiency, stage III (moderate) (Chronic) Type 2 diabetes mellitus with foot ulcer (Chronic) History of diabetes mellitus, type II (Chronic) Medical History: Medical History (Last Reviewed 01/16/18 @ 23:21 by Darwin Lema MD) Arthritis (Chronic) M19.90 Hypertension (Chronic) I10 High cholesterol (Chronic) E78.00 Clostridium difficile infection B96.89 Gout M10.9 Heart disease I51.9 Inflammatory arthritis M19.90 Lupus L93.0 Rheumatoid arthritis M06.9 Diabetes E11.9 Allergies aspirin Allergy (Verified 01/13/18 15:24) Hives latex Allergy (Verified 01/13/18 15:24) Hives Penicillins Allergy (Verified 01/16/18 17:49) Hives naproxen [From Aleve] Adverse Reaction (Severe, Verified 01/13/18 15:24) Kidney disease Stage 3 Home Medications: Ambulatory Orders Medication Instructions Recorded Surgical History: Surgical History (Last Reviewed 01/16/18 @ 23:21 by Darwin Lema MD) History of carpal tunnel release Z98.890 History of hysterectomy Z98.890, Z90.710 amputation of right pinke toe history of 2 back sugeries history of right femoral stent history of right shoulder surgery Surgical History: - - The patient has a history of lumbar disc surgery 2. She is undergone total abdominal hysterectomy. She is undergone right carpal tunnel release. She has had right shoulder surgery. Patient is a Ab2, having had 2 abortions. Lives: Alone Smoking Status: Former smoker Alcohol: Rare - *Family History Maternal Family History: Family History (Last Reviewed 01/16/18 @ 23:22 by Darwin Lema MD) Mother Diabetes Hypertension CVA (cerebral vascular accident) Brother Alcoholism Sister Cancer Father Heart disease Respiratory disease History Items: - - Patient's mother at the age of 80 with a history of myocardial infarction, cerebrovascular accident, and polio Paternal Family History: Family History (Last Reviewed 01/16/18 @ 23:22 by Darwin Lema MD) Mother Diabetes Hypertension CVA (cerebral vascular accident) Brother Alcoholism Sister Cancer Father Heart disease Respiratory disease History Items: - - The patient's father at the age of 64 with a history of lung cancer. Review of Systems Constitutional: Reports: Chills, Fever. Denies: Weight Change HEENT: Denies: Head Aches, Sinus Congestion, Sinus Drainage Cardiovascular: Denies: Chest Pain, Palpitations Respiratory: Denies: Cough, Shortness of breath at rest, Sputum production Gastrointestinal: Denies: Abdominal Pain, Nausea, Vomiting Genitourinary: Denies: Dysuria Musculoskeletal: Reports: Joint Pain - Left ankle pain, Leg Pain - Left leg pain. Denies: Joint Tenderness Skin: Denies: Rash, Wounds Neurological: Denies: Numbness, Tingling, Focal weakness Psychiatric: Denies: Anxiety, Depression, Homicidal Ideations, Suicidal Ideations Hematologic/ Lymphatic: Denies: Easy Bruising, Easy Bleeding VTE Information - Inpt Only VTE Present on Admission: No VTE Mechan Device Prophylaxis: None VTE Pharm Prophylaxis ordered?: Yes Patient Problems: Active and Suspected Problems (Last Reviewed 01/16/18 @ 23:21 by Darwin Lema MD) Acute osteomyelitis involving ankle and foot (Acute) - Physical Exam General: Alert, Oriented x3, Cooperative HEENT: Atraumatic, PERRLA, EOMI, Normocephalic Neck: Supple, No JVD, Negative Carotid Bruits Lungs: Clear to auscultation, Normal air movement Cardiovascular: Regular rate, No murmurs Abdomen: Bowel Sounds Present, Soft, Non Tender Extremities: - - No palpable pulse in left foot. Skin: - - Left crater-like wound on medial malleolus with yellow pus; and swelling and redness of left foot and adjacent leg Musculoskeletal: Tenderness - Of left foot Neurological: Cranial nerves II-XII grossly intact Psych/Mental Status: Normal Affect, Appropriate Vital Signs Temp Pulse Resp BP Pulse Ox 99 F 94 18 133/55 H 97 01/16/18 17:46 01/16/18 20:46 01/16/18 20:46 01/16/18 20:46 01/16/18 20:46 Oxygen Delivery Method Room Air Weight: 99.79 kg Body Mass Index (BMI) 35.5 Laboratory Tests Past 24 Hrs WBC 11.3 H RBC 2.76 L Hgb 7.3 L Hct 23.5 L MCV 85.1 Assessment/Plan All Active Problems (Last Reviewed 01/16/18 @ 23:21 by Darwin Lema MD) Acute osteomyelitis involving ankle and foot (Acute) Decubitus ulcer of right heel, stage 3 (Acute) Infected decubitus ulcer (Acute) Blister (nonthermal), right great toe, initial encounter (Acute) Non-pressure chronic ulcer of right heel and midfoot with fat layer exposed (Acute) Non-pressure chronic ulcer of left heel and midfoot with fat layer exposed (Resolved) Diabetic foot ulcer associated with type 2 diabetes mellitus (Acute) Struck statnry object w/o fall (Acute) Non-pressure chronic ulcer of other part of right foot with fat layer exposed (Acute) Non-pressure chronic ulcer of other part of right foot with necrosis of bone (Acute) Visual disturbance (Acute) Gangrene of toe of right foot (Acute) Tobacco abuse counseling (Acute) 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 Acute osteomyelitis of left ankle. CRP severely elevated at 253. Previous diagnosis of osteomyelitis from [place] Vancomycin ordered for possible MRSA infection. Patient has hives with penicillin. Merrem ordered for Pseudomonas and other gram negatives. Infectious disease consulted to optimize management. Patient was sent to the hospital by Dr. [place]; orthopedic surgeon. Consult placed to Dr. Contreras. Patient is a known patient of Dr. Robbins, vascular surgeon. Dr. Robbins consulted. Notably patient reports stents in her right lower extremity. Review of records showed that the arterial Doppler of right lower extremity done on 08/13/2017 was unremarkable. Arterial Doppler of left lower extremity ordered. Patient noted to have drainage from left ankle. Wound culture ordered. Blood cultures ordered. Trend CBC and BMP PT/INR ordered. Wound care consult. Anemia Her hemoglobin at emergency department was 7.3. Review of old records show that her hemoglobin on 11/05/2017 was 12.6; and on 05/06/2017 her hemoglobin was 13.6. Iron studies and ferritin ordered. LDH and haptoglobin level as well as a peripheral smear ordered below. Stool for occult blood ordered. 1 unit of packed red blood cells ordered in the ED. Current diagnoses include iron deficiency anemia; inflammatory anemia; GI bleeding. CBC in a.m. Due to a very high risk of DVT heparin subcutaneous ordered. If patient continues to have low hemoglobin consider discontinue heparin. Abnormal EKG Independent review of EKG showed T wave inversion in leads V1, V2 and V3. ED doctor reported that this EKG is unchanged from previous. Patient has no complaint of any chest pain. Will order serial troponins. The plan is for patient to have surgery so will order echocardiogram at this point to assess her heart function. Patient reports that he sees Dr. James, cardiology. Diabetes mellitus Her blood glucose was within goal admission. Home hypoglycemic medication liraglutide and sitagliptin held at this time. Patient placed on correction scale insulin in the setting of getting ready for surgery. A1c ordered. Rheumatoid arthritis Continue Plaquenil. Hypertension Blood pressure fairly controlled on admission. Home lisinopril and Cardizem continued. Trend blood pressures. COPD/asthma No acute exacerbation at this time. DuoNeb as needed. Depression Amitriptyline continued Gout allopurinol continued DVT prophylaxis Patient started on heparin subcutaneous because of her very high risk of DVT. If hemoglobin continues to drop please consider discontinuing heparin. Code Visit Inpatient Rinku GORE M: [id number] Init Hosp L3 01/17/1827 <Electronically signed by Darwin Lema MD> Date Darwin Lema MD Cosigner Signature: Date (if applicable) CC: Pia Newton MD; Darwin Lema MD Signed BEDSIDE GLUCOSE Collected: 01/17/2018 Status: F Source: GANTT 6:58 AM [facility] REPOSITORY TYPE CODE TESTS RESULT OUT OF REFERENCE UNITS RANGE LAB L501.080 70-110 mg/dL High BEDSIDE GLU 120 Result Comment: MANAGEMENT OF PATIENT CARE PER NURSING PROTOCOL Performed By: #### L501.080 #### [facility] Point of Care [address] [place] [address]. [place], [place] [address] HH, HEMOGLOBIN AND Collected: 01/17/2018 Status: F Source: GANTT HEMATOCRIT 6:28 AM [facility] REPOSITORY TYPE CODE TESTS RESULT OUT OF RANGE REFERENCE UNITS LAB L100.1300 12.0-15.0 g/dl Low HGB 8.5 LAB L100.1400 37-47 % Low HCT 27.3 Performed By: #### L100.0600 #### [facility] [address] [place], [place], [address] HEMOGLOBIN A1C Collected: 01/17/2018 Status: F Source: ANA 6:28 AM [facility] REPOSITORY TYPE CODE TESTS RESULT OUT OF RANGE REFERENCE UNITS LAB L501.9985 4.2-6.3 % Normal HGB A1C 6.1 Performed By: #### L501.9985 #### [facility] [address] [place], [address] TROPONIN-I Collected: 01/17/2018 Status: F Source: GANTT 2:58 AM [facility] REPOSITORY Order Comment: 'TROP' Serial specimen #1, #2 or #3: 3 'TROP' Serial specimen #1, #2, #3, or #4: 3 TYPE CODE TESTS RESULT OUT OF RANGE REFERENCE UNITS LAB L501.4010 <0.045 ng/mL Normal < 0.015 TROPONIN-I Result Comment: TROPONIN-I EXPECTED VALUES <0.045 Negative 0.045 - 0.590 Consistent with Cardiac Damage > OR = 0.600 Critical Value Not every elevated troponin is indicative of VT. These values should be used with clinical judgement in examining the patient's clinical picture for diagnosis. To establish a diagnosis of VT versus myocardial injury, there must be a demonstrated rise and/or fall in the troponin values, in addition to ischemic symptoms, EKG changes, new regional wall motion abnormality, and/or angiographical evidence. PLEASE NOTE: REFERENCE RANGES EDITED 17 Performed By: #### L501.4010 #### [facility] [address] [place], [address] BASIC METABOLIC Collected: 01/17/2018 Status: F Source: ANA PROFILE ([facility]) 2:58 AM [facility] REPOSITORY TYPE CODE TESTS RESULT OUT OF RANGE REFERENCE UNITS LAB L501.0100 74-106 mg/dL High GLU 167 Result Comment: Fasting Glucose result greater than or equal to 126 mg/dL suggests DIABETES MELLITUS per A.D.A. criteria. Please note revised GLUCOSE reference range effective 2017. LAB L501.1000 7-18 mg/dL High BUN 34 LAB L501.1100 0.55-1.02 mg/dL High CREAT,SERUM 1.62 Result Comment: The validity of the calculated GFR AND GFRAA in patients over 70 years has not been determined. Clinical correlation is essential. LAB L501.1110 >60 mL/min Low EST GFR 35 Result Comment: Non- GFR Calc LAB L501.1115 >60 mL/min Low EST GFR - AA 42 Result Comment: GFR Calc LAB L501.1255 ml/min Normal Estimated CRCL 35.00 LAB L501.1300 10-20 RATIO High BUN/CRE 21.0 LAB L501.2200 8.5-10 mg/dL Normal .1 CA 8.8 LAB L501.5300 136-14 mmol/L Normal 5 NA 137 LAB L501.5600 3.5-5. mmol/L Normal 1 K 4.1 LAB L501.5900 98-107 mmol/L Normal CL 104 LAB L501.6100 21.0-3 mmol/L Normal 2.0 CO2 22.0 LAB L501.6200 5-15 Normal GAP 11 Performed By: #### L500.2500 #### [facility] [address] [place], [place], [id number] CBC W/DIFF, AUTOMATED Collected: 01/17/2018 Status: C Source: GANTT 2:58 AM [facility] REPOSITORY TYPE CODE TESTS RESULT OUT OF RANGE REFERENCE UNITS LAB L100.1000 4.4-11.0 K/mm3 Normal WBC 10.2 LAB L100.1200 4.2-5.4 M/mm3 Low RBC 2.83 LAB L100.1300 12.0-15.0 g/dl Low HGB 7.5 LAB L100.1400 37-47 % Low HCT 24.3 LAB L100.1500 81-99 fL Normal MCV 85.9 LAB L100.1600 27.0-32.0 pg Low MCH 26.5 LAB L100.1700 32-36 g/gl Low MCHC 30.9 LAB L100.1810 11.6-14.6 % High RDW CV 15.9 LAB L100.1820 35.1-43.9 fl High RDW SD 50.2 LAB L100.1900 150-450 K/mm3 Normal PLT 411 LAB L100.2000 6.2-12.0 fl Normal MPV 8.3 LAB L100.2100 47-70 % Normal NEUT% 65.9 LAB L100.2200 19-41 % Normal LY% 22.2 LAB L100.2300 0-10 % Normal MONO% 8.7 LAB L100.2400 0-5 % Normal EO% 1.6 LAB L100.2500 0-1 % Normal BASO% 0.4 LAB L100.2550 0.0-0.9 % High IM GRAN % 1.200 Result Comment: IG% - Immature Granulocytes (promyelocytes, myelocytes and metamyelocytes) > 1% indicates that a LEFT SHIFT is Present. LAB L100.2620 2.0-7.7 X10 3/uL Normal Absolute Neut 6.7 LAB L100.2720 0.83-4.51 X10 3/ul Normal Absolute Lymph 2.26 LAB L100.9900 Normal PATH REV Reviewed Result Comment: Normocytic anemia. Clinical correlation necessary. Sid Holloway M.D. 01/20/18 AMENDED REPORT 01/20/18 1509 PATH REV previously reported as: July Performed By: #### L100.0100 #### [facility] [address] [place], [place], [address] TROPONIN-I Collected: 01/16/2018 Status: F Source: GANTT 11:55 PM [facility] REPOSITORY Order Comment: 'TROP' Serial specimen #1, #2 or #3: 2 'TROP' Serial specimen #1, #2, #3, or #4: 2 Serial Specimen #1, #2 or #3? 1 Is Patient Taking Vitamins or Folic Acid Supplements? N TYPE CODE TESTS RESULT OUT OF RANGE REFERENCE UNITS LAB L501.4010 <0.045 ng/mL Normal < 0.015 TROPONIN-I Result Comment: TROPONIN-I EXPECTED VALUES <0.045 Negative 0.045 - 0.590 Consistent with Cardiac Damage > OR = 0.600 Critical Value Not every elevated troponin is indicative of VT. These values should be used with clinical judgement in examining the patient's clinical picture for diagnosis. To establish a diagnosis of VT versus myocardial injury, there must be a demonstrated rise and/or fall in the troponin values, in addition to ischemic symptoms, EKG changes, new regional wall motion abnormality, and/or angiographical evidence. PLEASE NOTE: REFERENCE RANGES EDITED 17 Performed By: #### L501.4010, L503.6030, L503.6550, L504.2610, L506.0250 #### [facility] [address] [place], [address] IRON+IRON BINDING Collected: 01/16/2018 Status: F Source: [facility] 11:55 PM [facility] REPOSITORY Order Comment: 'TROP' Serial specimen #1, #2 or #3: 2 'TROP' Serial specimen #1, #2, #3, or #4: 2 Serial Specimen #1, #2 or #3? 1 Is Patient Taking Vitamins or Folic Acid Supplements? N TYPE CODE TESTS RESULT OUT OF REFERENCE UNITS RANGE LAB L503.6075 250-450 ug/dL Low TIBC 111 LAB L503.6150 50-170 ug/dL Low IRON 12 LAB L503.6250 15.0-55.0 % Low IRON SATURATION 10.8 Performed By: #### L501.4010, L503.6030, L503.6550, L504.2610, L506.0250 #### [facility] [address] [place], [place], [address] (371) FERRITIN Collected: 01/16/2018 Status: F Source: [facility]TT 11:55 [facility] REPOSITORY Order Comment: 'TROP' Serial specimen #1, #2 or #3: 2 'TROP' Serial specimen #1, #2, #3, or #4: 2 Serial Specimen #1, #2 or #3? 1 Is Patient Taking Vitamins or Folic Acid Supplements? N TYPE CODE TESTS RESULT OUT OF REFERENCE UNITS RANGE LAB L503.6550 8-252 ng/mL High FERRITIN 1009 Performed By: #### L501.4010, L503.6030, L503.6550, L504.2610, L506.0250 #### [facility] [address] [place], [address] LDH Collected: 01/16/2018 Status: F Source: [facility] 11:55 [facility] REPOSITORY Order Comment: 'TROP' Serial specimen #1, #2 or #3: 2 'TROP' Serial specimen #1, #2, #3, or #4: 2 Serial Specimen #1, #2 or #3? 1 Is Patient Taking Vitamins or Folic Acid Supplements? N TYPE CODE TESTS RESULT OUT OF RANGE REFERENCE UNITS LAB L504.2610 84-246 U/L Normal LDH 132 Performed By: #### L501.4010, L503.6030, L503.6550, L504.2610, L506.0250 #### [facility] [address] [place], [address] FOLATES, (FOLIC ACID) Collected: 01/16/2018 Status: F Source: ANA 11:55 PM [facility] REPOSITORY Order Comment: 'TROP' Serial specimen #1, #2 or #3: 2 'TROP' Serial specimen #1, #2, #3, or #4: 2 Serial Specimen #1, #2 or #3? 1 Is Patient Taking Vitamins or Folic Acid Supplements? N TYPE CODE TESTS RESULT OUT OF RANGE REFERENCE UNITS LAB L506.0250 3.1-55.4 ng/mL Normal FOLATES 20.00 Performed By: #### L501.4010, L503.6030, L503.6550, L504.2610, L506.0250 #### [facility] [address] [place], [address] LACTIC ACID Collected: 01/16/2018 Status: F Source: ANA 11:45 PM [facility] REPOSITORY Order Comment: Yes/No query for Sepsis Lactate Rule Y TYPE CODE TESTS RESULT OUT OF RANGE REFERENCE UNITS LAB L503.6005 0.4-2.0 mmol/L Normal LACTIC ACID 0.8 Performed By: #### L503.6005 #### [facility] [address] [place], [address] Observed: 01/16/2018 Status: F Source: ANA CULTURE, BLOOD (WB) 11:45 PM [facility] REPOSITORY Has pt arrived? Y BC No growth in 5 days. Performed By: #### M200.1000 #### [facility] [address] [place], [address] Observed: 01/16/2018 Status: F Source: AAN CULTURE, WOUND 11:15 PM [facility] REPOSITORY Interface Comments: L Ankle Comments: Left ankle. Gram Stain Gram Stain 1+ Red Blood Cells 1+ White Blood Cells No organisms seen Wound Culture RESULTS CALLED TO A GLASS 01/19/18 Osvaldo Winston. REPORT READ BACK BY TABITHA. Copy of report sent to Infection Control Printer [id number] 01/19/18 0904 ROBIN. ORGANISM 1: Meth. resistant Staph. aureus Amount Growth 2+ Meth. resistant Staph. aureus: REACTION Benzylpenicillin NF >=0.5 R Cefoxitin *NF + Clindamycin $$ >=8 R Inducable Clindamycin Resistan - Erythromycin $ >=8 R Gentamicin $ <=0.5 S Levofloxacin $ >=8 R Linezolid $$$$ 2 S Oxacillin NF >=4 R Tigecycline $$$$ 0.5 S Rifampin $$ <=0.5 S Tetracycline NF 2 S Trimethoprim/Sulfametho $ <=10 S Vancomycin $ 1 S (NF) indicates non-formulary drug at [facility]. Approval by Infectious Disease Specialist required before non-formulary drugs may be ordered and/or dispensed. * CLSI guidelines does not recommend testing of cephalosporins. This interpretation is deduced from Beta-lactam/penicillin results. Performed By: #### M100.1400 #### [facility] [address] [facility] [place] [place], [address] EMERGENCY DEPARTMENT Observed: 01/16/2018 Status: F Source: GANTT SUMMARY 9:47 PM [facility] REPOSITORY [facility] Medical Records Department [address] [place] [address] Emergency Department Summary 01/16/18 2144 MR#: [id number] Acct: [id number] Name: KANDY LAUREN ANN Rep #: [id number] : [id number] 57 From: Juan Tavarez MD PCP: Pia Newton MD Status: REG ER - ER Visit Summary Date of Service: 01/16/18 Chief Complaint: Infection and pain of left ankle. History of Present Illness: The patient is a 57 F who was sent for hospital admission and medical clearance by orthopedics. The patient has a history of an open left ankle fracture on November 07. She was transferred [facility]. She underwent surgery and did ORIF. She developed osteomyelitis. She was transferred back to [facility] where a below the knee amputation was recommended. The patient refused this. She was discharged yesterday and saw was to orthopedics today for second opinion. They do feel that they may be able to do a limb salvage surgery. Patient was sent for hospitalization of medical clearance. Physical Examination: Afebrile heart rate 101 vitals otherwise unremarkable Heart regular rhythm slightly tachycardic Lungs clear Abdomen soft Patient has open wounds of the medial and lateral left ankle with foul odor and purulent discharge. She is able to plantar and dorsiflex she has brisk capillary refill and her sensation is intact to light touch Test Results: EKG shows sinus rhythm at a rate of [address]-T wave changes. ESR 69. CRP 253. Labs notable for white blood cell count 11.3. Hemoglobin is 7.3. BUN 36 with creatinine 1.76. Chest x-ray shows cardiomegaly and probable early CHF. Ankle x-ray shows medial malleolus fracture with dislocation and osseous destruction consistent with osteomyelitis there is soft tissue swelling and ulceration. Emergency Department Course and Treatment: Patient was consented and will be transfused 1 unit of packed red blood cells for anemia. Patient was discussed with the hospitalist and will be admitted. Treatment Plan: [] Disposition: Admit Impression: Osteomyelitis left ankle Anemia This note was generated with Thounds dictation software. It may contain incorrect words, spelling, and punctuation that were not noted in review of the chart prior to signing ED Disposition - Plan for ED Patient: Chief Complaint: Lower Extremity Injury Referrals: Pia Newton MD [Primary Care Provider] - What to do if you have Problems For any increased pain, shortness of breath, bleeding, nausea or vomiting, chest pain, or any unexpected problems, contact your Primary Care Provider. Call [facility] ([phone]) or report to the closest Emergency Room. Call 911 if necessary. 01/16/18 7826 <Electronically signed by Juan Tavarez MD> Date Juan Tavarez MD Cosigner Signature (If Indicated): Date CC: Pia Newton MD TYPE AND SCREEN Collected: 01/16/2018 Status: F Source: [facility]ANTT 9:30 PM [facility] REPOSITORY Order Comment: CMV NEG? N Number of units to transfuse: 1 Reason for Ordering Blood: Chronic Are the blood/blood products to be transfused? Y Is the patient having/had surgery? N Give When? When Ready Irradiated? N Leukodepleted? Y TYPE CODE TESTS RESULT OUT OF RANGE REFERENCE UNITS LAB B10.0800 O Normal BLOOD TYPE GEL NEGATIVE LAB B100.4000 Normal Antibody NEGATIVE Screen Performed By: #### B101.7450 #### [facility] [address] [place], [address] Collected: 01/16/2018 Status: F Source: GANTT 9:30 PM [facility] REPOSITORY TYPE CODE TESTS RESULT OUT OF REFERENCE UNITS RANGE LAB U100.0000 [id number] TRANSFUSED PRODUCT: T AND S with Crossmatch, Red Cells COUNT: 1 Performed By: #### U100.0000 #### [facility] - refer to report for specific site CBC W/DIFF, AUTOMATED Collected: 01/16/2018 Status: F Source: GANTT 7:40 PM [facility] REPOSITORY TYPE CODE TESTS RESULT OUT OF RANGE REFERENCE UNITS LAB L100.1000 4.4-11.0 K/mm3 High WBC 11.3 LAB L100.1200 4.2-5.4 M/mm3 Low RBC 2.76 LAB L100.1300 12.0-15.0 g/dl Low HGB 7.3 LAB L100.1400 37-47 % Low HCT 23.5 LAB L100.1500 81-99 fL Normal MCV 85.1 LAB L100.1600 27.0-32.0 pg Low MCH 26.4 LAB L100.1700 32-36 g/gl Low MCHC 31.1 LAB L100.1810 11.6-14.6 % High RDW CV 16.1 LAB L100.1820 35.1-43.9 fl High RDW SD 49.8 LAB L100.1900 150-450 K/mm3 Normal PLT 400 LAB L100.2000 6.2-12.0 fl Normal MPV 8.0 LAB L100.2100 47-70 % Normal NEUT% 67.2 LAB L100.2200 19-41 % Normal LY% 20.0 LAB L100.2300 0-10 % High MONO% 10.3 LAB L100.2400 0-5 % Normal EO% 1.1 LAB L100.2500 0-1 % Normal BASO% 0.4 LAB L100.2550 0.0-0.9 % High IM GRAN % 1.000 Result Comment: IG% - Immature Granulocytes (promyelocytes, myelocytes and metamyelocytes) > 1% indicates that a LEFT SHIFT is Present. LAB L100.2620 2.0-7.7 X10 3/uL Normal Absolute Neut 7.6 LAB L100.2720 0.83-4.51 X10 3/ul Normal Absolute Lymph 2.26 Performed By: #### L100.0100, L101.9900 #### [facility] [address] [facility] [place], [place], [address] ERYTHROCYTE SED RATE Collected: 01/16/2018 Status: F Source: GANTT 7:40 PM [facility] REPOSITORY TYPE CODE TESTS RESULT OUT OF RANGE REFERENCE UNITS LAB L102.0000 0-30 mm/hr High SED RATE 69 Performed By: #### L100.0100, L101.9900 #### [facility] [address] [facility] [place] [place], [address] BASIC METABOLIC Collected: 01/16/2018 Status: F Source: GANTT PROFILE (BMP) 7:40 PM [facility] REPOSITORY Order Comment: 'TROP' Serial specimen #1, #2, #3, or #4: 1 TYPE CODE TESTS RESULT OUT OF RANGE REFERENCE UNITS LAB L501.0100 74-106 mg/dL High GLU 141 Result Comment: Fasting Glucose result greater than or equal to 126 mg/dL suggests DIABETES MELLITUS per A.D.A. criteria. Please note revised GLUCOSE reference range effective 2017. LAB L501.1000 7-18 mg/dL High BUN 36 LAB L501.1100 0.55-1.02 mg/dL High CREAT,SERUM 1.76 Result Comment: The validity of the calculated GFR AND GFRAA in patients over 70 years has not been determined. Clinical correlation is essential. LAB L501.1110 >60 mL/min Low EST GFR 31 Result Comment: Non- GFR Calc LAB L501.1115 >60 mL/min Low EST GFR - AA 38 Result Comment: GFR Calc LAB L501.1255 ml/min Normal Estimated CRCL 32.22 LAB L501.1300 10-20 RATIO High BUN/CRE 20.5 LAB L501.2200 8.5-10 mg/dL Normal .1 CA 8.6 LAB L501.5300 136-14 mmol/L Normal 5 NA 137 LAB L501.5600 3.5-5. mmol/L Normal 1 K 4.2 LAB L501.5900 98-107 mmol/L Normal CL 106 LAB L501.6100 21.0-3 mmol/L Normal 2.0 CO2 23.0 LAB L501.6200 5-15 Normal GAP 8 Performed By: #### L500.2500, L501.6710, L501.4010 #### [facility] [address] [place], [place], [id number] CRP Collected: 01/16/2018 Status: F Source: GANTT 7:40 PM [facility] REPOSITORY Order Comment: 'TROP' Serial specimen #1, #2, #3, or #4: 1 TYPE CODE TESTS RESULT OUT OF RANGE REFERENCE UNITS LAB L501.6710 0.0-3.0 mg/L High 253.00 C-REACTIVE PROT Result Comment: C-Reactive Protein (CRP) provides useful information for the diagnosis, therapy and monitoring of inflammatory processes and associated diseases. For the evaluation of Relative Risk for Cardiovascular Disease, a High Sensitivity CRP (HSCRP) should be ordered. Performed By: #### L500.2500, L501.6710, L501.4010 #### [facility] [address] [place], [place], [id number] TROPONIN-I Collected: 01/16/2018 Status: F Source: GANTT 7:40 PM [facility] REPOSITORY Order Comment: 'TROP' Serial specimen #1, #2, #3, or #4: 1 TYPE CODE TESTS RESULT OUT OF RANGE REFERENCE UNITS LAB L501.4010 <0.045 ng/mL Normal < 0.015 TROPONIN-I Result Comment: TROPONIN-I EXPECTED VALUES <0.045 Negative 0.045 - 0.590 Consistent with Cardiac Damage > OR = 0.600 Critical Value Not every elevated troponin is indicative of VT. These values should be used with clinical judgement in examining the patient's clinical picture for diagnosis. To establish a diagnosis of VT versus myocardial injury, there must be a demonstrated rise and/or fall in the troponin values, in addition to ischemic symptoms, EKG changes, new regional wall motion abnormality, and/or angiographical evidence. PLEASE NOTE: REFERENCE RANGES EDITED 17 Performed By: #### L500.2500, L501.6710, L501.4010 #### [facility] [address] [place], [address] CHEST PA AND LATERAL Observed: 01/16/2018 Status: F Source: GANTT 6:24 PM [facility] REPOSITORY [facility] Imaging Services [address] [place] [address] Chest PA and Lateral MR#: [id number] Acct: [id number] Name: MJJUAN Rep #: [id number] : 1960 F 57 From: Rodger Torres DO PCP: Pia Newton MD Status: REG ER Study: Chest PA and Lateral Date of Exam: 01/16/18 Exam# [id number] Ordering Dr: Juan Tavarez MD STUDY: X-RAY CHEST REASON FOR EXAM: Female, 57 years old. Cough. TECHNIQUE: PA and lateral views of the chest. # of Images: 2 COMPARISON: 10/19/2012 FINDINGS: Interstitial prominence is noted throughout suggesting pulmonary edema. There is no demonstrated pleural abnormality. There is mild cardiac enlargement. Normal mediastinum and josie. Normal visualized pulmonary arteries. Normal visualized aortic arch and descending thoracic aorta. Normal visualized thoracic spine. Normal visualized ribs, clavicles, and shoulders. There is no demonstrated abnormality of the visualized soft tissue structures of the upper abdomen. RAD/Chest PA and Lateral IMPRESSION: Mild cardiomegaly and probable early pulmonary edema/CHF Electronically Signed: Rodger Torres DO at 19:20 EDT Tel , Service support , CC: Pia Newton MD; Juan Tavarez MD Political Worker: Signed ANKLE MIN 3 VIEWS Observed: 01/16/2018 Status: F Source: GANTT 6:24 PM [facility] REPOSITORY [facility] Imaging Services [address] [place] [address] Ankle min 3 Views MR#: [id number] Acct: [id number] Name: KANDY LAUREN ANN Rep #: [id number] : 1960 F 57 From: Rodger Torres DO PCP: Pia Newton MD Status: REG ER Study: Ankle min 3 Views Date of Exam: 01/16/18 Exam# [id number] Ordering Dr: Juan Tavarez MD STUDY: X-RAY - LEFT ANKLE REASON FOR EXAM: Female, 57 years old. Left ankle pain. Possible skin infection TECHNIQUE: 3 view(s) of the ankle. # of Images: 3 COMPARISON: None. FINDINGS: Extensive plate and screw fixation of the ankle is noted. However, there is ankle mortise dislocation with medial malleolus fracture. Hardware appears intact. There is some healing of distal fibular fracture however, there appears to be osseous destruction which could represent infectious process such as osteomyelitis. This appears to involve the distal fibula as well as the lateral aspect of the distal tibia. Extensive soft tissue swelling. Soft tissue ulceration is noted. RAD/Ankle min 3 Views IMPRESSION: Medial malleolus fracture with ankle mortise dislocation. Osseous destruction suggesting osteomyelitis. Extensive soft tissue swelling with soft tissue ulceration. Electronically Signed: Rodger Torres DO at 19:21 EDT Tel , Service support , CC: Pia Newton MD; Juan Tavarez MD Political Worker: Signed HAPTOGLOBIN Collected: 01/16/2018 Status: F Source: GANTT 7:15 AM [facility] REPOSITORY TYPE CODE TESTS RESULT OUT OF REFERENCE UNITS RANGE LAB L3100.1850 34-200 mg/dL High HAPTOGLOB 1628 557 Result Comment: Performed at: [facility] [id number] Operations Business Partner: Maninder Recinos PhD, Phone: [phone] Performed By: #### L3100.1850 #### [facility] (refer to report for specific site) refer to report for address and phone number VITAMIN B12 Collected: 01/16/2018 Status: F Source: GANTT 7:15 AM [facility] REPOSITORY TYPE CODE TESTS RESULT OUT OF RANGE REFERENCE UNITS LAB L503.0105 211-911 pg/mL Normal Vitamin B12 578 Performed By: #### L503.0105 #### [facility] [address] [place], [place], [address] Collected: 01/14/2018 Status: F Source: [facility] 8:15 AM [facility] REPOSITORY TYPE CODE TESTS RESULT OUT OF RANGE REFERENCE UNITS LAB HGB(LOINC) 12.0-16.0 G/dL Low Hgb 7.0 LAB HCT(LOINC) 34.0-46.0 % Low Hct 21.8 Performed By: #### HH, BMP, GFR #### [place] [address] BMP Collected: 01/14/2018 Status: F Source: [facility] 8:15 AM [facility] REPOSITORY TYPE CODE TESTS RESULT OUT OF REFERENCE UNITS RANGE LAB GLU(LOINC) 70-110 mg/dL Glucose Level 95 LAB NA(LOINC) 136-145 mEq/L Sodium Level 140 LAB K(LOINC) 3.5-5.0 mEq/L Potassium Level 4.6 LAB CL(LOINC) 98-110 mEq/L Chloride 110 LAB CO2(LOINC) 22-32 mEq/L Low CO2 18 LAB EBAL(LOINC 4.0-15.0 mEq/L ) Electrolyte Balance 12.0 LAB BUN(LOINC) 8.0-22.0 mg/dL BUN High 43.0 LAB CRE(LOINC) 0.50-1.20 mg/dL Creatinine High Lvl (s) 1.90 LAB BC(LOINC) 10.0-22.0 ratio High BUN/Creatinine 22.6 Ratio LAB CA(LOINC) 8.4-10.1 mg/dL Low Calcium Lvl 8.3 Performed By: #### HH, BMP, GFR #### [facility] [address] [place] [address] .GFR Collected: 01/14/2018 Status: F Source: [facility] 8:15 AM [facility] REPOSITORY TYPE CODE TESTS RESULT OUT OF REFERENCE UNITS RANGE LAB GFRAA(LOINC ml/min/1.73 ) sqm GFR 33 Kuwaiti Result Comment: GFR Population mean for , Non- Americans Ages 20-29 = 116 mL/min/1.73 sq.m. Ages 30-39 = 107 mL/min/1.73 sq.m. Ages 40-49 = 99 mL/min/1.73 sq.m. Ages 50-59 = 93 mL/min/1.73 sq.m. Ages 60-69 = 85 mL/min/1.73 sq.m. Ages 70+ = 75 mL/min/1.73 sq.m. Chronic Kidney Disease: Less than 60 mL/min/1.73 square meters End Stage Renal Disease: Less than 15 mL/min/1.73 square meters LAB GFRNO(LOINC) ml/min/1.73sqm GFR Non- 27 Result Comment: GFR Population mean for , Non- Americans Ages 20-29 = 116 mL/min/1.73 sq.m. Ages 30-39 = 107 mL/min/1.73 sq.m. Ages 40-49 = 99 mL/min/1.73 sq.m. Ages 50-59 = 93 mL/min/1.73 sq.m. Ages 60-69 = 85 mL/min/1.73 sq.m. Ages 70+ = 75 mL/min/1.73 sq.m. Chronic Kidney Disease: Less than 60 mL/min/1.73 square meters End Stage Renal Disease: Less than 15 mL/min/1.73 square meters Performed By: #### HH, BMP, GFR #### [facility] [address] [place] [address] XR ANKLE MINIMUM 3 Observed: 01/14/2018 Status: F Source: [facility] VIEWS LEFT 7:45 AM [facility] REPOSITORY ORIGINAL XR ANKLE MINIMUM 3 VIEWS LEFT, 01/14/2018 9:00 AM INDICATION: Pain, Fall, Previous fracture, possible dislocation COMPARISON: November 2017 FINDINGS: The previously seen fibular plate is now bent in the middle, and the 4th through 6th screws have then pulled out of or have worked out of the distal tibia; the heads are no longer flush with t he fibular plate and are now protruding into soft tissues. This is most prominent at the L4 screw which is entirely withdrawn from the bone. There is new dislocation of the medial malleolus fracture. The fibular fracture is now slightly displaced, and there is hypertrophic bone formation at the previously seen fracture site and in the syndes mosis. There is prominent lateral soft tissue swelling and there is skin irregularity suggestive of laceration. There is moderate medial swelling and skin irregularity. The bone around the medial skin d efect is somewhat heterogeneous in appearance, and superimposed osteomyelitis is a possibility. IMPRESSION: 1. Interval withdrawal of multiple screws spanning the distal articulation. 2. New displacement of the previously seen medial malleolus fracture. New onset at the previously seen distal fibula fracture. 3. Medial and lateral lacerations or skin defects. Irregularity at the medial aspect of the distal RIGHT; Osteomyelitis is in the differential diagnosis. Interpreted By: Bandar Williamson MD Preliminary Report By: Bandar Williamson MD Electronically Signed By: Bandar Williamson MD Dictated Date: 01/14/2018 9:01:58 AM Prelim Date: 01/14/2018 9:01:58 AM Sign Date: 01/14/2018 9:10:39 AM RBC (PRODUCT) Collected: 01/14/2018 Status: F Source: [facility] 7:37 AM [facility] REPOSITORY TYPE CODE TESTS RESULT OUT OF REFERENCE UNITS RANGE LAB RBCPR(LOINC ) RBC Product RBC Ready Ready for Pickup Performed By: #### RBCP #### [facility] [address] [place] [address] CBC Collected: 01/14/2018 Status: F Source: [facility] 4:01 [facility] EMERGENCY [facility]PARTMENT REPOSITORY TYPE CODE TESTS RESULT OUT OF REFERENCE UNITS RANGE LAB WBC(LOINC) 4.50-10.80 10 3/mcL WBC 10.60 LAB RBCCT(LOINC 4.10-5.30 10 6/mcL ) Low RBC 2.64 LAB HGB(LOINC) 12.0-16.0 G/dL Low Hgb 7.4 LAB HCT(LOINC) 34.0-46.0 % Low Hct 22.3 LAB MCV(LOINC) 80.0-99.0 fL MCV 84.7 LAB MCH(LOINC) 27.0-33.0 pg MCH 27.9 LAB MCHC(LOINC) 32.0-36.0 G/dL MCHC 33.0 LAB RDW(LOINC) 11.5-15.5 % High RDW 16.4 LAB PLT(LOINC) 150-450 10 3/mcL Platelet 391 LAB MPV(LOINC) 6.6-10.5 fL MPV 6.8 Performed By: #### JACE GUTIERREZ, CBC #### [address] [address] .AUTO DIFF Collected: 01/14/2018 Status: F Source: [facility] 4:01 [facility] EMERGENCY [facility]PARTMENT REPOSITORY TYPE CODE TESTS RESULT OUT OF REFERENCE UNITS RANGE LAB NARESH(LOINC) 50.0-75.0 % Neutrophil % 68.9 LAB LYM(LOINC) 20.0-40.0 % Low Lymphocyte % 18.9 LAB MON(LOINC) 2.0-13.0 % Monocyte % 10.5 LAB EO(LOINC) 0.0-6.0 % Eosinophil % 1.2 LAB BAS(LOINC) 0.0-2.5 % Basophil % 0.5 LAB ABLYM(LOIN 0.90-4.32 10 3/mcL C) Lymphocyte, 2.00 Absolute LAB KADY(LOINC 0.09-1.40 10 3/mcL ) Monocyte, 1.10 Absolute LAB AEOS(LOINC 0.00-0.65 10 3/mcL ) Eosinophil, 0.10 Absolute LAB ABAS(LOINC 0.00-0.27 10 3/mcL ) Basophil, 0.10 Absolute Performed By: #### JACE GUTIERREZ, CBC #### [address] [address] .NEUABS Collected: 01/14/2018 Status: F Source: [facility] 4:01 AM [facility] REPOSITORY TYPE CODE TESTS RESULT OUT OF REFERENCE UNITS RANGE LAB ANEU(LOINC) 2.25-8.10 10 3/mcL Neutrophil, 7.30 Absolute Performed By: #### ANEU, ADIFF, CBC #### [place] [address] CMP Collected: 01/13/2018 Status: F Source: [facility] 11:53 PM [facility] REPOSITORY TYPE CODE TESTS RESULT OUT OF REFERENCE UNITS RANGE LAB GLU(LOINC) 70-110 mg/dL Glucose Level 104 LAB NA(LOINC) 136-145 mEq/L Sodium Level 140 LAB K(LOINC) 3.5-5.0 mEq/L Potassium Level 4.5 LAB CL(LOINC) 98-110 mEq/L Chloride 108 LAB CO2(LOINC) 22-32 mEq/L Low CO2 19 LAB EBAL(LOINC 4.0-15.0 mEq/L ) Electrolyte Balance 13.0 LAB BUN(LOINC) 8.0-22.0 mg/dL BUN High 43.0 LAB CRE(LOINC) 0.50-1.20 mg/dL Creatinine High Lvl (s) 1.89 LAB BC(LOINC) 10.0-22.0 ratio High BUN/Creatinine 22.8 Ratio LAB CA(LOINC) 8.4-10.1 mg/dL Low Calcium Lvl 7.9 LAB PROT(LOINC 6.0-8.5 G/dL ) Low Total Protein 5.6 LAB ALB(LOINC) 3.2-4.8 G/dL Low Albumin Level 1.8 LAB GLB(LOINC) 1.5-3.8 G/dL Globulin 3.8 LAB AG(LOINC) 0.9-1.6 ratio Low A/G Ratio 0.5 LAB BILT(LOINC 0.2-1.2 mg/dL ) Bili Total 0.3 LAB AP(LOINC) 38-126 U/L Alk Phos 113 LAB AST(LOINC) 8-34 U/L AST/SGOT 10 LAB ALT(LOINC) 10-49 U/L ALT/SGPT 12 Performed By: #### ANTIS, GFR, CMP, ABORH #### [address] [address] .GFR Collected: 01/13/2018 Status: F Source: [facility] 11:53 PM [facility] REPOSITORY TYPE CODE TESTS RESULT OUT OF REFERENCE UNITS RANGE LAB GFRAA(LOINC ml/min/1.73 ) sqm GFR 33 [place]i Result Comment: GFR Population mean for , Non- Americans Ages 20-29 = 116 mL/min/1.73 sq.m. Ages 30-39 = 107 mL/min/1.73 sq.m. Ages 40-49 = 99 mL/min/1.73 sq.m. Ages 50-59 = 93 mL/min/1.73 sq.m. Ages 60-69 = 85 mL/min/1.73 sq.m. Ages 70+ = 75 mL/min/1.73 sq.m. Chronic Kidney Disease: Less than 60 mL/min/1.73 square meters End Stage Renal Disease: Less than 15 mL/min/1.73 square meters LAB GFRNO(LOINC) ml/min/1.73sqm GFR Non- 27 Result Comment: GFR Population mean for , Non- Americans Ages 20-29 = 116 mL/min/1.73 sq.m. Ages 30-39 = 107 mL/min/1.73 sq.m. Ages 40-49 = 99 mL/min/1.73 sq.m. Ages 50-59 = 93 mL/min/1.73 sq.m. Ages 60-69 = 85 mL/min/1.73 sq.m. Ages 70+ = 75 mL/min/1.73 sq.m. Chronic Kidney Disease: Less than 60 mL/min/1.73 square meters End Stage Renal Disease: Less than 15 mL/min/1.73 square meters Performed By: #### ANTIS, GFR, CMP, ABORH #### [place] [address] TABO Collected: 01/13/2018 Status: F Source: [facility] 11:53 PM [facility] REPOSITORY TYPE CODE TESTS RESULT OUT OF RANGE REFERENCE UNITS LAB ABORH(LOINC ) Unknown ABO/Rh O NEG Interp Performed By: #### ANTIS, GFR, CMP, ABORH #### [place] [address] TABS Collected: 01/13/2018 Status: F Source: [facility] 11:53 PM [facility] REPOSITORY TYPE CODE TESTS RESULT OUT OF REFERENCE UNITS RANGE LAB ANST(LOINC ) Antibody Negative ABSC Screen Tango Performed By: #### ANTIS, GFR, CMP, ABORH #### [facility] [address] [place] [address] EMERGENCY DEPARTMENT Observed: 01/13/2018 Status: F Source: GANTT SUMMARY 7:13 PM [facility] REPOSITORY [facility] Medical Records Department [address] [facility] [place] [address] Emergency Department Summary 01/13/18 1544 MR#: [id number] Acct: [id number] Name: KANDY LAUREN ANN Rep #: [id number] : 1960 57 From: Miguelina Salazar MD PCP: Pia Newton MD Status: REG ER - ER Visit Summary Date of Service: 01/13/18 Chief Complaint: Left ankle and foot wound History of Present Illness: The patient is a 57 F presenting with left ankle and foot infection. Patient states that she was discharged from rehab a week ago. When she was in rehab she had a wound VAC. She was sent home without a wound VAC and she has been unable to obtain this. She finished antibiotics yesterday. She states she had surgery at [facility] she believes in October for fracture dislocation left ankle. She states she was admitted to [facility] for 1 month and had multiple surgeries. She was sent to rehab. She developed C. difficile. She was sent back to [place]. She was then discharged again to rehab. Her C. difficile has cleared. She was discharged from rehab 1 week ago. She is a poor historian. Physical Examination: Vitals are stable. Temperature 100.3 Alert no acute distress. HEENT exam is unremarkable. Neck is supple. Lungs are clear and equal bilaterally. Heart is regular rate and rhythm. Abdomen is soft nontender nondistended. Extremities deep wound to medial and lateral left ankle with bone exposed. Foul smelling, purlunet discharge. Dopplerable pulse Skin is warm and dry. No focal neurologic deficit. Remainder of exam is unremarkable. Emergency Department Course and Treatment: CBC showed a white count of 14.0, hemoglobin 8.2, platelets 459. Chemistry shows sodium 135, glucose 135, BUN 50, creatinine 2.16. Lactic acid is normal. Wound culture was sent. ESR 92, CRP 359. Patient was given morphine, Zofran. She was given vancomycin and Zosyn IV. Left ankle x-ray shows patient has undergone ORIF of the distal tibia/fibular fractures since previous study with a lateral metal sideplate along the distal fibula, secured by numerous screws. A few of these screws passed across into the tibia, but have since become disengaged and/or displaced, as described. A persistent fracture at the base of the medial malleolus shows significant displacement, and there is one half shaft widths anterolateral displacement of the dome of the talus relative to the distal tibial plafond, as well as widening of the space between the distal tibia and fibula. The anteromedial margin of the distal tibial metaphysis appears to extend through an open wound, and there is loss of cortical integrity consistent with osteomyelitis. There are additional osseous changes of osteomyelitis involving the distal fibular diaphysis, as described. There is notable anterolateral soft tissue swelling at the ankle, consistent with concomitant cellulitis. Patient was discussed with Dr. Mariscal from [facility] and will be transferred to [facility]. Disposition: Transfer at [facility] Impression: Left ankle wound with bone exposure with osteomyelitis/cellulitis This note was generated with Thounds dictation software. It may contain incorrect words, spelling, and punctuation that were not noted in review of the chart prior to signing ED Disposition - Plan for ED Patient: Chief Complaint: Lower Extremity Injury Referrals: Pia Newton MD [Primary Care Provider] - What to do if you have Problems For any increased pain, shortness of breath, bleeding, nausea or vomiting, chest pain, or any unexpected problems, contact your Primary Care Provider. Call [facility] ([phone]) or report to the closest Emergency Room. Call 911 if necessary. 01/13/181912 <Electronically signed by Miguelina Salazar MD> Date Miguelina Salazar MD Cosigner Signature (If Indicated): Date CC: Pia Newton MD Observed: 01/13/2018 Status: F Source: ANA CULTURE, WOUND 4:00 PM [facility] REPOSITORY Gram Stain Gram Stain Rare White Blood Cells 4+ Gram positive rods 1+ Gram negative rods Wound Culture RESULTS CALLED TO Mellissa DUQUE 01/16/18 0802 [address]. REPORT READ BACK BY JOSIAS. ORGANISM 1: Pseudomonas spp Amount Growth 2+ ORGANISM 2: Staphylococcus aureus Amount Growth 3+ ORGANISM 3: Streptococcus agalactiae (B) Amount Growth 1+ Pseudomonas spp: REACTION Cefepime $ 2 S Ceftazidime *NF <=1 S Gentamicin $ <=1 S Imipenem *NF 0.5 S Levofloxacin $ >=8 R Piperacillin/Tazobactam $$ 8 S Tobramycin $ <=1 S (NF) indicates non-formulary drug at [facility]. Approval by Infectious Disease Specialist required before non-formulary drugs may be ordered and/or dispensed. Staphylococcus aureus: REACTION Benzylpenicillin NF >=0.5 R Cefoxitin *NF + Clindamycin $$ >=8 R Inducable Clindamycin Resistan - Erythromycin $ >=8 R Gentamicin $ <=0.5 S Levofloxacin $ >=8 R Linezolid $$$$ 4 S Oxacillin NF >=4 R Tigecycline $$$$ 0.25 S Rifampin $$ <=0.5 S Tetracycline NF 2 S Trimethoprim/Sulfametho $ <=10 S Vancomycin $ 1 S (NF) indicates non-formulary drug at [facility]. Approval by Infectious Disease Specialist required before non-formulary drugs may be ordered and/or dispensed. * CLSI guidelines does not recommend testing of cephalosporins. This interpretation is deduced from Beta-lactam/penicillin results. Streptococcus agalactiae (B): REACTION Ampicillin $ <=0.25 S Benzylpenicillin NF 0.12 S Ceftriaxone $ <=0.12 S Clindamycin $$ >=1 R Inducable Clindamycin Resistan - Linezolid $$$$ <=2 S Vancomycin $ 0.5 S (NF) indicates non-formulary drug at [facility]. Approval by Infectious Disease Specialist required before non-formulary drugs may be ordered and/or dispensed. * CLSI guidelines does not recommend testing of cephalosporins. This interpretation is deduced from Beta-lactam/penicillin results. Performed By: #### M100.1400 #### [facility] [address] [place], [place], [address] Observed: 01/13/2018 Status: F Source: [facility] CULTURE, BLOOD (WB) 4:00 PM [facility] REPOSITORY ANAEROBIC BOTTLE: GRAM POSITIVE COCCI IN CLUSTERS RESULTS CALLED TO GIL/ED 01/14/18 [address]. REFER TO -[facility] FOR SENSITIVITIES. ORGANISM 1: Staphylococcus aureus Amount Growth Growth Performed By: #### M200.1000 #### [facility] [address] [place], [address] FOOT MIN 3 VIEWS Observed: 01/13/2018 Status: F Source: GANTT 3:49 PM [facility] REPOSITORY [facility] Imaging Services [address] [place] [address] [place] [address] Foot min 3 Views MR#: [id number] Acct: [id number] Name: KANDY LAUREN ANN Rep #: [id number] : 1960 F 57 From: Audi Morillo MD PCP: Pia Newton MD Status: REG ER Study: Foot min 3 Views Date of Exam: 01/13/18 Exam# [id number] Ordering Dr: Miguelina Salazar MD STUDY: X-RAY - LEFT FOOT CLINICAL: Female, 57 years old. Left foot infection. TECHNIQUE: 3 view(s) of the foot. COMPARISON: None. FINDINGS: The patient has undergone ORIF of distal tibial and talar fractures with metal hardware along the lateral margin of the distal fibula. However, there are additional changes of osteomyelitis, and a few of the fixation screws that extend across into the distal tibia have become dislodged. See report of ankle films also done today. There is mottled density at the mid body of the calcaneus, but no discrete destructive lesion to indicate osteomyelitis. On the oblique view, the inferolateral cortical margin of the talus is indistinct. Focal areas of decreased density also noted in the cuneiforms, and it is difficult to exclude the presence of osteomyelitis at these sites. There is an enthesophyte involving the posterior superior calcaneus at the site of insertion of the Achilles tendon. There is a plantar calcaneal spur. There is anterior periventricular spurring at the distal margin of the navicular. Normal remaining tarsal bones. Normal visualized subtalar, talonavicular, calcaneocuboid, tarsal and tarsometatarsal articulations. There is a 1 cm erosive lesion in the medial mid diaphysis of the first metatarsal, consistent with the site of osteomyelitis. Body demineralization in the bases of the second and third metatarsals raise question of additional infectious foci at these sites. Normal metatarsophalangeal joint of the great toe. Normal tibial and fibular sesamoid bones. Normal interphalangeal joint of the great toe. Normal phalanges of the great toe. Normal second through fifth metatarsophalangeal joints. Normal interphalangeal joints and phalanges of the lesser toes. There is a soft tissue defect at the medial aspect of ankle, and the medial cortical margin of the distal tibia protrudes into this site. There is anteromedial soft tissue swelling of the foot. Focal soft tissue ulceration seen in the medial aspect of the foot at the level of the lytic defect in the first metatarsal. RAD/Foot min 3 Views IMPRESSION: 1. See report of ankle films also done today regarding chronic fracture deformities and changes of osteomyelitis involving the distal tibia and fibula, now status post attempted ORIF with metal hardware. 2. There is an open wound at the medial aspect of the ankle, and the distal tibial metaphysis protrudes into this site. Soft tissue swelling also noted in the foot, and there is ulceration in the medial aspect of the midfoot. 3. There is a lytic defect in the medial cortical margin of the mid diaphysis of the first metatarsal at the level of the soft tissue ulceration, consistent with osteomyelitis. 4. The inferolateral cortical margin of the talus is not well seen in the oblique view, and there is patchy demineralization in the mid body of the calcaneus. Spotty demineralization seen and a few other tarsal bones as well as the bases of the second and third metatarsals. Other foci of active osteomyelitis difficult to exclude. 5. There are plantar and Achilles spurs of the calcaneus. Electronically Signed: Parrish Morillo MD at 17:34 EDT , Service support , CC: Miguelina Salazar MD; Pia Newton MD Political Worker: Signed CBC W/DIFF, AUTOMATED Collected: 01/13/2018 Status: F Source: ANA 3:48 PM [facility] REPOSITORY TYPE CODE TESTS RESULT OUT OF RANGE REFERENCE UNITS LAB L100.1000 4.4-11.0 K/mm3 High WBC 14.0 LAB L100.1200 4.2-5.4 M/mm3 Low RBC 3.01 LAB L100.1300 12.0-15.0 g/dl Low HGB 8.2 LAB L100.1400 37-47 % Low HCT 26.2 LAB L100.1500 81-99 fL Normal MCV 87.0 LAB L100.1600 27.0-32.0 pg Normal MCH 27.2 LAB L100.1700 32-36 g/gl Low MCHC 31.3 LAB L100.1810 11.6-14.6 % High RDW CV 15.7 LAB L100.1820 35.1-43.9 fl High RDW SD 48.9 LAB L100.1900 150-450 K/mm3 High PLT 459 LAB L100.2000 6.2-12.0 fl Normal MPV 9.0 LAB L100.2100 47-70 % High NEUT% 74.5 LAB L100.2200 19-41 % Low LY% 13.3 LAB L100.2300 0-10 % High MONO% 10.6 LAB L100.2400 0-5 % Normal EO% 0.5 LAB L100.2500 0-1 % Normal BASO% 0.3 LAB L100.2550 0.0-0.9 % Normal IM GRAN % 0.800 Result Comment: IG% - Immature Granulocytes (promyelocytes, myelocytes and metamyelocytes) > 1% indicates that a LEFT SHIFT is Present. LAB L100.2620 2.0-7.7 X10 3/uL High Absolute Neut 10.4 LAB L100.2720 0.83-4.51 X10 3/ul Normal Absolute Lymph 1.86 Performed By: #### L100.0100, L101.9900 #### [facility] [address] [place], [address] ERYTHROCYTE SED RATE Collected: 01/13/2018 Status: F Source: GANTT 3:48 PM [facility] REPOSITORY TYPE CODE TESTS RESULT OUT OF RANGE REFERENCE UNITS LAB L102.0000 0-30 mm/hr High SED RATE 92 Performed By: #### L100.0100, L101.9900 #### [facility] [address] [place], [address] LACTIC ACID Collected: 01/13/2018 Status: F Source: GANTT 3:48 PM [facility] REPOSITORY Order Comment: Yes/No query for Sepsis Lactate Rule Y TYPE CODE TESTS RESULT OUT OF RANGE REFERENCE UNITS LAB L503.6005 0.4-2.0 mmol/L Normal LACTIC ACID 1.2 Performed By: #### L503.6005 #### [facility] [address] [facility] [place] [place], [address] BASIC METABOLIC Collected: 01/13/2018 Status: F Source: GANTT PROFILE (BMP) 3:48 PM [facility] REPOSITORY TYPE CODE TESTS RESULT OUT OF RANGE REFERENCE UNITS LAB L501.0100 74-106 mg/dL High GLU 135 Result Comment: Fasting Glucose result greater than or equal to 126 mg/dL suggests DIABETES MELLITUS per A.D.A. criteria. Please note revised GLUCOSE reference range effective 2017. LAB L501.1000 7-18 mg/dL High BUN 50 LAB L501.1100 0.55-1.02 mg/dL High CREAT,SERUM 2.16 Result Comment: The validity of the calculated GFR AND GFRAA in patients over 70 years has not been determined. Clinical correlation is essential. LAB L501.1110 >60 mL/min Low EST GFR 25 Result Comment: Non- GFR Calc LAB L501.1115 >60 mL/min Low EST GFR - AA 30 Result Comment: GFR Calc LAB L501.1255 ml/min Normal Estimated CRCL 26.25 LAB L501.1300 10-20 RATIO High BUN/CRE 23.1 LAB L501.2200 8.5-10 mg/dL Normal .1 CA 8.9 LAB L501.5300 136-14 mmol/L Low 5 NA 135 LAB L501.5600 3.5-5. mmol/L Normal 1 K 4.9 Result Comment: Moderate Hemolysis, Result may be falsely increased. LAB L501.5900 98-107 mmol/L Normal CL 104 LAB L501.6100 21.0-32.0 mmol/L Normal CO2 21.0 LAB L501.6200 5-15 Normal GAP 10 Performed By: #### L500.2500, L501.6710 #### [facility] [address] [facility] [place] [place], [address] CRP Collected: 01/13/2018 Status: F Source: GANTT 3:48 PM [facility] REPOSITORY TYPE CODE TESTS RESULT OUT OF RANGE REFERENCE UNITS LAB L501.6710 0.0-3.0 mg/L High 359.00 C-REACTIVE PROT Result Comment: C-Reactive Protein (CRP) provides useful information for the diagnosis, therapy and monitoring of inflammatory processes and associated diseases. For the evaluation of Relative Risk for Cardiovascular Disease, a High Sensitivity CRP (HSCRP) should be ordered. Performed By: #### L500.2500, L501.6710 #### [facility] [address] [place], [address] Observed: 01/13/2018 Status: F Source: GANTT CULTURE, BLOOD (WB) 3:48 PM [facility] REPOSITORY BC ANAEROBIC BOTTLE GRAM STAIN: GRAM POSITIVE COCCI IN CLUSTERS RESULTS CALLED/FAXED TO [facility]A 01/14/18 [address] MRSA RESULTS/FAXED CALLED TO TERESITA/JOBY 01/16/18 [address]. Copy of report sent to Infection Control Printer [id number] 01/16/18 [address]. ORGANISM 1: Meth. resistant Staph. aureus Amount Growth Growth Meth. resistant Staph. aureus: REACTION Benzylpenicillin NF >=0.5 R Cefoxitin *NF + Clindamycin $$ >=8 R Inducable Clindamycin Resistan - Erythromycin $ >=8 R Gentamicin $ <=0.5 S Levofloxacin $ >=8 R Linezolid $$$$ 2 S Oxacillin NF >=4 R Tigecycline $$$$ 0.25 S Rifampin $$ <=0.5 S Tetracycline NF 2 S Trimethoprim/Sulfametho $ <=10 S Vancomycin $ 1 S (NF) indicates non-formulary drug at [facility]. Approval by Infectious Disease Specialist required before non-formulary drugs may be ordered and/or dispensed. * CLSI guidelines does not recommend testing of cephalosporins. This interpretation is deduced from Beta-lactam/penicillin results. Performed By: #### M200.1000 #### [facility] [address] [facility] [place], [address] ANKLE MIN 3 VIEWS Observed: 01/13/2018 Status: F Source: GANTT 3:39 PM [facility] REPOSITORY [facility] Imaging Services [address] [place] [address] Ankle min 3 Views MR#: [id number] Acct: [id number] Name: KANDY LAUREN ANN Rep #: [id number] : 1960 F 57 From: Audi Morillo MD PCP: Pia Newton MD Status: REG ER Study: Ankle min 3 Views Date of Exam: 01/13/18 Exam# [id number] Ordering Dr: Miguelina Salazar MD STUDY: X-RAY - LEFT ANKLE REASON FOR EXAM: Female, 57 years old. Left ankle infection. TECHNIQUE: 3 view(s) of the ankle. COMPARISON: 2 views of the left ankle November 05, 2017 FINDINGS: Since the prior study, the patient has undergone ORIF of the distal fibular and tibial fractures. A metal sideplate with an 18.5 degree bend at its midpoint seen along the lateral margin of the distal fibula, fixed by numerous screws. The third screw from the bottom extends across to pass into the distal tibia, but also projects 5-6 mm lateral to the metal plate. The screw just above this extend 14 mm lateral to the metal plate. Its distal and may have been engaged in the tibia at some point as well -a faint tract is visualized - but is not today. Similarly, the second screw from the bottom extends 5 mm from the metal plate. Its tip abuts the lateral cortical margin of the distal tibia, but is not engaged in the tibia itself. There is a mildly moth-eaten appearance of the distal tibial diaphysis surrounding the 3 mildly displaced screws as noted above with additional loss of the medial cortical margin. The distal fibula has an angulated contour that matches that of a metal plate, but a discrete fracture line is no longer apparent. Fracture through the base of the medial malleolus persists, and there is 10-12 mm medial displacement of the medial malleolar fracture fragment relative to the distal tibia. There is one half shaft widths anterolateral subluxation of the dome of the talus relative to the distal tibial plafond, as well as 13.5 mm distance between the distal tibia and fibula. The anteromedial margin of the distal tibial metaphysis appears to extend through an open wound at the ankle, and there is corresponding loss of cortical integrity consistent with active osteomyelitis. Serial reaction noted along the medial distal diaphysis of the tibia. There is cortical irregularity at the lateral margin of the tibial plafond and neck could reflect a small cortical avulsion fracture fragment, site of cortical healing, or other soft tissue calcification. Normal visualized talus. Mildly mottled density at the plantar mid body of the calcaneus, but no discrete destructive lesion. There is an enthesophyte involving the posterior superior calcaneus at the site of insertion of the Achilles tendon. There is a plantar calcaneal spur. There is anterior periarticular cortical spurring at the distal margin of the navicular. The visualized subtalar, talonavicular, calcaneocuboid and tarsal articulations are normal. There is anterolateral soft tissue swelling. Atherosclerotic vascular calcifications again identified. RAD/Ankle min 3 Views IMPRESSION: 1. Patient has undergone ORIF of the distal tibia/fibular fractures since previous study with a lateral metal sideplate along the distal fibula, secured by numerous screws. A few of these screws passed across into the tibia, but have since become disengaged and/or displaced, as described. A persistent fracture at the base of the medial malleolus shows significant displacement, and there is one half shaft widths anterolateral displacement of the dome of the talus relative to the distal tibial plafond, as well as widening of the space between the distal tibia and fibula. 2. The anteromedial margin of the distal tibial metaphysis appears to extend through an open wound, and there is loss of cortical integrity consistent with osteomyelitis. There are additional osseous changes of osteomyelitis involving the distal fibular diaphysis, as described. There is notable anterolateral soft tissue swelling at the ankle, consistent with concomitant cellulitis. 3. Atherosclerotic vascular calcifications present. 4. There are plantar and Achilles spurs of the calcaneus. There is mottled density at the mid body of the calcaneus, but no discrete destructive lesion. The talus also appears intact. Electronically Signed: Parrish Morillo MD at 17:26 EDT , Service support , CC: Miguelina Salazar MD; Pia Newton MD Political Worker: Signed SURGERY VISIT REPORT Observed: 01/08/2018 Status: F Source: GANTT 10:57 AM [facility] [address] [place] [address] [place] [address] OFFICE VISIT Date of Service: 01/01/18 MR#: [id number] Acct: [id number] Name: KANDY LAUREN ANN Rep #: [id number] : 1960 Provider: Octavio Pulido MD Age/Sex: 57/F Location: [facility] Status: Signed Intake Vital Signs01/01/18 Height 5 ft 6 in 01/01/18 Weight: 225 lb 2 oz 01/01/18 Body Mass Index (BMI) 36.3 01/01/18 Blood Pressure 116/74 Intake Visit Reasons: Blood in Stool Chief Complaint: diarrhea, discuss c-scope Training Consultant Required: No Is patient in pain?: No Allergies aspirin Allergy (Verified 01/01/18 14:27) Hives latex Allergy (Verified 01/01/18 14:27) Hives naproxen [From Aleve] Adverse Reaction (Severe, Verified 01/01/18 14:27) Kidney disease Medications Allopurinol 300 mg PO DAILY 12/03/16 [History Confirmed 01/01/18] Amitriptyline HCl 75 mg PO QHS 12/03/16 [History Confirmed 01/01/18] Atenolol 50 mg PO DAILY 12/03/16 [History Confirmed 01/01/18] liraglutide 0.6 mg/0.1 mL (18 mg/3 mL) subcutaneous pen injector 1.2 mg SC QDAY #9 ml 03/13/17 [Rx Confirmed 01/01/18] atorvastatin 40 mg tablet 40 mg PO QDAY #90 tab 05/27/17 [Rx Confirmed 01/01/18] cholecalciferol (vitamin D3) 2,000 unit capsule 2,000 unit PO ONCE 05/27/17 [History Confirmed 01/01/18] clopidogrel 75 mg tablet 150 mg PO QDAY 05/27/17 [History Confirmed 01/01/18] colchicine 0.6 mg capsule 0.6 mg PO ONCE 05/27/17 [History Confirmed 01/01/18] diltiazem CD 180 mg capsule,extended release 24 hr 180 mg PO ONCE 05/27/17 [History Confirmed 01/01/18] hydroxychloroquine 200 mg tablet 200 mg PO QDAY 05/27/17 [History Confirmed 01/01/18] lisinopril 40 mg tablet 40 mg PO QDAY 05/27/17 [History Confirmed 01/01/18] multivitamin with iron tablet 1 tab PO QDAY 05/27/17 [History Confirmed 01/01/18] omega-3 fatty acids 1,000 mg capsule 1,000 mg PO QDAY 05/27/17 [History Confirmed 01/01/18] sitagliptin 100 mg tablet 100 mg PO QDAY 05/27/17 [History Confirmed 01/01/18] gabapentin 300 mg capsule 1,200 mg PO TID cap 08/19/17 [History Confirmed 01/01/18] ipratropium 20 mcg-albuterol 100 mcg/actuation mist for inhalation 1 inh INHALATION Q6H PRN #4 g 08/22/17 [Rx Confirmed 01/01/18] mometasone 50 mcg/actuation nasal spray 2 spray INTRANASAL QDAY #17 g 09/23/17 [Rx Confirmed 01/01/18] cyclobenzaprine 10 mg tablet 10 mg PO TID PRN #60 tab 10/10/17 [Rx Confirmed 01/01/18] triamterene 75 mg-hydrochlorothiazide 50 mg tablet 1 tab PO QAM #90 tab 10/10/17 [Rx Confirmed 01/01/18] Is last menstrual period known: No Post menopausal: Yes Patient : No PFSH Medical History Arthritis (Chronic) Hypertension (Chronic) High cholesterol (Chronic) Clostridium difficile infection (Acute) Gout (Acute) Heart disease (Acute) Inflammatory arthritis (Acute) Lupus (Acute) Rheumatoid arthritis (Acute) Diabetes (Chronic) Surgical History History of carpal tunnel release (Acute) History of hysterectomy (Acute) amputation of right pinke toe (Acute) history of 2 back sugeries (Acute) history of right femoral stent (Acute) history of right shoulder surgery (Acute) Family History Mother Diabetes Hypertension CVA (cerebral vascular accident) Brother Alcoholism Sister Cancer Father Heart disease Respiratory disease Social History Smoking Status: Current every day smoker alcohol intake: never substance use type: does not use what type of physical activity do you participate in: none HPI HPI HPI: KANDY LAUREN, is a 57 F who presents to the office today for evaluation for colonoscopy. Patient was seen was [facility] and having rectal bleeding and anemia and actually received 3 units of packed red blood cells. He was diagnosed with C. difficile was treated with Flagyl and vancomycin and received more blood. She was status post a left ankle surgery for ORIF and was sent to rehab to recover. The patient continues to have very loose stools despite trying numerous [id number] medications to help prevent this. She was taking her p.o. vancomycin through the last weeks of last month. ROS General General: Yes weight change and fatigue; no appetite, colon cancer, breast cancer or weakness HEENT HEENT: Yes eye injury; no difficulty swallowing, eye surgery, swollen glands or hoarseness Endo Endocrine: Yes diabetes mellitus; no thyroid disease, thyroid cancer, Hair loss, heat intolerance or cold intolerance Musc Musculoskeletal: Yes back problems, arthritis, rheumatoid arthritis, gout and joint pain Cardio Cardiovascular: Yes murmur, heart disease, high blood pressure and heart stent; no pacemaker, atrial fibrillation, heart attack, palpitations, shortness of breat with exertion or chest pain Psych Psychiatric: Yes depression and anxiety; no hearing voices Resp Respiratory: Yes shortness of breath, Yes sleep apnea, No cough, Yes COPD, Yes asthma, Yes emphysema, No wheezing Gastro Gastrointestinal: No abdominal pain, No nausea or vomiting, Yes diarrhea, No constipation, Yes blood in stool, No acid reflux, No hemorrhoids, No ulcers, No gallbladder problem, No black,tarry stools Ravinder Hematologic: Yes blood thinners, No blood disorders, No bleeding, No anemia, No blood clots Neuro Neurologic: No weakness Exam Const General: well developed, no acute distress, well hydrated Orientation: oriented to person, oriented to place, oriented to time [facility] Head: normocephalic, atraumatic Ears: external ears normal Mouth: moist mucous membranes Eyes Sclera: sclerae normal Pupils: normal by confrontation Neck Neck: no lymphadenopathy noted Neck mass: No Thyroid: symmetrical, thyroid normal Chest Chest palpation AND inspection: normal inspection of the chest Resp Effort AND Inspection: normal respiratory effort Auscultation: clear to auscultation bilaterally Percussion: percussion normal Cardio Rate: regular rate Rhythm: regular rhythm Heart Sounds: murmur GI Inspection: obesity, large pannus Palpation: soft, no masses, no hepatosplenomegaly, nontender Rectal Exam: other Other: Perianal exam reveals no redness no signs of a rectal fissure no masses identified Extrem General: no clubbing, cyanosis or edema, normal to inspection Assessment AND Plan Problems 1. Diarrhea of infectious origin A09 2. C. difficile diarrhea A04.72 3. C. difficile colitis A04.72 4. Rectal hemorrhage K62.5 Plan I have discussed the above with the patient. I have offered the patient colonoscopy for evaluation. I have explained the risks/benefits of the procedure and described the procedure. I have discussed the risks with the patient, including but not limited to: infection, bleeding, perforation of the GI tract requiring emergency surgery, inability to complete the procedure, injury to any internal organs, complications of anesthesia, etc. - the patient understands and agrees to proceed. I have answered all the patient's questions to the patient's satisfaction and the patient has no further questions. The patient has been given instructions for the colon cleansing preparation. At this time we are not going to schedule her for a colonoscopy given the fact that she is rehabbing with her leg I think is best we wait till this is really healed up well for her and she can actually physically do the bowel prep. She will need to have a colonoscopy done sometime this year and I will probably see her back in about a month's time which I believe will be enough for her to get ready to do the bowel prep Also encouraged her to see her primary care physician to make sure that she is taking all the appropriate medications to hopefully decrease any chances of diarrhea. Coding Level of Care Code Off vis,new,level 3 Diagnoses Diarrhea of infectious origin A09 Diarrhea type: infectious C. difficile diarrhea A04.72 C. difficile colitis A04.72 Rectal hemorrhage K62.5 01/08/18 1057 <Electronically signed by Octavio Pulido MD> Date Octavio Pulido MD Cosigner Signature: Date (if applicable) CC: Pia Newton MD TYPE AND SCREEN Collected: 12/24/2017 Status: F Source: ANA 2:24 PM [facility] REPOSITORY Order Comment: PRETRANSFUSION HGB = 7.6 HCT = 22.7 PERFORMED AT [facility] CMV NEG?* N Give When? Type AND Hold Irradiated? N Leukodepleted? Y Reason for Type AND Screen/Red Cells: ANEMIA TYPE CODE TESTS RESULT OUT OF RANGE REFERENCE UNITS LAB B10.0800 O Normal BLOOD TYPE GEL NEGATIVE LAB B100.4000 Normal Antibody NEGATIVE Screen Performed By: #### B101.7450 #### [facility] [address] [place] [place], [place], [address] Collected: 12/24/2017 Status: F Source: GANTT 2:24 PM [facility] REPOSITORY TYPE CODE TESTS RESULT OUT OF REFERENCE UNITS RANGE LAB U100.0000 [id number] TRANSFUSED PRODUCT: T AND S with Crossmatch, Red Cells COUNT: 2 Performed By: #### U100.0000 #### [facility] - refer to report for specific site BMP Collected: 12/15/2017 Status: F Source: [facility] 6:15 AM [facility] REPOSITORY TYPE CODE TESTS RESULT OUT OF REFERENCE UNITS RANGE LAB GLU(LOINC) 70-110 mg/dL Glucose Level 100 LAB NA(LOINC) 136-145 mEq/L Low Sodium Level 135 LAB K(LOINC) 3.5-5.0 mEq/L Potassium Level 4.3 LAB CL(LOINC) 98-110 mEq/L Chloride 98 LAB CO2(LOINC) 22-32 mEq/L CO2 25 LAB EBAL(LOINC 4.0-15.0 mEq/L ) Electrolyte Balance 12.0 LAB BUN(LOINC) 8.0-22.0 mg/dL BUN High 29.0 LAB CRE(LOINC) 0.50-1.20 mg/dL Creatinine High Lvl (s) 1.55 LAB BC(LOINC) 10.0-22.0 ratio BUN/Creatinine 18.7 Ratio LAB CA(LOINC) 8.4-10.1 mg/dL Calcium Lvl 8.4 Performed By: #### GFR, BMP #### [place] [address] .GFR Collected: 12/15/2017 Status: F Source: [facility] 6:15 AM [facility] REPOSITORY TYPE CODE TESTS RESULT OUT OF REFERENCE UNITS RANGE LAB GFRAA(LOINC ml/min/1.73 ) sqm GFR 41 [place] Result Comment: GFR Population mean for , Non- Americans Ages 20-29 = 116 mL/min/1.73 sq.m. Ages 30-39 = 107 mL/min/1.73 sq.m. Ages 40-49 = 99 mL/min/1.73 sq.m. Ages 50-59 = 93 mL/min/1.73 sq.m. Ages 60-69 = 85 mL/min/1.73 sq.m. Ages 70+ = 75 mL/min/1.73 sq.m. Chronic Kidney Disease: Less than 60 mL/min/1.73 square meters End Stage Renal Disease: Less than 15 mL/min/1.73 square meters LAB GFRNO(LOINC) ml/min/1.73sqm GFR Non- 34 Result Comment: GFR Population mean for , Non- Americans Ages 20-29 = 116 mL/min/1.73 sq.m. Ages 30-39 = 107 mL/min/1.73 sq.m. Ages 40-49 = 99 mL/min/1.73 sq.m. Ages 50-59 = 93 mL/min/1.73 sq.m. Ages 60-69 = 85 mL/min/1.73 sq.m. Ages 70+ = 75 mL/min/1.73 sq.m. Chronic Kidney Disease: Less than 60 mL/min/1.73 square meters End Stage Renal Disease: Less than 15 mL/min/1.73 square meters Performed By: #### GFR, BMP #### [place] [address] HH Collected: 12/09/2017 Status: F Source: [facility] 8:47 AM [facility] REPOSITORY TYPE CODE TESTS RESULT OUT OF RANGE REFERENCE UNITS LAB HGB(LOINC) 12.0-16.0 G/dL Low Hgb 9.8 LAB HCT(LOINC) 34.0-46.0 % Low Hct 28.4 Performed By: #### HH #### [place] [address] FINAL SURGICAL Observed: 12/08/2017 Status: F Source: [facility] PATHOLOGY REPORT 10:49 AM [facility] REPOSITORY . Pathology Reports Accession: Collected Date/Time: Received Date/Time: Pathologist: [id number] 12/08/2017 10:49 EDT 12/08/2017 10:49 EDT MD SONA RAY Final Surgical Pathology Report DIAGNOSIS: SIGMOID COLON, BIOPSY: - HYPERPLASTIC POLYP. CLINICAL INFORMATION: Procedure: N/A Preoperative diagnosis: BRBRP Postoperative diagnosis: SAME SPECIMEN: A POLYP, COLORECT - SIGMOID POLYP GROSS DESCRIPTION: Received in formalin labeled sigmoid is a 0.4 cm pérez glistening soft tissue. TS - 1 Dictated by Cari DOYLE ([facility]) MICROSCOPIC DESCRIPTION: Slides reviewed. Electronically Signed by Pathology Report verified by [facility] Electronically signed by SONA RAY MD Sign out Date: 12/09/2017 12:40 Performing Lab: [facility], [address] [place] [address] Performed By: #### SPFR #### [place] [address] CBC Collected: 12/08/2017 Status: F Source: [facility] 10:21 AM [facility] REPOSITORY TYPE CODE TESTS RESULT OUT OF REFERENCE UNITS RANGE LAB WBC(LOINC) 4.50-10.80 10 3/mcL WBC 6.60 LAB RBCCT(LOINC 4.10-5.30 10 6/mcL ) Low RBC 3.17 LAB HGB(LOINC) 12.0-16.0 G/dL Low Hgb 9.7 LAB HCT(LOINC) 34.0-46.0 % Low Hct 27.6 LAB MCV(LOINC) 80.0-99.0 fL MCV 87.0 LAB MCH(LOINC) 27.0-33.0 pg MCH 30.6 LAB MCHC(LOINC) 32.0-36.0 G/dL MCHC 35.2 LAB RDW(LOINC) 11.5-15.5 % High RDW 16.0 LAB PLT(LOINC) 150-450 10 3/mcL Platelet 410 LAB MPV(LOINC) 6.6-10.5 fL Low MPV 6.4 Performed By: #### BMP, GFR, ANEU, ADIFF, CBC #### [place] [address] .AUTO DIFF Collected: 12/08/2017 Status: F Source: [facility] 10:21 AM [facility] REPOSITORY TYPE CODE TESTS RESULT OUT OF REFERENCE UNITS RANGE LAB NARESH(LOINC) 50.0-75.0 % Neutrophil % 74.0 LAB LYM(LOINC) 20.0-40.0 % Low Lymphocyte % 13.8 LAB MON(LOINC) 2.0-13.0 % Monocyte % 9.8 LAB EO(LOINC) 0.0-6.0 % Eosinophil % 1.8 LAB BAS(LOINC) 0.0-2.5 % Basophil % 0.6 LAB ABLYM(LOIN 0.90-4.32 10 3/mcL C) Lymphocyte, 0.90 Absolute LAB KADY(LOINC 0.09-1.40 10 3/mcL ) Monocyte, 0.60 Absolute LAB AEOS(LOINC 0.00-0.65 10 3/mcL ) Eosinophil, 0.10 Absolute LAB ABAS(LOINC 0.00-0.27 10 3/mcL ) Basophil, 0.00 Absolute Performed By: #### BMP, GFR, ANEU, ADIFF, CBC #### [place] [address] .NEUABS Collected: 12/08/2017 Status: F Source: [facility] 10:21 AM [facility] REPOSITORY TYPE CODE TESTS RESULT OUT OF REFERENCE UNITS RANGE LAB ANEU(LOINC) 2.25-8.10 10 3/mcL Neutrophil, 4.90 Absolute Performed By: #### ALBINO, GFR, ANEU, ADIFF, CBC #### [place] [address] BMP Collected: 12/08/2017 Status: F Source: [facility] 10:21 AM [facility] REPOSITORY TYPE CODE TESTS RESULT OUT OF REFERENCE UNITS RANGE LAB GLU(LOINC) 70-110 mg/dL Glucose Level 87 LAB NA(LOINC) 136-145 mEq/L Sodium Level 140 LAB K(LOINC) 3.5-5.0 mEq/L Potassium Level 3.9 LAB CL(LOINC) 98-110 mEq/L Chloride 108 LAB CO2(LOINC) 22-32 mEq/L CO2 23 LAB EBAL(LOINC 4.0-15.0 mEq/L ) Electrolyte Balance 9.0 LAB BUN(LOINC) 8.0-22.0 mg/dL BUN 14.0 LAB CRE(LOINC) 0.50-1.20 mg/dL Creatinine High Lvl (s) 1.25 LAB BC(LOINC) 10.0-22.0 ratio BUN/Creatinine 11.2 Ratio LAB CA(LOINC) 8.4-10.1 mg/dL Low Calcium Lvl 7.4 Performed By: #### BMP, GFR, ANEU, ADIFF, CBC #### [place] [address] .GFR Collected: 12/08/2017 Status: F Source: [facility] 10:21 AM [facility] REPOSITORY TYPE CODE TESTS RESULT OUT OF REFERENCE UNITS RANGE LAB GFRAA(LOINC ml/min/1.73 ) sqm GFR 53 [place] Result Comment: GFR Population mean for , Non- Americans Ages 20-29 = 116 mL/min/1.73 sq.m. Ages 30-39 = 107 mL/min/1.73 sq.m. Ages 40-49 = 99 mL/min/1.73 sq.m. Ages 50-59 = 93 mL/min/1.73 sq.m. Ages 60-69 = 85 mL/min/1.73 sq.m. Ages 70+ = 75 mL/min/1.73 sq.m. Chronic Kidney Disease: Less than 60 mL/min/1.73 square meters End Stage Renal Disease: Less than 15 mL/min/1.73 square meters LAB GFRNO(LOINC) ml/min/1.73sqm GFR Non- 44 Result Comment: GFR Population mean for , Non- Americans Ages 20-29 = 116 mL/min/1.73 sq.m. Ages 30-39 = 107 mL/min/1.73 sq.m. Ages 40-49 = 99 mL/min/1.73 sq.m. Ages 50-59 = 93 mL/min/1.73 sq.m. Ages 60-69 = 85 mL/min/1.73 sq.m. Ages 70+ = 75 mL/min/1.73 sq.m. Chronic Kidney Disease: Less than 60 mL/min/1.73 square meters End Stage Renal Disease: Less than 15 mL/min/1.73 square meters Performed By: #### BMP, GFR, ANEU, ADIFF, CBC #### [place] [address] XR ABDOMEN AP Observed: 12/07/2017 Status: F Source: [facility] 9:45 AM [facility] ORIGINAL XR ABDOMEN AP CLINICAL STATEMENT: diarrhea with abdominal distension. COMPARISON: Nuclear medicine GI blood loss imaging 12/03/2017 FINDINGS: There are distended loops of large bowel visible in the abdomen. Living if any small bowel gas is visible. No pneumoperitoneum is identified. Degenerative changes are present in the spine. IMPRESSION: Findings suggest a colonic obstruction. No pneumoperitoneum. Consider further evaluation with CT of the abdomen and pelvis with IV and po contrast. Interpreted By: Zhang Sanchez Preliminary Report By: Zhang Sanchez Electronically Signed By: Zhang Sanchez Dictated Date: 12/07/2017 6:02:20 PM Prelim Date: 12/07/2017 6:02:20 PM Sign Date: 12/07/2017 6:04:02 PM CBC Collected: 12/07/2017 Status: F Source: [facility] 4:46 AM [facility] REPOSITORY TYPE CODE TESTS RESULT OUT OF REFERENCE UNITS RANGE LAB WBC(LOINC) 4.50-10.80 10 3/mcL WBC 6.50 LAB RBCCT(LOINC 4.10-5.30 10 6/mcL ) Low RBC 3.00 LAB HGB(LOINC) 12.0-16.0 G/dL Low Hgb 9.1 LAB HCT(LOINC) 34.0-46.0 % Low Hct 26.4 LAB MCV(LOINC) 80.0-99.0 fL MCV 88.0 LAB MCH(LOINC) 27.0-33.0 pg MCH 30.4 LAB MCHC(LOINC) 32.0-36.0 G/dL MCHC 34.6 LAB RDW(LOINC) 11.5-15.5 % High RDW 16.1 LAB PLT(LOINC) 150-450 10 3/mcL Platelet 339 LAB MPV(LOINC) 6.6-10.5 fL Low MPV 6.3 Performed By: #### CBC, GFR, ADIFF, ANEU, BMP #### [place] [address] .AUTO DIFF Collected: 12/07/2017 Status: F Source: [facility] 4:46 AM [facility] REPOSITORY TYPE CODE TESTS RESULT OUT OF REFERENCE UNITS RANGE LAB NARESH(LOINC) 50.0-75.0 % Neutrophil % 71.3 LAB LYM(LOINC) 20.0-40.0 % Low Lymphocyte % 15.3 LAB MON(LOINC) 2.0-13.0 % Monocyte % 10.4 LAB EO(LOINC) 0.0-6.0 % Eosinophil % 2.3 LAB BAS(LOINC) 0.0-2.5 % Basophil % 0.7 LAB ABLYM(LOIN 0.90-4.32 10 3/mcL C) Lymphocyte, 1.00 Absolute LAB KADY(LOINC 0.09-1.40 10 3/mcL ) Monocyte, 0.70 Absolute LAB AEOS(LOINC 0.00-0.65 10 3/mcL ) Eosinophil, 0.20 Absolute LAB ABAS(LOINC 0.00-0.27 10 3/mcL ) Basophil, 0.00 Absolute Performed By: #### CBC, GFR, ADIFF, ANEU, BMP #### [place] [address] .NEUABS Collected: 12/07/2017 Status: F Source: [facility] 4:46 AM [facility] REPOSITORY TYPE CODE TESTS RESULT OUT OF REFERENCE UNITS RANGE LAB ANEU(LOINC) 2.25-8.10 10 3/mcL Neutrophil, 4.60 Absolute Performed By: #### CBC, GFR, ADIFF, ANEU, BMP #### [place] [address] BMP Collected: 12/07/2017 Status: F Source: [facility] 4:46 AM [facility] REPOSITORY TYPE CODE TESTS RESULT OUT OF REFERENCE UNITS RANGE LAB GLU(LOINC) 70-110 mg/dL Glucose High Level 122 LAB NA(LOINC) 136-145 mEq/L Sodium Level 139 LAB K(LOINC) 3.5-5.0 mEq/L Potassium Level 3.8 LAB CL(LOINC) 98-110 mEq/L Chloride High 111 LAB CO2(LOINC) 22-32 mEq/L Low CO2 17 LAB EBAL(LOINC 4.0-15.0 mEq/L ) Electrolyte Balance 11.0 LAB BUN(LOINC) 8.0-22.0 mg/dL BUN 18.0 LAB CRE(LOINC) 0.50-1.20 mg/dL Creatinine High Lvl (s) 1.38 LAB BC(LOINC) 10.0-22.0 ratio BUN/Creatinine 13.0 Ratio LAB CA(LOINC) 8.4-10.1 mg/dL Low Calcium Lvl 7.2 Performed By: #### CBC, GFR, ADIFF, ANEU, BMP #### [place] [address] .GFR Collected: 12/07/2017 Status: F Source: [facility] 4:46 AM [facility] REPOSITORY TYPE CODE TESTS RESULT OUT OF REFERENCE UNITS RANGE LAB GFRAA(LOINC ml/min/1.73 ) sqm GFR 47 [place]i Result Comment: GFR Population mean for , Non- Americans Ages 20-29 = 116 mL/min/1.73 sq.m. Ages 30-39 = 107 mL/min/1.73 sq.m. Ages 40-49 = 99 mL/min/1.73 sq.m. Ages 50-59 = 93 mL/min/1.73 sq.m. Ages 60-69 = 85 mL/min/1.73 sq.m. Ages 70+ = 75 mL/min/1.73 sq.m. Chronic Kidney Disease: Less than 60 mL/min/1.73 square meters End Stage Renal Disease: Less than 15 mL/min/1.73 square meters LAB GFRNO(LOINC) ml/min/1.73sqm GFR Non- 39 Result Comment: GFR Population mean for , Non- Americans Ages 20-29 = 116 mL/min/1.73 sq.m. Ages 30-39 = 107 mL/min/1.73 sq.m. Ages 40-49 = 99 mL/min/1.73 sq.m. Ages 50-59 = 93 mL/min/1.73 sq.m. Ages 60-69 = 85 mL/min/1.73 sq.m. Ages 70+ = 75 mL/min/1.73 sq.m. Chronic Kidney Disease: Less than 60 mL/min/1.73 square meters End Stage Renal Disease: Less than 15 mL/min/1.73 square meters Performed By: #### CBC, GFR, ADIFF, ANEU, BMP #### [address] [address] HH Collected: 12/06/2017 Status: F Source: [facility] 4:00 PM [facility] REPOSITORY TYPE CODE TESTS RESULT OUT OF RANGE REFERENCE UNITS LAB HGB(LOINC) 12.0-16.0 G/dL Low Hgb 9.0 LAB HCT(LOINC) 34.0-46.0 % Low Hct 27.0 Performed By: #### HH #### [address] [address] LAC Collected: 12/06/2017 Status: F Source: [facility] 9:41 AM [facility] REPOSITORY TYPE CODE TESTS RESULT OUT OF REFERENCE UNITS RANGE LAB LAC(LOINC) 0.2-2.0 mmol/L Lactic Acid 1.6 Lvl Performed By: #### TROPI, CBC, ADIFF, CMP, GFR, VBG, LAC, ANEU #### [address] [address] VBG Collected: 12/06/2017 Status: F Source: [facility] 9:41 AM [facility] REPOSITORY TYPE CODE TESTS RESULT OUT OF REFERENCE UNITS RANGE LAB PHV(LOINC) 7.380-7.460 Low pH Venous 7.277 LAB VPCO2(LOINC 41.0-51.0 mmHg ) pCO2 Edilberto 41.9 LAB PO2V(LOINC) 35.0-40.0 mmHg pO2 Edilberto 36.4 LAB HCO3V(LOINC 21.0-30.0 mmol/L ) Low HCO3 Edilberto 19.1 LAB TCO2V(LOINC 70.0-75.0 % ) Low TCO2 Venous 64.2 LAB SHANNAN(LOINC) -3.0-3.0 mmol/L Low BE Venous -7.2 Performed By: #### TROPI, CBC, ADIFF, CMP, GFR, VBG, LAC, ANEU #### [address] [address] CBC Collected: 12/06/2017 Status: F Source: [facility] 9:41 AM [facility] REPOSITORY TYPE CODE TESTS RESULT OUT OF REFERENCE UNITS RANGE LAB WBC(LOINC) 4.50-10.80 10 3/mcL WBC 8.90 LAB RBCCT(LOINC 4.10-5.30 10 6/mcL ) Low RBC 3.01 LAB HGB(LOINC) 12.0-16.0 G/dL Low Hgb 8.8 LAB HCT(LOINC) 34.0-46.0 % Low Hct 26.4 LAB MCV(LOINC) 80.0-99.0 fL MCV 87.5 LAB MCH(LOINC) 27.0-33.0 pg MCH 29.3 LAB MCHC(LOINC) 32.0-36.0 G/dL MCHC 33.5 LAB RDW(LOINC) 11.5-15.5 % High RDW 15.9 LAB PLT(LOINC) 150-450 10 3/mcL Platelet 369 LAB MPV(LOINC) 6.6-10.5 fL Low MPV 6.2 Performed By: #### TROPI, CBC, ADIFF, CMP, GFR, VBG, LAC, ANEU #### [address] [id number] .AUTO DIFF Collected: 12/06/2017 Status: F Source: [facility] 9:41 AM [facility] REPOSITORY TYPE CODE TESTS RESULT OUT OF REFERENCE UNITS RANGE LAB NARESH(LOINC) 50.0-75.0 % High Neutrophil % 81.1 LAB LYM(LOINC) 20.0-40.0 % Low Lymphocyte % 9.8 LAB MON(LOINC) 2.0-13.0 % Monocyte % 7.1 LAB EO(LOINC) 0.0-6.0 % Eosinophil % 1.2 LAB BAS(LOINC) 0.0-2.5 % Basophil % 0.8 LAB ABLYM(LOIN 0.90-4.32 10 3/mcL C) Lymphocyte, 0.90 Absolute LAB KADY(LOINC 0.09-1.40 10 3/mcL ) Monocyte, 0.60 Absolute LAB AEOS(LOINC 0.00-0.65 10 3/mcL ) Eosinophil, 0.10 Absolute LAB ABAS(LOINC 0.00-0.27 10 3/mcL ) Basophil, 0.10 Absolute Performed By: #### TROPI, CBC, ADIFF, CMP, GFR, VBG, LAC, ANEU #### [place] [id number] .NEUABS Collected: 12/06/2017 Status: F Source: [facility] 9:41 AM [facility] REPOSITORY TYPE CODE TESTS RESULT OUT OF REFERENCE UNITS RANGE LAB ANEU(LOINC) 2.25-8.10 10 3/mcL Neutrophil, 7.20 Absolute Performed By: #### TROPI, CBC, ADIFF, CMP, GFR, VBG, LAC, ANEU #### [address] [address] .GFR Collected: 12/06/2017 Status: F Source: [facility] 9:41 AM [facility] REPOSITORY TYPE CODE TESTS RESULT OUT OF REFERENCE UNITS RANGE LAB GFRAA(LOINC ml/min/1.73 ) sqm GFR 46 [place] Result Comment: GFR Population mean for , Non- Americans Ages 20-29 = 116 mL/min/1.73 sq.m. Ages 30-39 = 107 mL/min/1.73 sq.m. Ages 40-49 = 99 mL/min/1.73 sq.m. Ages 50-59 = 93 mL/min/1.73 sq.m. Ages 60-69 = 85 mL/min/1.73 sq.m. Ages 70+ = 75 mL/min/1.73 sq.m. Chronic Kidney Disease: Less than 60 mL/min/1.73 square meters End Stage Renal Disease: Less than 15 mL/min/1.73 square meters LAB GFRNO(LOINC) ml/min/1.73sqm GFR Non- 38 Result Comment: GFR Population mean for , Non- Americans Ages 20-29 = 116 mL/min/1.73 sq.m. Ages 30-39 = 107 mL/min/1.73 sq.m. Ages 40-49 = 99 mL/min/1.73 sq.m. Ages 50-59 = 93 mL/min/1.73 sq.m. Ages 60-69 = 85 mL/min/1.73 sq.m. Ages 70+ = 75 mL/min/1.73 sq.m. Chronic Kidney Disease: Less than 60 mL/min/1.73 square meters End Stage Renal Disease: Less than 15 mL/min/1.73 square meters Performed By: #### TROPI, CBC, ADIFF, CMP, GFR, VBG, LAC, ANEU #### [place] [address] CMP Collected: 12/06/2017 Status: F Source: [facility] 9:41 AM [facility] TYPE CODE TESTS RESULT OUT OF REFERENCE UNITS RANGE LAB GLU(LOINC) 70-110 mg/dL Glucose Level 107 LAB NA(LOINC) 136-145 mEq/L Sodium Level 140 LAB K(LOINC) 3.5-5.0 mEq/L Potassium Level 3.8 LAB CL(LOINC) 98-110 mEq/L Chloride 109 LAB CO2(LOINC) 22-32 mEq/L Low CO2 20 LAB EBAL(LOINC 4.0-15.0 mEq/L ) Electrolyte Balance 11.0 LAB BUN(LOINC) 8.0-22.0 mg/dL BUN 22.0 LAB CRE(LOINC) 0.50-1.20 mg/dL Creatinine High Lvl (s) 1.41 LAB BC(LOINC) 10.0-22.0 ratio BUN/Creatinine 15.6 Ratio LAB CA(LOINC) 8.4-10.1 mg/dL Low Calcium Lvl 7.6 LAB PROT(LOINC 6.0-8.5 G/dL ) Low Total Protein 4.5 LAB ALB(LOINC) 3.2-4.8 G/dL Low Albumin Level 1.5 LAB GLB(LOINC) 1.5-3.8 G/dL Globulin 3.0 LAB AG(LOINC) 0.9-1.6 ratio Low A/G Ratio 0.5 LAB BILT(LOINC 0.2-1.2 mg/dL ) Bili Total 0.2 LAB AP(LOINC) 38-126 U/L Alk Phos 78 LAB AST(LOINC) 8-34 U/L Low AST/SGOT 6 LAB ALT(LOINC) 10-49 U/L Low ALT/SGPT <6 Performed By: #### TROPI, CBC, ADIFF, CMP, GFR, VBG, LAC, ANEU #### [address] [address] TROPI Collected: 12/06/2017 Status: F Source: [employer] 9:41 AM [facility] REPOSITORY TYPE CODE TESTS RESULT OUT OF REFERENCE UNITS RANGE LAB TROPI(LOINC 0.000-0.040 ng/mL ) Troponin I <0.015 Result Comment: Troponin I reference ranges (12/06/13): 0.00-0.040 ng/mL Negative and non-diagnostic. >0.040 ng/mL Consistent with cardiac damage, increased clinical risk and possibility of myocardial infarction. Serial measurements, a rise & fall in test results, clinical history, appropriate symptoms and/or ECG changes may help assess possibility of VT. *Other non-acute coronary syndrome conditions such as CHF, myocarditis, pulmonary emboli, sepsis and cardiac surgery could result in myocardial damage and increased troponin levels. Performed By: #### TROPI, CBC, ADIFF, CMP, GFR, VBG, LAC, ANEU #### [address] [address] RBC (PRODUCT) Collected: 12/06/2017 Status: F Source: [employer] 8:01 AM [facility] REPOSITORY TYPE CODE TESTS RESULT OUT OF REFERENCE UNITS RANGE LAB RBCPR(LOINC ) RBC Product RBC Ready Ready for Pickup Performed By: #### RBCP #### [place] [address] HH Collected: 12/06/2017 Status: F Source: [facility] 4:56 AM [facility] REPOSITORY TYPE CODE TESTS RESULT OUT OF RANGE REFERENCE UNITS LAB HGB(LOINC) 12.0-16.0 G/dL Low Hgb 8.0 LAB HCT(LOINC) 34.0-46.0 % Low Hct 23.4 Performed By: #### HH #### [place] [address] BMP Collected: 12/06/2017 Status: F Source: [facility] 4:56 AM [facility]POSIT[facility] TYPE CODE TESTS RESULT OUT OF REFERENCE UNITS RANGE LAB GLU(LOINC) 70-110 mg/dL Glucose Level 86 LAB NA(LOINC) 136-145 mEq/L Sodium Level 139 LAB K(LOINC) 3.5-5.0 mEq/L Potassium Level 3.7 LAB CL(LOINC) 98-110 mEq/L Chloride High 111 LAB CO2(LOINC) 22-32 mEq/L Low CO2 17 LAB EBAL(LOINC 4.0-15.0 mEq/L ) Electrolyte Balance 11.0 LAB BUN(LOINC) 8.0-22.0 mg/dL BUN High 25.0 LAB CRE(LOINC) 0.50-1.20 mg/dL Creatinine High Lvl (s) 1.44 LAB BC(LOINC) 10.0-22.0 ratio BUN/Creatinine 17.4 Ratio LAB CA(LOINC) 8.4-10.1 mg/dL Low Calcium Lvl 7.2 Performed By: #### GFR, BMP #### [place] [address] .GFR Collected: 12/06/2017 Status: F Source: [facility] 4:56 AM [facility] REPOSITORY TYPE CODE TESTS RESULT OUT OF REFERENCE UNITS RANGE LAB GFRAA(LOINC ml/min/1.73 ) sqm GFR 45 [place]i Result Comment: GFR Population mean for , Non- Americans Ages 20-29 = 116 mL/min/1.73 sq.m. Ages 30-39 = 107 mL/min/1.73 sq.m. Ages 40-49 = 99 mL/min/1.73 sq.m. Ages 50-59 = 93 mL/min/1.73 sq.m. Ages 60-69 = 85 mL/min/1.73 sq.m. Ages 70+ = 75 mL/min/1.73 sq.m. Chronic Kidney Disease: Less than 60 mL/min/1.73 square meters End Stage Renal Disease: Less than 15 mL/min/1.73 square meters LAB GFRNO(LOINC) ml/min/1.73sqm GFR Non- 37 Result Comment: GFR Population mean for , Non- Americans Ages 20-29 = 116 mL/min/1.73 sq.m. Ages 30-39 = 107 mL/min/1.73 sq.m. Ages 40-49 = 99 mL/min/1.73 sq.m. Ages 50-59 = 93 mL/min/1.73 sq.m. Ages 60-69 = 85 mL/min/1.73 sq.m. Ages 70+ = 75 mL/min/1.73 sq.m. Chronic Kidney Disease: Less than 60 mL/min/1.73 square meters End Stage Renal Disease: Less than 15 mL/min/1.73 square meters Performed By: #### GFR, BMP #### [address] [address] Collected: 12/06/2017 Status: F Source: [facility] 12:00 AM [facility]POSITORY TYPE CODE TESTS RESULT OUT OF RANGE REFERENCE UNITS LAB HGB(LOINC) 12.0-16.0 G/dL Low Hgb 8.2 LAB HCT(LOINC) 34.0-46.0 % Low Hct 24.5 Performed By: #### HH #### [address] [address] Collected: 12/05/2017 Status: F Source: [facility] 7:30 PM [facility] REPOSITORY TYPE CODE TESTS RESULT OUT OF RANGE REFERENCE UNITS LAB HGB(LOINC) 12.0-16.0 G/dL Low Hgb 8.8 LAB HCT(LOINC) 34.0-46.0 % Low Hct 25.8 Performed By: #### HH #### [address] [address] HH Collected: 12/05/2017 Status: F Source: [facility] 11:44 AM [facility]POSIT[facility] TYPE CODE TESTS RESULT OUT OF RANGE REFERENCE UNITS LAB HGB(LOINC) 12.0-16.0 G/dL Low Hgb 8.8 LAB HCT(LOINC) 34.0-46.0 % Low Hct 26.0 Performed By: #### HH #### [place] [address] CBC Collected: 12/05/2017 Status: F Source: [facility] 5:22 AM [facility]POSITORY TYPE CODE TESTS RESULT OUT OF REFERENCE UNITS RANGE LAB WBC(LOINC) 4.50-10.80 10 3/mcL WBC 10.30 LAB RBCCT(LOINC 4.10-5.30 10 6/mcL ) Low RBC 3.07 LAB HGB(LOINC) 12.0-16.0 G/dL Low Hgb 9.2 LAB HCT(LOINC) 34.0-46.0 % Low Hct 27.0 LAB MCV(LOINC) 80.0-99.0 fL MCV 88.0 LAB MCH(LOINC) 27.0-33.0 pg MCH 29.9 LAB MCHC(LOINC) 32.0-36.0 G/dL MCHC 34.0 LAB RDW(LOINC) 11.5-15.5 % High RDW 15.8 LAB PLT(LOINC) 150-450 10 3/mcL Platelet 343 LAB MPV(LOINC) 6.6-10.5 fL Low MPV 6.4 Performed By: #### BMP, CBC, GFR, ADIFF, ANEU #### [place] [address] .AUTO DIFF Collected: 12/05/2017 Status: F Source: [facility] 5:22 AM [facility] REPOSITORY TYPE CODE TESTS RESULT OUT OF REFERENCE UNITS RANGE LAB NARESH(LOINC) 50.0-75.0 % Neutrophil % 74.8 LAB LYM(LOINC) 20.0-40.0 % Low Lymphocyte % 10.6 LAB MON(LOINC) 2.0-13.0 % Monocyte % 12.6 LAB EO(LOINC) 0.0-6.0 % Eosinophil % 1.3 LAB BAS(LOINC) 0.0-2.5 % Basophil % 0.7 LAB ABLYM(LOIN 0.90-4.32 10 3/mcL C) Lymphocyte, 1.10 Absolute LAB KADY(LOINC 0.09-1.40 10 3/mcL ) Monocyte, 1.30 Absolute LAB AEOS(LOINC 0.00-0.65 10 3/mcL ) Eosinophil, 0.10 Absolute LAB ABAS(LOINC 0.00-0.27 10 3/mcL ) Basophil, 0.10 Absolute Performed By: #### BMP, CBC, GFR, ADIFF, ANEU #### [place] [address] .NEUABS Collected: 12/05/2017 Status: F Source: [facility] 5:22 AM [facility] REPOSITORY TYPE CODE TESTS RESULT OUT OF REFERENCE UNITS RANGE LAB ANEU(LOINC) 2.25-8.10 10 3/mcL Neutrophil, 7.70 Absolute Performed By: #### BMP, CBC, GFR, ADIFF, ANEU #### [place] [address] BMP Collected: 12/05/2017 Status: F Source: [employer] 5:22 AM [facility] REPOSITORY TYPE CODE TESTS RESULT OUT OF REFERENCE UNITS RANGE LAB GLU(LOINC) 70-110 mg/dL Low Glucose Level 69 LAB NA(LOINC) 136-145 mEq/L Sodium Level 139 LAB K(LOINC) 3.5-5.0 mEq/L Potassium Level 4.1 LAB CL(LOINC) 98-110 mEq/L Chloride 110 LAB CO2(LOINC) 22-32 mEq/L Low CO2 18 LAB EBAL(LOINC 4.0-15.0 mEq/L ) Electrolyte Balance 11.0 LAB BUN(LOINC) 8.0-22.0 mg/dL BUN High 35.0 LAB CRE(LOINC) 0.50-1.20 mg/dL Creatinine High Lvl (s) 1.43 LAB BC(LOINC) 10.0-22.0 ratio High BUN/Creatinine 24.5 Ratio LAB CA(LOINC) 8.4-10.1 mg/dL Low Calcium Lvl 7.5 Performed By: #### BMP, CBC, GFR, ADIFF, ANEU #### [place] [id number] .GFR Collected: 12/05/2017 Status: F Source: [place] [employer] 5:22 AM [facility] REPOSITORY TYPE CODE TESTS RESULT OUT OF REFERENCE UNITS RANGE LAB GFRAA(LOINC ml/min/1.73 ) sqm GFR 46 [place] Result Comment: GFR Population mean for , Non- Americans Ages 20-29 = 116 mL/min/1.73 sq.m. Ages 30-39 = 107 mL/min/1.73 sq.m. Ages 40-49 = 99 mL/min/1.73 sq.m. Ages 50-59 = 93 mL/min/1.73 sq.m. Ages 60-69 = 85 mL/min/1.73 sq.m. Ages 70+ = 75 mL/min/1.73 sq.m. Chronic Kidney Disease: Less than 60 mL/min/1.73 square meters End Stage Renal Disease: Less than 15 mL/min/1.73 square meters LAB GFRNO(LOINC) ml/min/1.73sqm GFR Non- 38 Result Comment: GFR Population mean for , Non- Americans Ages 20-29 = 116 mL/min/1.73 sq.m. Ages 30-39 = 107 mL/min/1.73 sq.m. Ages 40-49 = 99 mL/min/1.73 sq.m. Ages 50-59 = 93 mL/min/1.73 sq.m. Ages 60-69 = 85 mL/min/1.73 sq.m. Ages 70+ = 75 mL/min/1.73 sq.m. Chronic Kidney Disease: Less than 60 mL/min/1.73 square meters End Stage Renal Disease: Less than 15 mL/min/1.73 square meters Performed By: #### BMP, CBC, GFR, ADIFF, ANEU #### [address] [id number] HH Collected: 12/05/2017 Status: F Source: [facility] 12:48 AM [facility] REPOSITORY TYPE CODE TESTS RESULT OUT OF RANGE REFERENCE UNITS LAB HGB(LOINC) 12.0-16.0 G/dL Low Hgb 9.0 LAB HCT(LOINC) 34.0-46.0 % Low Hct 26.3 Performed By: #### HH #### [address] [id number] Collected: 12/04/2017 Status: F Source: [facility] 6:33 PM [facility] REPOSITORY TYPE CODE TESTS RESULT OUT OF RANGE REFERENCE UNITS LAB HGB(LOINC) 12.0-16.0 G/dL Low Hgb 9.0 LAB HCT(LOINC) 34.0-46.0 % Low Hct 26.9 Performed By: #### HH #### [address] [id number] HH Collected: 12/04/2017 Status: F Source: [facility] 6:02 PM [facility] REPOSITORY TYPE CODE TESTS RESULT OUT OF RANGE REFERENCE UNITS LAB HGB(LOINC) 12.0-16.0 G/dL Low Hgb 9.6 LAB HCT(LOINC) 34.0-46.0 % Low Hct 28.3 Performed By: #### HH #### [address] [id number] HH Collected: 12/04/2017 Status: F Source: [facility] 12:02 PM [facility] REPOSITORY TYPE CODE TESTS RESULT OUT OF RANGE REFERENCE UNITS LAB HGB(LOINC) 12.0-16.0 G/dL Low Hgb 9.4 LAB HCT(LOINC) 34.0-46.0 % Low Hct 27.9 Performed By: #### HH #### [place] [id number] CBC Collected: 12/04/2017 Status: F Source: [facility] 5:58 AM [facility] REPOSITORY TYPE CODE TESTS RESULT OUT OF REFERENCE UNITS RANGE LAB WBC(LOINC) 4.50-10.80 10 3/mcL High WBC 11.30 LAB RBCCT(LOINC 4.10-5.30 10 6/mcL ) Low RBC 3.17 LAB HGB(LOINC) 12.0-16.0 G/dL Low Hgb 9.4 LAB HCT(LOINC) 34.0-46.0 % Low Hct 27.3 LAB MCV(LOINC) 80.0-99.0 fL MCV 86.0 LAB MCH(LOINC) 27.0-33.0 pg MCH 29.5 LAB MCHC(LOINC) 32.0-36.0 G/dL MCHC 34.3 LAB RDW(LOINC) 11.5-15.5 % High RDW 15.7 LAB PLT(LOINC) 150-450 10 3/mcL Platelet 363 LAB MPV(LOINC) 6.6-10.5 fL MPV 6.7 Performed By: #### JACE, CBC, GFR, BMP, MG, ANEU #### [address] [address] .AUTO DIFF Collected: 12/04/2017 Status: F Source: [facility] 5:58 AM [facility] REPOSITORY TYPE CODE TESTS RESULT OUT OF REFERENCE UNITS RANGE LAB NARESH(LOINC) 50.0-75.0 % High Neutrophil % 75.3 LAB LYM(LOINC) 20.0-40.0 % Low Lymphocyte % 11.2 LAB MON(LOINC) 2.0-13.0 % Monocyte % 11.8 LAB EO(LOINC) 0.0-6.0 % Eosinophil % 1.2 LAB BAS(LOINC) 0.0-2.5 % Basophil % 0.5 LAB ABLYM(LOIN 0.90-4.32 10 3/mcL C) Lymphocyte, 1.30 Absolute LAB KADY(LOINC 0.09-1.40 10 3/mcL ) Monocyte, 1.30 Absolute LAB AEOS(LOINC 0.00-0.65 10 3/mcL ) Eosinophil, 0.10 Absolute LAB ABAS(LOINC 0.00-0.27 10 3/mcL ) Basophil, 0.10 Absolute Performed By: #### JACE, CBC, GFR, BMP, MG, ANEU #### [address] [address] .NEUABS Collected: 12/04/2017 Status: F Source: [facility] 5:58 AM [facility] REPOSITORY TYPE CODE TESTS RESULT OUT OF REFERENCE UNITS RANGE LAB ANEU(LOINC) 2.25-8.10 10 3/mcL High Neutrophil, 8.50 Absolute Performed By: #### JACE, CBC, GFR, BMP, MG, ANEU #### [address] [address] BMP Collected: 12/04/2017 Status: F Source: [facility] 5:58 AM [facility] REPOSITORY TYPE CODE TESTS RESULT OUT OF REFERENCE UNITS RANGE LAB GLU(LOINC) 70-110 mg/dL Glucose Level 89 LAB NA(LOINC) 136-145 mEq/L Sodium Level 138 LAB K(LOINC) 3.5-5.0 mEq/L Potassium Level 4.3 LAB CL(LOINC) 98-110 mEq/L Chloride 108 LAB CO2(LOINC) 22-32 mEq/L Low CO2 15 LAB EBAL(LOINC 4.0-15.0 mEq/L ) Electrolyte Balance 15.0 LAB BUN(LOINC) 8.0-22.0 mg/dL BUN High 47.0 LAB CRE(LOINC) 0.50-1.20 mg/dL Creatinine High Lvl (s) 1.64 LAB BC(LOINC) 10.0-22.0 ratio High BUN/Creatinine 28.7 Ratio LAB CA(LOINC) 8.4-10.1 mg/dL Low Calcium Lvl 7.6 Performed By: #### ADIFF, CBC, GFR, BMP, MG, ANEU #### [place] [address] MG Collected: 12/04/2017 Status: F Source: [employer] 5:58 AM [facility] REPOSITORY TYPE CODE TESTS RESULT OUT OF REFERENCE UNITS RANGE LAB MG(LOINC) 1.6-2.4 mg/dL Magnesium Lvl 1.8 Performed By: #### ADIFF, CBC, GFR, BMP, MG, ANEU #### [place] [address] .GFR Collected: 12/04/2017 Status: F Source: [employer] 5:58 AM [facility] REPOSITORY TYPE CODE TESTS RESULT OUT OF REFERENCE UNITS RANGE LAB GFRAA(LOINC ml/min/1.73 ) sqm GFR 39 [place] Result Comment: GFR Population mean for , Non- Americans Ages 20-29 = 116 mL/min/1.73 sq.m. Ages 30-39 = 107 mL/min/1.73 sq.m. Ages 40-49 = 99 mL/min/1.73 sq.m. Ages 50-59 = 93 mL/min/1.73 sq.m. Ages 60-69 = 85 mL/min/1.73 sq.m. Ages 70+ = 75 mL/min/1.73 sq.m. Chronic Kidney Disease: Less than 60 mL/min/1.73 square meters End Stage Renal Disease: Less than 15 mL/min/1.73 square meters LAB GFRNO(LOINC) ml/min/1.73sqm GFR Non- 32 Result Comment: GFR Population mean for , Non- Americans Ages 20-29 = 116 mL/min/1.73 sq.m. Ages 30-39 = 107 mL/min/1.73 sq.m. Ages 40-49 = 99 mL/min/1.73 sq.m. Ages 50-59 = 93 mL/min/1.73 sq.m. Ages 60-69 = 85 mL/min/1.73 sq.m. Ages 70+ = 75 mL/min/1.73 sq.m. Chronic Kidney Disease: Less than 60 mL/min/1.73 square meters End Stage Renal Disease: Less than 15 mL/min/1.73 square meters Performed By: #### ADIFF, CBC, GFR, BMP, MG, ANEU #### [address] Collected: 12/04/2017 Status: F Source: [employer] 1:32 AM [facility] REPOSITORY TYPE CODE TESTS RESULT OUT OF RANGE REFERENCE UNITS LAB HGB(LOINC) 12.0-16.0 G/dL Low Hgb 9.3 LAB HCT(LOINC) 34.0-46.0 % Low Hct 27.7 Performed By: #### HH #### [address] Collected: 12/03/2017 Status: F Source: [employer] 2:03 PM [facility] REPOSITORY TYPE CODE TESTS RESULT OUT OF RANGE REFERENCE UNITS LAB HGB(LOINC) 12.0-16.0 G/dL Abnormal Alert Hgb 6.8 LAB HCT(LOINC) 34.0-46.0 % Low Hct 20.8 Performed By: #### #### [place] [address] NM GASTROINTESTINAL BLOOD Observed: 12/03/2017 Status: F Source: [employer] [facility] 1:00 PM [facility] REPOSITORY ORIGINAL NM GASTROINTESTINAL BLOOD LOSS IMAGING CLINICAL STATEMENT: GI bleed. Patient reports bright red stools for one month, including bloody stool this afternoon. COMPARISON: None. TECHNIQUE: Radiopharmaceutical: Tc-99m SnCI IV Dose:20 mCi Labeling of RBCs with an in vitro technique Flow exam for 60 seconds Dynamic planar images of the abdomen and pelvis for 60 minutes Lateral view of the rectosigmoid at 60 minutes FINDINGS: Distribution of radiolabeled RBCs is somewhat atypical within the LEFT upper quadrant. No prior imaging is available for comparison and this likely represents blood pool within the LEFT hepati c lobe or LEFT kidney. Distribution pattern may also be caused by a photopenic focus within the lateral LEFT hepatic lobe secondary to space occupying lesion such as a cyst or mass. Distribution of radi olabeled RBCs throughout the abdomen and pelvis is otherwise normal. There is no extravasation of RBCs into the gastrointestinal tract. IMPRESSION: 1. No active GI bleeding site is identified. 2. Atypical distribution of tracer within the LEFT upper quadrant. This is favored to represent normal hepatic and renal blood pool or focal defect within the LEFT hepatic lobe as described. Nonemergent CT abdomen with contrast could be considered if definitive diagnosis is desired. I have personally reviewed the images of this examination and agree with the resident's findings and interpretation. Interpreted By: Darian Weeks MD Preliminary Report By: Naila Vieyra DO Electronically Signed By: Darian Weeks MD Dictated Date: 12/03/2017 4:00:37 PM Prelim Date: 12/03/2017 4:17:44 PM Sign Date: 12/03/2017 4:29:47 PM RBC (PRODUCT) Collected: 12/03/2017 Status: F Source: [facility] 11:16 AM [facility] REPOSITORY TYPE CODE TESTS RESULT OUT OF REFERENCE UNITS RANGE LAB RBCPR(LOINC ) RBC Product RBC Ready Ready for Pickup Performed By: #### RBCP #### [address] [address] HH Collected: 12/03/2017 Status: F Source: [facility] 10:48 AM [facility] REPOSITORY TYPE CODE TESTS RESULT OUT OF RANGE REFERENCE UNITS LAB HGB(LOINC) 12.0-16.0 G/dL Low Hgb 7.3 LAB HCT(LOINC) 34.0-46.0 % Low Hct 22.3 Performed By: #### HH #### [address] [address] MABO Collected: 12/03/2017 Status: F Source: [facility] 10:48 AM [facility] REPOSITORY TYPE CODE TESTS RESULT OUT OF RANGE REFERENCE UNITS LAB ABORH(LOINC ) Unknown ABO/Rh O NEG Interp Performed By: #### ABOM, ANSM #### [place] [address] MABS Collected: 12/03/2017 Status: F Source: [facility] 10:48 AM [facility] REPOSITORY TYPE CODE TESTS RESULT OUT OF REFERENCE UNITS RANGE LAB ANSM(LOINC ) Antibody Negative ABSC Screen Manual Performed By: #### KEITH ALDRIDGE #### [place] [address] HH Collected: 12/03/2017 Status: F Source: [facility] 8:48 AM [facility] REPOSITORY TYPE CODE TESTS RESULT OUT OF RANGE REFERENCE UNITS LAB HGB(LOINC) 12.0-16.0 G/dL Low Hgb 7.6 LAB HCT(LOINC) 34.0-46.0 % Low Hct 23.6 Performed By: #### HH #### [place] [address] CBC Collected: 12/03/2017 Status: F Source: [facility] 2:43 AM [facility] REPOSITORY TYPE CODE TESTS RESULT OUT OF REFERENCE UNITS RANGE LAB WBC(LOINC) 4.50-10.80 10 3/mcL WBC 9.10 LAB RBCCT(LOINC 4.10-5.30 10 6/mcL ) Low RBC 2.92 LAB HGB(LOINC) 12.0-16.0 G/dL Low Hgb 8.3 LAB HCT(LOINC) 34.0-46.0 % Low Hct 25.1 LAB MCV(LOINC) 80.0-99.0 fL MCV 86.0 LAB MCH(LOINC) 27.0-33.0 pg MCH 28.4 LAB MCHC(LOINC) 32.0-36.0 G/dL MCHC 33.0 LAB RDW(LOINC) 11.5-15.5 % High RDW 15.8 LAB PLT(LOINC) 150-450 10 3/mcL Platelet 391 LAB MPV(LOINC) 6.6-10.5 fL MPV 6.8 Performed By: #### ADIFF, MG, CBC, GFR, CMP, ANEU #### [place] [address] .AUTO DIFF Collected: 12/03/2017 Status: F Source: [facility] 2:43 AM [facility] REPOSITORY TYPE CODE TESTS RESULT OUT OF REFERENCE UNITS RANGE LAB NARESH(LOINC) 50.0-75.0 % Neutrophil % 67.3 LAB LYM(LOINC) 20.0-40.0 % Low Lymphocyte % 16.5 LAB MON(LOINC) 2.0-13.0 % Monocyte High % 13.1 LAB EO(LOINC) 0.0-6.0 % Eosinophil % 2.6 LAB BAS(LOINC) 0.0-2.5 % Basophil % 0.5 LAB ABLYM(LOIN 0.90-4.32 10 3/mcL C) Lymphocyte, 1.50 Absolute LAB KADY(LOINC 0.09-1.40 10 3/mcL ) Monocyte, 1.20 Absolute LAB AEOS(LOINC 0.00-0.65 10 3/mcL ) Eosinophil, 0.20 Absolute LAB ABAS(LOINC 0.00-0.27 10 3/mcL ) Basophil, 0.00 Absolute Performed By: #### ADIFF, MG, CBC, GFR, CMP, ANEU #### [place] [address] .NEUABS Collected: 12/03/2017 Status: F Source: [facility] 2:43 [facility] REPOSITORY TYPE CODE TESTS RESULT OUT OF REFERENCE UNITS RANGE LAB ANEU(LOINC) 2.25-8.10 10 3/mcL Neutrophil, 6.10 Absolute Performed By: #### ADIFF, MG, CBC, GFR, CMP, ANEU #### [place] [address] MG Collected: 12/03/2017 Status: F Source: [facility] 2:43 AM [facility] REPOSITORY TYPE CODE TESTS RESULT OUT OF REFERENCE UNITS RANGE LAB MG(LOINC) 1.6-2.4 mg/dL Magnesium Lvl 1.8 Performed By: #### ADIFF, MG, CBC, GFR, CMP, ANEU #### [place] [address] CMP Collected: 12/03/2017 Status: F Source: [facility] 2:43 AM [facility] REPOSITORY TYPE CODE TESTS RESULT OUT OF REFERENCE UNITS RANGE LAB GLU(LOINC) 70-110 mg/dL Glucose Level 84 LAB NA(LOINC) 136-145 mEq/L Sodium Level 139 LAB K(LOINC) 3.5-5.0 mEq/L Potassium Level 4.1 LAB CL(LOINC) 98-110 mEq/L Chloride 109 LAB CO2(LOINC) 22-32 mEq/L Low CO2 20 LAB EBAL(LOINC 4.0-15.0 mEq/L ) Electrolyte Balance 10.0 LAB BUN(LOINC) 8.0-22.0 mg/dL BUN High 56.0 LAB CRE(LOINC) 0.50-1.20 mg/dL Creatinine High Lvl (s) 1.80 LAB BC(LOINC) 10.0-22.0 ratio High BUN/Creatinine 31.1 Ratio LAB CA(LOINC) 8.4-10.1 mg/dL Low Calcium Lvl 7.8 LAB PROT(LOINC 6.0-8.5 G/dL ) Low Total Protein 4.5 LAB ALB(LOINC) 3.2-4.8 G/dL Low Albumin Level 1.5 LAB GLB(LOINC) 1.5-3.8 G/dL Globulin 3.0 LAB AG(LOINC) 0.9-1.6 ratio Low A/G Ratio 0.5 LAB BILT(LOINC 0.2-1.2 mg/dL ) Bili Total 0.2 LAB AP(LOINC) 38-126 U/L Alk Phos 77 LAB AST(LOINC) 8-34 U/L AST/SGOT 9 LAB ALT(LOINC) 10-49 U/L Low ALT/SGPT 8 Performed By: #### ADIFF, MG, CBC, GFR, CMP, ANEU #### [place] [address] .GFR Collected: 12/03/2017 Status: F Source: [facility] 2:43 AM [facility]POS[facility] TYPE CODE TESTS RESULT OUT OF REFERENCE UNITS RANGE LAB GFRAA(LOINC ml/min/1.73 ) sqm GFR 35 [place] Result Comment: GFR Population mean for , Non- Americans Ages 20-29 = 116 mL/min/1.73 sq.m. Ages 30-39 = 107 mL/min/1.73 sq.m. Ages 40-49 = 99 mL/min/1.73 sq.m. Ages 50-59 = 93 mL/min/1.73 sq.m. Ages 60-69 = 85 mL/min/1.73 sq.m. Ages 70+ = 75 mL/min/1.73 sq.m. Chronic Kidney Disease: Less than 60 mL/min/1.73 square meters End Stage Renal Disease: Less than 15 mL/min/1.73 square meters LAB GFRNO(LOINC) ml/min/1.73sqm GFR Non- 29 Result Comment: GFR Population mean for , Non- Americans Ages 20-29 = 116 mL/min/1.73 sq.m. Ages 30-39 = 107 mL/min/1.73 sq.m. Ages 40-49 = 99 mL/min/1.73 sq.m. Ages 50-59 = 93 mL/min/1.73 sq.m. Ages 60-69 = 85 mL/min/1.73 sq.m. Ages 70+ = 75 mL/min/1.73 sq.m. Chronic Kidney Disease: Less than 60 mL/min/1.73 square meters End Stage Renal Disease: Less than 15 mL/min/1.73 square meters Performed By: #### ADIFF, MG, CBC, GFR, CMP, ANEU #### [address] [address] Collected: 12/02/2017 Status: F Source: [facility] 8:10 PM [facility] REPOSITORY TYPE CODE TESTS RESULT OUT OF RANGE REFERENCE UNITS LAB HGB(LOINC) 12.0-16.0 G/dL Low Hgb 8.5 LAB HCT(LOINC) 34.0-46.0 % Low Hct 25.3 Performed By: #### HH #### [address] [address] XR ANKLE MINIMUM 3 Observed: 12/02/2017 Status: F Source: [facility] VIEWS LEFT 4:00 PM [facility] REPOSITORY ORIGINAL XR ANKLE MINIMUM 3 VIEWS LEFT CLINICAL STATEMENT: known former dislocation, pain, displaced hardware. COMPARISON: 11/14/2017 FINDINGS: Lateral plate and screw fixation of distal fibular fracture is noted. There are no hardware complications. 3 long threaded screws have been placed across the syndesmosis. There is anatomic ali gnment and position across the medial malleolus fracture. External fixator device is present. Soft tissue swelling is most pronounced about the ankle. Wound VAC is identified. IMPRESSION: Status post ORIF LEFT ankle fracture/dislocation. Anatomic alignment and position demonstrated. Interpreted By: Sparkle Preston MD Preliminary Report By: Sparkle Preston MD Electronically Signed By: Sparkle Preston MD Dictated Date: 12/02/2017 4:56:46 PM Prelim Date: 12/02/2017 4:56:46 PM Sign Date: 12/02/2017 5:00:23 PM HH Collected: 12/02/2017 Status: F Source: [facility] 3:17 PM [facility] REPOSITORY TYPE CODE TESTS RESULT OUT OF RANGE REFERENCE UNITS LAB HGB(LOINC) 12.0-16.0 G/dL Low Hgb 9.3 LAB HCT(LOINC) 34.0-46.0 % Low Hct 28.2 Performed By: #### HH #### [address] [address] CBC Collected: 12/02/2017 Status: F Source: [facility] 5:14 AM [facility] REPOSITORY TYPE CODE TESTS RESULT OUT OF REFERENCE UNITS RANGE LAB WBC(LOINC) 4.60-10.80 10 3/mcL WBC 9.60 LAB RBCCT(LOINC 4.20-5.40 10 6/mcL ) Low RBC 3.17 LAB HGB(LOINC) 12.0-16.0 G/dL Low Hgb 9.2 LAB HCT(LOINC) 37.0-47.0 % Low Hct 26.6 LAB MCV(LOINC) 80.0-94.0 fL MCV 83.8 LAB MCH(LOINC) 27.0-31.2 pg MCH 29.1 LAB MCHC(LOINC) 33.0-37.0 G/dL MCHC 34.8 LAB RDW(LOINC) 11.5-14.5 % High RDW 16.1 LAB PLT(LOINC) 130-400 10 3/mcL High Platelet 413 LAB MPV(LOINC) 7.4-10.4 fL Low MPV 6.5 Performed By: #### ANEU, MARION MCCORMICK, CBC #### [facility] [address] [place], [place] [address] #### GFR, BMP #### [address] [address] .AUTO DIFF Collected: 12/02/2017 Status: F Source: [facility] 5:14 AM [facility] REPOSITORY TYPE CODE TESTS RESULT OUT OF REFERENCE UNITS RANGE LAB NARESH(LOINC) 37.0-80.0 % Neutrophil % 67.8 LAB LYM(LOINC) 10.0-50.0 % Lymphocyte % 17.2 LAB MON(LOINC) 1.7-13.0 % Monocyte % 12.1 LAB EO(LOINC) 0.0-7.0 % Eosinophil % 2.2 LAB BAS(LOINC) 0.0-2.5 % Basophil % 0.7 LAB ABLYM(LOIN 0.77-3.85 10 3/mcL C) Lymphocyte, 1.60 Absolute LAB KADY(LOINC 0.15-1.00 10 3/mcL ) High Monocyte, 1.20 Absolute LAB AEOS(LOINC 0.00-0.40 10 3/mcL ) Eosinophil, 0.20 Absolute LAB ABAS(LOINC 0.00-0.19 10 3/mcL ) Basophil, 0.10 Absolute Performed By: #### JACE GUTIERREZ CAION, CBC #### [place] [id number] #### GFR, BMP #### [place] [address] .NEUABS Collected: 12/02/2017 Status: F Source: [facility] 5:14 [facility] REPOSITORY TYPE CODE TESTS RESULT OUT OF REFERENCE UNITS RANGE LAB ANEU(LOINC) 2.85-6.16 10 3/mcL High Neutrophil, 6.50 Absolute Performed By: #### JACE GUTIERREZ CAION, CBC #### [place] [id number] #### GFR, BMP #### [place] [address] BMP Collected: 12/02/2017 Status: F Source: [facility] 5:14 [facility] REPOSITORY TYPE CODE TESTS RESULT OUT OF REFERENCE UNITS RANGE LAB GLU(LOINC) 70-105 mg/dL Glucose High Level 112 LAB NA(LOINC) 136-145 mmol/L Low Sodium Level 134 LAB K(LOINC) 3.5-5.1 mmol/L Potassium Level 4.8 LAB CL(LOINC) 98-107 mmol/L Chloride 102 LAB CO2(LOINC) 22-29 mmol/L CO2 23 LAB EBAL(LOINC mEq/L ) Electrolyte Balance 9.0 LAB BUN(LOINC) 7-18 mg/dL BUN High 66 LAB CRE(LOINC) 0.55-1.02 mg/dL Creatinine High Lvl (s) 1.91 LAB BC(LOINC) 7-27 ratio High BUN/Creatinine 35 Ratio LAB CA(LOINC) 8.4-10.2 mg/dL Calcium Lvl 8.5 Performed By: #### JACE GUTIERREZ CAION, CBC #### [facility] [address] [place], [place] [address] #### GFR, BMP #### [facility] [address] [place] [address] .GFR Collected: 12/02/2017 Status: F Source: [facility] 5[facility] AM [facility] REPOSIT[facility] TYPE CODE TESTS RESULT OUT OF REFERENCE UNITS RANGE LAB GFRAA(LOINC ml/min/1.73 ) sqm GFR 33 [place] Result Comment: GFR Population mean for , Non- Americans Ages 20-29 = 116 mL/min/1.73 sq.m. Ages 30-39 = 107 mL/min/1.73 sq.m. Ages 40-49 = 99 mL/min/1.73 sq.m. Ages 50-59 = 93 mL/min/1.73 sq.m. Ages 60-69 = 85 mL/min/1.73 sq.m. Ages 70+ = 75 mL/min/1.73 sq.m. Chronic Kidney Disease: Less than 60 mL/min/1.73 square meters End Stage Renal Disease: Less than 15 mL/min/1.73 square meters LAB GFRNO(LOINC) ml/min/1.73sqm GFR Non- 27 Result Comment: GFR Population mean for , Non- Americans Ages 20-29 = 116 mL/min/1.73 sq.m. Ages 30-39 = 107 mL/min/1.73 sq.m. Ages 40-49 = 99 mL/min/1.73 sq.m. Ages 50-59 = 93 mL/min/1.73 sq.m. Ages 60-69 = 85 mL/min/1.73 sq.m. Ages 70+ = 75 mL/min/1.73 sq.m. Chronic Kidney Disease: Less than 60 mL/min/1.73 square meters End Stage Renal Disease: Less than 15 mL/min/1.73 square meters Performed By: #### JACE GUTIERREZ CAION, CBC #### [facility] [address] [place], [place] [address] #### GFR, BMP #### [facility] [address] [place] [address] CAITRAM Collected: 12/02/2017 Status: F Source: [facility] 5:14 AM [facility] REPOSITORY TYPE CODE TESTS RESULT OUT OF REFERENCE UNITS RANGE LAB MARION(LOINC 1.12-1.32 mmol/L ) Calcium 1.21 Ionized Performed By: #### JACE GUTIERREZ CAION, CBC #### [facility] [address] [place], [place] [address] #### GFR, BMP #### [facility] [address] [place] [address] Observed: 12/02/2017 Status: F Source: [facility] CDPCR 1:11 AM [facility] REPOSITORY . MICRO - Microbiology PROCEDURE: Clostridium difficile PCR [^1 *1] SOURCE: Stool BODY SITE: COLLECTED DATE/TIME: 12/02/2017 01:11 EDT RECEIVED DATE/TIME: 12/02/2017 15:42 EDT START DATE/TIME: 12/02/2017 15:43 EDT FREE TEXT SOURCE: FINAL REPORTS Final Report [] Verified Date/Time/Personnel: 12/02/2017 23:51 EDT Clostridium toxin B gene tcdB gene DNA DETECTED. A Positive C. difficile assay detection result does not necessarily indicate the presence of viable organisms. It does however indicate the presence of the tcdB gene and allows for presumptive detection of a Clostridium difficile toxigenic organism. This assay cannot be used for species identification as it does not contain primers and probes specific to Clostridium difficile. As with all PCR-based in vitro diagnostic tests, extremely low levels of target below the limit of of the assay may be detected, but results may not be reproducible. Infection control has been notified. Interpretive Data ^1: Clostridium difficile PCR As with all in vitro diagnostic tests, positive and negative predictive values are highly dependent on prevalence. The BD MAX C. difficile PCR Assay performance may vary depending on the prevalence and population tested. Performing Locations *1: This test was performed at: [facility], [address] [place] [address], [id number] [place] [address] Performed By: #### CDP #### [address] [address] HH Collected: 12/02/2017 Status: F Source: [facility] 12:12 AM [facility] REPOSITORY TYPE CODE TESTS RESULT OUT OF RANGE REFERENCE UNITS LAB HGB(LOINC) 12.0-16.0 G/dL Low Hgb 9.0 LAB HCT(LOINC) 37.0-47.0 % Low Hct 26.4 Performed By: #### HH #### [address] [address] RBC (PRODUCT) Collected: 12/01/2017 Status: F Source: [facility] 9:46 PM [facility] REPOSITORY TYPE CODE TESTS RESULT OUT OF REFERENCE UNITS RANGE LAB RBCPR(LOINC ) RBC Product RBC Ready Ready for Pickup Performed By: #### RBCP #### [address] [address] Collected: 12/01/2017 Status: F Source: [facility] 8:48 PM [facility] REPOSITORY TYPE CODE TESTS RESULT OUT OF RANGE REFERENCE UNITS LAB HGB(LOINC) 12.0-16.0 G/dL Low Hgb 7.7 LAB HCT(LOINC) 37.0-47.0 % Low Hct 22.8 Performed By: #### HH #### [address] [address] RBC (PRODUCT) Collected: 12/01/2017 Status: F Source: [facility] 6:01 PM [facility] REPOSITORY TYPE CODE TESTS RESULT OUT OF REFERENCE UNITS RANGE LAB RBCPR(LOINC ) RBC Product RBC Ready Ready for Pickup Performed By: #### RBCP #### [address] [address] XR FOOT TWO VIEWS Observed: 12/01/2017 Status: F Source: [facility] LEFT 4:50 PM [facility] REPOSITORY ORIGINAL XR FOOT TWO VIEWS LEFT CLINICAL STATEMENT: pin placement. COMPARISON: LEFT ankle x-ray on 11/14/2017. FINDINGS: There is a anthony that passes through the hindfoot in the region of the calcaneus. A second anthony is seen with tip projected anterior to the proximal shaft of the LEFT 1st metatarsal. It appears this anthony was previously passing through the 1st metatarsal shaft but has been displaced. Interpreted By: Aden Baldwin MD Preliminary Report By: Aden Baldwin MD Electronically Signed By: Aden Baldwin MD Dictated Date: 12/02/2017 3:32:00 AM Prelim Date: 12/02/2017 3:32:00 AM Sign Date: 12/02/2017 3:36:11 AM GEL ABO Collected: 12/01/2017 Status: F Source: [facility] 12:20 PM [facility] REPOSITORY TYPE CODE TESTS RESULT OUT OF RANGE REFERENCE UNITS LAB ABORH(LOINC ) Unknown ABO/Rh O NEG Interp Performed By: #### ABOG, ANSG #### [address] [address] GEL ABS Collected: 12/01/2017 Status: F Source: [facility] 12:20 PM [facility] REPOSITORY TYPE CODE TESTS RESULT OUT OF REFERENCE UNITS RANGE LAB ANSG(LOINC ) Antibody Negative ABSC Screen Gel Performed By: #### ABOG, ANSG #### [address] [address] RBC (PRODUCT) Collected: 12/01/2017 Status: F Source: [facility] 11:28 AM [facility] REPOSITORY TYPE CODE TESTS RESULT OUT OF REFERENCE UNITS RANGE LAB RBCPR(LOINC ) RBC Product RBC Ready Ready for Pickup Performed By: #### RBCP #### [address] [address] CBC Collected: 12/01/2017 Status: F Source: [facility] 7:15 AM [facility] REPOSITORY TYPE CODE TESTS RESULT OUT OF REFERENCE UNITS RANGE LAB WBC(LOINC) 4.60-10.80 10 3/mcL High WBC 11.50 LAB RBCCT(LOINC 4.20-5.40 10 6/mcL ) Low RBC 2.48 LAB HGB(LOINC) 12.0-16.0 G/dL Low Hgb 7.0 LAB HCT(LOINC) 37.0-47.0 % Low Hct 21.3 LAB MCV(LOINC) 80.0-94.0 fL MCV 85.9 LAB MCH(LOINC) 27.0-31.2 pg MCH 28.0 LAB MCHC(LOINC) 33.0-37.0 G/dL Low MCHC 32.6 LAB RDW(LOINC) 11.5-14.5 % High RDW 15.9 LAB PLT(LOINC) 130-400 10 3/mcL High Platelet 527 LAB MPV(LOINC) 7.4-10.4 fL Low MPV 6.7 Performed By: #### CBC, ANEU, ADIFF #### [address] [address] .AUTO DIFF Collected: 12/01/2017 Status: F Source: [facility] 7:15 AM [facility] REPOSITORY TYPE CODE TESTS RESULT OUT OF REFERENCE UNITS RANGE LAB NARESH(LOINC) 37.0-80.0 % Neutrophil % 68.6 LAB LYM(LOINC) 10.0-50.0 % Lymphocyte % 18.3 LAB MON(LOINC) 1.7-13.0 % Monocyte % 10.8 LAB EO(LOINC) 0.0-7.0 % Eosinophil % 1.9 LAB BAS(LOINC) 0.0-2.5 % Basophil % 0.4 LAB ABLYM(LOIN 0.77-3.85 10 3/mcL C) Lymphocyte, 2.10 Absolute LAB KADY(LOINC 0.15-1.00 10 3/mcL ) High Monocyte, 1.20 Absolute LAB AEOS(LOINC 0.00-0.40 10 3/mcL ) Eosinophil, 0.20 Absolute LAB ABAS(LOINC 0.00-0.19 10 3/mcL ) Basophil, 0.10 Absolute Performed By: #### CBC, ANEU, ADIFF #### [address] [id number] .NEUABS Collected: 12/01/2017 Status: F Source: [facility] 7:15 AM [facility] REPOSITORY TYPE CODE TESTS RESULT OUT OF REFERENCE UNITS RANGE LAB ANEU(LOINC) 2.85-6.16 10 3/mcL High Neutrophil, 7.90 Absolute Performed By: #### CBC, ANEU, ADIFF #### [address] [id number] CBC Collected: 11/24/2017 Status: F Source: [facility] 5:21 AM [facility] REPOSITORY TYPE CODE TESTS RESULT OUT OF REFERENCE UNITS RANGE LAB WBC(LOINC) 4.60-10.80 10 3/mcL WBC 10.20 LAB RBCCT(LOINC 4.20-5.40 10 6/mcL ) Low RBC 2.83 LAB HGB(LOINC) 12.0-16.0 G/dL Low Hgb 8.3 LAB HCT(LOINC) 37.0-47.0 % Low Hct 24.4 LAB MCV(LOINC) 80.0-94.0 fL MCV 86.2 LAB MCH(LOINC) 27.0-31.2 pg MCH 29.4 LAB MCHC(LOINC) 33.0-37.0 G/dL MCHC 34.1 LAB RDW(LOINC) 11.5-14.5 % High RDW 16.0 LAB PLT(LOINC) 130-400 10 3/mcL High Platelet 440 LAB MPV(LOINC) 7.4-10.4 fL Low MPV 7.3 Performed By: #### ADIFF, ANEU, CBC #### [facility] [address], [place] [address] #### CMP, GFR #### [place] [id number] .AUTO DIFF Collected: 11/24/2017 Status: F Source: [facility] 5:21 [facility] EMERGENCY DEPARTMENT REPOSITORY TYPE CODE TESTS RESULT OUT OF REFERENCE UNITS RANGE LAB NARESH(LOINC) 37.0-80.0 % Neutrophil % 69.2 LAB LYM(LOINC) 10.0-50.0 % Lymphocyte % 13.2 LAB MON(LOINC) 1.7-13.0 % Monocyte High % 16.4 LAB EO(LOINC) 0.0-7.0 % Eosinophil % 0.8 LAB BAS(LOINC) 0.0-2.5 % Basophil % 0.4 LAB ABLYM(LOIN 0.77-3.85 10 3/mcL C) Lymphocyte, 1.30 Absolute LAB KADY(LOINC 0.15-1.00 10 3/mcL ) High Monocyte, 1.70 Absolute LAB AEOS(LOINC 0.00-0.40 10 3/mcL ) Eosinophil, 0.10 Absolute LAB ABAS(LOINC 0.00-0.19 10 3/mcL ) Basophil, 0.00 Absolute Performed By: #### ADIFF, ANEU, CBC #### [id number] [place], [place] [address] #### CMP, GFR #### [address] [address] .NEUABS Collected: 11/24/2017 Status: F Source: [facility] 5:21 AM [facility] REPOSITORY TYPE CODE TESTS RESULT OUT OF REFERENCE UNITS RANGE LAB ANEU(LOINC) 2.85-6.16 10 3/mcL High Neutrophil, 7.10 Absolute Performed By: #### ADIFF, ANEU, CBC #### [address] [place], [place] [address] #### CMP, GFR #### [address] [address] CMP Collected: 11/24/2017 Status: F Source: [facility] 5:21 AM [facility] REPOSITORY TYPE CODE TESTS RESULT OUT OF REFERENCE UNITS RANGE LAB GLU(LOINC) 70-105 mg/dL Glucose High Level 125 LAB NA(LOINC) 136-145 mmol/L Sodium Level 137 LAB K(LOINC) 3.5-5.1 mmol/L Potassium Level 3.9 LAB CL(LOINC) 98-107 mmol/L Chloride 101 LAB CO2(LOINC) 22-29 mmol/L CO2 24 LAB EBAL(LOINC mEq/L ) Electrolyte Balance 12.0 LAB BUN(LOINC) 7-18 mg/dL BUN High 40 LAB CRE(LOINC) 0.55-1.02 mg/dL Creatinine High Lvl (s) 1.69 LAB BC(LOINC) 7-27 ratio BUN/Creatinine 24 Ratio LAB CA(LOINC) 8.4-10.2 mg/dL Calcium Lvl 8.5 LAB PROT(LOINC 6.4-8.2 G/dL ) Low Total Protein 5.2 LAB ALB(LOINC) 3.5-5.0 G/dL Low Albumin Level 1.8 LAB GLB(LOINC) G/dL Globulin 3.4 LAB AG(LOINC) 1.1-2.5 ratio Low A/G Ratio 0.5 LAB BILT(LOINC 0.2-1.0 mg/dL ) Bili Total 0.3 LAB AP(LOINC) 40-135 U/L Alk Phos 125 LAB AST(LOINC) 10-40 U/L AST/SGOT 17 LAB ALT(LOINC) 10-35 U/L Low ALT/SGPT 7 Performed By: #### MATT MCCORMICK, CBC #### [place] [address] [address] #### CMP, GFR #### [facility] [address] [place] [id number] .GFR Collected: 11/24/2017 Status: F Source: [facility] 5:21 AM [facility] REPOSITORY TYPE CODE TESTS RESULT OUT OF REFERENCE UNITS RANGE LAB GFRAA(LOINC ml/min/1.73 ) sqm GFR 38 [place]i Result Comment: GFR Population mean for , Non- Americans Ages 20-29 = 116 mL/min/1.73 sq.m. Ages 30-39 = 107 mL/min/1.73 sq.m. Ages 40-49 = 99 mL/min/1.73 sq.m. Ages 50-59 = 93 mL/min/1.73 sq.m. Ages 60-69 = 85 mL/min/1.73 sq.m. Ages 70+ = 75 mL/min/1.73 sq.m. Chronic Kidney Disease: Less than 60 mL/min/1.73 square meters End Stage Renal Disease: Less than 15 mL/min/1.73 square meters LAB GFRNO(LOINC) ml/min/1.73sqm GFR Non- 31 Result Comment: GFR Population mean for , Non- Americans Ages 20-29 = 116 mL/min/1.73 sq.m. Ages 30-39 = 107 mL/min/1.73 sq.m. Ages 40-49 = 99 mL/min/1.73 sq.m. Ages 50-59 = 93 mL/min/1.73 sq.m. Ages 60-69 = 85 mL/min/1.73 sq.m. Ages 70+ = 75 mL/min/1.73 sq.m. Chronic Kidney Disease: Less than 60 mL/min/1.73 square meters End Stage Renal Disease: Less than 15 mL/min/1.73 square meters Performed By: #### JACE ANEU, CBC #### [id number] [place], [place] [address] #### CMP, GFR #### [address] [address] CBC Collected: 11/16/2017 Status: F Source: [facility] 5:57 AM [facility] REPOSITORY TYPE CODE TESTS RESULT OUT OF REFERENCE UNITS RANGE LAB WBC(LOINC) 4.50-10.80 10 3/mcL High WBC 12.40 LAB RBCCT(LOINC 4.10-5.30 10 6/mcL ) Low RBC 3.27 LAB HGB(LOINC) 12.0-16.0 G/dL Low Hgb 9.5 LAB HCT(LOINC) 34.0-46.0 % Low Hct 29.6 LAB MCV(LOINC) 80.0-99.0 fL MCV 90.5 LAB MCH(LOINC) 27.0-33.0 pg MCH 28.9 LAB MCHC(LOINC) 32.0-36.0 G/dL Low MCHC 31.9 LAB RDW(LOINC) 11.5-15.5 % High RDW 16.3 LAB PLT(LOINC) 150-450 10 3/mcL Platelet 438 LAB MPV(LOINC) 6.6-10.5 fL MPV 7.5 Performed By: #### ANEU, ADIFF, CBC, BMP, GFR #### [address] [address] .AUTO DIFF Collected: 11/16/2017 Status: F Source: [facility] 5:57 AM [facility] REPOSITORY TYPE CODE TESTS RESULT OUT OF REFERENCE UNITS RANGE LAB NARESH(LOINC) 50.0-75.0 % High Neutrophil % 80.5 LAB LYM(LOINC) 20.0-40.0 % Low Lymphocyte % 9.5 LAB MON(LOINC) 2.0-13.0 % Monocyte % 8.8 LAB EO(LOINC) 0.0-6.0 % Eosinophil % 0.9 LAB BAS(LOINC) 0.0-2.5 % Basophil % 0.3 LAB ABLYM(LOIN 0.90-4.32 10 3/mcL C) Lymphocyte, 1.20 Absolute LAB KADY(LOINC 0.09-1.40 10 3/mcL ) Monocyte, 1.10 Absolute LAB AEOS(LOINC 0.00-0.65 10 3/mcL ) Eosinophil, 0.10 Absolute LAB ABAS(LOINC 0.00-0.27 10 3/mcL ) Basophil, 0.00 Absolute Performed By: #### ANEU, ADIFF, CBC, BMP, GFR #### [address] [address] .NEUABS Collected: 11/16/2017 Status: F Source: [facility] 5:57 AM [facility] REPOSITORY TYPE CODE TESTS RESULT OUT OF REFERENCE UNITS RANGE LAB ANEU(LOINC) 2.25-8.10 10 3/mcL High Neutrophil, 10.00 Absolute Performed By: #### ANEU, ADIFF, CBC, BMP, GFR #### [place] [address] BMP Collected: 11/16/2017 Status: F Source: [facility] 5:57 AM [facility] REPOSITORY TYPE CODE TESTS RESULT OUT OF REFERENCE UNITS RANGE LAB GLU(LOINC) 70-110 mg/dL Glucose High Level 117 LAB NA(LOINC) 136-145 mEq/L Sodium Level 138 LAB K(LOINC) 3.5-5.0 mEq/L Potassium Level 4.0 LAB CL(LOINC) 98-110 mEq/L Chloride 102 LAB CO2(LOINC) 22-32 mEq/L CO2 22 LAB EBAL(LOINC 4.0-15.0 mEq/L ) Electrolyte Balance 14.0 LAB BUN(LOINC) 8.0-22.0 mg/dL BUN High 27.0 LAB CRE(LOINC) 0.50-1.20 mg/dL Creatinine High Lvl (s) 1.38 LAB BC(LOINC) 10.0-22.0 ratio BUN/Creatinine 19.6 Ratio LAB CA(LOINC) 8.4-10.1 mg/dL Low Calcium Lvl 7.7 Performed By: #### ANEU, ADIFF, CBC, BMP, GFR #### [place] [address] .GFR Collected: 11/16/2017 Status: F Source: [facility] 5:57 AM [facility] REPOSITORY TYPE CODE TESTS RESULT OUT OF REFERENCE UNITS RANGE LAB GFRAA(LOINC ml/min/1.73 ) sqm GFR 47 [place]i Result Comment: GFR Population mean for , Non- Americans Ages 20-29 = 116 mL/min/1.73 sq.m. Ages 30-39 = 107 mL/min/1.73 sq.m. Ages 40-49 = 99 mL/min/1.73 sq.m. Ages 50-59 = 93 mL/min/1.73 sq.m. Ages 60-69 = 85 mL/min/1.73 sq.m. Ages 70+ = 75 mL/min/1.73 sq.m. Chronic Kidney Disease: Less than 60 mL/min/1.73 square meters End Stage Renal Disease: Less than 15 mL/min/1.73 square meters LAB GFRNO(LOINC) ml/min/1.73sqm GFR Non- 39 Result Comment: GFR Population mean for , Non- Americans Ages 20-29 = 116 mL/min/1.73 sq.m. Ages 30-39 = 107 mL/min/1.73 sq.m. Ages 40-49 = 99 mL/min/1.73 sq.m. Ages 50-59 = 93 mL/min/1.73 sq.m. Ages 60-69 = 85 mL/min/1.73 sq.m. Ages 70+ = 75 mL/min/1.73 sq.m. Chronic Kidney Disease: Less than 60 mL/min/1.73 square meters End Stage Renal Disease: Less than 15 mL/min/1.73 square meters Performed By: #### ANEU, ADIFF, CBC, BMP, GFR #### [place] [address] Observed: 11/15/2017 Status: F Source: [facility] 5:49 PM [facility] REPOSITORY . MICRO - Microbiology PROCEDURE: Culture Wound Deep Aerobe/Anaerobe w Gram Stain [*1] SOURCE: Wound (deep) BODY SITE: Ankle L COLLECTED DATE/TIME: 11/15/2017 17:49 EDT RECEIVED DATE/TIME: 11/15/2017 18:21 EDT START DATE/TIME: 11/15/2017 18:22 EDT FREE TEXT SOURCE: #2 LEFT MEDIAL ANKLE FINAL REPORTS Final Report [] Verified Date/Time/Personnel: 11/20/2017 13:45 EDT Few Pseudomonas aeruginosa Refer to previous culture for susceptibility. [id number] No anaerobes isolated at 96 hours. PRELIMINARY REPORTS Preliminary Report [] Verified Date/Time/Personnel: 11/17/2017 10:12 EDT Few Pseudomonas aeruginosa Refer to previous culture for susceptibility. [id number] No anaerobes isolated to date. Preliminary Report [] Verified Date/Time/Personnel: 11/16/2017 11:33 EDT Few Non Fermentering Gram Negative Rods Final report to follow. No anaerobes isolated to date. STAINS GS [] Verified Date/Time/Personnel: 11/15/2017 18:54 EDT 2+ Polymorphonuclear cells No organisms seen. Performing Locations *1: This test was performed at: [facility], [address] [place] [address], [facility] , [facility] Performed By: #### CWDP #### [address] [address] Observed: 11/15/2017 Status: F Source: [facility] 5:11 PM [facility] REPOSITORY . MICRO - Microbiology PROCEDURE: Culture Wound Deep Aerobe/Anaerobe w Gram Stain [*1] SOURCE: Wound (deep) BODY SITE: Ankle L COLLECTED DATE/TIME: 11/15/2017 17:11 EDT RECEIVED DATE/TIME: 11/15/2017 17:35 EDT START DATE/TIME: 11/15/2017 17:36 EDT FREE TEXT SOURCE: FINAL REPORTS Final Report [] Verified Date/Time/Personnel: 11/20/2017 13:43 EDT Light Pseudomonas aeruginosa No anaerobes isolated at 96 hours. PRELIMINARY REPORTS Preliminary Report [] Verified Date/Time/Personnel: 11/17/2017 10:10 EDT Light Pseudomonas aeruginosa No anaerobes isolated to date. Preliminary Report [] Verified Date/Time/Personnel: 11/16/2017 11:31 EDT Light Non Fermentering Gram Negative Rods Final identification and KHARI to follow. No anaerobes isolated to date. STAINS GS [] Verified Date/Time/Personnel: 11/15/2017 17:59 EDT 2+ Polymorphonuclear cells 1+ Gram Negative Rods SUSCEPTIBILITY RESULTS Pseudomonas aeruginosa Antibiotic KHARI Dilutn KHARI Interp Ceftazidime <=1 Susceptible Gentamicin <=4 Susceptible Levofloxacin <=2 Susceptible Meropenem <=1 Susceptible Piperacillin/ <=16 Susceptible Tazobactam Tobramycin <=4 Susceptible Performing Locations *1: This test was performed at: [facility], [address] [place] [address], [id number] Performed By: #### CWDP #### [address] [address] XR FLUORO 1-2 HRS Observed: 11/15/2017 Status: F Source: [employer] [facility] TIME 3:00 PM [facility] REPOSITORY ORIGINAL Fluoroscopic supervision/intraprocedural imaging: HISTORY: Fracture LEFT ankle Region/procedure: Intraoperative imaging LEFT ankle Fluoroscopy time: 19.1 seconds Dose: 0.81 mGy 3-D dose if applicable: N/A DLP (mGycm) if applicable: N/A Digital images: 7 Images were obtained during instrumentation and hardware placement. Please see detailed procedure note for additional findings. Interpreted By: Zhang Nolasco MD Preliminary Report By: Zhang Nolasco MD Electronically Signed By: Zhang Nolasco MD Dictated Date: 11/15/2017 7:04:26 PM Prelim Date: 11/15/2017 7:04:26 PM Sign Date: 11/15/2017 7:05:06 PM XR ANKLE MINIMUM 3 Observed: 11/14/2017 Status: F Source: [place] [employer] [facility] LEFT 10:30 AM [facility] REPOSITORY ORIGINAL XR ANKLE MINIMUM 3 VIEWS LEFT CLINICAL STATEMENT: pain/known fx. Follow-up examination. COMPARISON: 11/11/2017, 11/09/2017 FINDINGS: Mid tibial and transcalcaneal external fixation hardware are unchanged in appearance. The tibiotalar articulation is disrupted with posterior and lateral subluxation of the talus relative to t he tibia measuring approximately 4.5 cm and 3.5 cm, respectively. The obliquely oriented displaced distal fibular fracture demonstrates worsened distraction and slight lateral angulation of the distal f racture fragment by approximately 2.8 cm and 30 degrees. The distal fracture fragment is comminuted. The medial malleolus fracture fragment measures approximately 2.2 cm in maximal dimension, not significantly changed in orientation as compared to the prior exam. IMPRESSION: Interval disruption of the tibiotalar articulation with posterior and lateral dislocation of the talus with respect to the tibia and worsening angulation/displacement of the distal fibular fracture. I have personally reviewed the images of this examination and agree with the resident's findings and interpretation Interpreted By: Darian Weeks MD Preliminary Report By: Armando Mark MD Electronically Signed By: Darian Weeks MD Dictated Date: 11/14/2017 4:11:55 PM Prelim Date: 11/14/2017 4:17:44 PM Sign Date: 11/14/2017 4:36:45 PM CBC Collected: 11/14/2017 Status: F Source: [facility] 3:50 AM [facility] REPOSITORY TYPE CODE TESTS RESULT OUT OF REFERENCE UNITS RANGE LAB WBC(LOINC) 4.50-10.80 10 3/mcL High WBC 12.70 LAB RBCCT(LOINC 4.10-5.30 10 6/mcL ) Low RBC 3.38 LAB HGB(LOINC) 12.0-16.0 G/dL Low Hgb 9.9 LAB HCT(LOINC) 34.0-46.0 % Low Hct 30.0 LAB MCV(LOINC) 80.0-99.0 fL MCV 88.8 LAB MCH(LOINC) 27.0-33.0 pg MCH 29.2 LAB MCHC(LOINC) 32.0-36.0 G/dL MCHC 32.8 LAB RDW(LOINC) 11.5-15.5 % High RDW 15.9 LAB PLT(LOINC) 150-450 10 3/mcL Platelet 393 LAB MPV(LOINC) 6.6-10.5 fL MPV 7.6 Performed By: #### CBC, DIFF, MORPH #### [place] [address] .MANUAL DIFF Collected: 11/14/2017 Status: F Source: [facility] 3:50 AM [facility] REPOSITORY TYPE CODE TESTS RESULT OUT OF REFERENCE UNITS RANGE LAB LIMIT(LOIN C) Cells Counted 100 LAB NEUM(LOINC 50.0-75.0 % ) Neutrophil %, High Manual 80.0 LAB LYMM(LOINC 20.0-40.0 % ) Lymphocyte %, Low Manual 13.0 LAB MONM(LOINC 2.0-13.0 % ) Monocyte %, Manual 5.0 LAB EOM(LOINC) 0.0-6.0 % Eosinophil %, Manual 0.0 LAB BASM(LOINC 0.0-2.5 % ) Basophil %, Manual 0.0 LAB META(LOINC % ) Metamyelocyte 1.0 LAB MYEL(LOINC % ) Myelocyte 1.0 LAB ANEUM(LOIN 2.25-8.10 10 3/mcL C) Neutrophil, Abs High Manual 10.16 LAB ABLYMM([place] 0.90-4.32 10 3/mcL NC) Lymphocyte, Abs Manual 1.65 LAB AMONM(LOIN 0.09-1.40 10 3/mcL C) Monocyte, Abs Manual 0.64 LAB AEOSM(LOIN 0.00-0.65 10 3/mcL C) Eosinophil, Abs Manual 0.00 LAB ABASM(LOIN 0.00-0.27 10 3/mcL C) Basophil, Abs Manual 0.00 Performed By: #### CBC, DIFF, MORPH #### [place] [address] .MORPH Collected: 11/14/2017 Status: F Source: [facility] 3:50 AM [facility] REPOSITORY TYPE CODE TESTS RESULT OUT OF REFERENCE UNITS RANGE LAB PLTE(LOINC ) Platelet Estimate Normal LAB ANIS(LOINC ) Anisocytosis Slight Performed By: #### CBC, DIFF, MORPH #### [place] [address] XR ABDOMEN COMPLETE Observed: 11/13/2017 Status: F Source: [place] W/DECUB/ERECT 12:15 PM [facility] REPOSITORY ORIGINAL XR ABDOMEN COMPLETE W/DECUB/ERECT, 2 VIEWS CLINICAL STATEMENT: eval constipation. COMPARISON: None. FINDINGS: Supine views of the abdomen were acquired for total of 4 images. There is a large volume of stool within the RIGHT hemicolon extending to the proximal transverse colon. There is gaseous disten tion of the transverse colon to 8.8 cm, tapering to normal caliber distally. There are no dilated small bowel loops. No gross free intraperitoneal air is identified. 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 IMPRESSION: Large colonic stool burden with gaseous distention of colon with distal bowel gas. Findings are likely relate to constipation or localized colonic ileus. No gross free air. Serial radiographs may be obtained to assess for resolution. I have personally reviewed the images of this examination and agree with the resident's findings and interpretation Interpreted By: Darian Weeks MD Preliminary Report By: Armando Mark MD Electronically Signed By: Darian Weeks MD Dictated Date: 11/13/2017 4:03:53 PM Prelim Date: 11/13/2017 4:09:05 PM Sign Date: 11/13/2017 4:16:37 PM CBC Collected: 11/13/2017 Status: F Source: [facility] 10:00 AM [facility] REPOSITORY TYPE CODE TESTS RESULT OUT OF REFERENCE UNITS RANGE LAB WBC(LOINC) 4.50-10.80 10 3/mcL High WBC 13.70 LAB RBCCT(LOINC 4.10-5.30 10 6/mcL ) Low RBC 3.22 LAB HGB(LOINC) 12.0-16.0 G/dL Low Hgb 9.2 LAB HCT(LOINC) 34.0-46.0 % Low Hct 28.5 LAB MCV(LOINC) 80.0-99.0 fL MCV 88.5 LAB MCH(LOINC) 27.0-33.0 pg MCH 28.8 LAB MCHC(LOINC) 32.0-36.0 G/dL MCHC 32.5 LAB RDW(LOINC) 11.5-15.5 % High RDW 16.1 LAB PLT(LOINC) 150-450 10 3/mcL Platelet 410 LAB MPV(LOINC) 6.6-10.5 fL MPV 7.7 Performed By: #### MORPH, CBC, DIFF #### [place] [address] .MANUAL DIFF Collected: 11/13/2017 Status: F Source: [facility] 10:00 AM [facility] REPOSITORY TYPE CODE TESTS RESULT OUT OF REFERENCE UNITS RANGE LAB LIMIT(LOIN C) Cells Counted 100 LAB NEUM(LOINC 50.0-75.0 % ) High Neutrophil %, 78.0 Manual LAB LYMM(LOINC 20.0-40.0 % ) Low Lymphocyte %, 10.0 Manual LAB MONM(LOINC 2.0-13.0 % ) Monocyte %, Manual 7.0 LAB EOM(LOINC) 0.0-6.0 % Eosinophil %, 0.0 Manual LAB BASM(LOINC 0.0-2.5 % ) Basophil %, Manual 0.0 LAB BAND(LOINC 0.0-5.0 % ) Bands 2.0 LAB MYEL(LOINC % ) Myelocyte 3.0 LAB ANEUM(LOIN 2.25-8.10 10 3/mcL C) High Neutrophil, Abs 10.96 Manual LAB ABLYMM([place] 0.90-4.32 10 3/mcL NC) Lymphocyte, Abs 1.37 Manual LAB AMONM(LOIN 0.09-1.40 10 3/mcL C) Monocyte, Abs 0.96 Manual LAB AEOSM(LOIN 0.00-0.65 10 3/mcL C) Eosinophil, Abs 0.00 Manual LAB ABASM(LOIN 0.00-0.27 10 3/mcL C) Basophil, Abs 0.00 Manual Performed By: #### MORPH, CBC, DIFF #### [address] [address] .MORPH Collected: 11/13/2017 Status: F Source: [facility] 10:00 AM [facility] REPOSITORY TYPE CODE TESTS RESULT OUT OF REFERENCE UNITS RANGE LAB PLTE(LOINC ) Platelet Estimate Normal LAB ANIS(LOINC ) Anisocytosis Slight LAB POIK(LOINC ) Poik Slight LAB HYPC(LOINC ) Hypochrom Slight LAB POLC(LOINC ) Polychrom Slight Performed By: #### MORPH, CBC, DIFF #### [place] [id number] BMP Collected: 11/13/2017 Status: F Source: [facility] 4:35 AM [facility] REPOSITORY TYPE CODE TESTS RESULT OUT OF REFERENCE UNITS RANGE LAB GLU(LOINC) 70-110 mg/dL Glucose High Level 129 LAB NA(LOINC) 136-145 mEq/L Sodium Level 139 LAB K(LOINC) 3.5-5.0 mEq/L Potassium Level 4.1 LAB CL(LOINC) 98-110 mEq/L Chloride 103 LAB CO2(LOINC) 22-32 mEq/L CO2 24 LAB EBAL(LOINC 4.0-15.0 mEq/L ) Electrolyte Balance 12.0 LAB BUN(LOINC) 8.0-22.0 mg/dL BUN High 36.0 LAB CRE(LOINC) 0.50-1.20 mg/dL Creatinine High Lvl (s) 1.38 LAB BC(LOINC) 10.0-22.0 ratio High BUN/Creatinine 26.1 Ratio LAB CA(LOINC) 8.4-10.1 mg/dL Calcium Lvl 9.1 Performed By: #### BMP, GFR #### [address] [address] .GFR Collected: 11/13/2017 Status: F Source: [place] [employer] 4:35 AM [facility] REPOSITORY TYPE CODE TESTS RESULT OUT OF REFERENCE UNITS RANGE LAB GFRAA(LOINC ml/min/1.73 ) sqm GFR 47 [place]i Result Comment: GFR Population mean for , Non- Americans Ages 20-29 = 116 mL/min/1.73 sq.m. Ages 30-39 = 107 mL/min/1.73 sq.m. Ages 40-49 = 99 mL/min/1.73 sq.m. Ages 50-59 = 93 mL/min/1.73 sq.m. Ages 60-69 = 85 mL/min/1.73 sq.m. Ages 70+ = 75 mL/min/1.73 sq.m. Chronic Kidney Disease: Less than 60 mL/min/1.73 square meters End Stage Renal Disease: Less than 15 mL/min/1.73 square meters LAB GFRNO(LOINC) ml/min/1.73sqm GFR Non- 39 Result Comment: GFR Population mean for , Non- Americans Ages 20-29 = 116 mL/min/1.73 sq.m. Ages 30-39 = 107 mL/min/1.73 sq.m. Ages 40-49 = 99 mL/min/1.73 sq.m. Ages 50-59 = 93 mL/min/1.73 sq.m. Ages 60-69 = 85 mL/min/1.73 sq.m. Ages 70+ = 75 mL/min/1.73 sq.m. Chronic Kidney Disease: Less than 60 mL/min/1.73 square meters End Stage Renal Disease: Less than 15 mL/min/1.73 square meters Performed By: #### BMP, GFR #### [address] [address] BMP Collected: 11/12/2017 Status: F Source: [place] [employer] 3:42 AM [facility] REPOSITORY TYPE CODE TESTS RESULT OUT OF REFERENCE UNITS RANGE LAB GLU(LOINC) 70-110 mg/dL Glucose High Level 131 LAB NA(LOINC) 136-145 mEq/L Sodium Level 138 LAB K(LOINC) 3.5-5.0 mEq/L Potassium Level 4.9 LAB CL(LOINC) 98-110 mEq/L Chloride 103 LAB CO2(LOINC) 22-32 mEq/L Low CO2 21 LAB EBAL(LOINC 4.0-15.0 mEq/L ) Electrolyte Balance 14.0 LAB BUN(LOINC) 8.0-22.0 mg/dL BUN High 43.0 LAB CRE(LOINC) 0.50-1.20 mg/dL Creatinine High Lvl (s) 1.47 LAB BC(LOINC) 10.0-22.0 ratio High BUN/Creatinine 29.3 Ratio LAB CA(LOINC) 8.4-10.1 mg/dL Calcium Lvl 8.7 Performed By: #### BMP, GFR #### [place] [address] .GFR Collected: 11/12/2017 Status: F Source: [facility] 3:42 AM [facility] REPOSITORY TYPE CODE TESTS RESULT OUT OF REFERENCE UNITS RANGE LAB GFRAA(LOINC ml/min/1.73 ) sqm GFR 44 [place]i Result Comment: GFR Population mean for , Non- Americans Ages 20-29 = 116 mL/min/1.73 sq.m. Ages 30-39 = 107 mL/min/1.73 sq.m. Ages 40-49 = 99 mL/min/1.73 sq.m. Ages 50-59 = 93 mL/min/1.73 sq.m. Ages 60-69 = 85 mL/min/1.73 sq.m. Ages 70+ = 75 mL/min/1.73 sq.m. Chronic Kidney Disease: Less than 60 mL/min/1.73 square meters End Stage Renal Disease: Less than 15 mL/min/1.73 square meters LAB GFRNO(LOINC) ml/min/1.73sqm GFR Non- 36 Result Comment: GFR Population mean for , Non- Americans Ages 20-29 = 116 mL/min/1.73 sq.m. Ages 30-39 = 107 mL/min/1.73 sq.m. Ages 40-49 = 99 mL/min/1.73 sq.m. Ages 50-59 = 93 mL/min/1.73 sq.m. Ages 60-69 = 85 mL/min/1.73 sq.m. Ages 70+ = 75 mL/min/1.73 sq.m. Chronic Kidney Disease: Less than 60 mL/min/1.73 square meters End Stage Renal Disease: Less than 15 mL/min/1.73 square meters Performed By: #### BMP, GFR #### [place] [address] XR ANKLE MINIMUM 3 Observed: 11/11/2017 Status: F Source: [facility] VIEWS LEFT 8:15 PM [facility] REPOSITORY ORIGINAL XR ANKLE MINIMUM 3 VIEWS LEFT CLINICAL STATEMENT: ORIF COMPARISON: 11/11/2017 at 3:04 PM FINDINGS:Traction hardware is in place. Distal tibial and fibular fractures are once again noted. New hardware has been placed in the interim from retraction with successful reduction and talotibial art iculation disruption. Improved approximation of the fibular fracture fragments is noted. The talar dome remains intact. On AP views, approximately one bone width of lateral displacement of the distal fibular fracture fragment remains. IMPRESSION:Traction hardware placement with significant improvement in orientation of distal tibial and fibular fracture fragments Interpreted By: Estrella Garcia MD Preliminary Report By: Estrella Garcia MD Electronically Signed By: Estrella Garcia MD Dictated Date: 11/11/2017 9:16:51 PM Prelim Date: 11/11/2017 9:16:51 PM Sign Date: 11/11/2017 9:18:28 PM XR FLUORO 1-2 HRS Observed: 11/11/2017 Status: F Source: [place] [employer] TECH TIME 4:00 PM [facility] REPOSITORY ORIGINAL XR FLUORO 1-2 HRS TECH TIME CLINICAL STATEMENT: OPEN LT ANKLE FX COMPARISON: LEFT ankle radiographs, 11/11/2017 Technical Details: Tech Time - 4:00P-5:15P; C-Arm # - 7; Total Dose - 1.01 MGY; Images - 5; 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 They demonstrate open reduction and external fixation with fixation anthony traversing the calcaneus below the posterior subtalar facet. Cortical offset of the obliquely oriented distal fibular fracture is improved, and there is improved alignment of the tibiotalar articulation with near anatomic alignment.. Detail is limited. Please see the operative note for details. I have personally reviewed the images of this examination and agree with the resident's findings and interpretation Interpreted By: Darian Weeks MD Preliminary Report By: Armando Mark MD Electronically Signed By: Darian Weeks MD Dictated Date: 11/11/2017 6:30:14 PM Prelim Date: 11/11/2017 6:32:24 PM Sign Date: 11/11/2017 6:53:02 PM XR ANKLE TWO VIEWS Observed: 11/11/2017 Status: F Source: [facility] LEFT 2:37 PM [facility] REPOSITORY ORIGINAL XR ANKLE TWO VIEWS LEFT CLINICAL STATEMENT: fracture COMPARISON: 11/09/2017 FINDINGS:The current examination demonstrates continued evidence of a fracture with dislocation. The current examination demonstrates continued posterior displacement of the foot with respect to the lalo us compared to the tibia which has actually worsened. Increasing distraction of the fibular fracture fragment as well is noted. On the AP view, continued marked distraction and lateral displacement of the talus with respect to the tibia is noted IMPRESSION:Slight worsening in dislocation. Interpreted By: Estrella Garcia MD Preliminary Report By: Estrella Garcia MD Electronically Signed By: Estrella Garcia MD Dictated Date: 11/11/2017 3:05:49 PM Prelim Date: 11/11/2017 3:05:49 PM Sign Date: 11/11/2017 3:06:58 PM CBC Collected: 11/11/2017 Status: F Source: [facility] 4:15 AM [facility] RE[facility] TYPE CODE TESTS RESULT OUT OF REFERENCE UNITS RANGE LAB WBC(LOINC) 4.50-10.80 10 3/mcL WBC 10.10 LAB RBCCT(LOINC 4.10-5.30 10 6/mcL ) Low RBC 2.93 LAB HGB(LOINC) 12.0-16.0 G/dL Low Hgb 8.7 LAB HCT(LOINC) 34.0-46.0 % Low Hct 26.1 LAB MCV(LOINC) 80.0-99.0 fL MCV 89.1 LAB MCH(LOINC) 27.0-33.0 pg MCH 29.7 LAB MCHC(LOINC) 32.0-36.0 G/dL MCHC 33.3 LAB RDW(LOINC) 11.5-15.5 % High RDW 16.3 LAB PLT(LOINC) 150-450 10 3/mcL Platelet 259 LAB MPV(LOINC) 6.6-10.5 fL MPV 8.1 Performed By: #### ADENDY, BMP, ANEU, GFR, CBC #### [address] [address] .AUTO DIFF Collected: 11/11/2017 Status: F Source: [facility] 4:15 AM [facility] REPOSITORY TYPE CODE TESTS RESULT OUT OF REFERENCE UNITS RANGE LAB NARESH(LOINC) 50.0-75.0 % High Neutrophil % 81.7 LAB LYM(LOINC) 20.0-40.0 % Low Lymphocyte % 6.9 LAB MON(LOINC) 2.0-13.0 % Monocyte % 10.0 LAB EO(LOINC) 0.0-6.0 % Eosinophil % 1.1 LAB BAS(LOINC) 0.0-2.5 % Basophil % 0.3 LAB ABLYM(LOIN 0.90-4.32 10 3/mcL C) Low Lymphocyte, 0.70 Absolute LAB KADY(LOINC 0.09-1.40 10 3/mcL ) Monocyte, 1.00 Absolute LAB AEOS(LOINC 0.00-0.65 10 3/mcL ) Eosinophil, 0.10 Absolute LAB ABAS(LOINC 0.00-0.27 10 3/mcL ) Basophil, 0.00 Absolute Performed By: #### JACE, BMP, ANEU, GFR, CBC #### [place] [address] .NEUABS Collected: 11/11/2017 Status: F Source: [facility] 4:15 AM [facility] REPOSITORY TYPE CODE TESTS RESULT OUT OF REFERENCE UNITS RANGE LAB ANEU(LOINC) 2.25-8.10 10 3/mcL High Neutrophil, 8.30 Absolute Performed By: #### ADENDY, BMP, ANEU, GFR, CBC #### [place] [address] BMP Collected: 11/11/2017 Status: F Source: [facility] 4:15 AM [facility] REPOSITORY TYPE CODE TESTS RESULT OUT OF REFERENCE UNITS RANGE LAB GLU(LOINC) 70-110 mg/dL Glucose High Level 128 LAB NA(LOINC) 136-145 mEq/L Sodium Level 137 LAB K(LOINC) 3.5-5.0 mEq/L Potassium Level 4.0 LAB CL(LOINC) 98-110 mEq/L Chloride 101 LAB CO2(LOINC) 22-32 mEq/L CO2 27 LAB EBAL(LOINC 4.0-15.0 mEq/L ) Electrolyte Balance 9.0 LAB BUN(LOINC) 8.0-22.0 mg/dL BUN High 61.0 LAB CRE(LOINC) 0.50-1.20 mg/dL Creatinine High Lvl (s) 1.93 LAB BC(LOINC) 10.0-22.0 ratio High BUN/Creatinine 31.6 Ratio LAB CA(LOINC) 8.4-10.1 mg/dL Low Calcium Lvl 8.3 Performed By: #### ADIFF, BMP, ANEU, GFR, CBC #### [place] [address] .GFR Collected: 11/11/2017 Status: F Source: [facility] 4:15 AM [facility] TYPE CODE TESTS RESULT OUT OF REFERENCE UNITS RANGE LAB GFRAA(LOINC ml/min/1.73 ) sqm GFR 32 [place] Result Comment: GFR Population mean for , Non- Americans Ages 20-29 = 116 mL/min/1.73 sq.m. Ages 30-39 = 107 mL/min/1.73 sq.m. Ages 40-49 = 99 mL/min/1.73 sq.m. Ages 50-59 = 93 mL/min/1.73 sq.m. Ages 60-69 = 85 mL/min/1.73 sq.m. Ages 70+ = 75 mL/min/1.73 sq.m. Chronic Kidney Disease: Less than 60 mL/min/1.73 square meters End Stage Renal Disease: Less than 15 mL/min/1.73 square meters LAB GFRNO(LOINC) ml/min/1.73sqm GFR Non- 27 Result Comment: GFR Population mean for , Non- Americans Ages 20-29 = 116 mL/min/1.73 sq.m. Ages 30-39 = 107 mL/min/1.73 sq.m. Ages 40-49 = 99 mL/min/1.73 sq.m. Ages 50-59 = 93 mL/min/1.73 sq.m. Ages 60-69 = 85 mL/min/1.73 sq.m. Ages 70+ = 75 mL/min/1.73 sq.m. Chronic Kidney Disease: Less than 60 mL/min/1.73 square meters End Stage Renal Disease: Less than 15 mL/min/1.73 square meters Performed By: #### ADIFF, BMP, ANEU, GFR, CBC #### [address] [address] HH Collected: 11/10/2017 Status: F Source: [facility] 9:19 PM [facility] REPOSITORY TYPE CODE TESTS RESULT OUT OF RANGE REFERENCE UNITS LAB HGB(LOINC) 12.0-16.0 G/dL Low Hgb 8.3 LAB HCT(LOINC) 34.0-46.0 % Low Hct 25.6 Performed By: #### HH #### [place] [address] OCC (LAB) Collected: 11/10/2017 Status: F Source: [facility] 8:00 PM [facility] REPOSITORY TYPE CODE TESTS RESULT OUT OF RANGE REFERENCE UNITS LAB OCC(LOINC) Negative Unknown Occult Positive Blood Fecal Result Comment: This test utilizes the guaiac fecal blood method, which detects peroxidase activity (heme) indicating bleeding from stomach, small intestine, or large intestine. If bleeding from either upper or lower gastrointestinal tract is a clinical consideration, the [facility] recommends the use of both the guaiac fecal blood test and the Immunochemical fecal blood test. Performed By: #### OCC #### [place] [address] MG Collected: 11/10/2017 Status: F Source: [facility] 9:08 AM [facility] REPOSITORY TYPE CODE TESTS RESULT OUT OF REFERENCE UNITS RANGE LAB MG(LOINC) 1.6-2.4 mg/dL Magnesium Lvl 2.0 Performed By: #### MG, ABORH, ANTIS #### [place] [address] TABO Collected: 11/10/2017 Status: F Source: [facility] 9:08 AM [facility] REPOSITORY TYPE CODE TESTS RESULT OUT OF RANGE REFERENCE UNITS LAB ABORH(LOINC ) Unknown ABO/Rh O NEG Interp Performed By: #### MG, ABORJavid, ANTIS #### [address] [address] TABS Collected: 11/10/2017 Status: F Source: [facility] 9:08 AM [facility] REPOSITORY TYPE CODE TESTS RESULT OUT OF REFERENCE UNITS RANGE LAB ANST(LOINC ) Antibody Negative ABSC Screen Tango Performed By: #### MG, ABORJavid, ANTIS #### [place] [address] RBC (PRODUCT) Collected: 11/10/2017 Status: F Source: [facility] 8:49 AM [facility] REPOSITORY TYPE CODE TESTS RESULT OUT OF REFERENCE UNITS RANGE LAB RBCPR(LOINC ) RBC Product RBC Ready Ready for Pickup Performed By: #### RBCP #### [place] [address] CBC Collected: 11/10/2017 Status: F Source: [facility] 3:41 AM [facility] REPOSITORY TYPE CODE TESTS RESULT OUT OF REFERENCE UNITS RANGE LAB WBC(LOINC) 4.50-10.80 10 3/mcL High WBC 11.10 LAB RBCCT(LOINC 4.10-5.30 10 6/mcL ) Low RBC 2.55 LAB HGB(LOINC) 12.0-16.0 G/dL Low Hgb 7.4 LAB HCT(LOINC) 34.0-46.0 % Low Hct 22.9 LAB MCV(LOINC) 80.0-99.0 fL MCV 89.7 LAB MCH(LOINC) 27.0-33.0 pg MCH 29.2 LAB MCHC(LOINC) 32.0-36.0 G/dL MCHC 32.5 LAB RDW(LOINC) 11.5-15.5 % High RDW 15.8 LAB PLT(LOINC) 150-450 10 3/mcL Platelet 231 LAB MPV(LOINC) 6.6-10.5 fL MPV 8.2 Performed By: #### GFR, ANEU, ADIFF, CBC, BMP #### [address] [address] .AUTO DIFF Collected: 11/10/2017 Status: F Source: [facility] 3:41 AM [facility] REPOSITORY TYPE CODE TESTS RESULT OUT OF REFERENCE UNITS RANGE LAB NARESH(LOINC) 50.0-75.0 % High Neutrophil % 81.4 LAB LYM(LOINC) 20.0-40.0 % Low Lymphocyte % 7.8 LAB MON(LOINC) 2.0-13.0 % Monocyte % 9.0 LAB EO(LOINC) 0.0-6.0 % Eosinophil % 1.5 LAB BAS(LOINC) 0.0-2.5 % Basophil % 0.3 LAB ABLYM(LOIN 0.90-4.32 10 3/mcL C) Lymphocyte, 0.90 Absolute LAB KADY(LOINC 0.09-1.40 10 3/mcL ) Monocyte, 1.00 Absolute LAB AEOS(LOINC 0.00-0.65 10 3/mcL ) Eosinophil, 0.20 Absolute LAB ABAS(LOINC 0.00-0.27 10 3/mcL ) Basophil, 0.00 Absolute Performed By: #### GFR, ANEU, ADIFF, CBC, BMP #### [place] [address] .NEUABS Collected: 11/10/2017 Status: F Source: [facility] 3:41 AM [facility] REPOSITORY TYPE CODE TESTS RESULT OUT OF REFERENCE UNITS RANGE LAB ANEU(LOINC) 2.25-8.10 10 3/mcL High Neutrophil, 9.00 Absolute Performed By: #### GFR, ANEU, ADIFF, CBC, BMP #### [place] [address] BMP Collected: 11/10/2017 Status: F Source: [facility] 3:41 [facility] REPOSITORY TYPE CODE TESTS RESULT OUT OF REFERENCE UNITS RANGE LAB GLU(LOINC) 70-110 mg/dL Glucose High Level 124 LAB NA(LOINC) 136-145 mEq/L Low Sodium Level 134 LAB K(LOINC) 3.5-5.0 mEq/L Potassium Level 3.9 LAB CL(LOINC) 98-110 mEq/L Chloride 98 LAB CO2(LOINC) 22-32 mEq/L CO2 26 LAB EBAL(LOINC 4.0-15.0 mEq/L ) Electrolyte Balance 10.0 LAB BUN(LOINC) 8.0-22.0 mg/dL BUN High 73.0 LAB CRE(LOINC) 0.50-1.20 mg/dL Creatinine High Lvl (s) 2.38 LAB BC(LOINC) 10.0-22.0 ratio High BUN/Creatinine 30.7 Ratio LAB CA(LOINC) 8.4-10.1 mg/dL Low Calcium Lvl 7.7 Performed By: #### GFR, ANEU, ADIFF, CBC, BMP #### [address] [address] .GFR Collected: 11/10/2017 Status: F Source: [facility] 3:41 AM [facility] REPOSIT[facility] TYPE CODE TESTS RESULT OUT OF REFERENCE UNITS RANGE LAB GFRAA(LOINC ml/min/1.73 ) sqm GFR 25 [place] Result Comment: GFR Population mean for , Non- Americans Ages 20-29 = 116 mL/min/1.73 sq.m. Ages 30-39 = 107 mL/min/1.73 sq.m. Ages 40-49 = 99 mL/min/1.73 sq.m. Ages 50-59 = 93 mL/min/1.73 sq.m. Ages 60-69 = 85 mL/min/1.73 sq.m. Ages 70+ = 75 mL/min/1.73 sq.m. Chronic Kidney Disease: Less than 60 mL/min/1.73 square meters End Stage Renal Disease: Less than 15 mL/min/1.73 square meters LAB GFRNO(LOINC) ml/min/1.73sqm GFR Non- 21 Result Comment: GFR Population mean for , Non- Americans Ages 20-29 = 116 mL/min/1.73 sq.m. Ages 30-39 = 107 mL/min/1.73 sq.m. Ages 40-49 = 99 mL/min/1.73 sq.m. Ages 50-59 = 93 mL/min/1.73 sq.m. Ages 60-69 = 85 mL/min/1.73 sq.m. Ages 70+ = 75 mL/min/1.73 sq.m. Chronic Kidney Disease: Less than 60 mL/min/1.73 square meters End Stage Renal Disease: Less than 15 mL/min/1.73 square meters Performed By: #### GFR, ANEU, ADIFF, CBC, BMP #### [address] [address] XR ANKLE MINIMUM 3 Observed: 11/09/2017 Status: F Source: [employer] VIEWS LEFT 1:00 PM [facility] REPOSITORY ORIGINAL XR ANKLE MINIMUM 3 VIEWS LEFT CLINICAL INDICATION: Fracture COMPARISON: CT 11/05/2017 FINDINGS: There is redemonstration of fracture dislocation of the ankle. There is posterior and lateral dislocation of the talus and foot with respect to the distal tibia. This is a change from the prio r study when the talus was dislocated anterior and lateral. There is redemonstration of a comminuted fracture of the distal fibula with about 2.5 cm lateral displacement of the distal fragment along wit h overriding of the fragments by about 2.5 cm. There is a fracture fragment from the medial malleolus adjacent to the talus as seen previously in relatively normal anatomic alignment with relation to th e talus but markedly displaced from the distal tibia. An external fixator has been applied. IMPRESSION: Displaced fracture dislocation of the ankle as described above. The talus and foot, which were previously displaced anteriorly with respect to the distal tibia, are now dislocated and displa milagro posteriorly and overrides the distal tibia. Interpreted By: Darian Weeks MD Preliminary Report By: Darian Weeks MD Electronically Signed By: Darian Weeks MD Dictated Date: 11/09/2017 4:20:15 PM Prelim Date: 11/09/2017 4:20:15 PM Sign Date: 11/09/2017 4:27:15 PM BMP Collected: 11/09/2017 Status: F Source: [facility] [employer] 3:44 AM [facility] REPOSITORY TYPE CODE TESTS RESULT OUT OF REFERENCE UNITS RANGE LAB GLU(LOINC) 70-110 mg/dL Glucose High Level 116 LAB NA(LOINC) 136-145 mEq/L Low Sodium Level 133 LAB K(LOINC) 3.5-5.0 mEq/L Potassium Level 3.5 LAB CL(LOINC) 98-110 mEq/L Low Chloride 95 LAB CO2(LOINC) 22-32 mEq/L CO2 28 LAB EBAL(LOINC 4.0-15.0 mEq/L ) Electrolyte Balance 10.0 LAB BUN(LOINC) 8.0-22.0 mg/dL BUN High 80.0 LAB CRE(LOINC) 0.50-1.20 mg/dL Creatinine High Lvl (s) 3.04 LAB BC(LOINC) 10.0-22.0 ratio High BUN/Creatinine 26.3 Ratio LAB CA(LOINC) 8.4-10.1 mg/dL Low Calcium Lvl 7.8 Performed By: #### GFR, BMP #### [address] [address] .GFR Collected: 11/09/2017 Status: F Source: [facility] 3:44 AM [facility] REPOSITORY TYPE CODE TESTS RESULT OUT OF REFERENCE UNITS RANGE LAB GFRAA(LOINC ml/min/1.73 ) sqm GFR 19 [place] Result Comment: GFR Population mean for , Non- Americans Ages 20-29 = 116 mL/min/1.73 sq.m. Ages 30-39 = 107 mL/min/1.73 sq.m. Ages 40-49 = 99 mL/min/1.73 sq.m. Ages 50-59 = 93 mL/min/1.73 sq.m. Ages 60-69 = 85 mL/min/1.73 sq.m. Ages 70+ = 75 mL/min/1.73 sq.m. Chronic Kidney Disease: Less than 60 mL/min/1.73 square meters End Stage Renal Disease: Less than 15 mL/min/1.73 square meters LAB GFRNO(LOINC) ml/min/1.73sqm GFR Non- 16 Result Comment: GFR Population mean for , Non- Americans Ages 20-29 = 116 mL/min/1.73 sq.m. Ages 30-39 = 107 mL/min/1.73 sq.m. Ages 40-49 = 99 mL/min/1.73 sq.m. Ages 50-59 = 93 mL/min/1.73 sq.m. Ages 60-69 = 85 mL/min/1.73 sq.m. Ages 70+ = 75 mL/min/1.73 sq.m. Chronic Kidney Disease: Less than 60 mL/min/1.73 square meters End Stage Renal Disease: Less than 15 mL/min/1.73 square meters Performed By: #### GFR, BMP #### [address] [address] .GFR Collected: 11/08/2017 Status: F Source: [facility] 3:51 AM [facility] REPOSITORY TYPE CODE TESTS RESULT OUT OF REFERENCE UNITS RANGE LAB GFRAA(LOINC ml/min/1.73 ) sqm GFR 23 [place] Result Comment: GFR Population mean for , Non- Americans Ages 20-29 = 116 mL/min/1.73 sq.m. Ages 30-39 = 107 mL/min/1.73 sq.m. Ages 40-49 = 99 mL/min/1.73 sq.m. Ages 50-59 = 93 mL/min/1.73 sq.m. Ages 60-69 = 85 mL/min/1.73 sq.m. Ages 70+ = 75 mL/min/1.73 sq.m. Chronic Kidney Disease: Less than 60 mL/min/1.73 square meters End Stage Renal Disease: Less than 15 mL/min/1.73 square meters LAB GFRNO(LOINC) ml/min/1.73sqm GFR Non- 19 Result Comment: GFR Population mean for , Non- Americans Ages 20-29 = 116 mL/min/1.73 sq.m. Ages 30-39 = 107 mL/min/1.73 sq.m. Ages 40-49 = 99 mL/min/1.73 sq.m. Ages 50-59 = 93 mL/min/1.73 sq.m. Ages 60-69 = 85 mL/min/1.73 sq.m. Ages 70+ = 75 mL/min/1.73 sq.m. Chronic Kidney Disease: Less than 60 mL/min/1.73 square meters End Stage Renal Disease: Less than 15 mL/min/1.73 square meters Performed By: #### CBC, GFR, ANEU, ADIFF, BMP #### [place] [address] CBC Collected: 11/08/2017 Status: F Source: [facility] 3:51 AM [facility] REPOSIT[facility] TYPE CODE TESTS RESULT OUT OF REFERENCE UNITS RANGE LAB WBC(LOINC) 4.50-10.80 10 3/mcL WBC 10.30 LAB RBCCT(LOINC 4.10-5.30 10 6/mcL ) Low RBC 2.80 LAB HGB(LOINC) 12.0-16.0 G/dL Low Hgb 8.2 LAB HCT(LOINC) 34.0-46.0 % Low Hct 25.0 LAB MCV(LOINC) 80.0-99.0 fL MCV 89.4 LAB MCH(LOINC) 27.0-33.0 pg MCH 29.3 LAB MCHC(LOINC) 32.0-36.0 G/dL MCHC 32.8 LAB RDW(LOINC) 11.5-15.5 % High RDW 16.2 LAB PLT(LOINC) 150-450 10 3/mcL Platelet 173 LAB MPV(LOINC) 6.6-10.5 fL MPV 8.2 Performed By: #### CBC, GFR, ANEU, ADIFF, BMP #### [address] [address] .AUTO DIFF Collected: 11/08/2017 Status: F Source: [facility] 3:51 AM [facility] REPOSITORY TYPE CODE TESTS RESULT OUT OF REFERENCE UNITS RANGE LAB NARESH(LOINC) 50.0-75.0 % High Neutrophil % 78.2 LAB LYM(LOINC) 20.0-40.0 % Low Lymphocyte % 12.3 LAB MON(LOINC) 2.0-13.0 % Monocyte % 8.3 LAB EO(LOINC) 0.0-6.0 % Eosinophil % 0.9 LAB BAS(LOINC) 0.0-2.5 % Basophil % 0.3 LAB ABLYM(LOIN 0.90-4.32 10 3/mcL C) Lymphocyte, 1.30 Absolute LAB KADY(LOINC 0.09-1.40 10 3/mcL ) Monocyte, 0.90 Absolute LAB AEOS(LOINC 0.00-0.65 10 3/mcL ) Eosinophil, 0.10 Absolute LAB ABAS(LOINC 0.00-0.27 10 3/mcL ) Basophil, 0.00 Absolute Performed By: #### CBC, GFR, ANEU, ADIFF, BMP #### [address] [address] .NEUABS Collected: 11/08/2017 Status: F Source: [facility] 3:51 AM [facility] REPOSITORY TYPE CODE TESTS RESULT OUT OF REFERENCE UNITS RANGE LAB ANEU(LOINC) 2.25-8.10 10 3/mcL Neutrophil, 8.10 Absolute Performed By: #### CBC, GFR, ANEU, ADIFF, BMP #### [address] [address] BMP Collected: 11/08/2017 Status: F Source: [facility] 3:51 AM [facility] REPOSITORY TYPE CODE TESTS RESULT OUT OF REFERENCE UNITS RANGE LAB GLU(LOINC) 70-110 mg/dL Glucose High Level 137 LAB NA(LOINC) 136-145 mEq/L Low Sodium Level 135 LAB K(LOINC) 3.5-5.0 mEq/L Potassium Level 3.7 LAB CL(LOINC) 98-110 mEq/L Chloride 98 LAB CO2(LOINC) 22-32 mEq/L CO2 27 LAB EBAL(LOINC 4.0-15.0 mEq/L ) Electrolyte Balance 10.0 LAB BUN(LOINC) 8.0-22.0 mg/dL BUN High 70.0 LAB CRE(LOINC) 0.50-1.20 mg/dL Creatinine High Lvl (s) 2.58 LAB BC(LOINC) 10.0-22.0 ratio High BUN/Creatinine 27.1 Ratio LAB CA(LOINC) 8.4-10.1 mg/dL Low Calcium Lvl 7.9 Performed By: #### CBC, GFR, ANEU, ADIFF, BMP #### [place] [address] EOS Collected: 11/07/2017 Status: F Source: [facility] 9:45 PM [facility] REPOSITORY TYPE CODE TESTS RESULT OUT OF REFERENCE UNITS RANGE LAB EOSRC(LOIN C) Eosinophil Spec Urine Type LAB EOSMR(LOIN C) Eos Smear 0 Result Comment: The units for an eosinophil smear depend upon specimen type: Stool, sputum, nasal specimens: number of cells/hp field Urine, bronchial lavage: number of cells/100 cells (%) Performed By: #### EOS #### [place] [address] LAC Collected: 11/07/2017 Status: F Source: [facility] 4:01 AM [facility] REPOSITORY TYPE CODE TESTS RESULT OUT OF REFERENCE UNITS RANGE LAB LAC(LOINC) 0.2-2.0 mmol/L Lactic Acid 1.6 Lvl Performed By: #### LAC #### [place] [address] CBC Collected: 11/07/2017 Status: F Source: [facility] 4:01 AM [facility] REPOSITORY TYPE CODE TESTS RESULT OUT OF REFERENCE UNITS RANGE LAB WBC(LOINC) 4.50-10.80 10 3/mcL High WBC 12.60 LAB RBCCT(LOINC 4.10-5.30 10 6/mcL ) Low RBC 2.97 LAB HGB(LOINC) 12.0-16.0 G/dL Low Hgb 8.6 LAB HCT(LOINC) 34.0-46.0 % Low Hct 27.3 LAB MCV(LOINC) 80.0-99.0 fL MCV 92.1 LAB MCH(LOINC) 27.0-33.0 pg MCH 28.9 LAB MCHC(LOINC) 32.0-36.0 G/dL Low MCHC 31.4 LAB RDW(LOINC) 11.5-15.5 % High RDW 16.7 LAB PLT(LOINC) 150-450 10 3/mcL Platelet 151 LAB MPV(LOINC) 6.6-10.5 fL MPV 7.8 Performed By: #### BMP, CBC, GFR, ANEU, ADIFF #### [address] [address] .AUTO DIFF Collected: 11/07/2017 Status: F Source: [facility] 4:01 AM [facility] REPOSITORY TYPE CODE TESTS RESULT OUT OF REFERENCE UNITS RANGE LAB NARESH(LOINC) 50.0-75.0 % High Neutrophil % 81.6 LAB LYM(LOINC) 20.0-40.0 % Low Lymphocyte % 11.0 LAB MON(LOINC) 2.0-13.0 % Monocyte % 6.9 LAB EO(LOINC) 0.0-6.0 % Eosinophil % 0.2 LAB BAS(LOINC) 0.0-2.5 % Basophil % 0.3 LAB ABLYM(LOIN 0.90-4.32 10 3/mcL C) Lymphocyte, 1.40 Absolute LAB KADY(LOINC 0.09-1.40 10 3/mcL ) Monocyte, 0.90 Absolute LAB AEOS(LOINC 0.00-0.65 10 3/mcL ) Eosinophil, 0.00 Absolute LAB ABAS(LOINC 0.00-0.27 10 3/mcL ) Basophil, 0.00 Absolute Performed By: #### BMP, CBC, GFR, ANEU, ADIFF #### [address] [address] .NEUABS Collected: 11/07/2017 Status: F Source: [facility] 4:01 AM [facility] REPOSITORY TYPE CODE TESTS RESULT OUT OF REFERENCE UNITS RANGE LAB ANEU(LOINC) 2.25-8.10 10 3/mcL High Neutrophil, 10.30 Absolute Performed By: #### BMP, CBC, GFR, ANEU, ADIFF #### [address] [address] .GFR Collected: 11/07/2017 Status: F Source: [facility] 4:01 AM [facility] REPOSITORY TYPE CODE TESTS RESULT OUT OF REFERENCE UNITS RANGE LAB GFRAA(LOINC ml/min/1.73 ) sqm GFR 21 [place] Result Comment: GFR Population mean for , Non- Americans Ages 20-29 = 116 mL/min/1.73 sq.m. Ages 30-39 = 107 mL/min/1.73 sq.m. Ages 40-49 = 99 mL/min/1.73 sq.m. Ages 50-59 = 93 mL/min/1.73 sq.m. Ages 60-69 = 85 mL/min/1.73 sq.m. Ages 70+ = 75 mL/min/1.73 sq.m. Chronic Kidney Disease: Less than 60 mL/min/1.73 square meters End Stage Renal Disease: Less than 15 mL/min/1.73 square meters LAB GFRNO(LOINC) ml/min/1.73sqm GFR Non- 17 Result Comment: GFR Population mean for , Non- Americans Ages 20-29 = 116 mL/min/1.73 sq.m. Ages 30-39 = 107 mL/min/1.73 sq.m. Ages 40-49 = 99 mL/min/1.73 sq.m. Ages 50-59 = 93 mL/min/1.73 sq.m. Ages 60-69 = 85 mL/min/1.73 sq.m. Ages 70+ = 75 mL/min/1.73 sq.m. Chronic Kidney Disease: Less than 60 mL/min/1.73 square meters End Stage Renal Disease: Less than 15 mL/min/1.73 square meters Performed By: #### BMP, CBC, GFR, ANEU, ADIFF #### [address] [address] BMP Collected: 11/07/2017 Status: F Source: [facility] 4:01 AM [facility] REPOSITORY TYPE CODE TESTS RESULT OUT OF REFERENCE UNITS RANGE LAB GLU(LOINC) 70-110 mg/dL Glucose High Level 128 LAB NA(LOINC) 136-145 mEq/L Low Sodium Level 135 LAB K(LOINC) 3.5-5.0 mEq/L Potassium Level 4.3 LAB CL(LOINC) 98-110 mEq/L Chloride 104 LAB CO2(LOINC) 22-32 mEq/L Low CO2 16 LAB EBAL(LOINC 4.0-15.0 mEq/L ) Electrolyte Balance 15.0 LAB BUN(LOINC) 8.0-22.0 mg/dL BUN High 72.0 LAB CRE(LOINC) 0.50-1.20 mg/dL Creatinine High Lvl (s) 2.78 LAB BC(LOINC) 10.0-22.0 ratio High BUN/Creatinine 25.9 Ratio LAB CA(LOINC) 8.4-10.1 mg/dL Low Calcium Lvl 7.7 Performed By: #### BMP, CBC, GFR, ANEU, ADIFF #### [place] [address] UA Collected: 11/07/2017 Status: F Source: [facility] 12:57 AM [facility] REPOSITORY TYPE CODE TESTS RESULT OUT OF RANGE REFERENCE UNITS LAB SPCUA([place]) UA Specimen Type Catheter LAB CLRUA([place]) UA Color Yellow LAB APPUA([place] Clear [place]) UA Appear Unknown Cloudy LAB SGUA(LOIN 1.006-1.029 C) UA Spec Grav 1.015 LAB GLUA(LOIN Negative mg/dL C) UA Glucose Negative LAB BILUA([place] Neg-Trace [place]) UA Bili Negative LAB KETUA([place] Neg-Trace mg/dL [place]) UA Ketones Negative LAB BLDUA([place] Neg-Trace [place]) UA Blood Negative LAB PHUA(LOIN 5.0 - 8.0 C) UA pH 5.0 LAB PROUA([place] Negative mg/dL [place]) UA Protein 30 LAB UROUA([place] 0.2-1.0 E.U./dL [place]) UA Urobilinogen 0.2 LAB NITUA([place] Negative [place]) UA Nitrite Negative LAB LEUUA([place] Negative [place]) UA Leuk Est Trace Performed By: #### UAMIC, UA #### [place] [address] UAMIC Collected: 11/07/2017 Status: F Source: [facility] 12:57 AM [facility] REPOSITORY TYPE CODE TESTS RESULT OUT OF REFERENCE UNITS RANGE LAB RBCUA(LOIN 0-2 /hpf C) UA RBC Negative LAB WBCUA(LOIN 0-5 /hpf C) UA WBC Negative LAB EPIUA(LOIN 0-20 /hpf C) UA Squam Epithelial Negative LAB AMOUA(LOIN /hpf C) UA 2+ Amorphus Performed By: #### UAMIC, UA #### [place] [id number] CRUR Collected: 11/07/2017 Status: F Source: [facility] 12:57 AM [facility] REPOSITORY TYPE CODE TESTS RESULT OUT OF REFERENCE UNITS RANGE LAB CRU(LOINC) mg/dL U Creatinine 75.1 Performed By: #### IVONNE HOOK #### [place] [id number] NAUR Collected: 11/07/2017 Status: F Source: [facility] 12:57 AM [facility] REPOSITORY TYPE CODE TESTS RESULT OUT OF REFERENCE UNITS RANGE LAB KOLTON(LOINC) mEq/L U Sodium 45.0 Performed By: #### IVONNE HOOK #### [place] [id number] HH Collected: 11/07/2017 Status: F Source: [facility] 12:22 AM [facility] REPOSITORY TYPE CODE TESTS RESULT OUT OF RANGE REFERENCE UNITS LAB HGB(LOINC) 12.0-16.0 G/dL Low Hgb 8.8 LAB HCT(LOINC) 34.0-46.0 % Low Hct 27.3 Performed By: #### HH #### [place] [id number] HH Collected: 11/06/2017 Status: F Source: [facility] 8:12 PM [facility] REPOSITORY Order Comment: Call if below 8 or active GI bleeding TYPE CODE TESTS RESULT OUT OF RANGE REFERENCE UNITS LAB HGB(LOINC) 12.0-16.0 G/dL Low Hgb 7.8 LAB HCT(LOINC) 34.0-46.0 % Low Hct 24.4 Performed By: #### ALBINO, GFR, #### [address] [id number] .GFR Collected: 11/06/2017 Status: F Source: [facility] 8:12 PM [facility] REPOSITORY TYPE CODE TESTS RESULT OUT OF REFERENCE UNITS RANGE LAB GFRAA(LOINC ml/min/1.73 ) sqm GFR 24 [place] Result Comment: GFR Population mean for , Non- Americans Ages 20-29 = 116 mL/min/1.73 sq.m. Ages 30-39 = 107 mL/min/1.73 sq.m. Ages 40-49 = 99 mL/min/1.73 sq.m. Ages 50-59 = 93 mL/min/1.73 sq.m. Ages 60-69 = 85 mL/min/1.73 sq.m. Ages 70+ = 75 mL/min/1.73 sq.m. Chronic Kidney Disease: Less than 60 mL/min/1.73 square meters End Stage Renal Disease: Less than 15 mL/min/1.73 square meters LAB GFRNO(LOINC) ml/min/1.73sqm GFR Non- 20 Result Comment: GFR Population mean for , Non- Americans Ages 20-29 = 116 mL/min/1.73 sq.m. Ages 30-39 = 107 mL/min/1.73 sq.m. Ages 40-49 = 99 mL/min/1.73 sq.m. Ages 50-59 = 93 mL/min/1.73 sq.m. Ages 60-69 = 85 mL/min/1.73 sq.m. Ages 70+ = 75 mL/min/1.73 sq.m. Chronic Kidney Disease: Less than 60 mL/min/1.73 square meters End Stage Renal Disease: Less than 15 mL/min/1.73 square meters Performed By: #### ALBINO, GFR, #### [address] [address] BMP Collected: 11/06/2017 Status: F Source: [facility] 8:12 PM [facility] Order Comment: call if potassium over 5.8 TYPE CODE TESTS RESULT OUT OF RANGE REFERENCE UNITS LAB GLU(LOINC) 70-110 mg/dL Glucose Abnormal Level 477 Alert LAB NA(LOINC) 136-145 mEq/L Sodium Level 137 LAB K(LOINC) 3.5-5.0 mEq/L Potassium Level 3.6 LAB CL(LOINC) 98-110 mEq/L Low Chloride 95 LAB CO2(LOINC) 22-32 mEq/L CO2 29 LAB EBAL(LOINC 4.0-15.0 mEq/L ) Electrolyte Balance 13.0 LAB BUN(LOINC) 8.0-22.0 mg/dL High BUN 60.0 LAB CRE(LOINC) 0.50-1.20 mg/dL High Creatinine Lvl (s) 2.50 LAB BC(LOINC) 10.0-22.0 ratio High BUN/Creatinine 24.0 Ratio LAB CA(LOINC) 8.4-10.1 mg/dL Low Calcium Lvl 7.0 Performed By: #### BMP, GFR, #### [place] [address] .GFR Collected: 11/06/2017 Status: F Source: [facility] 10:05 AM [facility]OUNDATION REPOSITORY TYPE CODE TESTS RESULT OUT OF REFERENCE UNITS RANGE LAB GFRAA(LOINC ml/min/1.73 ) sqm GFR 19 [place] Result Comment: GFR Population mean for , Non- Americans Ages 20-29 = 116 mL/min/1.73 sq.m. Ages 30-39 = 107 mL/min/1.73 sq.m. Ages 40-49 = 99 mL/min/1.73 sq.m. Ages 50-59 = 93 mL/min/1.73 sq.m. Ages 60-69 = 85 mL/min/1.73 sq.m. Ages 70+ = 75 mL/min/1.73 sq.m. Chronic Kidney Disease: Less than 60 mL/min/1.73 square meters End Stage Renal Disease: Less than 15 mL/min/1.73 square meters LAB GFRNO(LOINC) ml/min/1.73sqm GFR Non- 16 Result Comment: GFR Population mean for , Non- Americans Ages 20-29 = 116 mL/min/1.73 sq.m. Ages 30-39 = 107 mL/min/1.73 sq.m. Ages 40-49 = 99 mL/min/1.73 sq.m. Ages 50-59 = 93 mL/min/1.73 sq.m. Ages 60-69 = 85 mL/min/1.73 sq.m. Ages 70+ = 75 mL/min/1.73 sq.m. Chronic Kidney Disease: Less than 60 mL/min/1.73 square meters End Stage Renal Disease: Less than 15 mL/min/1.73 square meters Performed By: #### GFR, BMP #### [address] [address] BMP Collected: 11/06/2017 Status: F Source: [facility] 10:05 AM [facility] REPOSITORY TYPE CODE TESTS RESULT OUT OF RANGE REFERENCE UNITS LAB GLU(LOINC) 70-110 mg/dL High Glucose Level 156 LAB NA(LOINC) 136-145 mEq/L Sodium Level 139 LAB K(LOINC) 3.5-5.0 mEq/L Abnormal Alert Potassium Level 6.2 Result Comment: Specimen slightly hemolyzed LAB CL(LOINC) 98-110 mEq/L High Chloride 115 LAB CO2(LOINC) 22-32 mEq/L Abnormal CO2 Alert 9 LAB EBAL(LOINC) 4.0-15.0 mEq/L Electrolyte Balance 15.0 LAB BUN(LOINC) 8.0-22.0 mg/dL High BUN 77.0 LAB CRE(LOINC) 0.50-1.20 mg/dL High Creatinine Lvl (s) 3.07 LAB BC(LOINC) 10.0-22.0 ratio High BUN/Creatinine Ratio 25.1 LAB CA(LOINC) 8.4-10.1 mg/dL Low Calcium Lvl 8.0 Performed By: #### GFR, BMP #### [address] [address] CBC Collected: 11/06/2017 Status: F Source: [facility] [employer] 6:27 AM [facility] REPOSITORY TYPE CODE TESTS RESULT OUT OF REFERENCE UNITS RANGE LAB WBC(LOINC) 4.50-10.80 10 3/mcL High WBC 15.40 LAB RBCCT(LOINC 4.10-5.30 10 6/mcL ) Low RBC 3.32 LAB HGB(LOINC) 12.0-16.0 G/dL Low Hgb 9.7 LAB HCT(LOINC) 34.0-46.0 % Low Hct 30.1 LAB MCV(LOINC) 80.0-99.0 fL MCV 90.8 LAB MCH(LOINC) 27.0-33.0 pg MCH 29.2 LAB MCHC(LOINC) 32.0-36.0 G/dL MCHC 32.1 LAB RDW(LOINC) 11.5-15.5 % High RDW 16.9 LAB PLT(LOINC) 150-450 10 3/mcL Platelet 199 LAB MPV(LOINC) 6.6-10.5 fL MPV 8.2 Performed By: #### ANEU, ADIFF, CBC #### [place] [address] .AUTO DIFF Collected: 11/06/2017 Status: F Source: [facility] 6:27 AM [facility] REPOSITORY TYPE CODE TESTS RESULT OUT OF REFERENCE UNITS RANGE LAB NARESH(LOINC) 50.0-75.0 % High Neutrophil % 86.4 LAB LYM(LOINC) 20.0-40.0 % Low Lymphocyte % 7.2 LAB MON(LOINC) 2.0-13.0 % Monocyte % 6.3 LAB EO(LOINC) 0.0-6.0 % Eosinophil % 0.0 LAB BAS(LOINC) 0.0-2.5 % Basophil % 0.1 LAB ABLYM(LOIN 0.90-4.32 10 3/mcL C) Lymphocyte, 1.10 Absolute LAB KADY(LOINC 0.09-1.40 10 3/mcL ) Monocyte, 1.00 Absolute LAB AEOS(LOINC 0.00-0.65 10 3/mcL ) Eosinophil, 0.00 Absolute LAB ABAS(LOINC 0.00-0.27 10 3/mcL ) Basophil, 0.00 Absolute Performed By: #### ANEU, ADIFF, CBC #### [place] [address] .NEUABS Collected: 11/06/2017 Status: F Source: [facility] 6:27 AM [facility] REPOSITORY TYPE CODE TESTS RESULT OUT OF REFERENCE UNITS RANGE LAB ANEU(LOINC) 2.25-8.10 10 3/mcL High Neutrophil, 13.30 Absolute Performed By: #### ANEU, ADIFF, CBC #### [place] [address] CT HIP W/O CONTRAST Observed: 11/05/2017 Status: F Source: [facility] LEFT 8:48 PM [facility] REPOSITORY ORIGINAL CT HIP W/O CONTRAST LEFT This exam was performed according to our departmental dose optimization program, and includes the following measures where applicable: automated exposure control, adjustment of the mAs and/or kVp accord ing to patient size and/or exam, and an iterative reconstruction algorithm. CLINICAL STATEMENT: rule out fracture, pain. LEFT hip pain after fall. COMPARISON: Hip radiograph, 11/05/2017, CT ankle, 11/05/2014 FINDINGS: There is no acute fracture or dislocation. The femoral acetabular articulation is normally approximated. Previously questioned irregularity at the medial subcapital femoral neck was likely artifactual. There is mild generalized osseous demineralization. Enthesopathy is seen at the greater trochanter. Imaged portions of the LEFT hemipelvis show no acute abnormality. Superior and inferior pubic rami are intact. There is mild degenerative arthropathy at the symphysis pubis. No suspicious bone lesion. There is mild fatty replacement of the gluteus leroy. Remaining visualized muscles of the LEFT lower extremity are normal in bulk. Limited assessment of the intrapelvic contents reveals diverticulosis. IMPRESSION: No acute fracture or dislocation. Mild degenerative changes of the LEFT hip. I have personally reviewed the images of this examination and agree with the resident's findings and interpretation. Interpreted By: Isabella Feliciano MD Preliminary Report By: Armando Mark MD Electronically Signed By: Isabella Feliciano MD Dictated Date: 11/05/2017 9:31:32 PM Prelim Date: 11/05/2017 9:34:46 PM Sign Date: 11/05/2017 11:03:02 PM XR HIP MINIMUM 2 Observed: 11/05/2017 Status: F Source: [employer] [facility]IE[facility] LEFT 4:27 PM [facility] REPOSITORY ORIGINAL XR HIP MINIMUM 2 VIEWS LEFT CLINICAL STATEMENT: pain. Trauma patient. COMPARISON: Pelvic radiograph, 11/05/2017 FINDINGS: AP and crosstable lateral views of the LEFT hip were acquired. The study is of suboptimal technical quality given patient habitus, and bony detail is poorly assessed. There may be slight corti castillo irregularity at the medial subcapital femoral neck. The imaged pubic rami and LEFT hemipelvis appear intact. IMPRESSION: There remains concern for subcapital femoral neck fracture. This should be further assessed with dedicated CT of the hip given limitations imposed by patient habitus. I have personally reviewed the images of this examination and agree with the resident's findings and interpretation. Interpreted By: Isabella Feliciano MD Preliminary Report By: Armando Mark MD Electronically Signed By: Isabella Feliciano MD Dictated Date: 11/05/2017 4:39:08 PM Prelim Date: 11/05/2017 4:41:05 PM Sign Date: 11/05/2017 5:06:[address] ANKLE W/O CONTRAST Observed: 11/05/2017 Status: F Source: [facility] [employer] LEFT 4:21 PM [facility] REPOSITORY ORIGINAL CT ANKLE W/O CONTRAST LEFT This exam was performed according to our departmental dose optimization program, and includes the following measures where applicable: automated exposure control, adjustment of the mAs and/or kVp accord ing to patient size and/or exam, and an iterative reconstruction algorithm. CLINICAL STATEMENT: Open fracture, trauma, pain. The patient reports standing up and her LEFT ankle gave way COMPARISON: None FINDINGS: There is fracture dislocation at the ankle joint. Compound comminuted fractures of the distal tibia and fibula are seen with severe lateral tibiotalar dislocation. There is displacement of the talus laterally by approximately 5.2 cm. There is a comminuted fracture of the distal fibula about 5 cm above the tip of the lateral malleolus with marked angulation and severe lateral displacement and overriding of the fragments. The lateral malleolus maintains its alignment with the talus with mild widening of the joint space and very small avulsions at this level. Angulation of the distal fracture fragment here measures 45 degrees. Serpig inous lucency extending through the anterior talar process to the talonavicular articulation is worrisome for nondisplaced fracture. No calcaneal fracture is seen. There is enthesopathy at the insertion of the talus tendon and origin of the plantar fascia. The hindfoot is significantly rotated laterally with respect to the distal tibia and fibula. A fragment of the medial malleolus measuring approximately 2 cm in length remains relatively orthotopic. There is medial displacement of the distal tibia which protrudes through the skin, compatible wit h open fracture. Multiple locules are soft tissue gas are seen about the ankle. There is extensive soft tissue edema. Diffuse fatty replacement of the imaged lower extremity musculature is seen. No underlying destructive bone lesion is seen. IMPRESSION: Comminuted fracture-dislocation of the ankle as described above. I have personally reviewed the images of this examination and agree with the resident's findings and interpretation. Interpreted By: Markell Joaquin MD Preliminary Report By: Armando Mark MD Electronically Signed By: Markell Joaquin MD Dictated Date: 11/05/2017 5:16:13 PM Prelim Date: 11/05/2017 5:29:51 PM Sign Date: 11/06/2017 8:29:29 AM CBC Collected: 11/05/2017 Status: F Source: [facility] 4:05 [facility] REPOSITORY TYPE CODE TESTS RESULT OUT OF REFERENCE UNITS RANGE LAB WBC(LOINC) 4.50-10.80 10 3/mcL High WBC 20.90 LAB RBCCT(LOINC 4.10-5.30 10 6/mcL ) RBC 4.29 LAB HGB(LOINC) 12.0-16.0 G/dL Hgb 12.3 LAB HCT(LOINC) 34.0-46.0 % Hct 38.9 LAB MCV(LOINC) 80.0-99.0 fL MCV 90.6 LAB MCH(LOINC) 27.0-33.0 pg MCH 28.7 LAB MCHC(LOINC) 32.0-36.0 G/dL Low MCHC 31.7 LAB RDW(LOINC) 11.5-15.5 % High RDW 17.0 LAB PLT(LOINC) 150-450 10 3/mcL Platelet 246 LAB MPV(LOINC) 6.6-10.5 fL MPV 7.9 Performed By: #### ABORH, BMP, ANTIS, TROPI, ANEU, ADIFF, CBC, PRO, GFR, APTT #### [place] [address] .AUTO DIFF Collected: 11/05/2017 Status: F Source: [facility] 4:05 [facility] REPOSITORY TYPE CODE TESTS RESULT OUT OF REFERENCE UNITS RANGE LAB NARESH(LOINC) 50.0-75.0 % High Neutrophil % 89.0 LAB LYM(LOINC) 20.0-40.0 % Low Lymphocyte % 4.3 LAB MON(LOINC) 2.0-13.0 % Monocyte % 5.9 LAB EO(LOINC) 0.0-6.0 % Eosinophil % 0.0 LAB BAS(LOINC) 0.0-2.5 % Basophil % 0.8 LAB ABLYM(LOIN 0.90-4.32 10 3/mcL C) Lymphocyte, 0.90 Absolute LAB KADY(LOINC 0.09-1.40 10 3/mcL ) Monocyte, 1.20 Absolute LAB AEOS(LOINC 0.00-0.65 10 3/mcL ) Eosinophil, 0.00 Absolute LAB ABAS(LOINC 0.00-0.27 10 3/mcL ) Basophil, 0.20 Absolute Performed By: #### ABORH, BMP, ANTIS, TROPI, ANEU, ADIFF, CBC, PRO, GFR, APTT #### [place] [address] .NEUABS Collected: 11/05/2017 Status: F Source: [facility] 4:05 [facility] REPOSITORY TYPE CODE TESTS RESULT OUT OF REFERENCE UNITS RANGE LAB ANEU(LOINC) 2.25-8.10 10 3/mcL High Neutrophil, 18.60 Absolute Performed By: #### ABORH, BMP, ANTIS, TROPI, ANEU, ADIFF, CBC, PRO, GFR, APTT #### [place] [address] BMP Collected: 11/05/2017 Status: F Source: [facility] 4:05 [facility] REPOSITORY TYPE CODE TESTS RESULT OUT OF REFERENCE UNITS RANGE LAB GLU(LOINC) 70-110 mg/dL Glucose High Level 176 LAB NA(LOINC) 136-145 mEq/L Sodium Level 137 LAB K(LOINC) 3.5-5.0 mEq/L Potassium High Level 5.9 LAB CL(LOINC) 98-110 mEq/L Chloride 107 LAB CO2(LOINC) 22-32 mEq/L Low CO2 19 LAB EBAL(LOINC 4.0-15.0 mEq/L ) Electrolyte Balance 11.0 LAB BUN(LOINC) 8.0-22.0 mg/dL BUN High 74.0 LAB CRE(LOINC) 0.50-1.20 mg/dL Creatinine High Lvl (s) 2.96 LAB BC(LOINC) 10.0-22.0 ratio High BUN/Creatinine 25.0 Ratio LAB CA(LOINC) 8.4-10.1 mg/dL Calcium Lvl 9.2 Performed By: #### ABORH, BMP, ANTIS, TROPI, ANEU, ADIFF, CBC, PRO, GFR, APTT #### [address] [address] .GFR Collected: 11/05/2017 Status: F Source: [facility] 4:05 [facility] REPOSITORY TYPE CODE TESTS RESULT OUT OF REFERENCE UNITS RANGE LAB GFRAA(LOINC ml/min/1.73 ) sqm GFR 20 [place] Result Comment: GFR Population mean for , Non- Americans Ages 20-29 = 116 mL/min/1.73 sq.m. Ages 30-39 = 107 mL/min/1.73 sq.m. Ages 40-49 = 99 mL/min/1.73 sq.m. Ages 50-59 = 93 mL/min/1.73 sq.m. Ages 60-69 = 85 mL/min/1.73 sq.m. Ages 70+ = 75 mL/min/1.73 sq.m. Chronic Kidney Disease: Less than 60 mL/min/1.73 square meters End Stage Renal Disease: Less than 15 mL/min/1.73 square meters LAB GFRNO(LOINC) ml/min/1.73sqm GFR Non- 16 Result Comment: GFR Population mean for , Non- Americans Ages 20-29 = 116 mL/min/1.73 sq.m. Ages 30-39 = 107 mL/min/1.73 sq.m. Ages 40-49 = 99 mL/min/1.73 sq.m. Ages 50-59 = 93 mL/min/1.73 sq.m. Ages 60-69 = 85 mL/min/1.73 sq.m. Ages 70+ = 75 mL/min/1.73 sq.m. Chronic Kidney Disease: Less than 60 mL/min/1.73 square meters End Stage Renal Disease: Less than 15 mL/min/1.73 square meters Performed By: #### ABORH, BMP, ANTIS, TROPI, ANEU, ADIFF, CBC, PRO, GFR, APTT #### [address] [address] TROPI Collected: 11/05/2017 Status: F Source: [facility] 4:05 [facility] REPOSITORY TYPE CODE TESTS RESULT OUT OF REFERENCE UNITS RANGE LAB TROPI(LOINC 0.000-0.040 ng/mL ) Troponin I <0.015 Result Comment: Troponin I reference ranges (12/06/13): 0.00-0.040 ng/mL Negative and non-diagnostic. >0.040 ng/mL Consistent with cardiac damage, increased clinical risk and possibility of myocardial infarction. Serial measurements, a rise & fall in test results, clinical history, appropriate symptoms and/or ECG changes may help assess possibility of VT. *Other non-acute coronary syndrome conditions such as CHF, myocarditis, pulmonary emboli, sepsis and cardiac surgery could result in myocardial damage and increased troponin levels. Performed By: #### ABORH, BMP, ANTIS, TROPI, ANEU, ADIFF, CBC, PRO, GFR, APTT #### [address] [address] APTT Collected: 11/05/2017 Status: F Source: [facility] 4:05 [facility] REPOSITORY TYPE CODE TESTS RESULT OUT OF REFERENCE UNITS RANGE LAB PDOSE(LOIN C) Heparin dose None (APTT) LAB APTT0(LOIN 25.0-35.0 seconds C) APTT 30.8 Result Comment: For Heparin anticoagulation therapy, the recommended therapeutic range is: 54-77 seconds (APTT Correlation with Anti-Xa therapeutic range of 0.3-0.7 units/ml). PLEASE REFERENCE THE PHARMACY PROTOCOL FOR DOSING. Performed By: #### ABORH, BMP, ANTIS, TROPI, ANEU, ADIFF, CBC, PRO, GFR, APTT #### [address] [address] PRO Collected: 11/05/2017 Status: F Source: [facility] 4:05 [facility] REPOSITORY TYPE CODE TESTS RESULT OUT OF REFERENCE UNITS RANGE LAB PT(LOINC) 9.0-14.5 seconds Protime 12.0 Result Comment: Effective 10/13/07, Protime results may be affected by some antibiotics (i.e. Ciprofloxacin, Azithromycin, Bactrim) which may potentiate the action of oral anticoagulants, with further increases in Protime/INR. LAB INR(LOINC) ratio PT International Ratio 1.0 Result Comment: The [place] [employer] (CHEST, 1992, 102:312S-25S) recommended therapeutic range for oral anticoagulant therapy is: LOW RISK: Prophylaxis of venous thrombosis INR: 2.0-3.0 Treatment of pulmonary embolism 2.0-3.0 Prevention of systemic embolism 2.0-3.0 HIGH RISK: Mechanical prosthetic valves 2.5-3.5 Performed By: #### ABORH, BMP, ANTIS, TROPI, ANEU, ADIFF, CBC, PRO, GFR, APTT #### [facility] [address] [place] [address] TABO Collected: 11/05/2017 Status: F Source: [facility] 4:05 PM [facility] REPOSITORY TYPE CODE TESTS RESULT OUT OF RANGE REFERENCE UNITS LAB ABORH(LOINC ) Unknown ABO/Rh O NEG Interp Performed By: #### ABORH, BMP, ANTIS, TROPI, ANEU, ADIFF, CBC, PRO, GFR, APTT #### [place] [address] TABS Collected: 11/05/2017 Status: F Source: [facility] 4:05 PM [facility] REPOSITORY TYPE CODE TESTS RESULT OUT OF REFERENCE UNITS RANGE LAB ANST(LOINC ) Antibody Negative ABSC Screen Tango Performed By: #### ABORH, BMP, ANTIS, TROPI, ANEU, ADIFF, CBC, PRO, GFR, APTT #### [place] [address] XR PELVIS 1 OR 2 Observed: 11/05/2017 Status: F Source: [employer] VIEWS 3:39 PM [facility] REPOSITORY ORIGINAL XR PELVIS 1 OR 2 VIEWS CLINICAL STATEMENT: pain; trauma patient. COMPARISON: None FINDINGS: The study is limited by the patient's body habitus. There is a questionable fracture of the LEFT femoral neck. Degenerative changes are seen within the hip joints and spine. IMPRESSION: Questionable LEFT femoral neck fracture. A dedicated x-ray of the LEFT hip is recommended. Interpreted By: Vandana Valdovinos MD Preliminary Report By: Vandana Valdovinos MD Electronically Signed By: Vandana Valdovinos MD Dictated Date: 11/05/2017 3:43:58 PM Prelim Date: 11/05/2017 3:43:58 PM Sign Date: 11/05/2017 3:45:12 PM XR CHEST 1 VIEW Observed: 11/05/2017 Status: F Source: [employer] 3:38 PM [facility] REPOSITORY ORIGINAL XR CHEST 1 VIEW at 3:52 PM CLINICAL STATEMENT: pain; trauma patient COMPARISON: None FINDINGS:The heart is enlarged. No vascular congestion, pneumothorax, focal consolidation or large pleural effusion seen. There is absence of the lateral aspect of the RIGHT clavicle, consistent with pr ior injury. The osseous structures are grossly intact. IMPRESSION:No acute process. Cardiomegaly. Interpreted By: Vandana Valdovinos MD Preliminary Report By: Vandana Valdovinos MD Electronically Signed By: Vandana Valdovinos MD Dictated Date: 11/05/2017 3:47:43 PM Prelim Date: 11/05/2017 3:47:43 PM Sign Date: 11/05/2017 3:48:57 PM EMERGENCY DEPARTMENT Observed: 11/05/2017 Status: F Source: [facility] SUMMARY 1:50 PM [facility] REPOSITORY [facility] Medical Records Department [address] [place] [place] [address] Emergency Department Summary 11/05/17 1347 MR#: [id number] Acct: [id number] Name: KANDY LAUREN ANN Rep #: [id number] : 1960 57 From: Rick Barcenas MD PCP: Pia Newton MD Status: REG ER - ER Visit Summary Date of Service: 11/05/17 Chief Complaint: Left ankle injury History of Present Illness: The patient is a 57 F who presents with a left ankle injury. She had a fall at home. She states he has been having diarrhea all night and she may have slipped in some diarrhea on the floor. She sustained an open fracture per EMS. She has a history of neuropathy and did not realize that she had a bone sticking out of her skin. She has a history of rheumatoid arthritis. EMS cover the open fracture. She had good pulses in the left foot during transport. Physical Examination: Signs reviewed. Heart is regular rate and rhythm. Lungs are clear. Abdomen soft. Left ankle exam reveals an open dislocation of the left ankle with the distal tibia exposed. There is hair located on the distal tibia, likely from a PET. Pulses in the foot are palpable. Her foot is warm. She is able to move her toes. Test Results: White blood cell count 23.4. Hemoglobin 12.6. Potassium 5.8, BUN 41, creatinine 3.72. FOBT negative. Left ankle x-ray reveals an open fracture dislocation Emergency Department Course and Treatment: Patient had Ancef and tetanus updated. She is given morphine and normal saline. Patient is dehydrated along with her open fracture dislocation. Patient will require transferred due to the open fracture. She requested to go to [place]. I spoke with Dr. Robbins in the emergency department there and the patient will be transferred did I did not relocate the ankle because she has good distal pulses and the fact that she has gross contamination of the distal tibia that I do not want to introduce into the joint space. We will put a wet-to-dry bulky dressing before transport. Treatment Plan: [] Disposition: Transfer Impression: Open fracture dislocation left ankle Acute kidney injury, dehydration This note was generated with [employer] dictation software. It may contain incorrect words, spelling, and punctuation that were not noted in review of the chart prior to signing ED Disposition - Plan for ED Patient: Chief Complaint: Fall Referrals: Pia Newton MD [Primary Care Provider] - What to do if you have Problems For any increased pain, shortness of breath, bleeding, nausea or vomiting, chest pain, or any unexpected problems, contact your Primary Care Provider. Call [facility] ([phone]) or report to the closest Emergency Room. Call 911 if necessary. 11/05/17 1350 <Electronically signed by Rick Barcenas MD> Date Rick Barcenas MD Cosigner Signature (If Indicated): Date CC: Pia Newton MD Observed: 11/05/2017 Status: F Source: [facility] STOOL OCCULT BLOOD 1:05 PM [facility] IFOB REPOSITORY Order Date: 11/05/17 STOB iFOB Occult Blood Negative Performed By: #### M100.7900 #### [facility] [address] [place], [address] CBC W/DIFF, AUTOMATED Collected: 11/05/2017 Status: F Source: [facility] 12:50 PM [facility] REPOSITORY TYPE CODE TESTS RESULT OUT OF RANGE REFERENCE UNITS LAB L100.1000 4.4-11.0 K/mm3 High WBC 23.4 LAB L100.1200 4.2-5.4 M/mm3 Normal RBC 4.35 LAB L100.1300 12.0-15.0 g/dl Normal HGB 12.6 LAB L100.1400 37-47 % Normal HCT 39.8 LAB L100.1500 81-99 fL Normal MCV 91.5 LAB L100.1600 27.0-32.0 pg Normal MCH 29.0 LAB L100.1700 32-36 g/gl Low MCHC 31.7 LAB L100.1810 11.6-14.6 % High RDW CV 16.4 LAB L100.1820 35.1-43.9 fl High RDW SD 55.1 LAB L100.1900 150-450 K/mm3 Normal PLT 217 LAB L100.2000 6.2-12.0 fl Normal MPV 9.9 LAB L100.2100 47-70 % High NEUT% 87.0 LAB L100.2200 19-41 % Low LY% 8.9 LAB L100.2300 0-10 % Normal MONO% 3.3 LAB L100.2400 0-5 % Normal EO% 0.1 LAB L100.2500 0-1 % Normal BASO% 0.1 LAB L100.2550 0.0-0.9 % Normal IM GRAN % 0.600 Result Comment: IG% - Immature Granulocytes (promyelocytes, myelocytes and metamyelocytes) > 1% indicates that a LEFT SHIFT is Present. LAB L100.2620 2.0-7.7 X10 3/uL High Absolute Neut 20.4 LAB L100.2720 0.83-4.51 X10 3/ul Normal Absolute Lymph 2.08 LAB L100.4500 Normal SMEAR COMMENT COMMENT Result Comment: SLIDE SCANNED - NEUTROPHILIA NOTED. Performed By: #### L100.0100 #### [facility] [address] [place], [address] BASIC METABOLIC Collected: 11/05/2017 Status: F Source: [facility] PROFILE (BMP) 12:50 PM [facility] REPOSITORY TYPE CODE TESTS RESULT OUT OF RANGE REFERENCE UNITS LAB L501.0100 74-106 mg/dL High GLU 195 Result Comment: Fasting Glucose result greater than or equal to 126 mg/dL suggests DIABETES MELLITUS per A.D.A. criteria. Please note revised GLUCOSE reference range effective 2017. LAB L501.1000 7-18 mg/dL High BUN 71 LAB L501.1100 0.55-1.02 mg/dL High CREAT,SERUM 3.72 Result Comment: The validity of the calculated GFR AND GFRAA in patients over 70 years has not been determined. Clinical correlation is essential. LAB L501.1110 >60 mL/min Low EST GFR 13 Result Comment: Non- GFR Calc LAB L501.1115 >60 mL/min Low EST GFR - AA 16 Result Comment: GFR Calc LAB L501.1255 ml/min Normal Estimated CRCL 15.24 LAB L501.1300 10-20 RATIO Normal BUN/CRE 19.1 LAB L501.2200 8.5-10 mg/dL Normal .1 CA 9.5 LAB L501.5300 136-14 mmol/L Normal 5 NA 136 LAB L501.5600 3.5-5. mmol/L High 1 K 5.8 LAB L501.5900 98-107 mmol/L Normal CL 106 LAB L501.6100 21.0-3 mmol/L Low 2.0 CO2 17.0 LAB L501.6200 5-15 Normal GAP 13 Performed By: #### L500.2500 #### [facility] [address] [facility] [place] [place], [address] PROTHROMBIN TIME W/INR Collected: 11/05/2017 Status: F Source: [facility] 12:50 PM [facility] REPOSITORY TYPE CODE TESTS RESULT OUT OF RANGE REFERENCE UNITS LAB L300.4150 11.7-14.9 SECONDS Normal PROTIME 14.7 LAB L300.4200 Normal INR 1.2 Performed By: #### L300.3900 #### [facility] [address] [facility] [place], [address] ANKLE 2 VIEWS Observed: 11/05/2017 Status: F Source: [facility] 12:26 PM [facility] REPOSITORY [facility] Imaging Services [address] [place] [address] Ankle 2 Views MR#: [id number] Acct: [id number] Name: KANDY LAUREN Rep #: [id number] : 1960 F 57 From: Jason Fernandez MD PCP: Pia Newton MD Status: REG ER Study: Ankle 2 Views Date of Exam: 11/05/17 Exam# [id number] Ordering Dr: Rick Barcenas MD STUDY: X-RAY - LEFT ANKLE REASON FOR EXAM: Fall. TECHNIQUE: 2 view(s) of the ankle. COMPARISON: None. FINDINGS: There is a displaced fracture of the distal fibula, a displaced fracture of the medial malleolus and lateral dislocation of the tibiotalar articulation. Normal visualized talus and calcaneus. There is a soft tissue defect of the medial aspect of the ankle. RAD/Ankle 2 Views IMPRESSION: Left ankle fracture dislocation. Electronically Signed: Jason Fernandez MD at 14:07 EDT Tel , Service support , CC: Pia Newton MD; Rick Barcenas MD Political Worker: Signed CBC W/DIFF, AUTOMATED Collected: 10/23/2017 Status: F Source: ANA 2:38 PM [facility] REPOSITORY TYPE CODE TESTS RESULT OUT OF RANGE REFERENCE UNITS LAB L100.1000 4.4-11.0 K/mm3 Normal WBC 8.5 LAB L100.1200 4.2-5.4 M/mm3 Low RBC 4.02 LAB L100.1300 12.0-15.0 g/dl Low HGB 11.7 LAB L100.1400 37-47 % Low HCT 36.4 LAB L100.1500 81-99 fL Normal MCV 90.5 LAB L100.1600 27.0-32.0 pg Normal MCH 29.1 LAB L100.1700 32-36 g/gl Normal MCHC 32.1 LAB L100.1810 11.6-14.6 % High RDW CV 16.1 LAB L100.1820 35.1-43.9 fl High RDW SD 52.6 LAB L100.1900 150-450 K/mm3 Normal PLT 271 LAB L100.2000 6.2-12.0 fl Normal MPV 9.8 LAB L100.2100 47-70 % Normal NEUT% 63.6 LAB L100.2200 19-41 % Normal LY% 24.1 LAB L100.2300 0-10 % Normal MONO% 7.7 LAB L100.2400 0-5 % Normal EO% 3.2 LAB L100.2500 0-1 % Normal BASO% 0.5 LAB L100.2550 0.0-0.9 % Normal IM GRAN % 0.900 Result Comment: IG% - Immature Granulocytes (promyelocytes, myelocytes and metamyelocytes) > 1% indicates that a LEFT SHIFT is Present. LAB L100.2620 2.0-7.7 X10 3/uL Normal Absolute Neut 5.4 LAB L100.2720 0.83-4.51 X10 3/ul Normal Absolute Lymph 2.05 Performed By: #### L100.0100 #### [facility] [address] [place], [place], [address] URINALYSIS, ROUTINE Collected: 10/23/2017 Status: F Source: GANTT (DIPSTICK) 2:38 PM [facility] REPOSITORY Order Comment: How was Urine Obtained? Urine, Random TYPE CODE TESTS RESULT OUT OF RANGE REFERENCE UNITS LAB L400.3000 Yellow COLOR Normal Yellow LAB L400.3050 Clear Normal CLARITY Clear LAB L400.3200 Normal mg/dl Normal GLUCOSE, UR Normal LAB L400.3300 Negative mg/dL Normal BILIRUBIN URINE Negative LAB L400.3400 Negative mg/dl Normal KETONE UR Negative LAB L400.3465 1.002-1.030 Normal SP.GR. DIPSTX 1.015 LAB L400.3550 5.0 - 8.0 pH UR Normal 6.0 LAB L400.3600 Negative mg/dl High PROT DIPSTX 100 LAB L400.3700 Normal mg/dl Normal UROBILI Normal LAB L400.3750 Negative Normal NITRITE UR Negative LAB L400.3780 Negative /ul High 10 OCCULT BLOOD-UR LAB L400.3800 Negative /ul High LEUK ESTERASE 100 Performed By: #### L400.2011 #### [facility] [address] [place], [address] COMPREHENSIVE METABOLIC Collected: 10/23/2017 Status: F [facility]38 PM [facility] REPOSITORY TYPE CODE TESTS RESULT OUT OF RANGE REFERENCE UNITS LAB L501.0100 74-106 mg/dL High GLU 149 Result Comment: Fasting Glucose result greater than or equal to 126 mg/dL suggests DIABETES MELLITUS per A.D.A. criteria. Please note revised GLUCOSE reference range effective 2017. LAB L501.1000 7-18 mg/dL High BUN 61 LAB L501.1100 0.55-1.02 mg/dL High CREAT,SERUM 2.56 Result Comment: The validity of the calculated GFR AND GFRAA in patients over 70 years has not been determined. Clinical correlation is essential. LAB L501.1110 >60 mL/min Low EST GFR 20 Result Comment: Non- GFR Calc LAB L501.1115 >60 mL/min Low EST GFR - AA 25 Result Comment: GFR Calc LAB L501.1300 10-20 RATIO High BUN/CRE 23.8 LAB L501.1500 6.4-8.2 g/dL T Normal PROT 7.7 LAB L501.1800 3.2-5.0 g/dL Normal ALB 3.5 LAB L501.1950 2.2-4.2 g/dL Normal GLOB 4.2 LAB L501.2000 0.9-2.4 RATIO Low A/G 0.8 LAB L501.2200 8.5-10.1 mg/dL CA Normal 9.2 LAB L501.4100 15-37 U/L Low AST 13 LAB L501.4305 45-117 U/L Normal ALK P 113 LAB L501.4405 13-56 U/L Normal ALT 23 LAB L501.4600 0.20-1.00 mg/dL T Normal BILI 0.20 LAB L501.5300 136-145 mmol/L NA Normal 137 LAB L501.5600 3.5-5.1 mmol/L High K 5.2 LAB L501.5900 98-107 mmol/L CL Normal 107 LAB L501.6100 21.0-32.0 mmol/L Low CO2 20.0 LAB L501.6200 5-15 Normal GAP 10 Performed By: #### L500.4050, L501.1400 #### [facility] [address] [place], [address] URIC ACID Collected: 10/23/2017 Status: F Source: ANA 2:38 PM [facility] REPOSITORY TYPE CODE TESTS RESULT OUT OF RANGE REFERENCE UNITS LAB L501.1400 2.6-6.0 mg/dL Normal URIC 4.9 Result Comment: The drugs N-Acetylcysteine and Metamizole may falsely depress this assay. Performed By: #### L500.4050, L501.1400 #### [facility] [address] [place], [address] PROTEIN+CREATININE Collected: Status: F Source: ANA CRAIG,URINE 10/23/2017 2:38 PM [facility] REPOSITORY TYPE CODE TESTS RESULT OUT OF RANGE REFERENCE UNITS LAB L501.1200 NO RANGE EST. mg/dL Normal UR CREAT 64.00 LAB L501.1930 <11.9 mg/dL High 103.8 PROTEIN,UR.R AN. LAB L501.1940 0-200 mg/g CRE High PROT:CRE 1622 RATIO Performed By: #### L501.0900 #### [facility] [address] [place], [address] Observed: 09/19/2017 Status: F Source: ANA CULTURE, DEEP WOUND 11:00 AM [facility] REPOSITORY Comments: RIGHT HEEL / NON HEALING WOUND/ INFECTED WOUND Gram Stain Gram Stain 2+ Gram positive cocci No White Blood Cells Wound Culture ORGANISM 1: Citrobacter freundii Amount Growth 2+ ORGANISM 2: Burkholderia cepacia Amount Growth 3+ ORGANISM 3: Streptococcus agalactiae (B) Amount Growth Rare Citrobacter freundii: REACTION Amoxacillin/Clavulanic Acid $ 16 R Cefazolin $ >=64 R Cefepime $ <=1 S Ceftriaxone $ <=1 S Ciprofloxacin $ <=0.25 S Ertapenim $$$ <=0.5 S Gentamicin $ <=1 S Imipenem *NF <=0.25 S Levofloxacin $ <=0.12 S Tobramycin $ <=1 S Trimethoprim/Sulfametho $ <=20 S (NF) indicates non-formulary drug at [facility]. Approval by Infectious Disease Specialist required before non-formulary drugs may be ordered and/or dispensed. Burkholderia cepacia: REACTION Ceftazidime *NF 4 S Ceftriaxone $ 16 I Ciprofloxacin $ <=0.25 S Gentamicin $ <=1 S Imipenem *NF 1 S Levofloxacin $ 1 S Piperacillin/Tazobactam $$ 8 S Tobramycin $ <=1 S Trimethoprim/Sulfametho $ 80 R (NF) indicates non-formulary drug at [facility]. Approval by Infectious Disease Specialist required before non-formulary drugs may be ordered and/or dispensed. Streptococcus agalactiae (B): REACTION Ampicillin $ <=0.25 S Benzylpenicillin NF <=0.06 S Ceftriaxone $ <=0.12 S Clindamycin $$ >=1 R Inducable Clindamycin Resistan - Linezolid $$$$ <=2 S Vancomycin $ 0.5 S (NF) indicates non-formulary drug at [facility]. Approval by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 walking, joint pain or limited range of motion Skin Skin: No redness, dry skin, itching, lesions, wounds or rash Neuro Neurology: Positive for weakness, frequent falls, numbness (legs), tingling and unsteady gait/balance; no headache(s), abnormal hearing, abnormal walking, abnormal speech, dizziness or memory loss Psych Psychiatric: No change in appetite, No memory loss, No anxiety, No depression, No Thoughts of harming yourself/Others Endo Endocrine: Positive for fatigue; no excessive sweating, cold intolerance, increased thirst/drinking, heat intolerance, flushing or increased hunger Aller/Imm Allergy/Immunologic: No wheezing, itchy eyes, hives or seasonal allergy symptoms Ravinder/Lymp Hematologic/Lymphatic: No easy bleeding, easy bruising or enlarged lymph nodes Exam Const General: cooperative Orientation: alert, awake, oriented x3 HENMT Head: atraumatic, normocephalic Ears: hearing grossly normal bilaterally Resp Effort AND Inspection: normal respiratory effort, able to speak in complete sentences Auscultation: Bilateral: Clear to Auscultation Cardio Rate: regular rate Rhythm: regular rhythm Heart Sounds: S1 normal, S2 normal GI Inspection: obesity Palpation: soft, no hepatosplenomegaly Musc Musculoskeletal: Yes muscle weakness (legs, shaky) Neuro General: alert, oriented x3, awake, CN's II-XI intact bilaterally, moves all extremities Psych Appearance: grossly normal Mood: congruent mood Affect: normal affect Assessment AND Plan 1. Falls W19.XXXA Plan Patient has had 2 episodes of falls over the past 2-3 months. Episodes were mechanical. Falls are most likely multifactorial an due to her debility, peripheral neuropathy and Chronic low back pain with radiculopathy. Patient advised on clearing her pathways and environment. Also advised on wearing appropriate foot wear at all time however, patient stated that she was not going to. Referred to physical therapy. Advised to call the office if she notes any worsening or extremity weakness. Orders Referrals: 2. Diabetic foot ulcer associated with type 2 diabetes mellitus E11.621; L97.509 Plan Following up at the wound center. Will follow. 3. Type 2 diabetes mellitus with diabetic polyneuropathy, unspecified whether shelter insulin use E11.42 Plan Stable. A1c around 7.6-7.7. Continue current medications. Referred to the [facility]. Follow-up in 2 months. This note was generated with Thounds dictation software. It may contain incorrect words, spelling, and punctuation that were not noted in checking the note before signing. 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 mg/dL Normal UR CREAT 48.70 LAB L501.1930 <11.9 mg/dL High 125.5 PROTEIN,UR.R AN. LAB L501.1940 0-200 mg/g CRE High PROT:CRE 2577 RATIO Performed By: #### L501.0900 #### [facility] [address] [place], [address] RENAL PROFILE Collected: 06/09/2017 Status: F Source: ANA 2:47 PM [facility] REPOSITORY TYPE CODE TESTS RESULT OUT OF RANGE REFERENCE UNITS LAB L501.0100 74-106 mg/dL High GLU 209 Result Comment: Glucose result greater than or equal to 200 mg/dL suggests DIABETES MELLITUS per A.D.A. criteria. Please note revised GLUCOSE reference range effective 2017. LAB L501.1000 7-18 mg/dL High BUN 42 LAB L501.1100 0.55-1.02 mg/dL High CREAT,SERUM 1.81 Result Comment: The validity of the calculated GFR AND GFRAA in patients over 70 years has not been determined. Clinical correlation is essential. LAB L501.1110 >60 mL/min Low EST GFR 30 Result Comment: Non- GFR Calc LAB L501.1115 >60 mL/min Low EST GFR - AA 37 Result Comment: GFR Calc LAB L501.1300 10-20 RATIO High BUN/CRE 23.2 LAB L501.1800 3.2-5.0 g/dL Normal ALB 3.2 LAB L501.2200 8.5-10.1 mg/dL CA Normal 9.0 LAB L501.2300 2.5-4.9 mg/dL Normal PHOS 4.3 LAB L501.5300 136-145 mmol/L NA Normal 138 LAB L501.5600 3.5-5.1 mmol/L K Normal 4.9 LAB L501.5900 98-107 mmol/L CL Normal 106 LAB L501.6100 21.0-32.0 mmol/L Normal CO2 22.0 Performed By: #### L500.3600, L501.5200 #### [facility] [address] [place], [place], [id number] MAGNESIUM Collected: 06/09/2017 Status: F Source: [place]TT 2:47 PM [facility] REPOSITORY TYPE CODE TESTS RESULT OUT OF RANGE REFERENCE UNITS LAB L501.5200 1.6-2.6 mg/dL Normal MG 1.9 Result Comment: Please note revised Magnesium reference range effective 2017. Performed By: #### L500.3600, L501.5200 #### [facility] [address] [place], [place], [address] HEMOGLOBIN A1C Collected: 06/09/2017 Status: F Source: [place]TT 2:47 PM [facility] REPOSITORY TYPE CODE TESTS RESULT OUT OF RANGE REFERENCE UNITS LAB L501.9985 4.2-6.3 % High HGB A1C 7.7 Performed By: #### L501.9985 #### [facility] [address] [place], [place], [address] VITAMIN D,25 HYDROXY Collected: 06/09/2017 Status: F Source: ANA 2:47 PM [facility] REPOSITORY TYPE CODE TESTS RESULT OUT OF REFERENCE UNITS RANGE LAB L506.1000 29.95-100.01 ng/mL Low Vitamin D 7.9 25-OH Result Comment: Vitamin D 25(OH) Status Range Deficiency <20 ng/mL (50nmol/L) Insuffciency 20 - 30 ng/mL (50 - 75 nmol/L) Sufficiency 30 - 100 ng/mL (75 - 250 nmol/L) Toxicity >100 ng/mL (>250 nmol/L) Performed By: #### L506.1000 #### [facility] [address] [place], [address] PTHIN Collected: 06/09/2017 Status: F Source: ANA 2:47 PM [facility] REPOSITORY TYPE CODE TESTS RESULT OUT OF RANGE REFERENCE UNITS LAB L509.1000 18.4-80.1 pg/mL High PTHIN 127.6 Result Comment: Please Note: PTH INTACT METHOD AND REFERENCE RANGE CHANGE Effective 03/19/2017. Performed By: #### L509.1000 #### [facility] [address] [place], [address] INTERNAL MEDICINE Observed: 05/30/2017 Status: F Source: ANA OFFICE VISIT 1:11 PM [facility] REPOSITORY [facility] [address] [place] [address] OFFICE VISIT Date of Service: 05/27/17 MR#: [id number] Acct: [id number] Name: KANDY LAUREN Milind Rep #: [id number] : 1960 Provider: Pia Newton MD Age/Sex: 57/F Location: [facility] Status: Signed Intake Vital Signs05/27/17 Height 5 ft 6 in Intake Visit Reasons: 3 M FU Chief Complaint: follow-up visit Is patient in pain?: Yes (arthritic pain) Pain scale (1-10): 6 Allergies aspirin Allergy (Verified 11/22/16 16:26) Hives latex Allergy (Verified 11/22/16 16:26) Hives Medications Allopurinol 300 mg PO DAILY 12/03/16 [History Confirmed 05/27/17] Amitriptyline HCl 75 mg PO QHS 12/03/16 [History Confirmed 05/27/17] Atenolol 50 mg PO DAILY 12/03/16 [History Confirmed 05/27/17] cyclobenzaprine 10 mg tablet 10 mg PO TID PRN #60 tab 03/13/17 [Rx Confirmed 05/27/17] liraglutide 0.6 mg/0.1 mL (18 mg/3 mL) subcutaneous pen injector 1.2 mg SC QDAY #9 ml 03/13/17 [Rx Confirmed 05/27/17] atorvastatin 40 mg tablet 40 mg PO QDAY #90 tab 05/27/17 [Rx Confirmed 05/27/17] bevacizumab 25 mg/mL intravenous solution 1.25 mg INTRAVIT QMONTH 05/27/17 [History Confirmed 05/27/17] cholecalciferol (vitamin D3) 2,000 unit capsule 2,000 unit PO ONCE 05/27/17 [History Confirmed 05/27/17] clopidogrel 75 mg tablet 150 mg PO QDAY 05/27/17 [History Confirmed 05/27/17] colchicine 0.6 mg capsule 0.6 mg PO ONCE 05/27/17 [History Confirmed 05/27/17] diltiazem CD 180 mg capsule,extended release 24 hr 180 mg PO ONCE 05/27/17 [History Confirmed 05/27/17] gabapentin 300 mg capsule 300 mg PO TID 05/27/17 [History Confirmed 05/27/17] hydroxychloroquine 200 mg tablet 200 mg PO QDAY 05/27/17 [History Confirmed 05/27/17] ipratropium 20 mcg-albuterol 100 mcg/actuation mist for inhalation INHALATION 05/27/17 [History Confirmed 05/27/17] lisinopril 40 mg tablet 40 mg PO QDAY 05/27/17 [History Confirmed 05/27/17] mometasone 50 mcg/actuation nasal spray 2 spray INTRANASAL QDAY 05/27/17 [History Confirmed 05/27/17] multivitamin with iron tablet 1 tab PO QDAY 05/27/17 [History Confirmed 05/27/17] omega-3 fatty acids 1,000 mg capsule 1,000 mg PO QDAY 05/27/17 [History Confirmed 05/27/17] sitagliptin 100 mg tablet 100 mg PO QDAY 05/27/17 [History Confirmed 05/27/17] tramadol 50 mg tablet 50 mg PO ONCE 05/27/17 [History Confirmed 05/27/17] triamterene 75 mg-hydrochlorothiazide 50 mg tablet 1 tab PO QAM 05/27/17 [History Confirmed 05/27/17] PFSH Medical History History of carpal tunnel release (Acute) Surgical History History of hysterectomy (Acute) amputation of right pinke toe (Acute) history of 2 back sugeries (Acute) history of right femoral stent (Acute) history of right shoulder surgery (Acute) Family History Mother Diabetes Hypertension CVA (cerebral vascular accident) Brother Alcoholism Sister Cancer Father Heart disease Respiratory disease Social History Smoking Status: Never smoker alcohol intake: never substance use type: does not use what type of physical activity do you participate in: none HPI HPI Chief Complaint: follow-up visit Details: KANDY LAUREN, is a 57yo F who presents to the office today for follow-up of her chronic medical conditions. She has no acute complaints at this time. She reports better control blood sugars since her medication adjustments. Last A1c in January was 7.6. She reports compliance with her medication. She currently is not following up with the wound center anymore. Her right toe ulcer status post toe amputation is said to have healed. She currently does not wear any diabetic shoes. She denies any history of trauma. On examination of the foot, a lateral heel ulcer was noted. States that this has been present for over a month. She states that she ripped her skin because she thought it was a Band-Aid. She has been cleaning with iodine and applying hydrogel and some other products she had as left overs from the wound center. She denies any significant discharge from the ulcer. She also denies chills, fever, nausea or any change in her bowel habit. She still smokes daily. ROS Const Constitutional: No weight change, body ache, chills, fatigue, sleep problems, fever(s), change in appetite, snoring, weakness, frequent falls, headache(s) or excessive sweating Eyes Eyes: No change in vision, eye pain, light sensitivity or blurry vision ENT ENT: No headache(s), abnormal hearing, ear pain, tinnitus, nasal congestion, sore throat or neck pain Resp Respiratory: No snoring, cough, shortness of breath or wheezing Cardio Cardiology: No excessive sweating, chest pain at rest, chest pain with exertion, shortness of breath, dyspnea on exertion, palpitations, orthopnea or lightheadedness Gastro GI: No abdominal pain, change in bowel habits, constipation, diarrhea, vomiting, nausea/dyspepsia or cramping Musc Musculoskeletal: Positive for numbness, tingling, other (trouble with arthric pain.) and joint swelling (right ankle); no neck pain, abnormal walking, joint pain, back pain or limited range of motion Skin Skin: No redness, dry skin, itching, lesions, wounds or rash Neuro Neurology: Positive for numbness and tingling; no weakness, frequent falls, headache(s), abnormal hearing, abnormal walking, abnormal speech, dizziness or memory loss Psych Psychiatric: No change in appetite, No memory loss, No anxiety, No depression, No Thoughts of harming yourself/Others Endo Endocrine: No fatigue, excessive sweating, cold intolerance, increased thirst/drinking, heat intolerance, flushing or increased hunger Aller/Imm Allergy/Immunologic: No wheezing, itchy eyes, hives or seasonal allergy symptoms Ravinder/Lymp Hematologic/Lymphatic: No easy bleeding, easy bruising or enlarged lymph nodes Exam Const General: cooperative, no acute distress Orientation: alert [facility] Head: atraumatic, normocephalic Ears: hearing grossly normal bilaterally Resp Effort AND Inspection: normal respiratory effort, able to speak in complete sentences Auscultation: Bilateral: Clear to Auscultation Cardio Rate: regular rate Rhythm: regular rhythm Heart Sounds: S1 normal, S2 normal GI Inspection: obesity Palpation: soft, no hepatosplenomegaly Neuro General: alert, awake, oriented x3, moves all extremities, CN's II-XI intact bilaterally Extrem General: no pedal edema Other: Right lateral heel ulcer with periwound maceration. No significant drainage or foul smell appreciated. Psych Appearance: grossly normal Mental Status: mental status grossly normal Mood: congruent mood Assessment AND Plan 1. Diabetic foot ulcer associated with type 2 diabetes mellitus E11.621; L97.509 Plan She reports a right lateral heel wound which she first noticed after she ripped what she thought was a band aid but was her skin. She has been managing it at home with some of the products she got from the wound center for her toe ulcer. She denies any discharge or foul smell. Significant maceration noted around the periwound. Referred to the wound center. Most preferably to be seen by a machine driller. Follow-up in 1 month. 2. Type 2 diabetes mellitus E11.9 Plan Achieving better control. Last A1c was 7.6 down from 8. Currently on Victoza and sitagliptin. Will get an A1c now. Will also repeat her urine microalbumin creatinine ratio. Last ratio was greater than 2000. Lifestyle modifications again encouraged. Follow-up with results. 3. Hypertension I10 Plan Better controlled. Continue current medication. Continue dietary modification. Follow-up at next visit. 4. Hyperlipidemia E78.5 Plan Currently on 40 mg of atorvastatin daily. We will get a lipid profile. Follow-up with results. This note was generated with Thounds dictation software. It may contain incorrect words, spelling, and punctuation that were not noted in checking the note before signing. Plan Detail Other Orders Orders: Referrals: Other Medications New: Discontinued: Follow Up 1 Month Coding Level of Care Code Off vis,est,level 4 Diagnoses Diabetic foot ulcer associated with type 2 diabetes mellitus E11.621; L97.509 Type 2 diabetes mellitus E11.9 Hypertension I10 Hyperlipidemia E78.5 05/30/17 1311 <Electronically signed by Pia Newton MD> Date Pia Newton MD Cosigner Signature: Date (if applicable) CC: LIPID PROFILE Collected: 05/29/2017 Status: F Source: ANA 8:55 AM [facility] REPOSITORY TYPE CODE TESTS RESULT OUT OF RANGE REFERENCE UNITS LAB L501.4900 200 mg/dL High CHOL 266 Result Comment: <200 mg/dL Desirable 200-240 mg/dL Borderline >240 mg/dL High Risk LAB L501.5000 mg/dL High TRIG 650 Result Comment: The drugs N-Acetylcysteine and Metamizole may falsely depress this assay. TRIGLYCERIDE IS GREATER THAN 400 mg/dL. LDL RESULT IS INVALID AND WILL NOT BE REPORTED. Serum Triglycerides Reference Interval Normal <150 mg/dL Borderline high 150 - 199 mg/dL High 200 - 499 mg/dL Very High > or = 500 mg/dL LAB L501.6400 mg/dL Low HDL 32 Result Comment: The drugs N-Acetylcysteine and Metamizole may falsely depress this assay. Reference Range HDL <40 mg/dL Low HDL Cholesterol HDL >or= 60 mg/dL High HDL Cholesterol LAB L501.6500 0-130 mg/dL Test Normal not performed LDL LAB L501.6600 5-40 mg/dL Test Normal not performed VLDL Performed By: #### L500.4100, L502.0250 #### [facility] [address] [place], [address] MICROALB:CREAT Collected: 05/29/2017 Status: F Source: GANTT RATIO,RANDOM UR 8:55 AM [facility] REPOSITORY TYPE CODE TESTS RESULT OUT OF RANGE REFERENCE UNITS LAB L501.1200 NO RANGE EST. mg/dL Normal UR CREAT 52.50 LAB L502.0500 NO RANGE EST. mg/L Normal 958.0 MICROALBUMIN ,UR LAB L502.0600 <30 mg/g CRE mg/g CRE High 1824.8 MALB:CREAT Performed By: #### L500.4100, L502.0250 #### [facility] [address] [place], [address] HEMOGLOBIN A1C Collected: 05/29/2017 Status: F Source: GANTT 8:55 AM [facility] REPOSITORY TYPE CODE TESTS RESULT OUT OF RANGE REFERENCE UNITS LAB L501.9985 4.2-6.3 % High HGB A1C 7.6 Performed By: #### L501.9985 #### [facility] [address] [place], [address] CBC W/DIFF, AUTOMATED Collected: 05/06/2017 Status: F Source: [facility]TT 2:18 PM [facility] [place] REPOSITORY TYPE CODE TESTS RESULT OUT OF RANGE REFERENCE UNITS LAB L100.1000 4.4-11.0 K/mm3 Normal WBC 8.8 LAB L100.1200 4.2-5.4 M/mm3 Normal RBC 4.60 LAB L100.1300 12.0-15.0 g/dl Normal HGB 13.6 LAB L100.1400 37-47 % Normal HCT 41.0 LAB L100.1500 81-99 fL Normal MCV 89.1 LAB L100.1600 27.0-32.0 pg Normal MCH 29.6 LAB L100.1700 32-36 g/gl Normal MCHC 33.2 LAB L100.1810 11.6-14.6 % High RDW CV 14.7 LAB L100.1820 35.1-43.9 fl High RDW SD 47.6 LAB L100.1900 150-450 K/mm3 Normal PLT 216 LAB L100.2000 6.2-12.0 fl Normal MPV 10.1 LAB L100.2100 47-70 % Normal NEUT% 61.6 LAB L100.2200 19-41 % Normal LY% 26.1 LAB L100.2300 0-10 % Normal MONO% 8.5 LAB L100.2400 0-5 % Normal EO% 2.6 LAB L100.2500 0-1 % Normal BASO% 0.3 LAB L100.2550 0.0-0.9 % Normal IM GRAN % 0.900 Result Comment: IG% - Immature Granulocytes (promyelocytes, myelocytes and metamyelocytes) > 1% indicates that a LEFT SHIFT is Present. LAB L100.2620 2.0-7.7 X10 3/uL Normal Absolute Neut 5.4 LAB L100.2720 0.83-4.51 X10 3/ul Normal Absolute Lymph 2.31 Performed By: #### L100.0100 #### [facility] [address] [place], [place], [id number] COMPREHENSIVE METABOLIC Collected: 05/06/2017 Status: F Source: ANA [facility] 2:18 PM [facility] REPOSITORY TYPE CODE TESTS RESULT OUT OF RANGE REFERENCE UNITS LAB L501.0100 74-106 mg/dL High GLU 193 Result Comment: Fasting Glucose result greater than or equal to 126 mg/dL suggests DIABETES MELLITUS per A.D.A. criteria. LAB L501.1000 7-18 mg/dL High BUN 58 LAB L501.1100 0.55-1.02 mg/dL High CREAT,SERUM 2.14 Result Comment: The validity of the calculated GFR AND GFRAA in patients over 70 years has not been determined. Clinical correlation is essential. LAB L501.1110 >60 mL/min Low EST GFR 25 Result Comment: Non- GFR Calc LAB L501.1115 >60 mL/min Low EST GFR - AA 30 Result Comment: GFR Calc LAB L501.1300 10-20 RATIO High BUN/CRE 27.1 LAB L501.1500 6.4-8.2 g/dL T Normal PROT 7.7 LAB L501.1800 3.2-5.0 g/dL Normal ALB 3.5 LAB L501.1950 2.2-4.2 g/dL Normal GLOB 4.2 LAB L501.2000 0.9-2.4 RATIO Low A/G 0.8 LAB L501.2200 8.5-10.1 mg/dL CA Normal 9.0 LAB L501.4100 15-37 U/L Normal AST 19 Result Comment: Slight Hemolysis, Result may be falsely increased. LAB L501.4305 45-117 U/L Normal ALK P 106 LAB L501.4405 13-56 U/L Normal ALT 25 Result Comment: Please note revised ALT reference range effective 2017. LAB L501.4600 0.20-1.00 mg/dL Normal T BILI 0.30 LAB L501.5300 136-145 mmol/L Low NA 133 LAB L501.5600 3.5-5.1 mmol/L Normal K 4.9 Result Comment: Slight Hemolysis, Result may be falsely increased. LAB L501.5900 98-107 mmol/L Normal CL 103 LAB L501.6100 21.0-32.0 mmol/L Low CO2 19.0 LAB L501.6200 5-15 Normal GAP 11 Performed By: #### L500.4050, L501.1400 #### [facility] [address] [place], [place], [id number] URIC ACID Collected: 05/06/2017 Status: F Source: ANA 2:18 PM [facility] REPOSITORY TYPE CODE TESTS RESULT OUT OF RANGE REFERENCE UNITS LAB L501.1400 2.6-6.0 mg/dL Normal URIC 5.3 Result Comment: The drugs N-Acetylcysteine and Metamizole may falsely depress this assay. Performed By: #### L500.4050, L501.1400 #### [facility] [address] [place], [address] Observed: 03/18/2017 Status: F Source: ANA CULTURE, DEEP WOUND 3:40 PM [facility] REPOSITORY Gram Stain Gram Stain Rare Epithelial cells No organisms seen Wound Culture Clinical correlation necessary, Possible skin contamination. ORGANISM 1: Staphylococcus epidermidis Amount Growth 2+ Staphylococcus epidermidis: REACTION Benzylpenicillin NF >=0.5 R Cefoxitin *NF + Clindamycin $$ <=0.25 S Inducable Clindamycin Resistan - Erythromycin $ >=8 R Gentamicin $ <=0.5 S Levofloxacin $ <=0.12 S Linezolid $$$$ 1 S Oxacillin NF >=4 R Tigecycline $$$$ 0.25 S Rifampin $$ <=0.5 S Tetracycline NF <=1 S Vancomycin $ 2 S (NF) indicates non-formulary drug at [facility]. Approval by Infectious Disease Specialist required before non-formulary drugs may be ordered and/or dispensed. * CLSI guidelines does not recommend testing of cephalosporins. This interpretation is deduced from Beta-lactam/penicillin results. Cult, Anaerobic No anaerobic bacteria isolated. Performed By: #### M100.1500 #### [facility] [address] [place], [address] ALLERGIES ALLERGIES DATE TYPE / CODE NAME / CODE REACTION SEVERITY SOURCE 03/09/2018 Drug Penicillins/ Hives Unknown [facility] Allergy/4160 [id number]([facility] [address]176(SNOMED XNORM) Repository CT) 03/09/2018 Drug aspirin/F006 Hives Unknown [facility] Allergy/4160 156870([facility] [address](SNOMED M) Repository CT) 03/09/2018 Drug naproxen/F00 KIDNEY DISEASE SV [facility] Allergy/4160 6198718([facility] [address](SNOMED RM) Repository CT) 03/09/2018 Drug latex/Y02341 Hives Unknown [facility] Allergy/4160 8921([facility] 57118(SNOMED Repository CT) ENCOUNTERS ENCOUNTERS ADMIT/DISCHARGE ACCOUNT NUMBER ADMITTING ENCOUNTER LOCATION SOURCE CLASS 03/10/2018/03/10/20 [id number] Ambulatory [address] ding:SDCRoom Repository : AC02 03/06/2018 [id number] Ambulatory BMSBuilding: Ana BMS.A [facility] Repository 03/04/2018/03/04/20 [id number] Ambulatory [address] ding:ENRoom: Repository -A 02/26/2018 [id number] Ambulatory [facility] ding:EN Repository 02/26/2018/02/27/20 [id number] Ambulatory [address] ding:ENRoom: Repository AC05 02/19/2018 [id number] Ambulatory BMSBuilding: [facility] Repository 02/19/2018/02/20/20 [id number] Ambulatory [address] ding:XU5IEUU Repository oom: MS319 02/17/2018 [id number] Ambulatory [facility] ding:SDC Repository 02/08/2018 [id number] Ambulatory BMSBuilding: [facility] Repository 02/05/2018/02/06/20 [id number] Ambulatory [address] ding:SDCRoom Repository : AC16 02/02/2018 [id number] Ambulatory [facility] ding:MEDOUTP Repository 01/29/2018 [id number] Ambulatory [facility] ding:SDC Repository 01/21/2018 [id number] Gerson Elizondo Inpatient [place] [facility] ding:TCURoom Repository : MLL41Cwx: 1 01/21/2018 [id number] Gerson Elizondo Ambulatory BMSBuilding: [place] Chi BMS.CF[facility] Repository 01/21/2018 [id number] Mikhail, Gerson Ambulatory BMSBuilding: Ana Chi BMS.CF.[facility] Repository 01/21/2018 [id number] Mikhail, Gerson Ambulatory BMSBuilding: [place] Chi BMS.CF.[facility] Repository 01/17/2018 [id number] Ambulatory BMSBuilding: [place] [facility] Repository 01/16/2018/01/22/20 [id number] Agyepong, Inpatient [place] [address] ding:PCURoom Repository : APA297Dhi: 1 01/16/2018 [id number] Agyepong, Ambulatory BMSBuilding: [place] Gran[place] BMS.[facility] Repository 01/16/2018 [id number] Agyepong, Ambulatory BMSBuilding: [place] BMS.[facility] Repository 01/16/2018 [id number] Agyepong, Ambulatory BMSBuilding: [place] BMS.[facility] Repository 01/16/2018 [id number] Agyepong, Ambulatory BMSBuilding: [place] BMS.[facility] Repository 01/16/2018 [id number] Agyepong, Ambulatory BMSBuilding: [place] BMS.[facility] Repository 01/16/2018 [id number] Agyepong, Ambulatory BMSBuilding: [place] BMS.[facility] Repository 01/16/2018/01/22/20 [id number] Ambulatory BMSBuilding: Ana [address] [place] [address] Repository 01/13/2018/01/15/20 [id number] DAVEY SKINNER, Inpatient ABuilding:AYANNA GARCIA Encounter [facility]: [place] [address]17[address]Bed: [facility] Repository 01/13/2018 [id number] Ambulatory ABuilding:AYANNA Tripathi 5 [facility] Repository 01/13/2018/01/14/20 [id number] Emergency [address] ding:ED Repository 01/01/2018/01/02/20 [id number] Ambulatory BMSBuilding: [place] 18 BMS.[facility] Repository 12/25/2017 [id number] Ambulatory [facility] ding:MEDOUTP Repository 12/15/2017/12/16/19 [id number] Ambulatory ABuilding:CAMERON Mackenzie URoom: Health 0102Bed: [facility] Repository 12/09/2017 [id number] Ambulatory [facility] ding:WC Repository 12/02/2017/12/10/19 [id number] MICAH SKINNER., Inpatient ABuilding:ME Juma Mackenzie MD. YING Holm Encounter 5SRoom: Health 5677Bed: A [facility] Repository 11/18/2017/12/03/19 [id number] MICAH SKINNER., Inpatient BBuilding:MS Juma Holm Encounter URRoom: Health 0235Bed: S [facility] Repository 11/05/2017/11/19/19 [id number] LUIS SKINNER, Inpatient ABuilding:AYANNA Escoto Encounter 5Room: Health 5514Bed: A [facility] Repository 11/05/2017/11/06/19 [id number] Emergency [place] [address] ding:ED Repository 10/31/2017/11/29/19 [id number] Ambulatory [place] ding:WC Repository 10/24/2017/10/29/19 [id number] Ambulatory Ana[address] ding:WC Repository 10/23/2017 [id number] [facility] Repository 09/26/2017/09/28/19 [id number] Ambulatory [place] ding:WC Repository 09/01/2017/09/02/19 [id number] Ambulatory [place] ding:PT Repository 08/19/2017/08/20/19 [id number] Ambulatory BMSBuilding: [place] 18 [facility] Repository 08/15/2017/08/29/19 [id number] Ambulatory [place] ding:WC Repository 08/12/2017 [id number] Ambulatory [facility] ding:CVS Repository 07/22/2017/07/29/19 [id number] Ambulatory [place] 18 [facility] ding:WC Repository 06/24/2017/06/29/19 [id number] Ambulatory [place] 18 [facility] ding:WC Repository 06/24/2017/06/25/19 [id number] Ambulatory BMSBuilding: [place] 18 [facility]MS[facility] Repository 06/10/2017 [id number] Ambulatory Ana Ana [facility] ding:LABSPEC Repository 06/09/2017 [id number] Ambulatory [place] [facility] ding:LAB Repository 05/29/2017 [id number] Ambulatory Ana Ana [facility] ding:LAB Repository 05/27/2017/05/27/19 [id number] Ambulatory BMSBuilding: [place] 18 [facility]MS.[facility] Repository 05/11/2017 [id number] Ambulatory [place] [facility] ding:WC Repository 05/06/2017 [id number] Ambulatory [place] Ana [facility] ding:MTLAB Repository 04/22/2017/04/30/19 [id number] Ambulatory Ana [place] 18 [facility] ding:WC Repository 03/18/2017/03/30/20 [id number] Ambulatory [place] 17 [facility] ding:WC Repository PAYERS PAYERS ENCOUNTER GUARANTOR PAYER SUBSCRIBER SOURCE 03/10/2018 JUAN Primary JUAN [place] [id number] Insurance:MEDICARE TOMASSETTIDOB: [facility] DRLOT PART A [facility] [id number] Number: Repository [address]Uga: ([phone] [id number] [phone] () Date:2018-03-09 03/10/2018 Secondary NOT GIVENUNK [place] Insurance:SELF PAY [facility] Number: Effective Repository Date:2018-03-09 03/06/2018 JUAN Primary JUAN [place] [id number] Insurance:MEDICARE TOMASSETTIDOB: [facility] DRLOT PART A [facility] [id number] Number: Repository [address]Rpd: 330 [id number] [phone] () Date:2018-03-06 03/06/2018 Secondary NOT GIVENUNK [place] Insurance:SELF PAY [facility] Number: Effective Repository Date:2018-03-06 03/04/2018 JUAN Primary JUAN [place] [id number] Insurance:MEDICARE TOMASSETTIDOB: [facility] ELISE DRLOT PART A [facility] [id number] Number: Repository [address]Zur: 330 [id number] [phone] () Date:2018-02-26 03/04/2018 Secondary NOT GIVENUNK [place] Insurance:SELF PAY [facility] Number: Effective Repository Date:2018-02-26 02/26/2018 JUAN Primary JUAN [place] [id number] Insurance:MEDICARE TOMASSETTIDOB: [facility] ELISE DRLOT PART A [facility] [id number] Number: Repository [address]Jmz: 330 [id number] [phone] () Date:2018-02-25 02/26/2018 Secondary NOT GIVENUNK [place] Insurance:SELF PAY [facility] Number: Effective Repository Date:2018-02-25 02/26/2018 JUAN Primary JUAN [place] [id number] Insurance:MEDICARE TOMASSETTIDOB: [facility] ELISE DRAMRIT PART A [facility] [id number], [place] Number: Repository [address]Vlo: 330 [id number] [phone] () Date:2018-02-18 02/26/2018 Secondary NOT GIVENUNK [place] Insurance:SELF PAY [facility] Number: Effective Repository Date:2018-02-18 02/19/2018 JUAN Primary JUAN [place] [id number] Insurance:MEDICARE TOMASSETTIDOB: [facility] ELISE DRLOT PART A [facility] [id number] [place] Number: Repository [address]Ycs: 330 [id number] [phone] () Date:2018-02-19 02/19/2018 Secondary NOT GIVENUNK [place] Insurance:SELF PAY [facility] Number: Effective Repository Date:2018-02-19 02/19/2018 JUAN Primary JUAN [place] [id number] Insurance:MEDICARE TOMASSETTIDOB: Community ELISE DRLOT PART A [facility] [id number] Number: Repository [address]Bek: 330 [id number] [phone] () Date:2018-02-19 02/19/2018 Secondary NOT GIVENUNK [place] Insurance:SELF PAY [facility] Number: Effective Repository Date:2018-02-19 02/17/2018 JUAN Primary JUAN [place] [id number] Insurance:MEDICARE TOMASSETTIDOB: Community ELISE DRLOT PART A [facility] [id number] Number: Repository [address]Ihu: 330 [id number] [phone] () Date:2018-02-17 02/17/2018 Secondary NOT GIVENUNK [place] Insurance:SELF PAY [facility] Number: Effective Repository Date:2018-02-17 02/08/2018 JUAN Primary JUAN [place] [id number] Insurance:MEDICARE TOMASSETTIDOB: Community ELISE DRLOT PART A [facility] [id number] Number: Repository [address]Plb: 330 [id number] [phone] () Date:2018-02-08 02/08/2018 Secondary NOT GIVENUNK [place] Insurance:SELF PAY [facility] Number: Effective Repository Date:2018-02-08 02/05/2018 JUAN Primary JUAN [place] [id number] Insurance:MEDICARE TOMASSETTIDOB: Community ELISE DRLOT PART A [facility] [id number] Number: Repository [address]Dtk: 330 [id number] [phone] () Date:2018-01-30 02/05/2018 Secondary NOT GIVENUNK [place] Insurance:SELF PAY [facility] Number: Effective Repository Date:2018-01-30 02/02/2018 JUAN Primary JUAN [place] [id number] Insurance:MEDICARE TOMASSETTIDOB: Community ELISE DRAMRIT PART A [facility] [id number] Number: Repository [address]Rtu: 330 [id number] [phone] () Date:2018-02-02 02/02/2018 Secondary JUAN [place] Insurance:MEDICAIDPol TOMASSETTIDOB: [facility] Number: [id number] Hospital [id number] Repository Date:2018-02-02 02/02/2018 Tertiary NOT GIVENUNK [place] Insurance:SELF PAY [facility] Number: Effective Repository Date:2018-02-02 01/29/2018 JUAN Primary JUAN [place] [id number] Insurance:MEDICARE TOMASSETTIDOB: Community ELISE DRAMRIT PART A [facility] [id number] [place] Number: Repository [address]Zkz: 330 [id number] [phone] () Date:2018-01-27 01/29/2018 Secondary NOT GIVENUNK [place] Insurance:SELF PAY [facility] Number: Effective Repository Date:2018-01-27 01/21/2018 JUAN Primary JUAN [place] [id number] Insurance:MEDICARE TOMASSETTIDOB: Community ELISE DRAMRIT PART A [facility] [id number] [place] Number: Repository [address]Bni: 330 [id number] [phone] () Date:2018-01-21 01/21/2018 Secondary NOT GIVENUNK [place] Insurance:SELF PAY [facility] Number: Effective Repository Date:2018-01-21 01/21/2018 JUAN Primary JUAN [place] [id number] Insurance:MEDICARE TOMASSETTIDOB: Community ELISE DRLOT PART A [facility] [id number] Number: Repository [address]Ike: 330 [id number] [phone] () Date:2018-01-21 01/21/2018 Secondary NOT GIVENUNK [place] Insurance:SELF PAY [facility] Number: Effective Repository Date:2018-01-21 01/21/2018 JUAN Primary JUAN [place] [id number] Insurance:MEDICARE TOMASSETTIDOB: [facility] ELISE LUCIA PART A [facility] [id number] Number: Repository [address]Fjk: 330 [id number] [phone] () Date:2018-01-21 01/21/2018 Secondary NOT GIVENUNK [place] Insurance:SELF PAY [facility] Number: Effective Repository Date:2018-01-21 01/21/2018 JUAN Primary JUAN [place] [id number] Insurance:MEDICARE [facility]IDOB[facility] [id number] Number: Repository [address]Isu: 330 [id number] [phone] () Date:2018-01-21 01/21/2018 Secondary NOT GIVENUNK [place] Insurance:SELF PAY [facility] Number: Effective Repository Date:2018-01-21 01/17/2018 JUAN Primary JUAN [place] [id number] Insurance:MEDICARE TOMASSETTIDOB: [facility] ELISE MYERS PART A [facility] [id number] Number: Repository [address]Pwz: 330 [id number] [phone] () Date:2018-01-16 01/17/2018 Secondary JUAN [place] Insurance:MEDICAIDPol TOMASSETTIDOB: [facility] Number: [id number] Hospital [id number] Repository Date:2018-01-16 01/17/2018 Tertiary NOT GIVENUNK [place] Insurance:SELF PAY [facility] Number: Effective Repository Date:2018-01-17 01/16/2018 JUAN Primary JUAN [place] [id number] Insurance:MEDICARE TOMASSETTIDOB: Community ELISE DRAMRIT PART A [facility] [id number] Number: Repository [address]Lif: 330 [id number] [phone] () Date:2018-01-16 01/16/2018 Secondary JUAN [place] Insurance:MEDICAIDPol TOMASSETTIDOB: [facility] icy Number: [id number] Hospital [id number] Repository Date:2018-01-16 01/16/2018 Tertiary NOT GIVENUNK [place] Insurance:SELF PAY [facility] Number: Effective Repository Date:2018-01-16 01/16/2018 JUAN Primary JUAN [place] [id number] Insurance:MEDICARE TOMASSETTIDOB: [facility] ELISE MYERS PART A [facility] [id number] [place] Number: Repository [address]Umi: 330 [id number] [phone] () Date:2018-01-16 01/16/2018 Secondary JUAN [place] Insurance:MEDICAIDPol TOMASSETTIDOB: [facility] Number: [id number] Hospital [id number] Repository Date:2018-01-16 01/16/2018 Tertiary NOT GIVENUNK [place] Insurance:SELF PAY [facility] Number: Effective Repository Date:2018-01-16 01/16/2018 JUAN Primary JUAN [place] [id number] Insurance:MEDICARE TOMASSETTIDOB: [facility] ELISE MYERS PART A [facility] [id number] Number: Repository [address]Img: 330 [id number] [phone] () Date:2018-01-16 01/16/2018 Secondary JUAN [place] Insurance:MEDICAIDPol TOMASSETTIDOB: [facility] ic Number: [id number] Hospital [id number] Repository Date:2018-01-16 01/16/2018 Tertiary NOT GIVENUNK [place] Insurance:SELF PAY [facility] Number: Effective Repository Date:2018-01-16 01/16/2018 JUAN Primary JUAN [place] [id number] Insurance:MEDICARE TOMASSETTIDOB: [facility] ELISE MYERS PART A [facility] [id number] Number: Repository [address]Opd: 330 [id number] [phone] () Date:2018-01-16 01/16/2018 Secondary JUAN [place] Insurance:MEDICAIDPol TOMASSETTIDOB: [facility] icy Number: [id number] Hospital [id number] Repository Date:2018-01-16 01/16/2018 Tertiary NOT GIVENUNK [place] Insurance:SELF PAY [facility] Number: Effective Repository Date:2018-01-16 01/16/2018 JUAN Primary JUAN [place] [id number] Insurance:MEDICARE TOMASSETTIDOB: [facility] ELISE MYERS PART A [facility] [id number] Number: Repository [address]Rya: 330 [id number] [phone] () Date:2018-01-16 01/16/2018 Secondary JUAN [place] Insurance:MEDICAIDPol TOMASSETTIDOB: [facility] ic Number: [id number] Hospital [id number] Repository Date:2018-01-16 01/16/2018 Tertiary NOT GIVENUNK [place] Insurance:SELF PAY [facility] Number: Effective Repository Date:2018-01-16 01/16/2018 JUAN Primary JUAN [place] [id number] Insurance:MEDICARE TOMASSETTIDOB: [facility] ELISE MYERS PART A [facility] [id number], [place] Number: Repository [address]Sqb: 330 [id number] [phone] () Date:2018-01-16 01/16/2018 Secondary JUAN [place] Insurance:MEDICAIDPol TOMASSETTIDOB: [facility] ic Number: [id number] Hospital [id number] Repository Date:2018-01-16 01/16/2018 Tertiary NOT GIVENUNK [place] Insurance:SELF PAY [facility] Number: Effective Repository Date:2018-01-16 01/16/2018 JUAN Primary JUAN [place] [id number] Insurance:MEDICARE TOMASSETTIDOB: [facility] ELISE MYERS PART A [facility] [id number] Number: Repository [address]Dao: 330 [id number] [phone] () Date:2018-01-16 01/16/2018 Secondary JUAN [place] Insurance:MEDICAIDPol TOMASSETTIDOB: [facility] icy Number: [id number] Hospital [id number] Repository Date:2018-01-16 01/16/2018 Tertiary NOT GIVENUNK [place] Insurance:SELF PAY [facility] Number: Effective Repository Date:2018-01-16 01/16/2018 JUAN Primary JUAN [place] [id number] Insurance:MEDICARE TOMASSETTIDOB: [facility] ELISE MYERS PART A [facility] [id number] Number: Repository [address]Nia: 330 [id number] [phone] () Date:2018-01-16 01/16/2018 Secondary JUAN [place] Insurance:MEDICAIDPol TOMASSETTIDOB: [facility] icy Number: [id number] Hospital [id number] Repository Date:2018-01-16 01/16/2018 Tertiary NOT GIVENUNK [place] Insurance:SELF PAY [facility] Number: Effective Repository Date:2018-01-16 01/13/2018 [facility] TOMASSETTIDOB: Insurance:MEDICARE TOMASSETTIDOB: [facility] PART APolicy Number: [id number] [id number], [place] Date:2018-01-[address] [place] [address]Qit: [phone]: () [facility] [phone] [facility] [address] ()Tel: (242) [phone], [place] [phone] (WP) [phone]: 01/13/2018 [facility] Insurance:MEDICARE TOMASSETTIDOB: Foundation PART BPolicy Number: [id number] Repository [id number] Date:2018-01-[address], [place] [id number] [phone]: (330) Name:[facility] [phone] Administrators LLCPO (HP)Tel: (000) [address]Bhkmfshii, [phone] (WP) [place] [address]BM: 01/13/2018 [facility] TOMASSETTIDOB: Insurance:MEDICARE TOMASSETTIDOB: [facility] PART APolicy Number: [id number] Repository [id number] [place] [address] Date:2016-10-[address] [place] [address]Gzo: [phone] [phone]: (HP) Name:[facility] Code [phone] [address] (HP)Tel: (000) [phone], [place] [address] ([place]) [address]HN: 01/13/2018 [facility] Insurance:MEDICARE TOMASSETTIDOB: Foundation PART BPolicy Number: [id number] Repository [id number] [address] Date:2018-01-13 [place], [place] [id number] [address]Ivi: (330) Name:[facility] [phone] Administrators LLCPO (HP)Tel: (000) [address]Synbwhqce, 000-0000 (WP) [place] [address]BJ: 01/13/2018 JUAN Primary JUAN [place] [id number] Insurance:MEDICARE TOMASSETTIDOB: [facility] ELISE MYERS PART A BPolicy [id number] Number: Repository [address]Ocf: (330) [id number] [phone] () Date:2018-01-13 01/13/2018 Secondary [place] [facility] T[facility]ETTIDOB: Community y Number: Effective [id number] Hospital Date:2018-01-13 Repository 01/13/2018 Tertiary NOT GIVENUNK [place] Insurance:SELF PAY [facility] Number: Effective Repository Date:2018-01-13 01/01/2018 JUAN Primary JUAN [place] [id number] Insurance:MEDICARE TOMASSETTIDOB: [facility] ELISE MYERS PART A [facility] [id number] Number: Repository [address]Vlm: 330 [id number] [phone] () Date:2017-12-31 01/01/2018 Secondary NOT GIVENUNK [place] Insurance:SELF PAY [facility] Number: Effective Repository Date:2018-01-01 12/25/2017 JUAN Primary JUAN [place] [id number] Insurance:MEDICARE TOMASSETTIDOB: [facility] ELISE MYERS PART A [facility] [id number] Number: Repository [id number]: 330 [id number] [phone] () Date:2017-12-24 12/25/2017 Secondary NOT GIVENUNK [place] Insurance:SELF PAY [facility] Number: Effective Repository Date:2017-12-24 12/15/2017 [facility] TOMASSETTIDOB: Insurance:MEDICARE TOMASSETTIDOB: [facility] PART [facility] Number: [id number] [id number] [place] [address] Date:2017-12-[address] [place] [address]Grn: (485) [id number] 81634Zvg: () Name:[facility] [phone] Administrators LLCPO ()Tel: 000) [address] [address]Qpxqbdixf, 000-0000 () [place] [address]LV: 12/09/2017 JUAN Primary JUAN [place] [id number] Insurance:MEDICARE TOMASSETTIDOB: [facility] ELISE MYERS PART A [facility] [id number] Number: Repository [address]Gto: 330 [id number] [phone] () Date:2017-06-10 12/09/2017 Secondary NOT GIVENUNK [place] Insurance:SELF PAY [facility] Number: Effective Repository Date:2017-11-29 12/02/2017 [facility] TOMASSETTIDOB: Insurance:MEDICARE TOMASSETTIDOB: [facility] PART APolicy Number: [id number] Repository [address]ISE [address] [id number] 0 [address] [place] [address] Date:2017-12-[address] [place] [address] 90093Yqv: (080) [id number] [phone]: () [facility] Code [phone] [address] ()Tel: (000) [phone], [place] 000-[address] ([place]) [address]JN: 12/02/2017 [facility] Insurance:MEDICARE TOMASSETTIDOB: Foundation PART BPolicy Number: [id number] Repository [id number] 0 [address] AMRIT Date:2017-12-[address] [place] [address] [id number] 840[address]Bfq: (330) Name:[facility] [phone] Administrators LLCPO ()Tel: (000) [address] [address]Refrzrmak, 000-0000 (WP) [place] [address]CJ: 11/18/2017 [facility] TOMASSETTIDOB: Insurance:MEDICARE TOMASSETTIDOB: [facility] PART APolicy Number: [id number] Repository ELISE [address]ARCUS [id number] 0 [address] [place] [address], [place] Date:2017-11-[place], [place] [address]Rel: (509) [id number] 316[address]Geb: (HP) Name:[facility] Code [phone] [address] (HP)Tel: (000) [phone], [place] 000-0000 ([place]) [address]NN: 11/18/2017 [facility] Insurance:MEDICARE TOMASSETTIDOB: [facility] PART BPolicy Number: [id number] Repository [id number] [address] Date:2017[place] [id number] [address]Mcn: (330) Name:[facility] [phone] Administrators LLCPO (HP)Tel: (000) [address] [address]Bjhwcjntm, 000-0000 (WP) [place] [address]RD: 11/05/2017 [facility] PART APolicy Number: [id number] [address], [place] Date:2017-11-05[place], [place] [address]Anf: (330 [id number] 812[address]Kmh: (HP) Name:MMail Code [phone] 600[address] Box (HP)Tel: (000) [phone], [place] 000-0000 ([place]) [address]EU: 11/05/2017 [facility] Insurance:MEDICARE TOMASSETTIDOB: Foundation PART BPolicy Number: [id number] Repository [id number] [address] Date:2017-11-05[facility] [place] [id number] [address]Apz: (330) Name:[facility] [phone] Administrators LLCPO (HP)Tel: (000) [address] [address]Pxpvtcyot, 000-0000 (WP) [place] [address]KX: 11/05/2017 JUAN Primary [place]UAN [place] [id number] Insurance:MEDICARE TOMASSETTIDOB: Community ELISE DRAMRIT PART A [facility] [id number] Number: Repository [id number]: 330 [id number] [phone] () Date:2017-11-05 11/05/2017 Secondary NOT GIVENUNK [place] Insurance:SELF PAY [facility] Number: Effective Repository Date:2017-11-05 10/31/2017 JUAN Primary JUAN [place] [id number] Insurance:MEDICARE TOMASSETTIDOB: [facility] ELISE DRLOT PART A [facility] [id number] Number: Repository [id number]: 330 [id number] [phone] () Date:2017-06-10 10/31/2017 Secondary NOT GIVENUNK [place] Insurance:SELF PAY [facility] Number: Effective Repository Date:2017-10-29 10/24/2017 JUAN Primary [place]UAN [place] [id number] Insurance:MEDICARE TOMASSETTIDOB: [facility] ELISE DRLOT PART A [facility] [id number] [place] Number: Repository [address]Ihz: 330 [id number] [phone] () Date:2017-06-10 10/24/2017 Secondary NOT GIVENUNK [place] Insurance:SELF PAY [facility] Number: Effective Repository Date:2017-09-28 10/23/2017 JUAN Primary JUAN [place] [id number] Insurance:MEDICARE TOMASSETTIDOB: [facility] ELISE DRLOT PART A [facility] [id number] Number: Repository [address]Jnm: 330 [id number] [phone] () Date:2017-10-23 10/23/2017 Secondary NOT GIV[place]UNK [place] Insurance:SELF PAY [facility] Number: Effective Repository Date:2017-10-23 09/26/2017 JUAN Primary [place]AN [place] [id number] Insurance:MEDICARE TOMASSETTIDOB: Community ELISE DRLOT PART A [facility] [id number] Number: Repository [id number]: 330 [id number] [phone] () Date:2017-06-10 09/26/2017 Secondary NOT GIVENUNK [place] Insurance:SELF PAY [facility] Number: Effective Repository Date:2017-08-29 09/01/2017 JUAN Primary [place] [id number] Insurance:MEDICARE TOMASSETTIDOB: Community ELISE DRLOT PART A [facility] [id number] Number: Repository [address]Ivs: 330 [id number] [phone] () Date:2006-09-28 09/01/2017 Secondary NOT GIVENUNK [place] Insurance:SELF PAY [facility] Number: Effective Repository Date:2017-08-26 08/19/2017 KANDY JUAN A Primary KANDY JUAN A [place] [id number] Insurance:MEDICARE TOMASSETTIDOB: [facility] ELISE DRLOT PART A [facility] [id number] Number: Repository [address]Ndk: 330 [id number] [phone] () Date:2017-06-24 08/19/2017 Secondary NOT GIVENUNK [place] Insurance:SELF PAY [facility] Number: Effective Repository Date:2017-08-18 08/15/2017 KANDY JUAN A Primary KANDY JUAN A [place] [id number] Insurance:MEDICARE TOMASSETTIDOB: Community ELISE DRLOT PART A [facility] [id number] Number: Repository [address]Mak: 330 [id number] [phone] () Date:2017-06-10 08/15/2017 Secondary [place]K [place] Insurance:SELF PAY [facility] Number: Effective Repository Date:2017-07-29 08/12/2017 KANDY A Primary KANDY A [place] [id number] Insurance:MEDICARE TOMASSETTIDOB: Community ELISE DRLOT PART A [facility] [id number] Number: Repository [address]Mjq: 330 [id number] [phone] () Date:2017-08-04 08/12/2017 Secondary [place]K [place] Insurance:SELF PAY [facility] Number: Effective Repository Date:2017-08-04 07/22/2017 KANDY A Primary KANDY A [place] [id number] Insurance:MEDICARE TOMASSETTIDOB: Community ELISE DRLOT PART A [facility] [id number] Number: Repository [address]Npc: 330 [id number] [phone] () Date:2017-06-10 07/22/2017 Secondary [place]K [place] Insurance:SELF PAY [facility] Number: Effective Repository Date:2017-06-29 06/24/2017 KANDY A Primary KANDY A [place] [id number] Insurance:MEDICARE TOMASSETTIDOB: Community ELISE DRLOT PART A [facility] [id number] Number: Repository [address]Ipm: 330 [id number] [phone] () Date:2017-06-10 06/24/2017 Secondary NOT GIVENUNK [place] Insurance:SELF PAY [facility] Number: Effective Repository Date:2017-06-10 06/24/2017 KANDY A Primary KANDY A [place] [id number] Insurance:MEDICARE TOMASSETTIDOB: Community ELISE DRLOT PART A [facility] [id number] Number: Repository [address]Wzm: 330 [id number] [phone] () Date:2017-05-27 06/24/2017 Secondary NOT GIVENUNK [place] Insurance:SELF PAY [facility] Number: Effective Repository Date:2017-06-24 06/10/2017 KANDY A Primary KANDY A [place] [id number] Insurance:MEDICARE TOMASSETTIDOB: Community ELISE DRLOT PART A [facility] [id number] Number: Repository [address]Zhy: 330 [id number] [phone] () Date:2017-06-10 06/10/2017 Secondary NOT GIVENUNK [place] Insurance:SELF PAY [facility] Number: Effective Repository Date:2017-06-10 06/09/2017 KANDY A Primary KANDY A [place] [id number] Insurance:MEDICARE TOMASSETTIDOB: Community ELISE DRLOT PART A [facility] [id number] Number: Repository [address]Qpl: 330 [id number] [phone] () Date:2017-06-09 06/09/2017 Secondary NOT GIVENUNK [place] Insurance:SELF PAY [facility] Number: Effective Repository Date:2017-06-09 05/29/2017 KANDY A Primary KANDY A [place] [id number] Insurance:MEDICARE TOMASSETTIDOB: Community ELISE DRLOT PART A [facility] [id number] Number: Repository [address]Esd: 330 [id number] [phone] () Date:2017-05-29 05/29/2017 Secondary NOT GIVENUNK [place] Insurance:SELF PAY [facility] Number: Effective Repository Date:2017-05-29 05/27/2017 KANDY A Primary KANDY A [place] [id number] Insurance:MEDICARE TOMASSETTIDOB: Community ELISE DRLOT PART A [facility] [id number] Number: Repository [address]Elp: 330 [id number] [phone] () Date:2017-03-01 05/27/2017 Secondary NOT GIVENUNK [place] Insurance:SELF PAY [facility] Number: Effective Repository Date:2017-03-01 05/11/2017 Kandy A Primary Kandy A [place] [id number] Insurance:MEDICARE TomassettiDOB: Community [place] PART A [facility] [id number] Number: Repository [address]Ang: 330 [id number] [phone] () Date:2007-07-30 05/11/2017 Secondary [place]UNK [place] Insurance:SELF PAY [facility] Number: Effective Repository Date:2017-05-01 05/06/2017 Kandy A Primary Kandy A [place] [id number] Insurance:MEDICARE TomassettiDOB: Community [place] Dr[place] PART A [facility] [id number] Number: Repository [address]Agv: 330 [id number] [phone] () Date:2017-05-06 05/06/2017 Secondary [place]UNK [place] Insurance:SELF PAY [facility] Number: Effective Repository Date:2017-05-06 04/22/2017 Kandy A Primary Kandy A [place] [id number] Insurance:MEDICARE TomassettiDOB: [facility] [place] Dr[place] PART A [facility] [id number] Number: Repository [id number]: 330 [id number] [phone] () Date:2007-07-30 04/22/2017 Secondary NOT GIVENUNK [place] Insurance:SELF PAY [facility] Number: Effective Repository Date:2017-03-31 03/18/2017 Kandy A Primary Kandy A [place] [id number] Insurance:MEDICARE TomassettiDOB: Community Elise DrLot PART A [facility] [id number] Number: Repository [address]Bdo: 330 [id number] [phone] () Date:2007-07-30 03/18/2017 Secondary [place]UNK [place] Insurance:SELF PAY [facility] Number: Effective Repository Date:2017-03-02
== END 2018-02-26 15:55 | disposition skilled nursing facility (03) ==
LOC: EN 06:07 → AC 06:07
PROVIDERS: Family Provider Internal Medicine; PCP Internal Medicine; Referring Provider Podiatrist Foot & Ankle Surgery; Visit Provider Podiatrist Foot & Ankle Surgery
PROC: (CPT 20693; principal; 2018-02-26 07:00)
DX: M86.162 Other acute osteomyelitis, left tibia and fibula (principal); S82.892B Other fracture of left lower leg, initial encounter for open fracture type I or II; X58.XXXA Exposure to other specified factors, initial encounter; D64.9 Anemia, unspecified; E55.9 Vitamin D deficiency, unspecified; Z87.891 Personal history of nicotine dependence; E78.00 Pure hypercholesterolemia, unspecified; N18.3 Chronic kidney disease, stage 3 (moderate); E11.22 Type 2 diabetes mellitus with diabetic chronic kidney disease; F41.9 Anxiety disorder, unspecified; F32.9 Major depressive disorder, single episode, unspecified; Z79.899 Other long term (current) drug therapy; I12.9 Hypertensive chronic kidney disease with stage 1 through stage 4 chronic kidney disease, or unspecified chronic kidney disease; J44.9 Chronic obstructive pulmonary disease, unspecified; E11.51 Type 2 diabetes mellitus with diabetic peripheral angiopathy without gangrene; G25.81 Restless legs syndrome; K21.9 Gastro-esophageal reflux disease without esophagitis
CPT/HCPCS: 01480; 20693; 27870; 73590; 73600; 73610; 73630; 76000; 87015; 87070; 87075; 87077; 87102; 87116; 87186; 87205; 87206; 88304; 88305; 88311; C1713; J7120; A4216

== ENCOUNTER 2018-03-04 10:27 | Day surgery (SDC) | payer MEDICARE, MEDICAID, SELFPAY ==
[2018-02-19 15:38] VITALS: BMI 39.0
[2018-02-26 06:45] VITALS: BMI 35.5
[2018-03-04 10:32] VITALS: BP 159/74; PULSE 97; RESP 18; TEMP 36.9; O2SAT 100; BMI 37.1
[2018-03-04 10:51] LABS: Bedside Glucose 93 mg/dL (70-110)
--- NOTE | 2018-03-04 10:55 | EKG12_ITS ---
Test Reason : CP Blood Pressure : / mmHG Vent. Rate : 101 BPM Atrial Rate : 101 BPM P-R Int : 150 ms QRS Dur : 096 ms QT Int : 372 ms P-R-T Axes : 071 037 016 degrees QTc Int : 482 ms Sinus tachycardia with occasional Premature ventricular complexes Nonspecific ST abnormality Abnormal ECG When compared with ECG of 19-FEB-2018 20:52, Premature ventricular complexes are now Present Confirmed by SIMIN SKINNER, ERIN ([id number]), news videotape editor BUTCH PATTERSON ([id number]) on 03/06/2018 3:18:50 PM Referred By: Shimon Ty Confirmed By:ERIN DUVAL MD
--- NOTE | 2018-03-04 11:00 | IMM_PTH ---
PATIENT: ALEAH BARKER LOC: EN U#:[id number] AGE/SX: 58/F ROOM: RE03/04/[address]: Dr. Shimon Ty MD : [id number] BED: DIS: 03/04/2018 SPEC #: [id number] RECD: 03/05/18 09:09 STATUS: ENRICO REPawan #: [id number] ELIAS: 03/04/18 11:[address]: Shimon Ty DEPT: IMMUNOHISTOCHEMISTRY RECD BY: April Snyder ENTERED: 03/05/18 09:10 SP TYPE: IMMUNO OTHR DR: Dr. Pia Newton MD Tissues: A - Stomach, NOS Procedures: H Pylori (initial) PHYSICIAN & INSTITUTION [place] [phone] SPECIMEN INFORMATION: Tissue Source: A - Antrum biopsy Clinical Info: Anemia, heme-positive stools, melena Specimen Number: [id number] CPT code: 46220 METHODOLOGY: Deparaffinized sections of prefer/formalin-fixed tissue or PAP/DQ stained slides are incubated with monoclonal/polyclonal antibodies/oligonucleotide probes. Localization is made via biotin free immunoperoxidase method. Appropriate controls are performed and reacted as expected. Results on target cell population are indicated in the following table: RESULTS: ANTIBODY / CLONE RESULT Block A H Pylori (polyclonal) negative These tests were developed and their performance characteristics determined by [facility]. They may not have been cleared or approved by the U.S. Food and Drug Administration. The FDA has determined that such clearance or approval is not necessary. INTERPRETATION: A. Antrum, biopsy: Negative for Helicobacter pylori organisms. SJ:jason 03/09/18
--- NOTE | 2018-03-04 11:00 | COLBX_PTH ---
PATIENT: ALEAH BARKER LOC: EN U#:[id number] AGE/SX: 58/F ROOM: RE03/04/[address]: Dr. Shimon Ty MD : 1960 BED: DIS: 03/04/2018 SPEC #: [id number] RECD: 03/04/18 15:17 STATUS: ENRICO YANA #: [id number] ELIAS: 03/04/18 11:[address]: Shimon Ty DEPT: SURGICAL PATHOLOGY RECD BY: Rick Valero ENTERED: 03/05/18 07:59 SP TYPE: COLON BX OTHR DR: Dr. Pia Newton MD Tissues: A - Gastric mucous membrane B - Esophageal mucous membrane C - Transverse colon Procedures: Special Stain Group II Special Stain Group I Surgery Specimen Level IV GMS Stain (control) Alcian Blue/PAS (control) HEADER OPERATION: [place] [place] DIAGNOSIS: Anemia, heme-positive stools, melena TISSUE SUBMITTED: A - Antrum biopsy for H. pylori and path, B - Distal esophagus biopsy, C - Distal transverse colon polyps MICROSCOPIC DIAGNOSIS A. Antrum, biopsy: Mild gastritis. See microscopic description and comment. B. 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 Acute and chronic inflammation and changes consistent with gastroesophageal reflux disease. Negative for dysplasia. Special stain for fungi is negative for organisms; matched control is appropriate. See comment. C. Distal transverse colon polyp, biopsy: Fragments of tubular adenoma. SJ:jason 03/06/18 COMMENT A. The results of immunohistochemistry for Helicobacter pylori will be reported separately ([id number]). B. Alcian blue/PAS stain with matched control is used in the evaluation of the specimen. MICROSCOPIC DESCRIPTION Slides are reviewed. A. The specimen shows fragments of gastric mucosa with chronic inflammatory cell infiltrates in the lamina propria consisting of lymphocytes and plasma cells, consistent with mild chronic gastritis. GROSS DESCRIPTION A - Received in fixative is one container labeled with the patient's name and designated antrum biopsy for H. pylori and path. The specimen consists of one elongated fragment of light pérez soft tissue that measures 1 x 0.3 x 0.1 cm. The specimen is totally submitted in one cassette. B - Received in fixative is one container labeled with the patient's name and designated distal esophagus biopsy. The specimen consists of multiple irregular fragments of light pérez soft tissue that in aggregate measure 2 x 0.4 x 0.2 cm. The specimen is totally submitted in one cassette. C - Received in fixative is one container labeled with the patient's name and designated distal transverse polyp. The specimen consists of multiple irregular fragments of light pérez soft tissue that in aggregate measure 1.4 x 0.6 x 0.3 cm. The specimen is totally submitted in one cassette. / RY:jason 03/05/18 TC:1 CPT: 84553 x3, 07648, 76879
[2018-03-04 12:18] VITALS: BP 118/68; BP 159/74; PULSE 108; RESP 18; TEMP 36.8; O2SAT 99
[2018-03-04 12:20] VITALS: BP 112/50; BP 159/74; PULSE 107; RESP 16; O2SAT 99
--- NOTE | 2018-03-04 12:22 | OP.ENDO_ITS ---
Patient Name: Kandy Young Procedure Date: 03/04/2018 10:49 AM Date of : 1960 Age: 58 Procedure: Upper GI endoscopy Indications: Iron deficiency anemia secondary to chronic blood loss Providers: Shimon Ty MD Referring MD: Pia Newton Md Medicines: See the Anesthesia note for documentation of the administered medications Complications: No immediate complications. Procedure: Pre-Anesthesia Assessment: - Prior to the procedure, a History and Physical was performed, and patient medications and allergies were reviewed. The patient's tolerance of previous anesthesia was also reviewed. The risks and benefits of the procedure and the sedation options and risks were discussed with the patient. All questions were answered, and informed consent was obtained. Prior Anticoagulants: The patient has taken Lovenox (enoxaparin), last dose was 1 day prior to procedure. ASA Grade Assessment: III - A patient with severe systemic disease. After reviewing the risks and benefits, the patient was deemed in satisfactory condition to undergo the procedure. After obtaining informed consent, the endoscope was passed under direct vision. Throughout the procedure, the patient's blood pressure, pulse, and oxygen saturations were monitored continuously. The gastroscope was introduced through the mouth, and advanced to the second part of duodenum. The upper GI endoscopy was accomplished without difficulty. The patient tolerated the procedure well. Scope In: 11:37:46 AM Scope Out: 11:43:04 AM Total Procedure Duration Time 0 hours 5 minutes 18 seconds Findings: The Z-line was irregular and was found 39 cm from the incisors. LA Grade A (one or more mucosal breaks less than 5 mm, not extending between tops of 2 mucosal folds) esophagitis with no bleeding was found 39 cm from the incisors. Biopsies were taken with a cold forceps for histology. Exudate, sloughing lining noted Diffuse mildly erythematous mucosa without bleeding was found in the gastric antrum. Biopsies were taken with a cold forceps for histology. The examined duodenum was normal. A small hiatal hernia was present. Impression: - Z-line irregular, 39 cm from the incisors. - LA Grade A reflux esophagitis. Biopsied. Small hiatal hernia - Erythematous mucosa in the antrum. Biopsied. - Normal examined duodenum. No evidence for active blood loss Reflux esophagitis with small hiatal hernia and mild chronic gastritis. Patient is on pantoprazole. Await biopsy results for possible belén esophagitis Recommendation: - Resume previous diet. - Continue present medications. - Telephone my office for pathology results in 1 week. - Discharge patient to a fci. Procedure Code(s): --- Professional --- 73600, Esophagogastroduodenoscopy, flexible, transoral; with biopsy, single or multiple Diagnosis Code(s): --- Professional --- K22.8, Other specified diseases of esophagus K21.0, Gastro-esophageal reflux disease with esophagitis K31.89, Other diseases of stomach and duodenum D50.0, Iron deficiency anemia secondary to blood loss (chronic) CPT copyright 2017 [employer]. All rights reserved. The codes documented in this report are preliminary and upon gear room keeper review may be revised to meet current compliance requirements. Shimon Ty MD 03/04/2018 12:21:51 PM This report has been signed electronically. Number of Addenda: 0 Note Initiated On: 03/04/2018 10:49 AM
[2018-03-04 12:25] VITALS: BP 127/66; BP 159/74; PULSE 102; RESP 16; O2SAT 100
--- NOTE | 2018-03-04 12:27 | OP.ENDO_ITS ---
Patient Name: Kandy Young Procedure Date: 03/04/2018 11:46 AM Date of : 1960 Age: 58 Procedure: Colonoscopy Indications: Iron deficiency anemia secondary to chronic blood loss Providers: Shimon Ty MD Referring MD: Pia Newton Md Medicines: See the Anesthesia note for documentation of the administered medications Patient Profile: Last Colonoscopy: date unknown. Last Colonoscopy: more than 10 years ago. Complications: No immediate complications. Procedure: Pre-Anesthesia Assessment: - Prior to the procedure, a History and Physical was performed, and patient medications and allergies were reviewed. The patient's tolerance of previous anesthesia was also reviewed. The risks and benefits of the procedure and the sedation options and risks were discussed with the patient. All questions were answered, and informed consent was obtained. Prior Anticoagulants: The patient has taken Lovenox (enoxaparin), last dose was 1 day prior to procedure. ASA Grade Assessment: III - A patient with severe systemic disease. After reviewing the risks and benefits, the patient was deemed in satisfactory condition to undergo the procedure. After I obtained informed consent, the scope was passed under direct vision. Throughout the procedure, the patient's blood pressure, pulse, and oxygen saturations were monitored continuously. The colonoscope was introduced through the anus and advanced to the cecum, identified by appendiceal orifice and ileocecal valve. The ileocecal valve and the appendiceal orifice were photographed. Scope In: 11:49:23 AM Scope Withdrawal Time 0 hours 14 minutes 3 seconds Scope Out: 12:10:28 PM Total Procedure Duration Time 0 hours 21 minutes 5 seconds Findings: Lax anal tone Hemorrhoids were found on perianal exam. Multiple diverticula were found in the entire colon. Two sessile polyps were found in the distal transverse colon. The polyps were small in size. These polyps were removed with a hot snare. Resection and retrieval were complete. Impression: - Hemorrhoids found on perianal exam. - Diverticulosis in the entire examined colon. - Two small polyps in the distal transverse colon, removed with a hot snare. Resected and retrieved. No evidence for acute or chronic blood loss. No bleeding from polyps Recommendation: - Repeat colonoscopy in 3 years for surveillance based on pathology results. - Telephone my office for pathology results in 1 week. - Continue present medications. Procedure Code(s): --- Professional --- 45090, Colonoscopy, flexible; with removal of tumor(s), polyp(s), or other lesion(s) by snare technique Diagnosis Code(s): --- Professional --- K64.9, Unspecified hemorrhoids D12.3, Benign neoplasm of transverse colon (hepatic flexure or splenic flexure) D50.0, Iron deficiency anemia secondary to blood loss (chronic) K57.30, Diverticulosis of large intestine without perforation or abscess without bleeding CPT copyright 2017 [employer]. All rights reserved. The codes documented in this report are preliminary and upon pool player review may be revised to meet current compliance requirements. Shimon Ty MD 03/04/2018 12:27:48 PM This report has been signed electronically. Number of Addenda: 0 Note Initiated On: 03/04/2018 11:46 AM
[2018-03-04 12:30] VITALS: BP 145/67; BP 159/74; PULSE 99; RESP 18; O2SAT 100
[2018-03-04 12:35] VITALS: BP 159/74; BP 165/71; PULSE 99; RESP 18; TEMP 36.6; O2SAT 100
== END 2018-03-04 12:57 | disposition skilled nursing facility (03) ==
LOC: EN 10:28 → ACINP 10:30
PROVIDERS: Family Provider Internal Medicine; PCP Internal Medicine; Referring Provider Surgery; Visit Provider Surgery
PROC: 0DJD8ZZ Inspection of Lower Intestinal Tract, Via Natural or Artificial Opening Endoscopic (ICD-10-PCS; CPT 45378; principal; 2018-03-04 10:55)
DX: K29.70 Gastritis, unspecified, without bleeding (principal); K44.9 Diaphragmatic hernia without obstruction or gangrene; K22.8 Other specified diseases of esophagus; K21.0 Gastro-esophageal reflux disease with esophagitis; K31.89 Other diseases of stomach and duodenum; D12.3 Benign neoplasm of transverse colon; D50.0 Iron deficiency anemia secondary to blood loss (chronic); K57.30 Diverticulosis of large intestine without perforation or abscess without bleeding; K64.9 Unspecified hemorrhoids; M19.90 Unspecified osteoarthritis, unspecified site; E11.22 Type 2 diabetes mellitus with diabetic chronic kidney disease; I13.10 Hypertensive heart and chronic kidney disease without heart failure, with stage 1 through stage 4 chronic kidney disease, or unspecified chronic kidney disease; N18.3 Chronic kidney disease, stage 3 (moderate); E78.00 Pure hypercholesterolemia, unspecified; M10.9 Gout, unspecified; L93.0 Discoid lupus erythematosus; M06.9 Rheumatoid arthritis, unspecified; L65.9 Nonscarring hair loss, unspecified; B35.1 Tinea unguium; E11.42 Type 2 diabetes mellitus with diabetic polyneuropathy; E11.52 Type 2 diabetes mellitus with diabetic peripheral angiopathy with gangrene; I96 Gangrene, not elsewhere classified; E11.621 Type 2 diabetes mellitus with foot ulcer; L97.519 Non-pressure chronic ulcer of other part of right foot with unspecified severity; E66.9 Obesity, unspecified; Z68.37 Body mass index [BMI] 37.0-37.9, adult; J44.9 Chronic obstructive pulmonary disease, unspecified; G25.81 Restless legs syndrome; Z78.0 Asymptomatic menopausal state; Z86.19 Personal history of other infectious and parasitic diseases; Z79.4 Long term (current) use of insulin; Z79.899 Other long term (current) drug therapy; Z87.891 Personal history of nicotine dependence
CPT/HCPCS: 43239; 45385; 82962; 88305; 88312; 88313; 88342; 93005; J7120; A4216; J1610

== ENCOUNTER 2018-03-10 05:37 | Day surgery (SDC) | payer MEDICARE, MEDICAID, SELFPAY ==
[2018-03-10] VITALS (13 sets, daily range): BP systolic 108–171; BP diastolic 66–82; PULSE 87–101; RESP 16–18; TEMP 36.1–36.7; O2SAT 93–100; BMI 35.5
[2018-03-10 06:11] LABS: Bedside Glucose 137 mg/dL (70-110)
[2018-03-10 07:06] LABS: AST(SGOT) 8 U/L (15-37); Alanine Aminotransfer ALT/SGPT 12 U/L (13-56); Albumin, Serum 2.1 g/dL (3.2-5.0); Alkaline Phosphatase 112 U/L (45-117); Bilirubin, Direct 0.09 mg/dL (0.00-0.30); Globulin 4.9 g/dL (2.2-4.2)
--- NOTE | 2018-03-10 07:10 | RAD_ITS ---
STUDY: X-RAY - LEFT TIBIA AND FIBULA REASON FOR EXAM: Female, 58 years old. ReVision of the hardware overlying the left tibia. TECHNIQUE: Single coned-down intraoperative view(s) of the tibia and fibula were obtained. COMPARISON: None. FINDINGS: External fixation device is seen overlying the tibia. RAD/Tibia & Fibula 2 Views IMPRESSION: Intraoperative imaging provided. External fixation device is seen overlying the tibia. Electronically Signed: Mahesh Olivia MD at 11:04 EST Tel [phone], Service support ,
[2018-03-10 07:47] LABS: Hemoglobin A1c 5.2 % (4.2-6.3)
--- NOTE | 2018-03-10 11:54 | RAD_ITS ---
STUDY: X-RAY - LEFT TIBIA AND FIBULA REASON FOR EXAM: Female, 58 years old. Post external fixator revision. TECHNIQUE: Frontal and lateral view(s) of the tibia and fibula were obtained on 4 films. COMPARISON: Frontal and lateral views of the left tibia and fibula on 4 films March 06, 2018 FINDINGS: Metal hardware of an external fixation device again noted, obscuring detail to varying degree in each view. Comminuted fracture of the distal tibial metaphysis again noted, better visualized on dedicated views of the ankle also done today. Prior resection of the distal fibula/lateral malleolus also again noted. There is moderate lobulated ossific density in the tissues around the distal tibial diaphysis and lateral to the tibiotalar articulation. The proximal tibia and fibula are intact. The improved lateral subluxation and persistent dorsal subluxation of the tibiotalar articulation today is also better seen in the dedicated views of the ankle. Soft tissue swelling present, but improved. Atherosclerotic vascular calcifications again noted. A surgical drain is present in the lateral soft tissue swelling near the ankle. Metal skin cristian seen along the anterior aspect of the ankle on prior study since been removed. RAD/Tibia & Fibula 2 Views IMPRESSION: 1. External fixation device again present. Improved lateral subluxation of the tibiotalar articulation as well as fracture and postsurgical deformities of the distal tibia and fibula are better visualized on dedicated views of the ankle also done today and reported separately. 2. Soft tissue swelling of the left lower leg is improved. Surgical drain is present in the lateral soft tissue swelling at the ankle. Atherosclerotic vascular calcifications again noted. Electronically Signed: Parrish Morillo MD at 13:38 EST , Service support ,
--- NOTE | 2018-03-10 11:55 | RAD_ITS ---
STUDY: X-RAY - LEFT FOOT CLINICAL: Female, 58 years old. Post external fixator revision. TECHNIQUE: 2 view(s) of the foot. COMPARISON: 3 views of the left foot February 26, 2018. FINDINGS: Evaluation of the ankle, hind and midfoot limited due to obscuration by overlapping metal hardware of the external fixation device. Fixation pins connected to the external hardware are again seen passing through the bases of the metatarsals. There is stable cortical defect along the medial aspect of the mid first metatarsal. Normal metatarsophalangeal joint of the great toe. Normal tibial and fibular sesamoid bones. Normal interphalangeal joint of the great toe. Normal phalanges of the great toe. Normal second through fifth metatarsophalangeal joints. Deformity of the fifth proximal phalanx may reflect old healed fracture. Otherwise, normal interphalangeal joints and phalanges of the lesser toes. Mild soft tissue swelling of the foot again suggested. Mild cutaneous irregularity at the site of the fixation pins at the medial lateral aspects of the mid to forefoot. RAD/Foot 2 Views IMPRESSION: Stable x-ray examination of the foot, as described. There is persistent defect in the medial aspect of the mid first metatarsal. Electronically Signed: Parrish Morillo MD at 13:33 EST , Service support ,
--- NOTE | 2018-03-10 11:58 | DCINST_ITS ---
Discharge Activity: May Not Drive, May Not Shower, Use Walker, Use Crutches Weight Bearing Status: No weight bearing Keep extremity elevated above heart level: Operative Extremity Additional Activity Instructions:: strict nonweightbearing to the LLE at all times, keep elevated when seated or in bed at all times, do not use or have patient use frame to lift leg unless from behind the heel Call your doctor if your incision/area has: Sudden Increased Bleeding Call your doctor if you observe: Calf discomfort, Uncontrolled pain Cleanse incision/area with: Keep Dressing Clean & Dry Additional Dressing/Incision Instructions:: reinforce one time with DSD and then call Dr. Covington please Allergies/Adverse Reactions: Allergies aspirin Allergy (Verified 03/09/18 09:34) Hives latex Allergy (Verified 03/09/18:34) Hives Penicillins Allergy (Verified 03/09/18:34) Hives naproxen [From Aleve] Adverse Reaction (Severe, Verified 03/09/18:34) Kidney disease Stage 3 Medications to take at Discharge Allopurinol 300 mg PO DAILY 12/03/16 Amitriptyline HCl 75 mg PO QHS 12/03/16 Atenolol 50 mg PO DAILY 12/03/16 cholecalciferol (vitamin D3) 2,000 unit capsule 2,000 unit PO DAILY 05/27/17 diltiazem CD 180 mg capsule,extended release 24 hr 180 mg PO DAILY 05/27/17 hydroxychloroquine 200 mg tablet 200 mg PO QDAY 05/27/17 omega-3 fatty acids 1,000 mg capsule 1,000 mg PO QDAY 05/27/17 sitagliptin 100 mg tablet 100 mg PO QDAY 05/27/17 gabapentin 300 mg capsule 300 mg PO TID cap 08/19/17 ipratropium 20 mcg-albuterol 100 mcg/actuation mist for inhalation 1 inh INHALATION Q6H PRN #4 g 08/22/17 Atorvastatin Calcium [Lipitor] 40 mg PO QDAY 01/13/18 Cyclobenzaprine HCl 10 mg PO TID PRN PRN 01/13/18 Multivit-Min/Iron/Folic/Lutein [Centrum Silver Women Tablet] 1 tab PO DAILY 01/13/18 Acetaminophen [Tylenol Tablet] 650 mg PO Q6H PRN PRN tablet 01/21/18 Cefepime HCl [Maxipime] 2 gm IV Q12 01/21/18 Insulin Lispro [Humalog KwikPen] See Protocol SQ ACHS 01/21/18 Magnesium Hydroxide [Milk Of Magnesia] 30 ml PO DAILY PRN PRN udc 01/21/18 Mometasone Furoate [Nasonex] 2 spray INTRANASAL QDAY 01/21/18 Vancomycin IV 1,500 mg IV Q24H 01/21/18 traMADol [Ultram (G)] 50 mg PO Q4H PRN PRN 03/04/18 Pantoprazole Sodium [Protonix] 40 mg PO DAILY 03/10/18 Primary Care Physician: Pia Newton MD [Primary Care Provider] - Test Results: Test results from this visit will be discussed in further detail at your follow- up appointment, if applicable. Please Follow Up With: Candi Covington DPM - will see her in TCU Proposed Discharge Date: 03/10/18
--- NOTE | 2018-03-10 12:00 | OP.PN_ITS ---
Immediate Post-Op Note Date of Procedure: 03/10/18 Primary Surgeon/Physician: Candi Covington DPM claims adjustor: Ashutosh Gutierrez Pre-Operative Diagnosis: L ankle recurrent dislocation, broken hardware, left ankle open fracture Post-Operative Diagnosis: same Surgery/Procedure Performed:: L lower leg adjustment and application of external fixation, revisional tibiotalar arthrodesis, debridement of soft tisse and bone Description of Surgical Findings:: see dictation Estimated Blood Loss: 300mL Specimen's removed: none Drains: yes, vessel buried Type of Anesthesia:: General - Admit VTE Documentation VTE Present on Admission: No VTE Mechan Device Prophylaxis: None - planned for possibe RLE procedure concurrently VTE Pharm Prophylaxis ordered?: Yes
--- NOTE | 2018-03-10 12:15 | RAD_ITS ---
STUDY: X-RAY - LEFT ANKLE REASON FOR EXAM: Female, 58 years old. Post external fixator revision. TECHNIQUE: 3 view(s) of the ankle. COMPARISON: 3 views of the ankle March 06, 2018. FINDINGS: Extensive metal hardware of an external fixation device again overlaps the lower leg, ankle, and foot, obscuring detail. Prior resection of the distal fibula/lateral malleolus, displaced and angulated avulsion fracture of the medial malleolus and nondisplaced intra-articular fracture of the distal tibial metaphysis again noted. Status post revision, the overall tibiotalar alignment is improved, with some residual lateral subluxation of the dome of the talus although the distal tibial plafond. Dorsal subluxation grossly unchanged on the lateral view. Medial malleolar fragment remains distracted and rotated, but shows a significantly lesser degree of lateral subluxation. Relatively severe narrowing of the tibiotalar joint space also persists. A moderate amount of ill-defined ossific density again projects around the distal diaphysis and in the tissues lateral to the tibiotalar articulation. Poorly visualized talus and calcaneus. The visualized subtalar, talonavicular, calcaneocuboid and tarsal articulations are moderately obscured. A surgical drain projects within moderate swelling of the lateral soft tissues RAD/Ankle min 3 Views IMPRESSION: Improved lateral subluxation of tibiotalar alignment status post fixation and revision, including diminished lateral subluxation of the distracted/rotated medial malleolar fracture fragment. Dorsal subluxation is grossly unchanged. Prior resection of the distal fibula and nondisplaced, comminuted intra-articular fracture of the distal tibial metaphysis unchanged. There is stable severe narrowing of the tibiotalar joint space. A surgical drain is noted within moderate lateral soft tissue swelling. Electronically Signed: Parrish Morillo MD at 13:24 EST , Service support ,
[2018-03-10 12:23] LABS: Hemoglobin 7.8 g/dl (12.0-15.0)
[2018-03-10 12:26] LABS: Bedside Glucose 127 mg/dL (70-110)
--- NOTE | 2018-03-10 14:48 | NURSING ---
flushing with NS at 200ml/hr at this time.
--- NOTE | 2018-03-12 17:22 | PCM.OPRPT ---
Report of Operation Date of Procedure: 03/10/18 Pre-Operative Diagnosis: L ankle recurrent dislocation, broken hardware, left ankle open fracture Post-Operative Diagnosis: same Surgery/Procedure Performed:: L lower leg adjustment and application of external fixation, revisional tibiotalar arthrodesis, debridement of soft tisse and bone, complex closure of surgical site 9 cm Description of Surgical Findings:: see dictation basic combatant swimmer: Ashutosh Gutierrez Type of Anesthesia:: General Specimen's removed: none Drains: yes, drain vessel in central lateral incision for passive drainage Estimated Blood Loss (mL): 300mL Description of Procedure: Indications: Pt is a 58 yo F well known to me for left lower extremity limb salvage following a L open ankle fracture this summer which was treated at OSH. She has had several procedures, most recently a L tibiotalar arthrodesis with external fixation adjustment and bone graft, with Integra placement to the medial ankle wound on 02/26/2018. She has been receiving IV abx per ID and cultures/pathology while in the [facility] TCU. Since her previous surgery she developed LLE pain and edema with strikethrough bleeding noted to the dressing. I examined her at bedside on 03/07/2018 and 03/08/2018 and radiographs were performed. Her Left ankle had again dislocated and the tibiotalar arthrodesis was no longer aligned. Radiographs were obtained, no new fractures noted. Bedside evaluation revealed a 12 mm bolt was missing from her most proximal tibial ring. PT was unsure of when it became loose or when it was lost. She presents today for revision. She understands this setback is significant in her limb salvage. A compressive dressing was applied over the weekend and her edema has improved. All risks, complications, and alternatives were discussed with the patient, and the patient signed an informed consent. No guarantees were given. Procedure: On 03/10/2018, Kandy Young was visually and verbally identified in the preoperative holding area. The consent form was again reviewed with the patient, as were all risks, complications, and alternatives and the patient wished to proceed with the proposed surgery. The left lower leg and right foot was marked as the correct operative extremities. The patient was brought to the operating room and placed on the operating room table in the normal [SUPINE position. After induction by anesthesia, , A surgical time out was performed and all present were in agreement. a pneumatic thigh tourniquet was then placed to the left lower extremity. The dressings were removed, all sutures from the lateral incision of the left leg and the cristian and Integra were removed from the medial ankle, the right lateral heel suture was also removed. At this time the left lower extremity and right foot and ankle were prepped and draped in the usual sterile fashion. At this time attention was directed to the proximal tibial ring. The temporary bolt and rancho cube were removed. The ring was repositioned with two fingers space anteriorly, medially and laterally and 3 fingers posteriorly. The ring was set orthogonal to the tibia. This position was held as a rancho cube was placed over the tibial pins and a new bolt was used to connect this to the most proximal tibial ring. This was tightened by wrench. An olive wire was then placed in an axial direction from medial to lateral and parallel to the ring and secured to the ring. Two additional olive wires were then placed in the next tibia ring, one from medial to lateral and the other from lateral to medial and both parallel to the ring. They were the secured to the ring. These wires were all placed with intraoperative fluoroscopic guidance. All new olive wires were then tensioned appropriately per operations associate guidelines. At this time it was noted that The anteromedial ankle wound was then sharply and excisionally debrided with a #15 blade and curette of all fibrotic, nonviable tissue, with bleeding tissue noted. All residual hematoma was removed. The wound measured 8.5 cm x 3.5 cm x 1 cm deep. Most medial wound had residual bone exposed of the distal tibia. This was also debrided with a ronguer. These instruments were then set aside to avoid cross contamination with the lateral incision. A new #15 blade was then used to re-incise the previous lateral incision extending to a length of 9 cm. The skin edges were freshened up and the incision was carried deep with careful attention to all bleeders which were bovied as needed. The previous bone graft to the arthrodesis site was throughout the lower leg, pieces of bone graft were removed from the lateral compartment and tibiotalar space. This incision was then flushed with copious amounts of normal sterile saline with the pulse lavage, this was then used on the medial ankle wound as well for a total of 3L. The compression struts were all then released to allow for better access to the arthrodesis site. This was distracted and using currettes and a rasp the distal tibia and proximal talus sites were freshened until good bleeding bone was noted of both. 20 cc of the patient's blood was drawn by anesthesia and mixed with cancellous bone chips. These were then placed into the tibiotalar arthrodesis site and impacted. The struts were then adjusted to the previous compression settings from the distraction settings and reattached and secured. The arthrodesis site was visualized on intraoperative fluoroscopy and it was decided we would obtain a new prescription for alignment and compression as more bone had been resected. At this time it was noticed the olive wires just proximal to the tibiotalar joint had broken. This was then confirmed on the radiographs I had taken on the floor the previous weekend. The broken olive wires were removed in total without incident. Two olive wires were then again positioned parallel to the ring with one thrown from medial to lateral and the other lateral to medial at the same angle as the previous wires. these were then secured to the ring and tensioned per manufacturor guidelines. The stability and integrity of all other wires was then again confirmed on intraoperative fluoroscopy and no other broken wires were observed. All nuts and bolts were then reexaimined for the entire frame. This was then repeated in total. The tibiotalar arthrodesis site was again visualized with improved reduction, and bone graft in place. We will fine tune this post operatively. The lateral ankle incision was then prepared for closure. It measured 9 cm long. Retention sutures were placed at the distal and proximal ends of the incision using 1 prolene. The tension on the central incision did not allow for closure with sutures. A ALIDA drain was initially placed however, the incomplete closure would not allow it to hold suction. The drain was then cut and placed without suction to the central incision to allow for passive drainage. The nuts and bolts were individually again checked and confirmed to be tight. An angulated strut was placed and secured to the posterior proximal ring and ring just distal to it. The nuts and bolts of this were tightened and rechecked. Dressings were then applied with adaptic to the anteromedial wound and over the incision. Each pin site was dressed with xeroform and DSD. DSD was then placed from the toes to the proximal lower leg with MIGUEL bandage for compression. Zuleyma was then wrapped around the proximal nuts and bolts and marked for positioning. Intra operative fluoroscopy was utilized throughout the case, > 1 hour, to aid in visualization and confirmation of fracture reduction and screw and plate fixations. Interpretation of the images was vital to my decision making process. The patient tolerated the procedure and anesthesia well. The patient was then transported to the postanesthesia care unit by a member of the anesthesia team and myself with all vital signs stable and neurovascular status of the left lower extremity equal to pre-operative levels. I did not make an incision or perform a procedure on the right foot as potentially planned. At the end of the case all sponge, needle and instrument counts were found to be correct. Grafts/Implants Used: Orthofix External Fixation-TL Hexapod - Complications none - Admit VTE Documentation VTE Present on Admission: No VTE Mechan Device Prophylaxis: None - piotential b/l LE procedures, both extremities were prepped. VTE Pharm Prophylaxis ordered?: Yes
--- OUTSIDE RECORDS SUMMARY | 2018-04-26 04:47 | XMS RPT_ITS ---
:1960 Author Organization OHIP Support Name Relationship Address Phone D Unavailable Unavailable Unavailable TOMASSETTI, RANDOLPH Unavailable [address] + [place] [address] D Unavailable Unavailable Unavailable TOMASSETTI, RANDOLPH Unavailable [address] + [place] [address] D Unavailable Unavailable Unavailable TOMASSETTI, RANDOLPH Unavailable [address] + [place] [address] D Unavailable Unavailable Unavailable TOMASSETTI, RANDOLPH Unavailable [address] + [place] [address] D Unavailable Unavailable Unavailable TOMASSETTI, RANDOLPH Unavailable [address] + [place] [address] D Unavailable Unavailable Unavailable TOMASSETTI, RANDOLPH Unavailable [address] + [place] [address] D Unavailable Unavailable Unavailable TOMASSETTI, RANDOLPH Unavailable [address] + [place] [address] D Unavailable Unavailable Unavailable TOMASSETTI, RANDOLPH Unavailable [address] + [place] [address] D Unavailable Unavailable Unavailable TOMASSETTI, RANDOLPH Unavailable [address] + [place] [address] D Unavailable Unavailable Unavailable TOMASSETTI, RANDOLPH Unavailable [address] + [place] [address] D Unavailable Unavailable Unavailable TOMASSETTI, RANDOLPH Unavailable [address] + [place] [address] D Unavailable Unavailable Unavailable TOMASSETTI, RANDOLPH Unavailable [address] + [place] [address] D Unavailable Unavailable Unavailable TOMASSETTI, RANDOLPH Unavailable [address] + [place] [address] D Unavailable Unavailable Unavailable TOMASSETTI, RANDOLPH Unavailable [address] + [place] [address] D Unavailable Unavailable Unavailable TOMASSETTI, RANDOLPH Unavailable [address] + [place] [address] D Unavailable Unavailable Unavailable TOMASSETTI, RANDOLPH Unavailable [address] + [place] [address] D Unavailable Unavailable Unavailable TOMASSETTI, RANDOLHP Unavailable [phone] [place] [address] D Unavailable Unavailable Unavailable TOMASSETTI, RANDOLPH Unavailable [address] + [place] [address] D Unavailable Unavailable Unavailable TOMASSETTI, RANDOLPH Unavailable [address] + [place] [address] D Unavailable Unavailable Unavailable TOMASSETTI, RANDOLPH Unavailable [address] + [place] [address] D Unavailable Unavailable Unavailable TOMASSETTI, RANDOLPH Unavailable [phone] [place] [address] D Unavailable Unavailable Unavailable TOMASSETTI, RANDOLPH Unavailable [address] + [place] [address] D Unavailable Unavailable Unavailable TOMASSETTI, RANDOLPH Unavailable [address] + [place] [address] D Unavailable Unavailable Unavailable TOMASSETTI, RANDOLPH Unavailable [address] + [place] [address] D Unavailable Unavailable Unavailable TOMASSETTI, RANDOLPH Unavailable [phone] [place] [address] D Unavailable Unavailable Unavailable TOMASSETTI, RANDOLPH Unavailable [address] + [place] [address] D Unavailable Unavailable Unavailable TOMASSETTI, RANDOLPH Unavailable [address] + [place] [address] TOMASSETTI, FREDO Unavailable Unavailable + TOMASSETTI, RANDOLPH Unavailable Unavailable + TOMASSETTI, FREDO Unavailable Unavailable + TOMASSETTI, RANDOLPH Unavailable Unavailable + D Unavailable Unavailable Unavailable TOMASSETTI, RANDOLPH Unavailable [phone] [place] [address] D Unavailable Unavailable Unavailable TOMASSETTI, RANDOLPH Unavailable [address] + [place] [address] D Unavailable Unavailable Unavailable TOMASSETTI, RANDOLPH Unavailable [address] + [place] [address] TOMASSETTI, FREDO Unavailable Unavailable + TOMASSETTI, RANDOLPH Unavailable Unavailable + D Unavailable Unavailable Unavailable TOMASSETTI, RANDOLPH Unavailable [address] + [place] [address] TOMASSETTI, FREDO Unavailable Unavailable + TOMASSETTI, RANDOLPH Unavailable Unavailable + TOMASSETTI, FREDO Unavailable Unavailable + TOMASSETTI, RANDOLPH Unavailable Unavailable + TOMASSETTI, FREDO Unavailable Unavailable + TOMASSETTI, RANDOLPH Unavailable Unavailable + D Unavailable Unavailable Unavailable TOMASSETTI, RANDOLPH Unavailable [address] + [place] [address] D Unavailable Unavailable Unavailable TOMASSETTI, RANDOLPH Unavailable [address] + [place] [address] D Unavailable Unavailable Unavailable TOMASSETTI, RANDOLPH Unavailable [address] + [place] [address] D Unavailable Unavailable Unavailable TOMASSETTI, RANDOLPH Unavailable [address] + [place] [address] D Unavailable Unavailable Unavailable TOMASSETTI, RANDOLPH Unavailable [address] + [place] [address] D Unavailable Unavailable Unavailable TOMASSETTI, RANDOLPH Unavailable [address] + [place] [address] D Unavailable Unavailable Unavailable TOMASSETTI, RANDOLPH Unavailable [address] + [place] [address] D Unavailable Unavailable Unavailable TOMASSETTI, RANDOLPH Unavailable [address] + [place] [address] D Unavailable Unavailable Unavailable TOMASSETTI, RANDOLPH Unavailable [address] + [place] [address] D Unavailable Unavailable Unavailable TOMASSETTI, RANDOLPH Unavailable [address] + [place] [address] D Unavailable Unavailable Unavailable TOMASSETTI, RANDOLPH Unavailable [address] + [place] [address] D Unavailable Unavailable Unavailable TOMASSETTI, RANDOLPH Unavailable [address] + [place] [address] D Unavailable Unavailable Unavailable TOMASSETTI, RANDOLPH Unavailable [address] + [place] [address] D Unavailable Unavailable Unavailable TOMASSETTI, RANDOLPH Unavailable [address] + [place] [address] D Unavailable Unavailable Unavailable TOMASSETTI, RANDOLPH Unavailable [address] + [place] [address] D Unavailable Unavailable Unavailable TOMASSETTI, RANDOLPH Unavailable [address] + [place] [address] D Unavailable Unavailable Unavailable TOMASSETTI, RANDOLPH Unavailable [address] + [place] [address] D Unavailable Unavailable Unavailable TOMASSETTI, RANDOLPH Unavailable [address] + [place] [address] D Unavailable Unavailable Unavailable TOMASSETTI, RANDOLPH Unavailable [address] + [place] [address] Care Team Providers Name Role Phone Leny Jimenez Attending Unavailable Leny Jimenez Referring Unavailable Oleghe, Efewongbe Primary Care Unavailable Oleghe, Efewongbe Attending Unavailable Oleghe, Efewongbe Referring Unavailable Oleghe, Efewongbe Primary Care Unavailable Kathy Echavarria VICE PRESIDENT [employer] Attending Unavailable Oleghe, Efewongbe Primary Care Unavailable Kathy Echavarria VICE PRESIDENT [employer]-C Attending Unavailable Oleghe, Efewongbe Primary Care Unavailable Kathy Echavarria VICE PRESIDENT [employer]-C Attending Unavailable Oleghe, Efewongbe Primary Care Unavailable Darwin Lema Admitting Unavailable Everett Hillman Attending Unavailable Juan Tavarez Referring Unavailable Oleghe, Efewongbe Primary Care Unavailable Ying Bejarano Consulting Unavailable Jose Robbins Consulting Unavailable Candi Covington Consulting Unavailable Everett Hillman Consulting Unavailable Darwin Lema Admitting Unavailable Everett Hillman Attending Unavailable Corby, Juan Referring Unavailable Oleghe, Efewongbe Primary Care Unavailable Darci, Ying Consulting Unavailable Jose Robbins Consulting Unavailable Mycdeepalik, Candi Consulting Unavailable Everett Hillman F Consulting Unavailable Agyepong, Darwin Admitting Unavailable KoChristopher sharmaolas F Attending Unavailable Corby, Juan Referring Unavailable Oleghe, Efewongbe Primary Care Unavailable Darci, Ying Consulting Unavailable Jose Robbins Consulting Unavailable Mychak, Candi Consulting Unavailable Sidra Hillmans F Consulting Unavailable Agyewhitneyg, Darwin Admitting Unavailable AgyewhitneygDarwin Attending Unavailable Corby, Juan Referring Unavailable Oleghe, Efewongbe Primary Care Unavailable Darci, Ying Consulting Unavailable Jose Robbins A Consulting Unavailable Mychak, Candi Consulting Unavailable Kobriaonis, Everett F Consulting Unavailable Oleghe, Efewongbe Primary Care Unavailable Corby, Juan Referring Unavailable Agyepong, Darwin Admitting Unavailable Everett Hillman F Attending Unavailable Jose Robbins Consulting Unavailable Darci, Ying Consulting Unavailable Mychak, Candi Consulting Unavailable Oleghe, Efewongbe Primary Care Unavailable Miguelina Salazar Attending Unavailable Octavio Pulido Attending Unavailable Oleghe, Efewongbe Referring Unavailable Latosha Hargrove Attending Unavailable Chandaton Latosha Referring Unavailable Oleghe, Efewongbe Primary Care Unavailable Oleghe, Efewongbe Primary Care Unavailable Rick Barcenas Attending Unavailable Leny Jimenez Attending Unavailable Leny Jimenez Referring Unavailable Oleghe, Efewongbe Primary Care Unavailable Kathy Echavarria VICE PRESIDENT [employer]-C Attending Unavailable Oleghe, Efewongbe Primary Care Unavailable Oleghe, Efewongbe Attending Unavailable Oleghe, Efewongbe Referring Unavailable Oleghe, Efewongbe Primary Care Unavailable Oleghe, Efewongbe Attending Unavailable Oleghe, Efewongbe Referring Unavailable Oleghe, Efewongbe Primary Care Unavailable Jose Robbins Attending Unavailable Jose Robbins Referring Unavailable Oleghe, Efewongbe Primary Care Unavailable Kathy Echavarria VICE PRESIDENT [employer]-C Attending Unavailable Oleghe, Efewongbe Primary Care Unavailable Oleghe, Efewongbe Primary Care Unavailable Kathy EchavarriaC Attending Unavailable Oleghe, Efewongbe Attending Unavailable Oleghe, Efewongbe Referring Unavailable Oleghe, Efewongbe Primary Care Unavailable Livan Worley Attending Unavailable Oleghe, Efewongbe Primary Care Unavailable Tanphaichitr, Natthavat Attending Unavailable Oleghe, Efewongbe Primary Care Unavailable Tanphaichitr, Natthavat Attending Unavailable Tanphaichitr, Natthavat Referring Unavailable Oleghe, Efewongbe Primary Care Unavailable Oleghe, Efewongbe Attending Unavailable Oleghe, Efewongbe Referring Unavailable Oleghe, Efewongbe Primary Care Unavailable Livan Worley Attending Unavailable Oleghe, Efewongbe Primary Care Unavailable Livan Worley Attending Unavailable Oleghe, Efewongbe Primary Care Unavailable Nathanael Peters Attending Unavailable Melony Ying Referring Unavailable MycCandi davis Attending Unavailable Mychak, Candi Referring Unavailable Oleghe, Efewongbe Primary Care Unavailable Nathanael Peters Attending Unavailable Mikhail, Gerson Chi Referring Unavailable Candi Covington Attending Unavailable Oleghe, Efewongbe Primary Care Unavailable Nadya Candi Referring Unavailable Melony Ying Attending Unavailable Nathanael Peters Attending Unavailable Mikhail, Gerson Chi Referring Unavailable Mikhail, Gerson Chi Admitting Unavailable Viviane Aranda PA-C Attending Unavailable Mikhail, Gerson Chi Referring Unavailable Oleghe, Efewongbe Primary Care Unavailable Ying Bejarano Consulting Unavailable Luisitoone, Nellie Consulting Unavailable Mychak Candi Consulting Unavailable Bandar Ray Consulting Unavailable Cebul Ying Consulting Unavailable CastilloabrettaDankKrzysztof Consulting Unavailable Mikhail, Gerson Chi Consulting Unavailable Mikhail, Gerson Chi Admitting Unavailable Mikhail, Gerson Chi Referring Unavailable Oleghe, Efewongbe Primary Care Unavailable Ying Bejarano Consulting Unavailable Ying Ty Attending Unavailable Luisitoone, Nellie Consulting Unavailable Mychak Candi Consulting Unavailable Bandar Ray Consulting Unavailable Cebul Ying Consulting Unavailable Castilloabrsourav, Krzysztof Consulting Unavailable Mikhail, Gerson Chi Consulting Unavailable Rudolphl Ying Attending Unavailable Cebul, Ying Referring Unavailable Oleghe, Efewongbe Primary Care Unavailable Melony Ying Attending Unavailable Cebul, Ying Referring Unavailable Oleghe, Efewongbe Primary Care Unavailable Mychak, Candi Attending Unavailable Mychak, Candi Referring Unavailable Oleghe, Efewongbe Primary Care Unavailable Ellenbusandeep Ying Consulting Unavailable Mikhail, Gerson Chi Admitting Unavailable Bandar Ray Attending Unavailable Mikhail, Gerson Chi Referring Unavailable Oleghe, Efewongbe Primary Care Unavailable Ying Bejarano Consulting Unavailable Fascione, Nellie Consulting Unavailable Mychak, Candi Consulting Unavailable Bandar Ray Consulting Unavailable Mikhail, Gerson Chi Consulting Unavailable Mikhail, Gerson Chi Attending Unavailable Mikhail, Gerson Chi Referring Unavailable Oleghe, Efewongbe Primary Care Unavailable Mychak, Candi Attending Unavailable Mychak, Candi Referring Unavailable Oleghe, Efewongbe Primary Care Unavailable Octavio Humphrey Attending Unavailable Everett Hillman Referring Unavailable Sravan James Attending Unavailable Everett Hillman F Referring Unavailable Mychak, Candi Attending Unavailable Mychak, Candi Referring Unavailable Oleghe, Efewongbe Primary Care Unavailable Mikhail, Gerson Chi Attending Unavailable Oleghe, Efewongbe Primary Care Unavailable MycdeepalikJosueCandi Attending Unavailable Oleghe, Efewongbe Primary Care Unavailable Mychak, Candi Referring Unavailable Mikhail, Gerson Chi Admitting Unavailable Mikhail, Gerson Chi Attending Unavailable Mikhail, Gerson Chi Referring Unavailable Oleghe, Efewongbe Primary Care Unavailable Ying Bejarano Consulting Unavailable Luisitoone, Nellie Consulting Unavailable Mychak, Candi Consulting Unavailable Bandar Ray Consulting Unavailable Ying Ty Consulting Unavailable Krzysztof Sanchez Consulting Unavailable Chad Gardiner Consulting Unavailable Everett Hillman Attending Unavailable Darwin Lema Admitting Unavailable Corby, Juan Referring Unavailable Oleghe, Efewongbe Primary Care Unavailable Jose Robbins Consulting Unavailable Ying Bejarano Consulting Unavailable Domitilak, Candi Consulting Unavailable Everett Hillman Consulting Unavailable Darwin Lema Admitting Unavailable Everett Hillman Attending Unavailable Corby, Juan Referring Unavailable Oleghe, Efewongbe Primary Care Unavailable Ying Bejarano Consulting Unavailable Jose Robbins Consulting Unavailable Domitilak, Candi Consulting Unavailable Everett Hillman Consulting Unavailable MD TRACEY MELGOZA Attending Unavailable MANNY CALVERT, DR. BRINK Consulting Unavailable VESNA SMITH MD Admitting Unavailable KENY NATH MD Consulting Unavailable DR. BANDAR GROSS DO Consulting Unavailable SANDY CALVERT, DR. STEPHANIE Vaz Consulting Unavailable VESNA SMITH MD Consulting Unavailable ZHANG MCKEON MD Consulting Unavailable MARQUIS JO MD Consulting Unavailable LEONARDA CALVERT, DR. EVELIA Pugh Consulting Unavailable OCTAVIO CATALAN MD Consulting Unavailable WHITLEY YOUNG MD Consulting Unavailable AJAY ALFREDO DPM Consulting Unavailable MICAH CALVERT MD. YING Holm Admitting Unavailable MICAH CALVERT MD. YING Holm Attending Unavailable DR. DEO EARL DO Consulting Unavailable MICAH CALVERT MD. YING Holm Consulting Unavailable MARY KAY BUTLER MD Consulting Unavailable VESNA SMITH MD Consulting Unavailable MD. YING OBRIEN MD. Admitting Unavailable MICAH CALVERT MD. YING Holm Attending Unavailable LLUVIA HOLLIDAY MD Consulting Unavailable MANNY CALVERT, DR. BRINK Consulting Unavailable ZHANG WEINSTEIN MD Consulting Unavailable MARY KAY BUTLER MD Consulting Unavailable HOUSTON JORDAN MD Consulting Unavailable MARQUIS JO MD Consulting Unavailable SERAFIN CALVERT, DR. PAZ Consulting Unavailable MANNY CALVERT, DR. BRINK Attending Unavailable FATMATA DE ADNA DO Consulting Unavailable MICAH CALVERT MD. YING Holm Attending Unavailable JOSE MARISCAL MD Admitting Unavailable JOSE MARISCAL MD Attending Unavailable EMANUEL ROMERO MD Consulting Unavailable MANNY CALVERT, DR. BRINK Consulting Unavailable SANTANA NAPIER DO Consulting Unavailable MICAH CALVERT MD. YING Holm Consulting Unavailable PROBLEMS PROBLEMS DATE TYPE CONDITION / CODE ATTENDING STATUS SOURCE 03/25/2018 Unknown R00.0 - Tachycardia, Fran, Crook Active [facility] unspecified / Community R00.0(ICD-10) Hospital Repository 03/25/2018 Unknown R94.31 - Abnormal Fran, Crook Active [facility] electrocardiogram Community [ECG] [EKG] / Hospital R94.31(ICD-10) Repository 04/10/2018 Unknown D64.9 - Anemia, Cebul, Ying Active [facility] unspecified / Community D64.9(ICD-10) Hospital Repository 04/20/2018 Unknown M86.162 - Other acute MycCandi davis Active [facility] osteomyelitis, left Community tibia and fibula / Hospital M86.162(ICD-10) Repository 04/10/2018 Unknown L03.116 - Cellulitis Candi Covington Active [facility] of left lower limb / Community L03.116(ICD-10) Hospital Repository 04/03/2018 Unknown I10 - Essential Fran, Nathanael Active [facility] (primary) hypertension Community / I10(ICD-10) Hospital Repository 04/03/2018 Unknown I25.10 - Fran, Nathanael Active [facility] Atherosclerotic heart Community disease of [facility] coronary artery Repository without angina pectoris / I25.10(ICD-10) 04/20/2018 Unknown S82.842C - Displaced Candi Covington Active [facility] bimalleolar fracture Community of left lower leg, Hospital initial encounter for Repository open fracture type IIIA, IIIB, or IIIC / S82.842C(ICD-10) 04/06/2018 Unknown T84.84XA - Pain due to Candi Covington Active [facility] internal orthopedic Community prosthetic devices, Hospital implants and grafts, Repository initial encounter / T84.84XA(ICD-10) 04/10/2018 Unknown E11.9 - Type 2 Mikhail, Gerson Chi Active [facility] diabetes mellitus [facility] without complications Hospital / E11.9(ICD-10) Repository 04/10/2018 Unknown R53.81 - Other malaise Mikhail, Gerson Chi Active [facility] / R53.81(ICD-10) Community Hospital Repository 04/10/2018 Unknown T84.318A - Breakdown Mikhail, Gerson Chi Active [facility] (mechanical) of other Community bone devices, implants Hospital and grafts, initial Repository encounter / T84.318A(ICD-10) 03/20/2018 Unknown M86.172 - Other acute Kotsonis, Active [facility] osteomyelitis, left Everett F [facility] ankle and foot / Hospital M86.172(ICD-10) Repository 02/24/2018 Unknown L08.9 - Local Southern, Active [facility] infection of the skin Miguelina [facility] and subcutaneous Hospital tissue, unspecified / Repository L08.9(ICD-10) 10/02/2017 Unknown M54.17 - Oleghe, Active [facility] Radiculopathy, [facility] lumbosacral region / Hospital M54.17(ICD-10) Repository 08/19/2017 Unknown G62.9 - Oleghe, Active [facility] Polyneuropathy, [facility] unspecified / Hospital G62.9(ICD-10) Repository 08/12/2017 Unknown I70.261 - Jose oRbbins Active [facility] 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 / [facility] M06.4(ICD-10) Hospital Repository 05/06/2017 Unknown M79.7 - Fibromyalgia / Vellanki, Active [facility] M79.7(ICD-10) [facility] Hospital Repository 05/06/2017 Unknown M32.9 - Systemic lupus Vellanki, Active [facility] erythematosus, [facility] unspecified / Hospital M32.9(ICD-10) Repository 05/06/2017 Unknown M10.9 - Gout, Vellanki, Active [facility] unspecified / [facility] M10.9(ICD-10) Hospital Repository 05/06/2017 Unknown K76.0 - Fatty (change Vellanki, Active [facility] of) liver, not [facility] Community elsewhere classified / Hospital K76.0(ICD-10) Repository 05/06/2017 Unknown N18.9 - Chronic kidney Vellanki, Active [facility] disease, unspecified / [facility] N18.9(ICD-10) Hospital Repository 05/06/2017 Unknown G47.33 - Obstructive Vellanki, Active [facility] sleep apnea (adult) [facility] (pediatric) / Hospital G47.33(ICD-10) Repository 05/06/2017 Unknown E78.5 - Vellanki, Active [facility] Hyperlipidemia, [facility] unspecified / Hospital E78.5(ICD-10) Repository 05/06/2017 Unknown J44.9 - Chronic Vellanki, Active [facility] obstructive pulmonary [facility] disease, unspecified / Hospital J44.9(ICD-10) Repository PROCEDURES PROCEDURES No Procedure Records FoundRESULTS RESULTS BEDSIDE GLUCOSE Collected: 04/09/2018 Status: F Source: [place] 6:31 AM [facility] REPOSITORY TYPE CODE TESTS RESULT OUT OF REFERENCE UNITS RANGE LAB L501.080 70-110 mg/dL High BEDSIDE GLU 142 Result Comment: MANAGEMENT OF PATIENT CARE PER NURSING PROTOCOL Performed By: #### L501.080 #### [facility] Point of Care [facility] [place] [address] BASIC METABOLIC Collected: 04/09/2018 Status: F Source: [place] PROFILE (BMP) 5:10 AM [facility] REPOSITORY TYPE CODE TESTS RESULT OUT OF RANGE REFERENCE UNITS LAB L501.0100 74-106 mg/dL High GLU 133 Result Comment: Fasting Glucose result greater than or equal to 126 mg/dL suggests DIABETES MELLITUS per A.D.A. criteria. Please note revised GLUCOSE reference range effective 2017. LAB L501.1000 7-18 mg/dL High BUN 74 LAB L501.1100 0.55-1.02 mg/dL High CREAT,SERUM 2.22 Result Comment: The validity of the calculated GFR AND GFRAA in patients over 70 years has not been determined. Clinical correlation is essential. LAB L501.1110 >60 mL/min Low EST GFR 24 Result Comment: Non- GFR Calc LAB L501.1115 >60 mL/min Low EST GFR - AA 29 Result Comment: GFR Calc LAB L501.1255 ml/min Normal Estimated CRCL 25.23 LAB L501.1300 10-20 RATIO High BUN/CRE 33.3 LAB L501.2200 8.5-10 mg/dL Normal .1 CA 9.1 LAB L501.5300 136-14 mmol/L Normal 5 NA 139 LAB L501.5600 3.5-5. mmol/L Normal 1 K 4.2 LAB L501.5900 98-107 mmol/L Normal CL 105 LAB L501.6100 21.0-3 mmol/L Normal 2.0 CO2 22.0 LAB L501.6200 5-15 Normal GAP 12 Performed By: #### L500.2500 #### [facility] [address] [place], [place], [address] BEDSIDE GLUCOSE Collected: 04/08/2018 Status: F Source: [place] 7:09 AM [facility] REPOSITORY TYPE CODE TESTS RESULT OUT OF REFERENCE UNITS RANGE LAB L501.080 70-110 mg/dL High BEDSIDE GLU 138 Result Comment: MANAGEMENT OF PATIENT CARE PER NURSING PROTOCOL Performed By: #### L501.080 #### [facility] Point of Care [address] [place], [place] [address] BASIC METABOLIC Collected: 04/08/2018 Status: F Source: [place] PROFILE (BMP) 5:17 AM [facility] REPOSITORY TYPE CODE TESTS RESULT OUT OF RANGE REFERENCE UNITS LAB L501.0100 74-106 mg/dL High GLU 128 Result Comment: Fasting Glucose result greater than or equal to 126 mg/dL suggests DIABETES MELLITUS per A.D.A. criteria. Please note revised GLUCOSE reference range effective 2017. LAB L501.1000 7-18 mg/dL High BUN 65 LAB L501.1100 0.55-1.02 mg/dL High CREAT,SERUM 2.14 Result Comment: The validity of the calculated GFR AND GFRAA in patients over 70 years has not been determined. Clinical correlation is essential. LAB L501.1110 >60 mL/min Low EST GFR 25 Result Comment: Non- GFR Calc LAB L501.1115 >60 mL/min Low EST GFR - AA 30 Result Comment: GFR Calc LAB L501.1255 ml/min Normal Estimated CRCL 26.17 LAB L501.1300 10-20 RATIO High BUN/CRE 30.4 LAB L501.2200 8.5-10 mg/dL Normal .1 CA 9.0 LAB L501.5300 136-14 mmol/L Normal 5 NA 140 LAB L501.5600 3.5-5. mmol/L Normal 1 K 4.6 LAB L501.5900 98-107 mmol/L Normal CL 105 LAB L501.6100 21.0-3 mmol/L Normal 2.0 CO2 25.0 LAB L501.6200 5-15 Normal GAP 10 Performed By: #### L500.2500 #### [facility] [address] [place], [address] BEDSIDE GLUCOSE Collected: 04/07/2018 Status: F Source: [place] 6:30 AM [facility] REPOSITORY TYPE CODE TESTS RESULT OUT OF REFERENCE UNITS [facility] L501.080 70-110 mg/dL High BEDSIDE GLU 136 Result Comment: MANAGEMENT OF PATIENT CARE PER NURSING PROTOCOL Performed By: #### L501.080 #### [facility] Point of Care [address] [place] [address] DISCHARGE SUMMARY Observed: 04/06/2018 Status: F Source: [place] 8:47 PM [facility] REPOSITORY [facility] Medical Records Department [address] [place] [address] Discharge Summary 04/06/184 MR#: [id number] Acct: [id number] Name: KANDY LAUREN ANN Rep #: [id number] : 1960 58 From: Gerson Elizondo MD PCP: Pia Newton MD Status: ADM IN Location: [place] [address] Discharge Date and Diagnosis - Problem List Patient Problems: Active and Suspected Problems (Last Updated 03/17/18 @ 14:59 by Candi Covington DPM) Open left ankle fracture (Acute) Anemia (Acute) Date of Admission: 01/21/18 Date of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 exchanges will be performed at bedside as tolerated by the patient. This will be done for improved alignment and and compression of the tibiotalar arthrodesis. The patient tolerated the procedure and anesthesia well. The patient was then transported to the postanesthesia care unit by a member of the anesthesia team and myself with all vital signs stable and neurovascular status of the b/l lower extremities equal to pre-operative levels. At the end of the case all sponge, needle and instrument counts were found to be correct. Grafts/Implants Used: Integra Thin Skin, NPWT - Complications none - Admit VTE Documentation VTE Present on Admission: No VTE Mechan Device Prophylaxis: None VTE Pharm Prophylaxis ordered?: Yes 04/03/18 1034 <Electronically signed by Candi Covington DPM> Date Candi Covington DPM CC: DPConnie Covington; Pia Newton MD Signed BEDSIDE GLUCOSE Collected: 04/03/2018 Status: F Source: [place] 6:04 AM [facility] REPOSITORY TYPE CODE TESTS RESULT OUT OF REFERENCE UNITS RANGE LAB L501.080 70-110 mg/dL High BEDSIDE GLU 146 Result Comment: MANAGEMENT OF PATIENT CARE PER NURSING PROTOCOL Performed By: #### L501.080 #### [facility] Point of Care [facility] [place] [address] CBC W/DIFF, AUTOMATED Collected: 04/03/2018 Status: F Source: [place] 4:35 AM [facility] REPOSITORY TYPE CODE TESTS RESULT OUT OF RANGE REFERENCE UNITS LAB L100.1000 4.4-11.0 K/mm3 Normal WBC 7.2 LAB L100.1200 4.2-5.4 M/mm3 Low RBC 2.96 LAB L100.1300 12.0-15.0 g/dl Low HGB 8.2 LAB L100.1400 37-47 % Low HCT 25.3 LAB L100.1500 81-99 fL Normal MCV 85.5 LAB L100.1600 27.0-32.0 pg Normal MCH 27.7 LAB L100.1700 32-36 g/gl Normal MCHC 32.4 LAB L100.1810 11.6-14.6 % High RDW CV 15.9 LAB L100.1820 35.1-43.9 fl High RDW SD 47.6 LAB L100.1900 150-450 K/mm3 Normal PLT 238 LAB L100.2000 6.2-12.0 fl Normal MPV 9.1 LAB L100.2100 47-70 % Normal NEUT% 69.3 LAB L100.2200 19-41 % Normal LY% 19.6 LAB L100.2300 0-10 % Normal MONO% 7.8 LAB L100.2400 0-5 % Normal EO% 2.4 LAB L100.2500 0-1 % Normal BASO% 0.3 LAB L100.2550 0.0-0.9 % Normal IM GRAN % 0.600 Result Comment: IG% - Immature Granulocytes (promyelocytes, myelocytes and metamyelocytes) > 1% indicates that a LEFT SHIFT is Present. LAB L100.2620 2.0-7.7 X10 3/uL Normal Absolute Neut 5.0 LAB L100.2720 0.83-4.51 X10 3/ul Normal Absolute Lymph 1.41 Performed By: #### L100.0100 #### [facility] [address] [place], [address] BASIC METABOLIC Collected: 04/03/2018 Status: F Source: [place] PROFILE ([facility]) 4:35 AM [facility] REPOSITORY TYPE CODE TESTS RESULT OUT OF RANGE REFERENCE UNITS LAB L501.0100 74-106 mg/dL High GLU 134 Result Comment: Fasting Glucose result greater than or equal to 126 mg/dL suggests DIABETES MELLITUS per A.D.A. criteria. Please note revised GLUCOSE reference range effective 2017. LAB L501.1000 7-18 mg/dL High BUN 48 LAB L501.1100 0.55-1.02 mg/dL High CREAT,SERUM 1.57 Result Comment: The validity of the calculated GFR AND GFRAA in patients over 70 years has not been determined. Clinical correlation is essential. LAB L501.1110 >60 mL/min Low EST GFR 36 Result Comment: Non- GFR Calc LAB L501.1115 >60 mL/min Low EST GFR - AA 43 Result Comment: GFR Calc LAB L501.1255 ml/min Normal Estimated CRCL 35.67 LAB L501.1300 10-20 RATIO High BUN/CRE 30.6 LAB L501.2200 8.5-10 mg/dL Normal .1 CA 8.7 LAB L501.5300 136-14 mmol/L Normal 5 NA 141 LAB L501.5600 3.5-5. mmol/L Normal 1 K 4.5 LAB L501.5900 98-107 mmol/L High CL 108 LAB L501.6100 21.0-3 mmol/L Normal 2.0 CO2 23.0 LAB L501.6200 5-15 Normal GAP 10 Performed By: #### L500.2500 #### [facility] [address] [facility] [place], [address] TIBIA AND FIBULA Observed: 04/02/2018 Status: F Source: [place] 2 VIEWS 3:54 PM [facility] REPOSITORY [facility] Imaging Services [address] [place] [address] Tibia AND Fibula 2 Views MR#: [id number] Acct: [id number] Name: KANDY LAUREN ANN Rep #: [id number] : 1960 F 58 From: David Garcia MD PCP: Pia Newton MD Status: REG [facility] Study: Tibia AND Fibula 2 Views Date of Exam: 04/02/18 Exam# [id number] Ordering Dr: Candi Covington Connie STUDY: X-RAY - LEFT TIBIA AND FIBULA REASON FOR EXAM: Female, 58 years old. Deformity. Postop left ankle. TECHNIQUE: 2 view(s) of the tibia and fibula were obtained. COMPARISON: 03/20/2018. FINDINGS: As on all previous exams, there is extremely limited visualization of the ankle because of a marked amount of metal artifact from the external fixation hardware. The area of the ankle is particular extremely difficult to see. There are skin cristian indicating recent surgery. Bone graft material appears to still be seen overlying the distal tibia and again noted is resection of the distal fibula. There is grossly adequate alignment of the foot with the distal tibia. No definite bony fusion is seen. RAD/Tibia AND Fibula 2 Views IMPRESSION: Extremely limited, nearly uninterpretable, images of the distal tibia and fibula and ankle because of overlying metal artifact. Graft material suggested related to the distal tibia and fibula and visualized foot. No definite fusion. Electronically Signed: David Garcia MD at 23:44 EST , Service support , CC: NORA Covington; Pia Newton MD Procedure Rn: Signed FOOT 2 VIEWS Observed: 04/02/2018 Status: F Source: [place] 3:54 PM [facility] REPOSITORY [facility] Imaging Services [address] [place] [address] Foot 2 Views MR#: [id number] Acct: [id number] Name: KANDY LAUREN Rep #: [id number] : 1960 F 58 From: Vipul Petit MD PCP: Pia Newton MD Status: REG [facility] Study: Foot 2 Views Date of Exam: 04/02/18 Exam# [id number] Ordering Dr: Candi Covington DPM STUDY: X-RAY - LEFT FOOT CLINICAL: Female, 58 years old. Pain TECHNIQUE: 2 view(s) of the foot. COMPARISON: None. FINDINGS: An external fixation device is in the proximal half of the foot. The distal half of which is visualized with a rib deformity involving the proximal shaft of the first metatarsal. No acute fractures are seen. Electronically Signed: Vipul Petit MD at 7:12 EST Tel , Service support , RAD/Foot 2 Views CC: NORA Covington; Pia Newton MD Procedure Rn: Signed ANKLE MIN 3 VIEWS Observed: 04/02/2018 Status: F Source: [place] 3:54 PM [facility] REPOSITORY [facility] Imaging Services [address] [place] [address] Ankle min 3 Views MR#: [id number] Acct: [id number] Name: KANDY LAUREN Rep #: [id number] : 1960 F 58 From: Vipul Petit MD PCP: Pia Newton MD Status: REG [facility] Study: Ankle min 3 Views Date of Exam: 04/02/18 Exam# [id number] Ordering Dr: Candi Covington DPM STUDY: X-RAY - LEFT ANKLE REASON FOR EXAM: Female, 58 years old. Left foot and ankle surgery TECHNIQUE: 6 view(s) of the ankle. COMPARISON: None. FINDINGS: A complex external fixator device is seen in the distal leg and ankle. The hardware obscures any detail of bone. Electronically Signed: Vipul Petit MD at 7:46 EST Tel , Service support , RAD/Ankle min 3 Views CC: NORA Newton MD Procedure Rn: Signed BEDSIDE GLUCOSE Collected: 04/02/2018 Status: F Source: [place] 1:48 PM [facility] REPOSITORY TYPE CODE TESTS RESULT OUT OF REFERENCE UNITS RANGE LAB L501.080 70-110 mg/dL High BEDSIDE GLU 143 Result Comment: MANAGEMENT OF PATIENT CARE PER NURSING PROTOCOL Performed By: #### L501.080 #### [facility] Point of Care [address] [place] [address] BEDSIDE GLUCOSE Collected: 04/02/2018 Status: F Source: [place] 10:06 AM [facility] REPOSITORY TYPE CODE TESTS RESULT OUT OF REFERENCE UNITS RANGE LAB L501.080 70-110 mg/dL High BEDSIDE GLU 128 Result Comment: MANAGEMENT OF PATIENT CARE PER NURSING PROTOCOL Performed By: #### L501.080 #### [facility] Point of Care [address] [place] [address] BEDSIDE GLUCOSE Collected: 04/02/2018 Status: F Source: [place] 6:19 AM [facility] REPOSITORY TYPE CODE TESTS RESULT OUT OF REFERENCE UNITS RANGE LAB L501.080 70-110 mg/dL High BEDSIDE GLU 117 Result Comment: MANAGEMENT OF PATIENT CARE PER NURSING PROTOCOL Performed By: #### L501.080 #### [facility] Point of Care [address] [place] [address] BASIC METABOLIC Collected: 04/02/2018 Status: F Source: [place] PROFILE ([place]) 4:13 AM [facility] REPOSITORY Order Comment: SPECIMEN OBTAINED FROM LINE DRAW TYPE CODE TESTS RESULT OUT OF RANGE REFERENCE UNITS LAB L501.0100 74-106 mg/dL High GLU 124 Result Comment: Fasting Glucose result from 100 to 125 mg/dL suggests IMPAIRED HOMEOSTASIS per A.D.A. criteria. Please note revised GLUCOSE reference range effective 2017. LAB L501.1000 7-18 mg/dL High BUN 53 LAB L501.1100 0.55-1.02 mg/dL High CREAT,SERUM 1.69 Result Comment: The validity of the calculated GFR AND GFRAA in patients over 70 years has not been determined. Clinical correlation is essential. LAB L501.1110 >60 mL/min Low EST GFR 33 Result Comment: Non- GFR Calc LAB L501.1115 >60 mL/min Low EST GFR - AA 40 Result Comment: GFR Calc LAB L501.1255 ml/min Normal Estimated CRCL 33.14 LAB L501.1300 10-20 RATIO High BUN/CRE 31.4 LAB L501.2200 8.5-10 mg/dL Normal .1 CA 8.8 LAB L501.5300 136-14 mmol/L Normal 5 NA 137 LAB L501.5600 3.5-5. mmol/L Normal 1 K 4.3 LAB L501.5900 98-107 mmol/L Normal CL 104 LAB L501.6100 21.0-3 mmol/L Normal 2.0 CO2 23.0 LAB L501.6200 5-15 Normal GAP 10 Performed By: #### L500.2500 #### [facility] [address] [place], [address] URINALYSIS, COMPLETE Collected: 04/01/2018 Status: F Source: [place] 11:15 AM [facility] REPOSITORY Order Comment: How was Urine Obtained? CATHETER SPECIMEN TYPE CODE TESTS RESULT OUT OF RANGE REFERENCE UNITS LAB L400.3000 Yellow COLOR Normal Yellow LAB L400.3050 Clear Normal CLARITY Sl. Cloudy LAB L400.3200 Normal mg/dl High GLUCOSE, UR 100 LAB L400.3300 Negative mg/dL Normal BILIRUBIN URINE Negative LAB L400.3400 Negative mg/dl Normal KETONE UR Negative LAB L400.3465 1.002-1.030 Normal SP.GR. DIPSTX 1.010 LAB L400.3550 5.0 - 8.0 pH UR Normal 7.0 LAB L400.3600 Negative mg/dl High PROT DIPSTX 100 LAB L400.3700 Normal mg/dl Normal UROBILI Normal LAB L400.3750 Negative Normal NITRITE UR Negative LAB L400.3780 Negative /ul High 10 OCCULT BLOOD-UR LAB L400.3800 Negative /ul High LEUK 25 ESTERASE LAB L400.4050 0-5 /hpf WBC Normal 0-5 SEEN LAB L400.4100 0-5 /hpf Normal RBC-UA 0-5 SEEN LAB L400.4150 5-10 /hpf SQUAM 0 Normal EPI SEEN LAB L400.4300 None Seen /hpf 2+ Normal BACTERIA LAB L400.4350 <or=2+ /hpf 0 Normal MUCUS, URINE SEEN LAB L400.5200 None Seen /hpf 2+ Normal YEAST-URINE Performed By: #### L400.0001 #### [facility] [address] [facility] [place], [address] OSMOLALITY, URINE Collected: 04/01/2018 Status: F Source: [place] 11:15 AM [facility] REPOSITORY TYPE CODE TESTS RESULT OUT OF RANGE REFERENCE UNITS LAB L501.7400 mOsm/KG Normal 385 OSMOLALITY,U R Result Comment: OSMOLALITY URINE REFERENCE INTERVALS 24-hour Urine 300 - 900 mOsm/kg Random Urine 50 - 1400 mOsm/kg After 12 Hr fluid restriction >850 mOsm/kg Performed By: #### L501.7400 #### [facility] [address] [facility] [address] OSMOLALITY, SERUM Collected: 04/01/2018 Status: F Source: [place] 11:15 AM [facility] REPOSITORY TYPE CODE TESTS RESULT OUT OF RANGE REFERENCE UNITS LAB L501.7300 275-295 mOsm/KG High 301 OSMOLALITY,S ER Performed By: #### L501.7300 #### [facility] [address] [facility] [address] BEDSIDE GLUCOSE Collected: 04/01/2018 Status: F Source: [place] 6:20 AM [facility] REPOSITORY TYPE CODE TESTS RESULT OUT OF REFERENCE UNITS RANGE LAB L501.080 70-110 mg/dL High BEDSIDE GLU 133 Result Comment: MANAGEMENT OF PATIENT CARE PER NURSING PROTOCOL Performed By: #### L501.080 #### [facility] Point of Care [address] [place] [address] BEDSIDE GLUCOSE Collected: 03/31/2018 Status: F Source: [place] 6:30 AM [facility] REPOSITORY TYPE CODE TESTS RESULT OUT OF REFERENCE UNITS RANGE LAB L501.080 70-110 mg/dL High BEDSIDE GLU 141 Result Comment: Dr Shannon Followed MANAGEMENT OF PATIENT CARE PER NURSING PROTOCOL Performed By: #### L501.080 #### [facility] Point of Care [address] [place] [address] BASIC METABOLIC Collected: 03/31/2018 Status: F Source: [place] PROFILE ([place]) 5:10 AM [facility] REPOSITORY TYPE CODE TESTS RESULT OUT OF RANGE REFERENCE UNITS LAB L501.0100 74-106 mg/dL High GLU 135 Result Comment: Fasting Glucose result greater than or equal to 126 mg/dL suggests DIABETES MELLITUS per A.D.A. criteria. Please note revised GLUCOSE reference range effective 2017. LAB L501.1000 7-18 mg/dL High BUN 60 LAB L501.1100 0.55-1.02 mg/dL High CREAT,SERUM 1.69 Result Comment: The validity of the calculated GFR AND GFRAA in patients over 70 years has not been determined. Clinical correlation is essential. LAB L501.1110 >60 mL/min Low EST GFR 33 Result Comment: Non- GFR Calc LAB L501.1115 >60 mL/min Low EST GFR - AA 40 Result Comment: GFR Calc LAB L501.1255 ml/min Normal Estimated CRCL 33.14 LAB L501.1300 10-20 RATIO High BUN/CRE 35.5 LAB L501.2200 8.5-10 mg/dL Normal .1 CA 8.7 LAB L501.5300 136-14 mmol/L Normal 5 NA 140 LAB L501.5600 3.5-5. mmol/L Normal 1 K 4.2 LAB L501.5900 98-107 mmol/L Normal CL 106 LAB L501.6100 21.0-3 mmol/L Normal 2.0 CO2 22.0 LAB L501.6200 5-15 Normal GAP 12 Performed By: #### L500.2500, L300.3900, L300.4310 #### [facility] [address] [facility] [address] [place], [place], [id number] PROTHROMBIN TIME W/INR Collected: 03/31/2018 Status: F Source: [place] 5:10 AM [facility] REPOSITORY TYPE CODE TESTS RESULT OUT OF RANGE REFERENCE UNITS LAB L300.4150 11.7-14.9 SECONDS Normal PROTIME 13.8 LAB L300.4200 Normal INR 1.1 Performed By: #### L500.2500, L300.3900, L300.4310 #### [facility] [address] [place], [place], [id number] PARTIAL THROMBOPLAST Collected: 03/31/2018 Status: F Source: [place] TIME 5:10 AM [facility] REPOSITORY TYPE CODE TESTS RESULT OUT OF REFERENCE UNITS RANGE LAB L300.4310 24.1-36.2 Seconds High PTT 39.9 Performed By: #### L500.2500, L300.3900, L300.4310 #### [facility] [address] [place], [place], [address] TYPE AND SCREEN Collected: 03/31/2018 Status: F Source: [place] 5:10 AM [facility] REPOSITORY Order Comment: Reason for Type AND Screen/Red Cells: SURGERY TYPE CODE TESTS RESULT OUT OF RANGE REFERENCE UNITS LAB B10.0800 O Normal BLOOD TYPE GEL NEGATIVE LAB B100.4000 Normal Antibody NEGATIVE Screen Performed By: #### B101.7450 #### [facility] [address] [place], [place], [address] CBC W/DIFF, AUTOMATED Collected: 03/31/2018 Status: F Source: [place] 5:10 AM [facility] REPOSITORY TYPE CODE TESTS RESULT OUT OF RANGE REFERENCE UNITS LAB L100.1000 4.4-11.0 K/mm3 Normal WBC 6.3 LAB L100.1200 4.2-5.4 M/mm3 Low RBC 2.97 LAB L100.1300 12.0-15.0 g/dl Low HGB 8.3 LAB L100.1400 37-47 % Low HCT 25.4 LAB L100.1500 81-99 fL Normal MCV 85.5 LAB L100.1600 27.0-32.0 pg Normal MCH 27.9 LAB L100.1700 32-36 g/gl Normal MCHC 32.7 LAB L100.1810 11.6-14.6 % High RDW CV 15.9 LAB L100.1820 35.1-43.9 fl High RDW SD 48.2 LAB L100.1900 150-450 K/mm3 Normal PLT 231 LAB L100.2000 6.2-12.0 fl Normal MPV 9.3 LAB L100.2100 47-70 % Normal NEUT% 57.1 LAB L100.2200 19-41 % Normal LY% 29.0 LAB L100.2300 0-10 % Normal MONO% 9.1 LAB L100.2400 0-5 % Normal EO% 3.7 LAB L100.2500 0-1 % Normal BASO% 0.3 LAB L100.2550 0.0-0.9 % Normal IM GRAN % 0.800 Result Comment: IG% - Immature Granulocytes (promyelocytes, myelocytes and metamyelocytes) > 1% indicates that a LEFT SHIFT is Present. LAB L100.2620 2.0-7.7 X10 3/uL Normal Absolute Neut 3.6 LAB L100.2720 0.83-4.51 X10 3/ul Normal Absolute Lymph 1.81 Performed By: #### L100.0100 #### [facility] [address] [place], [address] CONSULTATION Observed: 03/30/2018 Status: F Source: [place] 12:35 PM [facility] REPOSITORY [facility] Medical Records Department [address] [place] [address] Consultation 03/30/18 1232 MR#: [id number] Acct: [id number] Name: KANDY LAUREN ANN Rep #: [id number] : 1960 58 From: Chad Gardiner MD PCP: Pia Newton MD Status: ADM IN Y Location: [place] [address] Consultation - Renal 03/30/18 PCP/ Referring MD: Requesting physician: [] Primary care physician: Pia Newton MD Reason for Consultation:: polyuria - History of Present Illness History of Present Illness: The patient is a 58 year old F with baseline creatinine 1.3 here s/p OM of left ankle after left ankle fracture, ORIF, underwent debridement per Dr. Covington 01/20/2018, admitted to TCU with debility, here for rehabilitation developed polyuria SG 1010 with excessive urination JOEY creatinine peaked 1.66 and Na <140 s/p ddavp - Allergies Allergies: Allergies aspirin Allergy (Verified 03/09/18 09:34) Hives latex Allergy (Verified 03/09/18 09:34) Hives Penicillins Allergy (Verified 03/09/18 09:34) Hives naproxen [From Aleve] Adverse Reaction (Severe, Verified 03/09/18 09:34) Kidney disease Stage 3 - Current Medications Current Medications: Current Medications Acetaminophen (Tylenol) 1,000 mg PO Q6H PRN PRN PRN Reason: MILD PAIN (-06/07) Last Admin: 03/30/18 08:26 Dose: 1,000 mg Amitriptyline HCl (Elavil) 50 mg PO QHS [facility] Last Admin: 03/29/18 21:29 Dose: 50 mg Atorvastatin Calcium (Lipitor) 40 mg PO QHS [facility] Last Admin: 03/29/18 21:29 Dose: 40 mg Bisacodyl (Dulcolax) 10 mg RECTAL DAILY PRN PRN Reason: Constipation Last Admin: 03/09/18 05:31 Dose: 10 mg Calamine/Phenol (Calmoseptine Ointment) 1 applic TOPICAL BID PRN PRN; Protocol PRN Reason: Redness Last Admin: 03/20/18 21:56 Dose: 1 applicatio Cholecalciferol (Vitamin D) 2,000 unit PO DAILY [facility] Last Admin: 03/30/18 05:00 Dose: 2,000 unit Cyclobenzaprine HCl (Flexeril) 10 mg PO TID [facility] Last Admin: 03/30/18 05:00 Dose: 10 mg Desmopressin Acetate (Ddavp Md Vial) 1 mcg IV QAM [facility] Last Admin: 03/30/18 11:00 Dose: 1 mcg Diltiazem HCl (Cardizem Cd) 180 mg PO DAILY [facility] Last Admin: 03/30/18 05:00 Dose: 180 mg Doxycycline Monohydrate (Doxycycline) 100 mg PO BID [facility] Last Admin: 03/30/18 05:01 Dose: 100 mg Enoxaparin Sodium (Lovenox) 30 mg SC DAILY [facility] Last Admin: 03/30/18 05:01 Dose: 30 mg Gabapentin (Neurontin) 300 mg PO TID [facility] Last Admin: 03/30/18 05:00 Dose: 300 mg Heparin Sodium (Beef Lung) () 50 units IV UD PRN PRN Reason: HEPARIN FLUSH Last Admin: 02/11/18 11:44 Dose: 50 units Sodium Chloride () 250 mls @ 15 mls/hr IV .[id number] PRN PRN Reason: SALINE FLUSH Last Admin: 03/12/18 07:58 Dose: 15 mls/hr Sodium Chloride () 1,000 mls @ 125 mls/hr IV .Q8H [facility] Last Admin: 03/30/18 05:01 Dose: 125 mls/hr Lidocaine/Diphenhydr/Alum/Mg/Simeth () 10 ml PO Q3H PRN PRN PRN Reason: MOUTH IRRITATION Last Admin: 02/23/18 09:14 Dose: 10 ml Metoprolol Tartrate (Lopressor (Beta Feliberto)) 25 mg PO BID [facility] Last Admin: 03/30/18 04:59 Dose: 25 mg Multi-Ingredient Cream (Eucerin) 1 applic TOPICAL 0600,2200 [facility]; Protocol Last Admin: 03/30/18 05:01 Dose: 1 applicatio Nutritional Formula (Pancho - [place] Flavor) 1 packet PO BIDCM [facility] Last Admin: 03/30/18 08:22 Dose: 1 packet Nutritional Formula (Lactose Free) (Glucerna Shake) 120 ml PO TIDCM [facility] Last Admin: 03/30/18 11:07 Dose: 120 ml Nystatin (Mycostatin Powder) 1 applic TOPICAL BID PRN PRN; Protocol PRN Reason: Redness Last Admin: 03/07/18 21:20 Dose: 1 applicatio Oxycodone HCl (Oxyir) 5 mg PO Q4H PRN PRN PRN Reason: MODERATE PAIN (4-5/10) Last Admin: 03/29/18 21:30 Dose: 5 mg Pantoprazole Sodium (Protonix) 40 mg PO DAILY [facility] Last Admin: 03/30/18 05:00 Dose: 40 mg Polyethylene Glycol (Miralax) 17 gm PO DAILY [facility] Last Admin: 03/30/18 05:00 Dose: 17 gm Polysaccharide Iron Complex (Ferrex 150) [facility] Last Admin: 03/30/18 08:23 Dose: 150 mg Senna (Senokot) 2 tablet PO BID [facility] Last Admin: 03/30/18 05:00 Dose: 2 tablet Sodium Chloride () 10 - 20 ml IV UD PRN PRN Reason: PICC FLUSH Last Admin: 03/30/18 11:03 Dose: 10 ml Sodium Chloride ([place] Nasal [place]) 1 spray NASAL TID PRN PRN PRN Reason: NASAL DRYNESS Last Admin: 03/26/18 10:41 Dose: 1 spray Tamsulosin HCl (Flomax) 0.4 mg PO DAILY@1730 [facility] Last Admin: 03/29/18 17:00 Dose: 0.4 mg Tramadol HCl (Ultram) 50 mg PO TID PRN PRN PRN Reason: MODERATE PAIN (4-5/10) Last Admin: 03/30/18 08:27 Dose: 50 mg Zolpidem Tartrate (Ambien (Generic)) 5 mg PO QHS PRN PRN PRN Reason: sleep Last Admin: 03/22/18 21:11 Dose: 5 mg - Past Medical History Past Medical History (Chronic Problems): Chronic Problems (Last Updated 03/17/18 @ 14:59 by Candi Covington DPM) Alopecia (Chronic) alopecia overlying soft tissue mass [...] History of diabetes mellitus, type II (Chronic) - Past Surgical History Surgical History: - - The patient has a history of lumbar disc surgery 2. She is undergone total abdominal hysterectomy. She is undergone right carpal tunnel release. She has had right shoulder surgery. Patient is a Ab2, having had 2 abortions. - Social History Smoking Status: Former smoker Alcohol: Rare Drugs: None - Family History Maternal Family History: Family History (Last [...] Patient Problems: Active and Suspected Problems (Last Updated 03/17/18 @ 14:59 by Candi Covington DPM) Open left ankle fracture (Acute) Anemia (Acute) - Physical Exam General: Alert, Oriented x3, Cooperative HEENT: Atraumatic, PERRLA, EOMI, Normocephalic Neck: Supple, No JVD, Negative Carotid Bruits Lungs: Clear to auscultation, Normal air movement Cardiovascular: Regular rate, No murmurs Abdomen: Bowel Sounds Present, Soft, Non Tender Extremities: No edema, Capillary Refill Less than 3 Seconds Skin: No rashes, No breakdown Musculoskeletal: No Tenderness to Palpation of Joints or Extremities Neurological: Cranial nerves II-XII grossly intact Psych/Mental Status: Normal Affect, Appropriate Vital Signs Temp Pulse Resp BP Pulse Ox 98.1 F 99 16 162/84 H 99 03/29/18 15:57 03/30/18 04:59 03/30/18 11:22 03/30/18 04:59 03/29/18 15:57 Oxygen Flow Rate (L/min) 2 Oxygen Delivery Method Room Air Weight: 110.308 kg Body Mass Index (BMI) 37.3 Intake and Output for Last 24 Hours POC Glucose POC Glucose 122 H Assessment/Plan All Active Problems (Last Updated 03/17/18 @ 14:59 by Candi Covington DPM) Recurrent dislocation of left ankle (Acute) Localized edema (Acute) Breakdown (mechanical) of other bone devices, implants and grafts, initial encounter (Acute) Acute osteomyelitis involving ankle and foot (Acute) [...] (Acute) Tobacco abuse counseling (Acute) 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 (Acute) JOEY secondary to prerenal component with polyuria SG 1010 sy having CDI vs reset osmostat- I will order urine snd serum osmolarity IVF changed to D51/2 NS RFP Q12 DDAVP daily if UO>5 L replace 1:1 with 1/2 NS 03/30/18 1235 <Electronically signed by Chad Gardiner MD> Date Chad Gardiner MD Cosigner Signature (if applicable): Date CC: NOAR Covington; Krzysztof Sanchez MD; Pia Newton MD; Bandar Ray MD; Nellie Quezada DPM; Ying Ty MD; Ying Bejarano MD; Chad Gardiner MD; Gerson Elizondo MD Signed BEDSIDE GLUCOSE Collected: 03/30/2018 Status: F Source: ANA 6:34 AM [facility] REPOSITORY TYPE CODE TESTS RESULT OUT OF REFERENCE UNITS RANGE LAB L501.080 70-110 mg/dL High BEDSIDE GLU 122 Result Comment: MANAGEMENT OF PATIENT CARE PER NURSING PROTOCOL Performed By: #### L501.080 #### [facility] Point of Care [address] [place], [place] [address] BEDSIDE GLUCOSE Collected: 03/29/2018 Status: F Source: ANA 6:33 AM [facility] REPOSITORY TYPE CODE TESTS RESULT OUT OF REFERENCE UNITS RANGE LAB L501.080 70-110 mg/dL High BEDSIDE GLU 127 Result Comment: MANAGEMENT OF PATIENT CARE PER NURSING PROTOCOL Performed By: #### L501.080 #### [facility] Point of Care [address] [place] [address] BASIC METABOLIC Collected: 03/29/2018 Status: F Source: ANA PROFILE (BMP) 4:51 AM [facility] REPOSITORY Order Comment: SPECIMEN OBTAINED FROM LINE DRAW TYPE CODE TESTS RESULT OUT OF RANGE REFERENCE UNITS LAB L501.0100 74-106 mg/dL High GLU 162 Result Comment: Fasting Glucose result greater than [...] LAB L501.5300 136-14 mmol/L Normal 5 NA 138 LAB L501.5600 3.5-5. mmol/L Normal 1 K 4.4 LAB L501.5900 98-107 mmol/L High CL 108 LAB L501.6100 21.0-3 mmol/L Normal 2.0 CO2 21.0 LAB L501.6200 5-15 Normal GAP 9 Performed By: #### L500.2500 #### [facility] [address] [place], [place], [address] BEDSIDE GLUCOSE Collected: 03/28/2018 Status: F Source: ANA 6:21 AM [facility] REPOSITORY TYPE CODE TESTS RESULT OUT OF REFERENCE UNITS RANGE LAB L501.080 70-110 mg/dL High BEDSIDE GLU 141 Result Comment: MANAGEMENT OF PATIENT CARE PER NURSING PROTOCOL Performed By: #### L501.080 #### [facility] Point of Care [address] [place], [place] [address] BASIC METABOLIC Collected: 03/28/2018 Status: F Source: ANA PROFILE (BMP) 5:10 AM [facility] REPOSITORY Order Comment: [place] DRAW TYPE CODE TESTS RESULT OUT OF RANGE REFERENCE UNITS LAB L501.0100 74-106 mg/dL High GLU 137 Result Comment: Fasting Glucose result greater than or equal to 126 mg/dL suggests DIABETES MELLITUS per A.D.A. criteria. Please note revised GLUCOSE reference range effective 2017. LAB L501.1000 7-18 mg/dL High BUN 61 LAB L501.1100 0.55-1.02 mg/dL High CREAT,SERUM 1.65 [...] 33.94 LAB L501.1300 10-20 RATIO High BUN/CRE 37.0 LAB L501.2200 8.5-10 mg/dL Normal .1 CA 8.9 LAB L501.5300 136-14 mmol/L Normal 5 NA 139 LAB L501.5600 3.5-5. mmol/L Normal 1 K 4.4 LAB L501.5900 98-107 mmol/L High CL 108 LAB L501.6100 21.0-3 mmol/L Normal 2.0 CO2 22.0 LAB L501.6200 5-15 Normal GAP 9 Performed By: #### L500.2500 #### [facility] [address] [place], [place], [address] BEDSIDE GLUCOSE Collected: 03/27/2018 Status: F Source: ANA 6:31 AM [facility] REPOSITORY TYPE CODE TESTS RESULT OUT OF REFERENCE UNITS RANGE LAB L501.080 70-110 mg/dL High BEDSIDE GLU 145 Result Comment: MANAGEMENT OF PATIENT CARE PER NURSING PROTOCOL Performed By: #### L501.080 #### [facility] Point of Care [address] [facility] [place] [address] BASIC METABOLIC Collected: 03/27/2018 Status: F Source: ANA PROFILE (BMP) 4:18 AM [facility] REPOSITORY Order Comment: SPECIMEN OBTAINED FROM LINE DRAW TYPE CODE TESTS RESULT OUT OF RANGE REFERENCE UNITS LAB L501.0100 74-106 mg/dL High GLU 140 Result Comment: Fasting Glucose result greater than or equal to 126 mg/dL suggests DIABETES MELLITUS per A.D.A. criteria. Please note revised GLUCOSE reference range effective 2017. LAB L501.1000 7-18 mg/dL High BUN 61 LAB L501.1100 0.55-1.02 mg/dL High CREAT,SERUM 1.56 Result Comment: The validity of the calculated GFR AND GFRAA in patients over 70 years has not been determined. Clinical correlation is essential. LAB L501.1110 >60 mL/min Low EST GFR 36 Result Comment: Non- GFR Calc LAB L501.1115 >60 mL/min Low EST GFR - AA 44 Result Comment: GFR Calc LAB L501.1255 ml/min Normal Estimated CRCL 35.90 LAB L501.1300 10-20 RATIO High BUN/CRE 39.1 LAB L501.2200 8.5-10 mg/dL Normal .1 CA 8.8 LAB L501.5300 136-14 mmol/L Normal 5 NA 137 LAB L501.5600 3.5-5. mmol/L Normal 1 K 4.5 LAB L501.5900 98-107 mmol/L Normal CL 106 LAB L501.6100 21.0-3 mmol/L Low 2.0 CO2 20.0 LAB L501.6200 5-15 Normal GAP 11 Performed By: #### L500.2500 #### [facility] [address] [place], [place], [address] BEDSIDE GLUCOSE Collected: 03/26/2018 Status: F Source: ANA 6:16 AM [facility] REPOSITORY TYPE CODE TESTS RESULT OUT OF REFERENCE UNITS RANGE LAB L501.080 70-110 mg/dL High BEDSIDE GLU 133 Result Comment: MANAGEMENT OF PATIENT CARE PER NURSING PROTOCOL Performed By: #### L501.080 #### [facility] Point of Care [address] [place], [place] [address] CBC W/DIFF, AUTOMATED Collected: 03/25/2018 Status: F Source: ANA 2:04 PM [facility] REPOSITORY TYPE CODE TESTS RESULT OUT OF RANGE REFERENCE UNITS LAB L100.1000 4.4-11.0 K/mm3 High WBC 11.3 LAB L100.1200 4.2-5.4 M/mm3 Low RBC 3.11 LAB L100.1300 12.0-15.0 g/dl Low HGB 8.5 LAB L100.1400 37-47 % Low HCT 26.3 LAB L100.1500 81-99 fL Normal MCV 84.6 LAB L100.1600 27.0-32.0 pg Normal MCH 27.3 LAB L100.1700 32-36 g/gl Normal MCHC 32.3 LAB L100.1810 11.6-14.6 % High RDW CV 16.5 LAB L100.1820 35.1-43.9 fl High RDW SD 50.4 LAB L100.1900 150-450 K/mm3 Normal PLT 211 LAB L100.2000 6.2-12.0 fl Normal MPV 8.7 LAB L100.2100 47-70 % High NEUT% 71.4 LAB L100.2200 19-41 % Low LY% 17.6 LAB L100.2300 0-10 % Normal MONO% 8.5 LAB L100.2400 0-5 % Normal EO% 1.8 LAB L100.2500 0-1 % Normal BASO% 0.2 LAB L100.2550 0.0-0.9 % Normal IM GRAN % 0.500 Result Comment: IG% - Immature Granulocytes (promyelocytes, myelocytes and metamyelocytes) > 1% indicates that a LEFT SHIFT is Present. LAB L100.2620 2.0-7.7 X10 3/uL High Absolute Neut 8.1 LAB L100.2720 0.83-4.51 X10 3/ul Normal Absolute Lymph 1.98 Performed By: #### L100.0100 #### [facility] [address] [facility] [address] [place], [place], [address] BEDSIDE GLUCOSE Collected: 03/25/2018 Status: F Source: [place] 6:30 AM [facility] REPOSITORY TYPE CODE TESTS RESULT OUT OF REFERENCE UNITS RANGE LAB L501.080 70-110 mg/dL High BEDSIDE GLU 136 Result Comment: MANAGEMENT OF PATIENT CARE PER NURSING PROTOCOL Performed By: #### L501.080 #### [facility] Point of Care [address] [facility] [place], [place] [address] BEDSIDE GLUCOSE Collected: 03/24/2018 Status: F Source: ANA 6:37 AM [facility] REPOSITORY TYPE CODE TESTS RESULT OUT OF REFERENCE UNITS RANGE LAB L501.080 70-110 mg/dL High BEDSIDE GLU 132 Result Comment: MANAGEMENT OF PATIENT CARE PER NURSING PROTOCOL Performed By: #### L501.080 #### [facility] Point of Care [address] [place], [place] [address] BASIC METABOLIC Collected: 03/24/2018 Status: F Source: ANA PROFILE (BMP) 5:50 AM [facility] REPOSITORY Order Comment: SPECIMEN OBTAINED FROM LINE DRAW TYPE CODE TESTS RESULT OUT OF RANGE REFERENCE UNITS LAB L501.0100 74-106 mg/dL High GLU 129 Result Comment: Fasting Glucose result greater than or equal to 126 mg/dL suggests DIABETES MELLITUS per A.D.A. criteria. Please note revised GLUCOSE reference range effective 2017. LAB L501.1000 7-18 mg/dL High BUN 59 LAB L501.1100 0.55-1.02 mg/dL High CREAT,SERUM 1.53 Result Comment: The validity of the calculated GFR AND GFRAA in patients over 70 years has not been determined. Clinical correlation is essential. LAB L501.1110 >60 mL/min Low EST GFR 37 Result Comment: Non- GFR Calc LAB L501.1115 >60 mL/min Low EST GFR - AA 45 Result Comment: GFR Calc LAB L501.1255 ml/min Normal Estimated CRCL 36.60 LAB L501.1300 10-20 RATIO High BUN/CRE 38.6 LAB L501.2200 8.5-10 mg/dL Normal .1 CA 8.5 LAB L501.5300 136-14 mmol/L Normal 5 NA 138 LAB L501.5600 3.5-5. mmol/L Normal 1 K 4.5 LAB L501.5900 98-107 mmol/L High CL 108 LAB L501.6100 21.0-3 mmol/L Low 2.0 CO2 20.0 LAB L501.6200 5-15 Normal GAP 10 Performed By: #### L500.2500 #### [facility] [address] [place], [place], [address] BEDSIDE GLUCOSE Collected: 03/23/2018 Status: F Source: ANA 6:28 AM [facility] REPOSITORY TYPE CODE TESTS RESULT OUT OF REFERENCE UNITS RANGE LAB L501.080 70-110 mg/dL High BEDSIDE GLU 125 Result Comment: MANAGEMENT OF PATIENT CARE PER NURSING PROTOCOL Performed By: #### L501.080 #### [facility] Point of Care [address] [place], [place] [id number] BEDSIDE GLUCOSE Collected: 03/22/2018 Status: F Source: ANA 6:48 AM [facility] REPOSITORY TYPE CODE TESTS RESULT OUT OF RANGE REFERENCE UNITS LAB L501.080 70-110 mg/dL Normal BEDSIDE GLU 106 Result Comment: MANAGEMENT OF PATIENT CARE PER NURSING PROTOCOL Performed By: #### L501.080 #### [facility] Point of Care [address] [place] [address] BASIC METABOLIC Collected: 03/22/2018 Status: F Source: ANA PROFILE (BMP) 5:10 AM [facility] REPOSITORY Order Comment: SPECIMEN OBTAINED FROM LINE DRAW TYPE CODE TESTS RESULT OUT OF RANGE REFERENCE UNITS LAB L501.0100 74-106 mg/dL High GLU 135 Result Comment: Fasting Glucose result greater than or equal to 126 mg/dL suggests DIABETES MELLITUS per A.D.A. criteria. Please note revised GLUCOSE reference range effective 2017. LAB L501.1000 7-18 mg/dL High BUN 60 LAB L501.1100 0.55-1.02 mg/dL High CREAT,SERUM 1.77 Result Comment: The validity of the calculated GFR AND GFRAA in patients over 70 years has not been determined. Clinical correlation is essential. LAB L501.1110 >60 mL/min Low EST GFR 31 Result Comment: Non- GFR Calc LAB L501.1115 >60 mL/min Low EST GFR - AA 38 Result Comment: GFR Calc LAB L501.1255 ml/min Normal Estimated CRCL 31.64 LAB L501.1300 10-20 RATIO High BUN/CRE 33.9 LAB L501.2200 8.5-10 mg/dL Normal .1 CA 8.8 LAB L501.5300 136-14 mmol/L Normal 5 NA 138 LAB L501.5600 3.5-5. mmol/L Normal 1 K 4.4 LAB L501.5900 98-107 mmol/L High CL 108 LAB L501.6100 21.0-3 mmol/L Normal 2.0 CO2 21.0 LAB L501.6200 5-15 Normal GAP 9 Performed By: #### L500.2500 #### [facility] [address] [place], [address] BEDSIDE GLUCOSE Collected: 03/21/2018 Status: F Source: [place] 6:28 AM [facility] REPOSITORY TYPE CODE TESTS RESULT OUT OF REFERENCE UNITS RANGE LAB L501.080 70-110 mg/dL High BEDSIDE GLU 140 Result Comment: MANAGEMENT OF PATIENT CARE PER NURSING PROTOCOL Performed By: #### L501.080 #### [facility] Point of Care [address] [facility] [place] [address] ANKLE MIN 3 VIEWS Observed: 03/20/2018 Status: F Source: [place] 8:34 PM [facility] REPOSITORY [facility] Imaging Services [address] [facility] [place] [address] Ankle min 3 Views MR#: [id number] Acct: [id number] Name: KANDY LAUREN ANN Rep #: [id number] : 1960 F 58 From: Sunshine Patterson MD PCP: Pia Newton MD Status: ADM IN Study: Ankle min 3 Views Date of Exam: 03/20/18 Exam# [id number] Ordering Dr: Candi Covington DPM STUDY: X-RAY - LEFT ANKLE REASON FOR EXAM: Female, 58 years old. Follow-up after readjustment of external fixator. TECHNIQUE: 4 view(s) of the ankle. COMPARISON: Radiographs of the left ankle dated March 20, 2018 time stamped 5:01 AM. FINDINGS: Anatomic detail is limited secondary to overlying external fixator. The patient apparently has had partial resection of the distal fibula. There is residual deformity of the distal tibia probably the sequela of fracture. There is a displaced medial malleolar fracture. There is soft tissue swelling. RAD/Ankle min 3 Views IMPRESSION: Documentation of adjustment of external fixator. Electronically Signed: Sunshine Patterson MD at 3:06 EST , Service support , CC: NORA Covington; Pia Newton MD Procedure Rn: Signed TIBIA AND FIBULA Observed: 03/20/2018 Status: F Source: [place] 2 VIEWS 8:34 PM [facility] REPOSITORY [facility] Imaging Services [address] [place] [address] Tibia AND Fibula 2 Views MR#: [id number] Acct: [id number] Name: KANDY LAUREN ANN Rep #: [id number] : 1960 F 58 From: Sunshine Patterson MD PCP: Pia Newton MD Status: ADM IN Study: Tibia AND Fibula 2 Views Date of Exam: 03/20/18 Exam# [id number] Ordering Dr: Candi Covington DPM STUDY: X-RAY - LEFT TIBIA AND FIBULA REASON FOR EXAM: Female, 58 years old. Documentation of adjustment of external fixator. TECHNIQUE: AP and lateral view(s) of the tibia and fibula were obtained. COMPARISON: Radiographs of the left leg dated March 20, 2018. FINDINGS: External fixator obscures much of the anatomy of the leg. The proximal prongs of the fixator are visible in the proximal tibial diaphysis. The patient apparently has had surgical resection of the distal fibula. There is some bone formation near the distal fibula. There is diffuse soft tissue swelling. RAD/Tibia AND Fibula 2 Views IMPRESSION: Documentation of readjustment of the external fixator. Electronically Signed: Sunshine Patterson MD at 3:12 EST , Service support , CC: NORA Covington; Pia Newton MD Procedure Rn: Signed FOOT MIN 3 VIEWS Observed: 03/20/2018 Status: F Source: [place] 8:34 PM [facility] REPOSITORY [facility] Imaging Services [address] [place] [address] Foot min 3 Views MR#: [id number] Acct: [id number] Name: KANDY LAUREN ANN Rep #: [id number] : 1960 F 58 From: Sunshine Patterson MD PCP: Pia Newton MD Status: ADM IN Study: Foot min 3 Views Date of Exam: 03/20/18 Exam# [id number] Ordering Dr: Candi Covington DPM STUDY: X-RAY - LEFT FOOT CLINICAL: Female, 58 years old. Documentation of strut adjustment of external fixator. TECHNIQUE: 3 view(s) of the foot. COMPARISON: Radiographs of the left foot dated March 20, 2018. FINDINGS: External fixator obscures most of the anatomy of the foot. There is a bipartite tibial sesamoid. There is deformity of the first metatarsal which may be the result of previous surgery or fracture. RAD/Foot min 3 Views IMPRESSION: Documentation of readjustment of the Ilizarov external fixator. Electronically Signed: Sunshine Patterson MD at 3:16 EST , Service support , CC: NORA Covington; Pia Newton MD Procedure Rn: Signed BEDSIDE GLUCOSE Collected: 03/20/2018 Status: F Source: ANA 6:47 AM [facility] REPOSITORY TYPE CODE TESTS RESULT OUT OF REFERENCE UNITS RANGE LAB L501.080 70-110 mg/dL High BEDSIDE GLU 132 Result Comment: MANAGEMENT OF PATIENT CARE PER NURSING PROTOCOL Performed By: #### L501.080 #### [facility] Point of Care [address] [place], [place] [address] BASIC METABOLIC Collected: 03/20/2018 Status: F Source: ANA PROFILE (BMP) 5:00 AM [facility] REPOSITORY Order Comment: SPECIMEN OBTAINED FROM LINE DRAW TYPE CODE TESTS RESULT OUT OF RANGE REFERENCE UNITS LAB L501.0100 74-106 mg/dL High GLU 139 Result Comment: Fasting Glucose result greater than or equal to 126 mg/dL suggests DIABETES MELLITUS per A.D.A. criteria. Please note revised GLUCOSE reference range effective 2017. LAB L501.1000 7-18 mg/dL High BUN 58 LAB L501.1100 0.55-1.02 mg/dL High CREAT,SERUM 1.85 Result Comment: The validity of the calculated GFR AND GFRAA in patients over 70 years has not been determined. Clinical correlation is essential. LAB L501.1110 >60 mL/min Low EST GFR 30 Result Comment: Non- GFR Calc LAB L501.1115 >60 mL/min Low EST GFR - AA 36 Result Comment: GFR Calc LAB L501.1255 ml/min Normal Estimated CRCL 30.27 LAB L501.1300 10-20 RATIO High BUN/CRE 31.4 LAB L501.2200 8.5-10 mg/dL Normal .1 CA 8.7 LAB L501.5300 136-14 mmol/L Normal 5 NA 140 LAB L501.5600 3.5-5. mmol/L Normal 1 K 4.7 LAB L501.5900 98-107 mmol/L Normal CL 107 LAB L501.6100 21.0-3 mmol/L Normal 2.0 CO2 22.0 LAB L501.6200 5-15 Normal GAP 11 Performed By: #### L500.2500 #### [facility] [address] [place], [address] FOOT MIN 3 VIEWS Observed: 03/20/2018 Status: F Source: ANA 4:27 AM [facility] REPOSITORY [facility] Imaging Services [address] [place] [address] Foot min 3 Views MR#: [id number] Acct: [id number] Name: KANDY LAUREN Rep #: [id number] : 1960 F 58 From: Sunshine Patterson MD PCP: Pia Newton MD Status: ADM IN Study: Foot min 3 Views Date of Exam: 03/20/18 Exam# [id number] Ordering Dr: Candi Covington DPM STUDY: X-RAY - LEFT FOOT CLINICAL: Female, 58 years old. Increased drainage in the region of the ankle. TECHNIQUE: 3 view(s) of the foot. COMPARISON: Radiographs of the left ankle dated March 20, 2018. FINDINGS: There is limited visualization of the bones in general because of the external fixator. The visualized bones appear osteopenic. There are defects within the first metatarsal that may be the result of previous trauma and/or surgery. There is obscuration of several of the metatarsals. Normal metatarsophalangeal joint of the great toe. Normal tibial and fibular sesamoid bones. Normal interphalangeal joint of the great toe. Normal phalanges of the great toe. Normal second through fifth metatarsophalangeal joints. Normal interphalangeal joints and phalanges of the lesser toes. There is soft tissue swelling particularly at the ankle. RAD/Foot min 3 Views IMPRESSION: 1. Technically limited study due to external fixator. 2. Deformity of the first metatarsal is presumably related to previous surgery or trauma. Electronically Signed: Sunshine Pattersno MD at 5:51 EST , Service support , CC: NORA Covington; Pia Newton MD Procedure Rn: Signed ANKLE MIN 3 VIEWS Observed: 03/20/2018 Status: F Source: ANA 4:27 AM [facility] REPOSITORY [facility] Imaging Services [address] [place] [address] Ankle min 3 Views MR#: [id number] Acct: [id number] Name: KANDY LAUREN Rep #: [id number] : 1960 F 58 From: Sunshine Patterson MD PCP: Pia Newton MD Status: ADM IN Study: Ankle min 3 Views Date of Exam: 03/20/18 Exam# [id number] Ordering Dr: Candi Covington DPM ADDENDUM by Sunshine Patterson MD on 03/20/18 at 0838 ADDENDUM Discussed findings with Dr. Covington on March 20, 2018 at 0834 a.m. There has been surgical removal of the distal fibula. However, there is heterotopic bone formation at the surgical site and this could be related to attempted healing, but postinfectious etiologies are still possible. The findings at the medial malleolus are not postoperative in etiology. Reportedly patient has had negative cultures, but when these cultures were obtained are unknown at the time of dictation. Electronically Signed: Sunshine Patterson MD at 8:38 EST , Service support , 03/20/18 0838 Date cc: NORA Covington; Pia Newton MD * Signed ADDENDUM by Sunshine Patterson MD on 03/20/18 at 0838 RAD/Ankle min 3 Views 03/20/18 0845 Date cc: NORA Covington; Pia Newton MD * Signed STUDY: X-RAY - LEFT ANKLE REASON FOR EXAM: Female, 58 years old. Increasing purulent drainage and left ankle, distal leg and foot. TECHNIQUE: 3 view(s) of the ankle. COMPARISON: Radiographs of the left ankle dated March 17, 2018. FINDINGS: There is significant limited visualization of the ankle secondary to the external fixator. The distal fibula appears to have undergone osteolysis and is not present. This may be the result of osteomyelitis. There is abnormal heterogeneous attenuation of distal tibia that may be the result of previous fracture. Appears to be ununited fracture of the medial malleolus with possible osteolysis. There is limited visualization of the tarsal bones. There is limited visualization metatarsals. There is severe soft tissue swelling at the ankle with soft tissue emphysema visible of the medial ankle presumably related to infection. RAD/Ankle min 3 Views IMPRESSION: 1. Severe soft tissue swelling of the ankle with soft tissue emphysema presumably related to known soft tissue infection. 2. There is questionable osteolysis of the medial malleolus as well as osteolysis of the distal fibula and lateral malleolus. These findings could be the result of osteomyelitis. 3. Technically limited study due to obscuration by external fixator. Electronically Signed: Sunshine Patterson MD at 5:55 EST , Service support , CC: NORA Covington; Pia Newton MD Procedure Rn: Signed TIBIA AND FIBULA Observed: 03/20/2018 Status: F Source: [place] 2 VIEWS 4:27 AM [facility] REPOSITORY [facility] Imaging Services [address] [place] [address] Tibia AND Fibula 2 Views MR#: [id number] Acct: [id number] Name: KANDY LAUREN Rep #: [id number] : 1960 F 58 From: Sunshine Patterson MD PCP: Pia Newton MD Status: ADM IN Study: Tibia AND Fibula 2 Views Date of Exam: 03/20/18 Exam# [id number] Ordering Dr: Candi Covington DPM ADDENDUM by Sunshine Patterson MD on 03/20/18 at 0844 ADDENDUM NOTE: Patient has reportedly had surgical resection of the distal fibula. Electronically Signed: Sunshine Patterson MD at 8:44 EST , Service support , 03/20/18 0844 Date cc: NORA Covington; Pia Newton MD * Signed ADDENDUM by Sunshine Patterson MD on 03/20/18 at 0844 RAD/Tibia AND Fibula 2 Views 03/20/18 0851 Date cc: NORA Covington; Pia Newton MD * Signed STUDY: X-RAY - LEFT TIBIA AND FIBULA REASON FOR EXAM: Female, 58 years old. Increased drainage from left ankle. TECHNIQUE: 4 view(s) of the tibia and fibula were obtained. COMPARISON: 3 radiographs of the left ankle dated March 17, 2018. FINDINGS: There is limited visualization of the bones of the leg and ankle secondary to external fixator. There is osteolysis of the distal fibula and lateral malleolus. There is ununited fracture of the medial malleolus. There are lucencies within the tibia that are probably related to previous location of the external fixator. There is severe soft tissue swelling of the leg and ankle. Soft tissue emphysema is visible within the soft tissues of the ankle suggesting sequela of severe soft tissue infection. Vascular calcifications are visible at the knee and proximal calf. RAD/Tibia AND Fibula 2 Views IMPRESSION: 1. Osteolysis of the distal fibula and possibly the medial malleolus as well may be the result of osteomyelitis. The appearance is similar to radiographs dated March 10, 2018. 2. Severe soft tissue swelling with soft tissue emphysema consistent with severe soft tissue infection. 3. Technically limited study due to external fixator. Electronically Signed: Sunshine Patterson MD at 6:04 EST , Service support , CC: NORA Covington; Pia Newton MD Procedure Rn: Signed BEDSIDE GLUCOSE Collected: 03/19/2018 Status: F Source: ANA 6:27 AM [facility] REPOSITORY TYPE CODE TESTS RESULT OUT OF REFERENCE UNITS RANGE LAB L501.080 70-110 mg/dL High BEDSIDE GLU 146 Result Comment: MANAGEMENT OF PATIENT CARE PER NURSING PROTOCOL Performed By: #### L501.080 #### [facility] Point of Care [address] [place], [place] [id number] BEDSIDE GLUCOSE Collected: 03/18/2018 Status: F Source: ANA 6:20 AM [facility] REPOSITORY TYPE CODE TESTS RESULT OUT OF REFERENCE UNITS RANGE LAB L501.080 70-110 mg/dL High BEDSIDE GLU 141 Result Comment: MANAGEMENT OF PATIENT CARE PER NURSING PROTOCOL Performed By: #### L501.080 #### [facility] Point of Care [address] [place], [place] [address] BASIC METABOLIC Collected: 03/18/2018 Status: F Source: ANA PROFILE (BMP) 6:00 AM [facility] REPOSITORY Order Comment: SPECIMEN OBTAINED FROM LINE DRAW TYPE CODE TESTS RESULT OUT OF RANGE REFERENCE UNITS LAB L501.0100 74-106 mg/dL High GLU 144 Result Comment: Fasting Glucose result greater than or equal to 126 mg/dL suggests DIABETES MELLITUS per A.D.A. criteria. Please note revised GLUCOSE reference range effective 2017. LAB L501.1000 7-18 mg/dL High BUN 62 LAB L501.1100 0.55-1.02 mg/dL High CREAT,SERUM 1.81 Result Comment: The validity of the calculated GFR AND GFRAA in patients over 70 years has not been determined. Clinical correlation is essential. LAB L501.1110 >60 mL/min Low EST GFR 30 Result Comment: Non- GFR Calc LAB L501.1115 >60 mL/min Low EST GFR - AA 37 Result Comment: GFR Calc LAB L501.1255 ml/min Normal Estimated CRCL 30.94 LAB L501.1300 10-20 RATIO High BUN/CRE 34.3 LAB L501.2200 8.5-10 mg/dL Normal .1 CA 8.8 LAB L501.5300 136-14 mmol/L Normal 5 NA 144 LAB L501.5600 3.5-5. mmol/L Normal 1 K 4.7 LAB L501.5900 98-107 mmol/L High CL 111 LAB L501.6100 21.0-3 mmol/L Normal 2.0 CO2 25.0 LAB L501.6200 5-15 Normal GAP 8 Performed By: #### L500.2500 #### [facility] [address] [place], [address] VENOUS DUPLEX LOWER Observed: 03/17/2018 Status: F Source: ANA EXTREMITY 7:41 PM [facility] REPOSITORY [facility] Cardiovascular Services [address] [facility] [place] [address] Venous Duplex US, Unilateral 03/17/18 1233 MR#: [id number] Acct: [id number] Name: KANDY LAUREN ANN Rep #: [id number] : 1960 58 From: Fidel Corona MD Attending Dr: Mikhail SKINNER,Gerson Watson Status: ADM IN Ordering Dr: Gerson Elizondo MD Date: 03/17/18 Location: [facility] Sex: F C Admitted: 01/21/18 Reason For [...] Ordering Physician: Gerson Elizondo Performed By: Abdoul Porter, RVT 03/17/181939 Date Fidel Corona MD CC: Pia Newton MD; Gerson Elizondo MD Date Dictated: 03/17/18 1233 Date Transcribed: 03/17/181939 Procedure Rn: Signed FOOT MIN 3 VIEWS Observed: 03/17/2018 Status: F Source: [place] 1:05 PM [facility] REPOSITORY [facility] Imaging Services [address] [address] Foot min 3 Views MR#: [id number] Acct: [id number] Name: KANDY LAUREN ANN Rep #: [id number] : 1960 F 58 From: Rodger Torres DO PCP: Pia Newton MD Status: ADM IN Study: Foot min 3 Views Date of Exam: 03/17/18 Exam# [id number] Ordering Dr: Candi Covington DPM STUDY: X-RAY [...] , CC: NORA Covington; Pia Newton MD Procedure Rn: Signed ANKLE MIN 3 VIEWS Observed: 03/17/2018 Status: F Source: [place] 1:05 PM [facility] REPOSITORY [facility] Imaging Services [address] [place] [address] Ankle min 3 Views MR#: [id number] Acct: [id number] Name: KANDY LAUREN ANN Rep #: [id number] : 1960 F 58 From: David Garcia MD PCP: Pia Newton MD Status: ADM IN Study: Ankle min 3 Views Date of Exam: 03/17/18 Exam# [id number] Ordering Dr: Candi Covington DPM STUDY: X-RAY [...] , CC: NORA Covington; Pia Newton MD Procedure Rn: Signed TIBIA AND FIBULA Observed: 03/17/2018 Status: F Source: [place] 2 VIEWS 1:05 PM [facility] REPOSITORY [facility] Imaging Services [address] [place], [place] [id number] Tibia AND Fibula 2 Views MR#: [id number] Acct: [id number] Name: KANDY LAUREN ANN Rep #: [id number] : 1960 F 58 From: David Garcia MD PCP: Pia Newton MD Status: ADM IN Study: Tibia AND Fibula 2 Views Date of Exam: 03/17/18 Exam# [id number] Ordering Dr: Candi Covington DPM STUDY: X-RAY [...] , CC: NORA Covington; Pia Newton MD Procedure Rn: Signed KNEE 1 OR 2 VIEWS Observed: 03/17/2018 Status: F Source: [place] 12:25 PM [facility] REPOSITORY [facility] Imaging Services [address] [place] [address] Knee 1 or 2 Views MR#: [id number] Acct: [id number] Name: KANDY LAUREN ANN Rep #: [id number] : 1960 F 58 From: David Garcia MD PCP: Pia Newton MD Status: ADM IN Study: Knee 1 or 2 Views Date of Exam: 03/17/18 Exam# [id number] Ordering Dr: Gerson Elizondo MD STUDY: X-RAY [...] CC: Pia Newton MD; Gerson Elizondo MD Procedure Rn: Signed BASIC METABOLIC Collected: 03/17/2018 Status: F Source: ANA PROFILE (BMP) 6:30 AM [facility] REPOSITORY TYPE CODE TESTS RESULT OUT OF [...] GAP 11 Performed By: #### L500.2500 #### [facility] [address] [place], [place], [address] BEDSIDE GLUCOSE Collected: 03/17/2018 Status: F Source: [place] 6:27 AM [facility] REPOSITORY TYPE CODE TESTS RESULT OUT OF REFERENCE UNITS RANGE LAB L501.080 70-110 mg/dL High BEDSIDE GLU 122 Result Comment: MANAGEMENT OF PATIENT CARE PER NURSING PROTOCOL Performed By: #### L501.080 #### [facility] Point of Care [address] [place] [address] BEDSIDE GLUCOSE Collected: 03/16/2018 Status: F Source: [place] 6:57 AM [facility] REPOSITORY TYPE CODE TESTS RESULT OUT OF REFERENCE UNITS RANGE LAB L501.080 70-110 mg/dL High BEDSIDE GLU 131 Result Comment: MANAGEMENT OF PATIENT CARE PER NURSING PROTOCOL Performed By: #### L501.080 #### [facility] Point of Care [address] [place] [address] BASIC METABOLIC Collected: 03/16/2018 Status: F Source: ANA PROFILE (BMP) 5:15 AM [facility] REPOSITORY Order Comment: SPECIMEN OBTAINED FROM LINE [...] GAP 10 Performed By: #### L500.2500 #### [facility] [address] [facility] [place], [place], [address] BEDSIDE GLUCOSE Collected: 03/15/2018 Status: F Source: [place] 6:23 AM [facility] REPOSITORY TYPE CODE TESTS RESULT OUT OF REFERENCE UNITS RANGE LAB L501.080 70-110 mg/dL High BEDSIDE GLU 150 Result Comment: MANAGEMENT OF PATIENT CARE PER NURSING PROTOCOL Performed By: #### L501.080 #### [facility] Point of Care [address] [place], [place] [address] BASIC METABOLIC Collected: 03/15/2018 Status: F Source: [place] PROFILE (BMP) 3:08 AM [facility] REPOSITORY Order Comment: SPECIMEN OBTAINED FROM LINE [...] GAP 8 Performed By: #### L500.2500 #### [facility] [address] [facility] [address] [place], [place], [address] BEDSIDE GLUCOSE Collected: 03/14/2018 Status: F Source: [place] 6:37 AM [facility] REPOSITORY TYPE CODE TESTS RESULT OUT OF REFERENCE UNITS RANGE LAB L501.080 70-110 mg/dL High BEDSIDE GLU 150 Result Comment: MANAGEMENT OF PATIENT CARE PER NURSING PROTOCOL Performed By: #### L501.080 #### [facility] Point of Care [address] [facility] [place] [address] BASIC METABOLIC Collected: 03/14/2018 Status: F Source: [place] PROFILE (BMP) 5:05 AM [facility] REPOSITORY TYPE CODE TESTS RESULT OUT OF [...] GAP 7 Performed By: #### L500.2500 #### [facility] [address] [place], [place], [address] BEDSIDE GLUCOSE Collected: 03/13/2018 Status: F Source: [place] 6:35 AM [facility] REPOSITORY TYPE CODE TESTS RESULT OUT OF REFERENCE UNITS RANGE LAB L501.080 70-110 mg/dL High BEDSIDE GLU 133 Result Comment: MANAGEMENT OF PATIENT CARE PER NURSING PROTOCOL Performed By: #### L501.080 #### [facility] Point of Care [address] [place] [address] BASIC METABOLIC Collected: 03/13/2018 Status: F Source: [place] PROFILE (BMP) 4:55 AM [facility] REPOSITORY Order Comment: SPECIMEN OBTAINED FROM LINE [...] GAP 9 Performed By: #### L500.2500 #### [facility] [address] [facility] [place], [address] OPERATIVE REPORT Observed: 03/12/2018 Status: F Source: [place] 6:21 PM [facility] REPOSITORY [facility] Medical Records Department [address] [place] [address] Operative Report 03/12/18 1722 MR#: [id number] Acct: [id number] Name: KANDY LAUREN ANN Rep #: [id number] : 1960 58 From: Candi Covington DPM PCP: Pia Newton MD Status: DEP [facility] Y Location: [facility] Report of Operation Date of Procedure: 03/10/18 Pre-Operative Diagnosis: L ankle recurrent dislocation, broken hardware, left ankle open fracture Post-Operative Diagnosis: same Surgery/Procedure Performed:: L lower leg adjustment and application of external fixation, revisional tibiotalar arthrodesis, debridement of soft tisse and bone, complex closure of surgical site 9 cm Description of Surgical Findings:: see dictation ballet dancer: Ashutosh Gutierrez Type of Anesthesia:: General Specimen's [...] per ID and cultures/pathology while in the [facility]. Since her previous surgery she developed [...] olive wires were then tensioned appropriately per director dietetics department guidelines. At this time it was noted [...] prepped. [facility]TE Pharm Prophylaxis ordered?: Yes 03/12/18 6720 <Electronically signed by Candi Mychak DPM> Date Candi Covington DPM CC: NORA Covington; Pia Newton MD Signed CBC W/DIFF, AUTOMATED Collected: 03/12/2018 Status: F Source: ANA 7:15 AM [facility] REPOSITORY Order Comment: SPECIMEN OBTAINED FROM LINE [...] 1.51 Performed By: #### L100.0100, L101.9900 #### [facility] [address] [place], [address] ERYTHROCYTE SED RATE Collected: 03/12/2018 Status: F Source: ANA 7:15 AM [facility] REPOSITORY Order Comment: SPECIMEN OBTAINED FROM LINE DRAW TYPE CODE TESTS RESULT OUT OF RANGE REFERENCE UNITS LAB L102.0000 0-30 mm/hr High SED RATE 72 Performed By: #### L100.0100, L101.9900 #### [facility] [address] [place], [address] BASIC METABOLIC Collected: 03/12/2018 Status: F Source: ANA PROFILE (BMP) 7:15 AM [facility] REPOSITORY TYPE CODE TESTS RESULT OUT OF [...] GAP 7 Performed By: #### L500.2500 #### [facility] [address] [place], [address] BEDSIDE GLUCOSE Collected: 03/12/2018 Status: F Source: ANA 6:45 AM [facility] REPOSITORY TYPE CODE TESTS RESULT OUT OF REFERENCE UNITS RANGE LAB L501.080 70-110 mg/dL High BEDSIDE GLU 145 Result Comment: MANAGEMENT OF PATIENT CARE PER NURSING PROTOCOL Performed By: #### L501.080 #### [facility] Point of Care [address] [place] [address] BEDSIDE GLUCOSE Collected: 03/11/2018 Status: F Source: ANA 6:35 AM [facility] REPOSITORY TYPE CODE TESTS RESULT OUT OF REFERENCE UNITS RANGE LAB L501.080 70-110 mg/dL High BEDSIDE GLU 133 Result Comment: MANAGEMENT OF PATIENT CARE PER NURSING PROTOCOL Performed By: #### L501.080 #### [facility] Point of Care [address] [place] [address] HH, HEMOGLOBIN AND Collected: 03/11/2018 Status: F Source: ANA HEMATOCRIT 5:15 AM [facility] REPOSITORY Order Comment: SPECIMEN OBTAINED FROM LINE DRAW TYPE CODE TESTS RESULT OUT OF RANGE REFERENCE UNITS LAB L100.1300 12.0-15.0 g/dl Low HGB 8.3 LAB L100.1400 37-47 % Low HCT 26.4 Performed By: #### L100.0600 #### [facility] [address] [place], [address] BEDSIDE GLUCOSE Collected: 03/10/2018 Status: F Source: ANA 12:20 PM [facility] REPOSITORY TYPE CODE TESTS RESULT OUT OF REFERENCE UNITS RANGE LAB L501.080 70-110 mg/dL High BEDSIDE GLU 127 Result Comment: MANAGEMENT OF PATIENT CARE PER NURSING PROTOCOL Performed By: #### L501.080 #### [facility] Point of Care [address] [place] [address] HH, HEMOGLOBIN AND Collected: 03/10/2018 Status: F Source: ANA HEMATOCRIT 12:00 PM [facility] REPOSITORY Order Comment: Comments: in PACU TYPE CODE TESTS RESULT OUT OF RANGE REFERENCE UNITS LAB L100.1300 12.0-15.0 g/dl Low HGB 7.8 LAB L100.1400 37-47 % Low HCT 25.0 Performed By: #### L100.0600 #### [facility] [address] [place], [address] DISCHARGE INSTRUCTION Observed: 03/10/2018 Status: F Source: [place] 11:58 AM [facility] REPOSITORY [facility] Medical Records Department [address] [place] [address] Instructions for Home/Discharge Instructions 03/10/18 1155 MR#: [id number] Acct: [id number] Name: KANDY LAUREN Rep #: [id number] : 1960 58 From: Candi Covington DPConnie PCP: Pia Newton MD Status: REG COC Discharge Activity: May Not Drive, May Not [...] 03/10/2018 Status: F Source: ANA 11:56 AM [facility] REPOSITORY [facility] Imaging Services [address] [place] [address] Ankle min 3 Views MR#: [id number] Acct: [id number] Name: KANDY LAUREN Rep #: [id number] : 1960 F 58 From: Audi Morillo MD PCP: Pia Newton MD Status: REG [facility] Study: Ankle min 3 Views Date of Exam: 03/10/18 Exam# [id number] Ordering Dr: Candi Covington DPM STUDY: X-RAY [...] , CC: NORA Covington; Pia Newton MD Procedure Rn: Signed FOOT 2 VIEWS Observed: 03/10/2018 Status: F Source: [place] 11:56 AM [facility] REPOSITORY [facility] Imaging Services [address] [place] [address] Foot 2 Views MR#: [id number] Acct: [id number] Name: KANDY ALUREN Rep #: [id number] : 1960 F 58 From: Audi Morillo MD PCP: Pia Newton MD Status: [facility] Study: Foot 2 Views Date of Exam: 03/10/18 Exam# [id number] Ordering Dr: Candi Covington DPM STUDY: X-RAY [...] , CC: NORA Covington; Pia Newton MD Procedure Rn: Signed TIBIA AND FIBULA Observed: 03/10/2018 Status: F Source: [place] 2 VIEWS 11:56 AM [facility] REPOSITORY [facility] Imaging Services [address] [place] [address] Tibia AND Fibula 2 Views MR#: [id number] Acct: [id number] Name: KANDY LAUREN Rep #: [id number] : 1960 F 58 From: Audi Morillo MD PCP: Pia Newton MD Status: [facility] Study: Tibia AND Fibula 2 Views Date of Exam: 03/10/18 Exam# [id number] Ordering Dr: Candi Covington DPM STUDY: X-RAY [...] , CC: NORA Covington; Pia Newton MD Procedure Rn: Signed LIVER PROFILE Collected: 03/10/2018 Status: F Source: ANA 6:42 AM [facility] REPOSITORY Order Comment: Reason for Laboratory Test [...] BILI 0.09 Performed By: #### L500.3400 #### [facility] [address] [place], [address] HEMOGLOBIN A1C Collected: 03/10/2018 Status: F Source: [place] 6:42 AM [facility] REPOSITORY Order Comment: Reason for Laboratory Test PRE-OP TYPE CODE TESTS RESULT OUT OF RANGE REFERENCE UNITS LAB L501.9985 4.2-6.3 % Normal HGB A1C 5.2 Performed By: #### L501.9985 #### [facility] [address] [place], [address] BEDSIDE GLUCOSE Collected: 03/10/2018 Status: F Source: [place] 5:56 AM [facility] REPOSITORY TYPE CODE TESTS RESULT OUT OF REFERENCE UNITS RANGE LAB L501.080 70-110 mg/dL High BEDSIDE GLU 137 Result Comment: MANAGEMENT OF PATIENT CARE PER NURSING PROTOCOL Performed By: #### L501.080 #### [facility] Point of Care [address] [facility] [place] [address] TIBIA AND FIBULA Observed: 03/10/2018 Status: F Source: [place] 2 VIEWS 12:09 AM [facility] REPOSITORY [facility] Imaging Services [address] [place] [address] Tibia AND Fibula 2 Views MR#: [id number] Acct: [id number] Name: KANDY LAUREN ANN Rep #: [id number] : 1960 F 58 From: Mahesh Olivia MD PCP: Pia Newton MD Status: [facility] Study: Tibia AND Fibula 2 Views Date of Exam: 03/10/18 Exam# [id number] Ordering Dr: Candi Covington DPConnie STUDY: X-RAY [...] Mahesh Olivia MD at 11:04 EST Tel [phone], Service support , CC: NORA Covington; Pia Newton MD Procedure Rn: Signed BEDSIDE GLUCOSE Collected: 03/09/2018 Status: F Source: [place] 6:30 AM [facility] REPOSITORY TYPE CODE TESTS RESULT OUT OF REFERENCE UNITS RANGE LAB L501.080 70-110 mg/dL High BEDSIDE GLU 128 Result Comment: MANAGEMENT OF PATIENT CARE PER NURSING PROTOCOL Performed By: #### L501.080 #### [facility] Point of Care [facility] [place] [address] CBC W/DIFF, AUTOMATED Collected: 03/09/2018 Status: F Source: [place] 2:55 AM [facility] REPOSITORY TYPE CODE TESTS RESULT OUT OF [...] 1.70 Performed By: #### L100.0100, L500.4050 #### [facility] [address] [place], [address] COMPREHENSIVE METABOLIC Collected: 03/09/2018 Status: F Source: [facility] 2:55 AM [facility] REPOSITORY TYPE CODE TESTS RESULT OUT OF [...] 9 Performed By: #### L100.0100, L500.4050 #### [facility] [address] [place], [address] PROTHROMBIN TIME W/INR Collected: 03/09/2018 Status: F Source: [place] 2:55 AM [facility] REPOSITORY TYPE CODE TESTS RESULT OUT OF RANGE REFERENCE UNITS LAB L300.4150 11.7-14.9 SECONDS Normal PROTIME 14.1 LAB L300.4200 Normal INR 1.1 Performed By: #### L300.3900 #### [facility] [address] [place], [place], [address] TYPE AND SCREEN Collected: 03/09/2018 Status: F Source: [place] 2:55 AM [facility] REPOSITORY Order Comment: Reason for Type AND Screen/Red Cells: SURGERY Surgery Date: 03/09/18 Other - use comments: left ankle fx Type of Surgery: OTHER TYPE CODE TESTS RESULT OUT OF RANGE REFERENCE UNITS LAB B10.0800 O Normal BLOOD TYPE GEL NEGATIVE LAB B100.4000 Normal Antibody NEGATIVE Screen Performed By: #### B101.7450 #### [facility] [address] [place], [place], [address] RC Collected: 03/09/2018 Status: F Source: [place] 2:55 AM [facility] REPOSITORY TYPE CODE TESTS RESULT OUT OF REFERENCE UNITS RANGE LAB U100.0000 [id number] TRANSFUSED PRODUCT: T AND S with Crossmatch, Red Cells COUNT: 1 Performed By: #### U100.0000 #### [facility] - refer to report for specific site BEDSIDE GLUCOSE Collected: 03/08/2018 Status: F Source: [place] 6:33 AM [facility] REPOSITORY TYPE CODE TESTS RESULT OUT OF REFERENCE UNITS RANGE LAB L501.080 70-110 mg/dL High BEDSIDE GLU 140 Result Comment: MANAGEMENT OF PATIENT CARE PER NURSING PROTOCOL Performed By: #### L501.080 #### [facility] Point of Care [address] [facility] [place] [place], [place] [address] VANCOMYCIN, TROUGH Collected: 03/07/2018 Status: F Source: [place] LEVEL 7:35 PM [facility] REPOSITORY Order Comment: Time Medication is to [...] (Ventilator/Healtcare Associated) -Sepsis PLEASE CONTACT PHARMACY SERVICES (#[id number]) FOR INTERPRETATION OF RESULTS. Performed By: #### L501.8820 #### [facility] [address] [place], [place], [address] BEDSIDE GLUCOSE Collected: 03/07/2018 Status: F Source: [place] 6:39 AM [facility] REPOSITORY TYPE CODE TESTS RESULT OUT OF REFERENCE UNITS RANGE LAB L501.080 70-110 mg/dL High BEDSIDE GLU 135 Result Comment: MANAGEMENT OF PATIENT CARE PER NURSING PROTOCOL Performed By: #### L501.080 #### [facility] Point of Care [address] [place] [address] ANKLE MIN 3 VIEWS Observed: 03/06/2018 Status: F Source: [place] 7:52 PM [facility] REPOSITORY [facility] Imaging Services [address] [place] [address] Ankle min 3 Views MR#: [id number] Acct: [id number] Name: KANDY LAUREN ANN Rep #: [id number] : 1960 F 58 From: Indra Calhoun DO PCP: Pia Newton MD Status: ADM IN Study: Ankle min 3 Views Date of Exam: 03/06/18 Exam# [id number] Ordering Dr: Candi Covington DPM STUDY: X-RAY [...] Indra Calhoun DO at 20:51 EST Tel [phone], Service support , CC: NORA Covington; Pia Newton MD Procedure Rn: Signed TIBIA AND FIBULA Observed: 03/06/2018 Status: F Source: [place] 2 VIEWS 7:52 PM [facility] REPOSITORY [facility] Imaging Services [address] [place] [address] Tibia AND Fibula 2 Views MR#: [id number] Acct: [id number] Name: KANDY LAUREN ANN Rep #: [id number] : 1960 F 58 From: Indra Calhoun DO PCP: Pia Newton MD Status: ADM IN Study: Tibia AND Fibula 2 Views Date of Exam: 03/06/18 Exam# [id number] Ordering Dr: Candi Covington DPM STUDY: X-RAY [...] Indra Calhoun DO at 21:15 EST Tel [phone], Service support , CC: NORA Covington; Pia Newton MD Procedure Rn: Signed PATIENT COMMUNICATION Observed: 03/06/2018 Status: F Source: [place] 5:02 PM [facility] REPOSITORY [facility] Medical Services [address] [place] [address] PATIENT COMMUNICATION 03/06/18 MR#: [id number] Acct: [id number] Name: KANDY LAUREN ANN Rep #: [id number] : 1960 Provider: Ying Ty MD Age/Sex: 58/F Location: [facility] Patient Communication Details: Notify patient that upper [...] LEAD ELECTROCARDIOGRAM Observed: 03/06/2018 Status: F Source: [place] 3:19 PM [facility] REPOSITORY [facility] Cardiovascular Services [address] [place] [address] 12 Lead EKG 03/04/18 1103 MR#: [id number] Acct: [id number] Name: KANDY LAUREN ANN Rep #: [id number] : 1960 58 From: Nathanael Peters MD Attending Dr: Ying Ty MD Status: [facility] Ordering Dr: Ying Ty MD Date: 03/04/18 Location: Sex: F C Admitted: Test Reason : [...] Present Confirmed by NATHANAEL PETERS MD ([id number]), society editor BUTCH PATTERSON ([id number]) on 03/06/2018 3:18:50 PM Referred By: Ying Ty Confirmed By:NATHANAEL PETERS MD 03/06/18 1518 Date Nathanael Peters MD CC: Pia Newton MD; Ying Ty MD Signed BEDSIDE GLUCOSE Collected: 03/06/2018 Status: F Source: ANA 6:52 AM [facility] REPOSITORY TYPE CODE TESTS RESULT OUT OF REFERENCE UNITS RANGE LAB L501.080 70-110 mg/dL High BEDSIDE GLU 129 Result Comment: MANAGEMENT OF PATIENT CARE PER NURSING PROTOCOL Performed By: #### L501.080 #### [facility] Point of Care [address] [place], [place] [id number] HH, HEMOGLOBIN AND Collected: 03/06/2018 Status: F Source: ANA HEMATOCRIT 6:00 AM [facility] REPOSITORY TYPE CODE TESTS RESULT OUT OF RANGE REFERENCE UNITS LAB L100.1300 12.0-15.0 g/dl Low HGB 8.7 LAB L100.1400 37-47 % Low HCT 27.9 Performed By: #### L100.0600 #### [facility] [address] [place], [place], [id number] BEDSIDE GLUCOSE Collected: 03/05/2018 Status: F Source: ANA 6:33 AM [facility] REPOSITORY TYPE CODE TESTS RESULT OUT OF REFERENCE UNITS RANGE LAB L501.080 70-110 mg/dL High BEDSIDE GLU 131 Result Comment: MANAGEMENT OF PATIENT CARE PER NURSING PROTOCOL Performed By: #### L501.080 #### [facility] Point of Care [address] [place] [address] BASIC METABOLIC Collected: 03/05/2018 Status: F Source: ANA PROFILE (BMP) 5:18 AM [facility] REPOSITORY Order Comment: SPECIMEN OBTAINED FROM LINE [...] GAP 10 Performed By: #### L500.2500 #### [facility] [address] [facility] [place], [address] OPERATIVE REPORT - Observed: 03/04/2018 Status: F Source: [place] [facility] 12:27 PM [facility] REPOSITORY [facility] Medical Records Department [address] [place] [address] Operative Report - Endoscopy MR#: [id number] Acct: [id number] Name: KANDY LAUREN ANN Rep #: [id number] : 1960 58 From: Ying Ty MD PCP: Pia Newton MD Status: REG [facility] Patient Name: Kandy Lauren Procedure Date: 03/04/2018 [...] present medications. Procedure Code(s): --- Professional --- 29048, Colonoscopy, flexible; with removal of tumor(s), polyp(s), or other lesion(s) by snare technique Diagnosis Code(s): --- Professional --- K64.9, Unspecified hemorrhoids D12.3, Benign neoplasm of transverse colon (hepatic flexure or splenic flexure) D50.0, Iron deficiency anemia secondary to blood loss (chronic) K57.30, Diverticulosis of large intestine without perforation or abscess without bleeding CPT copyright 2017 [employer] [place] [employer]. All rights reserved. The codes documented in this report are preliminary and upon wool hat finisher review may be revised to meet current compliance requirements. Ying Ty MD 03/04/2018 12:27:48 PM This report has been signed electronically. Number of Addenda: 0 Note Initiated On: 03/04/2018 11:46 AM 03/04/18 1227 Date Ying Ty MD Cosigner Signature: Date (if indicated) CC: Pia Newton MD; Ying Ty MD Date Dictated: 03/04/18 1146 Date Transcribed: Procedure Rn: PEGGY Signed OPERATIVE REPORT - Observed: 03/04/2018 Status: F Source: [place] [facility] 12:22 PM [facility] REPOSITORY [facility] Medical Records Department [address] [place] [address] Operative Report - Endoscopy MR#: [id number] Acct: [id number] Name: KANDY LAUREN ANN Rep #: [id number] : 1960 58 From: Ying Ty MD PCP: Pia Newton MD Status: REG [facility] Patient Name: Kandy Lauren Procedure Date: 03/04/2018 [...] 1 week. - Discharge patient to a alf. Procedure Code(s): --- Professional --- 61965, Esophagogastroduodenoscopy, flexible, transoral; with biopsy, single or multiple Diagnosis Code(s): --- Professional --- K22.8, Other specified diseases of esophagus K21.0, Gastro-esophageal reflux disease with esophagitis K31.89, Other diseases of stomach and duodenum D50.0, Iron deficiency anemia secondary to blood loss (chronic) CPT copyright 2017 [employer] [place] [employer]. All rights reserved. The codes documented in this report are preliminary and upon wool hat finisher review may be revised to meet current compliance requirements. Ying Ty MD 03/04/2018 12:21:51 PM This report has been signed electronically. Number of Addenda: 0 Note Initiated On: 03/04/2018 10:49 AM 03/04/18 1222 Date Ying Ty MD Cosigner Signature: Date (if indicated) CC: Pia Newton MD; Ying Ty MD Date Dictated: 03/04/18 1049 Date Transcribed: Procedure Rn: PEGGY Signed COLON BIOPSY (CHOOSE Observed: 03/04/2018 Status: F Source: [facility]) 11:00 AM [facility] REPOSITORY Patient: KANDY LAUREN : 1960 (58/F) Acct Num: [id number] Phys: Ying Ty MD Unit Num: [id number] Loc: EN Specimen: [id number] Received: 03/04/18 - 1517 Spec Type: COLON BX TISSUES 1 TISSUES: A. Gastric mucous membrane B. Esophageal mucous membrane C. Transverse colon COMMENT A. The results of immunohistochemistry for Helicobacter pylori will be reported separately ([id number]). B. Alcian blue/PAS stain with matched control [...] one cassette. / RY:jason 03/05/18 TC:1 CPT: 32898 x3, 35597, [address] HEADER OPERATION: Colonoscopy, EGD ([facility]) PRE-OP DIAGNOSIS: Anemia, heme-positive stools, melena TISSUE [...] on file> Performed By: #### PCOLBX #### [facility] [address] [place], [address] IMMUNOHISTOCHEMISTRY Observed: 03/04/2018 Status: F Source: ANA 11:00 AM [facility] REPOSITORY Patient: KANDY LAUREN : 1960 (58/F) Acct Num: [id number] Phys: Cebul MD,Ying Unit Num: [id number] Loc: EN Specimen: [id number] Received: 03/05/18908 Spec Type: IMMUNO TISSUES 1 TISSUES: A. Stomach, NOS SPECIMEN INFORMATION: Tissue Source: A - Antrum biopsy Clinical Info: Anemia, heme-positive stools, melena Specimen Number: [id number] CPT code: 92376 METHODOLOGY: Deparaffinized sections of prefer/formalin-fixed tissue or [...] developed and their performance characteristics determined by [facility]. They may not have been cleared or approved by the U.S. Food and Drug Administration. The FDA has determined that such clearance or approval is not necessary. INTERPRETATION: A. Antrum, biopsy: Negative for Helicobacter pylori organisms. SJ:jason 03/09/18 PHYSICIAN AND INSTITUTION [address] [address] Signed Sid Holloway 03/09/18 <signature on file> Performed By: #### PIMM #### [facility] [address] [place] [address], [address] BEDSIDE GLUCOSE Collected: 03/04/2018 Status: F Source: [place] 10:43 AM [facility] REPOSITORY TYPE CODE TESTS RESULT OUT OF RANGE REFERENCE UNITS LAB L501.080 70-110 mg/dL Normal BEDSIDE GLU 93 Result Comment: MANAGEMENT OF PATIENT CARE PER NURSING PROTOCOL Performed By: #### L501.080 #### [facility] Point of Care [address] [place] [address] BEDSIDE GLUCOSE Collected: 03/04/2018 Status: F Source: [place] 6:24 AM [facility] REPOSITORY TYPE CODE TESTS RESULT OUT OF RANGE REFERENCE UNITS LAB L501.080 70-110 mg/dL Normal BEDSIDE GLU 87 Result Comment: MANAGEMENT OF PATIENT CARE PER NURSING PROTOCOL Performed By: #### L501.080 #### [facility] Point of Care [address] [place] [address] VANCOMYCIN, TROUGH Collected: 03/03/2018 Status: F Source: ANA LEVEL 7:15 AM [facility] REPOSITORY Order Comment: Comments: Draw 30 min [...] (Ventilator/Healtcare Associated) -Sepsis PLEASE CONTACT PHARMACY SERVICES (#[id number]) FOR INTERPRETATION OF RESULTS. Performed By: #### L501.8820 #### [facility] [address] [facility] [address] BEDSIDE GLUCOSE Collected: 03/03/2018 Status: F Source: ANA 6:34 AM [facility] REPOSITORY TYPE CODE TESTS RESULT OUT OF RANGE REFERENCE UNITS LAB L501.080 70-110 mg/dL Normal BEDSIDE GLU 103 Result Comment: MANAGEMENT OF PATIENT CARE PER NURSING PROTOCOL Performed By: #### L501.080 #### [facility] Point of Care [address] [place] [address] OPERATIVE REPORT Observed: 03/02/2018 Status: F Source: ANA 1:17 PM [facility] REPOSITORY [facility] Medical Records Department [address] [facility] [place] [address] Operative Report 03/02/18 1219 MR#: [id number] Acct: [id number] Name: KANDY LAUREN ANN Rep #: [id number] : 1960 58 From: Candi Covington DPM PCP: Pia Newton MD Status: DEP [facility] Y Location: EN Report of Operation Date [...] instrument counts were found to be correct. ballet dancer: Ashutosh Gutierrez Type of Anesthesia:: General Specimen's [...] 03/02/2018 Status: F Source: ANA 6:37 AM [facility] REPOSITORY TYPE CODE TESTS RESULT OUT OF RANGE REFERENCE UNITS LAB L501.080 70-110 mg/dL Normal BEDSIDE GLU 109 Result Comment: MANAGEMENT OF PATIENT CARE PER NURSING PROTOCOL Performed By: #### L501.080 #### [facility] Point of Care [address] [place] [address] BEDSIDE GLUCOSE Collected: 03/01/2018 Status: F Source: ANA 7:51 AM [facility] REPOSITORY TYPE CODE TESTS RESULT OUT OF RANGE REFERENCE UNITS LAB L501.080 70-110 mg/dL Normal BEDSIDE GLU 99 Result Comment: MANAGEMENT OF PATIENT CARE PER NURSING PROTOCOL Performed By: #### L501.080 #### [facility] Point of Care [address] [place] [address] VANCOMYCIN, RANDOM Collected: 02/27/2018 Status: F Source: ANA LEVEL 9:15 PM [facility] REPOSITORY TYPE CODE TESTS RESULT OUT OF REFERENCE UNITS RANGE LAB L501.8850 0.0-15.0 ug/mL High VANCO, RANDOM 15.8 Result Comment: VANCOMYCIN STANDARD DRUG THERAPY: CRITICAL VALUE IS > 15.0 mg/L VANCOMYCIN HIGH INTENSITY THERAPY: CRITICAL VALUE IS > 20.0 mg/L PLEASE CONTACT PHARMACY SERVICES (#0802) FOR INTERPRETATION OF RESULTS. THIS RESULT DOES NOT REPRESENT A PEAK OR TROUGH LEVEL FOR THIS DRUG. Performed By: #### L501.8850 #### [facility] [address] [place], [address] 12 LEAD ELECTROCARDIOGRAM Observed: 02/27/2018 Status: F Source: ANA 9:23 AM [facility] REPOSITORY [facility] Cardiovascular Services [address] [place] [address] 12 Lead EKG 02/19/182051 MR#: [id number] Acct: [id number] Name: KANDY LAUREN ANN Rep #: [id number] : 1960 58 From: Nathanael Peters MD Attending Dr: Mikhail SKINNER,Gerson Watson Status: DEP [facility] Ordering Dr: Tabitha Gilliam Date: 02/19/18 Location: [facility] Sex: F C Admitted: Test Reason : [...] ECG Confirmed by NATHANAEL PETERS MD ([id number]), society editor ANA ROSA BAEZA ([id number]) on 02/23/2018 2:26:07 PM Referred By: Gerson Elizondo Confirmed By:NATHANAEL PETERS MD 02/23/18 1426 Date Nathanael Peters MD CC: Tabitha Gilliam; Pia Newton MD; Gerson Elizondo MD Signed BEDSIDE GLUCOSE Collected: 02/27/2018 Status: F Source: ANA 6:49 AM [facility] REPOSITORY TYPE CODE TESTS RESULT OUT OF RANGE REFERENCE UNITS LAB L501.080 70-110 mg/dL Normal BEDSIDE GLU 95 Result Comment: MANAGEMENT OF PATIENT CARE PER NURSING PROTOCOL Performed By: #### L501.080 #### [facility] Point of Care [address] [place] [address] VANCOMYCIN, TROUGH Collected: 02/26/2018 Status: F Source: ANA LEVEL 8:39 PM [facility] REPOSITORY Order Comment: Time Medication is to [...] (Ventilator/Healtcare Associated) -Sepsis PLEASE CONTACT PHARMACY SERVICES (#3765) FOR INTERPRETATION OF RESULTS. Performed By: #### L501.8820 #### [facility] [address] [place], [place], [address] DISCHARGE INSTRUCTION Observed: 02/26/2018 Status: F Source: ANA 2:34 PM [facility] REPOSITORY [facility] Medical Records Department [facility] [place] [address] Instructions for Home/Discharge Instructions 02/26/18 1432 MR#: [id number] Acct: [id number] Name: KANDY LAUREN ANN Rep #: [id number] : 1960 58 From: Candi Covington DPM PCP: Pia Newton MD Status: REG [facility] Discharge Activity: May Not Drive, May not [...] or concerns Proposed Discharge Date: 02/26/18 02/26/18 8944 <Electronically signed by Candi Covington DPM> Date Candi Covington DPM CC: Pia Newton MD; Ying Ty MD CONSULTATION Observed: 02/26/2018 Status: F Source: [place] 2:33 PM [facility] REPOSITORY [facility] Medical Records Department [address] [place] [address] Consultation 02/25/18920 MR#: [id number] Acct: [id number] Name: KANDY LAUREN Rep #: [id number] : 1960 58 From: Viviane Aranda PA-C PCP: Pia Newton MD Status: ADM IN Location: [facility] TCU14-1 <Ying Ty - Last Filed: 02/25/18 09:49> [...] Culture - Final Blood Culture (Wb) - [facility] No growth in 5 days. 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 Ying Ty M.D., F.A.C.S. <Viviane Aranda - Last Filed: 02/25/18 12:10> Problem List (1) Anemia Status: Acute Reason for Consult Date of Consultation: 02/25/18 Reason for Consultation: Anemia. Positive occult blood test. History of Present Illness: The patient is a 58 year old F who had fallen in her bathroom in early October and had a compound fracture of the left distal tibia. Patient had initial surgery at [facility] which was complicated by an infected hardware which had to be removed. 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 She noted being discharged to a alf in [place] which then she developed C Diff and had fallen again at the alf. Patient was transferred back up to [place]. Where she was treated for the C [...] was taking large amounts of OxyContin at [facility]. She notes currently she is taking Tylenol. [...] abortions. Psychiatric History: No pertinent psych hx BUTTON RECLAIMER History: No pertinent BUTTON RECLAIMER history Lives: Alone Smoking Status: Former smoker [...] Culture - Final Blood Culture (Wb) - [facility] No growth in 5 days. Laboratory Tests [...] records. Code Visit Office Visits / Consults: 39241 IP Consult L3 02/25/18 1211 <Electronically signed [...] 3 VIEWS Observed: 02/26/2018 Status: F Source: [place] 2:33 [facility] REPOSITORY [facility] Imaging Services [address] [place] [address] Foot min 3 Views MR#: [id number] Acct: [id number] Name: KANDY LAUREN Rep #: [id number] : 1960 F 58 From: Indra Calhoun DO PCP: Pia Newton MD Status: [facility] Study: Foot min 3 Views Date of Exam: 02/26/18 Exam# [id number] Ordering Dr: Candi Covington DPM STUDY: X-RAY - RIGHT FOOT CLINICAL: Female, [...] Indra Calhoun DO at 16:11 EST Tel [phone], Service support , CC: NORA Covington; Pia Newton MD Procedure Rn: Signed ANKLE 2 VIEWS Observed: 02/26/2018 Status: F Source: ANA 2:28 PM [facility] REPOSITORY [facility] Imaging Services [address] [place] [address] Ankle 2 Views MR#: [id number] Acct: [id number] Name: KANDY LAUREN Rep #: [id number] : 1960 F 58 From: Indra Calhoun DO PCP: Pia Newton MD Status: [facility] Study: Ankle 2 Views Date of Exam: 02/26/18 Exam# [id number] Ordering Dr: Candi Covington DPM STUDY: X-RAY [...] Indra Calhoun DO at 16:33 EST Tel [phone], Service support , CC: NORA Newton MD Procedure Rn: Signed TIBIA AND FIBULA Observed: 02/26/2018 Status: F Source: ANA 2 VIEWS 2:28 PM [facility] REPOSITORY [facility] Imaging Services [address] [place] [address] Tibia AND Fibula 2 Views MR#: [id number] Acct: [id number] Name: KANDY LAUREN Rep #: [id number] : 1960 F 58 From: Indra Calhoun DO PCP: Pia Newton MD Status: [facility] Study: Tibia AND Fibula 2 Views Date of Exam: 02/26/18 Exam# [id number] Ordering Dr: Candi Covington DPM STUDY: X-RAY [...] Indra Calhoun DO at 16:36 EST Tel [phone], Service support , CC: NORA Covington; Pia Newton MD Procedure Rn: Signed FOOT MIN 3 VIEWS Observed: 02/26/2018 Status: F Source: ANA 2:28 PM [facility] REPOSITORY [facility] Imaging Services [address] [place] [address] Foot min 3 Views MR#: [id number] Acct: [id number] Name: KANDY LAUREN ANN Rep #: [id number] : 1960 F 58 From: Indra Calhoun DO PCP: Pia Newton MD Status: [facility] Study: Foot min 3 Views Date of Exam: 02/26/18 Exam# [id number] Ordering Dr: Candi Covington DPM STUDY: X-RAY [...] Indra Calhoun DO at 19:08 EST Tel [phone], Service support , CC: NORA Covington; Pia Newton MD Procedure Rn: Signed BEDSIDE GLUCOSE Collected: 02/26/2018 Status: F Source: [place]NA 6:55 AM [facility] REPOSITORY TYPE CODE TESTS RESULT OUT OF RANGE REFERENCE UNITS LAB L501.080 70-110 mg/dL Normal BEDSIDE GLU 102 Result Comment: MANAGEMENT OF PATIENT CARE PER NURSING PROTOCOL Performed By: #### L501.080 #### [facility] Point of Care [address] [place] [address] ANKLE MIN 3 VIEWS Observed: 02/26/2018 Status: F Source: [place] 4:21 AM [facility] REPOSITORY [facility] [place] [address] Ankle min 3 Views MR#: [id number] Acct: [id number] Name: KANDY LAUREN Rep #: [id number] : 1960 F 58 From: Audi Ndiaye MD PCP: Pia Newton MD Status: [facility] Study: Ankle min 3 Views Date of Exam: 02/26/18 Exam# [id number] Ordering Dr: Candi Covington DPM STUDY: X-RAY [...] , CC: NORA Covington; Pia Newton MD Procedure Rn: Signed CBC W/DIFF, AUTOMATED Collected: 02/26/2018 Status: F Source: [place] 4:05 AM [facility] REPOSITORY TYPE CODE TESTS RESULT OUT OF [...] 1.79 Performed By: #### L100.0100, L101.9900 #### [facility] [address] [place], [place], [address] ERYTHROCYTE SED RATE Collected: 02/26/2018 Status: F Source: [place] 4:05 AM [facility] REPOSITORY TYPE CODE TESTS RESULT OUT OF RANGE REFERENCE UNITS LAB L102.0000 0-30 mm/hr High SED RATE 89 Performed By: #### L100.0100, L101.9900 #### [facility] [address] [facility] [place], [address] Observed: 02/26/2018 Status: F Source: [place] CULTURE, DEEP WOUND 12:00 AM [facility] REPOSITORY Order Date: 10/30/16 Results called on 03/02/18-899 by ROBIN GUTIERREZ AT [phone]. Comments: Debrided Bone and Tissue Left Medial Ankle Gram Stain Gram Stain 4+ Red Blood Cells 1+ White Blood Cells No organisms seen Wound Culture Copy of report sent to Infection Control Printer [id number] 03/02/18 3833 CARLOS ASANDIALEXISMellissa. ORGANISM 1: Meth. resistant Staph. aureus Amount [...] 1 S (NF) indicates non-formulary drug at [facility]. Approval by Infectious Disease Specialist required before non-formulary drugs may be ordered and/or dispensed. * CLSI guidelines does not recommend testing of cephalosporins. This interpretation is deduced from Beta-lactam/penicillin results. Cult, Anaerobic No growth in 5 days. Performed By: #### M100.1500, M100.3880, M600.1900 #### [facility] [address] [place], [address] AFB Observed: 02/26/2018 Status: F Source: [place] CULT/SMEAR [id number] 12:00 AM [facility] REPOSITORY Comments: Debrided Bone and Tissue Left Medial Ankle Is this test to exclude patient from TB Isolation? N AFB Smear/Fluor TESTING PERFORMED AT [facility]. ORIGINAL REPORT ON FILE IN LAB CONTAINS ADDITIONAL TEST SITE INFORMATION. Smear, Acid Fast Tissue Grinding Smear: Negative AFB Cult [facility] ORIGINAL REPORT ON FILE IN LAB CONTAINS ADDITIONAL TEST SITE INFORMATION. Culture, Acid Fast NO ACID-FAST BACILLI ISOLATED AFTER 6 WEEKS. Performed By: #### M100.1500, M100.3880, M600.1900 #### [place] [facility] [address] [place], [address] Observed: 02/26/2018 Status: F Source: [facility] W/ 12:00 [facility] [id number] REPOSITORY Comments: Debrided Bone and Tissue Left Medial Ankle Is this test to exclude patient from TB Isolation? N Cu,Fxmfis4635 TESTING PERFORMED AT [facility]. ORIGINAL REPORT ON FILE IN LAB CONTAINS ADDITIONAL TEST SITE INFORMATION. CUF No yeast or mold isolated after [address] TESTING PERFORMED AT [facility]. ORIGINAL REPORT ON FILE IN LAB CONTAINS ADDITIONAL TEST SITE INFORMATION. Fungus Stain No yeast or mold observed. Performed By: #### M100.1500, M100.3880, M600.1900 #### [facility] [address] [place], [address] BONE (FX/NONFRACTURE) Observed: 02/26/2018 Status: F Source: [place] 12:00 AM [facility] REPOSITORY Patient: KANDY LAUREN : 1960 (58/F) Acct Num: [id number] Phys: Candi Covington DPM Unit Num: [id number] Loc: EN Specimen: [id number] Received: 02/26/18 - 1357 Spec Type: Bone TISSUES 1 TISSUES: Ankle, NOS GROSS DESCRIPTION Received in fixative is one container labeled with the patient's name and designated debrided bone and tissue left medial ankle. The specimen consists of a piece of pérez bone measuring 0.6 x 0.5 x 0.2 cm. The entire specimen is submitted in one cassette after decalcification. / JOSE LUIS:jason 02/26/18 TC:2 CPT: 87151, [address] HEADER OPERATION: Left lower extremity soft tissue and bone debridement PRE-OP DIAGNOSIS: Open left ankle fracture TISSUE SUBMITTED: Debrided bone and tissue left medial ankle MICROSCOPIC DESCRIPTION Slides are reviewed. MICROSCOPIC DIAGNOSIS Bone and soft tissue, left medial ankle, biopsy: A piece of bone with acute osteomyelitis. SJ:jason 03/04/18 Signed Sid Holloway 03/04/18 <signature on file> Performed By: #### PBON #### [facility] [address] [place], [address] TYPE AND SCREEN Collected: 02/25/2018 Status: F Source: [place] 8:56 PM [facility] REPOSITORY Order Comment: Reason for Type AND Screen/Red Cells: ANEMIA Surgery Date: 02/26/18 TYPE CODE TESTS RESULT OUT OF RANGE REFERENCE UNITS LAB B10.0800 O Normal BLOOD TYPE GEL NEGATIVE LAB B100.4000 Normal Antibody NEGATIVE Screen Performed By: #### L100.0100, B101.7450 #### [facility] [address] [place], [address] BEDSIDE GLUCOSE Collected: 02/25/2018 Status: F Source: [place] 7:31 AM [facility] REPOSITORY TYPE CODE TESTS RESULT OUT OF RANGE REFERENCE UNITS LAB L501.080 70-110 mg/dL Normal BEDSIDE GLU 108 Result Comment: Dr Orders Followed MANAGEMENT OF PATIENT CARE PER NURSING PROTOCOL Performed By: #### L501.080 #### [facility] Point of Care [address] [facility] [place] [address] PROTHROMBIN TIME W/INR Collected: 02/25/2018 Status: F Source: [place] 5:30 AM [facility] REPOSITORY Order Comment: SPECIMEN OBTAINED FROM LINE DRAW TYPE CODE TESTS RESULT OUT OF RANGE REFERENCE UNITS LAB L300.4150 11.7-14.9 SECONDS High PROTIME 15.6 LAB L300.4200 Normal INR 1.2 Performed By: #### L300.3900, L500.4050 #### [facility] [address] [place], [address] COMPREHENSIVE METABOLIC Collected: 02/25/2018 Status: F Source: [facility] 5:30 AM [facility] REPOSITORY Order Comment: SPECIMEN OBTAINED FROM LINE [...] 8 Performed By: #### L300.3900, L500.4050 #### [facility] [address] [place], [address] CBC W/DIFF, AUTOMATED Collected: 02/25/2018 Status: F Source: [place] 5:30 AM [facility] REPOSITORY Order Comment: SPECIMEN OBTAINED FROM LINE [...] Absolute Lymph 2.24 Performed By: #### L100.0100, B101.7450 #### [facility] [address] [place], [place], [address] VITAMIN D 1,25-DIHYDROXY Collected: 02/25/2018 Status: F Source: [place] 5:30 AM [facility] REPOSITORY Order Comment: SPECIMEN OBTAINED FROM LINE DRAW TYPE CODE TESTS RESULT OUT OF RANGE REFERENCE UNITS LAB L3300.0960 19.9-79.3 pg/mL Low VITD 1,25 7.9 47904 Result Comment: Performed at: [facility] [id number] Roller Embosser: Elva Santamaria MD, Phone: [phone] Performed By: #### L3300.0960 #### [facility] (refer to report for specific site) refer to report for address and phone number VANCOMYCIN, TROUGH Collected: 02/23/2018 Status: F Source: [place] 8:41 PM [facility] REPOSITORY Order Comment: Comments: Please draw 02/23 [...] (Ventilator/Healtcare Associated) -Sepsis PLEASE CONTACT PHARMACY SERVICES (#[id number]) FOR INTERPRETATION OF RESULTS. Performed By: #### L501.8820 #### [facility] [address] [place], [address] Observed: 02/23/2018 Status: F Source: [place] STOOL OCCULT BLOOD 8:15 PM [facility] IFOB REPOSITORY STOB iFOB Occult Blood Positive ORGANISM 1: OCCULT BLOOD POSITIVE Performed By: #### M100.7900 #### [facility] [place], [address] BEDSIDE GLUCOSE Collected: 02/23/2018 Status: F Source: [place] 6:29 AM [facility] REPOSITORY TYPE CODE TESTS RESULT OUT OF REFERENCE UNITS RANGE LAB L501.080 70-110 mg/dL High BEDSIDE GLU 120 Result Comment: MANAGEMENT OF PATIENT CARE PER NURSING PROTOCOL Performed By: #### L501.080 #### [facility] Point of Care [address] [place] [address] CONSULTATION Observed: 02/22/2018 Status: F Source: [place] 6:20 PM [facility] REPOSITORY [facility] Medical Records Department [address] [place] [address] Consultation 02/18/18 1855 MR#: [id number] Acct: [id number] Name: KANDY LAUREN ANN Rep #: [id number] : 1960 58 From: Bandar Ray MD PCP: Pia Newton MD Status: ADM IN Y Location: [facility] [id number] Reason for Consult Date of Consultation: 02/18/18 Reason for Consultation: Soft tissue mass right temporal parietal scalp. REFERRING PHYSICIAN: Dr. Elizondo. ELECTRONIC SPECIALIST: Dr. Ray. History of Present Illness: The patient is a 58 year old F who has been admitted for a complex left ankle fracture that has required placement of an external fixator. She is undergoing wound care and IV antibiotics in an effort for limb salvage. While [facility] it was noted she had a large [...] PRN Allopurinol (Zyloprim) 300 mg PO DAILYCM [facility] Amitriptyline HCl (Elavil) 75 mg PO QHS [facility] Atenolol (Tenormin (Beta Feliberto)) 50 mg PO DAILY [facility] Atorvastatin Calcium (Lipitor) 40 mg PO QHS [facility] Bisacodyl (Dulcolax) 10 mg PO DAILY PRN Calamine/Phenol (Calmoseptine Ointment) 1 applic TOPICAL 0600,2200 [facility]; Protocol Cholecalciferol (Vitamin D) 2,000 unit PO DAILY [facility] Colchicine (Colchicine) 0.6 mg PO QODAY@0800 [facility] Cyclobenzaprine HCl (Flexeril) 10 mg PO TID PRN Diltiazem HCl (Cardizem Cd) 180 mg PO DAILY [facility] Doxycycline Monohydrate (Doxycycline) 100 mg PO BID [facility] Enoxaparin Sodium (Lovenox) 30 mg SC DAILY@0600 [facility] Fluticasone Propionate (Flonase Nasal [place]) 2 spray NASAL DAILY PRN Gabapentin (Neurontin) 300 mg PO TID [facility] Heparin Sodium (Beef Lung) () 50 units IV UD PRN Hydroxychloroquine Sulfate (Plaquenil) 200 mg PO DAILYCM [facility] Cefepime HCl 2 gm/ Sodium (Chloride) 100 mls @ 200 mls/hr IV Q12@1000,2200 [facility] Vancomycin IV Pharmacy to Dose (1,250 ea/ Sodium Chloride) 500 mls @ 250 mls/hr IV PRN PRN; Protocol Vancomycin HCl 750 mg/ Sodium (Chloride) 265 mls @ 250 mls/hr IV Q24H [facility] Linagliptin (Tradjenta) 5 mg PO DAILY [facility] Multi-Ingredient Cream (Eucerin) 1 applic TOPICAL 0600,2200 [facility]; Protocol Multivitamins/Minerals (Multivitamin With Minerals) 1 tablet PO DAILY@0800 [facility] Nutritional Formula (Pancho - [place] Flavor) 1 packet PO BIDCM [facility] Nutritional Formula (Lactose Free) (Glucerna Shake) 120 ml PO TIDCM [facility] Nystatin (Mycostatin Powder) 1 applic TOPICAL 0600,2200 [facility]; Protocol Nystatin (Nystatin) 500,000 unit PO 4X/DAY [facility] Rasdi-5-Hjdu Ethyl Esters (Lovaza) 1 gm PO DAILY [facility] Ondansetron HCl (Zofran Odt) 4 mg PO Q6H PRN Oxycodone HCl (Oxyir) 5 mg PO Q4H PRN Pantoprazole Sodium (Protonix) 40 mg PO DAILY [facility] Polyethylene Glycol (Miralax) 17 gm PO DAILY [facility] Polysaccharide Iron Complex (Ferrex 150) 150 mg PO DAILYCM [facility] Pramipexole Dihydrochloride (Mirapex) 0.25 mg PO DAILY PRN Senna/Docusate Sodium (Senokot-S, Loly-Colace) 2 tablet PO BID [facility] Tamsulosin HCl (Flomax) 0.4 mg PO DAILY@1730 [facility] Tramadol HCl (Ultram) 50 mg PO TID [...] abortions. 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 Code Visit Inpatient E AND M: 53372 Init Hosp L2 - ICD-10 - R22.0, L65.9, S82.892B, E11.9, Z87.891 02/22/18 1820 <Electronically signed by Bandar Ray MD> Date Bandar Ray MD Cosigner Signature (if applicable): Date CC: NORA Covington; Pia Newton MD; Bandar Ray MD; Nellie Quezada DPM; Ying Bejarano MD; Gerson Elizondo MD Signed OPERATIVE REPORT Observed: 02/22/2018 Status: F Source: [place] 12:27 PM [facility] REPOSITORY [facility] Medical Records Department [address] [place] [address] Operative Report 02/22/18 1159 MR#: [id number] Acct: [id number] Name: KANDY LAUREN ANN Rep #: [id number] : 1960 58 From: Candi Covington DPM PCP: Pia Newton MD Status: REG [facility] Y Location: 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: NOT,DEFINED Type of Anesthesia:: General Specimen's removed: [...] currently in [facility] between procedures to aid in therapy and [...] Covington DPM> Date Candi Covington DPM CC: DPConnie Covington; Pia Newton MD Signed BEDSIDE GLUCOSE Collected: 02/22/2018 Status: F Source: [place] 6:33 AM [facility] REPOSITORY TYPE CODE TESTS RESULT OUT OF RANGE REFERENCE UNITS LAB L501.080 70-110 mg/dL Normal BEDSIDE GLU 86 Result Comment: MANAGEMENT OF PATIENT CARE PER NURSING PROTOCOL Performed By: #### L501.080 #### [facility] Point of Care [address] [place], [place] [address] VANCOMYCIN, RANDOM Collected: 02/22/2018 Status: F Source: [place] 6:00 AM [facility] REPOSITORY TYPE CODE TESTS RESULT OUT OF RANGE REFERENCE UNITS LAB L501.8850 0.0-15.0 ug/mL Normal VANCO, RANDOM 13.5 Result Comment: VANCOMYCIN STANDARD DRUG THERAPY: CRITICAL VALUE IS > 15.0 mg/L VANCOMYCIN HIGH INTENSITY THERAPY: CRITICAL VALUE IS > 20.0 mg/L PLEASE CONTACT PHARMACY SERVICES (#[id number]) FOR INTERPRETATION OF RESULTS. THIS RESULT DOES NOT REPRESENT A PEAK OR TROUGH LEVEL FOR THIS DRUG. Performed By: #### L501.8850 #### [facility] [address] [place], [address] VANCOMYCIN, RANDOM Collected: 02/21/2018 Status: F Source: [place] 7:00 AM [facility] REPOSITORY TYPE CODE TESTS RESULT OUT OF REFERENCE UNITS RANGE LAB L501.8850 0.0-15.0 ug/mL High VANCO, RANDOM 17.5 Result Comment: VANCOMYCIN STANDARD DRUG THERAPY: CRITICAL VALUE IS > 15.0 mg/L VANCOMYCIN HIGH INTENSITY THERAPY: CRITICAL VALUE IS > 20.0 mg/L PLEASE CONTACT PHARMACY SERVICES (#[id number]) FOR INTERPRETATION OF RESULTS. THIS RESULT DOES NOT REPRESENT A PEAK OR TROUGH LEVEL FOR THIS DRUG. Performed By: #### L501.8850 #### [facility] [address] [place], [address] BEDSIDE GLUCOSE Collected: 02/21/2018 Status: F Source: [place] 6:48 AM [facility] REPOSITORY TYPE CODE TESTS RESULT OUT OF REFERENCE UNITS RANGE LAB L501.080 70-110 mg/dL High BEDSIDE GLU 117 Result Comment: MANAGEMENT OF PATIENT CARE PER NURSING PROTOCOL Performed By: #### L501.080 #### [facility] Point of Care [address] [place], [place] [address] BEDSIDE GLUCOSE Collected: 02/21/2018 Status: F Source: [place] 4:32 AM [facility] REPOSITORY TYPE CODE TESTS RESULT OUT OF RANGE REFERENCE UNITS LAB L501.080 70-110 mg/dL Normal BEDSIDE GLU 102 Result Comment: MANAGEMENT OF PATIENT CARE PER NURSING PROTOCOL Performed By: #### L501.080 #### [facility] Point of Care [address] [place] [address] VANCOMYCIN, RANDOM Collected: 02/20/2018 Status: F Source: [place] 11:00 AM [facility] REPOSITORY TYPE CODE TESTS RESULT OUT OF REFERENCE UNITS RANGE LAB L501.8850 0.0-15.0 ug/mL High VANCO, RANDOM 19.3 Result Comment: VANCOMYCIN STANDARD DRUG THERAPY: CRITICAL VALUE IS > 15.0 mg/L VANCOMYCIN HIGH INTENSITY THERAPY: CRITICAL VALUE IS > 20.0 mg/L PLEASE CONTACT PHARMACY SERVICES (#[id number]) FOR INTERPRETATION OF RESULTS. THIS RESULT DOES NOT REPRESENT A PEAK OR TROUGH LEVEL FOR THIS DRUG. Performed By: #### L501.8850 #### [facility] [address] [place], [place], [address] BEDSIDE GLUCOSE Collected: 02/20/2018 Status: F Source: [place] 7:40 AM [facility] REPOSITORY TYPE CODE TESTS RESULT OUT OF REFERENCE UNITS RANGE LAB L501.080 70-110 mg/dL High BEDSIDE GLU 121 Result Comment: MANAGEMENT OF PATIENT CARE PER NURSING PROTOCOL Performed By: #### L501.080 #### [facility] Point of Care [address] [place], [place] [address] CBC W/DIFF, AUTOMATED Collected: 02/20/2018 Status: F Source: [place] 5:30 AM [facility] REPOSITORY TYPE CODE TESTS RESULT OUT OF [...] Lymph 1.32 Performed By: #### L100.0100 #### [facility] [address] [facility] [place], [place], [address] BASIC METABOLIC Collected: 02/20/2018 Status: F Source: [place] PROFILE (BMP) 5:30 AM [facility] REPOSITORY TYPE CODE TESTS RESULT OUT OF [...] GAP 13 Performed By: #### L500.2500 #### [facility] [address] [facility] [address] [place], [place], [address] VANCOMYCIN, TROUGH Collected: 02/19/2018 Status: F Source: [place] 9:15 PM [facility] REPOSITORY Order Comment: Time Medication is to [...] (Ventilator/Healtcare Associated) -Sepsis PLEASE CONTACT PHARMACY SERVICES (#[id number]) FOR INTERPRETATION OF RESULTS. Performed By: #### L501.8820 #### [facility] [address] [facility] [place], [place], [address] VENOUS DUPLEX LOWER Observed: 02/19/2018 Status: F Source: [place] EXTREMITY 1:53 PM [facility] REPOSITORY [facility] Cardiovascular Services [address] [place] [address] Venous Duplex US, Unilateral 02/17/18 1551 MR#: [id number] Acct: [id number] Name: KANDY LAUREN ANN Rep #: [id number] : 1960 58 From: Fidel Corona MD Attending Dr: Mikhail SKINNER,Gerson [facility] Status: ADM IN Ordering Dr: Candi Covington DPM Date: 02/17/18 Location: TCU Sex: F C Admitted: 01/21/18 Reason For [...] Date Fidel Corona MD CC: NORA Covington; Pia Newton MD; Gerson Elizondo MD Date Dictated: 02/17/18 1551 Date Transcribed: 02/19/18 1352 Procedure Rn: Signed TYPE AND SCREEN Collected: 02/19/2018 Status: P Source: [place] 11:13 AM [facility] REPOSITORY Order Comment: CMV NEG? N Number [...] NEGATIVE Screen Performed By: #### B101.7450 #### [facility] [address] [place], [address] TYPE AND SCREEN Collected: 02/19/2018 Status: F Source: [place]NA 11:13 AM [facility] REPOSITORY Order Comment: CMV NEG? N Number [...] NEGATIVE Screen Performed By: #### B101.7450 #### [facility] [address] [place], [place] [address] [place], [address] RC Collected: 02/19/2018 Status: F Source: [place] 11:13 AM [facility] REPOSITORY TYPE CODE TESTS RESULT OUT OF REFERENCE UNITS RANGE LAB U100.0000 [id number] TRANSFUSED PRODUCT: T AND S with Crossmatch, Red Cells COUNT: 2 Performed By: #### U100.0000 #### [facility] - refer to report for specific site BEDSIDE GLUCOSE Collected: 02/19/2018 Status: F Source: [place] 6:29 AM [facility] REPOSITORY TYPE CODE TESTS RESULT OUT OF REFERENCE UNITS RANGE LAB L501.080 70-110 mg/dL High BEDSIDE GLU 121 Result Comment: MANAGEMENT OF PATIENT CARE PER NURSING PROTOCOL Performed By: #### L501.080 #### [facility] Point of Care [address] [place] [address] BASIC METABOLIC Collected: 02/19/2018 Status: F Source: [place] PROFILE (BMP) 5:52 AM [facility] REPOSITORY TYPE CODE TESTS RESULT OUT OF [...] GAP 11 Performed By: #### L500.2500 #### [facility] [address] [place], [address] VANCOMYCIN, TROUGH Collected: 02/18/2018 Status: F Source: [place] LEVEL 9:00 PM [facility] REPOSITORY Order Comment: Comments: draw 30 min [...] (Ventilator/Healtcare Associated) -Sepsis PLEASE CONTACT PHARMACY SERVICES (#0929) FOR INTERPRETATION OF RESULTS. Performed By: #### L501.8820 #### [facility] [address] [place], [address] BEDSIDE GLUCOSE Collected: 02/18/2018 Status: F Source: [place] 6:27 AM [facility] REPOSITORY TYPE CODE TESTS RESULT OUT OF REFERENCE UNITS RANGE LAB L501.080 70-110 mg/dL High BEDSIDE GLU 123 Result Comment: MANAGEMENT OF PATIENT CARE PER NURSING PROTOCOL Performed By: #### L501.080 #### [facility] Point of Care [address] [place] [address] DISCHARGE INSTRUCTION Observed: 02/17/2018 Status: F Source: [place] 8:30 PM [facility] REPOSITORY [facility] Medical Records Department [address] [place] [address] Instructions for Home/Discharge Instructions 02/17/182027 MR#: [id number] Acct: [id number] Name: KANDY LAUREN ANN Rep #: [id number] : 1960 58 From: Candi Covington DPConnie PCP: Pia Newton MD Status: PRE SDC Discharge Activity: May not drive while taking [...] 02/17/2018 Status: F Source: [place] 8:29 PM [facility] REPOSITORY TYPE CODE TESTS RESULT OUT OF REFERENCE UNITS RANGE LAB L501.080 70-110 mg/dL High BEDSIDE GLU 135 Result Comment: MANAGEMENT OF PATIENT CARE PER NURSING PROTOCOL Performed By: #### L501.080 #### [facility] Point of Care [address] [place] [address] Observed: 02/17/2018 Status: F Source: [place] CULTURE, DEEP WOUND 7:04 PM [facility] REPOSITORY Order Date: 10/30/16 Comments: MEDIAL BONE AND SOFT TISSUE Gram Stain Gram Stain No White Blood Cells No organisms seen Wound Culture No growth aerobically. Cult, Anaerobic No growth in 5 days. Performed By: #### M100.1500 #### [facility] [address] [place], [address] Observed: 02/17/2018 Status: F Source: [place]NA CULTURE, DEEP WOUND 7:04 PM [facility] REPOSITORY Order Date: 10/30/16 Comments: LATERAL BONE AND SOFT TISSUE Gram Stain Gram Stain No White Blood Cells No organisms seen Wound Culture No growth aerobically. Cult, Anaerobic No growth in 5 days. Performed By: #### M100.1500 #### [facility] [address] [facility] [place], [address] Observed: 02/17/2018 Status: F Source: [place] CULTURE, FUNGUS W/ 7:04 PM [facility] [id number] REPOSITORY Comments: MEDIAL BONE AND SOFT TISSUE Is this test to exclude patient from TB Isolation? N Clement,[id number] TESTING PERFORMED AT [facility]. ORIGINAL REPORT ON FILE IN LAB CONTAINS ADDITIONAL TEST SITE INFORMATION. CUF No yeast or mold isolated after [address] [facility] ORIGINAL REPORT ON FILE IN LAB CONTAINS ADDITIONAL TEST SITE INFORMATION. Fungus Stain No yeast or mold observed. Performed By: #### M600.1900 #### [facility] [address] [facility] [address] [place], [address] Observed: 02/17/2018 Status: F Source: MAURI CHAMORRO W/ 7:04 [facility] [id number] REPOSITORY Comments: LATERAL BONE AND SOFT TISSUE Is this test to exclude patient from TB Isolation? Sheree Vaughan,[id number] TESTING PERFORMED AT [facility]. ORIGINAL REPORT ON FILE IN LAB CONTAINS ADDITIONAL TEST SITE INFORMATION. CUF No yeast or mold isolated after [address] [facility]. ORIGINAL REPORT ON FILE IN LAB CONTAINS ADDITIONAL TEST SITE INFORMATION. Fungus Stain No yeast or mold observed. Performed By: #### M600.1900 #### [facility] [address] [place], [place], [address] BEDSIDE GLUCOSE Collected: 02/17/2018 Status: F Source: [place] 4:56 PM [facility] REPOSITORY TYPE CODE TESTS RESULT OUT OF REFERENCE UNITS RANGE LAB L501.080 70-110 mg/dL High BEDSIDE GLU 156 Result Comment: MANAGEMENT OF PATIENT CARE PER NURSING PROTOCOL Performed By: #### L501.080 #### [facility] Point of Care [address] [place], [place] [address] CBC W/DIFF, AUTOMATED Collected: 02/17/2018 Status: F Source: [place] 1:45 PM [facility] REPOSITORY TYPE CODE TESTS RESULT OUT OF [...] MONOCYTOSIS, NEUTROPENIA. Performed By: #### L100.0100 #### [facility] [address] [facility] [place], [address] CHEST PA AND LATERAL Observed: 02/17/2018 Status: F Source: [place] 12:42 PM [facility] REPOSITORY [facility] Imaging Services [address] [place] [address] Chest PA and Lateral MR#: [id number] Acct: [id number] Name: KANDY LAUREN ANN Rep #: [id number] : 1960 F 58 From: Mahesh Olivia MD PCP: Pia Newton MD Status: ADM IN Study: Chest PA and Lateral Date of Exam: 02/17/18 Exam# [id number] Ordering Dr: Candi Covington DPM STUDY: X-RAY [...] Mahesh Olivia MD at 13:36 EST Tel [phone], Service support , CC: NORA Covington; Pia Newton MD Procedure Rn: Signed FOOT MIN 3 VIEWS Observed: 02/17/2018 Status: F Source: ANA 12:42 PM [facility] REPOSITORY [facility] Imaging Services [address] [place] [address] Foot min 3 Views MR#: [id number] Acct: [id number] Name: KANDY LAUREN ANN Rep #: [id number] : 1960 F 58 From: Mahesh Olivia MD PCP: Pia Newton MD Status: ADM IN Study: Foot min 3 Views Date of Exam: 02/17/18 Exam# [id number] Ordering Dr: Candi Covington DPM STUDY: X-RAY [...] Mahesh Olivia MD at 14:03 EST Tel [phone], Service support , CC: NORA Covington; Pia Newton MD Procedure Rn: Signed ANKLE MIN 3 VIEWS Observed: 02/17/2018 Status: F Source: ANA 12:42 PM [facility] REPOSITORY [facility] Imaging Services [address] [place] [address] Ankle min 3 Views MR#: [id number] Acct: [id number] Name: KANDY LAUREN ANN Rep #: [id number] : 1960 F 58 From: Mahesh Olivia MD PCP: Pia Newton MD Status: ADM IN Study: Ankle min 3 Views Date of Exam: 02/17/18 Exam# [id number] Ordering Dr: Candi Covington DPM STUDY: X-RAY [...] Mahesh Olivia MD at 14:04 EST Tel [phone], Service support , CC: NORA Covington; Pia Newton MD Procedure Rn: Signed TIBIA AND FIBULA Observed: 02/17/2018 Status: F Source: ANA 2 VIEWS 12:42 PM [facility] REPOSITORY [facility] Imaging Services [address] [place] [address] Tibia AND Fibula 2 Views MR#: [id number] Acct: [id number] Name: ANUJASIMBOBJUAN Rep #: [id number] : 1960 F 58 From: Mahesh Olivia MD PCP: Pia Newton MD Status: ADM IN Study: Tibia AND Fibula 2 Views Date of Exam: 02/17/18 Exam# [id number] Ordering Dr: Candi Covington DPM STUDY: X-RAY [...] Mahesh Olivia MD at 14:05 EST Tel [phone], Service support , CC: NORA Covington; Pia Newton MD Procedure Rn: Signed URINALYSIS, COMPLETE Collected: 02/17/2018 Status: F Source: ANA 11:00 AM [facility] REPOSITORY Order Comment: How was Urine Obtained? BENEFITS CONSULTANT TO SPECIFY TYPE CODE TESTS RESULT OUT [...] URINE SEEN Performed By: #### L400.0001 #### [facility] [address] [facility] [place], [address] Observed: 02/17/2018 Status: F Source: [place] CULTURE, URINE 11:00 AM [facility] REPOSITORY Urine Culture Culture exhibits no growth. Performed By: #### M100.0650 #### [facility] [address] [facility] [place], [address] BEDSIDE GLUCOSE Collected: 02/17/2018 Status: F Source: ANA 6:28 AM [facility] REPOSITORY TYPE CODE TESTS RESULT OUT OF REFERENCE UNITS RANGE LAB L501.080 70-110 mg/dL High BEDSIDE GLU 142 Result Comment: MANAGEMENT OF PATIENT CARE PER NURSING PROTOCOL Performed By: #### L501.080 #### [facility] Point of Care [address] [facility] [place] [address] BONE (FX/NONFRACTURE) Observed: 02/17/2018 Status: F Source: NAA 12:00 AM [facility] REPOSITORY Patient: KANDY LAUREN : 1960 (58/F) Acct Num: [id number] Phys: Candi Covington DPM Unit Num: [id number] Loc: [facility] Specimen: [id number] Received: 02/18/18918 Spec Type: Bone TISSUES 1 [...] one cassette. / SJ:jason 02/18/18 TC:5 CPT: 21047 x2, 51133 HEADER OPERATION: Left lower leg soft tissue [...] clot. See comment. AM:jason 02/25/[address] [facility] 02/25/18 <signature on file> Performed By: #### PBON #### [facility] [address] [facility] [place], [place], [address] MRSA WOUND DNA BY Collected: 2018 Status: F Source: ANA PCR 2:00 PM [facility] REPOSITORY Order Comment: Interface Comments: drainage from PICC insertion site Order Date: 02/16/18 Has pt arrived? Y Specimen Source? drainage from PICC line insertion site TYPE CODE TESTS RESULT OUT OF RANGE REFERENCE UNITS LAB L8200.1100 Negative Normal MRSA Negative RESULT LAB L8200.1150 Negative Normal SA RESULT NEGATIVE Performed By: #### L8200.1075 #### [facility] [address] [place], [address] Observed: 2018 Status: F Source: ANA CULTURE, BODY FLUID 2:00 PM [facility] REPOSITORY Interface Comments: drainage from PICC insertion site Order Date: 02/16/18 Has pt arrived? Y List Antibiotics Last 48 Hours? vanco, maxipine Comments: Drainage from PICC line insertion site Gram Stain Gram Stain 3+ Red Blood Cells No organisms seen Body Fluid Cult No growth aerobically. Cult, Anaerobic No growth in 5 days. Performed By: #### M100.1300 #### [facility] [address] [facility] [address] [place], [place], [address] Observed: 2018 Status: F Source: ANA CULTURE, WOUND 2:00 PM [facility] REPOSITORY Order Date: 02/16/18 List Antibiotics Last [...] 1 S (NF) indicates non-formulary drug at [facility]. Approval by Infectious Disease Specialist required before non-formulary drugs may be ordered and/or dispensed. * CLSI guidelines does not recommend testing of cephalosporins. This interpretation is deduced from Beta-lactam/penicillin results. Performed By: #### M100.1400 #### [facility] [address] [place], [place], [address] Observed: 2018 Status: F Source: ANA CULTURE, BLOOD (WB) 2:00 PM [facility] REPOSITORY List Antibiotics Last 48 Hours? vanco, maxipine BC No growth in 5 days. Performed By: #### M200.1000 #### [facility] [address] [place], [place], [address] Observed: 2018 Status: F Source: ANA CULTURE, BLOOD (WB) 12:15 PM [facility] REPOSITORY List Antibiotics Last 48 Hours? vanco, maxipine BC No growth in 5 days. Performed By: #### M200.1000 #### [facility] [address] [place], [place], [address] BEDSIDE GLUCOSE Collected: 2018 Status: F Source: ANA 6:34 AM [facility] REPOSITORY TYPE CODE TESTS RESULT OUT OF REFERENCE UNITS RANGE LAB L501.080 70-110 mg/dL High BEDSIDE GLU 126 Result Comment: MANAGEMENT OF PATIENT CARE PER NURSING PROTOCOL Performed By: #### L501.080 #### [facility] Point of Care [address] [place] [address] BEDSIDE GLUCOSE Collected: 02/15/2018 Status: F Source: ANA 6:42 AM [facility] REPOSITORY TYPE CODE TESTS RESULT OUT OF REFERENCE UNITS RANGE LAB L501.080 70-110 mg/dL High BEDSIDE GLU 153 Result Comment: MANAGEMENT OF PATIENT CARE PER NURSING PROTOCOL Performed By: #### L501.080 #### [facility] Point of Care [address] [place], [place] [address] VANCOMYCIN, TROUGH Collected: 02/14/2018 Status: F Source: ANA LEVEL 5:24 PM [facility] REPOSITORY Order Comment: Time Medication is to [...] (Ventilator/Healtcare Associated) -Sepsis PLEASE CONTACT PHARMACY SERVICES (#[id number]) FOR INTERPRETATION OF RESULTS. Performed By: #### L501.8820 #### [facility] [address] [place], [address] BEDSIDE GLUCOSE Collected: 02/14/2018 Status: F Source: ANA 6:40 AM [facility] REPOSITORY TYPE CODE TESTS RESULT OUT OF REFERENCE UNITS RANGE LAB L501.080 70-110 mg/dL High BEDSIDE GLU 135 Result Comment: MANAGEMENT OF PATIENT CARE PER NURSING PROTOCOL Performed By: #### L501.080 #### [facility] Point of Care [address] [place], [place] [address] URINALYSIS, COMPLETE Collected: 02/13/2018 Status: F Source: [place] 11:16 AM [facility] REPOSITORY Order Comment: How was Urine Obtained? [...] Normal YEAST-URINE Performed By: #### L400.0001 #### [facility] [address] [place], [address] CBC W/DIFF, AUTOMATED Collected: 02/13/2018 Status: C Source: [place] 9:45 AM [facility] REPOSITORY TYPE CODE TESTS RESULT OUT OF [...] Neut 0.7 Result Comment: AMENDED REPORT 02/16/18 2704 Absolute Neut previously reported as: 0.0 L X10^3/uL LAB L100.2720 0.83-4.51 X10 3/ul Normal Absolute Lymph 1.44 Result Comment: AMENDED REPORT 02/16/18 0074 Absolute Lymph previously reported as: 1.43 X10^3/ul [...] Sid Holloway M.D. 02/16/18 AMENDED REPORT 02/16/18 1975 PATH REV previously reported as: May foll Performed By: #### L100.0100 #### [facility] [address] [place], [address] AMMONIA Collected: 02/13/2018 Status: F Source: [place] 9:45 AM [facility] REPOSITORY TYPE CODE TESTS RESULT OUT OF RANGE REFERENCE UNITS LAB L503.5510 11-32 umol/L Normal AMMONIA 12.0 Performed By: #### L503.5510 #### [facility] [address] [place], [address] COMPREHENSIVE METABOLIC Collected: 02/13/2018 Status: F [facility]: [facility] 9:45 AM [facility] REPOSITORY TYPE CODE TESTS RESULT OUT OF [...] GAP 9 Performed By: #### L500.4050 #### [facility] [address] [facility] [place], [address] CHEST 1 VIEW Observed: 02/13/2018 Status: F Source: [place] (PORTABLE) 9:17 AM [facility] REPOSITORY [facility] Imaging Services [address] [place] [address] Chest 1 View (Portable) MR#: [id number] Acct: [id number] Name: KANDY LAUREN ANN Rep #: [id number] : 1960 F 57 From: Audi Morillo MD PCP: Pia Newton MD Status: ADM IN Study: Chest 1 View (Portable) Date of Exam: 02/13/18 Exam# [id number] Ordering Dr: Gerson Elizondo MD STUDY: X-RAY [...] CC: Pia Newton MD; Gerson Elizondo MD Procedure Rn: Signed ABDOMEN SINGLE VIEW Observed: 02/13/2018 Status: F Source: [place] (PORTABLE) 9:17 AM [facility] REPOSITORY [facility] Imaging Services [address] [place] [address] Abdomen Single View (Portable) MR#: [id number] Acct: [id number] Name: KANDY LAUREN ANN Rep #: [id number] : 1960 F 57 From: Audi Morillo MD PCP: Pia Newton MD Status: ADM IN Study: Abdomen Single View (Portable) Date of Exam: 02/13/18 Exam# [id number] Ordering Dr: Gerson Elizondo MD STUDY: X-RAY [...] José Miguel Mcmullen et al. Circulation, May 2000;103:8558-9748. 3. 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 Electronically Signed: Parrish Morillo MD at 11:17 EST , Service support , CC: Pia Newton MD; Gerson Elizondo MD Procedure Rn: Signed BEDSIDE GLUCOSE Collected: 02/13/2018 Status: F Source: ANA 6:30 AM [facility] REPOSITORY TYPE CODE TESTS RESULT OUT OF REFERENCE UNITS RANGE LAB L501.080 70-110 mg/dL High BEDSIDE GLU 150 Result Comment: MANAGEMENT OF PATIENT CARE PER NURSING PROTOCOL Performed By: #### L501.080 #### [facility] Point of Care [address] [place] [address] VANCOMYCIN, TROUGH Collected: 02/12/2018 Status: F Source: ANA LEVEL 6:05 PM [facility] REPOSITORY Order Comment: Comments: Please draw 02/12 [...] (Ventilator/Healtcare Associated) -Sepsis PLEASE CONTACT PHARMACY SERVICES (#[id number]) FOR INTERPRETATION OF RESULTS. Performed By: #### L501.8820 #### [facility] [address] [place], [address] ANKLE 2 VIEWS Observed: 02/12/2018 Status: F Source: ANA 1:14 PM [facility] REPOSITORY [facility] Imaging Services [address] [place] [address] Ankle 2 Views MR#: [id number] Acct: [id number] Name: KANDY LAUREN Rep #: [id number] : 1960 F 57 From: Audi Morillo MD PCP: Pia Newton MD Status: ADM IN Study: Ankle 2 Views Date of Exam: 02/12/18 Exam# [id number] Ordering Dr: Candi Covington DPM STUDY: X-RAY [...] , CC: NORA Covington; Pia Newton MD Procedure Rn: Signed FOOT MIN 3 VIEWS Observed: 02/12/2018 Status: F Source: [place] 1:14 PM [facility] REPOSITORY [facility] Imaging Services [address] [place] [address] Foot min 3 Views MR#: [id number] Acct: [id number] Name: KANDY LAUREN Rep #: [id number] : 1960 F 57 From: Audi Morillo MD PCP: Pia Newton MD Status: ADM IN Study: Foot min 3 Views Date of Exam: 02/12/18 Exam# [id number] Ordering Dr: Candi Covington DPM STUDY: X-RAY [...] , CC: NORA Covington; Pia Newton MD Procedure Rn: Signed TIBIA AND FIBULA Observed: 02/12/2018 Status: F Source: [place] 2 VIEWS 1:14 PM [facility] REPOSITORY [facility] Imaging Services [address] [place] [address] Tibia AND Fibula 2 Views MR#: [id number] Acct: [id number] Name: KANDY LAUREN ANN Rep #: [id number] : 1960 F 57 From: Audi Morillo MD PCP: Pia Newton MD Status: ADM IN Study: Tibia AND Fibula 2 Views Date of Exam: 02/12/18 Exam# [id number] Ordering Dr: Candi Covington DPM STUDY: X-RAY [...] exams is not fully included in the cnnws-sl-wcuj tear. There is persistent 50% lateral subluxation [...] , CC: NORA Covington; Pia Newton MD Procedure Rn: Signed CBC W/DIFF, AUTOMATED Collected: 02/12/2018 Status: F Source: ANA 6:40 AM [facility] REPOSITORY TYPE CODE TESTS RESULT OUT OF [...] NEUTROPENIA. Performed By: #### L100.0100, L101.9900 #### [facility] [address] [place], [address] ERYTHROCYTE SED RATE Collected: 02/12/2018 Status: F Source: [place] 6:40 AM [facility] REPOSITORY TYPE CODE TESTS RESULT OUT OF RANGE REFERENCE UNITS LAB L102.0000 0-30 mm/hr High SED RATE 91 Performed By: #### L100.0100, L101.9900 #### [facility] [address] [place], [address] BEDSIDE GLUCOSE Collected: 02/12/2018 Status: F Source: ANA 6:28 AM [facility] REPOSITORY TYPE CODE TESTS RESULT OUT OF REFERENCE UNITS RANGE LAB L501.080 70-110 mg/dL High BEDSIDE GLU 124 Result Comment: MANAGEMENT OF PATIENT CARE PER NURSING PROTOCOL Performed By: #### L501.080 #### [facility] Point of Care [address] [place] [address] 12 LEAD ELECTROCARDIOGRAM Observed: 02/11/2018 Status: F Source: [place] 11:40 AM [facility] REPOSITORY [facility] Cardiovascular Services [address] [place] [address] 12 Lead EKG 02/08/18 1233 MR#: [id number] Acct: [id number] Name: KANDY LAUREN Rep #: [id number] : 1960 57 From: Nathanael Peters MD Attending Dr: Mikhail SKINNER,Gerson Watson Status: ADM IN Ordering Dr: Gerson Elizondo MD Date: 02/08/18 Location: [facility] Sex: F C Admitted: 01/21/18 Test Reason [...] Present Confirmed by NATHANAEL PETERS MD ([id number]), society editor BUTCH PATTERSON ([id number]) on 02/11/2018 11:40:17 AM Referred By: Gerson Elizondo Confirmed By:NATHANAEL PETRES MD 02/11/18 1140 Date Nathanael Peters MD CC: Pia Newton MD; Gerson Elizondo MD Signed BEDSIDE GLUCOSE Collected: 02/11/2018 Status: F Source: ANA 6:36 AM [facility] REPOSITORY TYPE CODE TESTS RESULT OUT OF REFERENCE UNITS RANGE LAB L501.080 70-110 mg/dL High BEDSIDE GLU 131 Result Comment: MANAGEMENT OF PATIENT CARE PER NURSING PROTOCOL Performed By: #### L501.080 #### [facility] Point of Care [address] [place] [address] VANCOMYCIN, TROUGH Collected: 02/09/2018 Status: F Source: ANA LEVEL 7:35 PM [facility] REPOSITORY Order Comment: Time Medication is to [...] (Ventilator/Healtcare Associated) -Sepsis PLEASE CONTACT PHARMACY SERVICES (#[id number]) FOR INTERPRETATION OF RESULTS. Performed By: #### L501.8820 #### [facility] [address] [facility] [place], [address] OPERATIVE REPORT Observed: 02/08/2018 Status: F Source: [place] 2:24 PM [facility] REPOSITORY [facility] Medical Records Department [address] [place] [address] Operative Report 02/05/18 1220 MR#: [id number] Acct: [id number] Name: KANDY LAUREN Rep #: [id number] : 1960 57 From: Candi Covington DPM PCP: Pia Newton MD Status: DEP [facility] Y Location: [facility] Report of Operation Date of Procedure: 02/05/18 Pre-Operative Diagnosis: L open ankle fracture, osteomyelitis Post-Operative Diagnosis: same Surgery/Procedure Performed:: Left soft tissue excisional debridement to bone, L exposed tibia bone biopsy, L exposed tibia bone debridement, L ankle application of Integra skin substitute Description of Surgical Findings:: see dictation ballet dancer: Anisha Hooper ballet dancer: April Delacruz Type of Anesthesia:: General Specimen's [...] 02/08/2018 Status: F Source: ANA 12:33 PM [facility] REPOSITORY TYPE CODE TESTS RESULT OUT OF [...] Lymph 2.14 Performed By: #### L100.0100 #### [facility] [address] [place], [address] BASIC METABOLIC Collected: 02/08/2018 Status: F Source: [place] PROFILE ([facility]) 12:33 PM [facility] REPOSITORY TYPE CODE TESTS RESULT OUT OF [...] GAP 6 Performed By: #### L500.2500 #### [facility] [address] [place], [address] BEDSIDE GLUCOSE Collected: 02/08/2018 Status: F Source: ANA 11:52 AM [facility] REPOSITORY TYPE CODE TESTS RESULT OUT OF REFERENCE UNITS RANGE LAB L501.080 70-110 mg/dL High BEDSIDE GLU 126 Result Comment: MANAGEMENT OF PATIENT CARE PER NURSING PROTOCOL Performed By: #### L501.080 #### [facility] Point of Care [address] [place], [place] [address] VANCOMYCIN, TROUGH Collected: 02/06/2018 Status: F Source: ANA LEVEL 7:57 PM [facility] REPOSITORY Order Comment: Comments: Please draw 02/06 @ 1930 Time Medication is to be Given? 1999 [...] (Ventilator/Healtcare Associated) -Sepsis PLEASE CONTACT PHARMACY SERVICES (#[id number]) FOR INTERPRETATION OF RESULTS. Performed By: #### L501.8820 #### [facility] [address] [place], [place], [address] BEDSIDE GLUCOSE Collected: 02/06/2018 Status: F Source: ANA 6:46 AM [facility] REPOSITORY TYPE CODE TESTS RESULT OUT OF REFERENCE UNITS RANGE LAB L501.080 70-110 mg/dL High BEDSIDE GLU 182 Result Comment: MANAGEMENT OF PATIENT CARE PER NURSING PROTOCOL Performed By: #### L501.080 #### [facility] Point of Care [address] [place], [place] [address] URINALYSIS, COMPLETE Collected: 02/05/2018 Status: F Source: ANA 9:35 PM [facility] REPOSITORY Order Comment: Order Date: 02/05/18 How [...] URINE RARE Performed By: #### L400.0001 #### [facility] [address] [facility] [place], [place], [address] Observed: 02/05/2018 Status: F Source: ANA CULTURE, URINE 9:35 PM [facility] REPOSITORY Order Date: 02/05/18 Urine Culture Culture exhibits no growth. Performed By: #### M100.0650 #### [facility] [address] [facility] [place], [place], [address] BEDSIDE GLUCOSE Collected: 02/05/2018 Status: F Source: ANA 12:35 PM [facility] REPOSITORY TYPE CODE TESTS RESULT OUT OF REFERENCE UNITS RANGE LAB L501.080 70-110 mg/dL High BEDSIDE GLU 132 Result Comment: MANAGEMENT OF PATIENT CARE PER NURSING PROTOCOL Performed By: #### L501.080 #### [facility] Point of Care [address] [facility] [place] [address] DISCHARGE INSTRUCTION Observed: 02/05/2018 Status: F Source: ANA 12:17 PM [facility] REPOSITORY [facility] Medical Records Department [address] [place] [address] Instructions for Home/Discharge Instructions 02/05/18 1212 MR#: [id number] Acct: [id number] Name: KANDY LAUREN Rep #: [id number] : 1960 57 From: Candi Covington DPM PCP: Pia Newton MD Status: REG [facility] Discharge Activity: May Not Drive, May not [...] Source: ANA CULTURE, DEEP WOUND 12:12 PM [facility] REPOSITORY Order Date: 10/30/16 List Antibiotics Last 48 Hours? YES Comments: COLLECTED IN OR #1 LEFT TIBIAL BONE Gram Stain Gram Stain No White Blood Cells No organisms seen Wound Culture RESULTS FAXED TO OFFICE 02/08/18 5767 Emily Winston. Copy of report sent to Infection Control Printer [id number] 02/08/18 5244 ROBIN. ORGANISM 1: Meth. resistant Staph. aureus [...] 1 S (NF) indicates non-formulary drug at [facility]. Approval by Infectious Disease Specialist required before non-formulary drugs may be ordered and/or dispensed. * CLSI guidelines does not recommend testing of cephalosporins. This interpretation is deduced from Beta-lactam/penicillin results. Cult, Anaerobic No growth in 5 days. Performed By: #### M100.1500 #### [facility], [address] AFB Observed: 02/05/2018 Status: F Source: [place] CULT/SMEAR [id number] 12:12 PM [facility] REPOSITORY Comments: COLLECTED IN OR #1 LEFT TIBIAL BONE Is this test to exclude patient from TB Isolation? N AFB Smear/Fluor [facility] ORIGINAL REPORT ON FILE IN LAB CONTAINS ADDITIONAL TEST SITE INFORMATION. Smear, Acid Fast Tissue Grinding Smear: Negative AFB Cult TESTING PERFORMED AT [facility]. ORIGINAL REPORT ON FILE IN LAB CONTAINS ADDITIONAL TEST SITE INFORMATION. Culture, Acid Fast NO ACID-FAST BACILLI ISOLATED AFTER 6 WEEKS. Performed By: #### M100.3880, M600.1900 #### [facility] [address] [place], [address] Observed: 02/05/2018 Status: F Source: ANA ESCALONA FUNGUS W/ 12:12 PM [facility] [id number] REPOSITORY Comments: COLLECTED IN OR #1 LEFT TIBIAL BONE Is this test to exclude patient from TB Isolation? Sheree Vaughan,[id number] TESTING PERFORMED AT [facility]. ORIGINAL REPORT ON FILE IN LAB CONTAINS ADDITIONAL TEST SITE INFORMATION. CUF No yeast or mold isolated after [address] [facility]. ORIGINAL REPORT ON FILE IN LAB CONTAINS ADDITIONAL TEST SITE INFORMATION. Fungus Stain No yeast or mold observed. Performed By: #### M100.3880, M600.1900 #### [facility] [address] [place], [place], [address] BEDSIDE GLUCOSE Collected: 02/05/2018 Status: F Source: [place] 9:17 AM [facility] REPOSITORY TYPE CODE TESTS RESULT OUT OF RANGE REFERENCE UNITS LAB L501.080 70-110 mg/dL Normal BEDSIDE GLU 97 Result Comment: MANAGEMENT OF PATIENT CARE PER NURSING PROTOCOL Performed By: #### L501.080 #### [facility] Point of Care [address] [place], [place] [address] CBC W/DIFF, AUTOMATED Collected: 02/05/2018 Status: F Source: [place] 5:05 AM [facility] REPOSITORY Order Comment: SPECIMEN OBTAINED FROM LINE [...] 2.63 Performed By: #### L100.0100, L101.9900 #### [facility] [address] [place], [place], [address] ERYTHROCYTE SED RATE Collected: 02/05/2018 Status: F Source: [place] 5:05 AM [facility] REPOSITORY Order Comment: SPECIMEN OBTAINED FROM LINE DRAW TYPE CODE TESTS RESULT OUT OF RANGE REFERENCE UNITS LAB L102.0000 0-30 mm/hr High SED RATE 71 Performed By: #### L100.0100, L101.9900 #### [facility] [address] [place], [address] BASIC METABOLIC Collected: 02/05/2018 Status: F Source: [place] PROFILE (BMP) 5:05 AM [facility] REPOSITORY Order Comment: SPECIMEN OBTAINED FROM LINE [...] GAP 7 Performed By: #### L500.2500 #### [facility] [address] [place], [address] BONE (FX/NONFRACTURE) Observed: 02/05/2018 Status: F Source: ANA 12:00 AM [facility] REPOSITORY Patient: KANDY LAUREN : 1960 (57/F) Acct Num: [id number] Phys: Candi Covington DPM Unit Num: [id number] Loc: [facility] Specimen: [id number] Received: 02/05/18 - 1502 Spec Type: Bone TISSUES 1 TISSUES: Tibia, NOS GROSS DESCRIPTION Received in fixative is one container labeled with the patient's name and designated left tibial bone. The specimen consists of a piece of bone measuring 0.5 x 0.5 x 0.3 cm. The entire specimen is submitted in one cassette after decalcification. / Elissa 02/05/18 TC: 2 CPT: 49914, 50063 HEADER OPERATION: Soft tissue bone debridement PRE-OP DIAGNOSIS: Left ankle open fracture, osteomyelitis TISSUE SUBMITTED: Left tibial bone MICROSCOPIC DESCRIPTION Slides are reviewed. MICROSCOPIC DIAGNOSIS Left tibial bone: Piece of bone with fibrinous exudation and acute osteomyelitis. JOSE LUIS:elie 02/11/18 Signed Sid Holloway 02/11/18 <signature on file> Performed By: #### PBON #### [facility] [address] [place], [place], [address] OPERATIVE REPORT Observed: 02/04/2018 Status: F Source: ANA 7:04 PM [facility] REPOSITORY [facility] Medical Records Department [address] [place] [address] Operative Report 02/04/18 1902 MR#: [id number] Acct: [id number] Name: KANDY LAUREN Rep #: [id number] : 1960 57 From: Candi Covington DPM PCP: Pia Newton MD Status: REG [facility] Y Location: [facility] Report of Operation Date of Procedure: 01/29/18 Pre-Operative Diagnosis: left ankle open fracture; painful/broken hardware; acute osteomyelitis left distal fibula Post-Operative Diagnosis: same Surgery/Procedure Performed:: left ankle hardware removal, debridement of soft tissue to bone, debridement fibula bone, bone biopsy fibula, debridement and bone biopsy of medial tibia, application of external fixation Description of Surgical Findings:: see dictation ballet dancer: Ashutosh Gutierrez Type of Anesthesia:: Spinal General [...] previous sites. All wires were tensioned per director dietetics department guidelines. The medial and lateral wounds were [...] then, pt will remain in the [facility]CU [facility] at all times. At the end [...] MARLYS Hose [facility] Prophylaxis ordered?: Yes 02/04/18 190 <Electronically signed by Candi Covington DPM> Date Candi Covington DPM CC: DPConnie Covington; Pia Newton MD Signed VANCOMYCIN, RANDOM Collected: 02/04/2018 Status: F Source: ANA LEVEL 4:30 PM [facility] REPOSITORY TYPE CODE TESTS RESULT OUT OF RANGE REFERENCE UNITS LAB L501.8850 0.0-15.0 ug/mL Normal VANCO, RANDOM 13.7 Result Comment: VANCOMYCIN STANDARD DRUG THERAPY: CRITICAL VALUE IS > 15.0 mg/L VANCOMYCIN HIGH INTENSITY THERAPY: CRITICAL VALUE IS > 20.0 mg/L PLEASE CONTACT PHARMACY SERVICES (#5342) FOR INTERPRETATION OF RESULTS. THIS RESULT DOES NOT REPRESENT A PEAK OR TROUGH LEVEL FOR THIS DRUG. Performed By: #### L501.8850 #### [facility] [address] [facility] [facility] [place], [place], [address] HEMOGLOBIN Collected: 02/04/2018 Status: F Source: ANA 4:32 AM [facility] REPOSITORY TYPE CODE TESTS RESULT OUT OF RANGE REFERENCE UNITS LAB L100.1300 12.0-15.0 g/dl Low HGB 9.6 Performed By: #### L100.1300 #### [facility] [address] [place], [place], [address] VANCOMYCIN, RANDOM Collected: 02/02/2018 Status: F Source: ANA LEVEL 7:04 AM [facility] REPOSITORY TYPE CODE TESTS RESULT OUT OF REFERENCE UNITS RANGE LAB L501.8850 0.0-15.0 ug/mL High VANCO, RANDOM 15.9 Result Comment: VANCOMYCIN STANDARD DRUG THERAPY: CRITICAL VALUE IS > 15.0 mg/L VANCOMYCIN HIGH INTENSITY THERAPY: CRITICAL VALUE IS > 20.0 mg/L PLEASE CONTACT PHARMACY SERVICES (#3245) FOR INTERPRETATION OF RESULTS. THIS RESULT DOES NOT REPRESENT A PEAK OR TROUGH LEVEL FOR THIS DRUG. Performed By: #### L501.8850 #### [facility] [address] [place], [place], [address] TYPE AND SCREEN Collected: 02/02/2018 Status: P Source: [place] 7:04 AM [facility] REPOSITORY Order Comment: CMV NEG? N Number [...] NEGATIVE Screen Performed By: #### B101.7450 #### [facility] [facility] [facility] [place], [address] TYPE AND SCREEN Collected: 02/02/2018 Status: F Source: [place] 7:04 [facility] REPOSITORY Order Comment: CMV NEG? N Number [...] NEGATIVE Screen Performed By: #### B101.7450 #### [facility] [address] [place], [address] Collected: 02/02/2018 Status: F Source: [place] 7:04 AM [facility] REPOSITORY TYPE CODE TESTS RESULT OUT OF REFERENCE UNITS RANGE LAB U100.0000 [id number] TRANSFUSED PRODUCT: T AND S with Crossmatch, Red Cells COUNT: 2 Performed By: #### U100.0000 #### [facility] - refer to report for specific site CBC W/DIFF, AUTOMATED Collected: 02/02/2018 Status: F Source: [place] 5:30 AM [facility] REPOSITORY Order Comment: SPECIMEN OBTAINED FROM LINE [...] Lymph 2.46 Performed By: #### L100.0100 #### [facility] [address] [place], [address] OPERATIVE REPORT Observed: 02/01/2018 Status: F Source: [place] 7:33 PM [facility] REPOSITORY [facility] Medical Records Department [address] [place] [address] Operative Report 02/01/18 1855 MR#: [id number] Acct: [id number] Name: KANDY LAUREN ANN Rep #: [id number] : 1960 57 From: Candi Covington DPM PCP: Pia Newton MD Status: ADM IN Y Location: [place] [address] Report of Operation Date of Procedure: 01/29/18 Pre-Operative Diagnosis: Left ankle open fracture; painful/broken hardware; acute osteomyelitis left distal fibula Post-Operative Diagnosis: same Surgery/Procedure Performed:: Left ankle hardware removal, debridement of soft tissue to bone, debridement fibula bone, bone biopsy fibula, debridement and bone biopsy of medial tibia, application of external fixation Description of Surgical Findings:: see dictation ballet dancer: Ashutosh Gutierrez Type of Anesthesia:: Spinal General [...] previous sites. All wires were tensioned per director dietetics department guidelines. The medial and lateral wounds were [...] HEMOGLOBIN AND Collected: 02/01/2018 Status: F Source: [place] HEMATOCRIT 4:52 AM [facility] REPOSITORY Order Comment: SPECIMEN OBTAINED FROM LINE DRAW TYPE CODE TESTS RESULT OUT OF RANGE REFERENCE UNITS LAB L100.1300 12.0-15.0 g/dl Low HGB 7.3 LAB L100.1400 37-47 % Low HCT 23.2 Performed By: #### L100.0600 #### [facility] [address] [place], [address] BASIC METABOLIC Collected: 01/31/2018 Status: F Source: [place] PROFILE (BMP) 8:00 AM [facility] REPOSITORY Order Comment: Comments: NEED SCR FOR [...] GAP 8 Performed By: #### L500.2500 #### [facility] [address] [place], [place], [address] VANCOMYCIN, RANDOM Collected: 01/31/2018 Status: F Source: ANA LEVEL 8:00 AM [facility] REPOSITORY Order Comment: Comments: DRAW RANDOM LEVEL TYPE CODE TESTS RESULT OUT OF REFERENCE UNITS RANGE LAB L501.8850 0.0-15.0 ug/mL High VANCO, RANDOM 15.1 Result Comment: VANCOMYCIN STANDARD DRUG THERAPY: CRITICAL VALUE IS > 15.0 mg/L VANCOMYCIN HIGH INTENSITY THERAPY: CRITICAL VALUE IS > 20.0 mg/L PLEASE CONTACT PHARMACY SERVICES (#7993) FOR INTERPRETATION OF RESULTS. THIS RESULT DOES NOT REPRESENT A PEAK OR TROUGH LEVEL FOR THIS DRUG. Performed By: #### L501.8850 #### [facility] [address] [place], [place], [address] HH, HEMOGLOBIN AND Collected: 01/30/2018 Status: F Source: ANA HEMATOCRIT 4:40 AM [facility] REPOSITORY Order Comment: Comments: please call Dr. Covington if < 8. TYPE CODE TESTS RESULT OUT OF RANGE REFERENCE UNITS LAB L100.1300 12.0-15.0 g/dl Low HGB 7.9 LAB L100.1400 37-47 % Low HCT 25.6 Performed By: #### L100.0600 #### [facility] [address] [place], [address] DISCHARGE INSTRUCTION Observed: 01/29/2018 Status: F Source: [place] 4:42 PM [facility] REPOSITORY [facility] Medical Records Department [address] [place] [address] Instructions for Home/Discharge Instructions 01/29/18 1636 MR#: [id number] Acct: [id number] Name: KANDY LAUREN ANN Rep #: [id number] : 1960 57 From: Candi Covington DPM PCP: Pia Newton MD Status: REG SDC Discharge Activity: May Not Drive, May Not [...] Proposed Discharge Date: 01/29/18 - Back to [facility], plan for OR next week 01/29/18 0142 <Electronically signed by Candi Covington DPM> Date Candi Covington DPM CC: Pia Newton MD FOOT 2 VIEWS Observed: 01/29/2018 Status: F Source: ANA 4:31 PM [facility] REPOSITORY [facility] Imaging Services [address] [place] [address] Foot 2 Views MR#: [id number] Acct: [id number] Name: KANDY LAUREN Rep #: [id number] : 1960 F 57 From: Devika Lyons MD PCP: Pia Newton MD Status: REG [facility] Study: Foot 2 Views Date of Exam: 01/29/18 Exam# [id number] Ordering Dr: Candi Covington DPM STUDY: X-RAY [...] , CC: NORA Covington; Pia Newton MD Procedure Rn: Signed ANKLE MIN 3 VIEWS Observed: 01/29/2018 Status: F Source: ANA 4:31 PM [facility] REPOSITORY [facility] Imaging Services [address] [place] [address] Ankle min 3 Views MR#: [id number] Acct: [id number] Name: KANDY LAUREN ANN Rep #: [id number] : 1960 F 57 From: Devika Lyons MD PCP: Pia Newton MD Status: REG [facility] Study: Ankle min 3 Views Date of Exam: 01/29/18 Exam# [id number] Ordering Dr: Candi Covington DPM STUDY: X-RAY [...] , CC: NORA Covington; Pia Newton MD Procedure Rn: Signed TIBIA AND FIBULA Observed: 01/29/2018 Status: F Source: ANA 2 VIEWS 4:31 PM [facility] REPOSITORY [facility] Imaging Services [address] [place], [place] [address] [address] Tibia AND Fibula 2 Views MR#: [id number] Acct: [id number] Name: KANDY LAUREN ANN Rep #: [id number] : 1960 F 57 From: Devika Lyons MD PCP: Pia Newton MD Status: REG [facility] Study: Tibia AND Fibula 2 Views Date of Exam: 01/29/18 Exam# [id number] Ordering Dr: Candi Covington DPM STUDY: X-RAY [...] , CC: NORA Covington; Pia Newton MD Procedure Rn: Signed BEDSIDE GLUCOSE Collected: 01/29/2018 Status: F Source: ANA 2:58 PM [facility] REPOSITORY TYPE CODE TESTS RESULT OUT OF RANGE REFERENCE UNITS LAB L501.080 70-110 mg/dL Normal BEDSIDE GLU 106 Result Comment: MANAGEMENT OF PATIENT CARE PER NURSING PROTOCOL Performed By: #### L501.080 #### [facility] Point of Care [address] [place] [address] HH, HEMOGLOBIN AND Collected: 01/29/2018 Status: F Source: ANA HEMATOCRIT 1:58 PM [facility] REPOSITORY TYPE CODE TESTS RESULT OUT OF RANGE REFERENCE UNITS LAB L100.1300 12.0-15.0 g/dl Low HGB 8.3 LAB L100.1400 37-47 % Low HCT 27.0 Performed By: #### L100.0600 #### [facility] [facility] [place], [address] MRSA WOUND DNA BY Collected: 01/29/2018 Status: F Source: ANA PCR 10:25 AM [facility] REPOSITORY Order Comment: Comments: Collected in OR, Medial Left Ankle Wound TYPE CODE TESTS RESULT OUT OF RANGE REFERENCE UNITS LAB L8200.1100 Negative Normal MRSA Negative RESULT LAB L8200.1150 Negative High SA RESULT POSITIVE Performed By: #### L8200.1075 #### [facility] [place], [address] MRSA WOUND DNA BY Collected: 01/29/2018 Status: F Source: ANA PCR 10:25 AM [facility] REPOSITORY Order Comment: Comments: Collected in OR, Medial Left Ankle Wound TYPE CODE TESTS RESULT OUT OF REFERENCE UNITS RANGE LAB L8200.1100 Negative High MRSA POSITIVE RESULT LAB L8200.1150 Negative High SA RESULT POSITIVE Performed By: #### L8200.1075 #### [facility] [address] [place], [address] Observed: 01/29/2018 Status: F Source: ANA CULTURE, DEEP WOUND 10:25 AM [facility] REPOSITORY Order Date: 10/30/16 Comments: Distal Fibula Clearance Fragment Collected in OR Gram Stain Gram Stain No White Blood Cells No organisms seen Wound Culture No growth aerobically. Cult, Anaerobic No growth in 5 days. Performed By: #### M100.1500, M100.3880 #### [facility] [address] [place], [address] [employer] Observed: 01/29/2018 Status: F Source: ANA CULT/SMEAR [id number] 10:25 AM [facility] REPOSITORY Comments: Collected in OR, Distal Fibula [...] WEEKS. Performed By: #### M100.1500, M100.3880 #### [facility] [address] [place], [address] Observed: 01/29/2018 Status: F Source: ANA CULTURE, DEEP WOUND 10:25 AM [facility] REPOSITORY Order Date: 10/30/16 Comments: Collected in [...] 1 S (NF) indicates non-formulary drug at [facility]. Approval by Infectious Disease Specialist required before non-formulary drugs may be ordered and/or dispensed. * CLSI guidelines does not recommend testing of cephalosporins. This interpretation is deduced from Beta-lactam/penicillin results. Cult, Anaerobic No growth in 5 days. Performed By: #### M100.1500 #### [facility] [address] [facility] [facility] [place], [place], [address] Observed: 01/29/2018 Status: F Source: ANA CULTURE, DEEP WOUND 10:25 [facility] REPOSITORY Order Date: 10/30/16 Comments: Collected in OR, Fibula Bone Gram Stain Gram Stain No White Blood Cells No organisms seen Wound Culture No growth aerobically. Cult, Anaerobic No growth in 5 days. Performed By: #### M100.1500 #### [facility] [address] [facility] [facility] [place], [place], [address] Observed: 01/29/2018 Status: F Source: ANA ESCALONA, FUNGUS W/ 10:25 [facility] [id number] REPOSITORY Comments: Collected in OR, Distal Fibula Clearance Fragment Is this test to exclude patient from TB Isolation? N Cu,Qzqlbc1480 TESTING PERFORMED AT [facility]. ORIGINAL REPORT ON FILE IN LAB CONTAINS ADDITIONAL TEST SITE INFORMATION. CUF No yeast or mold isolated after [address] TESTING PERFORMED AT [facility]. ORIGINAL REPORT ON FILE IN LAB CONTAINS ADDITIONAL TEST SITE INFORMATION. Fungus Stain No yeast or mold observed. Performed By: #### M600.1900 #### [facility] [address] [place], [place] [address], [address] [employer] Observed: 01/29/2018 Status: F Source: ANA CULT/SMEAR [id number] 10:25 [facility] REPOSITORY Comments: Collected in OR, Exposed Tibial Bone AF[employer] Smear[facility]Fluor [facility] ORIGINAL REPORT ON FILE IN LAB CONTAINS ADDITIONAL TEST SITE INFORMATION. Smear, Acid Fast Tissue Grinding Smear: Negative [employer] Cult [facility] ORIGINAL REPORT ON FILE IN LAB CONTAINS ADDITIONAL TEST SITE INFORMATION. Culture, Acid Fast NO ACID-FAST BACILLI ISOLATED AFTER 6 WEEKS. Performed By: #### M100.3880 #### [facility] [address] [place], [address] Observed: 01/29/2018 Status: F Source: MAURI CHAMORRO W/ 10:25 [facility] [id number] REPOSITORY Comments: Collected in OR, Exposed Tibial Bone Is this test to exclude patient from TB Isolation? Sheree Vaughan,[id number] TESTING PERFORMED AT [facility]. ORIGINAL REPORT ON FILE IN LAB CONTAINS ADDITIONAL TEST SITE INFORMATION. CUF No yeast or mold isolated after [address] [facility] ORIGINAL REPORT ON FILE IN LAB CONTAINS ADDITIONAL TEST SITE INFORMATION. Fungus Stain No yeast or mold observed. Performed By: #### M600.1900 #### [facility] [address] [place], [address] [employer] Observed: 01/29/2018 Status: F Source: ANA CULT/SMEAR [id number] 10:25 AM [facility] REPOSITORY Comments: Collected in OR, Fibula Bone AFB Smear/Fluor TESTING PERFORMED AT [facility]. ORIGINAL REPORT ON FILE IN LAB CONTAINS ADDITIONAL TEST SITE INFORMATION. Smear, Acid Fast Tissue Grinding Smear: Negative AFB Cult TESTING PERFORMED AT [facility]. ORIGINAL REPORT ON FILE IN LAB CONTAINS ADDITIONAL TEST SITE INFORMATION. Culture, Acid Fast NO ACID-FAST BACILLI ISOLATED AFTER 6 WEEKS. Performed By: #### M100.3880 #### [facility] [address] [place], [address] Observed: 01/29/2018 Status: F Source: ANA CULTURE, FUNGUS W/ 10:25 [facility] [id number] REPOSITORY Comments: Collected in OR, Fibula Bone Is this test to exclude patient from TB Isolation? N [id number] TESTING PERFORMED AT [facility]. ORIGINAL REPORT ON FILE IN LAB CONTAINS ADDITIONAL TEST SITE INFORMATION. CUF No yeast or mold isolated after [address] TESTING PERFORMED AT [facility]. ORIGINAL REPORT ON FILE IN LAB CONTAINS ADDITIONAL TEST SITE INFORMATION. Fungus Stain No yeast or mold observed. Performed By: #### M600.1900 #### [facility] [address] [place], [address] BONE (FX/NONFRACTURE) Observed: 01/29/2018 Status: F Source: [place] 8:45 [facility] REPOSITORY Patient: KANDY LAUREN : 1960 (57/F) Acct Num: [id number] Phys: Candi Covington DPM Unit Num: [id number] Loc: [facility] Specimen: [id number] Received: 01/29/181603 Spec Type: Bone TISSUES 1 TISSUES: A. Bone of ankle, NOS B. Bone of ankle, NOS C. Tibia, NOS COMMENT Please make reference to previous specimen ([id number]) left distal tibia bone, core biopsy with [...] measuring 4 x 2.7 x 1.5 cm. 3D Modeler sections are submitted in two cassettes after [...] after decalcification. / AM:jason 01/30/18 TC:2 CPT: 78660 x3, 52470 x3 HEADER OPERATION: Left ankle removal hardware, [...] on file> Performed By: #### PBON #### [facility] [address] [place], [place] [address], [address] VANCOMYCIN, RANDOM Collected: 01/29/2018 Status: F Source: ANA LEVEL 8:00 AM [facility] REPOSITORY Order Comment: Comments: RANDOM LEVEL DUE AT 0900 TYPE CODE TESTS RESULT OUT OF REFERENCE UNITS RANGE LAB L501.8850 0.0-15.0 ug/mL High VANCO, RANDOM 19.2 Result Comment: VANCOMYCIN STANDARD DRUG THERAPY: CRITICAL VALUE IS > 15.0 mg/L VANCOMYCIN HIGH INTENSITY THERAPY: CRITICAL VALUE IS > 20.0 mg/L PLEASE CONTACT PHARMACY SERVICES (#3986) FOR INTERPRETATION OF RESULTS. THIS RESULT DOES NOT REPRESENT A PEAK OR TROUGH LEVEL FOR THIS DRUG. Performed By: #### L501.8850 #### [facility] [address] [place], [place], [address] BEDSIDE GLUCOSE Collected: 01/29/2018 Status: F Source: ANA 6:42 AM [facility] REPOSITORY TYPE CODE TESTS RESULT OUT OF REFERENCE UNITS RANGE LAB L501.080 70-110 mg/dL High BEDSIDE GLU 136 Result Comment: MANAGEMENT OF PATIENT CARE PER NURSING PROTOCOL Performed By: #### L501.080 #### [facility] Point of Care [address] [place] [address] BASIC METABOLIC Collected: 01/29/2018 Status: F Source: ANA PROFILE (BMP) 5:30 AM [facility] REPOSITORY TYPE CODE TESTS RESULT OUT OF [...] GAP 9 Performed By: #### L500.2500 #### [facility] [address] [place], [place], [address] PROTHROMBIN TIME W/INR Collected: 01/29/2018 Status: F Source: [place] 5:30 AM [facility] REPOSITORY TYPE CODE TESTS RESULT OUT OF RANGE REFERENCE UNITS LAB L300.4150 11.7-14.9 SECONDS High PROTIME 15.2 LAB L300.4200 Normal INR 1.2 Performed By: #### L300.3900 #### [facility] [address] [place], [address] CBC W/DIFF, AUTOMATED Collected: 01/29/2018 Status: F Source: [place] 5:30 AM [facility] REPOSITORY TYPE CODE TESTS RESULT OUT OF [...] Lymph 2.28 Performed By: #### L100.0100 #### [facility] [address] [facility] [place], [address] ANKLE 2 VIEWS Observed: 01/29/2018 Status: F Source: [place] 5:06 AM [facility] REPOSITORY [facility] Imaging Services [address] [place] [address] Ankle 2 Views MR#: [id number] Acct: [id number] Name: KANDY LAUREN ANN Rep #: [id number] : 1960 F 57 From: Shahbaz Gtz MD PCP: Pia Newton MD Status: [facility] Study: Ankle 2 Views Date of Exam: 01/29/18 Exam# [id number] Ordering Dr: Candi Covington DPM STUDY: X-RAY [...] , CC: NORA Covington; Pia Newton MD Procedure Rn: Signed CONSULTATION Observed: 01/28/2018 Status: F Source: [place] 9:05 PM [facility] REPOSITORY [facility] Medical Records Department [address] [place] [address] Consultation 01/28/182049 MR#: [id number] Acct: [id number] Name: KANDY LAUREN Rep #: [id number] : 1960 57 From: Candi Covington DPM PCP: Pia Newton MD Status: ADM IN Y Location: [place] [address] Reason for Consult Date of Consultation: 01/28/18 [...] abortions. 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 Will plan for interval washouts, [...] Hgb < 9 please have 2 units electrical tryout person to the OR. -Benefits and risks of [...] surgery, fracture. No guarantees were given 01/28/18 7326 <Electronically signed by Candi Covington DPM> Date Candi Covington DPM Cosigner Signature (if applicable): Date CC: NORA Covington; Pia Newton MD; Nellie Quezada DPM; Ying Bejarano MD; Gerson Elizondo MD Signed TYPE AND SCREEN Collected: 01/28/2018 Status: F Source: ANA 1:10 PM [facility] REPOSITORY Order Comment: Reason for Type AND Screen/Red Cells: SURGERY Surgery Date: 12/29/17 Time: 729 Other - use comments: hardware removal Type of Surgery: OTHER TYPE CODE TESTS RESULT OUT OF RANGE REFERENCE UNITS LAB B10.0800 O Normal BLOOD TYPE GEL NEGATIVE LAB B100.4000 Normal Antibody NEGATIVE Screen Performed By: #### B101.7450 #### [facility] [address] [place], [place], [address] RC Collected: 01/28/2018 Status: F Source: ANA 1:10 PM [facility] REPOSITORY TYPE CODE TESTS RESULT OUT OF REFERENCE UNITS RANGE LAB U100.0000 [id number] TRANSFUSED PRODUCT: T AND S with Crossmatch, Red Cells COUNT: 1 Performed By: #### U100.0000 #### [facility] - refer to report for specific site BEDSIDE GLUCOSE Collected: 01/28/2018 Status: F Source: ANA 6:15 AM [facility] REPOSITORY TYPE CODE TESTS RESULT OUT OF REFERENCE UNITS RANGE LAB L501.080 70-110 mg/dL High BEDSIDE GLU 130 Result Comment: Orders Followed MANAGEMENT OF PATIENT CARE PER NURSING PROTOCOL Performed By: #### L501.080 #### [facility] Point of Care [address] [place], [place] [address] VANCOMYCIN, TROUGH Collected: 01/28/2018 Status: F Source: ANA LEVEL 12:40 AM [facility] REPOSITORY Order Comment: Comments: Please draw random [...] (Ventilator/Healtcare Associated) -Sepsis PLEASE CONTACT PHARMACY SERVICES (#[id number]) FOR INTERPRETATION OF RESULTS. Performed By: #### L501.8820 #### [facility] [address] [place], [address] BASIC METABOLIC Collected: 01/28/2018 Status: F Source: ANA PROFILE (BMP) 12:40 AM [facility] REPOSITORY Order Comment: Comments: please draw BMP [...] GAP 11 Performed By: #### L500.2500 #### [facility] [address] [place], [address] 12 LEAD ELECTROCARDIOGRAM Observed: 01/27/2018 Status: F Source: ANA 11:44 AM [facility] REPOSITORY [facility] Cardiovascular Services [address] [place] [address] 12 Lead EKG 01/20/18 0445 MR#: [id number] Acct: [id number] Name: KANDY LAUREN Rep #: [id number] : 1960 57 From: Octavio Humphrey MD Attending Dr: Everett Hillman MD Status: DIS IN Ordering Dr: Lucas Farley MD Date: 01/20/18 Location: [facility] Sex: F C Admitted: 01/16/18 Test Reason [...] was found Confirmed by OCTAVIO HUMPHREY ([id number]), society editor BUTCH PATTERSON ([id number]) on 01/27/2018 11:43:54 AM Referred By: Juan Tavarez Confirmed By:OCTAVIO HUMPHREY 01/27/18 1143 Date Octavio Humphrey MD CC: Pia Newton MD; Lucas Farley MD; Juan Tavarez MD; Everett Hillman MD Signed BEDSIDE GLUCOSE Collected: 01/27/2018 Status: F Source: ANA 6:31 AM [facility] REPOSITORY TYPE CODE TESTS RESULT OUT OF REFERENCE UNITS RANGE LAB L501.080 70-110 mg/dL High BEDSIDE GLU 138 Result Comment: MANAGEMENT OF PATIENT CARE PER NURSING PROTOCOL Performed By: #### L501.080 #### [facility] Point of Care [address] [place] [address] VANCOMYCIN, RANDOM Collected: 01/26/2018 Status: F Source: ANA LEVEL 11:00 PM [facility] REPOSITORY TYPE CODE TESTS RESULT OUT OF RANGE REFERENCE UNITS LAB L501.8850 0.0-15.0 ug/mL Normal VANCO, RANDOM 14.7 Result Comment: VANCOMYCIN STANDARD DRUG THERAPY: CRITICAL VALUE IS > 15.0 mg/L VANCOMYCIN HIGH INTENSITY THERAPY: CRITICAL VALUE IS > 20.0 mg/L PLEASE CONTACT PHARMACY SERVICES (#[id number]) FOR INTERPRETATION OF RESULTS. THIS RESULT DOES NOT REPRESENT A PEAK OR TROUGH LEVEL FOR THIS DRUG. Performed By: #### L501.8850 #### [facility] [address] [place], [address] CONSULTATION Observed: 01/26/2018 Status: F Source: [place] 10:09 PM [facility] REPOSITORY [facility] Medical Records Department [address] [place] [address] Consultation 01/26/18 1839 MR#: [id number] Acct: [id number] Name: KANDY LAUREN ANN Rep #: [id number] : 1960 57 From: Nellie Quezada DPM PCP: Pia Newton MD Status: ADM IN Location: [place] [address] Problem List (1) Tinea unguium Status: Chronic [...] abortions. 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 Nellie Quezada DPM, [facility] [phone] 01/26/18 1678 <Electronically signed by Nellie Quezada DPM> Date Nellie Fascichristy DPM Cosigner Signature (if applicable): Date CC: Pia Newton MD; Nellie Quezada DPM; Ying Bejarano MD; Gerson Elizondo MD Signed BEDSIDE GLUCOSE Collected: 01/26/2018 Status: F Source: ANA 6:18 AM [facility] REPOSITORY TYPE CODE TESTS RESULT OUT OF RANGE REFERENCE UNITS LAB L501.080 70-110 mg/dL Normal BEDSIDE GLU 108 Result Comment: MANAGEMENT OF PATIENT CARE PER NURSING PROTOCOL Performed By: #### L501.080 #### [facility] Point of Care [address] [place], [place] [id number] VANCOMYCIN, RANDOM Collected: 01/25/2018 Status: F Source: ANA LEVEL 10:47 PM [facility] REPOSITORY TYPE CODE TESTS RESULT OUT OF REFERENCE UNITS RANGE LAB L501.8850 0.0-15.0 ug/mL High VANCO, RANDOM 21.2 Result Comment: VANCOMYCIN STANDARD DRUG THERAPY: CRITICAL VALUE IS > 15.0 mg/L VANCOMYCIN HIGH INTENSITY THERAPY: CRITICAL VALUE IS > 20.0 mg/L PLEASE CONTACT PHARMACY SERVICES (#[id number]) FOR INTERPRETATION OF RESULTS. THIS RESULT DOES NOT REPRESENT A PEAK OR TROUGH LEVEL FOR THIS DRUG. Performed By: #### L501.8850 #### [facility] [address] [place], [place], [address] BEDSIDE GLUCOSE Collected: 01/25/2018 Status: F Source: ANA 6:37 AM [facility] REPOSITORY TYPE CODE TESTS RESULT OUT OF RANGE REFERENCE UNITS LAB L501.080 70-110 mg/dL Normal BEDSIDE GLU 110 Result Comment: MANAGEMENT OF PATIENT CARE PER NURSING PROTOCOL Performed By: #### L501.080 #### [facility] Point of Care [address] [place], [place] [address] VANCOMYCIN, RANDOM Collected: 01/24/2018 Status: F Source: ANA LEVEL 10:56 PM [facility] REPOSITORY TYPE CODE TESTS RESULT OUT OF REFERENCE UNITS RANGE LAB L501.8850 0.0-15.0 ug/mL High VANCO, RANDOM 27.1 Result Comment: VANCOMYCIN STANDARD DRUG THERAPY: CRITICAL VALUE IS > 15.0 mg/L VANCOMYCIN HIGH INTENSITY THERAPY: CRITICAL VALUE IS > 20.0 mg/L PLEASE CONTACT PHARMACY SERVICES (#4974) FOR INTERPRETATION OF RESULTS. THIS RESULT DOES NOT REPRESENT A PEAK OR TROUGH LEVEL FOR THIS DRUG. Performed By: #### L501.8850 #### [facility] [address] [place], [address] BEDSIDE GLUCOSE Collected: 01/24/2018 Status: F Source: ANA 8:31 PM [facility] REPOSITORY TYPE CODE TESTS RESULT OUT OF REFERENCE UNITS RANGE LAB L501.080 70-110 mg/dL High BEDSIDE GLU 152 Result Comment: MANAGEMENT OF PATIENT CARE PER NURSING PROTOCOL Performed By: #### L501.080 #### [facility] Point of Care [address] [place] [address] BEDSIDE GLUCOSE Collected: 01/24/2018 Status: F Source: ANA 4:50 PM [facility] REPOSITORY TYPE CODE TESTS RESULT OUT OF REFERENCE UNITS RANGE LAB L501.080 70-110 mg/dL High BEDSIDE GLU 124 Result Comment: MANAGEMENT OF PATIENT CARE PER NURSING PROTOCOL Performed By: #### L501.080 #### [facility] Point of Care [address] [place] [address] BEDSIDE GLUCOSE Collected: 01/24/2018 Status: F Source: ANA 11:09 AM [facility] REPOSITORY TYPE CODE TESTS RESULT OUT OF REFERENCE UNITS RANGE LAB L501.080 70-110 mg/dL High BEDSIDE GLU 118 Result Comment: MANAGEMENT OF PATIENT CARE PER NURSING PROTOCOL Performed By: #### L501.080 #### [facility] Point of Care [address] [place] [address] BEDSIDE GLUCOSE Collected: 01/24/2018 Status: F Source: ANA 6:43 AM [facility] REPOSITORY TYPE CODE TESTS RESULT OUT OF RANGE REFERENCE UNITS LAB L501.080 70-110 mg/dL Normal BEDSIDE GLU 101 Result Comment: MANAGEMENT OF PATIENT CARE PER NURSING PROTOCOL Performed By: #### L501.080 #### [facility] Point of Care [address] [place] [address] VANCOMYCIN, TROUGH Collected: 01/23/2018 Status: F Source: ANA LEVEL 11:38 PM [facility] REPOSITORY Order Comment: Time Medication is to [...] (Ventilator/Healtcare Associated) -Sepsis PLEASE CONTACT PHARMACY SERVICES (#[id number]) FOR INTERPRETATION OF RESULTS. Performed By: #### L501.8820 #### [facility] [address] [place], [place] [address]. [place], [address] BEDSIDE GLUCOSE Collected: 01/23/2018 Status: F Source: ANA 9:45 PM [facility] REPOSITORY TYPE CODE TESTS RESULT OUT OF REFERENCE UNITS RANGE LAB L501.080 70-110 mg/dL High BEDSIDE GLU 150 Result Comment: MANAGEMENT OF PATIENT CARE PER NURSING PROTOCOL Performed By: #### L501.080 #### [facility] Point of Care [address] [place] [address] BEDSIDE GLUCOSE Collected: 01/23/2018 Status: F Source: ANA 5:06 PM [facility] REPOSITORY TYPE CODE TESTS RESULT OUT OF RANGE REFERENCE UNITS LAB L501.080 70-110 mg/dL Normal BEDSIDE GLU 99 Result Comment: MANAGEMENT OF PATIENT CARE PER NURSING PROTOCOL Performed By: #### L501.080 #### [facility] Point of Care [address] [place] [address] BEDSIDE GLUCOSE Collected: 01/23/2018 Status: F Source: ANA 11:19 AM [facility] REPOSITORY TYPE CODE TESTS RESULT OUT OF REFERENCE UNITS RANGE LAB L501.080 70-110 mg/dL High BEDSIDE GLU 113 Result Comment: MANAGEMENT OF PATIENT CARE PER NURSING PROTOCOL Performed By: #### L501.080 #### [facility] Point of Care [address] [place] [address] BEDSIDE GLUCOSE Collected: 01/23/2018 Status: F Source: ANA 6:29 AM [facility] REPOSITORY TYPE CODE TESTS RESULT OUT OF REFERENCE UNITS RANGE LAB L501.080 70-110 mg/dL High BEDSIDE GLU 119 Result Comment: MANAGEMENT OF PATIENT CARE PER NURSING PROTOCOL Performed By: #### L501.080 #### [facility] Point of Care [address] [place] [address] BASIC METABOLIC Collected: 01/23/2018 Status: F Source: ANA PROFILE (BMP) 5:42 AM [facility] REPOSITORY TYPE CODE TESTS RESULT OUT OF [...] GAP 11 Performed By: #### L500.2500 #### [facility] [address] [facility] [place], [address] BEDSIDE GLUCOSE Collected: 01/22/2018 Status: F Source: [place] 9:03 PM [facility] REPOSITORY TYPE CODE TESTS RESULT OUT OF REFERENCE UNITS RANGE LAB L501.080 70-110 mg/dL High BEDSIDE GLU 166 Result Comment: MANAGEMENT OF PATIENT CARE PER NURSING PROTOCOL Performed By: #### L501.080 #### [facility] Point of Care [address] [facility] [place] [address] HISTORY AND PHYSICAL Observed: 01/22/2018 Status: F Source: [place] EXAM 5:48 PM [facility] REPOSITORY [facility] Medical Records Department [address] [place] [address] History and Physical 01/21/182119 MR#: [id number] Acct: [id number] Name: KANDY LAUREN ANN Rep #: [id number] : 1960 57 From: Gerson Elizondo MD PCP: Pia Newton MD Status: ADM IN Location: [place] [address]-1 ADDENDUM by Gerson Elizondo MD on 01/22/18 [...] with below past medical history presented to [facility] Emergency Department 01/16/2018 with left ankle pain, infection. 01/16/2018 Chest X-ray showed mild cardiomegaly, early congestive heart failure. 01/16/2018 EKG sinus rhythm with occasional PVC, low voltage QRS, nonspecific T wave abnormality, prolonged QT. 11/07/2017 left ankle open fracture, ORIF at [facility] [place] [facility]. Developed osteomyelitis, patient refused left below the [...] abortions. 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 * COPD - Duoneb 3ML [id number]. * Diabetes Mellitus II - Tradjenta 5MG daily. 01/21/182142 <Electronically signed by Gerson Elizondo MD> Date Gerson Elizondo MD Cosign Signature: Date (if applicable) CC: Pia Newton MD; Gerson Elizondo MD Signed BEDSIDE GLUCOSE Collected: 01/22/2018 Status: F Source: ANA 4:55 PM [facility] REPOSITORY TYPE CODE TESTS RESULT OUT OF REFERENCE UNITS RANGE LAB L501.080 70-110 mg/dL High BEDSIDE GLU 164 Result Comment: Dr Shannon Followed MANAGEMENT OF PATIENT CARE PER NURSING PROTOCOL Performed By: #### L501.080 #### [facility] Point of Care [address] [place] [address] BEDSIDE GLUCOSE Collected: 01/22/2018 Status: F Source: ANA 11:07 AM [facility] REPOSITORY TYPE CODE TESTS RESULT OUT OF REFERENCE UNITS RANGE LAB L501.080 70-110 mg/dL High BEDSIDE GLU 209 Result Comment: MANAGEMENT OF PATIENT CARE PER NURSING PROTOCOL Performed By: #### L501.080 #### [facility] Point of Care [address] [place] [address] ELBOW 2 VIEWS Observed: 01/22/2018 Status: F Source: ANA 10:56 AM [facility] REPOSITORY [facility] Imaging Services [address] [place] [address] Elbow 2 Views MR#: [id number] Acct: [id number] Name: KANDY LAUREN ANN Rep #: [id number] : 1960 F 57 From: Mahesh Olivia MD PCP: Pia Newton MD Status: ADM IN Study: Elbow 2 Views Date of Exam: 01/22/18 Exam# [id number] Ordering Dr: Ying Bejarano MD STUDY: X-RAY - LEFT ELBOW REASON FOR EXAM: Female, 57 years old. Elbow pain. TECHNIQUE: AP and lateral view(s) of the elbow. COMPARISON: None. FINDINGS: Normal visualized humerus, radius and ulna. Normal radiocapitellar and ulnotrochlear articulations. Joint effusion. RAD/Elbow 2 Views IMPRESSION: Joint effusion. Electronically Signed: Mahesh Olivia MD at 14:40 EDT Tel [phone], Service support , CC: Pia Newton MD; Ying Bejarano MD Procedure Rn: Signed SHOULDER MIN 2 VIEWS Observed: 01/22/2018 Status: F Source: ANA 10:56 AM [facility] REPOSITORY [facility] Imaging Services [address] [place] [address] Shoulder min 2 Views MR#: [id number] Acct: [id number] Name: KANDY LAUREN ANN Rep #: [id number] : 1960 F 57 From: Mahesh Olivia MD PCP: Pia Newton MD Status: ADM IN Study: Shoulder min 2 Views Date of Exam: 01/22/18 Exam# [id number] Ordering Dr: Ying Bejarano MD STUDY: X-RAY [...] Mahesh Olivia MD at 14:40 EDT Tel [phone], Service support , CC: Pia Newton MD; Ying Bejarano MD Procedure Rn: Signed BEDSIDE GLUCOSE Collected: 01/22/2018 Status: F Source: [place] 6:31 AM [facility] REPOSITORY TYPE CODE TESTS RESULT OUT OF RANGE REFERENCE UNITS LAB L501.080 70-110 mg/dL Normal BEDSIDE GLU 108 Result Comment: MANAGEMENT OF PATIENT CARE PER NURSING PROTOCOL Performed By: #### L501.080 #### [facility] Point of Care [facility] [address] [place], [place] [address] CBC W/DIFF, AUTOMATED Collected: 01/22/2018 Status: C Source: [place] 5:20 AM [facility] REPOSITORY TYPE CODE TESTS RESULT OUT OF [...] July faith Performed By: #### L100.0100 #### [facility] [address] [place], [address] BASIC METABOLIC Collected: 01/22/2018 Status: F Source: ANA PROFILE ([facility]) 5:20 AM [facility] REPOSITORY TYPE CODE TESTS RESULT OUT OF [...] GAP 10 Performed By: #### L500.2500 #### [facility] [address] [facility] [place], [address] HEMOGLOBIN A1C Collected: 01/22/2018 Status: F Source: ANA 5:20 AM [facility] REPOSITORY TYPE CODE TESTS RESULT OUT OF RANGE REFERENCE UNITS LAB L501.9985 4.2-6.3 % Normal HGB A1C 5.6 Performed By: #### L501.9985 #### [facility] [address] [facility] [place], [address] BEDSIDE GLUCOSE Collected: 01/21/2018 Status: F Source: ANA 8:43 PM [facility] REPOSITORY TYPE CODE TESTS RESULT OUT OF REFERENCE UNITS RANGE LAB L501.080 70-110 mg/dL High BEDSIDE GLU 184 Result Comment: MANAGEMENT OF PATIENT CARE PER NURSING PROTOCOL Performed By: #### L501.080 #### [facility] Point of Care [address] [facility] [place] [address] BEDSIDE GLUCOSE Collected: 01/21/2018 Status: F Source: ANA 4:51 PM [facility] REPOSITORY TYPE CODE TESTS RESULT OUT OF REFERENCE UNITS RANGE LAB L501.080 70-110 mg/dL High BEDSIDE GLU 112 Result Comment: MANAGEMENT OF PATIENT CARE PER NURSING PROTOCOL Performed By: #### L501.080 #### [facility] Point of Care [address] [place] [address] DISCHARGE SUMMARY Observed: 01/21/2018 Status: F Source: [place] 3:10 PM [facility] REPOSITORY [facility] Medical Records Department [address] [place] [address] Discharge Summary 01/21/18 1339 MR#: [id number] Acct: [id number] Name: KANDY LAUREN ANN Rep #: [id number] : 1960 57 From: Cuco DOYLE PCP: Pia Newton MD Status: ADM IN Y Location: [place] [address] <Cuco Webber - Last Filed: 01/21/18 13:50> [...] be biphasic flow. Consultations 01/16/18 23:13 Consult: Onc/Wound/base brander Routine Comment: Operations: - - Left ankle [...] to be. The patient had initially gone [facility] and an amputation had been recommended and [...] 6 weeks of antibiotic therapy. She needs long term for rehabilitation. Infectious disease will follow the patient and as final cultures are obtained antibiotics can be further narrowed. At this time the toes is held and she is placed on sliding scale insulin instead as she cannot have this at long term facility. Blood cultures are negative. She will need close follow-up with podiatry, and infectious disease. She should also follow-up with her coding educator Dr. Rivas. She was discharged to long term in stable condition. This patient was seen by Cuco Webber PA-C under the supervision of Doctor Hillman. [] Patient Problems: Active and Suspected Problems [...] 2 weeks Please Follow Up With: Candi Cvoington DPM When: as directed Please Follow Up With: Lney Jimenez MD When: 2-3 weeks Please Follow Up With: Ying Bejarano MD When: 1 week Disposition: Longterm facility Minutes spent on discharge:: 35 Patient [...] Course and Treatment Consultations 01/16/18 23:13 Consult: Onc/Wound/base brander Routine Comment: Summary of Care Provided: The [...] Output for Last 24 Hours Intake Total 204 / 2046 2642 / 2642 2618 / 2618 Output Total 1002 / 1002 1125 / 1125 2024 / 202 Balance 1045 / 1045 1517 / 1517 [...] and light compression. Inpatient E AND M: 44629 Disch Hosp 01/21/18 1350 <Electronically signed by Cuco DOYLE> Date Cuco DOYLE 01/21/18 1510<Electronically signed by Everett Hillman MD> Cosigner Signature (if applicable): Date Everett Hillman MD CC: YANIRA Webber; Pia Newton MD; Everett Hillman MD Signed TRANSFER TO [facility] Observed: 01/21/2018 Status: F Source: [facility] 12:21 PM [facility] REPOSITORY [facility] Medical Records Department [address] [place] [address] Transfer to [facility] MR#: [id number] Acct: [id number] Name: KANDY LAUREN Rep #: [id number] : 1960 57 From: Cuco DOYLE PCP: Pia Newton MD Status: ADM IN KANDY LAUREN (Patient) (Health Ins. Claim No.) (Day of Discharge to Facility) Certification of patient admission REQUIRED AT TIME OF ADMISSION. I CERTIFY THAT POST-HOSPITAL F SERVICES ARE REQUIRED TO BE GIVEN ON AN IN-PATIENT BASIS BECAUSE OF THE ABOVE NAMED PATIENT'S NEED FOR GROUP HOME CARE ON A CONTINUING BASIS FOR THE CONDITION(S) FOR WHICH HE/SHE WAS RECEIVING IN-PATIENT HOSPITAL SERVICES PRIOR TO HIS/HER TRANSFER TO THE F. 01/21/18 1125 <Electronically signed by Cuco DOYLE> [...] 2 weeks Please Follow Up With: Candi Covnigton DPM When: as directed Please Follow Up With: Leny Jimenez MD When: 2-3 weeks Please Follow Up With: Ying Bejarano MD When: 1 week 01/21/18 1125 <Electronically signed by Cuco DOYLE> Date Cuco DOYLE CC: NORA Covington; Jose Robbins MD; Pia Newton MD; Ying Bejarano MD Signed CONSULTATION Observed: 01/21/2018 Status: F Source: [place] 12:17 PM [facility] REPOSITORY [facility] Medical Records Department [address] [place] [address] Consultation 01/21/18 1210 MR#: [id number] Acct: [id number] Name: KANDY LAUREN ANN Rep #: [id number] : 1960 57 From: Jose Robbins MD PCP: Pia Newton MD Status: ADM IN Y [facility] Problem List (1) Blister (nonthermal), right great [...] seen at [facility] is now here at [facility] and concerned that cannot be unable to [...] (Acute) Tobacco abuse counseling (Acute) 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 [...] Jose Robbins MD> Date Jose Robbins MD [facility] Signature (if applicable): Date CC: NORA Covington; Jose Robbins MD; Pia Newtno MD; Juan Tavarez MD; Ying Bejarano MD Signed BEDSIDE GLUCOSE Collected: 01/21/2018 Status: F Source: ANA 11:37 AM [facility] REPOSITORY TYPE CODE TESTS RESULT OUT OF REFERENCE UNITS RANGE LAB L501.080 70-110 mg/dL High BEDSIDE GLU 114 Result Comment: MANAGEMENT OF PATIENT CARE PER NURSING PROTOCOL Performed By: #### L501.080 #### [facility] Point of Care [address] [place] [address] BEDSIDE GLUCOSE Collected: 01/21/2018 Status: F Source: ANA 6:55 AM [facility] REPOSITORY TYPE CODE TESTS RESULT OUT OF REFERENCE UNITS RANGE LAB L501.080 70-110 mg/dL High BEDSIDE GLU 137 Result Comment: MANAGEMENT OF PATIENT CARE PER NURSING PROTOCOL Performed By: #### L501.080 #### [facility] Point of Care [address] [place] [address] BASIC METABOLIC Collected: 01/21/2018 Status: F Source: ANA PROFILE (BMP) 5:10 AM [facility] REPOSITORY TYPE CODE TESTS RESULT OUT OF [...] GAP 9 Performed By: #### L500.2500 #### [facility] [address] [place], [address] CBC W/DIFF, AUTOMATED Collected: 01/21/2018 Status: C Source: ANA 5:10 AM [facility] REPOSITORY TYPE CODE TESTS RESULT OUT OF [...] 01/22/18 1325 PATH REV previously reported as: July Performed By: #### L100.0100 #### [facility] [address] [place], [place], [address] BEDSIDE GLUCOSE Collected: 01/20/2018 Status: F Source: ANA 8:43 PM [facility] REPOSITORY TYPE CODE TESTS RESULT OUT OF REFERENCE UNITS RANGE LAB L501.080 70-110 mg/dL High BEDSIDE GLU 178 Result Comment: MANAGEMENT OF PATIENT CARE PER NURSING PROTOCOL Performed By: #### L501.080 #### [facility] Point of Care [address] [place] [address] BEDSIDE GLUCOSE Collected: 01/20/2018 Status: F Source: ANA 4:18 PM [facility] REPOSITORY TYPE CODE TESTS RESULT OUT OF REFERENCE UNITS RANGE LAB L501.080 70-110 mg/dL High BEDSIDE GLU 153 Result Comment: MANAGEMENT OF PATIENT CARE PER NURSING PROTOCOL Performed By: #### L501.080 #### [facility] Point of Care [address] [place] [address] BEDSIDE GLUCOSE Collected: 01/20/2018 Status: F Source: [place] 11:40 AM [facility] REPOSITORY TYPE CODE TESTS RESULT OUT OF RANGE REFERENCE UNITS LAB L501.080 70-110 mg/dL Normal BEDSIDE GLU 110 Result Comment: MANAGEMENT OF PATIENT CARE PER NURSING PROTOCOL Performed By: #### L501.080 #### [facility] Point of Care [address] [place] [address] OPERATIVE REPORT Observed: 01/20/2018 Status: F Source: [place] 11:18 AM [facility] REPOSITORY [facility] Medical Records Department [address] [place] [address] Operative Report 01/20/18 1100 MR#: [id number] Acct: [id number] Name: KANDY LAUREN ANN Rep #: [id number] : 1960 57 From: Candi Covington DPM PCP: Pia Newton MD Status: ADM IN Location: [place] [address] Report of Operation Date of Procedure: 01/20/18 [...] LLE. She presented to my office last [place] for a second opinion of BKA vs Limb salvage. After extensive discussion with the patient about the high risk she is for limb loss and what the potential course of limb salvage would be. She agreeed to proceed with limb salvage. She was sent from my office to the ER at [facility] for medical evaluation as she was febrile [...] MD Signed Observed: 01/20/2018 Status: F Source: AAN CULTURE, DEEP WOUND 10:56 AM [facility] REPOSITORY Order Date: 10/30/16 #4 BONE:LEFT DISTAL FIBULA Comments: BONE BX LEFT DISTAL FIBULA Gram Stain Gram Stain Rare White Blood Cells No organisms seen Wound Culture Copy of report sent to Infection Control Printer [id number] 01/22/18 3884 ROBIN. ORGANISM 1: Meth. resistant Staph. aureus [...] <=0.5 S (NF) indicates non-formulary drug at [facility]. Approval by Infectious Disease Specialist required before non-formulary drugs may be ordered and/or dispensed. * CLSI guidelines does not recommend testing of cephalosporins. This interpretation is deduced from Beta-lactam/penicillin results. Cult, Anaerobic No anaerobic bacteria isolated. Performed By: #### M100.1500 #### [facility] [address] [place], [address] AFB Observed: 01/20/2018 Status: F Source: [place] CULT/SMEAR [id number] 10:56 AM [facility] REPOSITORY Comments: BONE BX LEFT DISTAL FIBULA Is this test to exclude patient from TB Isolation? N #4 BONE:LEFT DISTAL FIBULA AFB Smear/Fluor TESTING PERFORMED AT [facility]. ORIGINAL REPORT ON FILE IN LAB CONTAINS ADDITIONAL TEST SITE INFORMATION. Smear, Acid Fast Tissue Grinding Smear: Negative AFB [facility] ORIGINAL REPORT ON FILE IN LAB CONTAINS ADDITIONAL TEST SITE INFORMATION. Culture, Acid Fast NO ACID-FAST BACILLI ISOLATED AFTER 6 WEEKS. Performed By: #### M100.3880, M6.1899 #### [facility] [address] [place], [address] Observed: 01/20/2018 Status: F Source: ANA ESCALONA FUNGUS W/ 10:56 [facility] [id number] REPOSITORY Comments: BONE BX LEFT DISTAL FIBULA Is this test to exclude patient from TB Isolation? N #4 BONE:LEFT DISTAL FIBULA Cu,[id number] TESTING PERFORMED AT [facility]. ORIGINAL REPORT ON FILE IN LAB CONTAINS ADDITIONAL TEST SITE INFORMATION. CUF No yeast or mold isolated after [address]136 TESTING PERFORMED AT [facility]. ORIGINAL REPORT ON FILE IN LAB CONTAINS ADDITIONAL TEST SITE INFORMATION. Fungus Stain No yeast or mold observed. Performed By: #### M100.3880, .0 #### [facility] [address] [place], [address] Observed: 01/20/2018 Status: F Source: ANA CULTURE, DEEP WOUND 10:55 AM [facility] REPOSITORY Order Date: 10/30/16 #3 BONE:LEFT MEDIAL MALLEOLUS Comments: BONE BX LEFT MEDIAL MALLEOLUS Gram Stain Gram Stain No White Blood Cells No organisms seen Wound Culture #2 There are no CLSI standards for interpretation of this Drug/Organism combination. Copy of report sent to Infection Control Printer [id number] 01/23/18 0812 DCANNON. ORGANISM 1: Meth. resistant Staph. aureus [...] 1 S (NF) indicates non-formulary drug at [facility]. Approval by Infectious Disease Specialist required [...] 1 S (NF) indicates non-formulary drug at [facility]. Approval by Infectious Disease Specialist required before non-formulary drugs may be ordered and/or dispensed. * CLSI guidelines does not recommend testing of cephalosporins. This interpretation is deduced from Beta-lactam/penicillin results. Cult, Anaerobic No anaerobic bacteria isolated. Performed By: #### M100.1500 #### [place] [facility] [address] [place], [address] [employer] Observed: 01/20/2018 Status: F Source: ANA CULT/SMEAR [id number] 10:55 [facility] REPOSITORY Comments: BONE BX LEFT MEDIAL MALLEOLUS Is this test to exclude patient from TB Isolation? N #3 LEFT MEDIAL MALLEOLUS AFB Smear/Fluor TESTING PERFORMED AT [facility]. ORIGINAL REPORT ON FILE IN LAB CONTAINS ADDITIONAL TEST SITE INFORMATION. Smear, Acid Fast Tissue Grinding Smear: Negative AFB Cult TESTING PERFORMED AT [facility]. ORIGINAL REPORT ON FILE IN LAB CONTAINS ADDITIONAL TEST SITE INFORMATION. Culture, Acid Fast NO ACID-FAST BACILLI ISOLATED AFTER 6 WEEKS. Performed By: #### M100.3880, M600.1900 #### [place] [facility] [address] [place], [address] Observed: 01/20/2018 Status: F Source: ANA ESCALONA, FUNGUS W/ 10:55 [facility] [id number] REPOSITORY Comments: BONE BX LEFT MEDIAL MALLEOLUS Is this test to exclude patient from TB Isolation? N #3 LEFT MEDIAL MALLEOLUS Cu,[id number] TESTING PERFORMED AT [facility]. ORIGINAL REPORT ON FILE IN LAB CONTAINS ADDITIONAL TEST SITE INFORMATION. CUF No yeast or mold isolated after [address] [facility] ORIGINAL REPORT ON FILE IN LAB CONTAINS ADDITIONAL TEST SITE INFORMATION. Fungus Stain No yeast or mold observed. Performed By: #### M100.3880, M600.1900 #### [facility] [address] [place] [address]. [place], [place], [address] Observed: 01/20/2018 Status: F Source: ANA CULTURE, DEEP WOUND 10:53 [facility] REPOSITORY Order Date: 10/30/16 #2 BONE:LEFT TALUS Comments: BONE BX LEFT TALUS Gram Stain Gram Stain No organisms seen No cells seen Wound Culture No growth aerobically. Cult, Anaerobic No growth in 5 days. Performed By: #### M100.1500 #### [facility] [address] [place] [address]. [place], [address] [employer] Observed: 01/20/2018 Status: F Source: ANA CULT/SMEAR [id number] 10:53 [facility] REPOSITORY Comments: BONE BX LEFT TALUS Is this test to exclude patient from TB Isolation? N #2 BONE:LEFT TALLUS AFB Smear/Fluor TESTING PERFORMED AT [facility]. ORIGINAL REPORT ON FILE IN LAB CONTAINS ADDITIONAL TEST SITE INFORMATION. Smear, Acid Fast Tissue Grinding Smear: Negative AFB Cult TESTING PERFORMED AT [facility] ORIGINAL REPORT ON FILE IN LAB CONTAINS ADDITIONAL TEST SITE INFORMATION. Culture, Acid Fast NO ACID-FAST BACILLI ISOLATED AFTER 6 WEEKS. Performed By: #### M100.3880, M600.1900 #### [facility] [address] [place], [address] Observed: 01/20/2018 Status: F Source: ANA ESCALONA FUNGUS W/ 10:53 [facility] [id number] REPOSITORY Comments: BONE BX LEFT TALUS Is this test to exclude patient from TB Isolation? N #2 BONE:LEFT TALLUS Cu,[id number] [facility] ORIGINAL REPORT ON FILE IN LAB CONTAINS ADDITIONAL TEST SITE INFORMATION. CUF No yeast or mold isolated after [address] TESTING PERFORMED AT [facility]. ORIGINAL REPORT ON FILE IN LAB CONTAINS ADDITIONAL TEST SITE INFORMATION. Fungus Stain No yeast or mold observed. Performed By: #### M100.3880, M600.1900 #### [facility] [address] [place], [address] Observed: 01/20/2018 Status: F Source: ANA ESCALONA, DEEP WOUND 10:51 AM [facility] REPOSITORY Order Date: 10/30/16 #1 DISTAL LEFT [...] 1 S (NF) indicates non-formulary drug at [facility]. Approval by Infectious Disease Specialist required before non-formulary drugs may be ordered and/or dispensed. * CLSI guidelines does not recommend testing of cephalosporins. This interpretation is deduced from Beta-lactam/penicillin results. Cult, Anaerobic No growth in 5 days. Performed By: #### M100.1500 #### [facility] [address] [place], [address] [employer] Observed: 01/20/2018 Status: F Source: [place] CULT/SMEAR [id number] 10:51 AM [facility] REPOSITORY Comments: BONE BX LEFT DISTAL TIBIA Is this test to exclude patient from TB Isolation? N #1 DISTAL LEFT TIBIA AFB Smear[facility]Fluor [facility] ORIGINAL REPORT ON FILE IN LAB CONTAINS ADDITIONAL TEST SITE INFORMATION. Smear, Acid Fast Tissue Grinding Smear: Negative AFB Cult TESTING PERFORMED AT [facility] ORIGINAL REPORT ON FILE IN LAB CONTAINS ADDITIONAL TEST SITE INFORMATION. Culture, Acid Fast NO ACID-FAST BACILLI ISOLATED AFTER 6 WEEKS. Performed By: #### M100.3880, M600.1900 #### [facility] [address] [place], [address] Observed: 01/20/2018 Status: F Source: MAURI CHAMORRO W/ 10:51 AM [facility] [id number] REPOSITORY Comments: BONE BX LEFT DISTAL TIBIA Is this test to exclude patient from TB Isolation? N #1 DISTAL LEFT TIBIA Cu,[id number] TESTING PERFORMED AT [facility]. ORIGINAL REPORT ON FILE IN LAB CONTAINS ADDITIONAL TEST SITE INFORMATION. CUF No yeast or mold isolated after [address] TESTING PERFORMED AT [facility]. ORIGINAL REPORT ON FILE IN LAB CONTAINS ADDITIONAL TEST SITE INFORMATION. Fungus Stain No yeast or mold observed. Performed By: #### M100.3880, M600.1900 #### [facility] [address] [place], [address] BEDSIDE GLUCOSE Collected: 01/20/2018 Status: F Source: ANA 6:51 [facility] REPOSITORY TYPE CODE TESTS RESULT OUT OF REFERENCE UNITS RANGE LAB L501.080 70-110 mg/dL High BEDSIDE GLU 120 Result Comment: MANAGEMENT OF PATIENT CARE PER NURSING PROTOCOL Performed By: #### L501.080 #### [facility] Point of Care [address] [place] [address] BASIC METABOLIC Collected: 01/20/2018 Status: F Source: ANA PROFILE (BMP) 5:10 AM [facility] REPOSITORY TYPE CODE TESTS RESULT OUT OF [...] GAP 9 Performed By: #### L500.2500 #### [facility] [address] [place], [place], [address] CBC-COMPLETE BLOOD CNT Collected: 01/20/2018 Status: F Source: ANA NO DIFF 5:10 AM [facility] REPOSITORY TYPE CODE TESTS RESULT OUT OF [...] Performed By: #### L100.0500, L300.3900, L300.4310 #### [facility] [address] [place], [address] PROTHROMBIN TIME W/INR Collected: 01/20/2018 Status: F Source: [place] 5:10 AM [facility] REPOSITORY TYPE CODE TESTS RESULT OUT OF RANGE REFERENCE UNITS LAB L300.4150 11.7-14.9 SECONDS Normal PROTIME 14.1 LAB L300.4200 Normal INR 1.1 Performed By: #### L100.0500, L300.3900, L300.4310 #### [facility] [address] [place], [place], [address] PARTIAL THROMBOPLAST Collected: 01/20/2018 Status: F Source: [place] TIME 5:10 AM [facility] REPOSITORY TYPE CODE TESTS RESULT OUT OF REFERENCE UNITS RANGE LAB L300.4310 24.1-36.2 Seconds High PTT 45.6 Performed By: #### L100.0500, L300.3900, L300.4310 #### [facility] [address] [place], [address] BONE (FX/NONFRACTURE) Observed: 01/20/2018 Status: F Source: ANA 12:00 AM [facility] REPOSITORY Patient: KANDY LAUREN : 1960 (57/F) Acct Num: [id number] Phys: Everett Hillman MD Unit Num: [id number] Loc: [facility] [id number] Specimen: [id number] Received: 01/20/18 - 1418 Spec Type: Bone TISSUES 1 TISSUES: [...] after decalcification. / JOSE LUIS:jason TC:2 CPT: 24834 x4, 06995 x4 HEADER OPERATION: Wash out, bone debridement, [...] A piece of bone with acute osteomyelitis. JOSE LUIS:jason 01/23/18 Signed Sid Cruzin 01/23/18 <signature on file> Performed By: #### PBON #### [facility] [address] [place], [address] BEDSIDE GLUCOSE Collected: 01/19/2018 Status: F Source: ANA 9:44 PM [facility] REPOSITORY TYPE CODE TESTS RESULT OUT OF REFERENCE UNITS RANGE LAB L501.080 70-110 mg/dL High BEDSIDE GLU 160 Result Comment: MANAGEMENT OF PATIENT CARE PER NURSING PROTOCOL Performed By: #### L501.080 #### [facility] Point of Care [address] [place] [address] BEDSIDE GLUCOSE Collected: 01/19/2018 Status: F Source: ANA 4:50 PM [facility] REPOSITORY TYPE CODE TESTS RESULT OUT OF REFERENCE UNITS RANGE LAB L501.080 70-110 mg/dL High BEDSIDE GLU 126 Result Comment: MANAGEMENT OF PATIENT CARE PER NURSING PROTOCOL Performed By: #### L501.080 #### [facility] Point of Care [address] [place] [address] Observed: 01/19/2018 Status: F Source: ANA CULTURE, BLOOD (WB) 12:55 PM [facility] REPOSITORY BC No growth in 5 days. Performed By: #### M200.1000 #### [facility] [facility] [place], [address] CONSULTATION Observed: 01/19/2018 Status: F Source: ANA 12:35 PM [facility] REPOSITORY [facility] Medical Records Department [address] [place], [place] [address] [address] Consultation 01/19/18 1227 MR#: [id number] Acct: [id number] Name: KANDY LAUREN ANN Rep #: [id number] : 1960 57 From: Ying Bejarano MD PCP: Pia Newton MD Status: ADM IN Y Location: [facility] [id number] Problem List (1) Acute osteomyelitis involving ankle and foot Status: Acute Reason for Consult: osteo Consulted by: Dr. Lema History of Present Illness: The patient is a 57 year old F with DM, had L ankle fracture in October, taken to [place] 10/2017, required multiple surgeries after that, now hardware in place. Treated by ID at [facility] 11/2017 for PsA infection with cipro and for cdiff, treated with po vanc. Has been off abx for a few weeks now. Came to hospital with 1-2 weeks of increased LLE pain, redness, swelling, and purulent discharge. Admitted back to [facility], refused BKA. Had Bcx done 01/13, now [...] cefepime given past cx here and at [facility] with Pseudomonas spp. Cr at baseline. Will follow, thank you. 01/19/18 7975 <Electronically signed by Ying Bejarano MD> Date Ying Bejarano MD Cosigner Signature (if applicable): Date CC: NORA Covington; Jose Robbins MD; Pia Newton MD; Juan Tavarez MD; Ying Bejarano MD Signed 12 LEAD ELECTROCARDIOGRAM Observed: 01/19/2018 Status: F Source: ANA 12:25 PM [facility] REPOSITORY [facility] Cardiovascular Services [address] [place] [address] 12 Lead EKG 01/16/18 1844 MR#: [id number] Acct: [id number] Name: KANDY LAUREN ANN Rep #: [id number] : 1960 57 From: Sravan James MD Attending Dr: Everett Hillman MD Status: ADM IN Ordering Dr: Juan Tavarez MD Date: 01/16/18 Location: [facility] Sex: F C Admitted: 01/16/18 Test Reason [...] Abnormal ECG Confirmed by TOÑA SKINNER, SRAVAN ([id number]), society editor ANA ROSA BAEZA ([id number]) on 01/19/2018 12:25:21 PM Referred By: Juan Tavarez Confirmed By:SRAVAN JAMES MD 01/19/18 1225 Date Sravan James MD CC: Pia Newton MD; Juan Tavarez MD; Everett Hillman MD Signed BEDSIDE GLUCOSE Collected: 01/19/2018 Status: F Source: ANA 11:02 AM [facility] REPOSITORY TYPE CODE TESTS RESULT OUT OF REFERENCE UNITS RANGE LAB L501.080 70-110 mg/dL High BEDSIDE GLU 136 Result Comment: MANAGEMENT OF PATIENT CARE PER NURSING PROTOCOL Performed By: #### L501.080 #### [facility] Point of Care [address] [place] [address] ANKLE 2 VIEWS Observed: 01/19/2018 Status: F Source: [place] 9:57 AM [facility] REPOSITORY [facility] Imaging Services [address] [place] [address] Ankle 2 Views MR#: [id number] Acct: [id number] Name: KANDY LAUREN Rep #: [id number] : 1960 F 57 From: Mahesh Olivia MD PCP: Pia Newton MD Status: ADM IN Study: Ankle 2 Views Date of Exam: 01/20/18 Exam# [id number] Ordering Dr: Candi Covington DPM STUDY: X-RAY - LEFT ANKLE REASON FOR EXAM: Female, 57 years old. Intraoperative ankle debridement. TECHNIQUE: 1 coned-down intraoperative view(s) of the ankle. COMPARISON: None. FINDINGS: A single view was obtained intraoperatively for debridement. RAD/Ankle 2 Views IMPRESSION: Intraoperative imaging. Electronically Signed: Mahesh Olivia MD at 14:53 EDT Tel [phone], Service support , CC: NORA Coivngton; Pia Newton MD Procedure Rn: Signed BEDSIDE GLUCOSE Collected: 01/19/2018 Status: F Source: ANA 6:59 AM [facility] REPOSITORY TYPE CODE TESTS RESULT OUT OF REFERENCE UNITS RANGE LAB L501.080 70-110 mg/dL High BEDSIDE GLU 127 Result Comment: MANAGEMENT OF PATIENT CARE PER NURSING PROTOCOL Performed By: #### L501.080 #### [facility] Point of Care [address] [place] [address] BASIC METABOLIC Collected: 01/19/2018 Status: F Source: ANA PROFILE (BMP) 5:55 AM [facility] REPOSITORY TYPE CODE TESTS RESULT OUT OF [...] GAP 8 Performed By: #### L500.2500 #### [facility] [address] [place], [address] MAGNESIUM Collected: 01/19/2018 Status: F Source: ANA 5:55 AM [facility] REPOSITORY TYPE CODE TESTS RESULT OUT OF RANGE REFERENCE UNITS LAB L501.5200 1.6-2.6 mg/dL Normal MG 1.6 Performed By: #### L501.5200 #### [facility] [address] [place], [address] VANCOMYCIN, TROUGH Collected: 01/19/2018 Status: F Source: ANA LEVEL 12:22 AM [facility] REPOSITORY Order Comment: Comments: Draw 30 min [...] (Ventilator/Healtcare Associated) -Sepsis PLEASE CONTACT PHARMACY SERVICES (#[id number]) FOR INTERPRETATION OF RESULTS. Performed By: #### L501.8820 #### [facility] [address] [place], [address] BEDSIDE GLUCOSE Collected: 01/18/2018 Status: F Source: ANA 10:16 PM [facility] REPOSITORY TYPE CODE TESTS RESULT OUT OF REFERENCE UNITS RANGE LAB L501.080 70-110 mg/dL High BEDSIDE GLU 158 Result Comment: MANAGEMENT OF PATIENT CARE PER NURSING PROTOCOL Performed By: #### L501.080 #### [facility] Point of Care [address] [place] [address] BEDSIDE GLUCOSE Collected: 01/18/2018 Status: F Source: ANA 4:23 PM [facility] REPOSITORY TYPE CODE TESTS RESULT OUT OF REFERENCE UNITS RANGE LAB L501.080 70-110 mg/dL High BEDSIDE GLU 117 Result Comment: MANAGEMENT OF PATIENT CARE PER NURSING PROTOCOL Performed By: #### L501.080 #### [facility] Point of Care [address] [place] [address] BEDSIDE GLUCOSE Collected: 01/18/2018 Status: F Source: ANA 11:25 AM [facility] REPOSITORY TYPE CODE TESTS RESULT OUT OF RANGE REFERENCE UNITS LAB L501.080 70-110 mg/dL Normal BEDSIDE GLU 110 Result Comment: MANAGEMENT OF PATIENT CARE PER NURSING PROTOCOL Performed By: #### L501.080 #### [facility] Point of Care [address] [place] [address] BEDSIDE GLUCOSE Collected: 01/18/2018 Status: F Source: ANA 6:42 AM [facility] REPOSITORY TYPE CODE TESTS RESULT OUT OF REFERENCE UNITS RANGE LAB L501.080 70-110 mg/dL High BEDSIDE GLU 111 Result Comment: MANAGEMENT OF PATIENT CARE PER NURSING PROTOCOL Performed By: #### L501.080 #### [facility] Point of Care [address] [place] [address] BASIC METABOLIC Collected: 01/18/2018 Status: F Source: ANA PROFILE (BMP) 5:15 AM [facility] REPOSITORY TYPE CODE TESTS RESULT OUT OF [...] GAP 11 Performed By: #### L500.2500 #### [facility] [address] [place], [address] CBC W/DIFF, AUTOMATED Collected: 01/18/2018 Status: C Source: ANA 5:15 AM [facility] REPOSITORY TYPE CODE TESTS RESULT OUT OF [...] 01/20/18 1510 PATH REV previously reported as: Elmira cuevas Performed By: #### L100.0100 #### [facility] [address] [place], [address] BEDSIDE GLUCOSE Collected: 01/17/2018 Status: F Source: [place] 10:36 PM [facility] REPOSITORY TYPE CODE TESTS RESULT OUT OF REFERENCE UNITS RANGE LAB L501.080 70-110 mg/dL High BEDSIDE GLU 133 Result Comment: MANAGEMENT OF PATIENT CARE PER NURSING PROTOCOL Performed By: #### L501.080 #### [facility] Point of Care [address] [place] [address] CONSULTATION Observed: 01/17/2018 Status: F Source: [place] 5:04 PM [facility] REPOSITORY [facility] Medical Records Department [address] [place] [address] Consultation 01/17/18 1626 MR#: [id number] Acct: [id number] Name: KANDY LAUREN ANN Rep #: [id number] : 1960 57 From: Candi Covington DPM PCP: Pia Newton MD Status: ADM IN Location: [address] Reason for Consult Date of Consultation: 01/17/18 [...] (Acute) Tobacco abuse counseling (Acute) 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 [...] likely need of pedicle flap coverage, 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, extended time being nonweightbearing to [...] per ID -Please call with questions 01/17/18 6385 <Electronically signed by Candi Covington DPM> Date Candi Covington DPM Cosigner Signature (if applicable): Date CC: NORA Covington; Jose Robbins MD; Pia Newton MD; Juan Tavarez MD; Ying Bejarano MD Signed BEDSIDE GLUCOSE Collected: 01/17/2018 Status: F Source: ANA 4:37 PM [facility] REPOSITORY TYPE CODE TESTS RESULT OUT OF REFERENCE UNITS RANGE LAB L501.080 70-110 mg/dL High BEDSIDE GLU 168 Result Comment: MANAGEMENT OF PATIENT CARE PER NURSING PROTOCOL Performed By: #### L501.080 #### [facility] Point of Care [address] [place] [address] ECHO, COMPLETE W/ Observed: 01/17/2018 Status: F Source: ANA CONTRAST 11:42 AM [facility] REPOSITORY [facility] Cardiovascular Services [address] [place] [address] Echo Complete W/ Contrast 01/17/18 0821 MR#: [id number] Acct: [id number] Name: KANDY LAUREN Rep #: [id number] : 1960 57 From: Sravan James MD [...] Tavarez Performed By: Pa Pennington RCS 01/17/18 1142 Date Sravan James MD CC: Pia Newton MD; Darwin Lema MD; Juan Tavarez MD; Everett Hillman MD Date Dictated: 01/17/18820 Date Transcribed: 01/17/18 114 Procedure Rn: Signed Observed: 01/17/2018 Status: C Source: ANA STOOL OCCULT BLOOD 11:40 AM [facility] IFOB REPOSITORY STOB iFOB Occult Blood Positive ORGANISM 1: OCCULT BLOOD POSITIVE Performed By: #### M100.7900 #### [facility] [address] [place], [address] BEDSIDE GLUCOSE Collected: 01/17/2018 Status: F Source: ANA 11:39 AM [facility] REPOSITORY TYPE CODE TESTS RESULT OUT OF REFERENCE UNITS RANGE LAB L501.080 70-110 mg/dL High BEDSIDE GLU 163 Result Comment: MANAGEMENT OF PATIENT CARE PER NURSING PROTOCOL Performed By: #### L501.080 #### [facility] Point of Care [address] [place] [address] HISTORY AND PHYSICAL Observed: 01/17/2018 Status: F Source: [place] EXAM 8:27 AM [facility] REPOSITORY [facility] Medical Records Department [address] [place] [address] History and Physical 01/16/182132 MR#: [id number] Acct: [id number] Name: KANDY LAUREN ANN Rep #: [id number] : 1960 57 From: Darwin Lema MD PCP: Pia Newton MD Status: ADM IN Y Location: [place] [address] Problem List (1) Acute osteomyelitis involving ankle [...] of her leg symptoms patient went to [facility]. She was diagnosed with osteoarthritis and amputation was recommended. However patient refused amputation and sought a second opinion with [place] [facility]. 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 Previous diagnosis of osteomyelitis from [facility] Vancomycin ordered for possible MRSA infection. Patient [...] please consider discontinuing heparin. Code Visit Inpatient E AND M: [id number] Init Hosp L3 01/17/18 1207 <Electronically signed by Darwin Lema MD> Date Darwin Lema MD Cosigner Signature: Date (if applicable) CC: Pia Newton MD; Darwin Lema MD Signed BEDSIDE GLUCOSE Collected: 01/17/2018 Status: F Source: [place] 6:58 AM [facility] REPOSITORY TYPE CODE TESTS RESULT OUT OF REFERENCE UNITS RANGE LAB L501.080 70-110 mg/dL High BEDSIDE GLU 120 Result Comment: MANAGEMENT OF PATIENT CARE PER NURSING PROTOCOL Performed By: #### L501.080 #### [facility] Point of Care [address] [place], [place] [address] [phone] HH, HEMOGLOBIN AND Collected: 01/17/2018 Status: F Source: [place] HEMATOCRIT 6:28 AM [facility] REPOSITORY TYPE CODE TESTS RESULT OUT OF RANGE REFERENCE UNITS LAB L100.1300 12.0-15.0 g/dl Low HGB 8.5 LAB L100.1400 37-47 % Low HCT 27.3 Performed By: #### L100.0600 #### [facility] [address] [place], [place], [address] HEMOGLOBIN A1C Collected: 01/17/2018 Status: F Source: [place] 6:28 AM [facility] REPOSITORY TYPE CODE TESTS RESULT OUT OF RANGE REFERENCE UNITS LAB L501.9985 4.2-6.3 % Normal HGB A1C 6.1 Performed By: #### L501.9985 #### [facility] [address] [place], [address] TROPONIN-I Collected: 01/17/2018 Status: F Source: [place] 2:58 AM [facility] REPOSITORY Order Comment: 'TROP' Serial specimen #1, [...] Not every elevated troponin is indicative of [place]. These values should be used with clinical judgement in examining the patient's clinical picture for diagnosis. To establish a diagnosis of [place] versus myocardial injury, there must be a demonstrated rise and/or fall in the troponin values, in addition to ischemic symptoms, EKG changes, new regional wall motion abnormality, and/or angiographical evidence. PLEASE NOTE: REFERENCE RANGES EDITED 17 Performed By: #### L501.4010 #### [facility] [address] [place], [place], [address] BASIC METABOLIC Collected: 01/17/2018 Status: F Source: [place] PROFILE (BMP) 2:58 AM [facility] REPOSITORY TYPE CODE TESTS RESULT OUT OF [...] GAP 11 Performed By: #### L500.2500 #### [facility] [address], [address] CBC W/DIFF, AUTOMATED Collected: 01/17/2018 Status: C Source: ANA 2:58 AM [facility] REPOSITORY TYPE CODE TESTS RESULT OUT OF [...] as: July Performed By: #### L100.0100 #### [facility] [address] [place], [address] TROPONIN-I Collected: 01/16/2018 Status: F Source: [place] 11:55 PM [facility] REPOSITORY Order Comment: 'TROP' Serial specimen #1, [...] Not every elevated troponin is indicative of [place]. These values should be used with clinical judgement in examining the patient's clinical picture for diagnosis. To establish a diagnosis of [place] versus myocardial injury, there must be a demonstrated rise and/or fall in the troponin values, in addition to ischemic symptoms, EKG changes, new regional wall motion abnormality, and/or angiographical evidence. PLEASE NOTE: REFERENCE RANGES EDITED 17 Performed By: #### L501.4010, L503.6030, L503.6550, L504.2610, L506.0250 #### [facility] [address] [place], [address] IRON+IRON BINDING Collected: 01/16/2018 Status: F Source: [facility] 11:55 PM [facility] REPOSITORY Order Comment: 'TROP' Serial specimen #1, [...] #### L501.4010, L503.6030, L503.6550, L504.2610, L506.0250 #### [facility] [address] [place], [address] FERRITIN Collected: 01/16/2018 Status: F Source: [place] 11:55 PM [facility] REPOSITORY Order Comment: 'TROP' Serial specimen #1, #2 or #3: 2 'TROP' Serial specimen #1, #2, #3, or #4: 2 Serial Specimen #1, #2 or #3? 1 Is Patient Taking Vitamins or Folic Acid Supplements? N TYPE CODE TESTS RESULT OUT OF REFERENCE UNITS RANGE LAB L503.6550 8-252 ng/mL High FERRITIN 1009 Performed By: #### L501.4010, L503.6030, L503.6550, L504.2610, L506.0250 #### [facility] [address] [place], [address] LDH Collected: 01/16/2018 Status: F Source: [place] 11:55 PM [facility] REPOSITORY Order Comment: 'TROP' Serial specimen #1, #2 or #3: 2 'TROP' Serial specimen #1, #2, #3, or #4: 2 Serial Specimen #1, #2 or #3? 1 Is Patient Taking Vitamins or Folic Acid Supplements? N TYPE CODE TESTS RESULT OUT OF RANGE REFERENCE UNITS LAB L504.2610 84-246 U/L Normal LDH 132 Performed By: #### L501.4010, L503.6030, L503.6550, L504.2610, L506.0250 #### [facility] [address] [place], [address] FOLATES, (FOLIC ACID) Collected: 01/16/2018 Status: F Source: [place] 11:55 PM [facility] REPOSITORY Order Comment: 'TROP' Serial specimen #1, #2 or #3: 2 'TROP' Serial specimen #1, #2, #3, or #4: 2 Serial Specimen #1, #2 or #3? 1 Is Patient Taking Vitamins or Folic Acid Supplements? N TYPE CODE TESTS RESULT OUT OF RANGE REFERENCE UNITS LAB L506.0250 3.1-55.4 ng/mL Normal FOLATES 20.00 Performed By: #### L501.4010, L503.6030, L503.6550, L504.2610, L506.0250 #### [facility] [address] [place], [address] LACTIC ACID Collected: 01/16/2018 Status: F Source: ANA 11:45 PM [facility] REPOSITORY Order Comment: Yes/No query for Sepsis Lactate Rule Y TYPE CODE TESTS RESULT OUT OF RANGE REFERENCE UNITS LAB L503.6005 0.4-2.0 mmol/L Normal LACTIC ACID 0.8 Performed By: #### L503.6005 #### [facility] [address] [place], [address] Observed: 01/16/2018 Status: F Source: [place] CULTURE, BLOOD (WB) 11:45 PM [facility] REPOSITORY Has pt arrived? Y BC No growth in 5 days. Performed By: #### M200.1000 #### [facility] [address] [place], [address] Observed: 01/16/2018 Status: F Source: [place] CULTURE, WOUND 11:15 PM [facility] REPOSITORY Interface Comments: L Ankle Comments: Left ankle. Gram Stain Gram Stain 1+ Red Blood Cells 1+ White Blood Cells No organisms seen Wound Culture RESULTS CALLED TO A GLASS 01/19/18 0903 Emily Winston. REPORT READ BACK BY TABITHA. Copy [...] 1 S (NF) indicates non-formulary drug at [facility]. Approval by Infectious Disease Specialist required before non-formulary drugs may be ordered and/or dispensed. * CLSI guidelines does not recommend testing of cephalosporins. This interpretation is deduced from Beta-lactam/penicillin results. Performed By: #### M100.1400 #### [facility] [address] [facility] [place], [address] EMERGENCY DEPARTMENT Observed: 01/16/2018 Status: F Source: [place] SUMMARY 9:47 PM [facility] REPOSITORY [facility] Medical Records Department [address] [place] [address] Emergency Department Summary 01/16/18 2144 MR#: [id number] Acct: [id number] Name: KANDY LAUREN ANN Rep #: [id number] : 1960 57 From: Juan Tavarez MD [...] fracture on November 07. She was transferred [facility]. She underwent surgery and did ORIF. She developed osteomyelitis. She was transferred back to [facility] where a below the knee amputation [...] ankle Anemia This note was generated with NemeriX dictation software. It may contain incorrect words, [...] problems, contact your Primary Care Provider. Call [facility] ([phone]) or report to the closest Emergency Room. Call 911 if necessary. 01/16/182146 <Electronically signed by Juan Tavarez MD> Date Juan Tavarez MD Cosigner Signature (If Indicated): Date CC: Pia Newton MD TYPE AND SCREEN Collected: 01/16/2018 Status: F Source: ANA 9:30 PM [facility] REPOSITORY Order Comment: CMV NEG? N Number [...] NEGATIVE Screen Performed By: #### B101.7450 #### [facility] [place], [address] Collected: 01/16/2018 Status: F Source: [place] 9:30 PM [facility] REPOSITORY TYPE CODE TESTS RESULT OUT OF REFERENCE UNITS RANGE LAB U100.0000 [id number] TRANSFUSED PRODUCT: T AND S with Crossmatch, Red Cells COUNT: 1 Performed By: #### U100.0000 #### [facility] - refer to report for specific site CBC W/DIFF, AUTOMATED Collected: 01/16/2018 Status: F Source: [place] 7:40 PM [facility] REPOSITORY TYPE CODE TESTS RESULT OUT OF [...] 2.26 Performed By: #### L100.0100, L101.9900 #### [facility] [address] [place], [address] ERYTHROCYTE SED RATE Collected: 01/16/2018 Status: F Source: ANA 7:40 PM [facility] REPOSITORY TYPE CODE TESTS RESULT OUT OF RANGE REFERENCE UNITS LAB L102.0000 0-30 mm/hr High SED RATE 69 Performed By: #### L100.0100, L101.9900 #### [facility] [address] [place], [address] BASIC METABOLIC Collected: 01/16/2018 Status: F Source: [place] PROFILE (BMP) 7:40 PM [facility] REPOSITORY Order Comment: 'TROP' Serial specimen #1, [...] Performed By: #### L500.2500, L501.6710, L501.4010 #### [facility] [address] [place], [place], [address] CRP Collected: 01/16/2018 Status: F Source: [place] 7:40 PM [facility] REPOSITORY Order Comment: 'TROP' Serial specimen #1, [...] Performed By: #### L500.2500, L501.6710, L501.4010 #### [facility] [address] [place], [place], [address] TROPONIN-I Collected: 01/16/2018 Status: F Source: [place] 7:40 PM [facility] REPOSITORY Order Comment: 'TROP' Serial specimen #1, #2, #3, or #4: 1 TYPE CODE TESTS RESULT OUT OF RANGE REFERENCE UNITS LAB L501.4010 <0.045 ng/mL Normal < 0.015 TROPONIN-I Result Comment: TROPONIN-I EXPECTED VALUES <0.045 Negative 0.045 - 0.590 Consistent with Cardiac Damage > OR = 0.600 Critical Value Not every elevated troponin is indicative of [place]. These values should be used with clinical judgement in examining the patient's clinical picture for diagnosis. To establish a diagnosis of [place] versus myocardial injury, there must be a demonstrated rise and/or fall in the troponin values, in addition to ischemic symptoms, EKG changes, new regional wall motion abnormality, and/or angiographical evidence. PLEASE NOTE: REFERENCE RANGES EDITED 17 Performed By: #### L500.2500, L501.6710, L501.4010 #### [facility] [address] [place], [address] CHEST PA AND LATERAL Observed: 01/16/2018 Status: F Source: ANA 6:24 PM [facility] REPOSITORY [facility] Imaging Services [address] [place] [address] Chest PA and Lateral MR#: [id number] Acct: [id number] Name: KANDY LAUREN Rep #: [id number] : 1960 F 57 From: Rodger Torres DO PCP: Pia Newton MD Status: REG ER Study: Chest PA and Lateral Date of Exam: 01/16/18 Exam# [id number] Ordering Dr: Juan Tavarez MD STUDY: X-RAY [...] CC: Pia Newton MD; Juan Tavarez MD Procedure Rn: Signed ANKLE MIN 3 VIEWS Observed: 01/16/2018 Status: F Source: [place] 6:24 PM [facility] REPOSITORY [facility] Imaging Services [address] [place] [address] Ankle min 3 Views MR#: [id number] Acct: [id number] Name: KANDY LAUREN Rep #: [id number] : 1960 F 57 From: Rodger Torres DO PCP: Pia Newton MD Status: REG ER Study: Ankle min 3 Views Date of Exam: 01/16/18 Exam# [id number] Ordering Dr: Juan Tavarez MD STUDY: X-RAY [...] CC: Pia Newton MD; Juan Tavarez MD Procedure Rn: Signed HAPTOGLOBIN Collected: 01/16/2018 Status: F Source: [place] 7:15 AM [facility] REPOSITORY TYPE CODE TESTS RESULT OUT OF REFERENCE UNITS RANGE LAB L3100.1850 34-200 mg/dL High HAPTOGLOB [id number] Result Comment: Performed at: [facility] [address] [id number] Roller Embosser: Maninder Recinos PhD, Phone: [phone] Performed By: #### L3100.1850 #### [facility] (refer to report for specific site) refer to report for address and phone number VITAMIN B12 Collected: 01/16/2018 Status: F Source: [place] 7:15 AM [facility] REPOSITORY TYPE CODE TESTS RESULT OUT OF RANGE REFERENCE UNITS LAB L503.0105 211-911 pg/mL Normal Vitamin B12 578 Performed By: #### L503.0105 #### [facility] [address] [place], [place], [address] Collected: 01/14/2018 Status: F Source: [facility] 8:15 AM [facility] REPOSITORY TYPE CODE TESTS RESULT OUT OF RANGE REFERENCE UNITS LAB HGB(LOINC) 12.0-16.0 G/dL Low Hgb 7.0 LAB HCT(LOINC) 34.0-46.0 % Low Hct 21.8 Performed By: #### GENESIS, BMP, GFR #### [place] [address] BMP Collected: 01/14/2018 Status: F Source: [facility] 8:15 AM [facility] REPOSITORY TYPE CODE TESTS RESULT OUT OF [...] Performed By: #### HH, BMP, GFR #### [address] [address] .GFR Collected: 01/14/2018 Status: F Source: [employer] 8:15 AM [facility] REPOSITORY TYPE CODE TESTS RESULT OUT OF REFERENCE UNITS RANGE LAB GFRAA(LOINC ml/min/1.73 ) sqm GFR 33 Citizen Of [place] Result Comment: GFR Population mean for , [...] 15 mL/min/1.73 square meters Performed By: #### GENESIS, BMP, GFR #### [place] [address] XR ANKLE MINIMUM 3 Observed: 01/14/2018 Status: F Source: [employer] VIEWS LEFT 7:45 AM [facility] REPOSITORY ORIGINAL XR ANKLE MINIMUM 3 [...] RBC (PRODUCT) Collected: 01/14/2018 Status: F Source: [facility] 7:37 AM [facility] REPOSITORY TYPE CODE TESTS RESULT OUT OF REFERENCE UNITS RANGE LAB RBCPR(LOINC ) RBC Product RBC Ready Ready for Pickup Performed By: #### RBCP #### [place] [address] CBC Collected: 01/14/2018 Status: F Source: [facility] 4:01 AM [facility] REPOSITORY TYPE CODE TESTS RESULT OUT OF [...] fL MPV 6.8 Performed By: #### JACE WEINER, ANEU #### [place] [address] .AUTO DIFF Collected: 01/14/2018 Status: F Source: [facility] 4:01 AM [facility] REPOSITORY TYPE CODE TESTS RESULT OUT OF [...] Basophil, 0.10 Absolute Performed By: #### JACE WEINER, ANEU #### [place] [address] .NEUABS Collected: 01/14/2018 Status: F Source: [facility] 4:01 AM [facility] REPOSITORY TYPE CODE TESTS RESULT OUT OF REFERENCE UNITS RANGE LAB ANEU(LOINC) 2.25-8.10 10 3/mcL Neutrophil, 7.30 Absolute Performed By: #### CBCJACE, ANEU #### [place] [address] CMP Collected: 01/13/2018 Status: F Source: [facility] 11:53 PM [facility] REPOSITORY TYPE CODE TESTS RESULT OUT OF [...] 10-49 U/L ALT/SGPT 12 Performed By: #### CMP, GFR, ABORH, ANTIS #### [place] [address] .GFR Collected: 01/13/2018 Status: F Source: [facility] 11:53 PM [facility] REPOSITORY TYPE CODE TESTS RESULT OUT OF REFERENCE UNITS RANGE LAB GFRAA(LOINC ml/min/1.73 ) sqm GFR 33 Citizen [place] Result Comment: GFR Population mean for , [...] 15 mL/min/1.73 square meters Performed By: #### CMP, GFR, ABORH, ANTIS #### [place] [address] TABO Collected: 01/13/2018 Status: F Source: [facility] 11:53 PM [facility] REPOSITORY TYPE CODE TESTS RESULT OUT OF RANGE REFERENCE UNITS LAB ABORH(LOINC ) Unknown ABO/Rh O NEG Interp Performed By: #### CMP, GFR, ABORH, ANTIS #### [place] [address] TABS Collected: 01/13/2018 Status: F Source: [facility] 11:53 PM [facility] REPOSITORY TYPE CODE TESTS RESULT OUT OF REFERENCE UNITS RANGE LAB ANST(LOINC ) Antibody Negative ABSC Screen Tango Performed By: #### CMP, GFR, ABORH, ANTIS #### [place] [address] EMERGENCY DEPARTMENT Observed: 01/13/2018 Status: F Source: [place] SUMMARY 7:13 PM [facility] REPOSITORY [facility] Medical Records Department [address] [place] [address] Emergency Department Summary 01/13/18 1544 MR#: [id number] Acct: [id number] Name: KANDY LAUREN Rep #: [id number] : 1960 57 From: Miguelina Salazar MD [...] yesterday. She states she had surgery at [facility] [place] [facility] she believes in October for fracture dislocation left ankle. She states she was admitted to [facility] [place] [facility] for 1 month and had multiple surgeries. She was sent to rehab. She developed C. difficile. She was sent back to [facility]. She was then discharged again to rehab. [...] Patient was discussed with Dr. Mariscal from [facility] [place] [facility] and will be transferred to [facility] [place] [facility]. 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 It may contain incorrect words, [...] your Primary Care Provider. Call [facility] ([phone]) or report to the closest Emergency Room. Call 911 if necessary. 01/13/18 1913 <Electronically signed by Miguelina Salazar MD> Date Miguelina Salazar MD Cosigner Signature (If Indicated): Date CC: Pia Newton MD Observed: 01/13/2018 Status: F Source: [place] CULTURE, WOUND 4:00 PM [facility] REPOSITORY Gram Stain Gram Stain Rare White [...] <=1 S (NF) indicates non-formulary drug at [facility]. Approval by Infectious Disease Specialist required [...] 1 S (NF) indicates non-formulary drug at [facility]. Approval by Infectious Disease Specialist required [...] 0.5 S (NF) indicates non-formulary drug at [facility]. Approval by Infectious Disease Specialist required before non-formulary drugs may be ordered and/or dispensed. * CLSI guidelines does not recommend testing of cephalosporins. This interpretation is deduced from Beta-lactam/penicillin results. Performed By: #### M100.1400 #### [facility] [place], [address] Observed: 01/13/2018 Status: F Source: [place] CULTURE, BLOOD (WB) 4:00 PM [facility] REPOSITORY BC ANAEROBIC BOTTLE: GRAM POSITIVE COCCI IN CLUSTERS RESULTS CALLED TO GIL/ED 01/14/18 [address]. REFER TO -[phone] FOR SENSITIVITIES. ORGANISM 1: Staphylococcus aureus Amount Growth Growth Performed By: #### M200.1000 #### [facility] [address] [place], [address] FOOT MIN 3 VIEWS Observed: 01/13/2018 Status: F Source: [place] 3:49 PM [facility] REPOSITORY [facility] Imaging Services [address] [place] [address] Foot min 3 Views MR#: [id number] Acct: [id number] Name: KANDY LAUREN ANN Rep #: [id number] : 1960 F 57 From: Audi Morillo MD PCP: Pia Newton MD Status: REG ER Study: Foot min 3 Views Date of Exam: 01/13/18 Exam# [id number] Ordering Dr: Miguelina Salazar MD STUDY: X-RAY [...] CC: Miguelina Salazar MD; Pia Newton MD Procedure Rn: Signed CBC W/DIFF, AUTOMATED Collected: 01/13/2018 Status: F Source: ANA 3:48 PM [facility] REPOSITORY TYPE CODE TESTS RESULT OUT OF [...] 1.86 Performed By: #### L100.0100, L101.9900 #### [facility] [address] [place], [address] ERYTHROCYTE SED RATE Collected: 01/13/2018 Status: F Source: ANA 3:48 PM [facility] REPOSITORY TYPE CODE TESTS RESULT OUT OF RANGE REFERENCE UNITS LAB L102.0000 0-30 mm/hr High SED RATE 92 Performed By: #### L100.0100, L101.9900 #### [facility] [address] [place], [place], [address] LACTIC ACID Collected: 01/13/2018 Status: F Source: ANA 3:48 PM [facility] REPOSITORY Order Comment: Yes/No query for Sepsis Lactate Rule Y TYPE CODE TESTS RESULT OUT OF RANGE REFERENCE UNITS LAB L503.6005 0.4-2.0 mmol/L Normal LACTIC ACID 1.2 Performed By: #### L503.6005 #### [facility] [address] [place], [address] BASIC METABOLIC Collected: 01/13/2018 Status: F Source: [place] PROFILE (BMP) 3:48 PM [facility] REPOSITORY TYPE CODE TESTS RESULT OUT OF [...] 10 Performed By: #### L500.2500, L501.6710 #### [facility] [address] [place], [address] CRP Collected: 01/13/2018 Status: F Source: [place] 3:48 PM [facility] REPOSITORY TYPE CODE TESTS RESULT OUT OF RANGE REFERENCE UNITS LAB L501.6710 0.0-3.0 mg/L High 359.00 C-REACTIVE PROT Result Comment: C-Reactive Protein (CRP) provides useful information for the diagnosis, therapy and monitoring of inflammatory processes and associated diseases. For the evaluation of Relative Risk for Cardiovascular Disease, a High Sensitivity CRP (HSCRP) should be ordered. Performed By: #### L500.2500, L501.6710 #### [facility] [address] [facility] [place], [address] Observed: 01/13/2018 Status: F Source: [place] CULTURE, BLOOD (WB) 3:48 PM [facility] REPOSITORY BC ANAEROBIC BOTTLE GRAM STAIN: GRAM POSITIVE COCCI IN CLUSTERS RESULTS CALLED/FAXED TO [facility] 01/14/18 [address]. MRSA RESULTS/FAXED CALLED TO [facility]/ED 01/16/18 [address]. Copy of report sent to Infection Control Printer [id number] 01/16/18 3261 DCANNON. ORGANISM 1: Meth. resistant Staph. aureus [...] 1 S (NF) indicates non-formulary drug at [facility]. Approval by Infectious Disease Specialist required before non-formulary drugs may be ordered and/or dispensed. * CLSI guidelines does not recommend testing of cephalosporins. This interpretation is deduced from Beta-lactam/penicillin results. Performed By: #### M200.1000 #### [facility] [address] [place], [address] ANKLE MIN 3 VIEWS Observed: 01/13/2018 Status: F Source: [place] 3:39 PM [facility] REPOSITORY [facility] Imaging Services [address] [place] [address] Ankle min 3 Views MR#: [id number] Acct: [id number] Name: KANDY LAUREN ANN Rep #: [id number] : 1960 F 57 From: Audi Morillo MD PCP: Pia Newton MD Status: REG ER Study: Ankle min 3 Views Date of Exam: 01/13/18 Exam# [id number] Ordering Dr: Miguelina Salazar MD STUDY: X-RAY [...] CC: Miguelina Salazar MD; Pia Newton MD Procedure Rn: Signed SURGERY VISIT REPORT Observed: 01/08/2018 Status: F Source: [place] 10:57 AM [facility] REPOSITORY [facility] [address] [place] [address] [address] [place] [address] OFFICE VISIT Date of Service: 01/01/18 MR#: [id number] Acct: [id number] Name: KANDY LAUREN Rep #: [id number] : 1960 Provider: Octavio Pulido MD Age/Sex: 57/F Location: [facility] Status: Signed Intake Vital Signs01/01/18 Height 5 ft 6 in 01/01/18 Weight: 225 lb 2 oz 01/01/18 Body Mass Index (BMI) 36.3 01/01/18 Blood Pressure 116/74 Intake Visit Reasons: Blood in Stool Chief Complaint: diarrhea, discuss c-scope [employer] Grade Teacher Required: No Is patient in pain?: No Allergies aspirin Allergy (Verified 01/01/18 14:27) Hives latex Allergy (Verified 01/01/18 14:27) Hives naproxen [From Aleve] Adverse Reaction (Severe, Verified 01/01/18 14:27) Kidney disease Medications Allopurinol 300 mg PO DAILY 12/03/16 [History Confirmed 01/01/18] Amitriptyline HCl 75 mg PO QHS 12/03/16 [History Confirmed 01/01/18] Atenolol 50 mg PO DAILY 09/05/17 [History Confirmed 01/01/18] liraglutide 0.6 mg/0.1 mL [...] No Post menopausal: Yes Patient : No PFS Medical History Arthritis (Chronic) Hypertension (Chronic) High [...] evaluation for colonoscopy. Patient was seen was [facility] and having rectal bleeding and anemia and actually received 3 units of packed red blood cells. He was diagnosed with C. difficile was treated with Flagyl and vancomycin and received more blood. She was status post a left ankle surgery for ORIF and was sent to rehab to recover. The patient continues to have very loose stools despite trying numerous [id number]-[id number] medications to help prevent this. She was [...] person, oriented to place, oriented to time [facility] Head: normocephalic, atraumatic Ears: external ears [...] <Electronically signed by Octavio Pulido MD> Date Octavoi Pulido MD Cosigner Signature: Date (if applicable) CC: Pia Newton MD TYPE AND SCREEN Collected: 12/24/2017 Status: F Source: [place] 2:24 PM [facility] REPOSITORY Order Comment: PRETRANSFUSION HGB = 7.6 HCT = 22.7 PERFORMED AT [facility] CMV NEG?* N Give When? Type AND Hold Irradiated? N Leukodepleted? Y Reason for Type AND Screen/Red Cells: ANEMIA TYPE CODE TESTS RESULT OUT OF RANGE REFERENCE UNITS LAB B10.0800 O Normal BLOOD TYPE GEL NEGATIVE LAB B100.4000 Normal Antibody NEGATIVE Screen Performed By: #### B101.7450 #### [facility] [place], [address] Collected: 12/24/2017 Status: F Source: [place] 2:24 PM [facility] REPOSITORY TYPE CODE TESTS RESULT OUT OF REFERENCE UNITS RANGE LAB U100.0000 [id number] TRANSFUSED PRODUCT: T AND S with Crossmatch, Red Cells COUNT: 2 Performed By: #### U100.0000 #### [facility] - refer to report for specific site BMP Collected: 12/15/2017 Status: F Source: [facility] 6:15 AM [facility] REPOSITORY TYPE CODE TESTS RESULT OUT OF [...] mg/dL Calcium Lvl 8.4 Performed By: #### BMP, GFR #### [place] [address] .GFR Collected: 12/15/2017 Status: F Source: [facility] 6:15 AM [facility] REPOSITORY TYPE CODE TESTS RESULT OUT OF REFERENCE UNITS RANGE LAB GFRAA(LOINC ml/min/1.73 ) sqm GFR 41 Citizen [place] Result Comment: GFR Population mean for , [...] meters Performed By: #### BMP, GFR #### [place] [address] HH Collected: 12/09/2017 Status: F Source: [facility] 8:47 AM [facility] REPOSITORY TYPE CODE TESTS RESULT OUT OF RANGE REFERENCE UNITS LAB HGB(LOINC) 12.0-16.0 G/dL Low Hgb 9.8 LAB HCT(LOINC) 34.0-46.0 % Low Hct 28.4 Performed By: #### HH #### [place] [address] FINAL SURGICAL Observed: 12/08/2017 Status: F Source: [facility] PATHOLOGY REPORT 10:49 AM [facility] REPOSITORY . Pathology Reports Accession: Collected Date/Time: Received Date/Time: Pathologist: [id number] 12/08/2017 10:49 EDT 12/08/2017 10:49 MD SONA BRANDON Final Surgical Pathology Report DIAGNOSIS: SIGMOID COLON, BIOPSY: - HYPERPLASTIC POLYP. CLINICAL INFORMATION: Procedure: N/A Preoperative diagnosis: BRBRP Postoperative diagnosis: SAME SPECIMEN: A POLYP, COLORECT - SIGMOID POLYP GROSS DESCRIPTION: Received in formalin labeled sigmoid is a 0.4 cm pérez glistening soft tissue. TS - 1 Dictated by Cari DOYLE ([facility]) MICROSCOPIC DESCRIPTION: Slides reviewed. Electronically Signed by Pathology Report verified by [facility] [place] [facility] Electronically signed by SONA RAY MD Sign out Date: 12/09/2017 12:40 Performing Lab: [address] Performed By: #### SPFR #### [place] [address] CBC Collected: 12/08/2017 Status: F Source: [facility] 10:21 AM [facility] REPOSITORY TYPE CODE TESTS RESULT OUT OF [...] fL Low MPV 6.4 Performed By: #### CBC, ADIFF, ANEU, BMP, GFR #### [address] [address] .AUTO DIFF Collected: 12/08/2017 Status: F Source: [facility] 10:21 AM [facility] REPOSITORY TYPE CODE TESTS RESULT OUT OF [...] Basophil, 0.00 Absolute Performed By: #### CBC, ADIFF, ANEU, BMP, GFR #### [address] [address] .NEUABS Collected: 12/08/2017 Status: F Source: [facility] 10:21 AM [facility] REPOSITORY TYPE CODE TESTS RESULT OUT OF REFERENCE UNITS RANGE LAB ANEU(LOINC) 2.25-8.10 10 3/mcL Neutrophil, 4.90 Absolute Performed By: #### CBC, ADIFF, ANEU, BMP, GFR #### [place] [address] BMP Collected: 12/08/2017 Status: F Source: [facility] 10:21 AM [facility] REPOSITORY TYPE CODE TESTS RESULT OUT OF [...] Low Calcium Lvl 7.4 Performed By: #### REGINE, ADIFF, ANEU, BMP, GFR #### [place] [address] .GFR Collected: 12/08/2017 Status: F Source: [facility] 10:21 AM [facility] REPOSITORY TYPE CODE TESTS RESULT OUT OF REFERENCE UNITS RANGE LAB GFRAA(LOINC ml/min/1.73 ) sqm GFR 53 Citizen [place] Result Comment: GFR Population mean for , [...] mL/min/1.73 square meters Performed By: #### CBC, ADIFF, ANEU, BMP, GFR #### [place] [address] XR ABDOMEN AP Observed: 12/07/2017 Status: F Source: [facility] 9:45 AM [facility] REPOSITORY ORIGINAL XR ABDOMEN AP CLINICAL STATEMENT: [...] PM CBC Collected: 12/07/2017 Status: F Source: [facility] 4:46 AM [facility] REPOSITORY TYPE CODE TESTS RESULT OUT OF [...] Low MPV 6.3 Performed By: #### CBC, ADIFF, ANEU, BMP, GFR #### [address] [address] .AUTO DIFF Collected: 12/07/2017 Status: F Source: [facility] 4:46 [facility] REPOSITORY TYPE CODE TESTS RESULT [...] Basophil, 0.00 Absolute Performed By: #### CBC, ADIFF, ANEU, BMP, GFR #### [address] [address] .NEUABS Collected: 12/07/2017 Status: F Source: [facility] 4:46 [facility] REPOSITORY TYPE CODE TESTS RESULT OUT OF REFERENCE UNITS RANGE LAB ANEU(LOINC) 2.25-8.10 10 3/mcL Neutrophil, 4.60 Absolute Performed By: #### CBC, JACE, ANEU, BMP, GFR #### [address] [address] BMP Collected: 12/07/2017 Status: F Source: [facility] 4:46 AM [facility] REPOSITORY TYPE CODE TESTS RESULT OUT OF [...] Low Calcium Lvl 7.2 Performed By: #### REGINE, JACE, ANEU, BMP, GFR #### [address] [address] .GFR Collected: 12/07/2017 Status: F Source: [facility] 4:46 AM [facility] REPOSITORY TYPE CODE TESTS RESULT OUT OF REFERENCE UNITS RANGE LAB GFRAA(LOINC ml/min/1.73 ) sqm GFR 47 Citizen [place] Result Comment: GFR Population mean for , [...] mL/min/1.73 square meters Performed By: #### CBC, ADIFF, ANEU, BMP, GFR #### [place] [id number] HH Collected: 12/06/2017 Status: F Source: [facility] 4:00 PM [facility] REPOSITORY TYPE CODE TESTS RESULT OUT OF RANGE REFERENCE UNITS LAB HGB(LOINC) 12.0-16.0 G/dL Low Hgb 9.0 LAB HCT(LOINC) 34.0-46.0 % Low Hct 27.0 Performed By: #### HH #### [address] [address] LAC Collected: 12/06/2017 Status: F Source: [facility] 9:41 AM [facility] REPOSITORY TYPE CODE TESTS RESULT OUT OF REFERENCE UNITS RANGE LAB LAC(LOINC) 0.2-2.0 mmol/L Lactic Acid 1.6 Lvl Performed By: #### LAC, VBG, CBC, ADIFF, ANEU, GFR, CMP, TROPI #### [place] [id number] VBG Collected: 12/06/2017 Status: F Source: [facility] 9:41 AM [facility] REPOSITORY TYPE CODE TESTS RESULT OUT OF REFERENCE UNITS RANGE LAB PHV(LOINC) 7.380-7.460 Low pH Venous 7.277 LAB VPCO2(LOINC 41.0-51.0 mmHg ) pCO2 Edilberto 41.9 LAB PO2V(LOINC) 35.0-40.0 mmHg pO2 Edilberto 36.4 LAB HCO3V(LOINC 21.0-30.0 mmol/L ) Low HCO3 Edilberto 19.1 LAB TCO2V(LOINC 70.0-75.0 % ) Low TCO2 Venous 64.2 LAB SHANNAN(LOINC) -3.0-3.0 mmol/L Low BE Venous -7.2 Performed By: #### LAC, VBG, CBC, ADIFF, ANEU, GFR, CMP, TROPI #### [address] [address] CBC Collected: 12/06/2017 Status: F Source: [facility] 9:41 AM [facility] REPOSITORY TYPE CODE TESTS RESULT OUT OF [...] fL Low MPV 6.2 Performed By: #### LAC, VBG, CBC, ADIFF, ANEU, GFR, CMP, TROPI #### [address] [address] .AUTO DIFF Collected: 12/06/2017 Status: F Source: [facility] 9:41 AM [facility] REPOSITORY TYPE CODE TESTS RESULT OUT OF [...] ) Basophil, 0.10 Absolute Performed By: #### LAC, VBG, CBC, ADIFF, ANEU, GFR, CMP, TROPI #### [place] [address] .NEUABS Collected: 12/06/2017 Status: F Source: [facility] 9:41 AM [facility] REPOSITORY TYPE CODE TESTS RESULT OUT OF REFERENCE UNITS RANGE LAB ANEU(LOINC) 2.25-8.10 10 3/mcL Neutrophil, 7.20 Absolute Performed By: #### LAC, VBG, CBC, ADIFF, ANEU, GFR, CMP, TROPI #### [place] [address] .GFR Collected: 12/06/2017 Status: F Source: [facility] 9:41 AM [facility] REPOSITORY TYPE CODE TESTS RESULT OUT OF REFERENCE UNITS RANGE LAB GFRAA(LOINC ml/min/1.73 ) sqm GFR 46 Citizen [place] Result Comment: GFR Population mean for , [...] 15 mL/min/1.73 square meters Performed By: #### LAC, VBG, CBC, ADIFF, ANEU, GFR, CMP, TROPI #### [place] [address] CMP Collected: 12/06/2017 Status: F Source: [facility] 9:41 AM [facility] REPOSITORY TYPE CODE TESTS [...] U/L Low ALT/SGPT <6 Performed By: #### LAC, VBG, CBC, ADIFF, ANEU, GFR, CMP, TROPI #### [place] [address] TROPI Collected: 12/06/2017 Status: F Source: [facility] 9:41 AM [facility] REPOSITORY TYPE CODE TESTS RESULT OUT OF [...] ECG changes may help assess possibility of [place]. *Other non-acute coronary syndrome conditions such as CHF, myocarditis, pulmonary emboli, sepsis and cardiac surgery could result in myocardial damage and increased troponin levels. Performed By: #### LAC, VBG, CBC, ADIFF, ANEU, GFR, CMP, TROPI #### [place] [address] RBC (PRODUCT) Collected: 12/06/2017 Status: F Source: [facility] 8:01 AM [facility] REPOSITORY TYPE CODE TESTS RESULT OUT OF REFERENCE UNITS RANGE LAB RBCPR(LOINC ) RBC Product RBC Ready Ready for Pickup Performed By: #### RBCP #### [place] [id number] HH Collected: 12/06/2017 Status: F Source: [facility] 4:56 AM [facility] REPOSITORY TYPE CODE TESTS RESULT OUT OF RANGE REFERENCE UNITS LAB HGB(LOINC) 12.0-16.0 G/dL Low Hgb 8.0 LAB HCT(LOINC) 34.0-46.0 % Low Hct 23.4 Performed By: #### HH #### [place] [id number] BMP Collected: 12/06/2017 Status: F Source: [facility] 4:56 AM [facility] REPOSITORY TYPE CODE TESTS RESULT OUT OF [...] Low Calcium Lvl 7.2 Performed By: #### BMP, GFR #### [place] [address] .GFR Collected: 12/06/2017 Status: F Source: [facility] 4:56 [facility] REPOSITORY TYPE CODE TESTS RESULT OUT OF REFERENCE UNITS RANGE LAB GFRAA(LOINC ml/min/1.73 ) sqm GFR 45 Citizen [place] Result Comment: GFR Population mean for , [...] meters Performed By: #### BMP, GFR #### [address] Collected: 12/06/2017 Status: F Source: [facility] 12:00 AM [facility] REPOSITORY TYPE CODE TESTS RESULT OUT OF RANGE REFERENCE UNITS LAB HGB(LOINC) 12.0-16.0 G/dL Low Hgb 8.2 LAB HCT(LOINC) 34.0-46.0 % Low Hct 24.5 Performed By: #### HH #### [address] Collected: 12/05/2017 Status: F Source: [facility] 7:30 PM [facility] REPOSITORY TYPE CODE TESTS RESULT OUT OF RANGE REFERENCE UNITS LAB HGB(LOINC) 12.0-16.0 G/dL Low Hgb 8.8 LAB HCT(LOINC) 34.0-46.0 % Low Hct 25.8 Performed By: #### HH #### [place] [address] HH Collected: 12/05/2017 Status: F Source: [facility] 11:44 AM [facility] REPOSITORY TYPE CODE TESTS RESULT OUT OF RANGE REFERENCE UNITS LAB HGB(LOINC) 12.0-16.0 G/dL Low Hgb 8.8 LAB HCT(LOINC) 34.0-46.0 % Low Hct 26.0 Performed By: #### HH #### [place] [address] CBC Collected: 12/05/2017 Status: F Source: [facility] 5:22 AM [facility] REPOSITORY TYPE CODE TESTS RESULT OUT OF [...] fL Low MPV 6.4 Performed By: #### CBC, ADIFF, ANEU, BMP, GFR #### [place] [address] .AUTO DIFF Collected: 12/05/2017 Status: F Source: [facility] 5:22 [facility] REPOSITORY TYPE CODE TESTS RESULT [...] Basophil, 0.10 Absolute Performed By: #### CBC, ADIFF, ANEU, BMP, GFR #### [address] [address] .NEUABS Collected: 12/05/2017 Status: F Source: [facility] 5:22 AM [facility] REPOSITORY TYPE CODE TESTS RESULT OUT OF REFERENCE UNITS RANGE LAB ANEU(LOINC) 2.25-8.10 10 3/mcL Neutrophil, 7.70 Absolute Performed By: #### CBC, ADIFF, ANEU, BMP, GFR #### [place] [address] BMP Collected: 12/05/2017 Status: F Source: [facility] 5:22 AM [facility] REPOSITORY TYPE CODE TESTS RESULT OUT OF [...] Low Calcium Lvl 7.5 Performed By: #### CBC, ADIFF, ANEU, BMP, GFR #### [address] [address] .GFR Collected: 12/05/2017 Status: F Source: [facility] 5:22 AM [facility] REPOSITORY TYPE CODE TESTS RESULT OUT OF REFERENCE UNITS RANGE LAB GFRAA(LOINC ml/min/1.73 ) sqm GFR 46 Citizen [place] Result Comment: GFR Population mean for , [...] mL/min/1.73 square meters Performed By: #### CBC, ADIFF, ANEU, BMP, GFR #### [address] Collected: 12/05/2017 Status: F Source: [facility] 12:48 AM [facility] REPOSITORY TYPE CODE TESTS RESULT OUT OF RANGE REFERENCE UNITS LAB HGB(LOINC) 12.0-16.0 G/dL Low Hgb 9.0 LAB HCT(LOINC) 34.0-46.0 % Low Hct 26.3 Performed By: #### HH #### [address] [address] HH Collected: 12/04/2017 Status: F Source: [facility] 6:33 PM [facility] REPOSITORY TYPE CODE TESTS RESULT OUT OF RANGE REFERENCE UNITS LAB HGB(LOINC) 12.0-16.0 G/dL Low Hgb 9.0 LAB HCT(LOINC) 34.0-46.0 % Low Hct 26.9 Performed By: #### HH #### [address] Collected: 12/04/2017 Status: F Source: [facility] 6:02 PM [facility] REPOSITORY TYPE CODE TESTS RESULT OUT OF RANGE REFERENCE UNITS LAB HGB(LOINC) 12.0-16.0 G/dL Low Hgb 9.6 LAB HCT(LOINC) 34.0-46.0 % Low Hct 28.3 Performed By: #### HH #### [place] [id number] HH Collected: 12/04/2017 Status: F Source: [facility] 12:02 PM [facility] REPOSITORY TYPE CODE TESTS RESULT OUT OF RANGE REFERENCE UNITS LAB HGB(LOINC) 12.0-16.0 G/dL Low Hgb 9.4 LAB HCT(LOINC) 34.0-46.0 % Low Hct 27.9 Performed By: #### HH #### [place] [address] CBC Collected: 12/04/2017 Status: F Source: [facility] 5:58 AM [facility] REPOSITORY TYPE CODE TESTS RESULT OUT OF [...] 6.6-10.5 fL MPV 6.7 Performed By: #### CBC, ADIFF, ANEU, BMP, MG, GFR #### [place] [address] .AUTO DIFF Collected: 12/04/2017 Status: F Source: [facility] 5:58 AM [facility] REPOSITORY TYPE CODE TESTS RESULT OUT OF [...] Basophil, 0.10 Absolute Performed By: #### CBC, ADIFF, ANEU, BMP, MG, GFR #### [place] [address] .NEUABS Collected: 12/04/2017 Status: F Source: [facility] 5:58 AM [facility] REPOSITORY TYPE CODE TESTS RESULT OUT OF REFERENCE UNITS RANGE LAB ANEU(LOINC) 2.25-8.10 10 3/mcL High Neutrophil, 8.50 Absolute Performed By: #### CBC, ADIFF, ANEU, BMP, MG, GFR #### [place] [address] BMP Collected: 12/04/2017 Status: F Source: [facility] 5:58 [facility] REPOSITORY TYPE CODE TESTS RESULT [...] Low Calcium Lvl 7.6 Performed By: #### CBC, ADIFF, ANEU, BMP, MG, GFR #### [address] [address] MG Collected: 12/04/2017 Status: F Source: [facility] 5:58 AM [facility] REPOSITORY TYPE CODE TESTS RESULT OUT OF REFERENCE UNITS RANGE LAB MG(LOINC) 1.6-2.4 mg/dL Magnesium Lvl 1.8 Performed By: #### CBC, ADIFF, ANEU, BMP, MG, GFR #### [address] [address] .GFR Collected: 12/04/2017 Status: F Source: [facility] 5:58 AM [facility] REPOSITORY TYPE CODE TESTS RESULT OUT OF REFERENCE UNITS RANGE LAB GFRAA(LOINC ml/min/1.73 ) sqm GFR 39 Citizen [place] Result Comment: GFR Population mean for , [...] mL/min/1.73 square meters Performed By: #### CBC, ADIFF, ANEU, BMP, MG, GFR #### [address] Collected: 12/04/2017 Status: F Source: [facility] 1:32 AM [facility] REPOSITORY TYPE CODE TESTS RESULT OUT OF RANGE REFERENCE UNITS LAB HGB(LOINC) 12.0-16.0 G/dL Low Hgb 9.3 LAB HCT(LOINC) 34.0-46.0 % Low Hct 27.7 Performed By: #### #### [address] Collected: 12/03/2017 Status: F Source: [facility] 2:03 PM [facility] REPOSITORY TYPE CODE TESTS RESULT OUT OF RANGE REFERENCE UNITS LAB HGB(LOINC) 12.0-16.0 G/dL Abnormal Alert Hgb 6.8 LAB HCT(LOINC) 34.0-46.0 % Low Hct 20.8 Performed By: #### #### [place] [address] NM GASTROINTESTINAL BLOOD Observed: 12/03/2017 Status: F Source: [facility]AG[facility] 1:00 PM [facility] REPOSITORY ORIGINAL NM GASTROINTESTINAL BLOOD LOSS IMAGING [...] RBC (PRODUCT) Collected: 12/03/2017 Status: F Source: [facility] 11:16 AM [facility] REPOSITORY TYPE CODE TESTS RESULT OUT OF REFERENCE UNITS RANGE LAB RBCPR(LOINC ) RBC Product RBC Ready Ready for Pickup Performed By: #### RBCP #### [place] [address] HH Collected: 12/03/2017 Status: F Source: [facility] 10:48 AM [facility] REPOSITORY TYPE CODE TESTS RESULT OUT OF RANGE REFERENCE UNITS LAB HGB(LOINC) 12.0-16.0 G/dL Low Hgb 7.3 LAB HCT(LOINC) 34.0-46.0 % Low Hct 22.3 Performed By: #### HH #### [place] [address] MABO Collected: 12/03/2017 Status: F Source: [facility] 10:48 AM [facility] REPOSITORY TYPE CODE TESTS RESULT OUT OF RANGE REFERENCE UNITS LAB ABORH(LOINC ) Unknown ABO/Rh O NEG Interp Performed By: #### ABOM, ANSM #### [place] [address] MABS Collected: 12/03/2017 Status: F Source: [facility] 10:48 AM [facility] REPOSITORY TYPE CODE TESTS RESULT OUT OF REFERENCE UNITS RANGE LAB ANSM(LOINC ) Antibody Negative ABSC Screen Manual Performed By: #### ABOM, ANSM #### [place] [address] HH Collected: 12/03/2017 Status: F Source: [facility] 8:48 AM [facility] REPOSITORY TYPE CODE TESTS RESULT OUT OF RANGE REFERENCE UNITS LAB HGB(LOINC) 12.0-16.0 G/dL Low Hgb 7.6 LAB HCT(LOINC) 34.0-46.0 % Low Hct 23.6 Performed By: #### #### [address] [address] CBC Collected: 12/03/2017 Status: F Source: [facility] 2:43 AM [facility] REPOSITORY TYPE CODE TESTS RESULT OUT OF [...] 6.6-10.5 fL MPV 6.8 Performed By: #### CBC, ADIFF, ANEU, MG, CMP, GFR #### [address] [address] .AUTO DIFF Collected: 12/03/2017 Status: F Source: [facility] 2:43 AM [facility] REPOSITORY TYPE CODE TESTS RESULT OUT OF [...] Basophil, 0.00 Absolute Performed By: #### CBC, ADIFF, ANEU, MG, CMP, GFR #### [place] [address] .NEUABS Collected: 12/03/2017 Status: F Source: [facility] 2:43 AM [facility] REPOSITORY TYPE CODE TESTS RESULT OUT OF REFERENCE UNITS RANGE LAB ANEU(LOINC) 2.25-8.10 10 3/mcL Neutrophil, 6.10 Absolute Performed By: #### CBC, ADIFF, ANEU, MG, CMP, GFR #### [place] [address] MG Collected: 12/03/2017 Status: F Source: [facility] 2:43 AM [facility] REPOSITORY TYPE CODE TESTS RESULT OUT OF REFERENCE UNITS RANGE LAB MG(LOINC) 1.6-2.4 mg/dL Magnesium Lvl 1.8 Performed By: #### CBC, ADIFF, ANEU, MG, CMP, GFR #### [place] [address] CMP Collected: 12/03/2017 Status: F Source: [facility] 2:43 [facility] REPOSITORY TYPE CODE TESTS RESULT [...] U/L Low ALT/SGPT 8 Performed By: #### CBC, ADIFF, ANEU, MG, CMP, GFR #### [place] [address] .GFR Collected: 12/03/2017 Status: F Source: [facility] 2:43 AM [facility] REPOSITORY TYPE CODE TESTS RESULT OUT OF REFERENCE UNITS RANGE LAB GFRAA(LOINC ml/min/1.73 ) sqm GFR 35 Citizen [place] Result Comment: GFR Population mean for , [...] mL/min/1.73 square meters Performed By: #### CBC, ADIFF, ANEU, MG, CMP, GFR #### [address] Collected: 12/02/2017 Status: F Source: [facility] 8:10 PM [facility] REPOSITORY TYPE CODE TESTS RESULT OUT OF RANGE REFERENCE UNITS LAB HGB(LOINC) 12.0-16.0 G/dL Low Hgb 8.5 LAB HCT(LOINC) 34.0-46.0 % Low Hct 25.3 Performed By: #### HH #### [place] [address] XR ANKLE MINIMUM 3 Observed: 12/02/2017 Status: F Source: [facility] VIEWS LEFT 4:00 PM [facility] REPOSITORY ORIGINAL XR ANKLE MINIMUM 3 VIEWS [...] 4:56:46 PM Sign Date: 12/02/2017 5:00:23 PM Collected: 12/02/2017 Status: F Source: [employer] 3:17 PM [facility] REPOSITORY TYPE CODE TESTS RESULT OUT OF RANGE REFERENCE UNITS LAB HGB(LOINC) 12.0-16.0 G/dL Low Hgb 9.3 LAB HCT(LOINC) 34.0-46.0 % Low Hct 28.2 Performed By: #### HH #### [address] [address] CBC Collected: 12/02/2017 Status: F Source: [facility] 5:14 AM [facility] REPOSITORY TYPE CODE TESTS RESULT OUT OF [...] fL Low MPV 6.5 Performed By: #### CBC, ADIFF, ANEU, CAION #### [address] [address] #### BMP, GFR #### [address] [address] .AUTO DIFF Collected: 12/02/2017 Status: F Source: [facility] 5:14 AM [facility] REPOSITORY TYPE CODE TESTS RESULT OUT OF [...] Basophil, 0.10 Absolute Performed By: #### CBC, ADIFF, ANEU, CAION #### [place] [id number] [place], [place] [address] #### BMP, GFR #### [address] [address] .NEUABS Collected: 12/02/2017 Status: F Source: [facility] 5:14 AM [facility] REPOSITORY TYPE CODE TESTS RESULT OUT OF REFERENCE UNITS RANGE LAB ANEU(LOINC) 2.85-6.16 10 3/mcL High Neutrophil, 6.50 Absolute Performed By: #### CBC, ADIFF, ANEU, CAION #### [place] [id number] [place], [place] [address] #### BMP, GFR #### [address] [address] BMP Collected: 12/02/2017 Status: F Source: [facility] 5:14 AM [facility] REPOSITORY TYPE CODE TESTS RESULT OUT OF [...] mg/dL Calcium Lvl 8.5 Performed By: #### CBC, ADIFF, ANEU, CAION #### [place] [id number] [place], [place] [address] #### BMP, GFR #### [address] [address] .GFR Collected: 12/02/2017 Status: F Source: [facility] 5:14 AM [facility] REPOSITORY TYPE CODE TESTS RESULT OUT OF REFERENCE UNITS RANGE LAB GFRAA(LOINC ml/min/1.73 ) sqm GFR 33 Citizen [place] Result Comment: GFR Population mean for , [...] mL/min/1.73 square meters Performed By: #### CBC, ADIFF, ANEU, CAION #### [place] [id number] [place], [place] [address] #### BMP, GFR #### [address] [address] CAION Collected: 12/02/2017 Status: F Source: [facility] 5:14 AM [facility] REPOSITORY TYPE CODE TESTS RESULT OUT OF REFERENCE UNITS RANGE LAB CAION(LOINC 1.12-1.32 mmol/L ) Calcium 1.21 Ionized Performed By: #### CBC, ADIFF, ANEU, CAION #### [address] [place] [address] [place], [place] [address] #### BMP, GFR #### [address] [address] Observed: 12/02/2017 Status: F Source: [facility] CDPCR 1:11 AM [facility] REPOSITORY . MICRO - Microbiology PROCEDURE: Clostridium [...] values are highly dependent on prevalence. The be2 C. difficile PCR Assay performance may vary depending on the prevalence and population tested. Performing Locations *1: This test was performed at: [facility], [address] [place] [address], [facility]- , [facility] Performed By: #### CDPCR #### [address] [address] Collected: 12/02/2017 Status: F Source: [facility] 12:12 AM [facility] REPOSITORY TYPE CODE TESTS RESULT OUT OF RANGE REFERENCE UNITS LAB HGB(LOINC) 12.0-16.0 G/dL Low Hgb 9.0 LAB HCT(LOINC) 37.0-47.0 % Low Hct 26.4 Performed By: #### HH #### [address] [address] RBC (PRODUCT) Collected: 12/01/2017 Status: F Source: [facility] 9:46 PM [facility] REPOSITORY TYPE CODE TESTS RESULT OUT OF REFERENCE UNITS RANGE LAB RBCPR(LOINC ) RBC Product RBC Ready Ready for Pickup Performed By: #### RBCP #### [address] [address] Collected: 12/01/2017 Status: F Source: [facility] 8:48 PM [facility] REPOSITORY TYPE CODE TESTS RESULT OUT OF RANGE REFERENCE UNITS LAB HGB(LOINC) 12.0-16.0 G/dL Low Hgb 7.7 LAB HCT(LOINC) 37.0-47.0 % Low Hct 22.8 Performed By: #### HH #### [address] [address] RBC (PRODUCT) Collected: 12/01/2017 Status: F Source: [facility] 6:01 PM [facility] REPOSITORY TYPE CODE TESTS RESULT OUT OF REFERENCE UNITS RANGE LAB RBCPR(LOINC ) RBC Product RBC Ready Ready for Pickup Performed By: #### RBCP #### [address] [id number] XR FOOT TWO VIEWS Observed: 12/01/2017 Status: F Source: [facility] LEFT 4:50 PM [facility] REPOSITORY ORIGINAL XR FOOT TWO VIEWS LEFT [...] GEL ABO Collected: 12/01/2017 Status: F Source: [facility] 12:20 PM [facility] REPOSITORY TYPE CODE TESTS RESULT OUT OF RANGE REFERENCE UNITS LAB ABORH(LOINC ) Unknown ABO/Rh O NEG Interp Performed By: #### ABOG, ANSG #### [address] [address] GEL ABS Collected: 12/01/2017 Status: F Source: [facility] 12:20 PM [facility] REPOSITORY TYPE CODE TESTS RESULT OUT OF REFERENCE UNITS RANGE LAB ANSG(LOINC ) Antibody Negative ABSC Screen Gel Performed By: #### ABOG, ANSG #### [address] [address] RBC (PRODUCT) Collected: 12/01/2017 Status: F Source: [facility] 11:28 AM [facility] REPOSITORY TYPE CODE TESTS RESULT OUT OF REFERENCE UNITS RANGE LAB RBCPR(LOINC ) RBC Product RBC Ready Ready for Pickup Performed By: #### RBCP #### [address] [address] CBC Collected: 12/01/2017 Status: F Source: [facility] 7:15 AM [facility] REPOSITORY TYPE CODE TESTS RESULT OUT OF [...] Low MPV 6.7 Performed By: #### CBC, ADIFF, ANEU #### [address] [address] .AUTO DIFF Collected: 12/01/2017 Status: F Source: [facility] 7:15 AM [facility] REPOSITORY TYPE CODE TESTS RESULT OUT OF [...] ) Basophil, 0.10 Absolute Performed By: #### CBCJACE, ANEU #### [address] [address] .NEUABS Collected: 12/01/2017 Status: F Source: [facility] 7:15 AM [facility] REPOSITORY TYPE CODE TESTS RESULT OUT OF REFERENCE UNITS RANGE LAB ANEU(LOINC) 2.85-6.16 10 3/mcL High Neutrophil, 7.90 Absolute Performed By: #### CBCJACE, ANEU #### [address] [address] CBC Collected: 11/24/2017 Status: F Source: [facility] 5:21 AM [facility] REPOSITORY TYPE CODE TESTS RESULT OUT OF [...] fL Low MPV 7.3 Performed By: #### CBC, ADIFF, ANEU #### [address] [address] #### CMP, GFR #### [address] [address] .AUTO DIFF Collected: 11/24/2017 Status: F Source: [facility] 5:21 AM [facility] REPOSITORY TYPE CODE TESTS RESULT OUT OF [...] Basophil, 0.00 Absolute Performed By: #### CBC, ADIFF, ANEU #### [address] [address] #### CMP, GFR #### [address] [address] .NEUABS Collected: 11/24/2017 Status: F Source: [facility] 5:21 AM [facility] REPOSITORY TYPE CODE TESTS RESULT OUT OF REFERENCE UNITS RANGE LAB ANEU(LOINC) 2.85-6.16 10 3/mcL High Neutrophil, 7.10 Absolute Performed By: #### CBC, ADIFF, ANEU #### [address] [address] #### CMP, GFR #### [address] [address] CMP Collected: 11/24/2017 Status: F Source: [facility] 5:21 AM [facility] REPOSITORY TYPE CODE TESTS [...] U/L Low ALT/SGPT 7 Performed By: #### CBC, ADIFF, ANEU #### [address] [address] #### CMP, GFR #### [address] [address] .GFR Collected: 11/24/2017 Status: F Source: [facility] 5:21 AM [facility] REPOSITORY TYPE CODE TESTS RESULT OUT OF REFERENCE UNITS RANGE LAB GFRAA(LOINC ml/min/1.73 ) sqm GFR 38 Citizen [place] Result Comment: GFR Population mean for , [...] mL/min/1.73 square meters Performed By: #### CBC, ADIFF, ANEU #### [address] [address] #### CMP, GFR #### [address] [address] CBC Collected: 11/16/2017 Status: F Source: [facility] 5:57 AM [facility] REPOSITORY TYPE CODE TESTS RESULT OUT OF [...] 6.6-10.5 fL MPV 7.5 Performed By: #### CBC, ADIFF, ANEU, BMP, GFR #### [address] [address] .AUTO DIFF Collected: 11/16/2017 Status: F Source: [facility] 5:57 AM [facility] REPOSITORY TYPE CODE TESTS RESULT OUT OF [...] Basophil, 0.00 Absolute Performed By: #### CBC, ADIFF, ANEU, BMP, GFR #### [address] [address] .NEUABS Collected: 11/16/2017 Status: F Source: [facility] 5:57 AM [facility] REPOSITORY TYPE CODE TESTS RESULT OUT OF REFERENCE UNITS RANGE LAB ANEU(LOINC) 2.25-8.10 10 3/mcL High Neutrophil, 10.00 Absolute Performed By: #### CBCJACE ANEU, BMP, GFR #### [place] [id number] BMP Collected: 11/16/2017 Status: F Source: [facility] 5:57 AM [facility] REPOSITORY TYPE CODE TESTS RESULT OUT OF [...] Low Calcium Lvl 7.7 Performed By: #### JACE WEINER ANEU, BMP, GFR #### [address] [address] .GFR Collected: 11/16/2017 Status: F Source: [facility] 5:57 AM [facility] REPOSITORY TYPE CODE TESTS RESULT OUT OF REFERENCE UNITS RANGE LAB GFRAA(LOINC ml/min/1.73 ) sqm GFR 47 Citizen [place] Result Comment: GFR Population mean for , [...] mL/min/1.73 square meters Performed By: #### CBC, ADIFF, ANEU, BMP, GFR #### [place] [address] Observed: 11/15/2017 Status: F Source: [facility] 5:49 PM [facility] REPOSITORY . MICRO [...] aeruginosa Refer to previous culture for susceptibility. [phone] No anaerobes isolated at 96 hours. PRELIMINARY REPORTS Preliminary Report [] Verified Date/Time/Personnel: 11/17/2017 10:12 EDT Few Pseudomonas aeruginosa Refer to previous culture for susceptibility. [id number] No anaerobes isolated to date. Preliminary Report [] Verified Date/Time/Personnel: 11/16/2017 11:33 EDT Few Non Fermentering Gram Negative Rods Final report to follow. No anaerobes isolated to date. STAINS GS [] Verified Date/Time/Personnel: 11/15/2017 18:54 EDT 2+ Polymorphonuclear cells No organisms seen. Performing Locations *1: This test was performed at: [address] Performed By: #### CWDP #### [place] [address] Observed: 11/15/2017 Status: F Source: [facility] 5:11 PM [facility] REPOSITORY . MICRO [...] Locations *1: This test was performed at: [address] Performed By: #### CWDP #### [place] [address] XR FLUORO 1-2 HRS Observed: 11/15/2017 Status: F Source: [facility] TECH TIME 3:00 PM [facility] REPOSITORY ORIGINAL Fluoroscopic [...] MINIMUM 3 Observed: 11/14/2017 Status: F Source: [facility] VIEWS LEFT 10:30 AM [facility] REPOSITORY ORIGINAL XR ANKLE MINIMUM 3 VIEWS [...] PM CBC Collected: 11/14/2017 Status: F Source: [facility] 3:50 AM [facility] REPOSITORY TYPE CODE TESTS RESULT OUT OF [...] Performed By: #### CBC, DIFF, MORPH #### [place] [address] .MANUAL DIFF Collected: 11/14/2017 Status: F Source: [facility] 3:50 AM [facility] REPOSITORY TYPE CODE TESTS RESULT OUT OF [...] Performed By: #### CBC, DIFF, MORPH #### [place] [address] .MORPH Collected: 11/14/2017 Status: F Source: [facility] 3:50 AM [facility] REPOSITORY TYPE CODE TESTS RESULT OUT OF REFERENCE UNITS RANGE LAB PLTE(LOINC ) Platelet Estimate Normal LAB ANIS(LOINC ) Anisocytosis Slight Performed By: #### CBC, DIFF, MORPH #### [place] [address] XR ABDOMEN COMPLETE Observed: 11/13/2017 Status: F Source: [facility] W/DECUB/ERECT 12:15 PM [facility] REPOSITORY ORIGINAL XR ABDOMEN COMPLETE W/DECUB/ERECT, 2 [...] PM CBC Collected: 11/13/2017 Status: F Source: [facility] 10:00 AM [facility] REPOSITORY TYPE CODE TESTS RESULT OUT OF [...] 6.6-10.5 fL MPV 7.7 Performed By: #### CBC, DIFF, MORPH #### [place] [address] .MANUAL DIFF Collected: 11/13/2017 Status: F Source: [facility] 10:00 AM [facility] REPOSITORY TYPE CODE TESTS RESULT OUT OF [...] Basophil, Abs 0.00 Manual Performed By: #### CBC, DIFF, MORPH #### [address] [address] .MORPH Collected: 11/13/2017 Status: F Source: [facility] 10:00 AM [facility] REPOSITORY TYPE CODE TESTS RESULT OUT OF REFERENCE UNITS RANGE LAB PLTE(LOINC ) Platelet Estimate Normal LAB ANIS(LOINC ) Anisocytosis Slight LAB POIK(LOINC ) Poik Slight LAB HYPC(LOINC ) Hypochrom Slight LAB POLC(LOINC ) Polychrom Slight Performed By: #### CBC, DIFF, MORPH #### [place] [address] BMP Collected: 11/13/2017 Status: F Source: [facility] 4:35 AM [facility] REPOSITORY TYPE CODE TESTS RESULT OUT OF [...] 9.1 Performed By: #### BMP, GFR #### [address] [address] .GFR Collected: 11/13/2017 Status: F Source: [facility] 4:35 AM [facility] REPOSITORY TYPE CODE TESTS RESULT OUT OF REFERENCE UNITS RANGE LAB GFRAA(LOINC ml/min/1.73 ) sqm GFR 47 Citizen [place] Result Comment: GFR Population mean for , [...] meters Performed By: #### BMP, GFR #### [place] [address] BMP Collected: 11/12/2017 Status: F Source: [facility] 3:42 AM [facility] REPOSITORY TYPE CODE TESTS [...] 8.7 Performed By: #### BMP, GFR #### [address] [address] .GFR Collected: 11/12/2017 Status: F Source: [facility] 3:42 AM [facility] REPOSITORY TYPE CODE TESTS RESULT OUT OF REFERENCE UNITS RANGE LAB GFRAA(LOINC ml/min/1.73 ) sqm GFR 44 Citizen [place] Result Comment: GFR Population mean for , [...] meters Performed By: #### BMP, GFR #### [address] [address] XR ANKLE MINIMUM 3 Observed: 11/11/2017 Status: F Source: [facility] VIEWS LEFT 8:15 PM [facility] REPOSITORY ORIGINAL XR ANKLE MINIMUM [...] 1-2 HRS Observed: 11/11/2017 Status: F Source: [facility] TECH TIME 4:00 PM [facility] REPOSITORY ORIGINAL XR FLUORO 1-2 HRS TECH TIME CLINICAL STATEMENT: OPEN LT ANKLE FX COMPARISON: LEFT ankle radiographs, 11/11/2017 Technical Details: Tech Time - 4:00P-5:15P; C-Arm # - 7; Total Dose - 1.01 MGY; Images - 5; 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..] Basophil, 0.00 Absolute Performed By: #### CBC, ADIFF, ANEU, BMP, GFR #### [place] [address] .NEUABS Collected: 11/11/2017 Status: F Source: [facility] 4:15 [facility] REPOSITORY TYPE CODE TESTS RESULT OUT OF REFERENCE UNITS RANGE LAB ANEU(LOINC) 2.25-8.10 10 3/mcL High Neutrophil, 8.30 Absolute Performed By: #### CBC, ADIFF, ANEU, BMP, GFR #### [place] [address] BMP Collected: 11/11/2017 Status: F Source: [facility] 4:15 AM [facility] REPOSITORY TYPE CODE TESTS RESULT OUT OF [...] Low Calcium Lvl 8.3 Performed By: #### CBC, ADIFF, ANEU, BMP, GFR #### [address] [address] .GFR Collected: 11/11/2017 Status: F Source: [facility] 4:15 AM [facility] REPOSITORY TYPE CODE TESTS RESULT OUT OF REFERENCE UNITS RANGE LAB GFRAA(LOINC ml/min/1.73 ) sqm GFR 32 Citizen [place] Result Comment: GFR Population mean for , [...] mL/min/1.73 square meters Performed By: #### CBC, ADIFF, ANEU, BMP, GFR #### [place] [address] HH Collected: 11/10/2017 Status: F Source: [facility] 9:19 PM [facility] REPOSITORY TYPE CODE TESTS RESULT OUT OF RANGE REFERENCE UNITS LAB HGB(LOINC) 12.0-16.0 G/dL Low Hgb 8.3 LAB HCT(LOINC) 34.0-46.0 % Low Hct 25.6 Performed By: #### HH #### [place] [address] OCC (LAB) Collected: 11/10/2017 Status: F Source: [facility] 8:00 PM [facility] REPOSITORY TYPE CODE TESTS RESULT OUT OF RANGE REFERENCE UNITS LAB OCC(LOINC) Negative Unknown Occult Positive Blood Fecal Result Comment: This test utilizes the guaiac fecal blood method, which detects peroxidase activity (heme) indicating bleeding from stomach, small intestine, or large intestine. If bleeding from either upper or lower gastrointestinal tract is a clinical consideration, the [facility] recommends the use of both the guaiac fecal blood test and the Immunochemical fecal blood test. Performed By: #### OCC #### [place] [address] MG Collected: 11/10/2017 Status: F Source: [facility] 9:08 AM [facility] REPOSITORY TYPE CODE TESTS RESULT OUT OF REFERENCE UNITS RANGE LAB MG(LOINC) 1.6-2.4 mg/dL Magnesium Lvl 2.0 Performed By: #### MG, ABORH, ANTIS #### [place] [address] TABO Collected: 11/10/2017 Status: F Source: [facility] 9:08 AM [facility] REPOSITORY TYPE CODE TESTS RESULT OUT OF RANGE REFERENCE UNITS LAB ABORH(LOINC ) Unknown ABO/Rh O NEG Interp Performed By: #### MG, ABORH, ANTIS #### [place] [address] TABS Collected: 11/10/2017 Status: F Source: [facility] 9:08 AM [facility] REPOSITORY TYPE CODE TESTS RESULT OUT OF REFERENCE UNITS RANGE LAB ANST(LOINC ) Antibody Negative ABSC Screen Tango Performed By: #### MG, ABORH, ANTIS #### [place] [address] RBC (PRODUCT) Collected: 11/10/2017 Status: F Source: [facility] 8:49 AM [facility] REPOSITORY TYPE CODE TESTS RESULT OUT OF REFERENCE UNITS RANGE LAB RBCPR(LOINC ) RBC Product RBC Ready Ready for Pickup Performed By: #### RBCP #### [address] [address] CBC Collected: 11/10/2017 Status: F Source: [facility] 3:41 AM [facility] REPOSITORY TYPE CODE TESTS RESULT OUT OF [...] fL MPV 8.2 Performed By: #### CBC, ADIFF, ANEU, BMP, GFR #### [address] [address] .AUTO DIFF Collected: 11/10/2017 Status: F Source: [facility] 3:41 AM [facility] REPOSITORY TYPE CODE TESTS RESULT OUT OF [...] Basophil, 0.00 Absolute Performed By: #### CBC, ADIFF, ANEU, BMP, GFR #### [place] [address] .NEUABS Collected: 11/10/2017 Status: F Source: [facility] 3:41 AM [facility] REPOSITORY TYPE CODE TESTS RESULT OUT OF REFERENCE UNITS RANGE LAB ANEU(LOINC) 2.25-8.10 10 3/mcL High Neutrophil, 9.00 Absolute Performed By: #### CBC, ADIFF, ANEU, BMP, GFR #### [place] [address] BMP Collected: 11/10/2017 Status: F Source: [facility] 3:41 AM [facility] REPOSITORY TYPE CODE TESTS RESULT OUT OF [...] Low Calcium Lvl 7.7 Performed By: #### CBC, ADIFF, ANEU, BMP, GFR #### [place] [address] .GFR Collected: 11/10/2017 Status: F Source: [facility] 3:41 AM [facility] REPOSITORY TYPE CODE TESTS RESULT OUT OF REFERENCE UNITS RANGE LAB GFRAA(LOINC ml/min/1.73 ) sqm GFR 25 Citizen [place] Result Comment: GFR Population mean for , [...] mL/min/1.73 square meters Performed By: #### CBC, ADIFF, ANEU, BMP, GFR #### [place] [address] XR ANKLE MINIMUM 3 Observed: 11/09/2017 Status: F Source: [facility] VIEWS LEFT 1:00 PM [facility] REPOSITORY ORIGINAL [...] PM BMP Collected: 11/09/2017 Status: F Source: [facility] 3:44 AM [facility] REPOSITORY TYPE CODE TESTS RESULT OUT OF [...] Low Calcium Lvl 7.8 Performed By: #### BMP, GFR #### [place] [address] .GFR Collected: 11/09/2017 Status: F Source: [facility] 3:44 AM [facility] REPOSITORY TYPE CODE TESTS RESULT OUT OF REFERENCE UNITS RANGE LAB GFRAA(LOINC ml/min/1.73 ) sqm GFR 19 Citizen [place] Result Comment: GFR Population mean for , [...] meters Performed By: #### BMP, GFR #### [place] [address] .GFR Collected: 11/08/2017 Status: F Source: [facility] 3:51 AM [facility] REPOSITORY TYPE CODE TESTS RESULT OUT OF REFERENCE UNITS RANGE LAB GFRAA(LOINC ml/min/1.73 ) sqm GFR 23 Citizen [place] Result Comment: GFR Population mean for , [...] mL/min/1.73 square meters Performed By: #### GFR, CBC, ADIFF, ANEU, BMP #### [place] [address] CBC Collected: 11/08/2017 Status: F Source: [facility] 3:51 AM [facility] REPOSITORY TYPE CODE TESTS RESULT OUT OF [...] fL MPV 8.2 Performed By: #### GFR, CBC, ADIFF, ANEU, BMP #### [place] [id number] .AUTO DIFF Collected: 11/08/2017 Status: F Source: [facility] 3:51 AM [facility] REPOSITORY TYPE CODE TESTS RESULT OUT OF [...] Basophil, 0.00 Absolute Performed By: #### GFR, CBC, ADIFF, ANEU, BMP #### [place] [address] .NEUABS Collected: 11/08/2017 Status: F Source: [facility] 3:51 AM [facility] REPOSITORY TYPE CODE TESTS RESULT OUT OF REFERENCE UNITS RANGE LAB ANEU(LOINC) 2.25-8.10 10 3/mcL Neutrophil, 8.10 Absolute Performed By: #### GFR, CBC, ADIFF, ANEU, BMP #### [place] [address] BMP Collected: 11/08/2017 Status: F Source: [facility] 3:51 AM [facility] REPOSITORY TYPE CODE TESTS RESULT OUT OF [...] Low Calcium Lvl 7.9 Performed By: #### GFR, CBC, ADIFF, ANEU, BMP #### [place] [address] EOS Collected: 11/07/2017 Status: F Source: [facility] 9:45 PM [facility] REPOSITORY TYPE CODE TESTS RESULT OUT OF REFERENCE UNITS RANGE LAB EOSRC(LOIN C) Eosinophil Spec Urine Type LAB EOSMR(LOIN C) Eos Smear 0 Result Comment: The units for an eosinophil smear depend upon specimen type: Stool, sputum, nasal specimens: number of cells/hp field Urine, bronchial lavage: number of cells/100 cells (%) Performed By: #### EOS #### [place] [address] LAC Collected: 11/07/2017 Status: F Source: [facility] 4:01 AM [facility] REPOSITORY TYPE CODE TESTS RESULT OUT OF REFERENCE UNITS RANGE LAB LAC(LOINC) 0.2-2.0 mmol/L Lactic Acid 1.6 Lvl Performed By: #### LAC #### [place] [address] CBC Collected: 11/07/2017 Status: F Source: [facility] 4:01 AM [facility] REPOSITORY TYPE CODE TESTS RESULT OUT OF [...] 6.6-10.5 fL MPV 7.8 Performed By: #### CBC, ADIFF, ANEU, GFR, BMP #### [address] [address] .AUTO DIFF Collected: 11/07/2017 Status: F Source: [facility] 4:01 AM [facility] REPOSITORY TYPE CODE TESTS RESULT OUT OF [...] Basophil, 0.00 Absolute Performed By: #### CBC, ADIFF, ANEU, GFR, BMP #### [address] [address] .NEUABS Collected: 11/07/2017 Status: F Source: [facility] 4:01 AM [facility] REPOSITORY TYPE CODE TESTS RESULT OUT OF REFERENCE UNITS RANGE LAB ANEU(LOINC) 2.25-8.10 10 3/mcL High Neutrophil, 10.30 Absolute Performed By: #### CBC, ADIFF, ANEU, GFR, BMP #### [address] [address] .GFR Collected: 11/07/2017 Status: F Source: [facility] 4:01 AM [facility] REPOSITORY TYPE CODE TESTS RESULT OUT OF REFERENCE UNITS RANGE LAB GFRAA(LOINC ml/min/1.73 ) sqm GFR 21 Citizen [place] Result Comment: GFR Population mean for , [...] mL/min/1.73 square meters Performed By: #### CBC, ADIFF, ANEU, GFR, BMP #### [place] [address] BMP Collected: 11/07/2017 Status: F Source: [facility] 4:01 AM [facility] REPOSITORY TYPE CODE TESTS RESULT OUT OF [...] Low Calcium Lvl 7.7 Performed By: #### CBC, ADIFF, ANEU, GFR, BMP #### [address] [address] UA Collected: 11/07/2017 Status: F Source: [facility] 12:57 AM [facility] REPOSITORY TYPE CODE TESTS RESULT OUT OF [...] UA Leuk Est Trace Performed By: #### UA, UAMIC #### [address] [address] UAMIC Collected: 11/07/2017 Status: F Source: [facility] 12:57 AM [facility] REPOSITORY TYPE CODE TESTS RESULT OUT OF REFERENCE UNITS RANGE LAB RBCUA(LOIN 0-2 /hpf C) UA RBC Negative LAB WBCUA(LOIN 0-5 /hpf C) UA WBC Negative LAB EPIUA(LOIN 0-20 /hpf C) UA Squam Epithelial Negative LAB AMOUA(LOIN /hpf C) UA 2+ Amorphus Performed By: #### UA, UAMIC #### [place] [address] CRUR Collected: 11/07/2017 Status: F Source: [facility] 12:57 AM [facility] REPOSITORY TYPE CODE TESTS RESULT OUT OF REFERENCE UNITS RANGE LAB CRU(LOINC) mg/dL U Creatinine 75.1 Performed By: #### CRALEYDA, NAUR #### [place] [address] NAUR Collected: 11/07/2017 Status: F Source: [facility] 12:57 AM [facility] REPOSITORY TYPE CODE TESTS RESULT OUT OF REFERENCE UNITS RANGE LAB KOLTON(LOINC) mEq/L U Sodium 45.0 Performed By: #### IVONNE, NAUR #### [place] [address] HH Collected: 11/07/2017 Status: F Source: [facility] 12:22 AM [facility] REPOSITORY TYPE CODE TESTS RESULT OUT OF RANGE REFERENCE UNITS LAB HGB(LOINC) 12.0-16.0 G/dL Low Hgb 8.8 LAB HCT(LOINC) 34.0-46.0 % Low Hct 27.3 Performed By: #### HH #### [place] [address] HH Collected: 11/06/2017 Status: F Source: [facility] 8:12 PM [facility] REPOSITORY Order Comment: Call if below 8 or active GI bleeding TYPE CODE TESTS RESULT OUT OF RANGE REFERENCE UNITS LAB HGB(LOINC) 12.0-16.0 G/dL Low Hgb 7.8 LAB HCT(LOINC) 34.0-46.0 % Low Hct 24.4 Performed By: #### HH, GFR, BMP #### [place] [address] .GFR Collected: 11/06/2017 Status: F Source: [facility] 8:12 PM [facility] REPOSITORY TYPE CODE TESTS RESULT OUT OF REFERENCE UNITS RANGE LAB GFRAA(LOINC ml/min/1.73 ) sqm GFR 24 Citizen [place] Result Comment: GFR Population mean for , [...] mL/min/1.73 square meters Performed By: #### HH, GFR, BMP #### [place] [address] BMP Collected: 11/06/2017 Status: F Source: [facility] 8:12 PM [facility] REPOSITORY Order Comment: call [...] Low Calcium Lvl 7.0 Performed By: #### HH, GFR, BMP #### [address] [address] .GFR Collected: 11/06/2017 Status: F Source: [facility] 10:05 AM [facility] REPOSITORY TYPE CODE TESTS RESULT OUT OF REFERENCE UNITS RANGE LAB GFRAA(LOINC ml/min/1.73 ) sqm GFR 19 Citizen [place] Result Comment: GFR Population mean for , [...] meters Performed By: #### GFR, BMP #### [address] [address] BMP Collected: 11/06/2017 Status: F Source: [facility] 10:05 AM [facility] REPOSITORY TYPE CODE TESTS RESULT OUT OF [...] 8.0 Performed By: #### GFR, BMP #### [facility] [address] [place] [address] CBC Collected: 11/06/2017 Status: F Source: [facility] 6:27 AM [facility] REPOSITORY TYPE CODE TESTS RESULT OUT OF [...] fL MPV 8.2 Performed By: #### CBC, ADIFF, ANEU #### [place] [address] .AUTO DIFF Collected: 11/06/2017 Status: F Source: [facility] 6:27 AM [facility] REPOSITORY TYPE CODE TESTS RESULT OUT OF [...] ) Basophil, 0.00 Absolute Performed By: #### CBCJACE, ANEU #### [place] [address] .NEUABS Collected: 11/06/2017 Status: F Source: [facility] 6:27 AM [facility] REPOSITORY TYPE CODE TESTS RESULT OUT OF REFERENCE UNITS RANGE LAB ANEU(LOINC) 2.25-8.10 10 3/mcL High Neutrophil, 13.30 Absolute Performed By: #### CBC, SLADEIFF, ANEU #### [place] [address] CT HIP W/O CONTRAST Observed: 11/05/2017 Status: F Source: [facility] LEFT 8:48 PM [facility] REPOSITORY ORIGINAL CT HIP W/O CONTRAST LEFT [...] MINIMUM 2 Observed: 11/05/2017 Status: F Source: [facility] VIEWS LEFT 4:27 PM [facility] REPOSITORY ORIGINAL [...] CONTRAST Observed: 11/05/2017 Status: F Source: [facility] LEFT 4:21 PM [facility] REPOSITORY ORIGINAL CT [...] AM CBC Collected: 11/05/2017 Status: F Source: [facility] 4:05 [facility] REPOSITORY TYPE CODE TESTS RESULT OUT [...] 6.6-10.5 fL MPV 7.9 Performed By: #### CBC, ADIFF, ANEU, BMP, GFR, TROPI, APTT, PRO, ABORH, ANTIS #### [place] [address] .AUTO DIFF Collected: 11/05/2017 Status: F Source: [facility] 4:[address] [place] [address] REPOSITORY TYPE CODE TESTS RESULT OUT OF [...] ) Basophil, 0.20 Absolute Performed By: #### CBC, ADIFF, ANEU, BMP, GFR, TROPI, APTT, PRO, ABORH, ANTIS #### [address] [address] .NEUABS Collected: 11/05/2017 Status: F Source: [facility] 4:05 [facility] REPOSITORY TYPE CODE TESTS RESULT OUT OF REFERENCE UNITS RANGE LAB ANEU(LOINC) 2.25-8.10 10 3/mcL High Neutrophil, 18.60 Absolute Performed By: #### CBC, ADIFF, ANEU, BMP, GFR, TROPI, APTT, PRO, ABORH, ANTIS #### [place] [address] BMP Collected: 11/05/2017 Status: F Source: [facility] 4:[address] [place] [address] REPOSITORY TYPE CODE TESTS RESULT OUT OF [...] mg/dL Calcium Lvl 9.2 Performed By: #### CBC, ADIFF, ANEU, BMP, GFR, TROPI, APTT, PRO, ABORH, ANTIS #### [address] [address] .GFR Collected: 11/05/2017 Status: F Source: [facility] 4:05 [facility] REPOSITORY TYPE CODE TESTS RESULT OUT OF REFERENCE UNITS RANGE LAB GFRAA(LOINC ml/min/1.73 ) sqm GFR 20 Citizen Of [place] Result Comment: GFR Population mean for , [...] mL/min/1.73 square meters Performed By: #### CBC, ADIFF, ANEU, BMP, GFR, TROPI, APTT, PRO, ABORH, ANTIS #### [place] [address] TROPI Collected: 11/05/2017 Status: F Source: [facility] 4:05 PM [facility] REPOSITORY TYPE CODE TESTS [...] ECG changes may help assess possibility of [place]. *Other non-acute coronary syndrome conditions such as CHF, myocarditis, pulmonary emboli, sepsis and cardiac surgery could result in myocardial damage and increased troponin levels. Performed By: #### CBC, ADIFF, ANEU, BMP, GFR, TROPI, APTT, PRO, ABORH, ANTIS #### [place] [address] APTT Collected: 11/05/2017 Status: F Source: [facility] 4:05 [facility] REPOSITORY TYPE CODE TESTS RESULT OUT OF REFERENCE UNITS RANGE LAB PDOSE(LOIN C) Heparin dose None (APTT) LAB APTT0(LOIN 25.0-35.0 seconds C) APTT 30.8 Result Comment: For Heparin anticoagulation therapy, the recommended therapeutic range is: 54-77 seconds (APTT Correlation with Anti-Xa therapeutic range of 0.3-0.7 units/ml). PLEASE REFERENCE THE PHARMACY PROTOCOL FOR DOSING. Performed By: #### CBC, ADIFF, ANEU, BMP, GFR, TROPI, APTT, PRO, ABORH, ANTIS #### [place] [address] PRO Collected: 11/05/2017 Status: F Source: [facility] 4:[address] [place] [address] REPOSITORY TYPE CODE TESTS RESULT OUT OF REFERENCE UNITS RANGE LAB PT(LOINC) 9.0-14.5 seconds Protime 12.0 Result Comment: Effective 10/13/07, Protime results may be affected by some antibiotics (i.e. Ciprofloxacin, Azithromycin, Bactrim) which may potentiate the action of oral anticoagulants, with further increases in Protime/INR. LAB INR(LOINC) ratio PT International Ratio 1.0 Result Comment: [place] [employer] (CHEST, 1992, 102:312S-25S) recommended therapeutic range for oral anticoagulant therapy is: LOW RISK: Prophylaxis of venous thrombosis INR: 2.0-3.0 Treatment of pulmonary embolism 2.0-3.0 Prevention of systemic embolism 2.0-3.0 HIGH RISK: Mechanical prosthetic valves 2.5-3.5 Performed By: #### CBC, ADIFF, ANEU, BMP, GFR, TROPI, APTT, PRO, ABORH, ANTIS #### [place] [address] TABO Collected: 11/05/2017 Status: F Source: [facility] 4:05 PM [facility]OUNDATION REPOSITORY TYPE CODE TESTS RESULT OUT OF RANGE REFERENCE UNITS LAB ABORH(LOINC ) Unknown ABO/Rh O NEG Interp Performed By: #### CBC, ADIFF, ANEU, BMP, GFR, TROPI, APTT, PRO, ABORH, ANTIS #### [facility] [place] [facility] [address] [place] [address] TABS Collected: 11/05/2017 Status: F Source: [facility] 4:05 PM [facility] REPOSITORY TYPE CODE TESTS RESULT OUT OF REFERENCE UNITS RANGE LAB ANST(LOINC ) Antibody Negative ABSC Screen Tango Performed By: #### CBC, ADIFF, ANEU, BMP, GFR, TROPI, APTT, PRO, ABORH, ANTIS #### [place] [id number], [place] [id number] XR PELVIS 1 OR 2 Observed: 11/05/2017 Status: F Source: [facility] VIEWS 3:39 PM [facility] REPOSITORY ORIGINAL XR PELVIS 1 OR 2 VIEWS CLINICAL STATEMENT: pain; trauma patient. COMPARISON: None FINDINGS: The study is limited by the patient's body habitus. There is a questionable fracture of the LEFT femoral neck. Degenerative changes are seen within the hip joints and spine. IMPRESSION: Questionable LEFT femoral neck fracture. A dedicated x-ray of the LEFT hip is recommended. Interpreted By: Sloane Valdovinos MD Preliminary Report By: Sloane Valdovinos MD Electronically Signed By: Sloane Valdovinos MD Dictated Date: 11/05/2017 3:43:58 PM Prelim Date: 11/05/2017 3:43:58 PM Sign Date: 11/05/2017 3:45:12 PM XR CHEST 1 VIEW Observed: 11/05/2017 Status: F Source: [facility] 3:38 PM [facility]ATION REPOSITORY ORIGINAL XR CHEST 1 VIEW at 3:52 PM CLINICAL STATEMENT: pain; trauma patient COMPARISON: None FINDINGS:The heart is enlarged. No vascular congestion, pneumothorax, focal consolidation or large pleural effusion seen. There is absence of the lateral aspect of the RIGHT clavicle, consistent with pr ior injury. The osseous structures are grossly intact. IMPRESSION:No acute process. Cardiomegaly. Interpreted By: Sloane Valdovinos MD Preliminary Report By: Sloane Valdovinos MD Electronically Signed By: Sloane Valdovinos MD Dictated Date: 11/05/2017 3:47:43 PM Prelim Date: 11/05/2017 3:47:43 PM Sign Date: 11/05/2017 3:48:57 PM EMERGENCY DEPARTMENT Observed: 11/05/2017 Status: F Source: [place] SUMMARY 1:50 PM [facility] REPOSITORY [facility] Medical Records Department [address] [place] [address] Emergency Department Summary 11/05/17 1347 MR#: [id number] Acct: [id number] Name: KANDY LAUREN Rep #: [id number] : 1960 57 From: Rick Barcenas MD [...] open fracture. She requested to go to [facility]. I spoke with Dr. Robbins in the [...] injury, dehydration This note was generated with NemeriX dictation software. It may contain incorrect words, [...] your Primary Care Provider. Call [facility] ([phone]) or report to the closest Emergency Room. Call 911 if necessary. 11/05/17 1350 <Electronically signed by Rick Barcenas MD> Date Rick Barcenas MD Cosigner Signature (If Indicated): Date CC: Pia Newton MD Observed: 11/05/2017 Status: F Source: [place] STOOL OCCULT BLOOD 1:05 PM [facility] IFOB REPOSITORY Order Date: 11/05/17 STOB iFOB Occult Blood Negative Performed By: #### M100.7900 #### [facility] [address] [place], [address] CBC W/DIFF, AUTOMATED Collected: 11/05/2017 Status: F Source: [place] 12:50 PM [facility] REPOSITORY TYPE CODE TESTS RESULT OUT OF [...] NEUTROPHILIA NOTED. Performed By: #### L100.0100 #### [facility] [address] [place] [address]. [place], [address] BASIC METABOLIC Collected: 11/05/2017 Status: F Source: [place] PROFILE ([facility]) 12:50 PM [facility] REPOSITORY TYPE CODE TESTS RESULT OUT OF [...] GAP 13 Performed By: #### L500.2500 #### [facility] [address] [place], [address] PROTHROMBIN TIME W/INR Collected: 11/05/2017 Status: F Source: [place] 12:50 PM [facility] REPOSITORY TYPE CODE TESTS RESULT OUT OF RANGE REFERENCE UNITS LAB L300.4150 11.7-14.9 SECONDS Normal PROTIME 14.7 LAB L300.4200 Normal INR 1.2 Performed By: #### L300.3900 #### [facility] [address] [place], [address] ANKLE 2 VIEWS Observed: 11/05/2017 Status: F Source: [place] 12:26 PM [facility] REPOSITORY [facility] Imaging Services [address] [place] [address] Ankle 2 Views MR#: [id number] Acct: [id number] Name: KANDY LAUREN ANN Rep #: [id number] : 1960 F 57 From: Jason Fernandez MD PCP: Pia Newtno MD Status: REG ER Study: Ankle 2 Views Date of Exam: 11/05/17 Exam# [id number] Ordering Dr: Rick Barcenas MD STUDY: X-RAY [...] CC: Pia Newton MD; Rick Barcenas MD Procedure Rn: Signed CBC W/DIFF, AUTOMATED Collected: 10/23/2017 Status: F Source: [place] 2:38 PM [facility] REPOSITORY TYPE CODE TESTS RESULT OUT OF [...] Normal Absolute Lymph 2.05 Performed By: #### L100.0 #### [facility] [address] [place], [place], [address] URINALYSIS, ROUTINE Collected: 10/23/2017 Status: F Source: [facility] (DIPSTICK) 2:38 PM [facility] REPOSITORY Order Comment: How was Urine Obtained? [...] High LEUK ESTERASE 100 Performed By: #### L400.2010 #### [facility] [address] [facility] [place], [place], [address] COMPREHENSIVE METABOLIC Collected: 10/23/2017 Status: F Source: [facility] PROFIL 2:38 PM [facility] REPOSITORY TYPE CODE TESTS RESULT OUT OF [...] 10 Performed By: #### L500.4050, L501.1400 #### [facility] [place], [address] URIC ACID Collected: 10/23/2017 Status: F Source: [place] 2:38 PM [facility] REPOSITORY TYPE CODE TESTS RESULT OUT OF RANGE REFERENCE UNITS LAB L501.1400 2.6-6.0 mg/dL Normal URIC 4.9 Result Comment: The drugs N-Acetylcysteine and Metamizole may falsely depress this assay. Performed By: #### L500.4050, L501.1400 #### [facility] [address] [place], [address] PROTEIN+CREATININE Collected: Status: F Source: ANA RATIO,URINE 10/23/2017 2:38 PM [facility] REPOSITORY TYPE CODE TESTS RESULT OUT OF RANGE REFERENCE UNITS LAB L501.1200 NO RANGE EST. mg/dL Normal UR CREAT 64.00 LAB L501.1930 <11.9 mg/dL High 103.8 PROTEIN,UR.R AN. LAB L501.1940 0-200 mg/g CRE High PROT:CRE 1622 RATIO Performed By: #### L501.0900 #### [facility] [address] [place], [address] Observed: 09/19/2017 Status: F Source: [place] CULTURE, DEEP WOUND 11:00 AM [facility] REPOSITORY Comments: RIGHT HEEL / NON HEALING [...] <=20 S (NF) indicates non-formulary drug at [facility]. Approval by Infectious Disease Specialist required before non-formulary drugs may be ordered and/or dispensed. Burkholderia cepacia: REACTION Ceftazidime *NF 4 S Ceftriaxone $ 16 I Ciprofloxacin $ <=0.25 S Gentamicin $ <=1 S Imipenem *NF 1 S Levofloxacin $ 1 S Piperacillin/Tazobactam $$ 8 S Tobramycin $ <=1 S Trimethoprim/Sulfametho $ 80 R (NF) indicates non-formulary drug at [facility]. Approval by Infectious Disease Specialist required before non-formulary drugs may be ordered and/or dispensed. Streptococcus agalactiae (B): REACTION Ampicillin $ <=0.25 S Benzylpenicillin NF <=0.06 S Ceftriaxone $ <=0.12 S Clindamycin $$ >=1 R Inducable Clindamycin Resistan - Linezolid $$$$ <=2 S Vancomycin $ 0.5 S (NF) indicates non-formulary drug at [facility]. Approval by Infectious Disease Specialist required before non-formulary drugs may be ordered and/or dispensed. * CLSI guidelines does not recommend testing of cephalosporins. This interpretation is deduced from Beta-lactam/penicillin results. Cult, Anaerobic No anaerobic bacteria isolated. Performed By: #### M100.1500 #### [facility] [address] [facility] [place], [address] DOWNTIME REPORT Observed: 09/18/2017 Status: F Source: [place] 12:26 PM [facility] Medical Records Department [address] [place] [address] [place] [address] Downtime Report MR#: [id number] Acct: [id number] Name: KANDY LAUREN ANN Rep #: [id number] : 1960 57 From: Jonny Patterson PCP: Pia Newton MD Status: REG RCR This patient was seen during an EMR downtime September 01, 2017 - September 08, 2017. This patient may have a combination of paper and electronic documentation or all paper documentation. All documentation is viewable within the e-chart portion of [facility]System for each patient visit. INITAL EVALUATION (1) Observed: 08/27/2017 Status: F Source: [facility]NA - PT 10:07 AM [facility] Physical Therapy [facility] [address] [place] [address] Fax REHABILITATION SERVICES INITIAL EVALUATION MR#: [id number] Acct: [id number] Name: KANDY LAUREN Rep #: [id number] : 1960 57 From: Meghan Pruett PT, [...] mvmt loss: flex - MOD. ext - ZOILA. R SG - ZOILA. L SG - [...] to be FAXED BACK to us at [phone] for Medicare purposes. Please let me know [...] F Source: ANA OFFICE VISIT 4:56 PM [facility] Internal Medicine [address] [place] [address] [place] [address] OFFICE VISIT Date of Service: 08/19/17 MR#: [id number] Acct: [id number] Name: KANDY LAUREN Milind Rep #: [id number] : 1960 Provider: Pia Newton MD Age/Sex: 57/F [place] [facility] [place] Status: Signed Intake Vital Signs08/19/17 Height 5 [...] G62.9 Type 2 diabetes mellitus E11.9 08/19/17 1572 <Electronically signed by Pia Newton MD> Date Pia Newton MD [facility] Signature: Date (if applicable) CC: LOWER EXT ARTERIAL Observed: 08/13/2017 Status: F Source: [facility] 8:07 AM [facility] REPOSITORY [facility] Cardiovascular Services [address] [place] [address] 08/13/17 0806 MR#: [id number] Acct: [id number] Name: KANDY LAUREN Rep #: [id number] : 1960 57 From: Jose Robbins MD Attending Dr: Jose Robbins MD Status: REG CLI Ordering Dr: Date: 08/13/17 Location: [facility] Sex: F C Admitted: Arterial Study [...] Newton MD Date Dictated: 08/13/17805 Date Transcribed: 05/16/18 0806 Procedure Rn: LUI Vizcarra ARTERIAL DUPLEX US, Observed: 08/12/2017 Status: F Source: [place] LIMITED 3:13 PM [facility] REPOSITORY [facility] Cardiovascular Services [address] [place] [address] Art Duplex US Unilat Lower Ext 08/12/17 1302 MR#: [id number] Acct: [id number] Name: KANDY LAUREN Rep #: [id number] : 1960 57 From: Jose Robbins MD Attending Dr: Jose Robbins MD Status: REG CLI Ordering Dr: Jose Robbins MD Date: 08/12/17 Location: [facility] Sex: F C Admitted: Reason For Study: [...] MD Date Dictated: 08/12/17 1302 Date Transcribed: 08/12/173 Procedure Rn: Signed Observed: 08/01/2017 Status: F Source: [place] CULTURE, DEEP WOUND 12:00 PM [facility] REPOSITORY Comments: RIGHT HEEL ULCER Gram Stain [...] <=0.5 S (NF) indicates non-formulary drug at [facility]. Approval by Infectious Disease Specialist required [...] 0.5 S (NF) indicates non-formulary drug at [facility]. Approval by Infectious Disease Specialist required before non-formulary drugs may be ordered and/or dispensed. * CLSI guidelines does not recommend testing of cephalosporins. This interpretation is deduced from Beta-lactam/penicillin results. Cult, Anaerobic No anaerobic bacteria isolated. Performed By: #### M100.1500 #### [facility] [address] 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 A1c around 7.6-7.7. Continue current medications. Referred to the why weight program. Follow-up in 2 months. This note was generated with NemeriX dictation software. It may contain incorrect words, spelling, and punctuation that were not noted in checking the note before signing. 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 mg/dL Normal UR CREAT 48.70 LAB L501.1930 <11.9 mg/dL High 125.5 PROTEIN,UR.R AN. LAB L501.1940 0-200 mg/g CRE High PROT:CRE 2577 RATIO Performed By: #### L501.0900 #### [facility] [address] [place], [address] RENAL PROFILE Collected: 06/09/2017 Status: F Source: ANA 2:47 PM [facility] REPOSITORY TYPE CODE TESTS RESULT OUT OF [...] 22.0 Performed By: #### L500.3600, L501.5200 #### [facility] [address] [place], [address] MAGNESIUM Collected: 06/09/2017 Status: F Source: [place] 2:47 PM [facility] REPOSITORY TYPE CODE TESTS RESULT OUT OF RANGE REFERENCE UNITS LAB L501.5200 1.6-2.6 mg/dL Normal MG 1.9 Result Comment: Please note revised Magnesium reference range effective 2017. Performed By: #### L500.3600, L501.5200 #### [facility] [address] [place], [address] HEMOGLOBIN A1C Collected: 06/09/2017 Status: F Source: [place] 2:47 PM [facility] REPOSITORY TYPE CODE TESTS RESULT OUT OF RANGE REFERENCE UNITS LAB L501.9985 4.2-6.3 % High HGB A1C 7.7 Performed By: #### L501.9985 #### [facility] [address] [place], [address] VITAMIN D,25 HYDROXY Collected: 06/09/2017 Status: F Source: [place] 2:47 PM [facility] REPOSITORY TYPE CODE TESTS RESULT OUT OF REFERENCE UNITS RANGE LAB L506.1000 29.95-100.01 ng/mL Low Vitamin D 7.9 25-OH Result Comment: Vitamin D 25(OH) Status Range Deficiency <20 ng/mL (50nmol/L) Insuffciency 20 - 30 ng/mL (50 - 75 nmol/L) Sufficiency 30 - 100 ng/mL (75 - 250 nmol/L) Toxicity >100 ng/mL (>250 nmol/L) Performed By: #### L506.1000 #### [facility] [address] [place], [address] PTHIN Collected: 06/09/2017 Status: F Source: [place] 2:47 PM [facility] REPOSITORY TYPE CODE TESTS RESULT OUT OF RANGE REFERENCE UNITS LAB L509.1000 18.4-80.1 pg/mL High PTHIN 127.6 Result Comment: Please Note: PTH INTACT METHOD AND REFERENCE RANGE CHANGE Effective 03/19/2017. Performed By: #### L509.1000 #### [facility] [address] [place], [address] INTERNAL MEDICINE Observed: 05/30/2017 Status: F Source: [facility]NA OFFICE VISIT 1:11 PM [facility] REPOSITORY [facility] [address] [place] [address] OFFICE VISIT Date of Service: 05/27/17 MR#: [id number] Acct: [id number] Name: KANDY LAUREN Rep #: [id number] : 1960 Provider: Pia Newton MD Age/Sex: 57/F [place] [facility] [place] Status: Signed Intake Vital Signs05/27/17 Height 5 [...] General: cooperative, no acute distress Orientation: alert HENRI Head: atraumatic, normocephalic Ears: hearing grossly normal [...] Most preferably to be seen by a novelty candy maker. Follow-up in 1 month. 2. Type 2 [...] with results. This note was generated with BitWineation software. It may contain incorrect words, spelling, [...] 05/29/2017 Status: F Source: [facility]NA 8:55 AM [facility] REPOSITORY TYPE CODE TESTS RESULT OUT OF [...] VLDL Performed By: #### L500.4100, L502.0250 #### [facility] [address] [place], [address] MICROALB:CREAT Collected: 05/29/2017 Status: F Source: [place] RATIO,RANDOM UR 8:55 AM [facility] REPOSITORY TYPE CODE TESTS RESULT OUT OF RANGE REFERENCE UNITS LAB L501.1200 NO RANGE EST. mg/dL Normal UR CREAT 52.50 LAB L502.0500 NO RANGE EST. mg/L Normal 958.0 MICROALBUMIN ,UR LAB L502.0600 <30 mg/g CRE mg/g CRE High 1824.8 MALB:CREAT Performed By: #### L500.4100, L502.0250 #### [facility] [address] [place], [address] HEMOGLOBIN A1C Collected: 05/29/2017 Status: F Source: [place] 8:55 AM [facility] REPOSITORY TYPE CODE TESTS RESULT OUT OF RANGE REFERENCE UNITS LAB L501.9985 4.2-6.3 % High HGB A1C 7.6 Performed By: #### L501.9985 #### [facility] [address] [facility] [place], [address] CBC W/DIFF, AUTOMATED Collected: 05/06/2017 Status: F Source: [place] 2:18 PM [facility] REPOSITORY TYPE CODE TESTS RESULT OUT OF [...] Lymph 2.31 Performed By: #### L100.0100 #### [facility] [address] [place], [address] COMPREHENSIVE METABOLIC Collected: 05/06/2017 Status: F Source: [facility] 2:18 PM [facility] REPOSITORY TYPE CODE TESTS RESULT OUT OF [...] 11 Performed By: #### L500.4050, L501.1400 #### [facility] [address] [place], [address] URIC ACID Collected: 05/06/2017 Status: F Source: [place] 2:18 PM [facility] REPOSITORY TYPE CODE TESTS RESULT OUT OF RANGE REFERENCE UNITS LAB L501.1400 2.6-6.0 mg/dL Normal URIC 5.3 Result Comment: The drugs N-Acetylcysteine and Metamizole may falsely depress this assay. Performed By: #### L500.4050, L501.1400 #### [facility] [address] [place], [place], [address] ALLERGIES ALLERGIES DATE TYPE / CODE NAME / CODE REACTION SEVERITY SOURCE 03/09/2018 Drug aspirin/F006 Hives Unknown [facility] Allergy/4160 [id number](RXNOR Hospital 74369(SNOMED M) Repository CT) 03/09/2018 Drug latex/E17173 Hives Unknown [facility] Allergy/4160 8921(RXNORM) Hospital 53417(SNOMED Repository CT) 03/09/2018 Drug naproxen/F00 KIDNEY DISEASE SV [facility] Allergy/4160 [id number](RXNO Hospital 49892(SNOMED RM) Repository CT) 03/09/2018 Drug Penicillins/ Hives Unknown [facility] Allergy/4160 [id number](R Hospital 64068(SNOMED XNORM) Repository CT) ENCOUNTERS ENCOUNTERS ADMIT/DISCHARGE ACCOUNT NUMBER ADMITTING ENCOUNTER LOCATION SOURCE CLASS 04/02/2018/04/02/19 [id number] Ambulatory [address] ding:SDCRoo Repository : AC05 03/10/2018/03/10/20 [id number] Ambulatory [address] [facility] Rep[facility] : AC02 03/06/2018 [id number] Ambulatory [facility] Repository 03/04/2018 [id number] Ambulatory BMSBuilding: [facility] Repository 03/04/2018/03/04/20 [id number] Ambulatory [address] ding:ENRoom: Repository AC-TBA 02/26/2018 [id number] Ambulatory [facility] ding:EN Repository 02/26/2018/02/27/20 [id number] Ambulatory [address] ding:ENRoom: Repository AC05 02/19/2018 [id number] Ambulatory BMSBuilding: [facility] Repository 02/19/2018/02/20/20 [id number] Ambulatory [address] ding:CK2XWWM Repository oom: MS319 02/17/2018 [id number] Ambulatory [facility] ding:[facility] Repository 02/08/2018 [id number] Ambulatory BMSBuilding: [place] [facility] Repository 02/05/2018/02/06/20 [id number] Ambulatory [address] ding:SDCRoom Repository : AC16 02/02/2018 [id number] Ambulatory [facility] ding:MEDOUTP Repository 01/29/2018 [id number] Ambulatory [facility] ding:SD Repository 01/21/2018 [id number] Mikhail, G[place] Ambulatory BMSBuilding: [place] [facility] Repository 01/21/2018 [id number] Mikhail, Gerson Ambulatory BMSBuilding: [place] [facility] Repository 01/21/2018 [id number] Mikhail, Gerson Ambulatory BMSBuilding: [place] [facility] Repository 01/21/2018/04/09/19 [id number] Mikhail, [place] Inpatient [place] ding:TCURoom Repository : CRP49Hot: 1 01/17/2018 [id number] Ambulatory BMSBuilding: [facility] Repository 01/16/2018 [id number] Agyepong, Ambulatory BMSBuilding: Ana Darwin [facility] Repository 01/16/2018 [id number] Agyepong, Ambulatory BMSBuilding: Ana Darwin [facility] Repository 01/16/2018 [id number] Agyepong, Ambulatory BMSBuilding: Ana Darwin [facility] Repository 01/16/2018 [id number] Agyepong, Ambulatory BMSBuilding: Ana Darwin [facility] Repository 01/16/2018/01/22/20 [id number] Agyepong, Inpatient Ana [address] ding:PCURoom Repository : TMU551Twq: 1 01/16/2018/01/22/20 [id number] Ambulatory BMSBuilding: Ana [address] [place] [address] Repository 01/16/2018 [id number] Agyepong, Ambulatory BMSBuilding: Ana Darwin [facility] Repository 01/16/2018 [id number] Agyepong, Ambulatory BMSBuilding: Ana Granados [facility] Repository 01/13/2018/01/15/20 [id number] DAVEY SKINNER, Inpatient ABuilding:AYANNA GARCIA Encounter 5Room: Health 5558Bed: A [facility] Repository 01/13/2018 [id number] Ambulatory ABuilding:AYANNA [facility] Repository 01/13/2018/01/14/20 [id number] Emergency [address] ding:ED Repository 01/01/2018/01/02/20 [id number] Ambulatory BMSBuilding: Ana 18 [facility]MS.[facility] Repository 12/25/2017 [id number] Ambulatory [facility] ding:[facility] Repository 12/15/2017/12/16/19 [id number] Ambulatory ABuilding:CAMERON Mackenzie URoom: Health 0102Bed: A [facility] Repository 12/09/2017 [id number] Ambulatory [facility] ding: Repository 12/02/2017/12/10/19 [id number] MICAH SKINNER., Inpatient ABuilding:ME Juma Mackenzie MD. YING Holm Encounter 5SRoom: Health 5677Bed: A [facility] Repository 11/18/2017/12/03/19 [id number] MICAH SKINNER., Inpatient BBuilding:MS Juma Mackenzie MD. YING Holm Encounter URRoom: Health 0235Bed: S [facility] Repository 11/05/2017/11/19/19 [id number] LUIS SKINNER, Inpatient ABuilding:AYANNA Escoto Encounter 5Room: Health 5514Bed: A [facility] Repository 11/05/2017/11/06/19 [id number] Emergency [address] ding:ED Repository 10/31/2017/11/29/19 [id number] Ambulatory [address] ding:WC Repository 10/24/2017/10/29/19 [id number] Ambulatory [address] ding: Repository 10/23/2017 [id number] Ambulatory Floyd Floyd [facility] ding:LAB Repository 09/26/2017/09/28/19 [id number] Ambulatory Ana Ana 18 [facility] ding:WC Repository 09/01/2017/09/02/19 [id number] Ambulatory Ana Ana 18 [facility] ding:PT Repository 08/19/2017/08/20/19 [id number] Ambulatory BMSBuilding: Ana 18 [facility] Repository 08/15/2017/08/29/19 [id number] Ambulatory Ana Ana 18 [facility] ding:WC Repository 08/12/2017 [id number] Ambulatory Ana Ana [facility] ding:CVS Repository 07/22/2017/07/29/19 [id number] Ambulatory Ana Ana 18 [facility] ding:WC Repository 06/24/2017/06/29/19 [id number] Ambulatory Floyd Floyd 18 [facility] ding:WC Repository 06/24/2017/06/25/19 [id number] Ambulatory BMSBuilding: Ana 18 [facility] Repository 06/10/2017 [id number] Ambulatory Ana Ana [facility] ding:LABSPEC Repository 06/09/2017 [id number] [facility]ulatory [facility] ding[facility] Repository 05/29/2017 [id number] Ambulatory Ana Floyd [facility] ding:LAB Repository 05/27/2017/05/27/19 [id number] Ambulatory BMSBuilding: Ana 18 [facility] Repository 05/11/2017 [id number] Ambulatory Ana Floyd [facility] ding:WC Repository 05/06/2017 [id number] Ambulatory Ana Ana [facility] ding:MTLAB Repository 04/22/2017/04/30/19 [id number] Ambulatory Ana Floyd 18 [facility] ding:WC Repository PAYERS PAYERS ENCOUNTER GUARANTOR PAYER SUBSCRIBER SOURCE 04/02/2018 JUAN Primary JUAN Ana [id number] Insurance:MEDICARE TOMASSETTIDOB: Community ELISE DRLOT PART A [facility] [id number] Number: Repository [address]Bnb: 330 [id number] [phone] () Date:2018-03-19 04/02/2018 Secondary NOT GIVENUNK Ana Insurance:SELF PAY [facility] Number: Effective Repository Date:2018-03-19 03/10/2018 JUAN Primary JUAN Floyd [id number] Insurance:MEDICARE TOMASSETTIDOB: Community ELISE DRLOT PART A [facility] [id number] [place] Number: Repository [address]Soz: 330 [id number] [phone] () Date:2018-03-09 03/10/2018 Secondary NOT GIVENUNK Ana Insurance:SELF PAY [facility] Number: Effective Repository Date:2018-03-09 03/06/2018 JUAN Primary JUAN Floyd [id number] Insurance:MEDICARE TOMASSETTIDOB: Community ELISE DRLOT PART A [facility] [id number] Number: Repository [address]Emf: 330 [id number] [phone] () Date:2018-03-06 03/06/2018 Secondary NOT GIVENUNK Floyd Insurance:SELF PAY [facility] Number: Effective Repository Date:2018-03-06 03/04/2018 JUAN Primary JUAN Ana [id number] Insurance:MEDICARE TOMASSETTIDOB: Community ELISE DRLOT PART A [facility] [id number] Number: Repository [address]Gwn: 330 [id number] [phone] () Date:2018-02-26 03/04/2018 Secondary NOT GIVENUNK Ana Insurance:SELF PAY [facility] Number: Effective Repository Date:2018-03-04 03/04/2018 JUAN Primary JUAN Ana [id number] Insurance:MEDICARE TOMASSETTIDOB: Community ELISE DRLOT PART A [facility] [id number] [place] Number: Repository [address]Jga: 330 [id number] [phone] () Date:2018-02-26 03/04/2018 Secondary JUAN Floyd Insurance:MEDICAIDPol TOMASSETTIDOB: [facility] icy Number: Effective [id number] Hospital Date:2018-02-26 Repository 03/04/2018 Tertiary NOT GIVENUNK Floyd Insurance:SELF PAY [facility] Number: Effective Repository Date:2018-02-26 02/26/2018 JUAN Primary JUAN Ana [id number] Insurance:MEDICARE TOMASSETTIDOB: Community ELISE DRLOT PART A [facility] [id number] [place] Number: Repository [address]Ssz: 330 [id number] [phone] () Date:2018-02-25 02/26/2018 Secondary NOT GIVENUNK Floyd Insurance:SELF PAY [facility] Number: Effective Repository Date:2018-02-25 02/26/2018 JUAN Primary JUAN Ana [id number] Insurance:MEDICARE TOMASSETTIDOB: Community ELISE DRLOT PART A [facility] [id number] [place] Number: Repository [address]Xxd: 330 [id number] [phone] () Date:2018-02-18 02/26/2018 Secondary JUAN Floyd Insurance:MEDICAIDPol TOMASSETTIDOB: Community icy Number: Effective [id number] Hospital Date:2018-02-18 Repository 02/26/2018 Tertiary NOT GIVENUNK Ana Insurance:SELF PAY [facility] Number: Effective Repository Date:2018-02-18 02/19/2018 JUAN Primary JUAN Floyd [id number] Insurance:MEDICARE TOMASSETTIDOB: Community ELISE DRLOT PART A [facility] [id number] [place] Number: Repository [address]Ivd: 330 [id number] [phone] () Date:2018-02-19 02/19/2018 Secondary NOT GIVENUNK Floyd Insurance:SELF PAY [facility] Number: Effective Repository Date:2018-02-19 02/19/2018 JUAN Primary JUAN Ana [id number] Insurance:MEDICARE TOMASSETTIDOB: [facility] ELISE MYERS PART A [facility] [id number], [place] Number: Repository [address]Hro: 330 [id number] [phone] () Date:2018-02-19 02/19/2018 Secondary JUAN Ana Insurance:MEDICAIDPol TOMASSETTIDOB: [facility] icy Number: Effective [id number] Hospital Date:2018-02-19 Repository 02/19/2018 Tertiary NOT GIVENUNK Ana Insurance:SELF PAY [facility] Number: Effective Repository Date:2018-02-19 02/17/2018 JUAN Primary JUAN Ana [id number] Insurance:MEDICARE TOMASSETTIDOB: [facility] ELISE MYERS PART A [facility] [id number], [place] Number: Repository [address]Qwd: 330 [id number] [phone] () Date:2018-02-17 02/17/2018 Secondary JUAN Ana Insurance:MEDICAIDPol TOMASSETTIDOB: [facility] icy Number: Effective [id number] Hospital Date:2018-02-17 Repository 02/17/2018 Tertiary NOT GIVENUNK Ana Insurance:SELF PAY [facility] Number: Effective Repository Date:2018-02-17 02/08/2018 JUAN Primary JUAN Floyd [id number] Insurance:MEDICARE TOMASSETTIDOB: [facility] ELISE MYERS PART A [facility] [id number] [place] Number: Repository [address]Bkb: 330 [id number] [phone] () Date:2018-02-08 02/08/2018 Secondary JUAN Floyd Insurance:MEDICAIDPol TOMASSETTIDOB: [facility] icy Number: Effective [id number] Hospital Date:2018-02-08 Repository 02/08/2018 Tertiary NOT GIVENUNK Floyd Insurance:SELF PAY [facility] Number: Effective Repository Date:2018-02-08 02/05/2018 JUAN Primary JUAN Floyd [id number] Insurance:MEDICARE TOMASSETTIDOB: Community ELISE MYERS PART A [facility] [id number] Number: Repository [address]Ghy: 330 [id number] [phone] () Date:2018-01-30 02/05/2018 Secondary JUAN Ana Insurance:MEDICAIDPol TOMASSETTIDOB: [facility] ic Number: Effective [id number] Hospital Date:2018-01-30 Repository 02/05/2018 Tertiary NOT GIVENUNK Ana Insurance:SELF PAY [facility] Number: Effective Repository Date:2018-01-30 02/02/2018 JUAN Primary JUAN Floyd [id number] Insurance:MEDICARE TOMASSETTIDOB: [facility] ELISE MYERS PART A [facility] [id number] [place] Number: Repository [address]Buz: 330 [id number] [phone] () Date:2018-02-02 02/02/2018 Secondary JUAN Ana Insurance:MEDICAIDPol TOMASSETTIDOB: [facility] Number: [id number] Hospital [id number] Repository Date:2018-02-02 02/02/2018 Tertiary NOT GIVENUNK Floyd Insurance:SELF PAY [facility] Number: Effective Repository Date:2018-02-02 01/29/2018 JUAN Primary JUAN Floyd [id number] Insurance:MEDICARE TOMASSETTIDOB: Community ELISE MYERS PART A [facility] [id number] Number: Repository [address]Ngs: 330 [id number] [phone] () Date:2018-01-27 01/29/2018 Secondary JUAN Floyd Insurance:MEDICAIDPol TOMASSETTIDOB: [facility] icy Number: Effective [id number] Hospital Date:2018-01-27 Repository 01/29/2018 Tertiary NOT GIVENUNK Ana Insurance:SELF PAY [facility] Number: Effective Repository Date:2018-01-27 01/21/2018 JUAN Primary JUAN Ana [id number] Insurance:MEDICARE TOMASSETTIDOB: [facility] ELISE MYERS PART A [facility] [id number] Number: Repository [address]Gey: 330 [id number] [phone] () Date:2018-01-21 01/21/2018 Secondary NOT GIVENUNK Ana Insurance:SELF PAY [facility] Number: Effective Repository Date:2018-01-21 01/21/2018 JUAN Primary JUAN Floyd [id number] Insurance:MEDICARE TOMASSETTIDOB: [facility] [id number] [place] Number: Repository [address]Rfk: 330 [id number] [phone] () Date:2018-01-21 01/21/2018 Secondary NOT GIVENUNK Floyd Insurance:SELF PAY [facility] Number: Effective Repository Date:2018-01-21 01/21/2018 JUAN Primary JUAN Floyd [id number] Insurance:MEDICARE TOMASSETTIDOB: [facility] A [facility] [id number] Number: Repository [address]Puh: 330 [id number] [phone] () Date:2018-01-21 01/21/2018 Secondary NOT GIVENUNK Ana Insurance:SELF PAY [facility] Number: Effective Repository Date:2018-01-21 01/21/2018 JUAN Primary JUAN Ana [id number] Insurance:MEDICARE TOMASSETTIDOB: [facility] ELISE LUCIA PART A [facility] [id number] [place] Number: Repository [address]Aqj: 330 [id number] [phone] (HP) Date:2018-01-21 01/21/2018 Secondary NOT GIVENUNK Ana Insurance:SELF PAY [facility] Number: Effective Repository Date:2018-01-21 01/17/2018 JUAN Primary JUAN Floyd [id number] Insurance:MEDICARE TOMASSETTIDOB: Community ELISE DRLOT PART A [facility] [id number] Number: Repository [address]Wld: 330 [id number] [phone] () Date:2018-01-16 01/17/2018 Secondary JUAN Ana Insurance:MEDICAIDPol TOMASSETTIDOB: [facility] icy Number: [id number] Hospital [id number] Repository Date:2018-01-16 01/17/2018 Tertiary NOT GIVENUNK Ana Insurance:SELF PAY [facility] Number: Effective Repository Date:2018-01-17 01/16/2018 JUAN Primary JUAN Floyd [id number] Insurance:MEDICARE TOMASSETTIDOB: Community ELISE DRAMRIT PART A [facility] [id number] [place] Number: Repository [address]Lif: 330 [id number] [phone] () Date:2018-01-16 01/16/2018 Secondary JUAN Floyd Insurance:MEDICAIDPol TOMASSETTIDOB: [facility] ic Number: [id number] Hospital [id number] Repository Date:2018-01-16 01/16/2018 Tertiary NOT GIVENUNK Floyd Insurance:SELF PAY [facility] Number: Effective Repository Date:2018-01-16 01/16/2018 JUAN Primary JUAN Ana [id number] Insurance:MEDICARE TOMASSETTIDOB: Community LEISE DRLOT PART A [facility] [id number] Number: Repository [address]Gfk: 330 [id number] [phone] () Date:2018-01-16 01/16/2018 Secondary JUAN Floyd Insurance:MEDICAIDPol TOMASSETTIDOB: [facility] icy Number: [id number] Hospital [id number] Repository Date:2018-01-16 01/16/2018 Tertiary NOT GIVENUNK Ana Insurance:SELF PAY [facility] Number: Effective Repository Date:2018-01-16 01/16/2018 JUAN Primary JUAN Ana [id number] Insurance:MEDICARE TOMASSETTIDOB: Community ELISE LUCIA PART A [facility] [id number] Number: Repository [address]Tgb: 330 [id number] [phone] () Date:2018-01-16 01/16/2018 Secondary JUAN Floyd Insurance:MEDICAIDPol TOMASSETTIDOB: [facility] icy Number: [id number] Hospital [id number] Repository Date:2018-01-16 01/16/2018 Tertiary NOT GIVENUNK Floyd Insurance:SELF PAY [facility] Number: Effective Repository Date:2018-01-16 01/16/2018 JUAN Primary JUAN Floyd [id number] Insurance:MEDICARE TOMASSETTIDOB: Community ELISE MYERS PART A [facility] [id number] [place] Number: Repository [address]Cla: 330 [id number] [phone] () Date:2018-01-16 01/16/2018 Secondary JUAN Ana Insurance:MEDICAIDPol TOMASSETTIDOB: [facility] ic Number: [id number] Hospital [id number] Repository Date:2018-01-16 01/16/2018 Tertiary NOT GIVENUNK Floyd Insurance:SELF PAY [facility] Number: Effective Repository Date:2018-01-16 01/16/2018 JUAN Primary JUAN Floyd [id number] Insurance:MEDICARE TOMASSETTIDOB: Community ELISE MYERS PART A [facility] [id number] [place] Number: Repository [address]Cyo: 330 [id number] [phone] () Date:2018-01-16 01/16/2018 Secondary JUAN Floyd Insurance:MEDICAIDPol TOMASSETTIDOB: [facility] icy Number: [id number] Hospital [id number] Repository Date:2018-01-16 01/16/2018 Tertiary NOT GIVENUNK Ana Insurance:SELF PAY [facility] Number: Effective Repository Date:2018-01-16 01/16/2018 JUAN Primary JUAN Floyd [id number] Insurance:MEDICARE TOMASSETTIDOB: Community ELISE MYERS PART A [facility] [id number] Number: Repository [address]Opy: 330 [id number] [phone] (HP) Date:2018-01-16 01/16/2018 Secondary JUAN Ana Insurance:MEDICAIDPol TOMASSETTIDOB: [facility] ic Number: [id number] Hospital [id number] Repository Date:2018-01-16 01/16/2018 Tertiary NOT GIVENUNK Floyd Insurance:SELF PAY [facility] Number: Effective Repository Date:2018-01-16 01/16/2018 JUAN Primary JUAN Floyd [id number] Insurance:MEDICARE TOMASSETTIDOB: [facility] ELISE MYERS PART A [facility] [id number] Number: Repository [address]Xyk: 330 [id number] [phone] (HP) Date:2018-01-16 01/16/2018 Secondary JUAN Ana Insurance:MEDICAIDPol TOMASSETTIDOB: [facility] Number: [id number] Hospital [id number] Repository Date:2018-01-16 01/16/2018 Tertiary NOT GIVENUNK Ana Insurance:SELF PAY [facility] Number: Effective Repository Date:2018-01-16 01/16/2018 JUAN Primary JUAN Floyd [id number] Insurance:MEDICARE TOMASSETTIDOB: Community ELISE MYERS PART A [facility] [id number] Number: Repository [address]Vap: 330 [id number] [phone] () Date:2018-01-16 01/16/2018 Secondary JUAN Floyd Insurance:MEDICAIDPol TOMASSETTIDOB: [facility] Number: [id number] Hospital [id number] Repository Date:2018-01-16 01/16/2018 Tertiary NOT GIVENUNK Ana Insurance:SELF PAY [facility] Number: Effective Repository Date:2018-01-16 01/13/2018 [facility]:MEDICARE TOMASSETTIDOB: [facility] PART APolicy Number: [id number] Repository [id number], [place] Date:2018-01-13[place], [place] [address]Oem: (330) [id number] [address]Frr: (HP) Name:MMail Code [phone] [address] (HP)Tel: (000) 093808Qfmxzaix, [place] 000-0000 ([place]) [address]WZ: 01/13/2018 Secondary [facility] Insurance:MEDICARE TOMASSETTIDOB: Foundation PART BPolicy Number: [id number] Repository [id number] 0 [address] Date:2018-01-13[place], [place] [id number] [address]Pbw: (330) Name:[facility] [phone] Administrators LLCPO (HP)Tel: (000) [address]Pvsmmfesj, 000-0000 (WP) [place] [address]TJ: 01/13/2018 [facility]:MEDICARE TOMASSETTIDOB: [facility] PART APolicy Number: [id number] Repository [id number] [address], [place] Date:2016-10-12[place], [place] [address]Kov: ([id number] 396[address]Odk: (HP) Name:MMail Code [phone] [address] (HP)Tel: (000) [phone], [place] 000-0000 ([place]) [address]NE: 01/13/2018 Secondary [facility] Insurance:MEDICARE TOMASSETTIDOB: Foundation PART olicy Number: [id number] Repository [id number] 0 [address] Date:2018-01-13 - [address] [place] [address] [id number] 708[address]Cob: (330) Name:[facility] [id number] Administrators LLCPO ()Tel: (000) [address]Kjtmsuqfe, 000-0000 () [place] [address]PM: 01/13/2018 JUAN Primary JUAN Ana [id number] Insurance:MEDICARE TOMASSETTIDOB: Community ELISE MYERS PART A [facility] [id number] Number: Repository [address]Fhp: 330 [id number] [phone] () Date:2018-01-13 01/13/2018 Secondary JUAN Floyd Insurance:MEDICAIDPol TOMASSETTIDOB: [facility] Number: Effective [id number] Hospital Date:2018-01-13 Repository 01/13/2018 Tertiary NOT GIVENUNK Ana Insurance:SELF PAY [facility] Number: Effective Repository Date:2018-01-13 01/01/2018 JUAN Primary JUAN Ana [id number] Insurance:MEDICARE TOMASSETTIDOB: Community ELISE DRAMRIT PART A [facility] [id number] Number: Repository [address]Nkl: 330 [id number] [phone] () Date:2017-12-31 01/01/2018 Secondary NOT GIVENUNK Ana Insurance:SELF PAY [facility] Number: Effective Repository Date:2018-01-01 12/25/2017 JUAN Primary JUAN Ana [id number] Insurance:MEDICARE TOMASSETTIDOB: Community ELISE DRAMRIT PART A [facility] [id number] Number: Repository [address]Icf: 330 [id number] [phone] () Date:2017-12-24 12/25/2017 Secondary NOT GIVENUNK Floyd Insurance:SELF PAY Community [facility] Number: Effective Repository Date:2017-12-24 12/15/2017 [facility] TOMASSETTIDOB: Insurance:MEDICARE TOMASSETTIDOB: [facility] PART BPolicy Number: [id number] Repository [address] [id number] 0 [address] [place] [address], [place] Date:2017-12-[address] [place] [address]Dog: (360) [phone] [phone]: () Name:[facility] [phone] Administrators LLCPO ()Tel: (000) [address] [address]Edittcmei, 000-0000 (WP) [place] [address]IS: 12/09/2017 JUAN Primary JUAN Ana [id number] Insurance:MEDICARE TOMASSETTIDOB: [facility] [id number] Number: Repository [address]Mim: 330 [id number] [phone] () Date:2017-06-10 12/09/2017 Secondary NOT GIVENUNK Ana Insurance:SELF PAY [facility] Number: Effective Repository Date:2017-11-29 12/02/2017 [facility] TOMASSETTIDOB: Insurance:MEDICARE TOMASSETTIDOB: [facility] PART APolicy Number: [id number] Repository [address] [id number] 0 [address], [place] Date:2017-12-[address] [place] [address]Rgc: (050) [id number] 235[address]Seg: () Name:MMail Code [phone] [address] (HP)Tel: (000) 125[address]Ohcqvkth, [place] 000-0000 ([place]) [address]CF: 12/02/2017 Secondary [facility] Insurance:MEDICARE TOMASSETTIDOB: [facility] PART BPolicy Number: [id number] Repository [id number] [address] Date:2017-12-02[place], [place] [id number] 418[address]Txl: (330) Name:[facility] [phone] Administrators LLCPO (HP)Tel: (000) [address] [address]Cligqwnpu, 000-0000 (WP) [place] [address]OE: 11/18/2017 [facility]:MEDICARE TOMASSETTIDOB: [facility] PART APolicy Number: [id number] Repository [id number] [address] [place], [place] Date:2017-11-18[place], [place] [address]Okl: (330) [id number] [address]Rxx: () [facility] [phone] ()Tel: (000) [phone], [place] 000-0000 (WP) [address]IU: 11/18/2017 [facility] Insurance:MEDICARE TOMASSETTIDOB: [facility] PART BPolicy Number: [id number] Repository [id number] [address] Date:2017-11-18[place], [place] [id number] [address]Epz: (330) Name:[facility] [phone] Administrators LLCPO (HP)Tel: (000) [address] [address]Ckuvmufyg, 000-0000 (WP) [place] [address]OT: 11/05/2017 [facility] Insurance:[facility]ARE [facility]: [facility] PART APolicy Number: [id number] Repository [id number] [address], [place] Date:2017-11-05[place], [place] [address]Mqu: (330) [id number] [address]Ulq: () Name:[facility] [phone] [address] ()Tel: (000) [phone], [place] 000-0000 ([place]) [address]BY: 11/05/2017 Secondary [facility] Insurance:MEDICARE TOMASSETTIDOB: Foundation PART [facility] Number: [id number] Repository [id number] Date:2017-11-05[place], [place] [id number] [id number]: ([phone] Name:[facility] [phone] Administrators LLCPO ()Tel: (000) [address] [address]Laiozewqs, [phone] (WP) [place] [address]UJ: 11/05/2017 JUAN Primary JUAN Floyd [id number] Insurance:MEDICARE TOMASSETTIDOB: Community ELISE DRLOT PART A [facility] [id number] Number: Repository [address]Pmj: 330 [id number] [phone] () Date:2017-11-05 11/05/2017 Secondary NOT GIVENUNK Ana Insurance:SELF PAY [facility] Number: Effective Repository Date:2017-11-05 10/31/2017 JUAN Primary JUAN Floyd [id number] Insurance:MEDICARE TOMASSETTIDOB: Community ELISE DRLOT PART A [facility] [id number] Number: Repository [id number]: 330 [id number] [phone] () Date:2017-06-10 10/31/2017 Secondary NOT GIVENUNK Ana Insurance:SELF PAY [facility] Number: Effective Repository Date:2017-10-29 10/24/2017 JUAN Primary JUAN Ana [id number] Insurance:MEDICARE TOMASSETTIDOB: Community ELISE DRLOT PART A [facility] [id number] Number: Repository [address]Kon: 330 [id number] [phone] () Date:2017-06-10 10/24/2017 Secondary NOT GIVENUNK Floyd Insurance:SELF PAY [facility] Number: Effective Repository Date:2017-09-28 10/23/2017 JUAN Primary JUAN Floyd [id number] Insurance:MEDICARE TOMASSETTIDOB: Community ELISE DRLOT PART A [facility] [id number] Number: Repository [address]Oyy: 330 [id number] [phone] () Date:2017-10-23 10/23/2017 Secondary NOT GIVENUNK Ana Insurance:SELF PAY [facility] Number: Effective Repository Date:2017-10-23 09/26/2017 JUAN Primary JUAN Floyd [id number] Insurance:MEDICARE TOMASSETTIDOB: Community ELISE DRLOT PART A [facility] [id number] [place] Number: Repository [address]Hzh: 330 [id number] [phone] () Date:2017-06-10 09/26/2017 Secondary NOT GIVENUNK Floyd Insurance:SELF PAY [facility] Number: Effective Repository Date:2017-08-29 09/01/2017 JUAN Primary JUAN Floyd [id number] Insurance:MEDICARE TOMASSETTIDOB: Community ELISE DRLOT PART A [facility] [id number] Number: Repository [address]Vfk: 330 [id number] [phone] () Date:2006-09-28 09/01/2017 Secondary NOT GIVENUNK Ana Insurance:SELF PAY [facility] Number: Effective Repository Date:2017-08-26 08/19/2017 KANDY JUAN A Primary KANDY JUAN A Ana [id number] Insurance:MEDICARE TOMASSETTIDOB: Community ELISE DRLOT PART A [facility] [id number] [place] Number: Repository [address]Cxx: 330 [id number] [phone] () Date:2017-06-24 08/19/2017 Secondary NOT GIVENUNK Ana Insurance:SELF PAY [facility] Number: Effective Repository Date:2017-08-18 08/15/2017 KANDY JUAN A Primary KANDY JUAN A Ana [id number] Insurance:MEDICARE TOMASSETTIDOB: Community ELISE DRLOT PART A [facility] [id number] Number: Repository [address]Yep: 330 [id number] [phone] () Date:2017-06-10 08/15/2017 Secondary NOT GIVENUNK Floyd Insurance:SELF PAY [facility] Number: Effective Repository Date:2017-07-29 08/12/2017 KANDY A Primary KANDY A Floyd [id number] Insurance:MEDICARE TOMASSETTIDOB: Community ELISE DRLOT PART A [facility] [id number] [place] Number: Repository [address]Whe: 330 [id number] [phone] () Date:2017-08-04 08/12/2017 Secondary NOT GIVENUNK Ana Insurance:SELF PAY [facility] Number: Effective Repository Date:2017-08-04 07/22/2017 KANDY A Primary KANDY A Ana [id number] Insurance:MEDICARE TOMASSETTIDOB: Community ELISE DRLOT PART A [facility] [id number] [place] Number: Repository [address]Jgb: 330 [id number] [phone] () Date:2017-06-10 07/22/2017 Secondary NOT GIVENUNK Ana Insurance:SELF PAY [facility] Number: Effective Repository Date:2017-06-29 06/24/2017 KANDY A Primary KANDY A Ana [id number] Insurance:MEDICARE TOMASSETTIDOB: Community ELISE DRLOT PART A [facility] [id number] Number: Repository [address]Jig: 330 [id number] [phone] () Date:2017-06-10 06/24/2017 Secondary NOT GIVENUNK Floyd Insurance:SELF PAY [facility] Number: Effective Repository Date:2017-06-10 06/24/2017 KANDY A Primary KANDY A Floyd [id number] Insurance:MEDICARE TOMASSETTIDOB: Community ELISE DRLOT PART A [facility] [id number] [address] Number: Repository [address]Dex: 330 [id number] [phone] () Date:2017-05-27 06/24/2017 Secondary NOT GIVENUNK Floyd Insurance:SELF PAY [facility] Number: Effective Repository Date:2017-06-24 06/10/2017 KANDY A Primary KANDY A Floyd [id number] Insurance:MEDICARE TOMASSETTIDOB: [facility] ELISE DRLOT PART A [facility] [id number] Number: Repository [address]Ixf: 330 [id number] [phone] () Date:2017-06-10 06/10/2017 Secondary NOT GIVENUNK Floyd Insurance:SELF PAY [facility] Number: Effective Repository Date:2017-06-10 06/09/2017 KANDY A Primary KANDY A Ana [id number] Insurance:MEDICARE TOMASSETTIDOB: Community ELISE DRLOT PART A [facility] [id number] Number: Repository [id number]: 330 [id number] [phone] () Date:2017-06-09 06/09/2017 Secondary NOT GIVENUNK Ana Insurance:SELF PAY [facility] Number: Effective Repository Date:2017-06-09 05/29/2017 KANDY A Primary KANDY A Ana [id number] Insurance:MEDICARE TOMASSETTIDOB: [facility] ELISE DRLOT PART A [facility] [id number] Number: Repository [address]Bhl: 330 [id number] [phone] () Date:2017-05-29 05/29/2017 Secondary NOT GIVENUNK Floyd Insurance:SELF PAY [facility] Number: Effective Repository Date:2017-05-29 05/27/2017 KANDY A Primary KANDY A Ana [id number] Insurance:MEDICARE TOMASSETTIDOB: Community ELISE DRAMRIT PART A [facility] [id number] Number: Repository [address]Gxn: 330 [id number] [phone] () Date:2017-03-01 05/27/2017 Secondary NOT GIVENUNK Ana Insurance:SELF PAY [facility] Number: Effective Repository Date:2017-03-01 05/11/2017 Kandy A Primary Kandy A Ana [id number] Insurance:MEDICARE TomassettiDOB: Community Elise DrLot PART A [facility] [id number] Number: Repository [address]Qej: 330 [id number] [phone] () Date:2007-07-30 05/11/2017 Secondary NOT GIVENUNK Ana Insurance:SELF PAY [facility] Number: Effective Repository Date:2017-05-01 05/06/2017 Kandy A Primary Kandy A Ana [id number] Insurance:MEDICARE TomassettiDOB: Community Elise Myers PART A [facility] [id number] Number: Repository [id number]: 330 [id number] [phone] () Date:2017-05-06 05/06/2017 Secondary NOT GIVENUNK Floyd Insurance:SELF PAY [facility] Number: Effective Repository Date:2017-05-06 04/22/2017 Kandy A Primary Kandy A Ana [id number] Insurance:MEDICARE TomassettiDOB: Community [place] DrLot PART A [facility] [id number] Number: Repository [address]Cpa: 330 [id number] [phone] () Date:2007-07-30 04/22/2017 Secondary NOT GIVENUNK Ana Insurance:SELF PAY [facility] Number: Effective Repository Date:2017-03-31
== END 2018-03-10 15:05 | disposition skilled nursing facility (03) ==
LOC: SDC 05:39 → AC 05:39
PROVIDERS: Anesthesiology; Family Provider Internal Medicine; PCP Internal Medicine; Referring Provider Podiatrist Foot & Ankle Surgery; Visit Provider Podiatrist Foot & Ankle Surgery
PROC: (CPT 20693; principal; 2018-03-10 07:00)
DX: M24.472 Recurrent dislocation, left ankle (principal); S82.892B Other fracture of left lower leg, initial encounter for open fracture type I or II; X58.XXXA Exposure to other specified factors, initial encounter; N18.3 Chronic kidney disease, stage 3 (moderate); E11.22 Type 2 diabetes mellitus with diabetic chronic kidney disease; E78.00 Pure hypercholesterolemia, unspecified; I12.9 Hypertensive chronic kidney disease with stage 1 through stage 4 chronic kidney disease, or unspecified chronic kidney disease; E11.51 Type 2 diabetes mellitus with diabetic peripheral angiopathy without gangrene; J44.9 Chronic obstructive pulmonary disease, unspecified; Z87.891 Personal history of nicotine dependence; G25.0 Essential tremor; E11.40 Type 2 diabetes mellitus with diabetic neuropathy, unspecified
CPT/HCPCS: 20693; 27870; 36415; 36430; 73590; 73610; 73620; 76000; 80076; 82962; 83036; 85014; 85018; 86920; C1713; J7120; P9016; A4216

== ENCOUNTER 2018-04-02 09:53 | Day surgery (SDC) | payer MEDICARE, MEDICAID, SELFPAY ==
[2018-03-10 05:52] VITALS: BMI 35.5
[2018-04-02] VITALS (8 sets, daily range): BP systolic 87–136; BP diastolic 45–79; PULSE 56–84; RESP 15–16; TEMP 35.8–36.9; O2SAT 92–100; BMI 38.4
[2018-04-02 10:31] LABS: Bedside Glucose 128 mg/dL (70-110)
--- NOTE | 2018-04-02 13:38 | PCM.IMDPSTOP ---
Immediate Post-Op Note Date of Procedure: 04/02/18 Primary Surgeon/Physician: Candi Covington DPM gas desulfurizer: Diana Hanks Pre-Operative Diagnosis: L open ankle fracture Post-Operative Diagnosis: same Surgery/Procedure Performed:: L ankle preparation of split thickness graft site, application of Integra Thin Skin x 3, harvest/aapplication of split thickness skin graft, excisional debridement of lateral ankle, wound vac application Description of Surgical Findings:: see dictation Estimated Blood Loss: minimal Specimen's removed: none Type of Anesthesia:: General/Supplemental - Admit VTE Documentation VTE Present on Admission: No VTE Mechan Device Prophylaxis: None VTE Pharm Prophylaxis ordered?: Yes
--- NOTE | 2018-04-02 13:42 | OP.PN_ITS ---
Immediate Post-Op Note Date of Procedure: 04/02/18 Primary Surgeon/Physician: Candi Covington DPM refinery operator light ends recovery: Diana Hanks Pre-Operative Diagnosis: L open ankle fracture Post-Operative Diagnosis: same Surgery/Procedure Performed:: L ankle preparation of split thickness graft site, application of Integra Thin Skin x 3, harvest/aapplication of split thickness skin graft, excisional debridement of lateral ankle, wound vac application Description of Surgical Findings:: see dictation Estimated Blood Loss: minimal Specimen's removed: none Type of Anesthesia:: General/Supplemental - Admit VTE Documentation VTE Present on Admission: No VTE Mechan Device Prophylaxis: None VTE Pharm Prophylaxis ordered?: Yes
[2018-04-02 13:51] LABS: Bedside Glucose 143 mg/dL (70-110)
--- NOTE | 2018-04-02 15:52 | RAD_ITS ---
STUDY: X-RAY - LEFT TIBIA AND FIBULA REASON FOR EXAM: Female, 58 years old. Deformity. Postop left ankle. TECHNIQUE: 2 view(s) of the tibia and fibula were obtained. COMPARISON: 03/20/2018. FINDINGS: As on all previous exams, there is extremely limited visualization of the ankle because of a marked amount of metal artifact from the external fixation hardware. The area of the ankle is particular extremely difficult to see. There are skin cristian indicating recent surgery. Bone graft material appears to still be seen overlying the distal tibia and again noted is resection of the distal fibula. There is grossly adequate alignment of the foot with the distal tibia. No definite bony fusion is seen. RAD/Tibia & Fibula 2 Views IMPRESSION: Extremely limited, nearly uninterpretable, images of the distal tibia and fibula and ankle because of overlying metal artifact. Graft material suggested related to the distal tibia and fibula and visualized foot. No definite fusion. Electronically Signed: David Garcia MD at 23:44 EST , Service support ,
--- NOTE | 2018-04-02 15:53 | RAD_ITS ---
STUDY: X-RAY - LEFT FOOT CLINICAL: Female, 58 years old. Pain TECHNIQUE: 2 view(s) of the foot. COMPARISON: None. FINDINGS: An external fixation device is in the proximal half of the foot. The distal half of which is visualized with a rib deformity involving the proximal shaft of the first metatarsal. No acute fractures are seen. Electronically Signed: Vipul Petit MD at 7:12 EST Tel , Service support , RAD/Foot 2 Views
--- NOTE | 2018-04-02 16:00 | RAD_ITS ---
STUDY: X-RAY - LEFT ANKLE REASON FOR EXAM: Female, 58 years old. Left foot and ankle surgery TECHNIQUE: 6 view(s) of the ankle. COMPARISON: None. FINDINGS: A complex external fixator device is seen in the distal leg and ankle. The hardware obscures any detail of bone. Electronically Signed: Vipul Petit MD at 7:46 EST Tel , Service support , RAD/Ankle min 3 Views
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
--- NOTE | 2018-04-03 09:59 | OP.PCM_ITS ---
Report of Operation Date of Procedure: 04/02/18 Pre-Operative Diagnosis: L open ankle fracture Post-Operative Diagnosis: same Surgery/Procedure Performed:: L ankle preparation of split thickness graft site, application of Integra Thin Skin x 3, harvest/application of split thickness skin graft, excisional debridement of lateral ankle, wound vac application Description of Surgical Findings:: see dictation home management supervisor: Diana Hanks Type of Anesthesia:: General/Supplemental Specimen's removed: none Estimated Blood Loss (mL): minimal Description of Procedure: Indications:58 yo F presenting for next stage of Left lower extremity limb salvage following an open ankle fracture this past summer. Patient would like surgical intervention today. All risks, complications, and alternatives were discussed with the patient, and the patient signed an informed consent. No guarantees were given. Procedure: On April 02, 2018 Kandy Young was visually and verbally identified in the preoperative holding area. The consent form was again reviewed with the patient, as were all risks, complications, and alternatives and the patient wished to proceed with the proposed surgery. The Right thigh and left lower leg were marked as the correct operative extremities. The patient was brought to the operating room and placed on the operating room table in the normal SUPINE position. After induction by anesthesia, a surgical time out was performed and all present were in agreement. Remaining sutures in the lateral incision were removed. At this time the right thigh and left lower extremity was prepped and draped in the usual sterile fashion. At this time attention was directed to the Left anteromedial wound. Using a #15 blade and curettes the wound was sharply debrided and prepared for application of Integra Thin Skin and Split thickness skin graft. All non-viable and fibrotic tissue was removed, hyperkeratotic tissue was noted at the medial rim of the wound and also excised. Red, granular bleeding base was noted after debridement. The wound measure 7 cm x 2 cm x 0.5 cm at its deepest. No exposed bone was noted. No drainage or SOI noted. Using fresh instrumentation, attention was then turned to the lateral ankle were the central portion of the previous incision was healing by secondary intention. The skin edges were sharply debrided with a #15 blade and a curette was used to debrided the wound of all non-viable and fibrotic tissue. After debridement the wound measured 2 cm x 1 cm and was 0.5 cm deep. Integra Thin Skin was then placed on the anteromedial ankle wound in the same dimensions of the wound. The lateral incision was also packed with the Integra Thin Skin until it was flush with the wound edges. Adaptic was placed over this site. Attention was then turned to the right anterior thigh for harvesting of the split thickness skin graft. The skin was prepped with copious amounts of mineral oil and held taught. A dermatone set at 0.15mm and a 2 inc blade was used to harvest the graft without difficulty. The graft was then transferred to the anteromedial wound. it was secured with a combination of monocryl sutures and cristian to the lateral most area of the wound, the residual graft was then placed within the medial portion of the wound and secures with monocryl and cristian. a central area and the most medial border did not have skin graft to allow for drainage. The graft itself was also pie crusted using a fresh #15 blade. Adaptic was placed over the anteromedial wound and STSG. A wound vac was then applied and set to 75mmHg continuous. The right thigh harvest site had the remaining Thin Skin applied and secured with cristian, measuring approximately 5 cm x 7.6 cm x 0.15mm deep. 10 cc of lidocaine with epi was injected at the harvest site subcutaneously. Adaptic and an optisite dressing was applied along with an macario bandage for compression. Pinsites were dressed with xeroform and DSD. The Left lower extremity was then dressed with dry, sterile dressings and macario compressive bandages. Strut adjustments and exchanges will be performed at bedside as tolerated by the patient. This will be done for improved alignment and and compression of the tibiotalar arthrodesis. The patient tolerated the procedure and anesthesia well. The patient was then transported to the postanesthesia care unit by a member of the anesthesia team and myself with all vital signs stable and neurovascular status of the b/l lower extremities equal to pre-operative levels. At the end of the case all sponge, needle and instrument counts were found to be correct. Grafts/Implants Used: Integra Thin Skin, NPWT - Complications none - Admit VTE Documentation VTE Present on Admission: No VTE Mechan Device Prophylaxis: None VTE Pharm Prophylaxis ordered?: Yes
== END 2018-04-02 15:48 | disposition skilled nursing facility (03) ==
LOC: SDC 09:55 → AC 09:55
PROVIDERS: Family Provider Internal Medicine; PCP Internal Medicine; Referring Provider Podiatrist Foot & Ankle Surgery; Visit Provider Podiatrist Foot & Ankle Surgery
PROC: (CPT 15002; principal; 2018-04-02 10:30)
DX: S82.892B Other fracture of left lower leg, initial encounter for open fracture type I or II (principal); X58.XXXA Exposure to other specified factors, initial encounter; E11.621 Type 2 diabetes mellitus with foot ulcer; D64.9 Anemia, unspecified; Z87.891 Personal history of nicotine dependence; Z79.899 Other long term (current) drug therapy; L89.613 Pressure ulcer of right heel, stage 3; E11.22 Type 2 diabetes mellitus with diabetic chronic kidney disease; E11.65 Type 2 diabetes mellitus with hyperglycemia; E11.42 Type 2 diabetes mellitus with diabetic polyneuropathy; I12.9 Hypertensive chronic kidney disease with stage 1 through stage 4 chronic kidney disease, or unspecified chronic kidney disease; J44.9 Chronic obstructive pulmonary disease, unspecified; N18.3 Chronic kidney disease, stage 3 (moderate); E78.5 Hyperlipidemia, unspecified; M19.90 Unspecified osteoarthritis, unspecified site
CPT/HCPCS: 15002; 15100; 15271; 73590; 73610; 73620; 82962; J7040; J2405

== ENCOUNTER → 2018-04-29 07:25 | Outpatient (CLI) | payer MEDICARE, MEDICAID, SELFPAY ==
[2018-04-14 16:16] VITALS: BMI 38.4
--- NOTE | 2018-04-29 07:36 | CT_ITS ---
PROCEDURE: CT LOWER EXTREMITY LEFT TIBIA/FIBULA REASON FOR EXAM: Female, 58 years old. Left ankle fracture-dislocation October 2017, external fixator x 6 months. History of MRSA. TECHNIQUE: Transaxial CT imaging of the proximal tibia/fibula through the hindfoot was performed. Sagittal and coronal images were reconstructed. COMPARISON: Frontal and lateral plain film views of the left tibia and fibula April 02, 2018. FINDINGS: There is generalized soft tissue swelling of the lower leg that could reflect reactive edema secondary to prior and healing injury, cellulitis, or outflow stasis. There is atrophy/fatty infiltration visualized calf/ankle/foot musculature. Intimal calcifications originally noted in the tibioperoneal arteries. There is a metal external fixator device connected to a number of pins that enter the proximal mid, and distal thirds of the tibia, as well as pins passing through the head to distal fibula, plantar aspect of the talus and calcaneus and proximal metatarsals. This produces significant artifact. Old pin tracks are also seen in the mid diaphysis and distal metadiaphysis of the tibia. There is a complex, comminuted fracture at the ankle, including a compression fracture of the dome of the talus and prior partial resection of the distal fibular metadiaphysis. There is a distracted and mildly overriding avulsion fracture of the medial malleolus, the distal fragment showing some chronic deformity secondary to ossifying periosteal reaction and attempted callus bridging across the anterior margin of the fracture. There is deformity along the posterior lateral margin of the distal tibial metaphysis, which is impacted into the fracture deformity of the talus. Lobulated, partially ossified periosteal reaction seen along the dorsomedial aspect of the distal tibia and distal fibula, and there are a number of irregular shaped ossific densities in the soft tissues spanning between these 2 structures and along the dorsal lateral margin of the upper talus. There is generalized demineralization of the osseous structures of the foot. Grossly, the tarsotarsal and metatarsal articulations are intact. There is no clear sign of hardware loosening or significant osseous resorption around a specific piece of hardware. No other joaquín bone destruction to suggest active osteomyelitis. CT/Extremity Lower without Contra IMPRESSION: 1. Complex, comminuted fractures at the ankle, including changes of prior partial resection of the distal fibula as well as compression fracture of the dome of the talus. The tibia and fibula, talus, calcaneus, and proximal metatarsals are fixed by a metal pins that connected to an external fixator device. There is lobulated, ossified periosteal reaction at the surgery and fracture sites, but the fracture margins of the distal tibia and talus remain visible. 2. Generalized soft tissue swelling that may be secondary to ongoing injury, cellulitis, or outflow stasis. Atherosclerotic vascular calcifications also present. No joaquín osseous destruction or overt hardware loosening to indicate changes of acute osteomyelitis. 3. Atrophy/fatty infiltration of the calf/ankle/foot musculature. There is demineralization of the osseous structures of foot, presumably secondary to disuse. Electronically Signed: Parrish Morillo MD at 19:57 EST , Service support ,
[2018-04-29 09:01] LABS: Absolute Neutrophil Count 5.7 X10^3/uL (2.0-7.7); Basophil# 0.03 X10^3/uL; Basophil% 0.4 % (0-1); Eosinophil# 0.16 X10^3/uL; Eosinophils% 1.9 % (0-5); Hemoglobin 10.9 g/dl (12.0-15.0); Lymphocyte % 22.5 % (19-41); Mean Corp Hgb Conc 31.1 g/gl (32-36); Mean Corpuscular Hgb 27.3 pg (27.0-32.0); Mean Corpuscular Volume 87.5 fL (81-99); Mean Platelet Vol. 9.4 fl (6.2-12.0); Monocyte# 0.59 X10^3/uL; Neutrophil % 67.6 % (47-70); POSITIVE COUNT NO; POSITIVE DIFFERENTIAL NO; POSITIVE MORPHOLOGY NO; Platelet Count 267 K/mm3 (150-450); RBC Distribution Width CV 15.3 % (11.6-14.6); White Blood Count 8.4 K/mm3 (4.4-11.0)
[2018-04-29 09:20] LABS: ALB/GLOB Ratio 0.6 RATIO (0.9-2.4); AST(SGOT) 9 U/L (15-37); Alanine Aminotransfer ALT/SGPT 17 U/L (13-56); Albumin, Serum 2.9 g/dL (3.2-5.0); Alkaline Phosphatase 130 U/L (45-117); Anion Gap 12 (5-15); BUN 55 mg/dL (7-18); BUN/Creat Ratio 24.6 RATIO (10-20); Calcium,Total 9.5 mg/dL (8.5-10.1); Chloride 110 mmol/L (98-107); Creatinine, Serum 2.24 mg/dL (0.55-1.02); EST Glomerular Filtration Rate 24 mL/min (>60); Est Glom Filt Rate - Afr Amer 29 mL/min (>60); Globulin 4.7 g/dL (2.2-4.2); Glucose 143 mg/dL (74-106); Potassium 4.6 mmol/L (3.5-5.1); Protein, Total 7.6 g/dL (6.4-8.2); Sodium Level 142 mmol/L (136-145); Uric Acid 6.5 mg/dL (2.6-6.0)
== END ==
PROVIDERS: Family Provider Internal Medicine; PCP Internal Medicine; Referring Provider Podiatrist Foot & Ankle Surgery; Visit Provider Podiatrist Foot & Ankle Surgery
DX: M06.4 Inflammatory polyarthropathy (principal); M79.7 Fibromyalgia; M32.9 Systemic lupus erythematosus, unspecified; M10.9 Gout, unspecified; K76.0 Fatty (change of) liver, not elsewhere classified; G47.33 Obstructive sleep apnea (adult) (pediatric); E11.22 Type 2 diabetes mellitus with diabetic chronic kidney disease; I12.9 Hypertensive chronic kidney disease with stage 1 through stage 4 chronic kidney disease, or unspecified chronic kidney disease; N18.9 Chronic kidney disease, unspecified; E78.5 Hyperlipidemia, unspecified; J44.9 Chronic obstructive pulmonary disease, unspecified; E13.51 Other specified diabetes mellitus with diabetic peripheral angiopathy without gangrene
CPT/HCPCS: 36415; 73700; 80053; 84550; 85025

== ENCOUNTER → 2018-05-25 10:32 | Outpatient (CLI) | payer MEDICARE, SELFPAY ==
[2018-05-13 14:16] VITALS: BMI 38.4
== END ==
PROVIDERS: Family Provider Internal Medicine; PCP Internal Medicine; Referring Provider Surgery; Visit Provider Surgery
DX: Z01.812 Encounter for preprocedural laboratory examination (principal)

== ENCOUNTER → 2018-05-30 11:02 | Outpatient (CLI) | payer MEDICARE, SELFPAY ==
[2018-05-13 14:16] VITALS: BMI 38.4
[2018-05-30 11:41] LABS: Hematocrit 38.5 % (37-47); Hemoglobin 11.8 g/dl (12.0-15.0); Mean Corp Hgb Conc 30.6 g/gl (32-36); Mean Corpuscular Hgb 26.8 pg (27.0-32.0); Mean Corpuscular Volume 87.5 fL (81-99); Mean Platelet Vol. 9.3 fl (6.2-12.0); Platelet Count 280 K/mm3 (150-450); RBC Distribution Width CV 14.9 % (11.6-14.6); RBC Distribution Width SD 47.4 fl (35.1-43.9); White Blood Count 8.5 K/mm3 (4.4-11.0)
[2018-05-30 11:45] LABS: Scan Indicated on CBC? Y/N NO
[2018-05-30 12:02] LABS: BUN 65 mg/dL (7-18); BUN/Creat Ratio 29.1 RATIO (10-20); Calcium,Total 9.5 mg/dL (8.5-10.1); Chloride 109 mmol/L (98-107); Creatinine, Serum 2.23 mg/dL (0.55-1.02); EST Glomerular Filtration Rate 24 mL/min (>60); Est Glom Filt Rate - Afr Amer 29 mL/min (>60); Glucose 111 mg/dL (74-106); Phosphorus 5.2 mg/dL (2.5-4.9); Potassium 4.6 mmol/L (3.5-5.1); Sodium Level 142 mmol/L (136-145)
[2018-05-30 13:06] LABS: Vitamin D,25 Hydroxy 12.5 ng/mL (29.95-100.01)
[2018-06-01 08:24] LABS: Magnesium 2.2 mg/dL (1.6-2.6)
[2018-06-01 08:35] LABS: PTHIN 45.7 pg/mL (18.4-80.1)
== END ==
PROVIDERS: Family Provider Internal Medicine; PCP Internal Medicine; Referring Provider Internal Medicine Nephrology; Visit Provider Internal Medicine Nephrology
DX: E55.9 Vitamin D deficiency, unspecified (principal); N18.3 Chronic kidney disease, stage 3 (moderate); N05.1 Unspecified nephritic syndrome with focal and segmental glomerular lesions; Z13.0 Encounter for screening for diseases of the blood and blood-forming organs and certain disorders involving the immune mechanism
CPT/HCPCS: 36415; 80069; 82306; 82570; 83735; 83970; 84156; 85027

== ENCOUNTER 2018-06-02 05:58 | Day surgery (SDC) | payer MEDICARE, SELFPAY ==
[2018-05-13 14:16] VITALS: BMI 38.4
[2018-06-02 06:29] VITALS: BP 131/86; PULSE 68; RESP 16; TEMP 36.1; O2SAT 100; BMI 37.3
[2018-06-02 06:50] LABS: Bedside Glucose 126 mg/dL (70-110)
--- NOTE | 2018-06-02 07:35 | RAD_ITS ---
STUDY: X-RAY - LEFT ANKLE REASON FOR EXAM: Female, 58 years old. Bone marrow aspiration and adjustment of external fixator. TECHNIQUE: 10 coned-down intraoperative view(s) of the ankle. COMPARISON: None. FINDINGS: Intraoperative imaging provided for adjustment of the external fixator device. RAD/Ankle min 3 Views IMPRESSION: Intraoperative fluoroscopic services provided for external fixator adjustment. Electronically Signed: Mahesh Olivia, at 8:53 EST , Service support ,
[2018-06-02] MEDS: Heparin 10,000 UNITS/10 ML Vial 10000 UNITS (08:40)
[2018-06-02] MEDS: Calcium Chloride 1 GM/10 ML Syringe (08:40)
--- NOTE | 2018-06-02 10:24 | RAD_ITS ---
STUDY: X-RAY - LEFT ANKLE REASON FOR EXAM: Female, 58 years old. Postoperative external fixator adjustment. TECHNIQUE: 3 view(s) of the ankle. COMPARISON: None. FINDINGS: 3 postoperative views were obtained. An external fixator device is seen. RAD/Ankle min 3 Views IMPRESSION: External fixator device placement. Electronically Signed: Mahesh Olivia, at 10:45 EST , Service support ,
--- NOTE | 2018-06-02 10:26 | RAD_ITS ---
STUDY: X-RAY - LEFT FOOT CLINICAL: Female, 58 years old. Postoperative external fixator adjustment. TECHNIQUE: AP and lateral view(s) of the foot. COMPARISON: None. FINDINGS: External fixator apparatus is in place. RAD/Foot 2 Views IMPRESSION: External fixator apparatus is in place. Electronically Signed: Mahesh Olivia, at 10:47 EST , Service support ,
--- NOTE | 2018-06-02 10:27 | RAD_ITS ---
STUDY: X-RAY - RIGHT TIBIA AND FIBULA REASON FOR EXAM: Female, 58 years old. Post op bone marrow aspiration proximal tibia. TECHNIQUE: AP and lateral view(s) of the tibia and fibula were obtained. COMPARISON: None. FINDINGS: There is a 4.7 mm defect in the anterior lateral proximal tibial diaphysis. Normal visualized fibula. The soft tissue structures are unremarkable. RAD/Tibia & Fibula 2 Views IMPRESSION: Postoperative changes demonstrating access sites for bone marrow biopsy. Electronically Signed: Mahesh Olivia, at 10:46 EST , Service support ,
[2018-06-02 10:30] VITALS: BP 131/86; BP 90/50; PULSE 53; RESP 16; TEMP 36.2; O2SAT 91
--- NOTE | 2018-06-02 10:34 | PCM.DC.ORTHO ---
Discharge Activity: May Not Drive, May not drive while taking narcotic pain medications., May Not Shower, Use Walker Weight Bearing Status: No weight bearing - Nonweightbearing to left lower extremity; weightbearing as tolerated to the right lower extremity Keep extremity elevated above heart level: Operative Extremity Call your doctor if your incision/area has: Sudden Increased Bleeding Call your doctor if you observe: Fever of 101 or Higher, Inability to urinate, Shortness of breath, Increased palpitations (irregular heartbeat), Calf discomfort, Uncontrolled pain Cleanse incision/area with: Keep Dressing Clean & Dry Allergies/Adverse Reactions: Allergies aspirin Allergy (Verified 06/02/18 06:15) Hives latex Allergy (Verified 06/02/18 06:15) Hives Penicillins Allergy (Verified 06/02/18 06:15) Hives naproxen [From Aleve] Adverse Reaction (Severe, Verified 06/02/18 06:15) Kidney disease Stage 3 Medications to take at Discharge Amitriptyline HCl 75 mg PO QHS 12/03/16 cholecalciferol (vitamin D3) 2,000 unit capsule 2,000 unit PO DAILY 05/27/17 hydroxychloroquine 200 mg tablet 200 mg PO QDAY 05/27/17 omega-3 fatty acids 1,000 mg capsule 1,000 mg PO QDAY 05/27/17 gabapentin 300 mg capsule 300 mg PO TID cap 08/19/17 ipratropium 20 mcg-albuterol 100 mcg/actuation mist for inhalation 1 inh INHALATION Q6H PRN #4 g 08/22/17 Multivit-Min/Iron/Folic/Lutein [Centrum Silver Women Tablet] 1 tab PO DAILY 01/13/18 Acetaminophen [Tylenol] 1,000 mg PO Q6H PRN PRN tab 04/06/18 Cyclobenzaprine [Flexeril] 10 mg PO TID tab 04/06/18 Diltiazem CD [Cardizem CD] 180 mg PO Q12 #60 cap 04/06/18 Doxycycline 100 mg PO BID #60 cap 04/06/18 Menthol/Lanolin/Calamine/Znox [Calmoseptine Ointment] 1 applic TOPICAL BID PRN PRN tube 04/06/18 Sodium Chloride 0.65% [[place] Nasal [place]] 1 spray NASAL TID PRN PRN spray.btl 04/06/18 Zolpidem Tartrate [Ambien] 5 mg PO QHS PRN PRN #30 tab 04/06/18 lisinopril 20 mg tablet 20 mg PO DAILY #90 tab 05/13/18 Lancets #100 ea 05/18/18 Test strips #120 ea 05/18/18 diabetic supplies, miscellaneous kit See Dose Instructions .ROUTE .MEDSUPPLY #1 ea 05/18/18 atenolol 50 mg tablet 50 mg PO DAILY #90 tab 05/28/18 triamterene 75 mg-hydrochlorothiazide 50 mg tablet 1 tab PO DAILY #90 tab 05/28/18 traMADol [Ultram] 50 mg PO Q4H PRN PRN 7 Days #28 tab 06/02/18 The following prescriptions were given: traMADol [Ultram] 50 mg PO Q4H PRN PRN 7 Days #28 tab PRN Reason: Pain Primary Care Physician: Pia Newton MD [Primary Care Provider] - Test Results: Test results from this visit will be discussed in further detail at your follow-up appointment, if applicable. Please Follow Up With: Candi Covington DPM - Please follow up next week at your previously scheduled post operative appointment. Proposed Discharge Date: 06/02/18
--- NOTE | 2018-06-02 10:37 | RAD_ITS ---
STUDY: X-RAY - LEFT TIBIA AND FIBULA REASON FOR EXAM: Female, 58 years old. External fixator adjustment. TECHNIQUE: 2 view(s) of the tibia and fibula were obtained. COMPARISON: None. FINDINGS: Postoperative external fixator adjustment. RAD/Tibia & Fibula 2 Views IMPRESSION: Postoperative external fixator adjustment assessment. Electronically Signed: Mahesh Olivia, at 10:47 EST , Service support ,
--- NOTE | 2018-06-02 10:37 | DCINST_ITS ---
Discharge Activity: May Not Drive, May not drive while taking narcotic pain medications., May Not Shower, Use Walker Weight Bearing Status: No weight bearing - Nonweightbearing to left lower extremity; weightbearing as tolerated to the right lower extremity Keep extremity elevated above heart level: Operative Extremity Call your doctor if your incision/area has: Sudden Increased Bleeding Call your doctor if you observe: Fever of 101 or Higher, Inability to urinate, Shortness of breath, Increased palpitations (irregular heartbeat), Calf discomfort, Uncontrolled pain Cleanse incision/area with: Keep Dressing Clean & Dry Allergies/Adverse Reactions: Allergies aspirin Allergy (Verified 06/02/18 06:15) Hives latex Allergy (Verified 06/02/18 06:15) Hives Penicillins Allergy (Verified 06/02/18 06:15) Hives naproxen [From Aleve] Adverse Reaction (Severe, Verified 06/02/18 06:15) Kidney disease Stage 3 Medications to take at Discharge Amitriptyline HCl 75 mg PO QHS 12/03/16 cholecalciferol (vitamin D3) 2,000 unit capsule 2,000 unit PO DAILY 05/27/17 hydroxychloroquine 200 mg tablet 200 mg PO QDAY 05/27/17 omega-3 fatty acids 1,000 mg capsule 1,000 mg PO QDAY 05/27/17 gabapentin 300 mg capsule 300 mg PO TID cap 08/19/17 ipratropium 20 mcg-albuterol 100 mcg/actuation mist for inhalation 1 inh INHALATION Q6H PRN #4 g 08/22/17 Multivit-Min/Iron/Folic/Lutein [Centrum Silver Women Tablet] 1 tab PO DAILY 01/13/18 Acetaminophen [Tylenol] 1,000 mg PO Q6H PRN PRN tab 04/06/18 Cyclobenzaprine [Flexeril] 10 mg PO TID tab 04/06/18 Diltiazem CD [Cardizem CD] 180 mg PO Q12 #60 cap 04/06/18 Doxycycline 100 mg PO BID #60 cap 04/06/18 Menthol/Lanolin/Calamine/Znox [Calmoseptine Ointment] 1 applic TOPICAL BID PRN PRN tube 04/06/18 Sodium Chloride 0.65% [[place] Nasal [place]] 1 spray NASAL TID PRN PRN spray.btl 04/06/18 Zolpidem Tartrate [Ambien] 5 mg PO QHS PRN PRN #30 tab 04/06/18 lisinopril 20 mg tablet 20 mg PO DAILY #90 tab 05/13/18 Lancets #100 ea 05/18/18 Test strips #120 ea 05/18/18 diabetic supplies, miscellaneous kit See Dose Instructions .ROUTE .MEDSUPPLY #1 ea 05/18/18 atenolol 50 mg tablet 50 mg PO DAILY #90 tab 05/28/18 triamterene 75 mg-hydrochlorothiazide 50 mg tablet 1 tab PO DAILY #90 tab 05/28/18 traMADol [Ultram] 50 mg PO Q4H PRN PRN 7 Days #28 tab 06/02/18 The following prescriptions were given: traMADol [Ultram] 50 mg PO Q4H PRN PRN 7 Days #28 tab PRN Reason: Pain Primary Care Physician: Pia Newton MD [Primary Care Provider] - Test Results: Test results from this visit will be discussed in further detail at your follow- up appointment, if applicable. Please Follow Up With: Candi Covington DPM - Please follow up next week at your previously scheduled post operative appointment. Proposed Discharge Date: 06/02/18
--- NOTE | 2018-06-02 10:37 | PCM.OPRPT ---
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; L ankle wound/STSG failure Post-Operative Diagnosis: same Surgery/Procedure Performed:: R tibia bone marrow harvest; Left lower extremity external fixation adjustment; L ankle debridement of wound/STSG failure site; Left tibiotalar arthrodesis site/bone cyst injection of BMAC and Augment Injectable under fluoroscopic guidance; Description of Surgical Findings:: see dictation glue drier operator: Ashutosh Gutierrez Type of Anesthesia:: General Estimated Blood Loss (mL): minimal Description of Procedure: Indications: Pt is a 58 yo F well known to me since 2017 with hx of L ankle open fracture in October of 2017. Patient has had multiple procedures for left lower extremity limb salvage. She was most recently discharged from the TCU to home on po abx suppressive therapy with weekly clinical appointments with me. A CT scan was done in late March to evaluate the progression of her fusion site which indicated good alignment with minimal healing and some gapping where there was bone loss of her tibia. She has been NWB LLE with home physical therapy and was prescribed an ultrasound bone stimulator approximately 6 weeks ago. Her anteromedial wound that was previously had a split thickness skin graft placed has had about 90% take with minimal necrotic edges noted; patient did not want to try HBOT as she is claustrophobic. She has resumed occasional tobacco use since discharge and has been counseled against this as it can significantly impact her healing potential. She maintains good blood sugar control. She has followed up with her PCP and specialists since discharge. With the findings of her CT scan, along with a broken olive wire in her distal foot plate, and the mild necrosis of the STSG site, we decided to return to the operating room to exchange the wire, stimulate the arthrodesis site with BMAC and Augment Injectable, and debride the ankle. All risks, complications, and alternatives were discussed with the patient, and the patient signed an informed consent. No guarantees were given. Procedure: On 06/02/2018, Kandy Young was visually and verbally identified in the preoperative holding area. The consent form was again reviewed with the patient, as were all risks, complications, and alternatives and the patient wished to proceed with the proposed surgery. The bilateral lower extremities were marked as the correct operative extremities. The patient was brought to the operating room and placed on the operating room table in the normal SUPINE position. After induction by anesthesia, a surgical time out was performed and all present were in agreement. a pneumatic thigh tourniquet was then placed on the Left thigh. At this time the bilateral lower extremities were prepped and draped in the usual sterile fashion. The thigh tourniquet was not inflated during the procedure. At this time attention was directed to the Left lower leg. The two anterior struts were loosened to aid in visualization of the tibiotalar arthrodesis site under intra operative fluoroscopy. Attention was turned to the forefoot where one olive wire was notably broken in clinic. upon inspection and as seen on fluoroscopy, both distal foot wires were broken. I then did ankle and tib fib views and it was determined a third olive wire was also broken in talus. These three wires were removed in total and without incident. There was questionable drainage from the medial distal wire site in the foot and a wound culture was obtained. A fresh curette was used for each pinsite to debride it. They were flushed with normal sterile saline. Because of the motion with the broken wire one of the lateral pinsites was enlarged several centimeters, I used a #15 blade to remove the hyperkeratotic rim and then used 3.0 prolene to close this site. Attention was turned to the anteromedial wound and previous split thickness skin graft site, the necrotic and nonviable edges to and through the subcutaneous tissue were removed with a #15 blade. Red, granular tissue remained around the rim. The entire site measured 5.5 cm x 6 cm x 0.5 cm, but 90% of this was well healed skin graft. Attention was then turned to the Right lower leg. Using the Arteriocyte system for Bone marrow harvest, I made a stab incision with a #15 blade in the proximal tibia just distal and slightly medial to the tibial tuberosity. I then was able to draw 60 cc of BMA. The stab incision was closed with 3.0 prolene skin suture. This was then placed in the BMAC system and spun down per printing assistant's guidelines to have a final BMAC of 3 ccs. Under fluoroscopic guidance I then injected the BMAC into the tibiotalar arthrodesis site/bone cyst. The PPP that was obtained from the spin was then combined with a calcium thrombin to form a spray which was applied to the previous site of the STSG to aid in healing. After injection of the BMAC I also placed 3cc of [employer] Augment Injectable into the tibiotalar arthrodesis site/bone cysts. This was done under intraoperative fluoroscopic guidance from an anteromedial and anterolateral approach. I then returned my attention to the distal foot where I replaced the distal olive wires across and through the first and 5th metatarsals. This was done under intraoperative fluoroscopy to confirm placement. A third olive wire was then placed in the talus. All wires, nuts and bolts with tightened and tensioned per printing assistant's guidelines. All wires, nuts and bolts of the external fixation were again reviewed for appropriate tightness and tension. No other loose parts were found. The struts were reattached and tightened. The RLE incision was covered with an Optsite dressing and compressive macario was applied from her toes to just proximal to the fibular head to aid in compression. The left lower leg was dressed with xeroform to each pinsite along with dry, sterile dressings. The previous STSG site was covered with xeroform and DSD. A light compressive dressing was then applied to the LLE. Intra operative fluoroscopy was utilized throughout the case, > 1 hour, to aid in visualization and confirmation of olive wire removal and placement as well as for injection of BMAC and Augment Injectable into the tibiotalar arthrodesis site. Interpretation of the images was vital to my decision making process. The patient tolerated the procedure and anesthesia well. The patient was then transported to the postanesthesia care unit by a member of the anesthesia team and myself with all vital signs stable and neurovascular status of the bilateral lower extremities equal to pre-operative levels. At the end of the case all sponge, needle and instrument counts were found to be correct. Grafts/Implants Used: Orthofix olive wire x 3, [employer] 3 cc Augment Injectable, Isto BMAC - Complications none - Admit VTE Documentation VTE Present on Admission: No VTE Mechan Device Prophylaxis: None VTE Pharm Prophylaxis ordered?: Yes
[2018-06-02 10:45] VITALS: BP 131/86; BP 97/63; PULSE 52; RESP 16; O2SAT 100
[2018-06-02 11:00] VITALS: BP 115/60; BP 131/86; PULSE 52; RESP 16; O2SAT 100
[2018-06-02 11:27] VITALS: BP 121/90; BP 131/86; PULSE 54; RESP 16; TEMP 36.1; O2SAT 99
[2018-06-02 11:41] LABS: Bedside Glucose 117 mg/dL (70-110)
[2018-06-02 12:53] VITALS: BP 116/88; BP 131/86; PULSE 60; RESP 16; TEMP 36.2; O2SAT 98
== END 2018-06-02 13:09 | disposition home or self-care (01) ==
LOC: SDC 05:58 → AC 06:00
PROVIDERS: Family Provider Internal Medicine; PCP Internal Medicine; Referring Provider Podiatrist Foot & Ankle Surgery; Visit Provider Podiatrist Foot & Ankle Surgery
PROC: (CPT 11042; principal; 2018-06-02 07:15)
DX: S82.842 Displaced bimalleolar fracture of left lower leg (principal); M96.0 Pseudarthrosis after fusion or arthrodesis; T84.117A Breakdown (mechanical) of internal fixation device of bone of left lower leg, initial encounter; Y79.3 Surgical instruments, materials and orthopedic devices (including sutures) associated with adverse incidents; Y83.8 Other surgical procedures as the cause of abnormal reaction of the patient, or of later complication, without mention of misadventure at the time of the procedure; T86.821 Skin graft (allograft) (autograft) failure; M85.662 Other cyst of bone, left lower leg; E11.22 Type 2 diabetes mellitus with diabetic chronic kidney disease; N18.3 Chronic kidney disease, stage 3 (moderate); F32.9 Major depressive disorder, single episode, unspecified; E78.00 Pure hypercholesterolemia, unspecified; D64.9 Anemia, unspecified; Z79.899 Other long term (current) drug therapy; I12.9 Hypertensive chronic kidney disease with stage 1 through stage 4 chronic kidney disease, or unspecified chronic kidney disease; J45.909 Unspecified asthma, uncomplicated; Z79.84 Long term (current) use of oral hypoglycemic drugs; M79.7 Fibromyalgia; F17.210 Nicotine dependence, cigarettes, uncomplicated; X58.XXXD Exposure to other specified factors, subsequent encounter; E55.9 Vitamin D deficiency, unspecified; N05.1 Unspecified nephritic syndrome with focal and segmental glomerular lesions; Z13.0 Encounter for screening for diseases of the blood and blood-forming organs and certain disorders involving the immune mechanism
CPT/HCPCS: 11042; 20615; 20693; 38232; 36415; 73590; 73610; 73620; 76000; 80069; 82306; 82962; 83735; 83970; 85027; 87070; 87075; 87077; 87102; 87205; 87206; C1713; J7040; J7120; A4216; J2405

== ENCOUNTER → 2018-06-26 11:41 | Outpatient (CLI) | payer MEDICARE, SELFPAY ==
[2018-06-02 06:29] VITALS: BMI 37.3
--- NOTE | 2018-06-26 12:06 | CT_ITS ---
STUDY: CT SCAN OF THE LEFT LOWER LEG WITHOUT CONTRAST REASON FOR EXAM: Female, 58 years old. History of fracture and dislocation. RADIATION DOSAGE (If Supplied By Facility): CTDIvol = ( 15.35 ) mGy, DLP = ( 650.49 ) mGycm. Individualized dose optimization techniques were used for this CT.? TECHNIQUE: Axial cuts were obtained from the proximal tibia and fibula to the level of the foot without intravenous contrast infusion. Sagittal and coronal reconstruction images were obtained. COMPARISON: Correlation is made with the plain films of the tibia and fibula 06/02/2016. FINDINGS: The left lower leg is again in traction with multiple screws creating significant artifacts. The examination is markedly limited. Traction screws are seen traversing the tibia and fibula. Severe irregularity of the distal tibia with fractures and flattening of the distal tibia are seen. Cystic changes are seen in the talar dome. There are bony densities/heterotopic bone formations adjacent to the distal tibia and fibula. There is diffuse demineralization of the osseous structures. Accurate evaluation otherwise is not possible due to significant artifacts. CT/Extremity Lower without Contra IMPRESSION: 1. Markedly limited examination due to significant artifacts from metallic screws and traction device. 2. Deformity and depression with fractures of the distal tibia extending into the tibiotalar joint. 3. Cystic changes in the talar dome. 4. Otherwise the examination is nondiagnostic. Electronically Signed: Bridger Daniel MD at 12:45 EDT Tel , Service support ,
[2018-06-26 12:47] LABS: Vitamin D,25 Hydroxy 30.2 ng/mL (29.95-100.01)
== END ==
PROVIDERS: Family Provider Internal Medicine; PCP Internal Medicine; Referring Provider Podiatrist Foot & Ankle Surgery; Visit Provider Podiatrist Foot & Ankle Surgery
DX: E55.9 Vitamin D deficiency, unspecified (principal); S82.842 Displaced bimalleolar fracture of left lower leg; S93.05XD Dislocation of left ankle joint, subsequent encounter
CPT/HCPCS: 36415; 73700; 82306; 82330

== ENCOUNTER 2018-08-11 06:03 | Day surgery (SDC) | payer MEDICARE, SELFPAY ==
[2018-07-08 13:23] VITALS: BMI 37.3
[2018-08-11] VITALS (10 sets, daily range): BP systolic 102–159; BP diastolic 45–85; PULSE 63–71; RESP 16; TEMP 36.1–36.5; O2SAT 94–100; BMI 34.2
[2018-08-11 07:05] LABS: Bedside Glucose 136 mg/dL (70-110)
--- NOTE | 2018-08-11 07:30 | RAD_ITS ---
STUDY: X-RAY - LEFT TIBIA AND FIBULA REASON FOR EXAM: Female, 58 years old. Percutaneous injection of bone marrow. TECHNIQUE: 2 coned-down view(s) of the tibia and fibula were obtained intraoperatively. COMPARISON: None. FINDINGS: A needle is seen overlying the distal portion of the tibia. RAD/Tibia & Fibula 2 Views IMPRESSION: Intraoperative imaging provided for percutaneous injection of bone marrow. Electronically Signed: Mahesh Olivia, at 15:14 EDT , Service support ,
[2018-08-11] MEDS: Calcium Chloride 1 GM/10 ML Syringe (08:49)
[2018-08-11] MEDS: Heparin 10,000 UNITS/10 ML Vial 10000 UNITS (08:49)
--- NOTE | 2018-08-11 09:47 | RAD_ITS ---
STUDY: X-RAY - LEFT FOOT CLINICAL: Female, 58 years old. Postoperative changes. TECHNIQUE: 3 view(s) of the foot were obtained in a cast.. COMPARISON: Comparison is made with prior study dated March 20, 2018. FINDINGS: The external fixator has been removed. Marked degree of a degenerative changes at the tibial talar joint with sclerosis and deformity. There is deformity of the talus suggestive of possible Charcot deformity. RAD/Foot min 3 Views IMPRESSION: Status post removal of the external fixator device. 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 Electronically Signed: Mahesh Oliiva, at 12:30 EDT , Service support ,
--- NOTE | 2018-08-11 09:48 | RAD_ITS ---
STUDY: X-RAY - LEFT TIBIA AND FIBULA REASON FOR EXAM: Female, 58 years old. External fixator removal. TECHNIQUE: AP and lateral view(s) of the tibia and fibula were obtained. COMPARISON: Comparison is made with prior study June 02, 2018. FINDINGS: The external fixator has been removed. Small rounded lucencies are seen in the tibial shaft at the site of prior screw placement. There is non-specific soft tissue swelling. RAD/Tibia & Fibula 2 Views IMPRESSION: Status post external fixator removal. Electronically Signed: Mahesh Olivia, at 12:25 EDT , Service support ,
--- NOTE | 2018-08-11 09:48 | RAD_ITS ---
STUDY: X-RAY - LEFT ANKLE REASON FOR EXAM: Female, 58 years old. External fixator removal. TECHNIQUE: AP and lateral view(s) of the ankle. COMPARISON: None. FINDINGS: The external fixator has been removed. Small lucencies are seen in the tibial shaft in keeping with prior screw placement. Marked changes at the tibial talar joint with the deformity of the talus. Soft tissue swelling. RAD/Ankle 2 Views IMPRESSION: Status post external fixator removal. Electronically Signed: Mahesh Olivia, at 12:27 EDT , Service support ,
--- NOTE | 2018-08-11 09:51 | PCM.DC.ORTHO ---
Discharge Activity: May Not Drive, May not drive while taking narcotic pain medications., May Not Shower, Use Walker, Use Crutches Weight Bearing Status: No weight bearing Keep extremity elevated above heart level: Operative Extremity Call your doctor if your incision/area has: Sudden Increased Bleeding Call your doctor if you observe: Fever of 101 or Higher, Shortness of breath, Dizziness, Chest pain, Increased palpitations (irregular heartbeat), Calf discomfort, Uncontrolled pain Cleanse incision/area with: Keep Dressing Clean & Dry Allergies/Adverse Reactions: Allergies aspirin Allergy (Verified 08/10/18 10:57) Hives latex Allergy (Verified 08/10/18 10:57) Hives Penicillins Allergy (Verified 08/10/18 10:57) Hives simvastatin Allergy (Verified 08/10/18 10:58) Unknown naproxen [From Aleve] Adverse Reaction (Severe, Verified 08/10/18 10:57) Kidney disease Stage 3 Medications to take at Discharge Amitriptyline HCl 75 mg PO QHS 12/03/16 hydroxychloroquine 200 mg tablet 200 mg PO BID 05/27/17 ipratropium 20 mcg-albuterol 100 mcg/actuation mist for inhalation 1 inh INHALATION Q6H PRN #4 g 08/22/17 Multivit-Min/Iron/Folic/Lutein [Centrum Silver Women Tablet] 1 tab PO DAILY 01/13/18 Doxycycline 100 mg PO BID #60 cap 04/06/18 Sodium Chloride 0.65% [[place] Nasal [place]] 1 spray NASAL TID PRN PRN spray.btl 04/06/18 Lancets #100 ea 05/18/18 Test strips #120 ea 05/18/18 diabetic supplies, miscellaneous kit See Dose Instructions .ROUTE .MEDSUPPLY #1 ea 05/18/18 triamterene 75 mg-hydrochlorothiazide 50 mg tablet 1 tab PO DAILY #90 tab 05/28/18 cyclobenzaprine 10 mg tablet 10 mg PO TID PRN #90 tab 06/15/18 Acetaminophen [Arthritis Pain Relief] 650 mg PO PRN PRN 08/10/18 Atenolol [Tenormin (beta feliberto)] 50 mg PO DAILY 08/10/18 Diltiazem CD [Cardizem CD] 180 mg PO Q12 08/10/18 Lisinopril 40 mg PO BID 08/10/18 Mometasone Furoate [Nasonex] 1 spray NASAL DAILY PRN 08/10/18 cholecalciferol (vitamin D3) 50,000 unit capsule 50,000 unit PO QWEEK #10 cap 08/10/18 traMADol [Ultram] 50 mg PO Q4H PRN PRN 7 Days #28 tab 08/11/18 The following prescriptions were given: traMADol [Ultram] 50 mg PO Q4H PRN PRN 7 Days #28 tab PRN Reason: pain Primary Care Physician: Pia Newton MD [Primary Care Provider] - Test Results: Test results from this visit will be discussed in further detail at your follow-up appointment, if applicable. Please Follow Up With: Candi Covington DPM When: Please follow up next week at your previously scheduled post op appointment
--- NOTE | 2018-08-11 09:56 | DCINST_ITS ---
Discharge Activity: May Not Drive, May not drive while taking narcotic pain medications., May Not Shower, Use Walker, Use Crutches Weight Bearing Status: No weight bearing Keep extremity elevated above heart level: Operative Extremity Call your doctor if your incision/area has: Sudden Increased Bleeding Call your doctor if you observe: Fever of 101 or Higher, Shortness of breath, Dizziness, Chest pain, Increased palpitations (irregular heartbeat), Calf disco mfort, Uncontrolled pain Cleanse incision/area with: Keep Dressing Clean & Dry Allergies/Adverse Reactions: Allergies aspirin Allergy (Verified 08/10/18 10:57) Hives latex Allergy (Verified 08/10/18 10:57) Hives Penicillins Allergy (Verified 08/10/18 10:57) Hives simvastatin Allergy (Verified 08/10/18 10:58) Unknown naproxen [From Aleve] Adverse Reaction (Severe, Verified 08/10/18 10:57) Kidney disease Stage 3 Medications to take at Discharge Amitriptyline HCl 75 mg PO QHS 12/03/16 hydroxychloroquine 200 mg tablet 200 mg PO BID 05/27/17 ipratropium 20 mcg-albuterol 100 mcg/actuation mist for inhalation 1 inh INHALATION Q6H PRN #4 g 08/22/17 Multivit-Min/Iron/Folic/Lutein [Centrum Silver Women Tablet] 1 tab PO DAILY 01/13/18 Doxycycline 100 mg PO BID #60 cap 04/06/18 Sodium Chloride 0.65% [[place] Nasal [place]] 1 spray NASAL TID PRN PRN spray.btl 04/06/18 Lancets #100 ea 05/18/18 Test strips #120 ea 05/18/18 diabetic supplies, miscellaneous kit See Dose Instructions .ROUTE .MEDSUPPLY #1 ea 05/18/18 triamterene 75 mg-hydrochlorothiazide 50 mg tablet 1 tab PO DAILY #90 tab 05/28/18 cyclobenzaprine 10 mg tablet 10 mg PO TID PRN #90 tab 06/15/18 Acetaminophen [Arthritis Pain Relief] 650 mg PO PRN PRN 08/10/18 Atenolol [Tenormin (beta feliberto)] 50 mg PO DAILY 08/10/18 Diltiazem CD [Cardizem CD] 180 mg PO Q12 08/10/18 Lisinopril 40 mg PO BID 08/10/18 Mometasone Furoate [Nasonex] 1 spray NASAL DAILY PRN 08/10/18 cholecalciferol (vitamin D3) 50,000 unit capsule 50,000 unit PO QWEEK #10 cap 08/10/18 traMADol [Ultram] 50 mg PO Q4H PRN PRN 7 Days #28 tab 08/11/18 The following prescriptions were given: traMADol [Ultram] 50 mg PO Q4H PRN PRN 7 Days #28 tab PRN Reason: pain Primary Care Physician: Pia Newton MD [Primary Care Provider] - Test Results: Test results from this visit will be discussed in further detail at your follow- up appointment, if applicable. Please Follow Up With: Candi Covington DPM When: Please follow up next week at your previously scheduled post op appointment
--- NOTE | 2018-08-11 10:00 | OP.PCM_ITS ---
Report of Operation Date of Procedure: 08/11/18 Pre-Operative Diagnosis: L open bimalleolar fracture s/p tibiotalar arthrodesis pseudoarthrosis Post-Operative Diagnosis: same Surgery/Procedure Performed:: Left lower extremity external fixation; Left proximal tibia bone marrow aspiration for autologous transfer; injection of Augment injectable early childhood associate teacher: Lexi Thomas Type of Anesthesia:: MAC Description of Procedure: Indications: Pt is a 58 yo F known to me who has undergone several surgueires in an attempt for left lower leg limb salvage after suffering an open bimalleolar fracture in October 2017. She has seen me regularly in clinic for dressing changes and monotiring of her tibiotalar site which on ct scan in May of this year was approximately 30% fused in good position. She presents today for removal of the external fixator, BMAC and Augment injection at the psuedoarthrosis site as part of a staged procedure. She will return to the OR in the next 3-4 weeks for a tibiotalocalcaneal arthrodesis and repeat BMAc and Augment injection to aid in healing and limb salvage. Pt has continued to maintain good blood sugar control, use of bone stimulator and po abx and will continue this as we progress. She had eliminated smoking for several months while in the TCU and works hard to reduce smoking and/or eliminate it as an outside patient. All risks, complications, and alternatives were discussed with the patient, and the patient signed an informed consent. No guarantees were given. Procedure: On 08/11/2018, Kandy Linares was visually and verbally identified in the preoperative holding area. The consent form was again reviewed with the patient, as were all risks, complications, and alternatives and the patient wished to proceed with the proposed surgery. The left lower extremity was marked as the correct operative extremity. The patient was brought to the operating room and placed on the operating room table in the normal SUPINE position. After induction by anesthesia, a surgical time out was performed and all present were in agreement. At this time the left lower extremity was prepped and draped in the usual sterile fashion. At this time attention was directed to the left proximal tibia and a stab incision was just made just medial and distal to the tibial tuberosity. Using the Isto bone marrow aspiration set approximately 60 cc of BMA was drawn and passed off the the field for concentration. The harvest site was closed with 3.0 prolene. Removal of the external fixator was then initiated. Using intra operative fluoroscopy the olive side of each wire was identified. Bolts were loosened as needed. The wires were cut to skin on the non-olive side and then removed without incident from the olive side. The tibial pins were removed with a t handle without incident. The wire and pins sites were then curetted using a fresh curette each for the tibia, ankle and foot sites. Peroxide and bedatine were then used to clean the skin and remove callus build up. The tibial pin sites were closed with 3.0 prolene. The other pins sites were left open. Under intraoperative fluoroscopy the tibiotalar psuedo arthrosis was identified and guidance was used for injection of 2cc of BMAC mixed with 3 cc of Augment Injectible. The remaining 2 cc of BMAC were then injected at the pin sites. The PPP was also injected at the pin sites to aid in reduce of microbes. Dry, sterile dressings were applied and then a well padded short leg plaster cast was applied. The patient tolerated the procedure and anesthesia well. The patient was then transported to the postanesthesia care unit by a member of the anesthesia team and myself with all vital signs stable and neurovascular status of the left lower extremity equal to pre-operative levels. At the end of the case all sponge, needle and instrument counts were found to be correct. Grafts/Implants Used: [employer] Augment injectable, Isto BMAC - Complications none - Admit VTE Documentation VTE Present on Admission: No VTE Mechan Device Prophylaxis: SCD's, Knee High MARLYS Hose VTE Pharm Prophylaxis ordered?: No
[2018-08-11 10:01] LABS: Bedside Glucose 119 mg/dL (70-110)
== END 2018-08-11 11:29 | disposition home or self-care (01) ==
LOC: SDC 06:04 → AC 06:05
PROVIDERS: Family Provider Internal Medicine; PCP Internal Medicine; Referring Provider Podiatrist Foot & Ankle Surgery; Visit Provider Podiatrist Foot & Ankle Surgery
PROC: (CPT 20694; principal; 2018-08-11 07:15)
DX: M96.0 Pseudarthrosis after fusion or arthrodesis (principal); S82.842 Displaced bimalleolar fracture of left lower leg; Y83.8 Other surgical procedures as the cause of abnormal reaction of the patient, or of later complication, without mention of misadventure at the time of the procedure; F17.210 Nicotine dependence, cigarettes, uncomplicated; I89.8 Other specified noninfective disorders of lymphatic vessels and lymph nodes; R60.0 Localized edema; M79.7 Fibromyalgia; N18.3 Chronic kidney disease, stage 3 (moderate); M19.90 Unspecified osteoarthritis, unspecified site; I12.9 Hypertensive chronic kidney disease with stage 1 through stage 4 chronic kidney disease, or unspecified chronic kidney disease; E11.22 Type 2 diabetes mellitus with diabetic chronic kidney disease; J43.9 Emphysema, unspecified; E55.9 Vitamin D deficiency, unspecified; E11.40 Type 2 diabetes mellitus with diabetic neuropathy, unspecified; K21.9 Gastro-esophageal reflux disease without esophagitis; E78.00 Pure hypercholesterolemia, unspecified; F32.9 Major depressive disorder, single episode, unspecified; Z79.899 Other long term (current) drug therapy; Z79.84 Long term (current) use of oral hypoglycemic drugs
CPT/HCPCS: 20694; 38232; 73590; 73600; 73630; 76000; 82962; C1713; J7040; J7120

== ENCOUNTER 2018-09-08 06:18 | Day surgery (SDC) | payer MEDICARE, SELFPAY ==
[2018-08-11 06:44] VITALS: BMI 34.2
[2018-09-04 15:28] VITALS: BMI 34.2
[2018-09-08] VITALS (10 sets, daily range): BP systolic 113–153; BP diastolic 54–80; PULSE 60–94; RESP 16–18; TEMP 36.2–36.7; O2SAT 92–99; BMI 34.2
[2018-09-08 06:55] LABS: Hematocrit 36.8 % (37-47); Hemoglobin 11.9 g/dl (12.0-15.0); Mean Corp Hgb Conc 32.3 g/gl (32-36); Mean Corpuscular Hgb 27.7 pg (27.0-32.0); Mean Corpuscular Volume 85.6 fL (81-99); Mean Platelet Vol. 9.9 fl (6.2-12.0); Platelet Count 272 K/mm3 (150-450); RBC Distribution Width CV 17.7 % (11.6-14.6); RBC Distribution Width SD 54.6 fl (35.1-43.9); White Blood Count 10.2 K/mm3 (4.4-11.0)
[2018-09-08 07:07] LABS: Scan Indicated on CBC? Y/N NO
[2018-09-08 07:09] LABS: Anion Gap 6 (5-15); BUN 71 mg/dL (7-18); Calcium,Total 9.3 mg/dL (8.5-10.1); Chloride 107 mmol/L (98-107); Creatinine, Serum 2.45 mg/dL (0.55-1.02); EST Glomerular Filtration Rate 21 mL/min (>60); Est Glom Filt Rate - Afr Amer 26 mL/min (>60); Glucose 134 mg/dL (74-106); Potassium 5.1 mmol/L (3.5-5.1); Sodium Level 135 mmol/L (136-145)
[2018-09-08 07:31] LABS: Bedside Glucose 166 mg/dL (70-110)
[2018-09-08 08:18] LABS: Hemoglobin A1c 6.3 % (4.2-6.3)
--- NOTE | 2018-09-08 09:30 | RAD_ITS ---
STUDY: X-RAY - LEFT FOOT CLINICAL: Female, 58 years old. Fusion TECHNIQUE: 24 view(s) of the foot. COMPARISON: 08/11/2018 FINDINGS: Fluoroscopy of the left leg and ankle was utilized and operating room and 24 images are submitted for interpretation. RAD/Foot min 3 Views IMPRESSION: Fluoroscopy during surgery. Electronically Signed: Tigre Blackwell MD at 16:20 EDT Tel , Service support ,
[2018-09-08] MEDS: Heparin 10,000 UNITS/10 ML Vial 10000 UNITS (10:30)
[2018-09-08] MEDS: Calcium Chloride 1 GM/10 ML Syringe (10:30)
--- NOTE | 2018-09-08 16:45 | RAD_ITS ---
STUDY: X-RAY - LEFT TIBIA AND FIBULA REASON FOR EXAM: Female, 58 years old. Post op TECHNIQUE: 2 view(s) of the tibia and fibula were obtained. COMPARISON: August 11, 2018 right ankle x-ray FINDINGS: This is an intramedullary anthony demonstrated within the tibia secured by cortical screws. There is a irregular appearance of the fibula and the ankle suggesting prior fracture, possible callus formation and/or history of infection. RAD/Tibia & Fibula 2 Views IMPRESSION: Postoperative changes arthrodesis, chronic changes of the ankle. Electronically Signed: Rosie Salas MD at 22:54 EDT Tel , Service support ,
--- NOTE | 2018-09-08 16:47 | RAD_ITS ---
STUDY: X-RAY - LEFT CALCANEUS REASON FOR EXAM: Female, 58 years old. Post TECHNIQUE: 2 view(s) of the calcaneus were obtained. COMPARISON: 06/02/2018 left foot FINDINGS: There is a cortical screw which is medial to the calcaneus. This is best seen on the [facility] calcaneal view. Intramedullary anthony in the tibia. RAD/Calcaneus min 2 Views IMPRESSION: Findings as detailed above. Electronically Signed: Rosie Salas MD at 22:32 EDT Tel , Service support ,
--- NOTE | 2018-09-08 16:49 | PCM.DC.ORTHO ---
Discharge Activity: May Not Drive, May not drive while taking narcotic pain medications., May Not Shower, Use Walker, Use Crutches Ice area for (Minutes): 20 - 20 minutes of each hour while awake behind left knee Weight Bearing Status: No weight bearing - strict no weightbearing to the left lower extremity, do not use to propel self in wheelchair or rest on ground for standing/sitting down; right leg weightbearing at tolerated Keep extremity elevated above heart level: Operative Extremity Call your doctor if your incision/area has: Sudden Increased Bleeding, Increased Pain/ Swelling Call your doctor if you observe: Fever of 101 or Higher, Inability to urinate, Shortness of breath, Dizziness, Chest pain, Increased palpitations (irregular heartbeat), Calf discomfort, Uncontrolled pain Cleanse incision/area with: Keep Dressing Clean & Dry - Call Dr. Covington if the wound vac starts beeping/flashing red and turning it off and back on does not fix the beeping/flashing red. Allergies/Adverse Reactions: Allergies aspirin Allergy (Verified 09/04/18 15:24) Hives latex Allergy (Verified 09/04/18 15:24) Hives Penicillins Allergy (Verified 09/04/18 15:24) Hives simvastatin Allergy (Verified 09/04/18 15:24) Unknown naproxen [From Aleve] Adverse Reaction (Severe, Verified 09/04/18 15:24) Kidney disease Stage 3 Medications to take at Discharge Amitriptyline HCl 75 mg PO QHS 12/03/16 hydroxychloroquine 200 mg tablet 200 mg PO BID 05/27/17 ipratropium 20 mcg-albuterol 100 mcg/actuation mist for inhalation 1 inh INHALATION Q6H PRN #4 g 08/22/17 Multivit-Min/Iron/Folic/Lutein [Centrum Silver Women Tablet] 1 tab PO DAILY 01/13/18 Doxycycline 100 mg PO BID #60 cap 04/06/18 Sodium Chloride 0.65% [[employer] Nasal [place]] 1 spray NASAL TID PRN PRN spray.btl 04/06/18 Lancets #100 ea 05/18/18 Test strips #120 ea 05/18/18 diabetic supplies, miscellaneous kit See Dose Instructions .ROUTE .MEDSUPPLY #1 ea 05/18/18 triamterene 75 mg-hydrochlorothiazide 50 mg tablet 1 tab PO DAILY #90 tab 05/28/18 cyclobenzaprine 10 mg tablet 10 mg PO TID PRN #90 tab 06/15/18 Acetaminophen [Arthritis Pain Relief] 650 mg PO PRN PRN 08/10/18 Atenolol [Tenormin (beta feliberto)] 50 mg PO DAILY 08/10/18 Diltiazem CD [Cardizem CD] 180 mg PO Q12 08/10/18 Lisinopril 40 mg PO BID 08/10/18 Mometasone Furoate [Nasonex] 1 spray NASAL DAILY PRN 08/10/18 cholecalciferol (vitamin D3) 50,000 unit capsule 50,000 unit PO QWEEK #10 cap 08/10/18 Allopurinol [Zyloprim] 300 mg PO DAILY 09/04/18 alprazolam 0.5 mg tablet 0.5 mg PO DAILY PRN #15 tab 09/04/18 gabapentin 300 mg capsule 300 mg PO TID #270 cap 09/04/18 traMADol [Ultram] 50 mg PO Q4H PRN PRN 7 Days #28 tab 09/08/18 The following prescriptions were given: traMADol [Ultram] 50 mg PO Q4H PRN PRN 7 Days #28 tab PRN Reason: pain Orders to be completed after discharge: Hemoglobin A1c Time Frame: 09/04/18, Location: Laboratory Basic Metabolic Profile (BMP) Time Frame: 09/04/18, Location: Laboratory CBC-Complete Blood Cnt No Diff Time Frame: 09/04/18, Location: Laboratory Primary Care Physician: Pia Newton MD [Primary Care Provider] - Test Results: Test results from this visit will be discussed in further detail at your follow-up appointment, if applicable. Please Follow Up With: Candi Covington DPM When: Please follow up Friday at your previously scheduled post operative appt Proposed Discharge Date: 09/08/18
--- NOTE | 2018-09-08 16:53 | OP.PCM_ITS ---
Report of Operation Date of Procedure: 09/08/18 Pre-Operative Diagnosis: L ankle pseudoarthrosis s/p L bimalleolar open fr acture, Vitamin D deficiency Post-Operative Diagnosis: L ankle pseudoarthrosis s/p L bimalleolar open fracture, Vitamin D deficiency, L equinus Surgery/Procedure Performed:: Left ankle tibiotalocalcaneal arthrodesis; percutaneous tendo Achilles lengthening of the Left achilles, harvest of bone marrow aspiration from right proximal tibia; injection of Augmentin Injectable; application of disposable, incisional NPWT medical billing associate: Teena Russo Type of Anesthesia:: General Estimated Blood Loss (mL): minimal Description of Procedure: Indications: Pt is a 58 yo F undergoing multiple surgeries for left leg limb salvage. Her most recent surgery was the removal of her external fixation with percutaneous injection of Augment Injectable and BMAC in July. She has since been in several SLC which she has not tolerated well. She Has had significant anxiety over the SLC as well as has used the cast to propel herself in her wheelchair. Her ankle pseudoarthrosis has been noted to be less rigid at her outpatient appointments then upon initial external fixation removal. She has resumed smoking 1 ppd since this prior surgery. We discussed at length that her options at this point are somewhat limited. She must quit smoking. She has worked on this in the last week. She was seen by her PCP office last week for anti anxiety medications for this post operative phase. She understands she can not use her SLC to propel herself. She cannot weightbear as it is. She was casted last week for a PTB brace to aid in mobility and support in t he post operative phase. She was again offered the option of a below knee amputation and amputation info rmation At this time she wants to continue with limb slavage. She was offered a second opinion and deferred at this time. She presents today for a tibiotalocalcaneal fusion via an retrograde IM nail with BMAC and Augment. All risks, complications, and alternatives were discussed with the patient, and the patient signed an informed consent. No guarantees were given. Procedure: On 09/08/2018, Kandy Young was visually and verbally identified in the preoperative holding area. The consent form was again reviewed with the patient, as were all risks, complications, and alternatives and the patient wished to proceed with the proposed surgery. The bilateral lower extremities were marked as the correct operative extremity. The patient was brought to the operating room and placed on the operating room table in the normal SUPINE position. After induction by anesthesia, a surgical time out was performed and all present were in agreement. a pneumatic thigh tourniquet was then placed to the LLE, the RLE did not have a tourniquet placed. . At this time the bilateral lower extremities were prepped and draped in the usual sterile fashion. At this time attention was directed to the right proximal tibia just distal to the tibial tuberosity. A stab incision was made and then approximately 50 cc of bone marrow aspiration was drawn for concentration and autologus transfer to the TTC site. The stab incision was closed with a 3.0 prolene and covered with a opsite dressing. At this time attention was directed to the left lower extremity. After elevation and exsanguination with an Esmarch the PTT was inflated to 300mmHg. A curvilinear incision was made at the lateral ankle joint and extended distally to expose the subtalar joint. The incision was bluntly carried deep through the subcutaneous tissues with careful attention paid to all bleeders, which were clamped and tied or bovied as necessary. All vital neurovascular structures were retracted. The soft tissue was noted to be extensively fibrotic and thickened. The talus was noted to be fragmented with signs of absorption with some fusion to the distal tibia. No malodor or purulence or other signs of infection were noted. The subtalar joint was identified and then distracted. Using a combination of curettes, osteotomes, and ronguers the cartilage was removed from the subtalar joint until healthy bleeding bone was noted. The tibiotalocalcaneal alignment was confirmed on AP, lateral and calcaneal axial views. I felt that despite repeated attempts to improve the reduction so that her calcaneus was appropriately under her tibia on the lateral view she was not ideally aligned. I then used a fresh #15 blade to performed a percutaneous ELEDR. With this I was better able to align the structures and her foot was at 90 degrees to the tibia, the 2nd digit was aligned with the tibia crest, and her calcaneus was neutral to slight valgus. I did try to throw temporary fixation to hold this reduction however her talus was very distressed and I felt I could hold the reduction manually while throwing the guide wire for the retrograde IM nail. This was done with satisfactory positioning as confirmed in three views at all levels on intraoperative fluoroscopy. 15 cc of peripheral blood was drawn by anesthesia which was then added to the cancellous chips and a portion of the BMAC. Attention was then turned to the plantar foot. Using a fresh #15 blade a linear incision was made from anterior to proximal just distal to the distal calcaneus/fat pad and inline with the midline of the tibia. The incision was bluntly carried deep through the subcutaneous tissues with careful attention paid to all bleeders, which were clamped and tied or bovied as necessary. All vital neurovascular structures were retracted and Orthofix soft tissue protecters were utilized. Using the Orthofix measuring guide I determined a 300mm nail would be most appropriate to proximally pass her previous tibial pin sites. A 300 mm retrograde IM nail was then placed per discharging machine operator's guidelines using intraoperative fluoroscopy through the technique for positioning, drilling, reaming, nail placement as well as screw placement and length confirmation. External compression of approximately 3mm was achieved via the jig. Overall good apposition of the TTC fusion sites was noted. I then placed the cancellous chip mixture of BMAC and peripheral blood into any gapping at the fusion site. A tamp and mallet was used. I then injected the BMAC and Augmentin Injectable into the fusion sites. Deep soft tissue was closed with 2.0 vicryl, subcutaneous tissues were closed with 3.0 vicryl and skin was closed with 2.0 or 3.0 prolene. A umu incisional vac was placed over the lateral incision with a good seal noted and maintained, betadine soaked adaptic was placed over the other incisions. Dry, sterile dressings were then applied. A multi-layer compressive dressing was then placed to aid in the reduction of edema andpain and to aid in stability. A 5 inch x 30 inch posterior splint was then placed. Total tourniquet time was 240 minutes. The tourniquet was deflated after intervals of 120 minutes with immediate capillary refill noted to all digits upon deflation. A period of > 30 minutes was utilized between the first deflation and the next inflation. No Esmarch was used for the second inflation. Intra operative fluoroscopy was utilized throughout the case, > 1 hour, to aid in visualization and confirmation of TTC reduction, nail positioning, reaming, screw placement and length determination. Interpretation of the images was vital to my decision making process. The patient tolerated the procedure and anesthesia well. The patient was then transported to the postanesthesia care unit by a member of the anesthesia team and myself with all vital signs stable and neurovascular status of the bilateral lower extremities equal to pre-operative levels. At the end of the case all sponge, needle and instrument counts were found to be correct. Post operative radiographs were reviewed in the PACU and I felt her P to A calcaneal screw was not placed ideally. We discussed her radiographs and the significance of this screw and its current positioning in depth. She agreed to stay for observation and return to the operating room tomorrow for revision, to include hardware removal, revision of the IM nail/screws, external fixation placement and or any other internal or external fixation needed for stability and limb salvage. Grafts/Implants Used: Orthofix DARWIN nail 300; [place] MedAugment Injectable; Isto BMAC; umu NPWT - Complications none - Admit VTE Documentation VTE Present on Admission: No VTE Mechan Device Prophylaxis: None VTE Pharm Prophylaxis ordered?: Yes
--- NOTE | 2018-09-08 17:00 | RAD_ITS ---
STUDY: X-RAY - LEFT ANKLE REASON FOR EXAM: Female, 58 years old. Postop left IM nail TTC fusion TECHNIQUE: 3 view(s) of the ankle. COMPARISON: 08/11/2018 FINDINGS: Intramedullary anthony of the distal mid tibia extending into the calcaneus with 2 distal interlocking screws. Remodeling off distal tibia, distal fibula, hindfoot with hypertrophic changes, absent tibial and fibular epiphyses, distal fibular metaphyses. Osseous defects consistent with previous hardware devices. Juxta-articular osteopenia. Large spur and small enthesophyte of the calcaneus. Osseous bridging along the proximal metatarsi. Soft tissue swelling and soft tissue calcification. RAD/Ankle min 3 Views IMPRESSION: Postsurgical changes post arthrodesis. Electronically Signed: Devika Lyons MD at 6:32 EDT , Service support ,
--- NOTE | 2018-09-08 17:01 | RAD_ITS ---
STUDY: X-RAY - RIGHT TIBIA AND FIBULA REASON FOR EXAM: Female, 58 years old. Postop TECHNIQUE: 2 view(s) of the tibia and fibula were obtained. COMPARISON: None. FINDINGS: There is a focus of 2 lucencies within the tibia compatible with removal of hardware. Normal visualized fibula. There are vascular calcifications. Hardware is been removed. RAD/Tibia & Fibula 2 Views IMPRESSION: Status post removal of hardware. No visualized acute fracture. Electronically Signed: Rosie Salas MD at 22:51 EDT Tel , Service support ,
--- NOTE | 2018-09-08 20:02 | CT_ITS ---
Comparison: X-ray tibia-fibula September 08, 2018. X-ray ankle June 02, 2018. Multiple CT images were obtained of the left lower extremity. No contrast was administered. FINDINGS: The external fixation devices been removed. There is an intramedullary anthony traversing through the tibiotalar joint extending through the calcaneus with the tip just beyond the inferior calcaneal surface. Stable appearing posttraumatic changes at the ankle joint with heterotopic calcification and fractures similar in appearance. Subcutaneous gas is present along the anthony insertion trajectory. There is mild diffuse soft tissue swelling. CT/Extremity Lower without Contra IMPRESSION: Intramedullary anthony internal fixation of the tibiotalar joint with chronic posttraumatic changes as described above. Electronically Signed: Sebas Holbrook, at 21:33 EDT Tel , Service support ,
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
[2018-09-08] MEDS: Amitriptyline 25 MG Tablet 75 MG PO (22:57)
[2018-09-08] MEDS: Lisinopril 40 MG Tablet PO (22:57)
[2018-09-08] MEDS: Heparin Injection (Vial) 5,000 UNIT/ML VIAL 5000 UNIT SC (22:58)
[2018-09-08] MEDS: Doxycycline 100 MG CAPSULE PO (22:58)
[2018-09-08] MEDS: dilTIAZem CD 180 MG Capsule PO (22:58)
[2018-09-08] MEDS: Insulin Lispro 100 UNIT/ML INSULN.PEN SQ (23:05)
[2018-09-08 23:21] LABS: Bedside Glucose 184 mg/dL (70-110)
[2018-09-09] VITALS (10 sets, daily range): BP systolic 90–161; BP diastolic 54–84; PULSE 73–98; RESP 14–18; TEMP 36.1–37.1; O2SAT 75–100; BMI 34.2
[2018-09-09] MEDS: 0.9% Normal Saline 1,000 ML 100 ML IV (00:19)
[2018-09-09] MEDS: Insulin Lispro 100 UNIT/ML INSULN.PEN SQ ×2 (06:20→16:14)
[2018-09-09 06:35] LABS: Bedside Glucose 151 mg/dL (70-110)
--- NOTE | 2018-09-09 07:52 | CPS ---
Pt refused Incentive Spirometry. R.T. reinforced importance of taking deep breaths, pt says she will do that on her own.
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
--- NOTE | 2018-09-09 08:55 | RAD_ITS ---
STUDY: X-RAY - LEFT ANKLE REASON FOR EXAM: Female, 58 years old. Surgery TECHNIQUE: 6 view(s) of the ankle. COMPARISON: 09/08/2018 FINDINGS: Fluoroscopy of the left ankle was utilized and operating room and 6 images made of for interpretation. RAD/Ankle 2 Views IMPRESSION: Fluoroscopy during surgery. Electronically Signed: Tigre Blackwell MD at 12:16 EDT Tel , Service support ,
[2018-09-09] MEDS: Vancomycin IV 1,000 MG/200 ML BAG 200 MG IV (09:29)
--- NOTE | 2018-09-09 12:46 | RAD_ITS ---
STUDY: X-RAY - LEFT ANKLE REASON FOR EXAM: Female, 58 years old. Surgery TECHNIQUE: 2 view(s) of the ankle. COMPARISON: 09/08/2018 FINDINGS: Status post tibiotalar arthrodesis with a long intramedullary anthony in interval removal of the screws in the calcaneus. Structures of the distal aspect of the fibula which is unchanged likely related to prior trauma. 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 Normal visualized talus and calcaneus. The visualized subtalar, talonavicular, calcaneocuboid and tarsal articulations are normal. The soft tissue structures are unremarkable. RAD/Ankle 2 Views IMPRESSION: Interval removal calcaneal screw from tibiotalar joint arthrodesis with an intramedullary anthony. Electronically Signed: Tigre Blackwell MD at 14:16 EDT Tel , Service support ,
--- NOTE | 2018-09-09 12:49 | PCM.OPRPT ---
Report of Operation Date of Procedure: 09/09/18 Pre-Operative Diagnosis: L malposition of calcaneal screw Post-Operative Diagnosis: L malposition of calcaneal screw; Surgery/Procedure Performed:: L hardware removal, deep; application of NPWT Description of Surgical Findings:: see dictation octave board racker: Inez Mondragon Type of Anesthesia:: MAC Estimated Blood Loss (mL): minimal Description of Procedure: Indications: Pt is a 58 yo F who has undergone multiple procedure for LLE limb salvage, most recent was yesterday for a TTC arthrodesis with retrograde IM nail fixation. While extensive intraoperative fluoroscopy was utilized through the case, it was not noted until radiographs in PACU were performed that the P to A screw of the calcaneus was not in satisfactory position. This was discussed with the patient and she was agreeable to observation given the long day of surgery and to return to the OR the following day. We discussed multiple options and she presents today for surgery. All risks, complications, and alternatives were discussed with the patient, and the patient signed an informed consent. No guarantees were given. Procedure: On 09/09/2018, Kandy Young was visually and verbally identified in the preoperative holding area. The consent form was again reviewed with the patient, as were all risks, complications, and alternatives and the patient wished to proceed with the proposed surgery. The left lower extremity was marked as the correct operative extremity. The patient was brought to the operating room and placed on the operating room table in the normal SUPINE position. After induction by anesthesia, a surgical time out was performed and all present were in agreement.At this time the left lower extremity was prepped and draped in the usual sterile fashion . No tourniquet was applied. At this time attention was directed to the posterior heel. The suture was removed. The P-to-A screw was identified on fluoroscopy was removed without incident. Prior to surgery I did have a CT performed to confirm location of the screw and position of the IM nail. I did measure the screw length that was in and out of the calcaneus. I felt that given her numerous ghost holes from both my prior external fixation and the outside physician's external fixation to revise this IM nail by rotating the nail would further impair the integrity of the of the tibia with additional drill holes. For this reason, I felt that an attempt at a shorter screw was prudent. I did attempt this and the alignment with the screw hole in the nail was not maintained. I then attempted to remove the screw however had difficulty with this. Multiple attempts were made from the initial posterior stab incision to retrieve the screw with a variety of instrumentation. When this could not be done successfully, I used a sterile doppler to identify and dillon the PT artery and used intraoperative fluoroscopy to idllon of the location of the screw from the medial foot. I then used a #15 blade to make a linear incision over the medial hindfoot.The incision was bluntly carried deep through the subcutaneous tissues with careful attention paid to all bleeders, which were clamped and tied or bovied as necessary. All vital neurovascular structures were retracted. The head of the screw was identified and the screw was removed. The incision was flushed with copious amounts of normal sterile saline as was the posterior stab incision. 2.0 prolene was used for skin closure. A umu incisional NPWT system was again placed over the lateral wound, a good seal was noted. betadine soaked adaptic and dry sterile dressings were placed over the incisions. A multilayer compression dressing was then placed to aid in the reduction of edema nad gabby nand to aid in stability. a well padded posterior splint was then placed. Intra operative fluoroscopy was utilized throughout the case, > 1 hour, to aid in visualization of hardware removal and placement. Interpretation of the images was vital to my decision making process. The patient tolerated the procedure and anesthesia well. The patient was then transported to the postanesthesia care unit by a member of the anesthesia team and myself with all vital signs stable and neurovascular status of the left lower extremity equal to pre-operative levels. At the end of the case all sponge, needle and instrument counts were found to be correct. Grafts/Implants Used: umu incisional vac - Complications none - Admit VTE Documentation VTE Present on Admission: No VTE Pharm Prophylaxis ordered?: Yes
--- NOTE | 2018-09-09 13:00 | RAD_ITS ---
STUDY: X-RAY - LEFT TIBIA AND FIBULA REASON FOR EXAM: Female, 58 years old. Surgery TECHNIQUE: 2 view(s) of the tibia and fibula were obtained. COMPARISON: 09/08/2018 FINDINGS: Status post tibiotalar joint arthrodesis with a long intramedullary anthony. Destruction of the distal fibula likely related to prior trauma which is unchanged. 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 The soft tissue structures are unremarkable. RAD/Tibia & Fibula 2 Views IMPRESSION: Status post tibiotalar joint arthrodesis with a long intramedullary anthony. Electronically Signed: Tigre Blackwell MD at 14:14 EDT Tel , Service support ,
--- NOTE | 2018-09-09 13:29 | SUR.PHASEI ---
UPON ARRIVAL TO PACU PT WAS UNCOOPERATIVE, TRYING TO CRAWL OUT OF BED, PULLING AT IV AND MONITOR EQUIPEMENT. ANESTHESTIA AT BEDSIDE. MEDICATED WITH ATIVAN. AT ABOUT 1300 PT STARTED TO BECOME COOPERATIVE.
[2018-09-09] MEDS: Allopurinol 300 MG Tablet PO (13:58)
[2018-09-09] MEDS: Hydroxychloroquine 200 MG Tablet PO ×2 (13:58→16:09)
[2018-09-09] MEDS: Multivitamins,Ther W-Minerals Tablet 1 TABLET PO (13:58)
[2018-09-09] MEDS: Gabapentin 300 MG Capsule PO ×2 (13:58→16:09)
[2018-09-09] MEDS: dilTIAZem CD 180 MG Capsule PO (14:00)
[2018-09-09] MEDS: Lisinopril 40 MG Tablet PO (14:01)
[2018-09-09] MEDS: Doxycycline 100 MG CAPSULE PO (14:01)
[2018-09-09] MEDS: Atenolol 50 MG Tablet PO (14:01)
[2018-09-09] MEDS: Heparin Injection (Vial) 5,000 UNIT/ML VIAL 5000 UNIT SC (14:08)
[2018-09-09 14:11] LABS: Bedside Glucose 131 mg/dL (70-110)
[2018-09-09 16:20] LABS: Bedside Glucose 190 mg/dL (70-110)
== END 2018-09-09 17:31 | disposition home or self-care (01) ==
LOC: SDC 06:19 → AC 06:21 → MS3 15:05
PROVIDERS: Family Provider Internal Medicine; PCP Internal Medicine; Referring Provider Podiatrist Foot & Ankle Surgery; Visit Provider Podiatrist Foot & Ankle Surgery
PROC: (CPT 27870; principal; 2018-09-08 09:15)
DX: M96.0 Pseudarthrosis after fusion or arthrodesis (principal); S82.842B Displaced bimalleolar fracture of left lower leg, initial encounter for open fracture type I or II; E55.9 Vitamin D deficiency, unspecified; X58.XXXA Exposure to other specified factors, initial encounter; Y93.9 Activity, unspecified; Y92.9 Unspecified place or not applicable; Y83.8 Other surgical procedures as the cause of abnormal reaction of the patient, or of later complication, without mention of misadventure at the time of the procedure; Y79.3 Surgical instruments, materials and orthopedic devices (including sutures) associated with adverse incidents; F17.210 Nicotine dependence, cigarettes, uncomplicated; F41.9 Anxiety disorder, unspecified; G47.30 Sleep apnea, unspecified; M10.9 Gout, unspecified; E11.22 Type 2 diabetes mellitus with diabetic chronic kidney disease; E11.52 Type 2 diabetes mellitus with diabetic peripheral angiopathy with gangrene; E11.42 Type 2 diabetes mellitus with diabetic polyneuropathy; I12.9 Hypertensive chronic kidney disease with stage 1 through stage 4 chronic kidney disease, or unspecified chronic kidney disease; N18.3 Chronic kidney disease, stage 3 (moderate); J44.9 Chronic obstructive pulmonary disease, unspecified; E66.9 Obesity, unspecified; E11.69 Type 2 diabetes mellitus with other specified complication; M32.9 Systemic lupus erythematosus, unspecified; M06.4 Inflammatory polyarthropathy; Z79.899 Other long term (current) drug therapy; E78.5 Hyperlipidemia, unspecified
CPT/HCPCS: 01170; 01480; 20680; 27870; 28725; 38232; 73590; 73600; 73610; 73630; 73650; 73700; 76000; 80048; 82962; 83036; 85027; 99406; C1713; C1776; J7030; J7040; J7120; J2405

== ENCOUNTER → 2018-09-25 | Outpatient (CLI) | payer MEDICARE, SELFPAY ==
[2018-09-09 08:10] VITALS: BMI 34.2
== END | disposition home or self-care (01) ==
LOC: LAB 12:22
PROVIDERS: Family Provider Internal Medicine; PCP Internal Medicine; Referring Provider Podiatrist Foot & Ankle Surgery; Visit Provider Podiatrist Foot & Ankle Surgery
DX: M96.0 Pseudarthrosis after fusion or arthrodesis (principal)
CPT/HCPCS: 87070; 87075; 87077; 87184; 87186; 87205

== ENCOUNTER → 2018-10-08 | Outpatient (CLI) | payer MEDICARE, SELFPAY ==
[2018-09-09 08:10] VITALS: BMI 34.2
[2018-10-08 16:33] LABS: Protein, Urine (Random) 72.7 mg/dL (<11.9); Protein:Creat Ratio 1367 mg/g CRE (0-200)
[2018-10-08 16:51] LABS: Hemoglobin 9.8 g/dl (12.0-15.0); Mean Corp Hgb Conc 31.6 g/gl (32-36); Mean Corpuscular Hgb 27.1 pg (27.0-32.0); Mean Corpuscular Volume 85.6 fL (81-99); Mean Platelet Vol. 9.3 fl (6.2-12.0); Neutrophil % 61.2 % (47-70); POSITIVE COUNT NO; POSITIVE DIFFERENTIAL NO; POSITIVE MORPHOLOGY NO; Platelet Count 301 K/mm3 (150-450); RBC Distribution Width CV 16.9 % (11.6-14.6); RBC Distribution Width SD 53.4 fl (35.1-43.9); Red Blood Count 3.62 M/mm3 (4.2-5.4)
[2018-10-08 16:52] LABS: ALB/GLOB Ratio 0.5 RATIO (0.9-2.4); AST(SGOT) 8 U/L (15-37); Absolute Lymphocyte Count 2.21 X10^3/ul (0.83-4.51); Absolute Neutrophil Count 5.5 X10^3/uL (2.0-7.7); Alanine Aminotransfer ALT/SGPT 12 U/L (13-56); Albumin, Serum 2.7 g/dL (3.2-5.0); Alkaline Phosphatase 136 U/L (45-117); Anion Gap 11 (5-15); BUN 98 mg/dL (7-18); BUN/Creat Ratio 28.1 RATIO (10-20); Basophil# 0.02 X10^3/uL; Basophil% 0.2 % (0-1); Calcium,Total 9.2 mg/dL (8.5-10.1); Chloride 105 mmol/L (98-107); Creatinine, Serum 3.49 mg/dL (0.55-1.02); EST Glomerular Filtration Rate 14 mL/min (>60); Eosinophil# 0.42 X10^3/uL; Eosinophils% 4.7 % (0-5); Est Glom Filt Rate - Afr Amer 17 mL/min (>60); Glucose 116 mg/dL (74-106); Lymphocyte # 2.21 X10^3/ul (4.0); Lymphocyte % 24.6 % (19-41); Magnesium 2.6 mg/dL (1.6-2.6); Monocyte# 0.77 X10^3/uL; Monocyte% 8.6 % (0-10); Phosphorus 6.7 mg/dL (2.5-4.9); Potassium 5.2 mmol/L (3.5-5.1); Protein, Total 7.7 g/dL (6.4-8.2); Sodium Level 135 mmol/L (136-145); Uric Acid 4.9 mg/dL (2.6-6.0)
[2018-10-08 16:58] LABS: PTHIN 70.3 pg/mL (18.4-80.1); Vitamin D,25 Hydroxy 38.6 ng/mL (29.95-100.01)
== END | disposition home or self-care (01) ==
LOC: LAB 15:17
PROVIDERS: Family Provider Internal Medicine; PCP Internal Medicine; Referring Provider Internal Medicine Nephrology; Visit Provider Internal Medicine Nephrology
DX: M06.4 Inflammatory polyarthropathy (principal); M79.7 Fibromyalgia; M32.9 Systemic lupus erythematosus, unspecified; M10.9 Gout, unspecified; K76.0 Fatty (change of) liver, not elsewhere classified; E11.22 Type 2 diabetes mellitus with diabetic chronic kidney disease; N18.3 Chronic kidney disease, stage 3 (moderate); G47.33 Obstructive sleep apnea (adult) (pediatric); E78.5 Hyperlipidemia, unspecified; E13.51 Other specified diabetes mellitus with diabetic peripheral angiopathy without gangrene; J44.9 Chronic obstructive pulmonary disease, unspecified; E55.9 Vitamin D deficiency, unspecified; Z13.0 Encounter for screening for diseases of the blood and blood-forming organs and certain disorders involving the immune mechanism; N05.1 Unspecified nephritic syndrome with focal and segmental glomerular lesions
CPT/HCPCS: 36415; 80053; 82306; 82570; 83735; 83970; 84100; 84156; 84550; 85025; 85027

== ENCOUNTER → 2018-11-13 | Outpatient (CLI) | payer MEDICARE, SELFPAY ==
[2018-10-09 10:05] VITALS: BMI 34.2
--- NOTE | 2018-11-13 10:47 | VDLE_ITS ---
Reason For Study: PAIN Procedure LEFT Exam performed in department. GSV is normal. A preliminary report was called and/or faxed CFV is compressible, spontaneous, phasic, to C. competent, and demonstrates normal augmentation. FV is compressible, spontaneous, phasic, competent and demonstrates normal augmentation. POP V is compressible, spontaneous, phasic, competent and demonstrates normal augmentation. T/P Trunk is compressible. PTV is compressible. LT PerV is compressible. Interpretation Summary Deep veins of the left lower extremity are patent and compressible segmentally. There is no evidence of left lower extremity deep vein thrombosis. Valvular competence appears intact within the proximal deep venous system on the left . The left great saphenous vein appears patent and compressible segmentally. Ordering Physician: Candi Covington Referring Physician: Pia Newton Performed By: Kathleen Jefferson, MIRANDA, RVT
[2018-11-13 12:00] LABS: Anion Gap 7 (5-15); BUN 53 mg/dL (7-18); BUN/Creat Ratio 24.9 RATIO (10-20); CPK Total, Creatine Kinase 18 U/L (26-192); Calcium,Total 9.4 mg/dL (8.5-10.1); Chloride 106 mmol/L (98-107); Creatinine, Serum 2.13 mg/dL (0.55-1.02); EST Glomerular Filtration Rate 25 mL/min (>60); Est Glom Filt Rate - Afr Amer 30 mL/min (>60); Glucose 159 mg/dL (74-106); Potassium 4.3 mmol/L (3.5-5.1); Sodium Level 138 mmol/L (136-145)
== END | disposition home or self-care (01) ==
PROVIDERS: Family Provider Internal Medicine; PCP Internal Medicine; Referring Provider Podiatrist Foot & Ankle Surgery; Visit Provider Podiatrist Foot & Ankle Surgery
DX: N18.3 Chronic kidney disease, stage 3 (moderate) (principal); M79.662 Pain in left lower leg
CPT/HCPCS: 36415; 80048; 82550; 93971

== ENCOUNTER 2018-11-23 16:23 | Emergency (ER) | payer MEDICARE, SELFPAY ==
[2018-10-09 10:05] VITALS: BMI 34.2
[2018-11-23 16:24] VITALS: BP 86/46; PULSE 73; RESP 17; TEMP 36.8; O2SAT 99; BMI 30.8
[2018-11-23 16:45] VITALS: BP 107/57
--- NOTE | 2018-11-23 16:58 | ED.DCSUM_ITS ---
History of Present Illness Informant: Patient Onset: Weeks - 1 Context: Gradual Onset Timing: Continuous Current Severity: Mild Narrative: Patient is a 58-year-old female with history of diabetes mellitus, fibromyalgia, peripheral neuropathy, left ankle fracture with complicated course including need for skin graft presenting with worsening wound over her left ankle. Patient states that is been worsening over the past week. Patient states she does have associated pain. She denies any fever or chills. She was seen by her wildlife ecology professor today, Dr. Covington who did x-rays, wrapped her leg and told her she needed to go to the emergency room because the wound was infected. Patient states she had a swab performed last week by Dr. Elmore in [place] and that her swab tested positive for Pseudomonas. Patient denies any systemic symptoms such as fever, chills, nausea, vomiting, abdominal pain, rash, chest pain or shortness of breath. <Juana Hollingsworth - Last Filed: 11/23/18 16:58> <Shahbaz Garcia - Last Filed: 11/23/18 20:00> Chief Complaint: Lower Extremity Injury Past Medical History Prior records reviewed: Yes Surgical History: - - Left ankle ORIF Smoking Status: Current every day smoker - Family History Maternal Family History: Family History (Last Reviewed 10/09/18 @ 10:03 by Patricia Hanks) Mother Diabetes Hypertension CVA (cerebral vascular accident) Brother Alcoholism Sister Cancer Father Heart disease Respiratory disease Family History: Reports: - Paternal Family History: Family History (Last Reviewed 10/09/18 @ 10:03 by Patricia Hanks) Mother Diabetes Hypertension CVA (cerebral vascular accident) Brother Alcoholism Sister Cancer Father Heart disease Respiratory disease Family History: Reports: - <Juana Hollingsworth - Last Filed: 11/23/18 16:58> - Family History Maternal Family History: Family History (Last Reviewed 10/09/18 @ 10:03 by Patricia Hanks) Mother Diabetes Hypertension CVA (cerebral vascular accident) Brother Alcoholism Sister Cancer Father Heart disease Respiratory disease Paternal Family History: Family History (Last Reviewed 10/09/18 @ 10:03 by Patricia Hanks) Mother Diabetes Hypertension CVA (cerebral vascular accident) Brother Alcoholism Sister Cancer Father Heart disease Respiratory disease <Shahbaz Garcia - Last Filed: 11/23/18 20:00> - Allergies and Home Meds Allergies/Adverse Reactions: Allergies aspirin Allergy (Verified 11/23/18 16:27) Hives latex Allergy (Verified 11/23/18 16:27) Hives Penicillins Allergy (Verified 11/23/18 16:27) Hives simvastatin Allergy (Verified 11/23/18 16:27) Unknown naproxen [From Aleve] Adverse Reaction (Severe, Verified 11/23/18 16:27) Kidney disease Stage 3 Primary Care Physician: Pia Newton MD [Primary Care Provider] - Review of Systems All systems negative except as indicated Musculoskeletal: Reports: Arthralgias - left foot/ankle Skin: Reports: Wounds - left ankle <Juana Hollingsworth - Last Filed: 11/23/18 16:58> Physical Exam Vital Signs/Narrative: Vital Signs Temp Pulse Resp BP Pulse Ox 11/23/18 16:45 107/57 L 11/23/18 16:24 98.2 F 73 17 86/46 L 99 Inital Vital Signs reviewed: Yes General: Well nourished, Well developed, No Acute Distress Head: Normocephalic, Atraumatic Eyes: Perrl, EOMI ENT: Moist mucous membranes, No rhinorrhea Neck: Supple, Nontender Cardiovascular: Regular rate, Regular rhythm, No murmurs Respiratory: No distress, Chest nontender Abdomen: Soft, Nontender, Nondistended Back: Nontender, Normal Inspection Extremities: Tenderness - left foot/ankle, Edema - foot. Negative for: Calf Tenderness - Instability of the left ankle, chronic per patient, dopplerable DP pulse?left Skin: Normal color, No rash, - - 2 open wounds, anterior aspect of left ankle, no active drainage or skin surrounding erythema, each is approximately 0.5 cm; chronic skin changes and thickening of the left foot Neurological: Alert, Oriented x3, Cranial nerves II-XII grossly intact, Normal Strength. Negative for: Normal Sensation - Creased sensation of the left foot diffusely, patient states it is chronic from her peripheral neuropathy Psychological: Normal affect, Normal Mood <Juana Hollingsworth - Last Filed: 11/23/18 16:58> Vital Signs/Narrative: Vital Signs Temp Pulse Resp BP Pulse Ox 11/23/18 18:14 75 16 124/64 H 99 11/23/18 16:45 107/57 L 11/23/18 16:24 98.2 F 73 17 86/46 L 99 <Shahbaz Garcia - Last Filed: 11/23/18 20:00> Diagnostic/Tx/Re-eval Laboratory Tests 11/23/18 11/23/18 11/23/18 Range/Units 17:30 17:15 17:15 WBC 13.9 H (4.4-11.0) K/mm3 RBC 3.11 L (4.2-5.4) M/mm3 Hgb 8.3 L (12.0-15.0) g/dL Hct 27.1 L (37-47) % MCV 87.1 (81-99) fL MCH 26.7 L (27.0-32.0) pg MCHC 30.6 L (32-36) g/dL RDW Std Deviation 50.7 H (35.1-43.9) fl RDW Coeff of Racheal 15.9 H (11.6-14.6) % Plt Count 461 H (150-450) K/mm3 MPV 9.2 (6.2-12.0) fl Immature Gran % (Auto) 1.400 H (0.0-0.9) % Neut % (Auto) 73.7 H (47-70) % Lymph % (Auto) 13.9 L (19-41) % [facility] % (Auto) 8.9 (0-10) % Eos % (Auto) 1.7 (0-5) % Baso % (Auto) 0.4 (0-1) % Absolute Neuts (auto) 10.2 H (2.0-7.7) X10^3/uL Absolute Lymphs (auto) 1.93 (0.83-4.51) X10^3/uL Nucleated RBC % 0 (0-5) % ESR 81 H (0-30) mm/hr Sodium 135 L (136-145) mmol/L Potassium 4.8 (3.5-5.1) mmol/L Chloride 104 (98-107) mmol/L Carbon Dioxide 19.0 L (21.0-32.0) mmol/L Anion Gap 12 (5-15) BUN 71 H (7-18) mg/dL Creatinine 3.38 H (0.55-1.02) mg/dL Estim Creat Clear Calc 16.57 ml/min Est GFR (MDRD) Af Amer 18 L (>60) mL/min Est GFR (MDRD) Non-Af 15 L (>60) mL/min BUN/Creatinine Ratio 21.0 H (10-20) RATIO Glucose 94 (74-106) mg/dL Lactic Acid 0.7 (0.4-2.0) mmol/L Calcium 9.7 (8.5-10.1) mg/dL C-React Prot Ext Range 408.00 H (0.0-3.0) mg/L - Medical Decision Making Seen and evaluated independently and in conjunction with physician radiology practitioner assistant. Agree with notes above unless documented otherwise. Labs are consistent with infection, and probable osteomyelitis. This wound has become deeper, has cultured out Pseudomonas, and it appears it is down the fascial layers, as well as the patient having pain up into her calf with tenderness there. I am concerned that she may need surgical intervention. I discussed with her wildlife ecology professor Dr. Covington, who does not disagree, and states that she needs antibiotics to cover Pseudomonas based on the sensitivities of the culture which were sent with her, but she no longer has privileges any surgery here because she is leaving the practice this week. She is already transitioned the patient's care over to Dr. Elmore, who apparently accepted the patient to [facility] for further care, he has already seen the patient as an outpatient and was the one who actually did the cultures that grew out Pseudomonas. However he was not immediately available because it was after hours, and either with Dr. Covington initially. I was eventually able to discuss with both of these physicians, she is excepted to [facility] and I also spoke with hospitalist Dr. Hernadez, who agrees to take her. Transport being arranged. We initially gave her ceftriaxone, thinking that ceftaz that the Pseudomonas was sensitive to was a third-generation, but then realized that it is a fourth- generation so we are ordering her a dose of cefepime, which is this hospital is fourth-generation cephalosporin on formulary. Her pain is under control and she is clinically well and stable. She initially had some low blood pressures but these came up with fluids. <Shahbaz Garcia - Last Filed: 11/23/18 20:00> ED Disposition <Juana Hollingsworth - Last Filed: 11/23/18 16:58> <Shahbaz Garcia - Last Filed: 11/23/18 20:00> - Plan for ED Patient: Disposition: Acute Care Hospital - Other Diagnosis: Osteomyelitis of left ankle, Charcot foot due to diabetes mellitus Referrals: Pia Newton MD [Primary Care Provider] -
[2018-11-23] MEDS: Morphine 4 MG/ML Syringe IV (17:32)
[2018-11-23 17:46] LABS: Absolute Lymphocyte Count 1.93 X10^3/uL (0.83-4.51); Absolute Neutrophil Count 10.2 X10^3/uL (2.0-7.7); Basophil# 0.06 X10^3/uL; Basophil% 0.4 % (0-1); Eosinophil# 0.23 X10^3/uL; Eosinophils% 1.7 % (0-5); Hematocrit 27.1 % (37-47); Hemoglobin 8.3 g/dL (12.0-15.0); Lymphocyte # 1.93 X10^3/ul (4.0); Lymphocyte % 13.9 % (19-41); Mean Corp Hgb Conc 30.6 g/dL (32-36); Mean Corpuscular Hgb 26.7 pg (27.0-32.0); Mean Corpuscular Volume 87.1 fL (81-99); Mean Platelet Vol. 9.2 fl (6.2-12.0); Monocyte# 1.23 X10^3/uL; Monocyte% 8.9 % (0-10); NRBC Flagged by Analyzer 0 % (0-5); Neutrophil # 10.22 X10^3/uL (2.7-7.7); Neutrophil % 73.7 % (47-70); Platelet Count 461 K/mm3 (150-450); RBC Distribution Width CV 15.9 % (11.6-14.6); RBC Distribution Width SD 50.7 fl (35.1-43.9); Red Blood Count 3.11 M/mm3 (4.2-5.4); White Blood Count 13.9 K/mm3 (4.4-11.0)
[2018-11-23 18:00] LABS: Anion Gap 12 (5-15); BUN 71 mg/dL (7-18); Calcium,Total 9.7 mg/dL (8.5-10.1); Chloride 104 mmol/L (98-107); Creatinine, Serum 3.38 mg/dL (0.55-1.02); EST Glomerular Filtration Rate 15 mL/min (>60); Est Glom Filt Rate - Afr Amer 18 mL/min (>60); Estimated Creatinine Clearance 16.57 ml/min; Glucose 94 mg/dL (74-106); Potassium 4.8 mmol/L (3.5-5.1); Sodium Level 135 mmol/L (136-145)
[2018-11-23 18:01] LABS: Erythrocyte Sedimentation Rate 81 mm/hr (0-30)
[2018-11-23 18:04] LABS: Lactic Acid 0.7 mmol/L (0.4-2.0)
[2018-11-23] MEDS: Ceftriaxone 1 GM/50 ML BAG IV (18:12)
[2018-11-23 18:14] VITALS: BP 124/64; PULSE 75; RESP 16; O2SAT 99
[2018-11-23 20:56] VITALS: BP 115/68; PULSE 68; RESP 16; TEMP 36.6; O2SAT 97
[2018-11-23 21:59] VITALS: BP 115/68; PULSE 68; RESP 16; O2SAT 97
== END 2018-11-23 21:18 | disposition short-term general hospital (02) ==
PROVIDERS: Emergency Provider Emergency Medicine; Family Provider Internal Medicine; PCP Internal Medicine
DX: M86.9 Osteomyelitis, unspecified (principal); E11.610 Type 2 diabetes mellitus with diabetic neuropathic arthropathy; M79.7 Fibromyalgia; E11.42 Type 2 diabetes mellitus with diabetic polyneuropathy; Z79.899 Other long term (current) drug therapy; F17.200 Nicotine dependence, unspecified, uncomplicated
CPT/HCPCS: 80048; 83605; 85025; 85652; 86140; 87040; 96361; 96365; 96367; 96374; 96375; 99284; J7040; J7050; A4216

== ENCOUNTER 2018-12-04 10:50 | Emergency (ER) | payer MEDICARE, SELFPAY ==
[2018-12-04 10:50] VITALS: BP 143/77; PULSE 81; RESP 16; TEMP 37; O2SAT 98; BMI 30.8
--- NOTE | 2018-12-04 12:35 | CM.ED ---
SOCIAL WORK INFORMANT: DARCIE DOYLE REASON FOR REFERRAL: DISCHARGE PLANNING/RESOURCES LIVING SITUATION: PATIENT LIVES HOME WITH MOTHER AND SON IN A [place] ST[place] HOME SUPPORTS: TIFFANIE CAMPBELL PIGGYBACK CLERK IS DAVID CHAPMAN. ASSESSMENT: PATIENT STATES WAS D/C'ED FROM [facility] IN [place], [place] YESTERDAY. PATIENT STATES HOME HEALTH THAT SHE WAS SET UP WITH REFUSES TO COME INTO THE HOME D/T HER SON. PATIENT REPORTS SON IS AN UNCONTROLLED SCHIZOPHRENIC. PATIENT ALSO REPORTS ISSUES WITH TRANSPORTATION SHE REQUIRES WHEELCHAIR TRANSPORT. PATIENT WITH HARDWARE TO LEFT FOOT. PATIENT WAS DISCHARGED FROM HOSPITAL WITH IV ANTIBIOTICS. PATIENT FRUSTRATED WITH SITUATION AND THAT [facility] WAS CALLED THIS DAY. PATIENT STATES HAD PLANS FOR HER BROTHER TO TAKE HER TO [facility] TO GET IV ANTIBIOTICS THIS AFTERNOON. THIS WORKER TO FOLLOW UP WITH SHANNAN PIGGYBACK CLERK AND HOME HEALTH. UPDATED DARCIE DOYLE AND DR. MILLS. PLAN: TBD YOHAN HARVEY, ELECTION JUDGE, GEOTHERMAL OPERATIONS MANAGER.
--- NOTE | 2018-12-04 12:40 | CM.ED ---
SOCIAL WORK CALL TO PATIENT'S FABRICATION AND LAYOUT CRAFTSMAN, DAVID CHAPMAN. LEFT MESSAGE, AWAITING CALL BACK. CALL TO [facility], LENCHO TO DISCUSS POSSIBLE REFERRAL. LENCHO STATES IS AWARE OF PATIENT HOME HEALTH HAD MESSAGE FROM PATIENT'S FABRICATION AND LAYOUT CRAFTSMAN, DAVID CHAPMAN. LENCHO TO FOLLOW UP AND GET BACK TO THIS WORKER. CALL TO [facility]'S CASE MANAGEMENT DEPARTMENT. LEFT MESSAGE WITH THIS WORKER'S CALL BACK INFORMATION. YOHAN HARVEY, BRINE SUPERVISOR, CNC LATHE MACHINE OPERATOR.
--- NOTE | 2018-12-04 12:45 | ED.DCSUM_ITS ---
History of Present Illness Chief Complaint: Lower Extremity Injury Informant: Patient Narrative: Patient states she is here for continued IV antibiotics. She had external fixation done of her left ankle a week ago for left ankle fracture. She states that this week she saw her surgeon and was placed on meropenem twice daily. She does have a PICC line in place. She states that they did attempt to set up home health care, however they are refusing to come to her home because of her schizophrenic son has not been taking his medication and she states she was offered long term facility, however declined. She states she is just here for her dose of antibiotics. Past Medical History - Allergies and Home Meds Allergies/Adverse Reactions: Allergies aspirin Allergy (Verified 11/23/18 16:27) Hives latex Allergy (Verified 11/23/18 16:27) Hives Penicillins Allergy (Verified 11/23/18 16:27) Hives simvastatin Allergy (Verified 11/23/18 16:27) Unknown naproxen [From Aleve] Adverse Reaction (Severe, Verified 11/23/18 16:27) Kidney disease Stage 3 Primary Care Physician: Pia Newton MD [Primary Care Provider] - Surgical History: - - Left ankle ORIF Smoking Status: Current every day smoker - Family History Maternal Family History: Family History (Last Reviewed 10/09/18 @ 10:03 by Patricia Hanks) Mother Diabetes Hypertension CVA (cerebral vascular accident) Brother Alcoholism Sister Cancer Father Heart disease Respiratory disease Family History: Reports: - Paternal Family History: Family History (Last Reviewed 10/09/18 @ 10:03 by Patricia Hanks) Mother Diabetes Hypertension CVA (cerebral vascular accident) Brother Alcoholism Sister Cancer Father Heart disease Respiratory disease Family History: Reports: - Review of Systems General: Denies: Chills, Fever, Sweats Eyes: Denies: Visual changes - bilaterally, Diplopia ENT: Denies: Rhinorrhea, Sore throat Cardiovascular: Denies: Chest pain, Palpitations Respiratory: Denies: Dyspnea, Cough, Dyspnea on exertion Gastrointestinal: Denies: Abdominal pain, Nausea, Vomiting, Diarrhea, Melena, Hematochezia Genitourinary: Denies: Dysuria, Hematuria, Frequency Musculoskeletal: Denies: Back pain, Extremity Pain Skin: Denies: Rash, Wounds Neurological: Denies: Headache, Weakness, Numbness Physical Exam Vital Signs/Narrative: Vital Signs Temp Pulse Resp BP Pulse Ox 12/04/18 10:50 98.6 F 81 16 143/77 H 98 General: Well nourished, Well developed, No Acute Distress Head: Normocephalic, Atraumatic Eyes: Perrl, EOMI ENT: Moist mucous membranes, No rhinorrhea Neck: Supple, Nontender Cardiovascular: Regular rate, Regular rhythm, No murmurs Respiratory: No distress, CTA bilaterally, Chest nontender Abdomen: Soft, Nontender, Nondistended, Normal bowel sounds Back: Nontender, Normal Inspection Extremities: No edema, - - Left lower extremity is dressed with bulky padded dressing and external fixation hardware appears to be in place. Skin: Normal color, No rash Neurological: Alert, Oriented x3, Cranial nerves II-XII grossly intact, Normal Strength, Normal Sensation Psychological: Normal affect, Normal Mood Diagnostic/Tx/Re-eval - Medical Decision Making Patient presents to the ED stating she needs her dose of IV antibiotics. She appears well and nontoxic. Vital signs stable. Social work did speak with the patient in is working on making arrangements for home health care. While waiting for social work to make arrangements, patient is requesting discharge. Patient was offered her dose of IV antibiotics here, however she was seen. Patient will be contacted by social work regarding health care. At this time, I do think it is safe for discharge home. She was advised on signs and symptoms to return to the ED. She was provided discharge instructions. Patient is agreeable to plan. Impression: Left lower extremity cellulitis. Disposition: Home, stable ED Disposition - Plan for ED Patient: Diagnosis: Lower extremity cellulitis Instructions: Cellulitis Referrals: Pia Newton MD [Primary Care Provider] - Additional Instructions: Our home health care social worker is working on arranging home health care for you.
--- NOTE | 2018-12-04 14:00 | CM.ED ---
SOCIAL WORK REVIEWED ED [facility] REPORT AND FOLLOWED UP WITH JANET FROM VISITING NURSES. PER JANET, WILL NOT FOLLOW PATIENT D/T SAFETY CONCERNS IN THE HOME WITH PATIENT'S SON. JANET STATES DID CALL [facility] TO MAKE REPORT.
[2018-12-04 14:02] VITALS: RESP 18
--- NOTE | 2018-12-04 14:15 | CM.ED ---
SOCIAL WORK PATIENT CALLED FRIEND FOR [facility]. PATIENT DENIES ANY SAFETY CONCERNS IN THE HOME AND DOES REPORT SON'S HX OF SCHIZOPHRENIA. PATIENT'S FRIEND TO [facility] HAS BEEN FAMILY FRIEND FOR MANY YEARS AND DENIES ANY SAFETY CONCERNS. THIS WORKER SPOKE WITH LENCHO FROM [facility] AND UPDATED ON THIS WORKER'S CONVERSATION WITH S NURSE, PATIENT AND PATIENT'S FRIEND. LENCHO TO FOLLOW UP WITH [facility] REGARDING PATIENT'S IV ANTIBIOTICS. YOHAN HARVEY, LACQUER MIXER, SAILING INSTRUCTOR.
--- NOTE | 2018-12-04 14:37 | CM.ED ---
SOCIAL WORK CALL FROM LENCHO WITH [facility]. PER LENCHO, SPOKE WITH VESNA WITH [facility] AND HE IS GOING TO FOLLOW UP WITH VISITING NURSES REGARDING PATIENT'S HOME HEALTH CARE. LENCHO STATES PROVIDED VESNA WITH THIS WORKER'S CONTACT INFORMATION. AWAITING CALL AT THIS TIME. IF [facility] WILL NOT FOLLOW PATIENT, [facility] MAY BE ABLE TO ACCOMMODATE PATIENT. WILL FOLLOW. YOHAN HARVEY, IMPROVEMENT LEADER, RETURN TO VENDOR.
--- NOTE | 2018-12-04 16:53 | CM.ED ---
SOCIAL WORK SPOKE WITH LENCHO WITH [facility]. [facility] HAS TAKEN OVER SENIOR CARE CARE FOR PATIENT. START OF CARE TO BEGIN THIS EVENING. YOHAN HARVEY, ELECTRICAL ACCESSORIES ASSEMBLER, PENOLOGY TEACHER.
== END 2018-12-04 14:31 | disposition home or self-care (01) ==
PROVIDERS: Emergency Provider Physician Assistant; Family Provider Internal Medicine; PCP Internal Medicine
DX: L03.116 Cellulitis of left lower limb (principal); Z95.9 Presence of cardiac and vascular implant and graft, unspecified; F17.200 Nicotine dependence, unspecified, uncomplicated
CPT/HCPCS: 99284

== ENCOUNTER 2018-12-28 15:48 | Outpatient (RCR) | payer MEDICARE, SELFPAY ==
[2018-12-07 14:22] LABS: Hemoglobin 9.2 g/dL (12.0-15.0); Mean Corp Hgb Conc 29.7 g/dL (32-36); Mean Corpuscular Hgb 26.7 pg (27.0-32.0); Mean Corpuscular Volume 90.1 fL (81-99); Mean Platelet Vol. 9.6 fl (6.2-12.0); Platelet Count 443 K/mm3 (150-450); RBC Distribution Width SD 55.9 fl (35.1-43.9); Red Blood Count 3.44 M/mm3 (4.2-5.4); White Blood Count 11.7 K/mm3 (4.4-11.0)
[2018-12-07 14:30] LABS: BUN 49 mg/dL (7-18); Creatinine, Serum 1.75 mg/dL (0.55-1.02); EST Glomerular Filtration Rate 31 mL/min (>60); Est Glom Filt Rate - Afr Amer 38 mL/min (>60)
[2018-12-14 16:27] LABS: Hematocrit 27.8 % (37-47); Hemoglobin 8.6 g/dL (12.0-15.0); Mean Corp Hgb Conc 30.9 g/dL (32-36); Mean Corpuscular Hgb 27.3 pg (27.0-32.0); Mean Corpuscular Volume 88.3 fL (81-99); Mean Platelet Vol. 9.7 fl (6.2-12.0); Platelet Count 376 K/mm3 (150-450); RBC Distribution Width CV 16.2 % (11.6-14.6); RBC Distribution Width SD 52.3 fl (35.1-43.9); Red Blood Count 3.15 M/mm3 (4.2-5.4); White Blood Count 8.1 K/mm3 (4.4-11.0)
[2018-12-14 16:35] LABS: BUN 61 mg/dL (7-18); Creatinine, Serum 2.01 mg/dL (0.55-1.02); EST Glomerular Filtration Rate 27 mL/min (>60); Est Glom Filt Rate - Afr Amer 32 mL/min (>60)
[2018-12-21 14:55] LABS: Hematocrit 29.8 % (37-47); Hemoglobin 9.1 g/dL (12.0-15.0); Mean Corp Hgb Conc 30.5 g/dL (32-36); Mean Corpuscular Hgb 26.5 pg (27.0-32.0); Mean Corpuscular Volume 86.6 fL (81-99); Mean Platelet Vol. 10.1 fl (6.2-12.0); Platelet Count 337 K/mm3 (150-450); RBC Distribution Width CV 16.3 % (11.6-14.6); Red Blood Count 3.44 M/mm3 (4.2-5.4); White Blood Count 8.2 K/mm3 (4.4-11.0)
[2018-12-21 15:12] LABS: Anion Gap 10 (5-15); BUN 73 mg/dL (7-18); BUN/Creat Ratio 38.6 RATIO (10-20); CPK Total, Creatine Kinase 27 U/L (26-192); Calcium,Total 8.8 mg/dL (8.5-10.1); Chloride 112 mmol/L (98-107); Creatinine, Serum 1.89 mg/dL (0.55-1.02); EST Glomerular Filtration Rate 29 mL/min (>60); Est Glom Filt Rate - Afr Amer 35 mL/min (>60); Glucose 102 mg/dL (74-106); Potassium 5.6 mmol/L (3.5-5.1); Sodium Level 143 mmol/L (136-145)
[2018-12-28 17:26] LABS: Hematocrit 29.5 % (37-47); Mean Corp Hgb Conc 30.5 g/dL (32-36); Mean Corpuscular Hgb 26.2 pg (27.0-32.0); Mean Corpuscular Volume 85.8 fL (81-99); Mean Platelet Vol. 10.3 fl (6.2-12.0); Platelet Count 294 K/mm3 (150-450); RBC Distribution Width SD 52.8 fl (35.1-43.9); Red Blood Count 3.44 M/mm3 (4.2-5.4); White Blood Count 8.4 K/mm3 (4.4-11.0)
[2018-12-28 17:43] LABS: BUN 83 mg/dL (7-18); Creatinine, Serum 2.17 mg/dL (0.55-1.02); EST Glomerular Filtration Rate 25 mL/min (>60); Est Glom Filt Rate - Afr Amer 30 mL/min (>60)
== END 2018-12-28 23:59 ==
LOC: HHLAB 15:48
PROVIDERS: Family Provider Internal Medicine; PCP Internal Medicine
DX: M86.9 Osteomyelitis, unspecified (principal); N18.3 Chronic kidney disease, stage 3 (moderate)
CPT/HCPCS: 80048; 82550; 82565; 84520; 85027

== ENCOUNTER 2019-01-18 14:47 | Outpatient (RCR) | payer MEDICARE, SELFPAY ==
[2018-12-23 16:47] VITALS: BMI 30.8
== END 2019-01-18 15:00 | disposition home or self-care (01) ==
LOC: HHLAB 14:47
PROVIDERS: Family Provider Internal Medicine; PCP Internal Medicine
DX: A41.52 Sepsis due to Pseudomonas (principal); T84.12 Displacement of internal fixation device of bones of limb
CPT/HCPCS: 82565; 84520; 85027

== ENCOUNTER 2019-01-26 12:00 | Outpatient (RCR) | payer MEDICARE, SELFPAY ==
[2018-12-23 16:47] VITALS: BMI 30.8
[2019-01-04 15:05] LABS: Hematocrit 30.9 % (37-47); Hemoglobin 9.5 g/dL (12.0-15.0); Mean Corp Hgb Conc 30.7 g/dL (32-36); Mean Corpuscular Volume 84.7 fL (81-99); Mean Platelet Vol. 10.3 fl (6.2-12.0); Platelet Count 279 K/mm3 (150-450); RBC Distribution Width CV 16.9 % (11.6-14.6); RBC Distribution Width SD 52.3 fl (35.1-43.9); Red Blood Count 3.65 M/mm3 (4.2-5.4); White Blood Count 8.2 K/mm3 (4.4-11.0)
[2019-01-04 15:12] LABS: BUN 79 mg/dL (7-18); Creatinine, Serum 1.73 mg/dL (0.55-1.02); EST Glomerular Filtration Rate 32 mL/min (>60); Est Glom Filt Rate - Afr Amer 39 mL/min (>60)
[2019-01-11 18:21] LABS: Hemoglobin 8.3 g/dL (12.0-15.0); Mean Corp Hgb Conc 30.7 g/dL (32-36); Mean Corpuscular Hgb 25.9 pg (27.0-32.0); Mean Corpuscular Volume 84.4 fL (81-99); Mean Platelet Vol. 9.9 fl (6.2-12.0); Platelet Count 278 K/mm3 (150-450); RBC Distribution Width CV 17.2 % (11.6-14.6); RBC Distribution Width SD 53.1 fl (35.1-43.9); White Blood Count 8.7 K/mm3 (4.4-11.0)
[2019-01-11 18:32] LABS: BUN 72 mg/dL (7-18); Creatinine, Serum 1.49 mg/dL (0.55-1.02); EST Glomerular Filtration Rate 38 mL/min (>60); Est Glom Filt Rate - Afr Amer 46 mL/min (>60)
[2019-01-18 15:30] LABS: Hematocrit 28.6 % (37-47); Hemoglobin 9.2 g/dL (12.0-15.0); Mean Corp Hgb Conc 32.2 g/dL (32-36); Mean Corpuscular Hgb 26.1 pg (27.0-32.0); Mean Corpuscular Volume 81.3 fL (81-99); Mean Platelet Vol. 9.8 fl (6.2-12.0); Platelet Count 412 K/mm3 (150-450); RBC Distribution Width CV 16.4 % (11.6-14.6); RBC Distribution Width SD 48.8 fl (35.1-43.9); Red Blood Count 3.52 M/mm3 (4.2-5.4); White Blood Count 11.1 K/mm3 (4.4-11.0)
[2019-01-18 15:45] LABS: BUN 58 mg/dL (7-18); Creatinine, Serum 2.03 mg/dL (0.55-1.02); EST Glomerular Filtration Rate 27 mL/min (>60); Est Glom Filt Rate - Afr Amer 32 mL/min (>60)
[2019-01-25 18:26] LABS: Hematocrit 30.7 % (37-47); Hemoglobin 9.6 g/dL (12.0-15.0); Mean Corp Hgb Conc 31.3 g/dL (32-36); Mean Corpuscular Volume 83.2 fL (81-99); Mean Platelet Vol. 9.2 fl (6.2-12.0); Platelet Count 445 K/mm3 (150-450); RBC Distribution Width CV 16.6 % (11.6-14.6); RBC Distribution Width SD 49.6 fl (35.1-43.9); Red Blood Count 3.69 M/mm3 (4.2-5.4); White Blood Count 9.9 K/mm3 (4.4-11.0)
[2019-01-25 18:56] LABS: BUN 58 mg/dL (7-18); Creatinine, Serum 1.91 mg/dL (0.55-1.02); EST Glomerular Filtration Rate 28 mL/min (>60)
[2019-01-25 18:57] LABS: Est Glom Filt Rate - Afr Amer 34 mL/min (>60)
== END 2019-01-28 23:59 ==
LOC: HHLAB 12:00
PROVIDERS: Internal Medicine Nephrology; Family Provider Internal Medicine; PCP Internal Medicine
DX: A41.52 Sepsis due to Pseudomonas (principal); T84.12 Displacement of internal fixation device of bones of limb; T84.69XD Infection and inflammatory reaction due to internal fixation device of other site, subsequent encounter; M86.372 Chronic multifocal osteomyelitis, left ankle and foot; L97.324 Non-pressure chronic ulcer of left ankle with necrosis of bone; L03.116 Cellulitis of left lower limb; E11.610 Type 2 diabetes mellitus with diabetic neuropathic arthropathy; I25.10 Atherosclerotic heart disease of native coronary artery without angina pectoris; I12.9 Hypertensive chronic kidney disease with stage 1 through stage 4 chronic kidney disease, or unspecified chronic kidney disease; N18.4 Chronic kidney disease, stage 4 (severe)
CPT/HCPCS: 82565; 84520; 85027

== ENCOUNTER 2019-02-02 14:25 | Emergency (ER) | payer MEDICARE, SELFPAY ==
[2018-12-23 16:47] VITALS: BMI 30.8
[2019-02-02 14:26] VITALS: BP 140/82; PULSE 82; RESP 18; TEMP 37; O2SAT 100; BMI 35.6
--- NOTE | 2019-02-02 14:37 | ED.VIS.GEN ---
History of Present Illness Chief Complaint: Itching Informant: Patient Narrative: Patient presents with hives. She believes are secondary to anxiety, she is quite anxious. Has complex medical history, she had recent foot infection, she had Pseudomonas, she underwent surgery she has a wound VAC and she was on IV antibiotics through [facility], she is off the IV antibiotics, she was prescribed steroids per her PCP, she only took 1 days worth. She has no shortness of breath fever chills cough or congestion Past Medical History - Allergies and Home Meds Allergies/Adverse Reactions: Allergies aspirin Allergy (Verified 02/02/19 14:31) Hives latex Allergy (Verified 02/02/19 14:31) Hives Penicillins Allergy (Verified 02/02/19 14:31) Hives simvastatin Allergy (Verified 02/02/19 14:31) Unknown naproxen [From Aleve] Adverse Reaction (Severe, Verified 02/02/19 14:31) Kidney disease Stage 3 Primary Care Physician: Pia Newton MD [Primary Care Provider] - Past Medical History: - - Extensive medical history including diabetes and left foot infection, otherwise reviewed Surgical History: - - Left ankle ORIF Smoking Status: Current every day smoker - Family History Maternal Family History: Family History (Last Reviewed 01/22/19 @ 09:55 by Patricia Hanks) Mother Diabetes Hypertension CVA (cerebral vascular accident) Brother Alcoholism Sister Cancer Father Heart disease Respiratory disease Family History: Reports: - Paternal Family History: Family History (Last Reviewed 01/22/19 @ 09:55 by Patricia Hanks) Mother Diabetes Hypertension CVA (cerebral vascular accident) Brother Alcoholism Sister Cancer Father Heart disease Respiratory disease Family History: Reports: - Review of Systems All systems negative except as indicated General: Denies: Fever ENT: Denies: Rhinorrhea, Sore throat Cardiovascular: Denies: Chest pain Respiratory: Denies: Dyspnea, Cough Gastrointestinal: Denies: Abdominal pain, Nausea, Vomiting Genitourinary: Denies: Dysuria Musculoskeletal: Reports: Myalgias, - - Chronic left foot infection with a wound VAC Skin: Reports: Rash Neurological: Denies: Weakness Physical Exam Vital Signs/Narrative: Vital Signs Temp Pulse Resp BP Pulse Ox 02/02/19 14:26 98.6 F 82 18 140/82 H 100 General: - - She does not appear toxic, she appears chronically ill. Head: Normocephalic ENT: Moist mucous membranes Neck: Supple Cardiovascular: Regular rate, Regular rhythm, - - Right chest wall IV line clean dry and intact Respiratory: No distress, CTA bilaterally Abdomen: Soft, Nontender Back: Nontender Extremities: - - Left one has a splint, it has a wound VAC, she told me this is to be taken care of by her precast concrete ironworker and no one else thus I did not remove it Skin: - - She has urticaria on her neck, upper chest and some on the abdominal wall Neurological: Alert Psychological: Normal affect Diagnostic/Tx/Re-eval - Medical Decision Making Patient has urticaria. Told her I am not thrilled about her steroids secondary to her foot infection I believe she should discontinue them. I will give Ativan and Vistaril instead. I believe the source of her symptoms is stress and anxiety. ED Disposition - Plan for ED Patient: Disposition: Home or Assisted Living Diagnosis: Urticaria Instructions: Understanding Urticaria (Hives) Prescriptions: Lorazepam [Ativan] 0.5 mg PO DAILY #20 tab Prescription Printed Hydroxyzine Pamoate [Vistaril] 50 mg PO 4X/DAY PRN PRN #20 cap PRN Reason: Anxiety Prescription Printed Referrals: Pia Newton MD [Primary Care Provider] - 3-5 Days
[2019-02-02] MEDS: LORazepam 1 MG Tablet PO (15:05)
[2019-02-02] MEDS: hydrOXYzine 50 MG/ML Vial IM (15:06)
[2019-02-02 15:08] VITALS: BP 126/65; PULSE 81; RESP 16; O2SAT 100
== END 2019-02-02 16:08 | disposition home or self-care (01) ==
LOC: ED 14:45
PROVIDERS: Emergency Provider Emergency Medicine; Family Provider Internal Medicine; PCP Internal Medicine
DX: L50.9 Urticaria, unspecified (principal); E11.9 Type 2 diabetes mellitus without complications; L08.9 Local infection of the skin and subcutaneous tissue, unspecified; B96.5 Pseudomonas (aeruginosa) (mallei) (pseudomallei) as the cause of diseases classified elsewhere; Z97.8 Presence of other specified devices; Z79.899 Other long term (current) drug therapy; F17.200 Nicotine dependence, unspecified, uncomplicated
CPT/HCPCS: 96372; 99284

== ENCOUNTER → 2019-03-11 10:33 | Outpatient (CLI) | payer MEDICARE, SELFPAY ==
[2019-03-11 11:04] LABS: Hematocrit 29.9 % (37-47); Hemoglobin 9.1 g/dL (12.0-15.0); Mean Corp Hgb Conc 30.4 g/dL (32-36); Mean Corpuscular Volume 85.4 fL (81-99); Mean Platelet Vol. 9.2 fl (6.2-12.0); Platelet Count 324 K/mm3 (150-450); RBC Distribution Width CV 18.5 % (11.6-14.6); RBC Distribution Width SD 56.9 fl (35.1-43.9); White Blood Count 10.5 K/mm3 (4.4-11.0)
[2019-03-11 11:17] LABS: Protein, Urine (Random) 142.8 mg/dL (<11.9); Protein:Creat Ratio 5328 mg/g CRE (0-200)
[2019-03-11 11:35] LABS: Anion Gap 7 (5-15); BUN 56 mg/dL (7-18); BUN/Creat Ratio 24.9 RATIO (10-20); Calcium,Total 9.5 mg/dL (8.5-10.1); Chloride 106 mmol/L (98-107); Creatinine, Serum 2.25 mg/dL (0.55-1.02); EST Glomerular Filtration Rate 24 mL/min (>60); Est Glom Filt Rate - Afr Amer 28 mL/min (>60); Glucose 167 mg/dL (74-106); Potassium 5.1 mmol/L (3.5-5.1); Sodium Level 136 mmol/L (136-145)
[2019-03-11 11:41] LABS: PTHIN 74.4 pg/mL (18.4-80.1); Vitamin D,25 Hydroxy 32.5 ng/mL (29.95-100.01)
== END ==
PROVIDERS: Family Provider Internal Medicine; PCP Internal Medicine
DX: E55.9 Vitamin D deficiency, unspecified (principal); N18.3 Chronic kidney disease, stage 3 (moderate); Z13.0 Encounter for screening for diseases of the blood and blood-forming organs and certain disorders involving the immune mechanism; E87.6 Hypokalemia
CPT/HCPCS: 36415; 80048; 82306; 82570; 83970; 84156; 85027

== ENCOUNTER 2019-07-02 21:43 | Inpatient (IN) | payer MEDICARE, MEDICAID, SELFPAY ==
[2019-04-23 10:45] VITALS: BMI 35.6
[2019-07-02 21:45] VITALS: BP 120/60; PULSE 79; RESP 18; TEMP 36.8; O2SAT 99; BMI 36.0
--- NOTE | 2019-07-02 22:00 | RAD_ITS ---
STUDY: X-RAY - LEFT TIBIA AND FIBULA REASON FOR EXAM: Female, 59 years old. ulcer on left foot x 1 week, lower leg redness and swelling. TECHNIQUE: 2 view(s) of the tibia and fibula were obtained. COMPARISON: September 09, 2018 FINDINGS: Interval removal of intramedullary anthony in the tibia with multiple screw hole tracks noted. Increasing bony erosion/resorption at the distal end of the tibia and fibula since the previous study . There is also resorption of the visualized proximal tarsal bones. Diffuse soft tissue swelling at the ankle. Subcutaneous emphysema is noted extending to the foot. Osteomyelitis cannot be excluded. RAD/Tibia & Fibula 2 Views IMPRESSION: Soft tissue swelling around the ankle with increasing resorption/erosion of the distal tibia and fibula. There is also resorption of the proximal tarsal bones of the foot. Osteomyelitis cannot be excluded. Electronically Signed: Isaias Weldon DO at 22:26 EDT Tel [phone], Service support ,
[2019-07-02 22:10] LABS: Absolute Lymphocyte Count 2.41 X10^3/uL (0.83-4.51); Absolute Neutrophil Count 12.2 X10^3/uL (2.0-7.7); Basophil# 0.08 X10^3/uL; Basophil% 0.5 % (0-1); Eosinophil# 0.43 X10^3/uL; Eosinophils% 2.5 % (0-5); Hematocrit 25.7 % (37-47); Lymphocyte # 2.41 X10^3/ul (4.0); Mean Corp Hgb Conc 31.1 g/dL (32-36); Mean Corpuscular Hgb 26.1 pg (27.0-32.0); Mean Platelet Vol. 9.1 fl (6.2-12.0); Monocyte# 1.26 X10^3/uL; Monocyte% 7.3 % (0-10); NRBC Flagged by Analyzer 0 % (0-5); Neutrophil # 12.16 X10^3/uL (2.7-7.7); Neutrophil % 70.8 % (47-70); Platelet Count 464 K/mm3 (150-450); Red Blood Count 3.06 M/mm3 (4.2-5.4); White Blood Count 17.2 K/mm3 (4.4-11.0)
[2019-07-02 22:27] LABS: Erythrocyte Sedimentation Rate 92 mm/hr (0-30)
[2019-07-02 22:31] LABS: Anion Gap 8 (5-15); BUN 70 mg/dL (7-18); BUN/Creat Ratio 24.9 RATIO (10-20); Calcium,Total 8.7 mg/dL (8.5-10.1); Chloride 108 mmol/L (98-107); Creatinine, Serum 2.81 mg/dL (0.55-1.02); EST Glomerular Filtration Rate 18 mL/min (>60); Est Glom Filt Rate - Afr Amer 22 mL/min (>60); Estimated Creatinine Clearance 19.68 ml/min; Glucose 151 mg/dL (74-106); Potassium 5.4 mmol/L (3.5-5.1); Sodium Level 135 mmol/L (136-145)
--- NOTE | 2019-07-02 22:41 | ED.VISSUMM ---
- ER Visit Summary Date of Service: 07/02/19 Chief Complaint: Ankle wound History of Present Illness: The patient is a 59 F with a history of diabetes and osteomyelitis of her left ankle. She presents with a left ankle wound that came up over the past week. She has a history of Pseudomonas infection. Denies fever or systemic symptoms. Physical Examination: Afebrile and vital signs unremarkable. Patient has a palm sized area of erythema with a draining ulcer to her left medial ankle. She has chronic skin changes, lymphedema. Test Results: White count 17.2, hemoglobin 8.0, platelets 464. Sodium 135, potassium 5.4, glucose 151, BUN 70, creatinine 2.81. ESR 92 and CRP 189. X-ray of her tib-fib shows soft tissue swelling with resorption of the distal tibia and fibula and resorption of the proximal tarsal bones of the foot. Cannot rule out osteomyelitis. Emergency Department Course and Treatment: Patient has a leg wound, history of osteomyelitis. She already tried doxycycline at home with no improvement. I feel she will need IV antibiotics and podiatry consultation. She normally follows with Dr. Covington and Dr. John in [place], [place]. She is refusing transfer as she does not want to leave the area. She would like to be established with local physicians and surgeons for this. I contacted the hospitalist to admit. Patient was treated with Cipro and vancomycin. Treatment Plan: As above Disposition: Admission Impression: Left leg wound This note was generated with [employer] dictation software. It may contain incorrect words, spelling, and punctuation that were not noted in review of the chart prior to signing ED Disposition - Plan for ED Patient: Referrals: Pia Newton MD [Primary Care Provider] -
--- NOTE | 2019-07-02 22:43 | PCM.HP.STD ---
Problem List (1) Osteomyelitis Status: Acute (2) Sleep apnea Status: Chronic (3) Recurrent dislocation of left ankle Status: Chronic (4) Alopecia Status: Chronic Comment: alopecia overlying soft tissue mass right temporal parietal scalp (5) Head mass Status: Chronic Comment: 8 cm soft tissue mass right temporal parietal scalp with overlying alopecia (6) Acute osteomyelitis involving ankle and foot Status: Acute (7) Open left ankle fracture Status: Chronic (8) Anemia Status: Chronic (9) Rheumatoid arthritis Status: Chronic (10) Gout Status: Chronic (11) Tinea unguium Status: Chronic (12) Type 2 diabetes mellitus with diabetic polyneuropathy Status: Chronic (13) Peripheral neuropathy Status: Chronic (14) Arthritis Status: Chronic (15) Hypertension Status: Chronic (16) High cholesterol Status: Chronic (17) Hyperlipidemia Status: Chronic (18) Type 2 diabetes mellitus Status: Chronic (19) Diabetic foot ulcer associated with type 2 diabetes mellitus Status: Acute (20) Type 2 diabetes mellitus with diabetic peripheral angiopathy with gangrene Status: Chronic Qualifiers: Diabetes mellitus residential insulin use: unspecified residential insulin use status Qualified Code(s): E11.52 - Type 2 diabetes mellitus with diabetic peripheral angiopathy with gangrene (21) Uncontrolled type 2 diabetes mellitus Status: Chronic (22) Tobacco use disorder Status: Chronic (23) Pure hypercholesterolemia Status: Chronic (24) History of hypertension Status: Chronic (25) Type 2 diabetes mellitus with diabetic polyneuropathy Status: Chronic Qualifiers: (26) History of gout Status: Chronic (27) Obesity Status: Chronic Qualifiers: Body mass index: BMI 34.0-34.9 (28) COPD (chronic obstructive pulmonary disease) Status: Chronic (29) Chronic renal insufficiency, stage III (moderate) Status: Chronic (30) Tobacco abuse counseling Status: Acute (31) Type 2 diabetes mellitus with foot ulcer Status: Chronic (32) 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 She reports bloody drainage and pus from wound of left ankle. This has been going on for about a week. In the past patient was on doxycycline for about a year because of osteomyelitis of her left ankle. With her new symptoms she took some leftovers of the doxycycline. However her symptoms continue to worsen. . Associated with her symptom is soreness of her left ankle. Also she has erythema and edema of the left ankle and the adjacent foot. She reported that her current symptoms began after she picked the skin on her left foot/ankle. She called her PCP and she was advised to come to the emergency department for further evaluation. In the past patient followed up with Dr. Covington, podiatry. Also she follows up with Dr. Ramírez DPM at [place], [place]. At the emergency department patient had leukocytosis. Her ESR and CRP was elevated. X-ray of the tibia/fibula showed resumption and erosion. She reported that around October 2018 hardware was removed from her left lower extremity because of Pseudomonas infection. Past Medical History Past Medical History (Chronic Problems): Chronic Problems (Last Reviewed 07/03/19 @ 01:[address] Darwin Lema MD) Sleep apnea (Chronic) Recurrent dislocation of left ankle (Chronic) Alopecia (Chronic) alopecia overlying soft tissue mass right temporal parietal scalp Head mass (Chronic) 8 cm soft tissue mass right temporal parietal scalp with overlying alopecia Open left ankle fracture (Chronic) Anemia (Chronic) Rheumatoid arthritis (Chronic) Gout (Chronic) Tinea unguium (Chronic) Type 2 diabetes mellitus with diabetic polyneuropathy (Chronic) Peripheral neuropathy (Chronic) Arthritis (Chronic) Hypertension (Chronic) High cholesterol (Chronic) Hyperlipidemia (Chronic) Type 2 diabetes mellitus (Chronic) 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) Uncontrolled type 2 diabetes mellitus (Chronic) Tobacco use disorder (Chronic) Pure hypercholesterolemia (Chronic) History of hypertension (Chronic) Type 2 diabetes mellitus with diabetic polyneuropathy (Chronic) History of gout (Chronic) Obesity (Chronic) COPD (chronic obstructive pulmonary disease) (Chronic) Chronic renal insufficiency, stage III (moderate) (Chronic) Type 2 diabetes mellitus with foot ulcer (Chronic) 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 Darwin Lema MD) Recurrent dislocation of left ankle (Chronic) M24.472 Breakdown (mechanical) of other bone devices, implants and grafts, initial encounter (Inactive) T84.318A Arthritis (Chronic) M19.90 Hypertension (Chronic) I10 High cholesterol (Chronic) E78.00 Clostridium difficile infection B96.89 Gout M10.9 Heart disease I51.9 Inflammatory arthritis M19.90 Lupus L93.0 Rheumatoid arthritis M06.9 Diabetes E11.9 Allergies aspirin Allergy (Verified 07/02/19 21:48) Hives latex Allergy (Verified 07/02/19 21:48) Hives Penicillins Allergy (Verified 07/02/19 21:48) Hives simvastatin Allergy (Verified 07/02/19 21:48) Unknown naproxen [From Aleve] Adverse Reaction (Severe, Verified 07/02/19 21:48) Kidney disease Stage 3 Home Medications: Ambulatory Orders Medication Instructions Recorded Acetaminophen [Arthritis Pain 650 mg PO TID 08/10/18 Relief] Atenolol [Tenormin (beta feliberto)] 50 mg PO DAILY 08/10/18 diltiazem HCl 180 mg 180 mg PO DAILY cap 12/15/18 capsule,extended release 24 hr lisinopril 40 mg tablet 40 mg PO BID tab 12/15/18 cyclobenzaprine 10 mg tablet 10 mg PO TID PRN #90 tab 02/02/19 Allopurinol 300 mg PO DAILY 07/03/19 Blood Sugar Diagnostic [Accu-Chek See Rx Instructions .ROUTE 07/03/19 Chloe Plus test strp] .MEDSUPPLY Cholecalciferol (Vitamin D3) 50,000 unit PO MO 07/03/19 [D3-50] Gabapentin [Neurontin] 300 mg PO TID 07/03/19 Surgical History: Surgical History (Last Reviewed 07/03/19 @ 01:[address] Darwin Lema MD) History of carpal tunnel release Z98.890 History of hysterectomy Z98.890, Z90.710 History of orthopedic surgery Z98.890 Left foot amputation of right pinke toe history of 2 back sugeries history of right femoral stent history of right shoulder surgery Surgical History: - - Left ankle ORIF Psychiatric History: No pertinent psych hx [employer] History: No pertinent [employer] history Smoking Status: Current every day smoker - *Family History Maternal Family History: Family History (Last Reviewed 07/03/19 @ 01:[address] Darwin Lema MD) Mother Diabetes Hypertension CVA (cerebral vascular accident) Brother Alcoholism Sister Cancer Father Heart disease Respiratory disease History Items: - Paternal Family History: Family History (Last Reviewed 07/03/19 @ 01:[address] Darwin Lema MD) Mother Diabetes Hypertension CVA (cerebral vascular accident) Brother Alcoholism Sister Cancer Father Heart disease Respiratory disease History Items: - Review of Systems Constitutional: Denies: Chills, Fever, Weight Change HEENT: Denies: Head Aches, Sinus Congestion, Sinus Drainage Cardiovascular: Denies: Chest Pain, Palpitations Respiratory: Denies: Cough, Shortness of breath at rest, Sputum production Gastrointestinal: Denies: Abdominal Pain, Nausea, Vomiting Genitourinary: Denies: Dysuria Musculoskeletal: Denies: Joint Pain, Joint Tenderness Skin: Reports: Wounds. Denies: Rash Neurological: Denies: Numbness, Tingling, Focal weakness Psychiatric: Denies: Anxiety, Depression, Homicidal Ideations, Suicidal Ideations Hematologic/ Lymphatic: Denies: Easy Bruising, Easy Bleeding VTE Information - Inpt Only VTE Present on Admission: No VTE Mechan Device Prophylaxis: None VTE Pharm Prophylaxis ordered?: Yes Patient Problems: Active and Suspected Problems (Last Reviewed 07/03/19 @ 01:[address] Darwin Lema MD) Osteomyelitis (Acute) - Physical Exam Vitals/I&O's: Vital Signs Temp Pulse Resp BP Pulse Ox 98.2 F 79 18 120/60 99 07/02/19 21:45 07/02/19 21:45 07/02/19 21:45 07/02/19 21:45 07/02/19 21:45 Oxygen Delivery Method Room Air Weight: 101.2 kg Body Mass Index (BMI) 36.0 Finger Stick Blood Glucose 163 General: Alert, Oriented x3, Cooperative HEENT: Atraumatic, PERRLA, EOMI, Normocephalic Neck: Supple, Trachea Midline Lungs: Clear to auscultation, Normal air movement, No rhonchi, No wheeze, No rales Cardiovascular: Regular rate, No murmurs Abdomen: Bowel Sounds Present, Soft, Non Tender Extremities: Edema - Left foot, - - Shortened fifth toe of right foot. Skin: Ulcer/ Wound - Left ankle-wound with tunneling and serosanguineous drainage Musculoskeletal: Tenderness - Left ankle and left foot Neurological: Cranial nerves II-XII grossly intact Psych/Mental Status: Normal Affect, Appropriate Laboratory Results 07/02/19 22:00: WBC 17.2 H, RBC 3.06 L, Hgb 8.0 L, Hct 25.7 L, MCV 84.0, MCH 26.1 L, MCHC 31.1 L, RDW Std Deviation 52.0 H, RDW Coeff of Racheal 17.0 H, Plt Count 464 H, MPV 9.1, Immature Gran % (Auto) 4.900 H, Neut % (Auto) 70.8 H, Lymph % (Auto) 14.0 L, [place] % (Auto) 7.3, Eos % (Auto) 2.5, Baso % (Auto) 0.5, Absolute Neuts (auto) 12.2 H, Absolute Lymphs (auto) 2.41, Nucleated RBC % 0, ESR 92 H 07/02/19 22:00: Sodium 135 L, Potassium 5.4 H, Chloride 108 H, Carbon Dioxide 19.0 L, Anion Gap 8, BUN 70 H, Creatinine 2.81 H, Estim Creat Clear Calc 19.68, Est GFR (MDRD) Af Amer 22 L, Est GFR (MDRD) Non-Af 18 L, BUN/Creatinine Ratio 24.9 H, Glucose 151 H, Calcium 8.7, C-React Prot Ext Range 189.00 H Current Medications Vancomycin HCl 1,500 mg/ (Dextrose) 280 mls @ 250 mls/hr IV X1 ONE Stop: 07/02/19 23:46 Ciprofloxacin (Cipro) 400 mg in 200 mls @ 200 mls/hr IV X1 ONE Stop: 07/02/19 23:38 Assessment/Plan All Active Problems (Last Reviewed 07/03/19 @ 01:[address] Darwin Lema MD) Osteomyelitis (Acute) Acute osteomyelitis involving ankle and foot (Acute) Diabetic foot ulcer associated with type 2 diabetes mellitus (Acute) Tobacco abuse counseling (Acute) The patient is a 59 year old F with a significant history of diabetes mellitus; lupus; dislocation of left ankle; Pseudomonas infection of left ankle who presented with increase drainage of left ankle wound; leukocytosis; elevated inflammatory markers (ESR, CRP) ; and radiographic evidence of resorption and erosion of distal tibia and fibula consistent with probable osteomyelitis of left lower extremity. Probable osteomyelitis of left lower extremity Likely diabetes mellitus contributing. Patient denies any current hardware in left lower extremity. Increase inflammatory markers of leukocytosis with bandemia; ESR and CRP. Emergent department doctor discussed the case with Dr. Fatemeh DPM who will follow on consult. Patient received vancomycin and ciprofloxacin at emergency department. Patient reported that she has allergy to penicillin. She reported the allergy to penicillin as a feeling sick to her stomach. This allergy to penicillin she had when she was a teenager. Will order vancomycin and Zosyn. Consider infectious disease consult. Wound culture was obtained at emergency department. Dry dressing at this time.Wound care consult. Continue home Tylenol. Patient does not meet criteria for sepsis. However when her blood pressure has been noted to be declining. Hold home atenolol; and lisinopril. Trend CBC and BMP. Diabetes mellitus with poly-neuropathy and nephropathy Patient with hyperglycemia on presentation. [place] [address] kcal/day;2 g potassium restriction diet; Phosphate restricted diet. . Patient is not on home insulin. Accu-Chek QA CHS with correction scale insulin ordered. Gabapentin continued with adjustments secondary to JOEY. JOEY on CKD stage IV On presentation creatinine was 2.81. Review of record showed that on 03/11/2019 her creatinine was 2.25. And on 01/25/2019 her creatinine was 1.91. BUN is 70. BUN over creatinine is 24.9. Likely prerenal imposed on intrinsic renal of CKD. CKD likely secondary to hypertensive nephrosclerosis and diabetic mellitus. Patient follow-up with [facility]. Diet as above. IV hydration. Trend BMP. Avoid nephrotoxins. Gabapentin dose adjusted. Hold lisinopril. Hyperkalemia Potassium presentation 5.4. Likely secondary to JOEY on CKD. IV hydration. Management as on JOEY on CKD. Non-anion gap metabolic acidosis Likely secondary to CKD. Tobacco abuse Counseled. Declined nicotine patch. DVT prophylaxis Heparin subcutaneous ordered. If patient will have imminent surgical intervention consider discontinue heparin as appropriate. Inpatient E&M: 16921 Init Hosp L3
[2019-07-02 22:48] VITALS: BP 103/43; PULSE 65; RESP 18; TEMP 36.6; O2SAT 99
[2019-07-02] MEDS: Ciprofloxacin 400 MG/200 ML BAG 200 MG IV (22:48)
[2019-07-02 23:33] VITALS: BP 103/43; PULSE 65; RESP 18; TEMP 36.6; O2SAT 99
[2019-07-02 23:55] VITALS: BP 98/45; PULSE 66; RESP 20; TEMP 36.6; O2SAT 99
[2019-07-02 23:59] VITALS: BMI 34.9
[2019-07-03 00:04] VITALS: BMI 34.9
[2019-07-03] MEDS: 0.9% Normal Saline 1,000 ML 75 ML IV ×2 (00:14→16:06)
[2019-07-03] MEDS: MELATONIN 3 MG TABLET PO (00:31)
--- NOTE | 2019-07-03 01:35 | PCM.RX.CS ---
Consult Pharmacy has been consulted to manage selected antiobiotic: Vancomycin Type of Consult: New start Suspected Infection: Osteomyelitis Prior Doses of Antibiotics Received/Current Regimen: Medications Discontinued Medications Vancomycin HCl 1,500 mg/ (Sodium Chloride) 530 mls @ 250 mls/hr IV X1 ONE Stop: 07/03/19 01:02 Last Admin: 07/03/19 00:14 Dose: 250 mls/hr Labs: Sodium 135 mmol/L (136-145) L 07/02/19 22:00 Potassium 5.4 mmol/L (3.5-5.1) H 07/02/19 22:00 Chloride 108 mmol/L (98-107) H 07/02/19 22:00 Carbon Dioxide 19.0 mmol/L (21.0-32.0) L 07/02/19 22:00 Anion Gap 8 (5-15) 07/02/19 22:00 BUN 70 mg/dL (7-18) H 07/02/19 22:00 Creatinine 2.81 mg/dL (0.55-1.02) H 07/02/19 22:00 Est GFR (MDRD) Af Amer 22 mL/min (>60) L 07/02/19 22:00 Est GFR (MDRD) Non-Af 18 mL/min (>60) L 07/02/19 22:00 BUN/Creatinine Ratio 24.9 RATIO (10-20) H 07/02/19 22:00 Glucose 151 mg/dL (74-106) H 07/02/19 22:00 Weight used for dosin.2 kg Estimated Creatinine Clearance: 19.7 Goal Trough: 15-20 mcg/mL Pharmacy Plan for Drug Dosing: Vancomycin IV 1500mg dose was given in ED 07/03/19 @0014. Since CrCl<20, will draw a random level 07/04/19 and determine continuing dose from that result. Pharmacy Service will continue to monitor and adjust dosing as required. Follow-Up Labs: Trough Vancomycin - random Labs to be done on [date and time ordered]: 07/04/19 @0600
[2019-07-03 02:50] VITALS: BP 127/68; PULSE 67; RESP 18; TEMP 36.6; O2SAT 100
[2019-07-03] MEDS: Acetaminophen 500 MG Tablet PO ×4 (05:58→23:48)
[2019-07-03] MEDS: Gabapentin 100 MG Capsule PO ×3 (05:59→21:20)
[2019-07-03] MEDS: Heparin Injection (Vial) 5,000 UNIT/ML VIAL 5000 UNIT SC (06:01)
[2019-07-03 06:55] LABS: Bedside Glucose 128 mg/dL (70-110)
[2019-07-03 07:10] LABS: Absolute Lymphocyte Count 1.65 X10^3/uL (0.83-4.51); Absolute Neutrophil Count 15.7 X10^3/uL (2.0-7.7); Basophil# 0.08 X10^3/uL; Basophil% 0.4 % (0-1); Eosinophil# 0.43 X10^3/uL; Eosinophils% 2.1 % (0-5); Hematocrit 25.3 % (37-47); Hemoglobin 7.8 g/dL (12.0-15.0); Lymphocyte # 1.65 X10^3/ul (4.0); Lymphocyte % 8.2 % (19-41); Mean Corp Hgb Conc 30.8 g/dL (32-36); Mean Corpuscular Hgb 25.9 pg (27.0-32.0); Mean Corpuscular Volume 84.1 fL (81-99); Mean Platelet Vol. 9.3 fl (6.2-12.0); Monocyte# 1.45 X10^3/uL; Monocyte% 7.2 % (0-10); NRBC Flagged by Analyzer 0 % (0-5); Neutrophil # 15.68 X10^3/uL (2.7-7.7); Neutrophil % 78.2 % (47-70); Platelet Count 471 K/mm3 (150-450); RBC Distribution Width CV 17.2 % (11.6-14.6); Red Blood Count 3.01 M/mm3 (4.2-5.4); White Blood Count 20.1 K/mm3 (4.4-11.0)
[2019-07-03 08:07] LABS: Anion Gap 10 (5-15); BUN 68 mg/dL (7-18); BUN/Creat Ratio 25.7 RATIO (10-20); Calcium,Total 8.8 mg/dL (8.5-10.1); Chloride 115 mmol/L (98-107); Creatinine, Serum 2.65 mg/dL (0.55-1.02); EST Glomerular Filtration Rate 19 mL/min (>60); Est Glom Filt Rate - Afr Amer 24 mL/min (>60); Estimated Creatinine Clearance 20.87 ml/min; Glucose 129 mg/dL (74-106); Potassium 6.3 mmol/L (3.5-5.1); Sodium Level 141 mmol/L (136-145)
[2019-07-03 08:50] VITALS: BP 120/74; PULSE 78; RESP 18; TEMP 36.4; O2SAT 100
--- NOTE | 2019-07-03 09:03 | CT_ITS ---
STUDY: CT LEFT FOOT REASON FOR EXAM: Female, 59 years old. LEFT ANKLE OSTEOMYELITIS RADIATION DOSAGE (If Supplied By Facility): CTDIvol = ( 15.35 ) mGy, DLP = ( 557.16 ) mGycm TECHNIQUE: Thin section transaxial imaging of the foot was obtained, with sagittal and coronal reconstructed images. Individualized dose optimization techniques were used for this CT. COMPARISON: X-ray FINDINGS: There is postoperative change of the tibia with tracks from hardware that has been removed. There is distal periosteal reaction. There is focal cortical thinning and indistinctness adjacent to soft tissue swelling and defect in the skin, series 3 images 56/129 through 60/129. There is postoperative change of the distal fibula with healed fracture. There is postoperative change of the talus with deformity and nonunited fractures. There has been placement of methylmethacrylate. There is deformity with focal regions of sclerosis and lucency of the calcaneus. There are posttraumatic and postoperative changes of the metatarsals. Normal metatarsophalangeal joint of the great toe. Normal tibial and fibular sesamoid bones. Normal interphalangeal joint of the great toe. Normal phalanges of the great toe. Normal second through fifth metatarsophalangeal joints. Normal interphalangeal joints and phalanges of the lesser toes. CT/Extremity Lower without Contra IMPRESSION: Periosteal reaction and destructive change of the tibia adjacent to soft tissue defect consistent with osteomyelitis. Destruction and postoperative change of the talus and erosive change of the calcaneus with contiguous spread osteomyelitis versus inflammatory and postoperative/posttraumatic arthropathy. Electronically Signed: Shahbaz Gtz MD at 14:38 EDT , Service support ,
--- NOTE | 2019-07-03 09:03 | RAD_ITS ---
STUDY: X-RAY - LEFT FOOT CLINICAL: Female, 59 years old. INFECTION TECHNIQUE: 3 view(s) of the foot. COMPARISON: None. FINDINGS: Diffuse demineralization throughout the midfoot is present with likely old fractures of the visualized metatarsal bones similar to prior exam. There is severe destruction in irregular density of the talus and anterior calcaneus as well as destruction of the tibiotalar joint consistent with underlying Charcot joint given appearance with indwelling infection given interval appearance of osseous erosion compared to 09 September 2018 exam. There is degenerative arthrosis of the metatarsophalangeal joint of the hallux . Normal tibial and fibular sesamoid bones. There is degenerative arthrosis of the interphalangeal joint of the great toe. Demineralized phalanges of the great toe. Degenerative second through fifth metatarsophalangeal joints. Diffuse interphalangeal joint arthrosis with decreased joint space. Diffuse soft tissue swelling throughout the dorsum of the foot and plantar region of the foot. RAD/Foot min 3 Views IMPRESSION: Severe erosion and destruction of the tibiotalar joint as well as talus with findings most concerning for interval infectious destruction given comparison to 09 September 2018. Other considerations would include Charcot joint. Electronically Signed: Javier Mcmullen DO at 9:35 EDT , Service support ,
--- NOTE | 2019-07-03 09:03 | RAD_ITS ---
STUDY: X-RAY - LEFT ANKLE CLINICAL: Female, 59 years old. INFECTION TECHNIQUE: 3 view(s) of the foot. COMPARISON: None. FINDINGS: Diffuse demineralization throughout the midfoot is present with likely old fractures of the visualized metatarsal bones similar to prior exam. There is severe destruction in irregular density of the talus and anterior calcaneus as well as destruction of the tibiotalar joint consistent with underlying Charcot joint given appearance with indwelling infection given interval appearance of osseous erosion compared to 09 September 2018 exam. Normal metatarsi. There is degenerative arthrosis of the metatarsophalangeal joint of the hallux . Normal tibial and fibular sesamoid bones. There is degenerative arthrosis of the interphalangeal joint of the great toe. Demineralized phalanges of the great toe. Degenerative second through fifth metatarsophalangeal joints. Diffuse interphalangeal joint arthrosis with decreased joint space. Diffuse soft tissue swelling throughout the dorsum of the foot and plantar region of the foot. RAD/Ankle min 3 Views IMPRESSION: Severe erosion and destruction of the tibiotalar joint as well as talus with findings most concerning for interval infectious destruction given comparison to 09 September 2018. Other considerations would include Charcot joint. Electronically Signed: Javier Mcmullen DO at 9:36 EDT , Service support ,
[2019-07-03] MEDS: Allopurinol 300 MG Tablet PO (09:07)
--- NOTE | 2019-07-03 09:07 | PCM.CONS.GEN ---
Reason for Consult Date of Consultation: 07/03/19 Reason for Consultation: Left ankle ulcer and infection History of Present Illness: The patient is a 59 year old female with hx of multiple medical problems including diabetes, chronic kidney disease, as well as smoker was seen today for left ankle infection. Patient fractured her left ankle October 2017, had ORIF by Dr. Covington, ankle subsequently develop osteomyelitis, had hardware removed, ex fix placed. This never healed, and patient has been following with Dr. Elmore. Patient underwent revision surgery, had ex fix off February 2019, patient relates she had a skin graft. She relates ankle has been floppy once the ex fix was removed in February. Patient relates the wounds were healed but opened up about 1 week ago. She has drainage, and it is now infected. Patient has had multiple infections to the ankle- pseudomonas as well as MRSA, patient has been on IV antibiotics in past - she has followed with Dr. Bejarano from ID service, she has had C. Diff in the past. Patient relates she is waiting to get a brace for her ankle and her hopes are to walk again. Patient relates she has not walked since October 2017. Patient relates she believes ultimately she will have the foot/leg removed, but relates she is not ready to proceed with that. She has no other complaints. Past Medical History Past Medical History (Chronic Problems): Chronic Problems (Last Reviewed 07/03/19 @ 01:[address] Darwin Lema MD) Sleep apnea (Chronic) Recurrent dislocation of left ankle (Chronic) Alopecia (Chronic) alopecia overlying soft tissue mass right temporal parietal scalp Head mass (Chronic) 8 cm soft tissue mass right temporal parietal scalp with overlying alopecia Open left ankle fracture (Chronic) Anemia (Chronic) Rheumatoid arthritis (Chronic) Gout (Chronic) Tinea unguium (Chronic) Type 2 diabetes mellitus with diabetic polyneuropathy (Chronic) Peripheral neuropathy (Chronic) Arthritis (Chronic) Hypertension (Chronic) High cholesterol (Chronic) Hyperlipidemia (Chronic) Type 2 diabetes mellitus (Chronic) 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) Uncontrolled type 2 diabetes mellitus (Chronic) Tobacco use disorder (Chronic) Pure hypercholesterolemia (Chronic) History of hypertension (Chronic) Type 2 diabetes mellitus with diabetic polyneuropathy (Chronic) History of gout (Chronic) Obesity (Chronic) COPD (chronic obstructive pulmonary disease) (Chronic) Chronic renal insufficiency, stage III (moderate) (Chronic) Type 2 diabetes mellitus with foot ulcer (Chronic) 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 Darwin Lema MD) Recurrent dislocation of left ankle (Chronic) M24.472 Breakdown (mechanical) of other bone devices, implants and grafts, initial encounter (Inactive) T84.318A Arthritis (Chronic) M19.90 Hypertension (Chronic) I10 High cholesterol (Chronic) E78.00 Clostridium difficile infection B96.89 Gout M10.9 Heart disease I51.9 Inflammatory arthritis M19.90 Lupus L93.0 Rheumatoid arthritis M06.9 Diabetes E11.9 Allergies aspirin Allergy (Verified 07/02/19 21:48) Hives latex Allergy (Verified 07/02/19 21:48) Hives Penicillins Allergy (Verified 07/02/19 21:48) Hives simvastatin Allergy (Verified 07/02/19 21:48) Unknown naproxen [From Aleve] Adverse Reaction (Severe, Verified 07/02/19 21:48) Kidney disease Stage 3 Home Medications: Ambulatory Orders Medication Instructions Recorded Acetaminophen [Arthritis Pain 650 mg PO TID 08/10/18 Relief] Atenolol [Tenormin (beta feliberto)] 50 mg PO DAILY 08/10/18 diltiazem HCl 180 mg 180 mg PO DAILY cap 12/15/18 capsule,extended release 24 hr lisinopril 40 mg tablet 40 mg PO BID tab 12/15/18 cyclobenzaprine 10 mg tablet 10 mg PO TID PRN #90 tab 02/02/19 Allopurinol 300 mg PO DAILY 07/03/19 Blood Sugar Diagnostic [Accu-Chek See Rx Instructions .ROUTE 07/03/19 Chloe Plus test strp] .MEDSUPPLY Cholecalciferol (Vitamin D3) 50,000 unit PO MO 07/03/19 [D3-50] Gabapentin [Neurontin] 300 mg PO TID 07/03/19 Surgical History: Surgical History (Last Reviewed 07/03/19 @ 01:[address] Darwin Lema MD) History of carpal tunnel release Z98.890 History of hysterectomy Z98.890, Z90.710 History of orthopedic surgery Z98.890 Left foot amputation of right pinke toe history of 2 back sugeries history of right femoral stent history of right shoulder surgery Surgical History: - - Left ankle ORIF Psychiatric History: No pertinent psych hx [employer] History: No pertinent [employer] history Smoking Status: Current every day smoker - *Family History Maternal Family History: Family History (Last Reviewed 07/03/19 @ 01:[address] Darwin Lema MD) Mother Diabetes Hypertension CVA (cerebral vascular accident) Brother Alcoholism Sister Cancer Father Heart disease Respiratory disease History Items: - Paternal Family History: Family History (Last Reviewed 07/03/19 @ 01:[address] Darwin Lema MD) Mother Diabetes Hypertension CVA (cerebral vascular accident) Brother Alcoholism Sister Cancer Father Heart disease Respiratory disease History Items: - Review of Systems Constitutional: Denies: Chills, Fever Gastrointestinal: Denies: Nausea, Vomiting Musculoskeletal: Reports: Joint Pain Skin: Reports: Wounds Patient Problems: Active and Suspected Problems (Last Reviewed 07/03/19 @ 01:[address] Darwin Lema MD) Osteomyelitis (Acute) Objective: Left foot/ankle/tib/fib xrays - there is extensive osseous changes and destruction present to the ankle and hindfoot, there is significant osteopenia present, there has been attempts at ankle and subtalar fusion with grafting, but there is nonunion of the ankle joint and subtalar joint with significant gapping. No gas in the tissues. - Physical Exam Vitals/I&O's: Vital Signs Temp Pulse Resp BP Pulse Ox 97.8 F 67 18 127/68 H 100 07/03/19 02:50 07/03/19 02:50 07/03/19 02:50 07/03/19 02:50 07/03/19 02:50 Oxygen Delivery Method Room Air Weight: 98.2 kg Body Mass Index (BMI) 34.9 Finger Stick Blood Glucose 163 Intake and Output for Last 24 Hours 07/01/19 07/02/19 07/03/19 23:59 23:59 23:59 Intake Total 200 / 200 580 / 580 Balance 200 / 200 580 / 580 General: Alert, Oriented x3, Cooperative, No apparent distress Extremities: Capillary Refill Less than 3 Seconds, No Calf Tenderness, - - There is severe instability to the left foot/ankle. There is ulceration to the medial ankle which probed to the ankle and hindfoot with purulent drainage, there is ulceration to the anterior ankle down to subcutaneous tissue. There no crepitus, no fluctuance, no visible abscess to the left foot/ankle. There is peripheral neuropathy to the foot/ankle - significant decreased sensation to the left foot/ankle, there is no POP or pain on ROM to the left foot/ankle. There is significant weakness of the left foot/ankle. There is no evidence of acute ischemia to the left foot/ankle. Musculoskeletal: No Tenderness to Palpation of Joints or Extremities Psych/Mental Status: Normal Affect, Alert and oriented to time, place, person, mood and affect Laboratory Results 07/02/19 22:00: WBC 17.2 H, RBC 3.06 L, Hgb 8.0 L, Hct 25.7 L, MCV 84.0, MCH 26.1 L, MCHC 31.1 L, RDW Std Deviation 52.0 H, RDW Coeff of Rache[place] 17.0 H, Plt Count 464 H, MPV 9.1, Immature Gran % (Auto) 4.900 H, Neut % (Auto) 70.8 H, Lymph % (Auto) 14.0 L, [place] % (Auto) 7.3, Eos % (Auto) 2.5, Baso % (Auto) 0.5, Absolute Neuts (auto) 12.2 H, Absolute Lymphs (auto) 2.41, Nucleated RBC % 0, ESR 92 H 07/02/19 22:00: Sodium 135 L, Potassium 5.4 H, Chloride 108 H, Carbon Dioxide 19.0 L, Anion Gap 8, BUN 70 H, Creatinine 2.81 H, Estim Creat Clear Calc 19.68, Est GFR (MDRD) Af Amer 22 L, Est GFR (MDRD) Non-Af 18 L, BUN/Creatinine Ratio 24.9 H, Glucose 151 H, Calcium 8.7, C-React Prot Ext Range 189.00 H 07/03/19 06:30: WBC 20.1 H, RBC 3.01 L, Hgb 7.8 L, Hct 25.3 L, MCV 84.1, MCH 25.9 L, MCHC 30.8 L, RDW Std Deviation 53.0 H, RDW Coeff of [place] 17.2 H, Plt Count 471 H, MPV 9.3, Immature Gran % (Auto) 3.900 H, Neut % (Auto) 78.2 H, Lymph % (Auto) 8.2 L, [place] % (Auto) 7.2, Eos % (Auto) 2.1, Baso % (Auto) 0.4, Absolute Neuts (auto) 15.7 H, Absolute Lymphs (auto) 1.65, Nucleated RBC % 0 07/03/19 06:30: Sodium 141, Potassium 6.3 H*, Chloride 115 H, Carbon Dioxide 16.0 L, Anion Gap 10, BUN 68 H, Creatinine 2.65 H, Estim Creat Clear Calc 20.87, Est GFR (MDRD) Af Amer 24 L, Est GFR (MDRD) Non-Af 19 L, BUN/Creatinine Ratio 25.7 H, Glucose 129 H, Calcium 8.8 07/03/19 06:49: POC Glucose 128 H Current Medications Acetaminophen (Tylenol) 500 mg PO Q6 [facility] Last Admin: 07/03/19 05:58 Dose: 500 mg Documented by: [facility] Cyclobenzaprine HCl (Flexeril) 10 mg PO TID PRN PRN PRN Reason: muscle spasm Dextrose (D50w Syringe) 0 gm IV X1 PRN; Protocol PRN Reason: Hypoglycemia Diltiazem HCl (Cardizem Cd) 180 mg PO DAILY [facility] Gabapentin (Neurontin) 100 mg PO TID [facility] Last Admin: 07/03/19 05:59 Dose: 100 mg Documented by: Glucagon () 1 mg IM .X1 PRN PRN Reason: Hypoglycemia Heparin Sodium (Porcine) (Heparin Na) 5,000 unit SC Q8 [facility] Last Admin: 07/03/19 06:01 Dose: 5,000 unit Documented by: Sodium Chloride () 1,000 mls @ 75 mls/hr IV .[id number] [facility] Last Infusion: 07/03/19 02:36 Dose: 75 mls/hr Documented by: Sodium Chloride () 250 mls @ 15 mls/hr IV .[id number] PRN PRN Reason: Saline Flush Sodium Chloride () 250 mls @ 15 mls/hr IV .[id number] PRN PRN Reason: Additional IVPB Infusion Vancomycin IV Pharmacy to Dose (1,500 ea/ Sodium Chloride) 500 mls @ 250 mls/hr IV PRN PRN; Protocol Piperacillin Sod/Tazobactam (Sod 3.375 gm/ Sodium Chloride) 50 mls @ 12.5 mls/hr IV Q12 [facility] Last Infusion: 07/03/19 07:14 Dose: Infused Documented by: Insulin Human Lispro (Humalog Kwikpen (Bkc)) 0 unit SC ACHS [facility]; Protocol Last Admin: 07/03/19 06:49 Dose: Not Given Documented by: Melatonin (Melatonin) 3 mg PO QHS PRN PRN PRN Reason: INSOMNIA Last Admin: 07/03/19 00:31 Dose: 3 mg Documented by: Ondansetron HCl (Zofran) 4 mg IV Q8H PRN PRN PRN Reason: NAUSEA/VOMITING Sodium Chloride () 10 - 40 ml IV UD PRN PRN Reason: SALINE FLUSH Assessment/Plan All Active Problems (Last Reviewed 07/03/19 @ 01:[address] Darwin Lema MD) Osteomyelitis (Acute) Acute osteomyelitis involving ankle and foot (Acute) Diabetic foot ulcer associated with type 2 diabetes mellitus (Acute) Tobacco abuse counseling (Acute) Left ankle fracture w/ hx of multiple surgeries Severe instability of foot and ankle, left Osteomyelitis, left ankle and hindfoot Charcot Neuroarthropathy, left foot/ankle Diabetes w/ peripheral neuropathy Tobacco Use Other Comorbidities Reviewed diagnostic data. Reviewed history and current findings with patient. Left tib/fib xrays were reviewed - left foot and ankle xrays along with a CT scan was ordered for further evaluation. Given the severe instability of the foot and ankle with findings consistent with extensive osteomyelitis, patient would likely be best served with a below knee amputation, however we will proceed with further imaging as noted above. This was discussed with her in detail, she started crying - stating she knows she will eventually have to have the amputation, but she relates she just is not ready to have that completed yet - she relates she has gone through to much to have the foot/leg removed at this time. Spoke w/ medicine team and we will consult orthopedics as well. A culture has been obtained, and is pending. Continue with board spectrum antibiotics at this time. The site was flushed out with copious amounts of normal saline solution. Packed site with Betadine gauze, and applied overlying gauze, kerlix and macario dressing. We will plan to apply a posterior splint. Podiatry will continue to follow. Thank you for consult.
[2019-07-03] MEDS: dilTIAZem CD 180 MG Capsule PO (09:08)
[2019-07-03] MEDS: Insulin Lispro 100 UNIT/ML INSULN.PEN 10 UNIT SC (10:14)
[2019-07-03] MEDS: Dextrose 50%-Water 25 GM/50 ML DISP.SYRIN IV (10:16)
[2019-07-03] MEDS: Insulin Lispro 100 UNIT/ML INSULN.PEN SC (11:49)
--- NOTE | 2019-07-03 12:23 | PCM.PN.HOSP ---
<Cuco Webber - Last Filed: 07/03/19 12:23> Patient Problems: Active and Suspected Problems (Last Reviewed 07/03/19 @ 01:[address] Darwin Lema MD) Osteomyelitis (Acute) Reason for Visit: L foot osteomyelitis. Subjective: LLE pain Objective: Pt has lost balance and put sudden heavy pressure on the affected extremity (L foot/ankle) 3 times this week. She is supposed to be NWB. She also was scraping skin from her foot and detached her skin graft this week with excessive bleeding. She started taking old Rx of doxycyline at home this week, however did not have any improvement and had increased drainage from the wound prompting her visit to the ER. Vitals/I&O's: Vital Signs Temp Pulse Resp BP Pulse Ox 97.5 F L 78 18 120/74 100 07/03/19 08:50 07/03/19 08:50 07/03/19 08:50 07/03/19 08:50 07/03/19 08:50 Oxygen Delivery Method Room Air Weight: 216 lb 7.903 oz Body Mass Index (BMI) 34.9 Finger Stick Blood Glucose 163 Intake and Output for Last 24 Hours 07/01/19 07/02/19 07/03/19 23:59 23:59 23:59 Intake Total 200 / 200 580 / 580 Balance 200 / 200 580 / 580 General: Alert, Oriented x3, Cooperative HEENT: Atraumatic, PERRLA, EOMI, Normocephalic Neck: Supple, No JVD, Negative Carotid Bruits Lungs: Clear to auscultation, Normal air movement Cardiovascular: Regular rate, No murmurs Abdomen: Bowel Sounds Present, Soft, Non Tender Extremities: Capillary Refill Less than 3 Seconds, Edema - LLE edema, tenderness Skin: No rashes, No breakdown Musculoskeletal: No Tenderness to Palpation of Joints or Extremities Neurological: Cranial nerves II-XII grossly intact Psych/Mental Status: Anxious, Alert and oriented to time, place, person, mood and affect Laboratory Results 07/02/19 22:00: WBC 17.2 H, RBC 3.06 L, Hgb 8.0 L, Hct 25.7 L, MCV 84.0, MCH 26.1 L, MCHC 31.1 L, RDW Std Deviation 52.0 H, RDW Coeff of Racheal 17.0 H, Plt Count 464 H, MPV 9.1, Immature Gran % (Auto) 4.900 H, Neut % (Auto) 70.8 H, Lymph % (Auto) 14.0 L, Coke % (Auto) 7.3, Eos % (Auto) 2.5, Baso % (Auto) 0.5, Absolute Neuts (auto) 12.2 H, Absolute Lymphs (auto) 2.41, Nucleated RBC % 0, ESR 92 H 07/02/19 22:00: Sodium 135 L, Potassium 5.4 H, Chloride 108 H, Carbon Dioxide 19.0 L, Anion Gap 8, BUN 70 H, Creatinine 2.81 H, Estim Creat Clear Calc 19.68, Est GFR (MDRD) Af Amer 22 L, Est GFR (MDRD) Non-Af 18 L, BUN/Creatinine Ratio 24.9 H, Glucose 151 H, Calcium 8.7, C-React Prot Ext Range 189.00 H 07/03/19 06:30: WBC 20.1 H, RBC 3.01 L, Hgb 7.8 L, Hct 25.3 L, MCV 84.1, MCH 25.9 L, MCHC 30.8 L, RDW Std Deviation 53.0 H, RDW Coeff of Racheal 17.2 H, Plt Count 471 H, MPV 9.3, Immature Gran % (Auto) 3.900 H, Neut % (Auto) 78.2 H, Lymph % (Auto) 8.2 L, Coke % (Auto) 7.2, Eos % (Auto) 2.1, Baso % (Auto) 0.4, Absolute Neuts (auto) 15.7 H, Absolute Lymphs (auto) 1.65, Nucleated RBC % 0 07/03/19 06:30: Sodium 141, Potassium 6.3 H*, Chloride 115 H, Carbon Dioxide 16.0 L, Anion Gap 10, BUN 68 H, Creatinine 2.65 H, Estim Creat Clear Calc 20.87, Est GFR (MDRD) Af Amer 24 L, Est GFR (MDRD) Non-Af 19 L, BUN/Creatinine Ratio 25.7 H, Glucose 129 H, Calcium 8.8 07/03/19 06:49: POC Glucose 128 H Current Medications Acetaminophen (Tylenol) 500 mg PO Q6 [facility] Last Admin: 07/03/19 11:50 Dose: 500 mg Documented by: Allopurinol (Zyloprim) 300 mg PO DAILYCM COUNTS INCLUDE 234 BEDS AT THE [facility] Last Admin: 07/03/19 09:07 Dose: 300 mg Documented by: Cyclobenzaprine HCl (Flexeril) 10 mg PO TID PRN PRN PRN Reason: muscle spasm Dextrose (D50w Syringe) 0 gm IV X1 PRN; Protocol PRN Reason: Hypoglycemia Diltiazem HCl (Cardizem Cd) 180 mg PO DAILY COUNTS INCLUDE 234 BEDS AT THE [facility] Last Admin: 07/03/19 09:08 Dose: 180 mg Documented by: Gabapentin (Neurontin) 100 mg PO TID COUNTS INCLUDE 234 BEDS AT THE [facility] Last Admin: 07/03/19 05:59 Dose: 100 mg Documented by: Glucagon () 1 mg IM .X1 PRN PRN Reason: Hypoglycemia Heparin Sodium (Porcine) (Heparin Na) 5,000 unit SC Q8 COUNTS INCLUDE 234 BEDS AT THE [facility] Last Admin: 07/03/19 06:01 Dose: 5,000 unit Documented by: Sodium Chloride () 1,000 mls @ 125 mls/hr IV .Q8H COUNTS INCLUDE 234 BEDS AT THE [facility] Last Infusion: 07/03/19 02:36 Dose: 75 mls/hr Documented by: Sodium Chloride () 250 mls @ 15 mls/hr IV .[id number] PRN PRN Reason: Additional IVPB Infusion Vancomycin IV Pharmacy to Dose (1,500 ea/ Sodium Chloride) 500 mls @ 250 mls/hr IV PRN PRN; Protocol Piperacillin Sod/Tazobactam (Sod 3.375 gm/ Sodium Chloride) 50 mls @ 12.5 mls/hr IV Q12 COUNTS INCLUDE 234 BEDS AT THE [facility] Last Admin: 07/03/19 10:10 Dose: 12.5 mls/hr Documented by: Insulin Human Lispro (Humalog Kwikpen (Bkc)) 0 unit SC ACHS COUNTS INCLUDE 234 BEDS AT THE [facility]; Protocol Last Admin: 07/03/19 11:49 Dose: 1 u Documented by: Melatonin (Melatonin) 3 mg PO QHS PRN PRN PRN Reason: INSOMNIA Last Admin: 07/03/19 00:31 Dose: 3 mg Documented by: Nutritional Formula (Pancho - Dahinda Flavor) 1 packet PO BIDCM COUNTS INCLUDE 234 BEDS AT THE [facility] Ondansetron HCl (Zofran) 4 mg IV Q8H PRN PRN PRN Reason: NAUSEA/VOMITING Sodium Chloride () 10 - 40 ml IV UD PRN PRN Reason: SALINE FLUSH STROKE Vital Signs/Narrative: Vital Signs Temp Pulse Resp BP Pulse Ox 07/03/19 08:50 97.5 F L 78 18 120/74 100 Medical Necessity - Tobacco Use Smoking Status: Current every day smoker Assessment/Plan All Active Problems (Last Reviewed 07/03/19 @ 01:[address] Darwin Lema MD) Osteomyelitis (Acute) Acute osteomyelitis involving ankle and foot (Acute) Diabetic foot ulcer associated with type 2 diabetes mellitus (Acute) Tobacco abuse counseling (Acute) 1. Osteomyelitis Left ankle - multiple prior surgeries, hx Pseudomonas, MRSA. Podiatry following - I/D tomorrow. Continue vanc/zosyn. Elevated ESR/CRP. Pt likely needs amputations. c/s to Dr. Ray. Complicated by DMt2 and Ongoing Nicotine abuse. Consult ID on Friday. WBC 17k-->20k, afebrile. initial injury was trimalleolar fx about 2 years ago. 2. Chronic normocytic anemia - 8.0-->7.8. Baseline around 9. Trend. No obvious bleeding. 3. Hyperkalemia - insulin and d50 given. recheck this afternoon. 4. JOEY on CKD IV - continue IV fluids, correct K as above. macario held. 5. DMt2 - diet controlled only at home. check a1c. SSI. 6. hx gout - allopurinol continued. 7. HTN - macario held, atenolol. DVT ppx: heparin DC planning: PTOT. may need amputation. balance issues at home with near falls leading to this admission. This patient was seen by Cuco Webber PA-C under the supervision of Dr. Hillman. <Everett Hillman F - Last Filed: 07/03/19 15:00> Vitals/I&O's: Vital Signs Temp Pulse Resp BP Pulse Ox 97.5 F L 78 18 120/74 100 07/03/19 08:50 07/03/19 08:50 07/03/19 08:50 07/03/19 08:50 07/03/19 08:50 Oxygen Delivery Method Room Air Weight: 216 lb 7.903 oz Body Mass Index (BMI) 34.9 Finger Stick Blood Glucose 163 Intake and Output for Last 24 Hours 07/01/19 07/02/19 07/03/19 23:59 23:59 23:59 Intake Total 200 / 200 1480 / 1480 Output Total 500 / 500 Balance 200 / 200 980 / 980 Microbiology Past 72 Hours 07/02/19 22:01 Wound - Ankle Gram Stain - Final Laboratory Results 07/02/19 22:00: WBC 17.2 H, RBC 3.06 L, Hgb 8.0 L, Hct 25.7 L, MCV 84.0, MCH 26.1 L, MCHC 31.1 L, RDW Std Deviation 52.0 H, RDW Coeff of Racheal 17.0 H, Plt Count 464 H, MPV 9.1, Immature Gran % (Auto) 4.900 H, Neut % (Auto) 70.8 H, Lymph % (Auto) 14.0 L, Coke % (Auto) 7.3, Eos % (Auto) 2.5, Baso % (Auto) 0.5, Absolute Neuts (auto) 12.2 H, Absolute Lymphs (auto) 2.41, Nucleated RBC % 0, ESR 92 H 07/02/19 22:00: Sodium 135 L, Potassium 5.4 H, Chloride 108 H, Carbon Dioxide 19.0 L, Anion Gap 8, BUN 70 H, Creatinine 2.81 H, Estim Creat Clear Calc 19.68, Est GFR (MDRD) Af Amer 22 L, Est GFR (MDRD) Non-Af 18 L, BUN/Creatinine Ratio 24.9 H, Glucose 151 H, Calcium 8.7, C-React Prot Ext Range 189.00 H 07/03/19 06:30: WBC 20.1 H, RBC 3.01 L, Hgb 7.8 L, Hct 25.3 L, MCV 84.1, MCH 25.9 L, MCHC 30.8 L, RDW Std Deviation 53.0 H, RDW Coeff of Racheal 17.2 H, Plt Count 471 H, MPV 9.3, Immature Gran % (Auto) 3.900 H, Neut % (Auto) 78.2 H, Lymph % (Auto) 8.2 L, Coke % (Auto) 7.2, Eos % (Auto) 2.1, Baso % (Auto) 0.4, Absolute Neuts (auto) 15.7 H, Absolute Lymphs (auto) 1.65, Nucleated RBC % 0 07/03/19 06:30: Sodium 141, Potassium 6.3 H*, Chloride 115 H, Carbon Dioxide 16.0 L, Anion Gap 10, BUN 68 H, Creatinine 2.65 H, Estim Creat Clear Calc 20.87, Est GFR (MDRD) Af Amer 24 L, Est GFR (MDRD) Non-Af 19 L, BUN/Creatinine Ratio 25.7 H, Glucose 129 H, Calcium 8.8 07/03/19 06:49: POC Glucose 128 H 07/03/19 11:46: POC Glucose 152 H 07/03/19 14:00: Sodium 139, Potassium 5.6 H, Chloride 113 H, Carbon Dioxide 17.0 L, Anion Gap 9, BUN 62 H, Creatinine 2.68 H, Estim Creat Clear Calc 20.64, Est GFR (MDRD) Af Amer 23 L, Est GFR (MDRD) Non-Af 19 L, BUN/Creatinine Ratio 23.1 H, Glucose 115 H, Calcium 8.4 L 07/03/19 14:00: Hemoglobin A1c 6.5 H Current Medications Acetaminophen (Tylenol) 500 mg PO Q6 COUNTS INCLUDE 234 BEDS AT THE [facility] Last Admin: 07/03/19 11:50 Dose: 500 mg Documented by: [facility] Last Admin: 07/03/19 09:07 Dose: 300 mg Documented by: Atenolol (Tenormin (Beta Jona)) 50 mg PO DAILY COUNTS INCLUDE 234 BEDS AT THE [facility] Cyclobenzaprine HCl (Flexeril) 10 mg PO TID PRN PRN PRN Reason: muscle spasm Last Admin: 07/03/19 14:08 Dose: 10 mg Documented by: Dextrose (D50w Syringe) 0 gm IV X1 PRN; Protocol PRN Reason: Hypoglycemia Diltiazem HCl (Cardizem Cd) 180 mg PO DAILY COUNTS INCLUDE 234 BEDS AT THE [facility] Last Admin: 07/03/19 09:08 Dose: 180 mg Documented by: Gabapentin (Neurontin) 100 mg PO TID COUNTS INCLUDE 234 BEDS AT THE [facility] Last Admin: 07/03/19 14:08 Dose: 100 mg Documented by: Glucagon () 1 mg IM .X1 PRN PRN Reason: Hypoglycemia Heparin Sodium (Porcine) (Heparin Na) 5,000 unit SC Q8 COUNTS INCLUDE 234 BEDS AT THE [facility] Last Admin: 07/03/19 06:01 Dose: 5,000 unit Documented by: Sodium Chloride () 1,000 mls @ 125 mls/hr IV .Q8H COUNTS INCLUDE 234 BEDS AT THE [facility] Last Infusion: 07/03/19 02:36 Dose: 75 mls/hr Documented by: Sodium Chloride () 250 mls @ 15 mls/hr IV .[id number] PRN PRN Reason: Additional IVPB Infusion Vancomycin IV Pharmacy to Dose (1,500 ea/ Sodium Chloride) 500 mls @ 250 mls/hr IV PRN PRN; Protocol Piperacillin Sod/Tazobactam (Sod 3.375 gm/ Sodium Chloride) 50 mls @ 12.5 mls/hr IV Q12 COUNTS INCLUDE 234 BEDS AT THE [facility] Last Infusion: 07/03/19 14:10 Dose: Infused Documented by: Insulin Human Lispro (Humalog Kwikpen (Bkc)) 0 unit SC ACHS COUNTS INCLUDE 234 BEDS AT THE [facility]; Protocol Last Admin: 07/03/19 11:49 Dose: 1 u Documented by: Melatonin (Melatonin) 3 mg PO QHS PRN PRN PRN Reason: INSOMNIA Last Admin: 07/03/19 00:31 Dose: 3 mg Documented by: Nutritional Formula (Pancho - Dahinda Flavor) 1 packet PO BIDCM COUNTS INCLUDE 234 BEDS AT THE [facility] Ondansetron HCl (Zofran) 4 mg IV Q8H PRN PRN PRN Reason: NAUSEA/VOMITING Sodium Chloride () 10 - 40 ml IV UD PRN PRN Reason: SALINE FLUSH Addendum: Dr. Hillman I personally examined the patient and reviewed the chart. I agree with the above. 59-year-old female who is a former smoker, as well as diabetes with peripheral neuropathy had a left ankle fracture that is been being managed for the last year and a half. She had an ex fix which was removed in February and is supposed be wearing a brace and be nonweightbearing. She says that it has looked like it and getting better until she tried to scrape off some thickened skin and she caused a wound in her foot about a week ago since then it is gotten worse with purulent drainage. X-ray demonstrates osteo-and there is also can be chronic degenerative changes based on the multiple surgical intervention she has had. We will continue with IV antibiotics for now however were having continued discussions with her that the best option is likely amputation in terms of recovering her ability to ambulate as well as management of chronic infections. Inpatient E&M: 40741 Subs Hosp L2
[2019-07-03 12:36] LABS: Bedside Glucose 152 mg/dL (70-110)
--- NOTE | 2019-07-03 13:25 | CM.UR ---
RN CM Assessment Introduced role of RN CM to patient. Patient is alert and able to participate in RN CM Assessment. Care providers, pharmacy, and demographics verified. No family at bedside. Presentation: Increased drainage from ankle wound Admit Dx: Prob osteomyelitis Re-Admit: no Barriers/Issues: None PCP: Dr. Newton Specialists: Dr. Weldon, Dr. Martin Preferred Pharmacy: [facility] Insurance: [employer] [facility] Rx Benefit: yes LNOK: MomCarie Living Arrangements: Lives with mother in a one story handicap accessible ranch home. ADL?s: states she is modified independent with all ADLs. States her brother is helping with running errands, getting mail, mowing lawn, etc. Her son used to do all that but he is currently inpatient at [facility] for his Schizophrenia. Transportation: States she depends on wheelchair vans for her transportation. DME: cane, walker, wheelchair, transfer chair and hospital bed. HHC: [facility] SNF: [facility], [facility] ([facility]), [facility]. States does not want to return to [facility] and not [facility]. Goal: Home DC PLAN: Discussed home vs facility. Patient states she can do group home IVAB at home. States she has learned in past and can do it again if necessary. States she knows ultimately she will lose her foot but she is trying to fight that as long as she can. Tigist Mann RN, [facility].
[2019-07-03] MEDS: cycloBENZAPRine HCl 10 MG Tablet PO ×2 (14:08→21:20)
[2019-07-03 14:30] LABS: Anion Gap 9 (5-15); BUN 62 mg/dL (7-18); BUN/Creat Ratio 23.1 RATIO (10-20); Calcium,Total 8.4 mg/dL (8.5-10.1); Chloride 113 mmol/L (98-107); Creatinine, Serum 2.68 mg/dL (0.55-1.02); EST Glomerular Filtration Rate 19 mL/min (>60); Est Glom Filt Rate - Afr Amer 23 mL/min (>60); Estimated Creatinine Clearance 20.64 ml/min; Glucose 115 mg/dL (74-106); Potassium 5.6 mmol/L (3.5-5.1); Sodium Level 139 mmol/L (136-145)
[2019-07-03 14:38] LABS: Hemoglobin A1c 6.5 % (4.2-6.3)
--- NOTE | 2019-07-03 15:30 | RAD_ITS ---
STUDY: X-RAY CHEST REASON FOR EXAM: Female, 59 years old. PRE OP, OSTEOMYELITIS, NO CHEST COMPLAINTS TECHNIQUE: Single frontal view of the chest. COMPARISON: 02/17/2018 FINDINGS: Carotid calcifications. The lungs are clear and expanded. There is no demonstrated pleural abnormality. Stable cardiomediastinal silhouette. Normal mediastinum and josie. Normal visualized pulmonary arteries. Normal visualized aortic arch and descending thoracic aorta. Normal visualized thoracic spine. Normal visualized ribs, clavicles, and shoulders. There is no demonstrated abnormality of the visualized soft tissue structures of the upper abdomen. RAD/Chest 1 View (Portable) IMPRESSION: No acute pulmonary findings. Electronically Signed: Ck Rand MD at 21:10 EDT Tel , Service support ,
[2019-07-03 17:15] LABS: Bedside Glucose 89 mg/dL (70-110)
[2019-07-03 21:30] VITALS: BP 132/85; PULSE 82; RESP 18; TEMP 36.6; O2SAT 100
[2019-07-03 21:56] LABS: Bedside Glucose 119 mg/dL (70-110)
[2019-07-03] MEDS: 0.9% Normal Saline 1,000 ML 125 ML IV (23:49)
[2019-07-04] VITALS (11 sets, daily range): BP systolic 99–158; BP diastolic 46–89; PULSE 69–88; RESP 16–18; TEMP 36.5–37; O2SAT 95–100; BMI 34.4
--- NOTE | 2019-07-04 | DEB_PTH ---
PATIENT: ALEAH BARKER LOC: [facility] U#:[id number] AGE/SX: 59/F ROOM: [facility] RE07/02/[address]: Dr. Stephanie Roland MD : 1960 BED: 1 DIS: 07/14/2019 SPEC #: [id number] RECD: 07/05/19 12:35 STATUS: ENRICO REQ #: [id number] ELIAS: 07/04/19 00:[address]: Sebas Weldon DEPT: SURGICAL PATHOLOGY RECD BY: Demetrius Sparks ENTERED: 07/05/19 12:35 SP TYPE: LALA TISS OTHR DR: MD Dr. Darwin Greer MD Dr. Jeffrey Wunning, DPM DO Dr. Shimon Rosas MD Tissues: Soft tissues, NOS Procedures: Decalcification bone/plaque Surgery Specimen Level IV Comments: @ Ordering doctor for SUIII edited from to @ by MARILEE at 07/05/19 1251 @ Submitting doctor edited from to @ by KYLEEOD at 07/05/19 1251 HEADER OPERATION: Incision and drainage abscess left foot and ankle PRE-OP DIAGNOSIS: Diabetic foot ulcer TISSUE SUBMITTED: Debrided left ankle and foot MICROSCOPIC DIAGNOSIS Bone and soft tissue of left ankle and foot, biopsy: Soft tissue with acute and chronic inflammation and granulation. Bone with acute osteomyelitis. AM:jason 07/08/19 COMMENT Case has been reviewed in consultation with Dr. Holloway who concurs with the above diagnosis. IDC:SJ MICROSCOPIC DESCRIPTION Slides are reviewed. GROSS DESCRIPTION Received in fixative is one container labeled with the patient's name and designated debrided left ankle and foot. The specimen consists of multiple irregular fragments of light pérez soft tissue and bone that in aggregate measure 7 x 6 x 1.5 cm. Also present in the container is an irregular piece consistent of cement bone material measuring 4.5 x 4 x 3 cm. Net Applications Developer tissue is submitted in two cassettes after decalcification. / JOSE LUIS:jason 07/05/19 TC:2 CPT: 34730, 89417
--- NOTE | 2019-07-04 05:00 | EKG12_ITS ---
Test Reason : AM EKG Blood Pressure : / mmHG Vent. Rate : 078 BPM Atrial Rate : 078 BPM P-R Int : 160 ms QRS Dur : 094 ms QT Int : 392 ms P-R-T Axes : 031 021 031 degrees QTc Int : 446 ms Normal sinus rhythm T wave abnormality, consider anterior ischemia Abnormal ECG When compared with ECG of 04-MAR-2018 11:03, Premature ventricular complexes are no longer Present Confirmed by SIMIN SKINNER, REIN ([id number]), food expeditor BUTCH PATTERSON ([id number]) on 07/06/2019 2:34:02 PM Referred By: MANOJ Confirmed By:ERIN DUVAL MD
[2019-07-04 05:44] LABS: Absolute Lymphocyte Count 1.71 X10^3/uL (0.83-4.51); Absolute Neutrophil Count 11.9 X10^3/uL (2.0-7.7); Basophil% 0.6 % (0-1); Eosinophil# 0.47 X10^3/uL; Hematocrit 27.2 % (37-47); Hemoglobin 8.4 g/dL (12.0-15.0); Lymphocyte # 1.71 X10^3/ul (4.0); Lymphocyte % 10.8 % (19-41); Mean Corp Hgb Conc 30.9 g/dL (32-36); Mean Corpuscular Hgb 26.5 pg (27.0-32.0); Mean Corpuscular Volume 85.8 fL (81-99); Mean Platelet Vol. 8.8 fl (6.2-12.0); Monocyte# 1.06 X10^3/uL; Monocyte% 6.7 % (0-10); NRBC Flagged by Analyzer 0 % (0-5); Neutrophil # 11.85 X10^3/uL (2.7-7.7); Neutrophil % 74.9 % (47-70); Platelet Count 447 K/mm3 (150-450); RBC Distribution Width CV 17.2 % (11.6-14.6); RBC Distribution Width SD 52.9 fl (35.1-43.9); Red Blood Count 3.17 M/mm3 (4.2-5.4); White Blood Count 15.8 K/mm3 (4.4-11.0)
[2019-07-04 05:50] LABS: International Normalized Ratio 1.3; Prothrombin Time (Protime)PT. 15.5 SECONDS (11.7-14.9)
[2019-07-04 05:51] LABS: Partial Thromboplast Time 33.4 Seconds (24.1-36.2)
[2019-07-04 06:05] LABS: Anion Gap 7 (5-15); BUN 57 mg/dL (7-18); BUN/Creat Ratio 23.5 RATIO (10-20); Calcium,Total 9.2 mg/dL (8.5-10.1); Chloride 115 mmol/L (98-107); Creatinine, Serum 2.43 mg/dL (0.55-1.02); EST Glomerular Filtration Rate 22 mL/min (>60); Est Glom Filt Rate - Afr Amer 26 mL/min (>60); Estimated Creatinine Clearance 22.76 ml/min; Glucose 96 mg/dL (74-106); Sodium Level 140 mmol/L (136-145)
[2019-07-04 06:21] LABS: Vancomycin, Random Level 11.5 ug/mL (0.0-15.0)
[2019-07-04 06:50] LABS: Bedside Glucose 93 mg/dL (70-110)
[2019-07-04] MEDS: Bupivacaine Mpf 0.5% 30 ML VIAL (08:00)
--- NOTE | 2019-07-04 08:13 | PCM.OPRPT ---
Report of Operation Date of Procedure: 07/04/19 Pre-Operative Diagnosis: Ulcer down to necrotic bone, abscess, osteomyelitis left ankle Post-Operative Diagnosis: Same Surgery/Procedure Performed:: Incision, drainage and debridement of left ankle down to bone manager market research: None Type of Anesthesia:: Local MAC Specimen's removed: 1. Debrided soft tissue and bone from left ankle/hindfoot sent to pathology. 2. Bone biopsy of the left tibia and calcaneus sent to microbiology Estimated Blood Loss (mL): 10mL Description of Procedure: Indications: This is a 59 year old female with multiple medical problems including diabetes, peripheral neuropathy, chronic kidney disease, tobacco use presented to the ER with draining ulceration left ankle. She has hx of left ankle fracture s/p ORIF by Dr. Covington, ankle subsequently develop osteomyelitis, had hardware removed, ex fix placed. This never healed, and patient has been following with Dr. Elmore. Patient underwent revision surgery, had ex fix off February 2019, patient relates she had a skin graft. She relates ankle has been floppy once the ex fix was removed in February. Patient relates the wounds were healed but opened up about 1 week ago. She has drainage, and it is now infected. Patient has had multiple infections to the ankle- pseudomonas as well as MRSA, patient has been on IV antibiotics in past - she has followed with Dr. Bejarano from ID service, she has had C. Diff in the past. Upon presentation to the [facility] there was purulence draining from ulceration, ankle very very unstable, xrays and CT scan consistent with osteomyelitis to the ankle/hindfoot, WBC at 20, and ESR 92. Patient was admitted for IV antibiotics and further management. Given the findings a more proximal amputation has been recommended - staged, with ankle disarticulation first, then eventual BKA or AKA. Reviewed rationale of this with patient in great detail, she refuses an amputation at this time, relates she is not ready to have this amputated. Reviewed risks of increased chance of worsening infection, spread of infection, further complications and disability, as well as with refusing to proceed with amputation. She expressed understanding and agreement. She relates she still does not want to proceed with the amputation and wants to give more time. She was agreeable to do an incision, drainage and debridement to the left ankle/hindfoot without doing amputation. This was discussed with her in detail. Reviewed the possible benefits vs risks, goals, expectations as well. Patient was advised the risks include but not limited to pain, further infection, worsening infection, disability, swelling, loss of function, loss of limb and loss of life - many she already has and/or will need eventually. The consent form was reviewed with patient in detail. She freely signed it. No guarantees were given. Operative Procedure: The patient was brought back into the operating room and was placed on the operating room table in the supine position. The patient was secured to the operating room table with a safety belt around her waist. The patient was already on IV antibiotics. A timeout was performed and the patient was properly identified and the surgical plan was confirmed. The patient received MAC anesthesia per the anesthesia team. The skin was cleansed with 70% Isopropyl alcohol and a left ankle nerve block was completed using a total of 10mL of 0.5% Bupivacaine plain. A well padded left ankle pneumatic tourniquet was applied around the left high ankle. The left foot and ankle were scrubbed, prepped, and draped in the usual aseptic fashion. Further attention was directed to the left foot/ankle. There was a very deep ulceration to the medial ankle as well as to the anterior ankle level. Thye medial ankle ulceration probed to tibial and residual calcaneus bone. There was purulence and necrosis present. There was edema and some cellulitis to the left ankle. The anterior ankle ulceration was down to the subcutaneous tissue layer. The hindfoot and ankle were extremely unstable and very floppy. The left foot was elevated for 3 minutes and the left ankle pneumatic tourniquet was inflated. At this time the ulcerations were debrided and excised using a 15 blade, down to bone. The nonviable, necrotic tissue was debrided, there was chronic abscess tissue which was excised from the site. The bone to the site (tibia and calcaneus) were necrotic, soft and nonviable - these were debrided - in which as sample was obtained and sent to microbiology for bone biopsy. The ulceration was debrided down to bone removing the chronic abscess, and as much nonviable, infected, necrotic bone as possible however the only way to remove all of this would be an amputation which the patient refused as noted above. The bone cement was noted in the site and was very loose - it was removed. All debrided tissue was sent to pathology as specimen. The derided tissue site measured 8cm x 3cm and 7cm in depth. The anterior ankle ulceration was debrided down to subcutaneous tissue in sharp excisional fashion down to healthy viable tissue base and margins- post debridement it measured 1cm x 2.5cm and 0.3cm in depth. At this time the sites were more healthy appearing, and were packed with 1/2 inch Iodoform gauze packing. A dressing of 4x4 gauze, kerlix, abd pads, and macario bandages applied. The left ankle tourniquet was deflated (total tourniquet time was 16 minutes). There was immediate return of warmth and perfusion to the left foot, with cft< 2 seconds to all toes. Hemostasis achieved. Due to the significant instability to the ankle a well padded below knee posterior splint was applied with heel offloaded. The patient tolerated the procedure well and the anesthesia well with no compilation. She was transported from the operating room to the recovery room with vital signs stable and in good condition. Post operative orders were placed. The patient will be followed as inpatient. Grafts/Implants Used: None - Complications None
[2019-07-04] MEDS: 0.9% Normal Saline 1,000 ML 125 ML IV ×2 (08:35→17:15)
--- NOTE | 2019-07-04 08:38 | RAD_ITS ---
STUDY: X-RAY - LEFT ANKLE REASON FOR EXAM: Female, 59 years old. post op debridement TECHNIQUE: 3 view(s) of the ankle. COMPARISON: None. FINDINGS: Degenerative changes and demineralization of the distal tibia and fibula are present. There is complete destruction of the tibiotalar joint was noted postoperative changes compared to previous exam with reduced osseous density from calcaneus. The remainder of the calcaneus, midfoot and visualized tarsal bones demonstrate diffuse demineralization and sclerotic changes. There is debridement of the talus now with faint areas of likely bone grafting. Plantar soft tissue swelling is present. RAD/Ankle min 3 Views IMPRESSION: Postoperative changes of the midfoot secondary to debridement with reduced amorphous osseous density showing likely bone grafting and debridement of the mid calcaneus with diffuse degenerative changes as above. Electronically Signed: Javier Mcmullen DO at 9:24 EDT , Service support ,
[2019-07-04] MEDS: Atenolol 50 MG Tablet PO (09:41)
[2019-07-04] MEDS: dilTIAZem CD 180 MG Capsule PO (09:41)
[2019-07-04] MEDS: Allopurinol 300 MG Tablet PO (09:41)
[2019-07-04] MEDS: Acetaminophen 500 MG Tablet PO ×3 (11:32→23:00)
[2019-07-04 11:55] LABS: Bedside Glucose 124 mg/dL (70-110)
--- NOTE | 2019-07-04 12:31 | PN_ITS ---
<Cuco Webber - Last Filed: 07/04/19 12:31> Patient Problems: Active and Suspected Problems (Last Reviewed 07/03/19 @ 01:[address] Darwin Lema MD) Osteomyelitis (Acute) Reason for Visit: left foot nonhealing wound Subjective: Pt seen and examined post I&D with Dr. Welodn this AM. No pain at all at the time of exam. No fever/chills. No SOB/cough. No Nausea/vomiting. Pt doing well post op and seems optimistic. Pt declines nicotine patch at this time. Vitals/I&O's: Vital Signs Temp Pulse Resp BP Pulse Ox 97.8 F 77 16 124/57 H 97 07/04/19 09:17 07/04/19 09:17 07/04/19 09:17 07/04/19 09:17 07/04/19 09:17 Oxygen Delivery Method Room Air Weight: 213 lb 4.8 oz Body Mass Index (BMI) 34.4 Finger Stick Blood Glucose 163 Intake and Output for Last 24 Hours 07/02/19 07/03/19 07/04/19 23:59 23:59 23:59 Intake Total 200 / 200 4631.25 / 4981.25 1400 / 1400 Output Total 800 / 1300 900 / 900 Balance 200 / 200 3831.25 / 3681.25 500 / 500 General: Alert, Oriented x3, Cooperative HEENT: Atraumatic, PERRLA, EOMI, Normocephalic Neck: Supple, No JVD, Negative Carotid Bruits Lungs: Clear to auscultation, Normal air movement Cardiovascular: Regular rate, No murmurs Abdomen: Bowel Sounds Present, Soft, Non Tender Extremities: No edema, Capillary Refill Less than 3 Seconds, - - LLE dressed appropriately. Skin: No rashes, No breakdown Musculoskeletal: No Tenderness to Palpation of Joints or Extremities Neurological: Cranial nerves II-XII grossly intact Psych/Mental Status: Normal Affect, Appropriate, Alert and oriented to time, p lace, person, mood and affect Microbiology Past 72 Hours 07/04/19 08:25 Bone - Other Gram Stain - Final 07/02/19 22:01 Wound - Ankle Gram Stain - Final 07/02/19 22:01 Wound - Ankle Wound Culture - Final Streptococcus agalactiae (B) 07/02/19 22:01 Wound - Ankle Anaerobic Culture - Preliminary Checking for anaerobes, further studies to follow. Laboratory Results 07/03/19 11:46: POC Glucose 152 H 07/03/19 14:00: Sodium 139, Potassium 5.6 H, Chloride 113 H, Carbon Dioxide 17.0 L, Anion Gap 9, BUN 62 H, Creatinine 2.68 H, Estim Creat Clear Calc 20.64, Est GFR (MDRD) Af Amer 23 L, Est GFR (MDRD) Non-Af 19 L, BUN/Creatinine Ratio 23.1 H , Glucose 115 H, Calcium 8.4 L 07/03/19 14:00: Hemoglobin A1c 6.5 H 07/03/19 16:59: POC Glucose 89 07/03/19 21:17: POC Glucose 119 H 07/04/19 05:30: Random Vancomycin 11.5 07/04/19 05:30: WBC 15.8 H, RBC 3.17 L, Hgb 8.4 L, Hct 27.2 L, MCV 85.8, MCH 26.5 L, MCHC 30.9 L, RDW Std Deviation 52.9 H, RDW Coeff of Racheal 17.2 H, Plt Count 447, MPV 8.8, Immature Gran % (Auto) 4.000 H, Neut % (Auto) 74.9 H, Lymph % (Auto) 10.8 L, [place] % (Auto) 6.7, Eos % (Auto) 3.0, Baso % (Auto) 0.6, Absolute Neuts (auto) 11.9 H, Absolute Lymphs (auto) 1.71, Nucleated RBC % 0 07/04/19 05:30: Sodium 140, Potassium 5.0, Chloride 115 H, Carbon Dioxide 18.0 L , Anion Gap 7, BUN 57 H, Creatinine 2.43 H, Estim Creat Clear Calc 22.76, Est GFR (MDRD) Af Amer 26 L, Est GFR (MDRD) Non-Af 22 L, BUN/Creatinine Ratio 23.5 H , Glucose 96, Calcium 9.2 07/04/19 05:30: PT 15.5 H, INR 1.3, APTT 33.4 07/04/19 05:30: POC Glucose 93 07/04/19 06:21: Blood Type O NEGATIVE, Antibody Screen NEGATIVE 07/04/19 11:29: POC Glucose 124 H Current Medications Acetaminophen (Tylenol) 500 mg PO Q6 [facility] Last Admin: 07/04/19 11:32 Dose: 500 mg Documented by: Allopurinol (Zyloprim) 300 mg PO DAILYCM [facility] Last Admin: 07/04/19 09:41 Dose: 300 mg Documented by: Atenolol (Tenormin (Beta Jona)) 50 mg PO DAILY [facility] Last Admin: 07/04/19 09:41 Dose: 50 mg Documented by: Cyclobenzaprine HCl (Flexeril) 10 mg PO TID PRN PRN PRN Reason: muscle spasm Last Admin: 07/03/19 21:20 Dose: 10 mg Documented by: Dextrose (D50w Syringe) 0 gm IV X1 PRN; Protocol PRN Reason: Hypoglycemia Diltiazem HCl (Cardizem Cd) 180 mg PO DAILY [facility] Last Admin: 07/04/19 09:41 Dose: 180 mg Documented by: Gabapentin (Neurontin) 100 mg PO TID [facility] Last Admin: 07/04/19 06:05 Dose: Not Given Documented by: Glucagon () 1 mg IM .X1 PRN PRN Reason: Hypoglycemia Heparin Sodium (Porcine) (Heparin Na) 5,000 unit SC Q8 [facility] Last Admin: 07/03/19 06:01 Dose: 5,000 unit Documented by: Sodium Chloride () 1,000 mls @ 125 mls/hr IV .Q8H [facility] Last Admin: 07/04/19 08:35 Dose: 125 mls/hr Documented by: Sodium Chloride () 250 mls @ 15 mls/hr IV .[id number] PRN PRN Reason: Additional IVPB Infusion Ceftriaxone Sodium 2 gm/ (Sodium Chloride) 50 mls @ 100 mls/hr IV Q24 [facility] Last Admin: 07/04/19 11:30 Dose: 100 mls/hr Documented by: Metronidazole (Flagyl) 500 mg in 100 mls @ 100 mls/hr IV Q8 [facility] Insulin Human Lispro (Humalog Kwikpen (Bkc)) 0 unit SC ACHS [facility]; Protocol Last Admin: 07/04/19 11:30 Dose: Not Given Documented by: Melatonin (Melatonin) 3 mg PO QHS PRN PRN PRN Reason: INSOMNIA Last Admin: 07/03/19 00:31 Dose: 3 mg Documented by: Nutritional Formula (Pancho - Dinosaur Flavor) 1 packet PO BIDCM [facility] Last Admin: 07/04/19 09:40 Dose: 1 packet Documented by: Ondansetron HCl (Zofran) 4 mg IV Q8H PRN PRN PRN Reason: NAUSEA/VOMITING Sodium Chloride () 10 - 40 ml IV UD PRN PRN Reason: SALINE FLUSH STROKE Vital Signs/Narrative: Vital Signs Temp Pulse Resp BP Pulse Ox 07/04/19 09:17 97.8 F 77 16 124/57 H 97 07/04/19 08:40 97.7 F L 79 16 104/84 H 95 07/04/19 08:35 79 16 106/89 H 96 Medical Necessity - Tobacco Use Smoking Status: Current every day smoker Assessment/Plan All Active Problems (Last Reviewed 07/03/19 @ 01:[address] Darwin Lema MD) Osteomyelitis (Acute) Acute osteomyelitis involving ankle and foot (Acute) Diabetic foot ulcer associated with type 2 diabetes mellitus (Acute) Tobacco abuse counseling (Acute) 1. Osteomyelitis Left ankle - multiple prior surgeries, hx Pseudomonas, MRSA. Podiatry following - I&D POD#[address] Weldon. Surgical cultures taken. Initial cultures showing Strep agelactiae so abx narrowed to ceftriaxone and flagyl. anaerobic cx still pending, as is fungal cx. Elevated ESR/CRP. Pt likely needs amputations. c/s to Dr. Ray. Complicated by DMt2 and Ongoing Nicotine abuse. Consult ID on Friday. WBC now improved to 15.8.afebrile. initial injury was trimalleolar fx about 2 years ago. -Consult to Dr. Ray to consider amputation. 2. Chronic normocytic anemia - 8.0-->7.8-->8.4 without transfusion. Baseline around 9. Trend. No obvious bleeding. Will trend. 3. Hyperkalemia - resolved. 4. JOEY on CKD IV - continue IV fluids, gradually improving. nephrotoxic agents held. K corrected. 5. DMt2 - diet controlled only at home. a1c 6.5 c/w T2DM, pt would benefit from more aggressive glucose control given her repeated osteomyelitis and CKD. 6. hx gout - allopurinol continued. 7. HTN - macario held, atenolol. 8. Nicotine abuse - pt declines patch. She needs complete cessation given #1. DVT ppx: heparin DC planning: PTOT. may need amputation. balance issues at home with near falls leading to this admission. This patient was seen by Cuco Webber PA-C under the supervision of Dr. Hillman. <Everett Hillman F - Last Filed: 07/04/19 13:34> Vitals/I&O's: Vital Signs Temp Pulse Resp BP Pulse Ox 97.8 F 77 16 124/57 H 97 07/04/19 09:17 07/04/19 09:17 07/04/19 09:17 07/04/19 09:17 07/04/19 09:17 Oxygen Delivery Method Room Air Weight: 213 lb 4.8 oz Body Mass Index (BMI) 34.4 Finger Stick Blood Glucose 163 Intake and Output for Last 24 Hours 07/02/19 07/03/19 07/04/19 23:59 23:59 23:59 Intake Total 200 / 200 4631.25 / 4981.25 1400 / 1400 Output Total 800 / 1300 900 / 900 Balance 200 / 200 3831.25 / 3681.25 500 / 500 Microbiology Past 72 Hours 07/04/19 08:25 Bone - Other Gram Stain - Final 07/02/19 22:01 Wound - Ankle Gram Stain - Final 07/02/19 22:01 Wound - Ankle Wound Culture - Final Streptococcus agalactiae (B) 07/02/19 22:01 Wound - Ankle Anaerobic Culture - Preliminary Checking for anaerobes, further studies to follow. Laboratory Results 07/03/19 14:00: Sodium 139, Potassium 5.6 H, Chloride 113 H, Carbon Dioxide 17.0 L, Anion Gap 9, BUN 62 H, Creatinine 2.68 H, Estim Creat Clear Calc 20.64, Est GFR (MDRD) Af Amer 23 L, Est GFR (MDRD) Non-Af 19 L, BUN/Creatinine Ratio 23.1 H , Glucose 115 H, Calcium 8.4 L 07/03/19 14:00: Hemoglobin A1c 6.5 H 07/03/19 16:59: POC Glucose 89 07/03/19 21:17: POC Glucose 119 H 07/04/19 05:30: Random Vancomycin 11.5 07/04/19 05:30: WBC 15.8 H, RBC 3.17 L, Hgb 8.4 L, Hct 27.2 L, MCV 85.8, MCH 26.5 L, MCHC 30.9 L, RDW Std Deviation 52.9 H, RDW Coeff of Racheal 17.2 H, Plt Count 447, MPV 8.8, Immature Gran % (Auto) 4.000 H, Neut % (Auto) 74.9 H, Lymph % (Auto) 10.8 L, [place] % (Auto) 6.7, Eos % (Auto) 3.0, Baso % (Auto) 0.6, Absolute Neuts (auto) 11.9 H, Absolute Lymphs (auto) 1.71, Nucleated RBC % 0 07/04/19 05:30: Sodium 140, Potassium 5.0, Chloride 115 H, Carbon Dioxide 18.0 L , Anion Gap 7, BUN 57 H, Creatinine 2.43 H, Estim Creat Clear Calc 22.76, Est GFR (MDRD) Af Amer 26 L, Est GFR (MDRD) Non-Af 22 L, BUN/Creatinine Ratio 23.5 H , Glucose 96, Calcium 9.2 07/04/19 05:30: PT 15.5 H, INR 1.3, APTT 33.4 07/04/19 05:30: POC Glucose 93 07/04/19 06:21: Blood Type O NEGATIVE, Antibody Screen NEGATIVE 07/04/19 11:29: POC Glucose 124 H Current Medications Acetaminophen (Tylenol) 500 mg PO Q6 [facility] Last Admin: 07/04/19 11:32 Dose: 500 mg Documented by: [facility]) [facility] Last Admin: 07/04/19 09:41 Dose: 300 mg Documented by: Atenolol (Tenormin (Beta Jona)) 50 mg PO DAILY [facility] Last Admin: 07/04/19 09:41 Dose: 50 mg Documented by: Cyclobenzaprine HCl (Flexeril) 10 mg PO TID PRN PRN PRN Reason: muscle spasm Last Admin: 07/03/19 21:20 Dose: 10 mg Documented by: Dextrose (D50w Syringe) 0 gm IV X1 PRN; Protocol PRN Reason: Hypoglycemia Diltiazem HCl (Cardizem Cd) 180 mg PO DAILY [facility] Last Admin: 07/04/19 09:41 Dose: 180 mg Documented by: Gabapentin (Neurontin) 100 mg PO TID [facility] Last Admin: 07/04/19 06:05 Dose: Not Given Documented by: Glucagon () 1 mg IM .X1 PRN PRN Reason: Hypoglycemia Heparin Sodium (Porcine) (Heparin Na) 5,000 unit SC Q8 [facility] Last Admin: 07/03/19 06:01 Dose: 5,000 unit Documented by: Sodium Chloride () 1,000 mls @ 125 mls/hr IV .Q8H [facility] Last Admin: 07/04/19 08:35 Dose: 125 mls/hr Documented by: Sodium Chloride () 250 mls @ 15 mls/hr IV .[id number] PRN PRN Reason: Additional IVPB Infusion Ceftriaxone Sodium 2 gm/ (Sodium Chloride) 50 mls @ 100 mls/hr IV Q24 [facility] Last Admin: 07/04/19 11:30 Dose: 100 mls/hr Documented by: Metronidazole (Flagyl) 500 mg in 100 mls @ 100 mls/hr IV Q8 [facility] Insulin Human Lispro (Humalog Kwikpen (Bkc)) 0 unit SC ACHS [facility]; Protocol Last Admin: 07/04/19 11:30 Dose: Not Given Documented by: Melatonin (Melatonin) 3 mg PO QHS PRN PRN PRN Reason: INSOMNIA Last Admin: 07/03/19 00:31 Dose: 3 mg Documented by: Nutritional Formula (Pancho - Dinosaur Flavor) 1 packet PO BIDCM [facility] Last Admin: 07/04/19 09:40 Dose: 1 packet Documented by: Ondansetron HCl (Zofran) 4 mg IV Q8H PRN PRN PRN Reason: NAUSEA/VOMITING Sodium Chloride () 10 - 40 ml IV UD PRN PRN Reason: SALINE FLUSH Addendum: Dr. Hillman I personally examined the patient and reviewed the chart. I agree with the abo ve. 59-year-old female who is a former smoker, as well as diabetes with peripheral neuropathy had a left ankle fracture that is been being managed for the last year and a half. She had an ex fix which was removed in February and is supposed be wearing a brace and be nonweightbearing. She says that it has looked like it and getting better until she tried to scrape off some thickened skin and she caused a wound in her foot about a week ago since then it is gotten worse with purulent drainage. X-ray demonstrates osteo and there also can be chronic degenerative changes based on the multiple surgical intervention she has had. We will transition her to Rocephin for the streptococcal act TIA as well as possible anaerobes. She had a washout today of her wound by podiatry. We will have Dr. Hernandez evaluate her post hospital amputation, and will have further discussions on this topic with her during her admission. Inpatient E&M: 59221 Subs Hosp L2
[2019-07-04] MEDS: Gabapentin 100 MG Capsule PO ×2 (14:36→22:58)
[2019-07-04] MEDS: metroNIDAZOLE 500 MG/100 ML BAG 100 MG IV ×2 (14:36→22:52)
[2019-07-04 16:31] LABS: Bedside Glucose 120 mg/dL (70-110)
[2019-07-04 23:06] LABS: Bedside Glucose 106 mg/dL (70-110)
[2019-07-05] MEDS: 0.9% Normal Saline 1,000 ML 125 ML IV ×3 (02:22→22:30)
[2019-07-05 02:23] VITALS: BP 150/75; PULSE 81; RESP 17; TEMP 36.7; O2SAT 98
[2019-07-05 05:29] LABS: Absolute Lymphocyte Count 1.61 X10^3/uL (0.83-4.51); Absolute Neutrophil Count 14.5 X10^3/uL (2.0-7.7); Basophil# 0.07 X10^3/uL; Basophil% 0.4 % (0-1); Eosinophil# 0.49 X10^3/uL; Eosinophils% 2.7 % (0-5); Hematocrit 26.6 % (37-47); Lymphocyte # 1.61 X10^3/ul (4.0); Lymphocyte % 8.7 % (19-41); Mean Corp Hgb Conc 30.1 g/dL (32-36); Mean Corpuscular Hgb 25.6 pg (27.0-32.0); Monocyte# 1.26 X10^3/uL; Monocyte% 6.8 % (0-10); NRBC Flagged by Analyzer 0.1 % (0-5); Neutrophil # 14.49 X10^3/uL (2.7-7.7); Neutrophil % 78.3 % (47-70); Platelet Count 474 K/mm3 (150-450); RBC Distribution Width CV 17.2 % (11.6-14.6); RBC Distribution Width SD 53.1 fl (35.1-43.9); Red Blood Count 3.13 M/mm3 (4.2-5.4); White Blood Count 18.5 K/mm3 (4.4-11.0)
[2019-07-05 05:49] LABS: Anion Gap 8 (5-15); BUN 51 mg/dL (7-18); Calcium,Total 8.8 mg/dL (8.5-10.1); Chloride 113 mmol/L (98-107); Creatinine, Serum 1.89 mg/dL (0.55-1.02); EST Glomerular Filtration Rate 29 mL/min (>60); Est Glom Filt Rate - Afr Amer 35 mL/min (>60); Estimated Creatinine Clearance 29.26 ml/min; Glucose 102 mg/dL (74-106); Potassium 4.6 mmol/L (3.5-5.1); Sodium Level 137 mmol/L (136-145)
[2019-07-05] MEDS: metroNIDAZOLE 500 MG/100 ML BAG 100 MG IV ×3 (06:40→22:31)
[2019-07-05] MEDS: Gabapentin 100 MG Capsule PO ×3 (06:41→22:32)
[2019-07-05] MEDS: Acetaminophen 500 MG Tablet PO ×4 (06:46→23:48)
[2019-07-05 07:06] LABS: Bedside Glucose 103 mg/dL (70-110)
[2019-07-05 08:11] VITALS: BP 149/68; PULSE 77; RESP 18; TEMP 37.4; O2SAT 97
[2019-07-05] MEDS: Allopurinol 300 MG Tablet PO (08:15)
[2019-07-05] MEDS: dilTIAZem CD 180 MG Capsule PO (09:43)
[2019-07-05] MEDS: Atenolol 50 MG Tablet PO (09:43)
--- NOTE | 2019-07-05 11:03 | CASEMGMT ---
PUJA received a call from Karlie Reid at [facility]. She said patient currently does not have any services other than her medical alert button. She asked PUJA to fax d/c instructions when patient is discharged. Amanda PATTERSON
[2019-07-05 12:35] LABS: Bedside Glucose 91 mg/dL (70-110)
--- NOTE | 2019-07-05 12:55 | PCM.PROGNOTE ---
Patient Problems: Active and Suspected Problems (Last Reviewed 07/03/19 @ 01:[address] Darwin Lema MD) Osteomyelitis (Acute) Subjective: This 59-year-old female with multiple comorbidities who is seen postoperative day #1 right ankle incision and drainage including arthrotomy. She denies fever, chill, nausea, vomiting, odor. Her discomfort to her right ankle has reduced. She is kept her splint and dressing clean, dry, and intact. She is adamant today about how she is not going to proceed forward with amputation at this time. She relates she wants to keep fighting and consider antibiotics again. She relates she knows she she should probably get the amputation at some point. She also relates she understands this is life-threatening. She relates she had a customized brace available at an outside facility that has recently been approved by her insurance. She would also like to pursue that. She understands her foot is floppy and is non-usable at this time. - Physical Exam Vitals/I&O's: Vital Signs Temp Pulse Resp BP Pulse Ox 99.3 F H 77 18 149/68 H 97 07/05/19 08:11 07/05/19 08:11 07/05/19 08:11 07/05/19 08:11 07/05/19 08:11 Oxygen Delivery Method Room Air Weight: 96.751 kg Body Mass Index (BMI) 34.4 Finger Stick Blood Glucose 163 Intake and Output for Last 24 Hours 07/03/19 07/04/19 07/05/19 23:59 23:59 23:59 Intake Total 4631.25 / 4981.25 3310.41 / 3310.41 2777.92 / 2777.92 Output Total 800 / 1300 2100 / 2100 3250 / 3250 Balance 3831.25 / 3681.25 1210.41 / 1210.41 -472.08 / -472.08 General: Alert, Oriented x3, Cooperative Extremities: No cyanosis, Capillary Refill Less than 3 Seconds, No Calf Tenderness, Diminished Peripheral Pulses, Edema - mild right lower extremity Skin: Ulcer/ Wound - Upon packing removal, there is no purulence, odor, or necrosis. There is a very large void where the distal aspect of the tibia is missing and the skin is discolored and firm to touch. There is no erythema or streaking noted. There is only serosanguineous drainage noted on the packing, - - Her skin is hairless and atrophic. Musculoskeletal: No Tenderness to Palpation of Joints or Extremities, Muscle Wasting, - - Unstable ankle noted. There is a lot of laxity and the foot to be dislocated upon the leg. Active range of motion is limited of ankle and digits on the right lower extremity. Negative Scott and Escalona sign bilateral Neurological: - - Lack of epicritic sensation light touch is consistent with neuropathy status Psych/Mental Status: Normal Affect, Appropriate Microbiology Past 72 Hours 07/04/19 08:25 Bone - Other Gram Stain - Final 07/04/19 08:25 Bone - Other Wound Culture - Preliminary Gram positive organism 07/02/19 22:01 Wound - Ankle Gram Stain - Final 07/02/19 22:01 Wound - Ankle Wound Culture - Final Streptococcus agalactiae (B) 07/02/19 22:01 Wound - Ankle Anaerobic Culture - Final No anaerobic bacteria isolated. Laboratory Results 07/04/19 16:24: POC Glucose 120 H 07/04/19 22:57: POC Glucose 106 07/05/19 05:00: WBC 18.5 H, RBC 3.13 L, Hgb 8.0 L, Hct 26.6 L, MCV 85.0, MCH 25.6 L, MCHC 30.1 L, RDW Std Deviation 53.1 H, RDW Coeff of Racheal 17.2 H, Plt Count 474 H, MPV 9.0, Immature Gran % (Auto) 3.100 H, Neut % (Auto) 78.3 H, Lymph % (Auto) 8.7 L, Harney % (Auto) 6.8, Eos % (Auto) 2.7, Baso % (Auto) 0.4, Absolute Neuts (auto) 14.5 H, Absolute Lymphs (auto) 1.61, Nucleated RBC % 0.1 07/05/19 05:00: Sodium 137, Potassium 4.6, Chloride 113 H, Carbon Dioxide 16.0 L, Anion Gap 8, BUN 51 H, Creatinine 1.89 H, Estim Creat Clear Calc 29.26, Est GFR (MDRD) Af Amer 35 L, Est GFR (MDRD) Non-Af 29 L, BUN/Creatinine Ratio 27.0 H, Glucose 102, Calcium 8.8 07/05/19 06:39: POC Glucose 103 07/05/19 11:39: POC Glucose 91 Current Medications Acetaminophen (Tylenol) 500 mg PO Q6 [facility] Last Admin: 07/05/19 11:42 Dose: 500 mg Documented by: Allopurinol (Zyloprim) 300 mg PO DAILYCM [facility] Last Admin: 07/05/19 08:15 Dose: 300 mg Documented by: Atenolol (Tenormin (Beta Jona)) 50 mg PO DAILY [facility] Last Admin: 07/05/19 09:43 Dose: 50 mg Documented by: Cyclobenzaprine HCl (Flexeril) 10 mg PO TID PRN PRN PRN Reason: muscle spasm Last Admin: 07/03/19 21:20 Dose: 10 mg Documented by: Dextrose (D50w Syringe) 0 gm IV X1 PRN; Protocol PRN Reason: Hypoglycemia Diltiazem HCl (Cardizem Cd) 180 mg PO DAILY [facility] Last Admin: 07/05/19 09:43 Dose: 180 mg Documented by: Gabapentin (Neurontin) 100 mg PO TID [facility] Last Admin: 07/05/19 06:41 Dose: 100 mg Documented by: Glucagon () 1 mg IM .X1 PRN PRN Reason: Hypoglycemia Heparin Sodium (Porcine) (Heparin Na) 5,000 unit SC Q8 [facility] Last Admin: 07/03/19 06:01 Dose: 5,000 unit Documented by: Sodium Chloride () 1,000 mls @ 125 mls/hr IV .Q8H [facility] Last Infusion: 07/05/19 11:43 Dose: Infused Documented by: Sodium Chloride () 250 mls @ 15 mls/hr IV .[id number] PRN PRN Reason: Additional IVPB Infusion Ceftriaxone Sodium 2 gm/ (Sodium Chloride) 50 mls @ 100 mls/hr IV Q24 [facility] Last Infusion: 07/05/19 10:16 Dose: Infused Documented by: Metronidazole (Flagyl) 500 mg in 100 mls @ 100 mls/hr IV Q8 [facility] Last Infusion: 07/05/19 10:41 Dose: Infused Documented by: Insulin Human Lispro (Humalog Kwikpen (Bkc)) 0 unit SC ACHS [facility]; Protocol Last Admin: 07/05/19 11:40 Dose: Not Given Documented by: Melatonin (Melatonin) 3 mg PO QHS PRN PRN PRN Reason: INSOMNIA Last Admin: 07/03/19 00:31 Dose: 3 mg Documented by: Nutritional Formula (Pancho - Darke Flavor) 1 packet PO BIDCM [facility] Last Admin: 07/05/19 08:15 Dose: 1 packet Documented by: Ondansetron HCl (Zofran) 4 mg IV Q8H PRN PRN PRN Reason: NAUSEA/VOMITING Sodium Chloride () 10 - 40 ml IV UD PRN PRN Reason: SALINE FLUSH Medical Necessity - Tobacco Use Smoking Status: Current every day smoker Assessment/Plan All Active Problems (Last Reviewed 07/03/19 @ 01:[address] Darwin Lema MD) Osteomyelitis (Acute) Acute osteomyelitis involving ankle and foot (Acute) Diabetic foot ulcer associated with type 2 diabetes mellitus (Acute) Tobacco abuse counseling (Acute) Postoperative day #1 right ankle incision and drainage with arthrotomy She has a prior history of ankle fracture with serial infections and Charcot with multiple reconstructive surgeries with continued failure Diabetes with neuropathy Chronic kidney disease Walking difficulty Other comorbidities I reviewed and discussed her case. She is afebrile today and her white blood cell count is approximately 18.5. Clinically, there is no erythema, odor, or purulence. She has suspected osteomyelitis of the left ankle with history of multiple surgeries, history of Pseudomonas and MRSA infections. Initial cultures grew strep agalactiae. She has elevation in ESR and CRP as well. She is currently on ceftriaxone and Flagyl antibiotics. Infectious disease on consultation is greatly appreciated. I recommend further stabilization and home therapy plan prior to discharge. We discussed the salvageability of her limb and functional opportunity. An amputation treatment option was discussed at length today and is recommended. She has failed multiple salvage attempts previously and her unstable limb with recurrent infection is life-threatening. She understands this and refuses to have an amputation at this time. She was amendable to proceed with this previously over the weekend and surgery was consulted. A new dressing was applied today with Kerlix packing, gauze, abdominal pads, Lonnie wrap, and posterior mold splint applied in a padded manner. The right lower extremity was splinted in a rectus position and she was advised to maintain a nonweightbearing status. The patient relates she has a brace available in [place] that was recently approved by her insurance. Per her description, it sounds like it is a custom ankle foot orthotic with patellar tendon load bearing component. She would like to proceed with getting this from [facility] for [facility]. She was advised to use assistive device to maintain the recommended nonweightbearing status. Medical management and DVT prophylaxis per primary team is greatly appreciated. I answered her questions. Please not hesitate to call if you have any questions. Nellie Quezada DPM, [facility] [phone]
--- NOTE | 2019-07-05 12:59 | NURSING ---
Addendum entered by Mary Collins 07/05/19 13:02: wound photo:left foot/ankle Original Note: wound photo: right foot/ankle
[2019-07-05 13:16] VITALS: BP 129/50; PULSE 75; RESP 18; TEMP 37.3; O2SAT 98
[2019-07-05] MEDS: Heparin Injection (Vial) 5,000 UNIT/ML VIAL 5000 UNIT SC ×2 (13:25→22:32)
--- NOTE | 2019-07-05 13:57 | PN_ITS ---
Patient Problems: Active and Suspected Problems (Last Reviewed 07/03/19 @ 01:[address] Darwin Lema MD) Osteomyelitis (Acute) Subjective: Pt adament that she will not consider amputation. She has no fever/chills. No pain in the affected extremity at all. No Nausea/vomiting or diarrhea. Doing well. Vitals/I&O's: Vital Signs Temp Pulse Resp BP Pulse Ox 99.1 F 75 18 129/50 H 98 07/05/19 13:16 07/05/19 13:16 07/05/19 13:16 07/05/19 13:16 07/05/19 13:16 Oxygen Delivery Method Room Air Weight: 213 lb 4.8 oz Body Mass Index (BMI) 34.4 Finger Stick Blood Glucose 163 Intake and Output for Last 24 Hours 07/03/19 07/04/19 07/05/19 23:59 23:59 23:59 Intake Total 4631.25 / 4981.25 3310.41 / 3310.41 2782.09 / 2782.09 Output Total 800 / 1300 2100 / 2100 3250 / 3250 Balance 3831.25 / 3681.25 1210.41 / 1210.41 -467.91 / -467.91 General: Alert, Oriented x3, Cooperative HEENT: Atraumatic, PERRLA, EOMI, Normocephalic Neck: Supple, No JVD, Negative Carotid Bruits Lungs: Clear to auscultation, Normal air movement Cardiovascular: Regular rate, No murmurs Abdomen: Bowel Sounds Present, Soft, Non Tender Extremities: No edema, Capillary Refill Less than 3 Seconds Skin: No rashes, No breakdown Musculoskeletal: No Tenderness to Palpation of Joints or Extremities Neurological: Cranial nerves II-XII grossly intact Psych/Mental Status: Normal Affect, Appropriate, Alert and oriented to time, place, person, mood and affect Microbiology Past 72 Hours 07/04/19 08:25 Bone - Other Gram Stain - Final 07/04/19 08:25 Bone - Other Wound Culture - Preliminary Gram positive organism 07/02/19 22:01 Wound - Ankle Gram Stain - Final 07/02/19 22:01 Wound - Ankle Wound Culture - Final Streptococcus agalactiae (B) 07/02/19 22:01 Wound - Ankle Anaerobic Culture - Final No anaerobic bacteria isolated. Laboratory Results 07/04/19 16:24: POC Glucose 120 H 07/04/19 22:57: POC Glucose 106 07/05/19 05:00: WBC 18.5 H, RBC 3.13 L, Hgb 8.0 L, Hct 26.6 L, MCV 85.0, MCH 25.6 L, MCHC 30.1 L, RDW Std Deviation 53.1 H, RDW Coeff of Racheal 17.2 H, Plt Count 474 H, MPV 9.0, Immature Gran % (Auto) 3.100 H, Neut % (Auto) 78.3 H, Lymph % (Auto) 8.7 L, [place] % (Auto) 6.8, Eos % (Auto) 2.7, Baso % (Auto) 0.4, Absolute Neuts (auto) 14.5 H, Absolute Lymphs (auto) 1.61, Nucleated RBC % 0.1 07/05/19 05:00: Sodium 137, Potassium 4.6, Chloride 113 H, Carbon Dioxide 16.0 L , Anion Gap 8, BUN 51 H, Creatinine 1.89 H, Estim Creat Clear Calc 29.26, Est GFR (MDRD) Af Amer 35 L, Est GFR (MDRD) Non-Af 29 L, BUN/Creatinine Ratio 27.0 H , Glucose 102, Calcium 8.8 07/05/19 06:39: POC Glucose 103 07/05/19 11:39: POC Glucose 91 Current Medications Acetaminophen (Tylenol) 500 mg PO Q6 [facility] Last Admin: 07/05/19 11:42 Dose: 500 mg Documented by: [facility] Admin: 07/05/19 08:15 Dose: 300 mg Documented by: Atenolol (Tenormin (Beta Jona)) 50 mg PO DAILY [facility] Last Admin: 07/05/19 09:43 Dose: 50 mg Documented by: Cyclobenzaprine HCl (Flexeril) 10 mg PO TID PRN PRN PRN Reason: muscle spasm Last Admin: 07/03/19 21:20 Dose: 10 mg Documented by: Dextrose (D50w Syringe) 0 gm IV X1 PRN; Protocol PRN Reason: Hypoglycemia Diltiazem HCl (Cardizem Cd) 180 mg PO DAILY [facility] Last Admin: 07/05/19 09:43 Dose: 180 mg Documented by: Gabapentin (Neurontin) 100 mg PO TID [facility] Last Admin: 07/05/19 13:25 Dose: 100 mg Documented by: Glucagon () 1 mg IM .X1 PRN PRN Reason: Hypoglycemia Heparin Sodium (Porcine) (Heparin Na) 5,000 unit SC Q8 [facility] Last Admin: 07/05/19 13:25 Dose: 5,000 unit Documented by: Sodium Chloride () 1,000 mls @ 125 mls/hr IV .Q8H [facility] Last Infusion: 07/05/19 13:21 Dose: 0 mls/hr Documented by: Sodium Chloride () 250 mls @ 15 mls/hr IV .[id number] PRN PRN Reason: Additional IVPB Infusion Ceftriaxone Sodium 2 gm/ (Sodium Chloride) 50 mls @ 100 mls/hr IV Q24 [facility] Last Infusion: 07/05/19 10:16 Dose: Infused Documented by: Metronidazole (Flagyl) 500 mg in 100 mls @ 100 mls/hr IV Q8 [facility] Last Admin: 07/05/19 13:20 Dose: 100 mls/hr Documented by: Insulin Human Lispro (Humalog Kwikpen (Bkc)) 0 unit SC ACHS [facility]; Protocol Last Admin: 07/05/19 11:40 Dose: Not Given Documented by: Melatonin (Melatonin) 3 mg PO QHS PRN PRN PRN Reason: INSOMNIA Last Admin: 07/03/19 00:31 Dose: 3 mg Documented by: Nutritional Formula (Pancho - [place] Flavor) 1 packet PO BIDCM [facility] Last Admin: 07/05/19 08:15 Dose: 1 packet Documented by: Ondansetron HCl (Zofran) 4 mg IV Q8H PRN PRN PRN Reason: NAUSEA/VOMITING Sodium Chloride () 10 - 40 ml IV UD PRN PRN Reason: SALINE FLUSH STROKE Vital Signs/Narrative: Vital Signs Temp Pulse Resp BP Pulse Ox 07/05/19 13:16 99.1 F 75 18 129/50 H 98 Medical Necessity - Tobacco Use Smoking Status: Current every day smoker Assessment/Plan All Active Problems (Last Reviewed 07/03/19 @ 01:[address] Darwin Lema MD) Osteomyelitis (Acute) Acute osteomyelitis involving ankle and foot (Acute) Diabetic foot ulcer associated with type 2 diabetes mellitus (Acute) Tobacco abuse counseling (Acute) 1. Osteomyelitis Left ankle - multiple prior surgeries, hx Pseudomonas, MRSA. Podiatry following - I&D POD#[address] Weldon. Surgical cultures taken. Initial cultures showing Strep agelactiae so abx narrowed to ceftriaxone and flagyl. Elevated ESR/CRP.Complicated by DMt2 and Ongoing Nicotine abuse. WBC now increased to 18.5. Afebrile -initial injury was trimalleolar fx about 2 years ago. -Consult to Infectious Disease. 2. Chronic normocytic anemia - 8.0. Baseline around 9. Trend. No obvious bleeding. 3. Hyperkalemia - resolved. 4. JOEY on CKD IV - continue IV fluids, gradually improving. nephrotoxic agents held. K corrected. 5. DMt2 - diet controlled only at home. a1c 6.5 c/w T2DM, pt would benefit from more aggressive glucose control given her repeated osteomyelitis and CKD. 6. hx gout - allopurinol continued. 7. HTN - macario held, atenolol. 8. Nicotine abuse - pt declines patch. She needs complete cessation given #1. DVT ppx: heparin DC planning: PTOT. may need amputation. balance issues at home with near falls leading to this admission. This patient was seen by Cuco Webber PA-C under the supervision of Dr. Brunson
--- NOTE | 2019-07-05 14:40 | CON.PCM_ITS ---
Problem List (1) Osteomyelitis Status: Acute Reason for Consult: osteo Consulted by: Dr. Brunson History of Present Illness: The patient is a 59 year old F with LLE osteo since fracture 10/2017. Course complicated by MRSA and PsA infection. Has required multiple surgeries including external fixation. Had been doing ok until about a week ago, developed a wound on her leg while scraping a callus. Had progressive pain/redness/swelling/purulent drainage. No fever. Came to ED, admitted on iv abx, taken to OR by Dr. Weldon. Now on ceftriaxone/flagyl. Feeling ok, does not want to lose her foot. Full ROS performed and neg except as noted above. - Medical History Past Medical History (Chronic Problems): Chronic Problems (Last Reviewed 07/03/19 @ 01:[address] Darwin Lema MD) Sleep apnea (Chronic) Recurrent dislocation of left ankle (Chronic) Alopecia (Chronic) alopecia overlying soft tissue mass right temporal parietal scalp Head mass (Chronic) 8 cm soft tissue mass right temporal parietal scalp with overlying alopecia Open left ankle fracture (Chronic) Anemia (Chronic) Rheumatoid arthritis (Chronic) Gout (Chronic) Tinea unguium (Chronic) Type 2 diabetes mellitus with diabetic polyneuropathy (Chronic) Peripheral neuropathy (Chronic) Arthritis (Chronic) Hypertension (Chronic) High cholesterol (Chronic) Hyperlipidemia (Chronic) Type 2 diabetes mellitus (Chronic) 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) Uncontrolled type 2 diabetes mellitus (Chronic) Tobacco use disorder (Chronic) Pure hypercholesterolemia (Chronic) History of hypertension (Chronic) Type 2 diabetes mellitus with diabetic polyneuropathy (Chronic) History of gout (Chronic) Obesity (Chronic) COPD (chronic obstructive pulmonary disease) (Chronic) Chronic renal insufficiency, stage III (moderate) (Chronic) Type 2 diabetes mellitus with foot ulcer (Chronic) 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) Allergies/Adverse Reactions: Allergies aspirin Allergy (Verified 07/02/19 21:48) Hives latex Allergy (Verified 07/02/19 21:48) Hives Penicillins Allergy (Verified 07/02/19 21:48) Hives simvastatin Allergy (Verified 07/02/19 21:48) Unknown naproxen [From Aleve] Adverse Reaction (Severe, Verified 07/02/19 21:48) Kidney disease Stage 3 Home Medications: Ambulatory Orders Medication Instructions Recorded Acetaminophen [Arthritis Pain 650 mg PO TID 08/10/18 Relief] Atenolol [Tenormin (beta feliberto)] 50 mg PO DAILY 08/10/18 diltiazem HCl 180 mg 180 mg PO DAILY cap 12/15/18 capsule,extended release 24 hr lisinopril 40 mg tablet 40 mg PO BID tab 12/15/18 cyclobenzaprine 10 mg tablet 10 mg PO TID PRN #90 tab 02/02/19 Allopurinol 300 mg PO DAILY 07/03/19 Blood Sugar Diagnostic [Accu-Chek See Rx Instructions .ROUTE 07/03/19 Chloe Plus test strp] .MEDSUPPLY Cholecalciferol (Vitamin D3) 50,000 unit PO MO 07/03/19 [D3-50] Gabapentin [Neurontin] 300 mg PO TID 07/03/19 - Social History SMOKING STATUS:: Former smoker Vital Signs Temp Pulse Resp BP Pulse Ox 99.1 F 75 18 129/50 H 98 07/05/19 13:16 07/05/19 13:16 07/05/19 13:16 07/05/19 13:16 07/05/19 13:16 Oxygen Delivery Method Room Air Weight: 96.751 kg Body Mass Index (BMI) 34.4 Finger Stick Blood Glucose 163 Microbiology Past 72 Hours 07/04/19 08:25 Gram Stain - Final Bone - Other Wound Culture - Preliminary Gram positive organism 07/02/19 22:01 Gram Stain - Final Wound - Ankle Wound Culture - Final Streptococcus agalactiae (B) Anaerobic Culture - Final No anaerobic bacteria isolated. Laboratory Tests Past 24 Hrs 07/05/19 07/05/19 05:00 05:00 WBC 18.5 H RBC 3.13 L Hgb 8.0 L Hct 26.6 L MCV 85.0 MCH 25.6 L MCHC 30.1 L RDW Std Deviation 53.1 H RDW Coeff of Racheal 17.2 H Plt Count 474 H MPV 9.0 Immature Gran % (Auto) 3.100 H Neut % (Auto) 78.3 H Lymph % (Auto) 8.7 L [place] % (Auto) 6.8 Eos % (Auto) 2.7 Baso % (Auto) 0.4 Absolute Neuts (auto) 14.5 H Absolute Lymphs (auto) 1.61 Nucleated RBC % 0.1 Sodium 137 Potassium 4.6 Chloride 113 H Carbon Dioxide 16.0 L Anion Gap 8 BUN 51 H Creatinine 1.89 H Estim Creat Clear Calc 29.26 Est GFR (MDRD) Af Amer 35 L Est GFR (MDRD) Non-Af 29 L BUN/Creatinine Ratio 27.0 H Glucose 102 Calcium 8.8 - Other Studies Radiology: [] reviewed Other Studies: [] Route of nutrition/ use of supplements: [] Nutritional Intake: [] IV Site: [] Gardner Catheter: [] - Physical Exam General: Alert, Oriented x3, Cooperative, No apparent distress HEENT: Atraumatic, PERRLA, EOMI Neck: Supple, No Nodes Lungs: Clear to auscultation, Normal air movement Cardiovascular: Regular rate, Regular Rhythm Abdomen: Soft, Non Tender, Non-Distended Extremities: No edema Skin: Ulcer/ Wound - LLE wrapped IV Site: Peripheral, without redness Musculoskeletal: No Tenderness to Palpation of Joints or Extremities Neurological: Cranial nerves II-XII grossly intact - Assessment/Plan Antibiotics: [] Assessment/Plan: [] Active and Suspected Problems (Last Reviewed 07/03/19 @ 01:[address] Darwin Lema MD) Cellulitis and abscess of right lower extremity (Acute) Osteomyelitis (Acute) LLE osteo - prior cxs with MRSA and PsA. Now cxs showing GBS. Cont ceftriaxone/flagyl for now. Taken to OR for I&D by Dr. Weldon. Counseled her that amputation would be her best chance of cure and regaining some mobility. She wants to keep her foot for a little longer. Cr improved here. May be a candidate for po abx at discharge if she refuses further surgery. Will follow, thank you. D/w Dr. Weldon.
[2019-07-05 17:01] LABS: Bedside Glucose 113 mg/dL (70-110)
[2019-07-05 19:45] VITALS: BP 148/78; PULSE 80; RESP 20; TEMP 36.8; O2SAT 99
[2019-07-05 22:41] LABS: Bedside Glucose 110 mg/dL (70-110)
[2019-07-06 01:41] VITALS: BP 125/54; PULSE 74; RESP 18; TEMP 36.8; O2SAT 97
[2019-07-06] MEDS: Heparin Injection (Vial) 5,000 UNIT/ML VIAL 5000 UNIT SC ×2 (05:39→21:59)
[2019-07-06] MEDS: Gabapentin 100 MG Capsule PO ×3 (05:39→21:59)
[2019-07-06] MEDS: Acetaminophen 500 MG Tablet PO ×3 (05:39→17:11)
[2019-07-06] MEDS: metroNIDAZOLE 500 MG/100 ML BAG 100 MG IV (05:42)
[2019-07-06 05:54] LABS: Absolute Lymphocyte Count 1.59 X10^3/uL (0.83-4.51); Absolute Neutrophil Count 16.1 X10^3/uL (2.0-7.7); Basophil# 0.09 X10^3/uL; Basophil% 0.5 % (0-1); Eosinophil# 0.42 X10^3/uL; Eosinophils% 2.1 % (0-5); Hemoglobin 8.6 g/dL (12.0-15.0); Lymphocyte # 1.59 X10^3/ul (4.0); Mean Corp Hgb Conc 29.7 g/dL (32-36); Mean Corpuscular Hgb 25.4 pg (27.0-32.0); Mean Corpuscular Volume 85.8 fL (81-99); Mean Platelet Vol. 9.2 fl (6.2-12.0); Monocyte# 1.31 X10^3/uL; Monocyte% 6.6 % (0-10); NRBC Flagged by Analyzer 0 % (0-5); Neutrophil # 16.05 X10^3/uL (2.7-7.7); Neutrophil % 80.2 % (47-70); Platelet Count 478 K/mm3 (150-450); RBC Distribution Width CV 17.4 % (11.6-14.6); RBC Distribution Width SD 53.4 fl (35.1-43.9); Red Blood Count 3.38 M/mm3 (4.2-5.4)
[2019-07-06 06:14] LABS: Anion Gap 9 (5-15); BUN 47 mg/dL (7-18); BUN/Creat Ratio 25.1 RATIO (10-20); Calcium,Total 8.9 mg/dL (8.5-10.1); Chloride 116 mmol/L (98-107); Creatinine, Serum 1.87 mg/dL (0.55-1.02); EST Glomerular Filtration Rate 29 mL/min (>60); Est Glom Filt Rate - Afr Amer 35 mL/min (>60); Estimated Creatinine Clearance 29.58 ml/min; Glucose 103 mg/dL (74-106); Potassium 4.2 mmol/L (3.5-5.1); Sodium Level 139 mmol/L (136-145)
[2019-07-06 06:50] LABS: Bedside Glucose 110 mg/dL (70-110)
[2019-07-06] MEDS: Allopurinol 300 MG Tablet PO (08:33)
[2019-07-06] MEDS: Atenolol 50 MG Tablet PO (08:34)
[2019-07-06] MEDS: dilTIAZem CD 180 MG Capsule PO (08:34)
[2019-07-06] MEDS: 0.9% Normal Saline 1,000 ML 125 ML IV ×2 (08:34→19:48)
[2019-07-06 08:40] VITALS: BP 141/66; PULSE 85; RESP 18; TEMP 36.9; O2SAT 95
--- NOTE | 2019-07-06 09:40 | PCM.RX.CS ---
Consult Pharmacy has been consulted to manage selected antiobiotic: Vancomycin Type of Consult: New start Suspected Infection: Osteomyelitis Labs: Sodium 139 mmol/L (136-145) 07/06/19 05:06 Potassium 4.2 mmol/L (3.5-5.1) 07/06/19 05:06 Chloride 116 mmol/L (98-107) H 07/06/19 05:06 Carbon Dioxide 14.0 mmol/L (21.0-32.0) L 07/06/19 05:06 Anion Gap 9 (5-15) 07/06/19 05:06 BUN 47 mg/dL (7-18) H 07/06/19 05:06 Creatinine 1.87 mg/dL (0.55-1.02) H 07/06/19 05:06 Est GFR (MDRD) Af Amer 35 mL/min (>60) L 07/06/19 05:06 Est GFR (MDRD) Non-Af 29 mL/min (>60) L 07/06/19 05:06 BUN/Creatinine Ratio 25.1 RATIO (10-20) H 07/06/19 05:06 Glucose 103 mg/dL (74-106) 07/06/19 05:06 Random Vancomycin 11.5 ug/mL (0.0-15.0) 07/04/19 05:30 Microbiology: Microbiology 07/04/19 08:25 Bone - Other Gram Stain - Final 07/04/19 08:25 Bone - Other Wound Culture - Preliminary Streptococcus group B Staphylococcus species 07/04/19 08:25 Bone - Other Anaerobic Culture - Preliminary Checking for anaerobes, further studies to follow. 07/02/19 22:01 Wound - Ankle Gram Stain - Final 07/02/19 22:01 Wound - Ankle Wound Culture - Final Streptococcus agalactiae (B) 07/02/19 22:01 Wound - Ankle Anaerobic Culture - Final No anaerobic bacteria isolated. Weight used for dosin kg Estimated Creatinine Clearance: 29ml/min Goal Trough: 15-20 mcg/mL Pharmacy Plan for Drug Dosing: Pt to receive a loading dose of Vancomycin 2000mg IV x1 on 07/06/2019 at 1100. Based on pt's weight and renal function pt to receive a maintenance dose of Vancomycin 1000mg IV q24h to start 07/07/2019 at 1100. Trough to be drawn before the 3rd total dose on 07/07/2019 at 1030. Pharmacy Service will continue to monitor and adjust dosing as required. Follow-Up Labs: Trough Vancomycin - 07/08/19 @ 1030
--- NOTE | 2019-07-06 10:54 | PCM.PN.ID ---
Patient Problems: Active and Suspected Problems (Last Reviewed 07/03/19 @ 01:[address] Darwin Lema MD) Osteomyelitis (Acute) Subjective: Feeling ok, tearful about her leg. No fever. - Physical Exam Vitals/I&O's: Vital Signs Temp Pulse Resp BP Pulse Ox 98.5 F 85 18 141/66 H 95 07/06/19 08:40 07/06/19 08:40 07/06/19 08:40 07/06/19 08:40 07/06/19 08:40 Oxygen Delivery Method Room Air Weight: 96.751 kg Body Mass Index (BMI) 34.4 Finger Stick Blood Glucose 163 Intake and Output for Last 24 Hours 07/04/19 07/05/19 07/06/19 23:59 23:59 23:59 Intake Total 3310.41 / 3310.41 4837.92 / 4837.92 1177.08 / 1177.08 Output Total 2100 / 2100 4550 / 4550 Balance 1210.41 / 1210.41 287.92 / 287.92 1177.08 / 1177.08 General: Alert, Cooperative, No apparent distress Lungs: Clear to auscultation, Normal air movement Cardiovascular: Regular rate, Regular Rhythm Abdomen: Soft, Non Tender, Non-Distended Skin: Ulcer/ Wound - LLE wrapped Microbiology Past 72 Hours 07/04/19 08:25 Bone - Other Gram Stain - Final 07/04/19 08:25 Bone - Other Wound Culture - Preliminary Streptococcus group B Staphylococcus species 07/04/19 08:25 Bone - Other Anaerobic Culture - Preliminary Checking for anaerobes, further studies to follow. 07/02/19 22:01 Wound - Ankle Gram Stain - Final 07/02/19 22:01 Wound - Ankle Wound Culture - Final Streptococcus agalactiae (B) 07/02/19 22:01 Wound - Ankle Anaerobic Culture - Final No anaerobic bacteria isolated. Laboratory Results 07/05/19 11:39: POC Glucose 91 07/05/19 15:59: POC Glucose 113 H 07/05/19 22:29: POC Glucose 110 07/06/19 05:06: WBC 20.0 H, RBC 3.38 L, Hgb 8.6 L, Hct 29.0 L, MCV 85.8, MCH 25.4 L, MCHC 29.7 L, RDW Std Deviation 53.4 H, RDW Coeff of Racheal 17.4 H, Plt Count 478 H, MPV 9.2, Immature Gran % (Auto) 2.600 H, Neut % (Auto) 80.2 H, Lymph % (Auto) 8.0 L, [place] % (Auto) 6.6, Eos % (Auto) 2.1, Baso % (Auto) 0.5, Absolute Neuts (auto) 16.1 H, Absolute Lymphs (auto) 1.59, Nucleated RBC % 0 07/06/19 05:06: Sodium 139, Potassium 4.2, Chloride 116 H, Carbon Dioxide 14.0 L, Anion Gap 9, BUN 47 H, Creatinine 1.87 H, Estim Creat Clear Calc 29.58, Est GFR (MDRD) Af Amer 35 L, Est GFR (MDRD) Non-Af 29 L, BUN/Creatinine Ratio 25.1 H, Glucose 103, Calcium 8.9 07/06/19 06:44: POC Glucose 110 Current Medications Acetaminophen (Tylenol) 500 mg PO Q6 [facility] Last Admin: 07/06/19 05:39 Dose: 500 mg Documented by: Allopurinol (Zyloprim) 300 mg PO DAILYCM [facility] Last Admin: 07/06/19 08:33 Dose: 300 mg Documented by: Atenolol (Tenormin (Beta Jona)) 50 mg PO DAILY [facility] Last Admin: 07/06/19 08:34 Dose: 50 mg Documented by: Cyclobenzaprine HCl (Flexeril) 10 mg PO TID PRN PRN PRN Reason: muscle spasm Last Admin: 07/03/19 21:20 Dose: 10 mg Documented by: Dextrose (D50w Syringe) 0 gm IV X1 PRN; Protocol PRN Reason: Hypoglycemia Diltiazem HCl (Cardizem Cd) 180 mg PO DAILY [facility] Last Admin: 07/06/19 08:34 Dose: 180 mg Documented by: Gabapentin (Neurontin) 100 mg PO TID [facility] Last Admin: 07/06/19 05:39 Dose: 100 mg Documented by: Glucagon () 1 mg IM .X1 PRN PRN Reason: Hypoglycemia Heparin Sodium (Porcine) (Heparin Na) 5,000 unit SC Q8 [facility] Last Admin: 07/06/19 05:39 Dose: 5,000 unit Documented by: Sodium Chloride () 1,000 mls @ 125 mls/hr IV .Q8H [facility] Last Infusion: 07/06/19 09:16 Dose: 125 mls/hr Documented by: Sodium Chloride () 250 mls @ 15 mls/hr IV .[id number] PRN PRN Reason: Additional IVPB Infusion Ceftriaxone Sodium 2 gm/ (Sodium Chloride) 50 mls @ 100 mls/hr IV Q24 [facility] Last Infusion: 07/06/19 09:16 Dose: Infused Documented by: Vancomycin IV Pharmacy to Dose (1 ea/ Sodium Chloride) 500 mls @ 250 mls/hr IV X1 PRN; Protocol PRN Reason: Rx to Dose Vancomycin HCl 2,000 mg/ (Sodium Chloride) 540 mls @ 250 mls/hr IV X1 ONE Stop: 07/06/19 13:09 Vancomycin HCl (Vancomycin) 1,000 mg in 200 mls @ 200 mls/hr IV Q24H [facility] Insulin Human Lispro (Humalog Kwikpen (Bkc)) 0 unit SC ACHS [facility]; Protocol Last Admin: 07/06/19 06:46 Dose: Not Given Documented by: Melatonin (Melatonin) 3 mg PO QHS PRN PRN PRN Reason: INSOMNIA Last Admin: 07/03/19 00:31 Dose: 3 mg Documented by: Nutritional Formula (Pancho - [place] Flavor) 1 packet PO BIDCM [facility] Last Admin: 07/06/19 08:25 Dose: Not Given Documented by: Ondansetron HCl (Zofran) 4 mg IV Q8H PRN PRN PRN Reason: NAUSEA/VOMITING Sodium Chloride () 10 - 40 ml IV UD PRN PRN Reason: SALINE FLUSH Medical Necessity - Tobacco Use Smoking Status: Current every day smoker Route of nutrition/ use of supplements: [] Nutritional Intake: [] IV Site: [] Gardner Catheter: [] - Assessment/Plan Antibiotics: [] Assessment/Plan: [] Active and Suspected Problems (Last Reviewed 07/03/19 @ 01:[address] Darwin Lema MD) Cellulitis and abscess of right lower extremity (Acute) Osteomyelitis (Acute) LLE osteo - prior cxs with MRSA and PsA. Now cxs showing GBS and staph. Taken to OR for I&D by Dr. Weldon. Counseled her that amputation would be her best chance of cure and regaining some mobility. Wbc increasing. Recommend amputation, she is now agreeable. Cont ceftriaxone, add vanc. Will follow. D/w Dr. Brunson
--- NOTE | 2019-07-06 10:57 | PCM.PN.HOSP ---
Patient Problems: Active and Suspected Problems (Last Reviewed 07/03/19 @ 01:[address] Darwin Lema MD) Osteomyelitis (Acute) Reason for Visit: Left LE osteo Subjective: No pain. No change in chronic paraesthesias. No fever/chills. No Nausea/vomting/diarrhea. No cough/sob. Pt agreeable to amputation if necessary. Vitals/I&O's: Vital Signs Temp Pulse Resp BP Pulse Ox 98.5 F 85 18 141/66 H 95 07/06/19 08:40 07/06/19 08:40 07/06/19 08:40 07/06/19 08:40 07/06/19 08:40 Oxygen Delivery Method Room Air Weight: 213 lb 4.8 oz Body Mass Index (BMI) 34.4 Finger Stick Blood Glucose 163 Intake and Output for Last 24 Hours 07/04/19 07/05/19 07/06/19 23:59 23:59 23:59 Intake Total 3310.41 / 3310.41 4837.92 / 4837.92 1177.08 / 1177.08 Output Total 2100 / 2100 4550 / 4550 Balance 1210.41 / 1210.41 287.92 / 287.92 1177.08 / 1177.08 General: Alert, Oriented x3, Cooperative HEENT: Atraumatic, PERRLA, EOMI, Normocephalic Neck: Supple, No JVD, Negative Carotid Bruits Lungs: Clear to auscultation, Normal air movement Cardiovascular: Regular rate, No murmurs Abdomen: Bowel Sounds Present, Soft, Non Tender Extremities: No edema, Capillary Refill Less than 3 Seconds Skin: No rashes, No breakdown Musculoskeletal: No Tenderness to Palpation of Joints or Extremities, - - distal pms intact LE BL Neurological: Cranial nerves II-XII grossly intact Psych/Mental Status: Depressed, Alert and oriented to time, place, person, mood and affect Microbiology Past 72 Hours 07/04/19 08:25 Bone - Other Gram Stain - Final 07/04/19 08:25 Bone - Other Wound Culture - Preliminary Streptococcus group B Staphylococcus species 07/04/19 08:25 Bone - Other Anaerobic Culture - Preliminary Checking for anaerobes, further studies to follow. 07/02/19 22:01 Wound - Ankle Gram Stain - Final 07/02/19 22:01 Wound - Ankle Wound Culture - Final Streptococcus agalactiae (B) 07/02/19 22:01 Wound - Ankle Anaerobic Culture - Final No anaerobic bacteria isolated. Laboratory Results 07/05/19 11:39: POC Glucose 91 07/05/19 15:59: POC Glucose 113 H 07/05/19 22:29: POC Glucose 110 07/06/19 05:06: WBC 20.0 H, RBC 3.38 L, Hgb 8.6 L, Hct 29.0 L, MCV 85.8, MCH 25.4 L, MCHC 29.7 L, RDW Std Deviation 53.4 H, RDW Coeff of Racheal 17.4 H, Plt Count 478 H, MPV 9.2, Immature Gran % (Auto) 2.600 H, Neut % (Auto) 80.2 H, Lymph % (Auto) 8.0 L, [place] % (Auto) 6.6, Eos % (Auto) 2.1, Baso % (Auto) 0.5, Absolute Neuts (auto) 16.1 H, Absolute Lymphs (auto) 1.59, Nucleated RBC % 0 07/06/19 05:06: Sodium 139, Potassium 4.2, Chloride 116 H, Carbon Dioxide 14.0 L, Anion Gap 9, BUN 47 H, Creatinine 1.87 H, Estim Creat Clear Calc 29.58, Est GFR (MDRD) Af Amer 35 L, Est GFR (MDRD) Non-Af 29 L, BUN/Creatinine Ratio 25.1 H, Glucose 103, Calcium 8.9 07/06/19 06:44: POC Glucose 110 Current Medications Acetaminophen (Tylenol) 500 mg PO Q6 [facility] Last Admin: 07/06/19 05:39 Dose: 500 mg Documented by: Allopurinol (Zyloprim) 300 mg PO DAILYCM [facility] Last Admin: 07/06/19 08:33 Dose: 300 mg Documented by: Atenolol (Tenormin (Beta Jona)) 50 mg PO DAILY [facility] Last Admin: 07/06/19 08:34 Dose: 50 mg Documented by: Cyclobenzaprine HCl (Flexeril) 10 mg PO TID PRN PRN PRN Reason: muscle spasm Last Admin: 07/03/19 21:20 Dose: 10 mg Documented by: Dextrose (D50w Syringe) 0 gm IV X1 PRN; Protocol PRN Reason: Hypoglycemia Diltiazem HCl (Cardizem Cd) 180 mg PO DAILY [facility] Last Admin: 07/06/19 08:34 Dose: 180 mg Documented by: Gabapentin (Neurontin) 100 mg PO TID [facility] Last Admin: 07/06/19 05:39 Dose: 100 mg Documented by: Glucagon () 1 mg IM .X1 PRN PRN Reason: Hypoglycemia Heparin Sodium (Porcine) (Heparin Na) 5,000 unit SC Q8 [facility] Last Admin: 07/06/19 05:39 Dose: 5,000 unit Documented by: Sodium Chloride () 1,000 mls @ 125 mls/hr IV .Q8H [facility] Last Infusion: 07/06/19 09:16 Dose: 125 mls/hr Documented by: Sodium Chloride () 250 mls @ 15 mls/hr IV .[id number] PRN PRN Reason: Additional IVPB Infusion Ceftriaxone Sodium 2 gm/ (Sodium Chloride) 50 mls @ 100 mls/hr IV Q24 [facility] Last Infusion: 07/06/19 09:16 Dose: Infused Documented by: Vancomycin IV Pharmacy to Dose (1 ea/ Sodium Chloride) 500 mls @ 250 mls/hr IV X1 PRN; Protocol PRN Reason: Rx to Dose Vancomycin HCl 2,000 mg/ (Sodium Chloride) 540 mls @ 250 mls/hr IV X1 ONE Stop: 07/06/19 13:09 Vancomycin HCl (Vancomycin) 1,000 mg in 200 mls @ 200 mls/hr IV Q24H [facility] Insulin Human Lispro (Humalog Kwikpen (Bkc)) 0 unit SC ACHS [facility]; Protocol Last Admin: 07/06/19 06:46 Dose: Not Given Documented by: Melatonin (Melatonin) 3 mg PO QHS PRN PRN PRN Reason: INSOMNIA Last Admin: 07/03/19 00:31 Dose: 3 mg Documented by: Nutritional Formula (Pancho - [place] Flavor) 1 packet PO BIDCM [facility] Last Admin: 07/06/19 08:25 Dose: Not Given Documented by: Ondansetron HCl (Zofran) 4 mg IV Q8H PRN PRN PRN Reason: NAUSEA/VOMITING Sodium Chloride () 10 - 40 ml IV UD PRN PRN Reason: SALINE FLUSH STROKE Vital Signs/Narrative: Vital Signs Temp Pulse Resp BP Pulse Ox 07/06/19 08:40 98.5 F 85 18 141/66 H 95 Medical Necessity - Tobacco Use Smoking Status: Current every day smoker Assessment/Plan All Active Problems (Last Reviewed 07/03/19 @ 01:[address] Darwin Lema MD) Cellulitis and abscess of right lower extremity (Acute) Osteomyelitis (Acute) Acute osteomyelitis involving ankle and foot (Acute) Diabetic foot ulcer associated with type 2 diabetes mellitus (Acute) Tobacco abuse counseling (Acute) 1. Osteomyelitis Left ankle - surgical cx with staph and WBC increased. Vanco started. Continue rocephin. Wound also with Strep. ID following. Dr. Ray and Dr. Quezada following for surgical needs. S/P I&D POD#2. Amputation recommended, pt agreeable. 2. Chronic normocytic anemia - 8.0 --> 8.6. Baseline around 9. Trend. No obvious bleeding. 3. Hyperkalemia - resolved. 4. JOEY on CKD IV - continue IV fluids, gradually improving. nephrotoxic agents held. K corrected. Follows [facility] as o/p. 5. DMt2 - diet controlled only at home. a1c 6.5 c/w T2DM, pt would benefit from more aggressive glucose control given her repeated osteomyelitis and CKD. 6. hx gout - allopurinol continued. 7. HTN - macario held, atenolol. 8. Nicotine abuse - pt declines patch. She needs complete cessation given #1. DVT ppx: heparin DC planning: PTOT. may need amputation. balance issues at home with near falls leading to this admission. This patient was seen by Cuco Webber PA-C under the supervision of Dr. Brunson
--- NOTE | 2019-07-06 11:35 | PCM.NTREPORT ---
Nutrition Therapy Report - History Nutrition Services has been consulted to:: Manage nutrient details of diet order, Conduct nutrition education Current diet / nutrition support order:: renal 60 g protein, 1600 calorie controlled - Anthropometric Measurements Height:: 5 ft 6 in Weight:: 96.751 kg Body Mass Index (BMI):: 34.4 - Relevant Labs Relevant Labs:: WBC 20.0 K/mm3 (4.4-11.0) H 07/06/19 05:06 RBC 3.38 M/mm3 (4.2-5.4) L 07/06/19 05:06 Hgb 8.6 g/dL (12.0-15.0) L 07/06/19 05:06 Hct 29.0 % (37-47) L 07/06/19 05:06 MCH 25.4 pg (27.0-32.0) L 07/06/19 05:06 MCHC 29.7 g/dL (32-36) L 07/06/19 05:06 RDW Std Deviation 53.4 fl (35.1-43.9) H 07/06/19 05:06 RDW Coeff of Racheal 17.4 % (11.6-14.6) H 07/06/19 05:06 Plt Count 478 K/mm3 (150-450) H 07/06/19 05:06 Immature Gran % (Auto) 2.600 % (0.0-0.9) H 07/06/19 05:06 Neut % (Auto) 80.2 % (47-70) H 07/06/19 05:06 Lymph % (Auto) 8.0 % (19-41) L 07/06/19 05:06 Absolute Neuts (auto) 16.1 X10^3/uL (2.0-7.7) H 07/06/19 05:06 ESR 92 mm/hr (0-30) H 07/02/19 22:00 PT 15.5 SECONDS (11.7-14.9) H 07/04/19 05:30 Sodium 135 mmol/L (136-145) L 07/02/19 22:00 Potassium 5.6 mmol/L (3.5-5.1) H 07/03/19 14:00 Chloride 116 mmol/L (98-107) H 07/06/19 05:06 Carbon Dioxide 14.0 mmol/L (21.0-32.0) L 07/06/19 05:06 BUN 47 mg/dL (7-18) H 07/06/19 05:06 Creatinine 1.87 mg/dL (0.55-1.02) H 07/06/19 05:06 Est GFR (MDRD) Af Amer 35 mL/min (>60) L 07/06/19 05:06 Est GFR (MDRD) Non-Af 29 mL/min (>60) L 07/06/19 05:06 BUN/Creatinine Ratio 25.1 RATIO (10-20) H 07/06/19 05:06 Glucose 115 mg/dL (74-106) H 07/03/19 14:00 Hemoglobin A1c 6.5 % (4.2-6.3) H 07/03/19 14:00 Calcium 8.4 mg/dL (8.5-10.1) L 07/03/19 14:00 C-React Prot Ext Range 189.00 mg/L (0.0-3.0) H 07/02/19 22:00 - Assessment Food / Nutrition-Related History:: Pt upset w/ current diet order. Fair intake at meals secondary to limited menu choices, selective eating habits. Pt does not like artificial sweetners. States she knows how to limit sugar and would prefer regular syrup w/ breakfast. Blood glucose has been adequately controlled this admission- insulin only given 1x per MAY. A1C drawn 07/02 was 6.5% suggesting adequate glycemic control [employer]. Hyperkalemia has been corrected. Now w/ open surgicial wound s/p debridement. Pt will likely need amputation d/t osteomyelitis. Pt refusing Pancho BID- too sweet. Wt decrease of 1.4 kg since admission (1.4%), significant for malnutrition. Not on diuretic. Edema unchanged from initial assessment, LLE non-pitting. - Nutrition Diagnosis Evidence of Malnutrition Exists:: Yes Moderate PCM:: Acute Illness - Nutrition Intervention Nutrition Prescription:: [id number] calories, 55-65 g protein/day - Food / Nutrient Delivery Interventions Summary of nutrition intervention:: Discussed diet as currently ordered w/ pt. Agreeable to continuing w/ potassium restricted diet. Pt verbalizes understanding of potassium restriction and control of blood glucose. Blood glucose appears adequately controlled both currently and [employer]. Pt not eating very much at meals and meets criteria for acute malnutrition. Will liberalize to cardiac/low cholesterol w/ potassium restriction. Nutrition support ordered as / adjusted to:: cardiac/low cholesterol, low potassium diet Nutrition education provided?: Yes - Reviewed potassium restriction - MNT Monitoring MNT Follow-up in:: 3-5 days
[2019-07-06 11:38] VITALS: BMI 34.4
[2019-07-06 12:01] LABS: Bedside Glucose 121 mg/dL (70-110)
--- NOTE | 2019-07-06 13:16 | PCM.CONS.GEN ---
Reason for Consult Date of Consultation: 07/06/19 Reason for Consultation: Nonhealing diabetic ulcer abscess left ankle with osteomyelitis. REFERRING PHYSICIAN: Dr. Brunson. CPR AMBULANCE DRIVER: Dr. Ray. History of Present Illness: ]The patient is a 59 year old F with a significant history of diabetes mellitus; lupus; dislocation of left ankle; and Pseudomonas infection of left ankle who presented with increasing pain and purulent drainage of left ankle ulcer. This has been going on for about a week. In the past patient was on doxycycline for about a year because of osteomyelitis of her left ankle. With her new symptoms she took some leftovers of the doxycycline. However her symptoms continued to worsen. She was admitted to the hospital and started on Vancomycin and Zosyn. Her WBC was 17.2 on admission. Today it is 20.0. X-ray of the tibia/fibula showed resumption and erosion. CT scan showed periosteal reaction and destructive change of the tibia adjacent to soft tissue defect consistent with osteomyelitis. Destruction and postoperative change of the talus and erosive change of the calcaneus with contiguous spread osteomyelitis versus inflammatory and postoperative/posttraumatic arthropathy. Dr. Weldon took her to surgery on 07/04/19 for incision, drainage and debridement of left ankle down to bone. Wound culture showed Streptococcus agalactiae and Kocuria kristinae. Antibiotics were changed to Ceftriaxone and Flagyl. Pathology is pending. HgbA1c was 6.5. She reported that around October 2018 hardware was removed from her left lower extremity because of Pseudomonas infection. She has an unstable ankle and supposedly is non weight bearing. I was asked to evaluate this patient for surgical options for amputation. Past Medical History Past Medical History (Chronic Problems): Chronic Problems (Last Reviewed 07/03/19 @ 01:[address] Darwin Lema MD) Sleep apnea (Chronic) Recurrent dislocation of left ankle (Chronic) Alopecia (Chronic) alopecia overlying soft tissue mass right temporal parietal scalp Head mass (Chronic) 8 cm soft tissue mass right temporal parietal scalp with overlying alopecia Open left ankle fracture (Chronic) Anemia (Chronic) Rheumatoid arthritis (Chronic) Gout (Chronic) Tinea unguium (Chronic) Type 2 diabetes mellitus with diabetic polyneuropathy (Chronic) Peripheral neuropathy (Chronic) Arthritis (Chronic) Hypertension (Chronic) High cholesterol (Chronic) Hyperlipidemia (Chronic) Type 2 diabetes mellitus (Chronic) 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) Uncontrolled type 2 diabetes mellitus (Chronic) Tobacco use disorder (Chronic) Pure hypercholesterolemia (Chronic) History of hypertension (Chronic) Type 2 diabetes mellitus with diabetic polyneuropathy (Chronic) History of gout (Chronic) Obesity (Chronic) COPD (chronic obstructive pulmonary disease) (Chronic) Chronic renal insufficiency, stage III (moderate) (Chronic) Type 2 diabetes mellitus with foot ulcer (Chronic) 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 Darwin Lema MD) Recurrent dislocation of left ankle (Chronic) M24.472 Breakdown (mechanical) of other bone devices, implants and grafts, initial encounter (Inactive) T84.318A Arthritis (Chronic) M19.90 Hypertension (Chronic) I10 High cholesterol (Chronic) E78.00 Clostridium difficile infection B96.89 Gout M10.9 Heart disease I51.9 Inflammatory arthritis M19.90 Lupus L93.0 Rheumatoid arthritis M06.9 Diabetes E11.9 Allergies aspirin Allergy (Verified 07/02/19 21:48) Hives latex Allergy (Verified 07/02/19 21:48) Hives Penicillins Allergy (Verified 07/02/19 21:48) Hives simvastatin Allergy (Verified 07/02/19 21:48) Unknown naproxen [From Aleve] Adverse Reaction (Severe, Verified 07/02/19 21:48) Kidney disease Stage 3 Home Medications: Ambulatory Orders Medication Instructions Recorded Acetaminophen [Arthritis Pain 650 mg PO TID 08/10/18 Relief] Atenolol [Tenormin (beta jona)] 50 mg PO DAILY 08/10/18 diltiazem HCl 180 mg 180 mg PO DAILY cap 12/15/18 capsule,extended release 24 hr lisinopril 40 mg tablet 40 mg PO BID tab 12/15/18 cyclobenzaprine 10 mg tablet 10 mg PO TID PRN #90 tab 02/02/19 Allopurinol 300 mg PO DAILY 07/03/19 Blood Sugar Diagnostic [Accu-Chek See Rx Instructions .ROUTE 07/03/19 Chloe Plus test strp] .MEDSUPPLY Cholecalciferol (Vitamin D3) 50,000 unit PO MO 07/03/19 [D3-50] Gabapentin [Neurontin] 300 mg PO TID 04/04/20 Surgical History: Surgical History (Last Reviewed 07/03/19 @ 01:[address] Darwin Lema MD) History of carpal tunnel release Z98.890 History of hysterectomy Z98.890, Z90.710 History of orthopedic surgery Z98.890 Left foot amputation of right pinke toe history of 2 back sugeries history of right femoral stent history of right shoulder surgery Surgical History: - - Left ankle ORIF Psychiatric History: No pertinent psych hx BOARD CERTIFIED FAMILY PHYSICIAN History: No pertinent BOARD CERTIFIED FAMILY PHYSICIAN history Smoking Status: Current every day smoker - *Family History Maternal Family History: Family History (Last Reviewed 07/03/19 @ 01:[address] Darwin Lema MD) Mother Diabetes Hypertension CVA (cerebral vascular accident) Brother Alcoholism Sister Cancer Father Heart disease Respiratory disease History Items: - Paternal Family History: Family History (Last Reviewed 07/03/19 @ 01:[address] Darwin Lema MD) Mother Diabetes Hypertension CVA (cerebral vascular accident) Brother Alcoholism Sister Cancer Father Heart disease Respiratory disease History Items: - Review of Systems Comment: Constitutional: Denies: Chills, Fever, Weight Change. HEENT: Denies: Head Aches, Sinus Congestion, Sinus Drainage. Cardiovascular: Denies: Chest Pain, Palpitations. Respiratory: Denies: Cough, Shortness of breath at rest, Sputum production. Gastrointestinal: Denies: Abdominal Pain, Nausea, Vomiting. Genitourinary: Denies: Dysuria. Musculoskeletal: Denies: Joint Pain, Joint Tenderness. Skin: Reports: Wounds. Denies: Rash. Neurological: Denies: Numbness, Tingling, Focal weakness. Psychiatric: Denies: Anxiety, Depression, Homicidal Ideations, Suicidal Ideations. Hematologic/ Lymphatic: Denies: Easy Bruising, Easy Bleeding Patient Problems: Active and Suspected Problems (Last Reviewed 07/03/19 @ 01:[address] Darwin Lema MD) Cellulitis and abscess of left lower extremity (Acute) Osteomyelitis (Acute) - Physical Exam Vitals/I&O's: General: Alert, Oriented x3, Cooperative HEENT: PERRLA, EOMI. Neck: Supple, nontender. No cervical adenopathy. Lungs: Clear to auscultation. Cardiovascular: Regular rate. Abdomen: Soft, Nondistended. Extremities: Edema - Left foot, - - Shortened fifth toe of right foot. Skin: Ulcer/ Wound -On the left anteromedial ankle is a surgical wound from recent I&D of diabetic abscess. Measures 8 x 4 x 7 cm. Bone palpable at the base of the surgical wound. On the left anterior ankle is a smaller ulcer and more superficial into subcutaneous tissue. Measures 2 x 1 x 0.2 cm. Neurological: Cranial nerves II-XII grossly intact. Psych/Mental Status: Normal Affect, Appropriate. Vital Signs Temp Pulse Resp BP Pulse Ox 98.5 F 85 18 141/66 H 95 07/06/19 08:40 07/06/19 08:40 07/06/19 08:40 07/06/19 08:40 07/06/19 08:40 Oxygen Delivery Method Room Air Weight: 213 lb 4.791 oz Body Mass Index (BMI) 34.4 Finger Stick Blood Glucose 163 Intake and Output for Last 24 Hours 07/04/19 07/05/19 07/06/19 23:59 23:59 23:59 Intake Total 3310.41 / 3310.41 4837.92 / 4837.92 1177.08 / 1177.08 Output Total 2100 / 2100 4550 / 4550 Balance 1210.41 / 1210.41 287.92 / 287.92 1177.08 / 1177.08 Diagnostic Data Tibia/Fibula X-Ray 07/02/19 22:00 IMPRESSION: Soft tissue swelling around the ankle with increasing resorption/erosion of the distal tibia and fibula. There is also resorption of the proximal tarsal bones of the foot. Osteomyelitis cannot be excluded. Electronically Signed: Isaias Weldon DO at 22:26 EDT Tel [phone], Service support , Foot X-Ray 07/03/19 09:03 IMPRESSION: Severe erosion and destruction of the tibiotalar joint as well as talus with findings most concerning for interval infectious destruction given comparison to 09 September 2018. Other considerations would include Charcot joint. Electronically Signed: Javier Mcmullen DO at 9:35 EDT , Service support , Lower Extremity CT 07/03/19 09:03 IMPRESSION: Periosteal reaction and destructive change of the tibia adjacent to soft tissue defect consistent with osteomyelitis. Destruction and postoperative change of the talus and erosive change of the calcaneus with contiguous spread osteomyelitis versus inflammatory and postoperative/posttraumatic arthropathy. Electronically Signed: Shahbaz Gtz MD at 14:38 EDT , Service support , Chest X-Ray 07/03/19 15:30 IMPRESSION: No acute pulmonary findings. Electronically Signed: Ck Rand MD at 21:10 EDT Tel , Service support , Ankle X-Ray 07/04/19 08:38 IMPRESSION: Postoperative changes of the midfoot secondary to debridement with reduced amorphous osseous density showing likely bone grafting and debridement of the mid calcaneus with diffuse degenerative changes as above. Electronically Signed: Javier Mcmullen DO at 9:24 EDT , Service support , Microbiology Past 72 Hours 07/04/19 08:25 Bone - Other Gram Stain - Final 07/04/19 08:25 Bone - Other Wound Culture - Preliminary Streptococcus group B Staphylococcus species 07/04/19 08:25 Bone - Other Anaerobic Culture - Preliminary Checking for anaerobes, further studies to follow. 07/02/19 22:01 Wound - Ankle Gram Stain - Final 07/02/19 22:01 Wound - Ankle Wound Culture - Final Streptococcus agalactiae (B) 07/02/19 22:01 Wound - Ankle Anaerobic Culture - Final No anaerobic bacteria isolated. Laboratory Results 07/05/19 15:59: POC Glucose 113 H 07/05/19 22:29: POC Glucose 110 07/06/19 05:06: WBC 20.0 H, RBC 3.38 L, Hgb 8.6 L, Hct 29.0 L, MCV 85.8, MCH 25.4 L, MCHC 29.7 L, RDW Std Deviation 53.4 H, RDW Coeff of Racheal 17.4 H, Plt Count 478 H, MPV 9.2, Immature Gran % (Auto) 2.600 H, Neut % (Auto) 80.2 H, Lymph % (Auto) 8.0 L, Stewart % (Auto) 6.6, Eos % (Auto) 2.1, Baso % (Auto) 0.5, Absolute Neuts (auto) 16.1 H, Absolute Lymphs (auto) 1.59, Nucleated RBC % 0 07/06/19 05:06: Sodium 139, Potassium 4.2, Chloride 116 H, Carbon Dioxide 14.0 L, Anion Gap 9, BUN 47 H, Creatinine 1.87 H, Estim Creat Clear Calc 29.58, Est GFR (MDRD) Af Amer 35 L, Est GFR (MDRD) Non-Af 29 L, BUN/Creatinine Ratio 25.1 H, Glucose 103, Calcium 8.9 07/06/19 06:44: POC Glucose 110 07/06/19 11:25: POC Glucose 121 H Current Medications Acetaminophen (Tylenol) 500 mg PO Q6 [facility] Last Admin: 07/06/19 11:18 Dose: 500 mg Documented by: Allopurinol (Zyloprim) 300 mg PO DAILYCM [facility] Last Admin: 07/06/19 08:33 Dose: 300 mg Documented by: Atenolol (Tenormin (Beta Jona)) 50 mg PO DAILY [facility] Last Admin: 07/06/19 08:34 Dose: 50 mg Documented by: Cyclobenzaprine HCl (Flexeril) 10 mg PO TID PRN PRN PRN Reason: muscle spasm Last Admin: 07/03/19 21:20 Dose: 10 mg Documented by: Dextrose (D50w Syringe) 0 gm IV X1 PRN; Protocol PRN Reason: Hypoglycemia Diltiazem HCl (Cardizem Cd) 180 mg PO DAILY [facility] Last Admin: 07/06/19 08:34 Dose: 180 mg Documented by: Gabapentin (Neurontin) 100 mg PO TID [facility] Last Admin: 07/06/19 05:39 Dose: 100 mg Documented by: Glucagon () 1 mg IM .X1 PRN PRN Reason: Hypoglycemia Heparin Sodium (Porcine) (Heparin Na) 5,000 unit SC Q8 [facility] Last Admin: 07/06/19 05:39 Dose: 5,000 unit Documented by: Sodium Chloride () 1,000 mls @ 125 mls/hr IV .Q8H [facility] Last Infusion: 07/06/19 09:16 Dose: 125 mls/hr Documented by: Sodium Chloride () 250 mls @ 15 mls/hr IV .[id number] PRN PRN Reason: Additional IVPB Infusion Ceftriaxone Sodium 2 gm/ (Sodium Chloride) 50 mls @ 100 mls/hr IV Q24 [facility] Last Infusion: 07/06/19 09:16 Dose: Infused Documented by: Vancomycin IV Pharmacy to Dose (1 ea/ Sodium Chloride) 500 mls @ 250 mls/hr IV X1 PRN; Protocol PRN Reason: Rx to Dose Vancomycin HCl (Vancomycin) 1,000 mg in 200 mls @ 200 mls/hr IV Q24H [facility] Insulin Human Lispro (Humalog Kwikpen (Bkc)) 0 unit SC ACHS [facility]; Protocol Last Admin: 07/06/19 11:26 Dose: Not Given Documented by: Melatonin (Melatonin) 3 mg PO QHS PRN PRN PRN Reason: INSOMNIA Last Admin: 07/03/19 00:31 Dose: 3 mg Documented by: Nutritional Formula (Pancho - [place] Flavor) 1 packet PO BIDCM [facility] Last Admin: 07/06/19 08:25 Dose: Not Given Documented by: Ondansetron HCl (Zofran) 4 mg IV Q8H PRN PRN PRN Reason: NAUSEA/VOMITING Sodium Chloride () 10 - 40 ml IV UD PRN PRN Reason: SALINE FLUSH Assessment/Plan All Active Problems (Last Reviewed 07/03/19 @ 01:[address] Darwin Lema MD) Cutaneous abscess of left ankle (Acute) Cellulitis and abscess of left lower extremity (Acute) Cellulitis and abscess of right lower extremity (Acute) Osteomyelitis (Acute) Acute osteomyelitis involving ankle and foot (Acute) Diabetic foot ulcer associated with type 2 diabetes mellitus (Acute) Tobacco abuse counseling (Acute) 1. Nonhealing infected diabetic ulcer left ankle with abscess. 2. Osteomyelitis. 3. History of MRSA. 4. History of Pseudomonas. 5. Recurrent dislocation left ankle. 6. Late effect open fracture left ankle. 7. Late effect mechanical breakdown hardware fixation. 8. Diabetes mellitus. 9. Smoker. X-rays and CT scan reviewed. Continue Ceftriaxone and Flagyl. Thus far the wound culture is showing Streptococcus agalactiae and Kocuria kristinae. Continue saline dressing changes wound care. She has had multiple infections in the past with MRSA and Pseudomonas and had another abscess left ankle that necessitated I&D on 07/04/19. She has an unstable floppy ankle with no hardware in place at this time. She had removal of hardware last October,. After multiple attempts at surgical reconstruction of her complex left ankle fracture, she has had repeated infections with underlying osteomyelitis and underlying instability in the ankle. Despite the incision and drainage of the abscess on 07/04/19, the patient still has an elevated white count of 20.0. The safest way to clear the infection is to proceed with a below knee amputation. The patient has refused the amputation in the past. Today she was a little tearful, but has agreed to proceed with the amputation. If the amputation is delayed, she is at increased risk of worsening infection that may become systemic leading to sepsis and possible . Patient is aware of that possibility, voices understanding, and wishes to proceed. Anticipate increased metabolic demands from the infection and the upcoming surgery. Will check a Prealbumin and encourage nutritional supplementation with protein to help the healing process. Her HgbA1c on admission was 6.5. Surgery will be done under general anesthesia. A drain will be placed, and she will be maintained on antibiotics at least until the drain is removed. Will schedule the surgery in the next couple of days. Patient was informed of the risks and complications of the procedure including alternatives to surgery. These were discussed with the patient personally. Patient voices understanding and wishes to proceed. Encouraged patient to stop smoking as it may have deleterious effects on wound healing. Essential Procedure Criteria Procedure Essential: Yes Criteria Note: On 06/15/2019 the [place] Department of Health ([facility]) Public Order signed by [facility] Director Carmen Salinas M.D., regarding the Management of Non-Essential Surgeries and Procedures for the purpose of preserving Personal Protective Equipment (PPE) and critical hospital capacity and resources within [place] went into effect as of 06/16/2019 at 5:00PM. According to the [facility] Public Order: This action will remain in full force and effect until the State of Emergency declared by the Governor no longer exists or the Director of the [facility] rescinds or modifies this Order.. This [facility] order stated all non-essential or elective surgeries and procedures that utilize PPE should be delayed unless there is undue risk to the current or future health of a patient. After reviewing the aforementioned [facility] Public Order and the patients clinical case, I have determined that the scheduled procedure meets the criteria to go forward. Risk to Patient if Procedure Delayed: Risk of rapidly worsening to severe symptoms Inpatient E&M: 94210 Init Hosp L2 - ICD-10 - E11.621, L02.416, M86.9, Z86.14, E11.9, M24.482, S82.892S, T84.318S F17.200
--- NOTE | 2019-07-06 13:18 | PCM.PROGNOTE ---
Patient Problems: Active and Suspected Problems (Last Reviewed 07/03/19 @ 01:[address] Darwin Lema MD) Cellulitis and abscess of left lower extremity (Acute) Osteomyelitis (Acute) Subjective: This 59-year-old female was seen bedside today for left lower extremity infection. She is postoperative day #2 incision and drainage with debridement with Dr. Weldon. She had a remote history of a tri-malleolus ankle fracture with failed open reduction internal fixation with subsequent hardware removal and recurrent infections, multiple reconstructive limb salvage surgeries (intramedullary anthony, internal fixation, external fixation), and several courses of antibiotics. She denies pain. She denies fever, chill, nausea, vomiting. She relates today she is ready to proceed forward with her below the knee amputation and reviewed the plan with Dr. Ray earlier this afternoon. - Physical Exam Vitals/I&O's: Vital Signs Temp Pulse Resp BP Pulse Ox 98.5 F 85 18 141/66 H 95 07/06/19 08:40 07/06/19 08:40 07/06/19 08:40 07/06/19 08:40 07/06/19 08:40 Oxygen Delivery Method Room Air Weight: 96.751 kg Body Mass Index (BMI) 34.4 Finger Stick Blood Glucose 163 Intake and Output for Last 24 Hours 07/04/19 07/05/19 07/06/19 23:59 23:59 23:59 Intake Total 3310.41 / 3310.41 4837.92 / 4837.92 1177.08 / 1177.08 Output Total 2100 / 2100 4550 / 4550 Balance 1210.41 / 1210.41 287.92 / 287.92 1177.08 / 1177.08 General: Alert, Oriented x3, Cooperative HEENT: Atraumatic Extremities: Diminished Peripheral Pulses, Edema - Decreased left lower extremity Skin: Ulcer/ Wound - Deep widespread incision and drainage site has atrophic and devitalized tissue. There is exposed remaining talus and distal tibia. There is no purulence or odor on expression. There is no erythema or streaking. Musculoskeletal: No Tenderness to Palpation of Joints or Extremities, Muscle Wasting, - - There is significant laxity noted at the remaining ankle level. Compartments are soft there are no new areas of fluctuance or bogginess on palpation including the foot, ankle, and leg Lymphatic: - - No popliteal adenopathy left lower extremity Neurological: - - Lack of normal epicritic sensation light touch is consistent with her neuropathy status Psych/Mental Status: Normal Affect, Appropriate Microbiology Past 72 Hours 07/04/19 08:25 Bone - Other Gram Stain - Final 07/04/19 08:25 Bone - Other Wound Culture - Preliminary Streptococcus group B Staphylococcus species 07/04/19 08:25 Bone - Other Anaerobic Culture - Preliminary Checking for anaerobes, further studies to follow. 07/02/19 22:01 Wound - Ankle Gram Stain - Final 07/02/19 22:01 Wound - Ankle Wound Culture - Final Streptococcus agalactiae (B) 07/02/19 22:01 Wound - Ankle Anaerobic Culture - Final No anaerobic bacteria isolated. Laboratory Results 07/05/19 15:59: POC Glucose 113 H 07/05/19 22:29: POC Glucose 110 07/06/19 05:06: WBC 20.0 H, RBC 3.38 L, Hgb 8.6 L, Hct 29.0 L, MCV 85.8, MCH 25.4 L, MCHC 29.7 L, RDW Std Deviation 53.4 H, RDW Coeff of Racheal 17.4 H, Plt Count 478 H, MPV 9.2, Immature Gran % (Auto) 2.600 H, Neut % (Auto) 80.2 H, Lymph % (Auto) 8.0 L, [place] % (Auto) 6.6, Eos % (Auto) 2.1, Baso % (Auto) 0.5, Absolute Neuts (auto) 16.1 H, Absolute Lymphs (auto) 1.59, Nucleated RBC % 0 07/06/19 05:06: Sodium 139, Potassium 4.2, Chloride 116 H, Carbon Dioxide 14.0 L, Anion Gap 9, BUN 47 H, Creatinine 1.87 H, Estim Creat Clear Calc 29.58, Est GFR (MDRD) Af Amer 35 L, Est GFR (MDRD) Non-Af 29 L, BUN/Creatinine Ratio 25.1 H, Glucose 103, Calcium 8.9 07/06/19 06:44: POC Glucose 110 07/06/19 11:25: POC Glucose 121 H Current Medications Acetaminophen (Tylenol) 500 mg PO Q6 [facility] Last Admin: 07/06/19 11:18 Dose: 500 mg Documented by: Allopurinol (Zyloprim) 300 mg PO DAILYCM [facility] Last Admin: 07/06/19 08:33 Dose: 300 mg Documented by: Atenolol (Tenormin (Beta Jona)) 50 mg PO DAILY [facility] Last Admin: 07/06/19 08:34 Dose: 50 mg Documented by: Cyclobenzaprine HCl (Flexeril) 10 mg PO TID PRN PRN PRN Reason: muscle spasm Last Admin: 07/03/19 21:20 Dose: 10 mg Documented by: Dextrose (D50w Syringe) 0 gm IV X1 PRN; Protocol PRN Reason: Hypoglycemia Diltiazem HCl (Cardizem Cd) 180 mg PO DAILY [facility] Last Admin: 07/06/19 08:34 Dose: 180 mg Documented by: Gabapentin (Neurontin) 100 mg PO TID [facility] Last Admin: 07/06/19 05:39 Dose: 100 mg Documented by: Glucagon () 1 mg IM .X1 PRN PRN Reason: Hypoglycemia Heparin Sodium (Porcine) (Heparin Na) 5,000 unit SC Q8 [facility] Last Admin: 07/06/19 05:39 Dose: 5,000 unit Documented by: Sodium Chloride () 1,000 mls @ 125 mls/hr IV .Q8H [facility] Last Infusion: 07/06/19 09:16 Dose: 125 mls/hr Documented by: Sodium Chloride () 250 mls @ 15 mls/hr IV .[id number] PRN PRN Reason: Additional IVPB Infusion Ceftriaxone Sodium 2 gm/ (Sodium Chloride) 50 mls @ 100 mls/hr IV Q24 [facility] Last Infusion: 07/06/19 09:16 Dose: Infused Documented by: Vancomycin IV Pharmacy to Dose (1 ea/ Sodium Chloride) 500 mls @ 250 mls/hr IV X1 PRN; Protocol PRN Reason: Rx to Dose Vancomycin HCl (Vancomycin) 1,000 mg in 200 mls @ 200 mls/hr IV Q24H [facility] Insulin Human Lispro (Humalog Kwikpen (Bkc)) 0 unit SC ACHS [facility]; Protocol Last Admin: 07/06/19 11:26 Dose: Not Given Documented by: Melatonin (Melatonin) 3 mg PO QHS PRN PRN PRN Reason: INSOMNIA Last Admin: 07/03/19 00:31 Dose: 3 mg Documented by: Nutritional Formula (Pancho - [place] Flavor) 1 packet PO BIDCM [facility] Last Admin: 07/06/19 08:25 Dose: Not Given Documented by: Ondansetron HCl (Zofran) 4 mg IV Q8H PRN PRN PRN Reason: NAUSEA/VOMITING Sodium Chloride () 10 - 40 ml IV UD PRN PRN Reason: SALINE FLUSH Medical Necessity - Tobacco Use Smoking Status: Current every day smoker Assessment/Plan All Active Problems (Last Reviewed 07/03/19 @ 01:[address] Darwin Lema MD) Cellulitis and abscess of left lower extremity (Acute) Cellulitis and abscess of right lower extremity (Acute) Osteomyelitis (Acute) Acute osteomyelitis involving ankle and foot (Acute) Diabetic foot ulcer associated with type 2 diabetes mellitus (Acute) Tobacco abuse counseling (Acute) Postoperative day #2 left ankle incision and drainage with arthrotomy She has a prior history of ankle fracture with serial infections, Charcot with multiple reconstructive surgeries with continued failure Diabetes with neuropathy Chronic kidney disease Walking difficulty Other comorbidities I reviewed and discussed her case. She is afebrile today and her white blood cell count is approximately 20 (increased). Clinically, there is no erythema, odor, or purulence. She has suspected osteomyelitis of the left ankle with history of multiple surgeries, history of Pseudomonas and MRSA infections. Initial cultures grew strep agalactiae. She has elevation in ESR and CRP as well. She is currently on ceftriaxone and vancomycin antibiotics. Infectious disease on consultation is greatly appreciated. We reviewed the salvageability of her limb and functional opportunity again today. An amputation treatment option was discussed and she is amendable to proceed at this time. Surgery consultation has been placed with Dr. Ray, and intervention is greatly appreciated. The timing of the procedure is to be determined. Her current condition is limb and life-threatening at this time and this will be considered during this coronavirus pandemic. A new dressing was applied today with Kerlix packing, gauze, abdominal pads, Lonnie wrap, and posterior mold splint applied in a padded manner. Saline irrigation was performed bedside. The left lower extremity was splinted in a rectus position and she was advised to maintain a nonweightbearing status. She understands her limb has no stability at the ankle level. Medical management and DVT prophylaxis per primary team is greatly appreciated. I answered her questions. It is noted she has seen multiple foot and ankle specialist in the past and she is advised to follow-up in outpatient setting for the contralateral right lower extremity after her left lower extremity amputation is performed in the near future. She has been traveling an extended distance to get to these appointments, and I also offered her to follow-up locally at the foot and ankle center if needed. Please do not hesitate to call if you have any questions. Nellie Quezada DPM, [facility] [phone]
[2019-07-06 15:00] VITALS: BP 132/62; PULSE 66; RESP 18; TEMP 36.8; O2SAT 97
[2019-07-06 17:10] LABS: Bedside Glucose 102 mg/dL (70-110)
[2019-07-06 21:00] VITALS: BP 145/68; PULSE 76; RESP 18; TEMP 37.4; O2SAT 100
[2019-07-06 22:06] LABS: Bedside Glucose 109 mg/dL (70-110)
[2019-07-07] MEDS: Acetaminophen 500 MG Tablet PO ×4 (00:18→18:28)
[2019-07-07 02:00] VITALS: BP 129/68; PULSE 83; RESP 18; TEMP 36.4; O2SAT 100
[2019-07-07 02:01] LABS: Bedside Glucose 109 mg/dL (70-110)
[2019-07-07] MEDS: 0.9% Normal Saline 1,000 ML 125 ML IV (03:15)
[2019-07-07] MEDS: Heparin Injection (Vial) 5,000 UNIT/ML VIAL 5000 UNIT SC ×3 (06:02→23:00)
[2019-07-07] MEDS: Gabapentin 100 MG Capsule PO ×3 (06:02→23:00)
[2019-07-07 07:00] LABS: Bedside Glucose 100 mg/dL (70-110)
[2019-07-07 07:11] LABS: Absolute Lymphocyte Count 1.99 X10^3/uL (0.83-4.51); Absolute Neutrophil Count 18.7 X10^3/uL (2.0-7.7); Basophil# 0.13 X10^3/uL; Basophil% 0.6 % (0-1); Eosinophil# 0.39 X10^3/uL; Eosinophils% 1.7 % (0-5); Hemoglobin 9.8 g/dL (12.0-15.0); Lymphocyte # 1.99 X10^3/ul (4.0); Lymphocyte % 8.5 % (19-41); Mean Corp Hgb Conc 30.6 g/dL (32-36); Mean Corpuscular Hgb 26.3 pg (27.0-32.0); Mean Platelet Vol. 10.6 fl (6.2-12.0); Monocyte# 1.64 X10^3/uL; NRBC Flagged by Analyzer 0 % (0-5); Neutrophil # 18.67 X10^3/uL (2.7-7.7); Neutrophil % 79.5 % (47-70); POSITIVE DIFFERENTIAL YES; Platelet Count 393 K/mm3 (150-450); RBC Distribution Width CV 17.6 % (11.6-14.6); RBC Distribution Width SD 54.5 fl (35.1-43.9); Red Blood Count 3.72 M/mm3 (4.2-5.4); White Blood Count 23.5 K/mm3 (4.4-11.0)
[2019-07-07 07:22] LABS: Differential Indicated SCAN CRITERIA MET
[2019-07-07 07:40] LABS: Differential Comment SCANNED
[2019-07-07 07:51] LABS: Anion Gap 9 (5-15); BUN 35 mg/dL (7-18); BUN/Creat Ratio 18.6 RATIO (10-20); Calcium,Total 9.1 mg/dL (8.5-10.1); Chloride 115 mmol/L (98-107); Creatinine, Serum 1.88 mg/dL (0.55-1.02); EST Glomerular Filtration Rate 29 mL/min (>60); Est Glom Filt Rate - Afr Amer 35 mL/min (>60); Estimated Creatinine Clearance 29.42 ml/min; Glucose 90 mg/dL (74-106); Potassium 3.9 mmol/L (3.5-5.1); Sodium Level 138 mmol/L (136-145)
[2019-07-07 09:15] VITALS: BP 111/61; PULSE 79; RESP 18; TEMP 37.2; O2SAT 100
[2019-07-07] MEDS: dilTIAZem CD 180 MG Capsule PO (09:32)
[2019-07-07] MEDS: Allopurinol 300 MG Tablet PO (09:32)
[2019-07-07] MEDS: Atenolol 50 MG Tablet PO (09:32)
[2019-07-07 10:52] LABS: Pathologist Review Reviewed
--- NOTE | 2019-07-07 11:27 | PCM.PN.HOSP ---
Patient Problems: Active and Suspected Problems (Last Reviewed 07/03/19 @ 01:[address] Darwin Lema MD) Cellulitis and abscess of left lower extremity (Acute) Osteomyelitis (Acute) Reason for Visit: LLE osteo Subjective: No fever/ chills. No SOB/cough. No n/v/d. No issues overnight. Pt agreeable to amputation. Vitals/I&O's: Vital Signs Temp Pulse Resp BP Pulse Ox 98.9 F 79 18 111/61 100 07/07/19 09:15 07/07/19 09:15 07/07/19 09:15 07/07/19 09:15 07/07/19 09:15 Oxygen Delivery Method Room Air Weight: 213 lb 4.791 oz Body Mass Index (BMI) 34.4 Finger Stick Blood Glucose 163 Intake and Output for Last 24 Hours 07/05/19 07/06/19 07/07/19 23:59 23:59 23:59 Intake Total 4837.92 / 4837.92 2690.00 / 3190.00 2479.17 / 2479.17 Output Total 4550 / 4550 2325 / 2325 Balance 287.92 / 287.92 2690.00 / 1940.00 154.17 / 154.17 General: Alert, Oriented x3, Cooperative HEENT: Atraumatic, PERRLA, EOMI, Normocephalic Neck: Supple, No JVD, Negative Carotid Bruits Lungs: Clear to auscultation, Normal air movement Cardiovascular: Regular rate, No murmurs Abdomen: Bowel Sounds Present, Soft, Non Tender Extremities: No edema, Capillary Refill Less than 3 Seconds Skin: No rashes, No breakdown Musculoskeletal: No Tenderness to Palpation of Joints or Extremities Neurological: Cranial nerves II-XII grossly intact Psych/Mental Status: Normal Affect, Appropriate, Alert and oriented to time, place, person, mood and affect Microbiology Past 72 Hours 07/04/19 08:25 Bone - Other Gram Stain - Final 07/04/19 08:25 Bone - Other Wound Culture - Final Streptococcus agalactiae (B) Kocuria kristinae 07/04/19 08:25 Bone - Other Anaerobic Culture - Final No anaerobic bacteria isolated. 07/02/19 22:01 Wound - Ankle Gram Stain - Final 07/02/19 22:01 Wound - Ankle Wound Culture - Final Streptococcus agalactiae (B) 07/02/19 22:01 Wound - Ankle Anaerobic Culture - Final No anaerobic bacteria isolated. Laboratory Results 07/06/19 11:25: POC Glucose 121 H 07/06/19 17:07: POC Glucose 102 07/06/19 21:57: POC Glucose 109 07/07/19 01:55: POC Glucose 109 07/07/19 06:24: WBC 23.5 H, RBC 3.72 L, Hgb 9.8 L, Hct 32.0 L, MCV 86.0, MCH 26.3 L, MCHC 30.6 L, RDW Std Deviation 54.5 H, RDW Coeff of Racheal 17.6 H, Plt Count 393, MPV 10.6, Immature Gran % (Auto) 2.700 H, Neut % (Auto) 79.5 H, Lymph % (Auto) 8.5 L, [place] % (Auto) 7.0, Eos % (Auto) 1.7, Baso % (Auto) 0.6, Absolute Neuts (auto) 18.7 H, Absolute Lymphs (auto) 1.99, Nucleated RBC % 0, Differential Comment SCANNED, Diff Path Review Reviewed 07/07/19 06:24: Sodium 138, Potassium 3.9, Chloride 115 H, Carbon Dioxide 14.0 L, Anion Gap 9, BUN 35 H, Creatinine 1.88 H, Estim Creat Clear Calc 29.42, Est GFR (MDRD) Af Amer 35 L, Est GFR (MDRD) Non-Af 29 L, BUN/Creatinine Ratio 18.6, Glucose 90, Calcium 9.1 07/07/19 06:46: POC Glucose 100 Current Medications Acetaminophen (Tylenol) 500 mg PO Q6 [facility] Last Admin: 07/07/19 06:02 Dose: 500 mg Documented by: [facility]) [facility] Last Admin: 07/07/19 09:32 Dose: 300 mg Documented by: Atenolol (Tenormin (Beta Jona)) 50 mg PO DAILY [facility] Last Admin: 07/07/19 09:32 Dose: 50 mg Documented by: Cyclobenzaprine HCl (Flexeril) 10 mg PO TID PRN PRN PRN Reason: muscle spasm Last Admin: 07/03/19 21:20 Dose: 10 mg Documented by: Dextrose (D50w Syringe) 0 gm IV X1 PRN; Protocol PRN Reason: Hypoglycemia Diltiazem HCl (Cardizem Cd) 180 mg PO DAILY [facility] Last Admin: 07/07/19 09:32 Dose: 180 mg Documented by: Gabapentin (Neurontin) 100 mg PO TID [facility] Last Admin: 07/07/19 06:02 Dose: 100 mg Documented by: Glucagon () 1 mg IM .X1 PRN PRN Reason: Hypoglycemia Heparin Sodium (Porcine) (Heparin Na) 5,000 unit SC Q8 [facility] Last Admin: 07/07/19 06:02 Dose: 5,000 unit Documented by: Sodium Chloride () 1,000 mls @ 125 mls/hr IV .Q8H [facility] Last Infusion: 07/07/19 10:02 Dose: 125 mls/hr Documented by: Sodium Chloride () 250 mls @ 15 mls/hr IV .[id number] PRN PRN Reason: Additional IVPB Infusion Ceftriaxone Sodium 2 gm/ (Sodium Chloride) 50 mls @ 100 mls/hr IV Q24 [facility] Last Infusion: 07/07/19 10:02 Dose: Infused Documented by: Vancomycin IV Pharmacy to Dose (1 ea/ Sodium Chloride) 500 mls @ 250 mls/hr IV X1 PRN; Protocol PRN Reason: Rx to Dose Vancomycin HCl (Vancomycin) 1,000 mg in 200 mls @ 200 mls/hr IV Q24H [facility] Insulin Human Lispro (Humalog Kwikpen (Bkc)) 0 unit SC ACHS [facility]; Protocol Last Admin: 07/07/19 06:56 Dose: Not Given Documented by: Melatonin (Melatonin) 3 mg PO QHS PRN PRN PRN Reason: INSOMNIA Last Admin: 07/03/19 00:31 Dose: 3 mg Documented by: Nutritional Formula (Pancho - [place] Flavor) 1 packet PO BIDCM [facility] Last Admin: 07/07/19 09:31 Dose: Not Given Documented by: Ondansetron HCl (Zofran) 4 mg IV Q8H PRN PRN PRN Reason: NAUSEA/VOMITING Sodium Chloride () 10 - 40 ml IV UD PRN PRN Reason: SALINE FLUSH STROKE Vital Signs/Narrative: Vital Signs Temp Pulse Resp BP Pulse Ox 07/07/19 09:15 98.9 F 79 18 111/61 100 Medical Necessity - Tobacco Use Smoking Status: Current every day smoker Assessment/Plan All Active Problems (Last Reviewed 07/03/19 @ 01:[address] Darwin Lema MD) Cutaneous abscess of left ankle (Acute) Cellulitis and abscess of left lower extremity (Acute) Cellulitis and abscess of right lower extremity (Acute) Osteomyelitis (Acute) Acute osteomyelitis involving ankle and foot (Acute) Diabetic foot ulcer associated with type 2 diabetes mellitus (Acute) Tobacco abuse counseling (Acute) 1. Osteomyelitis Left ankle - WBC increased. Vanco/Rocephin. Wound also with Strep. ID following. Dr. Ray and Dr. Quezada following for surgical needs. S/P I&D POD#3. Amputation recommended, pt agreeable. Cultures with Strep agalactiae and Kocuria kristinae 2. Chronic normocytic anemia - improved without transfusion. trend. 3. Hyperkalemia - resolved. 4. JOEY on CKD IV - stable. Follows [facility] as o/p. DC IV fluids. 5. DMt2 - diet controlled only at home. a1c 6.5 c/w T2DM, pt would benefit from more aggressive glucose control given her repeated osteomyelitis and CKD. 6. hx gout - allopurinol continued. 7. HTN - macario held, atenolol. 8. Nicotine abuse - pt declines patch. She needs complete cessation given #1. DVT ppx: heparin DC planning: PTOT. Amputation planned for later this week. This patient was seen by Cuco Webber PA-C under the supervision of Dr. Brunson
[2019-07-07] MEDS: Vancomycin IV 1,000 MG/200 ML BAG 200 MG IV (11:55)
[2019-07-07 12:20] LABS: Bedside Glucose 126 mg/dL (70-110)
--- NOTE | 2019-07-07 13:24 | PCM.PN.ID ---
Patient Problems: Active and Suspected Problems (Last Reviewed 07/03/19 @ 01:[address] Darwin Lema MD) Osteomyelitis (Acute) Subjective: No fever, OR planned for Friday, no n/v/d. - Physical Exam Vitals/I&O's: Vital Signs Temp Pulse Resp BP Pulse Ox 98.9 F 79 18 111/61 100 07/07/19 09:15 07/07/19 09:15 07/07/19 09:15 07/07/19 09:15 07/07/19 09:15 Oxygen Delivery Method Room Air Weight: 96.751 kg Body Mass Index (BMI) 34.4 Finger Stick Blood Glucose 163 Intake and Output for Last 24 Hours 07/05/19 07/06/19 07/07/19 23:59 23:59 23:59 Intake Total 4837.92 / 4837.92 2690.00 / 3190.00 2681.25 / 2681.25 Output Total 4550 / 4550 2325 / 2325 Balance 287.92 / 287.92 2690.00 / 1940.00 356.25 / 356.25 General: Alert, Cooperative, No apparent distress Lungs: Clear to auscultation, Normal air movement Cardiovascular: Regular rate, Regular Rhythm Abdomen: Soft, Non Tender, Non-Distended Skin: Ulcer/ Wound - foot wrapped Microbiology Past 72 Hours 07/04/19 08:25 Bone - Other Gram Stain - Final 07/04/19 08:25 Bone - Other Wound Culture - Final Streptococcus agalactiae (B) Dinoa frenchae 07/04/19 08:25 Bone - Other Anaerobic Culture - Final No anaerobic bacteria isolated. 07/02/19 22:01 Wound - Ankle Gram Stain - Final 07/02/19 22:01 Wound - Ankle Wound Culture - Final Streptococcus agalactiae (B) 07/02/19 22:01 Wound - Ankle Anaerobic Culture - Final No anaerobic bacteria isolated. Laboratory Results 07/06/19 17:07: POC Glucose 102 07/06/19 21:57: POC Glucose 109 07/07/19 01:55: POC Glucose 109 07/07/19 06:24: WBC 23.5 H, RBC 3.72 L, Hgb 9.8 L, Hct 32.0 L, MCV 86.0, MCH 26.3 L, MCHC 30.6 L, RDW Std Deviation 54.5 H, RDW Coeff of Racheal 17.6 H, Plt Count 393, MPV 10.6, Immature Gran % (Auto) 2.700 H, Neut % (Auto) 79.5 H, Lymph % (Auto) 8.5 L, [place] % (Auto) 7.0, Eos % (Auto) 1.7, Baso % (Auto) 0.6, Absolute Neuts (auto) 18.7 H, Absolute Lymphs (auto) 1.99, Nucleated RBC % 0, Differential Comment SCANNED, Diff Path Review Reviewed 07/07/19 06:24: Sodium 138, Potassium 3.9, Chloride 115 H, Carbon Dioxide 14.0 L, Anion Gap 9, BUN 35 H, Creatinine 1.88 H, Estim Creat Clear Calc 29.42, Est GFR (MDRD) Af Amer 35 L, Est GFR (MDRD) Non-Af 29 L, BUN/Creatinine Ratio 18.6, Glucose 90, Calcium 9.1 07/07/19 06:46: POC Glucose 100 07/07/19 12:04: POC Glucose 126 H Current Medications Acetaminophen (Tylenol) 500 mg PO Q6 [facility] Last Admin: 07/07/19 12:10 Dose: 500 mg Documented by: [facility] Last Admin: 07/07/19 09:32 Dose: 300 mg Documented by: Atenolol (Tenormin (Beta Jona)) 50 mg PO DAILY [facility] Last Admin: 07/07/19 09:32 Dose: 50 mg Documented by: Cyclobenzaprine HCl (Flexeril) 10 mg PO TID PRN PRN PRN Reason: muscle spasm Last Admin: 07/03/19 21:20 Dose: 10 mg Documented by: Dextrose (D50w Syringe) 0 gm IV X1 PRN; Protocol PRN Reason: Hypoglycemia Diltiazem HCl (Cardizem Cd) 180 mg PO DAILY [facility] Last Admin: 07/07/19 09:32 Dose: 180 mg Documented by: Gabapentin (Neurontin) 100 mg PO TID [facility] Last Admin: 07/07/19 06:02 Dose: 100 mg Documented by: Glucagon () 1 mg IM .X1 PRN PRN Reason: Hypoglycemia Heparin Sodium (Porcine) (Heparin Na) 5,000 unit SC Q8 [facility] Last Admin: 07/07/19 06:02 Dose: 5,000 unit Documented by: Sodium Chloride () 250 mls @ 15 mls/hr IV .[id number] PRN PRN Reason: Additional IVPB Infusion Ceftriaxone Sodium 2 gm/ (Sodium Chloride) 50 mls @ 100 mls/hr IV Q24 [facility] Last Infusion: 07/07/19 10:02 Dose: Infused Documented by: Vancomycin IV Pharmacy to Dose (1 ea/ Sodium Chloride) 500 mls @ 250 mls/hr IV X1 PRN; Protocol PRN Reason: Rx to Dose Vancomycin HCl (Vancomycin) 1,000 mg in 200 mls @ 200 mls/hr IV Q24H [facility] Last Admin: 07/07/19 11:55 Dose: 200 mls/hr Documented by: Insulin Human Lispro (Humalog Kwikpen (Bkc)) 0 unit SC ACHS [facility]; Protocol Last Admin: 07/07/19 12:06 Dose: Not Given Documented by: Lactobacillus Acidophilus (Acidophilus) 1 tablet PO TID [facility] Melatonin (Melatonin) 3 mg PO QHS PRN PRN PRN Reason: INSOMNIA Last Admin: 07/03/19 00:31 Dose: 3 mg Documented by: Miconazole Nitrate (Monistat 7) 1 applic VAGINAL QHS [facility] Nutritional Formula (Pancho - [place] Flavor) 1 packet PO BIDCM [facility] Last Admin: 07/07/19 09:31 Dose: Not Given Documented by: Ondansetron HCl (Zofran) 4 mg IV Q8H PRN PRN PRN Reason: NAUSEA/VOMITING Sodium Chloride () 10 - 40 ml IV UD PRN PRN Reason: SALINE FLUSH Medical Necessity - Tobacco Use Smoking Status: Current every day smoker Route of nutrition/ use of supplements: [] Nutritional Intake: [] IV Site: [] Gardner Catheter: [] - Assessment/Plan Antibiotics: [] Assessment/Plan: [] Active and Suspected Problems (Last Reviewed 07/03/19 @ 01:[address] Darwin Lema MD) Cellulitis and abscess of right lower extremity (Acute) Osteomyelitis (Acute) LLE osteo - prior cxs with MRSA and PsA. Now cxs showing GBS and staph. Taken to OR for I&D by Dr. Weldon. Counseled her that amputation would be her best chance of cure and regaining some mobility. Wbc increasing. Recommend amputation, she is now agreeable. Cont ceftriaxone, added vanc. Will follow.
[2019-07-07 15:10] VITALS: BP 132/67; PULSE 68; RESP 18; TEMP 36.9; O2SAT 98
[2019-07-07 18:35] LABS: Bedside Glucose 124 mg/dL (70-110)
[2019-07-07 19:59] VITALS: BP 147/69; PULSE 80; RESP 20; TEMP 37.7; O2SAT 99
[2019-07-07 23:20] LABS: Bedside Glucose 107 mg/dL (70-110)
[2019-07-08] MEDS: Acetaminophen 500 MG Tablet PO ×4 (00:14→19:19)
[2019-07-08 03:50] VITALS: BP 125/69; PULSE 69; RESP 18; TEMP 36.6; O2SAT 99
[2019-07-08] MEDS: Gabapentin 100 MG Capsule PO ×3 (06:10→21:21)
[2019-07-08] MEDS: Heparin Injection (Vial) 5,000 UNIT/ML VIAL 5000 UNIT SC ×3 (06:10→21:21)
[2019-07-08 06:19] LABS: Absolute Lymphocyte Count 1.92 X10^3/uL (0.83-4.51); Absolute Neutrophil Count 17.7 X10^3/uL (2.0-7.7); Basophil# 0.09 X10^3/uL; Basophil% 0.4 % (0-1); Eosinophils% 2.2 % (0-5); Hemoglobin 8.2 g/dL (12.0-15.0); Lymphocyte # 1.92 X10^3/ul (4.0); Lymphocyte % 8.5 % (19-41); Mean Corp Hgb Conc 30.4 g/dL (32-36); Mean Corpuscular Hgb 25.3 pg (27.0-32.0); Mean Corpuscular Volume 83.3 fL (81-99); Mean Platelet Vol. 8.9 fl (6.2-12.0); Monocyte# 1.75 X10^3/uL; Monocyte% 7.8 % (0-10); NRBC Flagged by Analyzer 0.1 % (0-5); Neutrophil # 17.69 X10^3/uL (2.7-7.7); Neutrophil % 78.3 % (47-70); POSITIVE DIFFERENTIAL YES; Platelet Count 472 K/mm3 (150-450); RBC Distribution Width CV 17.5 % (11.6-14.6); RBC Distribution Width SD 52.9 fl (35.1-43.9); Red Blood Count 3.24 M/mm3 (4.2-5.4); White Blood Count 22.6 K/mm3 (4.4-11.0)
[2019-07-08 06:27] LABS: Differential Indicated SCAN CRITERIA MET
[2019-07-08 06:50] LABS: Bedside Glucose 116 mg/dL (70-110)
[2019-07-08 06:51] LABS: Anion Gap 14 (5-15); BUN 32 mg/dL (7-18); BUN/Creat Ratio 16.9 RATIO (10-20); Calcium,Total 8.6 mg/dL (8.5-10.1); Chloride 108 mmol/L (98-107); Creatinine, Serum 1.89 mg/dL (0.55-1.02); EST Glomerular Filtration Rate 29 mL/min (>60); Est Glom Filt Rate - Afr Amer 35 mL/min (>60); Estimated Creatinine Clearance 29.26 ml/min; Glucose 104 mg/dL (74-106); Potassium 3.5 mmol/L (3.5-5.1); Sodium Level 137 mmol/L (136-145)
[2019-07-08] MEDS: Allopurinol 300 MG Tablet PO (08:04)
--- NOTE | 2019-07-08 08:53 | PCA ---
Patient states that she will schedule apts herself.
[2019-07-08 10:28] LABS: Pathologist Review Reviewed
[2019-07-08] MEDS: dilTIAZem CD 180 MG Capsule PO (11:16)
[2019-07-08] MEDS: Atenolol 50 MG Tablet PO (11:16)
[2019-07-08 11:19] VITALS: BP 134/67; PULSE 80; RESP 20; TEMP 37.1; O2SAT 100
[2019-07-08 11:30] LABS: Vancomycin, Trough Level 22.4 ug/mL (5.0-15.0)
--- NOTE | 2019-07-08 11:44 | PCM.RX.CS ---
Consult Pharmacy has been consulted to manage selected antiobiotic: Vancomycin Type of Consult: Follow-up Labs: Sodium 137 mmol/L (136-145) 07/08/19 05:41 Potassium 3.5 mmol/L (3.5-5.1) 07/08/19 05:41 Chloride 108 mmol/L (98-107) H 07/08/19 05:41 Carbon Dioxide 15.0 mmol/L (21.0-32.0) L 07/08/19 05:41 Anion Gap 14 (5-15) 07/08/19 05:41 BUN 32 mg/dL (7-18) H 07/08/19 05:41 Creatinine 1.89 mg/dL (0.55-1.02) H 07/08/19 05:41 Est GFR (MDRD) Af Amer 35 mL/min (>60) L 07/08/19 05:41 Est GFR (MDRD) Non-Af 29 mL/min (>60) L 07/08/19 05:41 BUN/Creatinine Ratio 16.9 RATIO (10-20) 07/08/19 05:41 Glucose 104 mg/dL (74-106) 07/08/19 05:41 Vancomycin Trough 22.4 ug/mL (5.0-15.0) H 07/08/19 10:30 Random Vancomycin 11.5 ug/mL (0.0-15.0) 07/04/19 05:30 Microbiology: Microbiology 07/04/19 08:25 Bone - Other Gram Stain - Final 07/04/19 08:25 Bone - Other Wound Culture - Final Streptococcus agalactiae (B) Kobrodyria kristinae 07/04/19 08:25 Bone - Other Anaerobic Culture - Final No anaerobic bacteria isolated. 07/02/19 22:01 Wound - Ankle Gram Stain - Final 07/02/19 22:01 Wound - Ankle Wound Culture - Final Streptococcus agalactiae (B) 07/02/19 22:01 Wound - Ankle Anaerobic Culture - Final No anaerobic bacteria isolated. Goal Trough: 15-20 mcg/mL Pharmacy Plan for Drug Dosing: The patient had a vancomycin trough drawn which resulted in a value of 22.4 (drawn ~23hrs from last administered dose). The patient's current trough goal is 15-20. Since the trough is elevated, vancomycin was discontinued, and will order a random level with AM labs on 07/09/19. Today's dose has not been administered, and order was cancelled prior to administration. PLAN/RECOMMENDATIONS 1. HOLD vancomycin due to elevated trough value. 2. Random trough level ordered 07/09/19 with AM labs to assess value/ dosing at that time 3. Pharmacy Service will continue to monitor and adjust dosing as required.
[2019-07-08 11:55] LABS: Bedside Glucose 129 mg/dL (70-110)
--- NOTE | 2019-07-08 12:44 | PN_ITS ---
Patient Problems: Active and Suspected Problems (Last Reviewed 07/03/19 @ 01:[address] Darwin Lema MD) Osteomyelitis (Acute) Subjective: Patient seen and examined. Denies significant pain beyond her normal aches and pains. Patient reports increased stress related to upcoming left below the knee amputation and also reports her son is in a mental health facility which she is tearful about. She denies fever, chills. - Physical Exam Vitals/I&O's: Vital Signs Temp Pulse Resp BP Pulse Ox 98.7 F 80 20 H 134/67 H 100 07/08/19 11:19 07/08/19 11:19 07/08/19 11:19 07/08/19 11:19 07/08/19 11:19 Oxygen Delivery Method Room Air Weight: 213 lb 4.791 oz Body Mass Index (BMI) 34.4 Finger Stick Blood Glucose 163 Intake and Output for Last 24 Hours 07/06/19 07/07/19 07/08/19 23:59 23:59 23:59 Intake Total 2690.00 / 3190.00 4131.25 / 4131.25 240 / 240 Output Total 3225 / 3225 850 / 850 Balance 2690.00 / 1940.00 906.25 / 906.25 -610 / -610 General: Alert, Oriented x3, Cooperative HEENT: Atraumatic, PERRLA, EOMI, Normocephalic Neck: Supple, No JVD, Negative Carotid Bruits Lungs: Clear to auscultation, Normal air movement Cardiovascular: Regular rate, Regular Rhythm, Normal S1, Normal S2, No murmurs Abdomen: Bowel Sounds Present, Soft, Non Tender, Non-Distended Extremities: No clubbing, No cyanosis Skin: No rashes, No breakdown, - - Left ankle surgical wound, dressing intact. Musculoskeletal: No Tenderness to Palpation of Joints or Extremities Neurological: Cranial nerves II-XII grossly intact, Neuro grossly intact Psych/Mental Status: Normal Affect, Appropriate Microbiology Past 72 Hours 07/04/19 08:25 Bone - Other Gram Stain - Final 07/04/19 08:25 Bone - Other Wound Culture - Final Streptococcus agalactiae (B) Kocuria kristinae 07/04/19 08:25 Bone - Other Anaerobic Culture - Final No anaerobic bacteria isolated. Laboratory Results 07/07/19 18:25: POC Glucose 124 H 07/07/19 22:59: POC Glucose 107 07/08/19 05:41: WBC 22.6 H, RBC 3.24 L, Hgb 8.2 L, Hct 27.0 L, MCV 83.3, MCH 25.3 L, MCHC 30.4 L, RDW Std Deviation 52.9 H, RDW Coeff of Racheal 17.5 H, Plt Count 472 H, MPV 8.9, Immature Gran % (Auto) 2.800 H, Neut % (Auto) 78.3 H, Lymph % (Auto) 8.5 L, [place] % (Auto) 7.8, Eos % (Auto) 2.2, Baso % (Auto) 0.4, Absolute Neuts (auto) 17.7 H, Absolute Lymphs (auto) 1.92, Nucleated RBC % 0.1, Differential Comment COMMENT, Diff Path Review Reviewed 07/08/19 05:41: Sodium 137, Potassium 3.5, Chloride 108 H, Carbon Dioxide 15.0 L , Anion Gap 14, BUN 32 H, Creatinine 1.89 H, Estim Creat Clear Calc 29.26, Est GFR (MDRD) Af Amer 35 L, Est GFR (MDRD) Non-Af 29 L, BUN/Creatinine Ratio 16.9, Glucose 104, Calcium 8.6 07/08/19 06:37: POC Glucose 116 H 07/08/19 10:30: Vancomycin Trough 22.4 H 07/08/19 11:33: POC Glucose 129 H Current Medications Acetaminophen (Tylenol) 500 mg PO Q6 [facility] Last Admin: 07/08/19 06:11 Dose: 500 mg Documented by: [facility] Admin: 07/08/19 08:04 Dose: 300 mg Documented by: Atenolol (Tenormin (Beta Jona)) 50 mg PO DAILY [facility] Last Admin: 07/08/19 11:16 Dose: 50 mg Documented by: Cyclobenzaprine HCl (Flexeril) 10 mg PO TID PRN PRN PRN Reason: muscle spasm Last Admin: 07/03/19 21:20 Dose: 10 mg Documented by: Dextrose (D50w Syringe) 0 gm IV X1 PRN; Protocol PRN Reason: Hypoglycemia Diltiazem HCl (Cardizem Cd) 180 mg PO DAILY [facility] Last Admin: 07/08/19 11:16 Dose: 180 mg Documented by: Gabapentin (Neurontin) 100 mg PO TID [facility] Last Admin: 07/08/19 06:10 Dose: 100 mg Documented by: Glucagon () 1 mg IM .X1 PRN PRN Reason: Hypoglycemia Heparin Sodium (Porcine) (Heparin Na) 5,000 unit SC Q8 [facility] Last Admin: 07/08/19 06:10 Dose: 5,000 unit Documented by: Sodium Chloride () 250 mls @ 15 mls/hr IV .[id number] PRN PRN Reason: Additional IVPB Infusion Ceftriaxone Sodium 2 gm/ (Sodium Chloride) 50 mls @ 100 mls/hr IV Q24 [facility] Last Admin: 07/08/19 11:16 Dose: 100 mls/hr Documented by: Vancomycin IV Pharmacy to Dose (1 ea/ Sodium Chloride) 500 mls @ 250 mls/hr IV X1 PRN; Protocol PRN Reason: Rx to Dose Insulin Human Lispro (Humalog Kwikpen (Bkc)) 0 unit SC ACHS [facility]; Protocol Last Admin: 07/08/19 11:35 Dose: Not Given Documented by: Lactobacillus Acidophilus (Acidophilus) 1 tablet PO TID [facility] Last Admin: 07/08/19 06:10 Dose: 1 tablet Documented by: Melatonin (Melatonin) 3 mg PO QHS PRN PRN PRN Reason: INSOMNIA Last Admin: 07/03/19 00:31 Dose: 3 mg Documented by: Miconazole Nitrate (Monistat 7) 1 applic VAGINAL QHS [facility] Last Admin: 07/07/19 23:25 Dose: Not Given Documented by: Nutritional Formula (Pancho - [place] Flavor) 1 packet PO BIDCM [facility] Last Admin: 07/08/19 08:05 Dose: 1 packet Documented by: Ondansetron HCl (Zofran) 4 mg IV Q8H PRN PRN PRN Reason: NAUSEA/VOMITING Sodium Chloride () 10 - 40 ml IV UD PRN PRN Reason: SALINE FLUSH Medical Necessity - Tobacco Use Smoking Status: Current every day smoker Assessment/Plan All Active Problems (Last Reviewed 07/03/19 @ 01:[address] Darwin Lema MD) Cutaneous abscess of left ankle (Acute) Cellulitis and abscess of left lower extremity (Acute) Cellulitis and abscess of right lower extremity (Acute) Osteomyelitis (Acute) Acute osteomyelitis involving ankle and foot (Acute) Diabetic foot ulcer associated with type 2 diabetes mellitus (Acute) Tobacco abuse counseling (Acute) 1. Left ankle osteomyelitis, recurrent infections-status post I&D left ankle 07/04/2019. Cultures growing Streptococcus agalactiae and kocuria kristinae. Infectious disease, podiatry and plastics following. History of multiple infections in the past with MRSA, Pseudomonas. Patient has been wheelchair- bound due to unstable floppy ankle with previous removal of hardware October 2018. Patient will undergo left below the knee amputation by Dr. Ray 07/09/2019. Continue IV vancomycin and IV Rocephin. 2. Chronic normocytic anemia-stable, trend CBC. 3. Acute kidney injury on chronic kidney disease stage IV-acute kidney injury resolved. Continue outpatient follow-up with nephrology. 4. Type 2 diabetes mellitus-diet controlled at home. Hemoglobin A1c 6.5%. Accu-Cheks with sliding scale insulin. 5. History of gout-continue allopurinol. 6. Hypertension-continue atenolol, cardizem. MIGUEL inhibitor on hold. 7. Tobacco dependence- encouraged cessation. DVT prophylaxis- heparin sc This patient was seen by ELIAS Delgado under the supervision of Dr. Brunson.
[2019-07-08 15:32] VITALS: BP 139/67; PULSE 78; RESP 18; TEMP 37; O2SAT 100
[2019-07-08 16:50] LABS: Bedside Glucose 115 mg/dL (70-110)
[2019-07-08 21:25] VITALS: BP 134/72; PULSE 77; RESP 14; TEMP 37.7; O2SAT 98
[2019-07-08 21:40] LABS: Bedside Glucose 146 mg/dL (70-110)
[2019-07-09] VITALS (18 sets, daily range): BP systolic 91–158; BP diastolic 52–114; PULSE 59–90; RESP 16–18; TEMP 35.3–37.3; O2SAT 10–100; BMI 34.4
--- NOTE | 2019-07-09 | MISC_PTH ---
PATIENT: ALEAH BARKER LOC: [facility] U#:[id number] AGE/SX: 59/F ROOM: [facility] RE07/02/[address]: Dr. Stephanie Roland MD : 1960 BED: 1 DIS: 07/14/2019 SPEC #: [id number] RECD: 07/12/19 12:03 STATUS: [place] REQ #: [id number] ELIAS: 07/09/19 00:[address]: Tony Ray DEPT: SURGICAL PATHOLOGY RECD BY: Demetrius Sparks ENTERED: 07/12/19 12:03 SP TYPE: MISC OTHR DR: MD Dr. Pia Ribera MD Dr. Joseph Agyepong, MD Dr. James A Slaby, MD Dr. Jeffrey Wunning, DPM Dr. Shimon Bejarano MD Tissues: A - Leg, NOS B - Tibia, NOS Procedures: Decalcification bone/plaque Surgery Specimen Level IV Surgery Specimen Level V Comments: @ Ordering doctor for DEC edited from to @ by MARILEE at 07/13/19904 @ Ordering doctor for SUIV edited from to @ bridget HUNT at 07/13/19 09 @ Submitting doctor edited from to DR.JSLABY Meena HUNT at 07/13/19904 HEADER OPERATION: Amputation below knee PRE-OP DIAGNOSIS: Nonhealing infected diabetic ulcer left ankle; osteomyelitis; MRSA; pseudomonas TISSUE SUBMITTED: A - Left below knee amputation, B - Bone from left tibia/fibula MICROSCOPIC DIAGNOSIS A. Left leg, below the knee amputation: Skin and soft tissue with ulceration and associated acute and chronic inflammation and granulation. Bone with acute osteomyelitis. Dorsal pedis artery with calcific atherosclerotic plaque. Skin, bone and soft tissue of margin of resection with no significant pathologic change. B. Bone from left tibia/fibula, biopsy: Trilineage hematopoiesis. No evidence of acute osteomyelitis. AM:jason 07/15/19 COMMENT Case has been reviewed in consultation with Dr. Holloway who concurs with the above diagnosis. IDC:JOSE LUIS MICROSCOPIC DESCRIPTION Slides are reviewed. GROSS DESCRIPTION A - Received in a biohazard bag labeled with the patient's name and designated left below knee amputation. The specimen consists of a below knee amputation of the left lower extremity. The leg measures from heel to posterior cutaneous soft tissue resection margin 19 cm. The posterior cutaneous soft tissue resection margin is 11 cm below the resection margin of the bone. The resection margin appears unremarkable. Two areas of ulceration are noted at the ankle measuring 7 and 2 cm in length. The skin surface on the dorsal surface of the foot shows brownish discoloration. All four toes are present and nails appear focally atrophic. Anterior tibial, partial tibial and dorsalis pedis are dissected. Tibia and fibula bones are discontinuous underneath the ulcerated area consistent with site of specimen B. Construction Economist sections are submitted as follows: 1 - resection margin, skin and soft tissue, 2?&?3??ulcerated area, 4 - dorsalis pedis vessel, 5 - anterior tibial vessel, 6 - posterior tibial vessel, 7??bone underlying the ulcerated area 8 - bone at the resection margin. Cassettes 7 & 8 are submitted after decalcification. B - Received in fixative is one container labeled with the patient's name and designated bone from left tibia/fibula. The specimen consists of multiple fragments of bone that in aggregate measure 3 x 3 x 0.5 cm. The entire specimen is submitted in two cassettes after decalcification. / SJ:jason 07/12/19 TC:2 CPT: 31084, 78941, 78594 x2
[2019-07-09 05:46] LABS: Hematocrit 25.2 % (37-47); Hemoglobin 7.9 g/dL (12.0-15.0); Mean Corp Hgb Conc 31.3 g/dL (32-36); Mean Corpuscular Hgb 26.3 pg (27.0-32.0); Platelet Count 430 K/mm3 (150-450); RBC Distribution Width CV 17.8 % (11.6-14.6); White Blood Count 23.2 K/mm3 (4.4-11.0)
[2019-07-09 05:54] LABS: International Normalized Ratio 1.2; Prothrombin Time (Protime)PT. 14.6 SECONDS (11.7-14.9)
[2019-07-09 05:55] LABS: Partial Thromboplast Time 37.6 Seconds (24.1-36.2)
[2019-07-09 06:10] LABS: Anion Gap 10 (5-15); BUN 42 mg/dL (7-18); BUN/Creat Ratio 20.7 RATIO (10-20); Chloride 110 mmol/L (98-107); Creatinine, Serum 2.03 mg/dL (0.55-1.02); EST Glomerular Filtration Rate 26 mL/min (>60); Est Glom Filt Rate - Afr Amer 32 mL/min (>60); Estimated Creatinine Clearance 27.24 ml/min; Glucose 119 mg/dL (74-106); Potassium 3.6 mmol/L (3.5-5.1); Sodium Level 136 mmol/L (136-145)
[2019-07-09 06:21] LABS: Vancomycin, Random Level 18.2 ug/mL (0.0-15.0)
[2019-07-09] MEDS: Acetaminophen 500 MG Tablet PO ×3 (06:42→23:30)
[2019-07-09] MEDS: Gabapentin 100 MG Capsule PO (06:42)
[2019-07-09] MEDS: dilTIAZem CD 180 MG Capsule PO (07:54)
[2019-07-09] MEDS: Atenolol 50 MG Tablet PO (07:54)
--- NOTE | 2019-07-09 08:30 | PCM.RX.CS ---
Consult Pharmacy has been consulted to manage selected antiobiotic: Vancomycin Type of Consult: Follow-up Suspected Infection: Osteomyelitis Labs: Sodium 136 mmol/L (136-145) 07/09/19 05:25 Potassium 3.6 mmol/L (3.5-5.1) 07/09/19 05:25 Chloride 110 mmol/L (98-107) H 07/09/19 05:25 Carbon Dioxide 16.0 mmol/L (21.0-32.0) L 07/09/19 05:25 Anion Gap 10 (5-15) 07/09/19 05:25 BUN 42 mg/dL (7-18) H 07/09/19 05:25 Creatinine 2.03 mg/dL (0.55-1.02) H 07/09/19 05:25 Est GFR (MDRD) Af Amer 32 mL/min (>60) L 07/09/19 05:25 Est GFR (MDRD) Non-Af 26 mL/min (>60) L 07/09/19 05:25 BUN/Creatinine Ratio 20.7 RATIO (10-20) H 07/09/19 05:25 Glucose 119 mg/dL (74-106) H 07/09/19 05:25 Vancomycin Trough 22.4 ug/mL (5.0-15.0) H 07/08/19 10:30 Random Vancomycin 18.2 ug/mL (0.0-15.0) H 07/09/19 05:25 Microbiology: Microbiology 07/04/19 08:25 Bone - Other Gram Stain - Final 07/04/19 08:25 Bone - Other Wound Culture - Final Streptococcus agalactiae (B) Kocuria kristinae 07/04/19 08:25 Bone - Other Anaerobic Culture - Final No anaerobic bacteria isolated. 07/02/19 22:01 Wound - Ankle Gram Stain - Final 07/02/19 22:01 Wound - Ankle Wound Culture - Final Streptococcus agalactiae (B) 07/02/19 22:01 Wound - Ankle Anaerobic Culture - Final No anaerobic bacteria isolated. Weight used for dosin kg Goal Trough: 15-20 mcg/mL Pharmacy Plan for Drug Dosing: Pt's random level resulted at 18. Recommend restarting Vancomycin at a dose of 500mg IV q24h starting 07/08 at 1100. Trough to be drawn 07/10 at 1030. Pharmacy Service will continue to monitor and adjust dosing as required. Follow-Up Labs: Trough Vancomycin - 07/10 1030
[2019-07-09 08:46] LABS: Bedside Glucose 123 mg/dL (70-110)
--- NOTE | 2019-07-09 11:43 | NURSING ---
this nurse attempted to start another iv site, no success, Xavier ZULETAsupervisor propellant charge loading nurse attempted twice, then he asked Wilner ZULETA the cloth shearing supervisor to attempt.
[2019-07-09 12:05] LABS: Bedside Glucose 105 mg/dL (70-110)
--- NOTE | 2019-07-09 12:18 | NURSING ---
Deyanira RN notified surgery check in not completed, atb not hung due blood infusing and attempted 3 times to obtain iv site without sucess.
[2019-07-09] MEDS: Vancomycin IV 500 MG/100 ML BAG 100 MG IV (12:33)
[2019-07-09] MEDS: Lactated Ringers 1,000 ML 100 ML IV ×2 (12:38→16:57)
--- NOTE | 2019-07-09 13:13 | PCM.PROGNOTE ---
Patient Problems: Active and Suspected Problems (Last Reviewed 07/03/19 @ 01:[address] Darwin Lema MD) Osteomyelitis (Acute) Subjective: Patient seen and examined. Reports she did not sleep well last night, reports anxiety related to surgery. Denies fever, chills. Denies pain. Denies other complaints. - Physical Exam Vitals/I&O's: Vital Signs Temp Pulse Resp BP Pulse Ox 97.7 F L 60 16 136/58 H 10 07/09/19 11:58 07/09/19 11:58 07/09/19 11:58 07/09/19 11:58 07/09/19 11:58 Oxygen Delivery Method Room Air Weight: 213 lb 4.791 oz Body Mass Index (BMI) 34.4 Finger Stick Blood Glucose 163 Intake and Output for Last 24 Hours 07/07/19 07/08/19 07/09/19 23:59 23:59 23:59 Intake Total 4131.25 / 4131.25 930 / 930 350 / 350 Output Total 3225 / 3225 850 / 850 Balance 906.25 / 906.25 80 / 80 350 / 350 General: Alert, Oriented x3, Cooperative HEENT: Atraumatic, PERRLA, EOMI, Normocephalic Neck: Supple, No JVD, Negative Carotid Bruits Lungs: Clear to auscultation, Normal air movement Cardiovascular: Regular rate, Regular Rhythm, Normal S1, Normal S2, No murmurs Abdomen: Bowel Sounds Present, Soft, Non Tender, Non-Distended Extremities: No clubbing, No cyanosis, No edema, Capillary Refill Less than 3 Seconds Skin: No rashes, No breakdown, - - Left ankle surgical wound, dressing intact. Musculoskeletal: No Tenderness to Palpation of Joints or Extremities Neurological: Cranial nerves II-XII grossly intact, Neuro grossly intact Psych/Mental Status: Normal Affect, Appropriate Microbiology Past 72 Hours 07/04/19 08:25 Bone - Other Gram Stain - Final 07/04/19 08:25 Bone - Other Wound Culture - Final Streptococcus agalactiae (B) Kocuria kristinae 07/04/19 08:25 Bone - Other Anaerobic Culture - Final No anaerobic bacteria isolated. Laboratory Results 07/08/19 16:46: POC Glucose 115 H 07/08/19 21:13: POC Glucose 146 H 07/09/19 05:25: Random Vancomycin 18.2 H 07/09/19 05:25: WBC 23.2 H, RBC 3.00 L, Hgb 7.9 L, Hct 25.2 L, MCV 84.0, MCH 26.3 L, MCHC 31.3 L, RDW Std Deviation 54.0 H, RDW Coeff of Racheal 17.8 H, Plt Count 430, MPV 9.0 07/09/19 05:25: Sodium 136, Potassium 3.6, Chloride 110 H, Carbon Dioxide 16.0 L, Anion Gap 10, BUN 42 H, Creatinine 2.03 H, Estim Creat Clear Calc 27.24, Est GFR (MDRD) Af Amer 32 L, Est GFR (MDRD) Non-Af 26 L, BUN/Creatinine Ratio 20.7 H, Glucose 119 H, Calcium 9.0 07/09/19 05:25: PT 14.6, INR 1.2, APTT 37.6 H 07/09/19 05:25: Blood Type O NEGATIVE, Antibody Screen NEGATIVE 07/09/19 05:25: Crossmatch See Detail 07/09/19 06:35: POC Glucose 123 H 07/09/19 11:56: POC Glucose 105 Current Medications Acetaminophen (Tylenol) 500 mg PO Q6 [facility] Last Admin: 07/09/19 12:19 Dose: Not Given Documented by: Allopurinol (Zyloprim) 300 mg PO DAILYCM [facility] Last Admin: 07/09/19 08:52 Dose: Not Given Documented by: Atenolol (Tenormin (Beta Jona)) 50 mg PO DAILY [facility] Last Admin: 07/09/19 07:54 Dose: 50 mg Documented by: Cyclobenzaprine HCl (Flexeril) 10 mg PO TID PRN PRN PRN Reason: muscle spasm Last Admin: 07/03/19 21:20 Dose: 10 mg Documented by: Dextrose (D50w Syringe) 0 gm IV X1 PRN; Protocol PRN Reason: Hypoglycemia Diltiazem HCl (Cardizem Cd) 180 mg PO DAILY [facility] Last Admin: 07/09/19 07:54 Dose: 180 mg Documented by: Gabapentin (Neurontin) 100 mg PO TID [facility] Last Admin: 07/09/19 06:42 Dose: 100 mg Documented by: Glucagon () 1 mg IM .X1 PRN PRN Reason: Hypoglycemia Heparin Sodium (Porcine) (Heparin Na) 5,000 unit SC Q8 [facility] Last Admin: 07/08/19 23:47 Dose: Not Given Documented by: Sodium Chloride () 250 mls @ 15 mls/hr IV .[id number] PRN PRN Reason: Additional IVPB Infusion Ceftriaxone Sodium 2 gm/ (Sodium Chloride) 50 mls @ 100 mls/hr IV Q24 [facility] Last Infusion: 07/08/19 11:50 Dose: Infused Documented by: Vancomycin IV Pharmacy to Dose (1 ea/ Sodium Chloride) 500 mls @ 250 mls/hr IV X1 PRN; Protocol PRN Reason: Rx to Dose Vancomycin HCl () 500 mg in 100 mls @ 100 mls/hr IV Q24H [facility] Last Admin: 07/09/19 12:33 Dose: 100 mls/hr Documented by: Lactated Ringer's () 1,000 mls @ 100 mls/hr IV .Q10H [facility] Last Admin: 07/09/19 12:38 Dose: 100 mls/hr Documented by: Insulin Human Lispro (Humalog Kwikpen (Bkc)) 0 unit SC ACHS [facility]; Protocol Last Admin: 07/09/19 06:43 Dose: Not Given Documented by: Lactobacillus Acidophilus (Acidophilus) 1 tablet PO TID [facility] Last Admin: 07/09/19 06:42 Dose: 1 tablet Documented by: Melatonin (Melatonin) 3 mg PO QHS PRN PRN PRN Reason: INSOMNIA Last Admin: 07/03/19 00:31 Dose: 3 mg Documented by: Miconazole Nitrate (Monistat 7) 1 applic VAGINAL QHS [facility] Last Admin: 07/08/19 21:10 Dose: Not Given Documented by: Nutritional Formula (Pancho - [place] Flavor) 1 packet PO BIDCM [facility] Last Admin: 07/09/19 08:52 Dose: Not Given Documented by: Ondansetron HCl (Zofran) 4 mg IV Q8H PRN PRN PRN Reason: NAUSEA/VOMITING Sodium Chloride () 10 - 40 ml IV UD PRN PRN Reason: SALINE FLUSH Medical Necessity - Tobacco Use Smoking Status: Current every day smoker Assessment/Plan All Active Problems (Last Reviewed 07/03/19 @ 01:[address] Darwin Lema MD) Type 2 diabetes mellitus with diabetic polyneuropathy (Acute) Other specified peripheral vascular diseases (Acute) Cutaneous abscess of left ankle (Acute) Cellulitis and abscess of left lower extremity (Acute) Cellulitis and abscess of right lower extremity (Acute) Osteomyelitis (Acute) Acute osteomyelitis involving ankle and foot (Acute) Diabetic foot ulcer associated with type 2 diabetes mellitus (Acute) Tobacco abuse counseling (Acute) 1. Left ankle osteomyelitis, recurrent infections-status post I&D left ankle 07/04/2019. Cultures growing Streptococcus agalactiae and kocuria kristinae. Infectious disease, podiatry and plastics following. History of multiple infections in the past with MRSA, Pseudomonas. Patient has been wheelchair-bound due to unstable floppy ankle with previous removal of hardware October 2018. Patient will undergo left below the knee amputation by Dr. Ray 07/09/2019. Continue IV vancomycin and IV Rocephin. PT/OT. Case management following for discharge planning. 2. Acute on chronic normocytic anemia-2 units PRBC ordered due to plans for surgery for hemoglobin 7.9. Patient reports a history of iron deficiency anemia. Prior iron studies consistent with iron deficiency. Will begin iron supplementation. Trend CBC. 3. Acute kidney injury on chronic kidney disease stage IV-acute kidney injury resolved. Continue outpatient follow-up with nephrology. 4. Type 2 diabetes mellitus-diet controlled at home. Hemoglobin A1c 6.5%. Accu-Cheks with sliding scale insulin. 5. History of gout-continue allopurinol. 6. Hypertension-continue atenolol, cardizem. MIGUEL inhibitor on hold. 7. Tobacco dependence- encouraged cessation. DVT prophylaxis- heparin sc This patient was seen by ELIAS Delgado under the supervision of Dr. Brunson.
[2019-07-09] MEDS: Mupirocin Ointment 22gm Tube 1 APPLIC (16:08)
--- NOTE | 2019-07-09 16:47 | OP.PCM_ITS ---
Report of Operation Date of Procedure: 07/09/19 Pre-Operative Diagnosis: 1. Nonhealing infected diabetic ulcer left ankle with abscess. 2. Osteomyelitis. 3. History of MRSA. 4. History of Pseudomonas. 5. Recurrent dislocation left ankle. 6. Late effect open fracture left ankle. 7. Late effect mechanical breakdown hardware fixation. 8. Diabetes mellitus. 9. Smoker. Post-Operative Diagnosis: Same. Surgery/Procedure Performed:: Left below knee amputation. Description of Surgical Findings:: ]The patient is a 59 year old F with a significant history of diabetes mellitus; lupus; dislocation of left ankle; and Pseudomonas infection of left ankle who presented with increasing pain and purulent drainage of left ankle ulcer. This has been going on for about a week. In the past patient was on doxycycline for about a year because of osteomyelitis of her left ankle. With her new symptoms she took some leftovers of the doxycycline. However her symptoms continued to worsen. She was admitted to the hospital and started on Vancomycin and Zosyn. Her WBC was 17.2 on admission. Today it is 20.0. X-ray of the tibia/fibula showed resumption and erosion. CT scan showed periosteal reaction and destructive change of the tibia adjacent to soft tissue defect consistent with osteomyelitis. Destruction and postoperative change of the talus and erosive change of the calcaneus with contiguous spread osteomyelitis versus inflammatory and postoperative/posttraumatic arthropathy. Dr. Weldon took her to surgery on 07/04/19 for incision, drainage and debridement of left ankle down to bone. Wound culture showed Streptococcus agalactiae and Kocuria kristinae. Antibiotics were changed to Ceftriaxone and Flagyl. Vancomycin was added later. Pathology is pending. HgbA1c was 6.5. She reported that around October 2018 hardware was removed from her left lower extremity because of Pseudomonas infection. She has an unstable ankle and supposedly is non weight bearing. I was asked to evaluate this patient for surgical options for amputation. Patient was informed of the risks and complications of the procedure including alternatives to surgery. These were discussed with the patient personally. Patient voices understanding and wishes to proceed. Encouraged patient to stop smoking as it may have deleterious effects on wound healing. Total tourniquet time - 66 minutes. I used AmnioFill Placental Connective Tissue Powder, 1000 mg. Catalog Number - [id number]. Lot Number - [id number]. Expiration - November 30, 2023. I used [place] absorbable hemostat. Reference Number - [id number]. Lot Number - [id number]. Expiration - November 26, 2023. sleeve setter: None Type of Anesthesia:: Spinal Specimen's removed: 1. Amputated left leg to Pathology. 2. Amputated stump left leg to Microbiology. 3. Amputated stump left leg bone to Pathology and Microbiology. Drains: Osbaldo. Estimated Blood Loss (mL): 50 ml. Description of Procedure: Patient was taken to OR in supine position and in the sitting position spinal anesthesia was administered. Her left leg was prepped and draped in the usual fashion. Her left foot dressing was left intact and a sterile stockinette will be placed over it. SCD was placed on the right leg for DVT prophylaxis. Perioperative antibiotics were given intravenously. A gaytan catheter was then placed. The anterior tibial tubercle was marked. A horizontal marking was made 12 cm distally. I then extended this marking posteriorly and created a posterior flap with a length of 10 cm. When the tibia is exposed, I will dillon it at 11.5 cm for the osteotomy. The fibula will be remove about 1.5 cm proximal to that. These markings were infiltrated with xylocaine with epinephrine. Prior to prepping the patient, a tourniquet was placed on the proximal thigh. The left leg was elevated and compression was done with a towel as the tourniquet was elevated to 300 mmHg. I didn't want to use the Esmarch bandage in an infected extremity. When I got to the anterior tibia, a horizontal incision was made down to the bone. This horizontal incision was made at 12 cm from the anterior tibial tubercle. I then incised the anterior tibial muscle, the extensor hallucis longus muscle, and the extensor digitorum longus muscle. The anterior tibial vessels were seen and dissected and ligated with Number 2 Silk tie ligatures. The peroneal muscles were then incised laterally. I located the peroneal nerve and placed it on stretch. I incised the nerve and allowed it to retract proximally to minimize neuroma formation. This exposed the fibula. Using a periosteal elevator, I freed up the tibia. I then placed the gigli saw around the tibia at the level of the previous marking at 11.5 cm from the anterior tibial tubercle. The tibia was then incised. This made it a little easier to get exposure to the tibialis posterior muscle which was incised. The flexor digitorum longus muscle medially and the flexor hallucis longus muscle laterally were incised. This exposed the peroneal vessels laterally and the posterior tibial vessels medially. These vessels were dissected and ligated with Number 2 Silk tie ligatures. The posterior tibial nerve was dissected free and placed on stretch and incised. This allowed the proximal end to retract proximally to minimize neuroma formation on the stump. I dissected the fibula with a periosteal elevator superiorly about 1.5 cm proximal to the tibial osteotomy. I used a bone cutter to incise the fibula. I then extended the skin incision posteriorly and created the posterior flap. I the gastrocnemius muscle from the soleus muscle. The remaining muscle fibers from the soleus muscle were incised as the distal leg was removed from the field. The amputated leg will be sent to Pathology for analysis. In order to close the posterior flap, the soleus muscle was incised thus exposing the gastrocnemius muscle. This thinned the flap enough that I was able to advance the flap anteriorly to close the stump. A size 15 Osbaldo drain was placed through a separate stab incision medially and secured to the skin with 3- 0 Nylon suture. The drain was used to drain the deeper wound over the bone and brought out into the subcutaneous tissue. Prior to closure of the stump, I beveled the tibia anteriorly with an osteotome and a mallet to smooth out the bone anteriorly. A rasp was used to smooth out the edges of the bone. At the level of the stump, I sent soft tissue to Microbiology for culture. I also sent bone to Pathology for analysis to evaluate for osteomyelitis and to Microbiology for culture. I then released the tourniquet after 66 minutes. Hemostasis was obtained with electrocautery. Nothing else needed to be ligated at this time. The wound was irrigated with Irrisept 0.05% chlorhexidine solution followed by saline irrigation. The flaps were viable with no evidence of vascular compromise. I then placed AmnioFill placental connective tissue into the wound at the level of the bone to help stimulate the healing process. I used 1000 mg. The fascia of the gastrocnemius muscle was then approximated to the fascia and periosteum anteriorly with 2-0 Vicryl figure of eight interrupted sutures. I then sprayed [place] absorbable hemostat into the subcutaneous wound to minimize seroma formation. The deeper subcutaneous tissue was approximated with 2-0 Vicry figure of eight interrupted sutures. The deep dermis and subcutaneous tissue was approximated with 2-0 Vicryl interrupted sutures. The skin was approximated with 3-0 Nylon vertical mattress interrupted sutures. Antibiotic ointment was applied to the suture line followed by Kerlix gauze and ABD pads followed by compression MIGUEL wrap. Patient tolerated the procedure well. She was sent to PACU in satisfactory condition. Will check a Hgb postop. Preoperatively her Hgb was 7.9 and she received 2 units PRBC prior to surgery. She will be sent upstairs for continued postop care. The drain will be removed in 2-3 weeks. The sutures will be removed in 3-[address] At [address] time will place a stump instrument mechanics supervisor in anticipation for the prosthesis. Grafts/Implants Used: AmnioFill placental connective tissue powder. - Complications None. - Admit VTE Documentation VTE Present on Admission: No VTE Mechan Device Prophylaxis: SCD's VTE Pharm Prophylaxis ordered?: Yes Surgery Charges CPT - 65177 ICD-10 - E11.621, L02.416, M86.9, Z86.14, E11.9, M24.482, S82.892S, T84.318S F17.200
[2019-07-09 16:55] LABS: Bedside Glucose 97 mg/dL (70-110)
[2019-07-09] MEDS: Gabapentin 300 MG Capsule PO (17:55)
[2019-07-09] MEDS: HYDROmorphone 1 MG/ML Syringe IV ×2 (17:55→21:16)
[2019-07-09] MEDS: 0.9% Saline Lock 10 ML Syringe IV (17:55)
[2019-07-09] MEDS: Ferrous Sulfate 325 MG Tablet PO (17:55)
[2019-07-09] MEDS: diazePAM 5 MG Tablet PO (19:13)
[2019-07-09] MEDS: Heparin Injection (Vial) 5,000 UNIT/ML VIAL 5000 UNIT SC (22:04)
[2019-07-09 22:56] LABS: Bedside Glucose 111 mg/dL (70-110)
[2019-07-09] MEDS: oxyCODONE 5 MG Tablet 10 MG PO (23:31)
[2019-07-10] MEDS: Lactated Ringers 1,000 ML 100 ML IV ×3 (02:03→21:37)
[2019-07-10 02:29] VITALS: BP 144/73; PULSE 69; RESP 18; TEMP 36.6; O2SAT 96
[2019-07-10] MEDS: HYDROmorphone 1 MG/ML Syringe IV ×2 (03:00→12:16)
[2019-07-10 05:33] LABS: Hematocrit 32.8 % (37-47); Hemoglobin 10.2 g/dL (12.0-15.0); Mean Corp Hgb Conc 31.1 g/dL (32-36); Mean Corpuscular Hgb 26.9 pg (27.0-32.0); Mean Corpuscular Volume 86.5 fL (81-99); Mean Platelet Vol. 9.3 fl (6.2-12.0); Platelet Count 401 K/mm3 (150-450); RBC Distribution Width CV 16.9 % (11.6-14.6); RBC Distribution Width SD 51.6 fl (35.1-43.9); Red Blood Count 3.79 M/mm3 (4.2-5.4)
[2019-07-10 06:00] LABS: Anion Gap 9 (5-15); BUN 41 mg/dL (7-18); BUN/Creat Ratio 22.2 RATIO (10-20); Chloride 111 mmol/L (98-107); Creatinine, Serum 1.85 mg/dL (0.55-1.02); EST Glomerular Filtration Rate 29 mL/min (>60); Est Glom Filt Rate - Afr Amer 36 mL/min (>60); Estimated Creatinine Clearance 29.89 ml/min; Glucose 85 mg/dL (74-106); Potassium 3.9 mmol/L (3.5-5.1); Sodium Level 136 mmol/L (136-145)
[2019-07-10 06:44] VITALS: BP 142/82; PULSE 85; RESP 18; TEMP 37.2; O2SAT 98
[2019-07-10] MEDS: oxyCODONE 5 MG Tablet 10 MG PO (06:47)
[2019-07-10] MEDS: Heparin Injection (Vial) 5,000 UNIT/ML VIAL 5000 UNIT SC ×3 (06:47→21:36)
[2019-07-10] MEDS: Acetaminophen 500 MG Tablet PO (06:47)
[2019-07-10 06:55] LABS: Bedside Glucose 81 mg/dL (70-110)
[2019-07-10 09:14] VITALS: BP 111/60; PULSE 82; RESP 18; TEMP 37.2; O2SAT 96
[2019-07-10] MEDS: Allopurinol 300 MG Tablet PO (09:16)
[2019-07-10] MEDS: Atenolol 50 MG Tablet PO (09:16)
[2019-07-10] MEDS: dilTIAZem CD 180 MG Capsule PO (09:16)
[2019-07-10] MEDS: Gabapentin 300 MG Capsule PO ×3 (09:17→17:18)
[2019-07-10] MEDS: Vancomycin IV 500 MG/100 ML BAG 100 MG IV (10:32)
--- NOTE | 2019-07-10 10:51 | PCM.PROGNOTE ---
Patient Problems: Active and Suspected Problems (Last Reviewed 07/03/19 @ 01:[address] Darwin Lema MD) Osteomyelitis (Acute) Subjective: Patient seen and examined. Underwent left below the knee amputation 07/09/2019. Pain controlled however complains of nausea related to pain medication. Requesting transition to [place]. Denies fever, chills. Denies other complaints. - Physical Exam Vitals/I&O's: Vital Signs Temp Pulse Resp BP Pulse Ox 98.9 F 82 18 111/60 96 07/10/19 09:14 07/10/19 09:14 07/10/19 09:14 07/10/19 09:14 07/10/19 09:14 Oxygen Delivery Method Room Air Weight: 213 lb 4.791 oz Body Mass Index (BMI) 34.4 Finger Stick Blood Glucose 97 Intake and Output for Last 24 Hours 07/08/19 07/09/19 07/10/19 23:59 23:59 23:59 Intake Total 930 / 930 2100 / 2100 1997.33 / Output Total 850 / 850 1068 / 1068 930 / 930 Balance 80 / 80 1032 / 1032 1068.33 / 1068.33 General: Alert, Oriented x3, Cooperative HEENT: Atraumatic, PERRLA, EOMI, Normocephalic Neck: Supple, No JVD, Negative Carotid Bruits Lungs: Clear to auscultation, Normal air movement Cardiovascular: Regular rate, Regular Rhythm, Normal S1, Normal S2, No murmurs Abdomen: Bowel Sounds Present, Soft, Non Tender, Non-Distended Extremities: No clubbing, No cyanosis, No edema, Capillary Refill Less than 3 Seconds Skin: No rashes, No breakdown, - - Left below the knee amputation, dressing and drain intact Musculoskeletal: No Tenderness to Palpation of Joints or Extremities Neurological: Cranial nerves II-XII grossly intact Psych/Mental Status: Normal Affect, Appropriate Microbiology Past 72 Hours 07/04/19 08:25 Bone - Other Gram Stain - Final 07/04/19 08:25 Bone - Other Wound Culture - Final Streptococcus agalactiae (B) Kocuria kristinae 07/04/19 08:25 Bone - Other Anaerobic Culture - Final No anaerobic bacteria isolated. Laboratory Results 07/09/19 05:25: Crossmatch See Detail 07/09/19 11:56: POC Glucose 105 07/09/19 16:50: POC Glucose 97 07/09/19 21:57: POC Glucose 111 H 07/10/19 04:44: WBC 25.0 H, RBC 3.79 L, Hgb 10.2 L, Hct 32.8 L, MCV 86.5, MCH 26.9 L, MCHC 31.1 L, RDW Std Deviation 51.6 H, RDW Coeff of Racheal 16.9 H, Plt Count 401, MPV 9.3 07/10/19 04:44: Sodium 136, Potassium 3.9, Chloride 111 H, Carbon Dioxide 16.0 L, Anion Gap 9, BUN 41 H, Creatinine 1.85 H, Estim Creat Clear Calc 29.89, Est GFR (MDRD) Af Amer 36 L, Est GFR (MDRD) Non-Af 29 L, BUN/Creatinine Ratio 22.2 H, Glucose 85, Calcium 9.0 07/10/19 06:36: POC Glucose 81 Current Medications Hydrocodone Bitart/Acetaminophen ([place] 5mg-325mg) 2 tablet PO Q4H PRN PRN PRN Reason: Pain Score 1-1010 [facility] Last Admin: 07/10/19 09:16 Dose: 300 mg Documented by: Atenolol (Tenormin (Beta Jona)) 50 mg PO DAILY [facility] Last Admin: 07/10/19 09:16 Dose: 50 mg Documented by: Cyclobenzaprine HCl (Flexeril) 10 mg PO TID PRN PRN PRN Reason: muscle spasm Last Admin: 07/03/19 21:20 Dose: 10 mg Documented by: Dextrose (D50w Syringe) 0 gm IV X1 PRN; Protocol PRN Reason: Hypoglycemia Diazepam (Valium) 5 mg PO 4X/DAY PRN PRN PRN Reason: SPASMS Last Admin: 07/09/19 19:13 Dose: 5 mg Documented by: Diltiazem HCl (Cardizem Cd) 180 mg PO DAILY [facility] Last Admin: 07/10/19 09:16 Dose: 180 mg Documented by: Ferrous Sulfate (Ferrous Sulfate) 325 mg PO 1200,1700 [facility] Last Admin: 07/09/19 17:55 Dose: 325 mg Documented by: Gabapentin (Neurontin) 300 mg PO TIDCM [facility] Last Admin: 07/10/19 09:17 Dose: 300 mg Documented by: Glucagon () 1 mg IM .X1 PRN PRN Reason: Hypoglycemia Heparin Sodium (Porcine) (Heparin Na) 5,000 unit SC Q8 [facility] Last Admin: 07/10/19 06:47 Dose: 5,000 unit Documented by: Hydromorphone HCl (Dilaudid Inj) 1 mg IV Q3H PRN PRN PRN Reason: Pain Score 6-10/10 Last Admin: 07/10/19 03:00 Dose: 1 mg Documented by: Sodium Chloride () 250 mls @ 15 mls/hr IV .[id number] PRN PRN Reason: Additional IVPB Infusion Ceftriaxone Sodium 2 gm/ (Sodium Chloride) 50 mls @ 100 mls/hr IV Q24 [facility] Last Infusion: 07/09/19 16:58 Dose: Infused Documented by: Vancomycin IV Pharmacy to Dose (1 ea/ Sodium Chloride) 500 mls @ 250 mls/hr IV X1 PRN; Protocol PRN Reason: Rx to Dose Vancomycin HCl () 500 mg in 100 mls @ 100 mls/hr IV Q24H [facility] Last Admin: 07/10/19 10:32 Dose: 100 mls/hr Documented by: Lactated Ringer's () 1,000 mls @ 100 mls/hr IV .Q10H [facility] Last Infusion: 07/10/19 10:33 Dose: 0 mls/hr Documented by: Insulin Human Lispro (Humalog Kwikpen (Bkc)) 0 unit SC ACHS [facility]; Protocol Last Admin: 07/10/19 06:48 Dose: Not Given Documented by: Lactobacillus Acidophilus (Acidophilus) 1 tablet PO TID [facility] Last Admin: 07/10/19 06:47 Dose: 1 tablet Documented by: Melatonin (Melatonin) 3 mg PO QHS PRN PRN PRN Reason: INSOMNIA Last Admin: 07/03/19 00:31 Dose: 3 mg Documented by: Miconazole Nitrate (Monistat 7) 1 applic VAGINAL QHS [facility] Last Admin: 07/09/19 22:04 Dose: Not Given Documented by: Nutritional Formula (Pancho - [place] Flavor) 1 packet PO BIDCM [facility] Last Admin: 07/10/19 09:16 Dose: 1 packet Documented by: Ondansetron HCl (Zofran) 4 mg IV Q8H PRN PRN PRN Reason: NAUSEA/VOMITING Sodium Chloride () 10 - 40 ml IV UD PRN PRN Reason: SALINE FLUSH Last Admin: 07/09/19 17:55 Dose: 10 ml Documented by: Medical Necessity - Tobacco Use Smoking Status: Current every day smoker Assessment/Plan All Active Problems (Last Reviewed 07/03/19 @ 01:[address] Darwin Lema MD) Type 2 diabetes mellitus with diabetic polyneuropathy (Acute) Other specified peripheral vascular diseases (Acute) Cutaneous abscess of left ankle (Acute) Cellulitis and abscess of left lower extremity (Acute) Cellulitis and abscess of right lower extremity (Acute) Osteomyelitis (Acute) Acute osteomyelitis involving ankle and foot (Acute) Diabetic foot ulcer associated with type 2 diabetes mellitus (Acute) Tobacco abuse counseling (Acute) 1. Left ankle osteomyelitis, recurrent infections-status post I&D left ankle 07/04/2019. Cultures growing Streptococcus agalactiae and kocuria kristinae. Infectious disease, podiatry and plastics following. History of multiple infections in the past with MRSA, Pseudomonas. Patient has been wheelchair-bound due to unstable floppy ankle with previous removal of hardware October 2018. Left below the knee amputation by Dr. Ray 07/09/2019. Continue IV vancomycin and IV Rocephin. PT/OT. Case management following for discharge planning. 2. Acute on chronic normocytic anemia-S/P 2 units PRBC for hemoglobin 7.9. Patient reports a history of iron deficiency anemia. Prior iron studies consistent with iron deficiency. Will begin iron supplementation. Trend CBC. 3. Acute kidney injury on chronic kidney disease stage IV-acute kidney injury resolved. Continue outpatient follow-up with nephrology. 4. Type 2 diabetes mellitus-diet controlled at home. Hemoglobin A1c 6.5%. Accu-Cheks with sliding scale insulin. 5. History of gout-continue allopurinol. 6. Hypertension-continue atenolol, cardizem. MIGUEL inhibitor on hold. 7. Tobacco dependence- encouraged cessation. DVT prophylaxis- heparin sc This patient was seen by ELIAS Delgado under the supervision of Dr. Brunson.
[2019-07-10] MEDS: HYDROcodone Bitartrate/Apap 5/325 Tablet PO ×3 (12:00→21:36)
[2019-07-10] MEDS: Ondansetron 4 MG/2 ML Vial IV (12:00)
[2019-07-10 12:01] LABS: Bedside Glucose 151 mg/dL (70-110)
[2019-07-10] MEDS: Insulin Lispro 100 UNIT/ML INSULN.PEN SC (12:03)
[2019-07-10] MEDS: Ferrous Sulfate 325 MG Tablet PO ×2 (12:11→17:18)
[2019-07-10 12:14] VITALS: BP 132/67
--- NOTE | 2019-07-10 13:04 | PCM.PN.SRG ---
Patient Problems: Active and Suspected Problems (Last Reviewed 07/03/19 @ 01:[address] Darwin Lema MD) Osteomyelitis (Acute) Subjective: Postop #1 Patient has incisional pain. - Physical Exam Vitals/I&O's: Vital Signs Temp Pulse Resp BP Pulse Ox 98.9 F 82 18 132/67 H 96 07/10/19 09:14 07/10/19 09:14 07/10/19 09:14 07/10/19 12:14 07/10/19 09:14 Oxygen Delivery Method Room Air Weight: 213 lb 4.791 oz Body Mass Index (BMI) 34.4 Finger Stick Blood Glucose 97 Intake and Output for Last 24 Hours 07/08/19 07/09/19 07/10/19 23:59 23:59 23:59 Intake Total 930 / 930 2100 / 2100 2746.66 / 2746.66 Output Total 850 / 850 1068 / 1068 1250 / 1250 Balance 80 / 80 1032 / 1032 1496.66 / 1496.66 Drainage 78 ml yesterday, 50 ml today. General: Alert, Oriented x3 HEENT: PERRLA, EOMI Oral: Moist Mucosa Neck: Supple Abdomen: Soft, Non-Distended Skin: - - left BKA stump dressing is dry and intact. Will leave dressing alone for a couple of days to allow swelling to subside. Will change the dressing on Friday unless her clinical situation changes. Neurological: Cranial nerves II-XII grossly intact Psych/Mental Status: Normal Affect, Appropriate Microbiology Past 72 Hours 07/09/19 17:01 Bone - Leg Gram Stain - Final 07/09/19 17:01 Tissue - Leg Gram Stain - Final Pathology - pending. Laboratory Results 07/09/19 16:50: POC Glucose 97 07/09/19 21:57: POC Glucose 111 H 07/10/19 04:44: WBC 25.0 H, RBC 3.79 L, Hgb 10.2 L, Hct 32.8 L, MCV 86.5, MCH 26.9 L, MCHC 31.1 L, RDW Std Deviation 51.6 H, RDW Coeff of Racheal 16.9 H, Plt Count 401, MPV 9.3 07/10/19 04:44: Sodium 136, Potassium 3.9, Chloride 111 H, Carbon Dioxide 16.0 L, Anion Gap 9, BUN 41 H, Creatinine 1.85 H, Estim Creat Clear Calc 29.89, Est GFR (MDRD) Af Amer 36 L, Est GFR (MDRD) Non-Af 29 L, BUN/Creatinine Ratio 22.2 H, Glucose 85, Calcium 9.0 07/10/19 06:36: POC Glucose 81 07/10/19 11:40: POC Glucose 151 H Current Medications Hydrocodone Bitart/Acetaminophen ([place] 5mg-325mg) 2 tablet PO Q4H PRN PRN PRN Reason: Pain Score 1-1010 Last Admin: 07/10/19 12:00 Dose: 1 tablet Documented by: [facility] Last Admin: 07/10/19 09:16 Dose: 300 mg Documented by: Atenolol (Tenormin (Beta Jona)) 50 mg PO DAILY [facility] Last Admin: 07/10/19 09:16 Dose: 50 mg Documented by: Cyclobenzaprine HCl (Flexeril) 10 mg PO TID PRN PRN PRN Reason: muscle spasm Last Admin: 07/03/19 21:20 Dose: 10 mg Documented by: Dextrose (D50w Syringe) 0 gm IV X1 PRN; Protocol PRN Reason: Hypoglycemia Diazepam (Valium) 5 mg PO 4X/DAY PRN PRN PRN Reason: SPASMS Last Admin: 07/09/19 19:13 Dose: 5 mg Documented by: Diltiazem HCl (Cardizem Cd) 180 mg PO DAILY [facility] Last Admin: 07/10/19 09:16 Dose: 180 mg Documented by: Ferrous Sulfate (Ferrous Sulfate) 325 mg PO 1200,1700 [facility] Last Admin: 07/10/19 12:11 Dose: 325 mg Documented by: Gabapentin (Neurontin) 300 mg PO TIDCM [facility] Last Admin: 07/10/19 12:11 Dose: 300 mg Documented by: Glucagon () 1 mg IM .X1 PRN PRN Reason: Hypoglycemia Heparin Sodium (Porcine) (Heparin Na) 5,000 unit SC Q8 [facility] Last Admin: 07/10/19 06:47 Dose: 5,000 unit Documented by: Hydromorphone HCl (Dilaudid Inj) 1 mg IV Q3H PRN PRN PRN Reason: Pain Score 6-10/10 Last Admin: 07/10/19 12:16 Dose: 1 mg Documented by: Sodium Chloride () 250 mls @ 15 mls/hr IV .[id number] PRN PRN Reason: Additional IVPB Infusion Ceftriaxone Sodium 2 gm/ (Sodium Chloride) 50 mls @ 100 mls/hr IV Q24 [facility] Last Admin: 07/10/19 12:02 Dose: 100 mls/hr Documented by: Vancomycin IV Pharmacy to Dose (1 ea/ Sodium Chloride) 500 mls @ 250 mls/hr IV X1 PRN; Protocol PRN Reason: Rx to Dose Vancomycin HCl () 500 mg in 100 mls @ 100 mls/hr IV Q24H [facility] Last Infusion: 07/10/19 11:32 Dose: Infused Documented by: Lactated Ringer's () 1,000 mls @ 100 mls/hr IV .Q10H [facility] Last Infusion: 07/10/19 12:01 Dose: 0 mls/hr Documented by: Insulin Human Lispro (Humalog Kwikpen (Bkc)) 0 unit SC ACHS [facility]; Protocol Last Admin: 07/10/19 12:03 Dose: 1 u Documented by: Lactobacillus Acidophilus (Acidophilus) 1 tablet PO TID [facility] Last Admin: 07/10/19 06:47 Dose: 1 tablet Documented by: Melatonin (Melatonin) 3 mg PO QHS PRN PRN PRN Reason: INSOMNIA Last Admin: 07/03/19 00:31 Dose: 3 mg Documented by: Miconazole Nitrate (Monistat 7) 1 applic VAGINAL QHS [facility] Last Admin: 07/09/19 22:04 Dose: Not Given Documented by: Nutritional Formula (Pancho - [place] Flavor) 1 packet PO BIDCM [facility] Last Admin: 07/10/19 09:16 Dose: 1 packet Documented by: Ondansetron HCl (Zofran) 4 mg IV Q8H PRN PRN PRN Reason: NAUSEA/VOMITING Last Admin: 07/10/19 12:00 Dose: 4 mg Documented by: Sodium Chloride () 10 - 40 ml IV UD PRN PRN Reason: SALINE FLUSH Last Admin: 07/09/19 17:55 Dose: 10 ml Documented by: Medical Necessity - Tobacco Use Smoking Status: Current every day smoker Assessment/Plan All Active Problems (Last Reviewed 07/03/19 @ 01:[address] Darwin Lema MD) Type 2 diabetes mellitus with diabetic polyneuropathy (Acute) Other specified peripheral vascular diseases (Acute) Cutaneous abscess of left ankle (Acute) Cellulitis and abscess of left lower extremity (Acute) Cellulitis and abscess of right lower extremity (Acute) Osteomyelitis (Acute) Acute osteomyelitis involving ankle and foot (Acute) Diabetic foot ulcer associated with type 2 diabetes mellitus (Acute) Tobacco abuse counseling (Acute) 1. Nonhealing infected diabetic ulcer left ankle with abscess. 2. Osteomyelitis. 3. History of MRSA. 4. History of Pseudomonas. 5. Recurrent dislocation left ankle. 6. Late effect open fracture left ankle. 7. Late effect mechanical breakdown hardware fixation. 8. Diabetes mellitus. 9. Smoker. 10. a/p left below knee amputation. Operative dressing is dry and intact. Patient states her pain is better. Her Hgb today was 10.2. Received 2 units PRBC before surgery yesterday. Continue Vancomycin and Ceftriaxone. Operative cultures are pending. Will remove drain in 10-14 days. Will remove the sutures in 3-4 weeks. She would benefit from a short stay at an ECF before going home because of the amputation. She had been in TCU before. After discharge, [facility]. Anticipate increased metabolic demands from the infection and the upcoming surgery. Will check a Prealbumin and encourage nutritional supplementation with protein to help the healing process. Her HgbA1c on admission was 6.5. Encouraged patient to stop smoking as it may have deleterious effects on wound healing.
[2019-07-10 15:15] VITALS: BP 130/58; PULSE 84; RESP 18; TEMP 37; O2SAT 94
--- NOTE | 2019-07-10 15:21 | NURSING ---
Kendra cunningham dc'd at this time.
[2019-07-10 16:35] LABS: Bedside Glucose 137 mg/dL (70-110)
[2019-07-10] MEDS: cycloBENZAPRine HCl 10 MG Tablet PO (17:18)
[2019-07-10 21:39] VITALS: BP 138/65; PULSE 81; RESP 18; TEMP 36.8; O2SAT 98
[2019-07-10 21:51] LABS: Bedside Glucose 119 mg/dL (70-110)
[2019-07-11] MEDS: HYDROcodone Bitartrate/Apap 5/325 Tablet PO ×3 (03:01→18:06)
[2019-07-11 03:02] VITALS: BP 132/84; PULSE 86; RESP 18; TEMP 37.1; O2SAT 96
[2019-07-11] MEDS: Heparin Injection (Vial) 5,000 UNIT/ML VIAL 5000 UNIT SC ×3 (06:46→21:36)
[2019-07-11 06:51] LABS: Hematocrit 27.7 % (37-47); Hemoglobin 8.8 g/dL (12.0-15.0); Mean Corp Hgb Conc 31.8 g/dL (32-36); Mean Corpuscular Hgb 26.6 pg (27.0-32.0); Mean Corpuscular Volume 83.7 fL (81-99); Mean Platelet Vol. 9.3 fl (6.2-12.0); Platelet Count 388 K/mm3 (150-450); RBC Distribution Width CV 17.1 % (11.6-14.6); RBC Distribution Width SD 51.9 fl (35.1-43.9); Red Blood Count 3.31 M/mm3 (4.2-5.4); White Blood Count 23.8 K/mm3 (4.4-11.0)
[2019-07-11 06:56] LABS: Bedside Glucose 102 mg/dL (70-110)
[2019-07-11 07:12] LABS: Anion Gap 8 (5-15); BUN 49 mg/dL (7-18); BUN/Creat Ratio 26.3 RATIO (10-20); Calcium,Total 8.5 mg/dL (8.5-10.1); Chloride 109 mmol/L (98-107); Creatinine, Serum 1.86 mg/dL (0.55-1.02); EST Glomerular Filtration Rate 29 mL/min (>60); Est Glom Filt Rate - Afr Amer 35 mL/min (>60); Estimated Creatinine Clearance 29.73 ml/min; Glucose 103 mg/dL (74-106); Potassium 3.9 mmol/L (3.5-5.1); Prealbumin 7.6 mg/dL (20.0-40.0); Sodium Level 135 mmol/L (136-145)
[2019-07-11] MEDS: Lactated Ringers 1,000 ML 100 ML IV ×2 (07:50→21:36)
[2019-07-11] MEDS: Gabapentin 300 MG Capsule PO ×3 (07:56→17:14)
[2019-07-11] MEDS: Allopurinol 300 MG Tablet PO (08:00)
[2019-07-11] MEDS: Atenolol 50 MG Tablet PO (08:06)
[2019-07-11] MEDS: dilTIAZem CD 180 MG Capsule PO (08:06)
[2019-07-11 09:44] LABS: Ferritin 696 ng/mL (8-252); Iron 14 ug/dL (50-170); Iron Binding Capacity,Total 71 ug/dL (250-450); PERCENT IRON SATURATION 19.7 % (15.0-55.0)
[2019-07-11] MEDS: Vancomycin IV 500 MG/100 ML BAG 100 MG IV (10:58)
[2019-07-11] MEDS: Ferrous Sulfate 325 MG Tablet PO ×2 (11:04→17:11)
[2019-07-11 11:12] LABS: Vancomycin, Trough Level 16.3 ug/mL (5.0-15.0)
[2019-07-11 11:16] LABS: Bedside Glucose 118 mg/dL (70-110)
--- NOTE | 2019-07-11 11:16 | PCM.PROGNOTE ---
Patient Problems: Active and Suspected Problems (Last Reviewed 07/03/19 @ 01:[address] Dariwn Lema MD) Osteomyelitis (Acute) Subjective: Patient seen and examined. Complains of left lower extremity pain. Denies fever, chills. Agreeable to rehab at discharge if recommended. - Physical Exam Vitals/I&O's: Vital Signs Temp Pulse Resp BP Pulse Ox 98.8 F 86 18 132/84 H 96 07/11/19 03:02 07/11/19 03:02 07/11/19 03:02 07/11/19 03:02 07/11/19 03:02 Oxygen Delivery Method Room Air Weight: 213 lb 4.791 oz Body Mass Index (BMI) 34.4 Finger Stick Blood Glucose 97 Intake and Output for Last 24 Hours 07/09/19 07/10/19 07/11/19 23:59 23:59 23:59 Intake Total 2100 / 2100 4104.99 / 4104.99 1080 / 1080 Output Total 1068 / 1068 1600 / 1630 955 / 955 Balance 1032 / 1032 2504.99 / 2474.99 125 / 125 General: Alert, Oriented x3, Cooperative HEENT: Atraumatic, PERRLA, EOMI, Normocephalic Neck: Supple, No JVD, Negative Carotid Bruits Lungs: Clear to auscultation, Normal air movement Cardiovascular: Regular rate, Regular Rhythm, Normal S1, Normal S2, No murmurs Abdomen: Bowel Sounds Present, Soft, Non Tender, Non-Distended Extremities: No clubbing, No cyanosis, No edema, Capillary Refill Less than 3 Seconds Skin: No rashes, No breakdown, - - Left below the knee amputation, dressing and drain intact Musculoskeletal: No Tenderness to Palpation of Joints or Extremities Neurological: Cranial nerves II-XII grossly intact, Neuro grossly intact Psych/Mental Status: Normal Affect, Appropriate Microbiology Past 72 Hours 07/09/19 17:01 Bone - Leg Gram Stain - Final 07/09/19 17:01 Bone - Leg Wound Culture - Preliminary No growth-Final to follow 07/09/19 17:01 Tissue - Leg Gram Stain - Final 07/09/19 17:01 Tissue - Leg Wound Culture - Preliminary No growth-Final to follow Laboratory Results 07/10/19 11:40: POC Glucose 151 H 07/10/19 16:25: POC Glucose 137 H 07/10/19 21:34: POC Glucose 119 H 07/11/19 06:11: WBC 23.8 H, RBC 3.31 L, Hgb 8.8 L, Hct 27.7 L, MCV 83.7, MCH 26.6 L, MCHC 31.8 L, RDW Std Deviation 51.9 H, RDW Coeff of Racheal 17.1 H, Plt Count 388, MPV 9.3 07/11/19 06:11: Sodium 135 L, Potassium 3.9, Chloride 109 H, Carbon Dioxide 18.0 L, Anion Gap 8, BUN 49 H, Creatinine 1.86 H, Estim Creat Clear Calc 29.73, Est GFR (MDRD) Af Amer 35 L, Est GFR (MDRD) Non-Af 29 L, BUN/Creatinine Ratio 26.3 H, Glucose 103, Calcium 8.5, Prealbumin 7.6 L 07/11/19 06:11: Vitamin B12 Pending 07/11/19 06:11: Iron 14 L, TIBC 71 L, Iron Saturation 19.7, Ferritin 696 H, Folate 8.20 07/11/19 06:45: POC Glucose 102 07/11/19 10:30: Vancomycin Trough 16.3 H 07/11/19 11:07: POC Glucose Pending Current Medications Hydrocodone Bitart/Acetaminophen ([place] 5mg-325mg) 2 tablet PO Q4H PRN PRN PRN Reason: Pain Score 1-10/10 Last Admin: 07/11/19 07:14 Dose: 2 tablet Documented by: [facility]oprim) [facility] Last Admin: 07/11/19 08:00 Dose: 300 mg Documented by: Atenolol (Tenormin (Beta Jona)) 50 mg PO DAILY [facility] Last Admin: 07/11/19 08:06 Dose: 50 mg Documented by: Cyclobenzaprine HCl (Flexeril) 10 mg PO TID PRN PRN PRN Reason: muscle spasm Last Admin: 07/10/19 17:18 Dose: 10 mg Documented by: Dextrose (D50w Syringe) 0 gm IV X1 PRN; Protocol PRN Reason: Hypoglycemia Diazepam (Valium) 5 mg PO 4X/DAY PRN PRN PRN Reason: SPASMS Last Admin: 07/09/19 19:13 Dose: 5 mg Documented by: Diltiazem HCl (Cardizem Cd) 180 mg PO DAILY [facility] Last Admin: 07/11/19 08:06 Dose: 180 mg Documented by: Ferrous Sulfate (Ferrous Sulfate) 325 mg PO 1200,1700 [facility] Last Admin: 07/11/19 11:04 Dose: 325 mg Documented by: Gabapentin (Neurontin) 300 mg PO TIDCM [facility] Last Admin: 07/11/19 11:04 Dose: 300 mg Documented by: Glucagon () 1 mg IM .X1 PRN PRN Reason: Hypoglycemia Heparin Sodium (Porcine) (Heparin Na) 5,000 unit SC Q8 [facility] Last Admin: 07/11/19 06:46 Dose: 5,000 unit Documented by: Hydromorphone HCl (Dilaudid Inj) 1 mg IV Q3H PRN PRN PRN Reason: Pain Score 6-10/10 Last Admin: 07/10/19 12:16 Dose: 1 mg Documented by: Sodium Chloride () 250 mls @ 15 mls/hr IV .[id number] PRN PRN Reason: Additional IVPB Infusion Ceftriaxone Sodium 2 gm/ (Sodium Chloride) 50 mls @ 100 mls/hr IV Q24 [facility] Last Infusion: 07/11/19 08:36 Dose: Infused Documented by: Vancomycin IV Pharmacy to Dose (1 ea/ Sodium Chloride) 500 mls @ 250 mls/hr IV X1 PRN; Protocol PRN Reason: Rx to Dose Vancomycin HCl () 500 mg in 100 mls @ 100 mls/hr IV Q24H [facility] Last Admin: 07/11/19 10:58 Dose: 100 mls/hr Documented by: Lactated Ringer's () 1,000 mls @ 100 mls/hr IV .Q10H [facility] Last Infusion: 07/11/19 08:36 Dose: 100 mls/hr Documented by: Insulin Human Lispro (Humalog Kwikpen (Bkc)) 0 unit SC ACHS [facility]; Protocol Last Admin: 07/11/19 11:09 Dose: Not Given Documented by: Lactobacillus Acidophilus (Acidophilus) 1 tablet PO TID [facility] Last Admin: 07/11/19 06:46 Dose: 1 tablet Documented by: Lorazepam (Ativan) 1 mg PO Q8H PRN PRN PRN Reason: ANXIETY Melatonin (Melatonin) 3 mg PO QHS PRN PRN PRN Reason: INSOMNIA Last Admin: 07/03/19 00:31 Dose: 3 mg Documented by: Miconazole Nitrate (Monistat 7) 1 applic VAGINAL QHS [facility] Last Admin: 07/10/19 21:37 Dose: Not Given Documented by: Nutritional Formula (Pancho - [place] Flavor) 1 packet PO BIDCM [facility] Last Admin: 07/11/19 07:57 Dose: 1 packet Documented by: Ondansetron HCl (Zofran) 4 mg IV Q8H PRN PRN PRN Reason: NAUSEA/VOMITING Last Admin: 07/10/19 12:00 Dose: 4 mg Documented by: Sodium Chloride () 10 - 40 ml IV UD PRN PRN Reason: SALINE FLUSH Last Admin: 07/09/19 17:55 Dose: 10 ml Documented by: Medical Necessity - Tobacco Use Smoking Status: Current every day smoker Assessment/Plan All Active Problems (Last Reviewed 07/03/19 @ 01:[address] Darwin Lema MD) Type 2 diabetes mellitus with diabetic polyneuropathy (Acute) Other specified peripheral vascular diseases (Acute) Cutaneous abscess of left ankle (Acute) Cellulitis and abscess of left lower extremity (Acute) Cellulitis and abscess of right lower extremity (Acute) Osteomyelitis (Acute) Acute osteomyelitis involving ankle and foot (Acute) Diabetic foot ulcer associated with type 2 diabetes mellitus (Acute) Tobacco abuse counseling (Acute) 1. Left ankle osteomyelitis, recurrent infections-status post I&D left ankle 07/04/2019. Cultures growing Streptococcus agalactiae and kocuria kristinae. Infectious disease, podiatry and plastics following. History of multiple infections in the past with MRSA, Pseudomonas. Patient has been wheelchair-bound due to unstable floppy ankle with previous removal of hardware October 2018. Left below the knee amputation by Dr. Ray 07/09/2019. Continue IV vancomycin and IV Rocephin. PT/OT. Case management following for discharge planning. Patient complaining of phantom pain. Already on gabapentin. Will begin amitriptyline 25 mg nightly. 2. Acute on chronic normocytic anemia-S/P 2 units PRBC for hemoglobin 7.9. Patient reports a history of iron deficiency anemia. Prior iron studies consistent with iron deficiency. Continue iron supplementation. Trend CBC. Hemoglobin stable. 3. Acute kidney injury on chronic kidney disease stage IV-acute kidney injury resolved. Continue outpatient follow-up with nephrology. 4. Type 2 diabetes mellitus-diet controlled at home. Hemoglobin A1c 6.5%. Accu-Cheks with sliding scale insulin. 5. History of gout-continue allopurinol. 6. Hypertension-continue atenolol, cardizem. MIGUEL inhibitor on hold. 7. Tobacco dependence- encouraged cessation. DVT prophylaxis- heparin sc This patient was seen by ELIAS Delgado under the supervision of Dr. Brunson.
--- NOTE | 2019-07-11 13:18 | PCM.RX.CS ---
Consult Pharmacy has been consulted to manage selected antiobiotic: Vancomycin Type of Consult: Follow-up Suspected Infection: Osteomyelitis Labs: Sodium 135 mmol/L (136-145) L 07/11/19 06:11 Potassium 3.9 mmol/L (3.5-5.1) 07/11/19 06:11 Chloride 109 mmol/L (98-107) H 07/11/19 06:11 Carbon Dioxide 18.0 mmol/L (21.0-32.0) L 07/11/19 06:11 Anion Gap 8 (5-15) 07/11/19 06:11 BUN 49 mg/dL (7-18) H 07/11/19 06:11 Creatinine 1.86 mg/dL (0.55-1.02) H 07/11/19 06:11 Est GFR (MDRD) Af Amer 35 mL/min (>60) L 07/11/19 06:11 Est GFR (MDRD) Non-Af 29 mL/min (>60) L 07/11/19 06:11 BUN/Creatinine Ratio 26.3 RATIO (10-20) H 07/11/19 06:11 Glucose 103 mg/dL (74-106) 07/11/19 06:11 Vancomycin Trough 16.3 ug/mL (5.0-15.0) H 07/11/19 10:30 Random Vancomycin 18.2 ug/mL (0.0-15.0) H 07/09/19 05:25 Microbiology: Microbiology 07/09/19 17:01 Bone - Leg Gram Stain - Final 07/09/19 17:01 Bone - Leg Wound Culture - Preliminary No growth-Final to follow 07/09/19 17:01 Tissue - Leg Gram Stain - Final 07/09/19 17:01 Tissue - Leg Wound Culture - Preliminary No growth-Final to follow 07/04/19 08:25 Bone - Other Gram Stain - Final 07/04/19 08:25 Bone - Other Wound Culture - Final Streptococcus agalactiae (B) Kocuria kristinae 07/04/19 08:25 Bone - Other Anaerobic Culture - Final No anaerobic bacteria isolated. 07/02/19 22:01 Wound - Ankle Gram Stain - Final 07/02/19 22:01 Wound - Ankle Wound Culture - Final Streptococcus agalactiae (B) 04/03/20 22:01 Wound - Ankle Anaerobic Culture - Final No anaerobic bacteria isolated. Weight used for dosin kg Goal Trough: 15-20 mcg/mL Pharmacy Plan for Drug Dosing: Pt's trough level resulted at 16.8. SrCr has improved from 2.09 to 1.86. Recommend continuing current dose of Vancomycin 500mg IV q24h and monitoring srcr. Trough level to be drawn /15 at 1030 Pharmacy Service will continue to monitor and adjust dosing as required. Follow-Up Labs: Trough Vancomycin - 415 at 1030
[2019-07-11 15:15] VITALS: BP 130/62; PULSE 81; RESP 18; TEMP 36.9; O2SAT 96
[2019-07-11 16:55] LABS: Bedside Glucose 135 mg/dL (70-110)
[2019-07-11] MEDS: Amitriptyline 25 MG Tablet PO (21:36)
[2019-07-11 21:43] VITALS: BP 132/44; PULSE 72; RESP 18; TEMP 36.7; O2SAT 94
[2019-07-11 21:46] LABS: Bedside Glucose 149 mg/dL (70-110)
[2019-07-12] MEDS: HYDROcodone Bitartrate/Apap 5/325 Tablet PO ×2 (03:39→13:59)
[2019-07-12 03:42] VITALS: BP 111/33; PULSE 80; RESP 18; TEMP 36.4; O2SAT 96
[2019-07-12 06:00] LABS: Hematocrit 26.6 % (37-47); Hemoglobin 8.5 g/dL (12.0-15.0); Mean Corpuscular Hgb 26.8 pg (27.0-32.0); Mean Corpuscular Volume 83.9 fL (81-99); Mean Platelet Vol. 8.9 fl (6.2-12.0); Platelet Count 361 K/mm3 (150-450); RBC Distribution Width CV 17.3 % (11.6-14.6); RBC Distribution Width SD 53.4 fl (35.1-43.9); Red Blood Count 3.17 M/mm3 (4.2-5.4); White Blood Count 23.3 K/mm3 (4.4-11.0)
[2019-07-12 06:06] LABS: Anion Gap 9 (5-15); BUN 56 mg/dL (7-18); BUN/Creat Ratio 28.7 RATIO (10-20); Calcium,Total 8.7 mg/dL (8.5-10.1); Chloride 109 mmol/L (98-107); Creatinine, Serum 1.95 mg/dL (0.55-1.02); EST Glomerular Filtration Rate 28 mL/min (>60); Est Glom Filt Rate - Afr Amer 34 mL/min (>60); Estimated Creatinine Clearance 28.36 ml/min; Glucose 111 mg/dL (74-106); Potassium 3.8 mmol/L (3.5-5.1); Sodium Level 136 mmol/L (136-145)
[2019-07-12] MEDS: Heparin Injection (Vial) 5,000 UNIT/ML VIAL 5000 UNIT SC ×3 (06:38→21:27)
[2019-07-12 08:01] LABS: Bedside Glucose 99 mg/dL (70-110)
[2019-07-12] MEDS: Allopurinol 300 MG Tablet PO (08:05)
[2019-07-12] MEDS: cycloBENZAPRine HCl 10 MG Tablet PO (08:05)
[2019-07-12] MEDS: Gabapentin 300 MG Capsule PO ×3 (08:06→17:37)
[2019-07-12] MEDS: Lactated Ringers 1,000 ML 100 ML IV (08:07)
--- NOTE | 2019-07-12 09:31 | CASEMGMT ---
PUJA spoke with patient and she confirmed she is in agreement with going to [facility] 4th Rehab Unit. PUJA told her we just need to wait on her insurance to give the ok. Plan: [facility] 4th floor Inpatient Rehab Unit Amanda PATTERSON
[2019-07-12 09:36] VITALS: BP 134/59; PULSE 68; RESP 16; TEMP 36.3; O2SAT 93
[2019-07-12] MEDS: Atenolol 50 MG Tablet PO (09:50)
[2019-07-12] MEDS: dilTIAZem CD 180 MG Capsule PO (09:50)
[2019-07-12] MEDS: Vancomycin IV 500 MG/100 ML BAG 100 MG IV (11:36)
--- NOTE | 2019-07-12 11:40 | PN_ITS ---
<Naila Lozada - Last Filed: 07/12/19 11:48> Patient Problems: Active and Suspected Problems (Last Reviewed 07/03/19 @ 01:[address] Darwin Lema MD) Osteomyelitis (Acute) Subjective: Patient seen and examined. Patient reports pain is currently tolerable. Agreeable to rehab, pending pre-cert. denies fever, chills. - Physical Exam Vitals/I&O's: Vital Signs Temp Pulse Resp BP Pulse Ox 97.4 F L 68 16 134/59 H 93 07/12/19 09:36 07/12/19 09:36 07/12/19 09:36 07/12/19 09:36 07/12/19 09:36 Oxygen Delivery Method Room Air Weight: 213 lb 4.791 oz Body Mass Index (BMI) 34.4 Finger Stick Blood Glucose 97 Intake and Output for Last 24 Hours 07/10/19 07/11/19 07/12/19 23:59 23:59 23:59 Intake Total 4104.99 / 4104.99 2150.00 / 2150.00 1151.67 / 1151.67 Output Total 1600 / 1630 1485 / 1485 2020 / 2020 Balance 2504.99 / 2474.99 665.00 / 665.00 -868.33 / -868.33 General: Alert, Oriented x3, Cooperative HEENT: Atraumatic, PERRLA, EOMI, Normocephalic Neck: Supple, No JVD, Negative Carotid Bruits Lungs: Clear to auscultation, Normal air movement Cardiovascular: Regular rate, Regular Rhythm, Normal S1, Normal S2, No murmurs Abdomen: Bowel Sounds Present, Soft, Non Tender, Non-Distended Extremities: No clubbing, No cyanosis, No edema, Capillary Refill Less than 3 Seconds Skin: No rashes, No breakdown, - - Left below the knee amputation, dressing intact Musculoskeletal: No Tenderness to Palpation of Joints or Extremities Neurological: Cranial nerves II-XII grossly intact, Neuro grossly intact Psych/Mental Status: Normal Affect, Appropriate Microbiology Past 72 Hours 07/09/19 17:01 Bone - Leg Gram Stain - Final 07/09/19 17:01 Bone - Leg Wound Culture - Preliminary No growth-Final to follow 07/09/19 17:01 Bone - Leg Anaerobic Culture - Preliminary No growth in 48 hours. 07/09/19 17:01 Tissue - Leg Gram Stain - Final 07/09/19 17:01 Tissue - Leg Wound Culture - Preliminary No growth-Final to follow 07/09/19 17:01 Tissue - Leg Anaerobic Culture - Preliminary No growth in 48 hours. Laboratory Results 07/11/19 16:53: POC Glucose 135 H 07/11/19 21:22: POC Glucose 149 H 07/12/19 05:33: WBC 23.3 H, RBC 3.17 L, Hgb 8.5 L, Hct 26.6 L, MCV 83.9, MCH 26.8 L, MCHC 32.0, RDW Std Deviation 53.4 H, RDW Coeff of Racheal 17.3 H, Plt Count 361, MPV 8.9 07/12/19 05:33: Sodium 136, Potassium 3.8, Chloride 109 H, Carbon Dioxide 18.0 L , Anion Gap 9, BUN 56 H, Creatinine 1.95 H, Estim Creat Clear Calc 28.36, Est GFR (MDRD) Af Amer 34 L, Est GFR (MDRD) Non-Af 28 L, BUN/Creatinine Ratio 28.7 H , Glucose 111 H, Calcium 8.7 07/12/19 06:37: POC Glucose 99 Current Medications Hydrocodone Bitart/Acetaminophen ([place] 5mg-325mg) 2 tablet PO Q4H PRN PRN PRN Reason: Pain Score 1-10/10 Last Admin: 07/12/19 03:39 Dose: 2 tablet Documented by: [facility] Last Admin: 07/12/19 08:05 Dose: 300 mg Documented by: Amitriptyline HCl (Elavil) 25 mg PO QHS [facility] Last Admin: 07/11/19 21:36 Dose: 25 mg Documented by: Atenolol (Tenormin (Beta Jona)) 50 mg PO DAILY [facility] Last Admin: 07/12/19 09:50 Dose: 50 mg Documented by: Cyclobenzaprine HCl (Flexeril) 10 mg PO TID PRN PRN PRN Reason: muscle spasm Last Admin: 07/12/19 08:05 Dose: 10 mg Documented by: Dextrose (D50w Syringe) 0 gm IV X1 PRN; Protocol PRN Reason: Hypoglycemia Diazepam (Valium) 5 mg PO 4X/DAY PRN PRN PRN Reason: SPASMS Last Admin: 07/09/19 19:13 Dose: 5 mg Documented by: Diltiazem HCl (Cardizem Cd) 180 mg PO DAILY [facility] Last Admin: 07/12/19 09:50 Dose: 180 mg Documented by: Ferrous Sulfate (Ferrous Sulfate) 325 mg PO 1200,1700 [facility] Last Admin: 07/11/19 17:11 Dose: 325 mg Documented by: Gabapentin (Neurontin) 300 mg PO TIDCM [facility] Last Admin: 07/12/19 08:06 Dose: 300 mg Documented by: Glucagon () 1 mg IM .X1 PRN PRN Reason: Hypoglycemia Heparin Sodium (Porcine) (Heparin Na) 5,000 unit SC Q8 [facility] Last Admin: 07/12/19 06:38 Dose: 5,000 unit Documented by: Hydromorphone HCl (Dilaudid Inj) 1 mg IV Q3H PRN PRN PRN Reason: Pain Score 6-10/10 Last Admin: 07/10/19 12:16 Dose: 1 mg Documented by: Sodium Chloride () 250 mls @ 15 mls/hr IV .[id number] PRN PRN Reason: Additional IVPB Infusion Ceftriaxone Sodium 2 gm/ (Sodium Chloride) 50 mls @ 100 mls/hr IV Q24 [facility] Last Admin: 07/12/19 09:38 Dose: 100 mls/hr Documented by: Vancomycin IV Pharmacy to Dose (1 ea/ Sodium Chloride) 500 mls @ 250 mls/hr IV X1 PRN; Protocol PRN Reason: Rx to Dose Vancomycin HCl () 500 mg in 100 mls @ 100 mls/hr IV Q24H [facility] Last Infusion: 07/11/19 11:58 Dose: Infused Documented by: Lactated Ringer's () 1,000 mls @ 100 mls/hr IV .Q10H [facility] Last Infusion: 07/12/19 09:38 Dose: 0 mls/hr Documented by: Insulin Human Lispro (Humalog Kwikpen (Bkc)) 0 unit SC ACHS [facility]; Protocol Last Admin: 07/12/19 06:38 Dose: Not Given Documented by: Lactobacillus Acidophilus (Acidophilus) 1 tablet PO TID [facility] Last Admin: 07/12/19 06:38 Dose: 1 tablet Documented by: Lorazepam (Ativan) 1 mg PO Q8H PRN PRN PRN Reason: ANXIETY Melatonin (Melatonin) 3 mg PO QHS PRN PRN PRN Reason: INSOMNIA Last Admin: 07/03/19 00:31 Dose: 3 mg Documented by: Miconazole Nitrate (Monistat 7) 1 applic VAGINAL QHS [facility] Last Admin: 07/11/19 21:26 Dose: Not Given Documented by: Mupirocin (Bactroban) 1 applic TOPICAL DAILY [facility]; Protocol Nutritional Formula (Pancho - [place] Flavor) 1 packet PO BIDCM [facility] Last Admin: 07/12/19 08:04 Dose: 1 packet Documented by: Ondansetron HCl (Zofran) 4 mg IV Q8H PRN PRN PRN Reason: NAUSEA/VOMITING Last Admin: 07/10/19 12:00 Dose: 4 mg Documented by: Sodium Chloride () 10 - 40 ml IV UD PRN PRN Reason: SALINE FLUSH Last Admin: 07/09/19 17:55 Dose: 10 ml Documented by: Medical Necessity - Tobacco Use Smoking Status: Current every day smoker Assessment/Plan All Active Problems (Last Reviewed 07/03/19 @ 01:[address] Darwin Lema MD) Type 2 diabetes mellitus with diabetic polyneuropathy (Acute) Other specified peripheral vascular diseases (Acute) Cutaneous abscess of left ankle (Acute) Cellulitis and abscess of left lower extremity (Acute) Cellulitis and abscess of right lower extremity (Acute) Osteomyelitis (Acute) Acute osteomyelitis involving ankle and foot (Acute) Diabetic foot ulcer associated with type 2 diabetes mellitus (Acute) Tobacco abuse counseling (Acute) 1. Left ankle osteomyelitis, recurrent infections-status post I&D left ankle 07/04/2019. Cultures growing Streptococcus agalactiae and kocuria kristinae. I nfectious disease, podiatry and plastics following. History of multiple infections in the past with MRSA, Pseudomonas. Patient has been wheelchair- bound due to unstable floppy ankle with previous removal of hardware October 2018. Left below the knee amputation by Dr. Ray 07/09/2019. Continue IV vancomycin and IV Rocephin. PT/OT. Patient complaining of phantom pain. Already on gabapentin. Initiated on amitriptyline 25 mg nightly. Plan for Rehab unit pending insurance approval. Await ID recommendations on oral abx transition. 2. Acute on chronic normocytic anemia-S/P 2 units PRBC for hemoglobin 7.9. Patient reports a history of iron deficiency anemia. Prior iron studies consistent with iron deficiency. Continue iron supplementation. Trend CBC. Hemoglobin stable. 3. Acute kidney injury on chronic kidney disease stage IV-acute kidney injury resolved. Continue outpatient follow-up with nephrology. 4. Type 2 diabetes mellitus-diet controlled at home. Hemoglobin A1c 6.5%. Ac cu-Cheks with sliding scale insulin. 5. History of gout-continue allopurinol. 6. Hypertension-continue atenolol, cardizem. MIGUEL inhibitor on hold. 7. Tobacco dependence- encouraged cessation. DVT prophylaxis- heparin sc This patient was seen by ELIAS Delgado under the supervision of Dr. Roland. <Stephanie Roland - Last Filed: 07/12/19 12:38> - Physical Exam Vitals/I&O's: Vital Signs Temp Pulse Resp BP Pulse Ox 97.4 F L 68 16 134/59 H 93 07/12/19 09:36 07/12/19 09:36 07/12/19 09:36 07/12/19 09:36 07/12/19 09:36 Oxygen Delivery Method Room Air Weight: 96.751 kg Body Mass Index (BMI) 34.4 Finger Stick Blood Glucose 97 Intake and Output for Last 24 Hours 07/10/19 07/11/19 07/12/19 23:59 23:59 23:59 Intake Total 4104.99 / 4104.99 2150.00 / 2150.00 1346.67 / 1346.67 Output Total 1600 / 1630 1485 / 1485 2019 / 2019 Balance 2504.99 / 2474.99 665.00 / 665.00 -673.33 / -673.33 Microbiology Past 72 Hours 07/09/19 17:01 Bone - Leg Gram Stain - Final 07/09/19 17:01 Bone - Leg Wound Culture - Preliminary No growth-Final to follow 07/09/19 17:01 Bone - Leg Anaerobic Culture - Preliminary No growth in 48 hours. 07/09/19 17:01 Tissue - Leg Gram Stain - Final 07/09/19 17:01 Tissue - Leg Wound Culture - Preliminary No growth-Final to follow 07/09/19 17:01 Tissue - Leg Anaerobic Culture - Preliminary No growth in 48 hours. Laboratory Results 07/11/19 06:11: Vitamin B12 > 2000 H 07/11/19 16:53: POC Glucose 135 H 07/11/19 21:22: POC Glucose 149 H 07/12/19 05:33: WBC 23.3 H, RBC 3.17 L, Hgb 8.5 L, Hct 26.6 L, MCV 83.9, MCH 26.8 L, MCHC 32.0, RDW Std Deviation 53.4 H, RDW Coeff of Racheal 17.3 H, Plt Count 361, MPV 8.9 07/12/19 05:33: Sodium 136, Potassium 3.8, Chloride 109 H, Carbon Dioxide 18.0 L , Anion Gap 9, BUN 56 H, Creatinine 1.95 H, Estim Creat Clear Calc 28.36, Est GFR (MDRD) Af Amer 34 L, Est GFR (MDRD) Non-Af 28 L, BUN/Creatinine Ratio 28.7 H , Glucose 111 H, Calcium 8.7 07/12/19 06:37: POC Glucose 99 07/12/19 11:35: POC Glucose 100 Current Medications Hydrocodone Bitart/Acetaminophen ([place] 5mg-325mg) 2 tablet PO Q4H PRN PRN PRN Reason: Pain Score 1-10 Last Admin: 07/12/19 03:39 Dose: 2 tablet Documented by: [facility]rim) [facility] Last Admin: 07/12/19 08:05 Dose: 300 mg Documented by: Amitriptyline HCl (Elavil) 25 mg PO QHS [facility] Last Admin: 07/11/19 21:36 Dose: 25 mg Documented by: Atenolol (Tenormin (Beta Jona)) 50 mg PO DAILY [facility] Last Admin: 07/12/19 09:50 Dose: 50 mg Documented by: Cyclobenzaprine HCl (Flexeril) 10 mg PO TID PRN PRN PRN Reason: muscle spasm Last Admin: 07/12/19 08:05 Dose: 10 mg Documented by: Dextrose (D50w Syringe) 0 gm IV X1 PRN; Protocol PRN Reason: Hypoglycemia Diazepam (Valium) 5 mg PO 4X/DAY PRN PRN PRN Reason: SPASMS Last Admin: 04/10/20 19:13 Dose: 5 mg Documented by: Diltiazem HCl (Cardizem Cd) 180 mg PO DAILY [facility] Last Admin: 07/12/19 09:50 Dose: 180 mg Documented by: Ferrous Sulfate (Ferrous Sulfate) 325 mg PO 1200,1700 [facility] Last Admin: 07/12/19 11:41 Dose: 325 mg Documented by: Gabapentin (Neurontin) 300 mg PO TIDCM [facility] Last Admin: 07/12/19 11:41 Dose: 300 mg Documented by: Glucagon () 1 mg IM .X1 PRN PRN Reason: Hypoglycemia Heparin Sodium (Porcine) (Heparin Na) 5,000 unit SC Q8 [facility] Last Admin: 07/12/19 06:38 Dose: 5,000 unit Documented by: Hydromorphone HCl (Dilaudid Inj) 1 mg IV Q3H PRN PRN PRN Reason: Pain Score 6-10/10 Last Admin: 07/10/19 12:16 Dose: 1 mg Documented by: Sodium Chloride () 250 mls @ 15 mls/hr IV .[id number] PRN PRN Reason: Additional IVPB Infusion Ceftriaxone Sodium 2 gm/ (Sodium Chloride) 50 mls @ 100 mls/hr IV Q24 [facility] Last Infusion: 07/12/19 10:09 Dose: Infused Documented by: Vancomycin IV Pharmacy to Dose (1 ea/ Sodium Chloride) 500 mls @ 250 mls/hr IV X1 PRN; Protocol PRN Reason: Rx to Dose Vancomycin HCl () 500 mg in 100 mls @ 100 mls/hr IV Q24H [facility] Last Admin: 07/12/19 11:36 Dose: 100 mls/hr Documented by: Lactated Ringer's () 1,000 mls @ 100 mls/hr IV .Q10H [facility] Last Infusion: 07/12/19 11:36 Dose: 0 mls/hr Documented by: Insulin Human Lispro (Humalog Kwikpen (Bkc)) 0 unit SC ACHS [facility]; Protocol Last Admin: 07/12/19 11:37 Dose: Not Given Documented by: Lactobacillus Acidophilus (Acidophilus) 1 tablet PO TID [facility] Last Admin: 07/12/19 06:38 Dose: 1 tablet Documented by: Lorazepam (Ativan) 1 mg PO Q8H PRN PRN PRN Reason: ANXIETY Melatonin (Melatonin) 3 mg PO QHS PRN PRN PRN Reason: INSOMNIA Last Admin: 07/03/19 00:31 Dose: 3 mg Documented by: Miconazole Nitrate (Monistat 7) 1 applic VAGINAL QHS [facility] Last Admin: 07/11/19 21:26 Dose: Not Given Documented by: Mupirocin (Bactroban) 1 applic TOPICAL DAILY [facility]; Protocol Last Admin: 07/12/19 11:37 Dose: Not Given Documented by: Nutritional Formula (Pancho - [place] Flavor) 1 packet PO BIDCM [facility] Last Admin: 07/12/19 08:04 Dose: 1 packet Documented by: Ondansetron HCl (Zofran) 4 mg IV Q8H PRN PRN PRN Reason: NAUSEA/VOMITING Last Admin: 07/10/19 12:00 Dose: 4 mg Documented by: Sodium Chloride () 10 - 40 ml IV UD PRN PRN Reason: SALINE FLUSH Last Admin: 07/09/19 17:55 Dose: 10 ml Documented by: Assessment/Plan This patient was seen in conjunction with Naila Lozada [employer]. I have independently interviewed and examined the patient and reviewed pertinent historical, laboratory, and other data. Please refer to her note for patient's presentation, findings, and recommendations. Patient was seen and examined. She complains of some pain in her left leg. Denies any fever or chills. No acute events overnight. Waiting on discharge to acute rehab. Vitals were reviewed -stable Physical Exam: Gen: Comfortable, not pale, not jaundiced, alert oriented x3 CVS:HS I +II, regular, no murmurs RESP: CTA GI: BS present and normal, nontender, no palpable organs EXT:No edema Labs reviewed: ASSESSMENT: 1. Left ankle osteomyelitis, h/o recurrent infections, s/p I &D left ankle 2. Acute on chronic s/p 1 unit pRBc, Hb is 8.5 3. JOEY on CKD stage 3 4. Type 2 DM 5. H/o gout 6. Hypertension 7. Nicotine dependence Meds reviewed Plan: Continue on IV vancomycin/ceftriaxone Continue on IVF Repeat labs in am Discharge to acute rehab when bed is available Inpatient E&M: 93803 Subs Hosp L2
--- NOTE | 2019-07-12 11:40 | NURSING ---
wound photo: left BKA
[2019-07-12] MEDS: Ferrous Sulfate 325 MG Tablet PO ×2 (11:41→17:37)
--- NOTE | 2019-07-12 11:41 | NURSING ---
Addendum entered by Mary Collins 07/12/19 14:13: left BKA Original Note: wound photo: right BKA
[2019-07-12 11:46] LABS: Bedside Glucose 100 mg/dL (70-110)
[2019-07-12 12:01] LABS: Vitamin B12 > 2000 pg/mL (211-911)
[2019-07-12 13:36] LABS: CPK Total, Creatine Kinase 21 U/L (26-192); LDH 155 U/L (84-246)
[2019-07-12 13:47] LABS: AST(SGOT) 11 U/L (15-37)
[2019-07-12 13:48] LABS: Erythrocyte Sedimentation Rate 90 mm/hr (0-30)
--- NOTE | 2019-07-12 15:01 | PCM.PN.ID ---
Patient Problems: Active and Suspected Problems (Last Reviewed 07/03/19 @ 01:[address] Darwin Lema MD) Osteomyelitis (Acute) Subjective: Feeling ok, overall better than before, no fever, no n/v/d. Some pain in LLE. - Physical Exam Vitals/I&O's: Vital Signs Temp Pulse Resp BP Pulse Ox 97.4 F L 68 16 134/59 H 93 07/12/19 09:36 07/12/19 09:36 07/12/19 09:36 07/12/19 09:36 07/12/19 09:36 Oxygen Delivery Method Room Air Weight: 96.751 kg Body Mass Index (BMI) 34.4 Finger Stick Blood Glucose 97 Intake and Output for Last 24 Hours 07/10/19 07/11/19 07/12/19 23:59 23:59 23:59 Intake Total 4104.99 / 4104.99 2150.00 / 2150.00 1446.67 / 1446.67 Output Total 1600 / 1630 1485 / 1485 2040 / 2040 Balance 2504.99 / 2474.99 665.00 / 665.00 -593.33 / -593.33 General: Alert, Cooperative, No apparent distress Lungs: Clear to auscultation, Normal air movement Cardiovascular: Regular rate, Regular Rhythm Abdomen: Soft, Non Tender, Non-Distended Skin: Ulcer/ Wound - reviewed photo Microbiology Past 72 Hours 07/09/19 17:01 Bone - Leg Gram Stain - Final 07/09/19 17:01 Bone - Leg Wound Culture - Preliminary No growth-Final to follow 07/09/19 17:01 Bone - Leg Anaerobic Culture - Preliminary No growth in 48 hours. 07/09/19 17:01 Tissue - Leg Gram Stain - Final 07/09/19 17:01 Tissue - Leg Wound Culture - Preliminary No growth-Final to follow 07/09/19 17:01 Tissue - Leg Anaerobic Culture - Preliminary No growth in 48 hours. Laboratory Results 07/11/19 06:11: Vitamin B12 > 2000 H 07/11/19 10:30: Aldolase Pending 07/11/19 16:53: POC Glucose 135 H 07/11/19 21:22: POC Glucose 149 H 07/12/19 05:33: WBC 23.3 H, RBC 3.17 L, Hgb 8.5 L, Hct 26.6 L, MCV 83.9, MCH 26.8 L, MCHC 32.0, RDW Std Deviation 53.4 H, RDW Coeff of Racheal 17.3 H, Plt Count 361, MPV 8.9 07/12/19 05:33: Sodium 136, Potassium 3.8, Chloride 109 H, Carbon Dioxide 18.0 L, Anion Gap 9, BUN 56 H, Creatinine 1.95 H, Estim Creat Clear Calc 28.36, Est GFR (MDRD) Af Amer 34 L, Est GFR (MDRD) Non-Af 28 L, BUN/Creatinine Ratio 28.7 H, Glucose 111 H, Calcium 8.7 07/12/19 05:33: Lactate Dehydrogenase 155, Total Creatine Kinase 21 L 07/12/19 05:33: ESR 90 H 07/12/19 05:33: AST 11 L 07/12/19 06:37: POC Glucose 99 07/12/19 11:35: POC Glucose 100 Current Medications Hydrocodone Bitart/Acetaminophen ([place] 5mg-325mg) 2 tablet PO Q4H PRN PRN PRN Reason: Pain Score 1-10/10 Last Admin: 07/12/19 13:59 Dose: 2 tablet Documented by: [facility] ([facility]yloprim) [facility] Last Admin: 07/12/19 08:05 Dose: 300 mg Documented by: Amitriptyline HCl (Elavil) 25 mg PO QHS [facility] Last Admin: 07/11/19 21:36 Dose: 25 mg Documented by: Atenolol (Tenormin (Beta Jona)) 50 mg PO DAILY [facility] Last Admin: 07/12/19 09:50 Dose: 50 mg Documented by: Cyclobenzaprine HCl (Flexeril) 10 mg PO TID PRN PRN PRN Reason: muscle spasm Last Admin: 07/12/19 08:05 Dose: 10 mg Documented by: Dextrose (D50w Syringe) 0 gm IV X1 PRN; Protocol PRN Reason: Hypoglycemia Diltiazem HCl (Cardizem Cd) 180 mg PO DAILY [facility] Last Admin: 07/12/19 09:50 Dose: 180 mg Documented by: Ferrous Sulfate (Ferrous Sulfate) 325 mg PO 1200,1700 [facility] Last Admin: 07/12/19 11:41 Dose: 325 mg Documented by: Gabapentin (Neurontin) 300 mg PO TIDCM [facility] Last Admin: 07/12/19 11:41 Dose: 300 mg Documented by: Glucagon () 1 mg IM .X1 PRN PRN Reason: Hypoglycemia Heparin Sodium (Porcine) (Heparin Na) 5,000 unit SC Q8 [facility] Last Admin: 07/12/19 13:53 Dose: 5,000 unit Documented by: Hydromorphone HCl (Dilaudid Inj) 1 mg IV Q3H PRN PRN PRN Reason: Pain Score 6-10/10 Last Admin: 07/10/19 12:16 Dose: 1 mg Documented by: Sodium Chloride () 250 mls @ 15 mls/hr IV .[id number] PRN PRN Reason: Additional IVPB Infusion Ceftriaxone Sodium 2 gm/ (Sodium Chloride) 50 mls @ 100 mls/hr IV Q24 [facility] Last Infusion: 07/12/19 10:09 Dose: Infused Documented by: Vancomycin IV Pharmacy to Dose (1 ea/ Sodium Chloride) 500 mls @ 250 mls/hr IV X1 PRN; Protocol PRN Reason: Rx to Dose Vancomycin HCl () 500 mg in 100 mls @ 100 mls/hr IV Q24H [facility] Last Infusion: 07/12/19 12:37 Dose: Infused Documented by: Lactated Ringer's () 1,000 mls @ 100 mls/hr IV .Q10H [facility] Last Infusion: 07/12/19 12:37 Dose: 100 mls/hr Documented by: Insulin Human Lispro (Humalog Kwikpen (Bkc)) 0 unit SC ACHS [facility]; Protocol Last Admin: 07/12/19 11:37 Dose: Not Given Documented by: Lactobacillus Acidophilus (Acidophilus) 1 tablet PO TID [facility] Last Admin: 07/12/19 13:54 Dose: 1 tablet Documented by: Melatonin (Melatonin) 3 mg PO QHS PRN PRN PRN Reason: INSOMNIA Last Admin: 07/03/19 00:31 Dose: 3 mg Documented by: Miconazole Nitrate (Monistat 7) 1 applic VAGINAL QHS [facility] Last Admin: 07/11/19 21:26 Dose: Not Given Documented by: Mupirocin (Bactroban) 1 applic TOPICAL DAILY [facility]; Protocol Last Admin: 07/12/19 11:37 Dose: Not Given Documented by: Nutritional Formula (Pancho - [place] Flavor) 1 packet PO BIDCM [facility] Last Admin: 07/12/19 08:04 Dose: 1 packet Documented by: Ondansetron HCl (Zofran) 4 mg IV Q8H PRN PRN PRN Reason: NAUSEA/VOMITING Last Admin: 07/10/19 12:00 Dose: 4 mg Documented by: Sodium Chloride () 10 - 40 ml IV UD PRN PRN Reason: SALINE FLUSH Last Admin: 07/09/19 17:55 Dose: 10 ml Documented by: Medical Necessity - Tobacco Use Smoking Status: Current every day smoker Route of nutrition/ use of supplements: [] Nutritional Intake: [] IV Site: [] Gardner Catheter: [] - Assessment/Plan Antibiotics: [] Assessment/Plan: [] Active and Suspected Problems (Last Reviewed 07/03/19 @ 01:[address] Darwin Lema MD) Cellulitis and abscess of right lower extremity (Acute) Osteomyelitis (Acute) LLE osteo - prior cxs with MRSA and PsA. Cx here with kocuria and strep. Taken for L BKA by Dr. Ray on 07/08. Incision doing well. On vanc/ceftriaxone, plan on stopping abx tomorrow. Will follow. D/w primary team.
[2019-07-12 15:02] VITALS: BP 145/59; PULSE 76; RESP 18; TEMP 38.3; O2SAT 94
[2019-07-12 17:19] VITALS: TEMP 37
[2019-07-12 17:25] LABS: Bedside Glucose 126 mg/dL (70-110)
--- NOTE | 2019-07-12 19:44 | PCM.PN.SRG ---
Patient Problems: Active and Suspected Problems (Last Reviewed 07/03/19 @ 01:[address] Darwin Lema MD) Osteomyelitis (Acute) Subjective: Postop #3 Patient is resting comfortably. - Physical Exam Vitals/I&O's: Vital Signs Temp Pulse Resp BP Pulse Ox 98.6 F 76 18 145/59 H 94 07/12/19 17:19 07/12/19 15:02 07/12/19 15:02 07/12/19 15:02 07/12/19 15:02 Oxygen Flow Rate (L/min) 2 Oxygen Delivery Method Nasal Cannula Weight: 213 lb 4.791 oz Body Mass Index (BMI) 34.4 Finger Stick Blood Glucose 97 Intake and Output for Last 24 Hours 07/10/19 07/11/19 07/12/19 23:59 23:59 23:59 Intake Total 4104.99 / 4104.99 2150.00 / 2150.00 1685.00 / 1685.00 Output Total 1600 / 1630 1485 / 1485 2040 / 2040 Balance 2504.99 / 2474.99 665.00 / 665.00 -355.00 / -355.00 Drainage 85 ml yesterday, 40 ml today. General: Alert, Oriented x3 HEENT: PERRLA, EOMI Oral: Moist Mucosa Neck: Supple Abdomen: Soft, Non-Distended Skin: Incision - left BKA stump incision dry and intact. No clinical evidence of hematoma. No vascular compromise noted on the skin flap. Neurological: Cranial nerves II-XII grossly intact Psych/Mental Status: Normal Affect, Appropriate Microbiology Past 72 Hours 07/09/19 17:01 Bone - Leg Gram Stain - Final 07/09/19 17:01 Bone - Leg Wound Culture - Preliminary No growth-Final to follow 07/09/19 17:01 Bone - Leg Anaerobic Culture - Preliminary No growth in 48 hours. 07/09/19 17:01 Tissue - Leg Gram Stain - Final 07/09/19 17:01 Tissue - Leg Wound Culture - Preliminary No growth-Final to follow 07/09/19 17:01 Tissue - Leg Anaerobic Culture - Preliminary No growth in 48 hours. Pathology - pending. Laboratory Results 07/11/19 06:11: Vitamin B12 > 2000 H 07/11/19 10:30: Aldolase Pending 07/11/19 21:22: POC Glucose 149 H 07/12/19 05:33: WBC 23.3 H, RBC 3.17 L, Hgb 8.5 L, Hct 26.6 L, MCV 83.9, MCH 26.8 L, MCHC 32.0, RDW Std Deviation 53.4 H, RDW Coeff of Racheal 17.3 H, Plt Count 361, MPV 8.9 07/12/19 05:33: Sodium 136, Potassium 3.8, Chloride 109 H, Carbon Dioxide 18.0 L, Anion Gap 9, BUN 56 H, Creatinine 1.95 H, Estim Creat Clear Calc 28.36, Est GFR (MDRD) Af Amer 34 L, Est GFR (MDRD) Non-Af 28 L, BUN/Creatinine Ratio 28.7 H, Glucose 111 H, Calcium 8.7 07/12/19 05:33: Lactate Dehydrogenase 155, Total Creatine Kinase 21 L 07/12/19 05:33: ESR 90 H 07/12/19 05:33: AST 11 L 07/12/19 06:37: POC Glucose 99 07/12/19 11:35: POC Glucose 100 07/12/19 17:15: POC Glucose 126 H Current Medications Hydrocodone Bitart/Acetaminophen (Faxon 5mg-325mg) 2 tablet PO Q4H PRN PRN PRN Reason: Pain Score 1-10/10 Last Admin: 07/12/19 13:59 Dose: 2 tablet Documented by: [facility] Admin: 07/12/19 08:05 Dose: 300 mg Documented by: Amitriptyline HCl (Elavil) 25 mg PO QHS COUNT INCLUDES THE [facility] Last Admin: 07/11/19 21:36 Dose: 25 mg Documented by: Atenolol (Tenormin (Beta Jona)) 50 mg PO DAILY COUNT INCLUDES THE [facility] Last Admin: 07/12/19 09:50 Dose: 50 mg Documented by: Cyclobenzaprine HCl (Flexeril) 10 mg PO TID PRN PRN PRN Reason: muscle spasm Last Admin: 07/12/19 08:05 Dose: 10 mg Documented by: Dextrose (D50w Syringe) 0 gm IV X1 PRN; Protocol PRN Reason: Hypoglycemia Diltiazem HCl (Cardizem Cd) 180 mg PO DAILY COUNT INCLUDES THE [facility] Last Admin: 07/12/19 09:50 Dose: 180 mg Documented by: Ferrous Sulfate (Ferrous Sulfate) 325 mg PO 1200,1700 COUNT INCLUDES THE [facility] Last Admin: 07/12/19 17:37 Dose: 325 mg Documented by: Gabapentin (Neurontin) 300 mg PO TIDCM COUNT INCLUDES THE [facility] Last Admin: 07/12/19 17:37 Dose: 300 mg Documented by: Glucagon () 1 mg IM .X1 PRN PRN Reason: Hypoglycemia Heparin Sodium (Porcine) (Heparin Na) 5,000 unit SC Q8 COUNT INCLUDES THE [facility] Last Admin: 07/12/19 13:53 Dose: 5,000 unit Documented by: Hydromorphone HCl (Dilaudid Inj) 1 mg IV Q3H PRN PRN PRN Reason: Pain Score 6-10/10 Last Admin: 07/10/19 12:16 Dose: 1 mg Documented by: Sodium Chloride () 250 mls @ 15 mls/hr IV .[id number] PRN PRN Reason: Additional IVPB Infusion Vancomycin HCl () 500 mg in 100 mls @ 100 mls/hr IV Q24H COUNT INCLUDES THE [facility] Last Infusion: 07/12/19 12:37 Dose: Infused Documented by: Insulin Human Lispro (Humalog Kwikpen (Bkc)) 0 unit SC ACHS COUNT INCLUDES THE [facility]; Protocol Last Admin: 07/12/19 17:31 Dose: Not Given Documented by: Lactobacillus Acidophilus (Acidophilus) 1 tablet PO TID COUNT INCLUDES THE [facility] Last Admin: 07/12/19 13:54 Dose: 1 tablet Documented by: Melatonin (Melatonin) 3 mg PO QHS PRN PRN PRN Reason: INSOMNIA Last Admin: 07/03/19 00:31 Dose: 3 mg Documented by: Miconazole Nitrate (Monistat 7) 1 applic VAGINAL QHS COUNT INCLUDES THE [facility] Last Admin: 07/11/19 21:26 Dose: Not Given Documented by: Mupirocin (Bactroban) 1 applic TOPICAL DAILY COUNT INCLUDES THE [facility]; Protocol Last Admin: 07/12/19 11:37 Dose: Not Given Documented by: Nutritional Formula (Pancho - [place] Flavor) 1 packet PO BIDCM COUNT INCLUDES THE [facility] Last Admin: 07/12/19 17:37 Dose: 1 packet Documented by: Ondansetron HCl (Zofran) 4 mg IV Q8H PRN PRN PRN Reason: NAUSEA/VOMITING Last Admin: 07/10/19 12:00 Dose: 4 mg Documented by: Medical Necessity - Tobacco Use Smoking Status: Current every day smoker Assessment/Plan All Active Problems (Last Reviewed 07/03/19 @ 01:[address] Darwin Lema MD) Type 2 diabetes mellitus with diabetic polyneuropathy (Acute) Other specified peripheral vascular diseases (Acute) Cutaneous abscess of left ankle (Acute) Cellulitis and abscess of left lower extremity (Acute) Cellulitis and abscess of right lower extremity (Acute) Osteomyelitis (Acute) Acute osteomyelitis involving ankle and foot (Acute) Diabetic foot ulcer associated with type 2 diabetes mellitus (Acute) Tobacco abuse counseling (Acute) 1. Nonhealing infected diabetic ulcer left ankle with abscess. 2. Osteomyelitis. 3. History of MRSA. 4. History of Pseudomonas. 5. Recurrent dislocation left ankle. 6. Late effect open fracture left ankle. 7. Late effect mechanical breakdown hardware fixation. 8. Diabetes mellitus. 9. Smoker. 10. s/p left below knee amputation. Patient is resting comfortably. Incision is dry and intact. No clinical evidence of hematoma. No vascular compromise noted on the skin flap. Continue Vancomycin and Ceftriaxone. Operative cultures are pending. Pathology is pending. Will remove drain in 10-14 days. Will remove the sutures in 3-4 weeks. She would benefit from a short stay at an ECF before going home because of the amputation. She had been in TCU before. However TCU is closed for possible Coronavirus overflow if needed. She is being evaluated for the Rehab floor. After discharge, can followup at the [facility]. Anticipate increased metabolic demands from the infection and the upcoming surgery. Prealbumin is 7.6. Encourage nutritional supplementation with protein to help the healing process. Her HgbA1c on admission was 6.5. Encouraged patient to stop smoking as it may have deleterious effects on wound healing.
[2019-07-12 20:50] VITALS: BP 140/65; PULSE 74; RESP 16; TEMP 36.8; O2SAT 100
[2019-07-12] MEDS: Amitriptyline 25 MG Tablet PO (21:27)
[2019-07-12 23:20] LABS: Bedside Glucose 96 mg/dL (70-110)
[2019-07-13 02:41] LABS: Bedside Glucose 98 mg/dL (70-110)
[2019-07-13 02:48] VITALS: BP 128/58; PULSE 68; RESP 18; TEMP 36.9; O2SAT 100
[2019-07-13] MEDS: HYDROcodone Bitartrate/Apap 5/325 Tablet PO ×3 (02:58→17:27)
[2019-07-13] MEDS: Heparin Injection (Vial) 5,000 UNIT/ML VIAL 5000 UNIT SC ×3 (05:19→22:33)
[2019-07-13 06:56] LABS: Bedside Glucose 87 mg/dL (70-110)
[2019-07-13 07:12] LABS: Hematocrit 26.4 % (37-47); Hemoglobin 8.1 g/dL (12.0-15.0); Mean Corp Hgb Conc 30.7 g/dL (32-36); Mean Corpuscular Hgb 26.6 pg (27.0-32.0); Mean Corpuscular Volume 86.6 fL (81-99); Platelet Count 373 K/mm3 (150-450); RBC Distribution Width CV 17.6 % (11.6-14.6); RBC Distribution Width SD 55.7 fl (35.1-43.9); Red Blood Count 3.05 M/mm3 (4.2-5.4); White Blood Count 22.9 K/mm3 (4.4-11.0)
[2019-07-13 07:48] LABS: Anion Gap 7 (5-15); BUN 60 mg/dL (7-18); BUN/Creat Ratio 29.3 RATIO (10-20); Calcium,Total 9.1 mg/dL (8.5-10.1); Chloride 106 mmol/L (98-107); Creatinine, Serum 2.05 mg/dL (0.55-1.02); EST Glomerular Filtration Rate 26 mL/min (>60); Est Glom Filt Rate - Afr Amer 32 mL/min (>60); Estimated Creatinine Clearance 26.98 ml/min; Glucose 102 mg/dL (74-106); Sodium Level 134 mmol/L (136-145)
[2019-07-13 07:51] VITALS: O2SAT 100
[2019-07-13 08:10] VITALS: BP 124/68; PULSE 63; RESP 18; TEMP 37.1; O2SAT 95
[2019-07-13] MEDS: Allopurinol 300 MG Tablet PO (08:15)
[2019-07-13] MEDS: Atenolol 50 MG Tablet PO (08:15)
[2019-07-13] MEDS: Gabapentin 300 MG Capsule PO ×3 (08:15→17:22)
[2019-07-13] MEDS: dilTIAZem CD 180 MG Capsule PO (08:16)
[2019-07-13] MEDS: Mupirocin Ointment 22gm Tube 1 APPLIC TOPICAL (08:17)
--- NOTE | 2019-07-13 08:51 | CASEMGMT ---
PUJA received a message from Nidia at [facility]. PUJA called Nidia back and left her a voice mail letting her know the plan is for [facility] Inpatient Rehab pending insurance approval. Amanda PATTERSON
[2019-07-13 09:35] LABS: Erythrocyte Sedimentation Rate 124 mm/hr (0-30)
--- NOTE | 2019-07-13 10:39 | PCM.PN.ID ---
Patient Problems: Active and Suspected Problems (Last Reviewed 07/03/19 @ 01:[address] Darwin Lema MD) Osteomyelitis (Acute) Subjective: Feeling ok, some pain in leg, no fever - Physical Exam Vitals/I&O's: Vital Signs Temp Pulse Resp BP Pulse Ox 98.8 F 63 18 124/68 H 95 07/13/19 08:10 07/13/19 08:10 07/13/19 08:10 07/13/19 08:10 07/13/19 08:10 Oxygen Flow Rate (L/min) 2 Oxygen Delivery Method Room Air Weight: 96.751 kg Body Mass Index (BMI) 34.4 Finger Stick Blood Glucose 97 Intake and Output for Last 24 Hours 07/11/19 07/12/19 07/13/19 23:59 23:59 23:59 Intake Total 2150.00 / 2150.00 1685.00 / 1685.00 800 / 800 Output Total 1485 / 1485 2040 / 2040 1175 / 1175 Balance 665.00 / 665.00 -355.00 / -355.00 -375 / -375 General: Alert, Cooperative, No apparent distress Lungs: Clear to auscultation, Normal air movement Cardiovascular: Regular rate, Regular Rhythm Abdomen: Soft, Non Tender, Non-Distended Skin: No rashes Microbiology Past 72 Hours 07/09/19 17:01 Bone - Leg Gram Stain - Final 07/09/19 17:01 Bone - Leg Wound Culture - Preliminary No growth-Final to follow 07/09/19 17:01 Bone - Leg Anaerobic Culture - Preliminary No growth in 48 hours. 07/09/19 17:01 Tissue - Leg Gram Stain - Final 07/09/19 17:01 Tissue - Leg Wound Culture - Preliminary No growth-Final to follow 07/09/19 17:01 Tissue - Leg Anaerobic Culture - Preliminary No growth in 48 hours. Laboratory Results 07/09/19 05:25: Crossmatch See Detail 07/11/19 06:11: Vitamin B12 > 2000 H 07/11/19 10:30: Aldolase Pending 07/12/19 05:33: Lactate Dehydrogenase 155, Total Creatine Kinase 21 L 07/12/19 05:33: ESR 90 H 07/12/19 05:33: AST 11 L 07/12/19 11:35: POC Glucose 100 07/12/19 17:15: POC Glucose 126 H 07/12/19 21:31: POC Glucose 96 07/13/19 02:38: POC Glucose 98 07/13/19 06:37: POC Glucose 87 07/13/19 06:55: WBC 22.9 H, RBC 3.05 L, Hgb 8.1 L, Hct 26.4 L, MCV 86.6, MCH 26.6 L, MCHC 30.7 L, RDW Std Deviation 55.7 H, RDW Coeff of Racheal 17.6 H, Plt Count 373, MPV 9.0 07/13/19 06:55: Sodium 134 L, Potassium 4.0, Chloride 106, Carbon Dioxide 21.0, Anion Gap 7, BUN 60 H, Creatinine 2.05 H, Estim Creat Clear Calc 26.98, Est GFR (MDRD) Af Amer 32 L, Est GFR (MDRD) Non-Af 26 L, BUN/Creatinine Ratio 29.3 H, Glucose 102, Calcium 9.1 07/13/19 06:55: ESR 124 H 07/13/19 06:55: C-React Prot Ext Range 227.00 H Current Medications Hydrocodone Bitart/Acetaminophen (Capron 5mg-325mg) 2 tablet PO Q4H PRN PRN PRN Reason: Pain Score 1-10/10 Last Admin: 07/13/19 07:35 Dose: 2 tablet Documented by: [facility]rim) [facility] Last Admin: 07/13/19 08:15 Dose: 300 mg Documented by: Amitriptyline HCl (Elavil) 25 mg PO QHS ON LICENSE OF [facility] Last Admin: 07/12/19 21:27 Dose: 25 mg Documented by: Atenolol (Tenormin (Beta Jona)) 50 mg PO DAILY ON LICENSE OF [facility] Last Admin: 07/13/19 08:15 Dose: 50 mg Documented by: Cyclobenzaprine HCl (Flexeril) 10 mg PO TID PRN PRN PRN Reason: muscle spasm Last Admin: 07/12/19 08:05 Dose: 10 mg Documented by: Dextrose (D50w Syringe) 0 gm IV X1 PRN; Protocol PRN Reason: Hypoglycemia Diltiazem HCl (Cardizem Cd) 180 mg PO DAILY ON LICENSE OF [facility] Last Admin: 07/13/19 08:16 Dose: 180 mg Documented by: Ferrous Sulfate (Ferrous Sulfate) 325 mg PO 1200,1700 ON LICENSE OF [facility] Last Admin: 07/12/19 17:37 Dose: 325 mg Documented by: Gabapentin (Neurontin) 300 mg PO TIDCM ON LICENSE OF [facility] Last Admin: 07/13/19 08:15 Dose: 300 mg Documented by: Glucagon () 1 mg IM .X1 PRN PRN Reason: Hypoglycemia Heparin Sodium (Porcine) (Heparin Na) 5,000 unit SC Q8 ON LICENSE OF [facility] Last Admin: 07/13/19 05:19 Dose: 5,000 unit Documented by: Hydromorphone HCl (Dilaudid Inj) 1 mg IV Q3H PRN PRN PRN Reason: Pain Score 6-10/10 Last Admin: 07/10/19 12:16 Dose: 1 mg Documented by: Sodium Chloride () 250 mls @ 15 mls/hr IV .[id number] PRN PRN Reason: Additional IVPB Infusion Insulin Human Lispro (Humalog Kwikpen (Bkc)) 0 unit SC ACHS ON LICENSE OF [facility]; Protocol Last Admin: 07/13/19 06:38 Dose: Not Given Documented by: Lactobacillus Acidophilus (Acidophilus) 1 tablet PO TID ON LICENSE OF [facility] Last Admin: 07/13/19 05:19 Dose: 1 tablet Documented by: Melatonin (Melatonin) 3 mg PO QHS PRN PRN PRN Reason: INSOMNIA Last Admin: 07/03/19 00:31 Dose: 3 mg Documented by: Miconazole Nitrate (Monistat 7) 1 applic VAGINAL QHS ON LICENSE OF [facility] Last Admin: 07/12/19 21:22 Dose: Not Given Documented by: Mupirocin (Bactroban) 1 applic TOPICAL DAILY ON LICENSE OF [facility]; Protocol Last Admin: 07/13/19 08:17 Dose: 1 applic Documented by: Nutritional Formula (Pancho - [place] Flavor) 1 packet PO BIDCM ON LICENSE OF [facility] Last Admin: 07/13/19 08:15 Dose: 1 packet Documented by: Ondansetron HCl (Zofran) 4 mg IV Q8H PRN PRN PRN Reason: NAUSEA/VOMITING Last Admin: 07/10/19 12:00 Dose: 4 mg Documented by: Medical Necessity - Tobacco Use Smoking Status: Current every day smoker Route of nutrition/ use of supplements: [] Nutritional Intake: [] IV Site: [] Gardner Catheter: [] - Assessment/Plan Antibiotics: [] Assessment/Plan: [] Active and Suspected Problems (Last Reviewed 07/03/19 @ 01:[address] Darwin Lema MD) Cellulitis and abscess of right lower extremity (Acute) Osteomyelitis (Acute) LLE osteo - prior cxs with MRSA and PsA. Cx here with kocuria and strep. Taken for L BKA by Dr. Ray on 07/08. Incision doing well. Surg cx neg so far. Now off abx. Will follow as needed
[2019-07-13] MEDS: Ferrous Sulfate 325 MG Tablet PO ×2 (11:42→17:22)
[2019-07-13 11:45] LABS: Bedside Glucose 104 mg/dL (70-110)
--- NOTE | 2019-07-13 13:38 | PN_ITS ---
<Naila Lozada - Last Filed: 07/13/19 13:44> Patient Problems: Active and Suspected Problems (Last Reviewed 07/03/19 @ 01:[address] Darwin Lema MD) Osteomyelitis (Acute) Subjective: Patient seen and examined. Reports she is still struggling emotionally with her amputation. Pain well controlled. Denies other complaints. Awaiting insurance approval for rehab. - Physical Exam Vitals/I&O's: Vital Signs Temp Pulse Resp BP Pulse Ox 98.8 F 63 18 124/68 H 95 07/13/19 08:10 07/13/19 08:10 07/13/19 08:10 07/13/19 08:10 07/13/19 08:10 Oxygen Flow Rate (L/min) 2 Oxygen Delivery Method Room Air Weight: 213 lb 4.791 oz Body Mass Index (BMI) 34.4 Finger Stick Blood Glucose 97 Intake and Output for Last 24 Hours 07/11/19 07/12/19 07/13/19 23:59 23:59 23:59 Intake Total 2150.00 / 2150.00 1685.00 / 1685.00 800 / 800 Output Total 1485 / 1485 2040 / 2040 1175 / 1175 Balance 665.00 / 665.00 -355.00 / -355.00 -375 / -375 General: Alert, Oriented x3, Cooperative HEENT: Atraumatic, PERRLA, EOMI, Normocephalic Neck: Supple, No JVD, Negative Carotid Bruits Lungs: Clear to auscultation, Normal air movement Cardiovascular: Regular rate, Regular Rhythm, Normal S1, Normal S2, No murmurs Abdomen: Bowel Sounds Present, Soft, Non Tender, Non-Distended Extremities: No clubbing, No cyanosis Skin: - - Left below the knee amputation, dressing intact Musculoskeletal: No Tenderness to Palpation of Joints or Extremities Neurological: Cranial nerves II-XII grossly intact, Neuro grossly intact Psych/Mental Status: Normal Affect, Appropriate Microbiology Past 72 Hours 07/09/19 17:01 Bone - Leg Gram Stain - Final 07/09/19 17:01 Bone - Leg Wound Culture - Preliminary No growth-Final to follow 07/09/19 17:01 Bone - Leg Anaerobic Culture - Preliminary No growth in 48 hours. 07/09/19 17:01 Tissue - Leg Gram Stain - Final 07/09/19 17:01 Tissue - Leg Wound Culture - Preliminary No growth-Final to follow 07/09/19 17:01 Tissue - Leg Anaerobic Culture - Preliminary No growth in 48 hours. Laboratory Results 07/09/19 05:25: Crossmatch See Detail 07/12/19 05:33: ESR 90 H 07/12/19 05:33: AST 11 L 07/12/19 17:15: POC Glucose 126 H 07/12/19 21:31: POC Glucose 96 07/13/19 02:38: POC Glucose 98 07/13/19 06:37: POC Glucose 87 07/13/19 06:55: WBC 22.9 H, RBC 3.05 L, Hgb 8.1 L, Hct 26.4 L, MCV 86.6, MCH 26.6 L, MCHC 30.7 L, RDW Std Deviation 55.7 H, RDW Coeff of Racheal 17.6 H, Plt Count 373, MPV 9.0 07/13/19 06:55: Sodium 134 L, Potassium 4.0, Chloride 106, Carbon Dioxide 21.0, Anion Gap 7, BUN 60 H, Creatinine 2.05 H, Estim Creat Clear Calc 26.98, Est GFR (MDRD) Af Amer 32 L, Est GFR (MDRD) Non-Af 26 L, BUN/Creatinine Ratio 29.3 H, Glucose 102, Calcium 9.1 07/13/19 06:55: ESR 124 H 07/13/19 06:55: C-React Prot Ext Range 227.00 H 07/13/19 11:41: POC Glucose 104 Current Medications Hydrocodone Bitart/Acetaminophen ([place] 5mg-325mg) 2 tablet PO Q4H PRN PRN PRN Reason: Pain Score 1-10/10 Last Admin: 07/13/19 07:35 Dose: 2 tablet Documented by: [facility] ([facility]op[facility]) [facility] Last Admin: 07/13/19 08:15 Dose: 300 mg Documented by: Amitriptyline HCl (Elavil) 25 mg PO QHS [facility] Last Admin: 07/12/19 21:27 Dose: 25 mg Documented by: Atenolol (Tenormin (Beta Jona)) 50 mg PO DAILY [facility] Last Admin: 04/14/20 08:15 Dose: 50 mg Documented by: Cyclobenzaprine HCl (Flexeril) 10 mg PO TID PRN PRN PRN Reason: muscle spasm Last Admin: 07/12/19 08:05 Dose: 10 mg Documented by: Dextrose (D50w Syringe) 0 gm IV X1 PRN; Protocol PRN Reason: Hypoglycemia Diltiazem HCl (Cardizem Cd) 180 mg PO DAILY [facility] Last Admin: 07/13/19 08:16 Dose: 180 mg Documented by: Ferrous Sulfate (Ferrous Sulfate) 325 mg PO 1200,1700 [facility] Last Admin: 07/13/19 11:42 Dose: 325 mg Documented by: Gabapentin (Neurontin) 300 mg PO TIDCM [facility] Last Admin: 07/13/19 11:43 Dose: 300 mg Documented by: Glucagon () 1 mg IM .X1 PRN PRN Reason: Hypoglycemia Heparin Sodium (Porcine) (Heparin Na) 5,000 unit SC Q8 [facility] Last Admin: 07/13/19 05:19 Dose: 5,000 unit Documented by: Hydromorphone HCl (Dilaudid Inj) 1 mg IV Q3H PRN PRN PRN Reason: Pain Score 6-10/10 Last Admin: 07/10/19 12:16 Dose: 1 mg Documented by: Sodium Chloride () 250 mls @ 15 mls/hr IV .[id number] PRN PRN Reason: Additional IVPB Infusion Insulin Human Lispro (Humalog Kwikpen (Bkc)) 0 unit SC ACHS [facility]; Protocol Last Admin: 07/13/19 11:42 Dose: Not Given Documented by: Lactobacillus Acidophilus (Acidophilus) 1 tablet PO TID [facility] Last Admin: 07/13/19 05:19 Dose: 1 tablet Documented by: Melatonin (Melatonin) 3 mg PO QHS PRN PRN PRN Reason: INSOMNIA Last Admin: 07/03/19 00:31 Dose: 3 mg Documented by: Miconazole Nitrate (Monistat 7) 1 applic VAGINAL QHS [facility] Last Admin: 07/12/19 21:22 Dose: Not Given Documented by: Mupirocin (Bactroban) 1 applic TOPICAL DAILY [facility]; Protocol Last Admin: 07/13/19 08:17 Dose: 1 applic Documented by: Nutritional Formula (Pancho - [place] Flavor) 1 packet PO BIDCM [facility] Last Admin: 07/13/19 08:15 Dose: 1 packet Documented by: Ondansetron HCl (Zofran) 4 mg IV Q8H PRN PRN PRN Reason: NAUSEA/VOMITING Last Admin: 07/10/19 12:00 Dose: 4 mg Documented by: Medical Necessity - Tobacco Use Smoking Status: Current every day smoker Assessment/Plan All Active Problems (Last Reviewed 07/03/19 @ 01:[address] Darwin Lema MD) Type 2 diabetes mellitus with diabetic polyneuropathy (Acute) Other specified peripheral vascular diseases (Acute) Cutaneous abscess of left ankle (Acute) Cellulitis and abscess of left lower extremity (Acute) Cellulitis and abscess of right lower extremity (Acute) Osteomyelitis (Acute) Acute osteomyelitis involving ankle and foot (Acute) Diabetic foot ulcer associated with type 2 diabetes mellitus (Acute) Tobacco abuse counseling (Acute) 1. Left ankle osteomyelitis, recurrent infections-status post I&D left ankle 07/04/2019. Cultures growing Streptococcus agalactiae and kocuria kristinae. Infectious disease, podiatry and plastics following. History of multiple infections in the past with MRSA, Pseudomonas. Patient has been wheelchair- bound due to unstable floppy ankle with previous removal of hardware October 2018. Left below the knee amputation by Dr. Ray 07/09/2019. Discontinue IV vancomycin and IV Rocephin. PT/OT. Patient complaining of phantom pain. Already on gabapentin. Initiated on amitriptyline 25 mg nightly. Plan for Rehab unit pending insurance approval. No need for further antibiotics per ID. 2. Acute on chronic normocytic anemia-S/P 2 units PRBC for hemoglobin 7.9. Patient reports a history of iron deficiency anemia. Prior iron studies consistent with iron deficiency. Continue iron supplementation. Trend CBC. Hemoglobin stable. 3. Acute kidney injury on chronic kidney disease stage IV-acute kidney injury resolved. Continue outpatient follow-up with nephrology. 4. Type 2 diabetes mellitus-diet controlled at home. Hemoglobin A1c 6.5%. Accu-Cheks with sliding scale insulin. 5. History of gout-continue allopurinol. 6. Hypertension-continue atenolol, cardizem. MIUGEL inhibitor on hold. 7. Tobacco dependence- encouraged cessation. 8. Questionable history of RA and lupus? Recommend outpatient rheumatology evaluation. DVT prophylaxis- heparin sc This patient was seen by Naila Neville, [employer]-C under the supervision of Dr. Roland. <Stephanie Roland - Last Filed: 07/13/19 14:36> - Physical Exam Vitals/I&O's: Vital Signs Temp Pulse Resp BP Pulse Ox 98.1 F 73 18 150/64 H 94 07/13/19 14:19 07/13/19 14:19 07/13/19 14:19 07/13/19 14:19 07/13/19 14:19 Oxygen Flow Rate (L/min) 2 Oxygen Delivery Method Room Air Weight: 96.751 kg Body Mass Index (BMI) 34.4 Finger Stick Blood Glucose 97 Intake and Output for Last 24 Hours 07/11/19 07/12/19 07/13/19 23:59 23:59 23:59 Intake Total 2150.00 / 2150.00 1685.00 / 1685.00 1200 / 1200 Output Total 1485 / 1485 2040 / 2040 1675 / 1675 Balance 665.00 / 665.00 -355.00 / -355.00 -475 / -475 Microbiology Past 72 Hours 07/09/19 17:01 Bone - Leg Gram Stain - Final 07/09/19 17:01 Bone - Leg Wound Culture - Preliminary No growth-Final to follow 07/09/19 17:01 Bone - Leg Anaerobic Culture - Preliminary No growth in 48 hours. 07/09/19 17:01 Tissue - Leg Gram Stain - Final 07/09/19 17:01 Tissue - Leg Wound Culture - Preliminary No growth-Final to follow 07/09/19 17:01 Tissue - Leg Anaerobic Culture - Preliminary No growth in 48 hours. Laboratory Results 07/09/19 05:25: Crossmatch See Detail 07/11/19 10:30: Aldolase 5.2 07/12/19 17:15: POC Glucose 126 H 07/12/19 21:31: POC Glucose 96 07/13/19 02:38: POC Glucose 98 07/13/19 06:37: POC Glucose 87 07/13/19 06:55: WBC 22.9 H, RBC 3.05 L, Hgb 8.1 L, Hct 26.4 L, MCV 86.6, MCH 26.6 L, MCHC 30.7 L, RDW Std Deviation 55.7 H, RDW Coeff of Racheal 17.6 H, Plt Count 373, MPV 9.0 07/13/19 06:55: Sodium 134 L, Potassium 4.0, Chloride 106, Carbon Dioxide 21.0, Anion Gap 7, BUN 60 H, Creatinine 2.05 H, Estim Creat Clear Calc 26.98, Est GFR (MDRD) Af Amer 32 L, Est GFR (MDRD) Non-Af 26 L, BUN/Creatinine Ratio 29.3 H, Glucose 102, Calcium 9.1 07/13/19 06:55: ESR 124 H 07/13/19 06:55: C-React Prot Ext Range 227.00 H 07/13/19 11:41: POC Glucose 104 Current Medications Hydrocodone Bitart/Acetaminophen ([place] 5mg-325mg) 2 tablet PO Q4H PRN PRN PRN Reason: Pain Score 1-10/10 Last Admin: 07/13/19 07:35 Dose: 2 tablet Documented by: Allopurinol ([facility]yloprim) [facility] Last Admin: 07/13/19 08:15 Dose: 300 mg Documented by: Amitriptyline HCl (Elavil) 25 mg PO QHS [facility] Last Admin: 07/12/19 21:27 Dose: 25 mg Documented by: Atenolol (Tenormin (Beta Jona)) 50 mg PO DAILY [facility] Last Admin: 07/13/19 08:15 Dose: 50 mg Documented by: Cyclobenzaprine HCl (Flexeril) 10 mg PO TID PRN PRN PRN Reason: muscle spasm Last Admin: 07/12/19 08:05 Dose: 10 mg Documented by: Dextrose (D50w Syringe) 0 gm IV X1 PRN; Protocol PRN Reason: Hypoglycemia Diltiazem HCl (Cardizem Cd) 180 mg PO DAILY [facility] Last Admin: 07/13/19 08:16 Dose: 180 mg Documented by: Ferrous Sulfate (Ferrous Sulfate) 325 mg PO 1200,1700 [facility] Last Admin: 07/13/19 11:42 Dose: 325 mg Documented by: Gabapentin (Neurontin) 300 mg PO TIDCM [facility] Last Admin: 07/13/19 11:43 Dose: 300 mg Documented by: Glucagon () 1 mg IM .X1 PRN PRN Reason: Hypoglycemia Heparin Sodium (Porcine) (Heparin Na) 5,000 unit SC Q8 [facility] Last Admin: 07/13/19 14:21 Dose: 5,000 unit Documented by: Hydromorphone HCl (Dilaudid Inj) 1 mg IV Q3H PRN PRN PRN Reason: Pain Score 6-10/10 Last Admin: 07/10/19 12:16 Dose: 1 mg Documented by: Sodium Chloride () 250 mls @ 15 mls/hr IV .[id number] PRN PRN Reason: Additional IVPB Infusion Insulin Human Lispro (Humalog Kwikpen (Bkc)) 0 unit SC ACHS [facility]; Protocol Last Admin: 07/13/19 11:42 Dose: Not Given Documented by: Lactobacillus Acidophilus (Acidophilus) 1 tablet PO TID [facility] Last Admin: 07/13/19 14:22 Dose: 1 tablet Documented by: Melatonin (Melatonin) 3 mg PO QHS PRN PRN PRN Reason: INSOMNIA Last Admin: 07/03/19 00:31 Dose: 3 mg Documented by: Miconazole Nitrate (Monistat 7) 1 applic VAGINAL QHS [facility] Last Admin: 07/12/19 21:22 Dose: Not Given Documented by: Mupirocin (Bactroban) 1 applic TOPICAL DAILY [facility]; Protocol Last Admin: 07/13/19 08:17 Dose: 1 applic Documented by: Nutritional Formula (Pancho - [place] Flavor) 1 packet PO BIDCM [facility] Last Admin: 07/13/19 08:15 Dose: 1 packet Documented by: Ondansetron HCl (Zofran) 4 mg IV Q8H PRN PRN PRN Reason: NAUSEA/VOMITING Last Admin: 07/10/19 12:00 Dose: 4 mg Documented by: Assessment/Plan This patient was seen in conjunction with Naila Lozada NP. I have independently interviewed and examined the patient and reviewed pertinent historical, laboratory, and other data. Please refer to her note for patient's presentation, findings, and recommendations. Patient was seen and examined. No acute events overnight. Waiting on discharge to acute rehab. Vitals were reviewed -stable Physical Exam: Gen: Comfortable, not pale, not jaundiced, alert oriented x3 CVS:HS I +II, regular, no murmurs RESP: CTA GI: BS present and normal, nontender, no palpable organs EXT:No edema, left BKA Labs reviewed: ASSESSMENT: 1. POD #4, s/p left BKA for Left ankle osteomyelitis, h/o recurrent infections, s/p I &D left ankle 2. Acute on chronic s/p 1 unit pRBc 3. JOEY on CKD stage 3 4. Type 2 DM 5. H/o gout 6. Hypertension 7. Nicotine dependence Meds reviewed Plan: Off IV antibiotics Discharge to acute rehab when bed is available Inpatient E&M: 26886 Subs Hosp L2
[2019-07-13 14:19] VITALS: BP 150/64; PULSE 73; RESP 18; TEMP 36.7; O2SAT 94
[2019-07-13 14:28] LABS: Aldolase 5.2 U/L (3.3-10.3)
[2019-07-13 17:25] LABS: Bedside Glucose 142 mg/dL (70-110)
--- NOTE | 2019-07-13 18:07 | PN.SURG_ITS ---
Patient Problems: Active and Suspected Problems (Last Reviewed 07/03/19 @ 01:[address] Darwin Lema MD) Osteomyelitis (Acute) Subjective: Postop #4 Patient is resting comfortably. - Physical Exam Vitals/I&O's: Vital Signs Temp Pulse Resp BP Pulse Ox 98.1 F 73 18 150/64 H 94 07/13/19 14:19 07/13/19 14:19 07/13/19 14:19 07/13/19 14:19 07/13/19 14:19 Oxygen Flow Rate (L/min) 2 Oxygen Delivery Method Room Air Weight: 213 lb 4.791 oz Body Mass Index (BMI) 34.4 Finger Stick Blood Glucose 97 Intake and Output for Last 24 Hours 07/11/19 07/12/19 07/13/19 23:59 23:59 23:59 Intake Total 2150.00 / 2150.00 1685.00 / 1685.00 1200 / 1200 Output Total 1485 / 1485 2040 / 2040 1675 / 1675 Balance 665.00 / 665.00 -355.00 / -355.00 -475 / -475 Drainage 40 ml yesterday, 25 ml today. General: Alert, Oriented x3 HEENT: PERRLA, EOMI Oral: Moist Mucosa Neck: Supple Abdomen: Soft, Non-Distended Skin: Incision - left BKA stump incision dry and intact. No clinical evidence of hematoma. No vascular compromise noted on the skin flap. Neurological: Cranial nerves II-XII grossly intact Psych/Mental Status: Normal Affect, Appropriate Microbiology Past 72 Hours 07/09/19 17:01 Bone - Leg Gram Stain - Final 07/09/19 17:01 Bone - Leg Wound Culture - Preliminary No growth-Final to follow 07/09/19 17:01 Bone - Leg Anaerobic Culture - Preliminary No growth in 48 hours. 07/09/19 17:01 Tissue - Leg Gram Stain - Final 07/09/19 17:01 Tissue - Leg Wound Culture - Preliminary No growth-Final to follow 07/09/19 17:01 Tissue - Leg Anaerobic Culture - Preliminary No growth in 48 hours. Pathology - pending. Laboratory Results 07/09/19 05:25: Crossmatch See Detail 07/11/19 10:30: Aldolase 5.2 07/12/19 21:31: POC Glucose 96 07/13/19 02:38: POC Glucose 98 07/13/19 06:37: POC Glucose 87 07/13/19 06:55: WBC 22.9 H, RBC 3.05 L, Hgb 8.1 L, Hct 26.4 L, MCV 86.6, MCH 26.6 L, MCHC 30.7 L, RDW Std Deviation 55.7 H, RDW Coeff of Racheal 17.6 H, Plt Count 373, MPV 9.0 07/13/19 06:55: Sodium 134 L, Potassium 4.0, Chloride 106, Carbon Dioxide 21.0, Anion Gap 7, BUN 60 H, Creatinine 2.05 H, Estim Creat Clear Calc 26.98, Est GFR (MDRD) Af Amer 32 L, Est GFR (MDRD) Non-Af 26 L, BUN/Creatinine Ratio 29.3 H, Glucose 102, Calcium 9.1 07/13/19 06:55: ESR 124 H 07/13/19 06:55: C-React Prot Ext Range 227.00 H 07/13/19 11:41: POC Glucose 104 07/13/19 17:16: POC Glucose 142 H Current Medications Hydrocodone Bitart/Acetaminophen ([place] 5mg-325mg) 2 tablet PO Q4H PRN PRN PRN Reason: Pain Score 1-10/10 Last Admin: 07/13/19 17:27 Dose: 2 tablet Documented by: [facility] Last Admin: 07/13/19 08:15 Dose: 300 mg Documented by: Amitriptyline HCl (Elavil) 25 mg PO QHS [facility] Last Admin: 07/12/19 21:27 Dose: 25 mg Documented by: Atenolol (Tenormin (Beta Jona)) 50 mg PO DAILY [facility] Last Admin: 07/13/19 08:15 Dose: 50 mg Documented by: Cyclobenzaprine HCl (Flexeril) 10 mg PO TID PRN PRN PRN Reason: muscle spasm Last Admin: 07/12/19 08:05 Dose: 10 mg Documented by: Dextrose (D50w Syringe) 0 gm IV X1 PRN; Protocol PRN Reason: Hypoglycemia Diltiazem HCl (Cardizem Cd) 180 mg PO DAILY [facility] Last Admin: 07/13/19 08:16 Dose: 180 mg Documented by: Ferrous Sulfate (Ferrous Sulfate) 325 mg PO 1200,1700 [facility] Last Admin: 07/13/19 17:22 Dose: 325 mg Documented by: Gabapentin (Neurontin) 300 mg PO TIDCM [facility] Last Admin: 07/13/19 17:22 Dose: 300 mg Documented by: Glucagon () 1 mg IM .X1 PRN PRN Reason: Hypoglycemia Heparin Sodium (Porcine) (Heparin Na) 5,000 unit SC Q8 [facility] Last Admin: 07/13/19 14:21 Dose: 5,000 unit Documented by: Hydromorphone HCl (Dilaudid Inj) 1 mg IV Q3H PRN PRN PRN Reason: Pain Score 6-10/10 Last Admin: 07/10/19 12:16 Dose: 1 mg Documented by: Sodium Chloride () 250 mls @ 15 mls/hr IV .[id number] PRN PRN Reason: Additional IVPB Infusion Insulin Human Lispro (Humalog Kwikpen (Bkc)) 0 unit SC ACHS [facility]; Protocol Last Admin: 07/13/19 17:17 Dose: Not Given Documented by: Lactobacillus Acidophilus (Acidophilus) 1 tablet PO TID [facility] Last Admin: 07/13/19 14:22 Dose: 1 tablet Documented by: Melatonin (Melatonin) 3 mg PO QHS PRN PRN PRN Reason: INSOMNIA Last Admin: 07/03/19 00:31 Dose: 3 mg Documented by: Miconazole Nitrate (Monistat 7) 1 applic VAGINAL QHS [facility] Last Admin: 07/12/19 21:22 Dose: Not Given Documented by: Mupirocin (Bactroban) 1 applic TOPICAL DAILY [facility]; Protocol Last Admin: 07/13/19 08:17 Dose: 1 applic Documented by: Nutritional Formula (Pancho - [place] Flavor) 1 packet PO BIDCM [facility] Last Admin: 07/13/19 17:21 Dose: 1 packet Documented by: Ondansetron HCl (Zofran) 4 mg IV Q8H PRN PRN PRN Reason: NAUSEA/VOMITING Last Admin: 07/10/19 12:00 Dose: 4 mg Documented by: Medical Necessity - Tobacco Use Smoking Status: Current every day smoker Assessment/Plan All Active Problems (Last Reviewed 07/03/19 @ 01:[address] Darwin Lema MD) Type 2 diabetes mellitus with diabetic polyneuropathy (Acute) Other specified peripheral vascular diseases (Acute) Cutaneous abscess of left ankle (Acute) Cellulitis and abscess of left lower extremity (Acute) Cellulitis and abscess of right lower extremity (Acute) Osteomyelitis (Acute) Acute osteomyelitis involving ankle and foot (Acute) Diabetic foot ulcer associated with type 2 diabetes mellitus (Acute) Tobacco abuse counseling (Acute) 1. Nonhealing infected diabetic ulcer left ankle with abscess. 2. Osteomyelitis. 3. History of MRSA. 4. History of Pseudomonas. 5. Recurrent dislocation left ankle. 6. Late effect open fracture left ankle. 7. Late effect mechanical breakdown hardware fixation. 8. Diabetes mellitus. 9. Smoker. 10. s/p left below knee amputation. Patient is resting comfortably. Incision is dry and intact. No clinical evidence of hematoma. No vascular compromise noted on the skin flap. Has been on Vancomycin and Ceftriaxone. Operative cultures are negative thus far. Antibiotics have been stopped. Pathology is pending. Will remove drain in 10-14 days. Will remove the sutures in 3-4 weeks. She would benefit from a short stay at an ECF before going home because of the amputation. She had been in TCU before. However TCU is closed for possible Cor onavirus overflow if needed. She is being evaluated for the Rehab floor. After discharge, can followup at the [facility]. Anticipate increased metabolic demands from the infection and the upcoming surgery. Prealbumin is 7.6. Encourage nutritional supplementation with protein to help the healing process. Her HgbA1c on admission was 6.5. Encouraged patient to stop smoking as it may have deleterious effects on wound healing.
[2019-07-13 20:31] VITALS: BP 134/66; PULSE 76; RESP 18; TEMP 37.1; O2SAT 96
[2019-07-13] MEDS: Amitriptyline 25 MG Tablet PO (22:29)
[2019-07-13 23:36] LABS: Bedside Glucose 129 mg/dL (70-110)
[2019-07-14 03:16] VITALS: BP 143/69; PULSE 69; RESP 18; TEMP 37.4; O2SAT 93
[2019-07-14 05:38] LABS: Hematocrit 28.3 % (37-47); Hemoglobin 8.8 g/dL (12.0-15.0); Mean Corp Hgb Conc 31.1 g/dL (32-36); Mean Corpuscular Hgb 26.6 pg (27.0-32.0); Mean Corpuscular Volume 85.5 fL (81-99); Mean Platelet Vol. 9.3 fl (6.2-12.0); Platelet Count 403 K/mm3 (150-450); RBC Distribution Width CV 17.5 % (11.6-14.6); RBC Distribution Width SD 54.9 fl (35.1-43.9); Red Blood Count 3.31 M/mm3 (4.2-5.4); White Blood Count 22.6 K/mm3 (4.4-11.0)
[2019-07-14 05:57] LABS: Anion Gap 10 (5-15); BUN 73 mg/dL (7-18); BUN/Creat Ratio 32.6 RATIO (10-20); Calcium,Total 9.3 mg/dL (8.5-10.1); Chloride 106 mmol/L (98-107); Creatinine, Serum 2.24 mg/dL (0.55-1.02); EST Glomerular Filtration Rate 24 mL/min (>60); Est Glom Filt Rate - Afr Amer 29 mL/min (>60); Estimated Creatinine Clearance 24.69 ml/min; Glucose 111 mg/dL (74-106); Potassium 3.9 mmol/L (3.5-5.1); Sodium Level 135 mmol/L (136-145)
[2019-07-14] MEDS: Heparin Injection (Vial) 5,000 UNIT/ML VIAL 5000 UNIT SC (06:35)
[2019-07-14 06:41] LABS: Bedside Glucose 97 mg/dL (70-110)
[2019-07-14 07:17] VITALS: O2SAT 93
[2019-07-14 08:35] VITALS: BP 132/51; PULSE 72; RESP 18; TEMP 37.2; O2SAT 97
[2019-07-14] MEDS: Atenolol 50 MG Tablet PO (08:35)
[2019-07-14] MEDS: dilTIAZem CD 180 MG Capsule PO (08:36)
[2019-07-14] MEDS: Gabapentin 300 MG Capsule PO (08:36)
[2019-07-14] MEDS: Allopurinol 300 MG Tablet PO (08:36)
[2019-07-14] MEDS: Mupirocin Ointment 22gm Tube 1 APPLIC TOPICAL (08:37)
--- NOTE | 2019-07-14 08:53 | PCM.DC ---
- Discharge Diagnoses Current Active Problems: Current Active and Chronic Problems (Last Reviewed 07/03/19 @ 01:[address] Darwin Lema MD) 1. Left ankle osteomyelitis s/p left BKA You will use the following diet at home:: Calorie/Carbohydrate Controlled (specify 1200, 1400, etc) Discharge Activity: Return to Normal Activity Call your doctor if your incision/area has: Continuous Slow Oozing, Sudden Increased Bleeding, Increased Pain/ Swelling, Increased Redness, Foul Smelling Discharge, Swelling at the incision site Call your doctor if you observe: Fever of 101 or Higher, Shortness of breath, Dizziness, Fainting spells, Chest pain Additional Instructions: Plan for Dr. Ray drain removal in 10 to 14 days with suture removal in 3 to 4 weeks. Osbaldo drain to bulb suction, nursing to empty and record output every 4 hours. Wound care: Cleanse left BKA incision with normal saline, pat dry. Place Adaptic along the incision and cover with dry dressing. Wrap with Kerlix and apply Lonnie wrap. Keep leg elevated as much as possible. Apply Bactroban ointment to left BKA stump at suture line daily during dressing change. Allergies/Adverse Reactions: Allergies aspirin Allergy (Verified 07/02/19 21:48) Hives latex Allergy (Verified 07/02/19 21:48) Hives Penicillins Allergy (Verified 07/02/19 21:48) Hives simvastatin Allergy (Verified 07/02/19 21:48) Unknown naproxen [From Aleve] Adverse Reaction (Severe, Verified 07/02/19 21:48) Kidney disease Stage 3 Medications to take at Discharge Atenolol [Tenormin (beta feliberto)] 50 mg PO DAILY 08/10/18 diltiazem HCl 180 mg capsule,extended release 24 hr 180 mg PO DAILY cap 12/15/18 cyclobenzaprine 10 mg tablet 10 mg PO TID PRN #90 tab 02/02/19 Allopurinol 300 mg PO DAILY 07/03/19 Blood Sugar Diagnostic [Accu-Chek Chloe Plus] See Rx Instructions .ROUTE .MEDSUPPLY 07/03/19 Cholecalciferol (Vitamin D3) [D3-50] 50,000 unit PO MO 07/03/19 Gabapentin [Neurontin] 300 mg PO TID 07/03/19 Amitriptyline HCl [Elavil] 25 mg PO QHS tab 07/14/19 Ferrous Sulfate 325 mg PO 1200,1700 tab 07/14/19 Hydrocodone Bitart/Apap 5-325 [[place] 5/325] 2 tab PO Q4H PRN PRN 7 Days tab 07/14/19 Insulin Lispro [Humalog KwikPen] See Protocol SUBCUT ACHS insuln.pen 07/14/19 Mupirocin [Bactroban] 1 applic TOPICAL DAILY tube 07/14/19 Nutritional Supplement [Pancho - ORANGE FLAVOR] 1 packet PO BIDCM packet 07/14/19 Primary Care Physician: Pia Newton MD [Primary Care Provider] - Please follow up with your Primary Care Physician in: 1 Week Test Results: Test results from this visit will be discussed in further detail at your follow-up appointment, if applicable. Please Follow Up With: Tony Ray MD When: 10 days Proposed Discharge Date: 07/14/19
--- NOTE | 2019-07-14 09:00 | CASEMGMT ---
Patient was approved to go to the Inpatient Rehab Unit. SW notified patient, physician, and audio visual secretary. Plan: [facility] 4th floor Rehab Unit Amanda PATTERSON
--- NOTE | 2019-07-14 09:23 | CASEMGMT ---
PUJA notified Karlie at [facility] that patient was approved and he will go to the Inpatient Rehab Unit today. PUJA also faxed d/c instructions. Amanda MONTALVO MSW
--- NOTE | 2019-07-14 09:29 | PCM.DC.SUM ---
<Naila Lozada - Last Filed: 07/14/19 09:36> Discharge Date and Diagnosis Date of Admission: 07/02/19 Date of Discharge: 07/14/19 - Primary Discharge Diagnosis Active and Suspected Problems (Last Reviewed 07/03/19 @ 01:[address] Darwin Lema MD) 1. Left ankle osteomyelitis, s/p left below the knee amputation by Dr. Ray 07/09/2019. 2. Acute on chronic normocytic anemia 3. Acute kidney injury on chronic kidney disease stage IV 4. Type 2 diabetes mellitus 5. History of gout 6. Hypertension 7. Tobacco dependence 8. Questionable history of RA and lupus? - Secondary Discharge Diagnosis Chronic Problems (Last Reviewed 07/03/19 @ 01:[address] Darwin eLma MD) Sleep apnea (Chronic) Recurrent dislocation of left ankle (Chronic) Alopecia (Chronic) alopecia overlying soft tissue mass right temporal parietal scalp Head mass (Chronic) 8 cm soft tissue mass right temporal parietal scalp with overlying alopecia Open left ankle fracture (Chronic) Anemia (Chronic) Rheumatoid arthritis (Chronic) Gout (Chronic) Tinea unguium (Chronic) Type 2 diabetes mellitus with diabetic polyneuropathy (Chronic) Peripheral neuropathy (Chronic) Arthritis (Chronic) Hypertension (Chronic) High cholesterol (Chronic) Hyperlipidemia (Chronic) Type 2 diabetes mellitus (Chronic) 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) Uncontrolled type 2 diabetes mellitus (Chronic) Tobacco use disorder (Chronic) Pure hypercholesterolemia (Chronic) History of hypertension (Chronic) Type 2 diabetes mellitus with diabetic polyneuropathy (Chronic) History of gout (Chronic) Obesity (Chronic) COPD (chronic obstructive pulmonary disease) (Chronic) Chronic renal insufficiency, stage III (moderate) (Chronic) Type 2 diabetes mellitus with foot ulcer (Chronic) 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 There is also resorption of the proximal tarsal bones of the foot. Osteomyelitis cannot be excluded. Electronically Signed: Isaias Weldon DO at 22:26 EDT Tel [phone], Service support , Foot X-Ray 07/03/19 09:03 IMPRESSION: Severe erosion and destruction of the tibiotalar joint as well as talus with findings most concerning for interval infectious destruction given comparison to 09 September 2018. Other considerations would include Charcot joint. Electronically Signed: Javier Mcmullen DO at 9:35 EDT , Service support , Lower Extremity CT 07/03/19 09:03 IMPRESSION: Periosteal reaction and destructive change of the tibia adjacent to soft tissue defect consistent with osteomyelitis. Destruction and postoperative change of the talus and erosive change of the calcaneus with contiguous spread osteomyelitis versus inflammatory and postoperative/posttraumatic arthropathy. Electronically Signed: Shahbaz Gtz MD at 14:38 EDT , Service support , Chest X-Ray 07/03/19 15:30 IMPRESSION: No acute pulmonary findings. Electronically Signed: Ck Rand MD at 21:10 EDT Tel , Service support , Ankle X-Ray 07/04/19 08:38 IMPRESSION: Postoperative changes of the midfoot secondary to debridement with reduced amorphous osseous density showing likely bone grafting and debridement of the mid calcaneus with diffuse degenerative changes as above. Electronically Signed: Javier Mcmullen DO at 9:24 EDT , Service support , Consultations 07/03/19 01:16 Consult: Onc/Wound/shellfish bed worker Routine Comment: Reason for Consult:: Wound on left ankle Dr. Ray- Plastic surgery Dr. Bejarano- ID Dr. Weldon-Podiatry Operations: - - L BKA Summary of Care Provided: The patient is a 59 year old F admitted 07/02/2019 due to increased drainage of left ankle wound. 1. Left ankle osteomyelitis, recurrent infections-status post I&D left ankle 07/04/2019. Cultures grew Streptococcus agalactiae and kocuria kristinae. Infectious disease, podiatry and plastics consulted during admission. History of multiple infections in the past with MRSA, Pseudomonas. Patient has been wheelchair-bound due to unstable floppy ankle with previous removal of hardware October 2018. Left below the knee amputation by Dr. Ray 07/09/2019. Discontinue IV vancomycin and IV Rocephin. No further need for antibiotics per ID. PT/OT. Patient complaining of phantom pain. Already on gabapentin. Initiated on amitriptyline 25 mg nightly. Rehab unit at discharge. Plan for Dr. Ray drain removal in 10 to 14 days with suture removal in 3 to 4 weeks. Osbaldo drain to bulb suction, nursing to empty and record output every 4 hours. Wound care: Cleanse left BKA incision with normal saline, pat dry. Place Adaptic along the incision and cover with dry dressing. Wrap with Kerlix and apply Lonnie wrap. Keep leg elevated as much as possible. Apply Bactroban ointment to left BKA stump at suture line daily during dressing change. 2. Acute on chronic normocytic anemia-S/P 2 units PRBC for hemoglobin 7.9. Patient reports a history of iron deficiency anemia. Prior iron studies consistent with iron deficiency. Continue iron supplementation. Trend CBC. Hemoglobin stable. 3. Acute kidney injury on chronic kidney disease stage IV-acute kidney injury resolved. Continue outpatient follow-up with nephrology, follows with [facility]. Patient previously on lisinopril 40 mg twice daily which was discontinued. 4. Type 2 diabetes mellitus-diet controlled at home. Hemoglobin A1c 6.5%. Accu-Cheks with sliding scale insulin. 5. History of gout-continue allopurinol. 6. Hypertension-continue atenolol, cardizem. LONNIE inhibitor discontinued. Continue to monitor blood pressure. 7. Tobacco dependence- encouraged cessation. 8. Questionable history of RA and lupus? Recommend outpatient rheumatology evaluation. Requested records from previous drug abuse social worker. General: Alert, Oriented x3, Cooperative HEENT: Atraumatic, PERRLA, EOMI, Normocephalic Neck: Supple, No JVD, Negative Carotid Bruits Lungs: Clear to auscultation, Normal air movement Cardiovascular: Regular rate, Regular Rhythm, Normal S1, Normal S2, No murmurs Abdomen: Bowel Sounds Present, Soft, Non Tender, Non-Distended Extremities: No clubbing, No cyanosis Skin: - - Left below the knee amputation, dressing intact Musculoskeletal: No Tenderness to Palpation of Joints or Extremities Neurological: Cranial nerves II-XII grossly intact, Neuro grossly intact Psych/Mental Status: Normal Affect, Appropriate Patient seen and examined prior to discharge. Physical assessment as noted above. Patient is stable for discharge with follow up recommendations as noted above. This patient was seen by ELIAS Delgado under the supervision of Dr. Roland. - Physical Exam Vitals/I&O's: Vital Signs Temp Pulse Resp BP Pulse Ox 98.9 F 72 18 132/51 H 97 07/14/19 08:35 07/14/19 08:35 07/14/19 08:35 07/14/19 08:35 07/14/19 08:35 Oxygen Flow Rate (L/min) 2 Oxygen Delivery Method Room Air Weight: 213 lb 4.791 oz Body Mass Index (BMI) 34.4 Finger Stick Blood Glucose 97 Intake and Output for Last 24 Hours 07/12/19 07/13/19 07/14/19 23:59 23:59 23:59 Intake Total 1685.00 / 1685.00 1200 / 1550 700 / 700 Output Total 2040 / 2040 2687 / 2687 2100 / 2100 Balance -355.00 / -355.00 -1487 / -1137 -1400 / -1400 Microbiology Past 72 Hours 07/09/19 17:01 Bone - Leg Gram Stain - Final 07/09/19 17:01 Bone - Leg Wound Culture - Final No growth aerobically. 07/09/19 17:01 Bone - Leg Anaerobic Culture - Preliminary No growth in 48 hours. 07/09/19 17:01 Tissue - Leg Gram Stain - Final 07/09/19 17:01 Tissue - Leg Wound Culture - Final No growth aerobically. 07/09/19 17:01 Tissue - Leg Anaerobic Culture - Preliminary No growth in 48 hours. Laboratory Results 07/11/19 10:30: Aldolase 5.2 07/13/19 06:55: ESR 124 H 07/13/19 06:55: C-React Prot Ext Range 227.00 H 07/13/19 11:41: POC Glucose 104 07/13/19 17:16: POC Glucose 142 H 07/13/19 22:31: POC Glucose 129 H 07/14/19 05:08: WBC 22.6 H, RBC 3.31 L, Hgb 8.8 L, Hct 28.3 L, MCV 85.5, MCH 26.6 L, MCHC 31.1 L, RDW Std Deviation 54.9 H, RDW Coeff of Racheal 17.5 H, Plt Count 403, MPV 9.3 07/14/19 05:08: Sodium 135 L, Potassium 3.9, Chloride 106, Carbon Dioxide 19.0 L, Anion Gap 10, BUN 73 H, Creatinine 2.24 H, Estim Creat Clear Calc 24.69, Est GFR (MDRD) Af Amer 29 L, Est GFR (MDRD) Non-Af 24 L, BUN/Creatinine Ratio 32.6 H, Glucose 111 H, Calcium 9.3 07/14/19 06:33: POC Glucose 97 Current Medications Hydrocodone Bitart/Acetaminophen ([place] 5mg-325mg) 2 tablet PO Q4H PRN PRN PRN Reason: Pain Score 1-10/10 Last Admin: 07/13/19 17:27 Dose: 2 tablet Documented by: [facility]oprim) [facility] Last Admin: 07/14/19 08:36 Dose: 300 mg Documented by: Amitriptyline HCl (Elavil) 25 mg PO QHS [facility] Last Admin: 07/13/19 22:29 Dose: 25 mg Documented by: Atenolol (Tenormin (Beta Jona)) 50 mg PO DAILY [facility] Last Admin: 07/14/19 08:35 Dose: 50 mg Documented by: Cyclobenzaprine HCl (Flexeril) 10 mg PO TID PRN PRN PRN Reason: muscle spasm Last Admin: 07/12/19 08:05 Dose: 10 mg Documented by: Dextrose (D50w Syringe) 0 gm IV X1 PRN; Protocol PRN Reason: Hypoglycemia Diltiazem HCl (Cardizem Cd) 180 mg PO DAILY [facility] Last Admin: 07/14/19 08:36 Dose: 180 mg Documented by: Ferrous Sulfate (Ferrous Sulfate) 325 mg PO 1200,1700 [facility] Last Admin: 07/13/19 17:22 Dose: 325 mg Documented by: Gabapentin (Neurontin) 300 mg PO TIDCM [facility] Last Admin: 07/14/19 08:36 Dose: 300 mg Documented by: Glucagon () 1 mg IM .X1 PRN PRN Reason: Hypoglycemia Heparin Sodium (Porcine) (Heparin Na) 5,000 unit SC Q8 [facility] Last Admin: 07/14/19 06:35 Dose: 5,000 unit Documented by: Hydromorphone HCl (Dilaudid Inj) 1 mg IV Q3H PRN PRN PRN Reason: Pain Score 6-10/10 Last Admin: 07/10/19 12:16 Dose: 1 mg Documented by: Sodium Chloride () 250 mls @ 15 mls/hr IV .[id number] PRN PRN Reason: Additional IVPB Infusion Insulin Human Lispro (Humalog Kwikpen (Bkc)) 0 unit SC ACHS [facility]; Protocol Last Admin: 07/14/19 06:35 Dose: Not Given Documented by: Lactobacillus Acidophilus (Acidophilus) 1 tablet PO TID [facility] Last Admin: 07/14/19 06:35 Dose: 1 tablet Documented by: Melatonin (Melatonin) 3 mg PO QHS PRN PRN PRN Reason: INSOMNIA Last Admin: 07/03/19 00:31 Dose: 3 mg Documented by: Miconazole Nitrate (Monistat 7) 1 applic VAGINAL QHS [facility] Last Admin: 07/13/19 22:30 Dose: Not Given Documented by: Mupirocin (Bactroban) 1 applic TOPICAL DAILY [facility]; Protocol Last Admin: 07/14/19 08:37 Dose: 1 applic Documented by: Nutritional Formula (Pancho - [place] Flavor) 1 packet PO BIDCM [facility] Last Admin: 07/14/19 08:35 Dose: 1 packet Documented by: Ondansetron HCl (Zofran) 4 mg IV Q8H PRN PRN PRN Reason: NAUSEA/VOMITING Last Admin: 07/10/19 12:00 Dose: 4 mg Documented by: Discharge Diet: Carb Control Diet Discharge Activity: Return to Normal Activity Call your doctor if your incision/area has: Continuous Slow Oozing, Sudden Increased Bleeding, Increased Pain/ Swelling, Increased Redness, Foul Smelling Discharge, Swelling at the incision site Call your doctor if you observe: Fever of 101 or Higher, Shortness of breath, Dizziness, Fainting spells, Chest pain Home Medications: Medications to take at Discharge Atenolol [Tenormin (beta jona)] 50 mg PO DAILY 08/10/18 diltiazem HCl 180 mg capsule,extended release 24 hr 180 mg PO DAILY cap 12/15/18 cyclobenzaprine 10 mg tablet 10 mg PO TID PRN #90 tab 02/02/19 Allopurinol 300 mg PO DAILY 07/03/19 Blood Sugar Diagnostic [Accu-Chek Chloe Plus] See Rx Instructions .ROUTE .MEDSUPPLY 07/03/19 Cholecalciferol (Vitamin D3) [D3-50] 50,000 unit PO MO 07/03/19 Gabapentin [Neurontin] 300 mg PO TID 07/03/19 Amitriptyline HCl [Elavil] 25 mg PO QHS 07/14/19 Ferrous Sulfate 325 mg PO 1200,1700 07/14/19 Hydrocodone Bitart/Apap 5-325 [[place] 5/325] 2 tab PO Q4H PRN PRN 7 Days tab 07/14/19 Insulin Lispro [Humalog KwikPen] See Protocol SUBCUT ACHS 07/14/19 Mupirocin [Bactroban] 1 applic TOPICAL DAILY 07/14/19 Nutritional Supplement [Pancho - ORANGE FLAVOR] 1 packet PO BIDCM 07/14/19 Primary Care Physician: Pia Newton MD [Primary Care Provider] - Please follow up with your Primary Care Physician in: 1 Week Please Follow Up With: Tony Ray MD When: 10 days Disposition: Inpt Rehab Unit/Facility Minutes spent on discharge:: 35 Patient Condition:: Stable Medical Necessity - Tobacco Use Smoking Status: Current every day smoker Meaningful Use Info Meaningful Use Diagnoses (Choose all that apply): None applicable <[place] - Last Filed: 07/14/19 11:41> Discharge Date and Diagnosis - Secondary Discharge Diagnosis Chronic Problems (Last Reviewed 07/03/19 @ 01:[address] Darwin Lema MD) Sleep apnea (Chronic) Recurrent dislocation of left ankle (Chronic) Alopecia (Chronic) alopecia overlying soft tissue mass right temporal parietal scalp Head mass (Chronic) 8 cm soft tissue mass right temporal parietal scalp with overlying alopecia Open left ankle fracture (Chronic) Anemia (Chronic) Rheumatoid arthritis (Chronic) Gout (Chronic) Tinea unguium (Chronic) Type 2 diabetes mellitus with diabetic polyneuropathy (Chronic) Peripheral neuropathy (Chronic) Arthritis (Chronic) Hypertension (Chronic) High cholesterol (Chronic) Hyperlipidemia (Chronic) Type 2 diabetes mellitus (Chronic) 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) Uncontrolled type 2 diabetes mellitus (Chronic) Tobacco use disorder (Chronic) Pure hypercholesterolemia (Chronic) History of hypertension (Chronic) Type 2 diabetes mellitus with diabetic polyneuropathy (Chronic) History of gout (Chronic) Obesity (Chronic) COPD (chronic obstructive pulmonary disease) (Chronic) Chronic renal insufficiency, stage III (moderate) (Chronic) Type 2 diabetes mellitus with foot ulcer (Chronic) 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 I have independently interviewed and examined the patient and reviewed pertinent historical, laboratory, and other data. Please refer to her note for patient's presentation, findings, and recommendations. 59-year-old female with past medical history of type II DM, hypertension, history of dislocation of the left ankle with previous Pseudomonas infection presented with increased bloody purulent drainage of the left ankle wound. Patient was managed as left recurrent ankle osteomyelitis. She was started on IV antibiotics. She had a history of previous hardware removal in October 2018 and has been wheelchair-bound due to unstable floppy ankle. Patient underwent I&D of the left ankle on 07/04/19. She subsequently underwent left below knee amputation on 07/09/19. Hospital course was complicated by severe anemia for which she received 2 units of packed RBC. She also had JOEY on CKD stage IV, lisinopril was discontinued. Her kidney function was fluctuating throughout the hospital stay. Infectious disease, podiatry, plastic surgery were consulted. Patient was seen in [facility] for discharge to acute rehab. Day of discharge, patient was seen and examined. Denied any new complaints. Physical Exam: Gen: Comfortable, not pale, not jaundiced, alert oriented x3 CVS:HS I +II, regular, 2/6 holosystolic murmur RESP: CTA GI: BS present and normal, nontender, no palpable organs EXT:No edema, left BKA - Physical Exam Vitals/I&O's: Vital Signs Temp Pulse Resp BP Pulse Ox 98.9 F 72 18 132/51 H 97 04/15/20 08:35 07/14/19 08:35 07/14/19 08:35 07/14/19 08:35 07/14/19 08:35 Oxygen Flow Rate (L/min) 2 Oxygen Delivery Method Room Air Weight: 96.751 kg Body Mass Index (BMI) 34.4 Finger Stick Blood Glucose 97 Intake and Output for Last 24 Hours 07/12/19 07/13/19 07/14/19 23:59 23:59 23:59 Intake Total 1685.00 / 1685.00 1200 / 1550 700 / 700 Output Total 2040 / 2040 2687 / 2687 2100 / 2100 Balance -355.00 / -355.00 -1487 / -1137 -1400 / -1400 Microbiology Past 72 Hours 07/09/19 17:01 Bone - Leg Gram Stain - Final 07/09/19 17:01 Bone - Leg Wound Culture - Final No growth aerobically. 07/09/19 17:01 Bone - Leg Anaerobic Culture - Preliminary No growth in 48 hours. 07/09/19 17:01 Tissue - Leg Gram Stain - Final 07/09/19 17:01 Tissue - Leg Wound Culture - Final No growth aerobically. 07/09/19 17:01 Tissue - Leg Anaerobic Culture - Preliminary No growth in 48 hours. Laboratory Results 07/11/19 10:30: Aldolase 5.2 07/13/19 11:41: POC Glucose 104 07/13/19 17:16: POC Glucose 142 H 07/13/19 22:31: POC Glucose 129 H 07/14/19 05:08: WBC 22.6 H, RBC 3.31 L, Hgb 8.8 L, Hct 28.3 L, MCV 85.5, MCH 26.6 L, MCHC 31.1 L, RDW Std Deviation 54.9 H, RDW Coeff of Racheal 17.5 H, Plt Count 403, MPV 9.3 07/14/19 05:08: Sodium 135 L, Potassium 3.9, Chloride 106, Carbon Dioxide 19.0 L, Anion Gap 10, BUN 73 H, Creatinine 2.24 H, Estim Creat Clear Calc 24.69, Est GFR (MDRD) Af Amer 29 L, Est GFR (MDRD) Non-Af 24 L, BUN/Creatinine Ratio 32.6 H, Glucose 111 H, Calcium 9.3 07/14/19 06:33: POC Glucose 97 Inpatient E&M: [id number] Disch Hosp
--- NOTE | 2019-07-14 09:51 | NURSING ---
report called to MERLYN Chowdhury on RU for discharge.
== END 2019-07-14 10:11 | disposition skilled nursing facility (03) | DRG 617 ==
LOC: ED 22:25 → PCU 23:13
PROVIDERS: Anesthesiology; Family Medicine; Internal Medicine; Internal Medicine Infectious Disease; Nurse Practitioner Family; Physician Assistant; Podiatrist; Surgery; Admitting Provider Hospitalist; Emergency Provider Emergency Medicine; PCP Internal Medicine; Visit Provider Internal Medicine
PROC: 0QBM0ZZ Excision of Left Tarsal, Open Approach (ICD-10-PCS; principal; 2019-07-04 07:30)
PROC: 0Y6J0Z1 Detachment at Left Lower Leg, High, Open Approach (ICD-10-PCS; principal; 2019-07-09 12:45)
DX: E11.69 Type 2 diabetes mellitus with other specified complication (principal); M86.172 Other acute osteomyelitis, left ankle and foot; E11.52 Type 2 diabetes mellitus with diabetic peripheral angiopathy with gangrene; E11.621 Type 2 diabetes mellitus with foot ulcer; L97.524 Non-pressure chronic ulcer of other part of left foot with necrosis of bone; L97.521 Non-pressure chronic ulcer of other part of left foot limited to breakdown of skin; L03.116 Cellulitis of left lower limb; B95.4 Other streptococcus as the cause of diseases classified elsewhere; L02.416 Cutaneous abscess of left lower limb; E11.42 Type 2 diabetes mellitus with diabetic polyneuropathy; E11.610 Type 2 diabetes mellitus with diabetic neuropathic arthropathy; E11.65 Type 2 diabetes mellitus with hyperglycemia; G54.6 Phantom limb syndrome with pain; E11.22 Type 2 diabetes mellitus with diabetic chronic kidney disease; I12.9 Hypertensive chronic kidney disease with stage 1 through stage 4 chronic kidney disease, or unspecified chronic kidney disease; N17.9 Acute kidney failure, unspecified; N18.4 Chronic kidney disease, stage 4 (severe); D50.9 Iron deficiency anemia, unspecified; E87.2 Acidosis; E87.5 Hyperkalemia; E78.5 Hyperlipidemia, unspecified; J44.9 Chronic obstructive pulmonary disease, unspecified; M32.9 Systemic lupus erythematosus, unspecified; M06.9 Rheumatoid arthritis, unspecified; M1A.9XX0 Chronic gout, unspecified, without tophus (tophi); G47.30 Sleep apnea, unspecified; S82.892S Other fracture of left lower leg, sequela; X58.XXXS Exposure to other specified factors, sequela; F17.200 Nicotine dependence, unspecified, uncomplicated; E66.9 Obesity, unspecified; Z68.34 Body mass index [BMI] 34.0-34.9, adult; Z79.4 Long term (current) use of insulin; Z79.899 Other long term (current) drug therapy; Z88.0 Allergy status to penicillin; Z88.6 Allergy status to analgesic agent; Z91.040 Latex allergy status; Z86.14 Personal history of Methicillin resistant Staphylococcus aureus infection; Z99.3 Dependence on wheelchair
CPT/HCPCS: 36415; 71045; 73590; 73610; 73630; 73700; 80048; 80202; 82085; 82550; 82607; 82728; 82746; 82962; 83036; 83540; 83550; 83615; 84134; 84450; 85025; 85027; 85610; 85652; 85730; 86140; 86850; 86900; 86901; 86920; 87015; 87070; 87075; 87077; 87102; 87116; 87186; 87205; 87206; 88304; 88305; 88307; 88311; 93005; 97110; 97162; 97166; 97530; 97535; 97802; 97803; 99282; 99406; J7030; J7040; J7050; J7120; P9016; A4216; J0696; J0744; J2405

== ENCOUNTER 2019-07-14 10:20 | Inpatient (IN) | payer MEDICARE, MEDICAID, SELFPAY ==
[2019-07-09 11:52] VITALS: BMI 34.4
[2019-07-14 10:46] VITALS: BP 138/69; PULSE 69; RESP 18; TEMP 36.7; O2SAT 92; BMI 34.8; BMI 34.9
[2019-07-14 11:21] LABS: Bedside Glucose 136 mg/dL (70-110)
[2019-07-14] MEDS: Ferrous Sulfate 325 MG Tablet PO ×2 (12:40→17:08)
[2019-07-14] MEDS: Gabapentin 300 MG Capsule PO ×2 (12:40→17:08)
--- NOTE | 2019-07-14 13:27 | CASEMGMT ---
Social Work Reviewed and agreed with social work architect internship documentation on this date. Citlali Nava, HOUSING MANAGEMENT OFFICER RECEIVING SPECIALIST
[2019-07-14 16:36] LABS: Bedside Glucose 125 mg/dL (70-110)
[2019-07-14 18:25] VITALS: O2SAT 92
[2019-07-14 19:30] VITALS: BP 152/70; PULSE 69; RESP 17; TEMP 36.9; O2SAT 96
[2019-07-14] MEDS: HYDROcodone Bitartrate/Apap 5/325 Tablet PO (19:44)
[2019-07-14] MEDS: Heparin Injection (Vial) 5,000 UNIT/ML VIAL 5000 UNIT SC (22:15)
[2019-07-14] MEDS: Amitriptyline 25 MG Tablet PO (22:15)
[2019-07-14] MEDS: cycloBENZAPRine HCl 10 MG Tablet PO (22:32)
[2019-07-14 22:46] LABS: Bedside Glucose 118 mg/dL (70-110)
[2019-07-15] MEDS: HYDROcodone Bitartrate/Apap 5/325 Tablet PO ×4 (00:55→21:52)
[2019-07-15] MEDS: Heparin Injection (Vial) 5,000 UNIT/ML VIAL 5000 UNIT SC ×3 (04:54→22:02)
[2019-07-15 06:55] LABS: Bedside Glucose 112 mg/dL (70-110)
[2019-07-15 08:17] VITALS: BP 114/59; PULSE 57; RESP 16; TEMP 37; O2SAT 93
[2019-07-15] MEDS: dilTIAZem CD 180 MG Capsule PO (10:54)
[2019-07-15] MEDS: Atenolol 50 MG Tablet PO (10:54)
[2019-07-15] MEDS: Allopurinol 300 MG Tablet PO (10:54)
[2019-07-15] MEDS: Gabapentin 300 MG Capsule PO ×3 (10:54→16:34)
[2019-07-15] MEDS: Mupirocin Ointment 22gm Tube 1 APPLIC TOPICAL (11:04)
[2019-07-15] MEDS: Ferrous Sulfate 325 MG Tablet PO ×2 (11:11→16:34)
--- NOTE | 2019-07-15 11:48 | NURSING ---
Spoke with Rosendo at Dr Ray's office. If pt is discharged with in1 week she is to f/u with wound care. If she is here longer than a week call his office to schedule appt to have drain and sutures removed
[2019-07-15 11:50] LABS: Bedside Glucose 101 mg/dL (70-110)
--- NOTE | 2019-07-15 11:50 | NURSING ---
wound photo: left BKA
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
--- NOTE | 2019-07-15 14:28 | CASEMGMT ---
Social Work Completed advanced directives with patient. Pt named mother, Michell Young, as HCPOA, and sister Elza Ramos, as secondary. Copies placed on chart. LEONARDO OliviaW
--- NOTE | 2019-07-15 17:06 | PCM.RU.PYE ---
Admission Information Primary Diagnosis:: Debility secondary to recent osteomyelitis of the left tibia and subsequent left BKA Status Changes from Prescreening?: No changes Identified Actual Problem List:: Bleeding, Infection, Skin Intergrity, Depression, Alteration in Nutrition, Mobility Impaired, Self Care Deficit, Diabetes, Hyperglycemia, BP, Hypertension, Alteration/ Air Exchange, Alteration-Leisure Activ. Potential Problem List:: DVT, Bleeding, Infection, UTI, Aspiration, Falls, Skin Integrity, Depression Risk of Complications DVT: LMWH, MARLYS Hose, Sequential Compression Device Bleeding: Monitor Lab Values, Nursing to Teach Precautions for anti-coagulation therapy., Wound, if applicable, to be assessed every shift., Stroke patients assessed for lethargy or change in status. Infection: Clinical Staff to Monitor for S/S of infection:, S/S of infection include fever, redness, warmth, etc. Urinary Tract Infection: Monitor for frequency, burning, discomfort, or incontinence., Nursing will obtain urine sample for urinalysis and C&S when ordered. Aspiration: Clinical staff will monitor for coughing, drooling, congestion., Speech will evaluate swallowing and dsyphasia., Nursing will monitor patient swallowing during meals. Falls: Patient will be evaluated for Fall Precautions, Patient will be placed on Fall Precautions as indicated per protocol. Skin Breakdown: Nursing will assess skin daily using assessment tool., Nursing will place on Skin Breakdown Precautions as indicated. Pain: Clinical staff will assess patient's pain level per protocol., Medications will be given, if needed, and the pain level reassessed., Other methods: Massage, distraction, decrease stimulus, etc. used PRN. Plan of Care Patient requires physician specializing in physical medicine and rehab oversight to provide close medical supervision of rehab issues including: Pain Management, Sleep Problems, Bowel and Bladder, Medical and co-morbidity Management, DVT prophylaxis, Rehabilitation Leadership, Coordination of treatment team Patient needs Physical Therapy: For a minimum of 1 hour, At least 5 out of 7 days Patient needs Physical Therapy to improve:: Mobility, Mobility, Mobility, Strengthening, Transfers, Stretching, ROM, Endurance, Stairs, Gait, Balance Patient needs Occupational Therapy: For a minimum of 1 hour, At least 5 out of 7 days Patient needs Occupational Therapy to improve ADL's incl.: Eating, Grooming, Bathing, Dressing, Toileting, Toilet transfers, Community Reintegration, Higher functioning activities, Household tasks, Adaptive Equipment, Splinting, Other activities as determined Patient requires 24/7 Rehabilitation Nursing for: Pain Issues, Identifying and preventing risk factors, Monitoring and reporting current medical conditions, Assisting with ambulation, transfer, and all ADL's, Teaching patients about disease process and medications, Family teaching, Providing safe environment, Bowel and Bladder Issues, Skin integrity, Medication Management Patient needs [employer]/ Case Management for: Discharge Planning, Arranging Home Equipment or Services, Family Interventions Patient needs Dietary and Nutrition Services for: Adequate Nutrition, Nutritional Supplements, Nutritional Education Goals Patient will remain: free from falls, or injury at time of discharge. Patient will perform bed mobility at: MOD I level of assist. Patient will complete transfers from bed to chair at: MOD I level of assist. Patient will ambulate: 100 feet, with MOD I assist, with LRD Patient will complete upper body dressing at: MOD I level of assist. Patient will complete lower body dressing at: MOD I level of assist. Patient will complete toileting at: MOD I level of assist. Patient will perform bathing at: MOD I level of assist. Patient will complete grooming at: MOD I level of assist. Patient will complete home management skills at: MOD I level of assist. Patient will achieve: 12 stairs, at MOD I assist Patient will have pain level of: of 3 or less Patient's skin will: remain intact, free from infection. Patient will receive: adequate nutrition. Discharge Planning Pt Prognosis for Sig. Practical Improv. w/in Reasonable Time: Good Estimated Length of stay (days): 14 Anticipated D/C Destination: unknown at this time. she lives in a trailer with 3 sets of steps and I doubt that she will be able to back to the trailer and will need to obtain other housing Was Preadmission Assessment Accurate?: Yes
[2019-07-15 17:21] LABS: Bedside Glucose 107 mg/dL (70-110)
[2019-07-15] MEDS: Ascorbic Acid 500 MG Tablet PO (18:36)
[2019-07-15 19:13] VITALS: PULSE 76; RESP 18
[2019-07-15] MEDS: Budesonide Respules 0.5 MG/2 ML AMPUL.NEB. INHALATION (19:13)
[2019-07-15] MEDS: Albuterol 2.5 MG/3 ML VIAL.NEB. INHALATION (19:13)
[2019-07-15 19:34] VITALS: BP 144/78; PULSE 71; RESP 18; TEMP 36.9; O2SAT 99
--- NOTE | 2019-07-15 20:15 | NURSING ---
ATTEMPT X 2 TO START IV WITHOUT SUCCESS. PT WATCHING TV.
--- NOTE | 2019-07-15 20:56 | NURSING ---
CRIMINAL PROFILER X 2 ATTEMPT TO START IV WITHOUT SUCCESS. PHOTOENGRAVING ETCHER APPRENTICE CALLED TO ATTEMPT IV STARAT IN PT. PT GIVEN LARGE MUG OF WATER AND IS DRINKING.
--- NOTE | 2019-07-15 21:24 | NURSING ---
NURSING CHIEF SAFETY OFFICER ATTEMPTING TO START IV IN PT.
--- NOTE | 2019-07-15 21:40 | NURSING ---
[facility] APPRENTICESHIP REPRESENTATIVE UNSUCCESSFUL WITH IV ATTEMPT. CALL PLACED TO DR OJEDA VIA [facility]ER[facility].
[2019-07-15] MEDS: Amitriptyline 25 MG Tablet PO (22:02)
[2019-07-15] MEDS: buPROPion 75 MG Tablet PO (22:02)
--- NOTE | 2019-07-15 22:09 | NURSING ---
[facility] TO [facility] DR OJEDA AGAIN.
--- NOTE | 2019-07-15 22:20 | NURSING ---
DR OJEDA INFORMED THAT UNABLE TO ADMINISTER IV IRON SUCROSE UNABLE TO OBTAIN IV ACCESS. ORDER TO HOLD IV DOSE OF IRON SUCROSE.
[2019-07-15 23:11] LABS: Bedside Glucose 112 mg/dL (70-110)
[2019-07-16] MEDS: HYDROcodone Bitartrate/Apap 5/325 Tablet PO (04:20)
[2019-07-16] MEDS: Heparin Injection (Vial) 5,000 UNIT/ML VIAL 5000 UNIT SC ×3 (06:03→21:53)
[2019-07-16] MEDS: cycloBENZAPRine HCl 10 MG Tablet PO (06:03)
--- NOTE | 2019-07-16 07:27 | NS ---
Pt agreeable to unflavored Pancho bid mixed in V-8 juice. Kitchen aware - will provide at breakfast and dinner.
[2019-07-16 07:30] LABS: Bedside Glucose 95 mg/dL (70-110)
[2019-07-16] MEDS: Gabapentin 300 MG Capsule PO ×3 (08:05→17:36)
[2019-07-16] MEDS: Ferrous Sulfate 325 MG Tablet PO (08:05)
[2019-07-16] MEDS: Ascorbic Acid 500 MG Tablet PO ×2 (08:05→17:36)
[2019-07-16] MEDS: Allopurinol 300 MG Tablet PO (08:05)
[2019-07-16] MEDS: buPROPion 75 MG Tablet PO ×2 (08:06→21:53)
[2019-07-16] MEDS: Atenolol 50 MG Tablet PO (08:06)
[2019-07-16] MEDS: dilTIAZem CD 180 MG Capsule PO (08:06)
[2019-07-16 10:00] VITALS: BP 128/69; PULSE 56; RESP 12; TEMP 36.4; O2SAT 94
--- NOTE | 2019-07-16 11:30 | PCM.PN.BLA ---
Progress Note Afebile VSS Maintaining appropriate oxygen saturation on RA Oral intake is fair, she had 1510 in yesterday. Discussed with nursing - no problems that need addressed Reviewed the PT/OT notes Medication list reviewed. Blood sugar record was reviewed. The blood sugars are under excellent control and there is no hypoglycemia. Alert, oriented x3, no apparent distress Lungs-diminished with scattered wheezes. I placed her on a fluticasone/salmeterol inhaler and pharmacy substituted aerosols with Pulmicort and the patient has been refusing. Heart-regular rate and rhythm Abdomen-obese, soft, nontender, nondistended, bowel sounds present Scant discharge from the drain No rashes, no decubitus ulcers Impressions 1. Debility secondary to recent left below the knee amputation 2. Diabetes mellitus type 2-very well controlled 3. COPD with ongoing tobacco dependence. Refusing inhaled bronchodilators and steroids. States that she will just keep up with her Ventolin inhaler which she has at home but does not use because she is keeping it for when she really needs it. We will provide her with a new prescription for a Ventolin inhaler at discharge 4. Chronic renal failure stage IV-on a protein restricted diet in addition to calorie controlled 5. Obesity-weight loss encouraged 6. Anemia of chronic renal failure Continue therapy. Patient has been wheelchair-bound for at least the past year so suspect she will not need a long admission to the rehab unit. Recheck the lab on Friday. Inpatient E&M: [id number] [facility] Hosp L1
[2019-07-16 11:50] LABS: Bedside Glucose 111 mg/dL (70-110)
[2019-07-16] MEDS: Mupirocin Ointment 22gm Tube 1 APPLIC TOPICAL (12:53)
[2019-07-16 13:50] VITALS: O2SAT 99
[2019-07-16 18:00] LABS: Bedside Glucose 126 mg/dL (70-110)
[2019-07-16 21:51] LABS: Bedside Glucose 113 mg/dL (70-110)
[2019-07-16] MEDS: Amitriptyline 25 MG Tablet PO (21:54)
[2019-07-16 22:00] VITALS: BP 153/80; PULSE 72; RESP 19; TEMP 36.8; O2SAT 96
[2019-07-17] MEDS: HYDROcodone Bitartrate/Apap 5/325 Tablet PO ×4 (03:57→22:02)
--- NOTE | 2019-07-17 04:03 | NURSING ---
[place] x2 tabs PRN provided for 6/10 knee pain at this time.
[2019-07-17 06:45] VITALS: O2SAT 96
[2019-07-17] MEDS: Heparin Injection (Vial) 5,000 UNIT/ML VIAL 5000 UNIT SC ×3 (06:47→22:02)
[2019-07-17 07:00] VITALS: BP 105/54; PULSE 60; RESP 16; TEMP 36.6; O2SAT 97
[2019-07-17 07:11] LABS: Bedside Glucose 103 mg/dL (70-110)
[2019-07-17] MEDS: Gabapentin 300 MG Capsule PO ×3 (10:15→17:00)
[2019-07-17] MEDS: Ascorbic Acid 500 MG Tablet PO ×2 (10:15→16:59)
[2019-07-17] MEDS: buPROPion 75 MG Tablet PO ×2 (10:15→22:02)
[2019-07-17] MEDS: Ferrous Sulfate 325 MG Tablet PO (10:15)
[2019-07-17] MEDS: Allopurinol 300 MG Tablet PO (10:15)
[2019-07-17 10:25] VITALS: BP 109/40; PULSE 60
--- NOTE | 2019-07-17 10:35 | NURSING ---
started taking her own knee high eber off on her Rt leg. Its cutting into me and I don't like it. education given regarding reason for eber hose. PT still continues to refuse to keep it on for right now.
[2019-07-17 12:35] LABS: Bedside Glucose 102 mg/dL (70-110)
[2019-07-17] MEDS: Magnesium Hydroxide 30 ML UDC PO (13:16)
[2019-07-17] MEDS: Mupirocin Ointment 22gm Tube 1 APPLIC TOPICAL (14:59)
[2019-07-17] MEDS: cycloBENZAPRine HCl 10 MG Tablet PO (16:52)
[2019-07-17 17:20] LABS: Bedside Glucose 97 mg/dL (70-110)
[2019-07-17 22:00] VITALS: BP 132/82; PULSE 71; RESP 18; TEMP 36.6; O2SAT 98
[2019-07-17] MEDS: Amitriptyline 25 MG Tablet PO (22:02)
[2019-07-17 22:40] LABS: Bedside Glucose 101 mg/dL (70-110)
[2019-07-18] MEDS: Heparin Injection (Vial) 5,000 UNIT/ML VIAL 5000 UNIT SC ×3 (06:23→20:24)
[2019-07-18] MEDS: HYDROcodone Bitartrate/Apap 5/325 Tablet PO ×3 (06:48→21:17)
[2019-07-18] MEDS: Senna/Docusate Sodium 1 Tablet 2 TABLET PO ×2 (07:03→20:23)
[2019-07-18 07:10] LABS: Bedside Glucose 93 mg/dL (70-110)
[2019-07-18 08:29] VITALS: O2SAT 98
[2019-07-18] MEDS: dilTIAZem CD 180 MG Capsule PO (09:17)
[2019-07-18] MEDS: Allopurinol 300 MG Tablet PO (09:17)
[2019-07-18] MEDS: Ascorbic Acid 500 MG Tablet PO ×2 (09:17→16:25)
[2019-07-18] MEDS: Gabapentin 300 MG Capsule PO ×3 (09:17→16:25)
[2019-07-18] MEDS: Ferrous Sulfate 325 MG Tablet PO (09:17)
[2019-07-18] MEDS: buPROPion 75 MG Tablet PO ×2 (09:17→20:24)
[2019-07-18] MEDS: Atenolol 50 MG Tablet PO (09:18)
[2019-07-18] MEDS: Mupirocin Ointment 22gm Tube 1 APPLIC TOPICAL (09:21)
[2019-07-18 10:00] VITALS: BP 143/84; PULSE 85; RESP 18; TEMP 36.8; O2SAT 95
[2019-07-18 12:15] LABS: Bedside Glucose 75 mg/dL (70-110)
[2019-07-18 17:31] LABS: Bedside Glucose 109 mg/dL (70-110)
[2019-07-18 20:15] VITALS: BP 140/74; PULSE 76; RESP 16; TEMP 37.3; O2SAT 100; O2SAT 94
[2019-07-18] MEDS: Amitriptyline 25 MG Tablet PO (20:24)
[2019-07-18 21:11] LABS: Bedside Glucose 119 mg/dL (70-110)
[2019-07-19] MEDS: Heparin Injection (Vial) 5,000 UNIT/ML VIAL 5000 UNIT SC ×3 (05:01→21:28)
[2019-07-19 06:12] LABS: Hemoglobin 8.6 g/dL (12.0-15.0); Mean Corp Hgb Conc 30.7 g/dL (32-36); Mean Corpuscular Hgb 26.5 pg (27.0-32.0); Mean Corpuscular Volume 86.4 fL (81-99); Mean Platelet Vol. 9.5 fl (6.2-12.0); Platelet Count 414 K/mm3 (150-450); RBC Distribution Width CV 17.4 % (11.6-14.6); RBC Distribution Width SD 54.7 fl (35.1-43.9); Red Blood Count 3.24 M/mm3 (4.2-5.4); White Blood Count 24.4 K/mm3 (4.4-11.0)
[2019-07-19 07:18] LABS: Anion Gap 7 (5-15); BUN 97 mg/dL (7-18); Calcium,Total 9.6 mg/dL (8.5-10.1); Chloride 105 mmol/L (98-107); Creatinine, Serum 2.77 mg/dL (0.55-1.02); EST Glomerular Filtration Rate 19 mL/min (>60); Est Glom Filt Rate - Afr Amer 22 mL/min (>60); Estimated Creatinine Clearance 19.97 ml/min; Glucose 105 mg/dL (74-106); Magnesium 2.4 mg/dL (1.6-2.6); Phosphorus 3.8 mg/dL (2.5-4.9); Sodium Level 133 mmol/L (136-145)
[2019-07-19 07:30] LABS: Bedside Glucose 98 mg/dL (70-110)
[2019-07-19 07:37] VITALS: O2SAT 94
[2019-07-19] MEDS: Ferrous Sulfate 325 MG Tablet PO (07:38)
[2019-07-19] MEDS: Gabapentin 300 MG Capsule PO ×3 (07:38→16:28)
[2019-07-19] MEDS: Ascorbic Acid 500 MG Tablet PO ×2 (07:39→16:28)
[2019-07-19] MEDS: Senna/Docusate Sodium 1 Tablet 2 TABLET PO ×2 (07:39→21:28)
[2019-07-19] MEDS: Allopurinol 300 MG Tablet PO (07:39)
[2019-07-19] MEDS: dilTIAZem CD 180 MG Capsule PO (07:39)
[2019-07-19] MEDS: Atenolol 50 MG Tablet PO (07:40)
[2019-07-19] MEDS: buPROPion 75 MG Tablet PO ×2 (07:40→21:28)
[2019-07-19] MEDS: Mupirocin Ointment 22gm Tube 1 APPLIC TOPICAL (07:41)
[2019-07-19] MEDS: HYDROcodone Bitartrate/Apap 5/325 Tablet PO ×2 (07:44→13:18)
[2019-07-19 09:09] VITALS: BP 131/53; PULSE 98; RESP 18; TEMP 36.6; O2SAT 95
--- NOTE | 2019-07-19 11:06 | PCM.PN.BLA ---
Progress Note Kandy was seen on team rounds today. Her mother participated in a conference call with the team. Afebile VSS-blood pressure is well controlled Maintaining appropriate oxygen saturation on RA Oral intake is good Discussed with nursing - no problems that need addressed Reviewed the PT/OT notes Medication list reviewed. Blood sugars are good with no insulin and no oral agents. She does a very good job managing her diet. All lab was personally reviewed. The white blood cell count remains elevated at 24.4 and has been elevated since she entered the hospital on 07/02/2019. Hemoglobin is stable at 8.6 and platelets are within normal limits. BMP shows a low sodium at 133 and an elevated potassium at 6.0. This was rechecked and was once again 6.0. Serum bicarb is 21. The BUN is 97 with a creatinine of 2.77, up from 2.24 on 07/14/2019. Phosphorus and magnesium are within normal limits. No questions today and no complaints. Lungs - diminished with mild scattered wheezing. H- RRR, no gallop and no rub abd - obese, NT, ND, no guarding with palpation, BS present no edema of the R ankle. she has several small abrasions on the lateral right ankle and foot. none appear to be infected Impressions 1. worsening renal failure with hyperkalemia - pt cautioned to increase her fluid intake. Will give a dose of Kayexalate today. Put a potassium restriction on the diet. Recheck the lab in the AM and if it has not improved will start an IV. She is not on an MIGUEL, MR or a potassium sparing diuretic. 2. Hyperkalemia secondary to acute on chronic renal failure although her creatinine has been as high as 2.81 this admission. It improves with fluids. 3. S/P BKA 4. Leukocytosis -this is actually increased since the day of admission on 07/02/2019. She has never had a normal white blood cell count since admission to the hospital. She is afebrile. I do not see a need for antibiotics at this time. It may stay elevated until the drain is removed. Dr. Ray will determine when the drain should be removed. Kayexalate 15 g p.o. x1 Add a low potassium restriction to her diet Recheck BMP and phosphorus in the a.m. DC sliding insulin scale STROKE Vital Signs/Narrative: Vital Signs Temp Pulse Resp BP Pulse Ox 07/19/19 09:09 97.9 F 98 18 131/53 H 95 07/19/19 07:37 94 Inpatient E&M: 55555 Subs Hosp L2
--- NOTE | 2019-07-19 11:43 | CASEMGMT ---
Social Work IDT met with patient and mother via conference call for Team Meeting. Discussed patient's progress in therapy. Pt is SBA for bed mobility, SBA to complete sponge bath in bed, min assist for w/c pivot transfers, ambulated 200 ft with w/c sup. Pt was w/c bound prior to surgery and capable to return home at this level with mother. Pt continues to receive dressing changes, has drain in incision, bu healing well. Explained insurance coverage with NRD 07/19 and continued stay is not guaranteed. Will ReTeam next week. Will continue to follow. Citlali Nava, [employer] UI/UX DESIGNER
[2019-07-19 11:46] LABS: Bedside Glucose 100 mg/dL (70-110)
[2019-07-19] MEDS: Sodium Polystyrene Sulfonate 15 GM/60 ML UDC PO (11:53)
[2019-07-19 17:56] LABS: Bedside Glucose 117 mg/dL (70-110)
[2019-07-19 21:26] LABS: Bedside Glucose 149 mg/dL (70-110)
[2019-07-19] MEDS: Amitriptyline 25 MG Tablet PO (21:28)
[2019-07-19 21:30] VITALS: PULSE 64; RESP 20; O2SAT 95
[2019-07-19 22:00] VITALS: BP 137/77; PULSE 64; RESP 20; TEMP 36.6; O2SAT 95
[2019-07-20] MEDS: HYDROcodone Bitartrate/Apap 5/325 Tablet PO ×2 (00:50→08:02)
--- NOTE | 2019-07-20 00:55 | NURSING ---
pt restless this hs sitting up on the side of the bed and not calling for staff assistance when trying to use the bsc, triggering the bed alarm. noted to have some confusion about time of day and reoriented to time. pt rocking back and forth on the side of the bed holding stump, requesting something for pain. norco given as per order. pt was pain medications earlier and had refused. pt reeducated on the importance of pain control and not letting pain get out of control. pt was rating her pain a 9/10 on pain scale. staff asked pt to reposition herself in the bed for safety-pt continued to be sitting on the side of the bed. bed alarm placed on for safety and will continue to monitor pt
--- NOTE | 2019-07-20 03:54 | NURSING ---
Reviewed and agree with QUARTER INSPECTOR documentation.
[2019-07-20] MEDS: Heparin Injection (Vial) 5,000 UNIT/ML VIAL 5000 UNIT SC ×3 (04:52→20:57)
[2019-07-20 06:26] LABS: Bedside Glucose 102 mg/dL (70-110)
[2019-07-20 07:32] LABS: Anion Gap 11 (5-15); BUN 97 mg/dL (7-18); BUN/Creat Ratio 35.9 RATIO (10-20); Calcium,Total 9.2 mg/dL (8.5-10.1); Chloride 102 mmol/L (98-107); EST Glomerular Filtration Rate 19 mL/min (>60); Est Glom Filt Rate - Afr Amer 23 mL/min (>60); Estimated Creatinine Clearance 20.48 ml/min; Glucose 109 mg/dL (74-106); Phosphorus 3.9 mg/dL (2.5-4.9); Potassium 5.9 mmol/L (3.5-5.1); Sodium Level 133 mmol/L (136-145)
[2019-07-20] MEDS: Ascorbic Acid 500 MG Tablet PO ×2 (07:53→16:00)
[2019-07-20] MEDS: Gabapentin 300 MG Capsule PO ×3 (07:53→16:00)
[2019-07-20] MEDS: Ferrous Sulfate 325 MG Tablet PO (07:53)
[2019-07-20] MEDS: Allopurinol 300 MG Tablet PO (07:53)
[2019-07-20] MEDS: buPROPion 75 MG Tablet PO ×2 (07:54→20:55)
[2019-07-20] MEDS: Atenolol 50 MG Tablet PO (07:54)
[2019-07-20] MEDS: dilTIAZem CD 180 MG Capsule PO (07:54)
[2019-07-20] MEDS: Mupirocin Ointment 22gm Tube 1 APPLIC TOPICAL (07:55)
[2019-07-20 09:11] VITALS: BP 113/64; PULSE 67; RESP 16; TEMP 36.8; O2SAT 99
--- NOTE | 2019-07-20 13:06 | PCM.PN.BLA ---
Progress Note Afebrile Blood pressure is well controlled Maintaining appropriate oxygen saturation on room air Blood sugar record was reviewed. No hypoglycemia. Blood sugars are under excellent control on no diabetic medication. BMP was reviewed. Potassium is still elevated at 5.9 despite placing a potassium restriction on her diet and giving Kayexalate yesterday. BUN is still 97 and the creatinine is 2.7 and she really has not been able to increase her fluid intake. Phosphorus is normal at 3.9. Alert, NAD the stump has some mild rick-incisional erythema along the medial side and there is increased warmth to touch. Minimal DC on the dressing and minimal output from the drain. No breakdown and no rashes. H - RRR, denies palpitations and lightheadedness. Impressions 1. Hyperkalemia 2. acute on CRF with hyperkalemia which I suspect is due to IV volume depletion from decreased fluid intake 3. persistent leukocytosis - still has the drain in. Now there is some new rick-incisional erythema and increased warmth. She grew Streptococcus agalactiae and Kocuria kristinae. She was on Vanco and Rocephin while in the hospital and the antibiotics were discontinued prior to transfer to the [facility]. In the past she grew pseudomonas and MRSA. We sent the fluid from the drain for GM stain and C&S. There is scant serosanguinous DC. STROKE Vital Signs/Narrative: Vital Signs Temp Pulse Resp BP Pulse Ox 07/20/19 09:11 98.3 F 67 16 113/64 99 Inpatient E&M: 29402 Subs Hosp L2
[2019-07-20] MEDS: 0.9% Normal Saline 1,000 ML 75 ML IV (15:25)
[2019-07-20] MEDS: Sodium Polystyrene Sulfonate 15 GM/60 ML UDC 30 GM PO (15:53)
[2019-07-20 16:25] LABS: Bedside Glucose 112 mg/dL (70-110)
--- NOTE | 2019-07-20 17:04 | PCM.RX.CS ---
Consult Pharmacy has been consulted to manage selected antiobiotic: Vancomycin Type of Consult: New start Suspected Infection: Skin/Soft tissue Labs: Sodium 133 mmol/L (136-145) L 07/20/19 06:53 Potassium 5.9 mmol/L (3.5-5.1) H 07/20/19 06:53 Chloride 102 mmol/L (98-107) 07/20/19 06:53 Carbon Dioxide 20.0 mmol/L (21.0-32.0) L 07/20/19 06:53 Anion Gap 11 (5-15) 07/20/19 06:53 BUN 97 mg/dL (7-18) H 07/20/19 06:53 Creatinine 2.70 mg/dL (0.55-1.02) H 07/20/19 06:53 Est GFR (MDRD) Af Amer 23 mL/min (>60) L 07/20/19 06:53 Est GFR (MDRD) Non-Af 19 mL/min (>60) L 07/20/19 06:53 BUN/Creatinine Ratio 35.9 RATIO (10-20) H 07/20/19 06:53 Glucose 109 mg/dL (74-106) H 07/20/19 06:53 Microbiology: Microbiology 07/20/19 10:40 Joel Escalona Drainage Gram Stain - Final Weight used for dosin.9 kg Estimated Creatinine Clearance: 25.7ML/MIN Goal Trough: 10-15 mcg/mL Pharmacy Plan for Drug Dosing: Give initial standard 15 mg/kg dose of 1500mg IV x1, then continue with 750mg IV q24h per [facility] dosing protocol. The patient's CrCl of 25.7 was calculated using an adjusted body weight of 74.3kg. Will order a trough to be drawn before the 3rd dose on 07/22/19. Pharmacy Service will continue to monitor and adjust dosing as required. Follow-Up Labs: Trough Vancomycin Labs to be done on [date and time ordered]: 07/22/19 16:30
[2019-07-20] MEDS: Amitriptyline 25 MG Tablet PO (20:55)
[2019-07-20] MEDS: Senna/Docusate Sodium 1 Tablet 2 TABLET PO (20:55)
[2019-07-20 22:00] VITALS: BP 140/70; PULSE 70; RESP 16; TEMP 36.3; O2SAT 95
[2019-07-21] MEDS: HYDROcodone Bitartrate/Apap 5/325 Tablet PO ×3 (03:29→23:01)
[2019-07-21] MEDS: Heparin Injection (Vial) 5,000 UNIT/ML VIAL 5000 UNIT SC ×3 (05:11→21:10)
[2019-07-21 06:55] LABS: Bedside Glucose 103 mg/dL (70-110)
[2019-07-21 07:00] LABS: Hematocrit 26.7 % (37-47); Hemoglobin 8.1 g/dL (12.0-15.0); Mean Corp Hgb Conc 30.3 g/dL (32-36); Mean Corpuscular Hgb 26.1 pg (27.0-32.0); Mean Corpuscular Volume 86.1 fL (81-99); Mean Platelet Vol. 9.4 fl (6.2-12.0); POSITIVE COUNT YES; POSITIVE MORPHOLOGY YES; Platelet Count 392 K/mm3 (150-450); RBC Distribution Width CV 17.5 % (11.6-14.6); RBC Distribution Width SD 54.2 fl (35.1-43.9); White Blood Count 23.3 K/mm3 (4.4-11.0)
[2019-07-21 07:04] LABS: Differential Indicated MANUAL DIFF
[2019-07-21 07:11] LABS: Erythrocyte Sedimentation Rate 114 mm/hr (0-30)
[2019-07-21 07:35] LABS: Eosinophil 3 % (0-5); Lymphocyte 8 % (19-41); Metamyelocyte 1 % (0-1); Monocyte 3 % (0-10); Myelocyte 1 (0-0); Neutrophil-Band 3 % (0-5); Neutrophil-Segmented 81 % (47-70); Total Cells Counted 100 (MANUAL DIFF)
[2019-07-21 07:36] LABS: Platelet Estimate ADEQUATE (ADEQ); Red Cell Morphology NORM C+C NORMAL (NORM C&C)
[2019-07-21 07:38] LABS: Absolute Lymphocyte Count 1.86 X10^3/uL (0.83-4.51); Absolute Neutrophil Count 19.6 X10^3/uL (2.0-7.7)
[2019-07-21 07:46] LABS: Anion Gap 9 (5-15); BUN 91 mg/dL (7-18); BUN/Creat Ratio 38.4 RATIO (10-20); Calcium,Total 8.8 mg/dL (8.5-10.1); Chloride 105 mmol/L (98-107); Creatinine, Serum 2.37 mg/dL (0.55-1.02); EST Glomerular Filtration Rate 22 mL/min (>60); Est Glom Filt Rate - Afr Amer 27 mL/min (>60); Estimated Creatinine Clearance 23.34 ml/min; Glucose 107 mg/dL (74-106); Potassium 4.9 mmol/L (3.5-5.1); Sodium Level 135 mmol/L (136-145)
[2019-07-21] MEDS: Gabapentin 300 MG Capsule PO ×3 (07:54→16:53)
[2019-07-21] MEDS: Allopurinol 300 MG Tablet PO (07:54)
[2019-07-21] MEDS: Ferrous Sulfate 325 MG Tablet PO (07:54)
[2019-07-21] MEDS: Ascorbic Acid 500 MG Tablet PO ×2 (07:54→16:53)
[2019-07-21] MEDS: dilTIAZem CD 180 MG Capsule PO (07:54)
[2019-07-21] MEDS: Atenolol 50 MG Tablet PO (07:55)
[2019-07-21] MEDS: buPROPion 75 MG Tablet PO ×2 (07:56→21:07)
[2019-07-21] MEDS: Mupirocin Ointment 22gm Tube 1 APPLIC TOPICAL (07:57)
[2019-07-21 09:27] VITALS: BP 127/67; PULSE 80; RESP 18; TEMP 36.8; O2SAT 96
[2019-07-21] MEDS: 0.9% Normal Saline 1,000 ML 75 ML IV (09:28)
[2019-07-21 11:20] LABS: Bedside Glucose 107 mg/dL (70-110)
[2019-07-21 11:23] LABS: Pathologist Review Reviewed
[2019-07-21 16:46] LABS: Bedside Glucose 94 mg/dL (70-110)
--- NOTE | 2019-07-21 19:28 | PCM.PN.ID ---
Patient Problems: Active and Suspected Problems (Last Reviewed 07/15/19 @ 16:[address] Katina Roach, DO) Physical debility (Acute) due to L BKA S/P BKA (below knee amputation) (Acute) 07/09/[address] Ray Metabolic acidosis (Acute) Moderate protein-calorie malnutrition (Acute) Heart murmur (Acute) History of Clostridioides difficile infection (Acute) Subjective: Feeling ok, tired today. No fever, no n/v/d. Minimal pain in leg. No SOB. - Physical Exam Vitals/I&O's: Vital Signs Temp Pulse Resp BP Pulse Ox 98.2 F 80 18 127/67 H 96 07/21/19 09:27 07/21/19 09:27 07/21/19 09:27 07/21/19 09:27 07/21/19 09:27 Oxygen Delivery Method Room Air Weight: 96.9 kg Body Mass Index (BMI) 34.8 Finger Stick Blood Glucose 97 Intake and Output for Last 24 Hours 07/19/19 07/20/19 07/21/19 23:59 23:59 23:59 Intake Total 1360 / 1660 3011.25 / 3011.25 3703.75 / 3703.75 Output Total 1002 / 1002 920 / 920 925 / 925 Balance 358 / 658 2091.25 / 2091.25 2778.75 / 2778.75 General: Alert, Cooperative, No apparent distress Lungs: Clear to auscultation, Normal air movement Cardiovascular: Regular rate, Regular Rhythm Abdomen: Soft, Non Tender, Non-Distended Skin: Ulcer/ Wound - reviewed photo Microbiology Past 72 Hours 07/20/19 10:40 Joel Escalona Drainage Gram Stain - Final 07/20/19 10:40 Joel Escalona Drainage Wound Culture - Preliminary No growth-Final to follow Laboratory Results 07/21/19 06:35: WBC 23.3 H, RBC 3.10 L, Hgb 8.1 L, Hct 26.7 L, MCV 86.1, MCH 26.1 L, MCHC 30.3 L, RDW Std Deviation 54.2 H, RDW Coeff of Racheal 17.5 H, Plt Count 392, MPV 9.4, Neut % (Auto) Not Reportable, Absolute Neuts (auto) 19.6 H, Absolute Lymphs (auto) 1.86, Total Counted 100, Neutrophils % (Manual) 81 H, Band Neutrophils % 3, Lymphocytes % (Manual) 8 L, Monocytes % (Manual) 3, Eosinophils % (Manual) 3, Metamyelocytes % 1, Myelocytes % 1 H, Diff Path Review Reviewed, Platelet Estimate ADEQUATE, RBC Morphology NORM C+C, ESR 114 H 07/21/19 06:35: Sodium 135 L, Potassium 4.9, Chloride 105, Carbon Dioxide 21.0, Anion Gap 9, BUN 91 H, Creatinine 2.37 H, Estim Creat Clear Calc 23.34, Est GFR (MDRD) Af Amer 27 L, Est GFR (MDRD) Non-Af 22 L, BUN/Creatinine Ratio 38.4 H, Glucose 107 H, Calcium 8.8, C-React Prot Ext Range 203.00 H 07/21/19 06:48: POC Glucose 103 07/21/19 11:12: POC Glucose 107 07/21/19 16:24: POC Glucose 94 Current Medications Hydrocodone Bitart/Acetaminophen ([place] 5mg-325mg) 2 tablet PO Q4H PRN PRN PRN Reason: Pain Score 1-10/10 Last Admin: 07/21/19 07:59 Dose: 2 tablet Documented by: Albuterol Sulfate (Ventolin Aerosols) 2.5 mg INHALATION Q4H PRN PRN PRN Reason: DYSPNEA/WHEEZING/SOB Albuterol Sulfate (Ventolin Aerosols) 2.5 mg INHALATION Q6HWA.RT [facility] Last Admin: 07/21/19 12:46 Dose: Not Given Documented by: [facility] Last Admin: 07/21/19 07:54 Dose: 300 mg Documented by: Amitriptyline HCl (Elavil) 25 mg PO QHS [facility] Last Admin: 07/20/19 20:55 Dose: 25 mg Documented by: Ascorbic Acid (Vitamin C) [facility] Last Admin: 07/21/19 16:53 Dose: 500 mg Documented by: Atenolol (Tenormin (Beta Jona)) 50 mg PO DAILY [facility] Last Admin: 07/21/19 07:55 Dose: 50 mg Documented by: Bisacodyl (Dulcolax) 10 mg RECTAL .PRN X 1 PRN PRN Reason: Constipation Budesonide (Pulmicort Aerosol) 0.5 mg INHALATION Q12H.RT [facility] Last Admin: 07/21/19 07:00 Dose: Not Given Documented by: Bupropion HCl (Wellbutrin Tablets) 75 mg PO BID [facility] Last Admin: 07/21/19 07:56 Dose: 75 mg Documented by: Cyclobenzaprine HCl (Flexeril) 10 mg PO TID PRN PRN Reason: muscle spasm Last Admin: 07/17/19 16:52 Dose: 10 mg Documented by: Diltiazem HCl (Cardizem Cd) 180 mg PO DAILY [facility] Last Admin: 07/21/19 07:54 Dose: 180 mg Documented by: Ergocalciferol (Vitamin D) 50,000 unit PO MO [facility] Last Admin: 07/19/19 07:40 Dose: 50,000 unit Documented by: Ferrous Sulfate (Ferrous Sulfate) 325 mg PO DAILYCM [facility] Last Admin: 07/21/19 07:54 Dose: 325 mg Documented by: Gabapentin (Neurontin) 300 mg PO TIDCM [facility] Last Admin: 07/21/19 16:53 Dose: 300 mg Documented by: Heparin Sodium (Porcine) (Heparin Na) 5,000 unit SC Q8 [facility] Last Admin: 07/21/19 13:05 Dose: 5,000 unit Documented by: Sodium Chloride () 1,000 mls @ 75 mls/hr IV .[id number] [facility] Last Admin: 07/21/19 09:28 Dose: 75 mls/hr Documented by: Cefepime HCl 1 gm/ Sodium (Chloride) 50 mls @ 100 mls/hr IV Q24 [facility] Last Infusion: 07/21/19 10:39 Dose: Infused Documented by: Vancomycin IV Pharmacy to Dose (1 ea/ Sodium Chloride) 500 mls @ 250 mls/hr IV X1 PRN; Protocol PRN Reason: Rx to Dose Vancomycin HCl 750 mg/ Sodium (Chloride) 265 mls @ 250 mls/hr IV Q24H [facility] Last Infusion: 07/21/19 18:03 Dose: Infused Documented by: Magnesium Hydroxide (Milk Of Magnesia) 30 ml PO .PRN X 1 PRN PRN Reason: Constipation Last Admin: 07/17/19 13:16 Dose: 30 ml Documented by: Multi-Ingredient Cream (Eucerin) 1 applic TOPICAL QHS [facility]; Protocol Last Admin: 07/20/19 20:55 Dose: 1 applicatio Documented by: Mupirocin (Bactroban) 1 applic TOPICAL DAILY [facility]; Protocol Last Admin: 07/21/19 07:57 Dose: 1 applicatio Documented by: Senna/Docusate Sodium (Senokot-S, Loly-Colace) 2 tablet PO BID [facility] Last Admin: 07/21/19 07:55 Dose: Not Given Documented by: Sodium Chloride () 10 - 40 ml IV UD PRN PRN Reason: SALINE FLUSH Zinc Sulfate (Zinc Sulfate) 220 mg PO DAILY [facility] Last Admin: 07/21/19 07:56 Dose: 220 mg Documented by: Medical Necessity - Tobacco Use Smoking Status: Current every day smoker - She started smoking at the age of 6 and at 1 point was smoking 3 packs of cigarettes a day. She is down to 2 packs of cigarettes a week and hopes to continue to taper and eventually stop smoking. Tobacco Use: Cigarettes Route of nutrition/ use of supplements: [] Nutritional Intake: [] IV Site: [] Gardner Catheter: [] - Assessment/Plan Antibiotics: [] Assessment/Plan: [] Active and Suspected Problems (Last Reviewed 07/15/19 @ 16:[address] Katina Roach, DO) Physical debility (Acute) due to L BKA S/P BKA (below knee amputation) (Acute) 07/09/[address] Ray Metabolic acidosis (Acute) Moderate protein-calorie malnutrition (Acute) Heart murmur (Acute) History of Clostridioides difficile infection (Acute) LLE osteo now s/p BKA 07/09/[address] Ray. Persistent leukocytosis, mild incision erythema. Surg cx neg. Drain cx sent yesterday. Recommended vanc/cefepime while cx pending to see if that can help wbc. Will follow, thank you. D/w nursing.
[2019-07-21] MEDS: Amitriptyline 25 MG Tablet PO (21:07)
[2019-07-21 22:00] VITALS: BP 157/78; PULSE 80; RESP 16; TEMP 36.8; O2SAT 97
--- NOTE | 2019-07-21 23:06 | PN.SURG_ITS ---
Patient Problems: Active and Suspected Problems (Last Reviewed 07/15/19 @ 16:[address] Katina Roach, DO) Physical debility (Acute) due to L BKA S/P BKA (below knee amputation) (Acute) 07/09/[address] Ray Metabolic acidosis (Acute) Moderate protein-calorie malnutrition (Acute) Heart murmur (Acute) History of Clostridioides difficile infection (Acute) Subjective: Postop #12 Patient is resting comfortably. Doing well in therapy. Feels tired. - Physical Exam Vitals/I&O's: Vital Signs Temp Pulse Resp BP Pulse Ox 98.2 F 80 18 127/67 H 96 07/21/19 09:27 07/21/19 09:27 07/21/19 09:27 07/21/19 09:27 07/21/19 09:27 Oxygen Delivery Method Room Air Weight: 213 lb 10.047 oz Body Mass Index (BMI) 34.8 Finger Stick Blood Glucose 97 Intake and Output for Last 24 Hours 07/19/19 07/20/19 07/21/19 23:59 23:59 23:59 Intake Total 1360 / 1660 3011.25 / 3011.25 4203.75 / 4203.75 Output Total 1002 / 1002 920 / 920 935 / 935 Balance 358 / 658 2091.25 / 2091.25 3268.75 / 3268.75 Drainage yesterday 20 ml. General: Alert, Oriented x3 HEENT: PERRLA, EOMI Oral: Moist Mucosa Neck: Supple Abdomen: Soft, Non-Distended Skin: Incision - left BKA stump incision dry and intact. Mild redness at the suture line. Stump is soft. No clinical evidence of hematoma. No fluctuance. No purulent drainage. Neurological: Cranial nerves II-XII grossly intact Psych/Mental Status: Normal Affect, Appropriate Microbiology Past 72 Hours 07/20/19 10:40 Joel Escalona Drainage Gram Stain - Final 07/20/19 10:40 Joel Escalona Drainage Wound Culture - Preliminary No growth-Final to follow Laboratory Results 07/21/19 06:35: WBC 23.3 H, RBC 3.10 L, Hgb 8.1 L, Hct 26.7 L, MCV 86.1, MCH 26.1 L, MCHC 30.3 L, RDW Std Deviation 54.2 H, RDW Coeff of Racheal 17.5 H, Plt Count 392, MPV 9.4, Neut % (Auto) Not Reportable, Absolute Neuts (auto) 19.6 H, Absolute Lymphs (auto) 1.86, Total Counted 100, Neutrophils % (Manual) 81 H, Band Neutrophils % 3, Lymphocytes % (Manual) 8 L, Monocytes % (Manual) 3, Eosinophils % (Manual) 3, Metamyelocytes % 1, Myelocytes % 1 H, Diff Path Review Reviewed, Platelet Estimate ADEQUATE, RBC Morphology NORM C+C, ESR 114 H 07/21/19 06:35: Sodium 135 L, Potassium 4.9, Chloride 105, Carbon Dioxide 21.0, Anion Gap 9, BUN 91 H, Creatinine 2.37 H, Estim Creat Clear Calc 23.34, Est GFR (MDRD) Af Amer 27 L, Est GFR (MDRD) Non-Af 22 L, BUN/Creatinine Ratio 38.4 H, Glucose 107 H, Calcium 8.8, C-React Prot Ext Range 203.00 H 07/21/19 06:48: POC Glucose 103 07/21/19 11:12: POC Glucose 107 07/21/19 16:24: POC Glucose 94 Current Medications Hydrocodone Bitart/Acetaminophen ([place] 5mg-325mg) 2 tablet PO Q4H PRN PRN PRN Reason: Pain Score 1-10/10 Last Admin: 07/21/19 23:01 Dose: 2 tablet Documented by: Albuterol Sulfate (Ventolin Aerosols) 2.5 mg INHALATION Q4H PRN PRN PRN Reason: DYSPNEA/WHEEZING/SOB Albuterol Sulfate (Ventolin Aerosols) 2.5 mg INHALATION Q6HWA.RT [facility] Last Admin: 07/21/19 19:00 Dose: Not Given Documented by: [facility]) [facility] Last Admin: 07/21/19 07:54 Dose: 300 mg Documented by: Amitriptyline HCl (Elavil) 25 mg PO QHS [facility] Last Admin: 07/21/19 21:07 Dose: 25 mg Documented by: Ascorbic Acid (Vitamin C) [facility] Last Admin: 07/21/19 16:53 Dose: 500 mg Documented by: Atenolol (Tenormin (Beta Jona)) 50 mg PO DAILY [facility] Last Admin: 07/21/19 07:55 Dose: 50 mg Documented by: Bisacodyl (Dulcolax) 10 mg RECTAL .PRN X 1 PRN PRN Reason: Constipation Budesonide (Pulmicort Aerosol) 0.5 mg INHALATION Q12H.RT [facility] Last Admin: 07/21/19 19:00 Dose: Not Given Documented by: Bupropion HCl (Wellbutrin Tablets) 75 mg PO BID [facility] Last Admin: 07/21/19 21:07 Dose: 75 mg Documented by: Cyclobenzaprine HCl (Flexeril) 10 mg PO TID PRN PRN Reason: muscle spasm Last Admin: 07/17/19 16:52 Dose: 10 mg Documented by: Diltiazem HCl (Cardizem Cd) 180 mg PO DAILY [facility] Last Admin: 07/21/19 07:54 Dose: 180 mg Documented by: Ergocalciferol (Vitamin D) 50,000 unit PO MO [facility] Last Admin: 07/19/19 07:40 Dose: 50,000 unit Documented by: Ferrous Sulfate (Ferrous Sulfate) 325 mg PO DAILYCM [facility] Last Admin: 07/21/19 07:54 Dose: 325 mg Documented by: Gabapentin (Neurontin) 300 mg PO TIDCM [facility] Last Admin: 07/21/19 16:53 Dose: 300 mg Documented by: Heparin Sodium (Porcine) (Heparin Na) 5,000 unit SC Q8 [facility] Last Admin: 07/21/19 21:10 Dose: 5,000 unit Documented by: Sodium Chloride () 1,000 mls @ 75 mls/hr IV .[id number] [facility] Last Infusion: 07/21/19 21:09 Dose: 75 mls/hr Documented by: Cefepime HCl 1 gm/ Sodium (Chloride) 50 mls @ 100 mls/hr IV Q24 [facility] Last Infusion: 07/21/19 10:39 Dose: Infused Documented by: Vancomycin IV Pharmacy to Dose (1 ea/ Sodium Chloride) 500 mls @ 250 mls/hr IV X1 PRN; Protocol PRN Reason: Rx to Dose Vancomycin HCl 750 mg/ Sodium (Chloride) 265 mls @ 250 mls/hr IV Q24H [facility] Last Infusion: 07/21/19 18:03 Dose: Infused Documented by: Magnesium Hydroxide (Milk Of Magnesia) 30 ml PO .PRN X 1 PRN PRN Reason: Constipation Last Admin: 07/17/19 13:16 Dose: 30 ml Documented by: Multi-Ingredient Cream (Eucerin) 1 applic TOPICAL QHS [facility]; Protocol Last Admin: 07/21/19 21:07 Dose: 1 applicatio Documented by: Mupirocin (Bactroban) 1 applic TOPICAL DAILY [facility]; Protocol Last Admin: 07/21/19 07:57 Dose: 1 applicatio Documented by: Senna/Docusate Sodium (Senokot-S, Loly-Colace) 2 tablet PO BID [facility] Last Admin: 07/21/19 21:07 Dose: Not Given Documented by: Sodium Chloride () 10 - 40 ml IV UD PRN PRN Reason: SALINE FLUSH Zinc Sulfate (Zinc Sulfate) 220 mg PO DAILY [facility] Last Admin: 07/21/19 07:56 Dose: 220 mg Documented by: Medical Necessity - Tobacco Use Smoking Status: Current every day smoker - She started smoking at the age of 6 and at 1 point was smoking 3 packs of cigarettes a day. She is down to 2 packs of cigarettes a week and hopes to continue to taper and eventually stop smoking. Tobacco Use: Cigarettes Assessment/Plan All Active Problems (Last Reviewed 07/15/19 @ 16:[address] Katina Roach, DO) Physical debility (Acute) S/P BKA (below knee amputation) (Acute) Metabolic acidosis (Acute) Moderate protein-calorie malnutrition (Acute) Heart murmur (Acute) History of Clostridioides difficile infection (Acute) Osteomyelitis (Acute) Acute osteomyelitis involving ankle and foot (Acute) Diabetic foot ulcer associated with type 2 diabetes mellitus (Acute) Gangrene of toe of right foot (Resolved) Non-pressure chronic ulcer of other part of right foot limited to breakdown of skin (Resolved) Non-pressure chronic ulcer of other part of right foot with necrosis of bone (Resolved) Open left ankle fracture (Resolved) Struck statnry object w/o fall (Resolved) Visual disturbance (Resolved) Cellulitis and abscess of left lower extremity (Ruled-out) 1. Nonhealing infected diabetic ulcer left ankle with abscess. 2. Osteomyelitis. 3. History of MRSA. 4. History of Pseudomonas. 5. Recurrent dislocation left ankle. 6. Late effect open fracture left ankle. 7. Late effect mechanical breakdown hardware fixation. 8. Diabetes mellitus. 9. Smoker. 10. s/p left below knee amputation. 11. Persistent leukocytosis. The stump incision is dry and intact. Mild redness at the incision line. No clinical evidence of hematoma. No fluctuance. No purulent drainage. Culture was taken from the drain. It is negative thus far. IV antibiotics were restarted (Vancomycin and Cefepime). I don't think the stump is the source of the WBC since the WBC has been in the 20 range before the amputation and after the amputation. However, can order a CT to look for a pocket of fluid deep to the muscle that could be contributing. If present, can open the incision and begin wound care with Dakin's dressing changes or a VAC. In the future, then can proceed with delayed complex secondary wound closure. Will tentatively remove the drain early next week such as Friday. Will remove the sutures in the next 1-2 weeks. Continue therapy to the stump. Encouraged patient to stop smoking as it may have deleterious effects on wound healing.
[2019-07-22 00:31] LABS: Bedside Glucose 111 mg/dL (70-110)
--- NOTE | 2019-07-22 00:40 | NURSING ---
Pt was c/o feeling hot and sweaty, blood sugar was 111, vitals: wnl except temp was 99.8. Had been given norco at 2300. No other complaints, will continue to monitor.
[2019-07-22 00:42] VITALS: BP 119/54; PULSE 86; RESP 20; TEMP 37.7; O2SAT 94
[2019-07-22] MEDS: 0.9% Normal Saline 1,000 ML 75 ML IV (02:35)
[2019-07-22] MEDS: Heparin Injection (Vial) 5,000 UNIT/ML VIAL 5000 UNIT SC ×3 (05:41→22:46)
[2019-07-22] MEDS: HYDROcodone Bitartrate/Apap 5/325 Tablet PO ×2 (06:00→23:15)
[2019-07-22 07:11] LABS: Bedside Glucose 108 mg/dL (70-110)
[2019-07-22 09:32] VITALS: BP 129/61; PULSE 72; RESP 18; TEMP 36.9; O2SAT 95
[2019-07-22] MEDS: Atenolol 50 MG Tablet PO (09:55)
[2019-07-22] MEDS: dilTIAZem CD 180 MG Capsule PO (09:55)
[2019-07-22] MEDS: Allopurinol 300 MG Tablet PO (09:55)
[2019-07-22] MEDS: Ferrous Sulfate 325 MG Tablet PO (09:55)
[2019-07-22] MEDS: Ascorbic Acid 500 MG Tablet PO ×2 (09:55→17:16)
[2019-07-22] MEDS: Gabapentin 300 MG Capsule PO ×3 (09:55→17:16)
[2019-07-22] MEDS: buPROPion 75 MG Tablet PO ×2 (09:55→22:46)
[2019-07-22] MEDS: Mupirocin Ointment 22gm Tube 1 APPLIC TOPICAL (10:05)
--- NOTE | 2019-07-22 10:29 | PN.ID_ITS ---
Patient Problems: Active and Suspected Problems (Last Reviewed 07/15/19 @ 16:[address] Katina Roach, DO) Physical debility (Acute) due to L BKA S/P BKA (below knee amputation) (Acute) 07/09/[address] Ray Metabolic acidosis (Acute) Moderate protein-calorie malnutrition (Acute) Heart murmur (Acute) History of Clostridioides difficile infection (Acute) Subjective: Feeling better, pain controlled, no fever - Physical Exam Vitals/I&O's: Vital Signs Temp Pulse Resp BP Pulse Ox 98.5 F 72 18 129/61 H 95 07/22/19 09:32 07/22/19 09:32 07/22/19 09:32 07/22/19 09:32 07/22/19 09:32 Oxygen Delivery Method Room Air Weight: 96.9 kg Body Mass Index (BMI) 34.8 Finger Stick Blood Glucose 97 Intake and Output for Last 24 Hours 07/20/19 07/21/19 07/22/19 23:59 23:59 23:59 Intake Total 3011.25 / 3011.25 4203.75 / 4203.75 867.5 / 867.5 Output Total 920 / 920 950 / 950 Balance 2091.25 / 2091.25 3253.75 / 3253.75 847.5 / 847.5 General: Alert, Cooperative, No apparent distress Lungs: Clear to auscultation, Normal air movement Cardiovascular: Regular rate, Regular Rhythm Abdomen: Soft, Non Tender, Non-Distended Skin: Ulcer/ Wound - leg wrapped Microbiology Past 72 Hours 07/20/19 10:40 Joel Escalona Drainage Gram Stain - Final 07/20/19 10:40 Joel Escalona Drainage Wound Culture - Preliminary No growth-Final to follow Laboratory Results 07/21/19 06:35: Diff Path Review Reviewed 07/21/19 11:12: POC Glucose 107 07/21/19 16:24: POC Glucose 94 07/22/19 00:24: POC Glucose 111 H 07/22/19 07:00: POC Glucose 108 Current Medications Hydrocodone Bitart/Acetaminophen ([place] 5mg-325mg) 2 tablet PO Q4H PRN PRN PRN Reason: Pain Score 1-01/07 Last Admin: 07/22/19 06:00 Dose: 2 tablet Documented by: Albuterol Sulfate (Ventolin Aerosols) 2.5 mg INHALATION Q4H PRN PRN PRN Reason: DYSPNEA/WHEEZING/SOB Albuterol Sulfate (Ventolin Aerosols) 2.5 mg INHALATION Q6HWA.RT [facility] Last Admin: 07/22/19 07:31 Dose: Not Given Documented by: Allopurinol (Zyloprim) 300 mg PO DAILYCM [facility] Last Admin: 07/22/19 09:55 Dose: 300 mg Documented by: Amitriptyline HCl (Elavil) 25 mg PO QHS [facility] Last Admin: 07/21/19 21:07 Dose: 25 mg Documented by: Ascorbic Acid (Vitamin C) 500 mg PO BIDCM [facility] Last Admin: 07/22/19 09:55 Dose: 500 mg Documented by: Atenolol (Tenormin (Beta Jona)) 50 mg PO DAILY [facility] Last Admin: 07/22/19 09:55 Dose: 50 mg Documented by: Bisacodyl (Dulcolax) 10 mg RECTAL .PRN X 1 PRN PRN Reason: Constipation Budesonide (Pulmicort Aerosol) 0.5 mg INHALATION Q12H.RT [facility] Last Admin: 07/22/19 07:30 Dose: Not Given Documented by: Bupropion HCl (Wellbutrin Tablets) 75 mg PO BID [facility] Last Admin: 07/22/19 09:55 Dose: 75 mg Documented by: Cyclobenzaprine HCl (Flexeril) 10 mg PO TID PRN PRN Reason: muscle spasm Last Admin: 07/17/19 16:52 Dose: 10 mg Documented by: Diltiazem HCl (Cardizem Cd) 180 mg PO DAILY [facility] Last Admin: 07/22/19 09:55 Dose: 180 mg Documented by: Ergocalciferol (Vitamin D) 50,000 unit PO MO [facility] Last Admin: 07/19/19 07:40 Dose: 50,000 unit Documented by: Ferrous Sulfate (Ferrous Sulfate) 325 mg PO DAILYCM [facility] Last Admin: 07/22/19 09:55 Dose: 325 mg Documented by: Gabapentin (Neurontin) 300 mg PO TIDCM [facility] Last Admin: 07/22/19 09:55 Dose: 300 mg Documented by: Heparin Sodium (Porcine) (Heparin Na) 5,000 unit SC Q8 [facility] Last Admin: 07/22/19 05:41 Dose: 5,000 unit Documented by: Sodium Chloride () 1,000 mls @ 75 mls/hr IV .[id number] [facility] Last Admin: 07/22/19 02:35 Dose: 75 mls/hr Documented by: Cefepime HCl 1 gm/ Sodium (Chloride) 50 mls @ 100 mls/hr IV Q24 [facility] Last Admin: 07/22/19 09:58 Dose: 100 mls/hr Documented by: Vancomycin IV Pharmacy to Dose (1 ea/ Sodium Chloride) 500 mls @ 250 mls/hr IV X1 PRN; Protocol PRN Reason: Rx to Dose Vancomycin HCl 750 mg/ Sodium (Chloride) 265 mls @ 250 mls/hr IV Q24H [facility] Last Infusion: 07/21/19 18:03 Dose: Infused Documented by: Magnesium Hydroxide (Milk Of Magnesia) 30 ml PO .PRN X 1 PRN PRN Reason: Constipation Last Admin: 07/17/19 13:16 Dose: 30 ml Documented by: Multi-Ingredient Cream (Eucerin) 1 applic TOPICAL QHS [facility]; Protocol Last Admin: 07/21/19 21:07 Dose: 1 applicatio Documented by: Mupirocin (Bactroban) 1 applic TOPICAL DAILY [facility]; Protocol Last Admin: 07/22/19 10:05 Dose: 1 applicatio Documented by: Senna/Docusate Sodium (Senokot-S, Loly-Colace) 2 tablet PO BID [facility] Last Admin: 07/22/19 09:50 Dose: Not Given Documented by: Sodium Chloride () 10 - 40 ml IV UD PRN PRN Reason: SALINE FLUSH Zinc Sulfate (Zinc Sulfate) 220 mg PO DAILY [facility] Last Admin: 07/22/19 09:55 Dose: 220 mg Documented by: Medical Necessity - Tobacco Use Smoking Status: Current every day smoker - She started smoking at the age of 6 and at 1 point was smoking 3 packs of cigarettes a day. She is down to 2 packs of cigarettes a week and hopes to continue to taper and eventually stop smoking. Tobacco Use: Cigarettes Route of nutrition/ use of supplements: [] Nutritional Intake: [] IV Site: [] Gardner Catheter: [] - Assessment/Plan Antibiotics: [] Assessment/Plan: [] Active and Suspected Problems (Last Reviewed 07/15/19 @ 16:[address] Katina Roach, DO) Physical debility (Acute) due to L BKA S/P BKA (below knee amputation) (Acute) 07/09/[address] Ray Metabolic acidosis (Acute) Moderate protein-calorie malnutrition (Acute) Heart murmur (Acute) History of Clostridioides difficile infection (Acute) LLE osteo now s/p BKA 07/09/[address] Ray. Persistent leukocytosis, mild incision erythema. Surg cx neg. Drain cx neg so far Recommended vanc/cefepime while cx pending to see if that can help wbc. CBC in AM. Will follow. D/w nursing.
--- NOTE | 2019-07-22 10:33 | PCM.PN.BLA ---
Progress Note Day #3 cefepime and vancomycin T-max over the past 24 hours is 99.8 ?F. Temp this a.m. is 98.5. VSS-blood pressures are well controlled. Heart rate is within normal limits. Maintaining appropriate oxygen saturation on RA Oral intake is fair Discussed with nursing - no problems that need addressed Reviewed the PT/OT notes Medication list reviewed. Blood sugar record reviewed: Blood sugars are under excellent control on diet alone. The ESR on 07/21/2019 was 114 with a CRP of 203. White blood cell count on 422 was 23.3, down from 24.4 on 07/19/2019. Hemoglobin is 8.1 following some IV fluids. He has a persistent left shift with 81% neutrophils and 3% band neutrophils. There is 1 metamyelocyte and 1 myelocyte. Gram stain of the fluid in the drain showed 2+ red blood cells, no white blood cells and no organisms. No growth so far. I reviewed Dr. Bejarano and Dr. Ray's notes. alert, appropriate, oriented x3, no apparent distress Lungs-better air exchange today with no wheezing or rales Heart-regular rate and rhythm Abdomen-soft, nontender The left leg stump looks better with less erythema and less warmth to touch than 2 days ago. the margins are well coapted with no purulent DC from the wound observed. No fluctuant areas Examined with the wound care nurse Impressions 1. Cellulitis left stump status post BKA - If the WBC is not continuing to come down on the lab tomorrow will likely need to CT/or US the stump to make sure there is no abscess. Continue the Vanco and the Cefepime today 2. Acute on chronic renal failure-improved after fluids. Will discontinue fluids today and recheck BMP in the a.m. 3. Hyperkalemia-resolved. Patient is now on a potassium restricted diet. 4. Diabetes mellitus type 2-diet controlled 5. Tobacco dependence - Smoking cessation counselling was done at admission. Hopefully this period of non-smoking that has gotten her through the physical addiction will continue at [facility]. [facility] Vital Signs/Narrative: Vital Signs Temp Pulse Resp BP Pulse Ox 07/22/19 09:32 98.5 F 72 18 129/61 H 95 Inpatient E&M: 94745 Subs Hosp L2
--- NOTE | 2019-07-22 11:23 | NURSING ---
wound photo: left leg
--- NOTE | 2019-07-22 14:20 | CASEMGMT ---
Social Work Spoke with pt about insurance issuing DC date 07/26. Pt agreeable and requesting [facility] PT/OT/SN as used prior. No DME needs. Referral made to [facility]. Will Team 07/25. Plan: DC home with mother 07/26 with [facility] PT/OT/SN. Citlali Nava, LEONARDO QUINNW
[2019-07-22 17:13] LABS: Vancomycin, Trough Level 18.5 ug/mL (5.0-15.0)
[2019-07-22] MEDS: 0.9% Saline Lock 10 ML Syringe IV (17:17)
[2019-07-22 18:00] LABS: Bedside Glucose 115 mg/dL (70-110)
[2019-07-22 19:18] VITALS: BP 152/73; PULSE 72; RESP 18; TEMP 36.8; O2SAT 96
--- NOTE | 2019-07-22 20:10 | PCM.RX.CS ---
Consult Pharmacy has been consulted to manage selected antiobiotic: Vancomycin Type of Consult: Follow-up Suspected Infection: Skin/Soft tissue Labs: Sodium 135 mmol/L (136-145) L 07/21/19 06:35 Potassium 4.9 mmol/L (3.5-5.1) 07/21/19 06:35 Chloride 105 mmol/L (98-107) 07/21/19 06:35 Carbon Dioxide 21.0 mmol/L (21.0-32.0) 07/21/19 06:35 Anion Gap 9 (5-15) 07/21/19 06:35 BUN 91 mg/dL (7-18) H 07/21/19 06:35 Creatinine 2.37 mg/dL (0.55-1.02) H 07/21/19 06:35 Est GFR (MDRD) Af Amer 27 mL/min (>60) L 07/21/19 06:35 Est GFR (MDRD) Non-Af 22 mL/min (>60) L 07/21/19 06:35 BUN/Creatinine Ratio 38.4 RATIO (10-20) H 07/21/19 06:35 Glucose 107 mg/dL (74-106) H 07/21/19 06:35 Vancomycin Trough 18.5 ug/mL (5.0-15.0) H 07/22/19 16:30 Microbiology: Microbiology 07/20/19 10:40 Joel Escalona Drainage Gram Stain - Final 07/20/19 10:40 Joel Escalona Drainage Wound Culture - Final No growth aerobically. Goal Trough: 10-15 mcg/mL Pharmacy Plan for Drug Dosin/23--trough resulted at 18.5 (goal trough 10-15) srcr: 2.37 administered doses: 07/20-750mg at 1656 07/21-750mg at 1717 recommend decreasing dose to 500mg q24h starting 07/24/19 at 0600. That should give the 750mg dose time to clear (~36 hour dosing interval) trough: 07/26/19 @ 0530 Pharmacy Service will continue to monitor and adjust dosing as required. Follow-Up Labs: Trough Vancomycin - 07/26/19 @ 0530
[2019-07-22] MEDS: Senna/Docusate Sodium 1 Tablet 2 TABLET PO (22:46)
[2019-07-22] MEDS: Amitriptyline 25 MG Tablet PO (22:47)
[2019-07-22] MEDS: cycloBENZAPRine HCl 10 MG Tablet PO (23:16)
[2019-07-22 23:41] LABS: Bedside Glucose 138 mg/dL (70-110)
[2019-07-23 01:17] VITALS: PULSE 67; O2SAT 93
[2019-07-23] MEDS: 0.9% Saline Lock 10 ML Syringe IV (02:32)
[2019-07-23] MEDS: Heparin Injection (Vial) 5,000 UNIT/ML VIAL 5000 UNIT SC ×3 (05:03→22:02)
[2019-07-23 06:30] LABS: Absolute Lymphocyte Count 2.07 X10^3/uL (0.83-4.51); Absolute Neutrophil Count 19.6 X10^3/uL (2.0-7.7); Basophil# 0.11 X10^3/uL; Basophil% 0.4 % (0-1); Eosinophil# 0.54 X10^3/uL; Eosinophils% 2.2 % (0-5); Hematocrit 26.4 % (37-47); Hemoglobin 8.2 g/dL (12.0-15.0); Lymphocyte # 2.07 X10^3/ul (4.0); Lymphocyte % 8.3 % (19-41); Mean Corp Hgb Conc 31.1 g/dL (32-36); Mean Corpuscular Hgb 27.2 pg (27.0-32.0); Mean Corpuscular Volume 87.4 fL (81-99); Mean Platelet Vol. 9.3 fl (6.2-12.0); Monocyte# 1.63 X10^3/uL; Monocyte% 6.5 % (0-10); NRBC Flagged by Analyzer 0.1 % (0-5); Neutrophil # 19.61 X10^3/uL (2.7-7.7); Neutrophil % 78.3 % (47-70); POSITIVE DIFFERENTIAL YES; Platelet Count 360 K/mm3 (150-450); RBC Distribution Width CV 17.4 % (11.6-14.6); RBC Distribution Width SD 55.7 fl (35.1-43.9); Red Blood Count 3.02 M/mm3 (4.2-5.4)
[2019-07-23 06:33] LABS: Differential Indicated SCAN CRITERIA MET
[2019-07-23 06:46] LABS: Differential Comment SCANNED
[2019-07-23 07:04] LABS: Anion Gap 8 (5-15); BUN 71 mg/dL (7-18); BUN/Creat Ratio 26.8 RATIO (10-20); Chloride 105 mmol/L (98-107); Creatinine, Serum 2.65 mg/dL (0.55-1.02); EST Glomerular Filtration Rate 19 mL/min (>60); Est Glom Filt Rate - Afr Amer 24 mL/min (>60); Estimated Creatinine Clearance 20.87 ml/min; Glucose 148 mg/dL (74-106); Potassium 4.4 mmol/L (3.5-5.1); Sodium Level 134 mmol/L (136-145)
[2019-07-23 07:05] LABS: Bedside Glucose 125 mg/dL (70-110)
[2019-07-23] MEDS: Ascorbic Acid 500 MG Tablet PO ×2 (07:57→18:29)
[2019-07-23] MEDS: Allopurinol 300 MG Tablet PO (07:57)
[2019-07-23] MEDS: Ferrous Sulfate 325 MG Tablet PO (07:57)
[2019-07-23] MEDS: dilTIAZem CD 180 MG Capsule PO (07:57)
[2019-07-23] MEDS: Gabapentin 300 MG Capsule PO ×3 (07:57→18:29)
[2019-07-23] MEDS: Senna/Docusate Sodium 1 Tablet 2 TABLET PO ×2 (07:57→22:04)
[2019-07-23] MEDS: buPROPion 75 MG Tablet PO ×2 (07:58→22:03)
[2019-07-23] MEDS: Atenolol 50 MG Tablet PO (07:58)
[2019-07-23] MEDS: HYDROcodone Bitartrate/Apap 5/325 Tablet PO ×2 (08:02→22:13)
[2019-07-23] MEDS: Mupirocin Ointment 22gm Tube 1 APPLIC TOPICAL (08:06)
[2019-07-23 08:19] VITALS: BP 146/93; PULSE 62; RESP 18; TEMP 36.5; O2SAT 99
--- NOTE | 2019-07-23 10:34 | PCM.PN.BLA ---
Progress Note She has been afebrile since the temp of 99.8 at just after midnight on 07/22/2019. She is maintaining appropriate oxygen saturation on room air Blood pressures are erratic. The blood pressure this a.m. is 146/93 and last evening it was 152/73. Blood sugars remain well controlled. All lab was personally reviewed. The white blood cell count remains elevated at 25,000 with 78% neutrophils and 4.3% immature granulocytes. Hemoglobin is stable at 8.2 and platelets are within normal limits. The BMP shows a decreased sodium at 143 with a potassium of 4.4 today. The BUN is 71, down from 91 on 07/21/2019. The creatinine is 2.65 which is stable. Culture of the drainage from the Joel-Escalona drain had no growth. The overnight trending pulse ox revealed only 1 desaturation event of 3 seconds. she denies cough and has no dysuria. No CP and no N/V/abdominal pain. No ST and no sinus pain. She is feeling depressed and she has not been sleeping well. In the past she was on amitriptyline at at bedtime for sleep. She also states that it seemed to even her mood out. alert, flat affect, some tears. She has been dealing with the injury to the left tib/fib for quite a while......initial surgery was done by Dr. Covington and she was able to save the foot but, the foot got infected and the hardware had to be removed and then she was wheelchair bound. she used to be independent with ADL's and driving and she has not been able to drive for at least a year now and this has made it very hard to get to her appts. She has been left stranded by the transport company she uses to transport to her appts. We never got records from Dr. Jimenez that I requested. Heart - RRR Lungs-clear to auscultation Impressions 1. Debility secondary to left BKA secondary to osteomyelitis of the tibia 2. Diet-controlled diabetes mellitus type 2 3. Stage IV chronic renal failure 4. Persistent leukocytosis-no improvement with cefepime and vancomycin. ESR and CRP are markedly elevated but the patient has a history of an inflammatory arthropathy and this could be the etiology. She previously saw Dr. Cota but was dropped when her insurance changed to care source. she has also been seen in [place] by rheumatology in the past but, she is tired of going out of town for appts and getting stranded by the insurance company. No red swollen joints at this time but, she does have stiffness in her hands 5. Inflammatory arthropathy - tells me that she has been told by that she has both RA and SLE [place] 294 in the past but anti - ds DNA negative in the past. RA and CCP have both been negative in the past. Straight cath for UA and urine culture If the UA is unremarkable will order a non-contrasted CT of the stump looking for an abscess. Appreciate Dr. Bejarano's input Increase the Elavil to 50 mg Q HS Continue therapy Request Dr. 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
[2019-07-23 11:27] LABS: Bacteria 0 SEEN /hpf (None Seen); Mucous, Urine 0 SEEN /hpf (<or=2+); Red Blood Cells-Urine 0 SEEN /hpf (0-5); Squamous Epithelial Cells - UA 0 SEEN /hpf (5-10); White Blood Cells 0 SEEN /hpf (0-5)
[2019-07-23 11:51] LABS: Color, Urine Yellow (Yellow); Glucose, Dipstick Normal (Normal); Ketone-Dipstick Negative (Negative); Leukocyte Esterase-Dipstick Negative /ul (Negative); Nitrite-Dipstick Negative (Negative); Occult Blood-Urine Negative /ul (Negative); Protein-Dipstick 100 mg/dl (Negative); Urine Bilirubin Dipstick Negative (Negative); Urine Clarity Clear (Clear); Urine Urobilinogen Normal (Normal)
--- NOTE | 2019-07-23 12:09 | CT_ITS ---
STUDY: CT LOWER EXTREMITY LEFT REASON FOR EXAM: Female, 59 years old. Recent left BKA, leukocytosis, ? abscess. Hx diabetes. RADIATION DOSAGE (If Supplied By Facility): CTDIvol = ( 15.35 ) mGy, DLP = ( 603.22 ) mGycm. Individualized dose optimization techniques were used for this CT.? TECHNIQUE: Multiple axial tomographic images of the left lower extremity were was performed. Sagittal and coronal reconstruction was obtained as well. COMPARISON: None. FINDINGS: The patient is status post below knee amputation. There is evidence of a increased soft tissue density at the operative site with overlying skin thickening. A drainage catheter is seen in the region of the stump. There is no evidence of abscess or abnormal fluid collection. CT/Extremity Lower without Contra IMPRESSION: Status post below knee amputation with postoperative changes. No evidence of fluid or abscess collection. Electronically Signed: Mahesh Olivia, at 14:07 EDT , Service support ,
[2019-07-23 17:40] LABS: Bedside Glucose 140 mg/dL (70-110)
[2019-07-23 22:00] VITALS: BP 161/80; PULSE 74; RESP 16; TEMP 37.3; O2SAT 97
[2019-07-23] MEDS: Amitriptyline 25 MG Tablet 50 MG PO (22:04)
[2019-07-23 23:05] LABS: Bedside Glucose 122 mg/dL (70-110)
[2019-07-24] MEDS: Heparin Injection (Vial) 5,000 UNIT/ML VIAL 5000 UNIT SC ×3 (05:36→20:51)
[2019-07-24] MEDS: Vancomycin IV 500 MG/100 ML BAG 100 MG IV (05:36)
[2019-07-24 07:11] LABS: Bedside Glucose 142 mg/dL (70-110)
[2019-07-24 08:30] VITALS: BP 135/68; PULSE 61; RESP 16; TEMP 37.1; O2SAT 96
[2019-07-24] MEDS: Gabapentin 300 MG Capsule PO ×3 (08:49→16:30)
[2019-07-24] MEDS: Allopurinol 300 MG Tablet PO (08:49)
[2019-07-24] MEDS: dilTIAZem CD 180 MG Capsule PO (08:49)
[2019-07-24] MEDS: Ferrous Sulfate 325 MG Tablet PO (08:49)
[2019-07-24] MEDS: Ascorbic Acid 500 MG Tablet PO ×2 (08:49→16:30)
[2019-07-24] MEDS: Senna/Docusate Sodium 1 Tablet 2 TABLET PO (08:50)
[2019-07-24] MEDS: Atenolol 50 MG Tablet PO (08:50)
[2019-07-24] MEDS: buPROPion 75 MG Tablet PO (08:50)
[2019-07-24] MEDS: Mupirocin Ointment 22gm Tube 1 APPLIC TOPICAL (08:51)
[2019-07-24] MEDS: HYDROcodone Bitartrate/Apap 5/325 Tablet PO ×2 (08:53→20:56)
[2019-07-24 11:50] LABS: Bedside Glucose 105 mg/dL (70-110)
[2019-07-24 17:40] LABS: Bedside Glucose 110 mg/dL (70-110)
[2019-07-24] MEDS: Magnesium Hydroxide 30 ML UDC PO (18:09)
[2019-07-24 19:00] VITALS: BP 147/60; PULSE 69; RESP 16; TEMP 36.9; O2SAT 99
[2019-07-24] MEDS: Amitriptyline 25 MG Tablet 50 MG PO (20:51)
[2019-07-24 22:00] VITALS: RESP 15; O2SAT 99
[2019-07-25] MEDS: Heparin Injection (Vial) 5,000 UNIT/ML VIAL 5000 UNIT SC ×3 (05:41→20:19)
[2019-07-25] MEDS: Vancomycin IV 500 MG/100 ML BAG 100 MG IV (05:41)
[2019-07-25 06:56] LABS: Bedside Glucose 128 mg/dL (70-110)
[2019-07-25] MEDS: Allopurinol 300 MG Tablet PO (07:50)
[2019-07-25] MEDS: Ascorbic Acid 500 MG Tablet PO ×2 (07:50→17:10)
[2019-07-25] MEDS: Ferrous Sulfate 325 MG Tablet PO (07:50)
[2019-07-25] MEDS: buPROPion 75 MG Tablet PO ×2 (07:51→20:19)
[2019-07-25] MEDS: Gabapentin 300 MG Capsule PO ×3 (07:51→17:10)
[2019-07-25] MEDS: dilTIAZem CD 180 MG Capsule PO (07:51)
[2019-07-25] MEDS: Senna/Docusate Sodium 1 Tablet 2 TABLET PO ×2 (07:52→20:19)
[2019-07-25] MEDS: Atenolol 50 MG Tablet PO (07:52)
[2019-07-25] MEDS: Mupirocin Ointment 22gm Tube 1 APPLIC TOPICAL (09:30)
[2019-07-25 10:00] VITALS: BP 145/73; PULSE 68; RESP 16; TEMP 36.8; O2SAT 97
[2019-07-25 16:56] LABS: Bedside Glucose 134 mg/dL (70-110)
[2019-07-25] MEDS: Amitriptyline 25 MG Tablet 50 MG PO (20:19)
[2019-07-25] MEDS: HYDROcodone Bitartrate/Apap 5/325 Tablet PO (20:29)
[2019-07-25 20:30] VITALS: PULSE 75; RESP 18; O2SAT 99
[2019-07-25 22:00] VITALS: BP 124/50; PULSE 75; RESP 18; TEMP 37.1; TEMP 37.6; O2SAT 99
[2019-07-26 06:30] LABS: Creatinine, Serum 2.44 mg/dL (0.55-1.02); EST Glomerular Filtration Rate 21 mL/min (>60); Est Glom Filt Rate - Afr Amer 26 mL/min (>60); Estimated Creatinine Clearance 22.67 ml/min
[2019-07-26] MEDS: HYDROcodone Bitartrate/Apap 5/325 Tablet PO ×2 (06:32→23:33)
[2019-07-26] MEDS: Heparin Injection (Vial) 5,000 UNIT/ML VIAL 5000 UNIT SC ×3 (06:33→20:59)
[2019-07-26 06:36] LABS: Bedside Glucose 114 mg/dL (70-110)
[2019-07-26] MEDS: 0.9% Saline Lock 10 ML Syringe IV (06:44)
[2019-07-26] MEDS: Vancomycin IV 500 MG/100 ML BAG 100 MG IV (06:44)
--- NOTE | 2019-07-26 07:05 | NURSING ---
IV infiltrated to right upper arm. Nursing grain and yeast plants supervisor aware and due to difficult IV placement, she will try placement. Approx half the bag of Vanc was given at this time.
[2019-07-26] MEDS: Senna/Docusate Sodium 1 Tablet 2 TABLET PO ×2 (07:57→20:59)
[2019-07-26] MEDS: Atenolol 50 MG Tablet PO (07:57)
[2019-07-26] MEDS: dilTIAZem CD 180 MG Capsule PO (07:57)
[2019-07-26] MEDS: Gabapentin 300 MG Capsule PO ×3 (07:57→16:54)
[2019-07-26] MEDS: Ferrous Sulfate 325 MG Tablet PO (07:57)
[2019-07-26] MEDS: buPROPion 75 MG Tablet PO ×2 (07:57→21:01)
[2019-07-26] MEDS: Allopurinol 300 MG Tablet PO (07:57)
[2019-07-26] MEDS: Mupirocin Ointment 22gm Tube 1 APPLIC TOPICAL (08:01)
[2019-07-26 08:24] LABS: Hematocrit 28.4 % (37-47); Hemoglobin 8.5 g/dL (12.0-15.0); Mean Corp Hgb Conc 29.9 g/dL (32-36); Mean Corpuscular Hgb 26.4 pg (27.0-32.0); Mean Corpuscular Volume 88.2 fL (81-99); POSITIVE COUNT YES; Platelet Count 427 K/mm3 (150-450); RBC Distribution Width CV 17.6 % (11.6-14.6); RBC Distribution Width SD 56.6 fl (35.1-43.9); Red Blood Count 3.22 M/mm3 (4.2-5.4)
--- NOTE | 2019-07-26 08:25 | NURSING ---
Dr. Roach aware of IV placement unsuccessful. New order to DC IV ATB's.
[2019-07-26 08:33] LABS: Scan Indicated on CBC? Y/N YES- FLAGS NOTED; White Blood Count 30.5 K/mm3 (4.4-11.0)
[2019-07-26] MEDS: Ascorbic Acid 500 MG Tablet PO ×2 (09:15→16:54)
[2019-07-26 10:00] VITALS: BP 133/74; PULSE 69; RESP 18; TEMP 36.8; O2SAT 99
--- NOTE | 2019-07-26 10:03 | CASEMGMT ---
Social Work IDT met with patient and mother via conference call for Team Meeting. Discussed patient's progress in therapy. Pt is supervised for bed mobility, SBA for transfers, sup. for all ADLs, ambulating in w.c 480 ft SBA, standing 3 mins at // bars. Pt to go home with drain in stump. Pt to DC 07/26 with [facility] PT/OT/SN. No DME needs. Citlali Nava, TUBING ASSEMBLER MANAGER OF CUSTOMER BILLING
[2019-07-26 10:55] LABS: Pathologist Review Reviewed
[2019-07-26] MEDS: NYSTATIN 500,000 UNIT/5 ML UDC 500000 UNIT PO ×3 (14:51→20:59)
[2019-07-26 16:11] LABS: Bedside Glucose 164 mg/dL (70-110)
--- NOTE | 2019-07-26 16:15 | PCM.PN.BLA ---
Progress Note Day #7 cefepime and vancomycin Kandy was seen on team rounds today and her mother participated in a telephone conference with the team. Afebile VSS Maintaining appropriate oxygen saturation on RA Oral intake is improved Discussed with nursing - no problems that need addressed Reviewed the PT/OT notes Medication list reviewed. Kandy is c/o burning and phantom limb pain of the RLE. She denies N/V/abdominal pain. Denies shortness of breath, chest pain, cough sore throat. She is sleeping better at night with the increase in amitriptyline to 50 mg nightly. Alert, appropriate, oriented x3. Does not seem as depressed as earlier in the admission. Lungs-clear to auscultation Heart-regular rate and rhythm, no rub No edema right lower extremity Incision is intact. Dr. Ray has removed some of the cristian. The drain was discontinued by Dr. Ray today. There is no significant rick-incisional erythema and no purulent discharge or odor. The stump is [place] somewhat. Impressions 1. Debility secondary to left BKA secondary to osteomyelitis of the tibia 2. Diet-controlled diabetes mellitus type 2 3. Stage IV chronic renal failure 4. Persistent leukocytosis-no improvement with cefepime and vancomycin. ESR and CRP are markedly elevated but the patient has a history of an inflammatory arthropathy and this could be the etiology. She previously saw Dr. Cota but was dropped when her insurance changed to care source. She has also been seen in [place] by rheumatology in the past but, she is tired of going out of town for appts and getting stranded by the transport company. No red swollen joints at this time but, she does have stiffness in her hands 5. Inflammatory arthropathy - tells me that she has been told by that she has both RA and SLE SHELLEY 294 in the past but anti - ds DNA negative in the past. RA and CCP have both been negative in the past. 6. Acute on chronic renal failure-resolved 7. Mild hyponatremia-acceptable 8. Phantom limb pain-we will increase gabapentin to 400 mg 3 times daily. Continue amitriptyline 50 mg nightly 9. Depression-improving 10. Insomnia-better with the increase in amitriptyline to 50 mg nightly. Plan DC in the AM DC antibiotics if OK with Dr. Bejarano Inpatient E&M: 62352 Subs Hosp L2
--- NOTE | 2019-07-26 16:24 | NURSING ---
wound photo: left BKA
[2019-07-26 20:55] VITALS: PULSE 84; RESP 16; O2SAT 97
[2019-07-26] MEDS: Amitriptyline 25 MG Tablet 50 MG PO (20:59)
[2019-07-26 21:10] VITALS: BP 124/91; PULSE 84; RESP 16; TEMP 37.3; O2SAT 97
--- NOTE | 2019-07-26 21:20 | PN.SURG_ITS ---
Patient Problems: Active and Suspected Problems (Last Reviewed 07/15/19 @ 16:[address] Katina Roach, DO) Physical debility (Acute) due to L BKA S/P BKA (below knee amputation) (Acute) 07/09/[address] Ray Metabolic acidosis (Acute) Moderate protein-calorie malnutrition (Acute) Heart murmur (Acute) History of Clostridioides difficile infection (Acute) Subjective: Postop #17 Patient is resting comfortably. - Physical Exam Vitals/I&O's: Vital Signs Temp Pulse Resp BP Pulse Ox 99.1 F 84 16 124/91 H 97 07/26/19 21:10 07/26/19 21:10 07/26/19 21:10 07/26/19 21:10 07/26/19 21:10 Oxygen Delivery Method Room Air Weight: 214 lb 15.211 oz Body Mass Index (BMI) 34.8 Finger Stick Blood Glucose 97 Intake and Output for Last 24 Hours 07/24/19 07/25/19 07/26/19 23:59 23:59 23:59 Intake Total 930 / 930 1600 / 1600 2014 Output Total 322 / 322 666 / 666 2858 / 2858 Balance 608 / 608 934 / 934 -843 / -843 Drainage 16 ml yesterday, 8 ml today. General: Alert, Oriented x3 HEENT: PERRLA, EOMI Oral: Moist Mucosa Neck: Supple Abdomen: Soft, Non-Distended Skin: Incision - left BKA stump incision dry and intact. Mild redness at the suture line resolved. Stump is soft. No clinical evidence of hematoma. No fluctuance. No purulent drainage. No clinical evidence of infection. Neurological: Cranial nerves II-XII grossly intact Psych/Mental Status: Normal Affect, Appropriate Microbiology Past 72 Hours 07/23/19 10:33 Urine Catheter - Catheter Urine Culture - Final Culture exhibits no growth. Laboratory Results 07/23/19 06:15: Diff Path Review Reviewed 07/26/19 05:53: POC Glucose 114 H 07/26/19 06:01: WBC 30.5 H*, RBC 3.22 L, Hgb 8.5 L, Hct 28.4 L, MCV 88.2, MCH 26.4 L, MCHC 29.9 L, RDW Std Deviation 56.6 H, RDW Coeff of Racheal 17.6 H, Plt Count 427, MPV 10.0, Diff Path Review July foll 07/26/19 06:03: Vancomycin Trough 18.0 H 07/26/19 06:03: Creatinine 2.44 H, Estim Creat Clear Calc 22.67, Est GFR (MDRD) Af Amer 26 L, Est GFR (MDRD) Non-Af 21 L 07/26/19 16:06: POC Glucose 164 H Current Medications Hydrocodone Bitart/Acetaminophen ([place] 5mg-325mg) 2 tablet PO Q4H PRN PRN PRN Reason: Pain Score 1-1010 Last Admin: 07/26/19 06:32 Dose: 2 tablet Documented by: [facility] Last Admin: 07/26/19 07:57 Dose: 300 mg Documented by: Amitriptyline HCl (Elavil) 50 mg PO QHS [facility] Last Admin: 07/26/19 20:59 Dose: 50 mg Documented by: Ascorbic Acid (Vitamin C) [facility] Last Admin: 07/26/19 16:54 Dose: 500 mg Documented by: Atenolol (Tenormin (Beta Jona)) 50 mg PO DAILY [facility] Last Admin: 07/26/19 07:57 Dose: 50 mg Documented by: Bisacodyl (Dulcolax) 10 mg RECTAL .PRN X 1 PRN PRN Reason: Constipation Bupropion HCl (Wellbutrin Tablets) 75 mg PO BID [facility] Last Admin: 07/26/19 21:01 Dose: 75 mg Documented by: Cyclobenzaprine HCl (Flexeril) 10 mg PO TID PRN PRN Reason: muscle spasm Last Admin: 07/22/19 23:16 Dose: 10 mg Documented by: Diltiazem HCl (Cardizem Cd) 180 mg PO DAILY [facility] Last Admin: 07/26/19 07:57 Dose: 180 mg Documented by: Ergocalciferol (Vitamin D) 50,000 unit PO MO [facility] Last Admin: 07/26/19 07:57 Dose: 50,000 unit Documented by: Ferrous Sulfate (Ferrous Sulfate) [facility] Last Admin: 07/26/19 07:57 Dose: 325 mg Documented by: Gabapentin (Neurontin) 300 mg PO TIDCM [facility] Last Admin: 07/26/19 16:54 Dose: 300 mg Documented by: Heparin Sodium (Porcine) (Heparin Na) 5,000 unit SC Q8 [facility] Last Admin: 07/26/19 20:59 Dose: 5,000 unit Documented by: Sodium Chloride () 250 mls @ 15 mls/hr IV .[id number] PRN PRN Reason: Saline Flush Sodium Chloride () 250 mls @ 15 mls/hr IV .[id number] PRN PRN Reason: Additional IVPB Infusion Magnesium Hydroxide (Milk Of Magnesia) 30 ml PO .PRN X 1 PRN PRN Reason: Constipation Last Admin: 07/24/19 18:09 Dose: 30 ml Documented by: Multi-Ingredient Cream (Eucerin) 1 applic TOPICAL QHS [facility]; Protocol Last Admin: 07/26/19 21:00 Dose: 1 applicatio Documented by: Mupirocin (Bactroban) 1 applic TOPICAL DAILY [facility]; Protocol Last Admin: 07/26/19 08:01 Dose: 1 applicatio Documented by: Nystatin (Nystatin) 500,000 unit PO 4X/DAY [facility] Last Admin: 07/26/19 20:59 Dose: 500,000 unit Documented by: Senna/Docusate Sodium (Senokot-S, Loly-Colace) 2 tablet PO BID [facility] Last Admin: 07/26/19 20:59 Dose: 2 tablet Documented by: Sodium Chloride () 10 - 40 ml IV UD PRN PRN Reason: SALINE FLUSH Last Admin: 07/26/19 06:44 Dose: 10 ml Documented by: Zinc Sulfate (Zinc Sulfate) 220 mg PO DAILY [facility] Last Admin: 07/26/19 07:57 Dose: 220 mg Documented by: Medical Necessity - Tobacco Use Smoking Status: Current every day smoker Tobacco Use: Cigarettes Assessment/Plan All Active Problems (Last Reviewed 07/15/19 @ 16:[address] Katina Roach DO) Physical debility (Acute) S/P BKA (below knee amputation) (Acute) Metabolic acidosis (Acute) Moderate protein-calorie malnutrition (Acute) Heart murmur (Acute) History of Clostridioides difficile infection (Acute) Osteomyelitis (Acute) Acute osteomyelitis involving ankle and foot (Acute) Diabetic foot ulcer associated with type 2 diabetes mellitus (Acute) Gangrene of toe of right foot (Resolved) Non-pressure chronic ulcer of other part of right foot limited to breakdown of skin (Resolved) Non-pressure chronic ulcer of other part of right foot with necrosis of bone (Resolved) Open left ankle fracture (Resolved) Struck statnry object w/o fall (Resolved) Visual disturbance (Resolved) Cellulitis and abscess of left lower extremity (Ruled-out) 1. Nonhealing infected diabetic ulcer left ankle with abscess, s/p left below knee amputation. 2. Osteomyelitis. 3. History of MRSA. 4. History of Pseudomonas. 5. Recurrent dislocation left ankle. 6. Late effect open fracture left ankle. 7. Late effect mechanical breakdown hardware fixation. 8. Diabetes mellitus. 9. Smoker. 10. Persistent leukocytosis, will evaluate as outpatient for leukemia. The stump incision is dry and intact. Mild redness at the incision line has resolved. No clinical evidence of hematoma. No fluctuance. No purulent drainage. No clinical evidence of infection. Culture from the drain was negative. IV antibiotics were restarted (Vancomycin and Cefepime). Her WBC has not decreased. It has been elevated ever since admission. May have component of leukemia. Will have Echo Technician evaluation for a bone marrow. Drain was removed today. Half the sutures were removed today. Will remove the remaining sutures at the [facility]. Continue macario wrap compression to the stump. I was informed that she will be discharged tomorrow as she has made good progress with the therapy. Followup at the [facility] Center on 08/02/19 at 100pm. Encouraged patient to stop smoking as it may have deleterious effects on wound healing.
--- NOTE | 2019-07-27 02:54 | NURSING ---
Reviewed and agree with EMERGENCY SERVICES DISPATCHER documentation and charting.
[2019-07-27] MEDS: Heparin Injection (Vial) 5,000 UNIT/ML VIAL 5000 UNIT SC (05:33)
[2019-07-27 06:51] LABS: Bedside Glucose 97 mg/dL (70-110)
[2019-07-27] MEDS: Gabapentin 300 MG Capsule PO (07:34)
[2019-07-27] MEDS: Allopurinol 300 MG Tablet PO (07:34)
[2019-07-27] MEDS: Ferrous Sulfate 325 MG Tablet PO (07:34)
[2019-07-27] MEDS: dilTIAZem CD 180 MG Capsule PO (07:34)
[2019-07-27] MEDS: Ascorbic Acid 500 MG Tablet PO (07:34)
[2019-07-27] MEDS: NYSTATIN 500,000 UNIT/5 ML UDC 500000 UNIT PO (07:34)
[2019-07-27] MEDS: Mupirocin Ointment 22gm Tube 1 APPLIC TOPICAL (07:35)
[2019-07-27] MEDS: buPROPion 75 MG Tablet PO (07:35)
[2019-07-27] MEDS: Atenolol 50 MG Tablet PO (07:35)
[2019-07-27] MEDS: Senna/Docusate Sodium 1 Tablet 2 TABLET PO (07:35)
[2019-07-27] MEDS: HYDROcodone Bitartrate/Apap 5/325 Tablet PO (07:38)
[2019-07-27 08:56] VITALS: BP 133/83; PULSE 67; RESP 16; TEMP 36.4; O2SAT 100
--- NOTE | 2019-07-27 10:12 | PCM.DC ---
- Discharge Diagnoses Current Active Problems: Current Active and Chronic Problems (Last Reviewed 07/15/19 @ 16:[address] Katina Roach, DO) Physical debility (Acute) due to L BKA S/P BKA (below knee amputation) (Acute) 07/09/[address] Ray Chronic renal failure, stage 4 (severe) (Chronic) Iron deficiency (Chronic) Metabolic acidosis (Acute) Amputation of toe of right foot (Chronic) R little toe Moderate protein-calorie malnutrition (Acute) Heart murmur (Acute) History of Clostridioides difficile infection (Acute) You will use the following diet at home:: Calorie/Carbohydrate Controlled (specify 1200, 1400, etc), Cardiac, Renal (restricted protein/sodium) - potassium restricted Discharge Activity: May Not Drive, May not drive while taking narcotic pain medications., - - use wheelchair Call your doctor if your incision/area has: Continuous Slow Oozing, Sudden Increased Bleeding, Increased Pain/ Swelling, Increased Redness, Foul Smelling Discharge, Swelling at the incision site Call your doctor if you observe: Fever of 101 or Higher, Inability to urinate, Inability to have a bowel movement, Shortness of breath, Dizziness, Fainting spells, Swelling in the ankles, Chest pain, Increased palpitations (irregular heartbeat), Calf discomfort, Uncontrolled pain Additional Instructions: 1. Your blood sugars have been well controlled on diet alone while in the inpatient rehab unit with no insulin. You may not need insulin any longer if you can stick to your current diet. 2. You had acute on top of chronic kidney failure while in the hospital due to dehydration. Please make sure to drink at least 1500 cc of fluid daily (that would be 50 ounces). 3. The white blood cell count has been persistently elevated. There is no evidence that the stump is infected and the CAT scan of the left stump showed no evidence of infection. We have made a follow-up appointment with Dr. Shelby to see if he feels there is any additional testing needed. 4. I increased the gabapentin to 400 mg 3 times daily from 300 mg daily to better control the phantom limb pain in the amputated leg. 5. You were started on an antidepressant called Wellbutrin (also known as bupropion). I also increase the dose of the amitriptyline to 50 mg which has improved your sleep quality. 6. You are taking ascorbic acid (vitamin C) and zinc to help heal the amputation incision. You can discontinue both of these medications after 4 weeks. 7. It was a pleasure to meet you Kandy. I have enjoyed talking with you. You have been given a lot of crosses to bear in this life and you have endured. You are a strong woman and I admire that. My cell phone number is [phone] and the rehab number is [phone] if you have any questions after you leave or we can help you with anything. Pending Tests on Discharge: none Allergies/Adverse Reactions: Allergies aspirin Allergy (Verified 07/02/19 21:48) Hives latex Allergy (Verified 07/02/19 21:48) Hives Penicillins Allergy (Verified 07/02/19 21:48) Hives simvastatin Allergy (Verified 07/02/19 21:48) Unknown naproxen [From Aleve] Adverse Reaction (Severe, Verified 07/02/19 21:48) Kidney disease Stage 3 Medications to take at Discharge Atenolol [Tenormin (beta feliberto)] 50 mg PO DAILY 08/10/18 diltiazem HCl 180 mg capsule,extended release 24 hr 180 mg PO DAILY cap 12/15/18 cyclobenzaprine 10 mg tablet 10 mg PO TID PRN #90 tab 02/02/19 Allopurinol 300 mg PO DAILY 07/03/19 Blood Sugar Diagnostic [Accu-Chek Chloe Plus] See Rx Instructions .ROUTE .MEDSUPPLY 07/03/19 Cholecalciferol (Vitamin D3) [D3-50] 50,000 unit PO MO 07/03/19 Ferrous Sulfate 325 mg PO 1200,1700 07/14/19 Insulin Lispro [Humalog KwikPen] See Protocol SUBCUT ACHS 07/14/19 Nutritional Supplement [Pancho - ORANGE FLAVOR] 1 packet PO BIDCM 07/14/19 Amitriptyline HCl 50 mg PO QHS #30 tab 07/27/19 Ascorbic Acid [Vitamin C] 500 mg PO BIDCM #60 tab 07/27/19 Gabapentin [Neurontin] 400 mg PO TIDCM #90 cap 07/27/19 Hydrocodone Bitart/Apap 5-325 [[place] 5/325] 2 tab PO Q4H PRN PRN 7 Days #42 tab 07/27/19 Mupirocin [Bactroban] 1 applic TOPICAL DAILY #1 tube 07/27/19 Nystatin 500,000 unit PO 4X/DAY 10 Days #200 ml 07/27/19 Zinc Sulfate (50mg elemental) [Zinc Sulfate] 220 mg PO DAILY #30 cap 07/27/19 buPROPion tablets [Wellbutrin tablets] 75 mg PO BID #60 tab 07/27/19 The following prescriptions were given: Amitriptyline HCl 50 mg PO QHS #30 tab Transmission Status: Pending to [id number] Mupirocin [Bactroban] 1 applic TOPICAL DAILY #1 tube Transmission Status: Pending to [id number] Gabapentin [Neurontin] 400 mg PO TIDCM #90 cap Transmission Status: Pending to [id number] Hydrocodone Bitart/Apap 5-325 [[place] 5/325] 2 tab PO Q4H PRN PRN 7 Days #42 tab PRN Reason: Pain Score 4-10/10 Transmission Status: Received by [id number] Nystatin 500,000 unit PO 4X/DAY 10 Days #200 ml Transmission Status: Pending to [id number] Ascorbic Acid [Vitamin C] 500 mg PO BIDCM #60 tab Transmission Status: Pending to [id number] buPROPion tablets [Wellbutrin tablets] 75 mg PO BID #60 tab Transmission Status: Pending to [id number] Zinc Sulfate (50mg elemental) [Zinc Sulfate] 220 mg PO DAILY #30 cap Transmission Status: Pending to [id number] Primary Care Physician: Pia Newton MD [Primary Care Provider] - Test Results: Test results from this visit will be discussed in further detail at your follow-up appointment, if applicable. Please Follow Up With: Dr. Newton When: Friday Please Follow Up With: Tony Ray MD When: Friday in the wound care center Please Follow Up With: Yumiko Shelby MD Proposed Discharge Date: 07/27/19
--- NOTE | 2019-07-27 10:42 | PCM.DC.SUM ---
Discharge Date and Diagnosis - Problem List Patient Problems: Active and Suspected Problems (Last Reviewed 07/15/19 @ 16:[address] 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 Ray Moderate protein-calorie malnutrition (Acute) Heart murmur (Acute) Date of Admission: 07/14/19 Date of Discharge: 07/27/19 - Primary Discharge Diagnosis Active and Suspected Problems (Last Reviewed 07/15/19 @ 16:[address] Katina Roach DO) Physical debility (Acute) due to L BKA S/P BKA (below knee amputation) (Acute) 07/09/[address] Ray Acute on chronic renal failure stage IV secondary to dehydration/prerenal azotemia Hyperkalemia-secondary to acute on chronic renal failure -resolved Leukocytosis (Acute) - persistent despite antibiotics. Will follow up with Heme/ONC Hyponatremia (Acute) - mild Phantom pain after amputation of lower extremity (Acute) Moderate protein-calorie malnutrition (Acute) Heart murmur (Acute) - possibly due to flow MM from anemia. Has had thickening of the aortic valve in the past with no actual Thrush (Acute) - due to broad spectrum antibiotics Cellulitis of the stump - resolved - Secondary Discharge Diagnosis Chronic Problems (Last Reviewed 07/15/19 @ 16:[address] Katina Roach DO) Iron deficiency anemia (Chronic) Inflammatory arthropathy (Chronic) SLE?RA? says she has been told she has both Depression (Chronic) Chronic renal failure, stage 4 (severe) (Chronic) Amputation of toe of right foot (Chronic) R little toe History of Clostridioides difficile infection (Chronic) Type 2 diabetes mellitus with diabetic polyneuropathy (Chronic) - diet controlled while in the [facility] Other specified peripheral vascular diseases (Chronic) Sleep apnea (Chronic) pt denies this and tells me that she has never had a sleep study. It was listed in the previous H&P. she had an overnight trending pulse ox in the rehab unit and had only 1 desaturation of 3 sec. Likely does not have sleep apnea Alopecia (Chronic) alopecia overlying soft tissue mass right temporal parietal scalp Head mass (Chronic) 8 cm soft tissue mass right temporal parietal scalp with overlying alopecia - soft/cyst like Gout (Chronic) Tinea unguium (Chronic) Hypertension (Chronic) Hyperlipidemia (Chronic) Tobacco use disorder (Chronic) Obesity (Chronic) COPD (chronic obstructive pulmonary disease) (Chronic) suspected She wheezes but while in the rehab unit this resolved and lungs were CTA prior to DC Atherosclerosis of [place] artery of right lower extremity (Chronic) Hospital Course and Treatment Imaging Results: Clinical Impression(s) from Imaging Studies Lower Extremity CT 07/23/19 12:09 IMPRESSION: Status post below knee amputation with postoperative changes. No evidence of fluid or abscess collection. Electronically Signed: Mahesh Corwin, at 14:07 EDT , Service support , Laboratory Results - last 24 hr 07/23/19 07/26/19 07/27/19 06:15 16:06 06:36 Diff Path Review Reviewed POC Glucose 164 H 97 Microbiology 07/23/19 10:33 Urine Catheter - Catheter Urine Culture - Final Culture exhibits no growth. 07/20/19 10:40 Joel Escalona Drainage Gram Stain - Final. No organisms and no WBC 07/20/19 10:40 Joel Escalona Drainage Wound Culture - Final No growth aerobically. Consultations 07/14/19 Consult: Onc/Wound/marketing operations manager Routine Comment: Reason for Consult:: left BKA Operations: - - Right BKA on 07/09/[address] Ray Procedures: - - overnight trending pulse ox Summary of Care Provided: Kandy Adam is a 59 year old F with a past medical history of diabetes mellitus type 2, hypertension, peripheral vascular disease, chronic renal failure stage IV, diabetic peripheral polyneuropathy, a soft tissue mass on the right side of the scalp with alopecia, chronic anemia with iron deficiency, inflammatory arthropathy ( has been told by different rheumatologists at different times that she has RA, Lupus and gout), obesity, chronic tobacco dependence, COPD, moderate protein calorie malnutrition, history of C. difficile infection, mild left atrial enlargement, aortic valve thickening, mitral annular calcification with extension onto the posterior mitral leaflet and hx of a fracture of the Left ankle which became infected requiring removal of the hardware in October 2018 and most recently a below the knee amputation of the left leg who was admitted to the inpatient rehab unit at [facility] on 07/14/2019 for debility secondary to recent right BKA for greater than 3 hours of therapy daily to restore her to her prior level of independence. She has a trailer but has not been able to live there for most of the past year. She has been wheelchair dependent and has been living with her mother. Other H&P's have documented that she has SHELBY but, Kandy told me that she has never had a sleep study. We did an overnight trending pulse ox while she was admitted to the [facility] and she had only 1 desaturation and it lasted 3 sec. I have observed her sleeping and she does not snore or stop breathing. While in rehab she seemed quite depressed initially and oral intake was poor. She got dehydrated and had acute on chronic renal failure. The creatinine on 07/19/2019 was 2.77, up from 2.24 at admission to the rehab unit. Potassium increased to 6 and she was hydrated, given Kayexalate and placed on a potassium restricted diet. On 07/26/2019 her creatinine was 2.44 and potassium was within normal limits. The WBC count was elevated at 17.2 at presentation to the ED prior to the amputation and it has continued to rise since then. It was 24.4 on 07/19/2019 and there was some increased erythema on the lateral portion of the stump incision with increased warmth to touch. She was started on cefepime and vancomycin and Dr. Bejarano was consulted. The ESR was markedly elevated at 114 and the CRP was 203. Dr. Bejarano was consulted. The fluid in the Joel-Escalona drain was cultured and had no growth. The white blood cell count continued to remain elevated despite vancomycin and cefepime and a CT scan of the stump was obtained to rule out abscess. There was no evidence of an abscess. Antibiotics were discontinued after 6 days. A CBC was checked on 07/26/2019 and her white blood cell count was even more elevated at 30.5. The hemoglobin is stable at 8.5 and platelets are within normal limits. I suspect the anemia is related to chronic inflammatory arthropathy with BM suppression and Stage 4 CRF. Her old lab in the computer was reviewed and she has in the past had a negative RA and a negative CCP. The SHELLEY was elevated at 294 but the [id number] DNA was negative. We requested records from Dr. Jimenez and her prior engagement specialist but they were never sent. She has been on Plaquenil in the past but, she did not feel it helped. She can no take a NSAID due to the CRF. She does not want to take an injectable immunologic medication. I encouraged her to follow up with rheumatology post [place]. She did very well in therapy and was discharged home on 07/27/2019 on medications previously listed. She will continue with zinc and vitamin C for 1 month to promote wound healing. Gabapentin was increased to 400 mg 3 times daily because of uncontrolled phantom limb pain. She was given a prescription for #42 Vicodin 5/325 at discharge and instructed to take 2 p.o. every 4 to 6 hours as needed for pain. She has been averaging 2-3 doses of hydrocodone daily. Amitriptyline was increased to 50 mg nightly from 25 mg nightly because of complaints of insomnia and depressed mood. She slept better and was more upbeat after a few days of Elavil 50 mg and some good sleep. She was seen by Dr. Ray on 07/26/2019 and the Joel-Escalona drain was removed. Some of the sutures were also removed. She is going to follow-up with Dr. Ray in the wound care center this coming Friday. An appointment was made for her to follow-up with Dr. Yumiko Shelby for persistent leukocytosis. She will also follow-up with her primary care doctor, Dr. Pia Bagley this coming week. I once again recommended to her at [place] that she follow up with a engagement specialist. I reminded her to drink at least 1500 cc of liquid daily to keep the kidneys functioning at their best. the blood sugars while in rehab were well controlled with diet alone. The hemoglobin A1c was 6.5% on 07/03/2019. It was 5.9% on 04/23/2019. I calculated the transferrin saturation from iron studies that were done on 07/11/2019 and her transferrin saturation is 19.7%. Less than 20% is consistent with absolute iron deficiency and she will continue on iron supplement twice daily. She may need IV iron supplementation going forward if the transferrin saturation does not improve with oral iron supplements. Alert, appropriate, oriented x3. Does not seem as depressed as earlier in the admission. Lungs-clear to auscultation Heart-regular rate and rhythm, no rub No edema right lower extremity Incision is intact. Dr. Ray has removed some of the cristian. The drain was discontinued by Dr. Ray today. There is no significant rick-incisional erythema and no purulent discharge or odor. The stump is [place] somewhat. This note was generated with [employer] dictation software. It may contain incorrect words, spelling, and punctuation that were not noted in checking the note before signing. Patient Problems: Active and Suspected Problems (Last Reviewed 07/15/19 @ 16:[address] 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 Ray Moderate protein-calorie malnutrition (Acute) Heart murmur (Acute) - Physical Exam Vitals/I&O's: Vital Signs Temp Pulse Resp BP Pulse Ox 97.5 F L 67 16 133/83 H 100 07/27/19 08:56 07/27/19 08:56 07/27/19 08:56 07/27/19 08:56 07/27/19 08:56 Oxygen Delivery Method Room Air Weight: 214 lb 15.211 oz Body Mass Index (BMI) 34.8 Finger Stick Blood Glucose 97 Intake and Output for Last 24 Hours 07/25/19 07/26/19 07/27/19 23:59 23:59 23:59 Intake Total 1600 / 1600 2014 Output Total 666 / 666 2858 / 2858 Balance 934 / 934 -843 / -843 Microbiology Past 72 Hours 07/23/19 10:33 Urine Catheter - Catheter Urine Culture - Final Culture exhibits no growth. Laboratory Results 07/23/19 06:15: Diff Path Review Reviewed 07/26/19 16:06: POC Glucose 164 H 07/27/19 06:36: POC Glucose 97 Current Medications Hydrocodone Bitart/Acetaminophen ([place] 5mg-325mg) 2 tablet PO Q4H PRN PRN PRN Reason: Pain Score 1-10/10 Last Admin: 04/28/20 07:38 Dose: 2 tablet Documented by: [facility] Last Admin: 07/27/19 07:34 Dose: 300 mg Documented by: Amitriptyline HCl (Elavil) 50 mg PO QHS [facility] Last Admin: 07/26/19 20:59 Dose: 50 mg Documented by: Ascorbic Acid (Vitamin C) [facility] Last Admin: 07/27/19 07:34 Dose: 500 mg Documented by: Atenolol (Tenormin (Beta Jona)) 50 mg PO DAILY [facility] Last Admin: 07/27/19 07:35 Dose: 50 mg Documented by: Bisacodyl (Dulcolax) 10 mg RECTAL .PRN X 1 PRN PRN Reason: Constipation Bupropion HCl (Wellbutrin Tablets) 75 mg PO BID [facility] Last Admin: 07/27/19 07:35 Dose: 75 mg Documented by: Cyclobenzaprine HCl (Flexeril) 10 mg PO TID PRN PRN Reason: muscle spasm Last Admin: 07/22/19 23:16 Dose: 10 mg Documented by: Diltiazem HCl (Cardizem Cd) 180 mg PO DAILY [facility] Last Admin: 07/27/19 07:34 Dose: 180 mg Documented by: Ergocalciferol (Vitamin D) 50,000 unit PO MO [facility] Last Admin: 07/26/19 07:57 Dose: 50,000 unit Documented by: Ferrous Sulfate (Ferrous Sulfate) [facility] Last Admin: 07/27/19 07:34 Dose: 325 mg Documented by: Gabapentin (Neurontin) 400 mg PO TIDCM [facility] Heparin Sodium (Porcine) (Heparin Na) 5,000 unit SC Q8 [facility] Last Admin: 07/27/19 05:33 Dose: 5,000 unit Documented by: Sodium Chloride () 250 mls @ 15 mls/hr IV .[id number] PRN PRN Reason: Saline Flush Sodium Chloride () 250 mls @ 15 mls/hr IV .[id number] PRN PRN Reason: Additional IVPB Infusion Magnesium Hydroxide (Milk Of Magnesia) 30 ml PO .PRN X 1 PRN PRN Reason: Constipation Last Admin: 07/24/19 18:09 Dose: 30 ml Documented by: Multi-Ingredient Cream (Eucerin) 1 applic TOPICAL QHS [facility]; Protocol Last Admin: 07/26/19 21:00 Dose: 1 applicatio Documented by: Mupirocin (Bactroban) 1 applic TOPICAL DAILY [facility]; Protocol Last Admin: 07/27/19 07:35 Dose: 1 applicatio Documented by: Nystatin (Nystatin) 500,000 unit PO 4X/DAY [facility] Last Admin: 07/27/19 07:34 Dose: 500,000 unit Documented by: Senna/Docusate Sodium (Senokot-S, Rick-Colace) 2 tablet PO BID [facility] Last Admin: 07/27/19 07:35 Dose: 2 tablet Documented by: Sodium Chloride () 10 - 40 ml IV UD PRN PRN Reason: SALINE FLUSH Last Admin: 07/26/19 06:44 Dose: 10 ml Documented by: Zinc Sulfate (Zinc Sulfate) 220 mg PO DAILY [facility] Last Admin: 07/27/19 07:35 Dose: 220 mg Documented by: Discharge Activity: May Not Drive, May not drive while taking narcotic pain medications., - - use wheelchair Call your doctor if your incision/area has: Continuous Slow Oozing, Sudden Increased Bleeding, Increased Pain/ Swelling, Increased Redness, Foul Smelling Discharge, Swelling at the incision site Call your doctor if you observe: Fever of 101 or Higher, Inability to urinate, Inability to have a bowel movement, Shortness of breath, Dizziness, Fainting spells, Swelling in the ankles, Chest pain, Increased palpitations (irregular heartbeat), Calf discomfort, Uncontrolled pain Home Medications: Medications to take at Discharge Atenolol [Tenormin (beta jona)] 50 mg PO DAILY 08/10/18 diltiazem HCl 180 mg capsule,extended release 24 hr 180 mg PO DAILY cap 12/15/18 cyclobenzaprine 10 mg tablet 10 mg PO TID PRN #90 tab 02/02/19 Allopurinol 300 mg PO DAILY 07/03/19 Blood Sugar Diagnostic [Accu-Chek Chloe Plus] See Rx Instructions .ROUTE .MEDSUPPLY 07/03/19 Cholecalciferol (Vitamin D3) [D3-50] 50,000 unit PO MO 07/03/19 Ferrous Sulfate 325 mg PO 1200,1700 07/14/19 Insulin Lispro [Humalog KwikPen] See Protocol SUBCUT ACHS 07/14/19 Nutritional Supplement [Pancho - ORANGE FLAVOR] 1 packet PO BIDCM 07/14/19 Amitriptyline HCl 50 mg PO QHS #30 tab 07/27/19 Ascorbic Acid [Vitamin C] 500 mg PO BIDCM #60 tab 07/27/19 Gabapentin [Neurontin] 400 mg PO TIDCM #90 cap 07/27/19 Hydrocodone Bitart/Apap 5-325 [[place] 5/325] 2 tab PO Q4H PRN PRN 7 Days #42 tab 07/27/19 Mupirocin [Bactroban] 1 applic TOPICAL DAILY #1 tube 07/27/19 Nystatin 500,000 unit PO 4X/DAY 10 Days #200 ml 07/27/19 Zinc Sulfate (50mg elemental) [Zinc Sulfate] 220 mg PO DAILY #30 cap 07/27/19 buPROPion tablets [Wellbutrin tablets] 75 mg PO BID #60 tab 07/27/19 Following Prescrptions Were Given to Patient: Amitriptyline HCl 50 mg PO QHS #30 tab Transmission Status: Pending to [id number] Mupirocin [Bactroban] 1 applic TOPICAL DAILY #1 tube Transmission Status: Pending to [id number] Gabapentin [Neurontin] 400 mg PO TIDCM #90 cap Transmission Status: Pending to [id number] Hydrocodone Bitart/Apap 5-325 [[place] 5/325] 2 tab PO Q4H PRN PRN 7 Days #42 tab PRN Reason: Pain Score 4-10/10 Transmission Status: Received by [id number] Nystatin 500,000 unit PO 4X/DAY 10 Days #200 ml Transmission Status: Pending to [id number] Ascorbic Acid [Vitamin C] 500 mg PO BIDCM #60 tab Transmission Status: Pending to [id number] buPROPion tablets [Wellbutrin tablets] 75 mg PO BID #60 tab Transmission Status: Pending to [id number] Zinc Sulfate (50mg elemental) [Zinc Sulfate] 220 mg PO DAILY #30 cap Transmission Status: Pending to [id number] Primary Care Physician: Pia Newton MD [Primary Care Provider] - Please Follow Up With: Dr. Newton When: Friday Please Follow Up With: Tony Ray MD When: Friday in the wound care center Please Follow Up With: Yumiko Shelby MD Disposition: Home with Home Health Minutes spent on discharge:: 46 Patient Condition:: Stable Medical Necessity - Tobacco Use Smoking Status: Current every day smoker Tobacco Use: Cigarettes Meaningful Use Info Meaningful Use Diagnoses (Choose all that apply): None applicable Inpatient E&M: 02251 Disch Hosp
[2019-07-27 10:45] VITALS: BP 133/83; PULSE 67; RESP 16; TEMP 36.4; O2SAT 100
--- NOTE | 2019-07-27 10:45 | NURSING ---
Patient verbalized understanding to discharge instructions given.
--- NOTE | 2019-07-27 11:10 | PCM.PN.ID ---
Patient Problems: Active and Suspected Problems (Last Reviewed 07/15/19 @ 16:[address] 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 - Physical Exam Vitals/I&O's: Vital Signs Temp Pulse Resp BP Pulse Ox 97.5 F L 67 16 133/83 H 100 07/27/19 10:45 07/27/19 10:45 07/27/19 10:45 07/27/19 10:45 07/27/19 10:45 Oxygen Delivery Method Room Air Weight: 97.5 kg Body Mass Index (BMI) 34.8 Finger Stick Blood Glucose 97 Intake and Output for Last 24 Hours 07/25/19 07/26/19 07/27/19 23:59 23:59 23:59 Intake Total 1600 / 1600 2014 Output Total 666 / 666 2858 / 2858 Balance 934 / 934 -843 / -843 General: Alert, Cooperative, No apparent distress Lungs: Clear to auscultation, Normal air movement Cardiovascular: Regular rate, Regular Rhythm Abdomen: Soft, Non Tender, Non-Distended Skin: Ulcer/ Wound - reviewed photo Microbiology Past 72 Hours 07/23/19 10:33 Urine Catheter - Catheter Urine Culture - Final Culture exhibits no growth. Laboratory Results 07/26/19 16:06: POC Glucose 164 H 07/27/19 06:36: POC Glucose 97 Medical Necessity - Tobacco Use Smoking Status: Current every day smoker Tobacco Use: Cigarettes Route of nutrition/ use of supplements: [] Nutritional Intake: [] IV Site: [] Gardner Catheter: [] - Assessment/Plan Antibiotics: [] Assessment/Plan: [] Active and Suspected Problems (Last Reviewed 07/15/19 @ 16:[address] Katina Roach DO) Physical debility (Acute) due to L BKA S/P BKA (below knee amputation) (Acute) 07/09/[address] Ray Metabolic acidosis (Acute) Moderate protein-calorie malnutrition (Acute) Heart murmur (Acute) History of Clostridioides difficile infection (Acute) LLE osteo now s/p BKA 07/09/[address] Ray. Persistent leukocytosis, redness better. Reviewed photos. Cx neg. Completed empiric course of vanc/cefepime. CT showed no deeper involvement. Ok for d/c home off of abx. Will follow. D/w nursing.
[2019-07-27 12:17] LABS: Pathologist Review Reviewed
== END 2019-07-27 10:45 | disposition home health service (06) | DRG 560 ==
PROVIDERS: Admitting Provider Internal Medicine; PCP Internal Medicine; Referring Provider Internal Medicine; Visit Provider Internal Medicine
DX: Z47.81 Encounter for orthopedic aftercare following surgical amputation (principal); N18.4 Chronic kidney disease, stage 4 (severe); M86.172 Other acute osteomyelitis, left ankle and foot; E44.0 Moderate protein-calorie malnutrition; E11.52 Type 2 diabetes mellitus with diabetic peripheral angiopathy with gangrene; E87.1 Hypo-osmolality and hyponatremia; B37.0 Candidal stomatitis; Z89.512 Acquired absence of left leg below knee; E11.42 Type 2 diabetes mellitus with diabetic polyneuropathy; J44.9 Chronic obstructive pulmonary disease, unspecified; E78.5 Hyperlipidemia, unspecified; B35.1 Tinea unguium; M06.9 Rheumatoid arthritis, unspecified; E11.22 Type 2 diabetes mellitus with diabetic chronic kidney disease; G47.30 Sleep apnea, unspecified; E11.69 Type 2 diabetes mellitus with other specified complication; E66.9 Obesity, unspecified; R22.0 Localized swelling, mass and lump, head; M32.9 Systemic lupus erythematosus, unspecified; M1A.9XX0 Chronic gout, unspecified, without tophus (tophi); I12.9 Hypertensive chronic kidney disease with stage 1 through stage 4 chronic kidney disease, or unspecified chronic kidney disease; Z68.34 Body mass index [BMI] 34.0-34.9, adult; Z99.3 Dependence on wheelchair; F17.210 Nicotine dependence, cigarettes, uncomplicated; F32.9 Major depressive disorder, single episode, unspecified; D63.1 Anemia in chronic kidney disease; E87.5 Hyperkalemia; G54.6 Phantom limb syndrome with pain
CPT/HCPCS: 36415; 73700; 80048; 80202; 81001; 82565; 82962; 83735; 84100; 84132; 85025; 85027; 85652; 86140; 87070; 87086; 87205; 94640; 94762; 97110; 97116; 97162; 97166; 97530; 97535; 97542; 97802; 97803; 99251; J7030; J7040; J7050; A4216; G0463

== ENCOUNTER 2019-07-27 20:13 | Emergency (ER) | payer MEDICARE, MEDICAID, SELFPAY ==
[2019-07-26 11:36] VITALS: BMI 34.8
[2019-07-27 20:14] VITALS: BP 137/64; PULSE 88; RESP 18; TEMP 37; O2SAT 98; BMI 34.3
[2019-07-27 20:18] VITALS: BP 137/64; PULSE 87; RESP 18; TEMP 37; O2SAT 99
--- NOTE | 2019-07-27 20:58 | ED.VISSUMM ---
- ER Visit Summary Date of Service: 07/27/19 Chief Complaint: Back pain History of Present Illness: The patient is a 59 F who presents with back pain that began today. Patient states she fell at home. Patient was discharged yesterday after a left below the knee amputation. Patient states she was not sure if she was ready to go home. Patient states she has been having difficulty getting around because of the amputation. Patient fell and landed on her buttocks and lower back tonight. Patient states her pain is sharp and throbbing. Patient states her pain is been constant. Patient states the pain is worse with any movement. Patient does admit to some pain going down her lower extremities. Patient denies any bowel or bladder changes. Patient denies any saddle anesthesia. Physical Examination: Vital signs are stable. Patient is afebrile. Patient is in no acute distress. Oral mucosa is pink and moist. Neck is supple. Trachea is midline. There is no JVD. Heart was regular rate and rhythm. Lungs are clear and equal bilateral. Abdomen is soft. Bowel sounds are normal. There is no tenderness. Cranial nerves II through XII are intact. There are no focal motor or sensory deficits noted. Musculoskeletal exam reveals tenderness over the lumbar spine and sacrum. There is no bony crepitance or step-off. Range of motion was limited in all motions of the lumbar spine secondary to pain. Test Results: X-rays of the lumbar spine were obtained. There are degenerative changes but no acute fracture. This was interpreted by the radiologist and reviewed by myself. Emergency Department Course and Treatment: Patient was given a dose of [place] here. Patient was feeling better on reevaluation. Case was discussed with social work. Patient was recently discharged from rehab facility here at the hospital. Patient has home health aides arranged at home. Patient does not want to go to a detention at this time. Patient states she will try to go home with her home health aides. Patient will be discharged. Patient was instructed to follow-up with her primary care physician in 5 to 7 days. Patient understood and was agreeable with the plan. All questions were answered. Disposition: Discharge home Impression: Lumbosacral strain This note was generated with [employer] software. It may contain incorrect words, spelling, and punctuation that were not noted in review of the chart prior to signing ED Disposition - Plan for ED Patient: Disposition: Home or Assisted Living Diagnosis: Lumbosacral strain Instructions: ED LUMBAR SPRAIN/STRAIN Referrals: Pia Newton MD [Primary Care Provider] - 3-5 Days
--- NOTE | 2019-07-27 21:04 | CM.ED ---
SOCIAL WORK INFORMANT: DR. MILLS REASON FOR REFERRAL: DISCHARGE PLANNING MET WITH PATIENT IN ROOM. INTRODUCED ROLE AND REASON FOR REFERRAL. PATIENT STATES WAS JUST DISCHARGED FROM [facility] THIS MORNING. PATIENT STATES FELL AT HOME TODAY. PATIENT STATING, I WASN'T READY. I CAN'T TAKE CARE OF MYSELF. I JUST COULDN'T FUNCTION AT HOME. PATIENT POINTING TO LEFT BKA AND STATED, I THINK I MADE THE WRONG CHOICE HAVING THEM CUT IT OFF. MUCH EMOTIONAL SUPPORT PROVIDED. DISCUSSED DISCHARGE OPTIONS. PER CHART REVIEW, SW ON REHAB UNIT SET PATIENT UP WITH [facility]. PATIENT STATING I JUST DON'T KNOW WHAT TO DO. WHEN DISCUSSING POSSIBILITY OF USP PATIENT VOICED CONCERNS WITH GOING TO A USP DUE TO PANDEMIC. PATIENT WANTING MORE TIME TO THINK ABOUT OPTIONS. WORK UP BEING COMPLETED AT THIS TIME. UPDATED DR. MILLS ON THE ABOVE. PLAN: TBD PENDING WORK UP. Femi HARVEY MSW, [employer].
[2019-07-27] MEDS: HYDROcodone Bitartrate/Apap 5/325 Tablet PO (21:19)
--- NOTE | 2019-07-27 21:54 | RAD_ITS ---
STUDY: X-RAY - LUMBAR SPINE REASON FOR EXAM: Female, 59 years old. fall. lower back pain TECHNIQUE: 3 view(s) of the lumbar spine were obtained. COMPARISON: None FINDINGS: Normal lumbar lordosis. There is no substantial scoliosis. There is a normal alignment of the vertebrae. There is diffuse demineralization with multi-level endplate spondylosis. There is multi-level degenerative disc disease with multi-level disc space narrowing. There is facet sclerosis and spurring. There is no demonstrated fracture. There is atherosclerotic calcification of the abdominal aorta without a demonstrated aneurysm. RAD/Lumbar Spine 2 or 3 Views IMPRESSION: Degenerative changes of the spine, as detailed above. Electronically Signed: Shahbaz Gtz MD at 22:30 EDT , Service support ,
--- NOTE | 2019-07-28 00:07 | ED.RN ---
PT IS DISCHARGED TO HOME AND UNABLE TO FIND A RIDE. PT ATTEMPTED TO CALL HER MOTHER AND BROTHER, HER MOTHER DOES NOT DRIVE AND MY BROTHER MUST HAVE SHUT OFF HIS PHONE. PER PT.
[2019-07-28 00:08] VITALS: BP 105/66; PULSE 64; RESP 18; O2SAT 98
[2019-07-28 00:12] VITALS: BP 110/56; PULSE 64; RESP 18; O2SAT 98
--- NOTE | 2019-07-28 05:10 | ED.RN ---
PT pressed call c[facility]. This RN answered finding PT on the floor. PT states she was trying to get out of bed to go to the bathroom. RN was sitting at closest nursing station to PT with another nurse and neither heard the patient land on the floor. Attempted to get pt to knees and then sitting into chair which was unsuccessful as pt tires easily. interior decorator painting was consulted and was able to get pt back into wheelchair with this RN helping. PT was taken to bathroom with RN escort. She was able to transfer to and from commode without assistance. PT had some blood leaking from wound, dressing was changed. PT resting in bedside chair with leg raised. PT wants to get admitted into [facility] as she doesn't think she can do this at home. Social work services will be contacted in AM. PT very willing to stay until placed.
[2019-07-28 07:53] VITALS: BP 113/79; PULSE 80; RESP 16; O2SAT 99
--- NOTE | 2019-07-28 08:01 | ED.RN ---
this RN went into pts room to give pt breakfast and update vital signs. pt stated she had to go to the bathroom. this RN and patient tech assisted pt to bathroom. pt was a complete assist and unable to transfer from wheelchair to toilet. pt tearful and stating I just had my leg taken off, I don't know how to do this. This RN reassured pt that we would be there to help her and take it one step at a time. pt back in room, sitting in wheelchair and eating breakfast independently. call button within reach.
--- NOTE | 2019-07-28 10:38 | CM.ED ---
Social Work Consult: [facility] Informant: Dr. Sorto Patient currently waiting in ED for snf placement. Original plan was for patient to discharge to home, but then patient now stating to be unable to function at home and to now be open to a snf. Patient stating to have fallen at home last night. Patient was not home for more then 24hr from Inpatient Rehab Unit. Patient on the Inpatient Rehab unit from 07/14/2019-07/27/2019 and was sent home with home health care. Patient stating things are different at home and to not be able to care for self. Patient currently lives with patient mother, who is unable to assist patient. Patient also has a son, but patient son is not currently at home with patient. Patient stating to want to go to a snf and is requesting for this social media project manager to look into the [facility]. Telephone castillo to the [facility]. Provided Fanta with referral. Clinical information faxed. Pending response. Updated nursing staff. Will continue to follow. Dimitrios PATTERSON, SELVIN
--- NOTE | 2019-07-28 12:15 | CM.ED ---
Social Work Telephone call from [facility]. Patient has been accepted and is able to be transported. [facility] results faxed. Updated patient, doctor and nursing staff. Dimitrios PATTERSON, SELVIN
--- NOTE | 2019-07-28 12:37 | ED.RN ---
PHYSICIANS CONTACTED TO TRANSPORT PATIENT TO THE [facility]. 60 MIN ETA
[2019-07-28 13:48] VITALS: BP 110/70; PULSE 80; RESP 16; O2SAT 98
--- NOTE | 2019-07-28 13:59 | ED.RN ---
report called to [facility]. Miguelina ZULETA took report
== END 2019-07-28 13:49 ==
PROVIDERS: Emergency Provider Emergency Medicine; PCP Internal Medicine
DX: S39.012A Strain of muscle, fascia and tendon of lower back, initial encounter (principal); W19.XXXA Unspecified fall, initial encounter; Y93.9 Activity, unspecified; Y92.9 Unspecified place or not applicable; E11.9 Type 2 diabetes mellitus without complications; Z89.512 Acquired absence of left leg below knee; Z79.4 Long term (current) use of insulin; Z79.899 Other long term (current) drug therapy
CPT/HCPCS: 72100; 99285

== ENCOUNTER 2019-08-03 01:07 | Observation (INO) | payer MEDICARE, MEDICAID, SELFPAY ==
[2019-08-03 01:08] VITALS: BP 137/73; PULSE 105; RESP 16; TEMP 36.8; O2SAT 99; BMI 31.9
--- NOTE | 2019-08-03 01:13 | EKG12_ITS ---
Test Reason : ABN LABS Blood Pressure : / mmHG Vent. Rate : 099 BPM Atrial Rate : 099 BPM P-R Int : 174 ms QRS Dur : 100 ms QT Int : 362 ms P-R-T Axes : 035 038 054 degrees QTc Int : 464 ms Normal sinus rhythm Normal ECG Confirmed by DAVID HUMPHREY ([id number]), editor in chief newspaper JUSTIN HOU ([id number]) on 08/05/2019 3:06:30 PM Referred By: Ilir Brunson Confirmed By:DAVID HUMPHREY
--- NOTE | 2019-08-03 01:21 | ED.VIS.GEN ---
History of Present Illness Chief Complaint: Abn Labs Informant: Patient Narrative: Patient sent in from the [facility] [place] secondary to hyperkalemia. She had lab work drawn last night the just returned showing an elevated potassium slightly over 6. Patient does have a history of chronic renal insufficiency and has had problems with hyperkalemia in the past. Patient denies any significant complaints at this time. - Past Medical History (1) S/P BKA (below knee amputation) Status: Chronic Comment: 07/09/[address] Ray (2) Amputation of toe of right foot Status: Chronic Comment: R little toe (3) COPD (chronic obstructive pulmonary disease) Status: Chronic (4) Chronic renal failure, stage 4 (severe) Status: Chronic (5) Depression Status: Chronic (6) Gout Status: Chronic (7) Hyperlipidemia Status: Chronic (8) Hypertension Status: Chronic (9) Rheumatoid arthritis Status: Chronic Past Medical History - Allergies and Home Meds Allergies/Adverse Reactions: Allergies aspirin Allergy (Verified 08/03/19 01:13) Hives latex Allergy (Verified 08/03/19 01:13) Hives Penicillins Allergy (Verified 08/03/19 01:13) Hives simvastatin Allergy (Verified 08/03/19 01:13) Unknown naproxen [From Aleve] Adverse Reaction (Severe, Verified 08/03/19 01:13) Kidney disease Stage 3 Primary Care Physician: Pia Newton MD [Primary Care Provider] - Prior records reviewed: Yes Surgical History: - Lives: [facility] Smoking Status: Former smoker - Family History Maternal Family History: Family History (Last Reviewed 07/15/19 @ 16:[address] Katina Roach DO) Mother Diabetes Hypertension CVA (cerebral vascular accident) Brother Alcoholism Sister Cancer Father Heart disease Respiratory disease Family History: Reports: - Paternal Family History: Family History (Last Reviewed 07/15/19 @ 16:[address] Katina Roach DO) Mother Diabetes Hypertension CVA (cerebral vascular accident) Brother Alcoholism Sister Cancer Father Heart disease Respiratory disease Family History: Reports: - Offspring Family History: Family History (Last Reviewed 07/15/19 @ 16:[address] Katina Roach DO) Mother Diabetes Hypertension CVA (cerebral vascular accident) Brother Alcoholism Sister Cancer Father Heart disease Respiratory disease Family History: Reports: - - She has a son who is schizophrenic. Review of Systems General: Denies: Chills, Fever Eyes: Denies: Visual changes - bilaterally ENT: Denies: Bilateral ear pain Cardiovascular: Denies: Chest pain Respiratory: Denies: Dyspnea, Cough Gastrointestinal: Denies: Abdominal pain, Nausea, Vomiting, Diarrhea Genitourinary: Denies: Dysuria Musculoskeletal: Denies: Neck pain, Back pain Skin: Denies: Rash Hematologic: Denies: Easy bruising, Easy bleeding Allergy: Denies: Uticaria Physical Exam Vital Signs/Narrative: Vital Signs Temp Pulse Resp BP Pulse Ox 08/03/19 01:08 98.3 F 105 H 16 137/73 H 99 Inital Vital Signs reviewed: Yes General: Well nourished, Well developed Head: Normocephalic ENT: Moist mucous membranes Neck: Supple Cardiovascular: Regular rate, Regular rhythm Respiratory: No distress, CTA bilaterally Abdomen: Soft, Nontender Extremities: - - Left BKA with dressing in place. Neurological: Alert, Oriented x3 Psychological: Normal affect Diagnostic/Tx/Re-eval Laboratory Results 08/03/19 08/03/19 01:13 01:13 WBC 31.9 H* RBC 3.32 L Hgb 8.9 L Hct 28.8 L MCV 86.7 MCH 26.8 L MCHC 30.9 L RDW Std Deviation 57.0 H RDW Coeff of Racheal 18.0 H Plt Count 440 MPV 9.4 Immature Gran % (Auto) 4.000 H Neut % (Auto) 78.0 H Lymph % (Auto) 8.4 L [place] % (Auto) 6.8 Eos % (Auto) 2.2 Baso % (Auto) 0.6 Absolute Neuts (auto) 24.9 H Absolute Lymphs (auto) 2.68 Nucleated RBC % 0 Sodium 131 L Potassium 6.2 H* Chloride 105 Carbon Dioxide 19.0 L Anion Gap 7 BUN 70 H Creatinine 2.68 H Estim Creat Clear Calc 20.64 Est GFR (MDRD) Af Amer 23 L Est GFR (MDRD) Non-Af 19 L BUN/Creatinine Ratio 26.1 H Glucose 131 H Calcium 9.1 - EKG Initial EKG Interpretation: Sinus Rhythm - Sinus at 99 with no acute ischemia. Normal T waves noted. - Medical Decision Making Patient's potassium is repeated here tonight and verified at 6.2. Renal function looks similar to prior. Should be treated with Kayexalate. Patient does have a significantly elevated white blood cell count. This appears to be trending up since February 2019. At the time of discharge from rehab last week her white count was 30. Patient tells me they have been following this but at this time the etiology of her leukocytosis is unknown. Patient be admitted to PCU for cardiac monitoring and treatment of her hyperkalemia. ED Disposition - Plan for ED Patient: Disposition: Acute Care Hospital [facility] Diagnosis: Hyperkalemia Referrals: Pia Newton MD [Primary Care Provider] -
[2019-08-03 01:32] LABS: Absolute Lymphocyte Count 2.68 X10^3/uL (0.83-4.51); Absolute Neutrophil Count 24.9 X10^3/uL (2.0-7.7); Basophil# 0.18 X10^3/uL; Basophil% 0.6 % (0-1); Eosinophil# 0.69 X10^3/uL; Eosinophils% 2.2 % (0-5); Hematocrit 28.8 % (37-47); Hemoglobin 8.9 g/dL (12.0-15.0); Lymphocyte # 2.68 X10^3/ul (4.0); Lymphocyte % 8.4 % (19-41); Mean Corp Hgb Conc 30.9 g/dL (32-36); Mean Corpuscular Hgb 26.8 pg (27.0-32.0); Mean Corpuscular Volume 86.7 fL (81-99); Mean Platelet Vol. 9.4 fl (6.2-12.0); Monocyte# 2.17 X10^3/uL; Monocyte% 6.8 % (0-10); NRBC Flagged by Analyzer 0 % (0-5); Neutrophil # 24.91 X10^3/uL (2.7-7.7); POSITIVE COUNT YES; POSITIVE DIFFERENTIAL YES; Platelet Count 440 K/mm3 (150-450); Red Blood Count 3.32 M/mm3 (4.2-5.4)
[2019-08-03 01:39] LABS: Differential Indicated SCAN CRITERIA MET; White Blood Count 31.9 K/mm3 (4.4-11.0)
--- NOTE | 2019-08-03 01:42 | ED.RN ---
DR BARRIGA NOTIFIED OF WBC OF 31. VERBALIZED UNDERSTANDING
[2019-08-03 01:43] VITALS: BP 126/70; PULSE 93; RESP 17; O2SAT 100
[2019-08-03] MEDS: 0.9% Normal Saline 1,000 ML 150 ML IV (01:47)
[2019-08-03 01:50] LABS: Anion Gap 7 (5-15); BUN 70 mg/dL (7-18); BUN/Creat Ratio 26.1 RATIO (10-20); Calcium,Total 9.1 mg/dL (8.5-10.1); Chloride 105 mmol/L (98-107); Creatinine, Serum 2.68 mg/dL (0.55-1.02); EST Glomerular Filtration Rate 19 mL/min (>60); Est Glom Filt Rate - Afr Amer 23 mL/min (>60); Estimated Creatinine Clearance 20.64 ml/min; Glucose 131 mg/dL (74-106); Potassium 6.2 mmol/L (3.5-5.1); Sodium Level 131 mmol/L (136-145)
[2019-08-03 02:14] LABS: Anisocytosis RARE; Hypochromasia 1+; Platelet Estimate ADEQUATE (ADEQ); Polychromasia RARE
[2019-08-03] MEDS: Sodium Polystyrene Sulfonate 15 GM/60 ML UDC 30 GM PO ×2 (02:26→08:22)
[2019-08-03 02:28] VITALS: BP 143/92; PULSE 89; RESP 16; TEMP 36.8; O2SAT 100
--- NOTE | 2019-08-03 02:34 | ED.RN ---
[facility] was called and informed that pt was getting admitted to PCU.
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
[2019-08-03 02:43] VITALS: BMI 32.3
[2019-08-03 02:51] VITALS: BMI 32.3
[2019-08-03 02:57] VITALS: PULSE 90
[2019-08-03] MEDS: Loratadine 10 MG Tablet PO (03:19)
[2019-08-03 07:18] VITALS: PULSE 86
[2019-08-03 08:14] VITALS: BP 132/62; PULSE 85; RESP 16; TEMP 36.1; O2SAT 100
[2019-08-03] MEDS: dilTIAZem CD 180 MG Capsule PO (08:21)
[2019-08-03] MEDS: Atenolol 50 MG Tablet PO (08:21)
[2019-08-03] MEDS: Gabapentin 400 MG Capsule PO ×2 (08:22→13:11)
[2019-08-03 09:31] LABS: Pathologist Review Reviewed
--- NOTE | 2019-08-03 10:33 | NURSING ---
wound photo: left BKA
--- NOTE | 2019-08-03 10:34 | NURSING ---
wound photo: left BKA
[2019-08-03 11:34] LABS: Anion Gap 9 (5-15); BUN 70 mg/dL (7-18); BUN/Creat Ratio 25.8 RATIO (10-20); Calcium,Total 8.9 mg/dL (8.5-10.1); Chloride 105 mmol/L (98-107); Creatinine, Serum 2.71 mg/dL (0.55-1.02); EST Glomerular Filtration Rate 19 mL/min (>60); Est Glom Filt Rate - Afr Amer 23 mL/min (>60); Estimated Creatinine Clearance 20.41 ml/min; Glucose 166 mg/dL (74-106); Potassium 4.8 mmol/L (3.5-5.1); Sodium Level 134 mmol/L (136-145)
--- NOTE | 2019-08-03 12:28 | DS.PCM_ITS ---
Discharge Date and Diagnosis Date of Admission: 08/03/19 Date of Discharge: 08/03/19 - Primary Discharge Diagnosis Active and Suspected Problems (Last Reviewed 07/15/19 @ 16:[address] Katina Roach DO) Hyperkalemia (Acute) - Secondary Discharge Diagnosis Chronic Problems (Last Reviewed 07/15/19 @ 16:[address] Katina Roach DO) Iron deficiency anemia (Chronic) Inflammatory arthropathy (Chronic) Depression (Chronic) S/P BKA (below knee amputation) (Chronic) 07/09/[address] 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 It was listed in the previous H&P. 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 Ray Procedures: None Summary of Care Provided: The patient is a 59 year old F with a past medical history as outlined was admitted through the ED on 08/03/2019 due to abnormal labs which showed hyperkalemia. Patient has a history of BKA done in [facility] in June 2019 and afterwards underwent rehab. She went home but came back to the ER because she was not feeling well and was subsequently sent to the longterm. [facility] because of elevated potassium. Potassium was 6.2 on admission EKG showed no acute ST changes. She was admitted and managed for hyperkalemia. Patient says she had been drinking orange juice and thought she drank orange juice concentrate which she diluted down and was suspected that this may be the cause of her symptoms. She denied eating bananas bananas frequently and also did not drink coconut water often and was not on any potassium supplements nor took any medication that could increase her potassium level. She was treated with Kayexalate and received 2 doses. Repeat BMP showed potassium of 4.8. Patient remained stable and was discharged back to the longterm on 08/03/2019. She is to follow-up with her primary care doctor. She is to have a potassium level checked within the next 2 to 3 days to ensure that it is not elevated. She was counseled not to eat a lot of bananas, nor drink a lot of orange juice and coconut water as this could cause elevation in her potassium. Patient seen and examined prior to discharge. She had no complaints. Review of systems otherwise negative. Labs and vitals reviewed. Home medication reviewed and reconciled. o/e: Vital Signs Temp Pulse Resp BP Pulse Ox 97.0 F L 85 16 132/62 H 100 08/03/19 08:14 08/03/19 08:14 08/03/19 08:14 08/03/19 08:14 08/03/19 08:14 [] General: Alert, Oriented x3, Cooperative, No apparent distress, HEENT: Atraumatic, PERRLA, EOMI, Normocephalic Oral: Moist Mucosa Neck: Supple, No JVD, Negative Carotid Bruits, Trachea Midline, Thyroid Normal Size and Texture Lungs: Clear to auscultation, Normal air movement, No rhonchi, No wheeze, No rales Cardiovascular: Regular rate, Regular Rhythm, Normal S1, Normal S2, No murmurs, PMI Normal, No rub noted, No Gallop Abdomen: Bowel Sounds Present, Soft, Non Tender, Non-Distended Extremities: No clubbing, No cyanosis, Capillary Refill Less than 3 Seconds, - - Left BKA with stump in bandage Skin: No rashes, No breakdown Musculoskeletal: No Tenderness to Palpation of Joints or Extremities Neurological: Cranial nerves II-XII grossly intact, Neuro grossly intact, Psych/Mental Status: Normal Affect, Appropriate, Alert and oriented to time, place, person, mood and affect Plan is for discharge back to her longterm today. - Physical Exam Vitals/I&O's: Vital Signs Temp Pulse Resp BP Pulse Ox 97.0 F L 85 16 132/62 H 100 08/03/19 08:14 08/03/19 08:14 08/03/19 08:14 08/03/19 08:14 08/03/19 08:14 Oxygen Delivery Method Room Air Weight: 199 lb 15.348 oz Body Mass Index (BMI) 32.3 Finger Stick Blood Glucose 97 Intake and Output for Last 24 Hours 08/01/19 08/02/19 08/03/19 23:59 23:59 23:59 Intake Total 572.5 / 572.5 Balance 572.5 / 572.5 Laboratory Results 08/03/19 01:13: WBC 31.9 H*, RBC 3.32 L, Hgb 8.9 L, Hct 28.8 L, MCV 86.7, MCH 26.8 L, MCHC 30.9 L, RDW Std Deviation 57.0 H, RDW Coeff of Racheal 18.0 H, Plt Count 440, MPV 9.4, Immature Gran % (Auto) 4.000 H, Neut % (Auto) 78.0 H, Lymph % (Auto) 8.4 L, [place] % (Auto) 6.8, Eos % (Auto) 2.2, Baso % (Auto) 0.6, Absolute Neuts (auto) 24.9 H, Absolute Lymphs (auto) 2.68, Nucleated RBC % 0, Differential Comment COMMENT, Diff Path Review Reviewed, Platelet Estimate ADEQUATE, Polychromasia RARE, Hypochromasia 1+, Anisocytosis RARE 08/03/19 01:13: Sodium 131 L, Potassium 6.2 H*, Chloride 105, Carbon Dioxide 19.0 L, Anion Gap 7, BUN 70 H, Creatinine 2.68 H, Estim Creat Clear Calc 20.64, Est GFR (MDRD) Af Amer 23 L, Est GFR (MDRD) Non-Af 19 L, BUN/Creatinine Ratio 26.1 H, Glucose 131 H, Calcium 9.1 08/03/19 10:50: Sodium 134 L, Potassium 4.8, Chloride 105, Carbon Dioxide 20.0 L , Anion Gap 9, BUN 70 H, Creatinine 2.71 H, Estim Creat Clear Calc 20.41, Est GFR (MDRD) Af Amer 23 L, Est GFR (MDRD) Non-Af 19 L, BUN/Creatinine Ratio 25.8 H , Glucose 166 H, Calcium 8.9 Current Medications Acetaminophen (Tylenol) 650 mg PO Q6H PRN PRN PRN Reason: Pain Score 1-10/Temp > 100.7 F Hydrocodone Bitart/Acetaminophen ([place] 5mg-325mg) 1 tablet PO Q4H PRN PRN PRN Reason: Pain (1-10/10) or Fever Atenolol (Tenormin (Beta Jona)) 50 mg PO DAILY ON LICENSE OF [facility] Last Admin: 08/03/19 08:21 Dose: 50 mg Documented by: Diltiazem HCl (Cardizem Cd) 180 mg PO DAILY ON LICENSE OF [facility] Last Admin: 08/03/19 08:21 Dose: 180 mg Documented by: Gabapentin (Neurontin) 400 mg PO TIDCM ON LICENSE OF [facility] Last Admin: 08/03/19 08:22 Dose: 400 mg Documented by: Sodium Chloride () 250 mls @ 15 mls/hr IV .[id number] PRN PRN Reason: Saline Flush Sodium Chloride () 250 mls @ 15 mls/hr IV .[id number] PRN PRN Reason: Additional IVPB Infusion Sodium Chloride () 10 - 40 ml IV UD PRN PRN Reason: SALINE FLUSH Discharge Diet: Low fat/ Low Cholesterol Home Medications: Medications to take at Discharge Atenolol [Tenormin (beta jona)] 50 mg PO DAILY 08/10/18 diltiazem HCl 180 mg capsule,extended release 24 hr 180 mg PO DAILY cap 12/15/18 cyclobenzaprine 10 mg tablet 10 mg PO TID PRN #90 tab 02/02/19 Allopurinol 300 mg PO DAILY 07/03/19 Cholecalciferol (Vitamin D3) [D3-50] 50,000 unit PO MO 07/03/19 Ferrous Sulfate 325 mg PO 1200,1700 07/14/19 Gabapentin [Neurontin] 400 mg PO TIDCM #90 cap 07/27/19 Mupirocin [Bactroban] 1 applic TOPICAL DAILY #1 tube 07/27/19 Zinc Sulfate (50mg elemental) [Zinc Sulfate] 220 mg PO DAILY #30 cap 07/27/19 buPROPion tablets [Wellbutrin tablets] 75 mg PO BID #60 tab 07/27/19 Amitriptyline HCl 25 mg PO QHS 08/03/19 Ascorbic Acid [Vitamin C] 500 mg PO DAILY 08/03/19 Bisacodyl 10 mg [place] DAILY PRN PRN 08/03/19 Hydrocodone/Acetaminophen [[place] 5-325 Tablet] 1 ea PO Q4H PRN PRN 08/03/19 Magnesium Hydroxide [Milk of Magnesia] 30 ml PO DAILY PRN PRN 08/03/19 Mineral Oil 1 ea RECTAL DAILY PRN 08/03/19 Nystatin Powder [Mycostatin Powder] 1 applic TOPICAL BID 08/03/19 Primary Care Physician: Pia Newton MD [Primary Care Provider] - Please follow up with your Primary Care Physician in: 1-2 weeks Disposition: Longterm facility Minutes spent on discharge:: 35 Patient Condition:: Stable Medical Necessity - Tobacco Use Smoking Status: Former smoker Tobacco Use: Non-smoker Meaningful Use Info Meaningful Use Diagnoses (Choose all that apply): None applicable OBSV E&M: 14647 Observ/hosp same date L2
--- NOTE | 2019-08-03 12:28 | PCM.TXEXTCAR ---
- Diet 08/03/19 02:42 Diet: Regular Diet Food consistency:: Regular Liquid Consistency:: Regular/Thin Type of Dietary Supplement:: Pancho ([place]) - Routine Orders/Code Status Enema Type: Fleetz Enema Frequency: Daily PRN Suppository Type: Dulcolax 10mg Suppository Frequency: Daily PRN - Wound(s) left leg amputation Wound Type: surgical incision with dehisced area Dressing Change: AntiMicrobial (Aquacel AG, etc) - Therapies Weight Bearing: Weight bearing as tolerated Physical Therapy: Eval and Treat Occupational Therapy: Eval and Treat - Allergies/Procedures Done in Hospital Allergies/Adverse Reactions: Allergies aspirin Allergy (Verified 08/03/19 01:13) Hives latex Allergy (Verified 08/03/19 01:13) Hives Penicillins Allergy (Verified 08/03/19 01:13) Hives simvastatin Allergy (Verified 08/03/19 01:13) Unknown naproxen [From Aleve] Adverse Reaction (Severe, Verified 08/03/19 01:13) Kidney disease Stage 3 Procedures: None - Type of Care/Length of Stay Estimated LOS: Convalescent Care Less Than 30 days Type of Care Needed: Skilled Rehab Potential: Fair Prognosis: Fair - Additional Orders/Day of Discharge Additional Orders: repeat BMP in 1-2 days to follow up on potassium levels. Patient counselled not to drink too much orange juice or coconut water, or eat too many bananas as they are high in potassium Day of Discharge: 08/03/19 - Follow Up Care Primary Care Physician: Pia Newton MD [Primary Care Provider] - Please follow up with your Primary Care Physician in: 1-2 weeks
--- NOTE | 2019-08-03 13:22 | CASEMGMT ---
Addendum entered by Amanda Jackson 08/03/19 13:38: PUJA faxed orders to [facility]. SW called and left a message letting Fanta know she can come crop picker patient. SW notified MANAGER FIBER, RN, ward secretary, and patient. Patient said she will contact her mom when she returns. Plan: d/c back to [facility] under intermediate level of care. [facility] transported patient. Amanda MONTALVO BROADCAST CHECKER Original Note: Patient is ready for discharge back to [facility]. PUJA notified Fanta at [facility]. PUJA cannot get wc transport with [facility] as they do not have wc vans available on and . PUJA spoke with patient and she can stand and pivot. PUJA called Fanta at [facility] and she said she can come get patient. SW is awaiting orders. Plan: d/c back to [facility]. Amanda PATTERSON
--- NOTE | 2019-08-03 14:17 | NURSING ---
report called to [facility]
== END 2019-08-03 12:30 | disposition skilled nursing facility (03) ==
LOC: ED 01:55 → PCU 04:19
PROVIDERS: Admitting Provider Internal Medicine; Emergency Provider Emergency Medicine; PCP Internal Medicine; Referring Provider Internal Medicine; Visit Provider Student in an Organized Health Care Education/Training Program
DX: E87.5 Hyperkalemia (principal); D50.9 Iron deficiency anemia, unspecified; M12.80 Other specific arthropathies, not elsewhere classified, unspecified site; F32.9 Major depressive disorder, single episode, unspecified; E11.42 Type 2 diabetes mellitus with diabetic polyneuropathy; E11.22 Type 2 diabetes mellitus with diabetic chronic kidney disease; N18.4 Chronic kidney disease, stage 4 (severe); E78.5 Hyperlipidemia, unspecified; M10.9 Gout, unspecified; I12.9 Hypertensive chronic kidney disease with stage 1 through stage 4 chronic kidney disease, or unspecified chronic kidney disease; M06.9 Rheumatoid arthritis, unspecified; J44.9 Chronic obstructive pulmonary disease, unspecified; E66.9 Obesity, unspecified; I25.10 Atherosclerotic heart disease of native coronary artery without angina pectoris; G47.30 Sleep apnea, unspecified; M32.9 Systemic lupus erythematosus, unspecified; D72.829 Elevated white blood cell count, unspecified; D63.1 Anemia in chronic kidney disease; Z79.899 Other long term (current) drug therapy; Z89.512 Acquired absence of left leg below knee; Z68.32 Body mass index [BMI] 32.0-32.9, adult; Z87.891 Personal history of nicotine dependence
CPT/HCPCS: 36415; 80048; 85025; 93005; 96360; 99218; 99285; A4216; G0378

== ENCOUNTER 2019-08-09 13:04 | Outpatient (RCR) | payer MEDICARE, SELFPAY ==
[2019-08-09 13:21] VITALS: BP 104/63; PULSE 67; RESP 18; TEMP 36.7; BMI 31.3
--- NOTE | 2019-08-09 14:53 | PCM.WC.PN ---
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 Ray (4) History of recent fall Status: Acute Code(s): Z91.81 - History of falling (5) Physical debility Status: Chronic Code(s): R53.81 - Other malaise Comment: due to L BKA (6) Chronic renal failure, stage 4 (severe) Status: Chronic Code(s): N18.4 - Chronic kidney disease, stage 4 (severe) (7) Moderate protein-calorie malnutrition Status: Chronic Code(s): E44.0 - Moderate protein-calorie malnutrition (8) Type 2 diabetes mellitus with diabetic polyneuropathy Status: Chronic Qualifiers: Diabetes mellitus residential insulin use: unspecified long term care phlebotomist insulin use status Qualified Code(s): E11.42 - Type 2 diabetes mellitus with diabetic polyneuropathy Code(s): E11.42 - Type 2 diabetes mellitus with diabetic polyneuropathy (9) Tobacco use disorder Status: Chronic Code(s): F17.200 - Nicotine dependence, unspecified, uncomplicated Type of Wound Date of Service: 08/09/19 Chief Complaint: Dehiscence of left below amputation after a fall on 07/28/2019. History of Wound: Patient is post op from a left below knee amputation on 07/09/19. She went to TCU and was discharged home on 07/26/19. She fell at home on 07/27/19 and ended up in the ED. She denied falling on her left stump at that time, but states today that she did infact fall on it. She is now residing at the [facility]. Today she denies any fever. She states her appetite is poor. She does not like the food at the ECF and she doesn't like the protein shakes. Progress of Wound: Sutures removed. There is a dehiscence of the left BKA stump ulcer. Do not palpate bone. - Physical Exam Vital Signs Temp Pulse Resp BP 98.1 F 67 18 104/63 08/09/19 13:21 08/09/19 13:21 08/09/19 13:21 08/09/19 13:21 General: Alert, Oriented x3, Cooperative HEENT: Atraumatic Oral: Moist Mucosa Lungs: Normal air movement Cardiovascular: Regular rate Abdomen: Obese Extremities: Capillary Refill Less than 3 Seconds, Edema Skin: Ulcer/ Wound - Left BKA stump dehiscence of suture line. Sutures removed without diffuculty. Sutures at the dehiscence were intact but not effective., - - Skin color is ashy Wound Measurements and Assessment WC - Nurse 1 - General Ulcer Measurement Start: 08/09/19 13:21 Freq: Status: Active Protocol: Activity Type Activity Date Activity User E-Sign Co-Sign Detail Recorded Client Recorded Date Recorded By Document 08/09/19 13:21 MW [id number] 08/09/19 13:29 MW 08/09/19 13:21 Wound Center Nurse 1 [Ulcer Assessment] #7 left BKA Dehiscence -Combined with other wound No -Current Size (cm) - Length 1.2 -Current Size (cm) - Width 3.8 -Current Size (cm) - Depth 0.3 -Total Square Cm 4.56 -Date of Last Picture (Recall this 08/09/19 field) -Photo Taken Yes -Epithelialization None Present -Tunneling No -Undermining/Tunneling No -Circular Undermining No -Exudate Amt Large -Exudate Type Serosanguineous -Wound Margin Indistinct, Non -Visible -Granulation Amt Small (1-33%) -Granulation Quality Pale -Slough/Fibrin Yes -Necrosis Amt Large (67-100%) -Necrotic Tissue Type Adherent Slough -Structure Exposed N/A -Texture (Loly-wound Skin Appearance) Assessed, Localized Edema ,Scarring -Moisture (Loly-wound Skin Appearance No Abnormality, ) Assessed -Color (Loly-wound Skin Appearance) No Abnormality, Assessed -Temperature (Loly-wound Skin No Abnormality Appearance) (Pt Warm) -Tenderness on Palpation (Loly-wound No Skin Appearance) -Ulcer Cleansing Rinsed/ Irrigated with Saline -Foul Odor after Cleansing No -Anesthetic Used 5% Lidocaine Gel [Edema Assessment] -Lower Limb Edema Present No WC - Nurse 2 - General Ulcer CM Notes Start: 08/09/19 13:21 Freq: Status: Active Protocol: Activity Type Activity Date Activity User E-Sign Co-Sign Detail Recorded Client Recorded Date Recorded By Document 08/09/19 13:56 [id number] 08/09/19 14:09 08/09/19 13:56 Wound Center Nurse 2 [Procedure/Treatment] #7 left BKA Dehiscence -Time 13:56 -Correct Patient Yes -Correct Side, Site, Position Yes -Correct Procedure Yes -Procedure Performed Yes -Type of Procedure Debridement -Clinical Debridement Muscle -Post Debridement Size (cm) - Length 19.0 -Post Debridement Size (cm) - Width 1.3 -Post Debridement Size (cm) - Depth 3.5 -Total Square Cm 24.70 -Wound/Ulcer Outcome Not Healed -Ulcer Cleansing Rinsed/ Irrigated with Saline -Foul Odor after Cleansing No -Bioengineered Tissue No -Bleeding Controlled with Pressure -Offloading No -Treatment Response Procedure Tolerated Well [See Physician Procedure note for Specifics] Pain Scale: 0-10 Numeric [Pain] -Is Patient Pain Free? Yes Musculoskeletal: Tenderness Neurological: Neuro grossly intact Psych/Mental Status: Normal Affect, Appropriate Debridement Note Post-Debridement Measurements/Treatment IRON - Nurse 2 - General Ulcer CM Notes Start: 08/09/19 13:21 Freq: Status: Active Protocol: Activity Type Activity Date Activity User E-Sign Co-Sign Detail Recorded Client Recorded Date Recorded By Document 08/09/19 13:56 [id number] 08/09/19 14:09 08/09/19 13:56 Wound Center Nurse 2 #7 left BKA Dehiscence -Time 13:56 -Correct Patient Yes -Correct Side, Site, Position Yes -Correct Procedure Yes -Procedure Performed Yes -Type of Procedure Debridement -Clinical Debridement Muscle -Post Debridement Size (cm) - Length 19.0 -Post Debridement Size (cm) - Width 1.3 -Post Debridement Size (cm) - Depth 3.5 -Total Square Cm 24.70 -Wound/Ulcer Outcome Not Healed -Ulcer Cleansing Rinsed/ Irrigated with Saline -Foul Odor after Cleansing No -Bioengineered Tissue No -Bleeding Controlled with Pressure -Offloading No -Treatment Response Procedure Tolerated Well Pain Scale: 0-10 Numeric Is Patient Pain Free? Yes Wound debrided: BKA stump dehiscence wound Laterality: Left Type of Debridement: Excisional debridement Anesthesia Used: 5% Lidocaine Gel Depth: Down to and including healthy tissue, in the subcutaneous layer, to muscle Percentage of wound debrided: 100 Instrument Used: 5mm curette Tissue Removed: Subcutaneous tissue and slough into the muscle. Did not palpate the bone. Severity: Fat Layer Exposed Bleeding Controlled with: Pressure Patient tolerated procedure well Assessment/Plan Assessment: 1. Dehyiscence of amputation stump. 2. Non pressure ulcer of stump of Left BKA. 3. Type 2 DM. 4. Chronic Renal Failure, stage 4. 5. Physical Debility. 6. History of Recent Fall. 7. Tobacco abuse Plan: Surgery on 07/09/19 for Left below knee amputation. [id number]: [id number] Global Visit
== END 2019-08-29 23:59 ==
LOC: WC 13:04
PROVIDERS: PCP Internal Medicine; Visit Provider Nurse Practitioner Family
DX: T87.81 Dehiscence of amputation stump (principal); Z89.512 Acquired absence of left leg below knee; N18.4 Chronic kidney disease, stage 4 (severe); E11.22 Type 2 diabetes mellitus with diabetic chronic kidney disease; E11.42 Type 2 diabetes mellitus with diabetic polyneuropathy; F17.200 Nicotine dependence, unspecified, uncomplicated; Z91.81 History of falling
CPT/HCPCS: 11043; 11046; 99213; G0463

== ENCOUNTER 2019-08-12 13:11 | Emergency (ER) | payer MEDICARE, MEDICAID, SELFPAY ==
[2019-08-12 13:13] VITALS: BP 118/60; RESP 19; TEMP 36.8; BMI 34.6
--- NOTE | 2019-08-12 13:35 | RAD_ITS ---
STUDY: X-RAY CHEST REASON FOR EXAM: Female, 59 years old. Abd pain and nausea with pain starting last night TECHNIQUE: Single AP portable view of the chest. COMPARISON: Comparison is made with prior study dated July 03, 2019. FINDINGS: Mild elevation of the right hemidiaphragm. There is evidence of vascular congestion and mild degree of CHF. There is moderate cardiac enlargement. Normal mediastinum and josie. Normal visualized pulmonary arteries. There is atherosclerotic calcification of the aortic arch with tortuosity. There are diffuse degenerative changes of the visualized thoracic spine. Normal visualized ribs, clavicles, and shoulders. There is no demonstrated abnormality of the visualized soft tissue structures of the upper abdomen. RAD/Chest 1 View (Portable) IMPRESSION: Cardiomegaly. Mild degree of vascular congestion. Electronically Signed: Mahesh Olivia, at 14:17 EDT , Service support ,
--- NOTE | 2019-08-12 13:38 | CT_ITS ---
STUDY: CT ABDOMEN AND PELVIS WITHOUT CONTRAST REASON FOR EXAM: Female, 59 years old. ABD PAIN, NAUSEA RADIATION DOSAGE (If Supplied By Facility): CTDIvol = ( 20.10 ) mGy, DLP = ( 1069.64 ) mGycm TECHNIQUE: Transaxial images were obtained from the dome of the diaphragm to the symphysis pubis without oral contrast, and without intravenous contrast. Sagittal and coronal images were reconstructed. Individualized dose optimization techniques were used for this CT. COMPARISON: Comparison is made with prior examination dated May 01, 2012. FINDINGS: 8.8 mm bulla in the left lower lobe. Coronary artery calcification. Hepatomegaly. Multiple hypodense nodules are seen throughout the liver in keeping with diffuse hepatic metastasis. Normal gallbladder and extrahepatic biliary system. There is a 3.3 cm x 3.5 cm hypodense mass in the medial aspect of the spleen involving the upper and mid portions of the spleen. Metastatic deposit should be ruled out. Borderline splenomegaly. Normal pancreas. Normal bilateral adrenal glands. Engorgement of the right kidney. Right perinephric stranding. Minimal degree of right hydronephrosis. Small cyst in the left kidney. Normal visualized stomach. Normal small intestine. There are multiple colonic diverticula consistent with diverticulosis. There is non-visualization of the appendix. There is diffuse atherosclerotic calcification of the abdominal aorta, without a demonstrated aneurysm. Normal inferior vena cava. Normal retroperitoneum. Normal urinary bladder. There is absence of the uterus consistent with a prior hysterectomy. Normal abdominal wall. There are diffuse degenerative changes of the visualized lumbar spine. Levoscoliosis of the lumbar spine. Straightening of the normal lumbar lordosis. CT/Abdomen/Pel W ORAL Cont Only IMPRESSION: Hepatomegaly with multiple hypodense nodules throughout the liver in keeping with diffuse metastatic deposits. 3.3 cm x 3.5 cm hypodense mass in the upper midportion of the spleen. A metastatic deposit should be ruled out. Mild enlargement of the right kidney with the perinephric stranding and mild right hydronephrosis although no obstructive uropathy is seen at this time. Electronically Signed: Mahesh Olivia, at 15:37 EDT , Service support ,
--- NOTE | 2019-08-12 13:54 | ED.DCSUM_ITS ---
- ER Visit Summary Date of Service: 08/12/19 Chief Complaint: Right-sided abdominal and chest pain History of Present Illness: The patient is a 59 F who presents with right-sided abdominal pain and chest pain that began yesterday. Patient states the pain is localized to the right chest, right upper and lower abdomen. Patient states her pain is constant. Patient describes her pain as intense. Patient states her pain is slightly better when she lays on her left side. Patient admits to some nausea and vomiting. Patient denies any hematemesis or coffee-ground emesis. Patient denies any diarrhea, melena, or hematochezia. Patient denies any dysuria or hematuria. Patient denies any fevers or chills. Patient denies any shortness of breath or cough. Physical Examination: Vital signs are stable. Patient is afebrile. Patient is in no acute distress. Oral mucosa is pink and moist. Neck is supple. Trachea is midline. There is no JVD. Heart was regular rate and rhythm. Lungs are diminished bilaterally. There is poor respiratory effort. Abdomen is soft. Bowel sounds are normal. There is right upper and right lower quadrant tenderness. It is worse in the right upper quadrant. There is no rebound or guarding noted. Cranial nerves II through XII are intact. There are no focal motor or sensory deficits. Test Results: CBC shows a leukocytosis of 26.5 which is improving compared to previous results. Hemoglobin is 8.1 and hematocrit is 25.9. These results are stable compared to previous results. Potassium was 5.5. BUN and creatinine were 71 and 2.74 respectively. These are consistent with prior results. Alk phos was slightly elevated at 724. AST was slightly elevated at 38. Urinalysis does not show any evidence of urinary tract infection. Chest x-ray shows cardiomegaly and some mild congestion. CT scan of the abdomen and pelvis was obtained. There is metastatic nodules throughout the liver. There is a 3.3 x 3.5 cm hypodense mass in the spleen possibly metastatic disease. These were interpreted by the radiologist and reviewed by myself. Emergency Department Course and Treatment: Patient was given morphine and IV fluids here. Patient was also given Zofran. Patient was given a dose of Kayexalate for her hyperkalemia. Patient was still having pain. Patient was given a dose of morphine and Zofran again. Results were discussed with the patient. Patient does not report any history of cancer. Patient states that she was supposed to be evaluated for possible leukemia or lymphoma because of her elevated white blood cell counts. Case was discussed with the hospitalist. He felt that the patient would be able to be worked up as an outpatient. Case was discussed with Dr. Martinez. He is agreeable with this. Patient was given a prescription for Percocet. Patient understands and is agreeable with the plan. All questions were answered. Disposition: Discharged to extended-care facility Impression: 1. Metastatic liver disease 2. Right upper quadrant abdominal pain This note was generated with [employer] software. It may contain incorrect words, spelling, and punctuation that were not noted in review of the chart prior to signing ED Disposition - Plan for ED Patient: Disposition: Home or Assisted Living Diagnosis: Metastatic cancer to liver, Right upper quadrant abdominal pain Instructions: ED Tumor [facility] Referrals: Pia Newton MD [Primary Care Provider] - Sravan Martinez MD [STAFF PHYSICIAN] - 5-7 Days
[2019-08-12] MEDS: 0.9% Normal Saline 1,000 ML 1000 ML IV (13:58)
[2019-08-12] MEDS: Ondansetron 4 MG/2 ML Vial IV ×2 (13:59→17:14)
[2019-08-12] MEDS: Morphine 4 MG/ML Syringe IV ×2 (13:59→17:14)
[2019-08-12 14:17] LABS: Absolute Lymphocyte Count 1.99 X10^3/uL (0.83-4.51); Absolute Neutrophil Count 20.8 X10^3/uL (2.0-7.7); Basophil# 0.14 X10^3/uL; Basophil% 0.5 % (0-1); Eosinophil# 0.74 X10^3/uL; Eosinophils% 2.8 % (0-5); Hematocrit 25.9 % (37-47); Hemoglobin 8.1 g/dL (12.0-15.0); Lymphocyte # 1.99 X10^3/ul (4.0); Lymphocyte % 7.5 % (19-41); Mean Corp Hgb Conc 31.3 g/dL (32-36); Mean Corpuscular Hgb 26.6 pg (27.0-32.0); Mean Corpuscular Volume 84.9 fL (81-99); Mean Platelet Vol. 9.4 fl (6.2-12.0); Monocyte% 6.8 % (0-10); NRBC Flagged by Analyzer 0 % (0-5); Neutrophil # 20.75 X10^3/uL (2.7-7.7); Neutrophil % 78.2 % (47-70); POSITIVE DIFFERENTIAL YES; Platelet Count 294 K/mm3 (150-450); RBC Distribution Width CV 18.7 % (11.6-14.6); Red Blood Count 3.05 M/mm3 (4.2-5.4); White Blood Count 26.5 K/mm3 (4.4-11.0)
[2019-08-12 14:22] LABS: Differential Indicated SCAN CRITERIA MET
[2019-08-12 14:30] LABS: ALB/GLOB Ratio 0.4 RATIO (0.9-2.4); AST(SGOT) 38 U/L (15-37); Alanine Aminotransfer ALT/SGPT 20 U/L (13-56); Alkaline Phosphatase 724 U/L (45-117); Anion Gap 9 (5-15); BUN 71 mg/dL (7-18); BUN/Creat Ratio 25.9 RATIO (10-20); Calcium,Total 9.1 mg/dL (8.5-10.1); Chloride 103 mmol/L (98-107); Creatinine, Serum 2.74 mg/dL (0.55-1.02); EST Glomerular Filtration Rate 19 mL/min (>60); Est Glom Filt Rate - Afr Amer 23 mL/min (>60); Estimated Creatinine Clearance 20.18 ml/min; Globulin 5.5 g/dL (2.2-4.2); Glucose 139 mg/dL (74-106); Lipase 86 U/L (73-393); Potassium 5.5 mmol/L (3.5-5.1); Protein, Total 7.5 g/dL (6.4-8.2); Sodium Level 132 mmol/L (136-145)
[2019-08-12 14:34] LABS: Mucous, Urine 0 SEEN /hpf (<or=2+); Red Blood Cells-Urine 0 SEEN /hpf (0-5); White Blood Cells 0 SEEN /hpf (0-5)
[2019-08-12 14:50] LABS: Color, Urine Yellow (Yellow); Glucose, Dipstick Normal (Normal); Ketone-Dipstick Negative (Negative); Leukocyte Esterase-Dipstick Negative /ul (Negative); Nitrite-Dipstick Negative (Negative); Occult Blood-Urine Negative /ul (Negative); Protein-Dipstick 500 mg/dl (Negative); Specific Gravity, Urine 1.015 (1.002-1.030); Urine Bilirubin Dipstick Negative (Negative); Urine Clarity Clear (Clear); Urine Urobilinogen Normal (Normal)
[2019-08-12 14:59] LABS: Bacteria 1+ /hpf (None Seen); Squamous Epithelial Cells - UA 0-5 SEEN /hpf (5-10)
[2019-08-12 15:16] VITALS: RESP 18
[2019-08-12 15:48] VITALS: BP 134/54; PULSE 54; RESP 17; O2SAT 96
[2019-08-12 17:15] VITALS: BP 145/67; PULSE 60; RESP 15; O2SAT 99
--- NOTE | 2019-08-12 18:05 | ED.RN ---
report called back to [facility]. nurse vasques informed of pt return and follow up regarding liver cancer. educated on pt prescription. pt awaiting ride.
[2019-08-12] MEDS: Sodium Polystyrene Sulfonate 15 GM/60 ML UDC PO (18:09)
[2019-08-12 18:12] VITALS: BP 148/84; PULSE 61; RESP 17; O2SAT 97
[2019-08-13 10:06] LABS: Pathologist Review Reviewed
== END 2019-08-12 18:22 | disposition home or self-care (01) ==
PROVIDERS: Emergency Provider Emergency Medicine; PCP Internal Medicine
DX: K76.89 Other specified diseases of liver (principal); R10.11 Right upper quadrant pain; E87.5 Hyperkalemia; D73.89 Other diseases of spleen; E66.9 Obesity, unspecified; J44.9 Chronic obstructive pulmonary disease, unspecified; E78.00 Pure hypercholesterolemia, unspecified; E11.40 Type 2 diabetes mellitus with diabetic neuropathy, unspecified; E11.22 Type 2 diabetes mellitus with diabetic chronic kidney disease; I12.9 Hypertensive chronic kidney disease with stage 1 through stage 4 chronic kidney disease, or unspecified chronic kidney disease; N18.9 Chronic kidney disease, unspecified; F32.9 Major depressive disorder, single episode, unspecified; M10.9 Gout, unspecified; Z86.14 Personal history of Methicillin resistant Staphylococcus aureus infection; Z79.899 Other long term (current) drug therapy; Z87.891 Personal history of nicotine dependence
CPT/HCPCS: 71045; 74176; 80053; 81001; 83690; 85025; 96361; 96374; 96375; 96376; 99285; J7030; A4216; J2405

== ENCOUNTER 2019-08-14 09:51 | Emergency (ER) | payer MEDICARE, MEDICAID, SELFPAY ==
[2019-08-14] VITALS (7 sets, daily range): BP systolic 123–143; BP diastolic 37–98; PULSE 51–96; RESP 15–20; TEMP 36.9; O2SAT 95–100; BMI 33.4
[2019-08-14 10:06] LABS: Bedside Glucose 151 mg/dL (70-110)
--- NOTE | 2019-08-14 10:23 | RAD_ITS ---
STUDY: X-RAY CHEST REASON FOR EXAM: Mild, 59 years old. FALL. ALTERED MENTAL STATUS TECHNIQUE: Frontal view COMPARISON: August 12, 2019 FINDINGS: The lungs are expanded. Mild interstitial prominence. Mild cardiomegaly. Normal mediastinum and josie. Normal visualized pulmonary arteries. Calcified visualized aortic arch and descending thoracic aorta. Degenerative changes of the thoracic spine. Normal visualized ribs, clavicles, and shoulders. There is no demonstrated abnormality of the visualized soft tissue structures of the upper abdomen. RAD/Chest 1 View (Portable) IMPRESSION: Mild pulmonary interstitial prominence. Electronically Signed: Isaias Weldon DO at 12:06 EDT Tel [phone], Service support ,
--- NOTE | 2019-08-14 10:23 | CT_ITS ---
STUDY: CT BRAIN WITHOUT CONTRAST REASON FOR EXAM: Female, 59 years old. FALL, CONFUSION, PT UNABLE TO HOLD STILL RADIATION DOSAGE (If Supplied By Facility): CTDIvol = ( 44.99 ) mGy, DLP = ( 863.60 ) mGycm TECHNIQUE: Transaxial CT imaging of the brain was performed without administration of intravenous contrast material. Individualized dose optimization techniques were used for this CT. COMPARISON: No relevant priors. FINDINGS: Right parietal subcutaneous mass.. Normal calvarium. Normal size ventricles and extra-axial spaces for the patient''s age. Mild white matter microangiopathic ischemic changes of the cerebral hemispheres. Normal basal ganglia and thalami. Normal brainstem. Normal cerebellum. There is no intracranial hemorrhage. There are no findings of an acute ischemic infarction. Normal visualized paranasal sinuses. CT/Brain/Head without Contrast IMPRESSION: Mild age-related changes of the brain. Electronically Signed: Isaias Weldon DO at 11:57 EDT Tel [phone], Service support ,
--- NOTE | 2019-08-14 10:25 | CT_ITS ---
STUDY: CT CERVICAL SPINE WITHOUT CONTRAST REASON FOR EXAM: Female, 59 years old. FALL, CONFUSION, PT UNABLE TO HOLD STILL RADIATION DOSAGE (If Supplied By Facility): CTDIvol = ( 29.4 ) mGy, DLP = ( 1156.23 ) mGycm TECHNIQUE: High resolution transaxial imaging was performed without contrast material. Sagittal and coronal images were reconstructed. Individualized dose optimization techniques were used for this CT. COMPARISON: None FINDINGS: Technically limited study due to motion artifact. Normal craniovertebral junction. Normal anterior atlantoaxial articulation. Normal odontoid process. Normal cervical lordosis. Normal vertebral bodies and posterior osseous elements. C2-3: Normal endplates. Normal disc height and morphology. Normal central canal and intervertebral neuroforamina. C3-4: Normal endplates. Normal disc height and morphology. Normal central canal and intervertebral neuroforamina. C4-5: Mild spurring at the endplates. Grade 1 spondylolisthesis. Normal disc height and morphology. Normal central canal. Uncovertebral spurring narrowing the left intervertebral neural foramen. C5-6: Spurring at the endplates. Narrowed disc height. Normal central canal. Uncovertebral spurs slightly narrowing the right intervertebral neural foramen. C6-7: Spurring at the endplates. Narrowed disc height. Normal central canal and intervertebral neuroforamina. C7-T1: Spurring at the endplates. Grade 1 spondylolisthesis. Narrowed disc height. Normal central canal and intervertebral neuroforamina. Normal visualized soft tissue structures. Right apical interstitial prominence. CT/Spine Cervical without Contras IMPRESSION: Degenerative changes of the cervical spine. Technically limited due to motion artifact. Electronically Signed: Isaias Weldon DO at 12:04 EDT Tel [phone], Service support ,
--- NOTE | 2019-08-14 10:30 | ED.DCSUM_ITS ---
- ER Visit Summary Date of Service: 08/14/19 Chief Complaint: Mental status change, fall History of Present Illness: The patient is a 59 F who is a resident at [facility]. She is very confused and unable to give any history. Per staff there the patient was able to carry on a conversation yesterday when she went to bed at 8 PM. This morning at 6:00 when she woke up she was very confused. She is not able to carry on a conversation. She pushed herself out of the bed onto the floor. It is unknown whether she had a loss of consciousness. Physical Examination: Vitals: Stable. Afebrile. General: Well-nourished and well-developed. Head: Normocephalic atraumatic. Neck: Supple, no lymphadenopathy. No JVD. Nontender. Cardiovascular: Regular rate and rhythm. No murmurs. Respiratory: No respiratory distress. Clear to auscultation bilaterally. Abdominal: Soft, nontender, nondistended, normal bowel sounds. No guarding, rebound, or peritoneal signs. Back: Nontender. Extremities: Nontender, no edema. Dehiscence of the left BKA approximately 6 cm in diameter wound. There is no surrounding erythema. No drainage. No warmth. Skin: Normal color, no rash. Neurologic: Alert and oriented ?1. Moves all extremities well. Psych: Agitated. Test Results: EKG is sinus bradycardia at 56. CBC shows a white count of 24.9, H&H of 9.3 and 30.7, platelets 123, segmented neutrophils 83, lymphocytes of 5. Chem-7 shows a sodium 131,, potassium of 5.4, CO2 18, creatinine 2.5, glucose 169. LFTs show an ALT of 193, AST of 655, alk phos of 663. Lipase is 429. Ammonia is less than 10. UA shows blood and 2+ bacteria. Lactic acid is 2.6. Clinical Impression(s) from Imaging Studies Brain CT 08/14/19 10:23 IMPRESSION: Mild age-related changes of the brain. Electronically Signed: Isaias Weldon DO at 11:57 EDT Tel [phone], Service support , Chest X-Ray 08/14/19 10:23 IMPRESSION: Mild pulmonary interstitial prominence. Electronically Signed: Isaias Weldon DO at 12:06 EDT Tel [phone], Service support , Cervical Spine CT 08/14/19 10:25 IMPRESSION: Degenerative changes of the cervical spine. Technically limited due to motion artifact. Electronically Signed: Isaias Weldon DO at 12:04 EDT Tel [phone], Service support , Humerus X-Ray 08/14/19 10:35 IMPRESSION: No acute bony injury of the humerus. AC separation. Electronically Signed: Isaias Weldon DO at 12:09 EDT Tel [phone], Service support , Emergency Department Course and Treatment: Patient was straight cathed for a UA. She had an IV placed. She was given a 500 cc bolus of normal saline. Patient is very agitated in bed. She is trying to pull herself out of bed. She was given a dose of Geodon IM. Approximately 1 PM the patient abruptly stopped using her right arm. Prior to this she was using her right arm to try her pull herself out of the bed. Assuming that the patient is having a stroke her NIH scale would have been 12 on arrival and 16 after she stopped using her arm. However, she was last known well at 8:00 yesterday so she is not a TPA candidate. The patient was discussed with Dr. Helms, the stroke neurologist from [facility], who agrees the patient is not a candidate for TPA. She is also not a candidate for intra-arterial TPA due to being nonambulatory. Treatment Plan: The patient was discussed with her mother, who is her next of kin, who asked that we do get hospice involved. She was discussed with Dr. Brunson and was given a dose of Rocephin IV. The patient was also discussed with hospice. She had a DNR comfort care only filled out and will be transferred to the hospice facility. Disposition: Transfer to hospice in critical condition. Impression: 1. Confusion, acute. 2. Metastases to liver. 3. Bacteriuria. 4. CVA. 5. Critical care time 45 minutes. This note was generated with [employer] dictation software. It may contain incorrect words, spelling, and punctuation that were not noted in review of the chart prior to signing ED Disposition - Plan for ED Patient: Instructions: ED Stroke Completed Referrals: Pia Newton MD [Primary Care Provider] -
[2019-08-14 10:31] LABS: Absolute Lymphocyte Count 1.15 X10^3/uL (0.83-4.51); Absolute Neutrophil Count 20.6 X10^3/uL (2.0-7.7); Basophil# 0.08 X10^3/uL; Basophil% 0.3 % (0-1); Eosinophils% 0.4 % (0-5); Hematocrit 30.7 % (37-47); Hemoglobin 9.3 g/dL (12.0-15.0); Lymphocyte # 1.15 X10^3/ul (4.0); Lymphocyte % 4.6 % (19-41); Mean Corp Hgb Conc 30.3 g/dL (32-36); Mean Corpuscular Volume 85.8 fL (81-99); Mean Platelet Vol. 9.3 fl (6.2-12.0); Monocyte# 1.75 X10^3/uL; NRBC Flagged by Analyzer 0.6 % (0-5); Neutrophil # 20.61 X10^3/uL (2.7-7.7); POSITIVE DIFFERENTIAL YES; Platelet Count 123 K/mm3 (150-450); RBC Distribution Width CV 18.2 % (11.6-14.6); RBC Distribution Width SD 55.7 fl (35.1-43.9); Red Blood Count 3.58 M/mm3 (4.2-5.4); White Blood Count 24.9 K/mm3 (4.4-11.0)
--- NOTE | 2019-08-14 10:35 | RAD_ITS ---
STUDY: X-RAY - RIGHT HUMERUS REASON FOR EXAM: Female, 59 years old. ALTERED MENTAL STATUS. FALL. BRUISING ON RIGHT ARM TECHNIQUE: 2 view(s) of the humerus. COMPARISON: None. FINDINGS: Normal visualized humerus. There is no demonstrated fracture or osseous destructive process. Widening of the AC joint measuring 19 mm. There is no demonstrated soft tissue abnormality. RAD/Humerus min 2 Views IMPRESSION: No acute bony injury of the humerus. AC separation. Electronically Signed: Isaisa Weldon DO at 12:09 EDT Tel [phone], Service support ,
[2019-08-14 10:46] LABS: International Normalized Ratio 1.7
[2019-08-14 10:47] LABS: Partial Thromboplast Time 31.4 Seconds (24.1-36.2)
[2019-08-14 10:50] LABS: AST(SGOT) 655 U/L (15-37); Alanine Aminotransfer ALT/SGPT 198 U/L (13-56); Albumin, Serum 2.2 g/dL (3.2-5.0); Alkaline Phosphatase 663 U/L (45-117); Anion Gap 10 (5-15); BUN 58 mg/dL (7-18); BUN/Creat Ratio 23.2 RATIO (10-20); Bilirubin, Direct 0.25 mg/dL (0.00-0.30); Calcium,Total 8.9 mg/dL (8.5-10.1); Chloride 103 mmol/L (98-107); EST Glomerular Filtration Rate 21 mL/min (>60); Est Glom Filt Rate - Afr Amer 25 mL/min (>60); Estimated Creatinine Clearance 22.12 ml/min; Globulin 5.2 g/dL (2.2-4.2); Glucose 169 mg/dL (74-106); Lipase 429 U/L (73-393); Potassium 5.4 mmol/L (3.5-5.1); Protein, Total 7.4 g/dL (6.4-8.2); Sodium Level 131 mmol/L (136-145)
[2019-08-14 10:58] LABS: Differential Indicated SCAN CRITERIA MET
[2019-08-14 10:59] LABS: Differential Comment SCANNED
[2019-08-14 11:07] LABS: Ammonia < 10.0 umol/L (11-32)
[2019-08-14 11:08] LABS: Lactic Acid 2.6 mmol/L (0.4-1.9)
[2019-08-14] MEDS: Ziprasidone IM 20 MG/ML VIAL IM (12:16)
[2019-08-14 12:19] LABS: Mucous, Urine 0 SEEN /hpf (<or=2+); Red Blood Cells-Urine 0 SEEN /hpf (0-5); Squamous Epithelial Cells - UA 0 SEEN /hpf (5-10)
[2019-08-14 12:23] LABS: Color, Urine Yellow (Yellow); Glucose, Dipstick Normal (Normal); Ketone-Dipstick Negative (Negative); Leukocyte Esterase-Dipstick Negative /ul (Negative); Nitrite-Dipstick Negative (Negative); Occult Blood-Urine 25 /ul (Negative); Protein-Dipstick 500 mg/dl (Negative); Specific Gravity, Urine 1.015 (1.002-1.030); Urine Bilirubin Dipstick Negative (Negative); Urine Clarity Sl. Cloudy (Clear); Urine Urobilinogen Normal (Normal)
[2019-08-14 12:25] LABS: Bedside Glucose 139 mg/dL (70-110)
[2019-08-14 12:32] LABS: Amorphous Sediment 2+; Bacteria 2+ /hpf (None Seen); White Blood Cells 0-5 SEEN /hpf (0-5)
--- NOTE | 2019-08-14 13:17 | CPS ---
Critical CO2 value of 17.8, Dr. Durán aware.
[2019-08-14] MEDS: Ceftriaxone 1 GM/50 ML BAG IV (13:28)
--- NOTE | 2019-08-14 13:40 | NURSING ---
1330. stroke alert called.
--- NOTE | 2019-08-14 13:52 | EKG12_ITS ---
Test Reason : STROKE ALERT Blood Pressure : / mmHG Vent. Rate : 056 BPM Atrial Rate : 056 BPM P-R Int : 192 ms QRS Dur : 106 ms QT Int : 494 ms P-R-T Axes : -13 031 040 degrees QTc Int : 476 ms Sinus bradycardia Incomplete right bundle branch block Confirmed by TOÑA SKINNER, RODGER ([id number]), production editor BUTCH PATTERSON ([id number]) on 08/17/2019 3:24:16 PM Referred By: HANNA Confirmed By:RODGER DING MD
[2019-08-14 14:05] LABS: Base Excess -11 mmol/L (-2 to +2); Bicarbonate 12.6 mmol/L (22-26); PO2 100 mmHG (75-100); SO2 98 % (95-99); Total Carbon Dioxide 13 mmol/L; pCO2 17.8 mmHg (35-45); pH 7.46 (7.35-7.45)
[2019-08-14 14:09] LABS: Allen Test POS; Blood Gas Specimen Type ART; SITE R RADIAL
[2019-08-14 14:10] LABS: O2 Delivery Device Room Air
--- NOTE | 2019-08-14 14:14 | ED.RN ---
NIH DISCONTINUED PER DR LITTLE ORDERS. HOSPITALIST CONSULTED. HOSPICE CONSULTED AND AWAITING FURTHER ORDERS OR RECOMMENDATIONS. Manjinder JACK, RN [phone]
[2019-08-14 14:39] LABS: Reflex Lactate? Y
[2019-08-14 15:48] LABS: Lactic Acid 2.6 mmol/L (0.4-1.9)
--- NOTE | 2019-08-14 16:16 | ED.RN ---
pt is being discharged to hospice [facility]. report called to genaro pelayo. awaiting transport team. adan oconnor, [phone]
[2019-08-16 11:49] LABS: Pathologist Review Reviewed
== END 2019-08-14 16:46 | disposition home or self-care (01) ==
LOC: ED 12:10
PROVIDERS: Emergency Provider Emergency Medicine; PCP Internal Medicine
DX: R41.0 Disorientation, unspecified (principal); R78.81 Bacteremia; K76.89 Other specified diseases of liver; Z86.73 Personal history of transient ischemic attack (TIA), and cerebral infarction without residual deficits; S43.101A Unspecified dislocation of right acromioclavicular joint, initial encounter; W06.XXXA Fall from bed, initial encounter; Y93.9 Activity, unspecified; Y92.129 Unspecified place in nursing home as the place of occurrence of the external cause; T87.81 Dehiscence of amputation stump; J44.9 Chronic obstructive pulmonary disease, unspecified; E78.00 Pure hypercholesterolemia, unspecified; E11.22 Type 2 diabetes mellitus with diabetic chronic kidney disease; I12.9 Hypertensive chronic kidney disease with stage 1 through stage 4 chronic kidney disease, or unspecified chronic kidney disease; N18.9 Chronic kidney disease, unspecified; F32.9 Major depressive disorder, single episode, unspecified; G47.33 Obstructive sleep apnea (adult) (pediatric); Z79.899 Other long term (current) drug therapy
CPT/HCPCS: 36600; 70450; 71045; 72125; 73060; 80048; 80076; 81001; 82140; 82803; 82962; 83605; 83690; 85025; 85610; 85730; 87040; 87077; 87086; 87088; 87186; 93005; 96361; 96365; 96366; 96372; 99285; J7030; P9612; A4216; J3486